=== PATIENT | male | born 1960 | race Caucasian/White ===

== ENCOUNTER → 2017-09-01 | Outpatient (CLI) | payer BC ==
[~2017-09-01] MED LIST: ALLP100T PO; ATEN25TA PO; LORA0.5T PO
--- NOTE | 2017-09-01 10:15 | Diagnostic Imaging Report ---
EXAMINATION: Upper and lower extremity pressure measurements of ankle/brachial index and pulse volume recording at the ankle. INDICATION: Claudication FINDINGS: The ankle/brachial index on the right side is 1.1, (1.1 PT, and 1.1 DP) and on the left is 1.1 (1.1 PT, and 1.1 DP). Pulse volume recording waveforms no significant abnormality. IMPRESSION: Normal ERASTO, bilaterally. Dictated by: Dictated on workstation # [id number]
--- NOTE | 2017-09-01 13:14 | Diagnostic Imaging Report ---
PROCEDURE: US Bilateral lower extremity arterial. TECHNIQUE: Multiple real-time grayscale images are obtained through both lower extremity arterial systems with color Doppler imaging and color Doppler spectral analysis. INDICATION: Peripheral arterial disease. FINDINGS: Grayscale images demonstrate no significant plaque in the femoropopliteal segments. Triphasic waveforms are demonstrated throughout the lower extremities bilaterally. Color-flow demonstrates patency of the lower extremity arteries from common femoral to posterior tibial and dorsalis pedis bilaterally. Normal range of velocities is seen in these vessels with no evidence of a underlying stenosis. IMPRESSION: Unremarkable exam. Dictated by: Dictated on workstation # [id number]
== END ==
LOC: RAD 08:16
PROVIDERS: ATTEND Internal Medicine
DX: I73.9 Peripheral vascular disease, unspecified (principal)
CPT/HCPCS: 93922; 93925

== ENCOUNTER 2019-05-24 16:00 | Inpatient (IN) | payer BC ==
[~2019-05-24] VITALS: Ht 188 cm; Wt 100.0 kg
[~2019-05-24 16:00] MED LIST changes: +PIPERACILLIN/TAZO 4.5 GM/NS 100 ML IV SCH
[2019-05-24] MEDS ORDERED: NS IV 1000 ML 1,000 ML IV SCH (17:43)
[2019-05-24] MEDS ORDERED: diphenhydrAMINE 25 MG TAB (BENADRYL) PO PRN (17:45)
[2019-05-24] MEDS ORDERED: CALCIUM CARBONATE 500 MG (TUMS) TAB.CHEW PO PRN (17:45)
[2019-05-24] MEDS ORDERED: LOPERAMIDE 2 MG (IMODIUM) TABLET PO PRN (17:45)
[2019-05-24] MEDS ORDERED: IBUPROFEN TABLET 200 MG TAB PO PRN (17:45)
[2019-05-24] MEDS ORDERED: LORazepam INJ 2 MG/ML (ATIVAN) VIAL IV PRN (17:45)
[2019-05-24] MEDS ORDERED: D5 1/2 NS 1000 ML IV SOLUTION 1,000 ML IV PRN (17:45)
[2019-05-24] MEDS ORDERED: fentaNYL INJECTION 100 MCG/2 ML AMP IVP PRN (17:45)
[2019-05-24] MEDS ORDERED: DOCUSATE SODIUM 100 MG (COLACE) CAP PO PRN (17:45)
[2019-05-24] MEDS ORDERED: ONDANSETRON 4 MG/2 ML (SDV) Z0FRAN IVP PRN (17:45)
[2019-05-24] MEDS ORDERED: ANTACID SUSP 30 ML UDC (MYLANTA) PO PRN (17:45)
[2019-05-24] MEDS ORDERED: MELATONIN 3 MG TABLET PO PRN (17:45)
[2019-05-24 17:58] VITALS: BP 158/82
--- NOTE | 2019-05-24 17:58 | NUR ---
KENJI CRAIG II admitted to room 432-1, with an admitting diagnosis of RIGHT GREAT TOES ULCER WITH ABSCESS, CELLULITIS, on 05/24/19 from DIRECT ADMIT via AMBULATORY, accompanied by SELF. KENJI CRAIG II introduced to surroundings, call light, bed controls, phone, TV, temperature control, lights, meal times, smoking policy, visitor policy, side rail policy, bathrooms and showers. Patient Rights given to patient in the handbook. KENJI CRAIG II verbalizes understanding that [facility] is not responsible for the loss or damage to any personal effects or valuables that are kept in the patients possession during their hospitalization. The following Patient Care Plans were discussed with the PATIENT: Discharge Planning, CELLULITIS,SUBSTANCE ABUSE: ALCOHOL, and KNOWLEDGE DEFICIT. KENJI CRAIG II verbalizes understanding of Interdisciplinary Patient Education. Patient and/or family were informed about the Rapid Response Team and its purpose.
[2019-05-24 18:34] LABS: BASOPHILS % (AUTO) 1 % (0-10); EOSINOPHILS # (AUTO) 0.3 10^3/uL (0.0-0.3); EOSINOPHILS % (AUTO) 4 % (0-10); HEMATOCRIT 41 % (40-54); HEMOGLOBIN 14.8 G/DL (13.3-17.7); LYMPHOCYTES # (AUTO) 2.2 X 10^3 (1.0-4.0); LYMPHOCYTES % (AUTO) 33 % (12-44); MEAN CORPUSCULAR HEMOGLOBIN 38 PG (25-34); MEAN CORPUSCULAR HGB CONC 36 G/DL (32-36); MEAN CORPUSCULAR VOLUME 108 FL (80-99); MEAN PLATELET VOLUME 9.5 FL (7.4-10.4); MONOCYTES # (AUTO) 0.7 X 10^3 (0.0-1.0); MONOCYTES % (AUTO) 10 % (0-12); NEUTROPHILS # (AUTO) 3.6 X 10^3 (1.8-7.8); NEUTROPHILS % (AUTO) 53 % (42-75); PLATELET COUNT 246 10^3/uL (130-400); RED CELL DISTRIBUTION WIDTH 15.6 % (10.0-14.5); WHITE BLOOD COUNT 6.7 10^3/uL (4.3-11.0)
[2019-05-24] MEDS: ENOXAPARIN 40 MG/0.4 ML (LOVENOX) SYR SC SCH (18:36)
[2019-05-24 18:54] LABS: ERYTHROCYTE SEDIMENTATION RATE 17 MM/HR (0-30)
[2019-05-24 18:56] LABS: ALANINE AMINOTRANSFERASE 27 U/L (0-55); ALBUMIN 3.6 GM/DL (3.2-4.5); ALKALINE PHOSPHATASE 130 U/L (40-136); BILIRUBIN,TOTAL 0.4 MG/DL (0.1-1.0); BUN/CREATININE RATIO 10; CALCIUM 8.6 MG/DL (8.5-10.1); CARBON DIOXIDE 28 MMOL/L (21-32); CHLORIDE 99 MMOL/L (98-107); CREATININE SERUM 0.59 MG/DL (0.60-1.30); GFR ESTIMATED > 60; GLUCOSE 98 MG/DL (70-105); POTASSIUM 2.8 MMOL/L (3.6-5.0); SODIUM 140 MMOL/L (135-145); TOTAL PROTEIN 6.7 GM/DL (6.4-8.2)
[2019-05-24] MEDS ORDERED: VANCOMYCIN INJECTION 2,250 MG in NS IV 500 ML 500 ML IV NR (19:00)
[2019-05-24 19:12] VITALS: BP 158/82
[2019-05-24] MEDS ORDERED: RT-ALBUTEROL SULF 2.5 MG/3 ML PRE-MIX VIAL INH PRN (19:30)
[2019-05-24] MEDS: PIPERACILLIN/TAZOBACTAM (BULK) 4.5 GM in NS (IVPB) 100 ML IV NR (19:45)
[2019-05-24 19:55] VITALS: BP 164/93
--- NOTE | 2019-05-24 20:53 | Progress Note - Hospitalist ---
Progress Note This is a 58-year-old white male clinic patient of mine for the past 10 years who has a past medical history of alcoholism, hypertension, anxiety and smoking with chronic neuropathy who presented to my clinic after he called for an urgent appointment for a gout attack so labs were drawn prior to appointment and when he arrived I evaluated the right great toe showing a significant ulceration with pustular drainage along with cellulitis of his entire foot spreading up his leg. He was found to be in need of IV antibiotics and Dr. Christie was consulted along with Dr. Gutiérrez for wound care and possible toe abscess respectively. He will be placed on empiric antibiotics provided pain control and he will be on alcohol withdrawal protocol. HARDY CAMPBELL DO May 24, 2019 20:52
[2019-05-24] MEDS: SENNA W/DOCUSATE (SENOKOT S) TABLET PO SCH (21:16)
--- NOTE | 2019-05-24 22:31 | Diagnostic Imaging Report ---
INDICATION: Right great toe ulcerations EXAMINATION: Right foot 05/24/19 FINDINGS: Three views of the foot Diffuse chronic findings seen throughout the foot with spurring along the dorsum of the midfoot. There are no acute fractures or dislocations. IMPRESSION: 1. Chronic findings. No acute osseous abnormality. Dictated by: Dictated on workstation # [id number]
--- NOTE | 2019-05-24 22:42 | Wound Care Assessment ---
Wound Care Assessment Date Seen by Provider: May 24, 2019 Time Seen by Provider: 21:45 Chief Complaint Infected R great toe ulcer. HPI The patient is a 58 year old male, with a long-standing history of neuropathy, and a three week history of ulceration of the R great toe. The [place] It evolved into a ulcer and worsened in the last week. He is a current everyday smoker and has a history of alcohol abuse. He has chronic edema of BLE, but it has worsened on the R. He denies diabetes. Past Medical History: Admits Heart Disease (arhythmia. 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 Review of Systems General: No Chills HEENT: No Visual Changes, No Dysphasia Pulmonary: No Dyspnea, No Cough Cardiovascular: Palpitations (Occasional when stressed.); No: Chest Pain Gastrointestinal: No: Nausea, Vomiting, Abdominal Pain Genitourinary: No Hematuria Musculoskeletal: No: leg pain Neurological: No: Weakness, Numbness Other systems Endocrine: denies diabetes. Integumentary: See HPI. Exam Vital Signs Date Time Temp Pulse Resp B/P (MAP) Pulse Ox O2 Delivery O2 Flow Rate FiO2 05/24/19 20:01 80 05/24/19 19:55 98.8 18 164/93 (116) 98 Room Air 05/24/19 19:12 21 Capillary Refill : General Appearance: WD/WN, no apparent distress HEENT: normal ENT inspection Neck: non-tender; No carotid bruit, No thyromegaly Cardiovascular: regular rate, rhythm, no gallop, no murmur Respiratory: lungs clear, no respiratory distress Gastrointestinal: normal bowel sounds, no organomegaly, distended Extremities: normal range of motion (at ankles), pedal edema (Extending up calf, worse on the R.), other (R great toe ulcer -- 2.8 x 5.3 x 0.2 cm, base 100% slough, full thickness, marked swelling and erythema.) Neurologic/Psychiatric: alert, normal mood/affect, oriented x 3 Skin: other (Hemosiderin staining and spider veins present in a gaiter distribution.) Results Laboratory Tests 05/24/19 18:25: White Blood Count 6.7, Red Blood Count 3.85L, Hemoglobin 14.8, Hematocrit 41, Mean Corpuscular Volume 108H, Mean Corpuscular Hemoglobin 38H, Mean Corpuscular Hemoglobin Concent 36, Red Cell Distribution Width 15.6H, Platelet Count 246, Mean Platelet Volume 9.5, Neutrophils (%) (Auto) 53, Lymphocytes (%) (Auto) 33, Monocytes (%) (Auto) 10, Eosinophils (%) (Auto) 4, Basophils (%) (Auto) 1, Neutrophils # (Auto) 3.6, Lymphocytes # (Auto) 2.2, Monocytes # (Auto) 0.7, Eosinophils # (Auto) 0.3, Basophils # (Auto) 0.0, Erythrocyte Sedimentation Rate 17, Sodium Level 140, Potassium Level 2.8L, Chloride Level 99, Carbon Dioxide Level 28, Anion Gap 13, Blood Urea Nitrogen 6L, Creatinine 0.59L, Estimat Glomerular Filtration Rate > 60, BUN/Creatinine Ratio 10, Glucose Level 98, Lactic Acid Level 2.95*H, Calcium Level 8.6, Corrected Calcium 8.9, Total Bilirubin 0.4, Aspartate Amino Transf (AST/SGOT) 46H, Alanine Aminotransferase (ALT/SGPT) 27, Alkaline Phosphatase 130, C-Reactive Protein High Sensitivity 3.34H, Total Protein 6.7, Albumin 3.6, Serum Alcohol 28H 05/24/19 20:43: Lactic Acid Level 2.00 Assessment/Plan/Dx 1. R great toe ulcer, full thickness. 2. Peripheral neuropathy, dense. 3. Tobacco abuse and dependency. 4. R/O atherosclerotic arterial occlusive disease. 5. History of alcohol abuse. Plan: Segmental arterial testing, Dakin's dressings, elevation for edema. PARVEEN GOEL MD May 24, 2019 22:42
[2019-05-24 23:38] VITALS: BP 151/80
[2019-05-24 23:40] VITALS: BP 151/80
[2019-05-25] MEDS: 1/2 NS IV SOLUTION 1,000 ML IV PRN (00:28)
[2019-05-25] MEDS: NS IV 1000 ML 1,000 ML IV SCH ×2 (00:30→09:48)
[2019-05-25] MEDS: PIPERACILLIN/TAZO 4.5 GM/NS 100 ML IV SCH ×6 (02:13→17:21)
[2019-05-25] MEDS: PIPERACILLIN/TAZOBACTAM (BULK) 4.5 GM in NS (IVPB) 100 ML IV NR (02:13)
[2019-05-25 04:00] VITALS: BP 158/86
[2019-05-25] MEDS: LORazepam 1 MG (ATIVAN) TAB PO PRN ×2 (05:22→14:47)
[2019-05-25 06:09] LABS: BASOPHILS % (AUTO) 1 % (0-10); EOSINOPHILS # (AUTO) 0.2 10^3/uL (0.0-0.3); EOSINOPHILS % (AUTO) 3 % (0-10); HEMATOCRIT 38 % (40-54); HEMOGLOBIN 13.8 G/DL (13.3-17.7); LYMPHOCYTES # (AUTO) 1.4 X 10^3 (1.0-4.0); LYMPHOCYTES % (AUTO) 24 % (12-44); MEAN CORPUSCULAR HEMOGLOBIN 39 PG (25-34); MEAN CORPUSCULAR HGB CONC 37 G/DL (32-36); MEAN CORPUSCULAR VOLUME 107 FL (80-99); MEAN PLATELET VOLUME 9.2 FL (7.4-10.4); MONOCYTES # (AUTO) 0.6 X 10^3 (0.0-1.0); MONOCYTES % (AUTO) 10 % (0-12); NEUTROPHILS # (AUTO) 3.7 X 10^3 (1.8-7.8); NEUTROPHILS % (AUTO) 63 % (42-75); PLATELET COUNT 209 10^3/uL (130-400); RED CELL DISTRIBUTION WIDTH 15.7 % (10.0-14.5)
[2019-05-25 06:39] LABS: ALANINE AMINOTRANSFERASE 22 U/L (0-55); ALBUMIN 3.1 GM/DL (3.2-4.5); ALKALINE PHOSPHATASE 116 U/L (40-136); BILIRUBIN,TOTAL 0.7 MG/DL (0.1-1.0); BUN/CREATININE RATIO 10; CARBON DIOXIDE 26 MMOL/L (21-32); CHLORIDE 104 MMOL/L (98-107); CREATININE SERUM 0.61 MG/DL (0.60-1.30); GFR ESTIMATED > 60; GLUCOSE 103 MG/DL (70-105); POTASSIUM 2.7 MMOL/L (3.6-5.0); SODIUM 142 MMOL/L (135-145); TOTAL PROTEIN 5.9 GM/DL (6.4-8.2)
[2019-05-25] MEDS: VANCOMYCIN 1,750 MG/NS 500 ML IVPB IV SCH ×4 (06:47→18:44)
[2019-05-25 08:00] VITALS: BP 166/87
[2019-05-25] MEDS ORDERED: POTA10TA10 PO (08:13)
[2019-05-25] MEDS ORDERED: LORA0.5T PO ×2 (08:13→08:44)
[2019-05-25] MEDS ORDERED: ATEN25TA PO (08:13)
[2019-05-25] MEDS ORDERED: ALLO100T PO (08:13)
[2019-05-25] MEDS ORDERED: HYDR-3812 PO (08:44)
--- NOTE | 2019-05-25 08:44 | NUR ---
SPOKE WITH THE PATIENT ABOUT HIS MEDICATIONS. WE WENT OVER THE EXT MED HX AND HE VERIFIED HOW HE TAKES THEM. HIS ALLOPURINOL WAS FILLED 100MG BID #60 05-20-19 - HE STATES HE ONLY TAKES 1 DAILY IN AM HIS LORAZEPAM IS FILLED BID, HE STATES HE NORMALLY ONLY TAKES ONE IN THE MORNING, OCCASIONALLY IF NEEDED HE TAKES THE SECOND DOSE LATER IN THE DAY. HE ALSO STATES HE HAS HYDROCODONE ON HAND. HE DOES NOT TAKE IT OFTEN BUT HAS BEEN TAKING IT MORE RECENTLY. ACCORDING TO [facility] HE FILLED 5-325MG #60 FOR A 20 DAY SUPPLY 04-20-18. HE STATES HE DOES NOT TAKE IT MORE THAN TWICE DAILY ON BAD PAIN DAYS.
[2019-05-25] MEDS: DAKIN'S 1/4 STRENGTH (0.125%) 473 ML BTL TOP SCH ×2 (09:48→21:52)
[2019-05-25] MEDS: SENNA W/DOCUSATE (SENOKOT S) TABLET PO SCH ×2 (09:48→21:51)
--- NOTE | 2019-05-25 10:58 | History & Physical-Hospitalist ---
History of Present Illness HPI/Chief Complaint CC: Right great toe ulcer with abscess and cellulitis HPI: This is a 58-year-old white male clinic patient of mine for the past 10 years who has a past medical history of alcoholism, hypertension, anxiety and smoking with chronic neuropathy who presented to my clinic after he called for an urgent appointment for a gout attack so labs were drawn prior to appointment and when he arrived I evaluated the right great toe showing a significant ulceration with pustular drainage along with cellulitis of his entire foot sp reading up his leg. He was found to be in need of IV antibiotics and Dr. Christie was consulted along with Dr. Gutiérrez for wound care and possible toe abscess respectively. He will be placed on empiric antibiotics provided pain control and he will be on alcohol withdrawal protocol. Patient is currently doing much better did have some anxiety early this morning and wanted a cigarette and I did offer nicotine patch but he declined. Overall his right foot and toe is much improved and arterial ultrasound is pending at time of dictation and understands the diagnosis sepsis and the need to continue on IV antibiotics with close monitoring. Source: patient Exam Limitations: no limitations Date Seen 05/25/19 Time Seen by a Provider: 10:00 Attending Physician Romana Martínez DO PCP Romana Martínez DO Referring Physician Date of Admission May 24, 2019 at 16:00 Home Medications & Allergies Home Medications Reviewed patient Home Medication Reconciliation performed by pharmacy medication reconciliations dental laboratory technician apprentice and/or nursing. Patients Allergies have been reviewed. Allergies Allergies Coded Allergies No Known Drug Allergies (Unverified05/24/19) Past Owqyzww-Jgfofd-Tejban Hx Past Med/Social Hx: Reviewed Nursing Past Med/Soc Hx, Reviewed and Corrections made Patient Social History Marrital Status: Employed/Student: employed Alcohol Use: Regular Use Number of Drinks Today: 1 Alcohol Beverage of Choice: Rum Recreational Drug Use: No Smoking Status: Current Everyday Smoker Physical Abuse Screen: No Sexual Abuse: No Recent Foreign Travel: No Contact w/other who traveled: No Recent Hopitalizations: No Recent Infectious Disease Expo: No Seasonal Allergies Seasonal Allergies: Yes Past Medical History Cardiac: Hypertension Neurological: Neuropathy Sexually Transmitted Disease: No HIV/AIDS: No Gastrointestinal: Chronic Diarrhea, Irritable Bowel Musculoskeletal: Gout Hearing Impairment: Hard of Hearing Psychosocial: Anxiety, Depression Family History FH: neuropathy 19 MOTHER Mitral valve prolapse 19 MOTHER Review of Systems Constitutional: see HPI, dizziness, fever, malaise, weakness EENTM: no symptoms reported Respiratory: no symptoms reported Cardiovascular: no symptoms reported Gastrointestinal: no symptoms reported Genitourinary: no symptoms reported Musculoskeletal: joint pain Skin: no symptoms reported Psychiatric/Neurological: Anxiety, Depressed All Other Systems Reviewed Negative Unless Noted: Yes Physical Exam Physical Exam Vital Signs Vital Signs - First Documented 05/24/19 19:12 FiO2 21 Capillary Refill : Height, Weight, BMI Height: 6'2.00" Weight: 219lbs. 0.0oz. 99.940156ay; 28.1 BMI Method:Stated General Appearance: No Apparent Distress, WD/WN, Chronically ill Eyes: Right Eye Normal Inspection, Right Eye PERRL HEENT: PERRL/EOMI, Normal ENT Inspection, Pharynx Normal, Moist Mucous Membr anes Neck: Full Range of Motion, Normal Inspection, Non Tender Respiratory: Chest Non Tender, Lungs Clear, Normal Breath Sounds, No Accessory Muscle Use, No Respiratory Distress Cardiovascular: Regular Rate, Rhythm, No Edema, No Gallop, No JVD, No Murmur, Normal Peripheral Pulses Gastrointestinal: Normal Bowel Sounds, No Organomegaly, No Pulsatile Mass, Non Tender, Soft Back: Normal Inspection, No CVA Tenderness, No Vertebral Tenderness Extremity: Normal Capillary Refill, Normal Inspection, Normal Range of Motion, Non Tender, No Calf Tenderness, No Pedal Edema Neurologic/Psychiatric: Alert, Oriented x3, No Motor/Sensory Deficits, Normal M ood/Affect Skin: Normal Color, Warm/Dry, Other (right foot and toe with ulceration and cellulitis and drainage from toe) Lymphatic: No Adenopathy Results Results/Procedures Labs Laboratory Tests 05/24/19 18:25 05/25/19 06:05 Patient resulted labs reviewed. Assessment/Plan Admission Diagnosis Assessment: Sepsis Right great toe ulceration with abscess and severe cellulitis rising up into the leg Severe neuropathy Alcoholism Smoker with small vessel disease Hypertension Anxiety Plan: Hep-locked IV fluids since sepsis is now cleared Empiric antibiotics Appreciate Dr. Christie and Dr. Gutiérrez Arterial ultrasound Check x-ray Admission Status: Inpatient Order (span 2 midnights) Reason for Inpatient Admission: Severe cellulitis and abscess formation. Are at least 4 days of inpatient treatment Diagnosis/Problems Diagnosis/Problems (1) Sepsis Status: Acute Qualifiers: Sepsis type: sepsis due to unspecified organism Qualified Codes: A41.9 - Sepsis, unspecified organism (2) Cellulitis of right lower leg Status: Acute (3) Abscess of toe, right Status: Acute (4) Hypertension Status: Chronic Qualifiers: Hypertension type: essential hypertension Qualified Codes: I10 - Essential (primary) hypertension (5) Anxiety Status: Chronic (6) Alcoholism Status: Chronic (7) Smoker Status: Chronic (8) Neuropathy Status: Chronic (9) Ulcer of great toe Status: Acute Qualifiers: Laterality: right Non-pressure ulcer stage: with fat layer exposed Quali fied Codes: L97.512 - Non-pressure chronic ulcer of other part of right foot with fat layer exposed Clinical Quality Measures DVT/VTE Risk/Contraindication: Risk Factor Score Per Nursin RFS Level Per Nursing on Admit: 2=Moderate Contraindications-Mechi: Other *list below* Other: cellulitis ROMANA MARTÍNEZ DO May 25, 2019 10:58
--- NOTE | 2019-05-25 11:17 | Diagnostic Imaging Report ---
INDICATION: Right toe ulcer. TECHNIQUE: Grayscale, color-flow and Duplex Doppler evaluation of the right lower extremity arterial system was performed. FINDINGS: There is atherosclerotic plaque throughout the right lower extremity arterial system. Predominantly monophasic waveforms are seen throughout. There is some velocity elevation of the right common femoral artery reaching 249 cm/s. No definite occlusion is seen. There is flow identified at the ankle via the dorsalis pedis and posterior tibial artery. IMPRESSION: Monophasic flow throughout the right lower extremity arterial system. This can be seen with a more proximal lesion. No high-grade stenosis or occlusion is detected. Dictated by: Dictated on workstation # [id number]
[2019-05-25 12:00] VITALS: BP 178/102
--- NOTE | 2019-05-25 13:24 | NUR ---
BP of 187/[address] Martínez, awaiting new orders at this time.
--- OUTSIDE RECORDS SUMMARY | 2019-05-25 13:24 | XMS REPORT | Clinical Summary ---
Author Author [facility] Address Unknown Phone Allergies, Adverse Reactions, Alerts Allergy Name Reaction Description Start Date Severity Status Provider No Known Allergies Kathy Luna Conditions or Problems Problem Name Problem Code Onset Date Status Entry Date Provider Comment Standard Description Annotate POLYARTHRALGIA 719.49 Active Romana Martínez Pain in joint involving multiple sites GOUT 274.9 Active Romana Martínez Gout, unspecified PALPITATIONS, OCCASIONAL 785.1 Active Romana Martínez Palpitations ANXIETY 300.00 Active Romana Martínez Anxiety state, unspecified DIARRHEA, RECURRENT 787.91 Resolved Romana Martínez Diarrhea HYPERHIDROSIS 780.8 Resolved Romana Martínez Generalized hyperhidrosis BURSITIS 727.3 Resolved Romana Martínez Other bursitis disorders KNEE PAIN 719.46 Resolved Romana Martínez Pain in joint involving lower leg HYPERTRIGLYCERIDEMIA 272.1 Active Romana Martínez Pure hyperglyceridemia SCIATICA/HERNIATED DISC 722.10 Active Romana Martínez Displacement of lumbar intervertebral disc without myelopathy ANEMIA, MACROCYTIC, CHRONIC 281.9 Resolved Romana Martínez Unspecified deficiency anemia ALCOHOL ABUSE 305.00 Active Romana Martínez Alcohol abuse, unspecified drinking behavior SMOKER 305.1 Active Romana Martínez Tobacco use disorder HEALTH SCREENING V70.0 Resolved Romana Martínez Routine general medical examination at a health care facility ACNE ROSACEA 695.3 Resolved Romana Martínez Rosacea HEALTH SCREENING V70.0 Inactive Romana Martínez Routine general medical examination at a health care facility HYPOKALEMIA 276.8 Active Romana Martínez Hypopotassemia LIVER FUNCTION TESTS, ABNORMAL 794.8 Active Romana Martínez Nonspecific abnormal results of function study of liver OTITIS MEDIA 382.9 Active Romana Martínez Unspecified otitis media LOSS, 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 Romana Martínez Mixed conductive and sensorineural hearing loss COUGH 786.2 Active Romana Martínez Cough Medication List Medication Instructions Start Date Stop Date Generic Name NDC Status Provider Patient Instruction K-TAB 20 MEQ CR-TABS 1 PO daily POTASSIUM CHLORIDE 95716514208 Active Romana Martínez HYDROCODONE-ACETAMINOPHEN 7.5-325 MG TABS 1 tab po q 4-6 hrs prn HYDROCODONE-ACETAMINOPHEN 74857828360 Active Romana Martínez TEMAZEPAM 15 MG CAPS 1 PO BID prn TEMAZEPAM 20824702250 No Longer Active Romana Martínez VENLAFAXINE HCL 75 MG TABS 1 PO BID VENLAFAXINE HCL 78548995185 No Longer Active Romana Martínez HYDROCODONE-ACETAMINOPHEN 7.5-325 MG TABS 1 PO Q4-6 hrs prn pain HYDROCODONE-ACETAMINOPHEN 61533017648 No Longer Active Romana Martínez METROGEL 1 % GEL Apply to affected areas on face daily as directed METRONIDAZOLE 14224022598 No Longer Active Romana Martínez SOMA 350 MG TAB 1 PO QHS prn CARISOPRODOL 44069710904 No Longer Active Romana Martínez DOXYCYCLINE HYCLATE 100 MG CAP 1 po BID DOXYCYCLINE HYCLATE 10377816485 No Longer Active Romana Martínez SOMA 350 MG TAB 1 PO TID prn pain CARISOPRODOL 95296581582 No Longer Active Romana Martínez ALLOPURINOL 100 MG TABS 1 PO BID ALLOPURINOL 32840714352 Active Romana Martínez COLCHICINE 0.6 MG TAB 1 PO every 2 hours as needed for Gout attack. Maximum 10 tablets per day. COLCHICINE 03596216060 No Longer Active Romana Martínez ULORIC 40 MG TABS 1 PO daily FEBUXOSTAT 47552460487 No Longer Active Romana Martínez MULTIVITAMINS TABS 1 PO daily MULTIPLE VITAMIN 16555636038 Active Romana Martínez LORAZEPAM 0.5 MG TABS 1 PO BID LORAZEPAM 47644125255 Active Rowan Chapa ALLOPURINOL 100 MG TABS 1 PO BID ALLOPURINOL 95335606059 No Longer Active Rowan Chapa ATENOLOL 25 MG TABS 1 PO daily ATENOLOL 87085878648 Active Romana Martínez Vital Signs Date Name Value Unit Range Description blood pressure, diastolic - 8462-4 70 mm[Hg] BP samuel blood pressure, systolic - 8480-6 140 mm[Hg] BP sys pulse rate E&M - 8867-4 60 /min Heart rate respiratory rate E&M - 9279-1 14 /min Resp rate temperature E&M 97.8 [degF] Body temperature weight E&M - 3141-9 190 [lb_av] Weight Measured blood pressure, diastolic - 8462-4 75 mm[Hg] BP samuel blood pressure, systolic - 8480-6 140 mm[Hg] BP sys pulse rate E&M - 8867-4 90 /min Heart rate respiratory rate E&M - 9279-1 14 /min Resp rate temperature E&M 97.2 [degF] Body temperature weight E&M - 3141-9 205 [lb_av] Weight Measured blood pressure, diastolic - 8462-4 80 mm[Hg] BP samuel blood pressure, systolic - 8480-6 134 mm[Hg] BP sys height E&M - 8302-2 74 [in_us] Bdy height pulse rate E&M - 8867-4 80 /min Heart rate respiratory rate E&M - 9279-1 14 /min Resp rate weight E&M - 3141-9 191 [lb_av] Weight Measured Diagnostic Results Date Name Value Unit Range Description Clinical Lists Update: CBC,CMP,FLP - Chemistry albumin, serum 4.3 g/dL potassium, serum 2.9 mmol/L alkaline phosphatase, serum 129 U/L glucose, plasma fasting 102 mg/dL urea nitrogen, blood 8 mg/dL cholesterol/HDL ratio, serum, percent 2.5 calcium, serum 8.7 mg/dL anion gap, serum 11 chloride, serum 100 mmol/L sodium, serum 140 mmol/L cholesterol, serum 130 mg/dL triglyceride, serum, fasting 226 mg/dL carbon dioxide, venous blood 32.0 mmol/L bilirubin, serum, total 1.2 mg/dL creatinine, serum 0.5 mg/dL alanine aminotransferase (SGPT), serum 32 U/L HDL cholesterol, serum 51.0 mg/dL aspartate aminotransferase (SGOT), serum 48 U/L LDL cholesterol, serum 34 mg/dL protein, total, serum 6.9 g/dL Estimated Glomerular Filtration Rate (calc) 177 mL/min/1.73m2 Clinical Lists Update: CBC,CMP,FLP - Hematology hemoglobin, blood 16.4 g/dL hematocrit, blood 49 % platelet count 181 10*3/mm3 erythrocyte (RBC) count 4.39 10*6/mm3 leukocyte count, blood 10.2 10*3/mm3 mean corpuscular volume, RBC 113 fL red blood cell distribution width 14.9 % Clinical Lists Update: CMP,FLP,TSH - Chemistry alanine aminotransferase (SGPT), serum 40 U/L potassium, serum 2.9 mmol/L bilirubin, serum, total 0.7 mg/dL cholesterol, serum 156 mg/dL triglyceride, serum, fasting 239 mg/dL chloride, serum 98 mmol/L sodium, serum 137 mmol/L calcium, serum 9.0 mg/dL anion gap, serum 13 urea nitrogen, blood 13 mg/dL cholesterol/HDL ratio, serum, percent 3.5 alkaline phosphatase, serum 113 U/L glucose, plasma fasting 99 mg/dL albumin, serum 4.2 g/dL Estimated Glomerular Filtration Rate (calc) 170 mL/min/1.73m2 creatinine, serum 0.5 mg/dL aspartate aminotransferase (SGOT), serum 64 U/L HDL cholesterol, serum 45.0 mg/dL thyroid stimulating hormone, serum 1.72 u[iU]/mL protein, total, serum 7.0 g/dL LDL cholesterol, serum 63 mg/dL carbon dioxide, venous blood 29.0 mmol/L Encounters Code Encounter Date Provider Facility CPT-83848 Ofc Vst, Est Level IV 20:22:56 MILLING MACHINE OPERATOR Romana Quiana Mauricio Martínez, DO, FACP CPT-59327 Ofc Vst, Est Level IV 19:32:49 MILLING MACHINE OPERATOR Rmoana Quianaromán Martí[facility] CPT-37195 Ofc Vst, Est Level IV 18:44:46 CDT Romana Quiana Mauricio Martínez, DO, FACP CPT-33868 Ofc Vst, Est Level III 15:59:28 CDT Romanabethel Martínez DO, FACP CPT-13462 Ofc Vst, Est Level III 17:18:17 CDT Romanabethel Martínez DO, FACP CPT-73501 Ofc Vst, Est Level IV 16:44:08 CDT Romanabethel Martínez, DO, FACP CPT-87876 Ofc Vst, Est Level III 14:53:29 CDT Romanabethel Martínez [facility] CPT-03690 Ofc Vst, Est Level IV 11:21:31 MILLING MACHINE OPERATOR Romana Martínez, DO, FACP CPT-10415 Ofc Vst, Est Level IV 11:23:00 CDT Romanabethel Martínez, DO, FACP CPT-12922 Ofc Vst, Est Level IV 16:02:44 CDT Romanabethel Martínez [facility] CPT-18899 Ofc Vst, Est Level IV 16:15:02 CDT Romanabethel Martínez, DO, FACP CPT-46456 Ofc Vst, Est Level IV 10:20:04 CDT Romanabethel Martínez, DO, FACP CPT-83953 Ofc Vst, Est Level IV 16:24:53 [facility] Ofc Vst, New Level IV 16:07:20 CDT [facility] Procedures Code Procedure Name Date Entry Date Standard Description CPT-62254 Preventive, Est, (40-64) 13:45:44 MILLING MACHINE OPERATOR CPT-28871 Preventive, Est, (40-64) 13:14:51 MILLING MACHINE OPERATOR
--- OUTSIDE RECORDS SUMMARY | 2019-05-25 13:24 | XMS REPORT | Clinical Summary ---
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 Romana Martínez Impotence of organic origin Medication List Medication Instructions Start Date Stop Date Generic Name NDC Status Provider Patient Instruction VIAGRA 50 MG TABS 1 PO as directed SILDENAFIL CITRATE 64399162360 Active Romana Martínez K-TAB 20 MEQ CR-TABS 1 PO daily POTASSIUM CHLORIDE 27933583287 Active Romana Martínez HYDROCODONE-ACETAMINOPHEN 7.5-325 MG TABS 1 tab po q 4-6 hrs prn HYDROCODONE-ACETAMINOPHEN 58373267911 Active Romana Martínez TEMAZEPAM 15 MG CAPS 1 PO BID prn TEMAZEPAM 83034146416 No Longer Active Romana Martínez VENLAFAXINE HCL 75 MG TABS 1 PO BID VENLAFAXINE HCL 22995072447 No Longer Active Romana Martínez HYDROCODONE-ACETAMINOPHEN 7.5-325 MG TABS 1 PO Q4-6 hrs prn pain HYDROCODONE-ACETAMINOPHEN 29947546204 No Longer Active Romanabethel Martínez METROGEL 1 % GEL Apply to affected areas on face daily as directed METRONIDAZOLE 51867749223 No Longer Active Romanabethel Martínez SOMA 350 MG TAB 1 PO QHS prn CARISOPRODOL 66485332802 No Longer Active Romana Martínez DOXYCYCLINE HYCLATE 100 MG CAP 1 po BID DOXYCYCLINE HYCLATE 86423930528 No Longer Active Romanabethel Martínez SOMA 350 MG TAB 1 PO TID prn pain CARISOPRODOL 51494080148 No Longer Active Romana Martínez ALLOPURINOL 100 MG TABS 1 PO BID ALLOPURINOL 49744451438 Active Romana Martínez COLCHICINE 0.6 MG TAB 1 PO every 2 hours as needed for Gout attack. Maximum 10 tablets per day. COLCHICINE 79845982645 No Longer Active Romana Martínez ULORIC 40 MG TABS 1 PO daily FEBUXOSTAT 28619791989 No Longer Active Romana Martínez MULTIVITAMINS TABS 1 PO daily MULTIPLE VITAMIN 72995319134 Active Romana Martínez LORAZEPAM 0.5 MG TABS 1 PO BID LORAZEPAM 97966476711 Active Rowan Chapa ALLOPURINOL 100 MG TABS 1 PO BID ALLOPURINOL 47711491472 No Longer Active Rowan Chapa ATENOLOL 25 MG TABS 1 PO daily ATENOLOL 20524924804 Active Romana Martínez Vital Signs Date Name Value Unit Range Description blood pressure, diastolic - 8462-4 70 mm[Hg] BP samuel blood pressure, systolic - 8480-6 130 mm[Hg] BP sys pulse rate E&M - 8867-4 78 /min Heart rate respiratory rate E&M - 9279-1 14 /min Resp rate weight E&M - 3141-9 198 [lb_av] Weight Measured blood pressure, diastolic - 8462-4 70 mm[Hg] [...] Description Clinical Lists Update: CBC,CMP,FLP - Chemistry Estimated Glomerular Filtration Rate (calc) 177 mL/min/1.73m2 albumin, serum 4.3 g/dL cholesterol/HDL ratio, serum, percent 2.5 anion gap, serum 11 sodium, serum 140 mmol/L triglyceride, serum, fasting 226 mg/dL bilirubin, serum, total 1.2 mg/dL alanine aminotransferase (SGPT), serum 32 U/L aspartate aminotransferase (SGOT), serum 48 U/L protein, total, serum 6.9 g/dL potassium, serum 2.9 mmol/L LDL cholesterol, serum 34 mg/dL HDL cholesterol, serum 51.0 mg/dL creatinine, serum 0.5 mg/dL carbon dioxide, venous blood 32.0 mmol/L cholesterol, serum 130 mg/dL chloride, serum 100 mmol/L calcium, serum 8.7 mg/dL urea nitrogen, blood 8 mg/dL alkaline phosphatase, serum 129 U/L glucose, plasma fasting 102 mg/dL Clinical Lists Update: CBC,CMP,FLP - Hematology red blood cell distribution width 14.9 % mean corpuscular volume, RBC 113 fL leukocyte count, blood 10.2 10*3/mm3 erythrocyte (RBC) count 4.39 10*6/mm3 platelet count 181 10*3/mm3 hemoglobin, blood 16.4 g/dL hematocrit, blood 49 % Clinical Lists Update: CMP,Chol,Trig - Chemistry anion gap, serum 10 sodium, serum 137 mmol/L Estimated Glomerular Filtration Rate (calc) 177 mL/min/1.73m2 albumin, serum 4.4 g/dL alkaline phosphatase, serum 130 U/L urea nitrogen, blood 8 mg/dL calcium, serum 9.3 mg/dL chloride, serum 99 mmol/L cholesterol, serum 158 mg/dL carbon dioxide, venous blood 31.0 mmol/L creatinine, serum 0.5 mg/dL potassium, serum 3.4 mmol/L protein, total, serum 7.0 g/dL aspartate aminotransferase (SGOT), serum 91 U/L alanine aminotransferase (SGPT), serum 53 U/L bilirubin, serum, total 1.0 mg/dL triglyceride, serum, fasting 305 mg/dL glucose, plasma fasting 97 mg/dL Clinical Lists Update: CMP,FLP,TSH - Chemistry calcium, serum 9.0 mg/dL urea nitrogen, blood 13 mg/dL alkaline phosphatase, serum 113 U/L chloride, serum 98 mmol/L cholesterol, serum 156 mg/dL carbon dioxide, venous blood 29.0 mmol/L creatinine, serum 0.5 mg/dL HDL cholesterol, serum 45.0 mg/dL thyroid stimulating hormone, serum 1.72 u[iU]/mL LDL cholesterol, serum 63 mg/dL potassium, serum 2.9 mmol/L protein, total, serum 7.0 g/dL aspartate aminotransferase (SGOT), serum 64 U/L alanine aminotransferase (SGPT), serum 40 U/L bilirubin, serum, total 0.7 mg/dL triglyceride, serum, fasting 239 mg/dL sodium, serum 137 mmol/L anion gap, serum 13 cholesterol/HDL ratio, serum, percent 3.5 albumin, serum 4.2 g/dL Estimated Glomerular Filtration Rate (calc) 170 mL/min/1.73m2 glucose, plasma fasting 99 mg/dL Encounters Code Encounter Date Provider Facility CPT-81231 Ofc Vst, Est Level IV 20:22:56 AUTOMOTIVE PAINT TECHNICIAN Romanabethel Mesa Mauricio, DO, FACP CPT-33302 Ofc Vst, Est Level IV 19:32:49 AUTOMOTIVE PAINT TECHNICIAN Romana Martínez [facility] CPT-17361 Ofc Vst, Est Level IV 18:44:46 CDT Romana Quiana Mesa Mauricio, DO, FACP CPT-01689 Ofc Vst, Est Level III 15:59:28 CDT Romana Quiana Mesa Mauricio, DO, FACP CPT-26608 Ofc Vst, Est Level III 17:18:17 CDT Romana Quiana Mesa Mauricio, DO, FACP CPT-48619 Ofc Vst, Est Level IV 16:44:08 CDT Romana Quiana Mesa Mauricio, DO, FACP CPT-20596 Ofc Vst, Est Level III 14:53:29 CDT Romanabethel Martínez [facility] CPT-84810 Ofc Vst, Est Level IV 11:21:31 AUTOMOTIVE PAINT TECHNICIAN Romana Mesa Mauricio, DO, FACP CPT-41389 Ofc Vst, Est Level IV 11:23:00 CDT Romanabethel Mesa Mauricio, DO, FACP CPT-80464 Ofc Vst, Est Level IV 16:02:44 CDT Romanabethel Martínez [facility] CPT-67616 Ofc Vst, Est Level IV 16:15:02 CDT Romanabethel Mesa Mauricio, DO, FACP CPT-91205 Ofc Vst, Est Level IV 10:20:04 CDT Romanabethel Mesa Mauricio, DO, FACP CPT-83634 Ofc Vst, Est Level IV 16:24:53 CDT Romanabethel Martínez [facility] CPT-71847 Ofc Vst, New Level IV 16:07:20 CDT Romana [facility] Procedures Code Procedure Name Date Entry Date Standard Description CPT-33043 Preventive, Est, (40-64) 17:11:22 CDT CPT-81513 Preventive, Est, (40-64) 13:45:44 AUTOMOTIVE PAINT TECHNICIAN CPT-94995 Preventive, Est, (40-64) 13:14:51 AUTOMOTIVE PAINT TECHNICIAN
--- OUTSIDE RECORDS SUMMARY | 2019-05-25 13:24 | XMS REPORT | Clinical Summary ---
Author Author UserRADHA [facility] Address Unknown Phone Allergies, Adverse Reactions, [...] TABS 1 PO as directed SILDENAFIL CITRATE 06378165504 Active Romana Martínez K-TAB 20 MEQ CR-TABS 1 PO daily POTASSIUM CHLORIDE 76310072051 Active Romana Martínez HYDROCODONE-ACETAMINOPHEN 7.5-325 MG TABS 1 tab po q 4-6 hrs prn HYDROCODONE-ACETAMINOPHEN 87918167685 Active Romana Martínez TEMAZEPAM 15 MG CAPS 1 PO BID prn TEMAZEPAM 14118239013 No Longer Active Romana Martínez VENLAFAXINE HCL 75 MG TABS 1 PO BID VENLAFAXINE HCL 67551079293 No Longer Active Romana Martínez HYDROCODONE-ACETAMINOPHEN 7.5-325 MG TABS 1 PO Q4-6 hrs prn pain HYDROCODONE-ACETAMINOPHEN 11148958908 No Longer Active Romanabethel Martínez METROGEL 1 % GEL Apply to affected areas on face daily as directed METRONIDAZOLE 13273677990 No Longer Active Romanabethel Martínez SOMA 350 MG TAB 1 PO QHS prn CARISOPRODOL 80328568615 No Longer Active Romana Martínez DOXYCYCLINE HYCLATE 100 MG CAP 1 po BID DOXYCYCLINE HYCLATE 31670554786 No Longer Active Romanabethel Martínez SOMA 350 MG TAB 1 PO TID prn pain CARISOPRODOL 67041859994 No Longer Active Romana Martínez ALLOPURINOL 100 MG TABS 1 PO BID ALLOPURINOL 09044904361 Active oRmana Martínez COLCHICINE 0.6 MG TAB 1 PO every 2 hours as needed for Gout attack. Maximum 10 tablets per day. COLCHICINE 83223565456 No Longer Active Romana Martínez ULORIC 40 MG TABS 1 PO daily FEBUXOSTAT 07898380315 No Longer Active Roamna Martínez MULTIVITAMINS TABS 1 PO daily MULTIPLE VITAMIN 49321208631 Active Romana Martínez LORAZEPAM 0.5 MG TABS 1 PO BID LORAZEPAM 98227921453 Active Rowan Chapa ALLOPURINOL 100 MG TABS 1 PO BID ALLOPURINOL 47104572858 No Longer Active Rowan Chapa ATENOLOL 25 MG TABS 1 PO daily ATENOLOL 95948020417 Active Romana Martínez Vital Signs Date Name [...] mg/dL Encounters Code Encounter Date Provider Facility CPT-47184 Ofc Vst, Est Level IV 20:22:56 POWDER EXPERT Romanabethel Mesa Mauricio, DO, FACP CPT-21097 Ofc Vst, Est Level IV 19:32:49 POWDER EXPERT Romana Martínez [facility] CPT-48393 Ofc Vst, Est Level IV 18:44:46 CDT Romana Quiana Mesa Mauricio, DO, FACP CPT-92790 Ofc Vst, Est Level III 15:59:28 CDT Romana Quiana Mesa Mauricio, DO, FACP CPT-10845 Ofc Vst, Est Level III 17:18:17 CDT Romana Quiana Mesa Mauricio, DO, FACP CPT-36885 Ofc Vst, Est Level IV 16:44:08 CDT Romana Quiana Mesa Mauricio, DO, FACP CPT-55445 Ofc Vst, Est Level III 14:53:29 CDT Romanabethel Martínez [facility] CPT-57128 Ofc Vst, Est Level IV 11:21:31 POWDER EXPERT Romana Mesa Mauricio, DO, FACP CPT-07243 Ofc Vst, Est Level IV 11:23:00 CDT Romanabethel Mesa Mauricio, DO, FACP CPT-03877 Ofc Vst, Est Level IV 16:02:44 CDT Romanabethel Martínez [facility] CPT-06123 Ofc Vst, Est Level IV 16:15:02 CDT Romanabethel Mesa Mauricio, DO, FACP CPT-95303 Ofc Vst, Est Level IV 10:20:04 CDT Romanabethel eMsa Mauricio, DO, FACP CPT-55530 Ofc Vst, Est Level IV 16:24:53 CDT Romanabethel Martínez [facility] CPT-51338 Ofc Vst, New Level IV 16:07:20 CDT Rom[facility] Procedures Code Procedure Name Date Entry Date Standard Description CPT-34617 Preventive, Est, (40-64) 17:11:22 CDT CPT-51315 Preventive, Est, (40-64) 13:45:44 POWDER EXPERT CPT-29614 Preventive, Est, (40-64) 13:14:51 POWDER EXPERT
--- OUTSIDE RECORDS SUMMARY | 2019-05-25 13:25 | XMS REPORT | Clinical Summary ---
Author Author UserRADHA [place] [facility] Address Unknown Phone Allergies, Adverse Reactions, [...] MEQ CR-TABS 1 PO daily POTASSIUM CHLORIDE 00036907941 Active Romana Martínez HYDROCODONE-ACETAMINOPHEN 7.5-325 MG TABS 1 tab po q 4-6 hrs prn HYDROCODONE-ACETAMINOPHEN 16817084681 Active Romana Martínez TEMAZEPAM 15 MG CAPS 1 PO BID prn TEMAZEPAM 82906524602 No Longer Active Romana Martínez VENLAFAXINE HCL 75 MG TABS 1 PO BID VENLAFAXINE HCL 20472444901 No Longer Active Romana Martínez HYDROCODONE-ACETAMINOPHEN 7.5-325 MG TABS 1 PO Q4-6 hrs prn pain HYDROCODONE-ACETAMINOPHEN 95450892640 No Longer Active Romana Martínez METROGEL 1 % GEL Apply to affected areas on face daily as directed METRONIDAZOLE 36062189664 No Longer Active Romana Martínez SOMA 350 MG TAB 1 PO QHS prn CARISOPRODOL 87320030925 No Longer Active Romana Martínez DOXYCYCLINE HYCLATE 100 MG CAP 1 po BID DOXYCYCLINE HYCLATE 30756614176 No Longer Active Romana Martínez SOMA 350 MG TAB 1 PO TID prn pain CARISOPRODOL 99341948110 No Longer Active Romana Martínez ALLOPURINOL 100 MG TABS 1 PO BID ALLOPURINOL 24998017410 Active Romana Martínez COLCHICINE 0.6 MG TAB 1 PO every 2 hours as needed for Gout attack. Maximum 10 tablets per day. COLCHICINE 34233043811 No Longer Active Romana Martínez ULORIC 40 MG TABS 1 PO daily FEBUXOSTAT 79917848828 No Longer Active Romana Martínez MULTIVITAMINS TABS 1 PO daily MULTIPLE VITAMIN 12291566007 Active Romana Martínez LORAZEPAM 0.5 MG TABS 1 PO BID LORAZEPAM 66765388644 Active Rowan Chapa ALLOPURINOL 100 MG TABS 1 PO BID ALLOPURINOL 96665812843 No Longer Active Rowan Chapa ATENOLOL 25 MG TABS 1 PO daily ATENOLOL 10538121304 Active Romana Martínez Vital Signs Date Name [...] mg/dL Encounters Code Encounter Date Provider Facility CPT-51552 Ofc Vst, Est Level IV 20:22:56 TRAVEL REGISTERED NURSE NICU Romana Martínez DO, FACP CPT-87117 Ofc Vst, Est Level IV 19:32:49 TRAVEL REGISTERED NURSE NICU Romana Martínez [facility] CPT-60376 Ofc Vst, Est Level IV 18:44:46 CDT Romana Martínez DO, FACP CPT-17580 Ofc Vst, Est Level III 15:59:28 CDT Romana Martínez DO, FACP CPT-64046 Ofc Vst, Est Level III 17:18:17 CDT Romana Martínez DO, FACP CPT-88711 Ofc Vst, Est Level IV 16:44:08 CDT Romanabethel Mesa Mauricio, DO, FACP CPT-90780 Ofc Vst, Est Level III 14:53:29 CDT Romana Quiana Martínez [facility] CPT-02484 Ofc Vst, Est Level IV 11:21:31 TRAVEL REGISTERED NURSE NICU Romanabethel Mesa Mauricio, DO, FACP CPT-58666 Ofc Vst, Est Level IV 11:23:00 CDT Romanabethel Mesa Mauricio, DO, FACP CPT-97545 Ofc Vst, Est Level IV 16:02:44 CDT [facility] Quiana Martínez [place] CPT-87634 Ofc Vst, Est Level IV 16:15:02 CDT Romanabethel Mesa Mauricio, DO, FACP CPT-09764 Ofc Vst, Est Level IV 10:20:04 CDT Romana Quiana Mesa Mauricio, DO, FACP CPT-70772 Ofc Vst, Est Level IV 16:24:53 CDT [facility] Quiana Martínez [facility] CPT-80410 Ofc Vst, New Level IV 16:07:20 CDT [facility] Quiana Martínez [place] Procedures Code Procedure Name Date Entry Date Standard Description CPT-06863 Preventive, Est, (40-64) 13:45:44 TRAVEL REGISTERED NURSE NICU CPT-32700 Preventive, Est, (40-64) 13:14:51 TRAVEL REGISTERED NURSE NICU
--- OUTSIDE RECORDS SUMMARY | 2019-05-25 13:25 | XMS REPORT | Clinical Summary ---
Author Author UserRADHA [place] [facility] Address Unknown Phone Allergies, Adverse Reactions, [...] MEQ CR-TABS 1 PO daily POTASSIUM CHLORIDE 80388515128 Active Romana Martínez HYDROCODONE-ACETAMINOPHEN 7.5-325 MG TABS 1 tab po q 4-6 hrs prn HYDROCODONE-ACETAMINOPHEN 02402810955 Active Romana Martínez TEMAZEPAM 15 MG CAPS 1 PO BID prn TEMAZEPAM 04099388919 No Longer Active Romana Martínez VENLAFAXINE HCL 75 MG TABS 1 PO BID VENLAFAXINE HCL 53921057469 No Longer Active Romana Martínez HYDROCODONE-ACETAMINOPHEN 7.5-325 MG TABS 1 PO Q4-6 hrs prn pain HYDROCODONE-ACETAMINOPHEN 99958713515 No Longer Active Romana Martínez METROGEL 1 % GEL Apply to affected areas on face daily as directed METRONIDAZOLE 21856148712 No Longer Active Romana Martínez SOMA 350 MG TAB 1 PO QHS prn CARISOPRODOL 09927146805 No Longer Active Romana Martínez DOXYCYCLINE HYCLATE 100 MG CAP 1 po BID DOXYCYCLINE HYCLATE 99513712906 No Longer Active Romana Martínez SOMA 350 MG TAB 1 PO TID prn pain CARISOPRODOL 04037751925 No Longer Active Romana Martínez ALLOPURINOL 100 MG TABS 1 PO BID ALLOPURINOL 56287772756 Active Romana Martínez COLCHICINE 0.6 MG TAB 1 PO every 2 hours as needed for Gout attack. Maximum 10 tablets per day. COLCHICINE 11124939536 No Longer Active Romana Martínez ULORIC 40 MG TABS 1 PO daily FEBUXOSTAT 14905533881 No Longer Active Romana Martínez MULTIVITAMINS TABS 1 PO daily MULTIPLE VITAMIN 47449330872 Active Romana Martínez LORAZEPAM 0.5 MG TABS 1 PO BID LORAZEPAM 36738651119 Active Rowan Chapa ALLOPURINOL 100 MG TABS 1 PO BID ALLOPURINOL 25007143907 No Longer Active Rowan Chapa ATENOLOL 25 MG TABS 1 PO daily ATENOLOL 67339010095 Active Romana Martínez Vital Signs Date Name [...] mmol/L Encounters Code Encounter Date Provider Facility CPT-63257 Ofc Vst, Est Level IV 20:22:56 SENIOR SOFTWARE TEST ENGINEER Romana Quiana Mauricio Martínez, DO, FACP CPT-49325 Ofc Vst, Est Level IV 19:32:49 SENIOR SOFTWARE TEST ENGINEER Romana Quianaromán Martínez [facility] CPT-18567 Ofc Vst, Est Level IV 18:44:46 CDT Romana Quiana Mauricio Martínez, DO, FACP CPT-62273 Ofc Vst, Est Level III 15:59:28 CDT Romanabethel Martínez DO, FACP CPT-96498 Ofc Vst, Est Level III 17:18:17 CDT Romanabethel Martínez DO, FACP CPT-84094 Ofc Vst, Est Level IV 16:44:08 CDT Romanabethel Martínez, DO, FACP CPT-47889 Ofc Vst, Est Level III 14:53:29 CDT Romanabethel Martínez [facility] CPT-90746 Ofc Vst, Est Level IV 11:21:31 SENIOR SOFTWARE TEST ENGINEER Romana Martínez, DO, FACP CPT-05499 Ofc Vst, Est Level IV 11:23:00 CDT Romanabethel Martínez, DO, FACP CPT-99644 Ofc Vst, Est Level IV 16:02:44 CDT Romanabethel Martínez [facility] CPT-28134 Ofc Vst, Est Level IV 16:15:02 CDT Romanabethel Martínez, DO, FACP CPT-84280 Ofc Vst, Est Level IV 10:20:04 CDT Romanabethel Martínez, DO, FACP CPT-20768 Ofc Vst, Est Level IV 16:24:53 [facility] C[facility]-91503 Ofc Vst, New Level IV 16:07:20 CDT [facility] Procedures Code Procedure Name Date Entry Date Standard Description CPT-23558 Preventive, Est, (40-64) 13:45:44 SENIOR SOFTWARE TEST ENGINEER CPT-86124 Preventive, Est, (40-64) 13:14:51 SENIOR SOFTWARE TEST ENGINEER
--- OUTSIDE RECORDS SUMMARY | 2019-05-25 13:25 | XMS REPORT | Clinical Summary ---
Author Author UserRADHA [place] [facility] Address Unknown Phone Allergies, Adverse Reactions, [...] MEQ CR-TABS 1 PO daily POTASSIUM CHLORIDE 61614835520 Active Romana Martínez HYDROCODONE-ACETAMINOPHEN 7.5-325 MG TABS 1 tab po q 4-6 hrs prn HYDROCODONE-ACETAMINOPHEN 74993540878 Active Romana Martínez TEMAZEPAM 15 MG CAPS 1 PO BID prn TEMAZEPAM 09017837793 No Longer Active Romana Martínez VENLAFAXINE HCL 75 MG TABS 1 PO BID VENLAFAXINE HCL 49118728382 No Longer Active Romana Martínez HYDROCODONE-ACETAMINOPHEN 7.5-325 MG TABS 1 PO Q4-6 hrs prn pain HYDROCODONE-ACETAMINOPHEN 22670438326 No Longer Active Romana Martínez METROGEL 1 % GEL Apply to affected areas on face daily as directed METRONIDAZOLE 93880502567 No Longer Active Romana Martínez SOMA 350 MG TAB 1 PO QHS prn CARISOPRODOL 80337657397 No Longer Active Romana Martínez DOXYCYCLINE HYCLATE 100 MG CAP 1 po BID DOXYCYCLINE HYCLATE 16421399232 No Longer Active Romana Martínez SOMA 350 MG TAB 1 PO TID prn pain CARISOPRODOL 85850967676 No Longer Active Romana Martínez ALLOPURINOL 100 MG TABS 1 PO BID ALLOPURINOL 57623107716 Active Romana Martínez COLCHICINE 0.6 MG TAB 1 PO every 2 hours as needed for Gout attack. Maximum 10 tablets per day. COLCHICINE 21215148570 No Longer Active Romana Martínez ULORIC 40 MG TABS 1 PO daily FEBUXOSTAT 83901367906 No Longer Active Romana Martínez MULTIVITAMINS TABS 1 PO daily MULTIPLE VITAMIN 00035130877 Active Romana Martínez LORAZEPAM 0.5 MG TABS 1 PO BID LORAZEPAM 69841134942 Active Rowan Chapa ALLOPURINOL 100 MG TABS 1 PO BID ALLOPURINOL 23805077927 No Longer Active Rowan Chapa ATENOLOL 25 MG TABS 1 PO daily ATENOLOL 82904288841 Active Romana Martínez Vital Signs Date Name [...] mmol/L Encounters Code Encounter Date Provider Facility CPT-60861 Ofc Vst, Est Level IV 20:22:56 PATIENT ACCOUNTS MANAGER Romana Quiana Mauricio Martínez, DO, FACP CPT-78767 Ofc Vst, Est Level IV 19:32:49 PATIENT ACCOUNTS MANAGER Romana Quianaromán Martínez [facility] CPT-92325 Ofc Vst, Est Level IV 18:44:46 CDT Romana Quiana Mauricio Martínez, DO, FACP CPT-89141 Ofc Vst, Est Level III 15:59:28 CDT Romanabethel Martínez DO, FACP CPT-24749 Ofc Vst, Est Level III 17:18:17 CDT Romanabethel Martínez DO, FACP CPT-20889 Ofc Vst, Est Level IV 16:44:08 CDT Romanabethel Martínez, DO, FACP CPT-31381 Ofc Vst, Est Level III 14:53:29 CDT Romanabethel Martínez [facility] CPT-61223 Ofc Vst, Est Level IV 11:21:31 PATIENT ACCOUNTS MANAGER Romana Martínez, DO, FACP CPT-72254 Ofc Vst, Est Level IV 11:23:00 CDT Romanabethel Martínez, DO, FACP CPT-90680 Ofc Vst, Est Level IV 16:02:44 CDT Romanabethel Martínez [facility] CPT-93842 Ofc Vst, Est Level IV 16:15:02 CDT Romanabethel Martínez, DO, FACP CPT-52294 Ofc Vst, Est Level IV 10:20:04 CDT Romanabethel Martínez, DO, FACP CPT-18175 Ofc Vst, Est Level IV 16:24:53 CDT [facility] CPT-39093 Ofc Vst, New Level IV 16:07:20 CDT [facility] Procedures Code Procedure Name Date Entry Date Standard Description CPT-74143 Preventive, Est, (40-64) 13:45:44 PATIENT ACCOUNTS MANAGER CPT-32006 Preventive, Est, (40-64) 13:14:51 PATIENT ACCOUNTS MANAGER
--- OUTSIDE RECORDS SUMMARY | 2019-05-25 13:26 | XMS REPORT | Clinical Summary ---
Author Author UserRADHA [facility] Address Unknown Phone Allergies, Adverse Reactions, [...] MEQ CR-TABS 1 PO daily POTASSIUM CHLORIDE 52182195285 Active Romana Martínez HYDROCODONE-ACETAMINOPHEN 7.5-325 MG TABS 1 tab po q 4-6 hrs prn HYDROCODONE-ACETAMINOPHEN 92372387707 Active Romana Martínez TEMAZEPAM 15 MG CAPS 1 PO BID prn TEMAZEPAM 62040710826 No Longer Active Romana Martínez VENLAFAXINE HCL 75 MG TABS 1 PO BID VENLAFAXINE HCL 86178723189 No Longer Active Romana Martínez HYDROCODONE-ACETAMINOPHEN 7.5-325 MG TABS 1 PO Q4-6 hrs prn pain HYDROCODONE-ACETAMINOPHEN 66228582289 No Longer Active Romana Martínez METROGEL 1 % GEL Apply to affected areas on face daily as directed METRONIDAZOLE 00175197378 No Longer Active Romana Martínez SOMA 350 MG TAB 1 PO QHS prn CARISOPRODOL 04058651589 No Longer Active Romana Martínez DOXYCYCLINE HYCLATE 100 MG CAP 1 po BID DOXYCYCLINE HYCLATE 76724330093 No Longer Active Romana Martínez SOMA 350 MG TAB 1 PO TID prn pain CARISOPRODOL 98977851753 No Longer Active Romana Martínez ALLOPURINOL 100 MG TABS 1 PO BID ALLOPURINOL 38151901439 Active Romana Martínez COLCHICINE 0.6 MG TAB 1 PO every 2 hours as needed for Gout attack. Maximum 10 tablets per day. COLCHICINE 25579548739 No Longer Active Romana Martínez ULORIC 40 MG TABS 1 PO daily FEBUXOSTAT 77309828471 No Longer Active Romana Martínez MULTIVITAMINS TABS 1 PO daily MULTIPLE VITAMIN 31934613526 Active Romana Martínez LORAZEPAM 0.5 MG TABS 1 PO BID LORAZEPAM 53136971927 Active Rowan Chapa ALLOPURINOL 100 MG TABS 1 PO BID ALLOPURINOL 05974632368 No Longer Active Rowan Chapa ATENOLOL 25 MG TABS 1 PO daily ATENOLOL 78554400711 Active Romana Martínez Vital Signs Date Name [...] mmol/L Encounters Code Encounter Date Provider Facility CPT-66983 Ofc Vst, Est Level IV 20:22:56 AQUACULTURE WORKER Romana Quiana Mauricio Martínez, DO, FACP CPT-41301 Ofc Vst, Est Level IV 19:32:49 AQUACULTURE WORKER Romana Quianaromán Martí[facility] CPT-32408 Ofc Vst, Est Level IV 18:44:46 CDT Romana Quiana Mauricio Martínez, DO, FACP CPT-86388 Ofc Vst, Est Level III 15:59:28 CDT Romanabethel Martínez DO, FACP CPT-45430 Ofc Vst, Est Level III 17:18:17 CDT Romanabethel Martínez DO, FACP CPT-12393 Ofc Vst, Est Level IV 16:44:08 CDT Romanabethel Martínez, DO, FACP CPT-84022 Ofc Vst, Est Level III 14:53:29 CDT Romanabethel Martínez [facility] CPT-93155 Ofc Vst, Est Level IV 11:21:31 AQUACULTURE WORKER Romana Martínez, DO, FACP CPT-33387 Ofc Vst, Est Level IV 11:23:00 CDT Romanabethel Martínez, DO, FACP CPT-62402 Ofc Vst, Est Level IV 16:02:44 CDT Romanabethel Martínez [facility] CPT-57863 Ofc Vst, Est Level IV 16:15:02 CDT Romanabethel Martínez, DO, FACP CPT-15948 Ofc Vst, Est Level IV 10:20:04 CDT Romanabethel Martínez, DO, FACP CPT-82095 Ofc Vst, Est Level IV 16:24:53 CDT [facility] CPT-19327 Ofc Vst, New Level IV 16:07:20 CDT [facility] Procedures Code Procedure Name Date Entry Date Standard Description CPT-58208 Preventive, Est, (40-64) 13:45:44 [employer] WORK[employer] CPT-28465 Preventive, Est, (40-64) 13:14:51 AQUACULTURE WORKER
--- OUTSIDE RECORDS SUMMARY | 2019-05-25 13:26 | XMS REPORT | Clinical Summary ---
Author Author [facility]RAD[facility] [place] [facility] Address Unknown Phone Allergies, Adverse Reactions, [...] MEQ CR-TABS 1 PO daily POTASSIUM CHLORIDE 11080720175 Active Romana Martínez HYDROCODONE-ACETAMINOPHEN 7.5-325 MG TABS 1 tab po q 4-6 hrs prn HYDROCODONE-ACETAMINOPHEN 82015482076 Active Romana Martínez TEMAZEPAM 15 MG CAPS 1 PO BID prn TEMAZEPAM [id number] No Longer Active Romana Martínez VENLAFAXINE HCL 75 MG TABS 1 PO BID VENLAFAXINE HCL [id number] No Longer Active Romana Martínez HYDROCODONE-ACETAMINOPHEN 7.5-325 MG TABS 1 PO Q4-6 hrs prn pain HYDROCODONE-ACETAMINOPHEN 23325197921 No Longer Active Romana Martínez METROGEL 1 % GEL Apply to affected areas on face daily as directed METRONIDAZOLE [id number] No Longer Active Romana Martínez SOMA 350 MG TAB 1 PO QHS prn CARISOPRODOL 88215979042 No Longer Active Romana Martínez DOXYCYCLINE HYCLATE 100 MG CAP 1 po BID DOXYCYCLINE HYCLATE 71458850946 No Longer Active Romana Martínez SOMA 350 MG TAB 1 PO TID prn pain CARISOPRODOL 37777410591 No Longer Active Romana Martínez ALLOPURINOL 100 MG TABS 1 PO BID ALLOPURINOL 39690606619 Active Romana Martínez COLCHICINE 0.6 MG TAB 1 PO every 2 hours as needed for Gout attack. Maximum 10 tablets per day. COLCHICINE 53376614645 No Longer Active Romana Martínez ULORIC 40 MG TABS 1 PO daily FEBUXOSTAT 27610104771 No Longer Active Romana Martíenz MULTIVITAMINS TABS 1 PO daily MULTIPLE VITAMIN 39759612938 Active Romana Martínez LORAZEPAM 0.5 MG TABS 1 PO BID LORAZEPAM 80698222552 Active Rowan Chapa ALLOPURINOL 100 MG TABS 1 PO BID ALLOPURINOL [id number] No Longer Active Rowan Chapa ATENOLOL 25 MG TABS 1 PO daily ATENOLOL 93915717659 Active Romana Martínez Vital Signs Date Name [...] mmol/L Encounters Code Encounter Date Provider Facility CPT-58795 Ofc Vst, Est Level IV 20:22:56 [facility] Romana Quiana Mauricio Martínez, DO, FACP CPT-89166 Ofc Vst, Est Level IV 19:32:49 [facility] Romana Quianaromán Mart[facility] CPT-46313 Ofc Vst, Est Level IV 18:44:46 CDT Romana Quiana Mauricio Martínez, DO, FACP CPT-41895 Ofc Vst, Est Level III 15:59:28 CDT Romanabethel Martínez DO, FACP CPT-26523 Ofc Vst, Est Level III 17:18:17 CDT Romanabethel Martínez DO, FACP CPT-10231 Ofc Vst, Est Level IV 16:44:08 CDT Romanabethel Martínez, DO, FACP CPT-43074 Ofc Vst, Est Level III 14:53:29 CDT Romanabethel Martínez [facility] CPT-39068 Ofc Vst, Est Level IV 11:21:31 [facility] [employer] Romana Martínez, DO, FACP CPT-62616 Ofc Vst, Est Level IV 11:23:00 CDT Romanabethel Martínez, DO, FACP CPT-36775 Ofc Vst, Est Level IV 16:02:44 CDT Romanabethel Martínez [facility] CPT-16764 Ofc Vst, Est Level IV 16:15:02 CDT Romanabethel Martínez, DO, FACP CPT-20944 Ofc Vst, Est Level IV 10:20:04 CDT Romanabethel Martínez, DO, FACP CPT-92086 Ofc Vst, Est Level IV 16:24:53 CDT [facility] Ofc Vst, New Level IV 16:07:20 CDT [facility] Procedures Code Procedure Name Date Entry Date Standard Description CPT-36437 Preventive, Est, (40-64) 13:45:44 [facility] CPT-86481 Preventive, Est, (40-64) 13:14:51 [employer]
[2019-05-25] MEDS ORDERED: amLODIPine 5 MG (NORVASC) TAB PO ONE (13:30)
[2019-05-25 16:50] VITALS: BP 198/96
[2019-05-25] MEDS: cloNIDine 0.1 MG (CATAPRES) TAB PO PRN (17:01)
[2019-05-25] MEDS: ENOXAPARIN 40 MG/0.4 ML (LOVENOX) SYR SC SCH (17:49)
--- NOTE | 2019-05-25 17:54 | Consultation - Surgery ---
History of Present Illness History of Present Illness Patient Consulted On(ray/time) 05/25/19 17:49 Time Seen by Provider: 16:58 History of Present Illness Surgery asked to consult regarding right toe, foot and ankle cellulitis. HPI per IM: This is a 58-year-old white male clinic patient of mine for the past 10 years who has a past medical history of alcoholism, hypertension, anxiety and smoking with chronic neuropathy who presented to my clinic after he called for an urgent appointment for a gout attack so labs were drawn prior to appointment and when he arrived I evaluated the right great toe showing a significant ulceration with pustular drainage along with cellulitis of his entire foot spreading up his leg. He was found to be in need of IV antibiotics and Dr. Christie was consulted along with Dr. Gutiérrez for wound care and possible toe abscess respectively. He will be placed on empiric antibiotics provided pain control and he will be on alcohol withdrawal protocol. Patient is currently doing much better did have some anxiety early this morning and wanted a cigarette and I did offer nicotine patch but he declined. Overall his right foot and toe is much improved and arterial ultrasound is pending at time of dictation and understands the diagnosis sepsis and the need to continue on IV antibiotics with close monitoring. When I spoke to pt this evening he states he thinks this all started "when I cut my toe". He states he has neuropathy (denies DM) and didn't even know he had hurt his toe. He states the pain has gotten worse over the past couple of days and the swelling and redness are not any better. He denies having something like this before. Rating the pain as minimal because he doesn't feel much in his feet. Allergies and Home Medications Allergies Coded Allergies: No Known Drug Allergies (Unverified , 05/24/19) Home Medications Allopurinol 100 Mg Tablet, 100 MG PO DAILY, (Reported) Atenolol 25 Mg Tablet, 25 MG PO DAILY, (Reported) Hydrocodone/Acetaminophen 1 Each Tablet, 1 TAB PO BID PRN for PAIN-MODERATE, (Reported) Lorazepam 0.5 Mg Tablet, 0.5 MG PO DAILY, (Reported) Lorazepam 0.5 Mg Tablet, 0.5 MG PO HS PRN for ANXIETY, (Reported) Potassium Chloride 10 Meq Tablet.er, 10 MEQ PO DAILY, (Reported) Patient Home Medication List Home Medication List Reviewed: Yes Past Spcxsvo-Pyvazl-Acphwo Hx Patient Social History Alcohol Use: Regular Use Number of Drinks Today: 1 Recreational Drug Use: No Smoking Status: Current Everyday Smoker Recent Foreign Travel: No Contact w/Someone Who Travel: No Recent Infectious Disease Expo: No Recent Hopitalizations: No Physical Abuse Screen: No Sexual Abuse: No Seasonal Allergies Seasonal Allergies: Yes Surgeries History of Surgeries: Yes (20 YEARS AGO TUMOR REMOVED ( NON CANCER ) ON BLADDER) Respiratory History of Respiratory Disorde: No Cardiovascular History of Cardiac Disorders: Yes (MITRAL VALVE PROLAPSE) Cardiac Disorders: Hypertension Neurological History of Neurological Disord: Yes Neurological Disorders: Neuropathy Reproductive System Sexually Transmitted Disease: No HIV/AIDS: No Genitourinary History of Genitourinary Disor: No Gastrointestinal History of Gastrointestinal Di: Yes (IBS) Gastrointestinal Disorders: Chronic Diarrhea, Irritable Bowel Musculoskeletal History of Musculoskeletal Dis: Yes Musculoskeletal Disorders: Gout Endocrine History of Endocrine Disorders: No HEENT History of HEENT Disorders: Yes Hearing Impairment: Hard of Hearing Cancer History of Cancer: No Psychosocial History of Psychiatric Problem: Yes Behavioral Health Disorders: Anxiety, Depression Integumentary History of Skin or Integumenta: Yes (CUT RIGHT GREAT TOE) Family Medical History Significant Family History: 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/Hx (Mother has Atrial fibrillation) Family Medial History: FH: neuropathy 19 MOTHER Mitral valve prolapse 19 MOTHER Review of Systems-General Constitutional: chills, diaphoresis, malaise EENTM: No blurred vision, No double vision, No mouth pain, No mouth swelling, No epistaxis Respiratory: No cough, No dyspnea on exertion Cardiovascular: No chest pain, No edema, No palpitations Gastrointestinal: No abdominal pain, No melena, No nausea, No vomiting Genitourinary: No dysuria, No frequency, No hematuria Musculoskeletal: gout, joint pain, joint swelling, muscle stiffness Skin: change in color; No change in hair/nails, No hx of skin cancer Psychiatric/Neurological: Anxiety, Depressed; Denies Seizure, Denies Tremors Other pt denies any hx of abnormal bleeding or bruising Physical Exam-General Problems Physical Exam Vital Signs Vital Signs - First Documented 05/24/19 19:12 FiO2 21 Capillary Refill : General Appearance: WD/WN, mild distress Eyes: Bilateral Eye PERRL, Bilateral Eye EOMI HEENT: pharynx normal; No scleral icterus (R), No scleral icterus (L) Neck: non-tender, full range of motion Respiratory: chest non-tender, lungs clear, normal breath sounds, no respiratory distress, no accessory muscle use Cardiovascular: regular rate, rhythm, no murmur Gastrointestinal: normal bowel sounds, non tender, soft, no organomegaly, no pulsatile mass Back: no CVA tenderness, no vertebral tenderness Extremities: no calf tenderness, swelling (bilaterally), other (right lower extremity has erythema from knee down, very warm, with edema and tenderness. Right toe has skin, area of brownish tissue (probably necrotic)) Skin: normal color, warm/dry Lymphatic: no adenopathy (neck, axilla and groin) Data Review Labs Laboratory Tests 05/24/19 18:25: White Blood Count 6.7, Red Blood Count 3.85L, Hemoglobin 14.8, Hematocrit 41, Mean Corpuscular Volume 108H, Mean Corpuscular Hemoglobin 38H, Mean Corpuscular Hemoglobin Concent 36, Red Cell Distribution Width 15.6H, Platelet Count 246, Mean Platelet Volume 9.5, Neutrophils (%) (Auto) 53, Lymphocytes (%) (Auto) 33, Monocytes (%) (Auto) 10, Eosinophils (%) (Auto) 4, Basophils (%) (Auto) 1, Neutrophils # (Auto) 3.6, Lymphocytes # (Auto) 2.2, Monocytes # (Auto) 0.7, Eosinophils # (Auto) 0.3, Basophils # (Auto) 0.0, Erythrocyte Sedimentation Rate 17, Sodium Level 140, Potassium Level 2.8L, Chloride Level 99, Carbon Dioxide Level 28, Anion Gap 13, Blood Urea Nitrogen 6L, Creatinine 0.59L, Estimat Glomerular Filtration Rate > 60, BUN/Creatinine Ratio 10, Glucose Level 98, Lactic Acid Level 2.95*H, Calcium Level 8.6, Corrected Calcium 8.9, Total Bilirubin 0.4, Aspartate Amino Transf (AST/SGOT) 46H, Alanine Aminotransferase (ALT/SGPT) 27, Alkaline Phosphatase 130, C-Reactive Protein High Sensitivity 3.34H, Total Protein 6.7, Albumin 3.6, Serum Alcohol 28H 05/24/19 20:43: Lactic Acid Level 2.00 05/25/19 06:05: White Blood Count 6.0, Red Blood Count 3.52L, Hemoglobin 13.8, Hematocrit 38L, Mean Corpuscular Volume 107H, Mean Corpuscular Hemoglobin 39H, Mean Corpuscular Hemoglobin Concent 37H, Red Cell Distribution Width 15.7H, Platelet Count 209, Mean Platelet Volume 9.2, Neutrophils (%) (Auto) 63, Lymphocytes (%) (Auto) 24, Monocytes (%) (Auto) 10, Eosinophils (%) (Auto) 3, Basophils (%) (Auto) 1, Neutrophils # (Auto) 3.7, Lymphocytes # (Auto) 1.4, Monocytes # (Auto) 0.6, Eosinophils # (Auto) 0.2, Basophils # (Auto) 0.0, Sodium Level 142, Potassium Level 2.7L, Chloride Level 104, Carbon Dioxide Level 26, Anion Gap 12, Blood Urea Nitrogen 6L, Creatinine 0.61, Estimat Glomerular Filtration Rate > 60, BUN/Creatinine Ratio 10, Glucose Level 103, Calcium Level 8.0L, Corrected Calcium 8.7, Total Bilirubin 0.7, Aspartate Amino Transf (AST/SGOT) 34, Alanine Aminotransferase (ALT/SGPT) 22, Alkaline Phosphatase 116, Total Protein 5.9L, Albumin 3.1L Assessment/Plan Assessment/Plan Assessment/Plan Right 1st Toe necrotic Tissue Cellulitis right foot and lower leg Neuropathy Plan is to do Dakins solutions on his toe, elevate the leg and get IV ABX started. US showed monophasic flow for entire lower leg; he may benefit from an Interventional Cardiology consult regarding stenting, can be done as an outpt. No osteomyelitis seen on X-ray although MRI is best test for this. Will monitor leg and hold-off on surgical debridement for now. If pt needs amputation the toe will delineate and make it easier to decide how to proceed at that time. This will take a little while to occur. Clinical Quality Measures DVT/VTE Risk/Contraindication: Risk Factor Score Per Nursin RFS Level Per Nursing on Admit: 2=Moderate Contraindications-Mechi: Other *list below* Other: cellulitis RAVINDER GUTIÉRREZ DO May 25, 2019 17:54
[2019-05-25] MEDS ORDERED: TROUGH ORDER-PHARMACY XX NR (18:00)
[2019-05-25 18:31] LABS: BILIRUBIN,URINE NEGATIVE (NEGATIVE); CLARITY,URINE CLEAR; COLOR,URINE AMBER; GLUCOSE, URINE (UA) NEGATIVE (NEGATIVE); KETONES,URINE NEGATIVE (NEGATIVE); LEUKOCYTE ESTERASE ,URINE NEGATIVE (NEGATIVE); NITRITE,URINE NEGATIVE (NEGATIVE); PH,URINE 5 (5-9); PROTEIN,URINE 1+ (NEGATIVE); UROBILINOGEN,URINE NORMAL (NORMAL)
[2019-05-25 18:39] LABS: BACTERIA,URINE NEGATIVE /HPF; SQUAMOUS EPITHELIAL CELL,UR 0-2 /HPF
--- NOTE | 2019-05-25 19:36 | Wound Care Assessment ---
Wound Care Assessment Date Seen by Provider: May 25, 2019 Time Seen by Provider: 17:00 Chief Complaint Infected R great toe ulcer. HPI The patient is a 58 year old male, with a long-standing history of neuropathy, and a three week history of ulceration of the R great toe. [place] It evolved into a ulcer and worsened in the last week. He is a current everyday smoker and has a history of alcohol abuse. He has chronic edema of BLE, but it has worsened on the R. He denies diabetes. 05/25/19 Interval Note: Seen at bedside. Less pain. Wound is clean by nursing report. Less erythema noted. Continue same dressings. Past Medical History: Admits Heart Disease (arhythmia. Personal hx of neuropathy.) Smoking Status: Current Everyday Smoker Recreational Drug Use: No Alcohol Use: Regular Use Other Social Hx No interval change in PFSH. Review of Systems General: No Chills Pulmonary: No Dyspnea Cardiovascular: No: Chest Pain Exam Vital Signs Date Time Temp Pulse Resp B/P (MAP) Pulse Ox O2 Delivery O2 Flow Rate FiO2 05/25/19 16:50 98.6 88 18 198/96 (130) 95 Room Air 05/24/19 19:12 21 Capillary Refill : General Appearance: No no apparent distress HEENT: No normal ENT inspection Cardiovascular: regular rate, rhythm Respiratory: lungs clear Gastrointestinal: non tender Extremities: other (Dressing intact. Wound reported clean.) Results Laboratory Tests 05/24/19 20:20: Urine Color AMBERH, Urine Clarity CLEAR, Urine pH 5, Urine Specific [place] 1.025H, Urine Protein 1+H, Urine Glucose (UA) NEGATIVE, Urine Ketones NEGATIVE, Urine Nitrite NEGATIVE, Urine Bilirubin NEGATIVE, Urine Urobilinogen NORMAL, Urine Leukocyte Esterase NEGATIVE, Urine RBC (Auto) NEGATIVE, Urine RBC NONE, Urine WBC NONE, Urine Squamous Epithelial Cells 0-2, Urine Crystals NONE, Urine Bacteria NEGATIVE, Urine Casts PRESENT, Urine Hyaline Casts 2-5H, Urine Mucus MODERATEH, Urine Culture Indicated NO 05/24/19 20:43: Lactic Acid Level 2.00 05/25/19 06:05: White Blood Count 6.0, Red Blood Count 3.52L, Hemoglobin 13.8, Hematocrit 38L, Mean Corpuscular Volume 107H, Mean Corpuscular Hemoglobin 39H, Mean Corpuscular Hemoglobin Concent 37H, Red Cell Distribution Width 15.7H, Platelet Count 209, Mean Platelet Volume 9.2, Neutrophils (%) (Auto) 63, Lymphocytes (%) (Auto) 24, Monocytes (%) (Auto) 10, Eosinophils (%) (Auto) 3, Basophils (%) (Auto) 1, Neutrophils # (Auto) 3.7, Lymphocytes # (Auto) 1.4, Monocytes # (Auto) 0.6, Eosinophils # (Auto) 0.2, Basophils # (Auto) 0.0, Sodium Level 142, Potassium Level 2.7L, Chloride Level 104, Carbon Dioxide Level 26, Anion Gap 12, Blood Urea Nitrogen 6L, Creatinine 0.61, Estimat Glomerular Filtration Rate > 60, BUN/Creatinine Ratio 10, Glucose Level 103, Calcium Level 8.0L, Corrected Calcium 8.7, Total Bilirubin 0.7, Aspartate Amino Transf (AST/SGOT) 34, Alanine Aminotransferase (ALT/SGPT) 22, Alkaline Phosphatase 116, Total Protein 5.9L, Albumin 3.1L 05/25/19 18:17: Vancomycin Level Trough 15.4 Microbiology 05/24/19 Blood Culture - Preliminary, Resulted No growth Microbiology 05/24/19 Blood Culture - Preliminary, Resulted No growth 05/24/19 Blood Culture - Preliminary, Resulted No growth Assessment/Plan/Dx 1. R great toe ulcer, full thickness. 2. Peripheral neuropathy, dense. 3. Tobacco abuse and dependency. 4. R/O atherosclerotic arterial occlusive disease. 5. History of alcohol abuse. Plan: Segmental arterial testing pending. PARVEEN GOEL MD May 25, 2019 19:36
[2019-05-25 20:55] VITALS: BP 152/81
[2019-05-26 00:11] VITALS: BP 171/108
[2019-05-26] MEDS: cloNIDine 0.1 MG (CATAPRES) TAB PO PRN ×2 (00:19→20:21)
[2019-05-26] MEDS: PIPERACILLIN/TAZO 4.5 GM/NS 100 ML IV SCH ×6 (00:19→16:54)
[2019-05-26 04:32] VITALS: BP 159/87
[2019-05-26] MEDS: VANCOMYCIN 1,750 MG/NS 500 ML IVPB IV SCH ×4 (06:26→19:57)
[2019-05-26] MEDS: amLODIPine 5 MG (NORVASC) TAB PO SCH (07:57)
[2019-05-26 08:00] VITALS: BP 179/85
[2019-05-26] MEDS: SENNA W/DOCUSATE (SENOKOT S) TABLET PO SCH ×2 (08:01→19:58)
[2019-05-26] MEDS: DAKIN'S 1/4 STRENGTH (0.125%) 473 ML BTL TOP SCH ×2 (08:19→23:28)
[2019-05-26] MEDS: LORazepam 1 MG (ATIVAN) TAB PO PRN ×2 (10:41→14:13)
[2019-05-26] MEDS ORDERED: MAGNESIUM 1 GM/100 ML IVPB 100 ML IV ONE (11:00)
[2019-05-26] MEDS: 1/2 NS IV SOLUTION 1,000 ML IV PRN (11:40)
[2019-05-26] MEDS: POTASSIUM CL 10MEQ/50ML IVPB 50 ML IV SCH ×4 (11:48→15:33)
[2019-05-26] MEDS: KCL 10 MEQ TAB (MICRO K) PO SCH ×2 (11:49→16:53)
--- NOTE | 2019-05-26 11:53 | Progress Note - Surgery ---
Subjective Time Seen by a Provider: 09:59 Subjective/Events-last exam Pt seen and examined, still has some pain in foot and lower leg. Does not think it is worse. Review of Systems General: No Chills, No Night Sweats Pulmonary: No Dyspnea, No Cough Cardiovascular: No: Chest Pain, Palpitations Gastrointestinal: No: Nausea, Vomiting, Abdominal Pain Focused Exam Lactate Level 05/24/19 18:25: Lactic Acid Level 2.95*H 05/24/19 20:43: Lactic Acid Level 2.00 Objective Exam Vital Signs Date Time Temp Pulse Resp B/P (MAP) Pulse Ox O2 Delivery O2 Flow Rate FiO2 05/26/19 09:00 Room Air 05/26/19 08:49 Room Air 05/26/19 08:00 99.0 87 18 179/85 (116) 93 Room Air 05/26/19 07:00 79 05/26/19 04:32 98.4 87 20 159/87 (111) 95 Room Air 05/26/19 01:00 82 05/26/19 00:11 98.6 88 20 171/108 (129) 93 Room Air 05/25/19 20:55 98.6 101 18 152/81 (104) 93 Room Air 05/25/19 20:27 Room Air 05/25/19 20:00 Room Air 05/25/19 19:00 95 05/25/19 16:50 98.6 88 18 198/96 (130) 95 Room Air 05/25/19 13:00 91 05/25/19 12:00 98.2 86 20 178/102 (127) 94 Room Air I & O 05/26/19 07:00 Intake Total 2970 ml Output Total 2100 ml Balance 870 ml Capillary Refill : General Appearance: No Apparent Distress, WD/WN HEENT: PERRL/EOMI, Moist Mucous Membranes Neck: Full Range of Motion, Normal Inspection, Non Tender Respiratory: Chest Non Tender, Lungs Clear, Normal Breath Sounds, No Accessory Muscle Use, No Respiratory Distress Cardiovascular: Regular Rate, Rhythm, No Edema, No Gallop, No JVD, No Murmur, Normal Peripheral Pulses Gastrointestinal: normal bowel sounds, non tender, soft, no organomegaly, no pulsatile mass Extremity: Pedal Edema (bilaterally +2), Other (erythema in right leg has shrunk to only just above ankle, but it is a darker color. 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 Skin: Other (right foot and toe with ulceration and cellulitis and drainage from toe) Results Lab Laboratory Tests 05/25/19 18:17: Vancomycin Level Trough 15.4 Microbiology 05/24/19 Blood Culture - Preliminary, Resulted No growth Assessment/Plan Assessment/Plan Assessment/Plan Right 1st Toe necrotic Tissue Cellulitis right foot and lower leg Neuropathy Continue local wound care with Dakins solutions on his toe, elevate the leg and continue IV ABX started. US showed monophasic flow for entire lower leg; he may benefit from an Interventional Cardiology consult regarding stenting, can be done as an outpt. No osteomyelitis seen on X-ray although MRI is best test for this. Will monitor leg and hold-off on surgical debridement for now. If pt needs amputation the toe will delineate and make it easier to decide how to proceed at that time. This will take a little while to occur. Clinical Quality Measures DVT/VTE Risk/Contraindication: Risk Factor Score Per Nursin RFS Level Per Nursing on Admit: 2=Moderate Contraindications-Mechi: Other *list below* Other: cellulitis RAVINDER GONZALEZ DO May 26, 2019 11:53
[2019-05-26 12:00] VITALS: BP 172/89
--- NOTE | 2019-05-26 12:39 | Progress Note - Hospitalist ---
Subjective HPI/CC On Admission Date Seen by Provider: May 26, 2019 Time Seen by Provider: 11:30 CC: Right great toe ulcer with abscess and cellulitis HPI: This is a 58-year-old white male clinic patient of mine for the past 10 years who has a past medical history of alcoholism, hypertension, anxiety and smoking with chronic neuropathy who presented to my clinic after he called for an urgent appointment for a gout attack so labs were drawn prior to appointment and when he arrived I evaluated the right great toe showing a significant ulceration with pustular drainage along with cellulitis of his entire foot spreading up his leg. He was found to be in need of IV antibiotics and Dr. Christie was consulted along with Dr. Gutiérrez for wound care and possible toe abscess respectively. He will be placed on empiric antibiotics provided pain control and he will be on alcohol withdrawal protocol. Patient is currently doing much better did have some anxiety early this morning and wanted a cigarette and I did offer nicotine patch but he declined. Overall his right foot and toe is much improved and arterial ultrasound is pending at time of dictation and understands the diagnosis sepsis and the need to continue on IV antibiotics with close monitoring. Subjective/Events-last exam Blood pressure has been a problem connected to alcohol withdrawal and nicotine withdrawal Much improved overall Ativan helps the withdrawal symptoms Hep-locked IV fluid yesterday Maintained on broad-spectrum antibiotics Appreciate Dr. Gutiérrez PVD will be assessed by cardiology Review of Systems General: Fatigue Musculoskeletal: foot pain Focused Exam Lactate Level 05/24/19 18:25: Lactic Acid Level 2.95*H 05/24/19 20:43: Lactic Acid Level 2.00 Objective Exam Vital Signs Vital Signs Date Time Temp Pulse Resp B/P (MAP) Pulse Ox O2 Delivery O2 Flow Rate FiO2 05/26/19 13:00 86 05/26/19 12:00 98.8 18 172/89 (116) 92 Room Air 05/24/19 19:12 21 Capillary Refill : General Appearance: No Apparent Distress, WD/WN, Chronically ill HEENT: PERRL/EOMI, TMs Normal, Moist Mucous Membranes Neck: Full Range of Motion, Normal Inspection, Non Tender Respiratory: Chest Non Tender, Lungs Clear, Normal Breath Sounds, No Accessory Muscle Use, No Respiratory Distress Cardiovascular: Regular Rate, Rhythm, No Edema, No Gallop, No JVD, No Murmur, Normal Peripheral Pulses Gastrointestinal: Normal Bowel Sounds, No Organomegaly, No Pulsatile Mass, Non Tender, Soft Back: Normal Inspection, No CVA Tenderness, No Vertebral Tenderness Extremity: Pedal Edema (bilaterally +2), Other (erythema in right leg has shrunk to only just above ankle, but it is a darker color. 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, No Motor/Sensory Deficits, Normal Mood/Affect, stone repairer II-XII Norm as Tested Skin: Other (right foot and toe with ulceration and cellulitis and drainage from toe) Results/Procedures Lab Patient resulted labs reviewed. Assessment/Plan Assessment and Plan Assess & Plan/Chief Complaint Assessment: Sepsis Right great toe ulceration with abscess and severe cellulitis rising up into the leg Severe neuropathy Alcoholism with withdrawal Smoker with small vessel disease Hypertension OOC due to withdrawal Anxiety Plan: Hep-locked IV fluids since sepsis is now cleared Empiric antibiotics Appreciate Dr. Christie and Dr. Gutiérrez Arterial ultrasound Dr Hansen consult for PVD Diagnosis/Problems Diagnosis/Problems (1) Sepsis Status: Acute Qualifiers: Sepsis type: sepsis due to unspecified organism Qualified Codes: A41.9 - Sepsis, unspecified organism (2) Cellulitis of right lower leg Status: Acute (3) Abscess of toe, right Status: Acute (4) Hypertension Status: Chronic Qualifiers: Hypertension type: essential hypertension Qualified Codes: I10 - Essential (primary) hypertension (5) Anxiety Status: Chronic (6) Alcoholism Status: Chronic (7) Smoker Status: Chronic (8) Neuropathy Status: Chronic (9) Ulcer of great toe Status: Acute Qualifiers: Laterality: right Non-pressure ulcer stage: with fat layer exposed Qualified Codes: L97.512 - Non-pressure chronic ulcer of other part of right foot with fat layer exposed Clinical Quality Measures DVT/VTE Risk/Contraindication: Risk Factor Score Per Nursin RFS Level Per Nursing on Admit: 2=Moderate Contraindications-Mechi: Other *list below* Other: cellulitis HARDY CAMPBELL DO May 26, 2019 12:39
--- NOTE | 2019-05-26 14:32 | Consultation-Cardiology ---
HPI-Cardiology Cardiology Consultation: Date of Consultation 05/26/19 Date of Admission Attending Physician Romana Martínez DO Admitting Physician Romana Martínez DO Consulting Physician Isamar HANSEN MD HPI: Time Seen by a Provider: 12:00 Chief Complaint: Nonhealing ulcer on right toe This is a 58-year-old gentleman who is a patient of Dr. Martínez. He has history of alcoholism, hypertension and active smoking. He denies having diabetes. He has right great toe with ulceration and cellulitis. Patient was admitted for IV antibiotics and consultation from Dr. Christie and Dr. Gutiérrez for wound care. Right lower extremity arterial ultrasound showed monophasic flow which very likely suggest inflow stenosis. Review of Systems-Cardiology Review of Systems Constitutional: As described under HPI; No As described under HPI, No no symptoms reported, No chills, No fever, No lightheadedness Eyes: No As described under HPI, No no symptoms reported, No blindness, No blurred vision, No contact lenses, No drainage, No decreased acuity, No foreign body sensation, No pain, No vision change Ears/Nose/Throat: No As described under HPI, No no symptoms reported, No chronic hearing loss, No ear discharge, No ear pain, No nasal drainage, No ulcerations Respiratory: No no symptoms reported; As described under HPI; No As described under HPI, No cough, No orthopnea, No shortness of breath, No SOB with excertion Cardiovascular: No no symptoms reported; As described under HPI; No As descri bed under HPI, No chest pain, No edema, No irregular heart rate, No lightheadedness, No palpitations Gastrointestinal: No no symptoms reported, No As described under HPI, No abdomen distended, No abdominal pain, No blood streaked bowels, No constipation, No diarrhea, No nausea, No vomiting, No stool coloration changes Genitourinary: No As described under HPI, No burning, No dysuria, No discharge, No frequency, No flank pain, No hematuria, No urgency Skin: No rash, No skin related problems; ulcerations Psychiatric/Neurological: No anxiety, No depression, No seizure, No focal weakness, No syncope Hematologic: No bleeding abnormalities All Other Systems Reviewed Negative Unless Noted: Yes [id number] Hx Patient Social History Marrital Status: Employed/Student: employed Alcohol Use: Regular Use Recreational Drug Use: No Smoking Status: Current Everyday Smoker Recent Foreign Travel: No Recent Infectious Disease Expo: No Hospitalization with Isolation: Denies Physical Abuse Screen: No Sexual Abuse: No Past Medical History PMH As described under Assessment. Family Medical History Family History: FH: neuropathy 19 MOTHER Mitral valve prolapse 19 MOTHER Allergies and Home Medications Allergies Coded Allergies: No Known Drug Allergies (Unverified , 05/24/19) Home Medications Allopurinol 100 Mg Tablet, 100 MG PO DAILY, (Reported) Atenolol 25 Mg Tablet, 25 MG PO DAILY, (Reported) Hydrocodone/Acetaminophen 1 Each Tablet, 1 TAB PO BID PRN for PAIN-MODERATE, (Reported) Lorazepam 0.5 Mg Tablet, 0.5 MG PO DAILY, (Reported) Lorazepam 0.5 Mg Tablet, 0.5 MG PO HS PRN for ANXIETY, (Reported) Potassium Chloride 10 Meq Tablet.er, 10 MEQ PO DAILY, (Reported) Patient Home Medication List Home Medication List Reviewed: Yes Physical Exam-Cardiology Physical Exam Vital Signs/I&O 05/27/19 05/27/19 05/27/19 05/27/19 00:49 01:00 01:03 04:00 Temp 99.2 99.2 98.9 Pulse 95 92 95 86 Resp 20 20 20 B/P (MAP) 174/96 (122) 174/96 (122) 170/93 (118) Pulse Ox 91 91 92 O2 Delivery Room Air Room Air Room Air 05/27/19 05/27/19 05/27/19 05/27/19 07:00 08:00 08:06 08:06 Temp 98.4 Pulse 83 88 85 Resp 18 B/P (MAP) 195/102 (133) Pulse Ox 95 92 92 O2 Delivery Room Air Room Air FiO2 21 05/27/19 09:00 O2 Delivery Room Air 05/27/19 00:00 Intake Total 2164 ml Output Total 1225 ml Balance 939 ml Capillary Refill : Constitutional: appears stated age, AAO x 3; No apparent distress; well- developed, well-nourished HEENT: PERRL; No normal ENT inspection, No TMs normal, No pharynx normal, No scleral icterus (R), No scleral icterus (L), No pale conjunctivae (R), No pale conjunctivae (L), No photophobia, No TM abnormal (R), No TM abnormal (L), No pharyngeal erythema, No tonsillar exudate, No other, No discharge, No EOMI; hearing is well preserved; No hard of hearing; oral hygience is good; No ulceration, No xanthelasmas are seen Neck: No non-tender, No full range of motion, No supple, No normal inspection, No carotid bruit, No limited range of motion, No lymphadenopathy (R), No lymphadenopathy (L), No tender lateral, No tender midline, No thyromegaly, No other; carotid pulses are 2 + bilaterally; No with good upstrokes Respiratory: No accessory muscle use, No respiratory distress, No chest tender, No chest expansion is symmetric; chest is bilaterally symmetric; No lungs clear to percussion; lungs clear to auscultation; No crackles, No rhonchi, No rales, No stridor, No wheezing, No pleural rub, No other Cardiovascular: regular rate-rhythm; No irregularly irregular, No extra beats, No parasternal heave is noted, No JVD, No edema, No bradycardia, No tachycardia, No point of maximal impulse, No cardiac thrills are palpable; S1 and S2; No gallop/S3, No gallop/S4, No diastolic murmur, No systolic murmur, No friction rub, No click, No other Gastrointestinal: No tender, No soft, No round, No distended, No pulsatile mass, No organomegaly, No guarding, No rebound, No tenderness, No hernia, No mass, No audible bowel sounds, No abnormal bowel sounds, No abdominal bruits, No spleenomegaly, No other Rectal: deferred Extremities: No normal range of motion, No non-tender, No normal inspection, No pedal edema, No calf tenderness, No normal capillary refill, No pelvis stable, No calf tenderness, No inflammation, No pedal edema, No slow capillary refill, No swelling, No other, No abrasion, No clubbing, No cyanosis, No ecchymosis, No laceration, No no lower extremity edema bilateral, No significant edema, No tenderness; wound (right great toe) Neurologic/Psychiatric: no motor/sensory deficits, alert, normal mood/affect, oriented x 3, power is 5/5 both on sides Skin: No rash, No ulcerations Lymphatic: no adenopathy (neck, axilla and groin) Data Review Labs Laboratory Tests 05/27/19 05:22: White Blood Count 10.7, Red Blood Count 3.50L, Hemoglobin 13.4, Hematocrit 37L, Mean Corpuscular Volume 106H, Mean Corpuscular Hemoglobin 38H, Mean Corpuscular Hemoglobin Concent 36, Red Cell Distribution Width 15.7H, Platelet Count 177, Mean Platelet Volume 9.5, Neutrophils (%) (Auto) 76H, Lymphocytes (%) (Auto) 12, Monocytes (%) (Auto) 9, Eosinophils (%) (Auto) 2, Basophils (%) (Auto) 1, Neutrophils # (Auto) 8.2H, Lymphocytes # (Auto) 1.3, Monocytes # (Auto) 1.0, Eosinophils # (Auto) 0.2, Basophils # (Auto) 0.1, Sodium Level 139, Potassium Level 2.6L, Chloride Level 105, Carbon Dioxide Level 22, Anion Gap 12, Blood Urea Nitrogen 6L, Creatinine 0.92, Estimat Glomerular Filtration Rate > 60, BUN/Creatinine Ratio 7, Glucose Level 106H, Calcium Level 7.8L, Corrected Calcium 8.5, Total Bilirubin 1.3H, Aspartate Amino Transf (AST/SGOT) 27, Alanine Aminotransferase (ALT/SGPT) 17, Alkaline Phosphatase 92, Total Protein 5.9L, Albumin 3.1L Microbiology 05/24/19 Blood Culture - Preliminary, Resulted No growth A/P-Cardiology Assessment/Admission Diagnosis Right great toe cellulitis, abscess, nonhealing ulcer, Likely critical limb ischemia, Hypertension, Active smoking Plan IV fluids, wound care and general surgery following. Critical limb ischemia, with right arterial lower extremity ultrasound demonstrating strong possibility of high-grade stenosis. Will likely require peripheral angiogram with possible intervention. I will discuss with the primary team as well as consultants about the appropriate time for peripheral angiogram. I recommend aspirin and Plavix. High-dose statin therapy. Smoking cessation was strongly recommended. Thank you for your consultation. Please call me if you have any questions. Salvatore Hansen MD, FACP, FACC, FSCAI, FHRS, CCDS Interventional Cardiology Cardiac Electrophysiology Vascular Medicine and Endovascular Interventions Clinical Quality Measures DVT/VTE Risk/Contraindication: Risk Factor Score Per Nursin RFS Level Per Nursing on Admit: 2=Moderate Contraindications-Mechi: Other *list below* Other: cellulitis Isamar HANSEN MD May 26, 2019 14:32
[2019-05-26 16:45] VITALS: BP 165/97
[2019-05-26] MEDS: ACETAMINOPHEN 500 MG TAB (TYLENOL) PO PRN (16:54)
[2019-05-26] MEDS: ENOXAPARIN 40 MG/0.4 ML (LOVENOX) SYR SC SCH (16:55)
[2019-05-26 20:05] VITALS: BP 177/96
[2019-05-26] MEDS: HYDROcodone/APAP 5 MG/325 MG (LORTAB) TAB PO PRN (22:05)
[2019-05-27] VITALS (9 sets, daily range): BP systolic 156–195; BP diastolic 84–102
[2019-05-27] MEDS: PIPERACILLIN/TAZO 4.5 GM/NS 100 ML IV SCH ×6 (00:58→16:40)
[2019-05-27] MEDS: cloNIDine 0.1 MG (CATAPRES) TAB PO PRN ×3 (01:01→16:39)
[2019-05-27] MEDS: LORazepam 1 MG (ATIVAN) TAB PO PRN ×3 (02:27→16:39)
[2019-05-27 05:41] LABS: BASOPHILS # (AUTO) 0.1 10^3/uL (0.0-0.1); BASOPHILS % (AUTO) 1 % (0-10); EOSINOPHILS # (AUTO) 0.2 10^3/uL (0.0-0.3); EOSINOPHILS % (AUTO) 2 % (0-10); HEMATOCRIT 37 % (40-54); HEMOGLOBIN 13.4 G/DL (13.3-17.7); LYMPHOCYTES # (AUTO) 1.3 X 10^3 (1.0-4.0); LYMPHOCYTES % (AUTO) 12 % (12-44); MEAN CORPUSCULAR HEMOGLOBIN 38 PG (25-34); MEAN CORPUSCULAR HGB CONC 36 G/DL (32-36); MEAN CORPUSCULAR VOLUME 106 FL (80-99); MEAN PLATELET VOLUME 9.5 FL (7.4-10.4); MONOCYTES % (AUTO) 9 % (0-12); NEUTROPHILS # (AUTO) 8.2 X 10^3 (1.8-7.8); NEUTROPHILS % (AUTO) 76 % (42-75); PLATELET COUNT 177 10^3/uL (130-400); RED CELL DISTRIBUTION WIDTH 15.7 % (10.0-14.5); WHITE BLOOD COUNT 10.7 10^3/uL (4.3-11.0)
[2019-05-27] MEDS: VANCOMYCIN 1,750 MG/NS 500 ML IVPB IV SCH ×4 (06:06→21:38)
[2019-05-27 06:10] LABS: ALANINE AMINOTRANSFERASE 17 U/L (0-55); ALBUMIN 3.1 GM/DL (3.2-4.5); ALKALINE PHOSPHATASE 92 U/L (40-136); BILIRUBIN,TOTAL 1.3 MG/DL (0.1-1.0); BUN/CREATININE RATIO 7; CALCIUM 7.8 MG/DL (8.5-10.1); CARBON DIOXIDE 22 MMOL/L (21-32); CHLORIDE 105 MMOL/L (98-107); CREATININE SERUM 0.92 MG/DL (0.60-1.30); GFR ESTIMATED > 60; GLUCOSE 106 MG/DL (70-105); POTASSIUM 2.6 MMOL/L (3.6-5.0); SODIUM 139 MMOL/L (135-145); TOTAL PROTEIN 5.9 GM/DL (6.4-8.2)
[2019-05-27] MEDS: KCL 10 MEQ TAB (MICRO K) PO SCH ×3 (06:19→16:39)
[2019-05-27] MEDS: SENNA W/DOCUSATE (SENOKOT S) TABLET PO SCH ×2 (08:14→20:00)
[2019-05-27] MEDS: amLODIPine 5 MG (NORVASC) TAB PO SCH (08:14)
[2019-05-27] MEDS: DAKIN'S 1/4 STRENGTH (0.125%) 473 ML BTL TOP SCH ×2 (08:15→20:00)
[2019-05-27] MEDS ORDERED: ATENOLOL 25 MG (TENORMIN) TAB PO SCH (09:45)
--- NOTE | 2019-05-27 11:22 | Progress Note - Hospitalist ---
Subjective HPI/CC On Admission Date Seen by Provider: May 27, 2019 Time Seen by Provider: 12:00 CC: Right great toe ulcer with abscess and cellulitis HPI: This is a 58-year-old white male clinic patient of mine for the past 10 years who has a past medical history of alcoholism, hypertension, anxiety and smoking with chronic neuropathy who presented to my clinic after he called for an urgent appointment for a gout attack so labs were drawn prior to appointment and when he arrived I evaluated the right great toe showing a significant ulceration with pustular drainage along with cellulitis of his entire foot spreading up his leg. He was found to be in need of IV antibiotics and Dr. Christie was consulted along with Dr. Gutiérrez for wound care and possible toe abscess respectively. He will be placed on empiric antibiotics provided pain control and he will be on alcohol withdrawal protocol. Patient is currently doing much better did have some anxiety early this morning and wanted a cigarette and I did offer nicotine patch but he declined. Overall his right foot and toe is much improved and arterial ultrasound is pending at time of dictation and understands the diagnosis sepsis and the need to continue on IV antibiotics with close monitoring. Subjective/Events-last exam Patient doing much better Brother and at bedside Talked about the alcohol withdrawal and smoking cessation process since he has been in the hospital it would be a great opportunity for him to maintain cessation of both agrees with this plan Hypertension is significant due to alcohol withdrawal Multiple meds given so we will add in hydralazine 25 3 times daily in addition to the Norvasc 5 restarting his home atenolol and doing the clonidine as needed Ativan been given for withdrawal symptoms Appreciate cardiology consultation him he will plan on angiogram tomorrow to evaluate for any stenotic lesion that could improve the toe blood supply in order to prevent an amputation Appreciate Dr. Gutiérrez in evaluated him for possible amputation of the great toe Reviewed meds and labs Severe potassium losing entity will require Aldactone 25 mg daily along with 80 mEq of potassium given IV in addition to 10 mEq p.o. 3 times daily Review of Systems General: Fatigue Neurological: Weakness Focused Exam Lactate Level 05/24/19 18:25: Lactic Acid Level 2.95*H 05/24/19 20:43: Lactic Acid Level 2.00 Objective Exam Vital Signs Vital Signs Date Time Temp Pulse Resp B/P (MAP) Pulse Ox O2 Delivery O2 Flow Rate FiO2 05/27/19 13:00 76 05/27/19 12:00 98.5 18 156/84 (108) 94 Room Air 05/27/19 08:06 21 Capillary Refill : General Appearance: No Apparent Distress, WD/WN, Chronically ill HEENT: PERRL/EOMI, TMs Normal, Moist Mucous Membranes Neck: Full Range of Motion, Normal Inspection, Non Tender Respiratory: Chest Non Tender, Lungs Clear, Normal Breath Sounds, No Accessory Muscle Use, No Respiratory Distress Cardiovascular: Regular Rate, Rhythm, No Edema, No Gallop, No JVD, No Murmur, Normal Peripheral Pulses Gastrointestinal: Normal Bowel Sounds, No Organomegaly, No Pulsatile Mass, Non Tender, Soft Back: Normal Inspection, No CVA Tenderness, No Vertebral Tenderness Extremity: Pedal Edema (bilaterally +2), Other (erythema in right leg has shrunk to only just above ankle, but it is a darker color. 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 Assessment/Plan Assessment and Plan Assess & Plan/Chief Complaint Assessment: Sepsis Right great toe ulceration with abscess and severe cellulitis rising up into the leg Severe neuropathy Alcoholism with withdrawal Smoker with small vessel disease Hypertension OOC due to withdrawal Anxiety PVD? Plan: Hep-locked IV fluids since sepsis is now cleared Empiric antibiotics Appreciate Dr. Christie and Dr. Gutiérrez Arterial ultrasound Dr Hansen consult for PVD and will perform angiogram prior to DC to improve chances of great toe resolution instead of amputation Diagnosis/Problems Diagnosis/Problems (1) Sepsis Status: Acute Qualifiers: Sepsis type: sepsis due to unspecified organism Qualified Codes: A41.9 - Sepsis, unspecified organism (2) Cellulitis of right lower leg Status: Acute (3) Abscess of toe, right Status: Acute (4) Hypertension Status: Chronic Qualifiers: Hypertension type: essential hypertension Qualified Codes: I10 - Essential (primary) hypertension (5) Anxiety Status: Chronic (6) Alcoholism Status: Chronic (7) Smoker Status: Chronic (8) Neuropathy Status: Chronic (9) Ulcer of great toe Status: Acute Qualifiers: Laterality: right Non-pressure ulcer stage: with fat layer exposed Qualified Codes: L97.512 - Non-pressure chronic ulcer of other part of right foot with fat layer exposed Clinical Quality Measures DVT/VTE Risk/Contraindication: Risk Factor Score Per Nursin RFS Level Per Nursing on Admit: 2=Moderate Contraindications-Mechi: Other *list below* Other: cellulitis HARDY CAMPBELL DO May 27, 2019 11:21
[2019-05-27] MEDS ORDERED: SPIRONOLACTONE 25 MG (ALDACTONE) TAB PO NR (11:30)
[2019-05-27] MEDS ORDERED: MAGNESIUM 1 GM/100 ML IVPB 100 ML IV ONE (11:30)
[2019-05-27] MEDS: POTASSIUM CL 10MEQ/50ML IVPB 50 ML IV SCH ×7 (12:12→17:46)
[2019-05-27] MEDS: hydrALAZINE (APRESOLINE) 25 MG TAB PO SCH ×2 (12:18→21:36)
[2019-05-27] MEDS: LOPERAMIDE 2 MG (IMODIUM) TABLET PO PRN ×2 (13:53→21:36)
--- NOTE | 2019-05-27 14:12 | Progress Note - Surgery ---
Subjective Time Seen by a Provider: 12:02 Subjective/Events-last exam Pt seen and examined, spoke with pt and his about future care. They are under the impression that angiogram with possible treatment will be taking place tomorrow. I explained to them that this still does not mean he won't lose his toe. Spent some time talking with them and answering questions. Pt states less pain today. Review of Systems General: No Chills, No Night Sweats Pulmonary: No Dyspnea, No Cough Cardiovascular: No: Chest Pain, Palpitations Gastrointestinal: No: Nausea, Vomiting Focused Exam Lactate Level 05/24/19 18:25: Lactic Acid Level 2.95*H 05/24/19 20:43: Lactic Acid Level 2.00 Objective Exam Vital Signs Date Time Temp Pulse Resp B/P (MAP) Pulse Ox O2 Delivery O2 Flow Rate FiO2 05/27/19 13:00 76 05/27/19 12:00 98.5 74 18 156/84 (108) 94 Room Air 05/27/19 09:00 Room Air 05/27/19 08:06 85 92 21 05/27/19 08:06 92 Room Air 05/27/19 08:00 98.4 88 18 195/102 (133) 95 Room Air 05/27/19 07:00 83 05/27/19 04:00 98.9 86 20 170/93 (118) 92 Room Air 05/27/19 01:03 99.2 95 20 174/96 (122) 91 Room Air 05/27/19 01:00 92 05/27/19 00:49 99.2 95 20 174/96 (122) 91 Room Air 05/26/19 20:05 99.8 97 20 177/96 (123) 93 Room Air 05/26/19 20:00 Room Air 05/26/19 19:06 Room Air 05/26/19 19:00 97 05/26/19 16:45 99.7 95 18 165/97 (119) 91 Room Air I & O 05/27/19 07:00 Intake Total 3164 ml Output Total 1595 ml Balance 1569 ml Capillary Refill : General Appearance: No Apparent Distress, WD/WN HEENT: PERRL/EOMI, Moist Mucous Membranes Neck: Normal Inspection Respiratory: Chest Non Tender, Lungs Clear, Normal Breath Sounds, No Accessory Muscle Use, No Respiratory Distress Cardiovascular: Regular Rate, Rhythm, No Murmur Gastrointestinal: normal bowel sounds, non tender, soft, no organomegaly, no pulsatile mass Extremity: Pedal Edema (bilaterally +1, better than yesterday), Other (It appears that all erythema in right leg has gone away and the darker color seen yesterday has also resolved. 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 Skin: Other (right foot and toe with ulceration and cellulitis and drainage from toe) Results Lab Laboratory Tests 05/27/19 05:22: White Blood Count 10.7, Red Blood Count 3.50L, Hemoglobin 13.4, Hematocrit 37L, Mean Corpuscular Volume 106H, Mean Corpuscular Hemoglobin 38H, Mean Corpuscular Hemoglobin Concent 36, Red Cell Distribution Width 15.7H, Platelet Count 177, Mean Platelet Volume 9.5, Neutrophils (%) (Auto) 76H, Lymphocytes (%) (Auto) 12, Monocytes (%) (Auto) 9, Eosinophils (%) (Auto) 2, Basophils (%) (Auto) 1, Neutrophils # (Auto) 8.2H, Lymphocytes # (Auto) 1.3, Monocytes # (Auto) 1.0, Eosinophils # (Auto) 0.2, Basophils # (Auto) 0.1, Sodium Level 139, Potassium Level 2.6L, Chloride Level 105, Carbon Dioxide Level 22, Anion Gap 12, Blood Urea Nitrogen 6L, Creatinine 0.92, Estimat Glomerular Filtration Rate > 60, BUN/Creatinine Ratio 7, Glucose Level 106H, Calcium Level 7.8L, Corrected Calcium 8.5, Magnesium Level 1.3L, Total Bilirubin 1.3H, Aspartate Amino Transf (AST/SGOT) 27, Alanine Aminotransferase (ALT/SGPT) 17, Alkaline Phosphatase 92, Total Protein 5.9L, Albumin 3.1L Microbiology 05/24/19 Blood Culture - Preliminary, Resulted No growth Assessment/Plan Assessment/Plan Assessment/Plan Right 1st Toe necrotic Tissue Cellulitis right foot and lower leg - improved Neuropathy Continue local wound care with Dakins solutions on his toe, elevate the leg and continue IV ABX started; could probably switch to oral ABX tomorrow. Pt may be getting Interventional Cardiology angiogram and stenting tomorrow. No osteomyelitis seen on X-ray although MRI is best test for this. Will continue to hold-off on surgical debridement. Toe may get better with arterial inflow treatment; could get worse, will monitor and follow along. Clinical Quality Measures DVT/VTE Risk/Contraindication: Risk Factor Score Per Nursin RFS Level Per Nursing on Admit: 2=Moderate Contraindications-Mechi: Other *list below* Other: cellulitis RAVINDER GONZALEZ DO May 27, 2019 14:12
[2019-05-27] MEDS: LACTOBACILLUS ACIDOPHILUS (PROBIOTIC) CAPSULE PO SCH ×2 (16:39→21:35)
[2019-05-27] MEDS: ENOXAPARIN 40 MG/0.4 ML (LOVENOX) SYR SC SCH (16:46)
--- NOTE | 2019-05-27 18:01 | Cardiology Progress Note ---
Cardiology SOAP Progress Note Subjective: No dyspnea or chest pain. Objective: I&O/Vital Signs 05/27/19 05/27/19 05/27/19 05/27/19 07:00 08:00 08:06 08:06 Temp 98.4 Pulse 83 88 85 Resp 18 B/P (MAP) 195/102 (133) Pulse Ox 95 92 92 O2 Delivery Room Air Room Air FiO2 21 05/27/19 05/27/19 05/27/19 05/27/19 09:00 12:00 13:00 16:12 Temp 98.5 99.0 Pulse 74 76 83 Resp 18 18 B/P (MAP) 156/84 (108) 180/99 (126) Pulse Ox 94 92 O2 Delivery Room Air Room Air Room Air 05/27/19 00:00 Intake Total 2164 ml Output Total 1225 ml Balance 939 ml Weight (Pounds): 219 Weight (Ounces): 0.0 Weight (Calculated Kilograms): [id number] Constitutional: appears stated age, AAO x 3; No apparent distress; well- developed, well-nourished Respiratory: No accessory muscle use, No respiratory distress, No chest tender, No chest expansion is symmetric; chest is bilaterally symmetric; No lungs clear to percussion; lungs clear to auscultation; No crackles, No rhonchi, No rales, No stridor, No wheezing, No pleural rub, No other Cardiovascular: regular rate-rhythm; No irregularly irregular, No extra beats, No parasternal heave is noted, No JVD, No edema, No bradycardia, No tachycardia, No point of maximal impulse, No cardiac thrills are palpable; S1 and S2; No gallop/S3, No gallop/S4, No diastolic murmur, No systolic murmur, No friction rub, No click, No other Gastrointestional: No tender, No soft, No round, No distended, No pulsatile mass, No organomegaly, No guarding, No rebound, No tenderness, No hernia, No mass, No audible bowel sounds, No abnormal bowel sounds, No abdominal bruits, No spleenomegaly, No other Extremities: No normal range of motion, No non-tender, No normal inspection, No pedal edema, No calf tenderness, No normal capillary refill, No pelvis stable, No calf tenderness, No inflammation, No pedal edema, No slow capillary refill, No swelling, No other, No abrasion, No clubbing, No cyanosis, No ecchymosis, No laceration, No no lower extremity edema bilateral, No significant edema, No tenderness; wound (right great toe) Neurologic/Psychiatric: no motor/sensory deficits, alert, normal mood/affect, oriented x 3, power is 5/5 both on sides Skin: No rash, No ulcerations Results/Procedures: Labs Laboratory Tests 05/27/19 05:22: White Blood Count 10.7, Red Blood Count 3.50L, Hemoglobin 13.4, Hematocrit 37L, Mean Corpuscular Volume 106H, Mean Corpuscular Hemoglobin 38H, Mean Corpuscular Hemoglobin Concent 36, Red Cell Distribution Width 15.7H, Platelet Count 177, Mean Platelet Volume 9.5, Neutrophils (%) (Auto) 76H, Lymphocytes (%) (Auto) 12, Monocytes (%) (Auto) 9, Eosinophils (%) (Auto) 2, Basophils (%) (Auto) 1, Neutrophils # (Auto) 8.2H, Lymphocytes # (Auto) 1.3, Monocytes # (Auto) 1.0, Eosinophils # (Auto) 0.2, Basophils # (Auto) 0.1, Sodium Level 139, Potassium Level 2.6L, Chloride Level 105, Carbon Dioxide Level 22, Anion Gap 12, Blood Urea Nitrogen 6L, Creatinine 0.92, Estimat Glomerular Filtration Rate > 60, BUN/Creatinine Ratio 7, Glucose Level 106H, Calcium Level 7.8L, Corrected Calcium 8.5, Magnesium Level 1.3L, Total Bilirubin 1.3H, Aspartate Amino Transf (AST/SGOT) 27, Alanine Aminotransferase (ALT/SGPT) 17, Alkaline Phosphatase 92, Total Protein 5.9L, Albumin 3.1L Microbiology 05/24/19 Blood Culture - Preliminary, Resulted No growth A/P: Assessment/Dx: Right great toe cellulitis, abscess, nonhealing ulcer, Likely critical limb ischemia, Hypertension, Active smoking Plan: IV fluids, wound care and general surgery following. Critical limb ischemia, with right arterial lower extremity ultrasound demonstrating strong possibility of high-grade stenosis. Will likely require peripheral angiogram with possible intervention. I will discuss with the primary team as well as consultants about the appropriate time for peripheral angiogram. I recommend aspirin and Plavix. High-dose statin therapy. Smoking cessation was strongly recommended. Thank you for your consultation. Please call me if you have any questions. Salvatore Hansen MD, FACP, FACC, FSCAI, FHRS, CCDS Interventional Cardiology Cardiac Electrophysiology Vascular Medicine and Endovascular Interventions Focused Exam Lactate Level 05/24/19 18:25: Lactic Acid Level 2.95*H 05/24/19 20:43: Lactic Acid Level 2.00 Isamar HANSEN MD May 27, 2019 18:01
[2019-05-27] MEDS ORDERED: FUROSEMIDE 40 MG/4 ML INJ (LASIX) ONE (18:29)
[2019-05-27] MEDS ORDERED: FUROSEMIDE 40 MG/4 ML INJ (LASIX) IVP ONE (18:30)
[2019-05-27] MEDS ORDERED: amLODIPine 5 MG (NORVASC) TAB PO ONE (18:30)
[2019-05-27] MEDS: ATENOLOL 25 MG (TENORMIN) TAB PO SCH (21:36)
[2019-05-27] MEDS: LORazepam INJ 2 MG/ML (ATIVAN) VIAL IM/IV PRN (21:39)
[2019-05-28] VITALS (13 sets, daily range): BP systolic 108–151; BP diastolic 63–86
[2019-05-28] MEDS: PIPERACILLIN/TAZO 4.5 GM/NS 100 ML IV SCH ×6 (01:00→17:56)
[2019-05-28 05:49] LABS: BASOPHILS % (AUTO) 0 % (0-10); EOSINOPHILS # (AUTO) 0.2 10^3/uL (0.0-0.3); EOSINOPHILS % (AUTO) 2 % (0-10); HEMATOCRIT 37 % (40-54); HEMOGLOBIN 12.9 G/DL (13.3-17.7); LYMPHOCYTES # (AUTO) 1.2 X 10^3 (1.0-4.0); LYMPHOCYTES % (AUTO) 11 % (12-44); MEAN CORPUSCULAR HEMOGLOBIN 38 PG (25-34); MEAN CORPUSCULAR HGB CONC 35 G/DL (32-36); MEAN CORPUSCULAR VOLUME 109 FL (80-99); MEAN PLATELET VOLUME 9.5 FL (7.4-10.4); MONOCYTES # (AUTO) 1.2 X 10^3 (0.0-1.0); MONOCYTES % (AUTO) 11 % (0-12); NEUTROPHILS % (AUTO) 76 % (42-75); PLATELET COUNT 161 10^3/uL (130-400); RED CELL DISTRIBUTION WIDTH 15.5 % (10.0-14.5); WHITE BLOOD COUNT 10.6 10^3/uL (4.3-11.0)
[2019-05-28] MEDS: KCL 10 MEQ TAB (MICRO K) PO SCH ×4 (05:51→17:56)
[2019-05-28] MEDS: LACTOBACILLUS ACIDOPHILUS (PROBIOTIC) CAPSULE PO SCH ×4 (05:51→20:16)
[2019-05-28] MEDS: VANCOMYCIN 1,750 MG/NS 500 ML IVPB IV SCH ×4 (05:53→18:41)
[2019-05-28 06:24] LABS: ALANINE AMINOTRANSFERASE 14 U/L (0-55); ALBUMIN 2.9 GM/DL (3.2-4.5); ALKALINE PHOSPHATASE 85 U/L (40-136); BILIRUBIN,TOTAL 1.6 MG/DL (0.1-1.0); BUN/CREATININE RATIO 7; CALCIUM 8.1 MG/DL (8.5-10.1); CARBON DIOXIDE 21 MMOL/L (21-32); CHLORIDE 106 MMOL/L (98-107); CREATININE SERUM 1.22 MG/DL (0.60-1.30); GFR ESTIMATED > 60; GLUCOSE 100 MG/DL (70-105); MAGNESIUM 1.3 MG/DL (1.8-2.4); POTASSIUM 2.7 MMOL/L (3.6-5.0); SODIUM 140 MMOL/L (135-145); TOTAL PROTEIN 5.7 GM/DL (6.4-8.2)
[2019-05-28] MEDS: SPIRONOLACTONE 25 MG (ALDACTONE) TAB PO SCH (08:14)
[2019-05-28] MEDS: hydrALAZINE (APRESOLINE) 25 MG TAB PO SCH ×3 (08:14→20:16)
[2019-05-28] MEDS: ATENOLOL 25 MG (TENORMIN) TAB PO SCH ×2 (08:14→20:16)
[2019-05-28] MEDS: SENNA W/DOCUSATE (SENOKOT S) TABLET PO SCH ×2 (08:14→23:10)
[2019-05-28] MEDS: amLODIPine 5 MG (NORVASC) TAB PO SCH (08:14)
[2019-05-28] MEDS: LORazepam 1 MG (ATIVAN) TAB PO PRN ×2 (08:15→23:22)
[2019-05-28] MEDS: DAKIN'S 1/4 STRENGTH (0.125%) 473 ML BTL TOP SCH ×2 (08:22→23:10)
[2019-05-28] MEDS ORDERED: CLOPIDOGREL 75 MG (PLAVIX) TABLET PO NR (09:45)
[2019-05-28] MEDS ORDERED: ASPIRIN E.C. 81 MG (ECOTRIN) TAB PO NR (09:45)
[2019-05-28] MEDS: MAGNESIUM 1 GM/100 ML IVPB 100 ML IV SCH ×2 (10:02→10:03)
[2019-05-28] MEDS: POTASSIUM CL 10MEQ/50ML IVPB 50 ML IV SCH ×3 (10:02→10:04)
--- NOTE | 2019-05-28 10:19 | Progress Note ---
Subjective Date Seen by a Provider: May 28, 2019 Time Seen by a Provider: 09:45 Subjective/Events-last exam Right leg is much improved. It appears that his alcohol withdrawal has resolved since his BP is 129/76. Multiple meds were given for the severely high BP related to the smoking and alcohol cessation. Awaiting angiogram plan from Dr. Hansen. Trying to salvage the great toe to prevent an amputation. Smoking cessation and alcohol consumption cessation was counseled in depth, I told him he was at a crossroads and those two vices were affecting his health in a major way. Pt is aware of all of this and agrees with the plan. Will continue treatment plan. Will initiate ambulation in the halls today and hopefully obtain angiogram by Dr. Hansen in order to open up any stenotic vessels in order to salvage the great toe. Review of Systems General: Fatigue Musculoskeletal: leg pain, foot pain Objective Exam Last Set of Vital Signs Vital Signs Date Time Temp Pulse Resp B/P (MAP) Pulse Ox O2 Delivery O2 Flow Rate FiO2 05/28/19 08:00 91 Room Air 05/28/19 08:00 99.7 75 20 125/77 (93) 05/27/19 08:06 21 Capillary Refill : I&O Intake and Output 05/28/19 00:00 Intake Total 3307.5 ml Output Total 2770 ml Balance 537.5 ml Intake Oral 2450 ml IV Total 857.5 ml Output Urine Total 2770 ml # Voids 4 # Bowel Movements 12 General: Alert, Oriented X3, Cooperative, No Acute Distress HEENT: Atraumatic, PERRLA Lungs: Clear to Auscultation, Normal Air Movement Heart: Regular Rate, Normal S1, Normal S2, No Murmurs Neuro: Normal Gait, Normal Speech, Strength at 5/5 X4 Ext, Normal Tone Psych/Mental Status: Mental Status NL, Mood NL Results Lab Laboratory Tests 05/28/19 05:40: White Blood Count 10.6, Red Blood Count 3.41L, Hemoglobin 12.9L, Hematocrit 37L, Mean Corpuscular Volume 109H, Mean Corpuscular Hemoglobin 38H, Mean Corpuscular Hemoglobin Concent 35, Red Cell Distribution Width 15.5H, Platelet Count 161, Mean Platelet Volume 9.5, Neutrophils (%) (Auto) 76H, Lymphocytes (%) (Auto) 11L , Monocytes (%) (Auto) 11, Eosinophils (%) (Auto) 2, Basophils (%) (Auto) 0, Neutrophils # (Auto) 8.0H, Lymphocytes # (Auto) 1.2, Monocytes # (Auto) 1.2H, Eosinophils # (Auto) 0.2, Basophils # (Auto) 0.0, Sodium Level 140, Potassium Level 2.7L, Chloride Level 106, Carbon Dioxide Level 21, Anion Gap 13, Blood Urea Nitrogen 8, Creatinine 1.22, Estimat Glomerular Filtration Rate > 60, BU N/Creatinine Ratio 7, Glucose Level 100, Calcium Level 8.1L, Corrected Calcium 9.0, Magnesium Level 1.3L, Total Bilirubin 1.6H, Aspartate Amino Transf (AST/SGOT) 26, Alanine Aminotransferase (ALT/SGPT) 14, Alkaline Phosphatase 85, Total Protein 5.7L, Albumin 2.9L Microbiology 05/24/19 Blood Culture - Preliminary, Resulted No growth Assessment/Plan Assessment/Plan Assess & Plan/Chief Complaint Assessment: Sepsis Right great toe ulceration with abscess and severe cellulitis rising up into the leg Severe neuropathy Alcoholism with withdrawal Smoker with small vessel disease Hypertension OOC due to withdrawal Anxiety PVD? Plan: Hep-locked IV fluids since sepsis is now cleared Empiric antibiotics Appreciate Dr. Christie and Dr. Gutiérrez Arterial ultrasound Dr Hansen consult for PVD and will perform angiogram prior to DC to improve chances of great toe resolution instead of amputation Diagnosis/Problems Diagnosis/Problems (1) Sepsis Status: Acute Qualifiers: Qualified Codes: A41.9 - Sepsis, unspecified organism (2) Cellulitis of right lower leg Status: Acute (3) Abscess of toe, right Status: Acute (4) Hypertension Status: Chronic Qualifiers: Qualified Codes: I10 - Essential (primary) hypertension (5) Anxiety Status: Chronic (6) Alcoholism Status: Chronic (7) Smoker Status: Chronic (8) Neuropathy Status: Chronic (9) Ulcer of great toe Status: Acute Qualifiers: Qualified Codes: L97.512 - Non-pressure chronic ulcer of other part of right foot with fat layer exposed Clinical Quality Measures DVT/VTE Risk/Contraindication: Risk Factor Score Per Nursin RFS Level Per Nursing on Admit: 2=Moderate Contraindications-Mechi: Other *list below* Other: cellulitis HARDY CAMPBELL DO May 28, 2019 10:19
--- NOTE | 2019-05-28 10:34 | NUR ---
PRIOR TO A.M. MEDICATIONS PULSE WAS 75 BPM AND B/P WAS 125/77.
--- NOTE | 2019-05-28 12:13 | NUR ---
prior to noon medications pulse was 78 bpm and b/p was 119/70.
--- NOTE | 2019-05-28 12:54 | Cardiology Progress Note ---
Cardiology SOAP Progress Note Subjective: No complaints. Objective: I&O/Vital Signs 05/28/19 05/28/19 05/28/19 05/28/19 01:00 04:00 07:00 08:00 Temp 99.2 99.7 Pulse 81 83 73 75 Resp 20 20 B/P (MAP) 110/63 (79) 125/77 (93) Pulse Ox 91 95 O2 Delivery Room Air Room Air 05/28/19 08:00 Pulse Ox 91 O2 Delivery Room Air 05/28/19 00:00 Intake Total 1790 ml Output Total 2400 ml Balance -610 ml Weight (Pounds): 219 Weight (Ounces): 0.0 Weight (Calculated Kilograms): 99.356604 Constitutional: appears stated age, AAO x 3; No apparent distress; well-develop ed, well-nourished Respiratory: No accessory muscle use, No respiratory distress, No chest tender, No chest expansion is symmetric; chest is bilaterally symmetric; No lungs clear to percussion; lungs clear to auscultation; No crackles, No rhonchi, No rales, No stridor, No wheezing, No pleural rub, No other Cardiovascular: regular rate-rhythm; No irregularly irregular, No extra beats, No parasternal heave is noted, No JVD, No edema, No bradycardia, No tachycardia, No point of maximal impulse, No cardiac thrills are palpable; S1 and S2; No gallop/S3, No gallop/S4, No diastolic murmur, No systolic murmur, No friction rub, No click, No other Gastrointestional: No tender, No soft, No round, No distended, No pulsatile mass, No organomegaly, No guarding, No rebound, No tenderness, No hernia, No mass, No audible bowel sounds, No abnormal bowel sounds, No abdominal bruits, No spleenomegaly, No other Extremities: No normal range of motion, No non-tender, No normal inspection, No pedal edema, No calf tenderness, No normal capillary refill, No pelvis stable, N o calf tenderness, No inflammation, No pedal edema, No slow capillary refill, No swelling, No other, No abrasion, No clubbing, No cyanosis, No ecchymosis, No laceration, No no lower extremity edema bilateral, No significant edema, No tenderness; wound (right great toe) Neurologic/Psychiatric: no motor/sensory deficits, alert, normal mood/affect, oriented x 3, power is 5/5 both on sides Skin: No rash, No ulcerations Results/Procedures: Labs Laboratory Tests 05/28/19 05:40: White Blood Count 10.6, Red Blood Count 3.41L, Hemoglobin 12.9L, Hematocrit 37L, Mean Corpuscular Volume 109H, Mean Corpuscular Hemoglobin 38H, Mean Corpuscular Hemoglobin Concent 35, Red Cell Distribution Width 15.5H, Platelet Count 161, Mean Platelet Volume 9.5, Neutrophils (%) (Auto) 76H, Lymphocytes (%) (Auto) 11L , Monocytes (%) (Auto) 11, Eosinophils (%) (Auto) 2, Basophils (%) (Auto) 0, Neutrophils # (Auto) 8.0H, Lymphocytes # (Auto) 1.2, Monocytes # (Auto) 1.2H, Eosinophils # (Auto) 0.2, Basophils # (Auto) 0.0, Sodium Level 140, Potassium Level 2.7L, Chloride Level 106, Carbon Dioxide Level 21, Anion Gap 13, Blood Urea Nitrogen 8, Creatinine 1.22, Estimat Glomerular Filtration Rate > 60, BUN/Creatinine Ratio 7, Glucose Level 100, Calcium Level 8.1L, Corrected Calcium 9.0, Magnesium Level 1.3L, Total Bilirubin 1.6H, Aspartate Amino Transf (AST/SGOT) 26, Alanine Aminotransferase (ALT/SGPT) 14, Alkaline Phosphatase 85, Total Protein 5.7L, Albumin 2.9L Microbiology 05/24/19 Blood Culture - Preliminary, Resulted No growth A/P: Assessment/Dx: Right great toe cellulitis, abscess, nonhealing ulcer, Likely critical limb ischemia, Hypertension, Active smoking Plan: IV fluids, wound care and general surgery following. Critical limb ischemia, with right arterial lower extremity ultrasound demonstrating strong possibility of high-grade stenosis. Peripheral angiography this afternoon. I recommend aspirin and Plavix. High-dose statin therapy. Smoking cessation was strongly recommended. Thank you for your consultation. Please call me if you have any questions. Salvatore Hansen MD, FACP, FACC, FSCAI, FHRS, CCDS Interventional Cardiology Cardiac Electrophysiology Vascular Medicine and Endovascular Interventions Isamar HANSEN MD May 28, 2019 12:54 pm
[2019-05-28] MEDS ORDERED: NS IV 1000 ML 1,000 ML ONE (14:04)
[2019-05-28] MEDS ORDERED: LIDOCAINE 1% INJ 20 ML 20 ML VIAL ONE (14:04)
[2019-05-28] MEDS ORDERED: HEParin (CATH LAB) 2,000 ML IV ONE (14:04)
[2019-05-28] MEDS ORDERED: fentaNYL INJECTION 100 MCG/2 ML AMP ONE (15:29)
[2019-05-28] MEDS ORDERED: MIDAZOLAM 5 MG/5 ML (VERSED) VIAL ONE (15:29)
--- NOTE | 2019-05-28 15:40 | Progress Note - Surgery ---
Subjective Time Seen by a Provider: 15:12 Subjective/Events-last exam Pt seen and examined, he is waiting to go down for his angiogram. He thinks he is doing better, his only complaint is that he finally ate and he ate too much. Review of Systems General: No Chills, No Night Sweats Pulmonary: No Dyspnea, No Cough Cardiovascular: No: Chest Pain, Palpitations Gastrointestinal: No: Nausea, Vomiting, Abdominal Pain Objective Exam Vital Signs Date Time Temp Pulse Resp B/P (MAP) Pulse Ox O2 Delivery O2 Flow Rate FiO2 05/28/19 12:00 99.1 78 20 119/70 (86) 94 Room Air 05/28/19 08:00 91 Room Air 05/28/19 08:00 99.7 75 20 125/77 (93) 95 Room Air 05/28/19 07:00 73 05/28/19 04:00 99.2 83 20 110/63 (79) 91 Room Air 05/28/19 01:00 81 05/28/19 00:00 99.4 84 20 129/74 (92) 94 Room Air 05/27/19 20:30 92 Room Air 05/27/19 20:28 99.2 91 18 172/88 (116) 92 Room Air 05/27/19 19:49 102 05/27/19 18:43 192/90 (124) 05/27/19 16:12 99.0 83 18 180/99 (126) 92 Room Air I & O 05/28/19 07:00 Intake Total 2557.5 ml Output Total 3700 ml Balance -1142.5 ml Capillary Refill : General Appearance: No Apparent Distress, WD/WN HEENT: PERRL/EOMI, Moist Mucous Membranes Respiratory: Chest Non Tender, Lungs Clear, Normal Breath Sounds, No Accessory Muscle Use, No Respiratory Distress Cardiovascular: Regular Rate, Rhythm, No Murmur Gastrointestinal: normal bowel sounds, non tender, soft, no organomegaly, no pulsatile mass Extremity: Pedal Edema (right ankle and foot only +1-2), Other (erythema is gone, 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, Normal Mood/Affect, stunt driver II-XII Norm as Tested Skin: Other (right foot and toe with ulceration and cellulitis and drainage from toe) Results Lab Laboratory Tests 05/28/19 05:40: White Blood Count 10.6, Red Blood Count 3.41L, Hemoglobin 12.9L, Hematocrit 37L, Mean Corpuscular Volume 109H, Mean Corpuscular Hemoglobin 38H, Mean Corpuscular Hemoglobin Concent 35, Red Cell Distribution Width 15.5H, Platelet Count 161, Mean Platelet Volume 9.5, Neutrophils (%) (Auto) 76H, Lymphocytes (%) (Auto) 11L , Monocytes (%) (Auto) 11, Eosinophils (%) (Auto) 2, Basophils (%) (Auto) 0, Neutrophils # (Auto) 8.0H, Lymphocytes # (Auto) 1.2, Monocytes # (Auto) 1.2H, Eosinophils # (Auto) 0.2, Basophils # (Auto) 0.0, Sodium Level 140, Potassium Level 2.7L, Chloride Level 106, Carbon Dioxide Level 21, Anion Gap 13, Blood Urea Nitrogen 8, Creatinine 1.22, Estimat Glomerular Filtration Rate > 60, BUN/Creatinine Ratio 7, Glucose Level 100, Calcium Level 8.1L, Corrected Calcium 9.0, Magnesium Level 1.3L, Total Bilirubin 1.6H, Aspartate Amino Transf (AST/SGOT) 26, Alanine Aminotransferase (ALT/SGPT) 14, Alkaline Phosphatase 85, Total Protein 5.7L, Albumin 2.9L Microbiology 05/24/19 Blood Culture - Preliminary, Resulted No growth Assessment/Plan Assessment/Plan Assessment/Plan Right 1st Toe necrotic Tissue Cellulitis right foot and lower leg - improved Neuropathy Continue local wound care, elevate the leg and continue IV ABX; ??switch to oral ABX. Pt waiting to get Interventional Cardiology angiogram and possible stenting. Will continue to hold-off on surgical debridement. Hopefully toe gets better with arterial inflow treatment; could get worse, will monitor and follow along. Clinical Quality Measures DVT/VTE Risk/Contraindication: Risk Factor Score Per Nursin RFS Level Per Nursing on Admit: 2=Moderate Contraindications-Mechi: Other *list below* Other: cellulitis RAVINDER GONZALEZ DO May 28, 2019 15:40
--- NOTE | 2019-05-28 17:27 | Cardiac Procedure Note-CS/ASA ---
Pre-Procedure Note Pre-Op Procedure Note H&P Reviewed The H&P was reviewed, patient examined and no changes noted. Date H&P Reviewed: May 28, 2019 Time H&P Reviewed: 16:00 Conscious Sedation Pre-Proced Time 16:00 ASA Score 3 For ASA 3 and 4: Consider anesthesia and medical clearance. Also, for patients with a history of failed moderate sedation consider anesthesia. Airway Lungs Heart ASA score ASA 1: a normal healthy patient ASA 2: a patient with a mild systemic disease (mid diabetes, controlled hypertension, obesity ASA 3: a patient with a severe systemic disease that limits activity (angina, COPD, prior Myocardial infarction) ASA 4: a patient with an incapacitating disease that is a constant threat to life (CHF, renal failure) ASA 5: a moribund patient not expected to survive 24 hrs. (ruptured aneurysm) ASA 6: a declared brain- patient whose organs are being harvested. For emergent operations, add the letter E after the classification Mallampati Classification Grade 1 Sedation Plan Analgesia, Amnesia, Plan communicated to team members, Discussed options with patient/fam, Discussed risks with patient/fam The patient is an appropriate candidate to undergo the planned procedure, sedation, and anesthesia. The patient immediately re-assessed prior to indication. Isamar MARTINEZ MD May 28, 2019 5:27 pm
--- NOTE | 2019-05-28 17:32 | Coronary Angiography Report ---
Peripheral Angiography DATE OF SERVICE: 05/28/19 PRIMARY PHYSICIAN: Romana Martínez DO OTHER CONSULTANTS: Dr Gutiérrez, Dr Christie PERFORMING INTERVENTIONALIST: Dr. Salvatore Hansen INDICATION: Nonhealing ulcer on the right great toe. PREOPERATIVE INDICATION: Nonhealing ulcer on the right great toe. POSTOPERATIVE DIAGNOSIS: No significant PAD. HISTORY: This is a 58-year-old gentleman who has history of active smoking. He presents with nonhealing ulcer on the right great toe. Ultrasound examination showed monophasic flow however no focal stenosis was identified. Peripheral angiography was recommended to evaluate for vascular stenosis. PROCEDURE PERFORMED: 1. Abdominal aortogram with bilateral nonselective renal angiogram. 2. Bilateral lower extremity runoff. SPECIMENS: None. ANESTHESIA: Conscious sedation. BLOOD LOSS: 20 mL. COMPLICATIONS: None. CONTRAST USED: 82 ml. FLUOROSCOPY DOSE: 301 Mgy. FLUOROSCOPY TIME: 1.3 minutes. ANTICOAGULATION: none. DESCRIPTION OF PROCEDURE: The patient was brought to the electroplating laborer after informed consent was taken. All the risks and complications were explained in detail. The patient was draped and prepped in the usual sterile fashion. Access was gained in the left femoral artery with a 5 Welsh sheath. We advanced a pigtail catheter on top of a 0.035 wire. The pigtail catheter was placed just above the level of the origin of the renal arteries. Abdominal aortogram with nonselective bilateral renal angiogram was done. The catheter was then pulled back just above the bifurcation into the iliac arteries. A lower extremity runoff was performed. FINDINGS: Patent abdominal aorta as well as bilateral renal arteries. Patent bilateral iliac arteries, femoral arteries, popliteal arteries, and three-vessel runoff bilaterally below the knee with no significant disease. CONCLUSION: No significant PAD is observed. Nonvascular ulcers. Will discuss with the primary team and consultants. Salvatore Hansen MD, FACP, FACC, [facility] Vascular Medicine and Endovascular Interventions Isamar HANSEN MD May 28, 2019 5:32 pm
[2019-05-28] MEDS ORDERED: PATIENT MAY USE OWN MEDS, ALL PO SCH (17:45)
[2019-05-28] MEDS: NS IV 1000 ML 1,000 ML IV SCH (18:00)
[2019-05-28] MEDS ORDERED: TROUGH ORDER-PHARMACY XX NR (18:00)
--- NOTE | 2019-05-28 18:41 | NUR ---
PATIENT VANCOMYCIN HELD FOR CRITICAL LAB LEVEL OF 41.2.
--- NOTE | 2019-05-28 19:06 | NUR ---
TROUGH ON 05/28 @ 18:00 = 41.2 CALLED AND SPOKE TO RN HOLD ALL DOSES UNTIL PHARMACY RE-EVALUATES. TROUGH ORDERED FOR 05/29/19 @ 18:00.
[2019-05-28] MEDS: HYDROcodone/APAP 5 MG/325 MG (LORTAB) TAB PO PRN (20:16)
[2019-05-29 00:46] VITALS: BP 108/68
[2019-05-29] MEDS: PIPERACILLIN/TAZO 4.5 GM/NS 100 ML IV SCH ×6 (01:28→16:39)
[2019-05-29 04:00] VITALS: BP 126/72
[2019-05-29] MEDS: NS IV 1000 ML 1,000 ML IV SCH ×2 (04:56→13:17)
[2019-05-29 06:06] LABS: BASOPHILS # (AUTO) 0.1 10^3/uL (0.0-0.1); BASOPHILS % (AUTO) 1 % (0-10); EOSINOPHILS # (AUTO) 0.3 10^3/uL (0.0-0.3); EOSINOPHILS % (AUTO) 3 % (0-10); HEMATOCRIT 36 % (40-54); HEMOGLOBIN 12.3 G/DL (13.3-17.7); LYMPHOCYTES # (AUTO) 0.9 X 10^3 (1.0-4.0); LYMPHOCYTES % (AUTO) 8 % (12-44); MEAN CORPUSCULAR HEMOGLOBIN 38 PG (25-34); MEAN CORPUSCULAR HGB CONC 34 G/DL (32-36); MEAN CORPUSCULAR VOLUME 110 FL (80-99); MEAN PLATELET VOLUME 10.1 FL (7.4-10.4); MONOCYTES # (AUTO) 1.2 X 10^3 (0.0-1.0); MONOCYTES % (AUTO) 11 % (0-12); NEUTROPHILS # (AUTO) 8.4 X 10^3 (1.8-7.8); NEUTROPHILS % (AUTO) 78 % (42-75); PLATELET COUNT 156 10^3/uL (130-400); RED CELL DISTRIBUTION WIDTH 15.7 % (10.0-14.5); WHITE BLOOD COUNT 10.8 10^3/uL (4.3-11.0)
[2019-05-29 06:30] LABS: ALBUMIN 2.8 GM/DL (3.2-4.5); BILIRUBIN,TOTAL 0.8 MG/DL (0.1-1.0); CREATININE SERUM 2.33 MG/DL (0.60-1.30); MAGNESIUM 2.1 MG/DL (1.8-2.4); TOTAL PROTEIN 5.6 GM/DL (6.4-8.2)
[2019-05-29] MEDS: LACTOBACILLUS ACIDOPHILUS (PROBIOTIC) CAPSULE PO SCH ×4 (06:32→20:46)
[2019-05-29] MEDS: KCL 10 MEQ TAB (MICRO K) PO SCH ×3 (06:33→16:39)
[2019-05-29] MEDS: HYDROcodone/APAP 5 MG/325 MG (LORTAB) TAB PO PRN (06:33)
[2019-05-29 08:00] VITALS: BP 119/72
[2019-05-29] MEDS ORDERED: NS IV 1000 ML 1,000 ML IV SCH (08:30)
[2019-05-29] MEDS: ATENOLOL 25 MG (TENORMIN) TAB PO SCH ×2 (09:25→20:45)
[2019-05-29] MEDS: ASPIRIN E.C. 81 MG (ECOTRIN) TAB PO SCH (09:25)
[2019-05-29] MEDS: amLODIPine 5 MG (NORVASC) TAB PO SCH (09:25)
[2019-05-29] MEDS: CLOPIDOGREL 75 MG (PLAVIX) TABLET PO SCH (09:25)
[2019-05-29] MEDS: hydrALAZINE (APRESOLINE) 25 MG TAB PO SCH ×3 (09:25→20:45)
[2019-05-29] MEDS: SPIRONOLACTONE 25 MG (ALDACTONE) TAB PO SCH (09:27)
[2019-05-29] MEDS: DAKIN'S 1/4 STRENGTH (0.125%) 473 ML BTL TOP SCH ×2 (09:27→20:48)
[2019-05-29] MEDS: SENNA W/DOCUSATE (SENOKOT S) TABLET PO SCH ×2 (09:27→20:46)
--- NOTE | 2019-05-29 09:28 | Progress Note ---
Subjective Date Seen by a Provider: May 29, 2019 Time Seen by a Provider: 09:30 Subjective/Events-last exam Was planning on discharging today but creatinine went up to 2.3 after the a ngiogram contrast dye Maintained on IV fluids after cardiac caths so that will help flush Maintained on broad-spectrum antibiotics but will be DC Vancomycin since the trough is so high at 41 due to elevated creatinine Updated pt on the normal angiogram results and I did confer with Dr. 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 No longer has any pain Right foot looks very good Will plan on DC tomorrow with close follow up with Augmentin at DC Review of Systems General: Fatigue Objective Exam Last Set of Vital Signs Vital Signs Date Time Temp Pulse Resp B/P (MAP) Pulse Ox O2 Delivery O2 Flow Rate FiO2 05/29/19 08:00 99.3 80 18 119/72 (88) 93 Room Air 05/27/19 08:06 21 Capillary Refill : Less Than 3 Seconds I&O Intake and Output 05/29/19 00:00 Intake Total 2597.5 ml Output Total 2675 ml Balance -77.5 ml Intake Oral 1510 ml IV Total 1087.5 ml Output Urine Total 2675 ml # Bowel Movements 1 General: Alert, Oriented X3, Cooperative, No Acute Distress HEENT: Atraumatic, PERRLA Lungs: Clear to Auscultation, Normal Air Movement Heart: Regular Rate, Normal S1, Normal S2, No Murmurs Neuro: Normal Gait, Normal Speech, Strength at 5/5 X4 Ext, Normal Tone Psych/Mental Status: Mental Status NL, Mood NL Results Lab Laboratory Tests 05/28/19 18:10: Vancomycin Level Trough 41.2*H 05/29/19 05:47: White Blood Count 10.8, Red Blood Count 3.26L, Hemoglobin 12.3L, Hematocrit 36L, Mean Corpuscular Volume 110H, Mean Corpuscular Hemoglobin 38H, Mean Corpuscular Hemoglobin Concent 34, Red Cell Distribution Width 15.7H, Platelet Count 156, Mean Platelet Volume 10.1, Neutrophils (%) (Auto) 78H, Lymphocytes (%) (Auto) 8L , Monocytes (%) (Auto) 11, Eosinophils (%) (Auto) 3, Basophils (%) (Auto) 1, Neutrophils # (Auto) 8.4H, Lymphocytes # (Auto) 0.9L, Monocytes # (Auto) 1.2H, Eosinophils # (Auto) 0.3, Basophils # (Auto) 0.1, Sodium Level 137, Potassium Level 3.0L, Chloride Level 108H, Carbon Dioxide Level 18L, Anion Gap 11, Blood Urea Nitrogen 13, Creatinine 2.33H, Estimat Glomerular Filtration Rate 29, BUN/Creatinine Ratio 6, Glucose Level 113H, Calcium Level 8.0L, Corrected Calcium 9.0, Magnesium Level 2.1, Total Bilirubin 0.8, Aspartate Amino Transf (AST/SGOT) 29, Alanine Aminotransferase (ALT/SGPT) 15, Alkaline Phosphatase 78, Total Protein 5.6L, Albumin 2.8L Microbiology 05/24/19 Blood Culture - Preliminary, Resulted No growth Assessment/Plan Assessment/Plan Assess & Plan/Chief Complaint Assessment: Sepsis Right great toe ulceration with abscess and severe cellulitis rising up into the leg Severe neuropathy Alcoholism with withdrawal Smoker with small vessel disease Hypertension OOC due to withdrawal now resolved Anxiety PVD ruled out with normal angiogram POD # [address] Hansen ARF Plan: Hep-locked IV fluids since sepsis is now cleared Empiric antibiotics Appreciate Dr. Christie and Dr. Gutiérrez Arterial ultrasound reviewed Dr Hansen consult for PVD and cath was appreciated IVF Diagnosis/Problems Diagnosis/Problems (1) Sepsis Status: Resolved Qualifiers: Qualified Codes: A41.9 - Sepsis, unspecified organism Resolution Date/Time: 05/29/19 @ 19:19 (2) Cellulitis of right lower leg Status: Acute (3) Abscess of toe, right Status: Acute (4) Hypertension Status: Chronic Qualifiers: Qualified Codes: I10 - Essential (primary) hypertension (5) Anxiety Status: Chronic (6) Alcoholism Status: Chronic (7) Smoker Status: Chronic (8) Neuropathy Status: Chronic (9) Ulcer of great toe Status: Acute Qualifiers: Qualified Codes: L97.512 - Non-pressure chronic ulcer of other part of right foot with fat layer exposed (10) Acute renal insufficiency Status: Acute (11) Alcohol withdrawal Status: Acute Clinical Quality Measures DVT/VTE Risk/Contraindication: Risk Factor Score Per Nursin RFS Level Per Nursing on Admit: 2=Moderate Contraindications-Mechi: Other *list below* Other: cellulitis HARDY CAMPBELL DO May 29, 2019 09:28
--- NOTE | 2019-05-29 09:53 | Wound Care Assessment ---
Wound Care Assessment Date Seen by Provider: May 29, 2019 Time Seen by Provider: 09:30 Chief Complaint Infected R great toe ulcer. HPI The patient is a 58 year old male, with a long-standing history of neuropathy, and a three week history of ulceration of the R great toe. [place] It evolved into a ulcer and worsened in the last week. He is a current everyday smoker and has a history of alcohol abuse. He has chronic edema of BLE, but it has worsened on the R. He denies diabetes. 05/25/19 Interval Note: Seen at bedside. Less pain. Wound is clean by nursing report. Less erythema noted. Continue same dressings. 05/29/19 Interval note: No pain in foot. Had angio with no correctable occlusive disease. To be discharged tomorrow on Augmentin. The wound is overhead cleaner, with no residual deep slough. Will follow-up in [facility]ound [facility]. Past Medical History: Admits Heart Disease (arhythmia. Personal hx of neuropathy.) Smoking Status: Current Everyday Smoker Recreational Drug Use: No Alcohol Use: Regular Use Other Social Hx No interval change in PFSH. Review of Systems General: No Chills Pulmonary: Dyspnea (Mild) Cardiovascular: No: Chest Pain Gastrointestinal: No: Abdominal Pain Exam Vital Signs Date Time Temp Pulse Resp B/P (MAP) Pulse Ox O2 Delivery O2 Flow Rate FiO2 05/29/19 08:00 99.3 80 18 119/72 (88) 93 Room Air 05/27/19 08:06 21 Capillary Refill : Less Than 3 Seconds General Appearance: no apparent distress HEENT: normal ENT inspection Cardiovascular: regular rate, rhythm Respiratory: lungs clear Gastrointestinal: non tender Skin: other (R great toe ulcer -- 1.9 x 3.1 x 0.2 cm, base 100% exudate, less erythema.) Results Laboratory Tests 05/28/19 18:10: Vancomycin Level Trough 41.2*H 05/29/19 05:47: White Blood Count 10.8, Red Blood Count 3.26L, Hemoglobin 12.3L, Hematocrit 36L, Mean Corpuscular Volume 110H, Mean Corpuscular Hemoglobin 38H, Mean Corpuscular Hemoglobin Concent 34, Red Cell Distribution Width 15.7H, Platelet Count 156, Mean Platelet Volume 10.1, Neutrophils (%) (Auto) 78H, Lymphocytes (%) (Auto) 8L , Monocytes (%) (Auto) 11, Eosinophils (%) (Auto) 3, Basophils (%) (Auto) 1, Neutrophils # (Auto) 8.4H, Lymphocytes # (Auto) 0.9L, Monocytes # (Auto) 1.2H, Eosinophils # (Auto) 0.3, Basophils # (Auto) 0.1, Sodium Level 137, Potassium Level 3.0L, Chloride Level 108H, Carbon Dioxide Level 18L, Anion Gap 11, Blood Urea Nitrogen 13, Creatinine 2.33H, Estimat Glomerular Filtration Rate 29, BUN/Creatinine Ratio 6, Glucose Level 113H, Calcium Level 8.0L, Corrected Ryan cium 9.0, Magnesium Level 2.1, Total Bilirubin 0.8, Aspartate Amino Transf (AST/SGOT) 29, Alanine Aminotransferase (ALT/SGPT) 15, Alkaline Phosphatase 78, Total Protein 5.6L, Albumin 2.8L Microbiology 05/24/19 Blood Culture - Preliminary, Resulted No growth Assessment/Plan/Dx 1. R great toe ulcer, full thickness. 2. Peripheral neuropathy, dense. 3. Tobacco abuse and dependency. 4. R/O atherosclerotic arterial occlusive disease. 5. History of alcohol abuse. Plan: Continue Dakin's dressings. Will follow-up in Wound Clinic. PARVEEN GOEL MD May 29, 2019 09:53
[2019-05-29] MEDS ORDERED: RT-ALBUTEROL/IPRATROPIUM 3 ML (DUONEB) VIAL INH SCH ×2 (13:00→14:00)
--- NOTE | 2019-05-29 13:16 | Cardiology Progress Note ---
Cardiology SOAP Progress Note Subjective: Patient is complaining of shortness of breath. Objective: I&O/Vital Signs 05/29/19 05/29/19 05/29/19 05/29/19 02:52 04:00 07:00 08:00 Temp 100.5 99.3 Pulse 69 78 80 Resp 18 18 B/P (MAP) 126/72 (90) 119/72 (88) Pulse Ox 92 93 O2 Delivery Room Air Room Air Room Air 05/29/19 05/29/19 08:00 09:41 Pulse Ox 92 O2 Delivery Room Air Room Air 05/29/19 00:00 Intake Total 1260 ml Output Total 1375 ml Balance -115 ml Weight (Pounds): 219 Weight (Ounces): 0.0 Weight (Calculated Kilograms): 99.216003 Constitutional: appears stated age, AAO x 3; No apparent distress; well- developed, well-nourished Respiratory: No accessory muscle use, No respiratory distress, No chest tender, No chest expansion is symmetric; chest is bilaterally symmetric; No lungs clear to percussion; lungs clear to auscultation; No crackles, No rhonchi, No rales, No stridor, No wheezing, No pleural rub, No other Cardiovascular: regular rate-rhythm; No irregularly irregular, No extra beats, No parasternal heave is noted, No JVD, No edema, No bradycardia, No tachycardia, No point of maximal impulse, No cardiac thrills are palpable; S1 and S2; No gallop/S3, No gallop/S4, No diastolic murmur, No systolic murmur, No friction rub, No click, No other Gastrointestional: No tender, No soft, No round, No distended, No pulsatile mass, No organomegaly, No guarding, No rebound, No tenderness, No hernia, No mass, No audible bowel sounds, No abnormal bowel sounds, No abdominal bruits, No spleenomegaly, No other Extremities: No normal range of motion, No non-tender, No normal inspection, No pedal edema, No calf tenderness, No normal capillary refill, No pelvis stable, No calf tenderness, No inflammation, No pedal edema, No slow capillary refill, No swelling, No other, No abrasion, No clubbing, No cyanosis, No ecchymosis, No laceration, No no lower extremity edema bilateral, No significant edema, No tenderness; wound (right great toe) Neurologic/Psychiatric: no motor/sensory deficits, alert, normal mood/affect, oriented x 3, power is 5/5 both on sides Skin: No rash, No ulcerations Results/Procedures: Labs Laboratory Tests 05/28/19 18:10: Vancomycin Level Trough 41.2*H 05/29/19 05:47: White Blood Count 10.8, Red Blood Count 3.26L, Hemoglobin 12.3L, Hematocrit 36L, Mean Corpuscular Volume 110H, Mean Corpuscular Hemoglobin 38H, Mean Corpuscular Hemoglobin Concent 34, Red Cell Distribution Width 15.7H, Platelet Count 156, Mean Platelet Volume 10.1, Neutrophils (%) (Auto) 78H, Lymphocytes (%) (Auto) 8L , Monocytes (%) (Auto) 11, Eosinophils (%) (Auto) 3, Basophils (%) (Auto) 1, Neutrophils # (Auto) 8.4H, Lymphocytes # (Auto) 0.9L, Monocytes # (Auto) 1.2H, Eosinophils # (Auto) 0.3, Basophils # (Auto) 0.1, Sodium Level 137, Potassium Level 3.0L, Chloride Level 108H, Carbon Dioxide Level 18L, Anion Gap 11, Blood Urea Nitrogen 13, Creatinine 2.33H, Estimat Glomerular Filtration Rate 29, BUN/Creatinine Ratio 6, Glucose Level 113H, Calcium Level 8.0L, Corrected Calcium 9.0, Magnesium Level 2.1, Total Bilirubin 0.8, Aspartate Amino Transf (AST/SGOT) 29, Alanine Aminotransferase (ALT/SGPT) 15, Alkaline Phosphatase 78, Total Protein 5.6L, Albumin 2.8L Microbiology 05/24/19 Blood Culture - Preliminary, Resulted No growth A/P: Assessment/Dx: Right great toe cellulitis, abscess, nonhealing ulcer, No PAD on peripheral angiogram done 05/28/2019, Hypertension, Active smoking, Shortness of breath. Plan: IV fluids, wound care and general surgery following. No PAD on peripheral angiogram done on 05/28/2019. Patient is complaining of shortness of breath. On examination there is no wheezing or any indication of florid congestive heart failure. I will recommend an echocardiogram. Smoking cessation was strongly recommended. Thank you for your consultation. Please call me if you have any questions. Salvatore Hansen MD, FACP, FACC, FSCAI, FHRS, CCDS Interventional Cardiology Cardiac Electrophysiology Vascular Medicine and Endovascular Interventions Isamar HANSEN MD May 29, 2019 13:16
[2019-05-29] MEDS: RT-ALBUTEROL SULF 2.5 MG/3 ML PRE-MIX VIAL INH SCH ×2 (15:29→21:03)
[2019-05-29 16:00] VITALS: BP 127/74
--- NOTE | 2019-05-29 17:02 | Progress Note - Surgery ---
Subjective Time Seen by a Provider: 16:22 Subjective/Events-last exam Pt seen and examined. He was complaining of some trouble breathing, but the medicine they gave him made him jittery. He is also a little depressed because he thought he was leaving today. He continues to have BM's and is tolerating diet. Review of Systems General: No Chills, No Night Sweats; Fatigue Pulmonary: Dyspnea Cardiovascular: No: Chest Pain, Palpitations Gastrointestinal: No: Nausea, Vomiting Objective Exam Vital Signs Date Time Temp Pulse Resp B/P (MAP) Pulse Ox O2 Delivery O2 Flow Rate FiO2 05/29/19 16:00 98.0 88 18 127/74 (91) 94 Room Air 05/29/19 15:29 93 Room Air 05/29/19 09:41 92 Room Air 05/29/19 08:00 Room Air 05/29/19 08:00 99.3 80 18 119/72 (88) 93 Room Air 05/29/19 07:00 78 05/29/19 04:00 100.5 69 18 126/72 (90) 92 Room Air 05/29/19 02:52 Room Air 05/29/19 01:00 80 05/29/19 00:46 98.9 79 18 108/68 (81) 95 Room Air 05/28/19 22:30 99.5 82 20 108/70 (83) 94 Room Air 05/28/19 21:30 90 20 112/73 (86) 93 Room Air 05/28/19 20:30 99.4 92 20 128/80 (96) 95 Room Air 05/28/19 20:00 93 Room Air 05/28/19 19:30 84 20 129/77 (94) 92 Room Air 05/28/19 19:00 84 20 148/82 (104) 93 Room Air 05/28/19 18:30 96 20 144/79 (100) 93 Room Air 05/28/19 18:19 85 05/28/19 18:15 85 20 151/82 (105) 93 Room Air 05/28/19 18:00 86 20 137/86 (103) 94 Room Air 05/28/19 17:45 99.7 92 20 144/82 (102) 95 Room Air I & O 05/29/19 06:59 Intake Total 2647.5 ml Output Total 1375 ml Balance 1272.5 ml Capillary Refill : Less Than 3 Seconds General Appearance: No Apparent Distress, WD/WN HEENT: PERRL/EOMI, Moist Mucous Membranes Respiratory: Chest Non Tender, Lungs Clear, Normal Breath Sounds, No Accessory Muscle Use, No Respiratory Distress Cardiovascular: Regular Rate, Rhythm, No Murmur Gastrointestinal: non tender, soft, other (obese) Extremity: Pedal Edema (right ankle and foot only +1-2), Other (toe looks better, when he hangs his feet down they turn purple) Neurologic/Psychiatric: Alert, Oriented x3, 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 Norm as Tested, Depressed Affect Skin: Other (right foot and toe with ulceration and cellulitis and drainage from toe) Results Lab Laboratory Tests 05/28/19 18:10: Vancomycin Level Trough 41.2*H 05/29/19 05:47: White Blood Count 10.8, Red Blood Count 3.26L, Hemoglobin 12.3L, Hematocrit 36L, Mean Corpuscular Volume 110H, Mean Corpuscular Hemoglobin 38H, Mean Corpuscular Hemoglobin Concent 34, Red Cell Distribution Width 15.7H, Platelet Count 156, Mean Platelet Volume 10.1, Neutrophils (%) (Auto) 78H, Lymphocytes (%) (Auto) 8L , Monocytes (%) (Auto) 11, Eosinophils (%) (Auto) 3, Basophils (%) (Auto) 1, Neutrophils # (Auto) 8.4H, Lymphocytes # (Auto) 0.9L, Monocytes # (Auto) 1.2H, Eosinophils # (Auto) 0.3, Basophils # (Auto) 0.1, Sodium Level 137, Potassium L evel 3.0L, Chloride Level 108H, Carbon Dioxide Level 18L, Anion Gap 11, Blood Urea Nitrogen 13, Creatinine 2.33H, Estimat Glomerular Filtration Rate 29, BUN/Creatinine Ratio 6, Glucose Level 113H, Calcium Level 8.0L, Corrected Calcium 9.0, Magnesium Level 2.1, Total Bilirubin 0.8, Aspartate Amino Transf (AST/SGOT) 29, Alanine Aminotransferase (ALT/SGPT) 15, Alkaline Phosphatase 78, Total Protein 5.6L, Albumin 2.8L Microbiology 05/24/19 Blood Culture - Preliminary, Resulted No growth Assessment/Plan Assessment/Plan Assessment/Plan Right great toe ulceration -improving Acute renal failure Severe neuropathy Alcoholism with withdrawal Smoker with small vessel disease Hypertension OOC due to withdrawal Anxiety PVD? Increase IV fluids to help with creatnine, probably secondary to contrast from angiogram yesterday. Will cotinue antibiotics. Change his breathing treatments to Xopenex. Maybe his problem is venous, since angiogram showed no arterial problem. Continue local wound care. Clinical Quality Measures DVT/VTE Risk/Contraindication: Risk Factor Score Per Nursin RFS Level Per Nursing on Admit: 2=Moderate Contraindications-Mechi: Other *list below* Other: cellulitis RAVINDER GONZALEZ DO May 29, 2019 17:02
[2019-05-29] MEDS: ENOXAPARIN 40 MG/0.4 ML (LOVENOX) SYR SC SCH (17:49)
[2019-05-29] MEDS ORDERED: TROUGH ORDER-PHARMACY XX NR (18:00)
[2019-05-29] MEDS: LORazepam 1 MG (ATIVAN) TAB PO PRN (20:45)
[2019-05-30 00:01] VITALS: BP 170/94
[2019-05-30] MEDS: NS IV 1000 ML 1,000 ML IV SCH (00:12)
[2019-05-30] MEDS: PIPERACILLIN/TAZO 4.5 GM/NS 100 ML IV SCH ×2 (00:12)
[2019-05-30 01:17] VITALS: BP 143/76
[2019-05-30] MEDS: LORazepam INJ 2 MG/ML (ATIVAN) VIAL IM/IV PRN (01:31)
--- NOTE | 2019-05-30 01:36 | NUR ---
pt c/o shortness of air.. states this has been going on for the last 24 hours.. lungs cta throughout pox 89 on room air. 02 2l nc applied after iv rosa maria is complete iv will be sl. rt notified
[2019-05-30] MEDS: LACTOBACILLUS ACIDOPHILUS (PROBIOTIC) CAPSULE PO SCH ×4 (05:55→20:40)
[2019-05-30] MEDS: KCL 10 MEQ TAB (MICRO K) PO SCH ×3 (05:55→17:28)
[2019-05-30 06:15] LABS: BASOPHILS # (AUTO) 0.1 10^3/uL (0.0-0.1); BASOPHILS % (AUTO) 1 % (0-10); EOSINOPHILS # (AUTO) 0.2 10^3/uL (0.0-0.3); EOSINOPHILS % (AUTO) 1 % (0-10); HEMATOCRIT 35 % (40-54); HEMOGLOBIN 12.2 G/DL (13.3-17.7); LYMPHOCYTES # (AUTO) 0.9 X 10^3 (1.0-4.0); LYMPHOCYTES % (AUTO) 7 % (12-44); MEAN CORPUSCULAR HEMOGLOBIN 38 PG (25-34); MEAN CORPUSCULAR HGB CONC 35 G/DL (32-36); MEAN CORPUSCULAR VOLUME 110 FL (80-99); MEAN PLATELET VOLUME 9.7 FL (7.4-10.4); MONOCYTES % (AUTO) 9 % (0-12); NEUTROPHILS # (AUTO) 9.7 X 10^3 (1.8-7.8); NEUTROPHILS % (AUTO) 82 % (42-75); PLATELET COUNT 206 10^3/uL (130-400); RED CELL DISTRIBUTION WIDTH 15.5 % (10.0-14.5); WHITE BLOOD COUNT 11.8 10^3/uL (4.3-11.0)
--- NOTE | 2019-05-30 06:15 | NUR ---
pt cont on 2l per nc pox increased to 93. does cont to have some shortness of air . dr wiley notified fluids were dcd earlier this shift.. will also obtain a chest xray bnp and abg's this am.. pt informed ..
[2019-05-30] MEDS: RT-ALBUTEROL SULF 2.5 MG/3 ML PRE-MIX VIAL INH SCH ×4 (06:30→22:10)
[2019-05-30 06:34] LABS: ABG BASE EXCESS -6.3 MMOL/L (-2.5-2.5); ABG OXYGEN SATURATION 92 % (94-100); ABG PCO2 29 MMHG (35-45); ABG PO2 62 MMHG (79-93); ABG TCO2 18.3 MMOL/L (21.0-31.0); ALLENS TEST POSITIVE; INSPIRED O2 2; PATIENT TEMP 99.4; VENTILATOR NO
--- NOTE | 2019-05-30 06:36 | NUR ---
ABG WAS DONE AT 0627 THIS AM; RT WENT AHEAD AND GAVE PATIENT AN SVN BT AND HAD TO INCREASE O2 FROM 2 L O2 SAT 88% TO 3 L
[2019-05-30 06:37] LABS: CALCIUM 8.5 MG/DL (8.5-10.1); CREATININE SERUM 2.81 MG/DL (0.60-1.30); POTASSIUM 3.3 MMOL/L (3.6-5.0); TOTAL PROTEIN 6.1 GM/DL (6.4-8.2)
[2019-05-30 06:44] LABS: BAND NEUTROPHILS 8 %; LYMPHOCYTES % (MANUAL) 7 %; NEUTROPHILS % (MANUAL) 85 %
--- NOTE | 2019-05-30 07:42 | Pulmonary Consultation ---
History of Present Illness History of Present Illness Date of Consultation 05/30/19 07:36 Time Seen by Provider: 07:36 Date of Admission History of Present Illness 58yo with hx of Gout, alcoholism, HTN, anxiety, and tobacco use was directly admitted on 05/[address] Martínez's office secondary to right great toe cellulitis ulceration and drainage. Pt was admitted and placed on IV abx. I am being consulted today secondary to worsening SOB and hypoxia. PT was found to have Sp02 of 88% on 2liters of oxygen via NC. Allergies and Home Medications Allergies Coded Allergies: No Known Drug Allergies (Unverified , 05/24/19) Home Medications Allopurinol 100 Mg Tablet, 100 MG PO DAILY, (Reported) Atenolol 25 Mg Tablet, 25 MG PO DAILY, (Reported) Hydrocodone/Acetaminophen 1 Each Tablet, 1 TAB PO BID PRN for PAIN-MODERATE, ( Reported) Lorazepam 0.5 Mg Tablet, 0.5 MG PO DAILY, (Reported) Lorazepam 0.5 Mg Tablet, 0.5 MG PO HS PRN for ANXIETY, (Reported) Potassium Chloride 10 Meq Tablet.er, 10 MEQ PO DAILY, (Reported) Past Szdnihj-Yolumw-Gpzwyb Hx Past Med/Social Hx: Reviewed Nursing Past Med/Soc Hx, Reviewed and Corrections made Patient Social History Alcohol Use: Regular Use Number of Drinks Today: 1 Alcohol Beverage of Choice: Rum Recreational Drug Use: No Smoking Status: Current Everyday Smoker Recent Foreign Travel: No Contact w/Someone Who Travel: No Recent Infectious Disease Expo: No Recent Hopitalizations: No Seasonal Allergies Seasonal Allergies: Yes Past Medical History Surgeries: Yes (20 YEARS AGO TUMOR REMOVED ( NON CANCER ) ON BLADDER) Respiratory: No Cardiac: Yes (MITRAL VALVE PROLAPSE) Hypertension Neurological: Yes Neuropathy Sexually Transmitted Disease: No HIV/AIDS: No Genitourinary: No Gastrointestinal: Yes (IBS) Chronic Diarrhea, Irritable Bowel Musculoskeletal: Yes Gout Endocrine: No HEENT: Yes Hearing Impairment: Hard of Hearing Cancer: No Psychosocial: Yes Anxiety, Depression Integumentary: Yes (CUT RIGHT GREAT TOE) Family Medical History FH: neuropathy 19 MOTHER Mitral valve prolapse 19 MOTHER 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/Hx (Mother has Atrial fibrillation) Review of Systems Time Seen by Provider: 11:37 Constitutional: Fever, Chills, Sweats, Weakness, Malaise Eyes: No: Pain, Vision change, Conjunctivae inflammation, Eyelid inflammation, Other, Redness ENT: Nose congestion; No: Ear pain, Ear discharge, Nose pain, Nose discharge, Mouth pain, Mouth swelling, Throat pain, Throat swelling, Other Respiratory: Cough, Dry, Shortness of breath, SOB with excertion Cardiovascular: No: Chest Pain, Palpitations, Orthopnea Sepsis Event Evaluation Height, Weight, BMI Height: 6'2.00" Weight: 219lbs. 0.0oz. 99.227393uy; 28.1 BMI Method:Stated Exam Exam Vital Signs Date Time Temp Pulse Resp B/P (MAP) Pulse Ox O2 Delivery O2 Flow Rate FiO2 05/30/19 06:31 88 Nasal Cannula 2.00 05/30/19 01:17 100.0 90 24 143/76 (98) 89 Room Air 05/30/19 00:01 98.9 87 22 170/94 (119) 91 Room Air 05/29/19 21:03 94 Room Air 05/29/19 20:00 94 Room Air 05/29/19 16:00 98.0 88 18 127/74 (91) 94 Room Air 05/29/19 15:29 93 Room Air 05/29/19 09:41 92 Room Air 05/29/19 08:00 Room Air 05/29/19 08:00 99.3 80 18 119/72 (88) 93 Room Air I & O 05/30/19 07:00 Intake Total 1770 ml Output Total 1650 ml Balance 120 ml Height & Weight Height: 6'2.00" Weight: 219lbs. 0.0oz. 99.490560az; 28.1 BMI Method:Stated General Appearance: WD/WN, Anxious, Chronically ill, Mild Distress HEENT: PERRL/EOMI, Moist Mucous Membranes Respiratory: Chest Non Tender, No Accessory Muscle Use, No Respiratory Distress, Crackles, Decreased Breath Sounds Cardiovascular: Regular Rate, Rhythm, No Murmur Capillary Refill: Less Than 3 Seconds Gastrointestinal: non tender, soft, other (obese) Extremity: Pedal Edema (right ankle and foot only +1-2) Neurologic/Psychiatric: Alert, Oriented x3, change room attendant II-XII Norm as Tested, Depressed Affect Skin: Normal Color, Warm/Dry, Other (right foot and toe with ulceration and rekha lulitis and drainage from toe) Lymphatic: No Adenopathy Results Lab Laboratory Tests 05/29/19 05:47 05/30/19 06:07 Assessment/Plan Assessment/Plan Sepsis secondary to cellulitis of Right lower leg -Worsening leukocytosis and hypoxia -start Merrem -S/p Zosyn and Vanco -Recheck leal cultures and MRSA nasal swab -Check Lactic acid Hypoxia r/o PNA -Check CT chest without contrast -Echo pending Abscess of right toe -surgery is following -Wound care following worsening Renal insufficiency with metabolic acidosis -D/C NSAIDS and Spironolactone -change IVF to LR at 100cc/hr Hypokalemia -replace Hx of alcohol use and anxiety Neuropathy Tobacco use -Education CYNTHIA BUENROSTRO DO May 30, 2019 07:42
[2019-05-30 08:00] VITALS: BP 123/71
[2019-05-30] MEDS ORDERED: MEROPENEM 1,000 MG in WATER (STERILE) FOR INJECTION 20 ML IV SCH (08:00)
[2019-05-30] MEDS: MEROPENEM 500 MG/SWFI 10 ML IV PUSH IV SCH ×4 (08:13→17:27)
[2019-05-30] MEDS: POTASSIUM CL 10MEQ/50ML IVPB 50 ML IV SCH ×4 (08:13→12:36)
[2019-05-30 08:14] LABS: MAGNESIUM 1.8 MG/DL (1.8-2.4); PHOSPHORUS 4.6 MG/DL (2.3-4.7)
--- NOTE | 2019-05-30 08:55 | Diagnostic Imaging Report ---
INDICATION: New onset shortness of air. TECHNIQUE: Two view chest 7:05 AM CORRELATION STUDY: None FINDINGS: There is extensive multifocal 5 lobe pulmonary opacities present. Most pronounced along the right lung base. Heart size largely obscured but does appear to be enlarged. Vascular also obscured but also appears increased. Small left pleural effusion. No appreciable pneumothorax. IMPRESSION: 1. Extensive 5 lobe opacities may reflect extensive pneumonia or pronounced pulmonary edema. Followup imaging recommended. Dictated by: Dictated on workstation # [id number]
[2019-05-30] MEDS: SENNA W/DOCUSATE (SENOKOT S) TABLET PO SCH ×2 (09:07→21:00)
[2019-05-30] MEDS: ATENOLOL 25 MG (TENORMIN) TAB PO SCH ×2 (09:07→20:40)
[2019-05-30] MEDS: ASPIRIN E.C. 81 MG (ECOTRIN) TAB PO SCH (09:07)
[2019-05-30] MEDS: amLODIPine 5 MG (NORVASC) TAB PO SCH (09:07)
[2019-05-30] MEDS: CLOPIDOGREL 75 MG (PLAVIX) TABLET PO SCH (09:07)
[2019-05-30] MEDS: DAKIN'S 1/4 STRENGTH (0.125%) 473 ML BTL TOP SCH ×2 (09:07→22:02)
[2019-05-30] MEDS: hydrALAZINE (APRESOLINE) 25 MG TAB PO SCH ×3 (09:07→20:40)
[2019-05-30 09:25] LABS: BILIRUBIN,URINE NEGATIVE (NEGATIVE); CLARITY,URINE CLEAR; COLOR,URINE YELLOW; GLUCOSE, URINE (UA) NEGATIVE (NEGATIVE); KETONES,URINE NEGATIVE (NEGATIVE); LEUKOCYTE ESTERASE ,URINE NEGATIVE (NEGATIVE); NITRITE,URINE NEGATIVE (NEGATIVE); PH,URINE 5 (5-9); PROTEIN,URINE 2+ (NEGATIVE); UROBILINOGEN,URINE NORMAL (NORMAL)
--- NOTE | 2019-05-30 09:30 | Progress Note - Hospitalist ---
Subjective HPI/CC On Admission Date Seen by Provider: May 30, 2019 Time Seen by Provider: 09:30 CC: Right great toe ulcer with abscess and cellulitis HPI: This is a 58-year-old white male clinic patient of mine for the past 10 years who has a past medical history of alcoholism, hypertension, anxiety and smoking with chronic neuropathy who presented to my clinic after he called for an urgent appointment for a gout attack so labs were drawn prior to appointment and when he arrived I evaluated the right great toe showing a significant ulceration with pustular drainage along with cellulitis of his entire foot spreading up his leg. He was found to be in need of IV antibiotics and Dr. Crhistie was consulted along with Dr. Gutiérrez for wound care and possible toe abscess respectively. He will be placed on empiric antibiotics provided pain control and he will be on alcohol withdrawal protocol. Patient is currently doing much better did have some anxiety early this morning and wanted a cigarette and I did offer nicotine patch but he declined. Overall his right foot and toe is much improved and arterial ultrasound is pending at time of dictation and understands the diagnosis sepsis and the need to continue on IV antibiotics with close monitoring. Subjective/Events-last exam Pt had a complicated night because of his SOB. Dr. Aleman was consulted after ABG showed hypoxia Metabolic acidosis constant with pneumonia had five lobar infiltrates on chest x-ray so Meropenem was started and discontinued on the Zosyn Pulmonary edema consistent with the elevated BNP and Dr. Hansen will monitor closely Creatinine risen to 2.8 so will monitor that closely Fever of 100 CT confirms consistent with infectious etiology Pt was maintained on Lovenox for DVT prophylaxis during the entire hospital course since admission Very complicated mother is at the bedside, and she asked if I was aware of the alcohol problem and since I have take care of him for 12 years in the clinic every single office visits I have asked him to quit drinking alcohol and cease smoking and he even agreed with my statement Very complex issues, will monitor closely for any clinical decompensation Review of Systems General: Fatigue Pulmonary: Dyspnea Focused Exam Lactate Level 05/30/19 08:02: Lactic Acid Level 0.83 Lactic Acid Level Objective Exam Vital Signs Vital Signs Date Time Temp Pulse Resp B/P (MAP) Pulse Ox O2 Delivery O2 Flow Rate FiO2 05/30/19 19:00 105 05/30/19 18:37 94 Nasal Cannula 3.00 05/30/19 16:05 98.9 20 133/78 (96) 05/27/19 08:06 21 Capillary Refill : Less Than 3 SecondsLess Than 3 Seconds General Appearance: No Apparent Distress, WD/WN, Chronically ill HEENT: PERRL/EOMI, Moist Mucous Membranes Respiratory: Chest Non Tender, Lungs Clear, No Accessory Muscle Use, No Respiratory Distress, Decreased Breath Sounds Cardiovascular: Regular Rate, Rhythm, No Edema, No Gallop, No JVD, No Murmur Gastrointestinal: Normal Bowel Sounds, No Organomegaly, No Pulsatile Mass, Non Tender, Soft Back: Normal Inspection, No CVA Tenderness, No Vertebral Tenderness Extremity: Pedal Edema (right ankle and foot only +1-2), Other (toe looks better, when he hangs his feet down they turn purple) Neurologic/Psychiatric: Alert, Oriented x3, 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 Assessment/Plan Assessment and Plan Assess & Plan/Chief Complaint Assessment: Bilateral infiltrates multi-lobar placed on O2 and Meropenem and DC Zosyn Hypoxia ARF Volume overload acute s/p Sepsis Right great toe ulceration with abscess and severe cellulitis rising up into the leg now resolving Severe neuropathy Alcoholism with withdrawal now resolved Smoker with small vessel disease cessation currently Hypertension OOC due to withdrawal now resolved Anxiety PVD ruled out with normal angiogram Plan: Hep-locked IV fluids since sepsis is now cleared Empiric antibiotic of Meropenem for pneumonia multi-lobar Appreciate Dr. Christie and Dr. Gutiérrez and Dr Hansen and Dr Aleman Arterial ultrasound reviewed Very complex case and may ultimately require ICU transfer if hypoxia worsens Diagnosis/Problems Diagnosis/Problems (1) Multifocal pneumonia Status: Acute (2) Sepsis Status: Resolved Qualifiers: Sepsis type: sepsis due to unspecified organism Qualified Codes: A41.9 - Sepsis, unspecified organism Resolution Date/Time: 05/29/19 @ 19:19 (3) Cellulitis of right lower leg Status: Acute (4) Abscess of toe, right Status: Acute (5) Hypertension Status: Chronic Qualifiers: Hypertension type: essential hypertension Qualified Codes: I10 - Essential (primary) hypertension (6) Anxiety Status: Chronic (7) Alcoholism Status: Chronic (8) Smoker Status: Chronic (9) Neuropathy Status: Chronic (10) Ulcer of great toe Status: Acute Qualifiers: Laterality: right Non-pressure ulcer stage: with fat layer exposed Qualified Codes: L97.512 - Non-pressure chronic ulcer of other part of right foot with fat layer exposed (11) Acute renal insufficiency Status: Acute (12) Alcohol withdrawal Status: Resolved Resolution Date/Time: 05/30/19 @ 20:57 (13) Volume overload Status: Acute Qualifiers: Hypervolemia type: unspecified Qualified Codes: E87.70 - Fluid overload, unspecified (14) Elevated brain natriuretic peptide (BNP) level Status: Acute (15) Renal failure Status: Acute Qualifiers: Renal failure chronicity: acute Acute renal failure type: unspecified Qualified Codes: N17.9 - Acute kidney failure, unspecified Clinical Quality Measures DVT/VTE Risk/Contraindication: Risk Factor Score Per Nursin RFS Level Per Nursing on Admit: 2=Moderate Contraindications-Mechi: Other *list below* Other: cellulitis HARDY CAMPBELL DO May 30, 2019 09:30
[2019-05-30 09:34] LABS: BACTERIA,URINE TRACE /HPF; SQUAMOUS EPITHELIAL CELL,UR RARE /HPF; WBC,URINE RARE /HPF
[2019-05-30] MEDS ORDERED: SODIUM BICARB 8.4% 50 MEQ/50 ML VIAL IV NR (09:45)
--- NOTE | 2019-05-30 10:26 | Diagnostic Imaging Report ---
PROCEDURE: CT chest without contrast. TECHNIQUE: Multiple contiguous axial images were obtained through the chest without the use of intravenous contrast. Auto Exposure Controls were utilized during the CT exam to meet ALARA standards for radiation dose reduction. INDICATION: Abnormal chest x-ray. COMPARISONS: Radiograph dated 05/30/2019. FINDINGS: There are fairly extensive, right greater than left interstitial airspace groundglass opacities in keeping with infection. There are small bilateral, right greater than left pleural effusions. No pneumothorax. Heart size is normal. No pericardial effusion. Aorta is normal in caliber. No axillary, supraclavicular lymphadenopathy. There are multiple enlarged mediastinal lymph nodes measuring up to 2.0 cm. Limited views of the upper abdomen are normal. There are no suspicious osseous lesions. IMPRESSION: 1. Extensive bilateral groundglass and interstitial opacities in keeping with an infection. No mass is seen. 2. Small bilateral pleural effusions. Dictated by: Dictated on workstation # [id number]
[2019-05-30] MEDS: LACTATED RINGERS 1,000 ML IV SCH ×2 (12:36→22:02)
[2019-05-30] MEDS ORDERED: RT-ALBUTEROL SULF 2.5 MG/3 ML PRE-MIX VIAL INH PRN (14:00)
--- NOTE | 2019-05-30 14:08 | Cardiology Progress Note ---
Cardiology SOAP Progress Note Subjective: Complaining of shortness of breath. Objective: I&O/Vital Signs 05/30/19 05/30/19 05/30/19 05/30/19 06:31 08:00 08:00 13:00 Temp 99.0 Pulse 86 87 Resp 22 B/P (MAP) 123/71 (88) Pulse Ox 88 95 O2 Delivery Nasal Cannula Room Air Room Air O2 Flow Rate 2.00 05/30/19 00:00 Intake Total 1250 ml Output Total 900 ml Balance 350 ml Weight (Pounds): 219 Weight (Ounces): 0.0 Weight (Calculated Kilograms): 99.258001 Constitutional: appears stated age, AAO x 3; No apparent distress; well- developed, well-nourished Respiratory: No accessory muscle use, No respiratory distress, No chest tender, No chest expansion is symmetric; chest is bilaterally symmetric; No lungs clear to percussion; lungs clear to auscultation; No crackles, No rhonchi, No rales, No stridor, No wheezing, No pleural rub, No other Cardiovascular: regular rate-rhythm; No irregularly irregular, No extra beats, No parasternal heave is noted, No JVD, No edema, No bradycardia, No tachycardia, No point of maximal impulse, No cardiac thrills are palpable; S1 and S2; No gallop/S3, No gallop/S4, No diastolic murmur, No systolic murmur, No friction rub, No click, No other Gastrointestional: No tender, No soft, No round, No distended, No pulsatile mass, No organomegaly, No guarding, No rebound, No tenderness, No hernia, No mass, No audible bowel sounds, No abnormal bowel sounds, No abdominal bruits, No spleenomegaly, No other Extremities: No normal range of motion, No non-tender, No normal inspection, No pedal edema, No calf tenderness, No normal capillary refill, No pelvis stable, No calf tenderness, No inflammation, No pedal edema, No slow capillary refill, No swelling, No other, No abrasion, No clubbing, No cyanosis, No ecchymosis, No laceration, No no lower extremity edema bilateral, No significant edema, No tenderness; wound (right great toe) Neurologic/Psychiatric: no motor/sensory deficits, alert, normal mood/affect, oriented x 3, power is 5/5 both on sides Skin: No rash, No ulcerations Results/Procedures: Labs Laboratory Tests 05/30/19 06:01: Phosphorus Level 4.6, Magnesium Level 1.8 05/30/19 06:07: White Blood Count 11.8H, Red Blood Count 3.21L, Hemoglobin 12.2L, Hematocrit 35L , Mean Corpuscular Volume 110H, Mean Corpuscular Hemoglobin 38H, Mean Corpuscular Hemoglobin Concent 35, Red Cell Distribution Width 15.5H, Platelet Count 206, Mean Platelet Volume 9.7, Neutrophils (%) (Auto) 82H, Lymphocytes (%) (Auto) 7L, Monocytes (%) (Auto) 9, Eosinophils (%) (Auto) 1, Basophils (%) (Auto) 1, Neutrophils # (Auto) 9.7H, Lymphocytes # (Auto) 0.9L, Monocytes # (Auto) 1.0, Eosinophils # (Auto) 0.2, Basophils # (Auto) 0.1, Neutrophils % (Manual) 85, Lymphocytes % (Manual) 7, Band Neutrophils 8, Macrocytosis MODERATE, Sodium Level 139, Potassium Level 3.3L, Chloride Level 110H, Carbon Dioxide Level 16L, Anion Gap 13, Blood Urea Nitrogen 17, Creatinine 2.81#H, Estimat Glomerular Filtration Rate 23, BUN/Creatinine Ratio 6, Glucose Level 108H, Calcium Level 8.5, Corrected Calcium 9.3, Total Bilirubin 1.0, Aspartate Amino Transf (AST/SGOT) 31, Alanine Aminotransferase (ALT/SGPT) 16, Alkaline Phosphatase 80, B-Type Natriuretic Peptide 1028.0H, Total Protein 6.1L, Albumin 3.0L 05/30/19 06:27: Blood Gas Puncture Site RIGHT RADIAL, Blood Gas Patient Temperature 99.4, Arterial Blood pH 7.40, Arterial Blood Partial Pressure CO2 29L, Arterial Blood Partial Pressure O2 62L, Arterial Blood HCO3 18L, Arterial Blood Total CO2 18.3L , Arterial Blood Oxygen Saturation 92L, Arterial Blood Base Excess -6.3L, [place] Test POSITIVE, Blood Gas Ventilator Setting NO, Blood Gas Inspired Oxygen 2 05/30/19 08:02: Lactic Acid Level 0.83 05/30/19 09:15: Urine Color YELLOW, Urine Clarity CLEAR, Urine pH 5, Urine Specific [place] 1.010L, Urine Protein 2+H, Urine Glucose (UA) NEGATIVE, Urine Ketones NEGATIVE, Urine Nitrite NEGATIVE, Urine Bilirubin NEGATIVE, Urine Urobilinogen NORMAL, Urine Leukocyte Esterase NEGATIVE, Urine RBC (Auto) 2+H, Urine RBC 10-25H, Urine WBC RARE, Urine Squamous Epithelial Cells RARE, Urine Crystals NONE, Urine Bacteria TRACE, Urine Casts NONE, Urine Mucus NEGATIVE, Urine Culture Indicated NO Microbiology 05/24/19 Blood Culture - Final, Complete No growth A/P: Assessment/Dx: Right great toe cellulitis, abscess, nonhealing ulcer, No PAD on peripheral angiogram done 05/28/2019, Hypertension, Active smoking, Shortness of breath. Plan: IV fluids, wound care and general surgery following. No PAD on peripheral angiogram done on 05/28/2019. Patient is complaining of shortness of breath. On examination there is no wheezing or any indication of florid congestive heart failure. I will recommend an echocardiogram done 05/29/2019 which was normal LV function with mild to moderate diastolic dysfunction. PA pressure 59 mmHg. No significant valvular heart disease. I have discussed with Dr. Aleman. He believes that the patient is developing pneumonia with fever and leukocytosis. And therefore requires IV fluids. We will hold off on any diuretics. Although the patient's BNP is 1000, we will still give him IV fluids due to sepsis/pneumonia. BNP could be falsely elevated due to acute kidney injury, COPD and pneumonia. We will watch him closely. He may require transfer to the ICU and may require a central line for CVP measurement. COPD, due to active smoking. Acute kidney injury, likely due to dehydration, sepsis, contrast injury. IV fluids. Smoking cessation was strongly recommended. Thank you for your consultation. Please call me if you have any questions. Salvatore Hansen MD, FACP, FACC, FSCAI, FHRS, CCDS Interventional Cardiology Cardiac Electrophysiology Vascular Medicine and Endovascular Interventions Focused Exam Lactate Level 05/30/19 08:02: Lactic Acid Level 0.83 Isamar HANSEN MD May 30, 2019 14:08
[2019-05-30 16:05] VITALS: BP 133/78
[2019-05-30] MEDS: ENOXAPARIN 40 MG/0.4 ML (LOVENOX) SYR SC SCH (17:27)
[2019-05-30 19:55] VITALS: BP 147/80
[2019-05-31] VITALS: BP 133/78
[2019-05-31] MEDS: RT-ALBUTEROL SULF 2.5 MG/3 ML PRE-MIX VIAL INH SCH ×2 (02:24→06:11)
[2019-05-31 04:00] VITALS: BP 148/84
[2019-05-31] MEDS: LORazepam INJ 2 MG/ML (ATIVAN) VIAL IM/IV PRN (04:15)
[2019-05-31] MEDS: LACTOBACILLUS ACIDOPHILUS (PROBIOTIC) CAPSULE PO SCH ×4 (05:57→22:02)
[2019-05-31] MEDS: KCL 10 MEQ TAB (MICRO K) PO SCH ×3 (05:57→17:01)
[2019-05-31 06:32] LABS: BASOPHILS # (AUTO) 0.1 10^3/uL (0.0-0.1); BASOPHILS % (AUTO) 1 % (0-10); EOSINOPHILS # (AUTO) 0.4 10^3/uL (0.0-0.3); EOSINOPHILS % (AUTO) 4 % (0-10); HEMATOCRIT 35 % (40-54); HEMOGLOBIN 11.8 G/DL (13.3-17.7); LYMPHOCYTES # (AUTO) 1.2 X 10^3 (1.0-4.0); LYMPHOCYTES % (AUTO) 11 % (12-44); MEAN CORPUSCULAR HEMOGLOBIN 37 PG (25-34); MEAN CORPUSCULAR HGB CONC 33 G/DL (32-36); MEAN CORPUSCULAR VOLUME 111 FL (80-99); MEAN PLATELET VOLUME 10.4 FL (7.4-10.4); MONOCYTES # (AUTO) 1.3 X 10^3 (0.0-1.0); MONOCYTES % (AUTO) 11 % (0-12); NEUTROPHILS # (AUTO) 8.5 X 10^3 (1.8-7.8); NEUTROPHILS % (AUTO) 74 % (42-75); PLATELET COUNT 267 10^3/uL (130-400); RED CELL DISTRIBUTION WIDTH 15.9 % (10.0-14.5); WHITE BLOOD COUNT 11.5 10^3/uL (4.3-11.0)
--- NOTE | 2019-05-31 06:32 | NUR ---
pt currently on 4l per nc increased from 3l via rt after treatment. is encouarged pt has rested off and on tonight and states he has had a better night, ativan po and iv have been given per pt request for anxiety
--- NOTE | 2019-05-31 06:33 | NUR ---
CONTACTED DR BUENROSTRO AFTER PATIENT WAS GIVEN AN ALBUTEROL SVN BREATHING TX ABOUT ADDING EITHER EZPAP OR AEROBIKA; DR BUENROSTRO SAID TO START EZPAP Q4H WITH DUONEB INSTEAD OF ALBUTEROL. THIS RT WILL PUT THE ORDER IN FOR EZPAP AND TO SWITCH THE MED. PATIENT KEEPS DESATTING TO 89% SO RT INCREASED O2 FROM 3 L TO 4 L NC
[2019-05-31 07:02] LABS: BILIRUBIN,TOTAL 0.6 MG/DL (0.1-1.0); CALCIUM 8.6 MG/DL (8.5-10.1); CREATININE SERUM 2.75 MG/DL (0.60-1.30); POTASSIUM 3.3 MMOL/L (3.6-5.0); TOTAL PROTEIN 6.3 GM/DL (6.4-8.2)
[2019-05-31 08:00] VITALS: BP 157/90
[2019-05-31] MEDS ORDERED: RT-ALBUTEROL/IPRATROPIUM 3 ML (DUONEB) VIAL INH PRN (08:00)
[2019-05-31] MEDS: LACTATED RINGERS 1,000 ML IV SCH (09:24)
[2019-05-31] MEDS: SENNA W/DOCUSATE (SENOKOT S) TABLET PO SCH ×2 (09:32→22:04)
[2019-05-31] MEDS: ASPIRIN E.C. 81 MG (ECOTRIN) TAB PO SCH (09:33)
[2019-05-31] MEDS: amLODIPine 5 MG (NORVASC) TAB PO SCH (09:33)
[2019-05-31] MEDS: CLOPIDOGREL 75 MG (PLAVIX) TABLET PO SCH (09:34)
[2019-05-31] MEDS: hydrALAZINE (APRESOLINE) 25 MG TAB PO SCH ×3 (09:34→22:02)
[2019-05-31] MEDS: ATENOLOL 25 MG (TENORMIN) TAB PO SCH ×2 (09:35→22:02)
[2019-05-31] MEDS: MEROPENEM 500 MG/SWFI 10 ML IV PUSH IV SCH ×6 (09:37→16:05)
[2019-05-31] MEDS: DAKIN'S 1/4 STRENGTH (0.125%) 473 ML BTL TOP SCH ×2 (09:40→22:02)
--- NOTE | 2019-05-31 09:43 | Pulmonary Progress Note ---
Subjective Time Seen by a Provider: 11:07 Subjective/Events-last exam PT sitting up in chair talking with family. He complains of worsening SOB. Sepsis Event Evaluation Height, Weight, BMI Height: 6'2.00" Weight: 219lbs. 0.0oz. 99.638954sj; 28.1 BMI Method:Stated Focused Exam Lactate Level 05/30/19 08:02: Lactic Acid Level 0.83 Exam Exam Vital Signs Date Time Temp Pulse Resp B/P (MAP) Pulse Ox O2 Delivery O2 Flow Rate FiO2 05/31/19 08:00 97.4 86 24 157/90 (112) 92 Nasal Cannula 3.00 05/31/19 07:00 84 05/31/19 06:12 91 Nasal Cannula 3.00 05/31/19 04:00 99.6 88 18 148/84 (105) 92 Nasal Cannula 3.00 05/31/19 02:24 92 Nasal Cannula 3.00 05/31/19 01:00 86 05/31/19 00:00 100.7 89 18 133/78 (96) 94 Nasal Cannula 3.00 05/30/19 22:10 90 Nasal Cannula 3.00 05/30/19 20:00 Nasal Cannula 3.00 05/30/19 19:55 98.8 89 20 147/80 (102) 97 Nasal Cannula 3.00 05/30/19 19:00 105 05/30/19 18:37 94 Nasal Cannula 3.00 05/30/19 16:05 98.9 91 20 133/78 (96) 97 Nasal Cannula 3.00 05/30/19 15:06 91 Nasal Cannula 3.00 05/30/19 13:00 87 I & O 05/31/19 07:00 Intake Total 2500 ml Output Total 2450 ml Balance 50 ml Height & Weight Height: 6'2.00" Weight: 219lbs. 0.0oz. 99.422189gf; 28.1 BMI Method:Stated General Appearance: WD/WN, Anxious, Chronically ill, Mild Distress HEENT: PERRL/EOMI, Moist Mucous Membranes Respiratory: Chest Non Tender, Lungs Clear, Accessory Muscle Use, Crackles, Decreased Breath Sounds Cardiovascular: Regular Rate, Rhythm, No Edema, No Gallop, No JVD, No Murmur Capillary Refill: Less Than 3 Seconds Gastrointestinal: non tender, soft, other (obese) Extremity: Pedal Edema (right ankle and foot only +1-2), Other (toe looks better, when he hangs his feet down they turn purple) Neurologic/Psychiatric: Alert, Oriented x3, fashion director II-XII Norm as Tested, Depressed Affect Skin: Other (right foot and toe with ulceration and cellulitis and drainage from toe) Lymphatic: No Adenopathy Results Lab Laboratory Tests 05/30/19 06:07 05/31/19 05:00 05/31/19 06:00 Assessment/Plan Assessment/Plan Sepsis secondary to cellulitis of Right lower leg -Continue Merrem -S/p Zosyn and Vanco -Repeat leal cultures and MRSA nasal swab - pending -Recheck Lactic acid Hypoxia r/o PNA -Check CT chest without contrast -Echo pending Metabolic acidosis -repeat LA -Give 2 amps of bicarb then start bicarb gtt Abscess of right toe -surgery is following -Wound care following worsening Renal insufficiency with metabolic acidosis -D/C NSAIDS and Spironolactone -change IVF to LR at 100cc/hr Hypokalemia -replace Hx of alcohol use and anxiety Neuropathy Tobacco use -Education CYNTHIA BUENROSTRO DO May 31, 2019 09:43
[2019-05-31] MEDS: RT-ALBUTEROL/IPRATROPIUM 3 ML (DUONEB) VIAL INH SCH ×4 (09:47→22:51)
[2019-05-31] MEDS: LORazepam 1 MG (ATIVAN) TAB PO PRN ×2 (09:47→18:13)
--- NOTE | 2019-05-31 10:03 | Progress Note - Hospitalist ---
Subjective HPI/CC On Admission Date Seen by Provider: May 31, 2019 Time Seen by Provider: 10:00 CC: Right great toe ulcer with abscess and cellulitis HPI: This is a 58-year-old white male clinic patient of mine for the past 10 years who has a past medical history of alcoholism, hypertension, anxiety and smoking with chronic neuropathy who presented to my clinic after he called for an urgent appointment for a gout attack so labs were drawn prior to appointment and when he arrived I evaluated the right great toe showing a significant ulceration with pustular drainage along with cellulitis of his entire foot spreading up his leg. He was found to be in need of IV antibiotics and Dr. Christie was consulted along with Dr. Gutiérrez for wound care and possible toe abscess respectively. He will be placed on empiric antibiotics provided pain control and he will be on alcohol withdrawal protocol. Patient is currently doing much better did have some anxiety early this morning and wanted a cigarette and I did offer nicotine patch but he declined. Overall his right foot and toe is much improved and arterial ultrasound is pending at time of dictation and understands the diagnosis sepsis and the need to continue on IV antibiotics with close monitoring. Subjective/Events-last exam Multiple issues persist. Nighttime dyspnea is continuing to be an issue. Lactic acid will be re-checked. Has conversational tachypnea. Did speak with Dr. Aleman. Every time I go in the room is dark and he is in bed. I instructed him to get in a chair, his family helped him do that and will monitor Pt closely for any need to go up to the ICU. I did turn his lights on to improve morale and appearance of improvement. Creatinine down to 2.7. Good urinary output. Dr. Aleman will check lactic acid. Reviewed echocardiogram showing no cardiomyopathy. Overall this is a result of many years of smoking and drinking excessive alcohol due to alcoholism and tried to reassure the Pt and family but will try to keep the Pt on the fourth floor because if he is in the ICU he will be back in bed and have some difficulty with further deconditioning. Review of Systems General: Fatigue Pulmonary: Dyspnea Focused Exam Lactate Level 05/30/19 08:02: Lactic Acid Level 0.83 05/31/19 12:01: Lactic Acid Level 0.76 Objective Exam Vital Signs Vital Signs Date Time Temp Pulse Resp B/P (MAP) Pulse Ox O2 Delivery O2 Flow Rate FiO2 05/31/19 20:55 97.6 86 22 122/73 (89) 93 Nasal Cannula 3.50 05/27/19 08:06 21 Capillary Refill : Less Than 3 SecondsLess Than 3 Seconds General Appearance: WD/WN, Anxious, Chronically ill, Mild Distress, Other (debilitated) HEENT: PERRL/EOMI, Moist Mucous Membranes Respiratory: Chest Non Tender, Lungs Clear, No Accessory Muscle Use, No Respiratory Distress, Decreased Breath Sounds Cardiovascular: Regular Rate, Rhythm, No Edema, No Gallop, No JVD, No Murmur Gastrointestinal: Normal Bowel Sounds, No Organomegaly, No Pulsatile Mass, Non Tender, Soft Back: Normal Inspection, No CVA Tenderness, No Vertebral Tenderness Extremity: Pedal Edema (right ankle and foot only +1-2), Other (toe looks better, when he hangs his feet down they turn purple) Neurologic/Psychiatric: Alert, Oriented x3, interactive designer II-XII Norm as Tested, Depressed Affect Skin: Other (right foot and toe with ulceration and cellulitis and drainage from toe) Lymphatic: No Adenopathy Results/Procedures Lab Laboratory Tests 05/31/19 05:00 05/31/19 06:00 Patient resulted labs reviewed. Assessment/Plan Assessment and Plan Assess & Plan/Chief Complaint Assessment: Bilateral infiltrates multi-lobar placed on O2 and Meropenem and DC Zosyn Hypoxia ARF Volume overload acute s/p Sepsis Right great toe ulceration with abscess and severe cellulitis rising up into the leg now resolving Severe neuropathy Alcoholism with withdrawal now resolved Smoker with small vessel disease cessation currently Hypertension OOC due to withdrawal now resolved Anxiety PVD ruled out with normal angiogram Plan: Hep-locked IV fluids since sepsis is now cleared Empiric antibiotic of Meropenem for pneumonia multi-lobar Appreciate Dr. Christie and Dr. Gutiérrez and Dr Hansen and Dr Aleman Arterial ultrasound reviewed Very complex case and may ultimately require ICU transfer if hypoxia worsens Diagnosis/Problems Diagnosis/Problems (1) Multifocal pneumonia Status: Acute (2) Sepsis Status: Resolved Qualifiers: Sepsis type: sepsis due to unspecified organism Qualified Codes: A41.9 - Sepsis, unspecified organism Resolution Date/Time: 05/29/19 @ 19:19 (3) Cellulitis of right lower leg Status: Acute (4) Abscess of toe, right Status: Acute (5) Hypertension Status: Chronic Qualifiers: Hypertension type: essential hypertension Qualified Codes: I10 - Essential (primary) hypertension (6) Anxiety Status: Chronic (7) Alcoholism Status: Chronic (8) Smoker Status: Chronic (9) Neuropathy Status: Chronic (10) Ulcer of great toe Status: Acute Qualifiers: Laterality: right Non-pressure ulcer stage: with fat layer exposed Qualified Codes: L97.512 - Non-pressure chronic ulcer of other part of right foot with fat layer exposed (11) Acute renal insufficiency Status: Acute (12) Alcohol withdrawal Status: Resolved Resolution Date/Time: 05/30/19 @ 20:57 (13) Volume overload Status: Acute Qualifiers: Hypervolemia type: unspecified Qualified Codes: E87.70 - Fluid overload, unspecified (14) Elevated brain natriuretic peptide (BNP) level Status: Acute (15) Renal failure Status: Acute Qualifiers: Renal failure chronicity: acute Acute renal failure type: unspecified Qualified Codes: N17.9 - Acute kidney failure, unspecified Clinical Quality Measures DVT/VTE Risk/Contraindication: Risk Factor Score Per Nursin RFS Level Per Nursing on Admit: 2=Moderate Contraindications-Mechi: Other *list below* Other: cellulitis HARDY CAMPBELL DO May 31, 2019 10:03
[2019-05-31 10:20] LABS: MAGNESIUM 1.6 MG/DL (1.8-2.4)
--- NOTE | 2019-05-31 10:35 | Diagnostic Imaging Report ---
INDICATION: Pneumonia. Comparison made with prior examination 05/30/2019. FINDINGS: Heart size is normal. There is persistent bilateral airspace disease. There are bilateral pleural effusions. There is no pneumothorax. Mediastinum is unremarkable. IMPRESSION: Persistent bilateral airspace disease with bilateral pleural effusions likely reflecting pneumonia although some degree of underlying congestive failure certainly cannot be excluded. Recommend clinical correlation. Dictated by: Dictated on workstation # [id number]
[2019-05-31] MEDS ORDERED: SODIUM BICARB 8.4% 50 MEQ/50 ML VIAL IV NR (11:15)
[2019-05-31] MEDS ORDERED: MAGNESIUM 1 GM/100 ML IVPB 100 ML IV SCH (11:15)
[2019-05-31] MEDS: POTASSIUM CL 10MEQ/50ML IVPB 50 ML IV SCH ×6 (11:35→17:05)
[2019-05-31] MEDS: SODIUM BICARBONATE 8.4% VIAL 100 MEQ in 1/2 NS IV SOLUTION 1,000 ML IV SCH ×2 (11:41→22:40)
[2019-05-31 12:00] VITALS: BP 187/69
[2019-05-31] MEDS: MAGNESIUM 1 GM/100 ML IVPB 100 ML IV SCH ×2 (16:07→17:07)
--- NOTE | 2019-05-31 16:33 | Cardiology Progress Note ---
Cardiology SOAP Progress Note Subjective: complained of shortness of breath overnight. Objective: I&O/Vital Signs 05/31/19 05/31/19 05/31/19 05/31/19 06:12 07:00 08:00 08:00 Temp 97.4 Pulse 84 86 Resp 24 B/P (MAP) 157/90 (112) Pulse Ox 91 92 O2 Delivery Nasal Cannula Nasal Cannula Nasal Cannula O2 Flow Rate 3.00 3.00 3.00 05/31/19 05/31/19 05/31/19 05/31/19 09:47 12:00 13:00 15:02 Temp 97.8 Pulse 78 79 Resp 20 B/P (MAP) 187/69 (108) Pulse Ox 92 95 92 O2 Delivery Nasal Cannula Nasal Cannula Nasal Cannula O2 Flow Rate 4.00 3.00 4.00 05/31/19 00:00 Intake Total 1500 ml Output Total 900 ml Balance 600 ml Weight (Pounds): 219 Weight (Ounces): 0.0 Weight (Calculated Kilograms): 99.910527 Constitutional: appears stated age, AAO x 3; No apparent distress; well- developed, well-nourished Respiratory: No accessory muscle use, No respiratory distress, No chest tender, No chest expansion is symmetric; chest is bilaterally symmetric; No lungs clear to percussion; lungs clear to auscultation; No crackles, No rhonchi, No rales, No stridor, No wheezing, No pleural rub, No other Cardiovascular: regular rate-rhythm; No irregularly irregular, No extra beats, No parasternal heave is noted, No JVD, No edema, No bradycardia, No tachycardia, No point of maximal impulse, No cardiac thrills are palpable; S1 and S2; No gallop/S3, No gallop/S4, No diastolic murmur, No systolic murmur, No friction rub, No click, No other Gastrointestional: No tender, No soft, No round, No distended, No pulsatile mass, No organomegaly, No guarding, No rebound, No tenderness, No hernia, No mass, No audible bowel sounds, No abnormal bowel sounds, No abdominal bruits, No spleenomegaly, No other Extremities: No normal range of motion, No non-tender, No normal inspection, No pedal edema, No calf tenderness, No normal capillary refill, No pelvis stable, No calf tenderness, No inflammation, No pedal edema, No slow capillary refill, No swelling, No other, No abrasion, No clubbing, No cyanosis, No ecchymosis, No laceration, No no lower extremity edema bilateral, No significant edema, No tenderness; wound (right great toe) Neurologic/Psychiatric: no motor/sensory deficits, alert, normal mood/affect, oriented x 3, power is 5/5 both on sides Skin: No rash, No ulcerations Results/Procedures: Labs Laboratory Tests 05/31/19 05:00: White Blood Count 11.5H, Red Blood Count 3.17L, Hemoglobin 11.8L, Hematocrit 35L , Mean Corpuscular Volume 111H, Mean Corpuscular Hemoglobin 37H, Mean Corpuscular Hemoglobin Concent 33, Red Cell Distribution Width 15.9H, Platelet Count 267, Mean Platelet Volume 10.4, Neutrophils (%) (Auto) 74, Lymphocytes (%) (Auto) 11L, Monocytes (%) (Auto) 11, Eosinophils (%) (Auto) 4, Basophils (%) (Auto) 1, Neutrophils # (Auto) 8.5H, Lymphocytes # (Auto) 1.2, Monocytes # (Auto) 1.3H, Eosinophils # (Auto) 0.4H, Basophils # (Auto) 0.1 05/31/19 06:00: Sodium Level 140, Potassium Level 3.3L, Chloride Level 110H, Carbon Dioxide Level 16L, Anion Gap 14, Blood Urea Nitrogen 20H, Creatinine 2.75H, Estimat Glomerular Filtration Rate 24, BUN/Creatinine Ratio 7, Glucose Level 107H, Calci um Level 8.6, Corrected Calcium 9.4, Phosphorus Level 4.0, Magnesium Level 1.6L, Total Bilirubin 0.6, Aspartate Amino Transf (AST/SGOT) 31, Alanine Aminotransferase (ALT/SGPT) 20, Alkaline Phosphatase 86, Total Protein 6.3L, Albumin 3.0L 05/31/19 12:01: Lactic Acid Level 0.76 Microbiology 05/30/19 Blood Culture - Preliminary, Resulted No growth A/P: Assessment/Dx: Right great toe cellulitis, abscess, nonhealing ulcer, No PAD on peripheral angiogram done 05/28/2019, Hypertension, Active smoking, Shortness of breath. Plan: IV fluids, wound care and general surgery following. No PAD on peripheral angiogram done on 05/28/2019. Patient is complaining of shortness of breath. On examination there is no wheezing or any indication of florid congestive heart failure. I will recommend an echocardiogram done 05/29/2019 which was normal LV function with mild to moderate diastolic dysfunction. PA pressure 59 mmHg. No significant valvular heart disease. I have discussed with Dr. Aleman. He believes that the patient is developing pneumonia with fever and leukocytosis. And therefore requires IV fluids. We will hold off on any diuretics. Although the patient's BNP is 1000, we will still give him IV fluids due to sepsis/pneumonia. BNP could be falsely elevated due to acute kidney injury, COPD and pneumonia. We will watch him closely. He may require transfer to the ICU and may require a central line for CVP measurement. COPD, due to active smoking. Acute kidney injury, likely due to dehydration, sepsis, contrast injury. IV fluids. Smoking cessation was strongly recommended. Thank you for your consultation. Please call me if you have any questions. Salvatore Hansen MD, FACP, FACC, FSCAI, FHRS, CCDS Interventional Cardiology Cardiac Electrophysiology Vascular Medicine and Endovascular Interventions Focused Exam Lactate Level 05/30/19 08:02: Lactic Acid Level 0.83 05/31/19 12:01: Lactic Acid Level 0.76 Isamar HANSEN MD May 31, 2019 16:33
[2019-05-31 16:35] VITALS: BP 128/64
[2019-05-31] MEDS: ENOXAPARIN 40 MG/0.4 ML (LOVENOX) SYR SC SCH (18:13)
[2019-05-31 20:55] VITALS: BP 122/73
[2019-06-01] VITALS: BP 149/82
[2019-06-01] MEDS: LORazepam 1 MG (ATIVAN) TAB PO PRN (00:54)
[2019-06-01] MEDS: MEROPENEM 500 MG/SWFI 10 ML IV PUSH IV SCH ×6 (00:54→16:23)
[2019-06-01] MEDS: RT-ALBUTEROL/IPRATROPIUM 3 ML (DUONEB) VIAL INH SCH ×6 (03:05→20:32)
[2019-06-01 04:00] VITALS: BP 157/82
[2019-06-01] MEDS: KCL 10 MEQ TAB (MICRO K) PO SCH ×3 (05:45→19:07)
[2019-06-01] MEDS: LACTOBACILLUS ACIDOPHILUS (PROBIOTIC) CAPSULE PO SCH ×4 (05:45→21:21)
[2019-06-01 06:29] LABS: BASOPHILS # (AUTO) 0.1 10^3/uL (0.0-0.1); BASOPHILS % (AUTO) 1 % (0-10); EOSINOPHILS # (AUTO) 0.5 10^3/uL (0.0-0.3); EOSINOPHILS % (AUTO) 5 % (0-10); HEMATOCRIT 35 % (40-54); HEMOGLOBIN 12.1 G/DL (13.3-17.7); LYMPHOCYTES # (AUTO) 1.2 X 10^3 (1.0-4.0); LYMPHOCYTES % (AUTO) 11 % (12-44); MEAN CORPUSCULAR HEMOGLOBIN 38 PG (25-34); MEAN CORPUSCULAR HGB CONC 34 G/DL (32-36); MEAN CORPUSCULAR VOLUME 110 FL (80-99); MEAN PLATELET VOLUME 10.1 FL (7.4-10.4); MONOCYTES # (AUTO) 1.1 X 10^3 (0.0-1.0); MONOCYTES % (AUTO) 10 % (0-12); NEUTROPHILS # (AUTO) 7.8 X 10^3 (1.8-7.8); NEUTROPHILS % (AUTO) 74 % (42-75); PLATELET COUNT 297 10^3/uL (130-400); RED CELL DISTRIBUTION WIDTH 15.9 % (10.0-14.5); WHITE BLOOD COUNT 10.6 10^3/uL (4.3-11.0)
[2019-06-01 06:47] LABS: CALCIUM 8.9 MG/DL (8.5-10.1); CREATININE SERUM 2.31 MG/DL (0.60-1.30); PHOSPHORUS 3.3 MG/DL (2.3-4.7); POTASSIUM 3.9 MMOL/L (3.6-5.0)
[2019-06-01 07:29] LABS: ABG BASE EXCESS -1.8 MMOL/L (-2.5-2.5); ABG OXYGEN SATURATION 93 % (94-100); ABG PCO2 33 MMHG (35-45); ABG PH 7.43 (7.37-7.43); ABG PO2 60 MMHG (79-93); ABG TCO2 22.9 MMOL/L (21.0-31.0)
[2019-06-01 07:30] LABS: ALLENS TEST YES-POS; INSPIRED O2 4 L; PATIENT TEMP 98.2; VENTILATOR NO
[2019-06-01 08:00] VITALS: BP 135/80
[2019-06-01] MEDS: SODIUM BICARBONATE 8.4% VIAL 100 MEQ in 1/2 NS IV SOLUTION 1,000 ML IV SCH ×2 (09:49→21:17)
[2019-06-01] MEDS: ASPIRIN E.C. 81 MG (ECOTRIN) TAB PO SCH (09:50)
[2019-06-01] MEDS: amLODIPine 5 MG (NORVASC) TAB PO SCH (09:50)
[2019-06-01] MEDS: ATENOLOL 25 MG (TENORMIN) TAB PO SCH ×2 (09:50→21:20)
[2019-06-01] MEDS: SENNA W/DOCUSATE (SENOKOT S) TABLET PO SCH ×2 (09:50→21:21)
[2019-06-01] MEDS: DAKIN'S 1/4 STRENGTH (0.125%) 473 ML BTL TOP SCH ×2 (09:50→17:00)
[2019-06-01] MEDS: CLOPIDOGREL 75 MG (PLAVIX) TABLET PO SCH (09:50)
[2019-06-01] MEDS: hydrALAZINE (APRESOLINE) 25 MG TAB PO SCH ×3 (09:50→21:21)
--- NOTE | 2019-06-01 10:22 | Pulmonary Progress Note ---
Subjective Time Seen by a Provider: 10:20 Subjective/Events-last exam Pt feels better today. Sepsis Event Evaluation Height, Weight, BMI Height: 6'2.00" Weight: 220lbs. 4.0oz. 99.409053fu; 28.1 BMI Method:Stated Focused Exam Lactate Level 05/30/19 08:02: Lactic Acid Level 0.83 05/31/19 12:01: Lactic Acid Level 0.76 Exam Exam Vital Signs Date Time Temp Pulse Resp B/P (MAP) Pulse Ox O2 Delivery O2 Flow Rate FiO2 06/01/19 08:00 97.3 88 22 135/80 (98) 93 Nasal Cannula 3.50 06/01/19 07:27 92 Nasal Cannula 4.00 06/01/19 07:00 87 06/01/19 04:00 98.2 81 22 157/82 (107) 93 Nasal Cannula 3.50 06/01/19 03:04 90 Nasal Cannula 4.00 06/01/19 01:00 81 06/01/19 00:00 97.3 81 22 149/82 (104) 94 Nasal Cannula 3.50 05/31/19 22:48 95 Nasal Cannula 4.00 05/31/19 20:55 97.6 86 22 122/73 (89) 93 Nasal Cannula 3.50 05/31/19 20:00 Nasal Cannula 4.00 05/31/19 19:52 93 Nasal Cannula 4.00 05/31/19 19:03 84 05/31/19 16:35 96.8 84 20 128/64 (85) 94 Nasal Cannula 4.00 05/31/19 15:02 92 Nasal Cannula 4.00 05/31/19 13:00 79 05/31/19 12:00 97.8 78 20 187/69 (108) 95 Nasal Cannula 3.00 I & O 06/01/19 07:00 Intake Total 3295 ml Output Total 925 ml Balance 2370 ml Height & Weight Height: 6'2.00" Weight: 220lbs. 4.0oz. 99.190896bp; 28.1 BMI Method:Stated General Appearance: Anxious, Chronically ill, Mild Distress HEENT: PERRL/EOMI, Normal ENT Inspection, Pharynx Normal Neck: Non Tender, Supple Respiratory: Chest Non Tender, No Accessory Muscle Use, No Respiratory Distress Cardiovascular: Regular Rate, Rhythm, No Edema Capillary Refill: Less Than 3 Seconds Gastrointestinal: normal bowel sounds, non tender, soft Extremity: Normal Capillary Refill, No Pedal Edema Neurologic/Psychiatric: Alert, Oriented x3 Skin: Normal Color, Warm/Dry Lymphatic: No Adenopathy Results Lab Laboratory Tests 05/31/19 05:00 05/31/19 06:00 06/01/19 06:10 Assessment/Plan Assessment/Plan Sepsis secondary to cellulitis of Right lower leg - Merrem -S/p Zosyn and Vanco -Repeat leal cultures and MRSA nasal swab - pending Hypoxia r/o PNA -PT feels better currently Metabolic acidosis -repeat LA -Continue bicarb gtt Abscess of right toe -surgery is following -Wound care following worsening Renal insufficiency with metabolic acidosis -D/C NSAIDS and Spironolactone -change IVF to LR at 100cc/hr Hypokalemia -replace Hx of alcohol use and anxiety Neuropathy Tobacco use -Education CYNTHIA BUENROSTRO DO Jun 01, 2019 10:22
--- NOTE | 2019-06-01 10:30 | Progress Note - Hospitalist ---
Subjective HPI/CC On Admission Date Seen by Provider: Jun 01, 2019 Time Seen by Provider: 10:30 CC: Right great toe ulcer with abscess and cellulitis HPI: This is a 58-year-old white male clinic patient of mine for the past 10 years who has a past medical history of alcoholism, hypertension, anxiety and smoking with chronic neuropathy who presented to my clinic after he called for an urgent appointment for a gout attack so labs were drawn prior to appointment and when he arrived I evaluated the right great toe showing a significant ulceration with pustular drainage along with cellulitis of his entire foot spreading up his leg. He was found to be in need of IV antibiotics and Dr. Christie was consulted along with Dr. Gutiérrez for wound care and possible toe abscess respectively. He will be placed on empiric antibiotics provided pain control and he will be on alcohol withdrawal protocol. Patient is currently doing much better did have some anxiety early this morning and wanted a cigarette and I did offer nicotine patch but he declined. Overall his right foot and toe is much improved and arterial ultrasound is pending at time of dictation and understands the diagnosis sepsis and the need to continue on IV antibiotics with close monitoring. Subjective/Events-last exam Patient appears to be improving Encouraged him to get in a hot shower today Will initiate PT/OT orders Maybe an inpatient rehabilitation candidate ultimately when he stabilizes Creatinine improved to 2.3 good trend Has some tachypnea during conversation but much better today Devoted family always at the bedside Had some shortness of breath at 2 o'clock yesterday morning again Checked meds and labs Ate breakfast the first time today Bowels are moving Denies any other pain Review of Systems General: Fatigue Pulmonary: Dyspnea Focused Exam Lactate Level 05/30/19 08:02: Lactic Acid Level 0.83 05/31/19 12:01: Lactic Acid Level 0.76 Objective Exam Vital Signs Vital Signs Date Time Temp Pulse Resp B/P (MAP) Pulse Ox O2 Delivery O2 Flow Rate FiO2 06/01/19 11:30 92 Nasal Cannula 3.00 06/01/19 08:00 97.3 88 22 135/80 (98) 05/27/19 08:06 21 Capillary Refill : Less Than 3 SecondsLess Than 3 Seconds General Appearance: No Apparent Distress, WD/WN, Anxious, Chronically ill HEENT: PERRL/EOMI, Normal ENT Inspection, Pharynx Normal Neck: Non Tender, Supple Respiratory: Chest Non Tender, Lungs Clear, No Accessory Muscle Use, No Respiratory Distress Cardiovascular: Regular Rate, Rhythm, No Edema Gastrointestinal: Normal Bowel Sounds, No Organomegaly, No Pulsatile Mass, Non Tender, Soft Back: Normal Inspection, No CVA Tenderness, No Vertebral Tenderness Extremity: Normal Capillary Refill, No Pedal Edema Neurologic/Psychiatric: Alert, Oriented x3 Skin: Normal Color, Warm/Dry Lymphatic: No Adenopathy Results/Procedures Lab Laboratory Tests 06/01/19 06:10 Patient resulted labs reviewed. Assessment/Plan Assessment and Plan Assess & Plan/Chief Complaint Assessment: Bilateral infiltrates multi-lobar placed on O2 and Meropenem and DC Zosyn Hypoxia ARF Volume overload acute s/p Sepsis Right great toe ulceration with abscess and severe cellulitis rising up into the leg now resolving Severe neuropathy Alcoholism with withdrawal now resolved Smoker with small vessel disease cessation currently Hypertension OOC due to withdrawal now resolved Anxiety PVD ruled out with normal angiogram Plan: IV fluids for kidney function Empiric antibiotic of Meropenem for pneumonia multi-lobar Appreciate Dr. Christie and Dr. Gutiérrez and Dr Hansen and Dr Aleman Very complex case and may ultimately require ICU transfer if hypoxia worsens Diagnosis/Problems Diagnosis/Problems (1) Multifocal pneumonia Status: Acute (2) Sepsis Status: Resolved Qualifiers: Sepsis type: sepsis due to unspecified organism Qualified Codes: A41.9 - Sepsis, unspecified organism Resolution Date/Time: 05/29/19 @ 19:19 (3) Cellulitis of right lower leg Status: Acute (4) Abscess of toe, right Status: Acute (5) Hypertension Status: Chronic Qualifiers: Hypertension type: essential hypertension Qualified Codes: I10 - Essential (primary) hypertension (6) Anxiety Status: Chronic (7) Alcoholism Status: Chronic (8) Smoker Status: Chronic (9) Neuropathy Status: Chronic (10) Ulcer of great toe Status: Acute Qualifiers: Laterality: right Non-pressure ulcer stage: with fat layer exposed Qualified Codes: L97.512 - Non-pressure chronic ulcer of other part of right foot with fat layer exposed (11) Acute renal insufficiency Status: Acute (12) Alcohol withdrawal Status: Resolved Resolution Date/Time: 05/30/19 @ 20:57 (13) Volume overload Status: Acute Qualifiers: Hypervolemia type: unspecified Qualified Codes: E87.70 - Fluid overload, unspecified (14) Elevated brain natriuretic peptide (BNP) level Status: Acute (15) Renal failure Status: Acute Qualifiers: Renal failure chronicity: acute Acute renal failure type: unspecified Qualified Codes: N17.9 - Acute kidney failure, unspecified Clinical Quality Measures DVT/VTE Risk/Contraindication: Risk Factor Score Per Nursin RFS Level Per Nursing on Admit: 2=Moderate Contraindications-Mechi: Other *list below* Other: cellulitis HARDY CAMPBELL DO Jun 01, 2019 10:30
[2019-06-01 12:00] VITALS: BP 133/78
--- NOTE | 2019-06-01 13:40 | Diagnostic Imaging Report ---
INDICATION: Pneumonia. PA and lateral chest obtained at 10:13 a.m. and compared to yesterday. Heart is borderline in size. There is central vascular congestion with no significant change in extensive bilateral infiltrates compared to the prior study. There is no pneumothorax. There are small bilateral pleural effusions which are similar to the prior study. IMPRESSION: No change in diffuse bilateral infiltrates and central vascular congestion with small bilateral pleural effusions. Dictated by: Dictated on workstation # [id number]
--- NOTE | 2019-06-01 13:54 | NUR ---
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 He shared his personal reminders of taking each day at a time, and states that if he gets through this hospitalization with his toe intact, he will quite smoking. He said that over the years drinking alcohol caused problems to his health of which he was unaware. He said he does not feel ready to stop drinking, but also sees the connection with his health and will continue to think on this. Pt states that drinking and smoking have been stress relievers for him for many years, but he did not think these impacted his functioning. The pt shared that his father was a Marine and later wanted to become a Dev Ops Engineer. The pt did not recall why his father did not become a sweeper driver, but heard the story about how his mother converted to Catholicism so they could wed. The pt said he did not attend moravian or have much protestant influence growing up. He shared uncertainty of divine existence, and a described personal values of integrity, justice and basic human kindness. His mother has been visiting routinely, which is a comfort. He described not having an experience like this in the hospital before, and appreciated our visit. Pt invited return visit.
--- NOTE | 2019-06-01 15:31 | Physical Therapy Evaluation ---
PT Evaluation-General Medical Diagnosis Admission Date May 24, 2019 at 16:00 Medical Diagnosis: pneumonia Onset Date: May 24, 2019 Therapy Diagnosis Therapy Diagnosis: impaired mobility, strength, endurance Height/Weight Height (Feet): 6 Height (Inches): 2.00 Weight (Pounds): 220 Weight (Ounces): 4.0 Precautions Precautions/Isolations: Standard Precautions Weight Bear Status Right Lower Extremity: Right Full Weight Bearing Left Lower Extremity: Left Full Weight Bearing Referral Physician: Romana Martínez DO Reason for Referral: Evaluation/Treatment Medical History Additional Medical History Past Medical History Cardiac: Hypertension Neurological: Neuropathy Sexually Transmitted Disease: No HIV/AIDS: No Gastrointestinal: Chronic Diarrhea, Irritable Bowel Musculoskeletal: Gout Hearing Impairment: Hard of Hearing Psychosocial: Anxiety, Depression Reviewed History: Yes Social History Home: Single Level Current Living Status: Spouse Entry Into Home: Stairs Without Railing PT Steps Into Home: 3 Prior/Core FIM Prior Level of Function Therapy Code Descriptions/Definitions Functional [place] Measure: 0=Not Assessed/NA 4=Minimal Assistance 1=Total Assistance 5=Supervision or Setup 2=Maximal Assistance 6=Modified [place] 3=Moderate Assistance 7=Complete [place] Therapy Quality Codes: 6 Independent with activity with or without an assistive device 5 Patient requires set up or clean up by helper. Patient completes activity by themselves 4 Supervision or touching assist (CGA). [place] provide cues , steadying assist 3 The helper provides less than half the effort to complete the activity 2 The helper provides more than half the effort to complete the activity 1 Dependent. The helper does all the effort to complete an activity 7 Patient refused to complete or attempt activity 9 The patient did not perform the activity before the current illness or injury 88 Not attempted due to Medical conditions or safety concerns Functional Abilities and Goals: Independent: Patient completed the activities by him/herself, with or without an assistive device, with no assistance from a helper. Needed Some Help: Patient needed partial assistance from another person to complete activities. Dependent: A helper completed the activities for the patient. Unknown: Not Applicable: Bed Mobility: 7 Transfers (B,C,W/C) (FIM): 7 Gait: 7 Stairs: 7 Indoor Mobility (Ambulation): Independent Stairs: Independent PT Evaluation-Current Subjective Patient in recliner pre tx, agrees to PT, has no complaints of pain at rest. Pt/Family Goals to be independent at home Objective Patient Orientation: Person, Place, Situation Attachments: Oxygen, IV ROM/Strength ROM Lower Extremities WNL Strength Lower Extremities RLE (hip flexion 3/5, knee flexion 4/5, knee extension 4+/5, dorsiflexion 5/5), LLE (hip flexion 3/5, knee flexion 4/5, knee extension 4+/5, dorsiflexion 5/5) Sensory Vision: Wears Glasses Hearing: Functional Sensation Right Lower Extremit: Impaired Sensation Left Lower Extremity: Impaired Sensation Lower Extremities numbness in feet Transfers Therapy Code Descriptions/Definitions Functional [place] Measure: 0=Not Assessed/NA 4=Minimal Assistance 1=Total Assistance 5=Supervision or Setup 2=Maximal Assistance 6=Modified [place] 3=Moderate Assistance 7=Complete [place] Transfers (B, C, W/C) (FIM): 5 Sit to/from Stand: 5 Gait Mode of Locomotion: Walk Anticipated Mode of Locomotion: Walk Gait (FIM): 4 Distance: 250' Gait Level of Assist: 4 Gait Persons Needed: 1 Gait Assistive Device: None Comments/Gait Description Patient ambulated 250' with CGA and he pushed the IV pole. Slow ambulation, some unsteadiness but no LOB, SOB with ambulation, cues for purse lip breathing. Balance Sitting Static: Normal Sitting Dynamic: Normal Standing Static: Good Standing Dynamic: Fair Assessment/Needs Patient has impaired mobility, strength, endurance. He gets SOB with activity. Patient in recliner post tx with nurse call, phone, tray, all needs met. Rehab Potential: Fair PT Short Term Goals Short Term Goals Time Frame: Jun 08, 2019 Transfers (B,C,W/C) (FIM): 6 Gait (FIM): 5 Gait Distance Comment: 300' Gait Level of Assist: 5 Gait Assistive Device: None PT Plan Problem List Problem List: Activity Tolerance, Functional Strength, Safety, Balance, Gait, Transfer Treatment/Plan Treatment Plan: Continue Plan of Care Treatment Plan: Bed Mobility, Education, Functional Activity Francesca, Functional Strength, Gait, Safety, Therapeutic Exercise, Transfers Treatment Duration: Jun 08, 2019 Frequency: 6 times per week Estimated Hrs Per Day: .25 hour per day Patient and/or Family Agrees t: Yes Safety Risks/Education Patient Education: Gait Training, Transfer Techniques, Correct Positioning, Safety Issues Teaching Recipient: Patient Teaching Methods: Demonstration, Discussion Response to Teaching: Reinforcement Needed Discharge Recommendations Plan Patient will perform bed mobility and transfer training, balance and endurance training, functional strengthening, stair training, gait training, and education, to improve functional mobility and independence at home. Therapy D/C Recommendations: Home w/ Family Support Time/GCodes Time In: 1505 Time Out: 1520 Total Billed Treatment Time: 15 Total Billed Treatment 1 visit CHLOE Mercado' KRISTINE HAWK PT Jun 01, 2019 15:31
--- NOTE | 2019-06-01 16:28 | Occupational Therapy Eval ---
OT Evaluation-General/PLF Medical Diagnosis Admission Date May 24, 2019 at 16:00 Medical Diagnosis: pneumonia Onset Date: May 24, 2019 Therapy Diagnosis Therapy Diagnosis: decreased self care skills Height/Weight Height (Feet): 6 Height (Inches): 2.00 Weight (Pounds): 220 Weight (Ounces): 4.0 Precautions Precautions/Isolations: Seizure Safety Interventions: None Referral Physician: Romana Martínez DO Medical History Pertinent Medical History: Alcoholism, HTN, Neuropathy Additional Medical History irritable bowel, gout, anxiety, depression Current History Pt admitted with right great toe ulceration Reviewed History: Yes Social History Home: Single Level Current Living Status: Spouse Entry Into Home: Stairs Without Railing Steps Into Home: 3 ADL-Prior Level of Function Therapy Code Descriptions/Definitions Functional [place] Measure: 0=Not Assessed/NA 4=Minimal Assistance 1=Total Assistance 5=Supervision or Setup 2=Maximal Assistance 6=Modified [place] 3=Moderate Assistance 7=Complete [place] Therapy Quality Codes: 6 Independent with activity with or without an assistive device 5 Patient requires set up or clean up by helper. Patient completes activity by themselves 4 Supervision or touching assist (CGA). [place] provide cues , steadying assist 3 The helper provides less than half the effort to complete the activity 2 The helper provides more than half the effort to complete the activity 1 Dependent. The helper does all the effort to complete an activity 7 Patient refused to complete or attempt activity 9 The patient did not perform the activity before the current illness or injury 88 Not attempted due to Medical conditions or safety concerns Functional Abilities and Goals: Independent: Patient completed the activities by him/herself, with or without an assistive device, with no assistance from a helper. Needed Some Help: Patient needed partial assistance from another person to complete activities. Dependent: A helper completed the activities for the patient. Unknown: Not Applicable: ADL PLOF Comments Pt reports being independent with self care and mobility prior to admission. 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 Mental Status/Objective Patient Orientation: Person, Place Attachments: IV, Oxygen Current Upper Extremity ROM Grossly WFL Upper Extremity Coordination Intact Upper Extremity Sensation Intact per pt report ADL-Treatment ADL-Current Pt sit to stand with supervision. Gait to restroom without AD, no LOB noted. Transfer to walk in shower with SBA. Pt doffed underwear and socks without assist. Pt completed seated bathing using hand held shower. Pt able to wash/dry all areas with increased time. Pt is short of breath with activity and requires rest breaks. Don hospital gown with assist secondary to IV. Pt able to thread left LE into underwear, but requires min assist with right. Stood with supervision for pant hike. Pt combed hair without assist. Transfer to chair with SBA. Pt sitting in chair with needs met after session. Therapy Code Descriptions/Definitions Functional [place] Measure: 0=Not Assessed/NA 4=Minimal Assistance 1=Total Assistance 5=Supervision or Setup 2=Maximal Assistance 6=Modified [place] 3=Moderate Assistance 7=Complete [place] Therapy Quality Codes: 6 Independent with activity with or without an assistive device 5 Patient requires set up or clean up by helper. Patient completes activity by themselves 4 Supervision or touching assist (CGA). [place] provide cues , steadying assist 3 The helper provides less than half the effort to complete the activity 2 The helper provides more than half the effort to complete the activity 1 Dependent. The helper does all the effort to complete an activity 7 Patient refused to complete or attempt activity 9 The patient did not perform the activity before the current illness or injury 88 Not attempted due to Medical conditions or safety concerns Grooming (FIM): 6 Bathing (FIM): 5 Lower Body Dressing (FIM): 4 Shower Transfer (FIM): 5 OT Short Term Goals Short Term Goals Transfers (B,C,W/C) (FIM): 6 1=Demonstrate adherence to instructed precautions during ADL tasks. 2=Patient will verbalize/demonstrate understanding of assistive devices/modifications for ADL. 3=Patient will improve strength/tolerance for activity to enable patient to perform ADL's. OT Reservoir Engineer Goals Nursing Home Goals Time Frame: Jun 09, 2019 Bathing(FIM): 6 Upper Body Dressing(FIM): 6 Lower Body Dressing(FIM): 6 Toileting(FIM): 6 Toilet/Commode Transfer(FIM): 6 Additional Goals: 1-Demonstrate ADL Tasks, 2-Verbalize Understanding, 3- ImproveStrength/Francesca 1=Demonstrate adherence to instructed precautions during ADL tasks. 2=Patient will verbalize/demonstrate understanding of assistive devices/modifications for ADL. 3=Patient will improve strength/tolerance for activity to enable patient to perform ADL's. OT Education/Plan Problem List/Assessment Assessment: Decreased Activ Tolerance, Decreased UE Strength, Dependent Transfers, Impaired Self-Care Skills Pt demonstrates decreased activity tolerance, mobility, and ADL functioning. Pt to benefit from skilled OT intervention for ADL training, transfers, strengthening, and home safety education to increase level of independence and allow safe discharge. Discharge Recommendations Plan/Recommendations: Continue POC Treatment Plan/Plan of Care Treatment,Training & Education: Yes Patient would benefit from OT for education, treatment and training to promote independence in ADL's, mobility, safety and/or upper extremity function for ADL's. Plan of Care: ADL Retraining, Functional Mobility, UE Funct Exercise/Act Treatment Duration: Jun 09, 2019 Frequency: 5 times per week Estimated Hrs Per Day: .25 hour per day Rehab Potential: Fair Time/GCodes Start Time: 15:20 Stop Time: 16:10 Total Time Billed (hr/min): 50 Billed Treatment Time 1 visit, EVM(15minutes), ADLx2(35minutes) TONG DC OT Jun 01, 2019 16:27
[2019-06-01 16:50] VITALS: BP 140/69
[2019-06-01] MEDS: ENOXAPARIN 40 MG/0.4 ML (LOVENOX) SYR SC SCH (19:07)
--- NOTE | 2019-06-01 19:49 | Cardiology Progress Note ---
Cardiology SOAP Progress Note Subjective: Still short of breath. Objective: I&O/Vital Signs 06/01/19 06/01/19 06/01/19 06/01/19 08:00 08:00 11:30 12:00 Temp 97.3 97.9 Pulse 88 82 Resp 22 22 B/P (MAP) 135/80 (98) 133/78 (96) Pulse Ox 93 92 92 O2 Delivery Nasal Cannula Nasal Cannula Nasal Cannula Nasal Cannula O2 Flow Rate 3.00 3.50 3.00 3.50 06/01/19 06/01/19 06/01/19 13:00 14:20 16:50 Temp 97.4 Pulse 84 83 Resp 20 B/P (MAP) 140/69 (92) Pulse Ox 92 91 O2 Delivery Nasal Cannula Nasal Cannula O2 Flow Rate 2.00 2.00 06/01/19 00:00 Intake Total 2325 ml Output Total 525 ml Balance 1800 ml Weight (Pounds): 220 Weight (Ounces): 4.0 Weight (Calculated Kilograms): [id number] Constitutional: appears stated age, AAO x 3; No apparent distress; well- developed, well-nourished Respiratory: No accessory muscle use, No respiratory distress, No chest tender, No chest expansion is symmetric; chest is bilaterally symmetric; No lungs clear to percussion, No crackles, No rhonchi, No rales, No stridor; wheezing; No pleural rub, No other Cardiovascular: regular rate-rhythm; No irregularly irregular, No extra beats, No parasternal heave is noted, No JVD, No edema, No bradycardia, No tachycardia, No point of maximal impulse, No cardiac thrills are palpable; S1 and S2; No gallop/S3, No gallop/S4, No diastolic murmur, No systolic murmur, No friction rub, No click, No other Gastrointestional: No tender, No soft, No round, No distended, No pulsatile mass, No organomegaly, No guarding, No rebound, No tenderness, No hernia, No mass, No audible bowel sounds, No abnormal bowel sounds, No abdominal bruits, No spleenomegaly, No other Extremities: No normal range of motion, No non-tender, No normal inspection, No pedal edema, No calf tenderness, No normal capillary refill, No pelvis stable, No calf tenderness, No inflammation, No pedal edema, No slow capillary refill, No swelling, No other, No abrasion, No clubbing, No cyanosis, No ecchymosis, No laceration, No no lower extremity edema bilateral, No significant edema, No tenderness; wound (right great toe) Neurologic/Psychiatric: no motor/sensory deficits, alert, normal mood/affect, oriented x 3, power is 5/5 both on sides Skin: No rash, No ulcerations Results/Procedures: Labs Laboratory Tests 06/01/19 06:10: White Blood Count 10.6, Red Blood Count 3.20L, Hemoglobin 12.1L, Hematocrit 35L, Mean Corpuscular Volume 110H, Mean Corpuscular Hemoglobin 38H, Mean Corpuscular Hemoglobin Concent 34, Red Cell Distribution Width 15.9H, Platelet Count 297, Mean Platelet Volume 10.1, Neutrophils (%) (Auto) 74, Lymphocytes (%) (Auto) 11L , Monocytes (%) (Auto) 10, Eosinophils (%) (Auto) 5, Basophils (%) (Auto) 1, Neutrophils # (Auto) 7.8, Lymphocytes # (Auto) 1.2, Monocytes # (Auto) 1.1H, Eosinophils # (Auto) 0.5H, Basophils # (Auto) 0.1, Sodium Level 141, Potassium Level 3.9, Chloride Level 109H, Carbon Dioxide Level 17L, Anion Gap 15H, Blood Urea Nitrogen 21H, Creatinine 2.31H, Estimat Glomerular Filtration Rate 29, BUN/Creatinine Ratio 9, Glucose Level 107H, Calcium Level 8.9, Phosphorus Level 3.3, Magnesium Level 2.0 06/01/19 07:23: Blood Gas Puncture Site LT RAD, Blood Gas Patient Temperature 98.2, Arterial Blood pH 7.43, Arterial Blood Partial Pressure CO2 33L, Arterial Blood Partial Pressure O2 60L, Arterial Blood HCO3 22L, Arterial Blood Total CO2 22.9, Arterial Blood Oxygen Saturation 93L, Arterial Blood Base Excess -1.8, [place] Test YES-POS, Blood Gas Ventilator Setting NO, Blood Gas Inspired Oxygen 4 L Microbiology 05/30/19 Blood Culture - Preliminary, Resulted No growth A/P: Assessment/Dx: Right great toe cellulitis, abscess, nonhealing ulcer, No PAD on peripheral angiogram done 05/28/2019, Hypertension, Active smoking, Shortness of breath. Plan: IV fluids, wound care and general surgery following. No PAD on peripheral angiogram done on 05/28/2019. Patient is complaining of shortness of breath. On examination there is no wheezing or any indication of florid congestive heart failure. I will recommend an echocardiogram done 05/29/2019 which was normal LV function with mild to moderate diastolic dysfunction. PA pressure 59 mmHg. No significant valvular heart disease. I have discussed with Dr. Aleman. He believes that the patient is developing pneumonia with fever and leukocytosis. And therefore requires IV fluids. We will hold off on any diuretics. Although the patient's BNP is 1000, we will still give him IV fluids due to sepsis/pneumonia. BNP could be falsely elevated due to acute kidney injury, COPD and pneumonia. We will watch him closely. He may require transfer to the ICU and may require a central line for CVP measurement. COPD, due to active smoking. Acute kidney injury, likely due to dehydration, sepsis, contrast injury. IV fluids. Smoking cessation was strongly recommended. Thank you for your consultation. Please call me if you have any questions. Salvatore Hansen MD, FACP, FACC, FSCAI, FHRS, CCDS Interventional Cardiology Cardiac Electrophysiology Vascular Medicine and Endovascular Interventions Focused Exam Lactate Level 05/30/19 08:02: Lactic Acid Level 0.83 05/31/19 12:01: Lactic Acid Level 0.76 Isamar HANSEN MD Jun 01, 2019 19:49
[2019-06-01 20:50] VITALS: BP 141/71
[2019-06-02] VITALS: BP 149/80
[2019-06-02] MEDS: MEROPENEM 500 MG/SWFI 10 ML IV PUSH IV SCH ×8 (00:04→23:34)
[2019-06-02] MEDS: LORazepam 1 MG (ATIVAN) TAB PO PRN ×4 (00:07→23:33)
[2019-06-02] MEDS: RT-ALBUTEROL/IPRATROPIUM 3 ML (DUONEB) VIAL INH SCH ×5 (03:12→19:05)
--- NOTE | 2019-06-02 03:32 | NUR ---
Anju,RT notified Dr. Foster of need for Vapo Therm to aid in pt's work of breathing. New order rec to place patient on Vapo Therm.
[2019-06-02 04:00] VITALS: BP 155/76
[2019-06-02 05:06] LABS: BASOPHILS # (AUTO) 0.1 10^3/uL (0.0-0.1); BASOPHILS % (AUTO) 1 % (0-10); EOSINOPHILS # (AUTO) 0.5 10^3/uL (0.0-0.3); EOSINOPHILS % (AUTO) 5 % (0-10); HEMATOCRIT 36 % (40-54); LYMPHOCYTES # (AUTO) 1.3 X 10^3 (1.0-4.0); LYMPHOCYTES % (AUTO) 14 % (12-44); MEAN CORPUSCULAR HEMOGLOBIN 37 PG (25-34); MEAN CORPUSCULAR HGB CONC 33 G/DL (32-36); MEAN CORPUSCULAR VOLUME 113 FL (80-99); MEAN PLATELET VOLUME 9.8 FL (7.4-10.4); MONOCYTES # (AUTO) 1.2 X 10^3 (0.0-1.0); MONOCYTES % (AUTO) 13 % (0-12); NEUTROPHILS # (AUTO) 6.2 X 10^3 (1.8-7.8); NEUTROPHILS % (AUTO) 67 % (42-75); PLATELET COUNT 308 10^3/uL (130-400); RED CELL DISTRIBUTION WIDTH 15.9 % (10.0-14.5); WHITE BLOOD COUNT 9.2 10^3/uL (4.3-11.0)
[2019-06-02 05:21] LABS: CALCIUM 8.5 MG/DL (8.5-10.1); CREATININE SERUM 2.29 MG/DL (0.60-1.30); MAGNESIUM 1.6 MG/DL (1.8-2.4); PHOSPHORUS 3.1 MG/DL (2.3-4.7); POTASSIUM 3.7 MMOL/L (3.6-5.0)
[2019-06-02] MEDS: KCL 10 MEQ TAB (MICRO K) PO SCH ×3 (06:19→17:10)
[2019-06-02] MEDS: LACTOBACILLUS ACIDOPHILUS (PROBIOTIC) CAPSULE PO SCH ×4 (07:15→20:57)
--- NOTE | 2019-06-02 07:26 | Pulmonary Progress Note ---
Subjective Time Seen by a Provider: 07:25 Subjective/Events-last exam PT went to bathroom without oxygen and is now in acute respiratory distress. PT placed back on Vapotherm. Sepsis Event Evaluation Height, Weight, BMI Height: 6'2.00" Weight: 220lbs. 4.0oz. 99.771742ji; 28.1 BMI Method:Stated Focused Exam Lactate Level 05/30/19 08:02: Lactic Acid Level 0.83 05/31/19 12:01: Lactic Acid Level 0.76 Exam Exam Vital Signs Date Time Temp Pulse Resp B/P (MAP) Pulse Ox O2 Delivery O2 Flow Rate FiO2 06/02/19 07:00 81 06/02/19 04:00 98.2 83 14 155/76 (102) 95 Nasal Cannula 3.00 06/02/19 03:46 93 Vapotherm 20.00 55 06/02/19 03:13 84 Nasal Cannula 3.00 06/02/19 01:00 84 06/02/19 00:00 98.6 84 24 149/80 (103) 91 Nasal Cannula 3.00 06/01/19 20:55 Nasal Cannula 3.00 06/01/19 20:50 98.1 89 20 141/71 (94) 91 Nasal Cannula 3.00 06/01/19 20:33 88 Nasal Cannula 2.00 06/01/19 19:03 83 06/01/19 16:50 97.4 83 20 140/69 (92) 91 Nasal Cannula 2.00 06/01/19 14:20 92 Nasal Cannula 2.00 06/01/19 13:00 84 06/01/19 12:00 97.9 82 22 133/78 (96) 92 Nasal Cannula 3.50 06/01/19 11:30 92 Nasal Cannula 3.00 06/01/19 08:00 97.3 88 22 135/80 (98) 93 Nasal Cannula 3.50 06/01/19 08:00 Nasal Cannula 3.00 06/01/19 07:27 92 Nasal Cannula 4.00 I & O 06/02/19 07:00 Intake Total 3130 ml Output Total 1125 ml Balance 2005 ml Height & Weight Height: 6'2.00" Weight: 220lbs. 4.0oz. 99.325950dt; 28.1 BMI Method:Stated General Appearance: Anxious, Chronically ill, Moderate Distress HEENT: PERRL/EOMI, Pharynx Normal Neck: Full Range of Motion, Non Tender, Supple Respiratory: Chest Non Tender, Accessory Muscle Use, Crackles, Decreased Breath Sounds, Respiratory Distress Cardiovascular: Tachycardia Capillary Refill: Less Than 3 Seconds Gastrointestinal: normal bowel sounds, non tender, soft Extremity: Normal Capillary Refill, Non Tender, Pedal Edema Neurologic/Psychiatric: Alert, Oriented x3 Skin: Normal Color, Warm/Dry Lymphatic: No Adenopathy Results Lab Laboratory Tests 06/01/19 06:10 06/02/19 04:53 Assessment/Plan Assessment/Plan Sepsis secondary to cellulitis of Right lower leg - Merrem -Repeat leal cultures and MRSA nasal swab - pending Hypoxia r/o PNA -acute respiratory distress this AM -Continue Vapotherm -Give solumedrol 125 x 1 then 40 q 6 -SVNS -Lasix x 1 Metabolic acidosis -repeat LA -Continue bicarb gtt Abscess of right toe -surgery is following -Wound care following worsening Renal insufficiency with metabolic acidosis -D/C NSAIDS and Spironolactone Hypokalemia -replace Hx of alcohol use and anxiety Neuropathy Tobacco use -Education CYNTHIA BUENROSTRO DO Jun 02, 2019 07:26
--- NOTE | 2019-06-02 07:30 | NUR ---
verbal orders rec from Dr. Aleman to give 40 mg IV Lasix x 1 dose, Solu-medrol iv 125 mg x 1, then 40mg q 6, place catheter per patient request, up to bedside commode, must wear oxygen at all times. Also, contact Dr. Aleman for ICU transfer if pt condition declines. Report given to Vijay Zarate RN.
[2019-06-02] MEDS ORDERED: FUROSEMIDE 40 MG/4 ML INJ (LASIX) IVP ONE (07:45)
[2019-06-02] MEDS ORDERED: methylPREDNISolone 125 MG (Solu-MEDROL) VIAL IVP ONE (07:45)
[2019-06-02] MEDS: SODIUM BICARBONATE 8.4% VIAL 100 MEQ in 1/2 NS IV SOLUTION 1,000 ML IV SCH ×2 (07:51→18:06)
[2019-06-02 08:00] VITALS: BP 139/76
[2019-06-02] MEDS: POTASSIUM CL 10MEQ/50ML IVPB 50 ML IV SCH ×3 (08:07→11:52)
[2019-06-02] MEDS: hydrALAZINE (APRESOLINE) 25 MG TAB PO SCH ×3 (08:07→20:57)
[2019-06-02] MEDS: amLODIPine 5 MG (NORVASC) TAB PO SCH (08:07)
[2019-06-02] MEDS: DAKIN'S 1/4 STRENGTH (0.125%) 473 ML BTL TOP SCH ×2 (08:07→20:57)
[2019-06-02] MEDS: CLOPIDOGREL 75 MG (PLAVIX) TABLET PO SCH (08:07)
[2019-06-02] MEDS: ASPIRIN E.C. 81 MG (ECOTRIN) TAB PO SCH (08:07)
[2019-06-02] MEDS: SENNA W/DOCUSATE (SENOKOT S) TABLET PO SCH ×2 (08:07→21:06)
[2019-06-02] MEDS: ATENOLOL 25 MG (TENORMIN) TAB PO SCH ×2 (08:07→20:57)
[2019-06-02] MEDS: MAGNESIUM 1 GM/100 ML IVPB 100 ML IV SCH ×2 (08:08→11:53)
--- NOTE | 2019-06-02 11:49 | Progress Note - Hospitalist ---
Subjective HPI/CC On Admission Date Seen by Provider: Jun 02, 2019 Time Seen by Provider: 11:00 CC: Right great toe ulcer with abscess and cellulitis HPI: This is a 58-year-old white male clinic patient of mine for the past 10 years who has a past medical history of alcoholism, hypertension, anxiety and smoking with chronic neuropathy who presented to my clinic after he called for an urgent appointment for a gout attack so labs were drawn prior to appointment and when he arrived I evaluated the right great toe showing a significant ulceration with pustular drainage along with cellulitis of his entire foot spreading up his leg. He was found to be in need of IV antibiotics and Dr. Christie was consulted along with Dr. Gutiérrez for wound care and possible toe abscess respectively. He will be placed on empiric antibiotics provided pain control and he will be on alcohol withdrawal protocol. Patient is currently doing much better did have some anxiety early this morning and wanted a cigarette and I did offer nicotine patch but he declined. Overall his right foot and toe is much improved and arterial ultrasound is pending at time of dictation and understands the diagnosis sepsis and the need to continue on IV antibiotics with close monitoring. Subjective/Events-last exam Patient has required Vapotherm after he got up and went to the bathroom without oxygen and completely decompensated respiratory status hernadez Mother at the bedside has once again reported this this is all from his alcoholism and smoking Patient has never had any COPD issues but it appears now with a multilobar pneumonia and respiratory distress it is all accumulated to this one episode Patient was feeling much better yesterday evening then he decompensated and having difficulties. Nurses supplementing his magnesium he was given IV Solu-Medrol along with nebulizer treatments and Vapotherm and if anything worsens he will be transferred up to the ICU. Creatinine is 2.29 Bicarbonate drip is maintained Mesa catheter was placed Very complex issue Review of Systems General: Fatigue Pulmonary: Dyspnea Focused Exam Lactate Level 05/31/19 12:01: Lactic Acid Level 0.76 Objective Exam Vital Signs Vital Signs Date Time Temp Pulse Resp B/P (MAP) Pulse Ox O2 Delivery O2 Flow Rate FiO2 06/02/19 12:40 82 06/02/19 12:00 97.6 20 161/84 (109) 92 Nasal Cannula 3.50 06/02/19 10:34 55 Capillary Refill : Less Than 3 SecondsLess Than 3 Seconds General Appearance: Anxious, Chronically ill, Mild Distress HEENT: PERRL/EOMI, Pharynx Normal Neck: Full Range of Motion, Non Tender, Supple Respiratory: Chest Non Tender, Accessory Muscle Use, Crackles, Decreased Breath Sounds, Respiratory Distress Cardiovascular: Tachycardia Gastrointestinal: Normal Bowel Sounds, No Organomegaly, No Pulsatile Mass, Non Tender, Soft Back: Normal Inspection, No CVA Tenderness, No Vertebral Tenderness Extremity: Normal Capillary Refill, Non Tender, Pedal Edema Neurologic/Psychiatric: Alert, Oriented x3 Skin: Normal Color, Warm/Dry Lymphatic: No Adenopathy Results/Procedures Lab Laboratory Tests 06/02/19 04:53 Patient resulted labs reviewed. Assessment/Plan Assessment and Plan Assess & Plan/Chief Complaint Assessment: Acute respiratory insufficiency requiring Vapotherm and IV steroids Acute exacerbation of COPD Bilateral infiltrates multi-lobar placed on O2 and Meropenem and DC Zosyn Hypoxia ARF Volume overload acute s/p Sepsis Right great toe ulceration with abscess and severe cellulitis rising up into the leg now resolving Severe neuropathy Alcoholism with withdrawal now resolved Smoker with small vessel disease cessation currently Hypertension OOC due to withdrawal now resolved Anxiety PVD ruled out with normal angiogram Plan: IV fluids for kidney function with bicarbonate drip Empiric antibiotic of Meropenem for pneumonia multi-lobar Appreciate Dr. Christie and Dr. Gutiérrez and Dr Hansen and Dr Aleman Very complex case and may ultimately require ICU transfer if hypoxia worsens IV steroids If anything worsens he will be transferred to ICU for BiPAP and ventilation Diagnosis/Problems Diagnosis/Problems (1) Multifocal pneumonia Status: Acute (2) Sepsis Status: Resolved Qualifiers: Sepsis type: sepsis due to unspecified organism Qualified Codes: A41.9 - Sepsis, unspecified organism Resolution Date/Time: 05/29/19 @ 19:19 (3) Cellulitis of right lower leg Status: Acute (4) Abscess of toe, right Status: Acute (5) Hypertension Status: Chronic Qualifiers: Hypertension type: essential hypertension Qualified Codes: I10 - Essential (primary) hypertension (6) Anxiety Status: Chronic (7) Alcoholism Status: Chronic (8) Smoker Status: Chronic (9) Neuropathy Status: Chronic (10) Ulcer of great toe Status: Acute Qualifiers: Laterality: right Non-pressure ulcer stage: with fat layer exposed Qualified Codes: L97.512 - Non-pressure chronic ulcer of other part of right foot with fat layer exposed (11) Acute renal insufficiency Status: Acute (12) Alcohol withdrawal Status: Resolved Resolution Date/Time: 05/30/19 @ 20:57 (13) Volume overload Status: Acute Qualifiers: Hypervolemia type: unspecified Qualified Codes: E87.70 - Fluid overload, unspecified (14) Elevated brain natriuretic peptide (BNP) level Status: Acute (15) Renal failure Status: Acute Qualifiers: Renal failure chronicity: acute Acute renal failure type: unspecified Qualified Codes: N17.9 - Acute kidney failure, unspecified Clinical Quality Measures DVT/VTE Risk/Contraindication: Risk Factor Score Per Nursin RFS Level Per Nursing on Admit: 2=Moderate Contraindications-Mechi: Other *list below* Other: cellulitis HARDY CAMPBELL DO Jun 02, 2019 11:49
[2019-06-02] MEDS: methylPREDNISolone 40 MG/ML (Solu-MEDROL) VIAL IV SCH ×3 (11:57→23:34)
[2019-06-02 12:00] VITALS: BP 161/84
--- NOTE | 2019-06-02 13:35 | Physical Therapy Daily Note ---
PT Daily Note-Current Subjective Pt is agreeable to treatment. Limited mobility due to high volume oxygen unit. Mental Status Patient Orientation: Person, Place, Time, Situation Attachments: Oxygen, Mesa Catheter, IV Transfers Therapy Code Descriptions/Definitions Functional [place] Measure: 0=Not Assessed/NA 4=Minimal Assistance 1=Total Assistance 5=Supervision or Setup 2=Maximal Assistance 6=Modified [place] 3=Moderate Assistance 7=Complete [place] Therapy Quality Codes: 6 Independent with activity with or without an assistive device 5 Patient requires set up or clean up by helper. Patient completes activity by themselves 4 Supervision or touching assist (CGA). [place] provide cues , steadying assist 3 The helper provides less than half the effort to complete the activity 2 The helper provides more than half the effort to complete the activity 1 Dependent. The helper does all the effort to complete an activity 7 Patient refused to complete or attempt activity 9 The patient did not perform the activity before the current illness or injury 88 Not attempted due to Medical conditions or safety concerns Transfers (B, C, W/C) (FIM): 4 Sit to/from Stand: 4 Weight Bearing Right Lower Extremity: Right Full Weight Bearing Left Lower Extremity: Left Full Weight Bearing Exercises Standin way Ex=Flex, Abd, Ext, Marching Standing Reps: 15 Treatments Standing for 15min with limited range to ambulate due to high volume oxygen unit. Assessment Current Status: Fair Progress Good stability and decent activity tolerance. PT Short Term Goals Short Term Goals Time Frame: Jun 08, 2019 Transfers (B,C,W/C) (FIM): 6 Gait (FIM): 5 Gait Distance Comment: 300' Gait Level of Assist: 5 Gait Assistive Device: None PT Plan Treatment/Plan Treatment Plan: Continue Plan of Care Treatment Plan: Bed Mobility, Education, Functional Activity Francesca, Functional Strength, Gait, Safety, Therapeutic Exercise, Transfers Treatment Duration: Jun 08, 2019 Frequency: 6 times per week Estimated Hrs Per Day: .25 hour per day Patient and/or Family Agrees t: Yes Time/GCodes Time In: 1207 Time Out: 1222 Total Billed Treatment Time: 15 Total Billed Treatment 1, fa 15 JULIO HERNANDEZ PT Jun 02, 2019 13:35
--- NOTE | 2019-06-02 13:45 | Cardiology Progress Note ---
Cardiology SOAP Progress Note Subjective: Still short of breath. Objective: I&O/Vital Signs 06/02/19 06/02/19 06/02/19 06/02/19 03:13 03:46 04:00 07:00 Temp 98.2 Pulse 83 81 Resp 14 B/P (MAP) 155/76 (102) Pulse Ox 84 93 95 O2 Delivery Nasal Cannula Vapotherm Nasal Cannula O2 Flow Rate 3.00 20.00 3.00 FiO2 55 06/02/19 06/02/19 06/02/19 06/02/19 07:59 08:00 08:00 10:34 Temp 97.8 Pulse 80 Resp 18 B/P (MAP) 139/76 (97) Pulse Ox 93 95 94 O2 Delivery Vapotherm Nasal Cannula Vapotherm Vapotherm O2 Flow Rate 20.00 3.50 21.00 20.00 FiO2 55 55 55 06/02/19 06/02/19 12:00 12:40 Temp 97.6 Pulse 84 82 Resp 20 B/P (MAP) 161/84 (109) Pulse Ox 92 O2 Delivery Nasal Cannula O2 Flow Rate 3.50 06/02/19 00:00 Intake Total 2110 ml Output Total 1125 ml Balance 985 ml Weight (Pounds): 220 Weight (Ounces): 4.0 Weight (Calculated Kilograms): 99.153730 Constitutional: appears stated age, AAO x 3; No apparent distress; well- developed, well-nourished Respiratory: No accessory muscle use, No respiratory distress, No chest tender, No chest expansion is symmetric; chest is bilaterally symmetric; No lungs clear to percussion, No crackles, No rhonchi, No rales, No stridor; wheezing; No pleural rub, No other Cardiovascular: regular rate-rhythm; No irregularly irregular, No extra beats, No parasternal heave is noted, No JVD, No edema, No bradycardia, No tachycardia, No point of maximal impulse, No cardiac thrills are palpable; S1 and S2; No gallop/S3, No gallop/S4, No diastolic murmur, No systolic murmur, No friction rub, No click, No other Gastrointestional: No tender, No soft, No round, No distended, No pulsatile mass, No organomegaly, No guarding, No rebound, No tenderness, No hernia, No mass, No audible bowel sounds, No abnormal bowel sounds, No abdominal bruits, No spleenomegaly, No other Extremities: No normal range of motion, No non-tender, No normal inspection, No pedal edema, No calf tenderness, No normal capillary refill, No pelvis stable, No calf tenderness, No inflammation, No pedal edema, No slow capillary refill, No swelling, No other, No abrasion, No clubbing, No cyanosis, No ecchymosis, No laceration, No no lower extremity edema bilateral, No significant edema, No ten derness; wound (right great toe) Neurologic/Psychiatric: no motor/sensory deficits, alert, normal mood/affect, oriented x 3, power is 5/5 both on sides Skin: No rash, No ulcerations Results/Procedures: Labs Laboratory Tests 06/02/19 04:53: White Blood Count 9.2, Red Blood Count 3.22L, Hemoglobin 12.0L, Hematocrit 36L, Mean Corpuscular Volume 113H, Mean Corpuscular Hemoglobin 37H, Mean Corpuscular Hemoglobin Concent 33, Red Cell Distribution Width 15.9H, Platelet Count 308, Mean Platelet Volume 9.8, Neutrophils (%) (Auto) 67, Lymphocytes (%) (Auto) 14, Monocytes (%) (Auto) 13H, Eosinophils (%) (Auto) 5, Basophils (%) (Auto) 1, Neutrophils # (Auto) 6.2, Lymphocytes # (Auto) 1.3, Monocytes # (Auto) 1.2H, Eosinophils # (Auto) 0.5H, Basophils # (Auto) 0.1, Sodium Level 140, Potassium Level 3.7, Chloride Level 108H, Carbon Dioxide Level 19L, Anion Gap 13, Blood Urea Nitrogen 21H, Creatinine 2.29H, Estimat Glomerular Filtration Rate 30, BUN/Creatinine Ratio 9, Glucose Level 118H, Calcium Level 8.5, Phosphorus Level 3.1, Magnesium Level 1.6L Microbiology 05/30/19 Blood Culture - Preliminary, Resulted No growth A/P: Assessment/Dx: Right great toe cellulitis, abscess, nonhealing ulcer, No PAD on peripheral angiogram done 05/28/2019, Hypertension, Active smoking, Shortness of breath. Plan: IV fluids, wound care and general surgery following. No PAD on peripheral angiogram done on 05/28/2019. Patient is complaining of shortness of breath. Wheezing. I will recommend an echocardiogram done 05/29/2019 which was normal LV function with mild to moderate diastolic dysfunction. PA pressure 59 mmHg. No significant valvular heart disease. On Vapotherm. COPD, due to active smoking. Acute kidney injury, likely due to dehydration, sepsis, contrast injury. IV fluids. Improved with IV fluids. Smoking cessation was strongly recommended. Thank you for your consultation. Please call me if you have any questions. Salvatore Hansen MD, FACP, FACC, FSCAI, FHRS, CCDS Interventional Cardiology Cardiac Electrophysiology Vascular Medicine and Endovascular Interventions Focused Exam Lactate Level 05/31/19 12:01: Lactic Acid Level 0.76 Isamar HANSEN MD Jun 02, 2019 1:45 pm
[2019-06-02 16:12] VITALS: BP 118/74
[2019-06-02] MEDS: ENOXAPARIN 40 MG/0.4 ML (LOVENOX) SYR SC SCH (17:10)
--- NOTE | 2019-06-02 18:22 | NUR ---
THIS RN NOTIFIED DR BUENROSTRO OF PTS CONDITION THROUGHOUT DAY. NO NEW ORDERS AT THIS TIME.
[2019-06-02 19:18] VITALS: BP 127/73
[2019-06-03 00:30] VITALS: BP 140/83
[2019-06-03] MEDS: RT-ALBUTEROL/IPRATROPIUM 3 ML (DUONEB) VIAL INH SCH ×7 (00:51→23:16)
[2019-06-03] MEDS: SODIUM BICARBONATE 8.4% VIAL 100 MEQ in 1/2 NS IV SOLUTION 1,000 ML IV SCH (04:18)
[2019-06-03 04:40] VITALS: BP 117/70
[2019-06-03] MEDS: LORazepam 1 MG (ATIVAN) TAB PO PRN ×2 (05:01→22:33)
[2019-06-03 05:29] LABS: BASOPHILS % (AUTO) 0 % (0-10); EOSINOPHILS % (AUTO) 0 % (0-10); HEMATOCRIT 35 % (40-54); HEMOGLOBIN 11.4 G/DL (13.3-17.7); LYMPHOCYTES # (AUTO) 0.9 X 10^3 (1.0-4.0); LYMPHOCYTES % (AUTO) 6 % (12-44); MEAN CORPUSCULAR HEMOGLOBIN 37 PG (25-34); MEAN CORPUSCULAR HGB CONC 33 G/DL (32-36); MEAN CORPUSCULAR VOLUME 112 FL (80-99); MEAN PLATELET VOLUME 10.2 FL (7.4-10.4); MONOCYTES # (AUTO) 0.8 X 10^3 (0.0-1.0); MONOCYTES % (AUTO) 5 % (0-12); NEUTROPHILS # (AUTO) 12.9 X 10^3 (1.8-7.8); NEUTROPHILS % (AUTO) 88 % (42-75); PLATELET COUNT 362 10^3/uL (130-400); RED CELL DISTRIBUTION WIDTH 15.8 % (10.0-14.5); WHITE BLOOD COUNT 14.6 10^3/uL (4.3-11.0)
[2019-06-03 05:50] LABS: CREATININE SERUM 2.22 MG/DL (0.60-1.30); MAGNESIUM 2.1 MG/DL (1.8-2.4); POTASSIUM 4.6 MMOL/L (3.6-5.0)
[2019-06-03] MEDS: methylPREDNISolone 40 MG/ML (Solu-MEDROL) VIAL IV SCH ×3 (06:10→17:02)
[2019-06-03] MEDS: KCL 10 MEQ TAB (MICRO K) PO SCH ×3 (06:10→17:05)
[2019-06-03] MEDS: LACTOBACILLUS ACIDOPHILUS (PROBIOTIC) CAPSULE PO SCH ×4 (06:10→22:02)
[2019-06-03 08:00] VITALS: BP 144/85
[2019-06-03] MEDS ORDERED: FUROSEMIDE 40 MG/4 ML INJ (LASIX) IVP ONE (09:00)
[2019-06-03] MEDS: ACETAMINOPHEN 500 MG TAB (TYLENOL) PO PRN (09:21)
[2019-06-03] MEDS: CLOPIDOGREL 75 MG (PLAVIX) TABLET PO SCH (09:21)
[2019-06-03] MEDS: MEROPENEM 500 MG/SWFI 10 ML IV PUSH IV SCH ×4 (09:21→17:03)
[2019-06-03] MEDS: SENNA W/DOCUSATE (SENOKOT S) TABLET PO SCH ×2 (09:22→21:10)
[2019-06-03] MEDS: ATENOLOL 25 MG (TENORMIN) TAB PO SCH ×2 (09:22→22:02)
[2019-06-03] MEDS: hydrALAZINE (APRESOLINE) 25 MG TAB PO SCH ×3 (09:22→22:02)
[2019-06-03] MEDS: amLODIPine 5 MG (NORVASC) TAB PO SCH (09:23)
[2019-06-03] MEDS: ASPIRIN E.C. 81 MG (ECOTRIN) TAB PO SCH (09:23)
--- NOTE | 2019-06-03 09:27 | Pulmonary Progress Note ---
Subjective Time Seen by a Provider: 09:26 Subjective/Events-last exam PT still requiring vapotherm Sepsis Event Evaluation Height, Weight, BMI Height: 6'2.00" Weight: 219lbs. 5.0oz. 99.135466ji; 28.1 BMI Method:Stated Focused Exam Lactate Level 05/31/19 12:01: Lactic Acid Level 0.76 Exam Exam Vital Signs Date Time Temp Pulse Resp B/P (MAP) Pulse Ox O2 Delivery O2 Flow Rate FiO2 06/03/19 07:15 93 Vapotherm 35.00 75 06/03/19 07:00 84 06/03/19 04:40 98.3 90 22 117/70 (86) 94 Vapotherm 75.00 35.00 06/03/19 02:00 93 35.00 75 06/03/19 01:20 92 Vapotherm 25.00 65 06/03/19 01:00 81 06/03/19 00:30 98.5 81 20 140/83 (102) 89 Vapotherm 55.00 20.00 06/02/19 20:57 Vapotherm 21.00 55 06/02/19 19:18 98.6 82 22 127/73 (91) 93 Vapotherm 55.00 20.00 06/02/19 19:05 92 Vapotherm 20.00 55 06/02/19 19:00 84 06/02/19 16:12 97.6 84 18 118/74 (89) 93 Vapotherm 55.00 20.00 06/02/19 15:17 90 Vapotherm 20.00 55 06/02/19 12:40 82 06/02/19 12:00 97.6 84 20 161/84 (109) 92 Nasal Cannula 3.50 06/02/19 10:34 94 Vapotherm 20.00 55 I & O 06/03/19 07:00 Intake Total 5100 ml Output Total 2425 ml Balance 2675 ml Height & Weight Height: 6'2.00" Weight: 219lbs. 5.0oz. 99.062117cs; 28.1 BMI Method:Stated General Appearance: Anxious, Mild Distress HEENT: PERRL/EOMI, TMs Normal Neck: Full Range of Motion, Supple Respiratory: Chest Non Tender, Crackles, Decreased Breath Sounds Cardiovascular: Regular Rate, Rhythm Capillary Refill: Less Than 3 Seconds Gastrointestinal: normal bowel sounds, soft Extremity: Normal Capillary Refill, Pedal Edema Neurologic/Psychiatric: Alert, Oriented x3 Skin: Normal Color, Warm/Dry Lymphatic: No Adenopathy Results Lab Laboratory Tests 06/02/19 04:53 06/03/19 05:15 Assessment/Plan Assessment/Plan Sepsis secondary to cellulitis of Right lower leg - Merrem -Repeat leal cultures and MRSA nasal swab - pending Hypoxia r/o PNA -Continue Vapotherm -solumedrol 40 q 6 -SVNS -Lasix x 1 Metabolic acidosis - resolved -D/C bicarb gtt Abscess of right toe -surgery is following -Wound care following worsening Renal insufficiency with metabolic acidosis -D/C NSAIDS and Spironolactone Hx of alcohol use and anxiety Neuropathy Tobacco use -Education CYNTHIA BUENROSTRO DO Jun 03, 2019 09:27
--- NOTE | 2019-06-03 09:28 | Diagnostic Imaging Report ---
EXAM: CHEST 1 VIEW, AP/PA ONLY INDICATION: Shortness of breath. COMPARISON: Chest radiographs 06/01/2019. FINDINGS: Cardiomegaly. There are increasing interstitial opacities throughout both lungs. Also increasing consolidation in the right lung base. Increasing bilateral pleural effusions. No acute osseous findings. IMPRESSION: Interval progression of cardiomegaly, diffuse interstitial opacities, consolidation in the right lung base and bilateral pleural effusions. Findings are concerning a progressive infectious process and/or pulmonary edema. Dictated by: Dictated on workstation # [id number]
--- NOTE | 2019-06-03 09:30 | NUR ---
DR. BUENROSTRO HERE. ORDERS REC'D. LASIX 40 IV X1, NA BICARB DC'D, TYLENOL 500MG PO FOR HEADACHE, CXR DONE AT BEDSIDE.
--- NOTE | 2019-06-03 11:29 | Progress Note - Hospitalist ---
Subjective HPI/CC On Admission Date Seen by Provider: Jun 03, 2019 Time Seen by Provider: 11:00 CC: Right great toe ulcer with abscess and cellulitis HPI: This is a 58-year-old white male clinic patient of mine for the past 10 years who has a past medical history of alcoholism, hypertension, anxiety and smoking with chronic neuropathy who presented to my clinic after he called for an urgent appointment for a gout attack so labs were drawn prior to appointment and when he arrived I evaluated the right great toe showing a significant ulceration with pustular drainage along with cellulitis of his entire foot spreading up his leg. He was found to be in need of IV antibiotics and Dr. Christie was consulted along with Dr. Gutiérrez for wound care and possible toe abscess respectively. He will be placed on empiric antibiotics provided pain control and he will be on alcohol withdrawal protocol. Patient is currently doing much better did have some anxiety early this morning and wanted a cigarette and I did offer nicotine patch but he declined. Overall his right foot and toe is much improved and arterial ultrasound is pending at time of dictation and understands the diagnosis sepsis and the need to continue on IV antibiotics with close monitoring. Subjective/Events-last exam Patient actually appears improved Vapotherm will be weaned down to hi-margo O2 BNC Family at bedside BM+ Eating better Checked meds and labs and CXR Conferred with Quincy Hansen and Love in-depth Very extensive case DC IVF and give Lasix per Dr Aleman Creatinine is improved Review of Systems General: Fatigue Pulmonary: Dyspnea Focused Exam Lactate Level Objective Exam Vital Signs Vital Signs Date Time Temp Pulse Resp B/P (MAP) Pulse Ox O2 Delivery O2 Flow Rate FiO2 06/03/19 12:36 81 06/03/19 11:04 96 Vapotherm 35.00 75 06/03/19 08:00 97.8 24 144/85 (104) Capillary Refill : Less Than 3 SecondsLess Than 3 Seconds General Appearance: No Apparent Distress, WD/WN, Anxious, Chronically ill HEENT: PERRL/EOMI, TMs Normal Neck: Full Range of Motion, Supple Respiratory: Chest Non Tender, Decreased Breath Sounds Cardiovascular: Regular Rate, Rhythm Gastrointestinal: Normal Bowel Sounds, No Organomegaly, No Pulsatile Mass, Non Tender, Soft Back: Normal Inspection, No CVA Tenderness, No Vertebral Tenderness Extremity: Normal Capillary Refill, Pedal Edema Neurologic/Psychiatric: Alert, Oriented x3 Skin: Normal Color, Warm/Dry Lymphatic: No Adenopathy Results/Procedures Lab Laboratory Tests 06/03/19 05:15 Patient resulted labs reviewed. Assessment/Plan Assessment and Plan Assess & Plan/Chief Complaint Assessment: Acute respiratory insufficiency requiring Vapotherm and IV steroids Acute exacerbation of COPD Bilateral infiltrates multi-lobar placed on O2 and Meropenem and DC Zosyn Hypoxia ARF Volume overload acute s/p Sepsis Right great toe ulceration with abscess and severe cellulitis rising up into the leg now resolving Severe neuropathy Alcoholism with withdrawal now resolved Smoker with small vessel disease cessation currently Hypertension OOC due to withdrawal now resolved Anxiety PVD ruled out with normal angiogram Metabolic acidosis s/p bicarb drip now DC today Plan: IV Lasix Empiric antibiotic of Meropenem for pneumonia multi-lobar Appreciate Dr. Christie and Dr. Gutiérrez and Dr Hansen and Dr Aleman Very complex case and may ultimately require ICU transfer if hypoxia worsens IV steroids If anything worsens he will be transferred to ICU for BiPAP and ventilation but appears less likely Diagnosis/Problems Diagnosis/Problems (1) Multifocal pneumonia Status: Acute (2) Sepsis Status: Resolved Qualifiers: Sepsis type: sepsis due to unspecified organism Qualified Codes: A41.9 - Sepsis, unspecified organism Resolution Date/Time: 05/29/19 @ 19:19 (3) Cellulitis of right lower leg Status: Acute (4) Abscess of toe, right Status: Acute (5) Hypertension Status: Chronic Qualifiers: Hypertension type: essential hypertension Qualified Codes: I10 - Essential (primary) hypertension (6) Anxiety Status: Chronic (7) Alcoholism Status: Chronic (8) Smoker Status: Chronic (9) Neuropathy Status: Chronic (10) Ulcer of great toe Status: Acute Qualifiers: Laterality: right Non-pressure ulcer stage: with fat layer exposed Qualified Codes: L97.512 - Non-pressure chronic ulcer of other part of right foot with fat layer exposed (11) Acute renal insufficiency Status: Acute (12) Alcohol withdrawal Status: Resolved Resolution Date/Time: 05/30/19 @ 20:57 (13) Volume overload Status: Acute Qualifiers: Hypervolemia type: unspecified Qualified Codes: E87.70 - Fluid overload, unspecified (14) Elevated brain natriuretic peptide (BNP) level Status: Acute (15) Renal failure Status: Acute Qualifiers: Renal failure chronicity: acute Acute renal failure type: unspecified Qualified Codes: N17.9 - Acute kidney failure, unspecified Clinical Quality Measures DVT/VTE Risk/Contraindication: Risk Factor Score Per Nursin RFS Level Per Nursing on Admit: 2=Moderate Contraindications-Mechi: Other *list below* Other: cellulitis HARDY CAMPBELL DO Jun 03, 2019 11:29
[2019-06-03 12:00] VITALS: BP 131/72
--- NOTE | 2019-06-03 12:07 | Cardiology Progress Note ---
Cardiology SOAP Progress Note Subjective: Short of breath Objective: I&O/Vital Signs 06/03/19 06/03/19 06/03/19 06/03/19 00:30 01:00 01:20 02:00 Temp 98.5 Pulse 81 81 Resp 20 B/P (MAP) 140/83 (102) Pulse Ox 89 92 93 O2 Delivery Vapotherm Vapotherm O2 Flow Rate 55.00 25.00 35.00 20.00 FiO2 65 75 06/03/19 06/03/19 06/03/19 06/03/19 04:40 07:00 07:15 08:00 Temp 98.3 97.8 Pulse 90 84 87 Resp 22 24 B/P (MAP) 117/70 (86) 144/85 (104) Pulse Ox 94 93 94 O2 Delivery Vapotherm Vapotherm Vapotherm O2 Flow Rate 75.00 35.00 75.00 35.00 35.00 FiO2 75 06/03/19 06/03/19 08:00 11:04 Pulse Ox 96 O2 Delivery Vapotherm Vapotherm O2 Flow Rate 35.00 35.00 FiO2 75 75 06/02/19 23:59 Intake Total 2460 ml Output Total 1950 ml Balance 510 ml Weight (Pounds): 219 Weight (Ounces): 5.0 Weight (Calculated Kilograms): 99.289250 Constitutional: appears stated age, AAO x 3; No apparent distress; well- developed, well-nourished Respiratory: accessory muscle use, respiratory distress; No chest tender, No chest expansion is symmetric; chest is bilaterally symmetric; No lungs clear to percussion, No crackles, No rhonchi, No rales, No stridor; wheezing; No pleural rub, No other Cardiovascular: regular rate-rhythm; No irregularly irregular, No extra beats, No parasternal heave is noted, No JVD, No edema, No bradycardia, No tachycardia, No point of maximal impulse, No cardiac thrills are palpable; S1 and S2; No gallop/S3, No gallop/S4, No diastolic murmur, No systolic murmur, No friction rub, No click, No other Gastrointestional: No tender, No soft, No round, No distended, No pulsatile mass, No organomegaly, No guarding, No rebound, No tenderness, No hernia, No mass, No audible bowel sounds, No abnormal bowel sounds, No abdominal bruits, No spleenomegaly, No other Extremities: No normal range of motion, No non-tender, No normal inspection, No pedal edema, No calf tenderness, No normal capillary refill, No pelvis stable, No calf tenderness, No inflammation, No pedal edema, No slow capillary refill, No swelling, No other, No abrasion, No clubbing, No cyanosis, No ecchymosis, No laceration, No no lower extremity edema bilateral, No significant edema, No tenderness; wound (right great toe) Neurologic/Psychiatric: no motor/sensory deficits, alert, normal mood/affect, oriented x 3, power is 5/5 both on sides Skin: No rash, No ulcerations Results/Procedures: Labs Laboratory Tests 06/03/19 05:15: White Blood Count 14.6H, Red Blood Count 3.12L, Hemoglobin 11.4L, Hematocrit 35L , Mean Corpuscular Volume 112H, Mean Corpuscular Hemoglobin 37H, Mean Corpuscular Hemoglobin Concent 33, Red Cell Distribution Width 15.8H, Platelet Count 362, Mean Platelet Volume 10.2, Neutrophils (%) (Auto) 88H, Lymphocytes (%) (Auto) 6L, Monocytes (%) (Auto) 5, Eosinophils (%) (Auto) 0, Basophils (%) (Auto) 0, Neutrophils # (Auto) 12.9H, Lymphocytes # (Auto) 0.9L, Monocytes # (Auto) 0.8, Eosinophils # (Auto) 0.0, Basophils # (Auto) 0.0, Sodium Level 141, Potassium Level 4.6, Chloride Level 105, Carbon Dioxide Level 22, Anion Gap 14, Blood Urea Nitrogen 29H, Creatinine 2.22H, Estimat Glomerular Filtration Rate 31, BUN/Creatinine Ratio 13, Glucose Level 154H, Calcium Level 9.0, Magnesium Level 2.1 06/03/19 09:41: Phosphorus Level 4.3 Microbiology 05/30/19 Blood Culture - Preliminary, Resulted No growth A/P: Assessment/Dx: Right great toe cellulitis, abscess, nonhealing ulcer, No PAD on peripheral angiogram done 05/28/2019, Hypertension, Active smoking, Shortness of breath. Plan: IV fluids, wound care and general surgery following. No PAD on peripheral angiogram done on 05/28/2019. Patient is complaining of shortness of breath. Wheezing. I will recommend an echocardiogram done 05/29/2019 which was normal LV function with mild to moderate diastolic dysfunction. PA pressure 59 mmHg. No significant valvular heart disease. On Vapotherm. defer to Dr Aleman. COPD, due to active smoking. Acute kidney injury, likely due to dehydration, sepsis, contrast injury. IV fluids. Improved with IV fluids. Smoking cessation was strongly recommended. Thank you for your consultation. Please call me if you have any questions. Salvatore Hansen MD, FACP, FACC, FSCAI, FHRS, CCDS Interventional Cardiology Cardiac Electrophysiology Vascular Medicine and Endovascular Interventions Isamar HANSEN MD Jun 03, 2019 12:07 pm
[2019-06-03] MEDS: DAKIN'S 1/4 STRENGTH (0.125%) 473 ML BTL TOP SCH ×2 (13:30→22:03)
--- NOTE | 2019-06-03 15:00 | NUR ---
RT HERE AND CHANGED TO 15L HI ANTHONY NC.
[2019-06-03 16:05] VITALS: BP 130/78
[2019-06-03] MEDS: ENOXAPARIN 40 MG/0.4 ML (LOVENOX) SYR SC SCH (17:05)
[2019-06-03 19:55] VITALS: BP 109/58
[2019-06-04] MEDS: MEROPENEM 500 MG/SWFI 10 ML IV PUSH IV SCH ×6 (00:35→17:02)
[2019-06-04] MEDS: methylPREDNISolone 40 MG/ML (Solu-MEDROL) VIAL IV SCH ×4 (00:35→17:20)
[2019-06-04 00:45] VITALS: BP 132/74
[2019-06-04] MEDS: RT-ALBUTEROL/IPRATROPIUM 3 ML (DUONEB) VIAL INH SCH ×4 (02:26→14:53)
[2019-06-04 04:00] VITALS: BP 117/61
[2019-06-04] MEDS: LORazepam 1 MG (ATIVAN) TAB PO PRN (05:08)
[2019-06-04 05:31] LABS: BASOPHILS % (AUTO) 0 % (0-10); EOSINOPHILS % (AUTO) 0 % (0-10); HEMATOCRIT 33 % (40-54); LYMPHOCYTES # (AUTO) 1.1 X 10^3 (1.0-4.0); LYMPHOCYTES % (AUTO) 7 % (12-44); MEAN CORPUSCULAR HEMOGLOBIN 37 PG (25-34); MEAN CORPUSCULAR HGB CONC 33 G/DL (32-36); MEAN CORPUSCULAR VOLUME 113 FL (80-99); MEAN PLATELET VOLUME 10.3 FL (7.4-10.4); MONOCYTES # (AUTO) 0.9 X 10^3 (0.0-1.0); MONOCYTES % (AUTO) 6 % (0-12); NEUTROPHILS # (AUTO) 13.5 X 10^3 (1.8-7.8); NEUTROPHILS % (AUTO) 87 % (42-75); PLATELET COUNT 354 10^3/uL (130-400); WHITE BLOOD COUNT 15.5 10^3/uL (4.3-11.0)
[2019-06-04 05:53] LABS: CALCIUM 9.1 MG/DL (8.5-10.1); CREATININE SERUM 2.33 MG/DL (0.60-1.30); MAGNESIUM 2.1 MG/DL (1.8-2.4); POTASSIUM 4.8 MMOL/L (3.6-5.0)
[2019-06-04] MEDS: LACTOBACILLUS ACIDOPHILUS (PROBIOTIC) CAPSULE PO SCH ×4 (06:07→21:22)
[2019-06-04] MEDS: KCL 10 MEQ TAB (MICRO K) PO SCH ×3 (06:08→17:18)
[2019-06-04 08:00] VITALS: BP 125/72
[2019-06-04] MEDS: hydrALAZINE (APRESOLINE) 25 MG TAB PO SCH ×3 (08:00→21:22)
[2019-06-04] MEDS: CLOPIDOGREL 75 MG (PLAVIX) TABLET PO SCH (08:00)
[2019-06-04] MEDS: amLODIPine 5 MG (NORVASC) TAB PO SCH (08:00)
[2019-06-04] MEDS: ASPIRIN E.C. 81 MG (ECOTRIN) TAB PO SCH (08:00)
[2019-06-04] MEDS: SENNA W/DOCUSATE (SENOKOT S) TABLET PO SCH ×2 (08:00→21:18)
[2019-06-04] MEDS: ATENOLOL 25 MG (TENORMIN) TAB PO SCH ×2 (08:00→21:22)
[2019-06-04] MEDS: DAKIN'S 1/4 STRENGTH (0.125%) 473 ML BTL TOP SCH ×2 (08:01→21:25)
--- NOTE | 2019-06-04 10:20 | Physical Therapy Daily Note ---
PT Daily Note-Current Subjective Patient reports frustration with requiring vapotherm for O2. He reports before on vapotherm, he was ambulating independently in hallway with O2 pulling his own tank. Mental Status Patient Orientation: Normal For Age Attachments: Oxygen (vapotherm ) Transfers Therapy Code Descriptions/Definitions Functional [place] Measure: 0=Not Assessed/NA 4=Minimal Assistance 1=Total Assistance 5=Supervision or Setup 2=Maximal Assistance 6=Modified [place] 3=Moderate Assistance 7=Complete [place] Therapy Quality Codes: 6 Independent with activity with or without an assistive device 5 Patient requires set up or clean up by helper. Patient completes activity by themselves 4 Supervision or touching assist (CGA). [place] provide cues , steadying assist 3 The helper provides less than half the effort to complete the activity 2 The helper provides more than half the effort to complete the activity 1 Dependent. The helper does all the effort to complete an activity 7 Patient refused to complete or attempt activity 9 The patient did not perform the activity before the current illness or injury 88 Not attempted due to Medical conditions or safety concerns Transfers (B, C, W/C) (FIM): 7 Scootin Supine to/from Sit: 7 Sit to/from Stand: 7 Bed to/from Chair: 7 Weight Bearing Right Lower Extremity: Right Full Weight Bearing Left Lower Extremity: Left Full Weight Bearing Gait Training Gait (FIM): 1 Distance (FIM): 1=up to 49 ft Distance: 10' Gait Level of Assist: 7 Gait Assistive Device: None functional. Assessment Patient is independent with all gross motor skills and was up independently prior to vapotherm use. PT to see patient x 1 more session due to patient's compliance with ambulating PRN in hallway on NC O2. Patient is up independently in room currently with vapotherm restriction. PT Short Term Goals Short Term Goals Time Frame: Jun 08, 2019 Transfers (B,C,W/C) (FIM): 6 Gait (FIM): 5 Gait Distance Comment: 300' Gait Level of Assist: 5 Gait Assistive Device: None PT Plan Treatment/Plan Treatment Plan: Continue Plan of Care Treatment Plan: Bed Mobility, Education, Functional Activity Francesca, Functional Strength, Gait, Safety, Therapeutic Exercise, Transfers Treatment Duration: Jun 08, 2019 Frequency: 6 times per week Estimated Hrs Per Day: .25 hour per day Patient and/or Family Agrees t: Yes Time/GCodes Time In: 900 Time Out: 911 Total Billed Treatment Time: 11 Total Billed Treatment 1 visit FA 11 min JENNA OWUSU PT Jun 04, 2019 10:19
--- NOTE | 2019-06-04 10:36 | Progress Note - Hospitalist ---
Subjective HPI/CC On Admission Date Seen by Provider: Jun 04, 2019 Time Seen by Provider: 09:45 CC: Right great toe ulcer with abscess and cellulitis HPI: This is a 58-year-old white male clinic patient of mine for the past 10 years who has a past medical history of alcoholism, hypertension, anxiety and smoking with chronic neuropathy who presented to my clinic after he called for an urgent appointment for a gout attack so labs were drawn prior to appointment and when he arrived I evaluated the right great toe showing a significant ulceration with pustular drainage along with cellulitis of his entire foot spreading up his leg. He was found to be in need of IV antibiotics and Dr. Christie was consulted along with Dr. Gutiérrez for wound care and possible toe abscess respectively. He will be placed on empiric antibiotics provided pain control and he will be on alcohol withdrawal protocol. Patient is currently doing much better did have some anxiety early this morning and wanted a cigarette and I did offer nicotine patch but he declined. Overall his right foot and toe is much improved and arterial ultrasound is pending at time of dictation and understands the diagnosis sepsis and the need to continue on IV antibiotics with close monitoring. Subjective/Events-last exam Pt has had continued hospital course Required Vapotherm again but did tolerate BiPAP very well yesterday last night very well Dark stools will be checked for hemacult Overall feels much better and I did inquire with inpatient rehab to see if we could continue his recovery there Family at the bedside Checked meds and labs Creatinine at 2.3 [place]a catheter maintained Review of Systems General: Fatigue Pulmonary: Dyspnea Objective Exam Vital Signs Vital Signs Date Time Temp Pulse Resp B/P (MAP) Pulse Ox O2 Delivery O2 Flow Rate FiO2 06/04/19 19:33 96.2 73 22 164/94 (117) 93 Vapotherm 60.00 20.00 06/04/19 14:53 70 Capillary Refill : Less Than 3 SecondsLess Than 3 Seconds General Appearance: No Apparent Distress, WD/WN, Anxious, Chronically ill HEENT: PERRL/EOMI, TMs Normal Neck: Full Range of Motion, Supple Respiratory: Chest Non Tender, Lungs Clear, Normal Breath Sounds, Accessory Muscle Use (when talking) Cardiovascular: Regular Rate, Rhythm Gastrointestinal: Normal Bowel Sounds, No Organomegaly, No Pulsatile Mass, Non Tender, Soft Back: Normal Inspection, No CVA Tenderness, No Vertebral Tenderness Extremity: Normal Capillary Refill, Pedal Edema Neurologic/Psychiatric: Alert, Oriented x3 Skin: Normal Color, Warm/Dry Lymphatic: No Adenopathy Results/Procedures Lab Laboratory Tests 06/04/19 04:45 06/04/19 05:10 Patient resulted labs reviewed. Assessment/Plan Assessment and Plan Assess & Plan/Chief Complaint Assessment: Acute respiratory insufficiency requiring Vapotherm and IV steroids and biPAP but improved today 06/04/19 Acute exacerbation of COPD Bilateral infiltrates multi-lobar placed on O2 and Meropenem and DC Zosyn Hypoxia ARF Volume overload acute s/p Sepsis Right great toe ulceration with abscess and severe cellulitis rising up into the leg now resolving Severe neuropathy Alcoholism with withdrawal now resolved Smoker with small vessel disease cessation currently Hypertension OOC due to withdrawal now resolved Anxiety PVD ruled out with normal angiogram Metabolic acidosis s/p bicarb drip now DC yesterday Plan: IV Lasix per Dr Aleman Empiric antibiotic of Meropenem for pneumonia multi-lobar Appreciate Dr. Christie and Dr. Gutiérrez and Dr Hansen and Dr Aleman Very complex case and may ultimately require ICU transfer if hypoxia worsens IV steroids If anything worsens he will be transferred to ICU for BiPAP and ventilation but appears less likely IRF? Diagnosis/Problems Diagnosis/Problems (1) Multifocal pneumonia Status: Acute (2) Sepsis Status: Resolved Qualifiers: Sepsis type: sepsis due to unspecified organism Qualified Codes: A41.9 - Sepsis, unspecified organism Resolution Date/Time: 05/29/19 @ 19:19 (3) Cellulitis of right lower leg Status: Acute (4) Abscess of toe, right Status: Acute (5) Hypertension Status: Chronic Qualifiers: Hypertension type: essential hypertension Qualified Codes: I10 - Essential (primary) hypertension (6) Anxiety Status: Chronic (7) Alcoholism Status: Chronic (8) Smoker Status: Chronic (9) Neuropathy Status: Chronic (10) Ulcer of great toe Status: Acute Qualifiers: Laterality: right Non-pressure ulcer stage: with fat layer exposed Qualified Codes: L97.512 - Non-pressure chronic ulcer of other part of right foot with fat layer exposed (11) Acute renal insufficiency Status: Acute (12) Alcohol withdrawal Status: Resolved Resolution Date/Time: 05/30/19 @ 20:57 (13) Volume overload Status: Acute Qualifiers: Hypervolemia type: unspecified Qualified Codes: E87.70 - Fluid overload, unspecified (14) Elevated brain natriuretic peptide (BNP) level Status: Acute (15) Renal failure Status: Acute Qualifiers: Renal failure chronicity: acute Acute renal failure type: unspecified Qualified Codes: N17.9 - Acute kidney failure, unspecified Clinical Quality Measures DVT/VTE Risk/Contraindication: Risk Factor Score Per Nursin RFS Level Per Nursing on Admit: 2=Moderate Contraindications-Mechi: Other *list below* Other: cellulitis HARDY CAMPBELL DO Jun 04, 2019 10:36
--- NOTE | 2019-06-04 10:58 | Diagnostic Imaging Report ---
INDICATION: Shortness of breath. Time of exam 10:21 a.m. COMPARISON: Correlation is made with prior study one day earlier. FINDINGS: Bilateral pulmonary infiltrates show partial clearing when compared with yesterday. There is continued areas of parenchymal consolidation in both lung bases. Small effusion on the left is seen which appears improved as well. There is no pneumothorax. IMPRESSION: Overall partial clearing of pulmonary infiltrates and effusions when compared with examination one day earlier. Dictated by: Dictated on workstation # [id number]
--- NOTE | 2019-06-04 11:38 | Occupational Ther Daily Note ---
OT Current Status-Daily Note Subjective Pt alert, lying in bed. Pt agrees to therapy. Pt on Vapotherm, limited distance pt can ambulate in room. Mental Status/Objective Patient Orientation: Person, Place, Time, Situation Therapy Code Descriptions/Definitions Functional [place] Measure: 0=Not Assessed/NA 4=Minimal Assistance 1=Total Assistance 5=Supervision or Setup 2=Maximal Assistance 6=Modified [place] 3=Moderate Assistance 7=Complete [place] Attachments: [place] Catheter, Oxygen (vapotherm), Telemetry ADL-Treatment Pt ambulated to bathroom, independently. Sitting at sink, to conserve energy, pt completes grooming (mod I). Pt takes increased time to complete tasks due to decreased activity tolerance. Call light was given to pt to alert nrsg when finished with grooming. Reported to nrsg that pt was in bathroom with Vapotherm on finishing grooming. Nrsg was going into room to give meds. After therapy, pt sitting at sink with call light and Vapotherm on. Family present in room. all needs met in room. Grooming (FIM): 6 OT Short Term Goals Short Term Goals Transfers (B,C,W/C) (FIM): 6 1=Demonstrate adherence to instructed precautions during ADL tasks. 2=Patient will verbalize/demonstrate understanding of assistive devices/modifications for ADL. 3=Patient will improve strength/tolerance for activity to enable patient to perform ADL's. OT Log [place]er Goals [facility] Goals Time Frame: Jun 09, 2019 Bathing(FIM): 6 Upper Body Dressing(FIM): 6 Lower Body Dressing(FIM): 6 Toileting(FIM): 6 Toilet/Commode Transfer(FIM): 6 Additional Goals: 1-Demonstrate ADL Tasks, 2-Verbalize Understanding, 3- ImproveStrength/Francesca 1=Demonstrate adherence to instructed precautions during ADL tasks. 2=Patient will verbalize/demonstrate understanding of assistive devices/modifications for ADL. 3=Patient will improve strength/tolerance for activity to enable patient to perform ADL's. OT Education/Plan Problem List/Assessment Assessment: Decreased Activ Tolerance Pt demonstrates decreased activity tolerance, mobility, and ADL functioning. Pt to benefit from skilled OT intervention for ADL training, transfers, strengthening, and home safety education to increase level of independence and allow safe discharge. Discharge Recommendations Plan/Recommendations: Continue POC Treatment Plan/Plan of Care Patient would benefit from OT for education, treatment and training to promote independence in ADL's, mobility, safety and/or upper extremity function for ADL's. Plan of Care: ADL Retraining, Functional Mobility, UE Funct Exercise/Act Treatment Duration: Jun 09, 2019 Frequency: 5 times per week Estimated Hrs Per Day: .25 hour per day Rehab Potential: Fair Time/GCodes Start Time: 11:32 Stop Time: 12:00 Total Time Billed (hr/min): 28 Billed Treatment Time 1 visit-ADL 2 (28 min) SUNIL DAMON Jun 04, 2019 11:38
[2019-06-04 12:00] VITALS: BP 129/69
[2019-06-04 16:12] VITALS: BP 147/76
[2019-06-04] MEDS: ENOXAPARIN 40 MG/0.4 ML (LOVENOX) SYR SC SCH (17:21)
[2019-06-04 19:33] VITALS: BP 164/94
--- NOTE | 2019-06-04 21:23 | Cardiology Progress Note ---
Cardiology SOAP Progress Note Subjective: Still requiring high flow oxygen. Objective: I&O/Vital Signs 06/04/19 06/04/19 06/04/19 06/04/19 11:40 12:00 13:00 14:53 Temp 99.3 Pulse 75 77 Resp 20 B/P (MAP) 129/69 (89) Pulse Ox 91 93 93 O2 Delivery Vapotherm High Flow N/C Vapotherm O2 Flow Rate 20.00 15.00 20.00 FiO2 70 70 06/04/19 06/04/19 06/04/19 16:12 19:00 19:33 Temp 97.4 96.2 Pulse 73 72 73 Resp 22 22 B/P (MAP) 147/76 (99) 164/94 (117) Pulse Ox 93 93 O2 Delivery Vapotherm Vapotherm O2 Flow Rate 60.00 60.00 20.00 20.00 06/04/19 00:00 Intake Total 1060 ml Output Total 1650 ml Balance -590 ml Weight (Pounds): 23 Weight (Ounces): 8.2 Weight (Calculated Kilograms): 10.226019 Constitutional: appears stated age, AAO x 3; No apparent distress; well- developed, well-nourished Respiratory: accessory muscle use, respiratory distress; No chest tender, No chest expansion is symmetric; chest is bilaterally symmetric; No lungs clear to percussion, No crackles, No rhonchi, No rales, No stridor; wheezing; No pleural rub, No other Cardiovascular: regular rate-rhythm; No irregularly irregular, No extra beats, No parasternal heave is noted, No JVD, No edema, No bradycardia, No tachycardia, No point of maximal impulse, No cardiac thrills are palpable; S1 and S2; No gallop/S3, No gallop/S4, No diastolic murmur, No systolic murmur, No friction rub, No click, No other Gastrointestional: No tender, No soft, No round, No distended, No pulsatile mass, No organomegaly, No guarding, No rebound, No tenderness, No hernia, No mass, No audible bowel sounds, No abnormal bowel sounds, No abdominal bruits, No spleenomegaly, No other Extremities: No normal range of motion, No non-tender, No normal inspection, No pedal edema, No calf tenderness, No normal capillary refill, No pelvis stable, No calf tenderness, No inflammation, No pedal edema, No slow capillary refill, No swelling, No other, No abrasion, No clubbing, No cyanosis, No ecchymosis, No laceration, No no lower extremity edema bilateral, No significant edema, No tenderness; wound (right great toe) Neurologic/Psychiatric: no motor/sensory deficits, alert, normal mood/affect, oriented x 3, power is 5/5 both on sides Skin: No rash, No ulcerations Results/Procedures: Labs Laboratory Tests 06/04/19 04:45: Sodium Level 140, Potassium Level 4.8, Chloride Level 105, Carbon Dioxide Level 22, Anion Gap 13, Blood Urea Nitrogen 40H, Creatinine 2.33H, Estimat Glomerular Filtration Rate 29, BUN/Creatinine Ratio 17, Glucose Level 135H, Calcium Level 9.1, Magnesium Level 2.1 06/04/19 05:10: White Blood Count 15.5H, Red Blood Count 2.95L, Hemoglobin 11.0L, Hematocrit 33L , Mean Corpuscular Volume 113H, Mean Corpuscular Hemoglobin 37H, Mean Corpuscular Hemoglobin Concent 33, Red Cell Distribution Width 16.0H, Platelet Count 354, Mean Platelet Volume 10.3, Neutrophils (%) (Auto) 87H, Lymphocytes (%) (Auto) 7L, Monocytes (%) (Auto) 6, Eosinophils (%) (Auto) 0, Basophils (%) (Auto) 0, Neutrophils # (Auto) 13.5H, Lymphocytes # (Auto) 1.1, Monocytes # (Auto) 0.9, Eosinophils # (Auto) 0.0, Basophils # (Auto) 0.0 06/04/19 09:55: Phosphorus Level 4.6 06/04/19 10:00: Stool Occult Blood Immunoassay NEGATIVE Microbiology 05/30/19 Blood Culture - Preliminary, Resulted No growth A/P: Assessment/Dx: Right great toe cellulitis, abscess, nonhealing ulcer, No PAD on peripheral angiogram done 05/28/2019, Hypertension, Active smoking, Shortness of breath. Plan: IV fluids, wound care and general surgery following. No PAD on peripheral angiogram done on 05/28/2019. shortness of breath. Wheezing. echocardiogram done 05/29/2019 which was normal LV function with mild to moderate diastolic dysfunction. PA pressure 59 mmHg. No significant valvular heart disease. On Vapotherm. defer to Dr Aleman. COPD, due to active smoking. Acute kidney injury, likely due to dehydration, sepsis, contrast injury. IV fluids. Improved with IV fluids. back to baseline creatinine. Smoking cessation was strongly recommended. Thank you for your consultation. Please call me if you have any questions. Salvatore Hansen MD, FACP, FACC, FSCAI, FHRS, CCDS Interventional Cardiology Cardiac Electrophysiology Vascular Medicine and Endovascular Interventions Isamar HANSEN MD Jun 04, 2019 21:23
[2019-06-05] VITALS: BP 159/83
[2019-06-05] MEDS: MEROPENEM 500 MG/SWFI 10 ML IV PUSH IV SCH ×8 (00:04→23:29)
[2019-06-05] MEDS: methylPREDNISolone 40 MG/ML (Solu-MEDROL) VIAL IV SCH ×5 (00:04→23:29)
[2019-06-05] MEDS: RT-ALBUTEROL/IPRATROPIUM 3 ML (DUONEB) VIAL INH SCH ×7 (01:03→22:52)
[2019-06-05 04:09] VITALS: BP 152/86
[2019-06-05] MEDS: LACTOBACILLUS ACIDOPHILUS (PROBIOTIC) CAPSULE PO SCH ×4 (06:14→20:11)
[2019-06-05] MEDS: KCL 10 MEQ TAB (MICRO K) PO SCH ×2 (06:14→11:40)
[2019-06-05 06:18] LABS: BASOPHILS % (AUTO) 0 % (0-10); EOSINOPHILS % (AUTO) 0 % (0-10); HEMATOCRIT 34 % (40-54); HEMOGLOBIN 11.3 G/DL (13.3-17.7); LYMPHOCYTES # (AUTO) 1.1 X 10^3 (1.0-4.0); LYMPHOCYTES % (AUTO) 7 % (12-44); MEAN CORPUSCULAR HEMOGLOBIN 37 PG (25-34); MEAN CORPUSCULAR HGB CONC 33 G/DL (32-36); MEAN CORPUSCULAR VOLUME 113 FL (80-99); MEAN PLATELET VOLUME 10.3 FL (7.4-10.4); MONOCYTES # (AUTO) 0.9 X 10^3 (0.0-1.0); MONOCYTES % (AUTO) 6 % (0-12); NEUTROPHILS # (AUTO) 12.6 X 10^3 (1.8-7.8); NEUTROPHILS % (AUTO) 86 % (42-75); PLATELET COUNT 380 10^3/uL (130-400); RED CELL DISTRIBUTION WIDTH 16.3 % (10.0-14.5); WHITE BLOOD COUNT 14.6 10^3/uL (4.3-11.0)
[2019-06-05 06:39] LABS: CREATININE SERUM 2.15 MG/DL (0.60-1.30); PHOSPHORUS 5.1 MG/DL (2.3-4.7); POTASSIUM 5.5 MMOL/L (3.6-5.0)
[2019-06-05] MEDS: DAKIN'S 1/4 STRENGTH (0.125%) 473 ML BTL TOP SCH ×2 (07:54→21:00)
[2019-06-05] MEDS: ASPIRIN E.C. 81 MG (ECOTRIN) TAB PO SCH (07:55)
[2019-06-05] MEDS: hydrALAZINE (APRESOLINE) 25 MG TAB PO SCH ×3 (07:55→20:11)
[2019-06-05] MEDS: amLODIPine 5 MG (NORVASC) TAB PO SCH (07:55)
[2019-06-05] MEDS: ATENOLOL 25 MG (TENORMIN) TAB PO SCH ×2 (07:55→20:12)
[2019-06-05] MEDS: CLOPIDOGREL 75 MG (PLAVIX) TABLET PO SCH (07:55)
[2019-06-05] MEDS: SENNA W/DOCUSATE (SENOKOT S) TABLET PO SCH ×2 (07:55→20:15)
[2019-06-05 08:00] VITALS: BP 161/92
--- NOTE | 2019-06-05 09:50 | Progress Note - Hospitalist ---
Subjective HPI/CC On Admission Date Seen by Provider: Jun 05, 2019 Time Seen by Provider: 09:30 CC: Right great toe ulcer with abscess and cellulitis HPI: This is a 58-year-old white male clinic patient of mine for the past 10 years who has a past medical history of alcoholism, hypertension, anxiety and smoking with chronic neuropathy who presented to my clinic after he called for an urgent appointment for a gout attack so labs were drawn prior to appointment and when he arrived I evaluated the right great toe showing a significant ulceration with pustular drainage along with cellulitis of his entire foot spreading up his leg. He was found to be in need of IV antibiotics and Dr. Christie was consulted along with Dr. Gutiérrez for wound care and possible toe abscess respectively. He will be placed on empiric antibiotics provided pain control and he will be on alcohol withdrawal protocol. Patient is currently doing much better did have some anxiety early this morning and wanted a cigarette and I did offer nicotine patch but he declined. Overall his right foot and toe is much improved and arterial ultrasound is pending at time of dictation and understands the diagnosis sepsis and the need to continue on IV antibiotics with close monitoring. Subjective/Events-last exam Creatinine 2.1 much improved BiPAP and transitioning to Vapotherm He wants to take a shower but the nurse and RT called me with concerns about him since he de-sats so quickly it wouldn't be a good idea so we will proved a good sudsy bed bath Inpatient rehab will be an option Ate some pizza last night Bowels are moving Overall much improved but slow recovery Review of Systems Pulmonary: Dyspnea Objective Exam Vital Signs Vital Signs Date Time Temp Pulse Resp B/P (MAP) Pulse Ox O2 Delivery O2 Flow Rate FiO2 06/05/19 18:41 93 Vapotherm 15.00 60 06/05/19 15:35 97.9 74 22 133/77 (95) Capillary Refill : Less Than 3 SecondsLess Than 3 Seconds General Appearance: No Apparent Distress, WD/WN, Anxious, Chronically ill HEENT: PERRL/EOMI, TMs Normal Neck: Full Range of Motion, Supple Respiratory: Chest Non Tender, Lungs Clear, Normal Breath Sounds, Accessory Muscle Use (when talking) Cardiovascular: Regular Rate, Rhythm Gastrointestinal: Normal Bowel Sounds, No Organomegaly, No Pulsatile Mass, Non Tender, Soft Back: Normal Inspection, No CVA Tenderness, No Vertebral Tenderness Extremity: Normal Capillary Refill, Pedal Edema Neurologic/Psychiatric: Alert, Oriented x3 Skin: Normal Color, Warm/Dry Lymphatic: No Adenopathy Results/Procedures Lab Laboratory Tests 06/05/19 06:10 06/05/19 15:24 Patient resulted labs reviewed. Assessment/Plan Assessment and Plan Assess & Plan/Chief Complaint Assessment: Acute respiratory insufficiency requiring Vapotherm and IV steroids and biPAP but improved today 06/04/19 Acute exacerbation of COPD Bilateral infiltrates multi-lobar placed on O2 and Meropenem and DC Zosyn Hypoxia ARF Volume overload acute s/p Sepsis Right great toe ulceration with abscess and severe cellulitis rising up into the leg now resolving Severe neuropathy Alcoholism with withdrawal now resolved Smoker with small vessel disease cessation currently Hypertension OOC due to withdrawal now resolved Anxiety PVD ruled out with normal angiogram Metabolic acidosis s/p bicarb drip now DC yesterday Plan: IV Lasix per Dr Aleman Empiric antibiotic of Meropenem for pneumonia multi-lobar Appreciate Dr. Christie and Dr. Gutiérrez and Dr Hansen and Dr Aleman Very complex case and may ultimately require ICU transfer if hypoxia worsens IV steroids If anything worsens he will be transferred to ICU for BiPAP and ventilation but appears less likely IRF? Diagnosis/Problems Diagnosis/Problems (1) Multifocal pneumonia Status: Acute (2) Sepsis Status: Resolved Qualifiers: Sepsis type: sepsis due to unspecified organism Qualified Codes: A41.9 - Sepsis, unspecified organism Resolution Date/Time: 05/29/19 @ 19:19 (3) Cellulitis of right lower leg Status: Acute (4) Abscess of toe, right Status: Acute (5) Hypertension Status: Chronic Qualifiers: Hypertension type: essential hypertension Qualified Codes: I10 - Essential (primary) hypertension (6) Anxiety Status: Chronic (7) Alcoholism Status: Chronic (8) Smoker Status: Chronic (9) Neuropathy Status: Chronic (10) Ulcer of great toe Status: Acute Qualifiers: Laterality: right Non-pressure ulcer stage: with fat layer exposed Qualified Codes: L97.512 - Non-pressure chronic ulcer of other part of right foot with fat layer exposed (11) Acute renal insufficiency Status: Acute (12) Alcohol withdrawal Status: Resolved Resolution Date/Time: 05/30/19 @ 20:57 (13) Volume overload Status: Acute Qualifiers: Hypervolemia type: unspecified Qualified Codes: E87.70 - Fluid overload, unspecified (14) Elevated brain natriuretic peptide (BNP) level Status: Acute (15) Renal failure Status: Acute Qualifiers: Renal failure chronicity: acute Acute renal failure type: unspecified Qualified Codes: N17.9 - Acute kidney failure, unspecified Clinical Quality Measures DVT/VTE Risk/Contraindication: Risk Factor Score Per Nursin RFS Level Per Nursing on Admit: 2=Moderate Contraindications-Mechi: Other *list below* Other: cellulitis HARDY CAMPBELL DO Jun 05, 2019 09:50
[2019-06-05] MEDS: LORazepam 1 MG (ATIVAN) TAB PO PRN ×2 (10:55→23:09)
--- NOTE | 2019-06-05 11:23 | Physical Therapy Daily Note ---
PT Daily Note-Current Subjective Patient voices frustration with fluid build up in his body. Agrees to PT. Pain Numeric Pain Scale: 0-No Pain Location: No Pain Reported Mental Status Patient Orientation: Normal For Age Attachments: Oxygen (vapotherm), Mesa Catheter Transfers Therapy Code Descriptions/Definitions Functional [place] Measure: 0=Not Assessed/NA 4=Minimal Assistance 1=Total Assistance 5=Supervision or Setup 2=Maximal Assistance 6=Modified [place] 3=Moderate Assistance 7=Complete [place] Therapy Quality Codes: 6 Independent with activity with or without an assistive device 5 Patient requires set up or clean up by helper. Patient completes activity by themselves 4 Supervision or touching assist (CGA). [place] provide cues , steadying assist 3 The helper provides less than half the effort to complete the activity 2 The helper provides more than half the effort to complete the activity 1 Dependent. The helper does all the effort to complete an activity 7 Patient refused to complete or attempt activity 9 The patient did not perform the activity before the current illness or injury 88 Not attempted due to Medical conditions or safety concerns Transfers (B, C, W/C) (FIM): 7 Scootin Sit to/from Stand: 7 Weight Bearing Right Lower Extremity: Right Full Weight Bearing Left Lower Extremity: Left Full Weight Bearing Exercises Seated Therapy Exercises: Ankle pumps, Long arc quads Seated Reps: 15 (2 sets) Standing: Marching Standing Reps: 25 (3 sets) Assessment Patient does have SOA with minimal activity, however, is independent with all gross motor skills. PT to consult with physician on POC. PT Short Term Goals Short Term Goals Time Frame: Jun 08, 2019 Transfers (B,C,W/C) (FIM): 6 Gait (FIM): 5 Gait Distance Comment: 300' Gait Level of Assist: 5 Gait Assistive Device: None PT Plan Treatment/Plan Treatment Plan: Continue Plan of Care Treatment Plan: Bed Mobility, Education, Functional Activity Francesca, Functional Strength, Gait, Safety, Therapeutic Exercise, Transfers Treatment Duration: Jun 08, 2019 Frequency: 6 times per week Estimated Hrs Per Day: .25 hour per day Patient and/or Family Agrees t: Yes Time/GCodes Time In: 1033 Time Out: 1047 Total Billed Treatment Time: 14 Total Billed Treatment 1 visit EX 14 min JENNA OWUSU PT Jun 05, 2019 11:23
--- NOTE | 2019-06-05 11:45 | Occupational Ther Daily Note ---
OT Current Status-Daily Note Subjective Pt alert, sitting EOB. Nrsg assisting pt with bath. Pt agrees to therapy. No c/o pain at this time. Mental Status/Objective Patient Orientation: Person, Place, Time, Situation Therapy Code Descriptions/Definitions Functional [place] Measure: 0=Not Assessed/NA 4=Minimal Assistance 1=Total Assistance 5=Supervision or Setup 2=Maximal Assistance 6=Modified [place] 3=Moderate Assistance 7=Complete [place] Attachments: Mesa Catheter, IV, Oxygen (Vaper) ADL-Treatment Nrsg assisted with bath and set up. Pt able to complete upper body bathing and dressing, assist only due to IV and O2 tubes. Pt able to bathe veronica area and buttocks in standing by self. Pt able to reach to ankles then assist needed. Pt able to don/doff pants by self. Pt able to don/doff R sock, assist with L sock. Pt then ambulated by self to bed and completed own bed mobility. Call light/phone in reach. All needs met in room. Bathing (FIM): 4 Bathing Location: L Arm, R Arm, L Upper Leg, R Upper Leg, Chest, Abdomen, Buttocks, Perineal Area Upper Body (FIM): 3 Lower Body Dressing (FIM): 3 OT Short Term Goals Short Term Goals Transfers (B,C,W/C) (FIM): 6 1=Demonstrate adherence to instructed precautions during ADL tasks. 2=Patient will verbalize/demonstrate understanding of assistive devices/modifica tions for ADL. 3=Patient will improve strength/tolerance for activity to enable patient to perform ADL's. OT [employer] Consultant Goals Halfway Goals Time Frame: Jun 09, 2019 Bathing(FIM): 6 Upper Body Dressing(FIM): 6 Lower Body Dressing(FIM): 6 Toileting(FIM): 6 Toilet/Commode Transfer(FIM): 6 Additional Goals: 1-Demonstrate ADL Tasks, 2-Verbalize Understanding, 3- ImproveStrength/Francesca 1=Demonstrate adherence to instructed precautions during ADL tasks. 2=Patient will verbalize/demonstrate understanding of assistive devices/modifications for ADL. 3=Patient will improve strength/tolerance for activity to enable patient to perform ADL's. OT Education/Plan Problem List/Assessment Assessment: Decreased Activ Tolerance Pt demonstrates decreased activity tolerance, mobility, and ADL functioning. Pt to benefit from skilled OT intervention for ADL training, transfers, strengthening, and home safety education to increase level of independence and allow safe discharge. Discharge Recommendations Plan/Recommendations: Continue POC Treatment Plan/Plan of Care Patient would benefit from OT for education, treatment and training to promote independence in ADL's, mobility, safety and/or upper extremity function for ADL's. Plan of Care: ADL Retraining, Functional Mobility, UE Funct Exercise/Act Treatment Duration: Jun 09, 2019 Frequency: 5 times per week Estimated Hrs Per Day: .25 hour per day Rehab Potential: Fair Time/GCodes Start Time: 11:18 Stop Time: 11:42 Total Time Billed (hr/min): 24 Billed Treatment Time 1 visit-ADL 2 (24 min) SUNIL DAMON Jun 05, 2019 11:45
[2019-06-05 12:00] VITALS: BP 154/90
--- NOTE | 2019-06-05 14:55 | Pulmonary Progress Note ---
Subjective Date Seen by a Provider: Jun 04, 2019 (Late note) Time Seen by a Provider: 14:54 Subjective/Events-last exam PT feels improved. Sepsis Event Evaluation Height, Weight, BMI Height: 6'2.00" Weight: 243lbs. 7.0oz. 110.334919lj; 28.1 BMI Method:Stated Exam Exam Vital Signs Date Time Temp Pulse Resp B/P (MAP) Pulse Ox O2 Delivery O2 Flow Rate FiO2 06/05/19 14:35 87 Vapotherm 10.00 60 06/05/19 13:02 71 06/05/19 12:00 98.0 75 22 154/90 (111) 92 Vapotherm 60.00 10.00 06/05/19 10:13 95 Vapotherm 20.00 60 06/05/19 08:00 Vapotherm 20.00 60 06/05/19 08:00 161/92 (115) Vapotherm 60.00 20.00 06/05/19 07:00 71 06/05/19 06:49 92 Vapotherm 20.00 60 06/05/19 04:09 98.3 72 20 152/86 (108) 94 NIV Bilevel 06/05/19 02:24 73 24 93 50.00 06/05/19 01:00 73 06/05/19 00:00 97.5 70 18 159/83 (108) 97 NIV Bilevel 06/04/19 23:58 71 17 91 50.00 06/04/19 20:00 Vapotherm 06/04/19 19:33 96.2 73 22 164/94 (117) 93 Vapotherm 60.00 20.00 06/04/19 19:00 72 06/04/19 16:12 97.4 73 22 147/76 (99) 93 Vapotherm 60.00 20.00 I & O 06/05/19 07:00 Intake Total 2350 ml Output Total 1800 ml Balance 550 ml Height & Weight Height: 6'2.00" Weight: 243lbs. 7.0oz. 110.828624ab; 28.1 BMI Method:Stated General Appearance: No Apparent Distress, WD/WN HEENT: PERRL/EOMI, Pharynx Normal Neck: Full Range of Motion, Non Tender, Supple Respiratory: Chest Non Tender, No Accessory Muscle Use, No Respiratory Distress, Crackles, Decreased Breath Sounds Cardiovascular: Regular Rate, Rhythm, No Murmur Capillary Refill: Less Than 3 Seconds Gastrointestinal: normal bowel sounds, non tender, soft Extremity: Normal Capillary Refill, Normal Inspection, No Pedal Edema Neurologic/Psychiatric: Alert, Oriented x3 Skin: Normal Color, Warm/Dry Results Lab Laboratory Tests 06/04/19 04:45 06/04/19 05:10 06/05/19 06:10 Assessment/Plan Assessment/Plan Sepsis secondary to cellulitis of Right lower leg - Merrem -Repeat leal cultures and MRSA nasal swab - pending Hypoxia r/o PNA -Continue Vapotherm -solumedrol 40 q 6 -SVNS Metabolic acidosis - resolved -D/C bicarb gtt Abscess of right toe -surgery is following -Wound care following worsening Renal insufficiency with metabolic acidosis -D/C NSAIDS and Spironolactone Hx of alcohol use and anxiety Neuropathy Tobacco use -Education CYNTHIA BUENROSTRO DO Jun 05, 2019 14:55
--- NOTE | 2019-06-05 14:56 | Pulmonary Progress Note ---
Sepsis Event Evaluation Height, Weight, BMI Height: 6'2.00" Weight: 243lbs. 7.0oz. 110.507449co; 28.1 BMI Method:Stated Exam Exam Vital Signs Date Time Temp Pulse Resp B/P (MAP) Pulse Ox O2 Delivery O2 Flow Rate FiO2 06/05/19 14:35 87 Vapotherm 10.00 60 06/05/19 13:02 71 06/05/19 12:00 98.0 75 22 154/90 (111) 92 Vapotherm 60.00 10.00 06/05/19 10:13 95 Vapotherm 20.00 60 06/05/19 08:00 Vapotherm 20.00 60 06/05/19 08:00 161/92 (115) Vapotherm 60.00 20.00 06/05/19 07:00 71 06/05/19 06:49 92 Vapotherm 20.00 60 06/05/19 04:09 98.3 72 20 152/86 (108) 94 NIV Bilevel 06/05/19 02:24 73 24 93 50.00 06/05/19 01:00 73 06/05/19 00:00 97.5 70 18 159/83 (108) 97 NIV Bilevel 06/04/19 23:58 71 17 91 50.00 06/04/19 20:00 Vapotherm 06/04/19 19:33 96.2 73 22 164/94 (117) 93 Vapotherm 60.00 20.00 06/04/19 19:00 72 06/04/19 16:12 97.4 73 22 147/76 (99) 93 Vapotherm 60.00 20.00 I & O 06/05/19 07:00 Intake Total 2350 ml Output Total 1800 ml Balance 550 ml Height & Weight Height: 6'2.00" Weight: 243lbs. 7.0oz. 110.641667hv; 28.1 BMI Method:Stated Results Lab Laboratory Tests 06/04/19 04:45 06/04/19 05:10 06/05/19 06:10 Assessment/Plan Assessment/Plan Sepsis secondary to cellulitis of Right lower leg - Merrem -Repeat leal cultures and MRSA nasal swab - pending Hypoxia r/o PNA -Continue Vapotherm -solumedrol 40 q 6 -SVNS Hyperkalemia/hyperphos -D/C KCL -repeat labs -Monitor Metabolic acidosis - resolved Abscess of right toe -surgery is following -Wound care following worsening Renal insufficiency with metabolic acidosis -D/C NSAIDS and Spironolactone Hx of alcohol use and anxiety Neuropathy Tobacco use -Education CYNTHIA BUENROSTRO DO Jun 05, 2019 14:56
[2019-06-05 15:35] VITALS: BP 133/77
[2019-06-05 15:46] LABS: CALCIUM 8.9 MG/DL (8.5-10.1); CREATININE SERUM 2.08 MG/DL (0.60-1.30); PHOSPHORUS 4.2 MG/DL (2.3-4.7); POTASSIUM 5.5 MMOL/L (3.6-5.0)
[2019-06-05] MEDS ORDERED: FUROSEMIDE 40 MG/4 ML INJ (LASIX) IVP NR (16:15)
[2019-06-05] MEDS: ENOXAPARIN 40 MG/0.4 ML (LOVENOX) SYR SC SCH (16:47)
[2019-06-05 20:12] VITALS: BP 117/67
--- NOTE | 2019-06-05 20:39 | Cardiology Progress Note ---
Cardiology SOAP Progress Note Subjective: shortness of breath Objective: I&O/Vital Signs 06/05/19 06/05/19 06/05/19 06/05/19 10:13 12:00 13:02 14:35 Temp 98.0 Pulse 75 71 Resp 22 B/P (MAP) 154/90 (111) Pulse Ox 95 92 87 O2 Delivery Vapotherm Vapotherm Vapotherm O2 Flow Rate 20.00 60.00 10.00 10.00 FiO2 60 60 06/05/19 06/05/19 06/05/19 15:35 18:41 20:12 Temp 97.9 98.0 Pulse 74 82 Resp 22 22 B/P (MAP) 133/77 (95) 117/67 (84) Pulse Ox 92 93 95 O2 Delivery Vapotherm Vapotherm Vapotherm O2 Flow Rate 60.00 15.00 60.00 15.00 15.00 FiO2 60 06/05/19 00:00 Intake Total 1530 ml Output Total 1200 ml Balance 330 ml Weight (Pounds): 243 Weight (Ounces): 7.0 Weight (Calculated Kilograms): 110.739252 Constitutional: appears stated age, AAO x 3; No apparent distress; well-develop ed, well-nourished Respiratory: accessory muscle use, respiratory distress; No chest tender, No chest expansion is symmetric; chest is bilaterally symmetric; No lungs clear to percussion, No crackles, No rhonchi, No rales, No stridor; wheezing; No pleural rub, No other Cardiovascular: regular rate-rhythm; No irregularly irregular, No extra beats, No parasternal heave is noted, No JVD, No edema, No bradycardia, No tachycardia, No point of maximal impulse, No cardiac thrills are palpable; S1 and S2; No gallop/S3, No gallop/S4, No diastolic murmur, No systolic murmur, No friction rub, No click, No other Gastrointestional: No tender, No soft, No round, No distended, No pulsatile mass, No organomegaly, No guarding, No rebound, No tenderness, No hernia, No mass, No audible bowel sounds, No abnormal bowel sounds, No abdominal bruits, No spleenomegaly, No other Extremities: No normal range of motion, No non-tender, No normal inspection, No pedal edema, No calf tenderness, No normal capillary refill, No pelvis stable, No calf tenderness, No inflammation, No pedal edema, No slow capillary refill, No swelling, No other, No abrasion, No clubbing, No cyanosis, No ecchymosis, No laceration, No no lower extremity edema bilateral, No significant edema, No tenderness; wound (right great toe) Neurologic/Psychiatric: no motor/sensory deficits, alert, normal mood/affect, oriented x 3, power is 5/5 both on sides Skin: No rash, No ulcerations Results/Procedures: Labs Laboratory Tests 06/05/19 06:10: White Blood Count 14.6H, Red Blood Count 3.04L, Hemoglobin 11.3L, Hematocrit 34L , Mean Corpuscular Volume 113H, Mean Corpuscular Hemoglobin 37H, Mean Corpuscular Hemoglobin Concent 33, Red Cell Distribution Width 16.3H, Platelet Count 380, Mean Platelet Volume 10.3, Neutrophils (%) (Auto) 86H, Lymphocytes (%) (Auto) 7L, Monocytes (%) (Auto) 6, Eosinophils (%) (Auto) 0, Basophils (%) (Auto) 0, Neutrophils # (Auto) 12.6H, Lymphocytes # (Auto) 1.1, Monocytes # (Auto) 0.9, Eosinophils # (Auto) 0.0, Basophils # (Auto) 0.0, Sodium Level 139, Potassium Level 5.5H, Chloride Level 106, Carbon Dioxide Level 19L, Anion Gap 14, Blood Urea Nitrogen 50H, Creatinine 2.15H, Estimat Glomerular Filtration Rate 32, BUN/Creatinine Ratio 23, Glucose Level 128H, Calcium Level 9.0, Phosphorus Level 5.1H, Magnesium Level 2.0 06/05/19 15:24: Sodium Level 140, Potassium Level 5.5H, Chloride Level 106, Carbon Dioxide Level 21, Anion Gap 13, Blood Urea Nitrogen 53H, Creatinine 2.08H, Estimat Glomerular Filtration Rate 33, BUN/Creatinine Ratio 25, Glucose Level 150H, Calcium Level 8.9, Phosphorus Level 4.2, Magnesium Level 2.0, B-Type Natriuretic Peptide 1078.9H Microbiology 05/30/19 Blood Culture - Preliminary, Resulted No growth 06/04/19 MRSA Screen - Final, Complete MRSA not isolated A/P: Assessment/Dx: Right great toe cellulitis, abscess, nonhealing ulcer, No PAD on peripheral angiogram done 05/28/2019, Hypertension, Active smoking, Shortness of breath. Plan: IV fluids, wound care and general surgery following. No PAD on peripheral angiogram done on 05/28/2019. shortness of breath. Wheezing. echocardiogram done 05/29/2019 which was normal LV function with mild to moderate diastolic dysfunction. PA pressure 59 mmHg. No significant valvular heart disease. On Vapotherm. defer to Dr Aleman. elevated BNP - lasix 40 will be given today. COPD, due to active smoking. Acute kidney injury, likely due to dehydration, sepsis, contrast injury. IV fluids. Improved with IV fluids. back to baseline creatinine. Smoking cessation was strongly recommended. Thank you for your consultation. Please call me if you have any questions. Salvatore Hansen MD, FACP, FACC, FSCAI, FHRS, CCDS Interventional Cardiology Cardiac Electrophysiology Vascular Medicine and Endovascular Interventions Isamar HANSEN MD Jun 05, 2019 20:39
[2019-06-06 00:04] VITALS: BP 149/91
[2019-06-06] MEDS: RT-ALBUTEROL/IPRATROPIUM 3 ML (DUONEB) VIAL INH SCH ×6 (02:52→20:21)
[2019-06-06 04:00] VITALS: BP 140/78
[2019-06-06 05:21] LABS: BASOPHILS % (AUTO) 0 % (0-10); EOSINOPHILS % (AUTO) 0 % (0-10); HEMATOCRIT 32 % (40-54); HEMOGLOBIN 10.5 G/DL (13.3-17.7); LYMPHOCYTES # (AUTO) 0.9 X 10^3 (1.0-4.0); LYMPHOCYTES % (AUTO) 7 % (12-44); MEAN CORPUSCULAR HEMOGLOBIN 37 PG (25-34); MEAN CORPUSCULAR HGB CONC 33 G/DL (32-36); MEAN CORPUSCULAR VOLUME 112 FL (80-99); MEAN PLATELET VOLUME 10.5 FL (7.4-10.4); MONOCYTES # (AUTO) 0.7 X 10^3 (0.0-1.0); MONOCYTES % (AUTO) 6 % (0-12); NEUTROPHILS # (AUTO) 10.4 X 10^3 (1.8-7.8); NEUTROPHILS % (AUTO) 87 % (42-75); PLATELET COUNT 309 10^3/uL (130-400); RED CELL DISTRIBUTION WIDTH 15.8 % (10.0-14.5)
[2019-06-06] MEDS: methylPREDNISolone 40 MG/ML (Solu-MEDROL) VIAL IV SCH ×4 (05:36→23:36)
[2019-06-06] MEDS: LACTOBACILLUS ACIDOPHILUS (PROBIOTIC) CAPSULE PO SCH ×4 (05:37→21:23)
[2019-06-06 05:45] LABS: ALBUMIN 3.1 GM/DL (3.2-4.5); BILIRUBIN,TOTAL 0.3 MG/DL (0.1-1.0); CALCIUM 8.7 MG/DL (8.5-10.1); CREATININE SERUM 2.04 MG/DL (0.60-1.30); MAGNESIUM 1.9 MG/DL (1.8-2.4); PHOSPHORUS 5.1 MG/DL (2.3-4.7); POTASSIUM 5.4 MMOL/L (3.6-5.0); TOTAL PROTEIN 5.9 GM/DL (6.4-8.2)
[2019-06-06 05:53] LABS: LYMPHOCYTES % (MANUAL) 11 %; MONOCYTES % (MANUAL) 3 %; NEUTROPHILS % (MANUAL) 86 %
[2019-06-06 08:00] VITALS: BP 143/91
[2019-06-06] MEDS: ATENOLOL 25 MG (TENORMIN) TAB PO SCH ×2 (10:24→21:23)
[2019-06-06] MEDS: amLODIPine 5 MG (NORVASC) TAB PO SCH (10:24)
[2019-06-06] MEDS: ASPIRIN E.C. 81 MG (ECOTRIN) TAB PO SCH (10:24)
[2019-06-06] MEDS: DAKIN'S 1/4 STRENGTH (0.125%) 473 ML BTL TOP SCH ×2 (10:24→21:24)
[2019-06-06] MEDS: hydrALAZINE (APRESOLINE) 25 MG TAB PO SCH ×3 (10:24→21:23)
[2019-06-06] MEDS: CLOPIDOGREL 75 MG (PLAVIX) TABLET PO SCH (10:25)
[2019-06-06] MEDS: SENNA W/DOCUSATE (SENOKOT S) TABLET PO SCH ×2 (10:25→22:18)
--- NOTE | 2019-06-06 10:31 | Progress Note - Hospitalist ---
Subjective HPI/CC On Admission Date Seen by Provider: Jun 06, 2019 Time Seen by Provider: 10:00 CC: Right great toe ulcer with abscess and cellulitis HPI: This is a 58-year-old white male clinic patient of mine for the past 10 years who has a past medical history of alcoholism, hypertension, anxiety and smoking with chronic neuropathy who presented to my clinic after he called for an urgent appointment for a gout attack so labs were drawn prior to appointment and when he arrived I evaluated the right great toe showing a significant ulceration with pustular drainage along with cellulitis of his entire foot spreading up his leg. He was found to be in need of IV antibiotics and Dr. Christie was consulted along with Dr. Gutiérrez for wound care and possible toe abscess respectively. He will be placed on empiric antibiotics provided pain control and he will be on alcohol withdrawal protocol. Patient is currently doing much better did have some anxiety early this morning and wanted a cigarette and I did offer nicotine patch but he declined. Overall his right foot and toe is much improved and arterial ultrasound is pending at time of dictation and understands the diagnosis sepsis and the need to continue on IV antibiotics with close monitoring. Subjective/Events-last exam Pt doing much better Creatinine remains at 2.04 Out of bed but does desats at times Overall ready to get his day started Inpatient rehab still awaiting him to stabilize off BiPAP and vapotherm in order to continue his recovery Complex case that started out with right great toe ulcer with cellulitis and abscess formation that turned into multilobar pneumonia with volume overload sepsis and significant decompensation of lung status requiring cardiology and pulmonology management with Lasix, IV steroids, Nebulizer treatments, vapotherm, and BiPAP Review of Systems General: Fatigue Pulmonary: Dyspnea Objective Exam Vital Signs Vital Signs Date Time Temp Pulse Resp B/P (MAP) Pulse Ox O2 Delivery O2 Flow Rate FiO2 06/06/19 20:21 96 Vapotherm 15.00 50 06/06/19 19:48 97.5 72 20 134/67 (89) Capillary Refill : Less Than 3 SecondsLess Than 3 Seconds General Appearance: No Apparent Distress, WD/WN, Anxious, Chronically ill HEENT: PERRL/EOMI, TMs Normal Neck: Full Range of Motion, Supple Respiratory: Chest Non Tender, Lungs Clear, Normal Breath Sounds, Accessory Muscle Use (when talking) Cardiovascular: Regular Rate, Rhythm Gastrointestinal: Normal Bowel Sounds, No Organomegaly, No Pulsatile Mass, Non Tender, Soft Back: Normal Inspection, No CVA Tenderness, No Vertebral Tenderness Extremity: Normal Capillary Refill, Pedal Edema Neurologic/Psychiatric: Alert, Oriented x3 Skin: Normal Color, Warm/Dry Lymphatic: No Adenopathy Results/Procedures Lab Laboratory Tests 06/06/19 04:55 Patient resulted labs reviewed. Assessment/Plan Assessment and Plan Assess & Plan/Chief Complaint Assessment: Acute respiratory insufficiency requiring Vapotherm and IV steroids and biPAP but improved today 06/04/19 Acute exacerbation of COPD Bilateral infiltrates multi-lobar placed on O2 and Meropenem and DC Zosyn Hypoxia ARF Volume overload acute s/p Sepsis Right great toe ulceration with abscess and severe cellulitis rising up into the leg now resolving Severe neuropathy Alcoholism with withdrawal now resolved Smoker with small vessel disease cessation currently Hypertension OOC due to withdrawal now resolved Anxiety PVD ruled out with normal angiogram Metabolic acidosis s/p bicarb drip now DC yesterday Plan: IV Lasix per Dr Aleman Empiric antibiotic of Meropenem for pneumonia multi-lobar Appreciate Dr. Christie and Dr. Gutiérrez and Dr Hansen and Dr Aleman Very complex case and may ultimately require ICU transfer if hypoxia worsens IV steroids If anything worsens he will be transferred to ICU for BiPAP and ventilation but appears less likely IRF? Diagnosis/Problems Diagnosis/Problems (1) Multifocal pneumonia Status: Acute (2) Sepsis Status: Resolved Qualifiers: Sepsis type: sepsis due to unspecified organism Qualified Codes: A41.9 - Sepsis, unspecified organism Resolution Date/Time: 05/29/19 @ 19:19 (3) Cellulitis of right lower leg Status: Acute (4) Abscess of toe, right Status: Acute (5) Hypertension Status: Chronic Qualifiers: Hypertension type: essential hypertension Qualified Codes: I10 - Essential (primary) hypertension (6) Anxiety Status: Chronic (7) Alcoholism Status: Chronic (8) Smoker Status: Chronic (9) Neuropathy Status: Chronic (10) Ulcer of great toe Status: Acute Qualifiers: Laterality: right Non-pressure ulcer stage: with fat layer exposed Qualified Codes: L97.512 - Non-pressure chronic ulcer of other part of right foot with fat layer exposed (11) Acute renal insufficiency Status: Acute (12) Alcohol withdrawal Status: Resolved Resolution Date/Time: 05/30/19 @ 20:57 (13) Volume overload Status: Acute Qualifiers: Hypervolemia type: unspecified Qualified Codes: E87.70 - Fluid overload, unspecified (14) Elevated brain natriuretic peptide (BNP) level Status: Acute (15) Renal failure Status: Acute Qualifiers: Renal failure chronicity: acute Acute renal failure type: unspecified Qualified Codes: N17.9 - Acute kidney failure, unspecified Clinical Quality Measures DVT/VTE Risk/Contraindication: Risk Factor Score Per Nursin RFS Level Per Nursing on Admit: 2=Moderate Contraindications-Mechi: Other *list below* Other: cellulitis HARDY CAMPBELL DO Jun 06, 2019 10:30
--- NOTE | 2019-06-06 11:16 | Physical Therapy Daily Note ---
PT Daily Note-Current Subjective Pt. in bed upon arrival. States he is so frustrated by being on vapo therm, stating it is so much moisture in his nose to deal with Mental Status Patient Orientation: Normal For Age Attachments: Oxygen (vapotherm), [place] Catheter Transfers Therapy Code Descriptions/Definitions Functional [place] Measure: 0=Not Assessed/NA 4=Minimal Assistance 1=Total Assistance 5=Supervision or Setup 2=Maximal Assistance 6=Modified [place] 3=Moderate Assistance 7=Complete [place] Therapy Quality Codes: 6 Independent with activity with or without an assistive device 5 Patient requires set up or clean up by helper. Patient completes activity by themselves 4 Supervision or touching assist (CGA). [place] provide cues , steadying assist 3 The helper provides less than half the effort to complete the activity 2 The helper provides more than half the effort to complete the activity 1 Dependent. The helper does all the effort to complete an activity 7 Patient refused to complete or attempt activity 9 The patient did not perform the activity before the current illness or injury 88 Not attempted due to Medical conditions or safety concerns all bed mob and TRFs mod I Weight Bearing Right Lower Extremity: Right Full Weight Bearing Left Lower Extremity: Left Full Weight Bearing Gait Training Gait Assistive Device: None 5-6 f t x 3 no AD, no LOB however pt. has SOB and rests Exercises Seated Therapy Exercises: Ankle pumps, Sit to stand, Long arc quads, Hip flexion, Hip abd/add Seated Reps: 15 Assessment Current Status: Good Progress functional strength appears good, SOB limits activity level tolerance PT Short Term Goals Short Term Goals Time Frame: Jun 08, 2019 Transfers (B,C,W/C) (FIM): 6 Gait (FIM): 5 Gait Distance Comment: 300' Gait Level of Assist: 5 Gait Assistive Device: None PT Plan Treatment/Plan Treatment Plan: Continue Plan of Care Treatment Plan: Bed Mobility, Education, Functional Activity Francesca, Functional Strength, Gait, Safety, Therapeutic Exercise, Transfers Treatment Duration: Jun 08, 2019 Frequency: 6 times per week Estimated Hrs Per Day: .25 hour per day Patient and/or Family Agrees t: Yes Safety Risks/Education Patient Education: Gait Training, Transfer Techniques, Correct Positioning, Disease Process, Safety Issues Teaching Recipient: Patient Teaching Methods: Demonstration, Discussion Response to Teaching: Verbalize Understanding, Return Demonstration, Reinforcement Needed Time/GCodes Time In: 1100 Time Out: 1120 Total Billed Treatment Time: 20 Total Billed Treatment 1,FA20m G Codes Necessary: KYMBERLY Valentino PULMONARY DISEASE SPECIALIST Jun 06, 2019 11:16
[2019-06-06 12:00] VITALS: BP 131/75
--- NOTE | 2019-06-06 14:01 | Occupational Ther Daily Note ---
OT Current Status-Daily Note Subjective Pt alert, sitting EOB. Pt agrees to therapy. No c/o pain. States that he is ready to get rid of the Vapotherm. Mental Status/Objective Therapy Code Descriptions/Definitions Functional [place] Measure: 0=Not Assessed/NA 4=Minimal Assistance 1=Total Assistance 5=Supervision or Setup 2=Maximal Assistance 6=Modified [place] 3=Moderate Assistance 7=Complete [place] Other Treatment Pt educated on and given medium resistance theraband for UE exercises to complete in room. Skilled instruction for correct technique and exercises were required for efficient use of theraband. Pt able to complete 3 exercises, 1 set 10 reps. Pt tolerated though stated that he didn't realize how hard using the t heraband would be. After therapy, pt sitting EOB call light/phone in reach. Family present in room. All needs met in room. OT Short Term Goals Short Term Goals Transfers (B,C,W/C) (FIM): 6 1=Demonstrate adherence to instructed precautions during ADL tasks. 2=Patient will verbalize/demonstrate understanding of assistive devices/modifi cations for ADL. 3=Patient will improve strength/tolerance for activity to enable patient to perform ADL's. OT Fdc Goals Fdc Goals Time Frame: Jun 09, 2019 Bathing(FIM): 6 Upper Body Dressing(FIM): 6 Lower Body Dressing(FIM): 6 Toileting(FIM): 6 Toilet/Commode Transfer(FIM): 6 Additional Goals: 1-Demonstrate ADL Tasks, 2-Verbalize Understanding, 3- ImproveStrength/Francesca 1=Demonstrate adherence to instructed precautions during ADL tasks. 2=Patient will verbalize/demonstrate understanding of assistive devices/modifications for ADL. 3=Patient will improve strength/tolerance for activity to enable patient to perform ADL's. OT Education/Plan Problem List/Assessment Assessment: Decreased Activ Tolerance, Decreased UE Strength Pt demonstrates decreased activity tolerance, mobility, and ADL functioning. Pt to benefit from skilled OT intervention for ADL training, transfers, strengthening, and home safety education to increase level of independence and allow safe discharge. Discharge Recommendations Plan/Recommendations: Continue POC Treatment Plan/Plan of Care Patient would benefit from OT for education, treatment and training to promote independence in ADL's, mobility, safety and/or upper extremity function for ADL's. Plan of Care: ADL Retraining, Functional Mobility, UE Funct Exercise/Act Treatment Duration: Jun 09, 2019 Frequency: 5 times per week Estimated Hrs Per Day: .25 hour per day Rehab Potential: Fair Time/GCodes Start Time: 13:30 Stop Time: 13:42 Total Time Billed (hr/min): 12 Billed Treatment Time 1 visit-EX 1 (12 min) SUNIL DAMON Jun 06, 2019 14:01
[2019-06-06] MEDS ORDERED: SODIUM BICARB 8.4% 50 MEQ/50 ML VIAL IV NR (14:30)
[2019-06-06] MEDS ORDERED: FUROSEMIDE 40 MG/4 ML INJ (LASIX) IVP NR (14:30)
--- NOTE | 2019-06-06 14:30 | Pulmonary Progress Note ---
Sepsis Event Evaluation Height, Weight, BMI Height: 6'2.00" Weight: 230lbs. 7.0oz. 104.752060fj; 28.1 BMI Method:Stated Exam Exam Vital Signs Date Time Temp Pulse Resp B/P (MAP) Pulse Ox O2 Delivery O2 Flow Rate FiO2 06/06/19 12:37 77 06/06/19 10:35 91 Vapotherm 15.00 60 06/06/19 08:00 Vapotherm 15.00 60 06/06/19 08:00 97.8 70 22 143/91 (108) 93 NIV Bilevel 50.00 50.00 06/06/19 07:19 66 15 94 50.00 06/06/19 07:00 65 06/06/19 04:00 98.2 74 20 140/78 (98) 99 NIV Bilevel 50.00 50.00 06/06/19 02:52 71 15 97 50.00 06/06/19 01:00 63 06/06/19 00:04 97.6 69 18 149/91 (110) 98 NIV Bilevel 06/05/19 22:52 79 26 97 50.00 06/05/19 20:12 98.0 82 22 117/67 (84) 95 Vapotherm 60.00 15.00 06/05/19 20:00 Vapotherm 15.00 60 06/05/19 19:00 76 06/05/19 18:41 93 Vapotherm 15.00 60 06/05/19 15:35 97.9 74 22 133/77 (95) 92 Vapotherm 60.00 15.00 06/05/19 14:35 87 Vapotherm 10.00 60 I & O 06/06/19 07:00 Intake Total 1140 ml Output Total 2775 ml Balance -1635 ml Height & Weight Height: 6'2.00" Weight: 230lbs. 7.0oz. 104.294117px; 28.1 BMI Method:Stated Results Lab Laboratory Tests 06/05/19 06:10 06/05/19 15:24 06/06/19 04:55 Assessment/Plan Assessment/Plan Sepsis secondary to cellulitis of Right lower leg - Merrem -Repeat leal cultures and MRSA nasal swab - pending Hypoxia r/o PNA -currently on BiPAP - switch back to reg NC -solumedrol 40 q 6 -SVNS Hyperkalemia/hyperphos -D/C KCL -repeat labs -repeat Lasix and bicarb -Monitor Metabolic acidosis - resolved Abscess of right toe -surgery is following -Wound care following worsening Renal insufficiency with metabolic acidosis -D/C NSAIDS and Spironolactone Hx of alcohol use and anxiety Neuropathy Tobacco use -Education CYNTHIA BUENROSTRO DO Jun 06, 2019 14:30
[2019-06-06 16:16] VITALS: BP 126/58
[2019-06-06] MEDS: ENOXAPARIN 40 MG/0.4 ML (LOVENOX) SYR SC SCH (17:26)
[2019-06-06 19:48] VITALS: BP 134/67
[2019-06-06] MEDS: LORazepam 1 MG (ATIVAN) TAB PO PRN (23:36)
--- NOTE | 2019-06-06 23:42 | Cardiology Progress Note ---
Cardiology SOAP Progress Note Subjective: Still short of breath however better than yesterday. Objective: I&O/Vital Signs 06/06/19 06/06/19 06/06/19 06/06/19 12:00 12:37 15:59 16:16 Temp 97.8 97.6 Pulse 78 77 78 Resp 22 22 B/P (MAP) 131/75 (93) 126/58 (80) Pulse Ox 92 94 95 O2 Delivery Vapotherm Vapotherm Vapotherm O2 Flow Rate 60.00 15.00 60.00 15.00 15.00 FiO2 60 06/06/19 06/06/19 06/06/19 19:00 19:48 20:21 Temp 97.5 Pulse 78 72 Resp 20 B/P (MAP) 134/67 (89) Pulse Ox 93 96 O2 Delivery Vapotherm Vapotherm O2 Flow Rate 50.00 15.00 15.00 FiO2 50 06/06/19 00:00 Intake Total 740 ml Output Total 2025 ml Balance -1285 ml Weight (Pounds): 230 Weight (Ounces): 7.0 Weight (Calculated Kilograms): 104.728693 Constitutional: appears stated age, AAO x 3; No apparent distress; well- developed, well-nourished Respiratory: accessory muscle use, respiratory distress; No chest tender, No chest expansion is symmetric; chest is bilaterally symmetric; No lungs clear to percussion, No crackles, No rhonchi, No rales, No stridor; wheezing; No pleural rub, No other Cardiovascular: regular rate-rhythm; No irregularly irregular, No extra beats, No parasternal heave is noted, No JVD, No edema, No bradycardia, No tachycardia, No point of maximal impulse, No cardiac thrills are palpable; S1 and S2; No gallop/S3, No gallop/S4, No diastolic murmur, No systolic murmur, No friction rub, No click, No other Gastrointestional: No tender, No soft, No round, No distended, No pulsatile m ass, No organomegaly, No guarding, No rebound, No tenderness, No hernia, No mass, No audible bowel sounds, No abnormal bowel sounds, No abdominal bruits, No spleenomegaly, No other Extremities: No normal range of motion, No non-tender, No normal inspection, No pedal edema, No calf tenderness, No normal capillary refill, No pelvis stable, No calf tenderness, No inflammation, No pedal edema, No slow capillary refill, No swelling, No other, No abrasion, No clubbing, No cyanosis, No ecchymosis, No laceration, No no lower extremity edema bilateral, No significant edema, No tenderness; wound (right great toe) Neurologic/Psychiatric: no motor/sensory deficits, alert, normal mood/affect, oriented x 3, power is 5/5 both on sides Skin: No rash, No ulcerations Results/Procedures: Labs Laboratory Tests 06/06/19 04:55: White Blood Count 12.0H, Red Blood Count 2.86L, Hemoglobin 10.5L, Hematocrit 32L , Mean Corpuscular Volume 112H, Mean Corpuscular Hemoglobin 37H, Mean Corpuscular Hemoglobin Concent 33, Red Cell Distribution Width 15.8H, Platelet Count 309, Mean Platelet Volume 10.5H, Neutrophils (%) (Auto) 87H, Lymphocytes (%) (Auto) 7L, Monocytes (%) (Auto) 6, Eosinophils (%) (Auto) 0, Basophils (%) (Auto) 0, Neutrophils # (Auto) 10.4H, Lymphocytes # (Auto) 0.9L, Monocytes # (Auto) 0.7, Eosinophils # (Auto) 0.0, Basophils # (Auto) 0.0, Neutrophils % (Manual) 86, Lymphocytes % (Manual) 11, Monocytes % (Manual) 3, Macrocytosis MODERATE, Sodium Level 141, Potassium Level 5.4H, Chloride Level 108H, Carbon Dioxide Level 21, Anion Gap 12, Blood Urea Nitrogen 59H, Creatinine 2.04H, Estimat Glomerular Filtration Rate 34, BUN/Creatinine Ratio 29, Glucose Level 132H, Calcium Level 8.7, Corrected Calcium 9.4, Phosphorus Level 5.1H, Magnesium Level 1.9, Total Bilirubin 0.3, Aspartate Amino Transf (AST/SGOT) 53H, Alanine A minotransferase (ALT/SGPT) 44, Alkaline Phosphatase 71, Total Protein 5.9L, Albumin 3.1L Microbiology 05/30/19 Blood Culture - Final, Complete No growth 06/04/19 MRSA Screen - Final, Complete MRSA not isolated A/P: Assessment/Dx: Right great toe cellulitis, abscess, nonhealing ulcer, No PAD on peripheral angiogram done 05/28/2019, Hypertension, Active smoking, Shortness of breath. Plan: IV fluids, wound care and general surgery following. No PAD on peripheral angiogram done on 05/28/2019. shortness of breath. Wheezing. echocardiogram done 05/29/2019 which was normal LV function with mild to moderate diastolic dysfunction. PA pressure 59 mmHg. No significant valvular heart disease. On Vapotherm. defer to Dr Aleman. elevated BNP - lasix 40 will be given yesterday. COPD, due to active smoking. Acute kidney injury, likely due to dehydration, sepsis, contrast injury. IV fluids. Improved with IV fluids. back to baseline creatinine. Smoking cessation was strongly recommended. Thank you for your consultation. Please call me if you have any questions. Salvatore Hansen MD, FACP, FACC, FSCAI, FHRS, CCDS Interventional Cardiology Cardiac Electrophysiology Vascular Medicine and Endovascular Interventions Isamar HANSEN MD Jun 06, 2019 23:41
[2019-06-07] VITALS: BP 139/77
[2019-06-07] MEDS: RT-ALBUTEROL/IPRATROPIUM 3 ML (DUONEB) VIAL INH SCH ×6 (02:03→23:00)
[2019-06-07 04:00] VITALS: BP 143/86
[2019-06-07] MEDS: LACTOBACILLUS ACIDOPHILUS (PROBIOTIC) CAPSULE PO SCH ×4 (06:02→21:15)
[2019-06-07] MEDS: methylPREDNISolone 40 MG/ML (Solu-MEDROL) VIAL IV SCH ×2 (06:02→18:25)
[2019-06-07 06:06] LABS: BASOPHILS % (AUTO) 0 % (0-10); EOSINOPHILS % (AUTO) 0 % (0-10); HEMATOCRIT 33 % (40-54); HEMOGLOBIN 10.9 G/DL (13.3-17.7); LYMPHOCYTES # (AUTO) 0.9 X 10^3 (1.0-4.0); LYMPHOCYTES % (AUTO) 6 % (12-44); MEAN CORPUSCULAR HEMOGLOBIN 36 PG (25-34); MEAN CORPUSCULAR HGB CONC 33 G/DL (32-36); MEAN CORPUSCULAR VOLUME 110 FL (80-99); MEAN PLATELET VOLUME 10.2 FL (7.4-10.4); MONOCYTES % (AUTO) 6 % (0-12); NEUTROPHILS # (AUTO) 13.4 X 10^3 (1.8-7.8); NEUTROPHILS % (AUTO) 88 % (42-75); PLATELET COUNT 329 10^3/uL (130-400); RED CELL DISTRIBUTION WIDTH 15.8 % (10.0-14.5); WHITE BLOOD COUNT 15.3 10^3/uL (4.3-11.0)
[2019-06-07 06:42] LABS: CALCIUM 8.8 MG/DL (8.5-10.1); CREATININE SERUM 1.9 MG/DL (0.60-1.30); MAGNESIUM 1.7 MG/DL (1.8-2.4); PHOSPHORUS 5.1 MG/DL (2.3-4.7); POTASSIUM 5.1 MMOL/L (3.6-5.0)
--- NOTE | 2019-06-07 07:00 | Diagnostic Imaging Report ---
INDICATION: Dyspnea. Semi-upright portable AP view of the chest is obtained with comparison made study of 06/04/2019 FINDINGS: There is mild cardiomegaly with continued pulmonary venous congestion and bilateral airspace disease. There does appear to be consolidation in right perihilar region with associated mild bilateral pleural effusions. IMPRESSION: Bilateral edema and/or pneumonitis with consolidation in the right perihilar region. Findings have not significantly changed. Dictated by: Dictated on workstation # [id number]
[2019-06-07 08:00] VITALS: BP 132/70
[2019-06-07] MEDS: MAGNESIUM 1 GM/100 ML IVPB 100 ML IV SCH ×3 (09:22→11:50)
[2019-06-07] MEDS: hydrALAZINE (APRESOLINE) 25 MG TAB PO SCH ×3 (09:23→21:15)
[2019-06-07] MEDS: CLOPIDOGREL 75 MG (PLAVIX) TABLET PO SCH (09:23)
[2019-06-07] MEDS: FUROSEMIDE 40 MG/4 ML INJ (LASIX) IVP SCH (09:23)
[2019-06-07] MEDS: amLODIPine 5 MG (NORVASC) TAB PO SCH (09:23)
[2019-06-07] MEDS: ASPIRIN E.C. 81 MG (ECOTRIN) TAB PO SCH (09:23)
[2019-06-07] MEDS: SENNA W/DOCUSATE (SENOKOT S) TABLET PO SCH ×2 (09:24→21:15)
[2019-06-07] MEDS: DAKIN'S 1/4 STRENGTH (0.125%) 473 ML BTL TOP SCH ×2 (09:24→21:16)
[2019-06-07] MEDS: ATENOLOL 25 MG (TENORMIN) TAB PO SCH ×2 (09:26→21:15)
--- NOTE | 2019-06-07 10:18 | Progress Note - Hospitalist ---
Subjective HPI/CC On Admission Date Seen by Provider: Jun 07, 2019 Time Seen by Provider: 10:00 CC: Right great toe ulcer with abscess and cellulitis HPI: This is a 58-year-old white male clinic patient of mine for the past 10 years who has a past medical history of alcoholism, hypertension, anxiety and smoking with chronic neuropathy who presented to my clinic after he called for an urgent appointment for a gout attack so labs were drawn prior to appointment and when he arrived I evaluated the right great toe showing a significant ulceration with pustular drainage along with cellulitis of his entire foot spreading up his leg. He was found to be in need of IV antibiotics and Dr. Christie was consulted along with Dr. Gutiérrez for wound care and possible toe abscess respectively. He will be placed on empiric antibiotics provided pain control and he will be on alcohol withdrawal protocol. Patient is currently doing much better did have some anxiety early this morning and wanted a cigarette and I did offer nicotine patch but he declined. Overall his right foot and toe is much improved and arterial ultrasound is pending at time of dictation and understands the diagnosis sepsis and the need to continue on IV antibiotics with close monitoring. Subjective/Events-last exam Regular diet will be changed from carb restricted Creatinine 1.9 Magnesium of 3 g will be given today IV Lasix's will be maintained Vapotherm weaning now Still on Vapotherm so still cant ambulate Bowels are moving Denies any pain This is a two week juana of admission status Pt overall has done very well but very slow recovery Elim? Review of Systems General: Fatigue Pulmonary: Dyspnea Objective Exam Vital Signs Vital Signs Date Time Temp Pulse Resp B/P (MAP) Pulse Ox O2 Delivery O2 Flow Rate FiO2 06/07/19 20:00 97.8 68 18 104/66 (79) 95 Vapotherm 40.00 10.00 06/07/19 18:43 40 Capillary Refill : Less Than 3 SecondsLess Than 3 Seconds General Appearance: No Apparent Distress, WD/WN, Anxious, Chronically ill HEENT: PERRL/EOMI, TMs Normal Neck: Full Range of Motion, Supple Respiratory: Chest Non Tender, Lungs Clear, Normal Breath Sounds, Accessory Muscle Use (when talking) Cardiovascular: Regular Rate, Rhythm Gastrointestinal: Normal Bowel Sounds, No Organomegaly, No Pulsatile Mass, Non Tender, Soft Back: Normal Inspection, No CVA Tenderness, No Vertebral Tenderness Extremity: Normal Capillary Refill, Pedal Edema Neurologic/Psychiatric: Alert, Oriented x3 Skin: Normal Color, Warm/Dry Lymphatic: No Adenopathy Results/Procedures Lab Laboratory Tests 06/07/19 05:59 Patient resulted labs reviewed. Assessment/Plan Assessment and Plan Assess & Plan/Chief Complaint Assessment: Acute respiratory insufficiency requiring Vapotherm and IV steroids and biPAP but improving but may need LTAC Acute exacerbation of COPD Bilateral infiltrates multi-lobar placed on O2 and Meropenem and DC Zosyn Hypoxia ARF Volume overload acute s/p Sepsis Right great toe ulceration with abscess and severe cellulitis rising up into the leg now resolving Severe neuropathy Alcoholism with withdrawal now resolved Smoker with small vessel disease cessation currently Hypertension OOC due to withdrawal now resolved Anxiety PVD ruled out with normal angiogram Metabolic acidosis s/p bicarb drip now DC yesterday Plan: IV Lasix per Dr Aleman Empiric antibiotic of Meropenem for pneumonia multi-lobar Appreciate Dr. Christie and Dr. Gutiérrez and Dr Hansen and Dr Aleman Very complex case and may ultimately require ICU transfer if hypoxia worsens IV steroids If anything worsens he will be transferred to ICU for BiPAP and ventilation but appears less likely IRF? Elim? Diagnosis/Problems Diagnosis/Problems (1) Multifocal pneumonia Status: Acute (2) Sepsis Status: Resolved Qualifiers: Sepsis type: sepsis due to unspecified organism Qualified Codes: A41.9 - Sepsis, unspecified organism Resolution Date/Time: 05/29/19 @ 19:19 (3) Cellulitis of right lower leg Status: Acute (4) Abscess of toe, right Status: Acute (5) Hypertension Status: Chronic Qualifiers: Hypertension type: essential hypertension Qualified Codes: I10 - Essential (primary) hypertension (6) Anxiety Status: Chronic (7) Alcoholism Status: Chronic (8) Smoker Status: Chronic (9) Neuropathy Status: Chronic (10) Ulcer of great toe Status: Acute Qualifiers: Laterality: right Non-pressure ulcer stage: with fat layer exposed Qualified Codes: L97.512 - Non-pressure chronic ulcer of other part of right foot with fat layer exposed (11) Acute renal insufficiency Status: Acute (12) Alcohol withdrawal Status: Resolved Resolution Date/Time: 05/30/19 @ 20:57 (13) Volume overload Status: Acute Qualifiers: Hypervolemia type: unspecified Qualified Codes: E87.70 - Fluid overload, unspecified (14) Elevated brain natriuretic peptide (BNP) level Status: Acute (15) Renal failure Status: Acute Qualifiers: Renal failure chronicity: acute Acute renal failure type: unspecified Qualified Codes: N17.9 - Acute kidney failure, unspecified Clinical Quality Measures DVT/VTE Risk/Contraindication: Risk Factor Score Per Nursin RFS Level Per Nursing on Admit: 2=Moderate Contraindications-Mechi: Other *list below* Other: cellulitis HARDY CAMPBELL DO Jun 07, 2019 10:17
--- NOTE | 2019-06-07 11:07 | Physical Therapy Daily Note ---
PT Daily Note-Current Subjective Patient agrees to PT. Mental Status Patient Orientation: Normal For Age Attachments: Oxygen (vapotherm ), Mesa Catheter, IV Transfers Therapy Code Descriptions/Definitions Functional [place] Measure: 0=Not Assessed/NA 4=Minimal Assistance 1=Total Assistance 5=Supervision or Setup 2=Maximal Assistance 6=Modified [place] 3=Moderate Assistance 7=Complete [place] Therapy Quality Codes: 6 Independent with activity with or without an assistive device 5 Patient requires set up or clean up by helper. Patient completes activity by themselves 4 Supervision or touching assist (CGA). [place] provide cues , steadying assist 3 The helper provides less than half the effort to complete the activity 2 The helper provides more than half the effort to complete the activity 1 Dependent. The helper does all the effort to complete an activity 7 Patient refused to complete or attempt activity 9 The patient did not perform the activity before the current illness or injury 88 Not attempted due to Medical conditions or safety concerns Transfers (B, C, W/C) (FIM): 7 Scootin Sit to/from Stand: 7 Weight Bearing Right Lower Extremity: Right Full Weight Bearing Left Lower Extremity: Left Full Weight Bearing Exercises Seated Therapy Exercises: Ankle pumps, Long arc quads, Hip flexion Seated Reps: 50 Standing: Marching Standing Reps: 100 (2 sets) Assessment Patient SAO2 >90% during activity. Patient is limited with activity due to attachment of vapotherm. Patient voices frustration with attachments and inability to ambulate in hallway independently. PT consulted with physician on POC. PT Short Term Goals Short Term Goals Time Frame: Jun 08, 2019 Transfers (B,C,W/C) (FIM): 6 Gait (FIM): 5 Gait Distance Comment: 300' Gait Level of Assist: 5 Gait Assistive Device: None PT Plan Treatment/Plan Treatment Plan: Continue Plan of Care Treatment Plan: Bed Mobility, Education, Functional Activity Francesca, Functional Strength, Gait, Safety, Therapeutic Exercise, Transfers Treatment Duration: Jun 08, 2019 Frequency: 6 times per week Estimated Hrs Per Day: .25 hour per day Patient and/or Family Agrees t: Yes Time/GCodes Time In: 1001 Time Out: 1012 Total Billed Treatment Time: 11 Total Billed Treatment 1 visit EX 11 min JENNA OWUSU PT Jun 07, 2019 11:07
[2019-06-07 12:00] VITALS: BP 130/68
--- NOTE | 2019-06-07 12:09 | Pulmonary Progress Note ---
Subjective Time Seen by a Provider: 11:04 Subjective/Events-last exam Pt feels better. No complications noted. Sepsis Event Evaluation Height, Weight, BMI Height: 6'2.00" Weight: 231lbs. 2.0oz. 104.854162fb; 28.1 BMI Method:Stated Exam Exam Vital Signs Date Time Temp Pulse Resp B/P (MAP) Pulse Ox O2 Delivery O2 Flow Rate FiO2 06/07/19 10:38 Vapotherm 12.00 40 06/07/19 08:00 97.5 69 20 132/70 (90) 91 Vapotherm 50.00 15.00 06/07/19 08:00 Vapotherm 12.00 40 06/07/19 07:05 92 Vapotherm 12.00 40 06/07/19 07:00 59 06/07/19 04:00 97.9 66 21 143/86 (105) 96 NIV Bilevel 06/07/19 02:03 70 20 95 50.00 06/07/19 01:00 66 06/07/19 00:00 97.4 70 22 139/77 (97) 98 NIV Bilevel 50.00 15.00 06/06/19 23:30 70 20 95 50.00 06/06/19 20:21 96 Vapotherm 15.00 50 06/06/19 20:00 Vapotherm 15.00 50 06/06/19 19:48 97.5 72 20 134/67 (89) 93 Vapotherm 50.00 15.00 06/06/19 19:00 78 06/06/19 16:16 97.6 78 22 126/58 (80) 95 Vapotherm 60.00 15.00 06/06/19 15:59 94 Vapotherm 15.00 60 06/06/19 12:37 77 06/06/19 12:00 97.8 78 22 131/75 (93) 92 Vapotherm 60.00 15.00 I & O 06/07/19 07:00 Intake Total 2120 ml Output Total 2775 ml Balance -655 ml Height & Weight Height: 6'2.00" Weight: 231lbs. 2.0oz. 104.356850fg; 28.1 BMI Method:Stated Results Lab Laboratory Tests 06/05/19 15:24 06/06/19 04:55 06/07/19 05:59 Assessment/Plan Assessment/Plan Sepsis secondary to cellulitis of Right lower leg - Merrem -Repeat leal cultures and MRSA nasal swab - pending Hypoxia r/o PNA -currently on BiPAP - switch back to reg NC -solumedrol 40 q 6 -SVNS Hyperkalemia/hyperphos -D/C KCL -repeat labs -repeat Lasix and bicarb -Monitor Metabolic acidosis - resolved Abscess of right toe -surgery is following -Wound care following worsening Renal insufficiency with metabolic acidosis -D/C NSAIDS and Spironolactone Hx of alcohol use and anxiety Neuropathy Tobacco use -Education CYNTHIA BUENROSTRO DO Jun 07, 2019 12:09
--- NOTE | 2019-06-07 12:58 | NUR ---
Initial visit: The shared his the increasing difficulty with being patient for discharge as his health improves. Offered active listening and encouraged positive coping by focusing on the goal and end result. Pt states he mina by remembering he will not always be where he is now.
--- NOTE | 2019-06-07 14:18 | Occ Therapy Progress Note ---
Therapy Progress Note Pt upset that he is not off of Vapotherm yet. Pt stated that he just wants to shower himself. JOHNSTON explained that pt desaturates easily and that the vapotherm will not reach to shower, but if pt was willing he could take a sponge bath. Pt stated if he could not shampoo himself he does not want to do anything else. Pt was pleasant during this conversation though he was adamant about not doing anything else. Pt stated that he ambulated as far as he could and co mpleted theraband exercises earlier during the day. 1 visit-refusal SUNIL DAMON Jun 07, 2019 14:18
--- NOTE | 2019-06-07 14:26 | NUR ---
REPORT GIVEN TO MIKE UMAÑA TO ASSUME NURSING CARE
--- NOTE | 2019-06-07 14:34 | Cardiology Progress Note ---
Cardiology SOAP Progress Note Subjective: Improving shortness of breath. Objective: I&O/Vital Signs 06/07/19 06/07/19 06/07/19 06/07/19 04:00 07:00 07:05 08:00 Temp 97.9 Pulse 66 59 Resp 21 B/P (MAP) 143/86 (105) Pulse Ox 96 92 O2 Delivery NIV Bilevel Vapotherm Vapotherm O2 Flow Rate 12.00 12.00 FiO2 40 40 06/07/19 06/07/19 06/07/19 06/07/19 08:00 10:38 12:00 12:34 Temp 97.5 98.0 Pulse 69 70 64 Resp 20 20 B/P (MAP) 132/70 (90) 130/68 (88) Pulse Ox 91 92 O2 Delivery Vapotherm Vapotherm Vapotherm O2 Flow Rate 50.00 12.00 50.00 15.00 15.00 FiO2 40 06/06/19 23:59 Intake Total 1720 ml Output Total 2100 ml Balance -380 ml Weight (Pounds): 231 Weight (Ounces): 2.0 Weight (Calculated Kilograms): 104.887141 Constitutional: appears stated age, AAO x 3; No apparent distress; well-develop ed, well-nourished Respiratory: accessory muscle use, respiratory distress; No chest tender, No chest expansion is symmetric; chest is bilaterally symmetric; No lungs clear to percussion, No crackles, No rhonchi, No rales, No stridor; wheezing; No pleural rub, No other Cardiovascular: regular rate-rhythm; No irregularly irregular, No extra beats, No parasternal heave is noted, No JVD, No edema, No bradycardia, No tachycardia, No point of maximal impulse, No cardiac thrills are palpable; S1 and S2; No gallop/S3, No gallop/S4, No diastolic murmur, No systolic murmur, No friction rub, No click, No other Gastrointestional: No tender, No soft, No round, No distended, No pulsatile mass, No organomegaly, No guarding, No rebound, No tenderness, No hernia, No mass, No audible bowel sounds, No abnormal bowel sounds, No abdominal bruits, No spleenomegaly, No other Extremities: No normal range of motion, No non-tender, No normal inspection, No pedal edema, No calf tenderness, No normal capillary refill, No pelvis stable, No calf tenderness, No inflammation, No pedal edema, No slow capillary refill, No swelling, No other, No abrasion, No clubbing, No cyanosis, No ecchymosis, No laceration, No no lower extremity edema bilateral, No significant edema, No tenderness; wound (right great toe) Neurologic/Psychiatric: no motor/sensory deficits, alert, normal mood/affect, oriented x 3, power is 5/5 both on sides Skin: No rash, No ulcerations Results/Procedures: Labs Laboratory Tests 06/07/19 05:59: White Blood Count 15.3H, Red Blood Count 3.00L, Hemoglobin 10.9L, Hematocrit 33L , Mean Corpuscular Volume 110H, Mean Corpuscular Hemoglobin 36H, Mean Corpuscular Hemoglobin Concent 33, Red Cell Distribution Width 15.8H, Platelet Count 329, Mean Platelet Volume 10.2, Neutrophils (%) (Auto) 88H, Lymphocytes (%) (Auto) 6L, Monocytes (%) (Auto) 6, Eosinophils (%) (Auto) 0, Basophils (%) (Auto) 0, Neutrophils # (Auto) 13.4H, Lymphocytes # (Auto) 0.9L, Monocytes # (Auto) 1.0, Eosinophils # (Auto) 0.0, Basophils # (Auto) 0.0, Sodium Level 139, Potassium Level 5.1H, Chloride Level 105, Carbon Dioxide Level 21, Anion Gap 13, Blood Urea Nitrogen 61H, Creatinine 1.90H, Estimat Glomerular Filtration Rate 37, BUN/Creatinine Ratio 32, Glucose Level 129H, Calcium Level 8.8, Phosphorus Level 5.1H, Magnesium Level 1.7L Microbiology 05/30/19 Blood Culture - Final, Complete No growth 06/04/19 MRSA Screen - Final, Complete MRSA not isolated A/P: Assessment/Dx: Right great toe cellulitis, abscess, nonhealing ulcer, No PAD on peripheral angiogram done 05/28/2019, Hypertension, Active smoking, Shortness of breath, acute respiratory failure, Acute diastolic heart failure Plan: IV fluids, wound care and general surgery following. No PAD on peripheral angiogram done on 05/28/2019. shortness of breath. Multifactorial, COPD, pneumonia, acute diastolic heart failure. Wheezing. echocardiogram done 05/29/2019 which was normal LV function with mild to moderate diastolic dysfunction. PA pressure 59 mmHg. No significant valvular heart disease. On Vapotherm. defer to Dr Aleman. elevated BNP - lasix 40 will be given yesterday. Acute diastolic heart failure, elevated BNP, improved with Lasix. COPD, due to active smoking. Acute kidney injury, likely due to dehydration, sepsis, contrast injury. IV fluids. Improved with IV fluids. back to baseline creatinine. Smoking cessation was strongly recommended. Thank you for your consultation. Please call me if you have any questions. Salvatore Hansen MD, FACP, FACC, FSCAI, FHRS, CCDS Interventional Cardiology Cardiac Electrophysiology Vascular Medicine and Endovascular Interventions Isamar HANSEN MD Jun 07, 2019 2:34 pm
--- NOTE | 2019-06-07 15:30 | NUR ---
CM DISCHARGE PLANNING: Visited with Mr. Vu about continued care plans et multiple potential discharge plans. Upon entry into room he was sitting at bedside with vapotherm in place working with a respiratory therapist on incentive spirometry. She reports et patient agreed that he is working hard to wean off of vapotherm. Chava reported that Dr. Aleman thinks that he can change to a high flow nasal canula beginning tomorrow et look towards potentially admitting to IRF. He is currently on 10L at 40% on vapotherm. F/U with Dr. Aleman et he reports that he will be changing Chava off of vapotherm tomorrow 06/08 if he continues on his current course. Talked with Chava about LTAC et what that is et also IRF et what that is. He is agreeable to whatever the physicians think would be the best care plan for him. 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 He is a very agreeable person et voices that he is willing to work hard to get back to as close to normal as he can.
[2019-06-07 16:00] VITALS: BP 110/64
[2019-06-07] MEDS: ENOXAPARIN 40 MG/0.4 ML (LOVENOX) SYR SC SCH (18:26)
[2019-06-07 20:00] VITALS: BP 104/66
[2019-06-07] MEDS: LORazepam 1 MG (ATIVAN) TAB PO PRN (23:02)
[2019-06-08] VITALS (7 sets, daily range): BP systolic 104–135; BP diastolic 60–77
[2019-06-08] MEDS: RT-ALBUTEROL/IPRATROPIUM 3 ML (DUONEB) VIAL INH SCH ×6 (02:00→22:27)
[2019-06-08 05:29] LABS: BASOPHILS % (AUTO) 0 % (0-10); EOSINOPHILS % (AUTO) 0 % (0-10); HEMATOCRIT 31 % (40-54); HEMOGLOBIN 10.4 G/DL (13.3-17.7); LYMPHOCYTES # (AUTO) 1.1 X 10^3 (1.0-4.0); LYMPHOCYTES % (AUTO) 8 % (12-44); MEAN CORPUSCULAR HEMOGLOBIN 36 PG (25-34); MEAN CORPUSCULAR HGB CONC 33 G/DL (32-36); MEAN CORPUSCULAR VOLUME 109 FL (80-99); MEAN PLATELET VOLUME 10.5 FL (7.4-10.4); MONOCYTES # (AUTO) 1.2 X 10^3 (0.0-1.0); MONOCYTES % (AUTO) 8 % (0-12); NEUTROPHILS # (AUTO) 12.1 X 10^3 (1.8-7.8); NEUTROPHILS % (AUTO) 84 % (42-75); PLATELET COUNT 311 10^3/uL (130-400); RED CELL DISTRIBUTION WIDTH 15.7 % (10.0-14.5); WHITE BLOOD COUNT 14.5 10^3/uL (4.3-11.0)
[2019-06-08 05:53] LABS: CALCIUM 8.5 MG/DL (8.5-10.1); CREATININE SERUM 1.79 MG/DL (0.60-1.30); MAGNESIUM 2.2 MG/DL (1.8-2.4); POTASSIUM 5.1 MMOL/L (3.6-5.0)
[2019-06-08] MEDS: methylPREDNISolone 40 MG/ML (Solu-MEDROL) VIAL IV SCH (06:27)
[2019-06-08] MEDS: LACTOBACILLUS ACIDOPHILUS (PROBIOTIC) CAPSULE PO SCH ×4 (06:30→20:34)
[2019-06-08] MEDS: CLOPIDOGREL 75 MG (PLAVIX) TABLET PO SCH (09:09)
[2019-06-08] MEDS: FUROSEMIDE 40 MG/4 ML INJ (LASIX) IVP SCH (09:09)
[2019-06-08] MEDS: hydrALAZINE (APRESOLINE) 25 MG TAB PO SCH ×3 (09:09→20:34)
[2019-06-08] MEDS: ATENOLOL 25 MG (TENORMIN) TAB PO SCH ×2 (09:10→20:34)
[2019-06-08] MEDS: ASPIRIN E.C. 81 MG (ECOTRIN) TAB PO SCH (09:10)
[2019-06-08] MEDS: SENNA W/DOCUSATE (SENOKOT S) TABLET PO SCH ×2 (09:10→20:34)
[2019-06-08] MEDS: DAKIN'S 1/4 STRENGTH (0.125%) 473 ML BTL TOP SCH ×2 (09:10→20:34)
[2019-06-08] MEDS: amLODIPine 5 MG (NORVASC) TAB PO SCH (09:10)
--- NOTE | 2019-06-08 09:54 | Physical Therapy Daily Note ---
PT Daily Note-Current Subjective Patient agrees to PT. Patient continues to voice frustration with vapotherm. Pain Numeric Pain Scale: 0-No Pain Location: No Pain Reported Mental Status Patient Orientation: Normal For Age Attachments: Oxygen (vapotherm 10/40), Mesa Catheter Transfers Therapy Code Descriptions/Definitions Functional [place] Measure: 0=Not Assessed/NA 4=Minimal Assistance 1=Total Assistance 5=Supervision or Setup 2=Maximal Assistance 6=Modified [place] 3=Moderate Assistance 7=Complete [place] Therapy Quality Codes: 6 Independent with activity with or without an assistive device 5 Patient requires set up or clean up by helper. Patient completes activity by themselves 4 Supervision or touching assist (CGA). [place] provide cues , steadying assist 3 The helper provides less than half the effort to complete the activity 2 The helper provides more than half the effort to complete the activity 1 Dependent. The helper does all the effort to complete an activity 7 Patient refused to complete or attempt activity 9 The patient did not perform the activity before the current illness or injury 88 Not attempted due to Medical conditions or safety concerns Transfers (B, C, W/C) (FIM): 7 Scootin Rollin Supine to/from Sit: 7 Sit to/from Stand: 7 Weight Bearing Right Lower Extremity: Right Full Weight Bearing Left Lower Extremity: Left Full Weight Bearing Exercises Seated Therapy Exercises: Ankle pumps, Long arc quads, Hip flexion Seated Reps: 50 Standing: Marching (100 reps x 2), Mini squats (50 reps) Assessment Patient SAO2 maintained 91% on vapotherm 10/40. Notified. PT to continue with POC. PT Short Term Goals Short Term Goals Time Frame: Jun 08, 2019 Transfers (B,C,W/C) (FIM): 6 Gait (FIM): 5 Gait Distance Comment: 300' Gait Level of Assist: 5 Gait Assistive Device: None PT Plan Treatment/Plan Treatment Plan: Continue Plan of Care Treatment Plan: Bed Mobility, Education, Functional Activity Francesca, Functional Strength, Gait, Safety, Therapeutic Exercise, Transfers Treatment Duration: Jun 15, 2019 Frequency: 6 times per week Estimated Hrs Per Day: .25 hour per day Patient and/or Family Agrees t: Yes Time/GCodes Time In: 910 Time Out: 935 Total Billed Treatment Time: 25 Total Billed Treatment 1 visit EX x 2 25 min JENNA OWUSU PT Jun 08, 2019 09:54
--- NOTE | 2019-06-08 11:03 | Progress Note - Hospitalist ---
Subjective HPI/CC On Admission Date Seen by Provider: Jun 08, 2019 Time Seen by Provider: 10:30 CC: Right great toe ulcer with abscess and cellulitis HPI: This is a 58-year-old white male clinic patient of mine for the past 10 years who has a past medical history of alcoholism, hypertension, anxiety and smoking with chronic neuropathy who presented to my clinic after he called for an urgent appointment for a gout attack so labs were drawn prior to appointment and when he arrived I evaluated the right great toe showing a significant ulceration with pustular drainage along with cellulitis of his entire foot spreading up his leg. He was found to be in need of IV antibiotics and Dr. Christie was consulted along with Dr. Gutiérrez for wound care and possible toe abscess respectively. He will be placed on empiric antibiotics provided pain control and he will be on alcohol withdrawal protocol. Patient is currently doing much better did have some anxiety early this morning and wanted a cigarette and I did offer nicotine patch but he declined. Overall his right foot and toe is much improved and arterial ultrasound is pending at time of dictation and understands the diagnosis sepsis and the need to continue on IV antibiotics with close monitoring. Subjective/Events-last exam Patient doing much better Physical therapy will help him take a shower today Wean off Vapotherm Dr. Aleman thinks things are improved Creatinine is 1.7 very encouraging Walking much better Check meds and labs Bowels are moving Review of Systems General: Fatigue Pulmonary: Dyspnea Objective Exam Vital Signs Vital Signs Date Time Temp Pulse Resp B/P (MAP) Pulse Ox O2 Delivery O2 Flow Rate FiO2 06/08/19 16:00 97.2 74 18 104/61 (75) 98 High Flow N/C 6.00 06/08/19 08:00 40 Capillary Refill : Less Than 3 SecondsLess Than 3 Seconds General Appearance: No Apparent Distress, WD/WN, Anxious, Chronically ill HEENT: PERRL/EOMI, TMs Normal Neck: Full Range of Motion, Supple Respiratory: Chest Non Tender, Lungs Clear, Normal Breath Sounds, Accessory Muscle Use (when talking) Cardiovascular: Regular Rate, Rhythm Gastrointestinal: Normal Bowel Sounds, No Organomegaly, No Pulsatile Mass, Non Tender, Soft Back: Normal Inspection, No CVA Tenderness, No Vertebral Tenderness Extremity: Normal Capillary Refill, Pedal Edema Neurologic/Psychiatric: Alert, Oriented x3 Skin: Normal Color, Warm/Dry Lymphatic: No Adenopathy Results/Procedures Lab Laboratory Tests 06/08/19 05:11 Patient resulted labs reviewed. Assessment/Plan Assessment and Plan Assess & Plan/Chief Complaint Assessment: Acute respiratory insufficiency requiring Vapotherm and IV steroids and biPAP but improving but may need LTAC Acute exacerbation of COPD Bilateral infiltrates multi-lobar placed on O2 and Meropenem and DC Zosyn Hypoxia ARF Volume overload acute s/p Sepsis Right great toe ulceration with abscess and severe cellulitis rising up into the leg now resolving Severe neuropathy Alcoholism with withdrawal now resolved Smoker with small vessel disease cessation currently Hypertension OOC due to withdrawal now resolved Anxiety PVD ruled out with normal angiogram Metabolic acidosis s/p bicarb drip now DC yesterday Plan: IV Lasix per Dr Aleman Empiric antibiotic of Meropenem for pneumonia multi-lobar Appreciate Dr. Christie and Dr. Gutiérrez and Dr Hansen and Dr Aleman Very complex case and may ultimately require ICU transfer if hypoxia worsens IV steroids If anything worsens he will be transferred to ICU for BiPAP and ventilation but appears less likely IRF? Brea? Diagnosis/Problems Diagnosis/Problems (1) Multifocal pneumonia Status: Acute (2) Sepsis Status: Resolved Qualifiers: Sepsis type: sepsis due to unspecified organism Qualified Codes: A41.9 - Sepsis, unspecified organism Resolution Date/Time: 05/29/19 @ 19:19 (3) Cellulitis of right lower leg Status: Acute (4) Abscess of toe, right Status: Acute (5) Hypertension Status: Chronic Qualifiers: Hypertension type: essential hypertension Qualified Codes: I10 - Essential (primary) hypertension (6) Anxiety Status: Chronic (7) Alcoholism Status: Chronic (8) Smoker Status: Chronic (9) Neuropathy Status: Chronic (10) Ulcer of great toe Status: Acute Qualifiers: Laterality: right Non-pressure ulcer stage: with fat layer exposed Qualified Codes: L97.512 - Non-pressure chronic ulcer of other part of right foot with fat layer exposed (11) Acute renal insufficiency Status: Acute (12) Alcohol withdrawal Status: Resolved Resolution Date/Time: 05/30/19 @ 20:57 (13) Volume overload Status: Acute Qualifiers: Hypervolemia type: unspecified Qualified Codes: E87.70 - Fluid overload, unspecified (14) Elevated brain natriuretic peptide (BNP) level Status: Acute (15) Renal failure Status: Acute Qualifiers: Renal failure chronicity: acute Acute renal failure type: unspecified Qualified Codes: N17.9 - Acute kidney failure, unspecified Clinical Quality Measures DVT/VTE Risk/Contraindication: Risk Factor Score Per Nursin RFS Level Per Nursing on Admit: 2=Moderate Contraindications-Mechi: Other *list below* Other: cellulitis HARDY CAMPBELL DO Jun 08, 2019 11:03
--- NOTE | 2019-06-08 11:10 | Pulmonary Progress Note ---
Subjective Time Seen by a Provider: 08:53 Subjective/Events-last exam pt is feeling better. Sepsis Event Evaluation Height, Weight, BMI Height: 6'2.00" Weight: 231lbs. 8.0oz. 105.400921ih; 28.1 BMI Method:Stated Exam Exam Vital Signs Date Time Temp Pulse Resp B/P (MAP) Pulse Ox O2 Delivery O2 Flow Rate FiO2 06/08/19 08:00 97.3 62 20 129/71 (90) 100 Vapotherm 40.00 10.00 06/08/19 07:46 65 14 97 50.00 06/08/19 07:00 58 06/08/19 04:00 97.9 74 21 126/73 (90) 98 Vapotherm 40.00 10.00 06/08/19 02:00 68 13 94 50.00 06/08/19 01:00 60 06/08/19 00:49 97.4 65 20 127/77 (94) 98 Vapotherm 40.00 10.00 06/07/19 23:00 67 28 92 50.00 06/07/19 20:30 94 Vapotherm 40.00 06/07/19 20:00 97.8 68 18 104/66 (79) 95 Vapotherm 40.00 10.00 06/07/19 19:00 73 06/07/19 18:43 93 Vapotherm 10.00 40 06/07/19 16:00 97.4 71 18 110/64 (79) 95 Vapotherm 50.00 15.00 06/07/19 14:41 Vapotherm 10.00 40 06/07/19 12:34 64 06/07/19 12:00 98.0 70 20 130/68 (88) 92 Vapotherm 50.00 15.00 I & O 06/08/19 07:00 Intake Total 2640 ml Output Total 1775 ml Balance 865 ml Height & Weight Height: 6'2.00" Weight: 231lbs. 8.0oz. 105.325948xv; 28.1 BMI Method:Stated General Appearance: No Apparent Distress, WD/WN HEENT: PERRL/EOMI, Normal ENT Inspection, Pharynx Normal Neck: Full Range of Motion, Non Tender, Supple Respiratory: Chest Non Tender, Lungs Clear, No Accessory Muscle Use, No Respiratory Distress, Decreased Breath Sounds Cardiovascular: Regular Rate, Rhythm, No Edema Capillary Refill: Less Than 3 Seconds Gastrointestinal: normal bowel sounds, non tender, soft Extremity: Normal Capillary Refill, No Pedal Edema Neurologic/Psychiatric: Alert, Oriented x3 Skin: Normal Color, Warm/Dry Results Lab Laboratory Tests 06/07/19 05:59 06/08/19 05:11 Assessment/Plan Assessment/Plan Sepsis secondary to cellulitis of Right lower leg -Repeat leal cultures and MRSA nasal swab - pending Hypoxia r/o PNA -titrate oxygen - switch to regular NC -solumedrol-- D/C -SVNS Hyperkalemia/hyperphos -Lasix -Monitor Metabolic acidosis - resolved Abscess of right toe -surgery is following -Wound care following Renal insufficiency --improving Hx of alcohol use and anxiety Neuropathy Tobacco use -Education CYNTHIA BUENROSTRO DO Jun 08, 2019 11:10
--- NOTE | 2019-06-08 12:23 | Diagnostic Imaging Report ---
Indication: Pulmonary edema. Time of exam: 11:40 AM Correlation is made with prior chest from one day earlier. Heart remains enlarged. Congestive changes have improved since yesterday. There is some residual atelectasis in the lung bases. There are small effusions. There is no pneumothorax. Impression: Overall improved congestive changes when compared with examination one day earlier. Dictated by: Dictated on workstation # [id number]
--- NOTE | 2019-06-08 14:22 | Occupational Ther Daily Note ---
OT Current Status-Daily Note Subjective pt sitting EOB upon OT arrival. pt agreed to OT TX session with focus on education for energy conservation techniques. pt reports no pain. Mental Status/Objective Patient Orientation: Person, Place, Time, Situation, Normal For Age Therapy Code Descriptions/Definitions Functional [place] Measure: 0=Not Assessed/NA 4=Minimal Assistance 1=Total Assistance 5=Supervision or Setup 2=Maximal Assistance 6=Modified [place] 3=Moderate Assistance 7=Complete [place] Attachments: Mesa Catheter, Oxygen ADL-Treatment pt completed all ADL/ functional transfers prior to OT arrival INDEPENDENTLY. Grooming (FIM): 7 Lower Body Dressing (FIM): 7 Toileting (FIM): 7 Transfers (B, C, W/C) (FIM): 6 (SAFETY CONCERNS SECONDARY TO SOB ) pt stated prior to OT arrival he took full shower mostly standing and seated intermitted for approx 25 minutes enjoying the shower. pt stated he has no concerns while showering. post shower pt stated he completed all dressing even threading cath bag through pants leg. (caul fat puller shirt, underpants, pants, danyel socks. ) pt stated he was SOB but O2 sat remained above 90% accord. to pt. NSG aide confirmed pt completed all ADL/ functional tasks indep;ly in room. Other Treatment pt education on energy conservation techniques and 4Ps of energy conservation within ADLs. pt verbalized understanding by relating way to incorporate techniques into everyday living. O2 sat monitor during tasks and remained above 98%. pt perform bed mobility independently. pt laying in be post OT session, call light within reach, all needs met. Education OT Patient Education: Energy conservation Teaching Recipient: Patient Teaching Methods: Demonstration, Discussion Response to Teaching: Verbalize Understanding, Return Demonstration OT Short Term Goals Short Term Goals Transfers (B,C,W/C) (FIM): 6 1=Demonstrate adherence to instructed precautions during ADL tasks. 2=Patient will verbalize/demonstrate understanding of assistive devices/modifications for ADL. 3=Patient will improve strength/tolerance for activity to enable patient to perform ADL's. OT Audit Clerk Goals Audit Clerk Goals Time Frame: Jun 09, 2019 Bathing(FIM): 6 Upper Body Dressing(FIM): 6 Lower Body Dressing(FIM): 6 Toileting(FIM): 6 Toilet/Commode Transfer(FIM): 6 Additional Goals: 1-Demonstrate ADL Tasks, 2-Verbalize Understanding, 3- ImproveStrength/Francesca 1=Demonstrate adherence to instructed precautions during ADL tasks. 2=Patient will verbalize/demonstrate understanding of assistive devices/modifications for ADL. 3=Patient will improve strength/tolerance for activity to enable patient to perform ADL's. OT Education/Plan Problem List/Assessment Assessment: Decreased Activ Tolerance Pt demonstrates decreased activity tolerance, mobility, and ADL functioning. Pt to benefit from skilled OT intervention for ADL training, transfers, strengthening, and home safety education to increase level of independence and allow safe discharge. Discharge Recommendations Plan/Recommendations: Continue POC Treatment Plan/Plan of Care Treatment,Training & Education: Yes Patient would benefit from OT for education, treatment and training to promote independence in ADL's, mobility, safety and/or upper extremity function for ADL's. Plan of Care: ADL Retraining, Functional Mobility, Group Exercise/Act as Ind, U E Funct Exercise/Act Treatment Duration: Jun 09, 2019 Frequency: 5 times per week Estimated Hrs Per Day: .25 hour per day Agreement: Yes Rehab Potential: Fair Time/GCodes Start Time: 13:45 Stop Time: 14:10 Billed Treatment Time FA 15 MINUTES, 1 UNIT ADL 10 MINUTES, 1 UNIT SARAH GARDNER OT Jun 08, 2019 14:22
--- NOTE | 2019-06-08 14:34 | Occ Therapy Progress Note ---
Therapy Progress Note Pt declined therapy at this time stating that he is waiting on RT to take him off Vapotherm so he can have a shower. Will check on pt later today. 1 visit- REF [id number] SUNIL DAMON Jun 08, 2019 14:34
[2019-06-08] MEDS: ENOXAPARIN 40 MG/0.4 ML (LOVENOX) SYR SC SCH (17:22)
--- NOTE | 2019-06-08 18:27 | Cardiology Progress Note ---
Cardiology SOAP Progress Note Subjective: Improved shortness of breath. Objective: I&O/Vital Signs 06/08/19 06/08/19 06/08/19 06/08/19 07:00 07:46 08:00 08:00 Temp 97.3 Pulse 58 65 62 Resp 14 20 B/P (MAP) 129/71 (90) Pulse Ox 97 100 O2 Delivery Vapotherm Vapotherm O2 Flow Rate 50.00 40.00 10.00 10.00 FiO2 40 06/08/19 06/08/19 06/08/19 06/08/19 11:59 12:00 13:00 15:50 Temp 97.4 Pulse 65 70 Resp 22 B/P (MAP) 121/60 (80) Pulse Ox 96 96 99 O2 Delivery Nasal Cannula Nasal Cannula Nasal Cannula O2 Flow Rate 6.00 6.00 6.00 06/08/19 16:00 Temp 97.2 Pulse 74 Resp 18 B/P (MAP) 104/61 (75) Pulse Ox 98 O2 Delivery High Flow N/C O2 Flow Rate 6.00 06/08/19 00:00 Intake Total 2140 ml Output Total 775 ml Balance 1365 ml Weight (Pounds): 231 Weight (Ounces): 8.0 Weight (Calculated Kilograms): 105.497726 Constitutional: appears stated age, AAO x 3; No apparent distress; well- developed, well-nourished Respiratory: accessory muscle use, respiratory distress; No chest tender, No c hest expansion is symmetric; chest is bilaterally symmetric; No lungs clear to percussion, No crackles, No rhonchi, No rales, No stridor; wheezing; No pleural rub, No other Cardiovascular: regular rate-rhythm; No irregularly irregular, No extra beats, No parasternal heave is noted, No JVD, No edema, No bradycardia, No tachycardia, No point of maximal impulse, No cardiac thrills are palpable; S1 and S2; No gallop/S3, No gallop/S4, No diastolic murmur, No systolic murmur, No friction rub, No click, No other Gastrointestional: No tender, No soft, No round, No distended, No pulsatile mass, No organomegaly, No guarding, No rebound, No tenderness, No hernia, No mass, No audible bowel sounds, No abnormal bowel sounds, No abdominal bruits, No spleenomegaly, No other Extremities: No normal range of motion, No non-tender, No normal inspection, No pedal edema, No calf tenderness, No normal capillary refill, No pelvis stable, No calf tenderness, No inflammation, No pedal edema, No slow capillary refill, No swelling, No other, No abrasion, No clubbing, No cyanosis, No ecchymosis, No laceration, No no lower extremity edema bilateral, No significant edema, No tenderness; wound (right great toe) Neurologic/Psychiatric: no motor/sensory deficits, alert, normal mood/affect, oriented x 3, power is 5/5 both on sides Skin: No rash, No ulcerations Results/Procedures: Labs Laboratory Tests 06/08/19 05:11: White Blood Count 14.5H, Red Blood Count 2.87L, Hemoglobin 10.4L, Hematocrit 31L , Mean Corpuscular Volume 109H, Mean Corpuscular Hemoglobin 36H, Mean Corpuscular Hemoglobin Concent 33, Red Cell Distribution Width 15.7H, Platelet Count 311, Mean Platelet Volume 10.5H, Neutrophils (%) (Auto) 84H, Lymphocytes (%) (Auto) 8L, Monocytes (%) (Auto) 8, Eosinophils (%) (Auto) 0, Basophils (%) (Auto) 0, Neutrophils # (Auto) 12.1H, Lymphocytes # (Auto) 1.1, Monocytes # (Auto) 1.2H, Eosinophils # (Auto) 0.0, Basophils # (Auto) 0.0, Sodium Level 137, Potassium Level 5.1H, Chloride Level 104, Carbon Dioxide Level 23, Anion Gap 10, Blood Urea Nitrogen 63H, Creatinine 1.79H, Estimat Glomerular Filtration Rate 39, BUN/Creatinine Ratio 35, Glucose Level 121H, Calcium Level 8.5, Phosphorus Level 5.0H, Magnesium Level 2.2 Microbiology 05/30/19 Blood Culture - Final, Complete No growth 06/04/19 MRSA Screen - Final, Complete MRSA not isolated A/P: Assessment/Dx: Right great toe cellulitis, abscess, nonhealing ulcer, No PAD on peripheral angiogram done 05/28/2019, Hypertension, Active smoking, Shortness of breath, acute respiratory failure, Acute diastolic heart failure Plan: IV fluids, wound care and general surgery following. No PAD on peripheral angiogram done on 05/28/2019. shortness of breath. Multifactorial, COPD, pneumonia, acute diastolic heart failure. Wheezing. echocardiogram done 05/29/2019 which was normal LV function with mild to moderate diastolic dysfunction. PA pressure 59 mmHg. No significant valvular heart disease. On Vapotherm. defer to Dr Aleman. elevated BNP - lasix helping. Acute diastolic heart failure, elevated BNP, improved with Lasix. COPD, due to active smoking. Acute kidney injury, likely due to dehydration, sepsis, contrast injury. IV fluids. Improved with IV fluids. back to baseline creatinine. Smoking cessation was strongly recommended. Thank you for your consultation. Please call me if you have any questions. Salvatore Hansen MD, FACP, FACC, FSCAI, FHRS, CCDS Interventional Cardiology Cardiac Electrophysiology Vascular Medicine and Endovascular Interventions Isamar HANSEN MD Jun 08, 2019 18:27
[2019-06-08] MEDS: LORazepam 1 MG (ATIVAN) TAB PO PRN (21:26)
[2019-06-09] MEDS: RT-ALBUTEROL/IPRATROPIUM 3 ML (DUONEB) VIAL INH SCH ×6 (02:45→23:04)
[2019-06-09 04:20] VITALS: BP 126/75
[2019-06-09 05:56] LABS: BASOPHILS % (AUTO) 0 % (0-10); EOSINOPHILS # (AUTO) 0.2 10^3/uL (0.0-0.3); EOSINOPHILS % (AUTO) 2 % (0-10); HEMATOCRIT 34 % (40-54); HEMOGLOBIN 11.4 G/DL (13.3-17.7); LYMPHOCYTES # (AUTO) 2.3 X 10^3 (1.0-4.0); LYMPHOCYTES % (AUTO) 17 % (12-44); MEAN CORPUSCULAR HEMOGLOBIN 37 PG (25-34); MEAN CORPUSCULAR HGB CONC 34 G/DL (32-36); MEAN CORPUSCULAR VOLUME 109 FL (80-99); MEAN PLATELET VOLUME 10.7 FL (7.4-10.4); MONOCYTES # (AUTO) 1.7 X 10^3 (0.0-1.0); MONOCYTES % (AUTO) 13 % (0-12); NEUTROPHILS # (AUTO) 9.1 X 10^3 (1.8-7.8); NEUTROPHILS % (AUTO) 68 % (42-75); PLATELET COUNT 228 10^3/uL (130-400); RED CELL DISTRIBUTION WIDTH 16.1 % (10.0-14.5); WHITE BLOOD COUNT 13.3 10^3/uL (4.3-11.0)
[2019-06-09] MEDS ORDERED: methylPREDNISolone 40 MG/ML (Solu-MEDROL) VIAL IV SCH (06:00)
[2019-06-09] MEDS: LACTOBACILLUS ACIDOPHILUS (PROBIOTIC) CAPSULE PO SCH ×4 (06:05→20:37)
[2019-06-09 06:21] LABS: CALCIUM 8.7 MG/DL (8.5-10.1); CREATININE SERUM 1.73 MG/DL (0.60-1.30); MAGNESIUM 2.4 MG/DL (1.8-2.4); PHOSPHORUS 4.4 MG/DL (2.3-4.7); POTASSIUM 4.5 MMOL/L (3.6-5.0)
--- NOTE | 2019-06-09 07:33 | NUR ---
When RT entered the patients room he was in the bathroom shaving and did not have his O2 on; RT checked his O2 sat and he was at 84%; patient placed O2 back on and his sat came right up to the 90's.
[2019-06-09 08:08] VITALS: BP 113/66
--- NOTE | 2019-06-09 08:40 | Physical Therapy Daily Note ---
PT Daily Note-Current Subjective States that he is doing so much better. States that he needs to get back to work. Pain Numeric Pain Scale: 0-No Pain Transfers Therapy Code Descriptions/Definitions Functional [place] Measure: 0=Not Assessed/NA 4=Minimal Assistance 1=Total Assistance 5=Supervision or Setup 2=Maximal Assistance 6=Modified [place] 3=Moderate Assistance 7=Complete [place] Therapy Quality Codes: 6 Independent with activity with or without an assistive device 5 Patient requires set up or clean up by helper. Patient completes activity by themselves 4 Supervision or touching assist (CGA). [place] provide cues , steadying assist 3 The helper provides less than half the effort to complete the activity 2 The helper provides more than half the effort to complete the activity 1 Dependent. The helper does all the effort to complete an activity 7 Patient refused to complete or attempt activity 9 The patient did not perform the activity before the current illness or injury 88 Not attempted due to Medical conditions or safety concerns Transfers (B, C, W/C) (FIM): 7 Weight Bearing Right Lower Extremity: Right Full Weight Bearing Left Lower Extremity: Left Full Weight Bearing Gait Training Gait (FIM): 5 Distance (FIM): 3=150 ft Distance: 500' Gait Level of Assist: 5 Gait Persons Needed: 1 Gait Assistive Device: None Assessment Current Status: Excellent Progress Patient maintained good SPO2 with 3L O2. PT Short Term Goals Short Term Goals Time Frame: Jun 08, 2019 Transfers (B,C,W/C) (FIM): 6 Gait (FIM): 5 Gait Distance Comment: 300' Gait Level of Assist: 5 Gait Assistive Device: None PT Plan Treatment/Plan Treatment Plan: Continue Plan of Care Treatment Plan: Bed Mobility, Education, Functional Activity Francesca, Functional Strength, Gait, Safety, Therapeutic Exercise, Transfers Treatment Duration: Jun 15, 2019 Frequency: 6 times per week Estimated Hrs Per Day: .25 hour per day Patient and/or Family Agrees t: Yes Discharge Recommendations Therapy D/C Recommendations: Occupational Therapy Home Care (20) Time/GCodes Time In: 08 Time Out: 08 Total Billed Treatment Time: 20 Total Billed Treatment 1, GT x 20' JULIO EWING PT Jun 09, 2019 08:40
[2019-06-09] MEDS: FUROSEMIDE 40 MG/4 ML INJ (LASIX) IVP SCH (08:41)
[2019-06-09] MEDS: DAKIN'S 1/4 STRENGTH (0.125%) 473 ML BTL TOP SCH ×2 (08:41→20:38)
[2019-06-09] MEDS: CLOPIDOGREL 75 MG (PLAVIX) TABLET PO SCH (08:41)
[2019-06-09] MEDS: amLODIPine 5 MG (NORVASC) TAB PO SCH (08:41)
[2019-06-09] MEDS: ASPIRIN E.C. 81 MG (ECOTRIN) TAB PO SCH (08:41)
[2019-06-09] MEDS: ATENOLOL 25 MG (TENORMIN) TAB PO SCH ×2 (08:41→20:37)
[2019-06-09] MEDS: hydrALAZINE (APRESOLINE) 25 MG TAB PO SCH ×3 (08:41→20:37)
[2019-06-09] MEDS: SENNA W/DOCUSATE (SENOKOT S) TABLET PO SCH ×2 (08:42→20:37)
--- NOTE | 2019-06-09 08:52 | Pulmonary Progress Note ---
Subjective Time Seen by a Provider: 08:54 Subjective/Events-last exam No complications noted. Pt feels improved. Sepsis Event Evaluation Height, Weight, BMI Height: 6'2.00" Weight: 227lbs. 4.8oz. 103.065780zu; 28.1 BMI Method:Stated Exam Exam Vital Signs Date Time Temp Pulse Resp B/P (MAP) Pulse Ox O2 Delivery O2 Flow Rate FiO2 06/09/19 08:08 97.8 64 18 113/66 (82) 93 High Flow N/C 06/09/19 07:21 93 Nasal Cannula 3.00 06/09/19 04:20 97.3 65 21 126/75 (92) 98 NIV Bilevel 50.00 06/09/19 02:49 67 14 96 50.00 06/09/19 01:00 58 06/08/19 23:53 97.4 66 14 135/76 (95) 98 NIV Bilevel 50.00 06/08/19 22:29 64 18 99 50.00 06/08/19 19:53 97.8 65 18 124/69 (87) 96 High Flow N/C 3.00 06/08/19 19:50 High Flow N/C 3.00 06/08/19 19:00 70 06/08/19 16:00 97.2 74 18 104/61 (75) 98 High Flow N/C 6.00 06/08/19 15:50 99 Nasal Cannula 6.00 06/08/19 13:00 70 06/08/19 12:00 97.4 65 22 121/60 (80) 96 Nasal Cannula 6.00 06/08/19 11:59 96 Nasal Cannula 6.00 I & O 06/09/19 07:00 Intake Total 1570 ml Output Total 3525 ml Balance -1955 ml Height & Weight Height: 6'2.00" Weight: 227lbs. 4.8oz. 103.521473ch; 28.1 BMI Method:Stated General Appearance: No Apparent Distress, WD/WN, Anxious, Chronically ill HEENT: PERRL/EOMI, Normal ENT Inspection, Pharynx Normal Neck: Full Range of Motion, Non Tender, Supple Respiratory: Chest Non Tender, No Accessory Muscle Use, No Respiratory Distress, Crackles, Decreased Breath Sounds Cardiovascular: Regular Rate, Rhythm Capillary Refill: Less Than 3 Seconds Gastrointestinal: normal bowel sounds, non tender, soft, no organomegaly, no pulsatile mass Extremity: Normal Capillary Refill, Non Tender, No Calf Tenderness Neurologic/Psychiatric: Alert, Oriented x3 Skin: Normal Color, Warm/Dry Lymphatic: No Adenopathy Results Lab Laboratory Tests 06/08/19 05:11 06/09/19 05:32 Assessment/Plan Assessment/Plan Sepsis secondary to cellulitis of Right lower leg -Repeat leal cultures and MRSA nasal swab - pending Hypoxia r/o PNA -titrate oxygen - switch to regular NC -solumedrol-- D/C -SVNS Hyperkalemia/hyperphos -Lasix -Monitor Metabolic acidosis - resolved Abscess of right toe -surgery is following -Wound care following Renal insufficiency --improving Hx of alcohol use and anxiety Neuropathy Tobacco use -Education CYNTHIA BUENROSTRO DO Jun 09, 2019 08:52
--- NOTE | 2019-06-09 11:27 | NUR ---
Patient was sitting on the side of the bed; patient was on 3 L NC and satting 96% so RT decreased O2 to 1 L NC; will continue to monitor patient
--- NOTE | 2019-06-09 15:30 | NUR ---
patient was on 1 L satting 89% so RT increased O2 to 2 L NC
[2019-06-09 16:58] VITALS: BP 133/78
--- NOTE | 2019-06-09 17:29 | Progress Note - Hospitalist ---
Progress Note Progress Notes/Assess & Plan Date Seen 06/09/19 Time Seen by Provider: 17:25 Assessment & Plan The patient is a 58-year-old white male who has now been in the hospital 16 days. The trigger was a family CAN[place] trip which resulted in a injury to his right great toe. He has had a peripheral neuropathy for a number of years. He attempted to deal with this at home with dressings and Neosporin ointment. It ultimately developed an apparent blood blister which ruptured and then the toe began to get swollen and red. He saw Dr. Martínez at the office and was immediately hospitalized. During this period of time he then developed a pulmonary process bilaterally which caused him to require ICU admission. The lung issue has been slow to resolve but is finally allowing him to manage on nasal cannula oxygen and not any form of pressure support. Physical exam: The patient is able to speak in full sentences. Lungs are clear to auscultation breath sounds are distant. CV is regular. Abdomen is slightly obese. Extremities show the right foot to be in fresh dressings. Impression: Bilateral peripheral neuropathy. 2.cellulitis/abscess right great toe. 3.bilateral pneumonia. Plan: Continue present treatment plan TRACY MAGANA MD Jun 09, 2019 17:29
[2019-06-09] MEDS: ENOXAPARIN 40 MG/0.4 ML (LOVENOX) SYR SC SCH (18:00)
[2019-06-09 20:25] VITALS: BP 104/57
[2019-06-09] MEDS: LORazepam 1 MG (ATIVAN) TAB PO PRN (22:57)
[2019-06-10 00:15] VITALS: BP 109/66
[2019-06-10] MEDS: RT-ALBUTEROL/IPRATROPIUM 3 ML (DUONEB) VIAL INH SCH ×7 (02:47→22:44)
[2019-06-10 04:47] VITALS: BP 126/66
[2019-06-10] MEDS: LACTOBACILLUS ACIDOPHILUS (PROBIOTIC) CAPSULE PO SCH ×4 (06:07→22:12)
[2019-06-10 06:20] LABS: BASOPHILS % (AUTO) 0 % (0-10); EOSINOPHILS # (AUTO) 0.4 10^3/uL (0.0-0.3); EOSINOPHILS % (AUTO) 4 % (0-10); HEMATOCRIT 31 % (40-54); HEMOGLOBIN 10.3 G/DL (13.3-17.7); LYMPHOCYTES # (AUTO) 1.9 X 10^3 (1.0-4.0); LYMPHOCYTES % (AUTO) 20 % (12-44); MEAN CORPUSCULAR HEMOGLOBIN 37 PG (25-34); MEAN CORPUSCULAR HGB CONC 34 G/DL (32-36); MEAN CORPUSCULAR VOLUME 109 FL (80-99); MEAN PLATELET VOLUME 10.7 FL (7.4-10.4); MONOCYTES % (AUTO) 11 % (0-12); NEUTROPHILS # (AUTO) 6.1 X 10^3 (1.8-7.8); NEUTROPHILS % (AUTO) 65 % (42-75); PLATELET COUNT 287 10^3/uL (130-400); RED CELL DISTRIBUTION WIDTH 15.7 % (10.0-14.5); WHITE BLOOD COUNT 9.3 10^3/uL (4.3-11.0)
[2019-06-10 06:46] LABS: CALCIUM 8.7 MG/DL (8.5-10.1); CREATININE SERUM 1.78 MG/DL (0.60-1.30); MAGNESIUM 1.6 MG/DL (1.8-2.4); POTASSIUM 4.2 MMOL/L (3.6-5.0)
--- NOTE | 2019-06-10 07:30 | Pulmonary Progress Note ---
Subjective Time Seen by a Provider: 07:56 Subjective/Events-last exam Pt feels improved and wants tariq out Sepsis Event Evaluation Height, Weight, BMI Height: 6'2.00" Weight: 223lbs. 0.8oz. 101.393802yg; 28.1 BMI Method:Stated Exam Exam Vital Signs Date Time Temp Pulse Resp B/P (MAP) Pulse Ox O2 Delivery O2 Flow Rate FiO2 06/10/19 04:47 98.1 71 19 126/66 (86) 96 NIV Bilevel 35.00 06/10/19 02:48 72 13 93 35.00 06/10/19 01:00 65 06/10/19 00:15 97.6 69 16 109/66 (80) 98 NIV Bilevel 35.00 06/09/19 23:09 60 13 99 50.00 06/09/19 20:30 99 High Flow N/C 2.00 06/09/19 20:25 97.4 79 16 104/57 (73) 96 High Flow N/C 2.00 06/09/19 19:09 95 Nasal Cannula 2.00 06/09/19 19:00 76 06/09/19 16:58 97.3 68 16 133/78 (96) 97 High Flow N/C 2.00 06/09/19 15:28 89 Nasal Cannula 1.00 06/09/19 13:00 69 06/09/19 11:48 97.9 70 18 96 Nasal Cannula 3.00 06/09/19 11:22 96 Nasal Cannula 3.00 06/09/19 08:08 97.8 64 18 113/66 (82) 93 High Flow N/C 06/09/19 08:00 High Flow N/C 3.00 I & O 06/10/19 07:00 Intake Total 1830 ml Output Total 4300 ml Balance -2470 ml Height & Weight Height: 6'2.00" Weight: 223lbs. 0.8oz. 101.161921pb; 28.1 BMI Method:Stated General Appearance: No Apparent Distress, WD/WN HEENT: PERRL/EOMI, Normal ENT Inspection, Pharynx Normal Neck: Full Range of Motion, Non Tender, Supple Respiratory: Chest Non Tender, No Accessory Muscle Use, No Respiratory Distress, Decreased Breath Sounds Cardiovascular: Regular Rate, Rhythm, No JVD, No Murmur Capillary Refill: Less Than 3 Seconds Gastrointestinal: normal bowel sounds, non tender, soft Extremity: Normal Capillary Refill Neurologic/Psychiatric: Alert, Oriented x3 Skin: Normal Color, Warm/Dry Lymphatic: No Adenopathy Results Lab Laboratory Tests 06/09/19 05:32 06/10/19 06:05 Assessment/Plan Assessment/Plan Sepsis secondary to cellulitis of Right lower leg -Repeat leal cultures and MRSA nasal swab - pending Hypoxia with PNA - improving - regular NC -SVNS -Lasix -- D/C and D/C tariq Metabolic acidosis - resolved Abscess of right toe -surgery is following -Wound care following Renal insufficiency --improving Hx of alcohol use and anxiety Neuropathy Tobacco use -Education CYNTHIA BUENROSTRO DO Jun 10, 2019 07:30
[2019-06-10 08:00] VITALS: BP 121/65
[2019-06-10] MEDS: MAGNESIUM 1 GM/100 ML IVPB 100 ML IV SCH ×2 (08:50→08:51)
[2019-06-10] MEDS: amLODIPine 5 MG (NORVASC) TAB PO SCH (08:51)
[2019-06-10] MEDS: hydrALAZINE (APRESOLINE) 25 MG TAB PO SCH ×3 (08:51→22:12)
[2019-06-10] MEDS: CLOPIDOGREL 75 MG (PLAVIX) TABLET PO SCH (08:51)
[2019-06-10] MEDS: ATENOLOL 25 MG (TENORMIN) TAB PO SCH ×2 (08:51→22:12)
[2019-06-10] MEDS: ASPIRIN E.C. 81 MG (ECOTRIN) TAB PO SCH (08:52)
[2019-06-10] MEDS: SENNA W/DOCUSATE (SENOKOT S) TABLET PO SCH ×2 (08:59→21:00)
[2019-06-10] MEDS: DAKIN'S 1/4 STRENGTH (0.125%) 473 ML BTL TOP SCH ×2 (08:59→21:00)
--- NOTE | 2019-06-10 10:14 | Cardiology Progress Note ---
Subjective Date Seen by Provider: Jun 10, 2019 Time Seen by Provider: 10:10 Subjective/Events-last exam Patient is in bed, feeling better, no new complaint, no chest pain or shortness of breath Review of Systems General: No Chills, No Night Sweats, No Fatigue, No Malaise, No Appetite, No Ot her HEENT: No Head Aches, No Visual Changes, No Eye Pain, No Ear Pain, No Dysp hasia, No Sinus Congestion, No Post Nasal Drip, No Sore Throat, No Other Pulmonary: No Dyspnea, No Cough, No Pleuritic Chest Pain, No Other Cardiovascular: No: Chest Pain, Palpitations, Orthopnea, Paroxysmal Noc. Dyspnea, Edema, Lt Headedness, Other Objective-Cardiology Exam Last Set of Vital Signs Vital Signs 06/08/19 06/10/19 08:00 08:00 Temp 97.3 Pulse 76 Resp 18 B/P (MAP) 121/65 (83) Pulse Ox 95 O2 Delivery High Flow N/C O2 Flow Rate 2.00 FiO2 40 Capillary Refill : Less Than 3 SecondsLess Than 3 Seconds I&O Intake and Output 06/10/19 00:00 Intake Total 1430 ml Output Total 4250 ml Balance -2820 ml Intake Oral 1430 ml Output Urine Total 4250 ml # Bowel Movements 1 General: Alert, Oriented X3, Cooperative, No Acute Distress HEENT: Atraumatic, PERRLA Neck: Supple Lungs: Clear to Auscultation, Normal Air Movement Heart: Regular Rate, Normal S1, Normal S2, No Murmurs Abdomen: Normal Bowel Sounds Extremities: No Clubbing Skin: Other (Ulcer on right toe) Neuro: Normal Speech, Normal Tone Psych/Mental Status: Mental Status NL, Mood NL Results Lab Laboratory Tests 06/10/19 06:05 A/P-Cardiology Admission Diagnosis Cellulitis Shortness of breath Hypertension Acute renal insufficiency Assessment/Plan Right great toe cellulitis with abscess, nonhealing ulcer, status post debridement, no significant peripheral arterial disease per angiogram on May 28, [address] Hansen. Continue to monitor Hypertension, controlled, monitor blood pressure Shortness of breath, multifactorial, reporting improvement, currently not actively dyspneic. Acute renal insufficiency, probably secondary to aggressive diuresis. [place] was discontinued today, stop Lasix and monitor History of acute diastolic heart failure, compensated at this time. Tobaccoism, educated on smoking cessation Clinical Quality Measures DVT/VTE Risk/Contraindication: Risk Factor Score Per Nursin RFS Level Per Nursing on Admit: 2=Moderate Contraindications-[place]: Other *list below* Other: cellulitis ALEXIA FAIRCHILD MD Jun 10, 2019 10:14
--- NOTE | 2019-06-10 16:21 | Progress Note - Hospitalist ---
Progress Note Progress Notes/Assess & Plan Date Seen 06/10/19 Time Seen by Provider: 16:19 Assessment & Plan The patient reports he continues to feel better and have a bit more energy. He has been walking in the halls. He is hoping that he will be able to return home soon. 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 Physical exam: He is alert oriented. Lungs are clear to auscultation. CV is regular without murmur. Vital signs are stable. Impression: Peripheral neuropathy. 2.cellulitis great toe. 3.secondary pneumonia with respiratory insufficiency. TRACY MAGANA MD Jun 10, 2019 16:21
[2019-06-10 16:26] VITALS: BP 123/72
[2019-06-10] MEDS: ENOXAPARIN 40 MG/0.4 ML (LOVENOX) SYR SC SCH (17:05)
[2019-06-10] MEDS: LORazepam 1 MG (ATIVAN) TAB PO PRN (22:17)
[2019-06-11 00:22] VITALS: BP 122/73
[2019-06-11] MEDS: RT-ALBUTEROL/IPRATROPIUM 3 ML (DUONEB) VIAL INH SCH ×3 (02:36→06:42)
[2019-06-11 06:16] LABS: BASOPHILS % (AUTO) 0 % (0-10); EOSINOPHILS # (AUTO) 0.5 10^3/uL (0.0-0.3); EOSINOPHILS % (AUTO) 5 % (0-10); HEMATOCRIT 33 % (40-54); HEMOGLOBIN 10.7 G/DL (13.3-17.7); LYMPHOCYTES # (AUTO) 1.7 X 10^3 (1.0-4.0); LYMPHOCYTES % (AUTO) 16 % (12-44); MEAN CORPUSCULAR HEMOGLOBIN 36 PG (25-34); MEAN CORPUSCULAR HGB CONC 32 G/DL (32-36); MEAN CORPUSCULAR VOLUME 110 FL (80-99); MEAN PLATELET VOLUME 10.5 FL (7.4-10.4); MONOCYTES # (AUTO) 1.1 X 10^3 (0.0-1.0); MONOCYTES % (AUTO) 11 % (0-12); NEUTROPHILS % (AUTO) 68 % (42-75); PLATELET COUNT 325 10^3/uL (130-400); RED CELL DISTRIBUTION WIDTH 16.4 % (10.0-14.5); WHITE BLOOD COUNT 10.4 10^3/uL (4.3-11.0)
[2019-06-11] MEDS: LACTOBACILLUS ACIDOPHILUS (PROBIOTIC) CAPSULE PO SCH ×2 (06:22→11:12)
[2019-06-11 06:38] LABS: CALCIUM 9.3 MG/DL (8.5-10.1); CREATININE SERUM 2.03 MG/DL (0.60-1.30); MAGNESIUM 1.9 MG/DL (1.8-2.4); POTASSIUM 4.2 MMOL/L (3.6-5.0)
[2019-06-11 08:00] VITALS: BP 116/68
[2019-06-11] MEDS: CLOPIDOGREL 75 MG (PLAVIX) TABLET PO SCH (09:09)
[2019-06-11] MEDS: DAKIN'S 1/4 STRENGTH (0.125%) 473 ML BTL TOP SCH (09:09)
[2019-06-11] MEDS: ATENOLOL 25 MG (TENORMIN) TAB PO SCH (09:09)
[2019-06-11] MEDS: amLODIPine 5 MG (NORVASC) TAB PO SCH (09:09)
[2019-06-11] MEDS: hydrALAZINE (APRESOLINE) 25 MG TAB PO SCH ×2 (09:09→13:04)
[2019-06-11] MEDS: ASPIRIN E.C. 81 MG (ECOTRIN) TAB PO SCH (09:10)
[2019-06-11] MEDS: SENNA W/DOCUSATE (SENOKOT S) TABLET PO SCH (09:10)
--- NOTE | 2019-06-11 10:20 | Pulmonary Progress Note ---
Subjective Time Seen by a Provider: 06:00 Subjective/Events-last exam PT is feeling better. He is now on RA oxygen. Sepsis Event Evaluation Height, Weight, BMI Height: 6'2.00" Weight: 220lbs. 8.8oz. 100.535597cb; 28.1 BMI Method:Stated Exam Exam Vital Signs Date Time Temp Pulse Resp B/P (MAP) Pulse Ox O2 Delivery O2 Flow Rate FiO2 06/11/19 08:00 Room Air 2.00 06/11/19 08:00 98.9 80 18 116/68 (84) 93 High Flow N/C 2.00 06/11/19 06:42 92 Room Air 06/11/19 02:29 72 14 93 21.00 06/11/19 00:22 97.6 80 19 122/73 (89) 95 NIV Bilevel 21.00 06/11/19 00:11 78 20 98 21.00 06/10/19 22:44 95 Room Air 06/10/19 20:00 94 Room Air 2.00 06/10/19 19:33 94 Room Air 06/10/19 16:26 98.6 72 19 123/72 (89) 97 Room Air 06/10/19 15:12 95 Room Air 06/10/19 11:11 97 Nasal Cannula 2.00 I & O 06/11/19 07:00 Intake Total 2840 ml Output Total 1750 ml Balance 1090 ml Height & Weight Height: 6'2.00" Weight: 220lbs. 8.8oz. 100.033390bs; 28.1 BMI Method:Stated General Appearance: No Apparent Distress, WD/WN HEENT: PERRL/EOMI, Normal ENT Inspection, Pharynx Normal Neck: Full Range of Motion, Non Tender, Supple Respiratory: No Accessory Muscle Use, No Respiratory Distress, Crackles, Decreased Breath Sounds Cardiovascular: Regular Rate, Rhythm, No Edema Capillary Refill: Less Than 3 Seconds Gastrointestinal: normal bowel sounds, non tender, soft Extremity: Normal Capillary Refill, No Pedal Edema Neurologic/Psychiatric: Alert, Oriented x3 Skin: Normal Color, Warm/Dry Lymphatic: No Adenopathy Results Lab Laboratory Tests 06/10/19 06:05 06/11/19 06:00 Assessment/Plan Assessment/Plan Sepsis secondary to cellulitis of Right lower leg -Repeat leal cultures and MRSA nasal swab - pending Hypoxia with PNA - improving - regular NC -SVNS -Lasix -- D/C Metabolic acidosis - resolved Abscess of right toe -surgery is following -Wound care following Renal insufficiency --improving Hx of alcohol use and anxiety Neuropathy Tobacco use -Education CYNTHIA BUENROSTRO DO Jun 11, 2019 10:20
--- NOTE | 2019-06-11 10:52 | Physical Therapy Progress Note ---
Therapy Progress Note Patient is up independently in hallway without O2 with SAO2 >90% RA. Patient declined continued PT due to he is currently at OF with all gross motor skills. JENNA OWUSU PT Jun 11, 2019 10:52
--- NOTE | 2019-06-11 11:02 | NUR ---
HOME O2 QUALIFICATION DOCUMENTATION.
[2019-06-11] MEDS ORDERED: IPRA3AMP31 INH (11:12)
[2019-06-11] MEDS ORDERED: CLOP75TA28 PO (11:12)
[2019-06-11] MEDS ORDERED: AMLO5TAB9 PO (11:12)
[2019-06-11] MEDS ORDERED: ATEN25TA PO (11:12)
[2019-06-11] MEDS ORDERED: ASPI-983 PO (11:12)
[2019-06-11] MEDS ORDERED: HYDR-3923 PO (11:12)
--- NOTE | 2019-06-11 11:17 | Discharge Summary ---
Diagnosis/Chief Complaint Date of Admission May 24, 2019 at 16:00 Date of Discharge Discharge Date: Jun 11, 2019 Discharge Diagnosis Assessment: Acute respiratory insufficiency requiring Vapotherm and IV steroids and biPAP but improving but may need LTAC Acute exacerbation of COPD Bilateral infiltrates multi-lobar placed on O2 and Meropenem and DC Zosyn Hypoxia ARF Volume overload acute s/p Sepsis Right great toe ulceration with abscess and severe cellulitis rising up into the leg now resolving Severe neuropathy Alcoholism with withdrawal now resolved Smoker with small vessel disease cessation currently Hypertension OOC due to withdrawal now resolved Anxiety PVD ruled out with normal angiogram Metabolic acidosis s/p bicarb drip now DC Plan: IV Lasix per Dr Aleman Empiric antibiotic of Meropenem for pneumonia multi-lobar Appreciate Dr. Christie and Dr. Gutiérrez and Dr Hansen and Dr Aleman Very complex case and may ultimately require ICU transfer if hypoxia worsens IV steroids If anything worsens he will be transferred to ICU for BiPAP and ventilation but appears less likely IRF? [place]? Discharge Summary Discharge Physical Examination Allergies: Coded Allergies: No Known Drug Allergies (Unverified , 05/24/19) Vitals & I&Os Vital Signs Date Time Temp Pulse Resp B/P (MAP) Pulse Ox O2 Delivery O2 Flow Rate FiO2 06/11/19 13:25 06/11/19 11:00 92 Room Air 06/11/19 08:00 2.00 06/11/19 08:00 98.9 80 18 06/08/19 08:00 40 General Appearance: Alert, Oriented X3, Cooperative HEENT: Atraumatic, PERRLA Respiratory: Clear to Auscultation, Normal Air Movement Cardiovascular: Regular Rate, Normal S1, Normal S2 Neuro: Normal Gait, Normal Speech, Strength at 5/5 X4 Ext Psych/Mental Status: Mental Status NL, Mood NL Hospital Course Was the Problem List Reviewed?: Yes Hospital course: Patient had a very complex and lengthy hospital course after he was admitted for right great toe abscess and cellulitis requiring empiric antibiotics and general surgery along with wound care along with vascular evaluation consultations. He underwent florid detox withdrawal from heavy alcohol use for many years in addition to smoking cessation withdrawal requiring multiple meds to manage and stabilize. He underwent vascular study of arterial ultrasound revealing abnormality so he underwent angiogram revealing no evidence of any significant stenosis. The right great toe improved but he began having shortness of breath and respiratory insufficiency requiring pulmonary consultation and chest x-ray CT scan reveals multilobar pneumonia requiring meropenem and noted to have elevated creatinine with acute renal failure nonoliguric type requiring aggressive IV fluid resuscitation and bicarb drip for metabolic acidosis. Patient underwent diuresis but required BiPAP and Vapotherm for many days finally weaning off and improving dramatically and meeting criteria for discharge. He was placed on multiple blood pressure medications to the entire hospital course and all discharge meds were reviewed and patient was discharged in improved condition after 18 days of hospital stay. Labs (last 24 hrs) Laboratory Tests 05/24/19 18:25: White Blood Count 6.7, Red Blood Count 3.85L, Hemoglobin 14.8, Hematocrit 41, Mean Corpuscular Volume 108H, Mean Corpuscular Hemoglobin 38H, Mean Corpuscular Hemoglobin Concent 36, Red Cell Distribution Width 15.6H, Platelet Count 246, Mean Platelet Volume 9.5, Neutrophils (%) (Auto) 53, Lymphocytes (%) (Auto) 33, Monocytes (%) (Auto) 10, Eosinophils (%) (Auto) 4, Basophils (%) (Auto) 1, Neutrophils # (Auto) 3.6, Lymphocytes # (Auto) 2.2, Monocytes # (Auto) 0.7, Eosinophils # (Auto) 0.3, Basophils # (Auto) 0.0, Erythrocyte Sedimentation Rate 17, Sodium Level 140, Potassium Level 2.8L, Chloride Level 99, Carbon Dioxide Level 28, Anion Gap 13, Blood Urea Nitrogen 6L, Creatinine 0.59L, Estimat Glomerular Filtration Rate > 60, BUN/Creatinine Ratio 10, Glucose Level 98, Lactic Acid Level 2.95*H, Calcium Level 8.6, Corrected Calcium 8.9, Total Bilirubin 0.4, Aspartate Amino Transf (AST/SGOT) 46H, Alanine Aminotransferase (ALT/SGPT) 27, Alkaline Phosphatase 130, C-Reactive Protein High Sensitivity 3.34H, Total Protein 6.7, Albumin 3.6, Serum Alcohol 28H 05/24/19 20:20: Urine Color AMBERH, Urine Clarity CLEAR, Urine pH 5, Urine Specific [place] 1.025H, Urine Protein 1+H, Urine Glucose (UA) NEGATIVE, Urine Ketones NEGATIVE, Urine Nitrite NEGATIVE, Urine Bilirubin NEGATIVE, Urine Urobilinogen NORMAL, Urine Leukocyte Esterase NEGATIVE, Urine RBC (Auto) NEGATIVE, Urine RBC NONE, Urine WBC NONE, Urine Squamous Epithelial Cells 0-2, Urine Crystals NONE, Urine Bacteria NEGATIVE, Urine Casts PRESENT, Urine Hyaline Casts 2-5H, Urine Mucus MODERATEH, Urine Culture Indicated NO 05/24/19 20:43: Lactic Acid Level 2.00 05/25/19 06:05: White Blood Count 6.0, Red Blood Count 3.52L, Hemoglobin 13.8, Hematocrit 38L, Mean Corpuscular Volume 107H, Mean Corpuscular Hemoglobin 39H, Mean Corpuscular Hemoglobin Concent 37H, Red Cell Distribution Width 15.7H, Platelet Count 209, Mean Platelet Volume 9.2, Neutrophils (%) (Auto) 63, Lymphocytes (%) (Auto) 24, Monocytes (%) (Auto) 10, Eosinophils (%) (Auto) 3, Basophils (%) (Auto) 1, Neutrophils # (Auto) 3.7, Lymphocytes # (Auto) 1.4, Monocytes # (Auto) 0.6, Eosinophils # (Auto) 0.2, Basophils # (Auto) 0.0, Sodium Level 142, Potassium Level 2.7L, Chloride Level 104, Carbon Dioxide Level 26, Anion Gap 12, Blood Urea Nitrogen 6L, Creatinine 0.61, Estimat Glomerular Filtration Rate > 60, BUN/Creatinine Ratio 10, Glucose Level 103, Calcium Level 8.0L, Corrected Calcium 8.7, Total Bilirubin 0.7, Aspartate Amino Transf (AST/SGOT) 34, Alanine Aminotransferase (ALT/SGPT) 22, Alkaline Phosphatase 116, Total Protein 5.9L, Albumin 3.1L 05/25/19 18:17: Vancomycin Level Trough 15.4 05/27/19 05:22: White Blood Count 10.7, Red Blood Count 3.50L, Hemoglobin 13.4, Hematocrit 37L, Mean Corpuscular Volume 106H, Mean Corpuscular Hemoglobin 38H, Mean Corpuscular Hemoglobin Concent 36, Red Cell Distribution Width 15.7H, Platelet Count 177, Mean Platelet Volume 9.5, Neutrophils (%) (Auto) 76H, Lymphocytes (%) (Auto) 12, Monocytes (%) (Auto) 9, Eosinophils (%) (Auto) 2, Basophils (%) (Auto) 1, Neutrophils # (Auto) 8.2H, Lymphocytes # (Auto) 1.3, Monocytes # (Auto) 1.0, Eosinophils # (Auto) 0.2, Basophils # (Auto) 0.1, Sodium Level 139, Potassium Level 2.6L, Chloride Level 105, Carbon Dioxide Level 22, Anion Gap 12, Blood Urea Nitrogen 6L, Creatinine 0.92, Estimat Glomerular Filtration Rate > 60, BUN/Creatinine Ratio 7, Glucose Level 106H, Calcium Level 7.8L, Corrected Calcium 8.5, Magnesium Level 1.3L, Total Bilirubin 1.3H, Aspartate Amino Transf (AST/SGOT) 27, Alanine Aminotransferase (ALT/SGPT) 17, Alkaline Phosphatase 92, Total Protein 5.9L, Albumin 3.1L 05/28/19 05:40: White Blood Count 10.6, Red Blood Count 3.41L, Hemoglobin 12.9L, Hematocrit 37L, Mean Corpuscular Volume 109H, Mean Corpuscular Hemoglobin 38H, Mean Corpuscular Hemoglobin Concent 35, Red Cell Distribution Width 15.5H, Platelet Count 161, Mean Platelet Volume 9.5, Neutrophils (%) (Auto) 76H, Lymphocytes (%) (Auto) 11L , Monocytes (%) (Auto) 11, Eosinophils (%) (Auto) 2, Basophils (%) (Auto) 0, Neutrophils # (Auto) 8.0H, Lymphocytes # (Auto) 1.2, Monocytes # (Auto) 1.2H, Eosinophils # (Auto) 0.2, Basophils # (Auto) 0.0, Sodium Level 140, Potassium Level 2.7L, Chloride Level 106, Carbon Dioxide Level 21, Anion Gap 13, Blood Urea Nitrogen 8, Creatinine 1.22, Estimat Glomerular Filtration Rate > 60, BUN/Creatinine Ratio 7, Glucose Level 100, Calcium Level 8.1L, Corrected Calcium 9.0, Magnesium Level 1.3L, Total Bilirubin 1.6H, Aspartate Amino Transf (AST/SGOT) 26, Alanine Aminotransferase (ALT/SGPT) 14, Alkaline Phosphatase 85, Total Protein 5.7L, Albumin 2.9L 05/28/19 18:10: Vancomycin Level Trough 41.2*H 05/29/19 05:47: White Blood Count 10.8, Red Blood Count 3.26L, Hemoglobin 12.3L, Hematocrit 36L, Mean Corpuscular Volume 110H, Mean Corpuscular Hemoglobin 38H, Mean Corpuscular Hemoglobin Concent 34, Red Cell Distribution Width 15.7H, Platelet Count 156, Mean Platelet Volume 10.1, Neutrophils (%) (Auto) 78H, Lymphocytes (%) (Auto) 8L , Monocytes (%) (Auto) 11, Eosinophils (%) (Auto) 3, Basophils (%) (Auto) 1, Neutrophils # (Auto) 8.4H, Lymphocytes # (Auto) 0.9L, Monocytes # (Auto) 1.2H, Eosinophils # (Auto) 0.3, Basophils # (Auto) 0.1, Sodium Level 137, Potassium Level 3.0L, Chloride Level 108H, Carbon Dioxide Level 18L, Anion Gap 11, Blood Urea Nitrogen 13, Creatinine 2.33H, Estimat Glomerular Filtration Rate 29, BUN/Creatinine Ratio 6, Glucose Level 113H, Calcium Level 8.0L, Corrected Calcium 9.0, Magnesium Level 2.1, Total Bilirubin 0.8, Aspartate Amino Transf (AST/SGOT) 29, Alanine Aminotransferase (ALT/SGPT) 15, Alkaline Phosphatase 78, Total Protein 5.6L, Albumin 2.8L 05/30/19 06:01: Magnesium Level 1.8, Phosphorus Level 4.6 05/30/19 06:07: White Blood Count 11.8H, Red Blood Count 3.21L, Hemoglobin 12.2L, Hematocrit 35L , Mean Corpuscular Volume 110H, Mean Corpuscular Hemoglobin 38H, Mean Corpuscular Hemoglobin Concent 35, Red Cell Distribution Width 15.5H, Platelet Count 206, Mean Platelet Volume 9.7, Neutrophils (%) (Auto) 82H, Lymphocytes (%) (Auto) 7L, Monocytes (%) (Auto) 9, Eosinophils (%) (Auto) 1, Basophils (%) (Auto) 1, Neutrophils # (Auto) 9.7H, Lymphocytes # (Auto) 0.9L, Monocytes # (Auto) 1.0, Eosinophils # (Auto) 0.2, Basophils # (Auto) 0.1, Sodium Level 139, Potassium Level 3.3L, Chloride Level 110H, Carbon Dioxide Level 16L, Anion Gap 13, Blood Urea Nitrogen 17, Creatinine 2.81#H, Estimat Glomerular Filtration Rate 23, BUN/Creatinine Ratio 6, Glucose Level 108H, Calcium Level 8.5, Corrected Calcium 9.3, Total Bilirubin 1.0, Aspartate Amino Transf (AST/SGOT) 31, Alanine Aminotransferase (ALT/SGPT) 16, Alkaline Phosphatase 80, Total Protein 6.1L, Albumin 3.0L, Neutrophils % (Manual) 85, Lymphocytes % (Manual) 7, Band Neutrophils 8, Macrocytosis MODERATE, B-Type Natriuretic Peptide 1028.0H 05/30/19 06:27: Blood Gas Puncture Site RIGHT RADIAL, Blood Gas Patient Temperature 99.4, Arterial Blood pH 7.40, Arterial Blood Partial Pressure CO2 29L, Arterial Blood Partial Pressure O2 62L, Arterial Blood HCO3 18L, Arterial Blood Total CO2 18.3L , Arterial Blood Oxygen Saturation 92L, Arterial Blood Base Excess -6.3L, [place] Test POSITIVE, Blood Gas Ventilator Setting NO, Blood Gas Inspired Oxygen 2 05/30/19 08:02: Lactic Acid Level 0.83 05/30/19 09:15: Urine Color YELLOW, Urine Clarity CLEAR, Urine pH 5, Urine Specific [place] 1.010L, Urine Protein 2+H, Urine Glucose (UA) NEGATIVE, Urine Ketones NEGATIVE, Urine Nitrite NEGATIVE, Urine Bilirubin NEGATIVE, Urine Urobilinogen NORMAL, Urine Leukocyte Esterase NEGATIVE, Urine RBC (Auto) 2+H, Urine RBC 10-25H, Urine WBC RARE, Urine Squamous Epithelial Cells RARE, Urine Crystals NONE, Urine Bacteria TRACE, Urine Casts NONE, Urine Mucus NEGATIVE, Urine Culture Indicated NO 05/31/19 05:00: White Blood Count 11.5H, Red Blood Count 3.17L, Hemoglobin 11.8L, Hematocrit 35L , Mean Corpuscular Volume 111H, Mean Corpuscular Hemoglobin 37H, Mean Corpuscular Hemoglobin Concent 33, Red Cell Distribution Width 15.9H, Platelet Count 267, Mean Platelet Volume 10.4, Neutrophils (%) (Auto) 74, Lymphocytes (%) (Auto) 11L, Monocytes (%) (Auto) 11, Eosinophils (%) (Auto) 4, Basophils (%) (Auto) 1, Neutrophils # (Auto) 8.5H, Lymphocytes # (Auto) 1.2, Monocytes # (Auto) 1.3H, Eosinophils # (Auto) 0.4H, Basophils # (Auto) 0.1 05/31/19 06:00: Sodium Level 140, Potassium Level 3.3L, Chloride Level 110H, Carbon Dioxide Level 16L, Anion Gap 14, Blood Urea Nitrogen 20H, Creatinine 2.75H, Estimat Glomerular Filtration Rate 24, BUN/Creatinine Ratio 7, Glucose Level 107H, Calcium Level 8.6, Corrected Calcium 9.4, Phosphorus Level 4.0, Magnesium Level 1.6L, Total Bilirubin 0.6, Aspartate Amino Transf (AST/SGOT) 31, Alanine Aminotransferase (ALT/SGPT) 20, Alkaline Phosphatase 86, Total Protein 6.3L, Albumin 3.0L 05/31/19 12:01: Lactic Acid Level 0.76 06/01/19 06:10: White Blood Count 10.6, Red Blood Count 3.20L, Hemoglobin 12.1L, Hematocrit 35L, Mean Corpuscular Volume 110H, Mean Corpuscular Hemoglobin 38H, Mean Corpuscular Hemoglobin Concent 34, Red Cell Distribution Width 15.9H, Platelet Count 297, Mean Platelet Volume 10.1, Neutrophils (%) (Auto) 74, Lymphocytes (%) (Auto) 11L , Monocytes (%) (Auto) 10, Eosinophils (%) (Auto) 5, Basophils (%) (Auto) 1, Neutrophils # (Auto) 7.8, Lymphocytes # (Auto) 1.2, Monocytes # (Auto) 1.1H, Eosinophils # (Auto) 0.5H, Basophils # (Auto) 0.1, Sodium Level 141, Potassium Level 3.9, Chloride Level 109H, Carbon Dioxide Level 17L, Anion Gap 15H, Blood Urea Nitrogen 21H, Creatinine 2.31H, Estimat Glomerular Filtration Rate 29, BUN/Creatinine Ratio 9, Glucose Level 107H, Calcium Level 8.9, Phosphorus Level 3.3, Magnesium Level 2.0 06/01/19 07:23: Blood Gas Puncture Site LT RAD, Blood Gas Patient Temperature 98.2, Arterial Blood pH 7.43, Arterial Blood Partial Pressure CO2 33L, Arterial Blood Partial Pressure O2 60L, Arterial Blood HCO3 22L, Arterial Blood Total CO2 22.9, Arterial Blood Oxygen Saturation 93L, Arterial Blood Base Excess -1.8, [place] Test YES-POS, Blood Gas Ventilator Setting NO, Blood Gas Inspired Oxygen 4 L 06/02/19 04:53: White Blood Count 9.2, Red Blood Count 3.22L, Hemoglobin 12.0L, Hematocrit 36L, Mean Corpuscular Volume 113H, Mean Corpuscular Hemoglobin 37H, Mean Corpuscular Hemoglobin Concent 33, Red Cell Distribution Width 15.9H, Platelet Count 308, Mean Platelet Volume 9.8, Neutrophils (%) (Auto) 67, Lymphocytes (%) (Auto) 14, Monocytes (%) (Auto) 13H, Eosinophils (%) (Auto) 5, Basophils (%) (Auto) 1, Neutrophils # (Auto) 6.2, Lymphocytes # (Auto) 1.3, Monocytes # (Auto) 1.2H, Eosinophils # (Auto) 0.5H, Basophils # (Auto) 0.1, Sodium Level 140, Potassium Level 3.7, Chloride Level 108H, Carbon Dioxide Level 19L, Anion Gap 13, Blood Urea Nitrogen 21H, Creatinine 2.29H, Estimat Glomerular Filtration Rate 30, BUN/Creatinine Ratio 9, Glucose Level 118H, Calcium Level 8.5, Phosphorus Level 3.1, Magnesium Level 1.6L 06/03/19 05:15: White Blood Count 14.6H, Red Blood Count 3.12L, Hemoglobin 11.4L, Hematocrit 35L , Mean Corpuscular Volume 112H, Mean Corpuscular Hemoglobin 37H, Mean C orpuscular Hemoglobin Concent 33, Red Cell Distribution Width 15.8H, Platelet Count 362, Mean Platelet Volume 10.2, Neutrophils (%) (Auto) 88H, Lymphocytes (%) (Auto) 6L, Monocytes (%) (Auto) 5, Eosinophils (%) (Auto) 0, Basophils (%) (Auto) 0, Neutrophils # (Auto) 12.9H, Lymphocytes # (Auto) 0.9L, Monocytes # (Auto) 0.8, Eosinophils # (Auto) 0.0, Basophils # (Auto) 0.0, Sodium Level 141, Potassium Level 4.6, Chloride Level 105, Carbon Dioxide Level 22, Anion Gap 14, Blood Urea Nitrogen 29H, Creatinine 2.22H, Estimat Glomerular Filtration Rate 31, BUN/Creatinine Ratio 13, Glucose Level 154H, Calcium Level 9.0, Magnesium Level 2.1 06/03/19 09:41: Phosphorus Level 4.3 06/04/19 04:45: Sodium Level 140, Potassium Level 4.8, Chloride Level 105, Carbon Dioxide Level 22, Anion Gap 13, Blood Urea Nitrogen 40H, Creatinine 2.33H, Estimat Glomerular Filtration Rate 29, BUN/Creatinine Ratio 17, Glucose Level 135H, Calcium Level 9.1, Magnesium Level 2.1 06/04/19 05:10: White Blood Count 15.5H, Red Blood Count 2.95L, Hemoglobin 11.0L, Hematocrit 33L , Mean Corpuscular Volume 113H, Mean Corpuscular Hemoglobin 37H, Mean Corpuscular Hemoglobin Concent 33, Red Cell Distribution Width 16.0H, Platelet Count 354, Mean Platelet Volume 10.3, Neutrophils (%) (Auto) 87H, Lymphocytes (%) (Auto) 7L, Monocytes (%) (Auto) 6, Eosinophils (%) (Auto) 0, Basophils (%) (Auto) 0, Neutrophils # (Auto) 13.5H, Lymphocytes # (Auto) 1.1, Monocytes # (Auto) 0.9, Eosinophils # (Auto) 0.0, Basophils # (Auto) 0.0 06/04/19 09:55: Phosphorus Level 4.6 06/04/19 10:00: Stool Occult Blood Immunoassay NEGATIVE 06/05/19 06:10: Phosphorus Level 5.1H, White Blood Count 14.6H, Red Blood Count 3.04L, Hemoglobin 11.3L, Hematocrit 34L, Mean Corpuscular Volume 113H, Mean Corpuscular Hemoglobin 37H, Mean Corpuscular Hemoglobin Concent 33, Red Cell Distribution Width 16.3H, Platelet Count 380, Mean Platelet Volume 10.3, Neutrophils (%) (Auto) 86H, Lymphocytes (%) (Auto) 7L, Monocytes (%) (Auto) 6, Eosinophils (%) (Auto) 0, Basophils (%) (Auto) 0, Neutrophils # (Auto) 12.6H, Lymphocytes # (Auto) 1.1, Monocytes # (Auto) 0.9, Eosinophils # (Auto) 0.0, Basophils # (Auto) 0.0, Sodium Level 139, Potassium Level 5.5H, Chloride Level 106, Carbon Dioxide Level 19L, Anion Gap 14, Blood Urea Nitrogen 50H, Creatinine 2.15H, Estimat Glomerular Filtration Rate 32, BUN/Creatinine Ratio 23, Glucose Level 128H, Calcium Level 9.0, Magnesium Level 2.0 06/05/19 15:24: Phosphorus Level 4.2, Sodium Level 140, Potassium Level 5.5H, Chloride Level 106, Carbon Dioxide Level 21, Anion Gap 13, Blood Urea Nitrogen 53H, Creatinine 2.08H, Estimat Glomerular Filtration Rate 33, BUN/Creatinine Ratio 25, Glucose Level 150H, Calcium Level 8.9, Magnesium Level 2.0, B-Type Natriuretic Peptide 1078.9H 06/06/19 04:55: White Blood Count 12.0H, Red Blood Count 2.86L, Hemoglobin 10.5L, Hematocrit 32L , Mean Corpuscular Volume 112H, Mean Corpuscular Hemoglobin 37H, Mean Corpuscular Hemoglobin Concent 33, Red Cell Distribution Width 15.8H, Platelet Count 309, Mean Platelet Volume 10.5H, Neutrophils (%) (Auto) 87H, Lymphocytes (%) (Auto) 7L, Monocytes (%) (Auto) 6, Eosinophils (%) (Auto) 0, Basophils (%) (Auto) 0, Neutrophils # (Auto) 10.4H, Lymphocytes # (Auto) 0.9L, Monocytes # (Auto) 0.7, Eosinophils # (Auto) 0.0, Basophils # (Auto) 0.0, Neutrophils % (Manual) 86, Lymphocytes % (Manual) 11, Monocytes % (Manual) 3, Macrocytosis MODERATE, Sodium Level 141, Potassium Level 5.4H, Chloride Level 108H, Carbon Dioxide Level 21, Anion Gap 12, Blood Urea Nitrogen 59H, Creatinine 2.04H, Estimat Glomerular Filtration Rate 34, BUN/Creatinine Ratio 29, Glucose Level 132H, Calcium Level 8.7, Corrected Calcium 9.4, Phosphorus Level 5.1H, Magnesium Level 1.9, Total Bilirubin 0.3, Aspartate Amino Transf (AST/SGOT) 53H, Alanine Aminotransferase (ALT/SGPT) 44, Alkaline Phosphatase 71, Total Protein 5.9L, Albumin 3.1L 06/07/19 05:59: White Blood Count 15.3H, Red Blood Count 3.00L, Hemoglobin 10.9L, Hematocrit 33L , Mean Corpuscular Volume 110H, Mean Corpuscular Hemoglobin 36H, Mean Corpuscular Hemoglobin Concent 33, Red Cell Distribution Width 15.8H, Platelet Count 329, Mean Platelet Volume 10.2, Neutrophils (%) (Auto) 88H, Lymphocytes (%) (Auto) 6L, Monocytes (%) (Auto) 6, Eosinophils (%) (Auto) 0, Basophils (%) (Auto) 0, Neutrophils # (Auto) 13.4H, Lymphocytes # (Auto) 0.9L, Monocytes # (Auto) 1.0, Eosinophils # (Auto) 0.0, Basophils # (Auto) 0.0, Sodium Level 139, Potassium Level 5.1H, Chloride Level 105, Carbon Dioxide Level 21, Anion Gap 13, Blood Urea Nitrogen 61H, Creatinine 1.90H, Estimat Glomerular Filtration Rate 37, BUN/Creatinine Ratio 32, Glucose Level 129H, Calcium Level 8.8, Phosphorus Level 5.1H, Magnesium Level 1.7L 06/08/19 05:11: White Blood Count 14.5H, Red Blood Count 2.87L, Hemoglobin 10.4L, Hematocrit 31L , Mean Corpuscular Volume 109H, Mean Corpuscular Hemoglobin 36H, Mean Corpuscular Hemoglobin Concent 33, Red Cell Distribution Width 15.7H, Platelet Count 311, Mean Platelet Volume 10.5H, Neutrophils (%) (Auto) 84H, Lymphocytes (%) (Auto) 8L, Monocytes (%) (Auto) 8, Eosinophils (%) (Auto) 0, Basophils (%) (Auto) 0, Neutrophils # (Auto) 12.1H, Lymphocytes # (Auto) 1.1, Monocytes # (Auto) 1.2H, Eosinophils # (Auto) 0.0, Basophils # (Auto) 0.0, Sodium Level 137, Potassium Level 5.1H, Chloride Level 104, Carbon Dioxide Level 23, Anion Gap 10, Blood Urea Nitrogen 63H, Creatinine 1.79H, Estimat Glomerular Filtration Rate 39, BUN/Creatinine Ratio 35, Glucose Level 121H, Calcium Level 8.5, Phosphorus Level 5.0H, Magnesium Level 2.2 06/09/19 05:32: White Blood Count 13.3H, Red Blood Count 3.12L, Hemoglobin 11.4L, Hematocrit 34L , Mean Corpuscular Volume 109H, Mean Corpuscular Hemoglobin 37H, Mean Corpuscular Hemoglobin Concent 34, Red Cell Distribution Width 16.1H, Platelet Count 228, Mean Platelet Volume 10.7H, Neutrophils (%) (Auto) 68, Lymphocytes (%) (Auto) 17, Monocytes (%) (Auto) 13H, Eosinophils (%) (Auto) 2, Basophils (%) (Auto) 0, Neutrophils # (Auto) 9.1H, Lymphocytes # (Auto) 2.3, Monocytes # (Auto) 1.7H, Eosinophils # (Auto) 0.2, Basophils # (Auto) 0.0, Sodium Level 139, Potassium Level 4.5, Chloride Level 105, Carbon Dioxide Level 20L, Anion Gap 14, Blood Urea Nitrogen 60H, Creatinine 1.73H, Estimat Glomerular Filtration Rate 41, BUN/Creatinine Ratio 35, Glucose Level 86, Calcium Level 8.7, Phosphorus Level 4.4, Magnesium Level 2.4 06/10/19 06:05: White Blood Count 9.3, Red Blood Count 2.80L, Hemoglobin 10.3L, Hematocrit 31L, Mean Corpuscular Volume 109H, Mean Corpuscular Hemoglobin 37H, Mean Corpuscular Hemoglobin Concent 34, Red Cell Distribution Width 15.7H, Platelet Count 287, Mean Platelet Volume 10.7H, Neutrophils (%) (Auto) 65, Lymphocytes (%) (Auto) 20, Monocytes (%) (Auto) 11, Eosinophils (%) (Auto) 4, Basophils (%) (Auto) 0, Neutrophils # (Auto) 6.1, Lymphocytes # (Auto) 1.9, Monocytes # (Auto) 1.0, Eosinophils # (Auto) 0.4H, Basophils # (Auto) 0.0, Sodium Level 143, Potassium Level 4.2, Chloride Level 108H, Carbon Dioxide Level 23, Anion Gap 12, Blood Urea Nitrogen 48H, Creatinine 1.78H, Estimat Glomerular Filtration Rate 40, BUN/Creatinine Ratio 27, Glucose Level 94, Calcium Level 8.7, Phosphorus Level 4.3, Magnesium Level 1.6L 06/11/19 06:00: White Blood Count 10.4, Red Blood Count 2.99L, Hemoglobin 10.7L, Hematocrit 33L, Mean Corpuscular Volume 110H, Mean Corpuscular Hemoglobin 36H, Mean Corpuscular Hemoglobin Concent 32, Red Cell Distribution Width 16.4H, Platelet Count 325, Mean Platelet Volume 10.5H, Neutrophils (%) (Auto) 68, Lymphocytes (%) (Auto) 16, Monocytes (%) (Auto) 11, Eosinophils (%) (Auto) 5, Basophils (%) (Auto) 0, Neutrophils # (Auto) 7.0, Lymphocytes # (Auto) 1.7, Monocytes # (Auto) 1.1H, Eosinophils # (Auto) 0.5H, Basophils # (Auto) 0.0, Sodium Level 142, Potassium Level 4.2, Chloride Level 106, Carbon Dioxide Level 23, Anion Gap 13, Blood Urea Nitrogen 43H, Creatinine 2.03H, Estimat Glomerular Filtration Rate 34, BUN/Creatinine Ratio 21, Glucose Level 108H, Calcium Level 9.3, Phosphorus Level 4.0, Magnesium Level 1.9 Microbiology 05/30/19 Blood Culture - Final, Complete No growth 06/04/19 MRSA Screen - Final, Complete MRSA not isolated Pending Labs Microbiology Date/Time Source Procedure Growth Status 05/30/19 08:13 Peripheral Rt Hand Blood Culture - Final No growth Complete 05/30/19 08:07 Peripheral Lt Hand Blood Culture - Final No growth Complete 05/30/19 08:02 Peripheral Lt Ac Blood Culture - Final No growth Complete 05/24/19 18:25 Peripheral Lt Ac Blood Culture - Final No growth Complete 05/24/19 18:18 Peripheral Rt Forearm Blood Culture - Final No growth Complete 06/04/19 08:40 Nasal MRSA Screen - Final MRSA not isolated Complete Laboratory Tests 05/24/19 18:25: White Blood Count 6.7, Red Blood Count 3.85, Hemoglobin 14.8, Hematocrit 41, Mean Corpuscular Volume 108, Mean Corpuscular Hemoglobin 38, Mean Corpuscular Hemoglobin Concent 36, Red Cell Distribution Width 15.6, Platelet Count 246, Mean Platelet Volume 9.5, Neutrophils (%) (Auto) 53, Lymphocytes (%) (Auto) 33, Monocytes (%) (Auto) 10, Eosinophils (%) (Auto) 4, Basophils (%) (Auto) 1, Neutrophils # (Auto) 3.6, Lymphocytes # (Auto) 2.2, Monocytes # (Auto) 0.7, Eosinophils # (Auto) 0.3, Basophils # (Auto) 0.0, Erythrocyte Sedimentation Rate 17, Sodium Level 140, Potassium Level 2.8, Chloride Level 99, Carbon Dioxide Level 28, Anion Gap 13, Blood Urea Nitrogen 6, Creatinine 0.59, Estimat Glomerular Filtration Rate > 60, BUN/Creatinine Ratio 10, Glucose Level 98, Lactic Acid Level 2.95, Calcium Level 8.6, Corrected Calcium 8.9, Total Bilirubin 0.4, Aspartate Amino Transf (AST/SGOT) 46, Alanine Aminotransferase (ALT/SGPT) 27, Alkaline Phosphatase 130, C-Reactive Protein High Sensitivity 3.34, Total Protein 6.7, Albumin 3.6, Serum Alcohol 28 05/24/19 20:20: Urine Color GARRETT, Urine Clarity CLEAR, Urine pH 5, Urine Specific [place] 1.025, Urine Protein 1+, Urine Glucose (UA) NEGATIVE, Urine Ketones NEGATIVE, Urine Nitrite NEGATIVE, Urine Bilirubin NEGATIVE, Urine Urobilinogen NORMAL, Urine Leukocyte Esterase NEGATIVE, Urine RBC (Auto) NEGATIVE, Urine RBC NONE, Urine WBC NONE, Urine Squamous Epithelial Cells 0-2, Urine Crystals NONE, Urine Bacteria NEGATIVE, Urine Casts PRESENT, Urine Hyaline Casts 2-5, Urine Mucus MODERATE, Urine Culture Indicated NO 05/24/19 20:43: Lactic Acid Level 2.00 05/25/19 06:05: White Blood Count 6.0, Red Blood Count 3.52, Hemoglobin 13.8, Hematocrit 38, Mean Corpuscular Volume 107, Mean Corpuscular Hemoglobin 39, Mean Corpuscular Hemoglobin Concent 37, Red Cell Distribution Width 15.7, Platelet Count 209, Mean Platelet Volume 9.2, Neutrophils (%) (Auto) 63, Lymphocytes (%) (Auto) 24, Monocytes (%) (Auto) 10, Eosinophils (%) (Auto) 3, Basophils (%) (Auto) 1, Neutrophils # (Auto) 3.7, Lymphocytes # (Auto) 1.4, Monocytes # (Auto) 0.6, Eosinophils # (Auto) 0.2, Basophils # (Auto) 0.0, Sodium Level 142, Potassium Level 2.7, Chloride Level 104, Carbon Dioxide Level 26, Anion Gap 12, Blood Urea Nitrogen 6, Creatinine 0.61, Estimat Glomerular Filtration Rate > 60, BUN/Creatinine Ratio 10, Glucose Level 103, Calcium Level 8.0, Corrected Calcium 8.7, Total Bilirubin 0.7, Aspartate Amino Transf (AST/SGOT) 34, Alanine Aminotransferase (ALT/SGPT) 22, Alkaline Phosphatase 116, Total Protein 5.9, Albumin 3.1 05/25/19 18:17: Vancomycin Level Trough 15.4 05/27/19 05:22: White Blood Count 10.7, Red Blood Count 3.50, Hemoglobin 13.4, Hematocrit 37, Mean Corpuscular Volume 106, Mean Corpuscular Hemoglobin 38, Mean Corpuscular Hemoglobin Concent 36, Red Cell Distribution Width 15.7, Platelet Count 177, Mean Platelet Volume 9.5, Neutrophils (%) (Auto) 76, Lymphocytes (%) (Auto) 12, Monocytes (%) (Auto) 9, Eosinophils (%) (Auto) 2, Basophils (%) (Auto) 1, Neutrophils # (Auto) 8.2, Lymphocytes # (Auto) 1.3, Monocytes # (Auto) 1.0, Eosinophils # (Auto) 0.2, Basophils # (Auto) 0.1, Sodium Level 139, Potassium Level 2.6, Chloride Level 105, Carbon Dioxide Level 22, Anion Gap 12, Blood Urea Nitrogen 6, Creatinine 0.92, Estimat Glomerular Filtration Rate > 60, BUN/Creat inine Ratio 7, Glucose Level 106, Calcium Level 7.8, Corrected Calcium 8.5, Magnesium Level 1.3, Total Bilirubin 1.3, Aspartate Amino Transf (AST/SGOT) 27, Alanine Aminotransferase (ALT/SGPT) 17, Alkaline Phosphatase 92, Total Protein 5.9, Albumin 3.1 05/28/19 05:40: White Blood Count 10.6, Red Blood Count 3.41, Hemoglobin 12.9, Hematocrit 37, Mean Corpuscular Volume 109, Mean Corpuscular Hemoglobin 38, Mean Corpuscular Hemoglobin Concent 35, Red Cell Distribution Width 15.5, Platelet Count 161, Mean Platelet Volume 9.5, Neutrophils (%) (Auto) 76, Lymphocytes (%) (Auto) 11, Monocytes (%) (Auto) 11, Eosinophils (%) (Auto) 2, Basophils (%) (Auto) 0, Neutrophils # (Auto) 8.0, Lymphocytes # (Auto) 1.2, Monocytes # (Auto) 1.2, Eosinophils # (Auto) 0.2, Basophils # (Auto) 0.0, Sodium Level 140, Potassium Level 2.7, Chloride Level 106, Carbon Dioxide Level 21, Anion Gap 13, Blood Urea Nitrogen 8, Creatinine 1.22, Estimat Glomerular Filtration Rate > 60, BUN/Creatinine Ratio 7, Glucose Level 100, Calcium Level 8.1, Corrected Calcium 9.0, Magnesium Level 1.3, Total Bilirubin 1.6, Aspartate Amino Transf (AST/SGOT) 26, Alanine Aminotransferase (ALT/SGPT) 14, Alkaline Phosphatase 85, Total Protein 5.7, Albumin 2.9 05/28/19 18:10: Vancomycin Level Trough 41.2 05/29/19 05:47: White Blood Count 10.8, Red Blood Count 3.26, Hemoglobin 12.3, Hematocrit 36, Mean Corpuscular Volume 110, Mean Corpuscular Hemoglobin 38, Mean Corpuscular Hemoglobin Concent 34, Red Cell Distribution Width 15.7, Platelet Count 156, Mean Platelet Volume 10.1, Neutrophils (%) (Auto) 78, Lymphocytes (%) (Auto) 8, Monocytes (%) (Auto) 11, Eosinophils (%) (Auto) 3, Basophils (%) (Auto) 1, Neutrophils # (Auto) 8.4, Lymphocytes # (Auto) 0.9, Monocytes # (Auto) 1.2, Eosinophils # (Auto) 0.3, Basophils # (Auto) 0.1, Sodium Level 137, Potassium Level 3.0, Chloride Level 108, Carbon Dioxide Level 18, Anion Gap 11, Blood Urea Nitrogen 13, Creatinine 2.33, Estimat Glomerular Filtration Rate 29, BUN/Creatin ine Ratio 6, Glucose Level 113, Calcium Level 8.0, Corrected Calcium 9.0, Magnesium Level 2.1, Total Bilirubin 0.8, Aspartate Amino Transf (AST/SGOT) 29, Alanine Aminotransferase (ALT/SGPT) 15, Alkaline Phosphatase 78, Total Protein 5.6, Albumin 2.8 05/30/19 06:01: Magnesium Level 1.8, Phosphorus Level 4.6 05/30/19 06:07: White Blood Count 11.8, Red Blood Count 3.21, Hemoglobin 12.2, Hematocrit 35, Mean Corpuscular Volume 110, Mean Corpuscular Hemoglobin 38, Mean Corpuscular Hemoglobin Concent 35, Red Cell Distribution Width 15.5, Platelet Count 206, Mean Platelet Volume 9.7, Neutrophils (%) (Auto) 82, Lymphocytes (%) (Auto) 7, Monocytes (%) (Auto) 9, Eosinophils (%) (Auto) 1, Basophils (%) (Auto) 1, Neutrophils # (Auto) 9.7, Lymphocytes # (Auto) 0.9, Monocytes # (Auto) 1.0, Eosinophils # (Auto) 0.2, Basophils # (Auto) 0.1, Sodium Level 139, Potassium Level 3.3, Chloride Level 110, Carbon Dioxide Level 16, Anion Gap 13, Blood Urea Nitrogen 17, Creatinine 2.81, Estimat Glomerular Filtration Rate 23, BUN/Creatinine Ratio 6, Glucose Level 108, Calcium Level 8.5, Corrected Calcium 9.3, Total Bilirubin 1.0, Aspartate Amino Transf (AST/SGOT) 31, Alanine Aminotransferase (ALT/SGPT) 16, Alkaline Phosphatase 80, Total Protein 6.1, Albumin 3.0, Neutrophils % (Manual) 85, Lymphocytes % (Manual) 7, Band Neutrophils 8, Macrocytosis MODERATE, B-Type Natriuretic Peptide 1028.0 05/30/19 06:27: Blood Gas Puncture Site RIGHT RADIAL, Blood Gas Patient Temperature 99.4, Arterial Blood pH 7.40, Arterial Blood Partial Pressure CO2 29, Arterial Blood Partial Pressure O2 62, Arterial Blood HCO3 18, Arterial Blood Total CO2 18.3, Arterial Blood Oxygen Saturation 92, Arterial Blood Base Excess -6.3, [place] Test POSITIVE, Blood Gas Ventilator Setting NO, Blood Gas Inspired Oxygen 2 05/30/19 08:02: Lactic Acid Level 0.83 05/30/19 09:15: Urine Color YELLOW, Urine Clarity CLEAR, Urine pH 5, Urine Specific [place] 1.010, Urine Protein 2+, Urine Glucose (UA) NEGATIVE, Urine Ketones NEGATIVE, Urine Nitrite NEGATIVE, Urine Bilirubin NEGATIVE, Urine Urobilinogen NORMAL, U rine Leukocyte Esterase NEGATIVE, Urine RBC (Auto) 2+, Urine RBC 10-25, Urine WBC RARE, Urine Squamous Epithelial Cells RARE, Urine Crystals NONE, Urine Bacteria TRACE, Urine Casts NONE, Urine Mucus NEGATIVE, Urine Culture Indicated NO 05/31/19 05:00: White Blood Count 11.5, Red Blood Count 3.17, Hemoglobin 11.8, Hematocrit 35, Mean Corpuscular Volume 111, Mean Corpuscular Hemoglobin 37, Mean Corpuscular Hemoglobin Concent 33, Red Cell Distribution Width 15.9, Platelet Count 267, Mean Platelet Volume 10.4, Neutrophils (%) (Auto) 74, Lymphocytes (%) (Auto) 11, Monocytes (%) (Auto) 11, Eosinophils (%) (Auto) 4, Basophils (%) (Auto) 1, Neutrophils # (Auto) 8.5, Lymphocytes # (Auto) 1.2, Monocytes # (Auto) 1.3, Eosinophils # (Auto) 0.4, Basophils # (Auto) 0.1 05/31/19 06:00: Sodium Level 140, Potassium Level 3.3, Chloride Level 110, Carbon Dioxide Level 16, Anion Gap 14, Blood Urea Nitrogen 20, Creatinine 2.75, Estimat Glomerular Filtration Rate 24, BUN/Creatinine Ratio 7, Glucose Level 107, Calcium Level 8.6, Corrected Calcium 9.4, Phosphorus Level 4.0, Magnesium Level 1.6, Total Bilirubin 0.6, Aspartate Amino Transf (AST/SGOT) 31, Alanine Aminotransferase (ALT/SGPT) 20, Alkaline Phosphatase 86, Total Protein 6.3, Albumin 3.0 05/31/19 12:01: Lactic Acid Level 0.76 06/01/19 06:10: White Blood Count 10.6, Red Blood Count 3.20, Hemoglobin 12.1, Hematocrit 35, Mean Corpuscular Volume 110, Mean Corpuscular Hemoglobin 38, Mean Corpuscular Hemoglobin Concent 34, Red Cell Distribution Width 15.9, Platelet Count 297, Mean Platelet Volume 10.1, Neutrophils (%) (Auto) 74, Lymphocytes (%) (Auto) 11, Monocytes (%) (Auto) 10, Eosinophils (%) (Auto) 5, Basophils (%) (Auto) 1, Neutrophils # (Auto) 7.8, Lymphocytes # (Auto) 1.2, Monocytes # (Auto) 1.1, Eosinophils # (Auto) 0.5, Basophils # (Auto) 0.1, Sodium Level 141, Potassium Level 3.9, Chloride Level 109, Carbon Dioxide Level 17, Anion Gap 15, Blood Urea Nitrogen 21, Creatinine 2.31, Estimat Glomerular Filtration Rate 29, BUN/Creatinine Ratio 9, Glucose Level 107, Calcium Level 8.9, Phosphorus Level 3.3, Magnesium Level 2.0 06/01/19 07:23: Blood Gas Puncture Site LT RAD, Blood Gas Patient Temperature 98.2, Arterial Blood pH 7.43, Arterial Blood Partial Pressure CO2 33, Arterial Blood Partial Pressure O2 60, Arterial Blood HCO3 22, Arterial Blood Total CO2 22.9, Arterial Blood Oxygen Saturation 93, Arterial Blood Base Excess -1.8, [place] Test YES-POS, Blood Gas Ventilator Setting NO, Blood Gas Inspired Oxygen 4 L 06/02/19 04:53: White Blood Count 9.2, Red Blood Count 3.22, Hemoglobin 12.0, Hematocrit 36, Mean Corpuscular Volume 113, Mean Corpuscular Hemoglobin 37, Mean Corpuscular Hemoglobin Concent 33, Red Cell Distribution Width 15.9, Platelet Count 308, Mean Platelet Volume 9.8, Neutrophils (%) (Auto) 67, Lymphocytes (%) (Auto) 14, Monocytes (%) (Auto) 13, Eosinophils (%) (Auto) 5, Basophils (%) (Auto) 1, Neutrophils # (Auto) 6.2, Lymphocytes # (Auto) 1.3, Monocytes # (Auto) 1.2, Eosinophils # (Auto) 0.5, Basophils # (Auto) 0.1, Sodium Level 140, Potassium Level 3.7, Chloride Level 108, Carbon Dioxide Level 19, Anion Gap 13, Blood Urea Nitrogen 21, Creatinine 2.29, Estimat Glomerular Filtration Rate 30, BUN/Cr eatinine Ratio 9, Glucose Level 118, Calcium Level 8.5, Phosphorus Level 3.1, Magnesium Level 1.6 06/03/19 05:15: White Blood Count 14.6, Red Blood Count 3.12, Hemoglobin 11.4, Hematocrit 35, Mean Corpuscular Volume 112, Mean Corpuscular Hemoglobin 37, Mean Corpuscular Hemoglobin Concent 33, Red Cell Distribution Width 15.8, Platelet Count 362, Mean Platelet Volume 10.2, Neutrophils (%) (Auto) 88, Lymphocytes (%) (Auto) 6, Monocytes (%) (Auto) 5, Eosinophils (%) (Auto) 0, Basophils (%) (Auto) 0, Neutrophils # (Auto) 12.9, Lymphocytes # (Auto) 0.9, Monocytes # (Auto) 0.8, Eosinophils # (Auto) 0.0, Basophils # (Auto) 0.0, Sodium Level 141, Potassium Level 4.6, Chloride Level 105, Carbon Dioxide Level 22, Anion Gap 14, Blood Urea Nitrogen 29, Creatinine 2.22, Estimat Glomerular Filtration Rate 31, BUN/Creatinine Ratio 13, Glucose Level 154, Calcium Level 9.0, Magnesium Level 2.1 06/03/19 09:41: Phosphorus Level 4.3 06/04/19 04:45: Sodium Level 140, Potassium Level 4.8, Chloride Level 105, Carbon Dioxide Level 22, Anion Gap 13, Blood Urea Nitrogen 40, Creatinine 2.33, Estimat Glomerular Filtration Rate 29, BUN/Creatinine Ratio 17, Glucose Level 135, Calcium Level 9.1, Magnesium Level 2.1 06/04/19 05:10: White Blood Count 15.5, Red Blood Count 2.95, Hemoglobin 11.0, Hematocrit 33, Mean Corpuscular Volume 113, Mean Corpuscular Hemoglobin 37, Mean Corpuscular Hemoglobin Concent 33, Red Cell Distribution Width 16.0, Platelet Count 354, M davi Platelet Volume 10.3, Neutrophils (%) (Auto) 87, Lymphocytes (%) (Auto) 7, Monocytes (%) (Auto) 6, Eosinophils (%) (Auto) 0, Basophils (%) (Auto) 0, Neutrophils # (Auto) 13.5, Lymphocytes # (Auto) 1.1, Monocytes # (Auto) 0.9, Eosinophils # (Auto) 0.0, Basophils # (Auto) 0.0 06/04/19 09:55: Phosphorus Level 4.6 06/04/19 10:00: Stool Occult Blood Immunoassay NEGATIVE 06/05/19 06:10: Phosphorus Level 5.1, White Blood Count 14.6, Red Blood Count 3.04, Hemoglobin 11.3, Hematocrit 34, Mean Corpuscular Volume 113, Mean Corpuscular Hemoglobin 37, Mean Corpuscular Hemoglobin Concent 33, Red Cell Distribution Width 16.3, Platelet Count 380, Mean Platelet Volume 10.3, Neutrophils (%) (Auto) 86, Lymphocytes (%) (Auto) 7, Monocytes (%) (Auto) 6, Eosinophils (%) (Auto) 0, Basophils (%) (Auto) 0, Neutrophils # (Auto) 12.6, Lymphocytes # (Auto) 1.1, Monocytes # (Auto) 0.9, Eosinophils # (Auto) 0.0, Basophils # (Auto) 0.0, Sodium Level 139, Potassium Level 5.5, Chloride Level 106, Carbon Dioxide Level 19, Anion Gap 14, Blood Urea Nitrogen 50, Creatinine 2.15, Estimat Glomerular Filtration Rate 32, BUN/Creatinine Ratio 23, Glucose Level 128, Calcium Level 9.0, Magnesium Level 2.0 06/05/19 15:24: Phosphorus Level 4.2, Sodium Level 140, Potassium Level 5.5, Chloride Level 106, Carbon Dioxide Level 21, Anion Gap 13, Blood Urea Nitrogen 53, Creatinine 2.08, Estimat Glomerular Filtration Rate 33, BUN/Creatinine Ratio 25, Glucose Level 150, Calcium Level 8.9, Magnesium Level 2.0, B-Type Natriuretic Peptide 1078.9 06/06/19 04:55: White Blood Count 12.0, Red Blood Count 2.86, Hemoglobin 10.5, Hematocrit 32, Mean Corpuscular Volume 112, Mean Corpuscular Hemoglobin 37, Mean Corpuscular Hemoglobin Concent 33, Red Cell Distribution Width 15.8, Platelet Count 309, Mean Platelet Volume 10.5, Neutrophils (%) (Auto) 87, Lymphocytes (%) (Auto) 7, Monocytes (%) (Auto) 6, Eosinophils (%) (Auto) 0, Basophils (%) (Auto) 0, Neutrophils # (Auto) 10.4, Lymphocytes # (Auto) 0.9, Monocytes # (Auto) 0.7, Eosinophils # (Auto) 0.0, Basophils # (Auto) 0.0, Neutrophils % (Manual) 86, Lymphocytes % (Manual) 11, Monocytes % (Manual) 3, Macrocytosis MODERATE, Sodium Level 141, Potassium Level 5.4, Chloride Level 108, Carbon Dioxide Level 21, Anion Gap 12, Blood Urea Nitrogen 59, Creatinine 2.04, Estimat Glomerular Filtration Rate 34, BUN/Creatinine Ratio 29, Glucose Level 132, Calcium Level 8.7, Corrected Calcium 9.4, Phosphorus Level 5.1, Magnesium Level 1.9, Total Bilirubin 0.3, Aspartate Amino Transf (AST/SGOT) 53, Alanine Aminotransferase (ALT/SGPT) 44, Alkaline Phosphatase 71, Total Protein 5.9, Albumin 3.1 06/07/19 05:59: White Blood Count 15.3, Red Blood Count 3.00, Hemoglobin 10.9, Hematocrit 33, Mean Corpuscular Volume 110, Mean Corpuscular Hemoglobin 36, Mean Corpuscular Hemoglobin Concent 33, Red Cell Distribution Width 15.8, Platelet Count 329, Mean Platelet Volume 10.2, Neutrophils (%) (Auto) 88, Lymphocytes (%) (Auto) 6, Monocytes (%) (Auto) 6, Eosinophils (%) (Auto) 0, Basophils (%) (Auto) 0, Neutrophils # (Auto) 13.4, Lymphocytes # (Auto) 0.9, Monocytes # (Auto) 1.0, Eosinophils # (Auto) 0.0, Basophils # (Auto) 0.0, Sodium Level 139, Potassium Level 5.1, Chloride Level 105, Carbon Dioxide Level 21, Anion Gap 13, Blood Urea Nitrogen 61, Creatinine 1.90, Estimat Glomerular Filtration Rate 37, BUN/Creatinine Ratio 32, Glucose Level 129, Calcium Level 8.8, Phosphorus Level 5.1, Magnesium Level 1.7 06/08/19 05:11: White Blood Count 14.5, Red Blood Count 2.87, Hemoglobin 10.4, Hematocrit 31, Mean Corpuscular Volume 109, Mean Corpuscular Hemoglobin 36, Mean Corpuscular Hemoglobin Concent 33, Red Cell Distribution Width 15.7, Platelet Count 311, Mean Platelet Volume 10.5, Neutrophils (%) (Auto) 84, Lymphocytes (%) (Auto) 8, Monocytes (%) (Auto) 8, Eosinophils (%) (Auto) 0, Basophils (%) (Auto) 0, Neutrophils # (Auto) 12.1, Lymphocytes # (Auto) 1.1, Monocytes # (Auto) 1.2, Eosinophils # (Auto) 0.0, Basophils # (Auto) 0.0, Sodium Level 137, Potassium Level 5.1, Chloride Level 104, Carbon Dioxide Level 23, Anion Gap 10, Blood Urea Nitrogen 63, Creatinine 1.79, Estimat Glomerular Filtration Rate 39, BUN/Creatinine Ratio 35, Glucose Level 121, Calcium Level 8.5, Phosphorus Level 5.0, Magnesium Level 2.2 06/09/19 05:32: White Blood Count 13.3, Red Blood Count 3.12, Hemoglobin 11.4, Hematocrit 34, Mean Corpuscular Volume 109, Mean Corpuscular Hemoglobin 37, Mean Corpuscular Hemoglobin Concent 34, Red Cell Distribution Width 16.1, Platelet Count 228, Mean Platelet Volume 10.7, Neutrophils (%) (Auto) 68, Lymphocytes (%) (Auto) 17, Monocytes (%) (Auto) 13, Eosinophils (%) (Auto) 2, Basophils (%) (Auto) 0, Neutrophils # (Auto) 9.1, Lymphocytes # (Auto) 2.3, Monocytes # (Auto) 1.7, Eosinophils # (Auto) 0.2, Basophils # (Auto) 0.0, Sodium Level 139, Potassium Level 4.5, Chloride Level 105, Carbon Dioxide Level 20, Anion Gap 14, Blood Urea Nitrogen 60, Creatinine 1.73, Estimat Glomerular Filtration Rate 41, BUN/Creati nine Ratio 35, Glucose Level 86, Calcium Level 8.7, Phosphorus Level 4.4, Magnesium Level 2.4 06/10/19 06:05: White Blood Count 9.3, Red Blood Count 2.80, Hemoglobin 10.3, Hematocrit 31, Mean Corpuscular Volume 109, Mean Corpuscular Hemoglobin 37, Mean Corpuscular Hemoglobin Concent 34, Red Cell Distribution Width 15.7, Platelet Count 287, Mean Platelet Volume 10.7, Neutrophils (%) (Auto) 65, Lymphocytes (%) (Auto) 20, Monocytes (%) (Auto) 11, Eosinophils (%) (Auto) 4, Basophils (%) (Auto) 0, Neutrophils # (Auto) 6.1, Lymphocytes # (Auto) 1.9, Monocytes # (Auto) 1.0, Eosinophils # (Auto) 0.4, Basophils # (Auto) 0.0, Sodium Level 143, Potassium Level 4.2, Chloride Level 108, Carbon Dioxide Level 23, Anion Gap 12, Blood Urea Nitrogen 48, Creatinine 1.78, Estimat Glomerular Filtration Rate 40, BUN/Creatinine Ratio 27, Glucose Level 94, Calcium Level 8.7, Phosphorus Level 4.3, Magnesium Level 1.6 06/11/19 06:00: White Blood Count 10.4, Red Blood Count 2.99, Hemoglobin 10.7, Hematocrit 33, Mean Corpuscular Volume 110, Mean Corpuscular Hemoglobin 36, Mean Corpuscular Hemoglobin Concent 32, Red Cell Distribution Width 16.4, Platelet Count 325, Mean Platelet Volume 10.5, Neutrophils (%) (Auto) 68, Lymphocytes (%) (Auto) 16, Monocytes (%) (Auto) 11, Eosinophils (%) (Auto) 5, Basophils (%) (Auto) 0, Neutrophils # (Auto) 7.0, Lymphocytes # (Auto) 1.7, Monocytes # (Auto) 1.1, Eosinophils # (Auto) 0.5, Basophils # (Auto) 0.0, Sodium Level 142, Potassium Level 4.2, Chloride Level 106, Carbon Dioxide Level 23, Anion Gap 13, Blood Urea Nitrogen 43, Creatinine 2.03, Estimat Glomerular Filtration Rate 34, BUN/Creat inine Ratio 21, Glucose Level 108, Calcium Level 9.3, Phosphorus Level 4.0, Magnesium Level 1.9 Discharge Home Medications: Active Scripts Active Aspirin EC (Aspirin) 81 Mg Tablet.dr 81 Mg PO DAILY Amlodipine Besylate 5 Mg Tablet 5 Mg PO DAILY Atenolol 25 Mg Tablet 25 Mg PO BID Hydralazine HCl 25 Mg Tablet 25 Mg PO TID Clopidogrel (Clopidogrel Bisulfate) 75 Mg Tablet 75 Mg PO DAILY Iprat-Albut 0.5-3(2.5) mg/3 ml (Ipratropium/Albuterol Sulfate) 3 Ml Ampul.neb 3 Ml INH [id number] Reported Hydrocodone-Acetamin 5-325 mg (Hydrocodone/Acetaminophen) 1 Each Tablet 1 Tab PO BID PRN Lorazepam 0.5 Mg Tablet 0.5 Mg PO HS PRN Potassium Chloride 10 Meq Tablet.er 10 Meq PO DAILY Lorazepam 0.5 Mg Tablet 0.5 Mg PO DAILY Instructions to patient/family Please see electronic discharge instructions given to patient. Diagnosis/Problems Diagnosis/Problems (1) Multifocal pneumonia Status: Acute (2) Sepsis Status: Resolved Qualifiers: Qualified Codes: A41.9 - Sepsis, unspecified organism Resolution Date/Time: 05/29/19 @ 19:19 (3) Cellulitis of right lower leg Status: Acute (4) Abscess of toe, right Status: Acute (5) Hypertension Status: Chronic Qualifiers: Qualified Codes: I10 - Essential (primary) hypertension (6) Anxiety Status: Chronic (7) Alcoholism Status: Chronic (8) Smoker Status: Chronic (9) Neuropathy Status: Chronic (10) Ulcer of great toe Status: Acute Qualifiers: Qualified Codes: L97.512 - Non-pressure chronic ulcer of other part of right foot with fat layer exposed (11) Acute renal insufficiency Status: Acute (12) Alcohol withdrawal Status: Resolved Resolution Date/Time: 05/30/19 @ 20:57 (13) Volume overload Status: Acute Qualifiers: Qualified Codes: E87.70 - Fluid overload, unspecified (14) Elevated brain natriuretic peptide (BNP) level Status: Acute (15) Renal failure Status: Acute Qualifiers: Qualified Codes: N17.9 - Acute kidney failure, unspecified Clinical Quality Measures DVT/VTE Risk/Contraindication: Risk Factor Score Per Nursin RFS Level Per Nursing on Admit: 2=Moderate Contraindications-Mechi: Other *list below* Other: cellulitis HARDY CAMPBELL DO Jun 11, 2019 11:17
--- NOTE | 2019-06-11 12:50 | Wound Care Assessment ---
Wound Care Assessment Date Seen by Provider: Jun 11, 2019 Time Seen by Provider: 12:05 Chief Complaint R great toe ulcer. HPI The patient is a 58 year old male, with a long-standing history of neuropathy, and a three week history of ulceration of the R great toe. [place] evolved into a ulcer and worsened in the last week. He is a current everyday smoker and has a history of alcohol abuse. He has chronic edema of BLE, but it has worsened on the R. He denies diabetes. 05/25/19 Interval Note: Seen at bedside. Less pain. Wound is clean by nursing report. Less erythema noted. Continue same dressings. 05/29/19 Interval note: No pain in foot. Had angio with no correctable occlusive disease. To be discharged tomorrow on Augmentin. The wound is parts cleaner, with no residual deep slough. [facility]up in [facility]. 06/11/19 Interval Note: Wound is clean. He is going home. It is a little wet. Will change to silver alginate dressings daily. Follow-up in [facility]. Past Medical History: Admits Heart Disease (arhythmia. Personal hx of neuropathy.) Smoking Status: Current Everyday Smoker Recreational Drug Use: No Alcohol Use: Regular Use Review of Systems General: No Chills Pulmonary: No Dyspnea Cardiovascular: No: Chest Pain Exam Vital Signs Date Time Temp Pulse Resp B/P (MAP) Pulse Ox O2 Delivery O2 Flow Rate FiO2 06/11/19 11:00 92 Room Air 06/11/19 08:00 2.00 06/11/19 08:00 98.9 80 18 116/68 (84) 06/08/19 08:00 40 Capillary Refill : Less Than 3 SecondsLess Than 3 Seconds General Appearance: no apparent distress HEENT: normal ENT inspection Respiratory: no respiratory distress Extremities: other (R great toe ulcer -- 2.1 x 3.8 x 0.3 cm, base 50%slough, 50% granulation. Mod. s.s. drainage.) Results Laboratory Tests 06/11/19 06:00: White Blood Count 10.4, Red Blood Count 2.99L, Hemoglobin 10.7L, Hematocrit 33L, Mean Corpuscular Volume 110H, Mean Corpuscular Hemoglobin 36H, Mean Corpuscular Hemoglobin Concent 32, Red Cell Distribution Width 16.4H, Platelet Count 325, Mean Platelet Volume 10.5H, Neutrophils (%) (Auto) 68, Lymphocytes (%) (Auto) 16, Monocytes (%) (Auto) 11, Eosinophils (%) (Auto) 5, Basophils (%) (Auto) 0, Neutrophils # (Auto) 7.0, Lymphocytes # (Auto) 1.7, Monocytes # (Auto) 1.1H, Eosinophils # (Auto) 0.5H, Basophils # (Auto) 0.0, Sodium Level 142, Potassium Level 4.2, Chloride Level 106, Carbon Dioxide Level 23, Anion Gap 13, Blood Urea Nitrogen 43H, Creatinine 2.03H, Estimat Glomerular Filtration Rate 34, BUN/Creatinine Ratio 21, Glucose Level 108H, Calcium Level 9.3, Phosphorus Level 4.0, Magnesium Level 1.9 Microbiology 05/30/19 Blood Culture - Final, Complete No growth 06/04/19 MRSA Screen - Final, Complete MRSA not isolated Assessment/Plan/Dx 1. R great toe ulcer, full thickness. 2. Peripheral neuropathy, dense. 3. Tobacco abuse and dependency. Plan: Change to silver alginate dressings. Will follow-up in [facility]. PARVEEN GOEL MD Jun 11, 2019 12:50
--- NOTE | 2019-06-11 21:46 | Cardiology Progress Note ---
Cardiology SOAP Progress Note Subjective: Significant improvement in shortness of breath. Objective: I&O/Vital Signs 06/11/19 06/11/19 11:00 13:25 B/P (MAP) Pulse Ox 92 O2 Delivery Room Air 06/11/19 00:00 Intake Total 1840 ml Output Total 1750 ml Balance 90 ml Weight (Pounds): 220 Weight (Ounces): 8.8 Weight (Calculated Kilograms): 100.950875 Constitutional: appears stated age, AAO x 3; No apparent distress; well- developed, well-nourished Respiratory: accessory muscle use, respiratory distress; No chest tender, No chest expansion is symmetric; chest is bilaterally symmetric; No lungs clear to percussion, No crackles, No rhonchi, No rales, No stridor; wheezing; No pleural rub, No other Cardiovascular: regular rate-rhythm; No irregularly irregular, No extra beats, No parasternal heave is noted, No JVD, No edema, No bradycardia, No tachycardia, No point of maximal impulse, No cardiac thrills are palpable; S1 and S2; No gallop/S3, No gallop/S4, No diastolic murmur, No systolic murmur, No friction rub, No click, No other Gastrointestional: No tender, No soft, No round, No distended, No pulsatile mass, No organomegaly, No guarding, No rebound, No tenderness, No hernia, No mass, No audible bowel sounds, No abnormal bowel sounds, No abdominal bruits, No spleenomegaly, No other Extremities: No normal range of motion, No non-tender, No normal inspection, No pedal edema, No calf tenderness, No normal capillary refill, No pelvis stable, No calf tenderness, No inflammation, No pedal edema, No slow capillary refill, No swelling, No other, No abrasion, No clubbing, No cyanosis, No ecchymosis, No laceration, No no lower extremity edema bilateral, No significant edema, No tenderness; wound (right great toe) Neurologic/Psychiatric: no motor/sensory deficits, alert, normal mood/affect, oriented x 3, power is 5/5 both on sides Skin: No rash, No ulcerations Results/Procedures: Labs Laboratory Tests 06/11/19 06:00: White Blood Count 10.4, Red Blood Count 2.99L, Hemoglobin 10.7L, Hematocrit 33L, Mean Corpuscular Volume 110H, Mean Corpuscular Hemoglobin 36H, Mean Corpuscular Hemoglobin Concent 32, Red Cell Distribution Width 16.4H, Platelet Count 325, Mean Platelet Volume 10.5H, Neutrophils (%) (Auto) 68, Lymphocytes (%) (Auto) 16, Monocytes (%) (Auto) 11, Eosinophils (%) (Auto) 5, Basophils (%) (Auto) 0, Neutrophils # (Auto) 7.0, Lymphocytes # (Auto) 1.7, Monocytes # (Auto) 1.1H, Eosinophils # (Auto) 0.5H, Basophils # (Auto) 0.0, Sodium Level 142, Potassium Level 4.2, Chloride Level 106, Carbon Dioxide Level 23, Anion Gap 13, Blood Urea Nitrogen 43H, Creatinine 2.03H, Estimat Glomerular Filtration Rate 34, BUN/Creatinine Ratio 21, Glucose Level 108H, Calcium Level 9.3, Phosphorus Level 4.0, Magnesium Level 1.9 Microbiology 05/30/19 Blood Culture - Final, Complete No growth 06/04/19 MRSA Screen - Final, Complete MRSA not isolated A/P: Assessment/Dx: Right great toe cellulitis, abscess, nonhealing ulcer, No PAD on peripheral angiogram done 05/28/2019, Hypertension, Active smoking, Shortness of breath, acute respiratory failure, resolved chronic diastolic heart failure Plan: IV fluids, wound care and general surgery following. No PAD on peripheral angiogram done on 05/28/2019. shortness of breath. Multifactorial, COPD, pneumonia, acute diastolic heart failure. significant improvement. echocardiogram done 05/29/2019 which was normal LV function with mild to moderate diastolic dysfunction. PA pressure 59 mmHg. No significant valvular heart disease. Acute diastolic heart failure, elevated BNP, improved with Lasix. COPD, due to active smoking. Acute kidney injury, likely due to dehydration, sepsis, contrast injury. IV fluids. Improved with IV fluids. back to baseline creatinine. Smoking cessation was strongly recommended. Thank you for your consultation. Please call me if you have any questions. Salvatore Hansen MD, FACP, FACC, FSCAI, FHRS, CCDS Interventional Cardiology Cardiac Electrophysiology Vascular Medicine and Endovascular Interventions Isamar HANSEN MD Jun 11, 2019 21:46
== END 2019-06-11 13:25 | disposition home or self-care (01) | DRG 871 ==
LOC: 4TH 16:00
PROVIDERS: ADMIT Internal Medicine; ATTEND Internal Medicine
PROC: B41D1ZZ Fluoroscopy of Aorta and Bilateral Lower Extremity Arteries using Low Osmolar Contrast (ICD-10-PCS; principal; 2019-05-28)
PROC: B4181ZZ Fluoroscopy of Bilateral Renal Arteries using Low Osmolar Contrast (ICD-10-PCS; 2019-05-28)
DX: A41.9 Sepsis, unspecified organism (principal); L03.031 Cellulitis of right toe; L03.115 Cellulitis of right lower limb; L97.512 Non-pressure chronic ulcer of other part of right foot with fat layer exposed; J18.1 Lobar pneumonia, unspecified organism; N17.9 Acute kidney failure, unspecified; I11.0 Hypertensive heart disease with heart failure; I50.31 Acute diastolic (congestive) heart failure; F10.239 Alcohol dependence with withdrawal, unspecified; F41.9 Anxiety disorder, unspecified; E87.2 Acidosis; J44.0 Chronic obstructive pulmonary disease with (acute) lower respiratory infection; J44.1 Chronic obstructive pulmonary disease with (acute) exacerbation; F17.210 Nicotine dependence, cigarettes, uncomplicated; G62.9 Polyneuropathy, unspecified; F32.9 Major depressive disorder, single episode, unspecified; I34.1 Nonrheumatic mitral (valve) prolapse; K58.0 Irritable bowel syndrome with diarrhea; E87.6 Hypokalemia; E87.70 Fluid overload, unspecified; R06.89 Other abnormalities of breathing; M10.9 Gout, unspecified; E83.39 Other disorders of phosphorus metabolism; E87.5 Hyperkalemia; E86.0 Dehydration
CPT/HCPCS: 36415; 36600; 71045; 71046; 71250; 73630; 75625; 75716; 80048; 80053; 80202; 80320; 81000; 82274; 82805; 83605; 83735; 83880; 84100; 85007; 85025; 85027; 85652; 86141; 87040; 87081; 93005; 93306; 93926; 94640; 94660; 94664; 94760; 94761

== ENCOUNTER → 2019-06-18 | Outpatient (CLI) | payer BC ==
[~2019-06-18] MED LIST changes: +ALLO100T PO; +AMLO5TAB9 PO; +ASPI-983 PO; +CLOP75TA28 PO; +HYDR-3812 PO; +HYDR-3923 PO; +IPRA3AMP31 INH; -PIPERACILLIN/TAZO 4.5 GM/NS 100 ML IV SCH; +POTA10TA10 PO
== END ==
LOC: WOUNDCARE 12:37
PROVIDERS: ATTEND Surgery
DX: L97.522 Non-pressure chronic ulcer of other part of left foot with fat layer exposed (principal); I96 Gangrene, not elsewhere classified; G60.8 Other hereditary and idiopathic neuropathies
CPT/HCPCS: 11042

== ENCOUNTER → 2019-06-25 | Outpatient (CLI) | payer BC | LOC: WOUNDCARE 13:22 | PROVIDERS: ATTEND Surgery | DX: L97.522 Non-pressure chronic ulcer of other part of left foot with fat layer exposed (principal); I96 Gangrene, not elsewhere classified; G60.8 Other hereditary and idiopathic neuropathies | CPT/HCPCS: 11042 ==

== ENCOUNTER → 2019-07-02 | Outpatient (CLI) | payer BC | LOC: WOUNDCARE 12:38 | PROVIDERS: ATTEND Surgery | DX: L97.512 Non-pressure chronic ulcer of other part of right foot with fat layer exposed (principal); G60.8 Other hereditary and idiopathic neuropathies; I96 Gangrene, not elsewhere classified | CPT/HCPCS: 11042 ==

== ENCOUNTER → 2019-07-16 | Outpatient (CLI) | payer BC | LOC: WOUNDCARE 12:41 | PROVIDERS: ATTEND Surgery | DX: L97.512 Non-pressure chronic ulcer of other part of right foot with fat layer exposed (principal); G60.8 Other hereditary and idiopathic neuropathies; I96 Gangrene, not elsewhere classified | CPT/HCPCS: 11042 ==

== ENCOUNTER → 2019-07-23 | Outpatient (CLI) | payer BC | LOC: WOUNDCARE 12:46 | PROVIDERS: ATTEND Surgery | DX: L97.512 Non-pressure chronic ulcer of other part of right foot with fat layer exposed (principal); G60.8 Other hereditary and idiopathic neuropathies; I96 Gangrene, not elsewhere classified | CPT/HCPCS: 11042; 87070; 87077; 87205 ==

== ENCOUNTER → 2019-07-23 | Outpatient (CLI) | payer BC ==
[2019-07-23 13:58] LABS: BUN/CREATININE RATIO 12; CALCIUM 9.4 MG/DL (8.5-10.1); CARBON DIOXIDE 23 MMOL/L (21-32); CHLORIDE 108 MMOL/L (98-107); GFR ESTIMATED > 60; GLUCOSE 88 MG/DL (70-105); POTASSIUM 3.9 MMOL/L (3.6-5.0); SODIUM 140 MMOL/L (135-145)
== END ==
LOC: LAB 13:31
PROVIDERS: ATTEND Surgery
DX: L97.512 Non-pressure chronic ulcer of other part of right foot with fat layer exposed (principal); G60.8 Other hereditary and idiopathic neuropathies
CPT/HCPCS: 36415; 80048

== ENCOUNTER → 2019-07-30 | Outpatient (CLI) | payer BC | LOC: LAB 13:49 | PROVIDERS: ATTEND Surgery | DX: L97.512 Non-pressure chronic ulcer of other part of right foot with fat layer exposed (principal) ==

== ENCOUNTER → 2019-07-30 | Outpatient (CLI) | payer BC | LOC: WOUNDCARE 12:46 | PROVIDERS: ATTEND Surgery | DX: L97.512 Non-pressure chronic ulcer of other part of right foot with fat layer exposed (principal); G60.8 Other hereditary and idiopathic neuropathies; I70.235 Atherosclerosis of native arteries of right leg with ulceration of other part of foot; I96 Gangrene, not elsewhere classified | CPT/HCPCS: 11042 ==

== ENCOUNTER → 2019-08-06 | Outpatient (CLI) | payer BC | LOC: WOUNDCARE 12:29 | PROVIDERS: ATTEND Surgery | DX: L97.512 Non-pressure chronic ulcer of other part of right foot with fat layer exposed (principal); G60.8 Other hereditary and idiopathic neuropathies; I70.235 Atherosclerosis of native arteries of right leg with ulceration of other part of foot; I96 Gangrene, not elsewhere classified | CPT/HCPCS: 11042 ==

== ENCOUNTER → 2019-08-13 | Outpatient (CLI) | payer BC | LOC: WOUNDCARE 12:56 | PROVIDERS: ATTEND Surgery | DX: I70.261 Atherosclerosis of native arteries of extremities with gangrene, right leg (principal); L97.512 Non-pressure chronic ulcer of other part of right foot with fat layer exposed; G60.9 Hereditary and idiopathic neuropathy, unspecified | CPT/HCPCS: 11042 ==

== ENCOUNTER → 2019-08-20 | Outpatient (CLI) | payer BC | LOC: WOUNDCARE 12:36 | PROVIDERS: ATTEND Surgery | DX: I70.261 Atherosclerosis of native arteries of extremities with gangrene, right leg (principal); L97.512 Non-pressure chronic ulcer of other part of right foot with fat layer exposed; G60.8 Other hereditary and idiopathic neuropathies | CPT/HCPCS: 11042 ==

== ENCOUNTER → 2019-08-27 | Outpatient (CLI) | payer BC | LOC: WOUNDCARE 12:53 | PROVIDERS: ATTEND Surgery | DX: L97.512 Non-pressure chronic ulcer of other part of right foot with fat layer exposed (principal); G60.8 Other hereditary and idiopathic neuropathies; I70.235 Atherosclerosis of native arteries of right leg with ulceration of other part of foot; I96 Gangrene, not elsewhere classified | CPT/HCPCS: 11042 ==

== ENCOUNTER → 2019-09-03 | Outpatient (CLI) | payer BC | LOC: WOUNDCARE 12:45 | PROVIDERS: ATTEND Surgery | DX: I70.261 Atherosclerosis of native arteries of extremities with gangrene, right leg (principal); L97.512 Non-pressure chronic ulcer of other part of right foot with fat layer exposed; T65.222A Toxic effect of tobacco cigarettes, intentional self-harm, initial encounter; G60.8 Other hereditary and idiopathic neuropathies | CPT/HCPCS: 11042 ==

== ENCOUNTER → 2019-09-10 | Outpatient (CLI) | payer BC | LOC: WOUNDCARE 12:41 | PROVIDERS: ATTEND Surgery | DX: L97.522 Non-pressure chronic ulcer of other part of left foot with fat layer exposed (principal); G60.8 Other hereditary and idiopathic neuropathies; I70.235 Atherosclerosis of native arteries of right leg with ulceration of other part of foot; T65.222A Toxic effect of tobacco cigarettes, intentional self-harm, initial encounter; I96 Gangrene, not elsewhere classified; F17.218 Nicotine dependence, cigarettes, with other nicotine-induced disorders | CPT/HCPCS: 11042 ==

== ENCOUNTER → 2019-09-17 | Outpatient (CLI) | payer BC | LOC: WOUNDCARE 12:39 | PROVIDERS: ATTEND Surgery | DX: I70.261 Atherosclerosis of native arteries of extremities with gangrene, right leg (principal); L97.512 Non-pressure chronic ulcer of other part of right foot with fat layer exposed; T65.222A Toxic effect of tobacco cigarettes, intentional self-harm, initial encounter; G60.8 Other hereditary and idiopathic neuropathies; F17.218 Nicotine dependence, cigarettes, with other nicotine-induced disorders | CPT/HCPCS: 11042 ==

== ENCOUNTER → 2019-09-24 | Outpatient (CLI) | payer BC | LOC: WOUNDCARE 12:40 | PROVIDERS: ATTEND Surgery | DX: L97.512 Non-pressure chronic ulcer of other part of right foot with fat layer exposed (principal); G60.8 Other hereditary and idiopathic neuropathies; I70.235 Atherosclerosis of native arteries of right leg with ulceration of other part of foot; T65.222A Toxic effect of tobacco cigarettes, intentional self-harm, initial encounter; F17.218 Nicotine dependence, cigarettes, with other nicotine-induced disorders; I96 Gangrene, not elsewhere classified | CPT/HCPCS: 11042 ==

== ENCOUNTER → 2019-10-01 | Outpatient (CLI) | payer BC | LOC: WOUNDCARE 12:37 | PROVIDERS: ATTEND Surgery | DX: L97.512 Non-pressure chronic ulcer of other part of right foot with fat layer exposed (principal); G60.8 Other hereditary and idiopathic neuropathies; I70.235 Atherosclerosis of native arteries of right leg with ulceration of other part of foot; T65.222A Toxic effect of tobacco cigarettes, intentional self-harm, initial encounter; F17.210 Nicotine dependence, cigarettes, uncomplicated | CPT/HCPCS: 11042 ==

== ENCOUNTER → 2019-10-08 | Outpatient (CLI) | payer BC | LOC: WOUNDCARE 12:50 | PROVIDERS: ATTEND Surgery | DX: I70.261 Atherosclerosis of native arteries of extremities with gangrene, right leg (principal); L97.512 Non-pressure chronic ulcer of other part of right foot with fat layer exposed; T65.222A Toxic effect of tobacco cigarettes, intentional self-harm, initial encounter; G60.8 Other hereditary and idiopathic neuropathies; F17.218 Nicotine dependence, cigarettes, with other nicotine-induced disorders | CPT/HCPCS: 11042; 87070; 87077; 87186; 87205 ==

== ENCOUNTER → 2019-10-15 | Outpatient (CLI) | payer BC | LOC: WOUNDCARE 12:57 | PROVIDERS: ATTEND Surgery | DX: L97.512 Non-pressure chronic ulcer of other part of right foot with fat layer exposed (principal); G60.8 Other hereditary and idiopathic neuropathies; I70.235 Atherosclerosis of native arteries of right leg with ulceration of other part of foot; I96 Gangrene, not elsewhere classified; T65.222A Toxic effect of tobacco cigarettes, intentional self-harm, initial encounter; F17.218 Nicotine dependence, cigarettes, with other nicotine-induced disorders | CPT/HCPCS: 11042 ==

== ENCOUNTER → 2019-10-22 | Outpatient (CLI) | payer BC | LOC: WOUNDCARE 12:49 | PROVIDERS: ATTEND Surgery | DX: L97.512 Non-pressure chronic ulcer of other part of right foot with fat layer exposed (principal); I70.235 Atherosclerosis of native arteries of right leg with ulceration of other part of foot; G60.8 Other hereditary and idiopathic neuropathies; T65.222A Toxic effect of tobacco cigarettes, intentional self-harm, initial encounter; F17.218 Nicotine dependence, cigarettes, with other nicotine-induced disorders | CPT/HCPCS: 99212 ==

== ENCOUNTER → 2020-08-19 | Outpatient (CLI) | payer BC ==
[~2020-08-19] MED LIST changes: +ACHD5005 PO; +ASPI-1238 PO; -ASPI-983 PO; -HYDR-3812 PO
[2020-08-19 12:11] LABS: BASOPHILS # (AUTO) 0.1 10^3/uL (0.0-0.1); BASOPHILS % (AUTO) 1 % (0-10); EOSINOPHILS # (AUTO) 0.3 10^3/uL (0.0-0.3); EOSINOPHILS % (AUTO) 3 % (0-10); HEMATOCRIT 50 % (40-54); HEMOGLOBIN 17.4 g/dL (13.3-17.7); LYMPHOCYTES # (AUTO) 2.1 10^3/uL (1.0-4.0); LYMPHOCYTES % (AUTO) 21 % (12-44); MEAN CORPUSCULAR HEMOGLOBIN 39 pg (25-34); MEAN CORPUSCULAR HGB CONC 35 g/dL (32-36); MEAN CORPUSCULAR VOLUME 112 fL (80-99); MEAN PLATELET VOLUME 9.9 fL (9.0-12.2); MONOCYTES # (AUTO) 0.8 10^3/uL (0.0-1.0); MONOCYTES % (AUTO) 8 % (0-12); NEUTROPHILS # (AUTO) 6.6 10^3/uL (1.8-7.8); NEUTROPHILS % (AUTO) 67 % (42-75); PLATELET COUNT 196 10^3/uL (130-400); WHITE BLOOD COUNT 9.8 10^3/uL (4.3-11.0)
[2020-08-19 12:21] LABS: ALBUMIN 4.1 GM/DL (3.2-4.5); CHLORIDE 106 MMOL/L (98-107); POTASSIUM 3.8 MMOL/L (3.6-5.0); SODIUM 140 MMOL/L (135-145)
[2020-08-19 12:23] LABS: GLUCOSE 94 MG/DL (70-105)
[2020-08-19 12:24] LABS: TOTAL PROTEIN 7.1 GM/DL (6.4-8.2)
[2020-08-19 12:25] LABS: BILIRUBIN,TOTAL 1.5 MG/DL (0.1-1.0); CARBON DIOXIDE 26 MMOL/L (21-32)
[2020-08-19 12:27] LABS: ALKALINE PHOSPHATASE 142 U/L (40-136); GFR ESTIMATED > 60
[2020-08-19 12:28] LABS: BUN/CREATININE RATIO 14
[2020-08-19 12:30] LABS: ALANINE AMINOTRANSFERASE 30 U/L (0-55)
--- NOTE | 2020-08-19 13:15 | Diagnostic Imaging Report ---
INDICATION: Chronic ulcer. COMPARISON: 05/24/2019 TECHNIQUE: Three radiographs of the right foot dated 08/19/2020. FINDINGS: No acute fracture or dislocation. No destructive osseous process. Moderate scattered degenerative changes, including prominent osteophyte formation involving the talonavicular joint. Moderate degenerative changes also noted throughout the toes. The Lisfranc joint is well aligned. No osseous destruction. No suspicious radiopaque foreign body. Tiny calcaneal enthesophytes. IMPRESSION: No acute osseous abnormality with moderate scattered degenerative changes. If there remains concern for underlying osteomyelitis, then follow-up radiographs in 10-14 days would be recommended. Dictated by: Dictated on workstation # [id number]
== END ==
LOC: RAD 11:39
PROVIDERS: ATTEND Surgery
DX: M19.071 Primary osteoarthritis, right ankle and foot (principal); L97.519 Non-pressure chronic ulcer of other part of right foot with unspecified severity
CPT/HCPCS: 36415; 73630; 80053; 85025

== ENCOUNTER → 2020-08-19 | Outpatient (CLI) | payer BC | LOC: WOUNDCARE 10:00 | PROVIDERS: ATTEND Surgery | DX: L97.512 Non-pressure chronic ulcer of other part of right foot with fat layer exposed (principal); G60.8 Other hereditary and idiopathic neuropathies; B35.3 Tinea pedis | CPT/HCPCS: 11042; A6196; G0463 ==

== ENCOUNTER → 2020-08-26 | Outpatient (CLI) | payer BC | LOC: WOUNDCARE 08:17 | PROVIDERS: ATTEND Surgery | DX: G60.8 Other hereditary and idiopathic neuropathies (principal); L97.512 Non-pressure chronic ulcer of other part of right foot with fat layer exposed; B35.3 Tinea pedis | CPT/HCPCS: 11042; G0463 ==

== ENCOUNTER → 2020-09-02 | Outpatient (CLI) | payer BC ==
[~2020-09-02] MED LIST changes: +AMLO-250 PO; -AMLO5TAB9 PO
== END ==
LOC: WOUNDCARE 08:20
PROVIDERS: ATTEND Surgery
DX: G60.8 Other hereditary and idiopathic neuropathies (principal); L97.512 Non-pressure chronic ulcer of other part of right foot with fat layer exposed; I96 Gangrene, not elsewhere classified; B35.3 Tinea pedis
CPT/HCPCS: 11042; G0463

== ENCOUNTER 2020-09-09 11:15 | Inpatient (IN) | payer BC ==
[~2020-09-09] VITALS: Ht 187 cm; Wt 100.0 kg
[~2020-09-09 11:15] MED LIST changes: -ATOR80TA76 PO; -LORA-404 PO; -NAPH15DR6 OU; -POTA10TA PO
--- NOTE | 2020-09-09 11:15 | NUR ---
This RN to CT with patient
--- NOTE | 2020-09-09 11:20 | NUR ---
Full [facility] unable to be performed due to immediate CT scan but L sided facial droop noted weakness noted to L arm and leg upon arrival. Patient unable to move L arm.
[2020-09-09] MEDS ORDERED: NS IV 1000 ML 1,000 ML IV SCH (11:25)
--- NOTE | 2020-09-09 11:30 | Diagnostic Imaging Report ---
EXAMINATION: CT head without contrast. TECHNIQUE: Multiple contiguous axial images were obtained through the brain without the use of intravenous contrast. All CT scans use one or more of the following dose optimizing techniques: automated exposure control, MA and/or KvP adjustment based on a patient size and exam type, or iterative reconstruction. HISTORY: Facial droop, slurred speech, and left arm weakness. COMPARISON: None available. FINDINGS: The ventricles and sulci are normal. No abnormal attenuation of brain parenchyma is present. No acute intracranial hemorrhage or abnormal extra-axial fluid collections are present. No hyperdense vessel. The calvarium is intact. The mastoid air cells are clear. Right maxillary sinus polyp versus mucus retention cyst. The orbits are normal. IMPRESSION: 1. No acute intracranial abnormality. Dictated by: Dictated on workstation # [id number]
--- NOTE | 2020-09-09 11:46 | NUR ---
Back to ED at this time with patient. Patient having improving symptoms, able to move both L arm and leg and facial droop improving. Dr. Curry notified of change in patient condition.
--- NOTE | 2020-09-09 11:50 | Diagnostic Imaging Report ---
Indication: Stroke. Findings: The lungs are clear. There is no effusion, pneumothorax or acute failure pattern. Impression: No acute-appearing abnormality. Dictated by: Dictated on workstation # [id number]
--- NOTE | 2020-09-09 11:56 | Diagnostic Imaging Report ---
INDICATION: Left face and arm weakness. Slurred speech. COMPARISON: CTA head and neck performed concurrently. TECHNIQUE: Postcontrast perfusion imaging of the brain was performed. Perfusion maps were created. FINDINGS: The bolus appears adequate for the examination. The relative cerebral blood volume, blood flow, mean transit time, and time to maximal perfusion are normal. There are no perfusion defects. IMPRESSION: No perfusion abnormality to indicate core infarct or penumbra. Dictated by: Dictated on workstation # [id number]
[2020-09-09 11:57] LABS: BASOPHILS # (AUTO) 0.1 10^3/uL (0.0-0.1); BASOPHILS % (AUTO) 1 % (0-10); EOSINOPHILS # (AUTO) 0.1 10^3/uL (0.0-0.3); EOSINOPHILS % (AUTO) 2 % (0-10); HEMATOCRIT 48 % (40-54); HEMOGLOBIN 16.7 g/dL (13.3-17.7); LYMPHOCYTES # (AUTO) 1.3 10^3/uL (1.0-4.0); LYMPHOCYTES % (AUTO) 19 % (12-44); MEAN CORPUSCULAR HEMOGLOBIN 40 pg (25-34); MEAN CORPUSCULAR HGB CONC 35 g/dL (32-36); MEAN CORPUSCULAR VOLUME 113 fL (80-99); MONOCYTES # (AUTO) 0.5 10^3/uL (0.0-1.0); MONOCYTES % (AUTO) 8 % (0-12); NEUTROPHILS # (AUTO) 4.9 10^3/uL (1.8-7.8); NEUTROPHILS % (AUTO) 71 % (42-75); PLATELET COUNT 170 10^3/uL (130-400); WHITE BLOOD COUNT 6.9 10^3/uL (4.3-11.0)
--- NOTE | 2020-09-09 12:02 | Diagnostic Imaging Report ---
PROCEDURE: CT angiography of the head and CT angiography of the neck with and without contrast. TECHNIQUE: Contiguous noncontrast images were obtained from the skull base through the vertex. After intravenous contrast administration, helical CT angiography of the neck was performed. Source data was reformatted into 3D MIP projections. Delayed post contrast acquisition was also obtained. Auto Exposure Controls were utilized during the CT exam to meet ALARA standards for radiation dose reduction. INDICATION: Left facial droop and slurred speech. COMPARISON: CT head of earlier same day FINDINGS: CTA NECK: Aorta: Aortic arch is normal, with standard three vessel branching pattern. Anterior Circulation: The origin of the bilateral common carotid arteries are patent. No stenosis of the common carotid arteries in the neck. No significant stenosis of the internal carotid arteries per NASCET criteria. The cervical segments of the bilateral ICAs are patent. The proximal external carotid arteries are patent and without significant stenosis. Posterior Circulation: Origins of the bilateral vertebral arteries are normal. Vertebral arteries are co-dominant. The proximal extraousseous, intrasosseous, and distal extraosseous segments of the vertebral arteries are patent without dissection or stenosis. Non-vascular: No cervical lymphadenopathy. The airway is patent. No evidence of mucosal-based mass lesion in the pharynx. Thyroid is normal. Salivary glands are normal. No concerning lesion in the cervical spine. CTA HEAD: Anterior Circulation: The distal internal carotid arteries are patent. The bilateral M1 and M2 segments of the middle cerebral arteries are patent and without stenosis. The bilateral M3 divisions are grossly symmetric. The anterior cerebral arteries are patent and without stenosis. Anterior communicating artery is patent. No saccular aneurysm in the anterior circulation. Posterior Circulation: The bilateral intracranial segments of the vertebral arteries are patent. The basilar artery is patent and without stenosis. The posterior cerebral arteries are patent and there is a origin of the left. Bilateral posterior communicating arteries are patent and without aneurysm. No saccular aneurysm in the posterior circulation. Post Contrast Head: No pathologic enhancement on delayed post-contrast enhancement. IMPRESSION: 1. No intra-cranial large vessel occlusion or aneurysm. 2. No arterial occlusion or stenosis in the major neck arteries. Dictated by: Dictated on workstation # [id number]
[2020-09-09 12:08] LABS: ALBUMIN 3.6 GM/DL (3.2-4.5); CHLORIDE 105 MMOL/L (98-107); POTASSIUM 3.6 MMOL/L (3.6-5.0); SODIUM 136 MMOL/L (135-145)
[2020-09-09 12:09] LABS: CALCIUM 8.2 MG/DL (8.5-10.1)
[2020-09-09 12:10] LABS: GLUCOSE 120 MG/DL (70-105)
[2020-09-09 12:11] LABS: TOTAL PROTEIN 6.1 GM/DL (6.4-8.2)
[2020-09-09 12:12] LABS: BILIRUBIN,TOTAL 1.2 MG/DL (0.1-1.0); CARBON DIOXIDE 23 MMOL/L (21-32); FIBRIN DEGRADATION PRODUCTS 0.31 UG/ML (0.00-0.49); PROTHROMBIN TIME PATIENT 13.8 SEC (12.2-14.7)
[2020-09-09 12:14] LABS: ALKALINE PHOSPHATASE 127 U/L (40-136); CREATININE SERUM 0.79 MG/DL (0.60-1.30); GFR ESTIMATED > 60
[2020-09-09 12:15] LABS: BUN/CREATININE RATIO 18
[2020-09-09 12:17] LABS: ALANINE AMINOTRANSFERASE 24 U/L (0-55)
[2020-09-09 12:35] LABS: BILIRUBIN,URINE NEGATIVE (NEGATIVE); CLARITY,URINE CLEAR; COLOR,URINE YELLOW; GLUCOSE, URINE (UA) NEGATIVE (NEGATIVE); KETONES,URINE NEGATIVE (NEGATIVE); LEUKOCYTE ESTERASE ,URINE NEGATIVE (NEGATIVE); NITRITE,URINE NEGATIVE (NEGATIVE); PH,URINE 5.5 (5-9); PROTEIN,URINE NEGATIVE (NEGATIVE)
[2020-09-09 12:47] LABS: BACTERIA,URINE NEGATIVE /HPF; RBC,URINE 0-2 /HPF; SQUAMOUS EPITHELIAL CELL,UR 0-2 /HPF
[2020-09-09] MEDS ORDERED: ASPIRIN 325 MG (5 GR) TABLET PO ONE (13:15)
--- NOTE | 2020-09-09 13:35 | NUR ---
Patient to MRI at this time, MRI to transfer patient to room 507 once exam complete
--- NOTE | 2020-09-09 13:41 | NUR ---
Pt brought back to ED room, patient having previous symptoms of L sided facial droop, L arm flaccidity, and L leg weakness. Dr Hernandez aware and assessing patient.
--- NOTE | 2020-09-09 13:56 | ED Neurological Problem ---
General Chief Complaint: Neuro-Stroke Like Symptoms Stated Complaint: TIA Nursing Triage Note: Pt to ED via [facility] from home. Patient was seen in wound care at this facility earlier today aroun 0815. Patient reports upon leaving appointment his L foot felt "like it was in cement" and foot was difficult to move. Patient began having difficulty moving L arm. EMS reported L side facial droop and slurred speech en route to ED. Stroke team activated prior to arrival. Nursing Sepsis Screen: No Definite Risk Source: patient, EMS Exam Limitations: no limitations History of Present Illness Date Seen by Provider: Sep 09, 2020 Time Seen by Provider: 11:16 Initial Comments This 59-year-old gentleman presents to the emergency room this 59-year-old gentleman presents to the emergency room with onset of left-sided weakness and numbness starting around 08:15 this morning when he went to his wound care appointment. He returned home and his symptoms progressed until he became completely flaccid on the left side, had facial droop, and developed slurred speech. EMS was activated. Fingerstick blood sugar was 128. Patient has alcohol dependence but does not appear intoxicated. He typically drinks up to 1 pint of rum per day. Allergies and Home Medications Allergies Coded Allergies: No Known Drug Allergies (Unverified , 05/24/19) Home Medications Amlodipine Besylate 5 Mg Tablet, 5 MG PO DAILY, (Reported) Aspirin 81 Mg Tablet.dr, 81 MG PO DAILY, (Reported) Atenolol 25 Mg Tablet, 25 MG PO DAILY, (Reported) Atorvastatin Calcium 80 Mg Tablet, 80 MG PO DAILY Prescribed by: MARY ALICE ISIDRO on 09/11/20 0829 Lorazepam 0.5 Mg Tablet, 0.5 MG PO BID PRN for ANXIETY, (Reported) Naphazoline HCl/Pheniramine 15 Ml Drops, 2 DROPS OU QID PRN for EYE REDNESS, (Reported) Potassium Chloride 10 Meq Tablet.er, 10 MEQ PO DAILY, (Reported) Patient Home Medication List Home Medication List Reviewed: Yes Review of Systems Review of Systems Constitutional: no symptoms reported Eyes: No Symptoms Reported Ears, Nose, Mouth, Throat: no symptoms reported Respiratory: no symptoms reported Cardiovascular: no symptoms reported Gastrointestinal: no symptoms reported Genitourinary: no symptoms reported Musculoskeletal: no symptoms reported Skin: no symptoms reported Psychiatric/Neurological: See HPI Endocrine: No Symptoms Reported Hematologic/Lymphatic: No Symptoms Reported Past Jtdkccq-Ezcgyn-Vuolet Hx Past Med/Social Hx: Reviewed Nursing Past Med/Soc Hx Patient Social History Alcohol Use: Regular Use Alcohol Beverage of Choice: Rum Recreational Drug Use: No Smoking Status: Current Everyday Smoker Type Used: Cigarettes Recent Foreign Travel: No Contact w/Someone Who Travel: No Recent Infectious Disease Expo: No Recent Hopitalizations: No Seasonal Allergies Seasonal Allergies: Yes Past Medical History Surgeries: Yes (20 YEARS AGO TUMOR REMOVED ( NON CANCER ) ON BLADDER) Respiratory: No Cardiac: Yes (MITRAL VALVE PROLAPSE) Hypertension Neurological: Yes Neuropathy Sexually Transmitted Disease: No HIV/AIDS: No Genitourinary: No Gastrointestinal: Yes (IBS) Chronic Diarrhea, Irritable Bowel Musculoskeletal: Yes Gout Endocrine: No HEENT: Yes Hearing Impairment: Hard of Hearing Cancer: No Psychosocial: Yes (Alcohol dependence) Anxiety, Depression Integumentary: Yes (currently being treated by wound care for abcess on R foot) Family Medical History FH: neuropathy 19 MOTHER Mitral valve prolapse 19 MOTHER 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/Hx Physical Exam Vital Signs Vital Signs - First Documented 09/09/20 11:15 Temp 36.4 Pulse 74 Resp 20 B/P (MAP) 130/68 (88) Pulse Ox 98 O2 Delivery Room Air Capillary Refill : Less Than 3 Seconds Height, Weight, BMI Height: 6'2.00" Weight: 220lbs. 8.8oz. 100.057058du; 28.00 BMI Method:Stated General Appearance: WD/WN, no apparent distress HEENT: PERRL/EOMI, normal ENT inspection, pharynx normal Neck: normal inspection Respiratory: lungs clear, normal breath sounds, no respiratory distress, no accessory muscle use Cardiovascular: regular rate, rhythm, no edema, no murmur Gastrointestinal: normal bowel sounds, non tender, soft Extremities: normal inspection, no pedal edema Neurologic/Psychiatric: alert, normal mood/affect, abnormal travel rn or II-XII (Mild slurring of speech), facial droop, motor weakness (Nearly flaccid left arm and leg) Crainal Nerves: PERRL, abnormal speech, facial droop Stroke Onset of Symptoms Date of Onset of Symptoms: Sep 09, 2020 NIH Stroke Scale Assessment Level of Consciousness: 0=Alert (0), Level of Consciousness-Questions: 0=Answers both month/age (0), LOC Commands: 0=Performs both tasks (0), Visual Garcia: 0=No visual loss (0), Facial Movement (Facial Paresis): 1=Minor paralysis (1), Motor Function-Arms Right: 0=No drift (0), Motor Function-Arms Left: 0=No drift (0), Motor Function-Legs Right: 0=No drift (0), Motor Function-Legs Left: 0=No drift (0), Limb Ataxia: 0=Absent (0), Sensory: 0=Normal:no loss (0), Best Language: 0=No aphasia (0), Dysarthria: 0=Normal (0), Extinction & Inattention: 0=No abnormality (0), Total: Stroke Thrombolytic Exclusion Age 18 or Over: Yes Intracranial Neoplasm/Aneurysm: No Recent CPR: No Diabetic Hemorrhagic Retinopat: No Recent Obstetric Delivery: No Significant Hepatic Dysfunctio: No Improving Symptoms: Yes Progress/Results/Core Measures Results/Orders Lab Results Laboratory Tests Test 09/09/20 11:50 09/09/20 12:10 Range/Units White Blood Count 6.9 4.3-11.0 10^3/uL Red Blood Count 4.20 L 4.30-5.52 10^6/uL Hemoglobin 16.7 13.3-17.7 g/dL Hematocrit 48 40-54 % Mean Corpuscular Volume 113 H 80-99 fL Mean Corpuscular Hemoglobin 40 H 25-34 pg Mean Corpuscular Hemoglobin Concent 35 32-36 g/dL Red Cell Distribution Width 14.2 10.0-14.5 % Platelet Count 170 130-400 10^3/uL Mean Platelet Volume 10.0 9.0-12.2 fL Immature Granulocyte % (Auto) 0 % Neutrophils (%) (Auto) 71 42-75 % Lymphocytes (%) (Auto) 19 12-44 % Monocytes (%) (Auto) 8 0-12 % Eosinophils (%) (Auto) 2 0-10 % Basophils (%) (Auto) 1 0-10 % Neutrophils # (Auto) 4.9 1.8-7.8 10^3/uL Lymphocytes # (Auto) 1.3 1.0-4.0 10^3/uL Monocytes # (Auto) 0.5 0.0-1.0 10^3/uL Eosinophils # (Auto) 0.1 0.0-0.3 10^3/uL Basophils # (Auto) 0.1 0.0-0.1 10^3/uL Immature Granulocyte # (Auto) 0.0 0.0-0.1 10^3/uL Prothrombin Time 13.8 12.2-14.7 SEC INR Comment 1.0 0.8-1.4 Activated Partial Thromboplast Time 34 24-35 SEC D-Dimer 0.31 0.00-0.49 UG/ML Sodium Level 136 135-145 MMOL/L Potassium Level 3.6 3.6-5.0 MMOL/L Chloride Level 105 98-107 MMOL/L Carbon Dioxide Level 23 21-32 MMOL/L Anion Gap 8 5-14 MMOL/L Blood Urea Nitrogen 14 7-18 MG/DL Creatinine 0.79 0.60-1.30 MG/DL Estimat Glomerular Filtration Rate > 60 BUN/Creatinine Ratio 18 Glucose Level 120 H 70-105 MG/DL Calcium Level 8.2 L 8.5-10.1 MG/DL Corrected Calcium 8.5 8.5-10.1 MG/DL Total Bilirubin 1.2 H 0.1-1.0 MG/DL Aspartate Amino Transf (AST/SGOT) 28 5-34 U/L Alanine Aminotransferase (ALT/SGPT) 24 0-55 U/L Alkaline Phosphatase 127 40-136 U/L Troponin I < 0.028 <0.028 NG/ML Total Protein 6.1 L 6.4-8.2 GM/DL Albumin 3.6 3.2-4.5 GM/DL Triglycerides Level 109 <150 MG/DL Cholesterol Level 129 < 200 MG/DL LDL Cholesterol Direct 80 1-129 MG/DL VLDL Cholesterol 22 5-40 MG/DL HDL Cholesterol 43 40-60 MG/DL Serum Alcohol < 10 <10 MG/DL Urine Color YELLOW Urine Clarity CLEAR Urine pH 5.5 5-9 Urine Specific [place] <=1.005 1.016-1.022 Urine Protein NEGATIVE NEGATIVE Urine Glucose (UA) NEGATIVE NEGATIVE Urine Ketones NEGATIVE NEGATIVE Urine Nitrite NEGATIVE NEGATIVE Urine Bilirubin NEGATIVE NEGATIVE Urine Urobilinogen 0.2 < = 1.0 MG/DL Urine Leukocyte Esterase NEGATIVE NEGATIVE Urine RBC (Auto) TRACE-I NEGATIVE Urine RBC 0-2 /HPF Urine WBC NONE /HPF Urine Squamous Epithelial Cells 0-2 /HPF Urine Crystals NONE /LPF Urine Bacteria NEGATIVE /HPF Urine Casts NONE /LPF Urine Mucus SMALL H /LPF Urine Culture Indicated NO My Orders Orders - EVANGELISTA CUADRA MD Ct Head Wo-R/O Stroke (09/09/20 11:17) Ct Angio Head/Neck (09/09/20 11:17) Ct Head Perfusion W/ Contrast (09/09/20 11:17) Cbc With Automated Diff (09/09/20 11:18) Protime With Inr (09/09/20 11:18) Partial Thromboplastin Time (09/09/20 11:18) Comprehensive Metabolic Panel (09/09/20 11:18) Fibrin Degradation Products (09/09/20 11:18) Troponin I (09/09/20 11:18) Ua Culture If Indicated (09/09/20 11:18) Chest 1 View, Ap/Pa Only (09/09/20 11:18) Catheter(Urinary) Insert & Ass 03,15 (09/09/20 11:18) Ekg Tracing (09/09/20 11:18) Nothing By Mouth (09/09/20 Lunch) Accucheck Stat ONCE (09/09/20 11:18) Ed Iv/Invasive Line Start (09/09/20 11:18) Ed Iv/Invasive Line Start (09/09/20 11:18) Vital Signs Stroke Patient Q15M (09/09/20 11:18) O2 (09/09/20 11:18) Intake & Output 06,14,22 (09/09/20 11:18) Monitor-Rhythm Ecg Trace Only (09/09/20 11:18) Dysphagia Screening Tool (09/09/20 11:18) Post Thrombolytic Adminstratio (09/09/20 11:18) Ns Iv 1000 Ml (Sodium Chloride 0.9%) (09/09/20 11:25) Alcohol (09/09/20 12:56) Aspirin Tablet (Aspirin Tablet) (09/09/20 13:15) Vital Signs/I&O 09/09/20 11:15 Temp 36.4 Pulse 74 Resp 20 B/P (MAP) 130/68 (88) Pulse Ox 98 O2 Delivery Room Air Blood Pressure Mean: 88 Progress Progress Note #1: Progress Note Stroke activation was paged upon arrival and patient was immediately brought to CT scan. Patient experienced complete resolution of his symptoms with the exception of may be subtle facial droop. Case was discussed with Dr. Rosas, stroke neurologist at [facility] at 12:00. She advised against TPA since there were no disabling deficits with rapid improvement and greater than 3 hours from last known well time. Work-up was unremarkable. Patient is being admitted for observation. Dr. Walker has been consulted and Dr. Campbell agrees with admission. Progress Note #2: Time: 14:16 Progress Note Patient had resolution of symptoms. His NIH stroke score was 1 because of mild facial droop which he actually believes is his chronic crooked smile. This was considered to be his baseline state. He was able to get up and walk without any difficulty. Patient was going to MRI prior to admission and suddenly developed a flaccid left arm and weak left leg with facial droop as well before getting on the MRI table. New last known well time was then 13:30. Dr. De Paz, stroke neurologist, at [facility] was then consulted. Because there appeared to be complete resolution of symptoms between episodes, TPA could be reconsidered. Dr. De Paz postulated this could be a pontine or brain stem stroke as these sometimes was and wane as they evolve over a longer period of time. No large vessel occlusions were noted on imaging to warrant transfer. Risks and benefits were discussed with the patient. Risks include up to a 6% risk of life-threatening hemorrhage under normal circumstances which may be slightly increased due to his particular circumstances and alcohol dependence. Benefits included possible improvement or resolution of his neurologic deficits. Due to the completely flaccid left arm and significantly weakened left leg, patient elects to accept the risk and received TPA. tPA is now infusing. Admission orders were rewritt en to include admission to the ICU with post stroke and post TPA orders. Dr. Pickett and Dr. Walker were updated. Initial ECG Impression Date: Sep 09, 2020 Initial ECG Impression Time: 12:16 Initial ECG Rate: 72 Initial ECG Rhythm: Normal Sinus Initial ECG Intervals: Normal Initial ECG Impression: Normal Comment Normal sinus rhythm with not ST elevation or depression. RBBB. No axis deviation. Diagnostic Imaging Diagonstic Imaging: CT Plain Films/CT/US/NM/MRI: head Comments CT head viewed by me and report reviewed. See report below: NAME: KENJI CRAIG Mike [facility] REC#: [id number] PT STATUS: REG ER : 1960 PHYSICIAN: EVANGELISTA CUADRA MD ADMIT DATE: 09/09/20/ER Signed Date of Exam:09/09/20 CT HEAD WO-R/O STROKE EXAMINATION: CT head without contrast. TECHNIQUE: Multiple contiguous axial images were obtained through the brain without the use of intravenous contrast. All CT scans use one or more of the following dose optimizing techniques: automated exposure control, MA and/or KvP adjustment based on a patient size and exam type, or iterative reconstruction. HISTORY: Facial droop, slurred speech, and left arm weakness. COMPARISON: None available. FINDINGS: The ventricles and sulci are normal. No abnormal attenuation of brain parenchyma is present. No acute intracranial hemorrhage or abnormal extra-axial fluid collections are present. No hyperdense vessel. The calvarium is intact. The mastoid air cells are clear. Right maxillary sinus polyp versus mucus retention cyst. The orbits are normal. IMPRESSION: 1. No acute intracranial abnormality. Dictated by: Dictated on workstation # [id number] Dict: 09/09/20 1126 Trans: 09/09/20 1138 [facility] [id number] Interpreted by: KENJI QUINTERO DO Electronically signed by: KENJI QUINTERO DO 09/09/20 1138 Diagonstic Imaging: CT (Angiogram head and neck with perfusion scan) Plain Films/CT/US/NM/MRI: other Comments NAME: SHAYDONNAKENJI Mckeon [facility] REC#: [id number] PT STATUS: REG ER : 1960 PHYSICIAN: EVANGELISTA CUADRA MD ADMIT DATE: 09/09/20/ER Signed Date of Exam:09/09/20 CT ANGIO HEAD/NECK PROCEDURE: CT angiography of the head and CT angiography of the neck with and without contrast. TECHNIQUE: Contiguous noncontrast images were obtained from the skull base through the vertex. After intravenous contrast administration, helical CT angiography of the neck was performed. Source data was reformatted into 3D MIP projections. Delayed post contrast acquisition was also obtained. Auto Exposure Controls were utilized during the CT exam to meet ALARA standards for radiation dose reduction. INDICATION: Left facial droop and slurred speech. COMPARISON: CT head of earlier same day FINDINGS: CTA NECK: Aorta: Aortic arch is normal, with standard three vessel branching pattern. Anterior Circulation: The origin of the bilateral common carotid arteries are patent. No stenosis of the common carotid arteries in the neck. No significant stenosis of the internal carotid arteries per NASCET criteria. The cervical segments of the bilateral ICAs are patent. The proximal external carotid arteries are patent and without significant stenosis. Posterior Circulation: Origins of the bilateral vertebral arteries are normal. Vertebral arteries are co-dominant. The proximal extraousseous, intrasosseous, and distal extraosseous segments of the vertebral arteries are patent without dissection or stenosis. Non-vascular: No cervical lymphadenopathy. The airway is patent. No evidence of mucosal-based mass lesion in the pharynx. Thyroid is normal. Salivary glands are normal. No concerning lesion in the cervical spine. CTA HEAD: Anterior Circulation: The distal internal carotid arteries are patent. The bilateral M1 and M2 segments of the middle cerebral arteries are patent and without stenosis. The bilateral M3 divisions are grossly symmetric. The anterior cerebral arteries are patent and without stenosis. Anterior communicating artery is patent. No saccular aneurysm in the anterior circulation. Posterior Circulation: The bilateral intracranial segments of the vertebral arteries are patent. The basilar artery is patent and without stenosis. The posterior cerebral arteries are patent and there is a origin of the left. Bilateral posterior communicating arteries are patent and without aneurysm. No saccular aneurysm in the posterior circulation. Post Contrast Head: No pathologic enhancement on delayed post-contrast enhancement. IMPRESSION: 1. No intra-cranial large vessel occlusion or aneurysm. 2. No arterial occlusion or stenosis in the major neck arteries. Dictated by: Dictated on workstation # [id number] Dict: 09/09/20 1154 Trans: 09/09/20 1201 [facility] [id number] Interpreted by: JULITA FUCHS MD Electronically signed by: JULITA FUCHS MD 09/09/20 1201 NAME: KENJI CRAIG II MED REC#: [id number] PT STATUS: REG ER : 1960 PHYSICIAN: EVANGELISTA CUADRA MD ADMIT DATE: 09/09/20/ER Signed Date of Exam:09/09/20 CT HEAD PERFUSION W/ CONTRAST INDICATION: Left face and arm weakness. Slurred speech. COMPARISON: CTA head and neck performed concurrently. TECHNIQUE: Postcontrast perfusion imaging of the brain was performed. Perfusion maps were created. FINDINGS: The bolus appears adequate for the examination. The relative cerebral blood volume, blood flow, mean transit time, and time to maximal perfusion are normal. There are no perfusion defects. IMPRESSION: No perfusion abnormality to indicate core infarct or penumbra. Dictated by: Dictated on workstation # [id number] Dict: 09/09/20 1149 Trans: 09/09/20 1258 [id number] [id number] Interpreted by: JULITA FUCHS MD Electronically signed by: JULITA FUCHS MD 09/09/20 1258 Diagonstic Imaging: Xray Plain Films/CT/US/NM/MRI: chest Comments NAME: KENJI CRAIG [facility] REC#: [id number] PT STATUS: REG ER : 1960 PHYSICIAN: EVANGELISTA CUADRA MD ADMIT DATE: 09/09/20/ER Signed Date of Exam:09/09/20 CHEST 1 VIEW, AP/PA ONLY Indication: Stroke. Findings: The lungs are clear. There is no effusion, pneumothorax or acute failure pattern. Impression: No acute-appearing abnormality. Dictated by: Dictated on workstation # [id number] Dict: 09/09/20 1147 Trans: 09/09/20 1150 [id number] [id number] Interpreted by: AGUSTIN TRIVEDI Electronically signed by: AGUSTIN TRIVEDI 09/09/20 1150 Reviewed: Reviewed by Me Departure Communication (Admissions) Time/Spoke to Admitting Phy: 12:50 Dr. Campbell Time/Spoke to Consulting Phy: 01:00 Dr. Walker Impression Primary Impression: Acute CVA (cerebrovascular accident) Additional Impressions: Left-sided weakness Alcohol dependence Qualified Codes: F10.29 - Alcohol dependence with unspecified alcohol- induced disorder Disposition: 09 ADMITTED INPATIENT Condition: Improved Admissions Decision to Admit Reason: Admit from ER (General) Decision to Admit/Date: Sep 09, 2020 Time/Decision to Admit Time: 11:17 Departure-Patient Inst. Referrals: HARDY CAMPBELL DO (PCP/Family) Primary Care Physician Scripts Atorvastatin Calcium (Atorvastatin Calcium) 80 Mg Tablet 80 MG PO DAILY for 30 Days, #30 TAB Prov: HARDY CAMPBELL DO 09/11/20 EVANGELISTA CUADRA MD Sep 09, 2020 13:56
[2020-09-09] MEDS ORDERED: ALTEPLASE 100 MG/VIAL (ACTIVASE) IV ONE (14:00)
--- NOTE | 2020-09-09 14:21 | NUR ---
Patient's , Steffany cell # [phone]
[2020-09-09 14:45] VITALS: BP 127/70
[2020-09-09] MEDS ORDERED: 1/2 NS IV SOLUTION 1,000 ML IV PRN (15:11)
[2020-09-09] MEDS ORDERED: LORazepam INJ 2 MG/ML (ATIVAN) VIAL IM/IV PRN (15:15)
[2020-09-09] MEDS ORDERED: LORazepam INJ 2 MG/ML (ATIVAN) VIAL IV PRN (15:15)
[2020-09-09] MEDS ORDERED: CATHETER FLUSH 10 ML SYR IV PRN (15:15)
[2020-09-09] MEDS ORDERED: ONDANSETRON 4 MG (ZOFRAN) ORAL DISSOLVE TAB SL PRN (15:15)
[2020-09-09] MEDS ORDERED: D5 1/2 NS 1000 ML IV SOLUTION 1,000 ML IV PRN (15:15)
[2020-09-09] MEDS ORDERED: LORazepam 1 MG (ATIVAN) TAB PO PRN (15:15)
[2020-09-09] MEDS ORDERED: ASPI-1238 PO (15:26)
[2020-09-09] MEDS ORDERED: POTA10TA PO (15:26)
[2020-09-09] MEDS ORDERED: AMLO-250 PO (15:26)
[2020-09-09] MEDS ORDERED: NAPH15DR6 OU (15:26)
[2020-09-09] MEDS ORDERED: ATEN25TA PO (15:26)
[2020-09-09] MEDS ORDERED: LORA-404 PO (15:26)
--- NOTE | 2020-09-09 15:26 | NUR ---
SPOKE WITH PT (HE HAD HIS HOME MED BOTTLES IN HIS ROOM) AND WENT THRU THE EXT MED HISTORY TO COMPLETE THE MED REC ATENOLOL 25MG- DIRECTIONS SHOW 1 TAB BID HOWEVER PT SAYS HE TAKES 1 TAB DAILY OTC MEDS: OPCON-A EYE DROPS
--- NOTE | 2020-09-09 16:28 | NUR ---
DR FAIRCHILD IN ROOM TO SEE PT, NOTIFIED OF PT C/O WORSENING LEFT SIDE WEAKNESS AND NIH STROKE SCALE OF 10.
--- NOTE | 2020-09-09 16:30 | NUR ---
DR CAMPBELL ALSO NOTIFIED OF PT WORSENING NIH SCALE AND SYMPTOMS.
--- NOTE | 2020-09-09 16:51 | Consultation-Cardiology ---
HPI-Cardiology Cardiology Consultation Date of Consultation 09/09/20 Date of Admission Time Seen by Provider: 16:46 Indication: acute CVA HPI 59 years old gentleman with history of hypertension, hyperlipidemia, tobaccoism and alcoholism. Patient was in his usual state of health until this morning when he started having weakness in his left side. Came into the emergency room by then he was feeling somewhat better then his symptoms evolved and became significantly worse she is totally flaccid on the left side with facial droop. I visited with Dr. Martínez and Dr. Curry, that reported that the stroke team from was activated and patient received TPA. At this time we will continue monitoring. Denied any previous cardiac history. Home Medications & Allergies Allergies: Coded Allergies: No Known Drug Allergies (Unverified , 05/24/19) Home Medication List Reviewed: Yes [id number] Hx Patient Social History Alcohol Use: Regular Use Recreational Drug Use: No Smoking Status: Current Everyday Smoker Type Used: Cigarettes Recent Foreign Travel: No Recent Infectious Disease Expo: No Recent Hopitalizations: No Past Medical History Discussed below Family Medical History Significant Family History: 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/Hx Family History: FH: neuropathy 19 MOTHER Mitral valve prolapse 19 MOTHER Review of Systems-General Review of Systems Constitutional: no symptoms reported, see HPI, malaise, weakness EENTM: see HPI, no symptoms reported Respiratory: see HPI; No cough, No dyspnea on exertion, No hemoptysis, No orthopnea, No phlegm, No short of breath, No stridor, No wheezing, No other Cardiovascular: see HPI; No chest pain, No edema, No Hx of Intervention, No palpitations, No syncope, No vascular heart diseas, No other Gastrointestinal: no symptoms reported, see HPI Genitourinary: no symptoms reported, see HPI Musculoskeletal: see HPI, muscle weakness Skin: no symptoms reported, see HPI Psychiatric/Neurological: See HPI, Weakness (left-sided weakness and facial droop) Reviewed Test Results Reviewed Test Results Lab Laboratory Tests Test 09/09/20 11:50 09/09/20 12:10 Range/Units White Blood Count 6.9 4.3-11.0 10^3/uL Red Blood Count 4.20 L 4.30-5.52 10^6/uL Hemoglobin 16.7 13.3-17.7 g/dL Hematocrit 48 40-54 % Mean Corpuscular Volume 113 H 80-99 fL Mean Corpuscular Hemoglobin 40 H 25-34 pg Mean Corpuscular Hemoglobin Concent 35 32-36 g/dL Red Cell Distribution Width 14.2 10.0-14.5 % Platelet Count 170 130-400 10^3/uL Mean Platelet Volume 10.0 9.0-12.2 fL Immature Granulocyte % (Auto) 0 % Neutrophils (%) (Auto) 71 42-75 % Lymphocytes (%) (Auto) 19 12-44 % Monocytes (%) (Auto) 8 0-12 % Eosinophils (%) (Auto) 2 0-10 % Basophils (%) (Auto) 1 0-10 % Neutrophils # (Auto) 4.9 1.8-7.8 10^3/uL Lymphocytes # (Auto) 1.3 1.0-4.0 10^3/uL Monocytes # (Auto) 0.5 0.0-1.0 10^3/uL Eosinophils # (Auto) 0.1 0.0-0.3 10^3/uL Basophils # (Auto) 0.1 0.0-0.1 10^3/uL Immature Granulocyte # (Auto) 0.0 0.0-0.1 10^3/uL Prothrombin Time 13.8 12.2-14.7 SEC INR Comment 1.0 0.8-1.4 Activated Partial Thromboplast Time 34 24-35 SEC D-Dimer 0.31 0.00-0.49 UG/ML Sodium Level 136 135-145 MMOL/L Potassium Level 3.6 3.6-5.0 MMOL/L Chloride Level 105 98-107 MMOL/L Carbon Dioxide Level 23 21-32 MMOL/L Anion Gap 8 5-14 MMOL/L Blood Urea Nitrogen 14 7-18 MG/DL Creatinine 0.79 0.60-1.30 MG/DL Estimat Glomerular Filtration Rate > 60 BUN/Creatinine Ratio 18 Glucose Level 120 H 70-105 MG/DL Calcium Level 8.2 L 8.5-10.1 MG/DL Corrected Calcium 8.5 8.5-10.1 MG/DL Total Bilirubin 1.2 H 0.1-1.0 MG/DL Aspartate Amino Transf (AST/SGOT) 28 5-34 U/L Alanine Aminotransferase (ALT/SGPT) 24 0-55 U/L Alkaline Phosphatase 127 40-136 U/L Troponin I < 0.028 <0.028 NG/ML Total Protein 6.1 L 6.4-8.2 GM/DL Albumin 3.6 3.2-4.5 GM/DL Serum Alcohol < 10 <10 MG/DL Urine Color YELLOW Urine Clarity CLEAR Urine pH 5.5 5-9 Urine Specific [place] <=1.005 1.016-1.022 Urine Protein NEGATIVE NEGATIVE Urine Glucose (UA) NEGATIVE NEGATIVE Urine Ketones NEGATIVE NEGATIVE Urine Nitrite NEGATIVE NEGATIVE Urine Bilirubin NEGATIVE NEGATIVE Urine Urobilinogen 0.2 < = 1.0 MG/DL Urine Leukocyte Esterase NEGATIVE NEGATIVE Urine RBC (Auto) TRACE-I NEGATIVE Urine RBC 0-2 /HPF Urine WBC NONE /HPF Urine Squamous Epithelial Cells 0-2 /HPF Urine Crystals NONE /LPF Urine Bacteria NEGATIVE /HPF Urine Casts NONE /LPF Urine Mucus SMALL H /LPF Urine Culture Indicated NO Physical Exam Physical Exam Vital Signs Vital Signs - First Documented 09/09/20 11:15 Temp 36.4 Pulse 74 Resp 20 B/P (MAP) 130/68 (88) Pulse Ox 98 O2 Delivery Room Air Capillary Refill : Less Than 3 Seconds Height, Weight, BMI Height: 6'2.00" Weight: 220lbs. 8.8oz. 100.898292pr; 28.00 BMI Method:Stated General Appearance: No Apparent Distress, WD/WN Eyes: Bilateral Eye Normal Inspection, Bilateral Eye PERRL, Bilateral Eye EOMI HEENT: PERRL/EOMI, TMs Normal, Normal ENT Inspection, Pharynx Normal, Moist Mucous Membranes Neck: Full Range of Motion, Normal Inspection, Non Tender, Supple, Carotid Bruit Respiratory: Chest Non Tender, Normal Breath Sounds, No Accessory Muscle Use, No Respiratory Distress Cardiovascular: Regular Rate, Rhythm, No Edema, No Gallop, No JVD, No Murmur, Normal Peripheral Pulses Gastrointestinal: Normal Bowel Sounds, No Organomegaly, No Pulsatile Mass, Non Tender, Soft Back: Normal Inspection, No CVA Tenderness, No Vertebral Tenderness Extremity: Normal Capillary Refill, Normal Inspection, Normal Range of Motion, Non Tender, No Calf Tenderness, No Pedal Edema Neurologic/Psychiatric: Alert, Oriented x3, Other (left side weakness and facial droop) Skin: Normal Color, Warm/Dry Lymphatic: No Adenopathy A/P-Cardiology Admission Diagnosis Acute CVA Hypertension Hyperlipidemia Tobaccoism Assessment/Plan Acute CVA, stroke in evolution, patient received TPA, managed by Dr. Martínez. Still having left hemiparesis Hypertension, restart home medication monitor blood pressure Hyperlipidemia, patient will be starting on statin. Tobaccoism, educated on smoking cessation Alcoholism. Clinical Quality Measures DVT/VTE Risk/Contraindication: Risk Factor Score Per Nursin RFS Level Per Nursing on Admit: 2=Moderate Stroke: Date of last known well: Sep 09, 2020 ALEXIA FAIRCHILD MD Sep 09, 2020 16:51
[2020-09-09] MEDS: LACTATED RINGERS 1,000 ML IV SCH ×2 (17:19→21:54)
[2020-09-09] MEDS: DOCUSATE SODIUM 10 MG/ML 10 ML UDC (COLACE) NG SCH (19:54)
[2020-09-09] MEDS: MAGNESIUM OXIDE (MAG-OX)400 MG TAB PO SCH (19:55)
[2020-09-09] MEDS: DOCUSATE SODIUM 100 MG (COLACE) CAP PO SCH (19:55)
--- NOTE | 2020-09-09 20:17 | History & Physical-Hospitalist ---
History of Present Illness HPI/Chief Complaint CC: TIA HPI:This is a 59yoWM clinic pt of mine for 13 years who has a PMH of severe alcoholism and smoking who presents to the ER with complaints of left sided weakness that was profound but resolved by the time he arrived to the ER. Smoking cessation has been counseled over and over along with alcohol cessation after a critical illness nearly two years ago that he had acute renal failure and severe COPD exacerbation. Overall he remains complicated and non compliant with medication. At this current time we will consult cardiology and monitor closely. 1445: After I saw the patient in ER 8 he suffered another left sided flaccidity episode prompting discussion with [facility] at who recommended tPa for the stuttering CVA so he was agreeable for that plan and was given tPa without complication. Dr Walker evaluated the patient to have decreased LOC but no procedure or medication can be given to modify his course at this time confirmed by [facility]. Will monitor only in the ICU and provide supportive care. Source: patient, RN/MD Exam Limitations: no limitations Date Seen 09/09/20 Time Seen by a Provider: 13:10 Attending Physician Romana Martínez DO PCP Romana Martínez DO Referring Physician Date of Admission Sep 09, 2020 at 13:01 Home Medications & Allergies Home Medications Reviewed patient Home Medication Reconciliation performed by pharmacy medication reconciliations entry level lab technician and/or nursing. Patients Allergies have been reviewed. Allergies Allergies Coded Allergies No Known Drug Allergies (Unverified05/24/19) Past Xmocsyt-Wbtdiw-Nrjzgl Hx Past Med/Social Hx: Reviewed Nursing Past Med/Soc Hx, Reviewed and Corrections made Patient Social History Marrital Status: Employed/Student: employed Alcohol Use: Regular Use Alcohol Beverage of Choice: Rum Recreational Drug Use: No Smoking Status: Current Everyday Smoker Type Used: Cigarettes Recent Foreign Travel: No Contact w/other who traveled: No Recent Hopitalizations: No Recent Infectious Disease Expo: No Seasonal Allergies Seasonal Allergies: Yes Past Medical History Respiratory: COPD, Emphysema, Pneumonia Cardiac: Hypertension Neurological: Neuropathy Sexually Transmitted Disease: No HIV/AIDS: No Genitourinary: Renal Failure Gastrointestinal: Chronic Diarrhea, Irritable Bowel Musculoskeletal: Gout Hearing Impairment: Hard of Hearing Psychosocial: Anxiety, Depression Family History FH: neuropathy 19 MOTHER Mitral valve prolapse 19 MOTHER 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/Hx Review of Systems Constitutional: see HPI, weakness EENTM: other (slurred speech) Respiratory: no symptoms reported Cardiovascular: no symptoms reported Gastrointestinal: no symptoms reported Genitourinary: no symptoms reported Musculoskeletal: no symptoms reported Skin: no symptoms reported Psychiatric/Neurological: Anxiety, Depressed, Weakness (left sided) Physical Exam Physical Exam Vital Signs Vital Signs - First Documented 09/09/20 11:15 Temp 36.4 Pulse 74 Resp 20 B/P (MAP) 130/68 (88) Pulse Ox 98 O2 Delivery Room Air Capillary Refill : Less Than 3 Seconds Height, Weight, BMI Height: 6'2.00" Weight: 220lbs. 8.8oz. 100.855386bl; 28.00 BMI Method:Stated General Appearance: No Apparent Distress, Chronically ill Eyes: Right Eye Normal Inspection, Right Eye PERRL HEENT: PERRL/EOMI, Normal ENT Inspection, Pharynx Normal, Moist Mucous Membranes Neck: Full Range of Motion, Normal Inspection, Non Tender Respiratory: Chest Non Tender, Lungs Clear, Normal Breath Sounds, No Accessory Muscle Use, No Respiratory Distress Cardiovascular: Regular Rate, Rhythm, No Edema, No Gallop, No JVD, No Murmur, Normal Peripheral Pulses Gastrointestinal: Normal Bowel Sounds, No Organomegaly, No Pulsatile Mass, Non Tender, Soft Back: Normal Inspection, No CVA Tenderness, No Vertebral Tenderness Extremity: Normal Capillary Refill, Normal Inspection, Normal Range of Motion, Non Tender, No Calf Tenderness, No Pedal Edema Neurologic/Psychiatric: Alert, Oriented x3, No Motor/Sensory Deficits, Normal Mood/Affect, Other (no weakness on left when I assessed him but after I left he had flaccidity left side) Skin: Normal Color, Warm/Dry Lymphatic: No Adenopathy Results Results/Procedures Labs Laboratory Tests 09/09/20 11:50 Patient resulted labs reviewed. 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 (2) Acute CVA (cerebrovascular accident) Status: Acute (3) Left-sided weakness Status: Acute (4) Alcohol dependence Status: Acute Qualifiers: Substance use status: unspecified alcohol-induced disorder Qualified Codes: F10.29 - Alcohol dependence with unspecified alcohol-induced disorder (5) COPD (chronic obstructive pulmonary disease) (6) Ulcer of great toe Status: Acute (7) Neuropathy Status: Chronic (8) Hypertension Status: Chronic (9) Anxiety Status: Chronic (10) Smoker Status: Chronic Clinical Quality Measures DVT/VTE Risk/Contraindication: Risk Factor Score Per Nursin RFS Level Per Nursing on Admit: 2=Moderate Stroke: Date of last known well: Sep 09, 2020 ROMANA MARTÍNEZ DO Sep 09, 2020 20:17
[2020-09-09] MEDS ORDERED: LORazepam 0.5 MG (ATIVAN) TABLET PO PRN (21:15)
[2020-09-09] MEDS: ONDANSETRON 4 MG/2 ML (SDV) Z0FRAN IV PRN (21:53)
--- NOTE | 2020-09-10 02:18 | Pulmonary Consultation ---
[employer] STUDENT 09/10/20 0218: History of Present Illness History of Present Illness Date Seen by Provider: Sep 10, 2020 Date of Admission Reason for Visit: acute CVA History of Present Illness CC: L sided Weakness HPI: 59 y/o male with hx of COPD, renal failure and regular EtOH use presented to the ER yesterday for L sided weakness onset 0815 that morning. Patient states he was on the way to his wound care and noticed L foot and L arm weakness. After the appointment he went home and went completely flaccid on his L side with facial droop and slurred speech. EMS was called and patient was brought to the ED. Shortly after arrival, patient's symptoms resolved but while on the way to the MRI, he had a second episode of L sided weakness. Dr. De Paz from [facility] was consulted and stated that since his symptoms were completely resolved between the episodes, patient was eligible for tPA which was initiated, noting he believes this might be a pontine/brainstem stroke as they characteristically have symptoms that wax and wane. No larger vessel occlusions noted on CT (CT head with and w/o contrast, CT-A and cxr all negative) to warrant transfer. Patient is now admitted to ICU for observation by Dr. Martínez who will manage supportive care. Dr. Walker consulted, no interventions recommended at this time. Patient currently denies any pain or other complaints save for his total L sided weakness. Allergies and Home Medications Allergies Coded Allergies: No Known Drug Allergies (Unverified , 05/24/19) Home Medications Amlodipine Besylate 5 Mg Tablet, 5 MG PO DAILY, (Reported) Aspirin 81 Mg Tablet.dr, 81 MG PO DAILY, (Reported) Atenolol 25 Mg Tablet, 25 MG PO DAILY, (Reported) Lorazepam 0.5 Mg Tablet, 0.5 MG PO BID PRN for ANXIETY, (Reported) Naphazoline HCl/Pheniramine 15 Ml Drops, 2 DROPS OU QID PRN for EYE REDNESS, (Reported) Potassium Chloride 10 Meq Tablet.er, 10 MEQ PO DAILY, (Reported) Past Qyrwirb-Leeeer-Odgmbx Hx Past Med/Social Hx: Reviewed Nursing Past Med/Soc Hx, Reviewed and Corrections made Patient Social History Alcohol Use: Regular Use Alcohol Beverage of Choice: Rum Recreational Drug Use: No Smoking Status: Current Everyday Smoker Type Used: Cigarettes Recent Foreign Travel: No Contact w/Someone Who Travel: No Recent Infectious Disease Expo: No Recent Hopitalizations: No Seasonal Allergies Seasonal Allergies: Yes Past Medical History Surgeries: Yes (20 YEARS AGO TUMOR REMOVED ( NON CANCER ) ON BLADDER) Respiratory: No Cardiac: Yes (MITRAL VALVE PROLAPSE) Hypertension Neurological: Yes Neuropathy Sexually Transmitted Disease: No HIV/AIDS: No Genitourinary: No Renal Failure Gastrointestinal: Yes (IBS) Chronic Diarrhea, Irritable Bowel Musculoskeletal: Yes Gout Endocrine: No HEENT: Yes Hearing Impairment: Hard of Hearing Cancer: No Psychosocial: Yes (Alcohol dependence) Anxiety, Depression Integumentary: Yes (currently being treated by wound care for abcess on R foot) Family Medical History FH: neuropathy 19 MOTHER Mitral valve prolapse 19 MOTHER 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/Hx Review of Systems Constitutional: No: Fever, Chills Eyes: No: Pain, Redness ENT: No: Throat pain, Throat swelling Respiratory: Cough (chronic); No: SOB with excertion Cardiovascular: No: Chest Pain, Edema Gastrointestinal: Diarrhea (chronic); No: Abdominal Pain Genitourinary: No Dysuria, No Incontinence, No Retention Musculoskeletal: No: neck pain, shoulder pain, arm pain, back pain, hand pain, leg pain, foot pain Skin: No: Rash, Jaundice Neurological: Weakness; No: Numbness Sepsis Event Evaluation Height, Weight, BMI Height: 6'2.00" Weight: 220lbs. 8.8oz. 100.925174za; 28.00 BMI Method:Stated Exam Exam Vital Signs Date Time Temp Pulse Resp B/P (MAP) Pulse Ox O2 Delivery O2 Flow Rate FiO2 09/09/20 23:46 36.9 09/09/20 23:45 96 Room Air 09/09/20 23:00 85 13 155/91 93 Room Air 09/09/20 22:00 74 11 143/84 93 Room Air 09/09/20 21:00 84 21 132/86 97 Room Air 09/09/20 20:00 80 15 157/85 95 Room Air 09/09/20 20:00 96 Room Air 09/09/20 19:32 36.5 09/09/20 19:18 98 Room Air 09/09/20 19:00 72 13 148/85 95 Room Air 09/09/20 19:00 64 09/09/20 18:00 77 17 150/107 94 Room Air 09/09/20 17:00 82 19 175/91 95 Room Air 09/09/20 16:15 73 14 148/88 95 Room Air 09/09/20 16:00 36.4 09/09/20 16:00 Room Air 09/09/20 15:12 72 09/09/20 15:00 Room Air 09/09/20 14:45 36.4 70 20 127/70 (88) 98 Room Air 09/09/20 11:15 36.4 74 20 130/68 (88) 98 Room Air I & O 09/10/20 07:00 Intake Total 1000 ml Output Total 470 ml Balance 530 ml Height & Weight Height: 6'2.00" Weight: 220lbs. 8.8oz. 100.635864fb; 28.00 BMI Method:Stated General Appearance: No Apparent Distress, Chronically ill HEENT: PERRL/EOMI, Normal ENT Inspection, Pharynx Normal, Moist Mucous M embranes; No Scleral Icterus (L), No Scleral Icterus (R) Neck: Full Range of Motion, Normal Inspection, Non Tender; No Carotid Bruit Respiratory: Chest Non Tender, Lungs Clear, Normal Breath Sounds, No Accessory Muscle Use, No Respiratory Distress Cardiovascular: Regular Rate, Rhythm, No Edema, No Murmur, Normal Peripheral Pulses Capillary Refill: Less Than 3 Seconds Gastrointestinal: non tender, soft, no organomegaly, no pulsatile mass Extremity: Normal Capillary Refill, Normal Inspection; No Normal Range of Motion; Non Tender, No Calf Tenderness, No Pedal Edema Neurologic/Psychiatric: Alert, Oriented x3, Normal Mood/Affect, 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 Martínez -admit to ICU for observation and supportive care Hypertension -maintain home medication and monitor Hyperlipidemia -Per cardiology, patient will be starting on statin. Chronic smoker Alcoholism. COPD neuropathy R great toe ulcer anxiety CYNTHIA BUENROSTRO DO 09/10/20 0329: History of Present Illness History of Present Illness Time Seen by Provider: 03:24 Allergies and Home Medications Allergies Coded Allergies: No Known Drug Allergies (Unverified , 05/24/19) Home Medications Amlodipine Besylate 5 Mg Tablet, 5 MG PO DAILY, (Reported) Aspirin 81 Mg Tablet.dr, 81 MG PO DAILY, (Reported) Atenolol 25 Mg Tablet, 25 MG PO DAILY, (Reported) Lorazepam 0.5 Mg Tablet, 0.5 MG PO BID PRN for ANXIETY, (Reported) Naphazoline HCl/Pheniramine 15 Ml Drops, 2 DROPS OU QID PRN for EYE REDNESS, (Reported) Potassium Chloride 10 Meq Tablet.er, 10 MEQ PO DAILY, (Reported) Past Nldhpmu-Ywvlld-Crynod Hx Family Medical History FH: neuropathy 19 MOTHER Mitral valve prolapse 19 MOTHER Review of Systems Time Seen by Provider: 03:24 Assessment/Plan Assessment/Plan Acute CVA w/ L sided weakness -TPA administered -managed by Dr. Martínez -admit to ICU for observation and supportive care -[facility] around - -Repeat CT head today pending -swallow study pending -NPO until after swallow study Nausea -No abdominal pain Hypertension -maintain home medication and monitor Hyperlipidemia -Per cardiology, patient will be starting on statin. Chronic smoker Alcoholism. COPD neuropathy R great toe ulcer anxiety [employer] STUDENT Sep 10, 2020 02:18 CYNTHIA BUENROTSRO DO Sep 10, 2020 03:29
[2020-09-10] MEDS: LACTATED RINGERS 1,000 ML IV SCH ×2 (04:07→15:52)
[2020-09-10] MEDS: MULTIVIT W/MINERALS TAB (THERAGRAN M) PO SCH (06:20)
[2020-09-10] MEDS: THIAMINE 100 MG (VITAMIN B-1) TAB PO SCH (06:20)
[2020-09-10 06:29] LABS: TRIGLYCERIDES 109 MG/DL (<150); VLDL CHOLESTEROL 22 MG/DL (5-40)
[2020-09-10 06:34] LABS: CHOLESTEROL 129 MG/DL (< 200); HDL CHOLESTEROL 43 MG/DL (40-60)
[2020-09-10] MEDS: DOCUSATE SODIUM 10 MG/ML 10 ML UDC (COLACE) NG SCH ×2 (08:17→19:41)
[2020-09-10] MEDS: DOCUSATE SODIUM 100 MG (COLACE) CAP PO SCH ×2 (08:17→19:40)
[2020-09-10] MEDS ORDERED: LOPERAMIDE 2 MG (IMODIUM) TABLET PO PRN (08:45)
--- NOTE | 2020-09-10 08:50 | Diagnostic Imaging Report ---
EXAMINATION: Chest radiograph, portable AP view. DATE: 09/10/2020 2:53 AM hours. INDICATION: 59-year-old male, dyspnea. COMPARISON: September 09, 2020. FINDINGS: Heart size and mediastinal contours are unchanged. There is no identified pneumothorax. There is no large pleural effusion. There is no identified focal airspace consolidation. IMPRESSION: No identified acute cardiopulmonary abnormality. Dictated by: Dictated on workstation # [id number]
--- NOTE | 2020-09-10 09:51 | Physical Therapy Evaluation ---
PT Evaluation-General Medical Diagnosis Admission Date Sep 09, 2020 at 13:01 Medical Diagnosis: CVA Onset Date: Sep 09, 2020 Therapy Diagnosis Therapy Diagnosis: Impaired strength and ROM Height/Weight Height (Feet): 6 Height (Inches): 2.00 Weight (Pounds): 220 Weight (Ounces): 8.8 Precautions Precautions/Isolations: Fall Prevention, Standard Precautions Referral Physician: Mauricio Reason for Referral: Evaluation/Treatment Medical History Pertinent Medical History: Alcoholism, HTN, Neuropathy Additional Medical History Past Medical History Respiratory: COPD, Emphysema, Pneumonia Cardiac: Hypertension Neurological: Neuropathy Sexually Transmitted Disease: No HIV/AIDS: No Genitourinary: Renal Failure Gastrointestinal: Chronic Diarrhea, Irritable Bowel Musculoskeletal: Gout Hearing Impairment: Hard of Hearing Psychosocial: Anxiety, Depression Reviewed History: Yes Social History Home: Single Level Current Living Status: Spouse Entry Into Home: Stairs With Railing PT Steps Into Home: 2 Prior Prior Level of Function SCALE: Activities may be completed with or without assistive devices. 8-Hrkxwhbopp-iqaptdg completes the activity by him/herself with no assistance from a helper. 5-Set-up or Clean-up Assistance-helper sets up or cleans up; patient completes activity. [place] assists only prior to or following the activity. 4-Supervision or Touching Assistance-helper provides verbal cues and/or touching/steadying and/or contact guard assistance as patient completes activity. Assistance may be provided throughout the activity or intermittently. 3-Partial/Moderate Assistance-helper does LESS THAN HALF the effort. [place] lifts, holds or supports trunk or limbs, but provides less than half the effort. 2-Substantial/Maximal Assistance-helper does MORE THAN HALF the effort. [place] lifts or holds trunk or limbs and provides more than half the effort. 4-Acnwvtddt-acfety does ALL the effort. Patient does none of the effort to complete the activity. Or, the assistance of 2 or more helpers is required for the patient to complete the activity. If activity was not attempted, code reason: 7-Patient Refused. 9-Not Applicable-not attempted and the patient did not perform the activity before the current illness, exacerbation or injury. 10-Not Attempted due to Environmental Limitations-(lack of equipment, weather restraints, etc.). 88-Not Attempted due to Medical Conditions or Safety Concerns. Bed Mobility: 6 Transfers (B,C,W/C): 6 Gait: 6 Stairs: 6 Wheelchair Mobility: 9 Indoor Mobility (Ambulation): Independent Stairs: Independent Prior Devices Use: None PT Evaluation-Current Subjective Pt presents supine in bed. Pt agrees to PT. Pt reports no pain. Pt/Family Goals Return home Objective Patient Orientation: Person, Place, Eyes Open, Situation Attachments: [place] Catheter ROM/Strength Strength Lower Extremities R hip flex: 4+/5 L hip flex: <3/5 R knee ext: 5/5 L knee ext: 3/5 R knee flex: 4+/5 L knee flex: 3/5 Sensory Vision: Functional (proper tracking and peripheal vision) Hearing: Functional Sensation Right Lower Extremit: Impaired Sensation Left Lower Extremity: Impaired Sensation Lower Extremities RLE light touch sensation intact L2-L4; impaired at L5; intact at S1 and S2 LLE light touch sensation intact L2; impaired L3-S1; intact at S2 Transfers Lying to Sitting/Side of Bed(Q: 3 Sit to Stand (QC): 3 Chair/Yvq-ul-Jetgs Xfer(QC): 3 Pt required mod assist to sit upright in bed; pt is able to complete sit to stand and bed to chair transfer with min assist and therapist heavily guarding left side. Gait Does the Patient Walk?: No and Walking Goal IS indicated Balance Sitting Static: Good Standing Dynamic: Poor Assessment/Needs Pt is able to maintain static sitting balance after assistance to get torso upright. Pt completes stand-pivot transfer to recliner with min assistance, but with all weight on RLE and tactile/verbal cues to guide movement. Pt is weak and unstable with LLE. Pt is left in recliner with access to call button, all needs have been met, and med student is present in room. Patient instructed to call nurse if he needs to get up for any reason. Rehab Potential: Fair PT Varitype Operator Goals Custodial Goals PT Varitype Operator Goals Time Frame: Sep 17, 2020 Roll Left & Right (QC): 6 Sit to Lying (QC): 4 Lying-Sitting on Side/Bed(QC): 4 Sit to Stand (QC): 4 Walk 10 feet (QC): 3 PT Plan Problem List Problem List: Activity Tolerance, Functional Strength, Safety, Balance, Gait, Transfer, Bed Mobility, ROM Treatment/Plan Treatment Plan: Continue Plan of Care Treatment Plan: Bed Mobility, Education, Functional Activity Francesca, Functional Strength, Gait, Safety, Therapeutic Exercise, Transfers Treatment Duration: Sep 17, 2020 Frequency: 6 times per week Estimated Hrs Per Day: .25 hour per day Patient and/or Family Agrees t: Yes Safety Risks/Education Patient Education: Transfer Techniques, Correct Positioning, Safety Issues Teaching Recipient: Patient Teaching Methods: Demonstration, Discussion Response to Teaching: Reinforcement Needed Discharge Recommendations Plan Pt will work on bed mobility, transfers, gait training and balance training as well as therapeutic exercises to improve strength and ROM. Therapy Discharge Recommendati: Post Acute PT Time/GCodes Time In: 0833 Time Out: 0847 Total Billed Treatment Time: 14 Total Billed Treatment 1 visit EVM KRISTINE CAMARA PT Sep 10, 2020 09:51
[2020-09-10] MEDS: amLODIPine 5 MG (NORVASC) TAB PO SCH (10:11)
[2020-09-10] MEDS: ATENOLOL 25 MG (TENORMIN) TAB PO SCH (10:12)
[2020-09-10] MEDS: MAGNESIUM OXIDE (MAG-OX)400 MG TAB PO SCH ×2 (10:15→20:07)
[2020-09-10] MEDS: KCL 10 MEQ TAB (MICRO K) PO SCH (10:16)
[2020-09-10] MEDS: FOLIC ACID 1 MG TAB PO SCH (10:17)
--- NOTE | 2020-09-10 11:14 | Speech Therapy Progress Note ---
Therapy Progress Note ST attempted to complete BDE per physician order, patient was feeling nauseated and was unable to complete. ST to follow up this afternoon. YUVAL BROOKS Sep 10, 2020 11:14
--- NOTE | 2020-09-10 11:14 | NUR ---
IRF Evaluation Determination: Accepted Chart review complete and findings discussed with Dr. Martínez - patient accepted. Patient's primary insurance provider is [facility]; therefore, prior authorization will need to be obtained. Will continue to follow. Thank you for this referral. Addendum: 09/10/20 at 1339 by FEBRUARY R ARMANI SS Received insurance approval for patient to admit to the [facility], tomorrow, 09/11/20. Dr. Martínez notified.
--- NOTE | 2020-09-10 11:25 | ST Cognitive Linguistic Eval ---
Speech Evaluation-General Medical Diagnosis CVA Onset Date: Sep 09, 2020 Therapy Diagnosis Therapy Diagnosis: Dysarthria, aphasia Referral Referring Physician: Dr. Martínez Medical History Pertinent Medical History: Alcoholism, HTN, Neuropathy Reviewed History: Yes Social History Current Living Status: Spouse Speech PLF-Current Status Prior Level of Function Patient lives at home with his . He was able to be independent for much of his daily needs. Subjective Patient was pleasant and cooperative with the assessment. Language Eval: Auditory Comprehends Simple Yes/No Ques: Functional Indent/Objects Multiple Garcia: Functional Ident/Pics in Multiple Garcia: Functional Follows 1-Step Commands: Functional Follows Complex Directions: Mild Follows General Conversations: Functional Language Eval: Verbal Language Completes Spontaneous Greeting: Functional Produces Auto, Serial Info: Functional Word Finding: Mild Requests Basic Needs: Functional States Basic Personal Info: Functional Expresses Complex Ideas: Mild Objective Cognitive Domain Attention: WNL Memory: WNL Executive Functions: Mild Composite Severity Rating: Mild Objective Formal/Standardized Tests Sub tests of the WAB, informal Speech tasks Results Patient exhibits significant droop on the left side of the face, mild cognitive deficits, WNF for memory and following simple directions Oral Motor/Speech Production Slight decrease in intelligibility due to facial droop Impression Patient is a 59 y/o male who was admitted to the ICU s/p CVA. ST completed bedside aphasia assessment utilizing informal Speech tasks and sub tests of the WAB. The patient's memory is intact for these events. He has mild cognitive deficits related to following directions. He exhibits new onset of facial droop, however speech intelligibility is at 90% with minimal slurring. Patient will receive skilled ST to focus on returning to baseline for speech and cognition. Speech Short Term Goals Short Term Goals Short Term Goals 1) Patient will complete 10 sets of OME with 90% or greater with minimal cues. 2) Patient will complete language activities as directed with 90% or greater with minimal cues. Speech Jail Goals Jail Goals Patient will be able to effectively communicate his wants/needs. Speech-Plan Patient/Family Goals Patient/Family Goals: Patient plans to return home upon discharge from the hospital. Treatment Plan Speech Therapy Treatment Plan: Continue Plan of Care Treatment Duration: Sep 16, 2020 Frequency: 3 times per week Estimated Hrs Per Day: .25 hour per day Rehab Potential: Fair Barriers to Learning: Patient's new onset CVA Pt/Family Agrees to Plan: Yes Safety Risks/Education Teaching Recipient: Patient Teaching Methods: Demonstration, Discussion Response to Teaching: Verbalize Understanding, Return Demonstration Education Topics Provided: Safety within his room, OME's Time Speech Therapy Time In: 08:10 Speech Therapy Time Out: 08:30 Total Billed Time: 20 Billed Treatment Time 1, ANIA CAZARES BETHAN[place] ST Sep 10, 2020 11:24
--- NOTE | 2020-09-10 11:50 | Diagnostic Imaging Report ---
PROCEDURE: CT head without contrast. TECHNIQUE: Multiple contiguous axial images were obtained through the brain without the use of intravenous contrast. Auto Exposure Controls were utilized during the CT exam to meet ALARA standards for radiation dose reduction. INDICATION: Stroke. Correlation is made with prior head CT from one day earlier. Subtle area of low density has developed adjacent to the right lateral ventricle in the region of the gupta radiata extending to the region of the posterior limb of internal capsule. This is likely a subacute infarct. There is no midline shift. No acute intra-axial or extra-axial hemorrhage is detected. Cisterns are patent. Visualized paranasal sinuses are clear. IMPRESSION: Subacute ischemia developing on the right in the region of the gupta radiata as well as posterior limb of the internal capsule. No acute intracranial hemorrhage is detected. Dictated by: Dictated on workstation # [id number]
--- NOTE | 2020-09-10 11:58 | Progress Note - Hospitalist ---
ANAHY FISHER MED STUDENT 09/10/20 1158: Subjective HPI/CC On Admission Date Seen by Provider: Sep 10, 2020 Time Seen by Provider: 08:45 CC: TIA HPI:This is a 59yoWM clinic pt of mine for 13 years who has a PMH of severe alcoholism and smoking who presents to the ER with complaints of left sided weakness that was profound but resolved by the time he arrived to the ER. Smoking cessation has been counseled over and over along with alcohol cessation after a critical illness nearly two years ago that he had acute renal failure and severe COPD exacerbation. Overall he remains complicated and non compliant with medication. At this current time we will consult cardiology and monitor closely. 1445: After I saw the patient in ER 8 he suffered another left sided flaccidity episode prompting discussion with [facility] at who recommended tPa for the stuttering CVA so he was agreeable for that plan and was given tPa without complication. Dr Walker evaluated the patient to have decreased LOC but no proc edure or medication can be given to modify his course at this time confirmed by [facility]. Will monitor only in the ICU and provide supportive care. Subjective/Events-last exam Patient was awake and alert this AM. He is able to move his left toes and somewhat his left foot. Strength is still diminished in left foot compared to right. Left facial droop is still present and is impacting speech, though he does not have difficulty with word finding. Sensation is intact in left upper and lower extremities. Swallow study is pending. Brain MRI has been obtained but not yet resulted. Does not complain about anything else today. Objective Exam Vital Signs Vital Signs Date Time Temp Pulse Resp B/P (MAP) Pulse Ox O2 Delivery O2 Flow Rate FiO2 09/10/20 10:00 83 13 149/88 Room Air 09/10/20 09:00 92 09/10/20 04:02 36.6 Capillary Refill : Less Than 3 Seconds General Appearance: No Apparent Distress Neck: Normal Inspection, Non Tender, Supple Respiratory: Chest Non Tender, Lungs Clear, Normal Breath Sounds, No Accessory Muscle Use, No Respiratory Distress Cardiovascular: Regular Rate, Rhythm, No Edema, No Gallop, No JVD, No Murmur, Normal Peripheral Pulses Gastrointestinal: Non Tender, Soft Extremity: Normal Capillary Refill, Normal Inspection, Non Tender Neurologic/Psychiatric: Alert, Normal Mood/Affect, Abnormal Gait, Facial Droop (left), Motor Weakness (Left upper and lower extremities) Skin: Normal Color, Warm/Dry Results/Procedures Lab Laboratory Tests 09/09/20 11:50 Patient resulted labs reviewed. Imaging: Reviewed Imaging Films, Reviewed Imaging Report Diagnosis/Problems Diagnosis/Problems (1) Acute CVA (cerebrovascular accident) Status: Acute Assessment & Plan: - IRF for continued recovery - PT, ST, OT - Monitor labs after 24 hr period post tPA has ended - Review Brain MRI and swallow study once resulted (2) Left-sided weakness Status: Acute Assessment & Plan: - Discuss IRF for continued recovery - PT, OT, ST (3) Alcoholism Status: Chronic Assessment & Plan: - Monitor for withdrawal symptoms - Thiamine supplementation (4) Smoker Status: Chronic Assessment & Plan: Discuss smoking cessation Clinical Quality Measures DVT/VTE Risk/Contraindication: Risk Factor Score Per Nursin RFS Level Per Nursing on Admit: 2=Moderate Stroke: Date of last known well: Sep 09, 2020 ROMANA CAMPBELL DO 09/11/20 0546: Subjective Subjective/Events-last exam Pt remains mostly flaccid on the left side Will admit to rehab tomorrow MRI confirms acute stroke Moves his left toes a bit Sensation is intact Has a bit of a headache Severe alcoholism and smoking placed him at risk for this whole entire situation Review of Systems Neurological: Weakness, Incoordination Objective Exam General Appearance: No Apparent Distress, WD/WN, Chronically ill Respiratory: Lungs Clear Cardiovascular: Regular Rate, Rhythm Neurologic/Psychiatric: Abnormal Gait, Facial Droop (left), Motor Weakness (Left upper and lower extremities) Assessment/Plan Assessment and Plan Assess & Plan/Chief Complaint Assessment: CVA s/p tPa in ER with left sided flaccidity COPD Smoker ETOHism Neuropathy Right foot wound HTN Anxiety Hypokalemia Plan: ICU admit s/p tPa Home meds 09/10/20: IRF tomorrow Supervisory-Addendum Brief Verification & Attestation Participated in pt care: history, MDM, physical Personally performed: exam, history, MDM, supervision of care Care discussed with: Medical Student Procedures: n/a Results interpretation: Verified all documentation Verification and Attestation of Medical Student E/M Service A medical student performed and documented this service in my presence. I reviewed and verified all information documented by the medical student and made modifications to such information, when appropriate. I personally performed the physical exam and medical decision making. Romana Campbell, Sep 11, 2020,05:46 ANAHY FISHER MED STUDENT Sep 10, 2020 11:58 ROMANA CAMPBELL DO Sep 11, 2020 05:46
--- NOTE | 2020-09-10 12:05 | Diagnostic Imaging Report ---
PROCEDURE: MR imaging of the brain without contrast. TECHNIQUE: Multiplanar, multisequence MR imaging of the brain was performed without contrast. INDICATION: Left-sided weakness and facial drooping. Patient status post TPA. Correlation is made with prior head CT from one day earlier. FINDINGS: Diffusion weighted images demonstrate diffusion restriction in the right gupta radiata extending inferiorly into the posterior limb of the right internal capsule. This is consistent with an acute infarct. The normal expected flow-voids within the carotid siphons are seen. No acute intracranial hemorrhage is seen. Corpus callosum is unremarkable. The sella and parasellar structures are unremarkable. IMPRESSION: Acute nonhemorrhagic infarct right gupta radiata extending into the posterior limb of the right internal capsule. No acute intracranial hemorrhage is detected. Results were called to Dr. Romana Martínez prior to this dictation. Dictated by: Dictated on workstation # [id number]
--- NOTE | 2020-09-10 14:15 | Occupational Therapy Eval ---
OT Evaluation-General/PLF Medical Diagnosis Admission Date Sep 09, 2020 at 13:01 Medical Diagnosis: CVA Onset Date: Sep 09, 2020 Therapy Diagnosis Therapy Diagnosis: decreased ADL status, decreased functional use LUE Height/Weight Height (Feet): 6 Height (Inches): 2.00 Weight (Pounds): 220 Weight (Ounces): 8.8 Precautions Precautions/Isolations: Fall Prevention, Standard Precautions Referral Physician: Mauricio Referral Reason: Evaluation/Treatment Medical History Pertinent Medical History: Alcoholism, HTN, Neuropathy Additional Medical History severe alcoholism/smoking, COPD, emphysema, pneumonia, HTN, neuropathy, renal failure, irritable bowel, gout Current History Pt to ED with c/o L side weakness which was resolved by the time pt arrived at ED. Later pt suffered another L side flaccidity, tPa given. Reviewed History: Yes Social History Home: Single Level Current Living Status: Spouse Entry Into Home: Stairs With Railing Steps Into Home: 2 ADL-Prior Level of Function SCALE: Activities may be completed with or without assistive devices. 4-Klqbucqbzj-etkkrgo completes the activity by him/herself with no assistance from a helper. 5-Set-up or Clean-up Assistance-helper sets up or cleans up; patient completes activity. [place] assists only prior to or following the activity. 4-Supervision or Touching Assistance-helper provides verbal cues and/or touching /steadying and/or contact guard assistance as patient completes activity. Assistance may be provided throughout the activity or intermittently. 3-Partial/Moderate Assistance-helper does LESS THAN HALF the effort. [place] lifts, holds or supports trunk or limbs, but provides less than half the effort. 2-Substantial/Maximal Assistance-helper does MORE THAN HALF the effort. [place] lifts or holds trunk or limbs and provides more than half the effort. 6-Zzjhodasg-arlrtq does ALL the effort. Patient does none of the effort to complete the activity. Or, the assistance of 2 or more helpers is required for the patient to complete the activity. If activity was not attempted, code reason: 7-Patient Refused. 9-Not Applicable-not attempted and the patient did not perform the activity before the current illness, exacerbation or injury. 10-Not Attempted due to Environmental Limitations-(lack of equipment, weather restraints, etc.). 88-Not Attempted due to Medical Conditions or Safety Concerns. ADL PLOF Comments Pt indicates independent with all ADLS and functional mobility at PLOF, no AD/AE Self Care: Independent Functional Cognition: Independent DME/Equipment: Tub/Shower OT Current Status Subjective Pt laying in bed, agreeable to OT evaluation and tx. Current Glasses/Contacts: Yes Hearing Aids: No Dentures/Partials: No Hand Dominance: Right Upper Extremity ROM WFL RUE LUE no active movement, full PROM all joints Upper Extremity Coordination decreased LUE, WFL RUE Upper Extremity Sensation Intact sensation BUEs. Other Treatments Pt laying in bed. OT educated pt on purpose and benefits of OT, he verbalized understanding. Pt then provided information about PLOF and home set up, and participated in UE screen. Pt indicates he has been having difficulty sleeping, OT assisted pt with modifying his environment to facilitate getting some sleep, including closing the blinds. Pt indicates being comfortable. OT educated pt on OT POC while he is in the hospital, he verbalized agreement. Post OT tx, pt laying in bed, call light in reach and all needs met. 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 2=Patient will verbalize/demonstrate understanding of assistive devices/modifications for ADL. 3=Patient will improve strength/tolerance for activity to enable patient to perform ADL's. OT Education/Plan Problem List/Assessment Assessment: Decreased Activ Tolerance, Decreased UE Strength, Impaired Bed Mobility, Impaired Funct Balance, Impaired I ADL's, Impaired Self-Care Skills, Restricted Funct UE ROM Discharge Recommendations Plan/Recommendations: Continue POC Therapy Discharge Recommendati: Post Acute OT Treatment Plan/Plan of Care Patient would benefit from OT for education, treatment and training to promote independence in ADL's, mobility, safety and/or upper extremity function for ADL's. Plan of Care: ADL Retraining, Functional Mobility, UE Funct Exercise/Act Treatment Duration: Sep 19, 2020 Frequency: 5 times per week Estimated Hrs Per Day: .25 hour per day Rehab Potential: Fair Time/GCodes Start Time: 13:22 Stop Time: 13:32 Total Time Billed (hr/min): 10 Billed Treatment Time 1, WILFREDO ROCA OT Sep 10, 2020 14:15
--- NOTE | 2020-09-10 14:31 | ST Dysphagia Evaluation ---
Speech Evaluation-General Medical Diagnosis CVA Onset Date: Sep 09, 2020 Therapy Diagnosis Therapy Diagnosis: Oropharyngeal Dysphagia Precautions Precautions: Aspiration Referral Referring Physician: Dr. Martínez Medical History Pertinent Medical History: Alcoholism, HTN, Neuropathy Reviewed History: Yes Social History Current Living Status: Spouse Speech PLF/Current-Dysphagia Prior Level of Function Patient lives at home with his where he reports he eats anything he wants. Subjective Patient was pleasant and cooperative with the Bedside Dysphagia Evaluation. Cognitive Status Patient Orientation: Person, Place, Situation Oral Motor Skills Dentition: Natural Ability to Follow Directions: Good Patient was NPO pending BDE. Oral Expression Ability: Mild Impairment Due to left side facial droop. Voice Voice Phonatory-Based Quality: Normal Voice Pitch: Normal Voice Loudness: Normal Face Facial Symmetry: Asymmetrical Oral-Facial Assessment Lingual Protrusion: Abnormal Due to left side weakness Lingual ROM: Abnormal Due to left side weakness Lingual Strength: Abnormal Due to left side weakness Pharynx Velopharyngeal Move.: Weak on Left Volitional Dry Swallow: Yes Voluntary Cough: Yes Can Clear Throat Volitionally: Yes Productive Cough: Yes Dysphagia Evaluation Consistencies Presented: Regular, Thin Liquid, Mechanical Soft, Pureed Oral phase is within normal function for all consistencies presented. Pharyngeal phase is within normal function for all consistencies presented with the exception of regular. Funct. Velo/Pharyngeal Symptom: Cough After Swallow With regular texture Dietary Recommendations: Mechanical Soft Liquid Recommendations: Thin Swallowing Precautions: Alternate Liquids/Solids, Double Swallow, Decreased Bolus 1/2 Tsp, Liquids from Straw, Liquids from Spoon, Small Bites and Sips, Sitting Upright 90 Degrees, Sitting 90 Degrees 30 Post Intake, Left Tongue Sweep Dysphagia Evaluation Summary Patient is a pleasant 59 y/o male who was admitted to the ICU s/p CVA. Patient was referred for a BDE by Dr. Martínez to determine least restrictive diet level. The patient was presented thin liquids at 1/2 tsp x2 and small sips via straw x3 without difficulty. The patient was also given 1/2 tsp of puree and mechanical soft without difficulty. Patient was able to clear these consistencies. Patient was given a small piece of cracker which he swallowed piecemeal with mild oral residue noted. Patient also coughed and cleared with the swallow of the cracker. At this time the patient is recommended for a Dysphagia II diet level with thin liquids. This information was provided to his nurse as well as written on the white board in his room. Barriers to Learning Patient's new onset CVA. Speech Short Term Goals Short Term Goals Short Term Goals 1) Patient will complete 10 sets of OME with 90% or greater with minimal cues. 2) Patient will complete language activities as directed with 90% or greater with minimal cues. 3) Patient will tolerate least restrictive diet level without s/s of aspiration at 90% or greater. 4) Patient will utilize compensatory strategies as trained for safe oral intake at 90% with minimal cues. Speech [employer] Goals [employer] Goals Patient will be able to effectively communicate his wants/needs. Patient will maintain adequate nutrition via safe effective swallow function. Speech-Plan Patient/Family Goals Patient/Family Goals: The patient plans on returning to his home where he lives with his . Treatment Plan Speech Therapy Treatment Plan: Continue Plan of Care Treatment Duration: Sep 16, 2020 Frequency: 3 times per week Estimated Hrs Per Day: .25 hour per day Rehab Potential: Fair Barriers to Learning: Patient's new onset CVA. Pt/Family Agrees to Plan: Yes Safety Risks/Education Teaching Recipient: Patient Teaching Methods: Demonstration, Discussion Response to Teaching: Verbalize Understanding, Return Demonstration Education Topics Provided: Safety of oral intake, diet level Time Speech Therapy Time In: 14:00 Speech Therapy Time Out: 14:20 Total Billed Time: 20 Billed Treatment Time 1, OPAL ANGLIN [facility] ST Sep 10, 2020 14:31
[2020-09-10] MEDS: ASPIRIN 300 MG (5 GR) SUPPOSITORY PR SCH (15:52)
--- NOTE | 2020-09-10 16:05 | NUR ---
IRF Attempted to meet with patient to discuss details in relation to rehab program; however, patient appeared to be sleeping as his eyes were closed and did not respond to this real estate underwriter.
--- NOTE | 2020-09-10 16:37 | Cardiology Progress Note ---
Cardiology SOAP Progress Note Objective: I&O/Vital Signs 09/10/20 09/10/20 09/10/20 09/10/20 05:00 06:00 06:42 07:00 Pulse 92 82 72 81 Resp 16 11 14 B/P (MAP) 131/75 147/79 148/80 Pulse Ox 96 96 93 O2 Delivery Room Air Room Air Room Air 09/10/20 09/10/20 09/10/20 09/10/20 08:00 08:00 09:00 10:00 Pulse 78 84 83 Resp 11 10 13 B/P (MAP) 125/79 154/89 149/88 Pulse Ox 94 96 92 O2 Delivery Room Air Room Air Room Air Room Air 09/10/20 09/10/20 09/10/20 12:00 12:37 15:50 Temp 37.0 Pulse 57 Pulse Ox 96 O2 Delivery Room Air 09/10/20 00:00 Intake Total 1000 ml Output Total 320 ml Balance 680 ml Weight (Pounds): 220 Weight (Ounces): 8.8 Weight (Calculated Kilograms): [id number] A/P: Thank you for your consultation. Please call me if you have any questions. Salvatore Hansen MD, FACP, FACC, FSCAI, FHRS, CCDS Interventional Cardiology Cardiac Electrophysiology Vascular Medicine and Endovascular Interventions Clinical Quality Measures Stroke: Date of last known well: Sep 09, 2020 Isamar HANSEN MD Sep 10, 2020 16:37
[2020-09-10] MEDS: ASPIRIN E.C. 325 MG (ECOTRIN) TABLET PO SCH (17:10)
[2020-09-10] MEDS: ONDANSETRON 4 MG/2 ML (SDV) Z0FRAN IV PRN (19:52)
[2020-09-11 04:06] LABS: CHLORIDE 108 MMOL/L (98-107); POTASSIUM 3.8 MMOL/L (3.6-5.0); SODIUM 138 MMOL/L (135-145)
[2020-09-11 04:07] LABS: CALCIUM 8.3 MG/DL (8.5-10.1)
[2020-09-11 04:08] LABS: GLUCOSE 92 MG/DL (70-105)
[2020-09-11 04:09] LABS: CARBON DIOXIDE 18 MMOL/L (21-32)
[2020-09-11 04:11] LABS: PHOSPHORUS 2.4 MG/DL (2.3-4.7)
[2020-09-11 04:12] LABS: BUN/CREATININE RATIO 16; CREATININE SERUM 0.64 MG/DL (0.60-1.30); GFR ESTIMATED > 60
[2020-09-11 04:14] LABS: MAGNESIUM 1.7 MG/DL (1.6-2.4)
--- NOTE | 2020-09-11 04:53 | Pulmonary Progress Note ---
Subjective Time Seen by a Provider: 04:51 Subjective/Events-last exam No complications noted. Sepsis Event Evaluation Height, Weight, BMI Height: 6'2.00" Weight: 220lbs. 8.8oz. [id number]; 28.00 BMI Method:Stated Exam Exam Vital Signs Date Time Temp Pulse Resp B/P (MAP) Pulse Ox O2 Delivery O2 Flow Rate FiO2 09/11/20 03:18 96 Room Air 09/11/20 01:00 80 09/11/20 00:00 82 12 134/79 94 Room Air 09/10/20 23:42 36.4 09/10/20 23:41 96 Room Air 09/10/20 23:00 62 12 113/75 99 Room Air 09/10/20 22:00 64 115/60 99 Room Air 09/10/20 21:00 65 7 115/60 92 Room Air 09/10/20 20:23 37.2 09/10/20 20:00 96 Room Air 09/10/20 20:00 79 18 131/91 92 Room Air 09/10/20 19:00 77 12 137/91 94 Room Air 09/10/20 19:00 80 09/10/20 18:00 81 16 157/83 93 Room Air 09/10/20 17:00 76 14 130/85 95 Room Air 09/10/20 16:00 71 12 126/67 95 Room Air 09/10/20 16:00 96 Room Air 09/10/20 15:50 37.0 09/10/20 15:00 70 12 136/80 Room Air 09/10/20 14:00 78 18 142/79 93 Room Air 09/10/20 13:00 67 20 127/79 94 Room Air 09/10/20 12:37 57 09/10/20 12:00 96 Room Air 09/10/20 12:00 139/91 74 Room Air 09/10/20 11:00 80 17 157/87 Room Air 09/10/20 10:00 83 13 149/88 Room Air 09/10/20 09:00 84 10 154/89 92 Room Air 09/10/20 08:00 96 Room Air 09/10/20 08:00 78 11 125/79 94 Room Air 09/10/20 07:00 81 14 148/80 93 Room Air 09/10/20 06:42 72 09/10/20 06:00 82 11 147/79 96 Room Air 09/10/20 05:00 92 16 131/75 96 Room Air I & O 09/11/20 07:00 Intake Total 1000 ml Output Total 845 ml Balance 155 ml Height & Weight Height: 6'2.00" Weight: 220lbs. 8.8oz. 100.901219lv; 28.00 BMI Method:Stated General Appearance: No Apparent Distress HEENT: PERRL/EOMI, Normal ENT Inspection, Pharynx Normal, Moist Mucous Membranes; No Scleral Icterus (L), No Scleral Icterus (R) Neck: Normal Inspection, Non Tender, Supple Respiratory: Chest Non Tender, Lungs Clear, Normal Breath Sounds, No Accessory Muscle Use, No Respiratory Distress Cardiovascular: Regular Rate, Rhythm, No Edema, No Gallop, No JVD, No Murmur, Normal Peripheral Pulses Capillary Refill: Less Than 3 Seconds Gastrointestinal: non tender, soft, no organomegaly, no pulsatile mass Extremity: Normal Capillary Refill, Normal Inspection, Non Tender Neurologic/Psychiatric: Alert, Normal Mood/Affect, Abnormal Gait, Facial Droop (left), Motor Weakness (Left upper and lower extremities) Skin: Normal Color, Warm/Dry Lymphatic: No Adenopathy Results Lab Laboratory Tests 09/09/20 11:50 09/11/20 03:31 Assessment/Plan Assessment/Plan Acute CVA w/ L sided weakness -TPA administered -swallow study-- passed -PT/OT Nausea -No abdominal pain Hypertension -maintain home medication and monitor Hyperlipidemia -Per cardiology, patient will be starting on statin. Chronic smoker Alcoholism. COPD neuropathy R great toe ulcer anxiety Plan is for ARU today CYNTHIA BUENROSTRO DO Sep 11, 2020 04:53
[2020-09-11 05:04] LABS: BASOPHILS % (AUTO) 0 % (0-10); EOSINOPHILS # (AUTO) 0.2 10^3/uL (0.0-0.3); EOSINOPHILS % (AUTO) 2 % (0-10); HEMATOCRIT 46 % (40-54); HEMOGLOBIN 16.4 g/dL (13.3-17.7); LYMPHOCYTES # (AUTO) 1.4 10^3/uL (1.0-4.0); LYMPHOCYTES % (AUTO) 17 % (12-44); MEAN CORPUSCULAR HEMOGLOBIN 40 pg (25-34); MEAN CORPUSCULAR HGB CONC 36 g/dL (32-36); MEAN CORPUSCULAR VOLUME 112 fL (80-99); MEAN PLATELET VOLUME 10.5 fL (9.0-12.2); MONOCYTES # (AUTO) 0.7 10^3/uL (0.0-1.0); MONOCYTES % (AUTO) 8 % (0-12); NEUTROPHILS # (AUTO) 6.1 10^3/uL (1.8-7.8); NEUTROPHILS % (AUTO) 72 % (42-75); PLATELET COUNT 163 10^3/uL (130-400); WHITE BLOOD COUNT 8.5 10^3/uL (4.3-11.0)
--- NOTE | 2020-09-11 05:51 | Discharge Summary ---
Diagnosis/Chief Complaint Date of Admission Sep 09, 2020 at 13:01 Date of Discharge Discharge Date: Sep 11, 2020 Discharge Diagnosis CVA ischemic type s/p tPa Discharge Summary Discharge Physical Examination Allergies: Coded Allergies: No Known Drug Allergies (Unverified , 05/24/19) Vitals & I&Os Vital Signs Date Time Temp Pulse Resp B/P (MAP) Pulse Ox O2 Delivery O2 Flow Rate FiO2 09/11/20 08:34 36.8 09/11/20 08:00 96 Room Air 09/11/20 06:40 73 09/11/20 06:00 10 141/82 General Appearance: Alert, Oriented X3, Cooperative Respiratory: Clear to Auscultation Cardiovascular: Regular Rate Psych/Mental Status: Mental Status NL Hospital Course Was the Problem List Reviewed?: Yes Patient is a 59 y.o. male who presented to the ED on 09/09 for weakness of the left arm and leg and left facial droop. He has a history of severe alcohol and tobacco use. He experienced resolution of symptoms while in the ED. CT of the head was unremarkable initially. His symptoms then returned while in the ED on the way to the MRI. NIH stroke scale of 10 in ED. CVA center was consulted to see if he was a candidate for tPA and tPA was administered on their recommendation. Patient tolerated well and was admitted for further observation. 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 He regained some ability to wiggle his left foot and toes, but has yet to regain movement in the arm or the rest of the leg. Morning of discharge from the floor he was feeling optimistic and ready for therapy. He is motivated to improve in IRF. Caren Blanco, [facility] Labs (last 24 hrs) Laboratory Tests 09/09/20 11:50: White Blood Count 6.9, Red Blood Count 4.20L, Hemoglobin 16.7, Hematocrit 48, Mean Corpuscular Volume 113H, Mean Corpuscular Hemoglobin 40H, Mean Corpuscular Hemoglobin Concent 35, Red Cell Distribution Width 14.2, Platelet Count 170, Mean Platelet Volume 10.0, Immature Granulocyte % (Auto) 0, Neutrophils (%) (Auto) 71, Lymphocytes (%) (Auto) 19, Monocytes (%) (Auto) 8, Eosinophils (%) (Auto) 2, Basophils (%) (Auto) 1, Neutrophils # (Auto) 4.9, Lymphocytes # (Auto) 1.3, Monocytes # (Auto) 0.5, Eosinophils # (Auto) 0.1, Basophils # (Auto) 0.1, Immature Granulocyte # (Auto) 0.0, Prothrombin Time 13.8, INR Comment 1.0, Activated Partial Thromboplast Time 34, D-Dimer 0.31, Sodium Level 136, Potassium Level 3.6, Chloride Level 105, Carbon Dioxide Level 23, Anion Gap 8, Blood Urea Nitrogen 14, Creatinine 0.79, Estimat Glomerular Filtration Rate > 60, BUN/Creatinine Ratio 18, Glucose Level 120H, Calcium Level 8.2L, Corrected Calcium 8.5, Total Bilirubin 1.2H, Aspartate Amino Transf (AST/SGOT) 28, Alanine Aminotransferase (ALT/SGPT) 24, Alkaline Phosphatase 127, Troponin I < 0.028, Total Protein 6.1L, Albumin 3.6, Triglycerides Level 109, Cholesterol Level 129, LDL Cholesterol Direct 80, VLDL Cholesterol 22, HDL Cholesterol 43, Serum Alcohol < 10 09/09/20 12:10: Urine Color YELLOW, Urine Clarity CLEAR, Urine pH 5.5, Urine Specific [place] <=1.005, Urine Protein NEGATIVE, Urine Glucose (UA) NEGATIVE, Urine Ketones NEGATIVE, Urine Nitrite NEGATIVE, Urine Bilirubin NEGATIVE, Urine Urobilinogen 0.2, Urine Leukocyte Esterase NEGATIVE, Urine RBC (Auto) TRACE-I, Urine RBC 0-2, Urine WBC NONE, Urine Squamous Epithelial Cells 0-2, Urine Crystals NONE, Urine Bacteria NEGATIVE, Urine Casts NONE, Urine Mucus SMALLH, Urine Culture Indicated NO 09/11/20 03:31: Sodium Level 138, Potassium Level 3.8, Chloride Level 108H, Carbon Dioxide Level 18L, Anion Gap 12, Blood Urea Nitrogen 10, Creatinine 0.64, Estimat Glomerular Filtration Rate > 60, BUN/Creatinine Ratio 16, Glucose Level 92, Calcium Level 8.3L, Phosphorus Level 2.4, Magnesium Level 1.7 09/11/20 04:41: White Blood Count 8.5, Red Blood Count 4.11L, Hemoglobin 16.4, Hematocrit 46, Mean Corpuscular Volume 112H, Mean Corpuscular Hemoglobin 40H, Mean Corpuscular Hemoglobin Concent 36, Red Cell Distribution Width 13.9, Platelet Count 163, Mean Platelet Volume 10.5, Immature Granulocyte % (Auto) 0, Neutrophils (%) (Auto) 72, Lymphocytes (%) (Auto) 17, Monocytes (%) (Auto) 8, Eosinophils (%) (Auto) 2, Basophils (%) (Auto) 0, Neutrophils # (Auto) 6.1, Lymphocytes # (Auto) 1.4, Monocytes # (Auto) 0.7, Eosinophils # (Auto) 0.2, Basophils # (Auto) 0.0, Immature Granulocyte # (Auto) 0.0 Pending Labs Laboratory Tests 09/09/20 11:50: White Blood Count 6.9, Red Blood Count 4.20, Hemoglobin 16.7, Hematocrit 48, Mean Corpuscular Volume 113, Mean Corpuscular Hemoglobin 40, Mean Corpuscular Hemoglobin Concent 35, Red Cell Distribution Width 14.2, Platelet Count 170, Mean Platelet Volume 10.0, Immature Granulocyte % (Auto) 0, Neutrophils (%) (Auto) 71, Lymphocytes (%) (Auto) 19, Monocytes (%) (Auto) 8, Eosinophils (%) (Auto) 2, Basophils (%) (Auto) 1, Neutrophils # (Auto) 4.9, Lymphocytes # (Auto) 1.3, Monocytes # (Auto) 0.5, Eosinophils # (Auto) 0.1, Basophils # (Auto) 0.1, Immature Granulocyte # (Auto) 0.0, Prothrombin Time 13.8, INR Comment 1.0, Activated Partial Thromboplast Time 34, D-Dimer 0.31, Sodium Level 136, Potassium Level 3.6, Chloride Level 105, Carbon Dioxide Level 23, Anion Gap 8, Blood Urea Nitrogen 14, Creatinine 0.79, Estimat Glomerular Filtration Rate > 60, BUN/Creatinine Ratio 18, Glucose Level 120, Calcium Level 8.2, Corrected Calcium 8.5, Total Bilirubin 1.2, Aspartate Amino Transf (AST/SGOT) 28, Alanine Aminotransferase (ALT/SGPT) 24, Alkaline Phosphatase 127, Troponin I < 0.028, Total Protein 6.1, Albumin 3.6, Triglycerides Level 109, Cholesterol Level 129, LDL Cholesterol Direct 80, VLDL Cholesterol 22, HDL Cholesterol 43, Serum Alcohol < 10 09/09/20 12:10: Urine Color YELLOW, Urine Clarity CLEAR, Urine pH 5.5, Urine Specific [place] <=1.005, Urine Protein NEGATIVE, Urine Glucose (UA) NEGATIVE, Urine Ketones NEGATIVE, Urine Nitrite NEGATIVE, Urine Bilirubin NEGATIVE, Urine Urobilinogen 0.2, Urine Leukocyte Esterase NEGATIVE, Urine RBC (Auto) TRACE-I, Urine RBC 0-2, Urine WBC NONE, Urine Squamous Epithelial Cells 0-2, Urine Crystals NONE, Urine Bacteria NEGATIVE, Urine Casts NONE, Urine Mucus SMALL, Urine Culture Indicated NO 09/11/20 03:31: Sodium Level 138, Potassium Level 3.8, Chloride Level 108, Carbon Dioxide Level 18, Anion Gap 12, Blood Urea Nitrogen 10, Creatinine 0.64, Estimat Glomerular Filtration Rate > 60, BUN/Creatinine Ratio 16, Glucose Level 92, Calcium Level 8.3, Phosphorus Level 2.4, Magnesium Level 1.7 09/11/20 04:41: White Blood Count 8.5, Red Blood Count 4.11, Hemoglobin 16.4, Hematocrit 46, Mean Corpuscular Volume 112, Mean Corpuscular Hemoglobin 40, Mean Corpuscular Hemoglobin Concent 36, Red Cell Distribution Width 13.9, Platelet Count 163, Mean Platelet Volume 10.5, Immature Granulocyte % (Auto) 0, Neutrophils (%) (Auto) 72, Lymphocytes (%) (Auto) 17, Monocytes (%) (Auto) 8, Eosinophils (%) (Auto) 2, Basophils (%) (Auto) 0, Neutrophils # (Auto) 6.1, Lymphocytes # (Auto) 1.4, Monocytes # (Auto) 0.7, Eosinophils # (Auto) 0.2, Basophils # (Auto) 0.0, Immature Granulocyte # (Auto) 0.0 Discharge Home Medications: Active Scripts Active Atorvastatin Calcium 80 Mg Tablet 80 Mg PO DAILY 30 Days Reported Opcon-A Eye Drops (Naphazoline HCl/Pheniramine) 15 Ml Drops 2 Drops OU QID PRN Atenolol 25 Mg Tablet 25 Mg PO DAILY Ativan (Lorazepam) 0.5 Mg Tablet 0.5 Mg PO BID PRN K-Tab ER (Potassium Chloride) 10 Meq Tablet.er 10 Meq PO DAILY Aspirin EC (Aspirin) 81 Mg Tablet.dr 81 Mg PO DAILY Amlodipine Besylate 5 Mg Tablet 5 Mg PO DAILY Instructions to patient/family Please see electronic discharge instructions given to patient. Diagnosis/Problems Diagnosis/Problems (1) tPA adm status 24 hr [employer] (2) Acute CVA (cerebrovascular accident) Status: Acute (3) Left-sided weakness Status: Acute (4) Alcohol dependence Status: Acute Qualifiers: Qualified Codes: F10.29 - Alcohol dependence with unspecified alcohol- induced disorder (5) COPD (chronic obstructive pulmonary disease) (6) Ulcer of great toe Status: Acute (7) Neuropathy Status: Chronic (8) Hypertension Status: Chronic (9) Anxiety Status: Chronic (10) Smoker Status: Chronic Clinical Quality Measures DVT/VTE Risk/Contraindication: Risk Factor Score Per Nursin RFS Level Per Nursing on Admit: 2=Moderate Stroke: Date of last known well: Sep 09, 2020 HARDY CAMPBELL DO Sep 11, 2020 05:51
[2020-09-11] MEDS: THIAMINE 100 MG (VITAMIN B-1) TAB PO SCH (06:26)
[2020-09-11] MEDS: MULTIVIT W/MINERALS TAB (THERAGRAN M) PO SCH (06:26)
--- NOTE | 2020-09-11 07:29 | Diagnostic Imaging Report ---
INDICATION: Dyspnea. Comparison made with prior examination from 09/10/2020 FINDINGS: There is mild venous congestion. There is patchy right basal infiltrate. Mediastinum is unremarkable. There is no pleural effusion or pneumothorax IMPRESSION: Patchy right basal infiltrate and mild central pulmonary venous congestion . Dictated by: Dictated on workstation # [id number]
[2020-09-11] MEDS: DOCUSATE SODIUM 100 MG (COLACE) CAP PO SCH (08:01)
[2020-09-11] MEDS: DOCUSATE SODIUM 10 MG/ML 10 ML UDC (COLACE) NG SCH (08:01)
[2020-09-11] MEDS: ASPIRIN 300 MG (5 GR) SUPPOSITORY PR SCH (08:02)
[2020-09-11] MEDS: KCL 10 MEQ TAB (MICRO K) PO SCH (08:22)
[2020-09-11] MEDS: amLODIPine 5 MG (NORVASC) TAB PO SCH (08:22)
[2020-09-11] MEDS: MAGNESIUM OXIDE (MAG-OX)400 MG TAB PO SCH (08:22)
[2020-09-11] MEDS: ASPIRIN E.C. 325 MG (ECOTRIN) TABLET PO SCH (08:22)
[2020-09-11] MEDS: ATENOLOL 25 MG (TENORMIN) TAB PO SCH (08:22)
[2020-09-11] MEDS: FOLIC ACID 1 MG TAB PO SCH (08:22)
[2020-09-11] MEDS ORDERED: ATOR80TA76 PO (08:29)
--- NOTE | 2020-09-11 18:35 | Cardiology Progress Note ---
Cardiology SOAP Progress Note Objective: I&O/Vital Signs 09/11/20 09/11/20 09/11/20 06:40 08:00 08:34 Temp 36.8 Pulse 73 Pulse Ox 96 O2 Delivery Room Air 09/11/20 00:00 Intake Total 725 ml Output Total 470 ml Balance 255 ml Weight (Pounds): 220 Weight (Ounces): 8.8 Weight (Calculated Kilograms): 100.762462 Results/Procedures: Labs Laboratory Tests 09/11/20 03:31: Sodium Level 138, Potassium Level 3.8, Chloride Level 108H, Carbon Dioxide Level 18L, Anion Gap 12, Blood Urea Nitrogen 10, Creatinine 0.64, Estimat Glomerular Filtration Rate > 60, BUN/Creatinine Ratio 16, Glucose Level 92, Calcium Level 8.3L, Phosphorus Level 2.4, Magnesium Level 1.7 09/11/20 04:41: White Blood Count 8.5, Red Blood Count 4.11L, Hemoglobin 16.4, Hematocrit 46, Mean Corpuscular Volume 112H, Mean Corpuscular Hemoglobin 40H, Mean Corpuscular Hemoglobin Concent 36, Red Cell Distribution Width 13.9, Platelet Count 163, Mean Platelet Volume 10.5, Immature Granulocyte % (Auto) 0, Neutrophils (%) (Auto) 72, Lymphocytes (%) (Auto) 17, Monocytes (%) (Auto) 8, Eosinophils (%) (Auto) 2, Basophils (%) (Auto) 0, Neutrophils # (Auto) 6.1, Lymphocytes # (Auto) 1.4, Monocytes # (Auto) 0.7, Eosinophils # (Auto) 0.2, Basophils # (Auto) 0.0, Immature Granulocyte # (Auto) 0.0 A/P: Thank you for your consultation. Please call me if you have any questions. Salvatore Hansen MD, FACP, FACC, FSCAI, FHRS, CCDS Interventional Cardiology Cardiac Electrophysiology Vascular Medicine and Endovascular Interventions Clinical Quality Measures Stroke: Date of last known well: Sep 09, 2020 Isamar HANSEN MD Sep 11, 2020 18:35
== END 2020-09-11 09:44 | DRG 62 ==
LOC: EDUNIT# 11:15 → ER 11:16 → CSD 13:01 → OBSVTOIN 13:01 → ICU 14:08
PROVIDERS: ADMIT Internal Medicine; ATTEND Internal Medicine
DX: I63.9 Cerebral infarction, unspecified (principal); G81.94 Hemiplegia, unspecified affecting left nondominant side; R29.810 Facial weakness; R47.81 Slurred speech; F10.20 Alcohol dependence, uncomplicated; F17.210 Nicotine dependence, cigarettes, uncomplicated; J43.9 Emphysema, unspecified; I10 Essential (primary) hypertension; J30.2 Other seasonal allergic rhinitis; R29.710 NIHSS score 10; I34.1 Nonrheumatic mitral (valve) prolapse; G62.9 Polyneuropathy, unspecified; E78.5 Hyperlipidemia, unspecified; L97.519 Non-pressure chronic ulcer of other part of right foot with unspecified severity; K58.0 Irritable bowel syndrome with diarrhea; M10.9 Gout, unspecified; H91.90 Unspecified hearing loss, unspecified ear; F41.9 Anxiety disorder, unspecified; F32.9 Major depressive disorder, single episode, unspecified; Z91.14 Patient's other noncompliance with medication regimen
CPT/HCPCS: 0042T; 36415; 70450; 70496; 70498; 70551; 71045; 80048; 80053; 80061; 80320; 81000; 83735; 84100; 84484; 85025; 85379; 85610; 85730; 93005; 93041; 93306; 94664

== ENCOUNTER → 2020-09-09 | Outpatient (CLI) | payer BC ==
[~2020-09-09] MED LIST changes: +ATOR80TA76 PO; +LORA-404 PO; +NAPH15DR6 OU; +POTA10TA PO
== END ==
LOC: WOUNDCARE 08:15
PROVIDERS: ATTEND Surgery
DX: G45.9 Transient cerebral ischemic attack, unspecified (principal); G60.8 Other hereditary and idiopathic neuropathies; L97.512 Non-pressure chronic ulcer of other part of right foot with fat layer exposed; I96 Gangrene, not elsewhere classified
CPT/HCPCS: 99212

== ENCOUNTER 2020-09-11 09:41 | Inpatient (IN) | payer BC ==
[~2020-09-11] VITALS: Ht 187 cm; Wt 94.6 kg
--- NOTE | 2020-09-11 09:25 | NUR ---
Kenji Francisco" Mirella admitted to room 232-1, with an admitting diagnosis of CVA, on 09/11/20 from ICU via wheelchair, accompanied by staff.KENJI CRAIG II introduced to surroundings, call light, bed controls, phone, TV, temperature control, lights, meal times, smoking policy, visitor policy, side rail policy, bathrooms and showers. Patient Rights given to patient in the handbook.KENJI CRAIG II verbalizes understanding that [facility] is not responsible for the loss or damage to any personal effects or valuables that are kept in the patients possession during their hospitalization. The following Patient Care Plans were discussed with the patient: Discharge Planning, Risk for Falls, and CVA. KENJI CRAIG II verbalizes understanding of Interdisciplinary Patient Education. Patient and/or family were informed about the Rapid Response Team and its purpose.
[2020-09-11] MEDS: polyethylene glycoL POWDER 17 GM (MIRALAX) PACK PO SCH ×2 (09:30→19:30)
[~2020-09-11 09:41] MED LIST changes: +ALPRAZolam 0.25 MG (XANAX) TAB PO PRN; +ATOR80TA76 PO; +BISACODYL 10 MG SUPP (DULCOLAX) PR PRN; +DOCUSATE SODIUM 100 MG (COLACE) CAP PO PRN; +DOCUSATE SODIUM 100 MG (COLACE) CAP PO SCH; +FLEET ENEMA ADULT 1 EA BTL PR PRN; +LACTULOSE SYRUP 10GM/15ML (ENULOSE) 30ML UDC PO PRN; +LOPERAMIDE 2 MG (IMODIUM) TABLET PO PRN; +LORA-404 PO; +NAPH15DR6 OU; +ONDANSETRON 4 MG (ZOFRAN) ORAL DISSOLVE TAB PO PRN; +POTA10TA PO; +diphenhydrAMINE 25 MG TAB (BENADRYL) PO PRN; +guaiFENesin/CODEINE (ROBITUSSIN AC) 10ML UDC PO PRN
[2020-09-11 09:58] VITALS: BP 140/73
[2020-09-11] MEDS: SENNA W/DOCUSATE (SENOKOT S) TABLET PO SCH ×2 (10:00→19:30)
[2020-09-11] MEDS ORDERED: LOPERAMIDE 2 MG (IMODIUM) TABLET PO PRN (10:30)
[2020-09-11] MEDS ORDERED: LORazepam 1 MG (ATIVAN) TAB PO PRN (10:30)
[2020-09-11] MEDS ORDERED: LORazepam 0.5 MG (ATIVAN) TABLET PO PRN (10:30)
[2020-09-11] MEDS ORDERED: CATHETER FLUSH 10 ML SYR IV PRN (10:30)
[2020-09-11] MEDS ORDERED: ONDANSETRON 4 MG (ZOFRAN) ORAL DISSOLVE TAB SL PRN (10:30)
[2020-09-11] MEDS ORDERED: LORazepam INJ 2 MG/ML (ATIVAN) VIAL IM/IV PRN (10:30)
[2020-09-11] MEDS ORDERED: ONDANSETRON 4 MG/2 ML (SDV) Z0FRAN IV PRN (10:30)
--- NOTE | 2020-09-11 10:32 | PM&R Post Admission Assessment ---
PM&R Date of Visit: Sep 11, 2020 Time of Visit: 10:00 History of Present Illness CC: Catastrophic CVA with left sided flaccidity HPI: This is a 59yoWM clinic patient of mine for the past 13 years who has a h/o anxiety, HTN and severe alcoholism with continued smoking along with severe neuropathy and foot wounds and COPD with severe illness 2 years ago requiring 3 weeks in hospital on IV abx and Vapotherm who continued to use alcohol and still smoking who presents to the IRF following catastrophic CVA on Tuesday. TIA dx by Dr Christie Tuesday morning after he graduated from wound care with healed right toe ulcer but resolved but again returned when he was at home to the point he could make it to his appt with me scheduled for 120pm and called EMS due to left side weakness and flaccidity. CVA protocol ensued but by the time CT scan was done his NIH score was 1. 30 minutes after I saw him in the ER the flaccidity returned prompting stroke center call and tPa was administered. Left sided weakness has not returned so he comes to rehab for aggressive therapy in order to return home to live with his . 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 No dysphagia and no aspiration risk per ST. No bowel or bladder dysfunction also. ICU Hospital course: Patient is a 59 y.o. male who presented to the ED on 09/09 for weakness of the left arm and leg and left facial droop. He has a history of severe alcohol and tobacco use. He experienced resolution of symptoms while in the ED. CT of the head was unremarkable initially. His symptoms then returned while in the ED on the way to the MRI. NIH stroke scale of 10 in ED. CVA center was consulted to see if he was a candidate for tPA and tPA was administered on their recommendation. Patient tolerated well and was admitted for further observation. 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 He regained some ability to wiggle his left foot and toes, but has yet to regain movement in the arm or the rest of the leg. Morning of discharge from the floor he was feeling optimistic and ready for therapy. He is motivated to improve in IRF. (Caren Blanco, [facility]) Past Lzsuutz-Yuhbgc-Zqsqic Hx Past Med/Social Hx: Reviewed Nursing Past Med/Soc Hx, Reviewed and Corrections made Patient Social History Marrital Status: Employed/Student: employed Alcohol Use: Regular Use Alcohol Beverage of Choice: Rum Smoking Status: Current Everyday Smoker Type Used: Cigarettes Recent Foreign Travel: No Contact w/other who traveled: No Recent Hopitalizations: No Recent Infectious Disease Expo: No Seasonal Allergies Seasonal Allergies: Yes Past Medical History Respiratory: COPD, Emphysema, Pneumonia Cardiac: Hypertension Neurological: Neuropathy, Stroke (09/09/20) Sexually Transmitted Disease: No HIV/AIDS: No Genitourinary: Renal Failure Gastrointestinal: Chronic Diarrhea, Irritable Bowel Musculoskeletal: Gout Hearing Impairment: Hard of Hearing Psychosocial: Anxiety, Depression Family History FH: neuropathy 19 MOTHER Mitral valve prolapse 19 MOTHER 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/Hx 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 PM&R Allergy/Meds/Data Review Allergies Coded Allergies: No Known Drug Allergies (Unverified , 05/24/19) Home Medications Scheduled Amlodipine Besylate (Amlodipine Besylate), 5 MG PO DAILY, (Reported) Aspirin (Aspirin EC), 81 MG PO DAILY, (Reported) Atenolol (Atenolol), 25 MG PO DAILY, (Reported) Atorvastatin Calcium (Atorvastatin Calcium), 80 MG PO DAILY Potassium Chloride (K-Tab ER), 10 MEQ PO DAILY, (Reported) Scheduled PRN Lorazepam (Ativan), 0.5 MG PO BID PRN for ANXIETY, (Reported) Naphazoline HCl/Pheniramine (Opcon-A Eye Drops), 2 DROPS OU QID PRN for EYE REDNESS, (Reported) Discontinued Medications Amlodipine Besylate (Amlodipine Besylate), 5 MG PO DAILY Discontinued Reason: Duplicate Order Aspirin (Aspirin EC), 81 MG PO DAILY Discontinued Reason: Duplicate Order Atenolol (Atenolol), 25 MG PO BID Discontinued Reason: No Longer Taking Clopidogrel Bisulfate (Clopidogrel), 75 MG PO DAILY Discontinued Reason: No Longer Taking Hydralazine HCl (Hydralazine HCl), 25 MG PO TID Discontinued Reason: No Longer Taking Hydrocodone Bit/Acetaminophen (Lortab 5 Mg Tablet), 1 TAB PO BID PRN for PAIN- MODERATE, (Reported) Discontinued Reason: No Longer Taking Ipratropium/Albuterol Sulfate (Iprat-Albut 0.5-3(2.5) mg/3 ml), 3 ML INH RTQ4HR Discontinued Reason: Duplicate Order Lorazepam (Lorazepam), 0.5 MG PO DAILY, (Reported) Discontinued Reason: Duplicate Order Lorazepam (Lorazepam), 0.5 MG PO HS PRN for ANXIETY, (Reported) Discontinued Reason: Duplicate Order Potassium Chloride (Potassium Chloride), 10 MEQ PO DAILY, (Reported) Discontinued Reason: No Longer Taking Current Medications Current Medications Reviewed Review of Systems Constitutional: see HPI, malaise, weakness EENTM: no symptoms reported Respiratory: no symptoms reported Cardiovascular: no symptoms reported Gastrointestinal: no symptoms reported Genitourinary: no symptoms reported Musculoskeletal: no symptoms reported Skin: no symptoms reported Psychiatric/Neurological: Anxiety, Depressed, Paresthesia, Tingling, Weakness All Other Systems Reviewed Negative Unless Noted: Yes Physical Exam Physical Exam Vital Signs Vital Signs - First Documented 09/11/20 09:58 Temp 36.2 Pulse 68 Resp 18 B/P (MAP) 140/73 Pulse Ox 98 O2 Delivery Room Air Capillary Refill : Height, Weight, BMI Height: 6'2.00" Weight: 220lbs. 8.8oz. [id number]; 28.59 BMI Method:Stated General Appearance: No Apparent Distress, WD/WN, Anxious, Chronically ill Eyes: Bilateral Eye Normal Inspection, Bilateral Eye PERRL HEENT: PERRL/EOMI, Normal ENT Inspection, Pharynx Normal Neck: Full Range of Motion, Normal Inspection, Non Tender, Supple, Carotid Bruit Respiratory: Chest Non Tender, Lungs Clear, Normal Breath Sounds, No Accessory Muscle Use, No Respiratory Distress Cardiovascular: Regular Rate, Rhythm, No Edema, No Gallop, No JVD, No Murmur, Normal Peripheral Pulses Gastrointestinal: Normal Bowel Sounds, No Organomegaly, No Pulsatile Mass, Non Tender, Soft Back: Normal Inspection, No CVA Tenderness, No Vertebral Tenderness Extremity: Normal Capillary Refill, Normal Inspection, Normal Range of Motion (except left side weakness), Non Tender, No Calf Tenderness, No Pedal Edema Neurologic/Psychiatric: Alert, Oriented x3, Normal Mood/Affect, metal bumper II-XII Norm as Tested, Abnormal Gait, Depressed Affect, Facial Droop (left), Motor Weakness (left sided flaccidity) Skin: Normal Color, Warm/Dry Lymphatic: No Adenopathy PM&R Medical Assessment & Plan REHAB/MEDICAL ASSESSMENT AND PLAN: REHAB IMPAIRMENT GROUP: CVA ETIOLOGIC DIAGNOSIS: CVA The comorbidities that impact the patients function and/or functional outcome by: alcoholism, smoking, COPD, catastrophic CVA deficits, anxiety, depression REHAB PLAN: The patient is being admitted to our comprehensive inpatient rehabilitation facility and can tolerate the intensity of service consisting of at least: 180 minutes of therapy a day, 5 out of 7 days a week Rehab treatment will consist of: PT OT will focus on regaining function in left side arm and leg and help ambulate and increase stamina The patient/family has a good understanding of our discharge process and will benefit from an interdisciplinary inpatient rehabilitation program. The patient has potential to make improvement and is in need of at least two of the following multidisciplinary therapies including but not limited to physical, occupational, speech, and prosthetics and orthotics. Additionally the patient will need services from respiratory, nutritional services, wound care, psychology, etc. (Customize this to each patient). Given the patients complex condition and risk of further medical complications, rehabilitation services cannot be safely or effectively provided at a lower level of care such as a penitentiary facility. BARRIERS TO DISCHARGE: Catastrophic CVA ESTIMATED LOS: 14 days DISPOSITION: Home RELEVANT CHANGES SINCE PREADMISSION SCREENING: I have compared the patients medical and functional status at the time of the preadmission screening and there are: no changes PROGNOSIS: Good REHABILITATION GOALS: 1. PT OT will focus on regaining function in left side arm and leg and help ambulate and increase stamina All the above goals were reviewed with the patient and he/she is in agreement. By signing this document, I acknowledge that I have personally performed a full physical examination on this patient within 24 hours of admission to this inpatient rehabilitation facility and have determined the patient to be able to tolerate the above course of treatment at an intensive level for a reasonable period of time. I will be completing a detailed individualized Plan of Care for this patient by day #4 of the patients stay based upon the Preadmission Screen, the Post-Admission Evaluation, and the therapy evaluations. 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 ICD Codes: Z92.82 - Status post administration of tPA (rtPA) in a different facility within the last 24 hours prior to admission to current facility (7) Hypertension Status: Chronic ICD Codes: I10 - Essential (primary) hypertension (8) Neuropathy Status: Chronic ICD Codes: G62.9 - Polyneuropathy, unspecified (9) Anxiety Status: Chronic ICD Codes: F41.9 - Anxiety disorder, unspecified (10) COPD (chronic obstructive pulmonary disease) ICD Codes: J44.9 - Chronic obstructive pulmonary disease, unspecified (11) Smoker Status: Chronic ICD Codes: F17.200 - Nicotine dependence, unspecified, uncomplicated Assessment/Plan Assessment and Plan Assess & Plan/Chief Complaint Assessment: Catastrophic CVA with left sided weakness Smoker COPD HTN Gout Neuropathy CRI Alcoholism Depression Anxiety Plan: IRF protocol Pain meds Baclofen Home meds Ativan for etoh withdrawal symptoms HARDY CAMPBELL DO Sep 11, 2020 10:32
--- NOTE | 2020-09-11 10:32 | Occupational Therapy Eval ---
OT Evaluation-General/PLF Medical Diagnosis Admission Date Sep 11, 2020 at 09:41 Medical Diagnosis: CVA Onset Date: Sep 09, 2020 Therapy Diagnosis Therapy Diagnosis: decreased ADL status Height/Weight Height (Feet): 6 Height (Inches): 2.00 Weight (Pounds): 220 Weight (Ounces): 8.8 Precautions Precautions/Isolations: Standard Precautions Referral Physician: Mauricio Referral Reason: Evaluation/Treatment Medical History Pertinent Medical History: Alcoholism, HTN, Neuropathy Additional Medical History severe alcoholism/smoking, COPD, emphysema, pneumonia, HTN, neuropathy, renal failure, irritable bowel, gout Current History Pt to ED with c/o L side weakness which was resolved by the time pt arrived at ED. Later pt suffered another L side flaccidity, tPa given. Reviewed History: Yes Social History Home: Single Level Current Living Status: Spouse Entry Into Home: Stairs Without Railing Steps Into Home: 3 ADL-Prior Level of Function SCALE: Activities may be completed with or without assistive devices. 0-Hhniamyhzl-yfzsbih completes the activity by him/herself with no assistance from a helper. 5-Set-up or Clean-up Assistance-helper sets up or cleans up; patient completes activity. [place] assists only prior to or following the activity. 4-Supervision or Touching Assistance-helper provides verbal cues and/or touching/steadying and/or contact guard assistance as patient completes activity. Assistance may be provided throughout the activity or intermittently. 3-Partial/Moderate Assistance-helper does LESS THAN HALF the effort. [place] lifts, holds or supports trunk or limbs, but provides less than half the effort. 2-Substantial/Maximal Assistance-helper does MORE THAN HALF the effort. [place] lifts or holds trunk or limbs and provides more than half the effort. 4-Tgooasofs-xpvuge does ALL the effort. Patient does none of the effort to complete the activity. Or, the assistance of 2 or more helpers is required for the patient to complete the activity. If activity was not attempted, code reason: 7-Patient Refused. 9-Not Applicable-not attempted and the patient did not perform the activity before the current illness, exacerbation or injury. 10-Not Attempted due to Environmental Limitations-(lack of equipment, weather restraints, etc.). 88-Not Attempted due to Medical Conditions or Safety Concerns. ADL PLOF Comments Pt was independent with ADLs and functional mobility at PLOF, no AD/AE. 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 Pt does not verbalize any pain during tx. Mental Status/Objective Patient Orientation: Person, Place, Time, Situation Attachments: [place] Catheter Current Glasses/Contacts: Yes Hearing Aids: No Dentures/Partials: No Hand Dominance: Right Upper Extremity ROM RUE WFL LUE no active movement, full PROM Upper Extremity Coordination decreased LUE due to decreased movement, WFL RUE Upper Extremity Sensation intact BUE light touch, sharp/dull ADL-Treatment Eating (QC): 5 (set up assistance, pt reports being able to use utensils, bring food to mouth, and eat.) Oral Hygiene (QC): 5 (set up at tray table, pt required assistance opening toothpaste and squeezing, pt then able to brush teeth) Shower/Bathe Self (QC): 1 (Assist x2 required to wash buttocks. Pt able to wash chest/abdomen, periarea, and thighs, required assistance with other parts.) Upper Body Dressing (QC): 3 (Mod A, pt able to thread head and RUE into shirt, required assistance with L and managing down.) Lower Body Dressing (QC): 1 (Pt required assistance threading BLEs into brief, assist x2 in stand to manage brief up) On/Off Footwear (QC): 2 (Max A, pt able to push R sock down off of heel, assist to remove R sock rest of the way. Assist to don R sock, and to doff/don L sock.) Toileting Hygiene (QC): 1 (Based on clinical judgement, pt would require 2 person assistance to manage clothing and perform hygiene.) Other Treatments Pt laying in bed, agreeable to OT evaluation and tx. Pt transferred supine to sit EOB, assist with upper body and LLE. Pt required min A to maintain sitting balance at EOB. Pt transferred from EOB to w/c, SPT max A. OT educated pt on re hab expectations, and benefits/purpose of OT. He verbalized understanding. Pt then transferred from w/c to recliner, SPT with mod A and cues for sequencing of transfer. Pt completed sponge bath at recliner, requiring assistance washing BLE lower legs/feet and BUEs. Pt able to wash thighs, periarea, and chest/abdomen. Pt then donned clothing, requiring 2 person assist with receiving and processing supervisor order to wash buttocks and pull up briefs. Pt used shower cap to wash hair at recliner. Post OT tx, pt seated in recliner, call light in reach and all needs met. Education OT Patient Education: Correct positioning, Energy conservation, Modified ADL techniques, Progress toward Goal/Update tx plan, Purpose of tx/functional activities, Rehab process Teaching Recipient: Patient Teaching Methods: Discussion Response to Teaching: Verbalize Understanding OT Penitentiary Goals Knowledge Analyst Goals Time Frame: Oct 03, 2020 Eating (QC): 6 Oral Hygiene (QC): 6 Toileting Hygiene (QC): 4 Shower/Bathe Self (QC): 4 Upper Body Dressing (QC): 6 Lower Body Dressing (QC): 4 On/Off Footwear (QC): 4 Additional Goals: 1-Demonstrate ADL Tasks, 2-Verbalize Understanding, 3- ImproveStrength/Francesca 1=Demonstrate adherence to instructed precautions during ADL tasks. 2=Patient will verbalize/demonstrate understanding of assistive devices/modifications for ADL. 3=Patient will improve strength/tolerance for activity to enable patient to perform ADL's. OT Education/Plan Problem List/Assessment Assessment: Decreased Activ Tolerance, Decreased UE Strength, Impaired Bed Mobility, Impaired Funct Balance, Impaired I ADL's, Impaired Self-Care Skills, Restricted Funct UE ROM Discharge Recommendations Plan/Recommendations: Continue POC Treatment Plan/Plan of Care Patient would benefit from OT for education, treatment and training to promote independence in ADL's, mobility, safety and/or upper extremity function for ADL' s. Plan of Care: ADL Retraining, Functional Mobility, Group Exercise/Act as Ind, UE Funct Exercise/Act, UE Neuromus Re-Ed/Coord Treatment Duration: Oct 03, 2020 Frequency: At least 5 of 7 days/Wk (IRF) Estimated Hrs Per Day: 1.5 hours per day Agreement: Yes Rehab Potential: Fair Time/GCodes Start Time: 09:25 Stop Time: 10:40 Total Time Billed (hr/min): 75 Billed Treatment Time 1, EVM (10'), ADL 4 (65') WILFREDO CORLEY OT Sep 11, 2020 10:32
--- NOTE | 2020-09-11 12:24 | Physical Therapy Evaluation ---
PT Evaluation-General Medical Diagnosis Admission Date Sep 11, 2020 at 09:41 Medical Diagnosis: CVA Onset Date: Sep 09, 2020 Therapy Diagnosis Therapy Diagnosis: Impaired strength, ROM, and mobility Height/Weight Height (Feet): 6 Height (Inches): 2.00 Weight (Pounds): 220 Weight (Ounces): 8.8 Precautions Precautions/Isolations: Fall Prevention, Standard Precautions Referral Physician: Mauricio Reason for Referral: Evaluation/Treatment Medical History Pertinent Medical History: Alcoholism, HTN, Neuropathy Additional Medical History Past Medical History Respiratory: COPD, Emphysema, Pneumonia Cardiac: Hypertension Neurological: Neuropathy Sexually Transmitted Disease: No HIV/AIDS: No Genitourinary: Renal Failure Gastrointestinal: Chronic Diarrhea, Irritable Bowel Musculoskeletal: Gout Hearing Impairment: Hard of Hearing Psychosocial: Anxiety, Depression Reviewed History: Yes Reviewed History: Yes Social History Home: Single Level Current Living Status: Spouse Entry Into Home: Stairs Without Railing PT Steps Into Home: 3 Prior Prior Level of Function SCALE: Activities may be completed with or without assistive devices. 9-Rrpahtaijb-ezgyvuo completes the activity by him/herself with no assistance from a helper. 5-Set-up or Clean-up Assistance-helper sets up or cleans up; patient completes activity. [place] assists only prior to or following the activity. 4-Supervision or Touching Assistance-helper provides verbal cues and/or touching/steadying and/or contact guard assistance as patient completes activity . Assistance may be provided throughout the activity or intermittently. 3-Partial/Moderate Assistance-helper does LESS THAN HALF the effort. [place] lifts, holds or supports trunk or limbs, but provides less than half the effort. 2-Substantial/Maximal Assistance-helper does MORE THAN HALF the effort. [place] lifts or holds trunk or limbs and provides more than half the effort. 0-Rstaglfgt-cqhwcr does ALL the effort. Patient does none of the effort to complete the activity. Or, the assistance of 2 or more helpers is required for the patient to complete the activity. If activity was not attempted, code reason: 7-Patient Refused. 9-Not Applicable-not attempted and the patient did not perform the activity before the current illness, exacerbation or injury. 10-Not Attempted due to Environmental Limitations-(lack of equipment, weather restraints, etc.). 88-Not Attempted due to Medical Conditions or Safety Concerns. Bed Mobility: 6 Transfers (B,C,W/C): 6 Gait: 6 Stairs: 6 Wheelchair Mobility: 6 Indoor Mobility (Ambulation): Independent Stairs: Independent Prior Devices Use: None PT Evaluation-Current Subjective Pt presents in recliner. Pt agrees to PT. Pt reports no pain. Pt/Family Goals Return home Objective Patient Orientation: Person, Place, Time, Eyes Open, Situation Attachments: [place] Catheter ROM/Strength ROM Lower Extremities WFL Strength Lower Extremities R hip flex: 4+/5 L hip flex: <3/5 R knee ext: 5/5 L knee ext: 3/5 R knee flex: 4+/5 L knee flex: 3/5 Sensory Vision: Functional (proper tracking and peripheal vision) Hand Dominance: Right Sensation Right Lower Extremit: Impaired Sensation Left Lower Extremity: Impaired Sensation Lower Extremities RLE light touch sensation intact L2-L4; impaired at L5; intact at S1 and S2 LLE light touch sensation intact L2; impaired L3-S1; intact at S2 Transfers Roll Left & Right (QC): 10 Sit to Lying (QC): 10 Lying to Sitting/Side of Bed(Q: 10 Sit to Stand (QC): 3 Chair/Ifw-fb-Glbll Xfer(QC): 2 Toilet Transfer (QC): 2 Car Transfer (QC): 2 Patient required mod assist with sit to stand. Pt requires max assist with stand-pivot transfers; pt is able to bear weight and pivot on R foot; pt required extra assistance with car transfer to swing legs into car. Will be able to test bed mobility and supine <-> sit later today. Gait Does the Patient Walk?: No and Walking Goal IS indicated Walk 10 feet (QC): 88 Walk 50 ft with 2 Turns(QC): 88 Walk 150 ft (QC): 88 Walking 10ft/uneven surface-QC: 88 Wheelchair Training Does the Pt Use a Wheelchair?: Yes Distance: 150' Wheel 50 ft with 2 turns (QC): 3 Wheel 150 ft (QC): 3 Type of Wheelchair: Manual Pt able to propel and steer chair with RLE and RUE; pt still requires min assist with chair maneuvering Stairs 1 Step (curb) (QC): 88 4 Steps (QC): 88 12 Steps (QC): 88 Balance Sitting Static: Good Sitting Dynamic: Fair Standing Static: Poor Standing Dynamic: Poor Picking up an Object (QC): 88 Treatment Standing balance 1minx5 Seated ankle pumps and LAQ x10; AROM on R, PROM on L Assessment/Needs Pt struggles with stand-pivot transfers; pt has weightbearing abilities on RLE but is fearful to progress RUE to armrest; when transferring to weak side (L) pt has tight safety sealer on wheelchair with R hand as pivoting away cause wheelchair to lift off floor and lose stability. 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 Rehab Potential: Fair PT Short Term Goals Short Term Goals Time Frame: Sep 18, 2020 Roll Left & Right: 6 Sit to lyin Lying to sitting on side of be: 3 Sit to stand: 3 Chair/qgs-ve-ooyqd transfer: 3 Toilet transfer: 3 Walk 10 feet: 3 Wheel 50ft w/2 turns: 4 Wheel 150 feet: 4 PT Pca Goals Pca Goals PT Pca Goals Time Frame: Oct 02, 2020 Roll Left & Right (QC): 6 Sit to Lying (QC): 6 Lying-Sitting on Side/Bed(QC): 6 Sit to Stand (QC): 4 Chair/Svb-pj-Mzrqy Xfer(QC): 4 Toilet Transfer (QC): 4 Car Transfer (QC): 4 Does the Patient Walk: No and Walking Goal IS indicated Walk 10 feet (QC): 4 Walk 50ft with 2 Turns (QC): 4 Walk 150 ft (QC): 4 Walking 10ft on Uneven Surface: 4 1 Step (curb) (QC): 3 4 Steps (QC): 3 12 Steps (QC): 88 Picking up an Object (QC): 4 Wheel 50 feet with 2 turns (QC: 6 Wheel 150 feet: 6 PT Plan Problem List Problem List: Activity Tolerance, Functional Strength, Safety, Balance, Gait, Transfer, Bed Mobility, ROM Treatment/Plan Treatment Plan: Continue Plan of Care Treatment Plan: Bed Mobility, Education, Functional Activity Francesca, Functional Strength, Group Therapy, Gait, Safety, Therapeutic Exercise, Transfers Treatment Duration: Sep 25, 2020 Frequency: At least 5 of 7 days/Wk (IRF) Estimated Hrs Per Day: 1.5 hours per day Patient and/or Family Agrees t: Yes Safety Risks/Education Patient Education: Transfer Techniques, Correct Positioning, W/C Management, Safety Issues Teaching Recipient: Patient Teaching Methods: Demonstration, Discussion Response to Teaching: Reinforcement Needed Discharge Recommendations Plan Pt will work on bed mobility, transfer training, balance, gait training, and th erapeutic exercise to improve strength and ROM. Time/GCodes Time In: 1100 Time Out: 1200 Total Billed Treatment Time: 60 Total Billed Treatment 1 visit EVM 10' FA 50' KRISTINE HAWK PT Sep 11, 2020 12:24
--- NOTE | 2020-09-11 12:39 | Progress Note ---
ANAHY FISHER MED STUDENT 09/11/20 1239: Progress Note Patient is a 59 y.o. male who presented to the ED on 09/09 for weakness of the left arm and leg and left facial droop. He has a history of severe alcohol and tobacco use. He experienced resolution of symptoms while in the ED. CT of the head was unremarkable initially. His symptoms then returned while in the ED on the way to the MRI. NIH stroke scale of 10 [facility] ED[facility] a [facility] and tPA was administered on their recommendation. Patient tolerated well and was admitted for further observation. 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 He regained some ability to wiggle his left foot and toes, but has yet to regain movement in the arm or the rest of the leg. Morning of discharge from the floor he was feeling optimistic and ready for therapy. He is motivated to improve in IRF. ROMANA CAMPBELL DO 09/11/204: Supervisory-Addendum Brief Verification & Attestation Participated in pt care: history, MDM, physical Personally performed: exam, history, MDM, supervision of care Care discussed with: Medical Student Procedures: n/a Results interpretation: Verified all documentation Verification and Attestation of Medical Student E/M Service A medical student performed and documented this service in my presence. I reviewed and verified all information documented by the medical student and made modifications to such information, when appropriate. I personally performed the physical exam and medical decision making. Romana Campbell, Sep 11, 2020,21:14 ANAHY FISHER MED STUDENT Sep 11, 2020 12:39 ROMANA CAMPBELL DO Sep 11, 2020 21:14
--- NOTE | 2020-09-11 13:47 | NUR ---
"RD ASSESSMENT PMHx: severe ETOHism; COPD; emphysema; pneumonia; HTN; renal failure; chronic diarrhea; gout; PT INTERACTION: Pt was awake and pleasant during nutrition assessment. Pt states current appetite is fine, and has been for some time. Note PO intake 100% x1meal, per chart review. Pt states following a regular diet at home, and has no issues with chewing/swallowing food. Pt states recent issues with nausea, vomiting, and diarrhea. Note last BM was 09/10, and pt currently on bowel regimen of colace BID, senna BID, and miralax BID, per chart review. Pt states no recent wt changes. Note unable to determine recent wt hx, per chart review. ABNORMAL NUTRITION-RELATED LAB VALUES LOW: Ca 8.3; HIGH: Cl 108 Est. kcal needs: 1422-1110 kcal | 20-25 kcal/kg Est. Pro needs: 80-100 g Pro | 0.8 g Pro/kg PES STATEMENT: Inadequate oral intake (NI-2.1) related to loss of appetite, nausea, vomiting, and diarrhea, evidenced by pt interview and chart review. INTERVENTION: Continue with current diet order of Clear Liquid diet. Would recommend diet advancement when medically able and as tolerated. Encouraged pt to eat when able. Will continue to follow and reassess as pt needs, intake, and status change. Anais Larsen, MS RD LD"
--- NOTE | 2020-09-11 13:57 | Physical Therapy Daily Note ---
PT Daily Note-Current Subjective Pt presents sitting in recliner. Pt agrees to PT. Pt reports no pain. Appearance At conclusion of PT treatment patients is supine in bed with access to tray, call button, and all needs have been met. Mental Status Patient Orientation: Person, Place, Time, Eyes Open, Situation Attachments: [place] Catheter Transfers SCALE: Activities may be completed with or without assistive devices. 0-Coybvmmlhl-ytuyapp completes the activity by him/herself with no assistance from a helper. 5-Set-up or Clean-up Assistance-helper sets up or cleans up; patient completes activity. [place] assists only prior to or following the activity. 4-Supervision or Touching Assistance-helper provides verbal cues and/or touching/steadying and/or contact guard assistance as patient completes activity. Assistance may be provided throughout the activity or intermittently. 3-Partial/Moderate Assistance-helper does LESS THAN HALF the effort. [place] lifts, holds or supports trunk or limbs, but provides less than half the effort. 2-Substantial/Maximal Assistance-helper does MORE THAN HALF the effort. [place] lifts or holds trunk or limbs and provides more than half the effort. 9-Brsklsmix-dvvgru does ALL the effort. Patient does none of the effort to complete the activity. Or, the assistance of 2 or more helpers is required for the patient to complete the activity. If activity was not attempted, code reason: 7-Patient Refused. 9-Not Applicable-not attempted and the patient did not perform the activity before the current illness, exacerbation or injury. 10-Not Attempted due to Environmental Limitations-(lack of equipment, weather restraints, etc.). 88-Not Attempted due to Medical Conditions or Safety Concerns. Roll Left & Right (QC): 3 Sit to Lying (QC): 3 Lying to Sitting/Side of Bed(Q: 3 Sit to Stand (QC): 3 Pt required min assist chair to bed transfer. Pt required min assist with lying<->EOB to lift and maneuver LLE. Treatments Bed mobility Assessment Current Status: Good Progress, Fair Progress Patient leans to the left during transfers PT Short Term Goals Short Term Goals Time Frame: Sep 18, 2020 Roll Left & Right: 6 Chair/njw-eb-yrxob transfer: 3 Toilet transfer: 3 Car transfer: 3 Walk 10 feet: 3 Walk 50 feet with two turns: 3 Walk 150 feet: 3 Walking 10ft on uneven surface: 3 Wheel 50ft w/2 turns: 4 Wheel 150 feet: 4 PT Custodial Goals Custodial Goals PT Custodial Goals Time Frame: Sep 25, 2020 Roll Left & Right (QC): 6 Sit to Lying (QC): 6 Lying-Sitting on Side/Bed(QC): 6 Sit to Stand (QC): 4 Chair/Fmi-vv-Tujbz Xfer(QC): 4 Toilet Transfer (QC): 4 Car Transfer (QC): 4 Does the Patient Walk: No and Walking Goal IS indicated Walk 10 feet (QC): 4 Walk 50ft with 2 Turns (QC): 4 Walk 150 ft (QC): 4 Walking 10ft on Uneven Surface: 4 1 Step (curb) (QC): 3 4 Steps (QC): 3 12 Steps (QC): 88 Picking up an Object (QC): 4 Wheel 50 feet with 2 turns (QC: 6 Wheel 150 feet: 6 PT Plan Problem List Problem List: Activity Tolerance, Functional Strength, Safety, Balance, Gait, Transfer, Bed Mobility, ROM Treatment/Plan Treatment Plan: Continue Plan of Care Treatment Plan: Bed Mobility, Education, Functional Activity Francesca, Functional Strength, Group Therapy, Gait, Safety, Therapeutic Exercise, Transfers Treatment Duration: Sep 25, 2020 Frequency: At least 5 of 7 days/Wk (IRF) Estimated Hrs Per Day: 1.5 hours per day Patient and/or Family Agrees t: Yes Safety Risks/Education Patient Education: Transfer Techniques, Correct Positioning, Safety Issues Teaching Recipient: Patient Teaching Methods: Demonstration, Discussion Response to Teaching: Reinforcement Needed Time/GCodes Time In: 1340 Time Out: 1355 Total Billed Treatment Time: 15 Total Billed Treatment 1 visit FA KRISTINE FAY PT Sep 11, 2020 13:57
--- NOTE | 2020-09-11 15:00 | NUR ---
Spoke with Dr. Christie, Wound Care Physician about patient's ulceration of right great toe. Dr. Christie explains that patient had recently been released from wound care. Patient can wear protective walking shoe or regular tennis shoe during therapy, up to discretion of therapy for best balancing. Nursing to monitor toe for any signs of breakdown and inform Dr. Christie of any signs of breakdown.
--- NOTE | 2020-09-11 15:12 | ST Cognitive Linguistic Eval ---
Speech Evaluation-General Medical Diagnosis CVA Onset Date: Sep 09, 2020 Therapy Diagnosis Therapy Diagnosis: Dysarthria, Cognitive-communication Referral Referring Physician: Dr. Martínez Medical History Pertinent Medical History: Alcoholism, HTN, Neuropathy Reviewed History: Yes Social History Current Living Status: Spouse Speech PLF-Current Status Prior Level of Function Patient lives at home with his . 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 Subjective Patent was pleasant and cooperative with the cognitive assessment. Language Eval: Auditory Comprehends Simple Yes/No Ques: Functional Indent/Objects Multiple Garcia: Functional Ident/Pics in Multiple Garcia: Functional Follows 1-Step Commands: Functional Follows Complex Directions: Mild Follows General Conversations: Functional Language Eval: Verbal Language Completes Spontaneous Greeting: Functional Produces Auto, Serial Info: Functional Imitates Simple Words/Phrases: Functional Word Finding: Mild Requests Basic Needs: Functional States Basic Personal Info: Functional Expresses Complex Ideas: Mild Objective Cognitive Domain Attention: WNL Memory: WNL Problem Solving: Mild Executive Functions: Mild Visuospatial Skills: Mild Composite Severity Rating: Mild Objective Formal/Standardized Tests [facility] Mental Status (UMS) Results 25/30, Mild Neurocognitive Disorder range of function. Oral Motor/Speech Production Patient has mild eft side facial drooping, however his speech is 90% intelli gible. Patient is able to communicate effectively. Impression Patient is a pleasant 59 y/o male who was admitted to the ARU s/p CVA. The patient was given the SLUMS with a score of 25/30 which is within the MNCD range of function. The patient also completed informal speech tasks for determining his intelligibility. The patient will receive skilled ST as indicated by the SLUMS score. Speech Patient Assess Expression of Ideas/Wants: Exhibits (3) Understanding Verbal Content: Usually Understands (3) Brief Interview-Mental Status: Yes Repetition of Three Words: Three (3) Temporal Orientation: Year: Correct (3) Temporal Orientation: Month: Accurate within 5 days(2) Temporal Orientation: Day: Correct (1) Recall : Wear to say "Sock": Yes,after cueing (1) Recall : Color: Yes, after cueing (1) Recall : Bed: Yes, no cue required (2) Memory/Recall Ability: Current season, That he or she is in a hsp/hsp unit Speech Short Term Goals Short Term Goals Short Term Goals 1) The patient will complete memory tasks related to her daily needs at 80% or greater with minimal cues. 2) The patient will complete safety awareness tasks related to her daily needs at 80% or greater with minimal cues. 3) The patient will complete problem solving tasks related to her daily needs at 80% or greater with minimal cues. 4) The patient will complete OME for improving speech intelligibility. Speech Half-Way Goals Comedian Goals Patient will improve cognitive and speech abilities in order to effectively meet his daily needs with minimal assist. Speech-Plan Patient/Family Goals Patient/Family Goals: The patient plans on returning to his home where he lives with his upon discharge. Treatment Plan Speech Therapy Treatment Plan: Continue Plan of Care Treatment Duration: Sep 25, 2020 Frequency: 4 times per week (Patient will receive skilled ST 4-5x per week) Estimated Hrs Per Day: .5 hour per day Rehab Potential: Fair Barriers to Learning: Patient's new onset CVA, other health concerns Pt/Family Agrees to Plan: Yes Safety Risks/Education Teaching Recipient: Patient Teaching Methods: Discussion Response to Teaching: Verbalize Understanding Education Topics Provided: Safety within his room and communication of wants/needs Time Speech Therapy Time In: 13:00 Speech Therapy Time Out: 13:30 Total Billed Time: 30 Billed Treatment Time 1, ANIA ZAVALA BETHANIA ST Sep 11, 2020 15:12
[2020-09-11 17:06] VITALS: BP 140/71
[2020-09-11] MEDS: MAGNESIUM OXIDE (MAG-OX)400 MG TAB PO SCH (17:53)
[2020-09-11] MEDS: CALCIUM CARBONATE 500 MG (TUMS) TAB.CHEW PO PRN ×2 (18:03→20:02)
[2020-09-11] MEDS ORDERED: BACLOFEN 10 MG (LIORESAL) TAB PO PRN (18:45)
[2020-09-11] MEDS: LORazepam 0.5 MG (ATIVAN) TABLET PO SCH (20:02)
[2020-09-11] MEDS: DOCUSATE SODIUM 10 MG/ML 10 ML UDC (COLACE) NG SCH (20:07)
[2020-09-11] MEDS ORDERED: DOCUSATE SODIUM 100 MG (COLACE) CAP PO SCH (21:00)
[2020-09-12 05:54] LABS: BASOPHILS % (AUTO) 0 % (0-10); EOSINOPHILS # (AUTO) 0.3 10^3/uL (0.0-0.3); EOSINOPHILS % (AUTO) 3 % (0-10); HEMATOCRIT 46 % (40-54); HEMOGLOBIN 16.2 g/dL (13.3-17.7); LYMPHOCYTES # (AUTO) 1.5 10^3/uL (1.0-4.0); LYMPHOCYTES % (AUTO) 18 % (12-44); MEAN CORPUSCULAR HEMOGLOBIN 39 pg (25-34); MEAN CORPUSCULAR HGB CONC 36 g/dL (32-36); MEAN CORPUSCULAR VOLUME 111 fL (80-99); MEAN PLATELET VOLUME 10.6 fL (9.0-12.2); MONOCYTES # (AUTO) 0.7 10^3/uL (0.0-1.0); MONOCYTES % (AUTO) 9 % (0-12); NEUTROPHILS # (AUTO) 5.7 10^3/uL (1.8-7.8); NEUTROPHILS % (AUTO) 69 % (42-75); PLATELET COUNT 171 10^3/uL (130-400); WHITE BLOOD COUNT 8.3 10^3/uL (4.3-11.0)
[2020-09-12] MEDS: THIAMINE 100 MG (VITAMIN B-1) TAB PO SCH (05:59)
[2020-09-12] MEDS: MULTIVIT W/MINERALS TAB (THERAGRAN M) PO SCH (05:59)
[2020-09-12] MEDS: KCL 10 MEQ TAB (MICRO K) PO SCH (05:59)
[2020-09-12 06:01] VITALS: BP 127/61
[2020-09-12 06:06] LABS: ALBUMIN 3.5 GM/DL (3.2-4.5); CHLORIDE 104 MMOL/L (98-107)
[2020-09-12 06:07] LABS: POTASSIUM 3.1 MMOL/L (3.6-5.0); SODIUM 137 MMOL/L (135-145)
[2020-09-12 06:08] LABS: CALCIUM 8.3 MG/DL (8.5-10.1)
[2020-09-12 06:09] LABS: GLUCOSE 95 MG/DL (70-105)
[2020-09-12 06:10] LABS: CARBON DIOXIDE 22 MMOL/L (21-32)
[2020-09-12 06:11] LABS: BILIRUBIN,TOTAL 1.5 MG/DL (0.1-1.0)
[2020-09-12 06:12] LABS: ALKALINE PHOSPHATASE 113 U/L (40-136)
[2020-09-12 06:13] LABS: CREATININE SERUM 0.61 MG/DL (0.60-1.30); GFR ESTIMATED > 60
[2020-09-12 06:14] LABS: BUN/CREATININE RATIO 16
[2020-09-12 06:15] LABS: ALANINE AMINOTRANSFERASE 22 U/L (0-55)
--- NOTE | 2020-09-12 07:21 | Individualized Plan of Care ---
Individualized Plan of Care Rehab Nursing IPOC Order Admission Date Sep 11, 2020 at 09:41 Current Orders Orders Vital Signs: Per Unit Policy ( 08,16,00 (09/11/20 05:09) Juan Luo ,21 (09/11/20 05:09) Sequential Compression Device Q4H (09/11/20 05:09) Certified Medicine Aide-Inpt Rehab Con (09/11/20 05:09) Rehab Nursing Orders-Ipoc (09/11/20 05:09) Physical Therapy Rehab Orders (09/11/20 05:09) Occupational Therapy Rehab Ord (09/11/20 05:09) Speech Therapy Rehab Orders (09/11/20 05:09) Cbc With Automated Diff (09/12/20 06:00) Comprehensive Metabolic Panel (09/12/20 06:00) General/Regular (09/11/20 Breakfast) Intake & Output 06,14,22 (09/11/20 05:09) Precautions (Aru) (09/11/20 05:09) Rehab-Intensity Of Therapy (09/11/20 05:09) Initiate Admission Nursing Pro .admission (09/11/20 05:09) Acetaminophen Tablet (Tylenol Tablet) (09/11/20 05:15) Alprazolam Tablet (Xanax Tablet) (09/11/20 05:15) Calcium Carbonate Chew Tablet (Antacid C (09/11/20 05:15) Diphenhydramine Tablet (Benadryl Tablet) (09/11/20 05:15) Docusate Sodium Capsule (Colace Capsule) (09/11/20 09:00) Docusate Sodium Capsule (Colace Capsule) (09/11/20 05:15) Bisacodyl Suppository (Dulcolax Supposit (09/11/20 05:15) Lactulose Oral Solution (Enulose Oral So (09/11/20 05:15) Na Phos/Na Biphos Enema (Fleet Enema Akhil (09/11/20 05:15) Guaifenesin/Codeine Syrup (Robitussin Ac (09/11/20 05:15) Loperamide Tablet (Imodium Tablet) (09/11/20 05:15) Melatonin Tablet (Melatonin Tablet) (09/11/20 05:15) Polyethylene Glycol Powder Pkt (Miralax (09/11/20 09:00) Ondansetron Oral Dissolve Tab (Zofran (09/11/20 05:15) Senna S Tablet (Senokot S Tablet) (09/11/20 09:00) Initiate Admission Nursing Pro .admission (09/11/20 05:09) Admission Order(Inpt,Obs,Sdc) (09/11/20 05:09) Admission Arrival Bed Request (09/11/20 09:39) Code/Resuscitation (09/11/20 10:29) Alcohol Tgmdwsrsaz-Dizp-Vp Demetrius Q1H (09/11/20 10:29) Incentive Spirometry (Nursing) Q2H (09/11/20 10:29) Telemetry (09/11/20 10:29) Clear Liquid (09/11/20 Lunch) Aspirin Enteric Coated Tablet (Ecotrin T (09/12/20 09:00) Atenolol Tablet (Tenormin Tablet) (09/12/20 09:00) Lorazepam Tablet (Ativan Tablet) (09/11/20 10:30) Atorvastatin Tablet (Lipitor Tablet) (09/12/20 09:00) Docusate Sodium Oral Solution (Colace Or (09/11/20 21:00) Folic Acid Tablet (Folic Acid Tablet) (09/12/20 09:00) Lorazepam Injection (Ativan Injection) (09/11/20 10:30) Lorazepam Tablet (Ativan Tablet) (09/11/20 10:30) Loperamide Tablet (Imodium Tablet) (09/11/20 10:30) Magnesium Oxide Tablet (Mag Ox Tablet) (09/11/20 18:00) Therapeutic Multivitamin Tab (Vitamins, (09/12/20 07:00) Ondansetron Injection (Zofran Injectio (09/11/20 10:30) Ondansetron Oral Dissolve Tab (Zofran (09/11/20 10:30) Potassium Chloride (Tablet) (Klor Con Ta (09/12/20 07:00) Sodium Chloride Flush (Catheter Flush Sy (09/11/20 10:30) Thiamine Tablet (Vitamin B-1 Tablet) (09/12/20 07:00) Amlodipine Tablet (Norvasc Tablet) (09/12/20 09:00) Incentive Spirometry Initial (09/11/20 10:29) Telemetry Nursing Assessment ( (09/11/20 10:29) Incentive Spirometry (Nursing) Q2H (09/11/20 10:29) Patient Visit (09/11/20 ) Pt Eval Moderate Complexity (09/11/20 ) Functional Activities, Ea 15 (09/11/20 ) Patient Visit (09/11/20 ) Functional Activities, Ea 15 (09/11/20 ) Patient Visit (09/11/20 ) Speech Sound Lang Comp (09/11/20 ) Treat. Speech/Lang/Voice (09/11/20 ) Diet Advance As Tolerated (09/11/20 17:49) Baclofen Tablet (Lioresal Tablet) (09/11/20 18:45) Lorazepam Tablet (Ativan Tablet) (09/11/20 21:00) Patient Visit (09/12/20 ) Treat. Speech/Lang/Voice (09/12/20 ) Dys3 Advanced (09/12/20 Lunch) Patient Visit (09/12/20 ) Gait Training, Ea 15 Min (09/12/20 ) Functional Activities, Ea 15 (09/12/20 ) Exercise Therap, Ea 15 Min (09/12/20 ) Rehab Nursing Orders: Ongoing Assess. of Cognitive Status, Ongoing Assess. of Function Status, Bladder Management, Bladder Scan, Bladder Training, Bowel Management, Bowel Training, Disease Management & Educaiton, DVT Prophylaxis, Fall Prevention, Fluid/Electrolyte/Nutrition Mgmt, Infection Prevention, Medication Management & Education, Management of Risks & Complications, Management of Skin Intergrity, Nutrition Management, Pain Management, Patient/Family Support, Safety Management Intensity of Therapy to be met Patient to be seen: Min.3h per day/5 of 7d PT IPOC Problem List: Activity Tolerance, Functional Strength, Safety, Balance, Gait, Transfer, Bed Mobility, ROM Treatment Plan: Continue Plan of Care Bed Mobility, Education, Functional Activity Francesca, Functional Strength, Group Therapy, Gait, Safety, Therapeutic Exercise, Transfers Treatment Duration: Sep 25, 2020 Frequency: At least 5 of 7 days/Wk (IRF) Estimated Hrs Per Day: 1.5 hours per day OT IPOC Problems: Decreased Activ Tolerance, Decreased UE Strength, Impaired Bed Mobility, Impaired Funct Balance, Impaired I ADL's, Impaired Self-Care Skills, Restricted Funct UE ROM OT Treatment, Training and Edu: Yes Plan of Care: ADL Retraining, Functional Mobility, Group Exercise/Act as Ind, UE Funct Exercise/Act, UE Neuromus Re-Ed/Coord Treatment Duration: Oct 03, 2020 Frequency: At least 5 of 7 days/Wk (IRF) Estimated Hrs Per Day: 1.[address] IPOC Speech Therapy Treatment Plan: Continue Plan of Care Treatment Duration: Sep 25, 2020 Frequency: 4 times per week (Patient will receive skilled ST 4-5x per week) Estimated Hrs Per Day: .5 hour per day Certified Medicine Aide/Case Mgmt Certified Medicine Aide/Case Managemen: Discharge Planning Dietitian/Electrical Project Engineer Dietitian/Electrical Project Engineer to monitor nutritional status and make changes and/or recommendations as needed and work with speech pathology on dietary upgrades as the occur. Physician IPOC Medical Issues being managed closely and that require the 24 hour availability of a physician: Recent catastrophic CVA s/p tPA will be at increased risk for additional deficits along with etoh withdrawal Brief Synthesis of Preadmission Screen, Post-Admission Evaluation, and Therapy Evaluations: Medical Prognosis: Good Anticipated Length of Stay: 7 days HARDY CAMPBELL DO Sep 12, 2020 07:21
--- NOTE | 2020-09-12 07:21 | PM&R Progress Note ---
Subjective HPI/CC On Admission Date Seen by Provider: Sep 12, 2020 Time Seen by Provider: 11:45 Subjective/Events-last exam Crushing his meds with pudding since he did choke on thin liquids Advancing diet as tolerated Bowels moved two days ago Pt appears to be very chronically ill Conferred with RN Reviewed therapy notes Checked meds and labs Review of Systems General: Fatigue, Malaise Neurological: Weakness, Incoordination Objective Exam Vital Signs Vital Signs Date Time Temp Pulse Resp B/P (MAP) Pulse Ox O2 Delivery O2 Flow Rate FiO2 09/13/20 05:15 37.0 73 18 130/64 (86) 91 Room Air Capillary Refill : Less Than 3 Seconds General Appearance: No Apparent Distress, WD/WN, Anxious, Chronically ill HEENT: PERRL/EOMI, Normal ENT Inspection, Pharynx Normal Neck: Full Range of Motion, Normal Inspection, Non Tender, Supple, Carotid Bruit Respiratory: Chest Non Tender, Lungs Clear, Normal Breath Sounds, No Accessory Muscle Use, No Respiratory Distress Cardiovascular: Regular Rate, Rhythm, No Edema, No Gallop, No JVD, No Murmur, Normal Peripheral Pulses Gastrointestinal: Normal Bowel Sounds, No Organomegaly, No Pulsatile Mass, Non Tender, Soft Back: Normal Inspection, No CVA Tenderness, No Vertebral Tenderness Extremity: Normal Capillary Refill, Normal Inspection, Normal Range of Motion (except left side weakness), Non Tender, No Calf Tenderness, No Pedal Edema Neurologic/Psychiatric: Alert, Oriented x3, Normal Mood/Affect, shoe folder II-XII Norm as Tested, Abnormal Gait, Depressed Affect, Facial Droop (left), Motor Weakness (left sided flaccidity) Skin: Normal Color, Warm/Dry Lymphatic: No Adenopathy Results/Procedures Lab Patient resulted labs reviewed. FIM Transfers Therapy Code Descriptions/Definitions Functional [place] Measure: 0=Not Assessed/NA 4=Minimal Assistance 1=Total Assistance 5=Supervision or Setup 2=Maximal Assistance 6=Modified [place] 3=Moderate Assistance 7=Complete IndependenceSCALE: Activities may be completed with or without assistive devices. 1-Oohzmuxseq-crbfpwa completes the activity by him/herself with no assistance from a helper. 5-Set-up or Clean-up Assistance-helper sets up or cleans up; patient completes activity. Randall assists only prior to or following the activity. 4-Supervision or Touching Assistance-helper provides verbal cues and/or touching/steadying and/or contact guard assistance as patient completes activity. Assistance may be provided throughout the activity or intermittently. 3-Partial/Moderate Assistance-helper does LESS THAN HALF the effort. Randall lifts, holds or supports trunk or limbs, but provides less than half the effort. 2-Substantial/Maximal Assistance-helper does MORE THAN HALF the effort. Randall lifts or holds trunk or limbs and provides more than half the effort. 3-Llpcajvgl-rmqfae does ALL the effort. Patient does none of the effort to complete the activity. Or, the assistance of 2 or more helpers is required for the patient to complete the activity. If activity was not attempted, code reason: 7-Patient Refused. 9-Not Applicable-not attempted and the patient did not perform the activity before the current illness, exacerbation or injury. 10-Not Attempted due to Environmental Limitations-(lack of equipment, weather restraints, etc.). 88-Not Attempted due to Medical Conditions or Safety Concerns. Roll Left to Right (QC): 3 Sit to Lying (QC): 10 Sit to Stand (QC): 3 Chair/Pjp-mr-Qobrx Xfer(QC): 2 Car Transfer (QC): 2 Gait Training Does the Patient Walk?: No and Walking Goal IS indicated Walk 10 feet (QC): 88 Walk 50 ft with 2 Turns(QC): 88 Walk 150 ft (QC): 88 Walking 10ft/uneven surface-QC: 88 Wheelchair Training Does the Pt Use a Wheelchair?: Yes Distance: 150' Wheel 50 ft with 2 turns (QC): 3 Wheel 150 ft (QC): 3 Type of Wheelchair: Manual Stair Training 1 Step (curb) (QC): 88 4 Steps (QC): 88 12 Steps (QC): 88 Balance Picking up an Object (QC): 88 ADL-Treatment Eating (QC): 5 (set up assistance, pt reports being able to use utensils, bring food to mouth, and eat.) Oral Hygiene (QC): 5 (set up at tray table, pt required assistance opening toothpaste and squeezing, pt then able to brush teeth) Shower/Bathe Self (QC): 1 (Assist x2 required to wash buttocks. Pt able to wash chest/abdomen, periarea, and thighs, required assistance with other parts.) Upper Body Dressing (QC): 3 (Mod A, pt able to thread head and RUE into shirt, required assistance with L and managing down.) Lower Body Dressing (QC): 1 (Pt required assistance threading BLEs into brief, assist x2 in stand to manage brief up) On/Off Footwear (QC): 2 (Max A, pt able to push R sock down off of heel, assist to remove R sock rest of the way. Assist to don R sock, and to doff/don L sock.) Toileting Hygiene (QC): 1 (Based on clinical judgement, pt would require 2 person assistance to manage clothing and perform hygiene.) Assessment/Plan Assessment and Plan Assess & Plan/Chief Complaint Assessment: Catastrophic CVA with left sided weakness Smoker COPD HTN Gout Neuropathy CRI Alcoholism Depression Anxiety Plan: IRF protocol Pain meds Baclofen Home meds Ativan for etoh withdrawal symptoms 09/12/20: Dysphagia screening Monitor for return of function left weakness (1) Acute CVA (cerebrovascular accident) Status: Acute (2) Left-sided weakness Status: Acute (3) Gout (4) Alcoholism Status: Chronic (5) Ulcer of great toe Status: Acute (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
--- NOTE | 2020-09-12 08:13 | NUR ---
Received dietary consult for MST score. Given information from nutrition assessment on 09/11, pt does not meet criteria for malnutrition per ASPEN guidelines at this time. Will continue to follow and reassess as pt needs, intake, and status change. Anais Larsen, MS RD LD
[2020-09-12 09:01] VITALS: BP 108/70
[2020-09-12] MEDS: MAGNESIUM OXIDE (MAG-OX)400 MG TAB PO SCH ×2 (09:11→18:00)
[2020-09-12] MEDS: FOLIC ACID 1 MG TAB PO SCH (09:11)
[2020-09-12] MEDS: ATENOLOL 25 MG (TENORMIN) TAB PO SCH (09:12)
[2020-09-12] MEDS: amLODIPine 5 MG (NORVASC) TAB PO SCH (09:12)
[2020-09-12] MEDS: ASPIRIN E.C. 325 MG (ECOTRIN) TABLET PO SCH (09:12)
[2020-09-12] MEDS: polyethylene glycoL POWDER 17 GM (MIRALAX) PACK PO SCH ×2 (09:25→20:17)
[2020-09-12] MEDS: SENNA W/DOCUSATE (SENOKOT S) TABLET PO SCH ×2 (09:25→20:17)
[2020-09-12] MEDS: DOCUSATE SODIUM 10 MG/ML 10 ML UDC (COLACE) NG SCH ×2 (09:25→20:17)
--- NOTE | 2020-09-12 11:11 | Physical Therapy Daily Note ---
PT Daily Note-Current Subjective Pt presents sitting recliner. Pt agrees to PT. Pt voices no complaints of pain. Appearance At conclusion of PT treatment pt is assisted into recliner where he remains with access to tray, call button, and all needs have been. Mental Status Patient Orientation: Person, Place, Time, Eyes Open, Situation Attachments: [place] Catheter Transfers SCALE: Activities may be completed with or without assistive devices. 8-Dnihkhlael-fjvzjfa completes the activity by him/herself with no assistance from a helper. 5-Set-up or Clean-up Assistance-helper sets up or cleans up; patient completes activity. [place] assists only prior to or following the activity. 4-Supervision or Touching Assistance-helper provides verbal cues and/or touching/steadying and/or contact guard assistance as patient completes activity. Assistance may be provided throughout the activity or intermittently. 3-Partial/Moderate Assistance-helper does LESS THAN HALF the effort. [place] lifts, holds or supports trunk or limbs, but provides less than half the effort. 2-Substantial/Maximal Assistance-helper does MORE THAN HALF the effort. [place] lifts or holds trunk or limbs and provides more than half the effort. 2-Chiubiwma-lqbzml does ALL the effort. Patient does none of the effort to complete the activity. Or, the assistance of 2 or more helpers is required for the patient to complete the activity. If activity was not attempted, code reason: 7-Patient Refused. 9-Not Applicable-not attempted and the patient did not perform the activity before the current illness, exacerbation or injury. 10-Not Attempted due to Environmental Limitations-(lack of equipment, weather restraints, etc.). 88-Not Attempted due to Medical Conditions or Safety Concerns. Sit to Stand (QC): 2 Chair/Fpv-yh-Ltrxd Xfer(QC): 2 Gait Training Does the Patient Walk?: Yes Distance: 6'x3 Gait Assistive Device: Parallel Bars Patient required max assist to ambulate inside of the parallel bars. Therapist stood at right side and assisted with weightshifting, L knee blocking, and LLE progression; OT controlled LUE; wheelchair was followed behind. Pt struggled with his own RLE progression and would trunk lean forward during this movement. Wheelchair Training Does the Pt Use a Wheelchair?: Yes Wheel 50 ft with 2 turns (QC): 3 Wheel 150 ft (QC): 3 Type of Wheelchair: Manual Pt jerks trunk forward repetitively to gain momentum while using UEs and LEs to propel chair; pt needs assistance with steering as he struggles with tight corners. Exercises Seated Therapy Exercises: Ankle pumps, Long arc quads, Hip flexion Seated Reps: 10 Standing: Weight shifts Standing Reps: 10 Transfer training to R x2 Treatments gait training, transfer training, and LE strengthening Assessment Current Status: Fair Progress Pt practices taking steps forward inside parallel bars; max assist. Pt is improving his transfers; pt learned to off-weight hips with momentum after learning the amount of assistance he was giving with sit-stands. PT Short Term Goals Short Term Goals Time Frame: Sep 18, 2020 Roll Left & Right: 6 Sit to lyin Lying to sitting on side of be: 3 Sit to stand: 3 Chair/egt-pg-qhwba transfer: 3 Toilet transfer: 3 Walk 10 feet: 3 Wheel 50ft w/2 turns: 4 Wheel 150 feet: 4 PT Longterm Goals Feeder Associate Goals PT Feeder Associate Goals Time Frame: Oct 02, 2020 Roll Left & Right (QC): 6 Sit to Lying (QC): 6 Lying-Sitting on Side/Bed(QC): 6 Sit to Stand (QC): 4 Chair/Iko-qs-Vrwex Xfer(QC): 4 Toilet Transfer (QC): 4 Car Transfer (QC): 4 Does the Patient Walk: No and Walking Goal IS indicated Walk 10 feet (QC): 4 Walk 50ft with 2 Turns (QC): 4 Walk 150 ft (QC): 4 Walking 10ft on Uneven Surface: 4 1 Step (curb) (QC): 3 4 Steps (QC): 3 12 Steps (QC): 88 Picking up an Object (QC): 4 Wheel 50 feet with 2 turns (QC: 6 Wheel 150 feet: 6 PT Plan Problem List Problem List: Activity Tolerance, Functional Strength, Safety, Balance, Gait, Transfer, Bed Mobility, ROM Treatment/Plan Treatment Plan: Continue Plan of Care Treatment Plan: Bed Mobility, Education, Functional Activity Francesca, Functional Strength, Group Therapy, Gait, Safety, Therapeutic Exercise, Transfers Treatment Duration: Sep 25, 2020 Frequency: At least 5 of 7 days/Wk (IRF) Estimated Hrs Per Day: 1.5 hours per day Patient and/or Family Agrees t: Yes Safety Risks/Education Patient Education: Gait Training, Transfer Techniques, Correct Positioning, W/C Management, Safety Issues Teaching Recipient: Patient Teaching Methods: Demonstration, Discussion Response to Teaching: Reinforcement Needed Time/GCodes Time In: 1000 Time Out: 1115 Total Billed Treatment Time: 75 Total Billed Treatment 1 visit GT 25' EX 15' FA 35' Co-treated with OT due to patient's limitations in strength, mobility, transfers, and coordination of UEs and LEs. PT focused on transfers, gait, and LEs while OT addressed UEs and ADLs. KRISTINE HAWK PT Sep 12, 2020 11:11
--- NOTE | 2020-09-12 11:23 | Occupational Ther Daily Note ---
OT Current Status-Daily Note Subjective Pt seated in recliner, agreeable to OT Tx. pt does not report any pain. Mental Status/Objective Attachments: Mesa Catheter ADL-Treatment Therapy Code Descriptions/Definitions Functional [place] Measure: 0=Not Assessed/NA 4=Minimal Assistance 1=Total Assistance 5=Supervision or Setup 2=Maximal Assistance 6=Modified [place] 3=Moderate Assistance 7=Complete IndependenceSCALE: Activities may be completed with or without assistive devices. 6-Daglezlrti-fetmeqs completes the activity by him/herself with no assistance from a helper. 5-Set-up or Clean-up Assistance-helper sets up or cleans up; patient completes activity. [place] assists only prior to or following the activity. 4-Supervision or Touching Assistance-helper provides verbal cues and/or touching/steadying and/or contact guard assistance as patient completes activity. Assistance may be provided throughout the activity or intermittently. 3-Partial/Moderate Assistance-helper does LESS THAN HALF the effort. [place] lifts, holds or supports trunk or limbs, but provides less than half the effort. 2-Substantial/Maximal Assistance-helper does MORE THAN HALF the effort. [place] lifts or holds trunk or limbs and provides more than half the effort. 7-Ylvhsrwyl-nuhzou does ALL the effort. Patient does none of the effort to complete the activity. Or, the assistance of 2 or more helpers is required for the patient to complete the activity. If activity was not attempted, code reason: 7-Patient Refused. 9-Not Applicable-not attempted and the patient did not perform the activity before the current illness, exacerbation or injury. 10-Not Attempted due to Environmental Limitations-(lack of equipment, weather restraints, etc.). 88-Not Attempted due to Medical Conditions or Safety Concerns. Oral Hygiene (QC): 5 (set up, pt able to brush teeth after toothpaste placed on toothbrush) Other Treatment OT/PT cotreat due to skill of 2 clinicians required which a veterans rehabilitation counselor could not perform in order to coordinate UE/LEs, and due to pt's limitations in LUE/LLEs. OT focused on ADLs, UE placement, cues for sequencing and safety, and assist with functional transfers/mobility while PT focused on LE placement, gross overall movements, and functional mobility/transfers. Pt completed SPT from recliner to w/c, L leg rest placed on w/c. Pt then self-propelled w/c to therapy gym using RUE/LE, with min A for guiding w/c. Pt stood at parallel bars, completing weight shifts between LUE/LE and RUE/LE. Pt then ambulated in parallel bars x3 trials, w/c follow. OT assisted pt with LUE placement and cues while PT assisted with advancing LLE. Pt took a seated rest break between each trial. Pt then completed x4 w/c pushups in order to increase RUE strength and endurance, as well as increase independence with transfers. Pt reports fatigue after 4 reps. OT/PT then educated pt on performing SPT towards R side, pt transferred from w/c to chair on R side with skilled cues for sequencing of task, then from chair to w/c on pt's R side. Pt self-propelled w/c back to room using RUE/LE and assist with guiding w/c. Pt transferred to recliner, SPT towards R side. OT performed PROM x10 reps each all planes for LUE. No active movement of LUE on this date. Pt brushed his teeth at recliner using RUE. Post OT/PT cotreat, pt seated in recliner, call light in reach and all needs met. Education OT Patient Education: Correct positioning, Energy conservation, Exercise program, Modified ADL techniques, Progress toward Goal/Update tx plan, Purpose of tx/functional activities, Rehab process, Safety issues, Transfer techniques Teaching Recipient: Patient Teaching Methods: Discussion Response to Teaching: Verbalize Understanding OT Production Hand Goals Custodial Goals Time Frame: Oct 03, 2020 Eating (QC): 6 Oral Hygiene (QC): 6 Toileting Hygiene (QC): 4 Shower/Bathe Self (QC): 4 Upper Body Dressing (QC): 6 Lower Body Dressing (QC): 4 On/Off Footwear (QC): 4 Additional Goals: 1-Demonstrate ADL Tasks, 2-Verbalize Understanding, 3-ImproveStrength/Francesca 1=Demonstrate adherence to instructed precautions during ADL tasks. 2=Patient will verbalize/demonstrate understanding of assistive devices/modifications for ADL. 3=Patient will improve strength/tolerance for activity to enable patient to perform ADL's. OT Education/Plan Problem List/Assessment Assessment: Decreased Activ Tolerance, Decreased UE Strength, Impaired Bed Mobility, Impaired Funct Balance, Impaired I ADL's, Impaired Self-Care Skills, Restricted Funct UE ROM Discharge Recommendations Plan/Recommendations: Continue POC Treatment Plan/Plan of Care Patient would benefit from OT for education, treatment and training to promote independence in ADL's, mobility, safety and/or upper extremity function for ADL's. Plan of Care: ADL Retraining, Functional Mobility, Group Exercise/Act as Ind, UE Funct Exercise/Act, UE Neuromus Re-Ed/Coord Treatment Duration: Oct 03, 2020 Frequency: At least 5 of 7 days/Wk (IRF) Estimated Hrs Per Day: 1.5 hours per day Agreement: Yes Rehab Potential: Fair Time/GCodes Start Time: 10:00 Stop Time: 11:15 Total Time Billed (hr/min): 75 Billed Treatment Time OT/PT chelsey x75' 1, FA 5 WILFREDO CORLEY OT Sep 12, 2020 11:23
--- NOTE | 2020-09-12 11:50 | Speech Therapy Daily Note ---
Speech Daily Progress Note Subjective Date Seen by Provider: Sep 12, 2020 Time Seen by Provider: 00:30 Patient was sitting up in his recliner, propped up with pillows. He stated "it is so weird, as though I lost half of me". Objective Patient completed a series of q/a related to his daily needs upon returning home with 95% with minimal cues. Patient completed 10 sets of OME with mildly improved speech production. Assessment Assessment Current Status: Fair Progress Treatment Plan Continue Plan of Care Speech Short Term Goals Short Term Goals Short Term Goals 1) The patient will complete memory tasks related to her daily needs at 80% or greater with minimal cues. 2) The patient will complete safety awareness tasks related to her daily needs at 80% or greater with minimal cues. 3) The patient will complete problem solving tasks related to her daily needs at 80% or greater with minimal cues. 4) The patient will complete OME for improving speech intelligibility. Speech Senior Care Goals Doctor Of Medicine Goals Patient will improve cognitive and speech abilities in order to effectively meet his daily needs with minimal assist. Speech-Plan Patient/Family Goals Patient/Family Goals: Patient plans on returning to his home where he lives with his . Treatment Plan Speech Therapy Treatment Plan: Continue Plan of Care Treatment Duration: Sep 25, 2020 Frequency: 4 times per week (Patient will receive skilled ST 4-5x per week) Estimated Hrs Per Day: .5 hour per day Rehab Potential: Fair Barriers to Learning: Patient's recent CVA, other health issues Pt/Family Agrees to Plan: Yes Safety Risks/Education Teaching Recipient: Patient Teaching Methods: Demonstration, Discussion Response to Teaching: Verbalize Understanding, Return Demonstration Education Topics Provided: Continued safety with oral intake, effectively communicating Time Speech Therapy Time In: 09:30 Speech Therapy Time Out: 10:00 Total Billed Time: 30 Billed Treatment Time 1, YUVAL Flores Sep 12, 2020 11:49
--- NOTE | 2020-09-12 14:00 | NUR ---
Visited with pt about smoking cessation. Enc. given. Offered [facility] classes and Antoine quit infor, Handout on smoking cessation given.
--- NOTE | 2020-09-12 14:36 | NUR ---
CM/SS ADMISSION Patient was admitted to ARU from [facility] 09/11/20 for catastrophic CVA with left sided weakness. Additional comorbidities are, in part, long standing wound care for ulcer of great R toe (just dc'd), gout, neuropathy, HTN, COPD, alcohol dependence, tobaccoism, depression, anxiety. Patient resides at home with his spouse Steffany Burrellzarina and intends to return there when able. 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 His employer is reportedly going to provide some paperwork regarding protection of his job, chart writer spoke with Steffany by phone and offered assistance regarding clinical information if that was needed. PCP: Dr. Romana Martínez DO [place] [facility]: [facility] INSURANCE: [employer] [facility] [facility] DME: Patient was completely independent and has no adaptive devices or equipment at home. FWW and wheelchair are anticipated, therapy team to make recommendations about other DME for patient home performance and safety. Patient describes 4 total steps from garage into house, they do not have a ramp at this time. Both patient and spouse indicate they believe their home would accommodate a wheelchair if it was necessary. BARRIERS TO DISCHARGE PLANNING: Patient has commercial insurance regarding post hospital services and equipment. His is working remotely from home so would be there with him throughout the day. They have no children as far as additional persons in their network, other family/friends could be considered. Patient's overall level of change from past to present functioning will be a high focus area of biopsychosocial support since his overall functional recovery is not yet known. CONTACTS: Steffany Vu, Spouse [address] [place] [address] Reginald Vu, Mother [address] [place] [address] Patient and spouse Steffany both indicated understanding of the purpose and process of the weekly patient care conference and that patient's first review would be Tuesday, September 17, 2020.
[2020-09-12 16:07] VITALS: BP 108/67
[2020-09-12] MEDS: LORazepam 0.5 MG (ATIVAN) TABLET PO SCH (20:42)
[2020-09-13 05:15] VITALS: BP 130/64
--- NOTE | 2020-09-13 06:24 | PM&R Progress Note ---
Subjective HPI/CC On Admission Date Seen by Provider: Sep 13, 2020 Time Seen by Provider: 10:15 Subjective/Events-last exam 09/13/20: Advancing diet Moved left leg a bit today No function in left arm though Shower today and shave Crushing his meds with pudding since he did choke on thin liquids Advancing diet as tolerated Bowels moved two days ago Pt appears to be very chronically ill Conferred with RN Reviewed therapy notes Checked meds and labs Review of Systems General: Fatigue, Malaise Neurological: Weakness, Incoordination Objective Exam Vital Signs Vital Signs Date Time Temp Pulse Resp B/P (MAP) Pulse Ox O2 Delivery O2 Flow Rate FiO2 09/13/20 16:58 36.7 74 18 137/71 (93) 97 Room Air Capillary Refill : Less Than 3 Seconds General Appearance: No Apparent Distress, WD/WN, Anxious, Chronically ill HEENT: PERRL/EOMI, Normal ENT Inspection, Pharynx Normal Neck: Full Range of Motion, Normal Inspection, Non Tender, Supple, Carotid Bruit Respiratory: Chest Non Tender, Lungs Clear, Normal Breath Sounds, No Accessory Muscle Use, No Respiratory Distress Cardiovascular: Regular Rate, Rhythm, No Edema, No Gallop, No JVD, No Murmur, Normal Peripheral Pulses Gastrointestinal: Normal Bowel Sounds, No Organomegaly, No Pulsatile Mass, Non Tender, Soft Back: Normal Inspection, No CVA Tenderness, No Vertebral Tenderness Extremity: Normal Capillary Refill, Normal Inspection, Normal Range of Motion (except left side weakness), Non Tender, No Calf Tenderness, No Pedal Edema Neurologic/Psychiatric: Alert, Oriented x3, Normal Mood/Affect, sales project administrator II-XII Norm as Tested, Abnormal Gait, Depressed Affect, Facial Droop (left), Motor Weakness (left sided flaccidity) Skin: Normal Color, Warm/Dry Lymphatic: No Adenopathy Results/Procedures Lab Patient resulted labs reviewed. FIM Transfers Therapy Code Descriptions/Definitions Functional [place] Measure: 0=Not Assessed/NA 4=Minimal Assistance 1=Total Assistance 5=Supervision or Setup 2=Maximal Assistance 6=Modified [place] 3=Moderate Assistance 7=Complete IndependenceSCALE: Activities may be completed with or without assistive devices. 5-Cilinjfdjy-lxbdedo completes the activity by him/herself with no assistance from a helper. 5-Set-up or Clean-up Assistance-helper sets up or cleans up; patient completes activity. [place] assists only prior to or following the activity. 4-Supervision or Touching Assistance-helper provides verbal cues and/or touching/steadying and/or contact guard assistance as patient completes activity. Assistance may be provided throughout the activity or intermittently. 3-Partial/Moderate Assistance-helper does LESS THAN HALF the effort. [place] lifts, holds or supports trunk or limbs, but provides less than half the effort. 2-Substantial/Maximal Assistance-helper does MORE THAN HALF the effort. [place] lifts or holds trunk or limbs and provides more than half the effort. 7-Khrfmbfan-ktfpgp does ALL the effort. Patient does none of the effort to complete the activity. Or, the assistance of 2 or more helpers is required for the patient to complete the activity. If activity was not attempted, code reason: 7-Patient Refused. 9-Not Applicable-not attempted and the patient did not perform the activity before the current illness, exacerbation or injury. 10-Not Attempted due to Environmental Limitations-(lack of equipment, weather restraints, etc.). 88-Not Attempted due to Medical Conditions or Safety Concerns. Roll Left to Right (QC): 3 Sit to Lying (QC): 10 Sit to Stand (QC): 2 Chair/Qgf-wv-Uyvzl Xfer(QC): 2 Car Transfer (QC): 2 Gait Training Does the Patient Walk?: Yes Distance: 6'x3 Walk 10 feet (QC): 88 Walk 50 ft with 2 Turns(QC): 88 Walk 150 ft (QC): 88 Walking 10ft/uneven surface-QC: 88 Gait Assistive Device: Parallel Bars Wheelchair Training Does the Pt Use a Wheelchair?: Yes Distance: 150' Wheel 50 ft with 2 turns (QC): 3 Wheel 150 ft (QC): 3 Type of Wheelchair: Manual Stair Training 1 Step (curb) (QC): 88 4 Steps (QC): 88 12 Steps (QC): 88 Balance Picking up an Object (QC): 88 ADL-Treatment Eating (QC): 5 (set up assistance, pt reports being able to use utensils, bring food to mouth, and eat.) Oral Hygiene (QC): 5 (set up, pt able to brush teeth after toothpaste placed on toothbrush) Shower/Bathe Self (QC): 1 (Assist x2 required to wash buttocks. Pt able to wash chest/abdomen, periarea, and thighs, required assistance with other parts.) Upper Body Dressing (QC): 3 (Mod A, pt able to thread head and RUE into shirt, required assistance with L and managing down.) Lower Body Dressing (QC): 1 (Pt required assistance threading BLEs into brief, assist x2 in stand to manage brief up) On/Off Footwear (QC): 2 (Max A, pt able to push R sock down off of heel, assist to remove R sock rest of the way. Assist to don R sock, and to doff/don L sock.) Toileting Hygiene (QC): 1 (Based on clinical judgement, pt would require 2 person assistance to manage clothing and perform hygiene.) Assessment/Plan Assessment and Plan Assess & Plan/Chief Complaint Assessment: Catastrophic CVA with left sided weakness Smoker COPD HTN Gout Neuropathy CRI Alcoholism Depression Anxiety Plan: IRF protocol Pain meds Baclofen Home meds Ativan for etoh withdrawal symptoms 09/12/20: Dysphagia screening Monitor for return of function left weakness 09/13/20: Left leg function a bit today Shower today Monitor closely (1) Acute CVA (cerebrovascular accident) Status: Acute (2) Left-sided weakness Status: Acute (3) Gout (4) Alcoholism Status: Chronic (5) Ulcer of great toe Status: Acute (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
[2020-09-13] MEDS: MULTIVIT W/MINERALS TAB (THERAGRAN M) PO SCH (06:36)
[2020-09-13] MEDS: THIAMINE 100 MG (VITAMIN B-1) TAB PO SCH (06:36)
[2020-09-13] MEDS: KCL 10 MEQ TAB (MICRO K) PO SCH (06:36)
[2020-09-13] MEDS: MAGNESIUM OXIDE (MAG-OX)400 MG TAB PO SCH ×2 (09:21→17:56)
[2020-09-13] MEDS: ASPIRIN E.C. 325 MG (ECOTRIN) TABLET PO SCH (09:22)
[2020-09-13] MEDS: ATENOLOL 25 MG (TENORMIN) TAB PO SCH (09:22)
[2020-09-13] MEDS: FOLIC ACID 1 MG TAB PO SCH (09:22)
[2020-09-13] MEDS: amLODIPine 5 MG (NORVASC) TAB PO SCH (09:23)
[2020-09-13] MEDS: SENNA W/DOCUSATE (SENOKOT S) TABLET PO SCH ×2 (09:28→20:31)
[2020-09-13] MEDS: polyethylene glycoL POWDER 17 GM (MIRALAX) PACK PO SCH ×2 (09:28→20:40)
[2020-09-13] MEDS: DOCUSATE SODIUM 10 MG/ML 10 ML UDC (COLACE) NG SCH ×2 (09:28→20:40)
--- NOTE | 2020-09-13 11:30 | Physical Therapy Daily Note ---
PT Daily Note-Current Subjective Pt agreeable and anxious to learn what he can do on his own to improve. Discussed wiggling (L) toes and performing exaggerated facial expressions. Pt denies pain but says his (L) heel is "sore". Pt was educated on floating (L) LE on pillow to relieve heel pressure. Nursing notified. Mental Status Patient Orientation: Person, Place, Situation Transfers SCALE: Activities may be completed with or without assistive devices. 2-Bvdqavxzrd-vxreynd completes the activity by him/herself with no assistance from a helper. 5-Set-up or Clean-up Assistance-helper sets up or cleans up; patient completes activity. [place] assists only prior to or following the activity. 4-Supervision or Touching Assistance-helper provides verbal cues and/or touching/steadying and/or contact guard assistance as patient completes activity. Assistance may be provided throughout the activity or intermittently. 3-Partial/Moderate Assistance-helper does LESS THAN HALF the effort. [place] lifts, holds or supports trunk or limbs, but provides less than half the effort. 2-Substantial/Maximal Assistance-helper does MORE THAN HALF the effort. [place] lifts or holds trunk or limbs and provides more than half the effort. 7-Kkthqlxuk-lhgikm does ALL the effort. Patient does none of the effort to complete the activity. Or, the assistance of 2 or more helpers is required for the patient to complete the activity. If activity was not attempted, code reason: 7-Patient Refused. 9-Not Applicable-not attempted and the patient did not perform the activity before the current illness, exacerbation or injury. 10-Not Attempted due to Environmental Limitations-(lack of equipment, weather restraints, etc.). 88-Not Attempted due to Medical Conditions or Safety Concerns. HOB elevated, pt required min A to EOB. Instructed in hooking (R) foot under (L) to manuever to EOB. Instructed to pay attention and care for (L) UE. Pt followed all instructions perfectly for good and controlled transfer to EOB. Treatments (L) UE PROM all planes. (L) LE PROM for DF/PF progressed to AROM DF/PF with target. Pt positioned for SAQ (L) LE and passive Ext/ eccentric lowering to the bed with muscle tapping of quad x 20reps. Hooklying (L) hip AROM hip ER/IR with target x 10. Bridge with manual weight bearing through (L) foot and ankle for proprioception. Tranfer sit to stand with min-mod A, bed elevated. Pt worked in standing at PW x 15' with one rest break. Standing: Instructed to engage (L)quad and glute 2 x 10 reps. Weight shifting R<-> L 2 x 10 reps with CGA of 2 persons, vc's to maintain knee ext. Pt demonstrated ability to slide to his R by pivoting (R) foot and adducting (L) with support of PW, manual assist to move walker to his R. Transfer back to bed with manual assist (L) LE. Pt resting with (L) UE and (B) LE floating on pillows. Assessment Current Status: Good Progress Pt demonstrated strength 1+/5 DF/PF, 2-/5 (L) quad and glute, 2/5 (L) hip ER/IR, 3/5 (L) adductors. Pt pleased with improved ability transfer and stand. Pt showed good participation and eagerness to improve. Pt was fatigued with treatment. Pt resting with call light and all needs met post therapy. PT Short Term Goals Short Term Goals Time Frame: Sep 18, 2020 Roll Left & Right: 6 Sit to lyin Lying to sitting on side of be: 3 Sit to stand: 3 Chair/xoh-ow-lueyk transfer: 3 Toilet transfer: 3 Walk 10 feet: 3 Wheel 50ft w/2 turns: 4 Wheel 150 feet: 4 PT Binding Bench Worker Goals Binding Bench Worker Goals PT Mcfp Goals Time Frame: Oct 02, 2020 Roll Left & Right (QC): 6 Sit to Lying (QC): 6 Lying-Sitting on Side/Bed(QC): 6 Sit to Stand (QC): 4 Chair/Tun-wx-Ertjo Xfer(QC): 4 Toilet Transfer (QC): 4 Car Transfer (QC): 4 Does the Patient Walk: No and Walking Goal IS indicated Walk 10 feet (QC): 4 Walk 50ft with 2 Turns (QC): 4 Walk 150 ft (QC): 4 Walking 10ft on Uneven Surface: 4 1 Step (curb) (QC): 3 4 Steps (QC): 3 12 Steps (QC): 88 Picking up an Object (QC): 4 Wheel 50 feet with 2 turns (QC: 6 Wheel 150 feet: 6 PT Plan Treatment/Plan Treatment Plan: Continue Plan of Care Treatment Plan: Bed Mobility, Education, Functional Activity Francesca, Functional Strength, Group Therapy, Gait, Safety, Therapeutic Exercise, Transfers Treatment Duration: Sep 25, 2020 Frequency: At least 5 of 7 days/Wk (IRF) Estimated Hrs Per Day: 1.5 hours per day Patient and/or Family Agrees t: Yes Time/GCodes Time In: 925 Time Out: 1020 Total Billed Treatment Time: 55 Total Billed Treatment 1, Ther ex x 30', FA x 25' FABIANA KNIGHT CPTA Sep 13, 2020 11:29
[2020-09-13 16:58] VITALS: BP 137/71
--- NOTE | 2020-09-13 18:00 | NUR ---
[place] removed per physician orders at approximately 1100. Patient then taken to shower room and given shower by FOOD PROCESSING SCIENTIST. Patient tolerated well. Patient able to urinate on his own with no issues. Noted that meatus of penis is red. Discussed with patient many times that nursing staff is here to assist and help patient find alternative ways to complete ADLs. Patient and nurse discussed toileting options. Patient was wet twice and did not let staff know, but did express that he did not want to bother staff. Patient cleaned up, and reminded that staff is here to assist. Patient using Quick Change incontinent wraps. He is able to remove wraps and cleans veronica area on his own and staff applies new wrap. Patient also discussed with this nurse during this shift that he is experiencing some anger, frustration, and grief concerning his stroke. Patient expressed that he noticed that he is easily tearful. Patient reassured and nurse remained at bedside while patient talked.
[2020-09-13] MEDS: LORazepam 0.5 MG (ATIVAN) TABLET PO SCH (20:31)
[2020-09-14] MEDS: MELATONIN 3 MG TABLET PO PRN (01:28)
[2020-09-14 05:06] VITALS: BP 135/76
[2020-09-14] MEDS: THIAMINE 100 MG (VITAMIN B-1) TAB PO SCH (06:22)
[2020-09-14] MEDS: KCL 10 MEQ TAB (MICRO K) PO SCH (06:22)
[2020-09-14] MEDS: MULTIVIT W/MINERALS TAB (THERAGRAN M) PO SCH (06:22)
[2020-09-14] MEDS: DOCUSATE SODIUM 10 MG/ML 10 ML UDC (COLACE) NG SCH ×2 (09:16→20:45)
[2020-09-14] MEDS: polyethylene glycoL POWDER 17 GM (MIRALAX) PACK PO SCH ×2 (09:16→20:45)
[2020-09-14] MEDS: FOLIC ACID 1 MG TAB PO SCH (09:16)
[2020-09-14] MEDS: amLODIPine 5 MG (NORVASC) TAB PO SCH (09:17)
[2020-09-14] MEDS: ATENOLOL 25 MG (TENORMIN) TAB PO SCH (09:17)
[2020-09-14] MEDS: SENNA W/DOCUSATE (SENOKOT S) TABLET PO SCH ×2 (09:17→20:46)
[2020-09-14] MEDS: MAGNESIUM OXIDE (MAG-OX)400 MG TAB PO SCH ×2 (09:17→17:58)
[2020-09-14] MEDS: ASPIRIN E.C. 325 MG (ECOTRIN) TABLET PO SCH (09:17)
[2020-09-14 17:05] VITALS: BP 113/58
--- NOTE | 2020-09-14 17:22 | PM&R Progress Note ---
Subjective HPI/CC On Admission Date Seen by Provider: Sep 14, 2020 Time Seen by Provider: 17:30 Subjective/Events-last exam 09/14/20: Turn Q 2hours Refusing stool softners BM 09/10/20 Colace and Senna taken today 09/13/20: Advancing diet Moved left leg a bit today No function in left arm though Shower today and shave Crushing his meds with pudding since he did choke on thin liquids Advancing diet as tolerated Bowels moved two days ago Pt appears to be very chronically ill Conferred with RN Reviewed therapy notes Checked meds and labs Review of Systems General: Fatigue, Malaise Gastrointestinal: Constipation Neurological: Weakness, Incoordination Objective Exam Vital Signs Vital Signs Date Time Temp Pulse Resp B/P (MAP) Pulse Ox O2 Delivery O2 Flow Rate FiO2 09/15/20 01:00 70 09/14/20 20:46 Room Air 09/14/20 17:05 37.0 18 113/58 (76) 90 Capillary Refill : Less Than 3 Seconds General Appearance: No Apparent Distress, WD/WN, Anxious, Chronically ill HEENT: PERRL/EOMI, Normal ENT Inspection, Pharynx Normal Neck: Full Range of Motion, Normal Inspection, Non Tender, Supple, Carotid Bruit Respiratory: Chest Non Tender, Lungs Clear, Normal Breath Sounds, No Accessory Muscle Use, No Respiratory Distress Cardiovascular: Regular Rate, Rhythm, No Edema, No Gallop, No JVD, No Murmur, Normal Peripheral Pulses Gastrointestinal: Normal Bowel Sounds, No Organomegaly, No Pulsatile Mass, Non Tender, Soft Back: Normal Inspection, No CVA Tenderness, No Vertebral Tenderness Extremity: Normal Capillary Refill, Normal Inspection, Normal Range of Motion (except left side weakness), Non Tender, No Calf Tenderness, No Pedal Edema Neurologic/Psychiatric: Alert, Oriented x3, Normal Mood/Affect, occupational therapist II-XII Norm as Tested, Abnormal Gait, Depressed Affect, Facial Droop (left), Motor Weakness (left sided flaccidity) Skin: Normal Color, Warm/Dry Lymphatic: No Adenopathy Results/Procedures Lab Patient resulted labs reviewed. FIM Transfers Therapy Code Descriptions/Definitions Functional [place] Measure: 0=Not Assessed/NA 4=Minimal Assistance 1=Total Assistance 5=Supervision or Setup 2=Maximal Assistance 6=Modified [place] 3=Moderate Assistance 7=Complete IndependenceSCALE: Activities may be completed with or without assistive devices. 4-Gwynrzirqt-lekphui completes the activity by him/herself with no assistance from a helper. 5-Set-up or Clean-up Assistance-helper sets up or cleans up; patient completes activity. [place] assists only prior to or following the activity. 4-Supervision or Touching Assistance-helper provides verbal cues and/or touching/steadying and/or contact guard assistance as patient completes activity. Assistance may be provided throughout the activity or intermittently. 3-Partial/Moderate Assistance-helper does LESS THAN HALF the effort. [place] lif ts, holds or supports trunk or limbs, but provides less than half the effort. 2-Substantial/Maximal Assistance-helper does MORE THAN HALF the effort. [place] lifts or holds trunk or limbs and provides more than half the effort. 4-Zsbwrtkta-kbhaee does ALL the effort. Patient does none of the effort to complete the activity. Or, the assistance of 2 or more helpers is required for the patient to complete the activity. If activity was not attempted, code reason: 7-Patient Refused. 9-Not Applicable-not attempted and the patient did not perform the activity before the current illness, exacerbation or injury. 10-Not Attempted due to Environmental Limitations-(lack of equipment, weather restraints, etc.). 88-Not Attempted due to Medical Conditions or Safety Concerns. Roll Left to Right (QC): 3 Sit to Lying (QC): 10 Sit to Stand (QC): 2 Chair/Kbb-py-Yzaoh Xfer(QC): 2 Car Transfer (QC): 2 Gait Training Does the Patient Walk?: Yes Distance: 6'x3 Walk 10 feet (QC): 88 Walk 50 ft with 2 Turns(QC): 88 Walk 150 ft (QC): 88 Walking 10ft/uneven surface-QC: 88 Gait Assistive Device: Parallel Bars Wheelchair Training Does the Pt Use a Wheelchair?: Yes Distance: 150' Wheel 50 ft with 2 turns (QC): 3 Wheel 150 ft (QC): 3 Type of Wheelchair: Manual Stair Training 1 Step (curb) (QC): 88 4 Steps (QC): 88 12 Steps (QC): 88 Balance Picking up an Object (QC): 88 ADL-Treatment Eating (QC): 5 (set up assistance, pt reports being able to use utensils, bring food to mouth, and eat.) Oral Hygiene (QC): 5 (set up, pt able to brush teeth after toothpaste placed on toothbrush) Shower/Bathe Self (QC): 1 (Assist x2 required to wash buttocks. Pt able to wash chest/abdomen, periarea, and thighs, required assistance with other parts.) Upper Body Dressing (QC): 3 (Mod A, pt able to thread head and RUE into shirt, required assistance with L and managing down.) Lower Body Dressing (QC): 1 (Pt required assistance threading BLEs into brief, assist x2 in stand to manage brief up) On/Off Footwear (QC): 2 (Max A, pt able to push R sock down off of heel, assist to remove R sock rest of the way. Assist to don R sock, and to doff/don L sock.) Toileting Hygiene (QC): 1 (Based on clinical judgement, pt would require 2 person assistance to manage clothing and perform hygiene.) Assessment/Plan Assessment and Plan Assess & Plan/Chief Complaint Assessment: Catastrophic CVA with left sided weakness Smoker COPD HTN Gout Neuropathy CRI Alcoholism Depression Anxiety Plan: IRF protocol Pain meds Baclofen Home meds Ativan for etoh withdrawal symptoms 09/12/20: Dysphagia screening Monitor for return of function left weakness 09/13/20: Left leg function a bit today Shower today Monitor closely 09/14/20: BM regimen Turn Q 2hours IRF protocol (1) Acute CVA (cerebrovascular accident) Status: Acute (2) Left-sided weakness Status: Acute (3) Gout (4) Alcoholism Status: Chronic (5) Ulcer of great toe Status: Acute (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
--- NOTE | 2020-09-14 19:23 | NUR ---
Bedside report received from SANDEEP UMAÑA, assume care of pt
[2020-09-14] MEDS: LORazepam 0.5 MG (ATIVAN) TABLET PO SCH (20:42)
--- NOTE | 2020-09-14 20:42 | NUR ---
tried to explain pt of need to take laxatives as has not had BM since tue but pt refuses laxatives, states feel I will have one soon & worries about having accident in bed, reassured pt bed not important he is important but still refuses Colace, miralax & Senokot
[2020-09-15 05:29] VITALS: BP 136/64
[2020-09-15 06:06] LABS: BASOPHILS # (AUTO) 0.1 10^3/uL (0.0-0.1); BASOPHILS % (AUTO) 1 % (0-10); EOSINOPHILS # (AUTO) 0.5 10^3/uL (0.0-0.3); EOSINOPHILS % (AUTO) 5 % (0-10); HEMATOCRIT 46 % (40-54); HEMOGLOBIN 15.9 g/dL (13.3-17.7); LYMPHOCYTES # (AUTO) 1.6 10^3/uL (1.0-4.0); LYMPHOCYTES % (AUTO) 18 % (12-44); MEAN CORPUSCULAR HEMOGLOBIN 39 pg (25-34); MEAN CORPUSCULAR HGB CONC 35 g/dL (32-36); MEAN CORPUSCULAR VOLUME 112 fL (80-99); MEAN PLATELET VOLUME 10.5 fL (9.0-12.2); MONOCYTES % (AUTO) 11 % (0-12); NEUTROPHILS # (AUTO) 5.8 10^3/uL (1.8-7.8); NEUTROPHILS % (AUTO) 65 % (42-75); PLATELET COUNT 206 10^3/uL (130-400)
[2020-09-15 06:14] LABS: CHLORIDE 103 MMOL/L (98-107); POTASSIUM 3.6 MMOL/L (3.6-5.0); SODIUM 138 MMOL/L (135-145)
[2020-09-15 06:15] LABS: CALCIUM 8.5 MG/DL (8.5-10.1)
[2020-09-15 06:27] LABS: ALBUMIN 3.6 GM/DL (3.2-4.5)
[2020-09-15 06:29] LABS: GLUCOSE 101 MG/DL (70-105); TOTAL PROTEIN 6.2 GM/DL (6.4-8.2)
[2020-09-15 06:30] LABS: CARBON DIOXIDE 22 MMOL/L (21-32)
[2020-09-15 06:33] LABS: ALKALINE PHOSPHATASE 109 U/L (40-136); CREATININE SERUM 0.75 MG/DL (0.60-1.30); GFR ESTIMATED > 60
[2020-09-15 06:34] LABS: BUN/CREATININE RATIO 20
[2020-09-15 06:36] LABS: ALANINE AMINOTRANSFERASE 35 U/L (0-55)
[2020-09-15] MEDS: MULTIVIT W/MINERALS TAB (THERAGRAN M) PO SCH (06:38)
[2020-09-15] MEDS: THIAMINE 100 MG (VITAMIN B-1) TAB PO SCH (06:38)
[2020-09-15] MEDS: KCL 10 MEQ TAB (MICRO K) PO SCH (06:38)
--- NOTE | 2020-09-15 09:00 | Physical Therapy Daily Note ---
PT Daily Note-Current Subjective Pt presents supine in bed. Pt agrees to Pt. Pt reports no pain. Pt requests attempting a BM before starting therapy. Appearance At conclusion of PT treatment patient is in recliner under supervision of OT to continue their session. Mental Status Patient Orientation: Person, Place, Time, Eyes Open, Situation Transfers SCALE: Activities may be completed with or without assistive devices. 3-Zjqeieresr-maybqti completes the activity by him/herself with no assistance from a helper. 5-Set-up or Clean-up Assistance-helper sets up or cleans up; patient completes activity. [place] assists only prior to or following the activity. 4-Supervision or Touching Assistance-helper provides verbal cues and/or touching/steadying and/or contact guard assistance as patient completes activity. Assistance may be provided throughout the activity or intermittently. 3-Partial/Moderate Assistance-helper does LESS THAN HALF the effort. [place] lifts, holds or supports trunk or limbs, but provides less than half the effort. 2-Substantial/Maximal Assistance-helper does MORE THAN HALF the effort. [place] lifts or holds trunk or limbs and provides more than half the effort. 0-Niqgxjjuq-ymxhcg does ALL the effort. Patient does none of the effort to complete the activity. Or, the assistance of 2 or more helpers is required for the patient to complete the activity. If activity was not attempted, code reason: 7-Patient Refused. 9-Not Applicable-not attempted and the patient did not perform the activity b efore the current illness, exacerbation or injury. 10-Not Attempted due to Environmental Limitations-(lack of equipment, weather restraints, etc.). 88-Not Attempted due to Medical Conditions or Safety Concerns. Lying to Sitting/Side of Bed(Q: 3 Sit to Stand (QC): 3 Chair/Elx-xz-Samnx Xfer(QC): 3 Toilet Transfer (QC): 3 Min assist lying->EOB and sit to stand. Mod Assist chair to chair and toilet transfer. Gait Training Does the Patient Walk?: Yes Distance: 6' Gait Persons Needed: 2 Gait Assistive Device: Walker Platform Patient is able to ambulate approx 4' outside of parallel bars by using platform walker. Pt is able to progress own RLE. Pt then ambulates inside parallel bars (6'x2) and is able to increase rate of gait. Wheelchair Training Does the Pt Use a Wheelchair?: Yes Wheel 50 ft with 2 turns (QC): 4 Wheel 150 ft (QC): 4 Type of Wheelchair: Manual Pt is able to propel self with SBA; pt continues to make jerking momentum movements with trunk. Pt struggles with tight turns. Treatments Gait training Assessment Current Status: Good Progress Pt is improving ability to weightbear with gait; pt does not require consistent R knee blocking. Pt improving transfers chair to chair. Pt was able to complete BM at bedside commode; nurse was notified of this; pt stood with PT while OT completed wiping dependently. PT Short Term Goals Short Term Goals Time Frame: Sep 18, 2020 Roll Left & Right: 6 Sit to lyin Lying to sitting on side of be: 3 Sit to stand: 3 Chair/jaq-rk-uzuin transfer: 3 Toilet transfer: 3 Walk 10 feet: 3 Wheel 50ft w/2 turns: 4 Wheel 150 feet: 4 PT Bulk System Operator Goals Bulk System Operator Goals PT Bulk System Operator Goals Time Frame: Oct 02, 2020 Roll Left & Right (QC): 6 Sit to Lying (QC): 6 Lying-Sitting on Side/Bed(QC): 6 Sit to Stand (QC): 4 Chair/Yga-sg-Qrftg Xfer(QC): 4 Toilet Transfer (QC): 4 Car Transfer (QC): 4 Does the Patient Walk: No and Walking Goal IS indicated Walk 10 feet (QC): 4 Walk 50ft with 2 Turns (QC): 4 Walk 150 ft (QC): 4 Walking 10ft on Uneven Surface: 4 1 Step (curb) (QC): 3 4 Steps (QC): 3 12 Steps (QC): 88 Picking up an Object (QC): 4 Wheel 50 feet with 2 turns (QC: 6 Wheel 150 feet: 6 PT Plan Problem List Problem List: Activity Tolerance, Functional Strength, Safety, Balance, Gait, Transfer, Bed Mobility, ROM Treatment/Plan Treatment Plan: Continue Plan of Care Treatment Plan: Bed Mobility, Education, Functional Activity Francesca, Functional Strength, Group Therapy, Gait, Safety, Therapeutic Exercise, Transfers Treatment Duration: Sep 25, 2020 Frequency: At least 5 of 7 days/Wk (IRF) Estimated Hrs Per Day: 1.5 hours per day Patient and/or Family Agrees t: Yes Safety Risks/Education Patient Education: Gait Training, Transfer Techniques, Correct Positioning, W/C Management, Safety Issues Teaching Recipient: Patient Teaching Methods: Demonstration, Discussion Response to Teaching: Reinforcement Needed Time/GCodes Time In: 0800 Time Out: 09 Total Billed Treatment Time: 60 Total Billed Treatment 1 visit FA 40' GT 20' Co-treated with OT due to patient's limitations in strength, mobility, transfer s, and coordination of UEs and LEs. PT focused on transfers and gait while OT focused on hygiene and UE placement. KRISTINE HAWK PT Sep 15, 2020 09:00
--- NOTE | 2020-09-15 09:00 | PM&R Progress Note ---
Subjective HPI/CC On Admission Date Seen by Provider: Sep 15, 2020 Time Seen by Provider: 09:00 Subjective/Events-last exam 09/15/20: Bowels finally moved today Lifting left leg a bit Tolerating food intake without much dysphasia Psych evaluation will be provided because of anxiety and depression and situational grief reaction due to catastrophic stroke Pt overall is very depressed Labs are okay 09/14/20: Turn Q 2hours Refusing stool softners BM 09/10/20 Colace and Senna taken today 09/13/20: Advancing diet Moved left leg a bit today No function in left arm though Shower today and shave Crushing his meds with pudding since he did choke on thin liquids Advancing diet as tolerated Bowels moved two days ago Pt appears to be very chronically ill Conferred with RN Reviewed therapy notes Checked meds and labs Review of Systems General: Fatigue, Malaise Neurological: Weakness, Numbness, Incoordination Objective Exam Vital Signs Vital Signs Date Time Temp Pulse Resp B/P (MAP) Pulse Ox O2 Delivery O2 Flow Rate FiO2 09/16/20 01:00 72 09/15/20 20:30 95 Room Air 09/15/20 16:18 36.6 16 132/62 (85) Capillary Refill : Less Than 3 Seconds General Appearance: No Apparent Distress, WD/WN, Anxious, Chronically ill HEENT: PERRL/EOMI, Normal ENT Inspection, Pharynx Normal Neck: Full Range of Motion, Normal Inspection, Non Tender, Supple, Carotid Bruit Respiratory: Chest Non Tender, Lungs Clear, Normal Breath Sounds, No Accessory Muscle Use, No Respiratory Distress Cardiovascular: Regular Rate, Rhythm, No Edema, No Gallop, No JVD, No Murmur, Normal Peripheral Pulses Gastrointestinal: Normal Bowel Sounds, No Organomegaly, No Pulsatile Mass, Non Tender, Soft Back: Normal Inspection, No CVA Tenderness, No Vertebral Tenderness Extremity: Normal Capillary Refill, Normal Inspection, Normal Range of Motion (except left side weakness), Non Tender, No Calf Tenderness, No Pedal Edema Neurologic/Psychiatric: Alert, Oriented x3, Normal Mood/Affect, 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 FIM Transfers Therapy Code Descriptions/Definitions Functional [place] Measure: 0=Not Assessed/NA 4=Minimal Assistance 1=Total Assistance 5=Supervision or Setup 2=Maximal Assistance 6=Modified [place] 3=Moderate Assistance 7=Complete IndependenceSCALE: Activities may be completed with or without assistive devices. 3-Bgzzbmtehz-kdfmtdc completes the activity by him/herself with no assistance from a helper. 5-Set-up or Clean-up Assistance-helper sets up or cleans up; patient completes activity. [place] assists only prior to or following the activity. 4-Supervision or Touching Assistance-helper provides verbal cues and/or touching/steadying and/or contact guard assistance as patient completes activity. Assistance may be provided throughout the activity or intermittently. 3-Partial/Moderate Assistance-helper does LESS THAN HALF the effort. [place] lifts, holds or supports trunk or limbs, but provides less than half the effort. 2-Substantial/Maximal Assistance-helper does MORE THAN HALF the effort. [place] lifts or holds trunk or limbs and provides more than half the effort. 0-Rdpbupebl-pnghhs does ALL the effort. Patient does none of the effort to complete the activity. Or, the assistance of 2 or more helpers is required for the patient to complete the activity. If activity was not attempted, code reason: 7-Patient Refused. 9-Not Applicable-not attempted and the patient did not perform the activity before the current illness, exacerbation or injury. 10-Not Attempted due to Environmental Limitations-(lack of equipment, weather restraints, etc.). 88-Not Attempted due to Medical Conditions or Safety Concerns. Roll Left to Right (QC): 3 Sit to Lying (QC): 10 Sit to Stand (QC): 3 Chair/Ebv-ah-Ixphu Xfer(QC): 3 Car Transfer (QC): 2 Gait Training Does the Patient Walk?: Yes Distance: 6' Walk 10 feet (QC): 88 Walk 50 ft with 2 Turns(QC): 88 Walk 150 ft (QC): 88 Walking 10ft/uneven surface-QC: 88 Gait Persons Needed: 2 Gait Assistive Device: Walker Platform Wheelchair Training Does the Pt Use a Wheelchair?: Yes Distance: 150' Wheel 50 ft with 2 turns (QC): 3 Wheel 150 ft (QC): 3 Type of Wheelchair: Manual Stair Training 1 Step (curb) (QC): 88 4 Steps (QC): 88 12 Steps (QC): 88 Balance Picking up an Object (QC): 88 ADL-Treatment Eating (QC): 5 (set up assistance, pt reports being able to use utensils, bring food to mouth, and eat.) Oral Hygiene (QC): 5 (set up, pt able to brush teeth after toothpaste placed on toothbrush) Shower/Bathe Self (QC): 1 (Assist x2 required to wash buttocks. Pt able to wash chest/abdomen, periarea, and thighs, required assistance with other parts.) Upper Body Dressing (QC): 3 (Mod A, pt able to thread head and RUE into shirt, required assistance with L and managing down.) Lower Body Dressing (QC): 1 (Pt required assistance threading BLEs into brief, assist x2 in stand to manage brief up) On/Off Footwear (QC): 2 (Max A, pt able to push R sock down off of heel, assist to remove R sock rest of the way. Assist to don R sock, and to doff/don L sock.) Toileting Hygiene (QC): 1 (Based on clinical judgement, pt would require 2 person assistance to manage clothing and perform hygiene.) Assessment/Plan Assessment and Plan Assess & Plan/Chief Complaint Assessment: Catastrophic CVA with left sided weakness Smoker COPD HTN Gout Neuropathy CRI Alcoholism Depression Anxiety Plan: IRF protocol Pain meds Baclofen Home meds Ativan for etoh withdrawal symptoms 09/12/20: Dysphagia screening Monitor for return of function left weakness 09/13/20: Left leg function a bit today Shower today Monitor closely 09/14/20: BM regimen Turn Q 2hours IRF protocol 09/15/20: Monitor BP Fall risk Monitor dysphagia and aspiration risk (1) Acute CVA (cerebrovascular accident) Status: Acute (2) Left-sided weakness Status: Acute (3) Gout (4) Alcoholism Status: Chronic (5) Ulcer of great toe Status: Acute (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
[2020-09-15] MEDS: ATENOLOL 25 MG (TENORMIN) TAB PO SCH (09:17)
[2020-09-15] MEDS: ASPIRIN E.C. 325 MG (ECOTRIN) TABLET PO SCH (09:17)
[2020-09-15] MEDS: FOLIC ACID 1 MG TAB PO SCH (09:17)
[2020-09-15] MEDS: amLODIPine 5 MG (NORVASC) TAB PO SCH (09:17)
[2020-09-15] MEDS: MAGNESIUM OXIDE (MAG-OX)400 MG TAB PO SCH ×2 (09:18→18:01)
[2020-09-15] MEDS: polyethylene glycoL POWDER 17 GM (MIRALAX) PACK PO SCH ×2 (09:20→21:40)
[2020-09-15] MEDS: DOCUSATE SODIUM 10 MG/ML 10 ML UDC (COLACE) NG SCH ×2 (09:20→21:40)
[2020-09-15] MEDS: SENNA W/DOCUSATE (SENOKOT S) TABLET PO SCH ×2 (09:20→21:40)
--- NOTE | 2020-09-15 09:24 | Occupational Ther Daily Note ---
OT Current Status-Daily Note Subjective Pt laying in bed, agreeable to OT tx. Pt does not verbalize any pain. ADL-Treatment Therapy Code Descriptions/Definitions Functional [place] Measure: 0=Not Assessed/NA 4=Minimal Assistance 1=Total Assistance 5=Supervision or Setup 2=Maximal Assistance 6=Modified [place] 3=Moderate Assistance 7=Complete IndependenceSCALE: Activities may be completed with or without assistive devices. 9-Erkzudpvwu-ltojyqt completes the activity by him/herself with no assistance from a helper. 5-Set-up or Clean-up Assistance-helper sets up or cleans up; patient completes activity. [place] assists only prior to or following the activity. 4-Supervision or Touching Assistance-helper provides verbal cues and/or touching/steadying and/or contact guard assistance as patient completes activity. Assistance may be provided throughout the activity or intermittently. 3-Partial/Moderate Assistance-helper does LESS THAN HALF the effort. [place] lifts, holds or supports trunk or limbs, but provides less than half the effort. 2-Substantial/Maximal Assistance-helper does MORE THAN HALF the effort. [place] lifts or holds trunk or limbs and provides more than half the effort. 3-Nswtrbzmx-uohyof does ALL the effort. Patient does none of the effort to complete the activity. Or, the assistance of 2 or more helpers is required for the patient to complete the activity. If activity was not attempted, code reason: 7-Patient Refused. 9-Not Applicable-not attempted and the patient did not perform the activity before the current illness, exacerbation or injury. 10-Not Attempted due to Environmental Limitations-(lack of equipment, weather restraints, etc.). 88-Not Attempted due to Medical Conditions or Safety Concerns. Shower/Bathe Self (QC): 1 (Pt able to wash LUE, chest, abdomen, periarea, and bilateral thighs. Pt required assistance washing RUE, bilateral lower legs and feet, and assist x2 in stand to wash buttocks. ) Upper Body Dressing (QC): 3 (Mod A. OT educated pt on hemiplegic dressing technique, pt required assist threading LUE and pulling shirt down.) Lower Body Dressing (QC): 1 (Pt required assist threading BLEs into pants/underwear, and assist x2 in stand to manage pants up) On/Off Footwear: 1 (assist to don/doff gripper socks) Toileting Hygiene (QC): 1 (assist x2 for hygiene and clothing management) Toilet Transfer (QC): 3 (Mod A SPT from bed to BS, and Mod A SPT from BSC to w/c.) Other Treatment OT/PT cotreat due to skill of 2 clinicians which a rehabilitation teacher could not perform in order to coordinate UE/LEs, decrease fall risk, focus on increasing safety and independence with functional mobility and transfers. OT focused on ADLs, UE placement, and assist with functional mobility/transfers, while PT focused on LE placement, functional mobility/transfers, OT & PT performed skilled cues for safety. Pt transferred from bed to BS via SPT towards R side. Pt completed toileting, x2 assist for hygiene, then transferred to w/c. Pt taken to therapy gym, in order to increase functional strength/endurance and functional mobility, pt stood at platform walker, ambulating approx 4'. Pt then ambulated inside parallel bars (6'x2). Pt returned to his room, transferring to recliner. PT tx ended, OT continued with tx. Pt completed sponge bath at recliner, then donned clothes. x2 assist required for lower body dressing. Pt required mod A with SPT transfers throughout session. Post OT tx, pt seated in recliner, call light in reach and all needs met. Education OT Patient Education: Correct positioning, Energy conservation, Modified ADL techniques, Progress toward Goal/Update tx plan, Purpose of tx/functional activities, Rehab process Teaching Recipient: Patient Teaching Methods: Discussion Response to Teaching: Verbalize Understanding OT Discharge Specialist Goals Care Home Goals Time Frame: Oct 03, 2020 Eating (QC): 6 Oral Hygiene (QC): 6 Toileting Hygiene (QC): 4 Shower/Bathe Self (QC): 4 Upper Body Dressing (QC): 6 Lower Body Dressing (QC): 4 On/Off Footwear (QC): 4 Additional Goals: 1-Demonstrate ADL Tasks, 2-Verbalize Understanding, 3-Impr oveStrength/Francesca 1=Demonstrate adherence to instructed precautions during ADL tasks. 2=Patient will verbalize/demonstrate understanding of assistive devices/modifications for ADL. 3=Patient will improve strength/tolerance for activity to enable patient to perform ADL's. OT Education/Plan Problem List/Assessment Assessment: Decreased Activ Tolerance, Decreased UE Strength, Impaired Funct Balance, Impaired I ADL's, Impaired Self-Care Skills, Restricted Funct UE ROM Discharge Recommendations Plan/Recommendations: Continue POC Treatment Plan/Plan of Care Patient would benefit from OT for education, treatment and training to promote independence in ADL's, mobility, safety and/or upper extremity function for ADL's. Plan of Care: ADL Retraining, Functional Mobility, Group Exercise/Act as Ind, UE Funct Exercise/Act, UE Neuromus Re-Ed/Coord Treatment Duration: Oct 03, 2020 Frequency: At least 5 of 7 days/Wk (IRF) Estimated Hrs Per Day: 1.5 hours per day Agreement: Yes Rehab Potential: Fair Time/GCodes Start Time: 08:00 Stop Time: 09:15 Total Time Billed (hr/min): 75 Billed Treatment Time 0169-2810 OT/PT cotreat 7021-0239 OT tx 1, ADL 3 (45'), FA 2 (30') WILFREDO CORLEY OT Sep 15, 2020 09:24
--- NOTE | 2020-09-15 11:20 | Progress Note ---
ANAHY FISHER MED STUDENT 09/15/20 1120: Progress Note Patient is a 59 y.o. male who was admitted to IRF on 09/11 from the ICU after CVA event for weakness in left upper and lower LE and facial weakness. He has a history of EtOH and tobacco abuse. He was started on PT, OT and ST for his symptoms. He has noted deficiencies in ambulation, self-care activities and other ADLs. He has noted some fleeting episodes of tingling in the left arm, but has not regained ability to move it as of yet. He has had some fleeting episodes of being able to slightly lift the left leg off of the bed briefly. Facial droop has grossly improved. He states today he feels therapy is helping and is motivated to continue. He has some anxiety and depression about his current situation. Behavioral health will be consulted to further manage this. Tolerating normal diet better today, no nausea or discomfort with swallowing. Goals are to improve self-care activities, ambulation, and ADL performance. ROMANA CAMPBELL DO 09/16/20 0511: Supervisory-Addendum Brief Verification & Attestation Participated in pt care: history, MDM, physical Personally performed: exam, history, MDM, supervision of care Care discussed with: Medical Student Procedures: n/a Results interpretation: Verified all documentation Verification and Attestation of Medical Student E/M Service A medical student performed and documented this service in my presence. I reviewed and verified all information documented by the medical student and made modifications to such information, when appropriate. I personally performed the physical exam and medical decision making. Romana Campbell, Sep 16, 2020,05:10 ANAHY FISHER MED STUDENT Sep 15, 2020 11:20 ROMANA CAMPBELL DO Sep 16, 2020 05:11
--- NOTE | 2020-09-15 11:21 | Speech Therapy Daily Note ---
Speech Daily Progress Note Subjective Date Seen by Provider: Sep 15, 2020 Time Seen by Provider: 00:30 Patient's facial droop has continued to resolve over the weekend. Patient is now eating full regular meals. Objective Patient completed multiple series of dysarthria exercises with 90% precision given 10% visual/verbal cues. Assessment Assessment Current Status: Good Progress Treatment Plan Continue Plan of Care Speech Short Term Goals Short Term Goals Short Term Goals 1) The patient will complete memory tasks related to her daily needs at 80% or greater with minimal cues. 2) The patient will complete safety awareness tasks related to her daily needs at 80% or greater with minimal cues. 3) The patient will complete problem solving tasks related to her daily needs at 80% or greater with minimal cues. 4) The patient will complete OME for improving speech intelligibility. Speech Keno Dealer Goals Keno Dealer Goals Patient will improve cognitive and speech abilities in order to effectively meet his daily needs with minimal assist. Speech-Plan Patient/Family Goals Patient/Family Goals: Patient plans on returning to his home upon discharge. Treatment Plan Speech Therapy Treatment Plan: Continue Plan of Care Treatment Duration: Sep 25, 2020 Frequency: 4 times per week (Patient will receive skilled ST 4-5x per week) Estimated Hrs Per Day: .5 hour per day Rehab Potential: Fair Barriers to Learning: Patient's recent CVA, difficulty with retention of new information Pt/Family Agrees to Plan: Yes Safety Risks/Education Teaching Recipient: Patient Teaching Methods: Demonstration, Discussion Response to Teaching: Verbalize Understanding, Return Demonstration Education Topics Provided: Safety strategies of oral intake, safety within his room Time Speech Therapy Time In: 09:30 Speech Therapy Time Out: 10:00 Total Billed Time: 30 Billed Treatment Time 1ANIA B[facility]ANIA ST Sep 15, 2020 11:21
--- NOTE | 2020-09-15 15:39 | Physical Therapy Daily Note ---
PT Daily Note-Current Subjective Pt presents in recliner. Pt agrees to PT. Pt reports soreness in L buttock. Appearance At conclusion of PT treatment patient is supine in bed with access to tray, call button, and all needs have been met. Mental Status Patient Orientation: Person, Place, Time, Eyes Open, Situation Transfers SCALE: Activities may be completed with or without assistive devices. 7-Pslevjogka-gqomjkd completes the activity by him/herself with no assistance from a helper. 5-Set-up or Clean-up Assistance-helper sets up or cleans up; patient completes activity. [place] assists only prior to or following the activity. 4-Supervision or Touching Assistance-helper provides verbal cues and/or touching/steadying and/or contact guard assistance as patient completes activity. Assistance may be provided throughout the activity or intermittently. 3-Partial/Moderate Assistance-helper does LESS THAN HALF the effort. [place] lifts, holds or supports trunk or limbs, but provides less than half the effort. 2-Substantial/Maximal Assistance-helper does MORE THAN HALF the effort. [place] lifts or holds trunk or limbs and provides more than half the effort. 9-Icyivskto-ztbxud does ALL the effort. Patient does none of the effort to complete the activity. Or, the assistance of 2 or more helpers is required for the patient to complete the activity. If activity was not attempted, code reason: 7-Patient Refused. 9-Not Applicable-not attempted and the patient did not perform the activity before the current illness, exacerbation or injury. 10-Not Attempted due to Environmental Limitations-(lack of equipment, weather restraints, etc.). 88-Not Attempted due to Medical Conditions or Safety Concerns. Sit to Lying (QC): 3 Sit to Stand (QC): 3 Chair/Gmu-oz-Xolke Xfer(QC): 3 Mod assist. Exercises Supine Ex: Heel Slides, Short Arc Quads Supine Reps: 10 Standing: Sit to Stand Standing Reps: 10 Treatments LE strengthening Assessment Current Status: Fair Progress Pt is improving transferring abilities, though still requires mod assist. Pt is improving RLE muscle function; pt is able to complete 10 heel slides and SAQs on R with AAROM. PT Short Term Goals Short Term Goals Time Frame: Sep 18, 2020 Roll Left & Right: 6 Sit to lyin Lying to sitting on side of be: 3 Sit to stand: 3 Chair/lwv-cy-ofngf transfer: 3 Toilet transfer: 3 Walk 10 feet: 3 Wheel 50ft w/2 turns: 4 Wheel 150 feet: 4 PT Half-Way Goals Half-Way Goals PT Protozoology Teacher Goals Time Frame: Oct 02, 2020 Roll Left & Right (QC): 6 Sit to Lying (QC): 6 Lying-Sitting on Side/Bed(QC): 6 Sit to Stand (QC): 4 Chair/Xel-gt-Dsfxs Xfer(QC): 4 Toilet Transfer (QC): 4 Car Transfer (QC): 4 Does the Patient Walk: No and Walking Goal IS indicated Walk 10 feet (QC): 4 Walk 50ft with 2 Turns (QC): 4 Walk 150 ft (QC): 4 Walking 10ft on Uneven Surface: 4 1 Step (curb) (QC): 3 4 Steps (QC): 3 12 Steps (QC): 88 Picking up an Object (QC): 4 Wheel 50 feet with 2 turns (QC: 6 Wheel 150 feet: 6 PT Plan Problem List Problem List: Activity Tolerance, Functional Strength, Safety, Balance, Gait, Transfer, Bed Mobility, ROM Treatment/Plan Treatment Plan: Continue Plan of Care Treatment Plan: Bed Mobility, Education, Functional Activity Francesca, Functional Strength, Group Therapy, Gait, Safety, Therapeutic Exercise, Transfers Treatment Duration: Sep 25, 2020 Frequency: At least 5 of 7 days/Wk (IRF) Estimated Hrs Per Day: 1.5 hours per day Patient and/or Family Agrees t: Yes Safety Risks/Education Patient Education: Transfer Techniques, Correct Positioning, Safety Issues Teaching Recipient: Patient Teaching Methods: Demonstration, Discussion Response to Teaching: Reinforcement Needed Time/GCodes Time In: 1325 Time Out: 1340 Total Billed Treatment Time: 15 Total Billed Treatment 1 visit EX KRISTINE FAY PT Sep 15, 2020 15:39
[2020-09-15 16:18] VITALS: BP 132/62
--- NOTE | 2020-09-15 18:24 | NUR ---
Orders for Behavioral Health consult received. Virtual Appointment set up for Tuesday at 1300 with Nadege Valadez.
[2020-09-15] MEDS: MELATONIN 3 MG TABLET PO PRN (21:38)
[2020-09-15] MEDS: LORazepam 0.5 MG (ATIVAN) TABLET PO SCH (21:40)
--- NOTE | 2020-09-16 06:17 | PM&R Progress Note ---
Subjective HPI/CC On Admission Date Seen by Provider: Sep 16, 2020 Time Seen by Provider: 09:30 Subjective/Events-last exam 09/16/20: Telemetry needs to be maintained until loop recorder is placed Will reach out to Dr. Walker tomorrow Incontinence is an issue so will try to work with him in the urinal positional hernadez to help him In significant denial Behavioral health consult Bowels moved yesterday Catastrophic stroke and his coping mechanism is no longer available with smoking and drinking so that is causing a significant issue 09/15/20: Bowels finally moved today Lifting left leg a bit Tolerating food intake without much dysphasia Psych evaluation will be provided because of anxiety and depression and situational grief reaction due to catastrophic stroke Pt overall is very depressed Labs are okay 09/14/20: Turn Q 2hours Refusing stool softners BM 09/10/20 Colace and Senna taken today 09/13/20: Advancing diet Moved left leg a bit today No function in left arm though Shower today and shave Crushing his meds with pudding since he did choke on thin liquids Advancing diet as tolerated Bowels moved two days ago Pt appears to be very chronically ill Conferred with RN Reviewed therapy notes Checked meds and labs Review of Systems General: Fatigue, Malaise Neurological: Weakness, Incoordination Objective Exam Vital Signs Vital Signs Date Time Temp Pulse Resp B/P (MAP) Pulse Ox O2 Delivery O2 Flow Rate FiO2 09/17/20 01:00 67 09/16/20 20:58 Room Air 09/16/20 16:02 36.2 16 111/58 (75) 97 Capillary Refill : Less Than 3 Seconds General Appearance: No Apparent Distress, WD/WN, Anxious, Chronically ill HEENT: PERRL/EOMI, Normal ENT Inspection, Pharynx Normal Neck: Full Range of Motion, Normal Inspection, Non Tender, Supple, Carotid Bruit Respiratory: Chest Non Tender, Lungs Clear, Normal Breath Sounds, No Accessory Muscle Use, No Respiratory Distress Cardiovascular: Regular Rate, Rhythm, No Edema, No Gallop, No JVD, No Murmur, N ormal Peripheral Pulses Gastrointestinal: Normal Bowel Sounds, No Organomegaly, No Pulsatile Mass, Non Tender, Soft Back: Normal Inspection, No CVA Tenderness, No Vertebral Tenderness Extremity: Normal Capillary Refill, Normal Inspection, Normal Range of Motion (except left side weakness), Non Tender, No Calf Tenderness, No Pedal Edema Neurologic/Psychiatric: Alert, Oriented x3, Normal Mood/Affect, manager purchasing II-XII Norm as Tested, Abnormal Gait, Depressed Affect, Facial Droop (left), Motor Weakness (left sided flaccidity) Skin: Normal Color, Warm/Dry Lymphatic: No Adenopathy Results/Procedures Lab Patient resulted labs reviewed. FIM Transfers Therapy Code Descriptions/Definitions Functional [place] Measure: 0=Not Assessed/NA 4=Minimal Assistance 1=Total Assistance 5=Supervision or Setup 2=Maximal Assistance 6=Modified [place] 3=Moderate Assistance 7=Complete IndependenceSCALE: Activities may be completed with or without assistive devices. 1-Boehnfvnqw-drdgspv completes the activity by him/herself with no assistance from a helper. 5-Set-up or Clean-up Assistance-helper sets up or cleans up; patient completes activity. [place] assists only prior to or following the activity. 4-Supervision or Touching Assistance-helper provides verbal cues and/or touching/steadying and/or contact guard assistance as patient completes activity. Assistance may be provided throughout the activity or intermittently. 3-Partial/Moderate Assistance-helper does LESS THAN HALF the effort. [place] lifts, holds or supports trunk or limbs, but provides less than half the effort. 2-Substantial/Maximal Assistance-helper does MORE THAN HALF the effort. [place] lifts or holds trunk or limbs and provides more than half the effort. 0-Fjjyksjci-fwpufp does ALL the effort. Patient does none of the effort to complete the activity. Or, the assistance of 2 or more helpers is required for the patient to complete the activity. If activity was not attempted, code reason: 7-Patient Refused. 9-Not Applicable-not attempted and the patient did not perform the activity before the current illness, exacerbation or injury. 10-Not Attempted due to Environmental Limitations-(lack of equipment, weather restraints, etc.). 88-Not Attempted due to Medical Conditions or Safety Concerns. Roll Left to Right (QC): 3 Sit to Lying (QC): 3 Sit to Stand (QC): 3 Chair/Pac-qn-Hyezt Xfer(QC): 3 Car Transfer (QC): 2 Gait Training Does the Patient Walk?: Yes Distance: 6' Walk 10 feet (QC): 88 Walk 50 ft with 2 Turns(QC): 88 Walk 150 ft (QC): 88 Walking 10ft/uneven surface-QC: 88 Gait Persons Needed: 2 Gait Assistive Device: Walker Platform Wheelchair Training Does the Pt Use a Wheelchair?: Yes Distance: 150' Wheel 50 ft with 2 turns (QC): 4 Wheel 150 ft (QC): 4 Type of Wheelchair: Manual Stair Training 1 Step (curb) (QC): 88 4 Steps (QC): 88 12 Steps (QC): 88 Balance Picking up an Object (QC): 88 ADL-Treatment Eating (QC): 5 (set up assistance, pt reports being able to use utensils, bring food to mouth, and eat.) Oral Hygiene (QC): 5 (set up, pt able to brush teeth after toothpaste placed on toothbrush) Shower/Bathe Self (QC): 1 (Pt able to wash LUE, chest, abdomen, periarea, and bilateral thighs. Pt required assistance washing RUE, bilateral lower legs and feet, and assist x2 in stand to wash buttocks. ) Upper Body Dressing (QC): 3 (Mod A. OT educated pt on hemiplegic dressing technique, pt required assist threading LUE and pulling shirt down.) Lower Body Dressing (QC): 1 (Pt required assist threading BLEs into pants/unde rwear, and assist x2 in stand to manage pants up) On/Off Footwear (QC): 1 (assist to don/doff gripper socks) Toileting Hygiene (QC): 1 (assist x2 for hygiene and clothing management) Toilet Transfer (QC): 3 (Mod A SPT from bed to BSC, and Mod A SPT from BSC to w/c.) Assessment/Plan Assessment and Plan Assess & Plan/Chief Complaint Assessment: Catastrophic CVA with left sided weakness Smoker COPD HTN Gout Neuropathy CRI Alcoholism Depression Anxiety Plan: IRF protocol Pain meds Baclofen Home meds Ativan for etoh withdrawal symptoms 09/12/20: Dysphagia screening Monitor for return of function left weakness 09/13/20: Left leg function a bit today Shower today Monitor closely 09/14/20: BM regimen Turn Q 2hours IRF protocol 09/15/20: Monitor BP Fall risk Monitor dysphagia and aspiration risk 09/16/20: Nicotine patch Monitor aspiration (1) Acute CVA (cerebrovascular accident) Status: Acute (2) Left-sided weakness Status: Acute (3) Gout (4) Alcoholism Status: Chronic (5) Ulcer of great toe Status: Acute (6) 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
[2020-09-16] MEDS: MULTIVIT W/MINERALS TAB (THERAGRAN M) PO SCH (06:26)
[2020-09-16] MEDS: THIAMINE 100 MG (VITAMIN B-1) TAB PO SCH (06:26)
[2020-09-16] MEDS: KCL 10 MEQ TAB (MICRO K) PO SCH (06:26)
[2020-09-16 06:32] VITALS: BP_SYST 108
--- NOTE | 2020-09-16 08:56 | Physical Therapy Daily Note ---
PT Daily Note-Current Subjective Pt presents sitting upright on EOB. Pt agrees to PT. Pt reports discomfort at left buttock. Appearance At conclusion of PT treatment patient was transferred to recliner where he is left under supervision of OT. Mental Status Patient Orientation: Person, Place, Time, Eyes Open, Situation Transfers SCALE: Activities may be completed with or without assistive devices. 1-Wyvejjbipn-rbdersq completes the activity by him/herself with no assistance from a helper. 5-Set-up or Clean-up Assistance-helper sets up or cleans up; patient completes activity. [place] assists only prior to or following the activity. 4-Supervision or Touching Assistance-helper provides verbal cues and/or touching/steadying and/or contact guard assistance as patient completes activity. Assistance may be provided throughout the activity or intermittently. 3-Partial/Moderate Assistance-helper does LESS THAN HALF the effort. [place] lifts, holds or supports trunk or limbs, but provides less than half the effort. 2-Substantial/Maximal Assistance-helper does MORE THAN HALF the effort. [place] lifts or holds trunk or limbs and provides more than half the effort. 2-Tdwlahdyg-prsecx does ALL the effort. Patient does none of the effort to complete the activity. Or, the assistance of 2 or more helpers is required for the patient to complete the activity. If activity was not attempted, code reason: 7-Patient Refused. 9-Not Applicable-not attempted and the patient did not perform the activity before the current illness, exacerbation or injury. 10-Not Attempted due to Environmental Limitations-(lack of equipment, weather restraints, etc.). 88-Not Attempted due to Medical Conditions or Safety Concerns. Sit to Stand (QC): 3 Chair/Vsa-fr-Ujnwx Xfer(QC): 3 Gait Training Does the Patient Walk?: Yes Distance: 6'x3 Gait Assistive Device: Parallel Bars Pt is walking inside of parallel bars, pt does not need assistance with LLE today for blocking buckling or progression. Exercises Standing balance with UE cone manipulation Standing weightshifts to L side Treatments Standing balance and gait training Assessment Current Status: Good Progress Patient is improving stride length, fluidity, and speed of ambulation in parallel bars. Pt is working to bear weight on LLE and LUE but is still fearful and relies on RUE support. PT Short Term Goals Short Term Goals Time Frame: Sep 18, 2020 Roll Left & Right: 6 Sit to lyin Lying to sitting on side of be: 3 Sit to stand: 3 Chair/dug-wf-vqjxk transfer: 3 Toilet transfer: 3 Walk 10 feet: 3 Wheel 50ft w/2 turns: 4 Wheel 150 feet: 4 PT Prison Goals Hostess Goals PT Hostess Goals Time Frame: Oct 02, 2020 Roll Left & Right (QC): 6 Sit to Lying (QC): 6 Lying-Sitting on Side/Bed(QC): 6 Sit to Stand (QC): 4 Chair/Pds-pz-Rkdhk Xfer(QC): 4 Toilet Transfer (QC): 4 Car Transfer (QC): 4 Does the Patient Walk: No and Walking Goal IS indicated Walk 10 feet (QC): 4 Walk 50ft with 2 Turns (QC): 4 Walk 150 ft (QC): 4 Walking 10ft on Uneven Surface: 4 1 Step (curb) (QC): 3 4 Steps (QC): 3 12 Steps (QC): 88 Picking up an Object (QC): 4 Wheel 50 feet with 2 turns (QC: 6 Wheel 150 feet: 6 PT Plan Problem List Problem List: Activity Tolerance, Functional Strength, Safety, Balance, Gait, Transfer, Bed Mobility, ROM Treatment/Plan Treatment Plan: Continue Plan of Care Treatment Plan: Bed Mobility, Education, Functional Activity Francesca, Functional Strength, Group Therapy, Gait, Safety, Therapeutic Exercise, Transfers Treatment Duration: Sep 25, 2020 Frequency: At least 5 of 7 days/Wk (IRF) Estimated Hrs Per Day: 1.5 hours per day Patient and/or Family Agrees t: Yes Safety Risks/Education Patient Education: Gait Training, Transfer Techniques, Correct Positioning, W/C Management, Safety Issues Teaching Recipient: Patient Teaching Methods: Demonstration, Discussion Response to Teaching: Reinforcement Needed Time/GCodes Time In: 0800 Time Out: 0900 Total Billed Treatment Time: 60 Total Billed Treatment 1 visit NM 20' FA 40' Co-treated with OT due to patients limitation in strength, mobility, and coordination of UEs and LEs. PT worked on gait and balance while OT worked with dressing and UEs. KRISTINE HAWK PT Sep 16, 2020 08:56
[2020-09-16] MEDS: FOLIC ACID 1 MG TAB PO SCH (09:05)
[2020-09-16] MEDS: ASPIRIN E.C. 325 MG (ECOTRIN) TABLET PO SCH (09:05)
[2020-09-16] MEDS: MAGNESIUM OXIDE (MAG-OX)400 MG TAB PO SCH ×2 (09:06→17:57)
[2020-09-16] MEDS: amLODIPine 5 MG (NORVASC) TAB PO SCH (09:06)
[2020-09-16] MEDS: ATENOLOL 25 MG (TENORMIN) TAB PO SCH (09:06)
[2020-09-16] MEDS: DOCUSATE SODIUM 10 MG/ML 10 ML UDC (COLACE) NG SCH ×2 (09:07→20:57)
[2020-09-16] MEDS: polyethylene glycoL POWDER 17 GM (MIRALAX) PACK PO SCH ×2 (09:08→20:57)
[2020-09-16] MEDS: SENNA W/DOCUSATE (SENOKOT S) TABLET PO SCH ×2 (09:08→20:58)
--- NOTE | 2020-09-16 09:37 | Occupational Ther Daily Note ---
OT Current Status-Daily Note Subjective Pt agreeable to OT Tx, does not verbalize any pain. Mental Status/Objective Patient Orientation: Person, Place, Time, Situation ADL-Treatment Therapy Code Descriptions/Definitions Functional [place] Measure: 0=Not Assessed/NA 4=Minimal Assistance 1=Total Assistance 5=Supervision or Setup 2=Maximal Assistance 6=Modified [place] 3=Moderate Assistance 7=Complete IndependenceSCALE: Activities may be completed with or without assistive devices. 9-Cfzdcuarcb-uehfeum completes the activity by him/herself with no assistance from a helper. 5-Set-up or Clean-up Assistance-helper sets up or cleans up; patient completes activity. [place] assists only prior to or following the activity. 4-Supervision or Touching Assistance-helper provides verbal cues and/or touching/steadying and/or contact guard assistance as patient completes activity. Assistance may be provided throughout the activity or intermittently. 3-Partial/Moderate Assistance-helper does LESS THAN HALF the effort. [place] lifts, holds or supports trunk or limbs, but provides less than half the effort. 2-Substantial/Maximal Assistance-helper does MORE THAN HALF the effort. [place] lifts or holds trunk or limbs and provides more than half the effort. 9-Pqibqxlhk-ebvpyi does ALL the effort. Patient does none of the effort to complete the activity. Or, the assistance of 2 or more helpers is required for the patient to complete the activity. If activity was not attempted, code reason: 7-Patient Refused. 9-Not Applicable-not attempted and the patient did not perform the activity b efore the current illness, exacerbation or injury. 10-Not Attempted due to Environmental Limitations-(lack of equipment, weather restraints, etc.). 88-Not Attempted due to Medical Conditions or Safety Concerns. Oral Hygiene (QC): 5 (set up assist, pt able to open toothpaste, put paste onto toothbrush, and brush teeth.) Upper Body Dressing (QC): 3 (Pt able to doff shirt with min cues, mod cues to don shirt. Pt able to place L arm into shirt, pull overhead, and thread L arm, min A pulling shirt down.) Lower Body Dressing (QC): 1 (2 person assistance. Pt required assistance with all parts of donning/doffing pants.) Other Treatment [id number]/PT cotreat due to skill of 2 clinicians required which a cardiac rehabilitation specialist could not perform in order to coordinate UE/LEs, improve dynamic standing balance, and due to pt's limitations in strength, mobility and coordination. OT focused on ADLS, UE placement, cues for sequencing and safety, and functional reaching while PT focused on transfers, ambulation, LE placement, gross overall movements, and dynamic standing balance. Pt seated EOB, lower body dressing completed, then transferred to w/c via SPT. Pt taken to therapy gym. In order to increase dynamic standing balance with functional tasks, pt stood at parallel bars with PT as pt completed reaching activity using RUE with OT. Pt completed reaching for cones in all planes, then took a seated rest break. Pt completed task 2 more times, without a rest between. Pt ambulated in parallel bars, (6'x3), with rest breaks between each set, PT focused on ambulation, as OT focused on LUE placement and cues for UE positioning. Pt stood at parallel bars, completing weightbearing through LUE as OT blocked pt's elbow into extension. Pt taken back to room via w/c, transferring to recliner via SPT. [id number] OT tx: Pt changed shirt, requiring cues for sequencing of task and min A. He then completed oral care with set up at tray table, pt able to complete task using RUE. Pt washed face with set up assistance, then took meds provided by nurse. Pt able to pick pills up from tray table one at a time, and use water jug without straw to take pills. Pt had slight difficulty with large pill, but able to take it on second try. Post OT tx, pt seated in recliner, call light in reach and all needs met. Education OT Patient Education: Correct positioning, Energy conservation, Modified ADL techniques, Progress toward Goal/Update tx plan, Purpose of tx/functional activities, Safety issues Teaching Recipient: Patient Teaching Methods: Discussion Response to Teaching: Verbalize Understanding OT Shelter Goals Shelter Goals Time Frame: Oct 03, 2020 Eating (QC): 6 Oral Hygiene (QC): 6 Toileting Hygiene (QC): 4 Shower/Bathe Self (QC): 4 Upper Body Dressing (QC): 6 Lower Body Dressing (QC): 4 On/Off Footwear (QC): 4 Additional Goals: 1-Demonstrate ADL Tasks, 2-Verbalize Understanding, 3- ImproveStrength/Francesca 1=Demonstrate adherence to instructed precautions during ADL tasks. 2=Patient will verbalize/demonstrate understanding of assistive device s/modifications for ADL. 3=Patient will improve strength/tolerance for activity to enable patient to perform ADL's. OT Education/Plan Problem List/Assessment Assessment: Decreased Activ Tolerance, Decreased UE Strength, Impaired Funct Balance, Impaired I ADL's, Impaired Self-Care Skills, Restricted Funct UE ROM Discharge Recommendations Plan/Recommendations: Continue POC Treatment Plan/Plan of Care Patient would benefit from OT for education, treatment and training to promote independence in ADL's, mobility, safety and/or upper extremity function for ADL's. Plan of Care: ADL Retraining, Functional Mobility, Group Exercise/Act as Ind, UE Funct Exercise/Act, UE Neuromus Re-Ed/Coord Treatment Duration: Oct 03, 2020 Frequency: At least 5 of 7 days/Wk (IRF) Estimated Hrs Per Day: 1.5 hours per day Agreement: Yes Rehab Potential: Fair Time/GCodes Start Time: 08:00 Stop Time: 09:15 Total Time Billed (hr/min): 75 Billed Treatment Time 1, FA 4 (60'), ADL (15') WILFREDO CORLEY OT Sep 16, 2020 09:37
--- NOTE | 2020-09-16 12:14 | Physical Therapy Daily Note ---
PT Daily Note-Current Subjective Pt presents sitting upright in recliner. Pt agrees to PT. Pt reports no pain. Appearance At conclusion of PT treatment patient remains in recliner with access to tray, call button, and all needs have been met. Mental Status Patient Orientation: Person, Place, Time, Eyes Open, Situation Transfers SCALE: Activities may be completed with or without assistive devices. 1-Iyrwoopfqt-ltysgzn completes the activity by him/herself with no assistance from a helper. 5-Set-up or Clean-up Assistance-helper sets up or cleans up; patient completes activity. [place] assists only prior to or following the activity. 4-Supervision or Touching Assistance-helper provides verbal cues and/or touching/steadying and/or contact guard assistance as patient completes activity. Assistance may be provided throughout the activity or intermittently. 3-Partial/Moderate Assistance-helper does LESS THAN HALF the effort. [place] lifts, holds or supports trunk or limbs, but provides less than half the effort. 2-Substantial/Maximal Assistance-helper does MORE THAN HALF the effort. [place] lifts or holds trunk or limbs and provides more than half the effort. 9-Uszzzemcl-qlnggc does ALL the effort. Patient does none of the effort to complete the activity. Or, the assistance of 2 or more helpers is required for the patient to complete the activity. If activity was not attempted, code reason: 7-Patient Refused. 9-Not Applicable-not attempted and the patient did not perform the activity before the current illness, exacerbation or injury. 10-Not Attempted due to Environmental Limitations-(lack of equipment, weather restraints, etc.). 88-Not Attempted due to Medical Conditions or Safety Concerns. Sit to Stand (QC): 3 Exercises Seated Therapy Exercises: Ankle pumps, Long arc quads, Glut set Seated Reps: 15 Standing: Sit to Stand Standing Reps: 10 Treatments LE strengthening Assessment Current Status: Fair Progress Seated exercises were performed bilaterally with AAROM on L side. Pt struggles with sit to stands from the recliner. Pt wants to know what exercises he can do on his own as he is frustrated and eager to improve LLE movement. PT Short Term Goals Short Term Goals Time Frame: Sep 18, 2020 Roll Left & Right: 6 Sit to lyin Lying to sitting on side of be: 3 Sit to stand: 3 Chair/yom-st-grqjx transfer: 3 Toilet transfer: 3 Walk 10 feet: 3 Wheel 50ft w/2 turns: 4 Wheel 150 feet: 4 PT Crusher Assembler Goals Retirement Goals PT Crusher Assembler Goals Time Frame: Oct 02, 2020 Roll Left & Right (QC): 6 Sit to Lying (QC): 6 Lying-Sitting on Side/Bed(QC): 6 Sit to Stand (QC): 4 Chair/Xdp-ux-Ighld Xfer(QC): 4 Toilet Transfer (QC): 4 Car Transfer (QC): 4 Does the Patient Walk: No and Walking Goal IS indicated Walk 10 feet (QC): 4 Walk 50ft with 2 Turns (QC): 4 Walk 150 ft (QC): 4 Walking 10ft on Uneven Surface: 4 1 Step (curb) (QC): 3 4 Steps (QC): 3 12 Steps (QC): 88 Picking up an Object (QC): 4 Wheel 50 feet with 2 turns (QC: 6 Wheel 150 feet: 6 PT Plan Problem List Problem List: Activity Tolerance, Functional Strength, Safety, Balance, Gait, Transfer, Bed Mobility, ROM Treatment/Plan Treatment Plan: Continue Plan of Care Treatment Plan: Bed Mobility, Education, Functional Activity Francesca, Functional Strength, Group Therapy, Gait, Safety, Therapeutic Exercise, Transfers Treatment Duration: Sep 25, 2020 Frequency: At least 5 of 7 days/Wk (IRF) Estimated Hrs Per Day: 1.5 hours per day Patient and/or Family Agrees t: Yes Safety Risks/Education Patient Education: Transfer Techniques, Correct Positioning, Safety Issues Teaching Recipient: Patient Teaching Methods: Demonstration, Discussion Response to Teaching: Reinforcement Needed Time/GCodes Time In: 1115 Time Out: 1130 Total Billed Treatment Time: 15 Total Billed Treatment 1 visit EX KRISTINE FAY PT Sep 16, 2020 12:14
--- NOTE | 2020-09-16 12:15 | Speech Therapy Daily Note ---
Speech Daily Progress Note Subjective Date Seen by Provider: Sep 16, 2020 Time Seen by Provider: 00:30 Patient was resting in his chair playing on his I-Pad when I entered his room. Objective Patient completed a series of speech drills with attention to plosives for buccal strengthening at 85% with minimal cues. Assessment Assessment Current Status: Good Progress Treatment Plan Continue Plan of Care Speech Short Term Goals Short Term Goals Short Term Goals 1) The patient will complete memory tasks related to her daily needs at 80% or greater with minimal cues. 2) The patient will complete safety awareness tasks related to her daily needs at 80% or greater with minimal cues. 3) The patient will complete problem solving tasks related to her daily needs at 80% or greater with minimal cues. 4) The patient will complete OME for improving speech intelligibility. Speech Nursing Home Goals Product Marketing Specialist Goals Patient will improve cognitive and speech abilities in order to effectively meet his daily needs with minimal assist. Speech-Plan Patient/Family Goals Patient/Family Goals: Patient plans on returning to his home where he lives with his . Treatment Plan Speech Therapy Treatment Plan: Continue Plan of Care Treatment Duration: Sep 25, 2020 Frequency: 4 times per week (Patient will receive skilled ST 4-5x per week) Estimated Hrs Per Day: .5 hour per day Rehab Potential: Fair Barriers to Learning: Patient's recent CVA, other medical issues Pt/Family Agrees to Plan: Yes Safety Risks/Education Teaching Recipient: Patient Teaching Methods: Demonstration, Discussion Response to Teaching: Verbalize Understanding, Return Demonstration Education Topics Provided: Continued safety with oral intake, compensatory strategies to utilize for oral clearing Time Speech Therapy Time In: 09:45 Speech Therapy Time Out: 10:15 Total Billed Time: 30 Billed Treatment Time 1AN[address] ST Sep 16, 2020 12:15
[2020-09-16 16:02] VITALS: BP 111/58
--- NOTE | 2020-09-16 16:19 | Cardiology Progress Note ---
Cardiology SOAP Progress Note Subjective: No cardiac complaints. Objective: I&O/Vital Signs 09/16/20 09/16/20 09/16/20 09/16/20 06:32 06:38 09:26 12:34 Temp 36.6 Pulse 68 79 72 Resp 20 B/P (MAP) 108/ Pulse Ox 94 O2 Delivery Room Air Room Air 09/16/20 16:02 Temp 36.2 Pulse 63 Resp 16 B/P (MAP) 111/58 (75) Pulse Ox 97 O2 Delivery Room Air 09/16/20 00:00 Intake Total 1090 ml Balance 1090 ml Weight (Pounds): 220 Weight (Ounces): 8.8 Weight (Calculated Kilograms): 100.883076 Constitutional: AAO x 3 Respiratory: chest is bilaterally symmetric, lungs clear to auscultation Cardiovascular: regular rate-rhythm, S1 and S2 Gastrointestional: soft, audible bowel sounds Extremities: normal range of motion, non-tender, normal inspection, no lower extremity edema bilateral Neurologic/Psychiatric: alert, normal mood/affect, oriented x 3 A/P: Assessment/Dx: Recent stroke, No significant carotid disease, No atrial fibrillation on telemetry, Normal echocardiogram Plan: Cryptogenic stroke. Recommend an event monitor on discharge for 30 days. May require long-term monitoring for atrial fibrillation with an implantable loop recorder. We'll defer to outpatient warehouse checker. Thank you for your consultation. Please call me if you have any questions. Salvatore Hansen MD, FACP, FACC, FSCAI, FHRS, CCDS Interventional Cardiology Cardiac Electrophysiology Vascular Medicine and Endovascular Interventions Isamar HANESN MD Sep 16, 2020 16:19
--- NOTE | 2020-09-16 19:18 | NUR ---
BEDSIDE report received from JOSÉ UMAÑA, assume care of pt
--- NOTE | 2020-09-16 19:28 | NUR ---
pt c/o nicotine cravings, notified, orders received for NICOTINE patch will start tomorrow
[2020-09-16] MEDS: LORazepam 0.5 MG (ATIVAN) TABLET PO SCH (20:52)
[2020-09-16] MEDS: MELATONIN 3 MG TABLET PO PRN (20:52)
--- NOTE | 2020-09-16 20:52 | NUR ---
pt took Colace 100mg but refused Senokot & miralax, up in chair playing on computer
[2020-09-17 05:12] VITALS: BP 103/55
[2020-09-17] MEDS: KCL 10 MEQ TAB (MICRO K) PO SCH (06:45)
[2020-09-17] MEDS: THIAMINE 100 MG (VITAMIN B-1) TAB PO SCH (06:45)
[2020-09-17] MEDS: MULTIVIT W/MINERALS TAB (THERAGRAN M) PO SCH (06:45)
--- NOTE | 2020-09-17 08:00 | NUR ---
IV SITE REDDENED AND EDEMATOUS. IV REMOVED. CONT TO MONITOR.
--- NOTE | 2020-09-17 08:58 | Physical Therapy Daily Note ---
PT Daily Note-Current Subjective Pt. agrees to Rx OT PT. States he can tell he has made progress ."I just dont make good connection with that left side but its getting better" Pain Location: No Pain Reported Mental Status Patient Orientation: Normal For Age Transfers SCALE: Activities may be completed with or without assistive devices. 3-Yoeiijyglp-zyxjvwl completes the activity by him/herself with no assistance from a helper. 5-Set-up or Clean-up Assistance-helper sets up or cleans up; patient completes activity. [place] assists only prior to or following the activity. 4-Supervision or Touching Assistance-helper provides verbal cues and/or touching/steadying and/or contact guard assistance as patient completes activity. Assistance may be provided throughout the activity or intermittently. 3-Partial/Moderate Assistance-helper does LESS THAN HALF the effort. [place] lifts, holds or supports trunk or limbs, but provides less than half the effort. 2-Substantial/Maximal Assistance-helper does MORE THAN HALF the effort. [place] lifts or holds trunk or limbs and provides more than half the effort. 8-Vejmgysfx-xnlkcr does ALL the effort. Patient does none of the effort to complete the activity. Or, the assistance of 2 or more helpers is required for the patient to complete the activity. If activity was not attempted, code reason: 7-Patient Refused. 9-Not Applicable-not attempted and the patient did not perform the activity before the current illness, exacerbation or injury. 10-Not Attempted due to Environmental Limitations-(lack of equipment, weather restraints, etc.). 88-Not Attempted due to Medical Conditions or Safety Concerns. Sit to Stand (QC): 3 Chair/Xiq-jr-Wvebr Xfer(QC): 3 sit to stand and stand to sit multiple trials with much education and demonstration for wt shift forward and good balanced positioning. OT assisting and instructing in use and placement of RUE and had and where to focus visually as PT assists and instructs in wt shift and stability of L knee and feet and steps etc Gait Training side steps left and right for TRFs to from w/c and chair and in ot shower, shows progress Wheelchair Training Does the Pt Use a Wheelchair?: Yes Type of Wheelchair: Manual much difficulty requiring mod to max assist in room to from shower Exercises Seated Therapy Exercises: Ankle pumps, Sit to stand, Long arc quads, Hip flexion, Hip abd/add Seated Reps: 15 DF noted on left with emphasis and education on the importance of this for safe gait and stepping etc Treatments PT OT co Rx for showering, doffing and donning clothing with TRFs and stance being PTs focus and OT on UEs and dressing and showering techniques Assessment Current Status: Good Progress PT Short Term Goals Short Term Goals Time Frame: Sep 18, 2020 Roll Left & Right: 6 Sit to lyin Lying to sitting on side of be: 3 Sit to stand: 3 Chair/hhe-mk-qxqzh transfer: 3 Toilet transfer: 3 Walk 10 feet: 3 Wheel 50ft w/2 turns: 4 Wheel 150 feet: 4 PT Marketing Proposal Specialist Goals Jail Goals PT Jail Goals Time Frame: Oct 02, 2020 Roll Left & Right (QC): 6 Sit to Lying (QC): 6 Lying-Sitting on Side/Bed(QC): 6 Sit to Stand (QC): 4 Chair/Mcv-kl-Yhdmq Xfer(QC): 4 Toilet Transfer (QC): 4 Car Transfer (QC): 4 Does the Patient Walk: No and Walking Goal IS indicated Walk 10 feet (QC): 4 Walk 50ft with 2 Turns (QC): 4 Walk 150 ft (QC): 4 Walking 10ft on Uneven Surface: 4 1 Step (curb) (QC): 3 4 Steps (QC): 3 12 Steps (QC): 88 Picking up an Object (QC): 4 Wheel 50 feet with 2 turns (QC: 6 Wheel 150 feet: 6 PT Plan Treatment/Plan Treatment Plan: Continue Plan of Care Treatment Plan: Bed Mobility, Education, Functional Activity Francesca, Functional Strength, Group Therapy, Gait, Safety, Therapeutic Exercise, Transfers Treatment Duration: Sep 25, 2020 Frequency: At least 5 of 7 days/Wk (IRF) Estimated Hrs Per Day: 1.5 hours per day Patient and/or Family Agrees t: Yes Safety Risks/Education Patient Education: Transfer Techniques, Correct Positioning, W/C Management, Disease Process, Safety Issues Teaching Recipient: Patient Teaching Methods: Demonstration, Discussion Response to Teaching: Verbalize Understanding, Return Demonstration, Reinforcement Needed Time/GCodes Time In: 800 Time Out: 900 Total Billed Treatment Time: 60 Total Billed Treatment 1,EX15m,FA25m PT OT co Rx 60 m KYMBERLY SANCHEZ PRN OCCUPATIONAL THERAPIST Sep 17, 2020 08:58
[2020-09-17] MEDS: MAGNESIUM OXIDE (MAG-OX)400 MG TAB PO SCH ×2 (09:13→17:52)
[2020-09-17] MEDS: FOLIC ACID 1 MG TAB PO SCH (09:13)
[2020-09-17] MEDS: SENNA W/DOCUSATE (SENOKOT S) TABLET PO SCH ×2 (09:13→20:26)
[2020-09-17] MEDS: ASPIRIN E.C. 325 MG (ECOTRIN) TABLET PO SCH (09:13)
[2020-09-17] MEDS: amLODIPine 5 MG (NORVASC) TAB PO SCH (09:13)
[2020-09-17] MEDS: ATENOLOL 25 MG (TENORMIN) TAB PO SCH (09:13)
[2020-09-17] MEDS: polyethylene glycoL POWDER 17 GM (MIRALAX) PACK PO SCH ×2 (09:14→20:26)
[2020-09-17] MEDS: NICOTINE 14 MG (NICODERM) PATCH TD SCH (09:14)
--- NOTE | 2020-09-17 09:15 | Occupational Ther Daily Note ---
OT Current Status-Daily Note Subjective Pt seated up in recliner, agreeable to OT tx. ADL-Treatment Therapy Code Descriptions/Definitions Functional [place] Measure: 0=Not Assessed/NA 4=Minimal Assistance 1=Total Assistance 5=Supervision or Setup 2=Maximal Assistance 6=Modified [place] 3=Moderate Assistance 7=Complete IndependenceSCALE: Activities may be completed with or without assistive devices. 8-Qnaojxmtse-lijuesi completes the activity by him/herself with no assistance from a helper. 5-Set-up or Clean-up Assistance-helper sets up or cleans up; patient completes activity. [place] assists only prior to or following the activity. 4-Supervision or Touching Assistance-helper provides verbal cues and/or touching/steadying and/or contact guard assistance as patient completes activity. Assistance may be provided throughout the activity or intermittently. 3-Partial/Moderate Assistance-helper does LESS THAN HALF the effort. [place] lifts, holds or supports trunk or limbs, but provides less than half the effort. 2-Substantial/Maximal Assistance-helper does MORE THAN HALF the effort. [place] lifts or holds trunk or limbs and provides more than half the effort. 6-Cdjkeqvip-cpfimv does ALL the effort. Patient does none of the effort to complete the activity. Or, the assistance of 2 or more helpers is required for the patient to complete the activity. If activity was not attempted, code reason: 7-Patient Refused. 9-Not Applicable-not attempted and the patient did not perform the activity before the current illness, exacerbation or injury. 10-Not Attempted due to Environmental Limitations-(lack of equipment, weather restraints, etc.). 88-Not Attempted due to Medical Conditions or Safety Concerns. Oral Hygiene (QC): 5 (set up at tray table.) Shower/Bathe Self (QC): 1 (Pt able to wash all parts except R arm pit and buttocks. Pt required assist x2 in stand to wash buttocks.) Upper Body Dressing (QC): 3 (Pt required cues to thread LUE into shirt, pt then able to thread head and RUE. Pt required min A with managing shirt down.) Lower Body Dressing (QC): 1 (pt required assistance threading LLE, pt able to lift RLE and place into pants. Assist x2 in maintenance machine repairer order for OT to manage pants up) On/Off Footwear: 1 (total assist to don/doff gripper socks.) Other Treatment [id number] OT/PT cotreat due to the skill of 2 clinicians required which a rehab aid could not perform due to pt's limitations in strength, functional endurance, and mobility. OT focused on ADLs, UE placement, cues for sequencing and safety, while PT focused on LE placement, gross overall movements, and functional mobility/transfers. Pt transferred from recliner to w/c via SPT, then taken into restroom where he completed SPT to PA. Pt completed showering, requiring assistance washing R arm pit and assist x2 to wash buttocks (1 person to assist with stand and 1 to assist with hygiene). Pt transferred back to w/ via SPT and donned clothes. Pt transferred from w/c to recliner via SPT. [id number] OT tx: Pt combed his hair with set up at recliner. Pt able to brush teeth independently once OT provided pt with supplies on tray table. Pt complete x5 reps shoulder shrugs LUE, pt feels like he has a little more movement in LUE on this date. Post OT tx, pt seated in recliner, call light in reach and all needs met. Education OT Patient Education: Correct positioning, Energy conservation, Modified ADL techniques, Progress toward Goal/Update tx plan, Purpose of tx/functional activities, Rehab process, Safety issues Teaching Recipient: Patient Teaching Methods: Discussion Response to Teaching: Verbalize Understanding OT Damage Prevention Coordinator Goals Damage Prevention Coordinator Goals Time Frame: Oct 03, 2020 Eating (QC): 6 Oral Hygiene (QC): 6 Toileting Hygiene (QC): 4 Shower/Bathe Self (QC): 4 Upper Body Dressing (QC): 6 Lower Body Dressing (QC): 4 On/Off Footwear (QC): 4 Additional Goals: 1-Demonstrate ADL Tasks, 2-Verbalize Understanding, 3- ImproveStrength/Francesca 1=Demonstrate adherence to instructed precautions during ADL tasks. 2=Patient will verbalize/demonstrate understanding of assistive devices/modifications for ADL. 3=Patient will improve strength/tolerance for activity to enable patient to perform ADL's. OT Education/Plan Problem List/Assessment Assessment: Decreased Activ Tolerance, Decreased UE Strength, Impaired Funct Balance, Impaired I ADL's, Impaired Self-Care Skills, Restricted Funct UE ROM Discharge Recommendations Plan/Recommendations: Continue POC Treatment Plan/Plan of Care Patient would benefit from OT for education, treatment and training to promote independence in ADL's, mobility, safety and/or upper extremity function for ADL's. Plan of Care: ADL Retraining, Functional Mobility, Group Exercise/Act as Ind, UE Funct Exercise/Act, UE Neuromus Re-Ed/Coord Treatment Duration: Oct 03, 2020 Frequency: At least 5 of 7 days/Wk (IRF) Estimated Hrs Per Day: 1.5 hours per day Agreement: Yes Rehab Potential: Fair Time/GCodes Start Time: 08:00 Stop Time: 09:15 Total Time Billed (hr/min): 75 Billed Treatment Time [id number] OT/PT cotreat (60'), [id number] OT tx 1, ADL 5 WILFREDO CORLEY OT Sep 17, 2020 09:15
[2020-09-17] MEDS: NICOTINE PATCH REMOVAL TP SCH (09:20)
--- NOTE | 2020-09-17 09:33 | PM&R Progress Note ---
Subjective HPI/CC On Admission Date Seen by Provider: Sep 17, 2020 Time Seen by Provider: 09:30 Subjective/Events-last exam 09/17/20: Bowels moved yesterday Incontinent a bit with bowel and bladder so will try to get on bladder emptying schedule a long with bowel regimen Was able to move and lift up his left arm with a lot of effort but was remarkable Pt improved and much better spirits today 09/16/20: Telemetry needs to be maintained until loop recorder is placed Will reach out to Dr. Walker tomorrow Incontinence is an issue so will try to work with him in the urinal positional hernadez to help him In significant denial Behavioral health consult Bowels moved yesterday Catastrophic stroke and his coping mechanism is no longer available with smoking and drinking so that is causing a significant issue 09/15/20: Bowels finally moved today Lifting left leg a bit Tolerating food intake without much dysphasia Psych evaluation will be provided because of anxiety and depression and situational grief reaction due to catastrophic stroke Pt overall is very depressed Labs are okay 09/14/20: Turn Q 2hours Refusing stool softners BM 09/10/20 Colace and Senna taken today 09/13/20: Advancing diet Moved left leg a bit today No function in left arm though Shower today and shave Crushing his meds with pudding since he did choke on thin liquids Advancing diet as tolerated Bowels moved two days ago Pt appears to be very chronically ill Conferred with RN Reviewed therapy notes Checked meds and labs Review of Systems Neurological: Weakness, Incoordination Objective Exam Vital Signs Vital Signs Date Time Temp Pulse Resp B/P (MAP) Pulse Ox O2 Delivery O2 Flow Rate FiO2 09/18/20 05:05 37.0 83 16 156/69 (98) 96 Room Air Capillary Refill : Less Than 3 Seconds General Appearance: No Apparent Distress, WD/WN, Anxious, Chronically ill HEENT: PERRL/EOMI, Normal ENT Inspection, Pharynx Normal Neck: Full Range of Motion, Normal Inspection, Non Tender, Supple, Carotid Bruit Respiratory: Chest Non Tender, Lungs Clear, Normal Breath Sounds, No Accessory Muscle Use, No Respiratory Distress Cardiovascular: Regular Rate, Rhythm, No Edema, No Gallop, No JVD, No Murmur, Normal Peripheral Pulses Gastrointestinal: Normal Bowel Sounds, No Organomegaly, No Pulsatile Mass, Non Tender, Soft Back: Normal Inspection, No CVA Tenderness, No Vertebral Tenderness Extremity: Normal Capillary Refill, Normal Inspection, Normal Range of Motion (except left side weakness), Non Tender, No Calf Tenderness, No Pedal Edema Neurologic/Psychiatric: Alert, Oriented x3, Normal Mood/Affect, mcat instructor II-XII Norm as Tested, Abnormal Gait, Depressed Affect, Facial Droop (left), Motor Weakness (left sided flaccidity) Skin: Normal Color, Warm/Dry Lymphatic: No Adenopathy Results/Procedures Lab Patient resulted labs reviewed. FIM Transfers Therapy Code Descriptions/Definitions Functional [place] Measure: 0=Not Assessed/NA 4=Minimal Assistance 1=Total Assistance 5=Supervision or Setup 2=Maximal Assistance 6=Modified [place] 3=Moderate Assistance 7=Complete IndependenceSCALE: Activities may be completed with or without assistive devices. 9-Njsqmddddd-wdamryb completes the activity by him/herself with no assistance from a helper. 5-Set-up or Clean-up Assistance-helper sets up or cleans up; patient completes activity. [place] assists only prior to or following the activity. 4-Supervision or Touching Assistance-helper provides verbal cues and/or touching/steadying and/or contact guard assistance as patient completes activity. Assistance may be provided throughout the activity or intermittently. 3-Partial/Moderate Assistance-helper does LESS THAN HALF the effort. [place] lifts, holds or supports trunk or limbs, but provides less than half the effort. 2-Substantial/Maximal Assistance-helper does MORE THAN HALF the effort. [place] lifts or holds trunk or limbs and provides more than half the effort. 6-Hqihhmnxb-lxerhb does ALL the effort. Patient does none of the effort to complete the activity. Or, the assistance of 2 or more helpers is required for the patient to complete the activity. If activity was not attempted, code reason: 7-Patient Refused. 9-Not Applicable-not attempted and the patient did not perform the activity before the current illness, exacerbation or injury. 10-Not Attempted due to Environmental Limitations-(lack of equipment, weather restraints, etc.). 88-Not Attempted due to Medical Conditions or Safety Concerns. Roll Left to Right (QC): 3 Sit to Lying (QC): 3 Sit to Stand (QC): 3 Chair/Eab-yx-Pnvci Xfer(QC): 3 Car Transfer (QC): 2 Gait Training Distance: 6'x3 Walk 10 feet (QC): 88 Walk 50 ft with 2 Turns(QC): 88 Walk 150 ft (QC): 88 Walking 10ft/uneven surface-QC: 88 Gait Persons Needed: 2 Gait Assistive Device: Parallel Bars Wheelchair Training Distance: 150' Wheel 50 ft with 2 turns (QC): 4 Wheel 150 ft (QC): 4 Stair Training 1 Step (curb) (QC): 88 4 Steps (QC): 88 12 Steps (QC): 88 Balance Picking up an Object (QC): 88 ADL-Treatment Eating (QC): 5 (set up assistance, pt reports being able to use utensils, bring food to mouth, and eat.) Oral Hygiene (QC): 5 (set up at tray table.) Shower/Bathe Self (QC): 1 (Pt able to wash all parts except R arm pit and buttocks. Pt required assist x2 in stand to wash buttocks.) Upper Body Dressing (QC): 3 (Pt required cues to thread LUE into shirt, pt then able to thread head and RUE. Pt required min A with managing shirt down.) Lower Body Dressing (QC): 1 (pt required assistance threading LLE, pt able to lift RLE and place into pants. Assist x2 in tug boat captain order for OT to manage pants up) On/Off Footwear (QC): 1 (total assist to don/doff gripper socks.) Toileting Hygiene (QC): 1 (assist x2 for hygiene and clothing management) Toilet Transfer (QC): 3 (Mod A SPT from bed to BSC, and Mod A SPT from BSC to w/c.) Assessment/Plan Assessment and Plan Assess & Plan/Chief Complaint Assessment: Catastrophic CVA with left sided weakness Smoker COPD HTN Gout Neuropathy CRI Alcoholism Depression Anxiety Plan: IRF protocol Pain meds Baclofen Home meds Ativan for etoh withdrawal symptoms 09/12/20: Dysphagia screening Monitor for return of function left weakness 09/13/20: Left leg function a bit today Shower today Monitor closely 09/14/20: BM regimen Turn Q 2hours IRF protocol 09/15/20: Monitor BP Fall risk Monitor dysphagia and aspiration risk 09/16/20: Nicotine patch Monitor aspiration 09/17/20: Left arm improving dramatically No pain reported Improved status (1) Acute CVA (cerebrovascular accident) Status: Acute (2) Left-sided weakness Status: Acute (3) Gout (4) Alcoholism Status: Chronic (5) Ulcer of great toe Status: Acute (6) 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
--- NOTE | 2020-09-17 11:13 | Speech Therapy Daily Note ---
Speech Daily Progress Note Subjective Date Seen by Provider: Sep 17, 2020 Time Seen by Provider: 00:30 Patient was sitting up in his recliner following his other therapy. He states he was able to take a shower today. Objective Patient completed a series of dysarthria exercises at 90% with 10% visual/verbal cues. Assessment Assessment Current Status: Good Progress Treatment Plan Continue Plan of Care Speech Short Term Goals Short Term Goals Short Term Goals 1) The patient will complete memory tasks related to her daily needs at 80% or greater with minimal cues. 2) The patient will complete safety awareness tasks related to her daily needs at 80% or greater with minimal cues. 3) The patient will complete problem solving tasks related to her daily needs at 80% or greater with minimal cues. 4) The patient will complete OME for improving speech intelligibility. Speech Correction Goals Supervisor [employer] Goals Patient will improve cognitive and speech abilities in order to effectively meet his daily needs with minimal assist. Speech-Plan Patient/Family Goals Patient/Family Goals: Patient plans on returning to his home upon discharge. Treatment Plan Speech Therapy Treatment Plan: Continue Plan of Care Treatment Duration: Sep 25, 2020 Frequency: 4 times per week (Patient will receive skilled ST 4-5x per week) Estimated Hrs Per Day: .5 hour per day Rehab Potential: Fair Barriers to Learning: Patient's recent CVA, other medical issues Pt/Family Agrees to Plan: Yes Safety Risks/Education Teaching Recipient: Patient Teaching Methods: Demonstration, Discussion Response to Teaching: Verbalize Understanding, Return Demonstration Education Topics Provided: Continued safety within his room Time Speech Therapy Time In: 10:00 Speech Therapy Time Out: 10:30 Total Billed Time: 30 Billed Treatment Time [address] ST Sep 17, 2020 11:13
--- NOTE | 2020-09-17 11:31 | Cardiology Progress Note ---
Objective-Cardiology Exam Last Set of Vital Signs Vital Signs 09/17/20 09/17/20 09/17/20 05:12 08:00 12:27 Temp 36.2 Pulse 83 Resp 18 B/P (MAP) 103/55 (71) Pulse Ox 97 O2 Delivery Room Air Capillary Refill : Less Than 3 Seconds I&O Intake and Output 09/17/20 00:00 Intake Total 1210 ml Balance 1210 ml Intake Oral 1210 ml # Voids 4 # Urine Diapers 6 # Bowel Movements 1 A/P-Cardiology Admission Diagnosis CVA HTN HLP Tobaccoism Assessment/Plan Cryptogenic CVA, recieved tPA, still having left sided weakness. 2D echo done 09/09/2020 revealed grade 1 diastolic dysfunction, EF 50-55%, PA 40-45%, CTA Head and neck showed no KASANDRA, no arrhythmia noted on telemetry so far. Discussed the management plan with the patient, recommend LINq implantation for further monitoring of his cryptogenic stroke. Hypertension, controlled, continue to monitor Hyperlipidemia, maintained on statin Tobaccoism, educated on smoking cessation ETOH use, discussed limiting alcohol intake Clinical Quality Measures DVT/VTE Risk/Contraindication: Risk Factor Score Per Nursin RFS Level Per Nursing on Admit: 4+=Very High DEBORAH FERRARA Sep 17, 2020 11:31
[2020-09-17] MEDS: DOCUSATE SODIUM 10 MG/ML 10 ML UDC (COLACE) NG SCH ×2 (11:51→20:26)
--- NOTE | 2020-09-17 13:00 | NUR ---
PATIENT [facility] AT THIS TIME.
--- NOTE | 2020-09-17 13:30 | NUR ---
DR CAMPBELL HERE THIS A.M. OK TO STOP CIWA. CIWA CONSISTENTLY 0
--- NOTE | 2020-09-17 14:00 | NUR ---
DR FAIRCHILD AND AMADOR NEWBY HERE TO ASSESS PATIENT. NEW ORDER FOR LOOP RECORDER PLACEMENT. PROPER SHEETS FILLED AND FAXED , COMMUNITY EDUCATION COORDINATOR NOTIFIED.
--- NOTE | 2020-09-17 14:06 | Physical Therapy Daily Note ---
PT Daily Note-Current Subjective Pt. up in recliner just having finished zoom Psych consult. Pt. with urine soaked pants and linens under him .Pt. states he is sorry for this but he cant manage a urinal even if he is in a gown. This AUTOMOTIVE PARTS CLERK and nurse asst explain that he should call no matter what the situation for assistance with urinating, not to sit in urine after an accident. Pain Location: No Pain Reported Appearance sitting up in recliner in urine soaked pants and linen under him Transfers SCALE: Activities may be completed with or without assistive devices. 6-Szljpiowtf-izghehq completes the activity by him/herself with no assistance from a helper. 5-Set-up or Clean-up Assistance-helper sets up or cleans up; patient completes activity. [place] assists only prior to or following the activity. 4-Supervision or Touching Assistance-helper provides verbal cues and/or lino shamar/steadying and/or contact guard assistance as patient completes activity. Assistance may be provided throughout the activity or intermittently. 3-Partial/Moderate Assistance-helper does LESS THAN HALF the effort. [place] lifts, holds or supports trunk or limbs, but provides less than half the effort. 2-Substantial/Maximal Assistance-helper does MORE THAN HALF the effort. [place] lifts or holds trunk or limbs and provides more than half the effort. 2-Nvasjozgx-ylwwjd does ALL the effort. Patient does none of the effort to complete the activity. Or, the assistance of 2 or more helpers is required for the patient to complete the activity. If activity was not attempted, code reason: 7-Patient Refused. 9-Not Applicable-not attempted and the patient did not perform the activity before the current illness, exacerbation or injury. 10-Not Attempted due to Environmental Limitations-(lack of equipment, weather restraints, etc.). 88-Not Attempted due to Medical Conditions or Safety Concerns. sit to stand x 3 for clothing change and TRF recliner to bed all mod assist TRFing to left Exercises Supine Ex: Ankle pumps, Rolling, Heel Slides, Hip abd/add Supine Reps: 15 Treatments standing balance for dressing, pt used cleaning cloth to clean self Assessment Current Status: Good Progress PT Short Term Goals Short Term Goals Time Frame: Sep 18, 2020 Roll Left & Right: 6 Sit to lyin Lying to sitting on side of be: 3 Sit to stand: 3 Chair/cwv-lx-oqjiv transfer: 3 Toilet transfer: 3 Walk 10 feet: 3 Wheel 50ft w/2 turns: 4 Wheel 150 feet: 4 PT Prison Goals Prison Goals PT Deli Manager Goals Time Frame: Oct 02, 2020 Roll Left & Right (QC): 6 Sit to Lying (QC): 6 Lying-Sitting on Side/Bed(QC): 6 Sit to Stand (QC): 4 Chair/Zhp-zl-Mwfsl Xfer(QC): 4 Toilet Transfer (QC): 4 Car Transfer (QC): 4 Does the Patient Walk: No and Walking Goal IS indicated Walk 10 feet (QC): 4 Walk 50ft with 2 Turns (QC): 4 Walk 150 ft (QC): 4 Walking 10ft on Uneven Surface: 4 1 Step (curb) (QC): 3 4 Steps (QC): 3 12 Steps (QC): 88 Picking up an Object (QC): 4 Wheel 50 feet with 2 turns (QC: 6 Wheel 150 feet: 6 PT Plan Treatment/Plan Treatment Plan: Continue Plan of Care Treatment Plan: Bed Mobility, Education, Functional Activity Francesca, Functional Strength, Group Therapy, Gait, Safety, Therapeutic Exercise, Transfers Treatment Duration: Sep 25, 2020 Frequency: At least 5 of 7 days/Wk (IRF) Estimated Hrs Per Day: 1.5 hours per day Patient and/or Family Agrees t: Yes Time/GCodes Time In: 1345 Time Out: 1400 Total Billed Treatment Time: 15 Total Billed Treatment 1,FA15m KYMBERLY SANCHEZ AUTOMOTIVE PARTS CLERK Sep 17, 2020 14:06
[2020-09-17] MEDS ORDERED: LIDOCAINE 1% INJ 20 ML 20 ML VIAL ONE (14:15)
--- NOTE | 2020-09-17 14:41 | NUR ---
DR FAIRCHILD AT BEDSIDE TO DO LOOP RECORDER IMPLANTATION WITH ASSISTANCE OF CAMOUFLAGE ASSEMBLER STAFF. CONSENT IS COMPLETED BY CAMOUFLAGE ASSEMBLER.
--- NOTE | 2020-09-17 14:41 | Cardiology Progress Note ---
Subjective Date Seen by Provider: Sep 17, 2020 Time Seen by Provider: 14:40 Subjective/Events-last exam Patient was seen at bedside sitting comfortably denied any chest pain. Dis cussed the possibility of loop implant Review of Systems General: No Chills, No Night Sweats; Fatigue, Malaise; No Appetite, No Other HEENT: No Head Aches, No Visual Changes, No Eye Pain, No Ear Pain, No Dysphasia, No Sinus Congestion, No Post Nasal Drip, No Sore Throat, No Other Pulmonary: No Dyspnea, No Cough, No Pleuritic Chest Pain, No Other Cardiovascular: No: Chest Pain, Palpitations, Orthopnea, Paroxysmal Noc. Dyspnea, Edema, Lt Headedness, Other Objective-Cardiology Exam Last Set of Vital Signs Vital Signs 09/17/20 09/17/20 09/17/20 05:12 08:00 12:27 Temp 36.2 Pulse 83 Resp 18 B/P (MAP) 103/55 (71) Pulse Ox 97 O2 Delivery Room Air Capillary Refill : Less Than 3 Seconds I&O Intake and Output 09/17/20 00:00 Intake Total 1210 ml Balance 1210 ml Intake Oral 1210 ml # Voids 4 # Urine Diapers 6 # Bowel Movements 1 General: Alert, Oriented X3, Cooperative HEENT: Atraumatic, PERRLA Neck: Supple, No JVD, No Thyromegaly Lungs: Clear to Auscultation, Normal Air Movement Heart: Regular Rate, Normal S1, Normal S2, No Murmurs Abdomen: Normal Bowel Sounds, Soft, No Tenderness, No Hepatosplenomegaly, No Masses Extremities: No Clubbing, No Cyanosis, No Edema, Normal Pulses, No Tenderness/Swelling Skin: No Rashes, No Breakdown, No Significant Lesion Neuro: Normal Speech, Other (still having left-sided weakness) Psych/Mental Status: Mental Status NL, Mood NL A/P-Cardiology Admission Diagnosis CVA HTN HLP Tobaccoism Assessment/Plan Cryptogenic CVA, recieved tPA, still having left sided weakness. 2D echo done 09/09/2020 revealed grade 1 diastolic dysfunction, EF 50-55%, PA 40-45%, CTA Head and neck showed no KASANDRA, no arrhythmia noted on telemetry so far. Discussed the management plan with the patient, planning to proceed with loop monitor to rule out underlying arrhythmia as a source for his stroke Hypertension, controlled, continue to monitor Hyperlipidemia, maintained on statin Tobaccoism, educated on smoking cessation ETOH use, discussed limiting alcohol intake Clinical Quality Measures DVT/VTE Risk/Contraindication: Risk Factor Score Per Nursin RFS Level Per Nursing on Admit: 4+=Very High ALEXIA FAIRCHILD MD Sep 17, 2020 2:41 pm
--- NOTE | 2020-09-17 14:51 | Implantation of Loop Monitor ---
Implant of Loop Monitior IMPLANTATION OF LOOP MONITOR REPORT DATE OF PROCEDURE: 09/17/20 PREOP DIAGNOSIS: Cryptogenic stroke POSTOP DIAGNOSIS: Cryptogenic stroke PROCEDURE DETAILS: The patient is a 59 male with cryptogenic stroke suggestive of embolization. Therefore implantable loop recorder was discussed and agreed with the patient. Informed consent was taken. All risks and complications were discussed at length. The patient was draped and prepped in the usual sterile fashion. Local anesthesia was lidocaine, which was given in the substernal area close to the 4th intercostal space. Loop monitor [employer] with serial number [id number] was implanted according to the protocol. Steri-Strips were placed at the end of the procedure. There were no complications and the patient tolerated the procedure well. ANESTHESIA: Local anesthesia with lidocaine. COMPLICATIONS: None CONTRAST/FLUOROSCOPY: None CONCLUSION: Successful implantation of a loop monitor with no complication FINAL DIAGNOSIS: Cryptogenic stroke Hypertension Hyperlipidemia ALEXIA FAIRCHILD MD Sep 17, 2020 2:51 pm
--- NOTE | 2020-09-17 15:00 | NUR ---
COMPLETED IMPLANT RECORDER. GENERAL HARDWARE SALESPERSON RN INSTRUCTED PATIENT . PATIENT IS TO NOT SHOWER FROM THE FRONT FOR 7 DAYS. NO DIRECT WATER TO DRESSING. THIS RN WILL RELAY TO THERAPY. NO FURTHER PRECAUTIONS OF WEIGHTBEARING. PATIENT TOLERATED PROCEDURE WELL AND DENIES ANY QUESTIONS.
--- NOTE | 2020-09-17 15:58 | NUR ---
CM/SS CONCURRENT DOCUMENTATION Visited with patient, then assisted with virtual behavioral health consult set up with ANTHONY/Nadege Valadez. Patient consistently appreciative of any support and assistance.
[2020-09-17 18:24] VITALS: BP 131/69
--- NOTE | 2020-09-17 18:39 | NUR ---
PATIENT INCONTINENT OF URINE. INCONTINENCE CAUSED BY THE INABILITY TO MANEUVER URINAL. PATIENT TRANSFERRED FROM LYING TO SITTING WITH MAX ASSIST X2 STAFF. SIT TO STAND MAX OF 1. PATIENT PIVOTED TO WC. PATIENT WHEELED SELF TO BR, STAFF X 2 SIT TO STAND AT BAR AND ASSIST PATIENT TO TOILET, REINFORCEMENT OF THERAPY TECHNIQUES. PATIENT HAD A LARGE, SOFT BRWON FORMED BM. STAFF TO PERFORM HYGIENE.
[2020-09-17] MEDS: LORazepam 0.5 MG (ATIVAN) TABLET PO SCH (20:27)
[2020-09-18 05:05] VITALS: BP 156/69
[2020-09-18] MEDS: THIAMINE 100 MG (VITAMIN B-1) TAB PO SCH (06:01)
[2020-09-18] MEDS: MULTIVIT W/MINERALS TAB (THERAGRAN M) PO SCH (06:01)
[2020-09-18] MEDS: KCL 10 MEQ TAB (MICRO K) PO SCH (06:01)
[2020-09-18] MEDS: amLODIPine 5 MG (NORVASC) TAB PO SCH (07:51)
[2020-09-18] MEDS: ATENOLOL 25 MG (TENORMIN) TAB PO SCH (07:51)
[2020-09-18] MEDS: DOCUSATE SODIUM 10 MG/ML 10 ML UDC (COLACE) NG SCH ×2 (07:51→21:07)
[2020-09-18] MEDS: polyethylene glycoL POWDER 17 GM (MIRALAX) PACK PO SCH ×2 (07:51→21:07)
[2020-09-18] MEDS: SENNA W/DOCUSATE (SENOKOT S) TABLET PO SCH ×2 (07:51→21:08)
[2020-09-18] MEDS: FOLIC ACID 1 MG TAB PO SCH (07:51)
[2020-09-18] MEDS: ASPIRIN E.C. 325 MG (ECOTRIN) TABLET PO SCH (07:51)
[2020-09-18] MEDS: NICOTINE 14 MG (NICODERM) PATCH TD SCH (07:52)
[2020-09-18] MEDS: MAGNESIUM OXIDE (MAG-OX)400 MG TAB PO SCH ×2 (07:52→17:11)
[2020-09-18] MEDS: NICOTINE PATCH REMOVAL TP SCH (07:52)
--- NOTE | 2020-09-18 09:56 | Physical Therapy Daily Note ---
PT Daily Note-Current Subjective Pt presents supine in bed. Pt is tired and frustrated with his situation so it takes significant motivation and education for pt to agree to PT. Pt reports no pain. Appearance At conclusion of PT treatment pt is assisted into recliner where he remains under supervision of OT. Mental Status Patient Orientation: Person, Place, Time, Eyes Open, Situation Transfers SCALE: Activities may be completed with or without assistive devices. 2-Meqghclwre-uozmlgp completes the activity by him/herself with no assistance from a helper. 5-Set-up or Clean-up Assistance-helper sets up or cleans up; patient completes activity. [place] assists only prior to or following the activity. 4-Supervision or Touching Assistance-helper provides verbal cues and/or touching/steadying and/or contact guard assistance as patient completes activity. Assistance may be provided throughout the activity or intermittently. 3-Partial/Moderate Assistance-helper does LESS THAN HALF the effort. [place] lifts, holds or supports trunk or limbs, but provides less than half the effort. 2-Substantial/Maximal Assistance-helper does MORE THAN HALF the effort. [place] lifts or holds trunk or limbs and provides more than half the effort. 2-Znmapedwh-dcjuos does ALL the effort. Patient does none of the effort to complete the activity. Or, the assistance of 2 or more helpers is required for the patient to complete the activity. If activity was not attempted, code reason: 7-Patient Refused. 9-Not Applicable-not attempted and the patient did not perform the activity before the current illness, exacerbation or injury. 10-Not Attempted due to Environmental Limitations-(lack of equipment, weather restraints, etc.). 88-Not Attempted due to Medical Conditions or Safety Concerns. Lying to Sitting/Side of Bed(Q: 3 Sit to Stand (QC): 3 Gait Training Does the Patient Walk?: Yes Distance: 6'x3 Gait Assistive Device: Parallel Bars Pt needs assistance with weightshifting but not with R knee support and he can step through with left leg. Wheelchair Training Does the Pt Use a Wheelchair?: Yes Wheel 50 ft with 2 turns (QC): 4 Wheel 150 ft (QC): 4 Type of Wheelchair: Manual 150'x2 Exercises Standing balance with RUE manipulation Treatments Gait training and standing balance Assessment Current Status: Fair Progress Pt is improving his speed and fluidity with gait. Pt is fatigued and struggling with controlled decent from stand to sit. PT Short Term Goals Short Term Goals Time Frame: Sep 18, 2020 Roll Left & Right: 6 Sit to lyin Lying to sitting on side of be: 3 Sit to stand: 3 Chair/rpa-xj-ddoyg transfer: 3 Toilet transfer: 3 Walk 10 feet: 3 Wheel 50ft w/2 turns: 4 Wheel 150 feet: 4 PT Science Tutor Goals Longterm Goals PT Longterm Goals Time Frame: Oct 02, 2020 Roll Left & Right (QC): 6 Sit to Lying (QC): 6 Lying-Sitting on Side/Bed(QC): 6 Sit to Stand (QC): 4 Chair/Pah-dd-Phwrf Xfer(QC): 4 Toilet Transfer (QC): 4 Car Transfer (QC): 4 Does the Patient Walk: No and Walking Goal IS indicated Walk 10 feet (QC): 4 Walk 50ft with 2 Turns (QC): 4 Walk 150 ft (QC): 4 Walking 10ft on Uneven Surface: 4 1 Step (curb) (QC): 3 4 Steps (QC): 3 12 Steps (QC): 88 Picking up an Object (QC): 4 Wheel 50 feet with 2 turns (QC: 6 Wheel 150 feet: 6 PT Plan Problem List Problem List: Activity Tolerance, Functional Strength, Safety, Balance, Gait, Transfer, Bed Mobility, ROM Treatment/Plan Treatment Plan: Continue Plan of Care Treatment Plan: Bed Mobility, Education, Functional Activity Francesca, Functional Strength, Group Therapy, Gait, Safety, Therapeutic Exercise, Transfers Treatment Duration: Sep 25, 2020 Frequency: At least 5 of 7 days/Wk (IRF) Estimated Hrs Per Day: 1.5 hours per day Patient and/or Family Agrees t: Yes Safety Risks/Education Patient Education: Gait Training, Transfer Techniques, Correct Positioning, Safety Issues Teaching Recipient: Patient Teaching Methods: Demonstration, Discussion Response to Teaching: Reinforcement Needed Time/GCodes Time In: 0900 Time Out: 1000 Total Billed Treatment Time: 60 Total Billed Treatment 1 visit NM 20' FA 25' GT 15' KRISTINE HAWK PT Sep 18, 2020 09:56
--- NOTE | 2020-09-18 10:25 | PM&R Progress Note ---
Subjective HPI/CC On Admission Date Seen by Provider: Sep 18, 2020 Time Seen by Provider: 10:30 Subjective/Events-last exam 09/18/20: Improved status Gets frustrated easily Has bad days and good days Loop recorder placed so will DC Tely Incontinence noted 09/17/20: Bowels moved yesterday Incontinent a bit with bowel and bladder so will try to get on bladder emptying schedule a long with bowel regimen Was able to move and lift up his left arm with a lot of effort but was remarkable Pt improved and much better spirits today 09/16/20: Telemetry needs to be maintained until loop recorder is placed Will reach out to Dr. Walker tomorrow Incontinence is an issue so will try to work with him in the urinal positional hernadez to help him In significant denial Behavioral health consult Bowels moved yesterday Catastrophic stroke and his coping mechanism is no longer available with smoking and drinking so that is causing a significant issue 09/15/20: Bowels finally moved today Lifting left leg a bit Tolerating food intake without much dysphasia Psych evaluation will be provided because of anxiety and depression and situational grief reaction due to catastrophic stroke Pt overall is very depressed Labs are okay 09/14/20: Turn Q 2hours Refusing stool softners BM 09/10/20 Colace and Senna taken today 09/13/20: Advancing diet Moved left leg a bit today No function in left arm though Shower today and shave Crushing his meds with pudding since he did choke on thin liquids Advancing diet as tolerated Bowels moved two days ago Pt appears to be very chronically ill Conferred with RN Reviewed therapy notes Checked meds and labs Review of Systems General: Fatigue Genitourinary: Incontinence Neurological: Weakness, Incoordination Objective Exam Vital Signs Vital Signs Date Time Temp Pulse Resp B/P (MAP) Pulse Ox O2 Delivery O2 Flow Rate FiO2 09/18/20 18:50 36.3 72 18 129/69 (89) 96 Room Air Capillary Refill : Less Than 3 Seconds General Appearance: No Apparent Distress, WD/WN, Anxious, Chronically ill HEENT: PERRL/EOMI, Normal ENT Inspection, Pharynx Normal Neck: Full Range of Motion, Normal Inspection, Non Tender, Supple, Carotid Bruit Respiratory: Chest Non Tender, Lungs Clear, Normal Breath Sounds, No Accessory Muscle Use, No Respiratory Distress Cardiovascular: Regular Rate, Rhythm, No Edema, No Gallop, No JVD, No Murmur, Normal Peripheral Pulses Gastrointestinal: Normal Bowel Sounds, No Organomegaly, No Pulsatile Mass, Non Tender, Soft Back: Normal Inspection, No CVA Tenderness, No Vertebral Tenderness Extremity: Normal Capillary Refill, Normal Inspection, Normal Range of Motion (except left side weakness), Non Tender, No Calf Tenderness, No Pedal Edema Neurologic/Psychiatric: Alert, Oriented x3, Normal Mood/Affect, environmental services project manager II-XII Norm as Tested, Abnormal Gait, Depressed Affect, Facial Droop (left), Motor Weakness (left sided flaccidity) Skin: Normal Color, Warm/Dry Lymphatic: No Adenopathy Results/Procedures Lab Patient resulted labs reviewed. FIM Transfers Therapy Code Descriptions/Definitions Functional [place] Measure: 0=Not Assessed/NA 4=Minimal Assistance 1=Total Assistance 5=Supervision or Setup 2=Maximal Assistance 6=Modified [place] 3=Moderate Assistance 7=Complete IndependenceSCALE: Activities may be completed with or without assistive devices. 2-Mdynqruybz-amdlxgx completes the activity by him/herself with no assistance from a helper. 5-Set-up or Clean-up Assistance-helper sets up or cleans up; patient completes activity. [place] assists only prior to or following the activity. 4-Supervision or Touching Assistance-helper provides verbal cues and/or touching/steadying and/or contact guard assistance as patient completes activity. Assistance may be provided throughout the activity or intermittently. 3-Partial/Moderate Assistance-helper does LESS THAN HALF the effort. [place] lifts, holds or supports trunk or limbs, but provides less than half the effort. 2-Substantial/Maximal Assistance-helper does MORE THAN HALF the effort. [place] lifts or holds trunk or limbs and provides more than half the effort. 7-Mhrqwbvqa-itfaxi does ALL the effort. Patient does none of the effort to complete the activity. Or, the assistance of 2 or more helpers is required for the patient to complete the activity. If activity was not attempted, code reason: 7-Patient Refused. 9-Not Applicable-not attempted and the patient did not perform the activity before the current illness, exacerbation or injury. 10-Not Attempted due to Environmental Limitations-(lack of equipment, weather restraints, etc.). 88-Not Attempted due to Medical Conditions or Safety Concerns. Roll Left to Right (QC): 3 Sit to Lying (QC): 3 Sit to Stand (QC): 3 Chair/Dfy-xu-Glcyq Xfer(QC): 3 Car Transfer (QC): 2 Gait Training Does the Patient Walk?: Yes Distance: 6'x3 Walk 10 feet (QC): 88 Walk 50 ft with 2 Turns(QC): 88 Walk 150 ft (QC): 88 Walking 10ft/uneven surface-QC: 88 Gait Persons Needed: 2 Gait Assistive Device: Parallel Bars Wheelchair Training Does the Pt Use a Wheelchair?: Yes Distance: 150' Wheel 50 ft with 2 turns (QC): 4 Wheel 150 ft (QC): 4 Type of Wheelchair: Manual Stair Training 1 Step (curb) (QC): 88 4 Steps (QC): 88 12 Steps (QC): 88 Balance Picking up an Object (QC): 88 ADL-Treatment Eating (QC): 5 (set up assistance, pt reports being able to use utensils, bring food to mouth, and eat.) Oral Hygiene (QC): 5 (set up at tray table.) Shower/Bathe Self (QC): 1 (Pt able to wash all parts except R arm pit and buttocks. Pt required assist x2 in stand to wash buttocks.) Upper Body Dressing (QC): 3 (Pt required cues to thread LUE into shirt, pt then able to thread head and RUE. Pt required min A with managing shirt down.) Lower Body Dressing (QC): 1 (pt required assistance threading LLE, pt able to lift RLE and place into pants. Assist x2 in drafter marine order for OT to manage pants up) On/Off Footwear (QC): 1 (total assist to don/doff gripper socks.) Toileting Hygiene (QC): 1 (assist x2 for hygiene and clothing management) Toilet Transfer (QC): 3 (Mod A SPT from bed to BSC, and Mod A SPT from BSC to w/c.) Assessment/Plan Assessment and Plan Assess & Plan/Chief Complaint Assessment: Catastrophic CVA with left sided weakness Smoker COPD HTN Gout Neuropathy CRI Alcoholism Depression Anxiety Plan: IRF protocol Pain meds Baclofen Home meds Ativan for etoh withdrawal symptoms 09/12/20: Dysphagia screening Monitor for return of function left weakness 09/13/20: Left leg function a bit today Shower today Monitor closely 09/14/20: BM regimen Turn Q 2hours IRF protocol 09/15/20: Monitor BP Fall risk Monitor dysphagia and aspiration risk 09/16/20: Nicotine patch Monitor aspiration 09/17/20: Left arm improving dramatically No pain reported Improved status 09/18/20: Improved status Loop recorder DC Tely (1) Acute CVA (cerebrovascular accident) Status: Acute (2) Left-sided weakness Status: Acute (3) Gout (4) Alcoholism Status: Chronic (5) Ulcer of great toe Status: Acute (6) 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
--- NOTE | 2020-09-18 12:19 | Physical Therapy Daily Note ---
PT Daily Note-Current Subjective Pt presents in recliner. Pt agrees to PT. Pt reports no pain. Appearance At conclusion of PT treatment patient remains in recliner where he has access to tray, call button, and all needs have been met. Mental Status Patient Orientation: Person, Place, Time, Eyes Open, Situation Transfers SCALE: Activities may be completed with or without assistive devices. 8-Qiwrurymsa-lvxuygg completes the activity by him/herself with no assistance from a helper. 5-Set-up or Clean-up Assistance-helper sets up or cleans up; patient completes activity. [place] assists only prior to or following the activity. 4-Supervision or Touching Assistance-helper provides verbal cues and/or touching/steadying and/or contact guard assistance as patient completes activity. Assistance may be provided throughout the activity or intermittently. 3-Partial/Moderate Assistance-helper does LESS THAN HALF the effort. [place] lifts, holds or supports trunk or limbs, but provides less than half the effort. 2-Substantial/Maximal Assistance-helper does MORE THAN HALF the effort. [place] lifts or holds trunk or limbs and provides more than half the effort. 1-Cjvatddwv-huxktr does ALL the effort. Patient does none of the effort to complete the activity. Or, the assistance of 2 or more helpers is required for the patient to complete the activity. If activity was not attempted, code reason: 7-Patient Refused. 9-Not Applicable-not attempted and the patient did not perform the activity before the current illness, exacerbation or injury. 10-Not Attempted due to Environmental Limitations-(lack of equipment, weather restraints, etc.). 88-Not Attempted due to Medical Conditions or Safety Concerns. Exercises Supine Ex: Ankle pumps, Heel Slides Supine Reps: 20 (done with chair reclined) Seated Therapy Exercises: Long arc quads, Hip abd/add Seated Reps: 20 Treatments LE strengthening Assessment Current Status: Good Progress Pt is improving his LE strength; LLE needed AAROM for all exercises except ankle pumps were AROM. PT Short Term Goals Short Term Goals Time Frame: Sep 18, 2020 Roll Left & Right: 6 Sit to lyin Lying to sitting on side of be: 3 Sit to stand: 3 Chair/fgo-qz-oeipr transfer: 3 Toilet transfer: 3 Walk 10 feet: 3 Wheel 50ft w/2 turns: 4 Wheel 150 feet: 4 PT Half-Way Goals Half-Way Goals PT Hand Molder Meat Goals Time Frame: Oct 02, 2020 Roll Left & Right (QC): 6 Sit to Lying (QC): 6 Lying-Sitting on Side/Bed(QC): 6 Sit to Stand (QC): 4 Chair/Rqq-sl-Kepcp Xfer(QC): 4 Toilet Transfer (QC): 4 Car Transfer (QC): 4 Does the Patient Walk: No and Walking Goal IS indicated Walk 10 feet (QC): 4 Walk 50ft with 2 Turns (QC): 4 Walk 150 ft (QC): 4 Walking 10ft on Uneven Surface: 4 1 Step (curb) (QC): 3 4 Steps (QC): 3 12 Steps (QC): 88 Picking up an Object (QC): 4 Wheel 50 feet with 2 turns (QC: 6 Wheel 150 feet: 6 PT Plan Problem List Problem List: Activity Tolerance, Functional Strength, Safety, Balance, Gait, Transfer, Bed Mobility, ROM Treatment/Plan Treatment Plan: Continue Plan of Care Treatment Plan: Bed Mobility, Education, Functional Activity Francesca, Functional Strength, Group Therapy, Gait, Safety, Therapeutic Exercise, Transfers Treatment Duration: Sep 25, 2020 Frequency: At least 5 of 7 days/Wk (IRF) Estimated Hrs Per Day: 1.5 hours per day Patient and/or Family Agrees t: Yes Safety Risks/Education Patient Education: Correct Positioning, Disease Process, Safety Issues Teaching Recipient: Patient Teaching Methods: Demonstration, Discussion Response to Teaching: Reinforcement Needed Time/GCodes Time In: 1140 Time Out: 1155 Total Billed Treatment Time: 15 Total Billed Treatment 1 visit EX KRISTINE FAY PT Sep 18, 2020 12:19
--- NOTE | 2020-09-18 13:08 | Occupational Ther Daily Note ---
OT Current Status-Daily Note Subjective Pt states he does not want to participate in therapy, he just got to sleep at 6:30 this morning, and did not sleep well over night. Pt required max encouragement to participate. ADL-Treatment Therapy Code Descriptions/Definitions Functional [place] Measure: 0=Not Assessed/NA 4=Minimal Assistance 1=Total Assistance 5=Supervision or Setup 2=Maximal Assistance 6=Modified [place] 3=Moderate Assistance 7=Complete IndependenceSCALE: Activities may be completed with or without assistive devices. 2-Pkmdbxmadd-ycumjmx completes the activity by him/herself with no assistance f rom a helper. 5-Set-up or Clean-up Assistance-helper sets up or cleans up; patient completes activity. [place] assists only prior to or following the activity. 4-Supervision or Touching Assistance-helper provides verbal cues and/or touching/steadying and/or contact guard assistance as patient completes activity. Assistance may be provided throughout the activity or intermittently. 3-Partial/Moderate Assistance-helper does LESS THAN HALF the effort. [place] lifts, holds or supports trunk or limbs, but provides less than half the effort. 2-Substantial/Maximal Assistance-helper does MORE THAN HALF the effort. [place] lifts or holds trunk or limbs and provides more than half the effort. 3-Kgomjpvnz-homvvu does ALL the effort. Patient does none of the effort to complete the activity. Or, the assistance of 2 or more helpers is required for the patient to complete the activity. If activity was not attempted, code reason: 7-Patient Refused. 9-Not Applicable-not attempted and the patient did not perform the activity before the current illness, exacerbation or injury. 10-Not Attempted due to Environmental Limitations-(lack of equipment, weather restraints, etc.). 88-Not Attempted due to Medical Conditions or Safety Concerns. Oral Hygiene (QC): 5 Other Treatment OT/PT cotreat due to the skill of 2 clinicians required which a vocational rehabilitation counselor could not perform due to pt's limitations in strength, functional endurance, and mobility. OT focused on UE placement, cues for sequencing and safety, while PT focused on LE placement, gross overall movements, and functional mobility/transfers. Pt declined changing brief, stating his had just been changed. Pt transferred supine to sit EOB, then SPT towards R side into w/c. Pt self-propelled w/c to therapy gym using RUE/LE. In order to increase proprioceptive input into LUE, pt stood at parallel bars and completed weight bearing through RUE, OT blocked at pt's elbow. Pt took a seated rest break, then stood at parallel bars to complete standing balance activity, PT focused on standing balance as pt performed reaching activity using RUE with OT. Pt completed reaching in all planes, between each reach, pt's RUE returned to parallel bar to regain balance. Pt then completed ambulation (6'x3), OT assisting with cues for LEs while OT assisted with LUE placement and cues for RUE. Pt reports fatigue with task. Pt taken back to room, transferred into recliner via SPT towards R side. End of PT tx, OT continued with tx. Pt requests to shave using electric razor, pt able to complete about half of task, but required mod assist for thoroughness. Pt then brushed his teeth at tray table with set up assistance. Post OT tx, pt seated in recliner, call light in reach and all needs met. Education OT Patient Education: Correct positioning, Exercise program, Modified ADL techniques, Progress toward Goal/Update tx plan, Purpose of tx/functional activities, Safety issues, Transfer techniques Teaching Recipient: Patient Teaching Methods: Discussion Response to Teaching: Verbalize Understanding OT Long-Term Goals Sales Representative Advertising Goals Time Frame: Oct 03, 2020 Eating (QC): 6 Oral Hygiene (QC): 6 Toileting Hygiene (QC): 4 Shower/Bathe Self (QC): 4 Upper Body Dressing (QC): 6 Lower Body Dressing (QC): 4 On/Off Footwear (QC): 4 Additional Goals: 1-Demonstrate ADL Tasks, 2-Verbalize Understanding, 3- ImproveStrength/Francesca 1=Demonstrate adherence to instructed precautions during ADL tasks. 2=Patient will verbalize/demonstrate understanding of assistive devices/modifications for ADL. 3=Patient will improve strength/tolerance for activity to enable patient to perform ADL's. OT Education/Plan Problem List/Assessment Assessment: Decreased Activ Tolerance, Decreased UE Strength, Impaired Bed Mobility, Impaired Funct Balance, Impaired I ADL's, Impaired Self-Care Skills, Restricted Funct UE ROM Discharge Recommendations Plan/Recommendations: Continue POC Treatment Plan/Plan of Care Patient would benefit from OT for education, treatment and training to promote independence in ADL's, mobility, safety and/or upper extremity function for ADL's. Plan of Care: ADL Retraining, Functional Mobility, Group Exercise/Act as Ind, UE Funct Exercise/Act, UE Neuromus Re-Ed/Coord Treatment Duration: Oct 03, 2020 Frequency: At least 5 of 7 days/Wk (IRF) Estimated Hrs Per Day: 1.5 hours per day Agreement: Yes Rehab Potential: Fair Time/GCodes Start Time: 09:00 Stop Time: 10:15 Total Time Billed (hr/min): 75 Billed Treatment Time OT/PT cotreat x60' [id number], OT tx x15' [id number] 1, FA 4 (60'), ADL (15') WILFREDO CORLEY OT Sep 18, 2020 13:08
--- NOTE | 2020-09-18 13:16 | Behavioral Health Consult ---
Consult- Consult Date Seen by Provider: Sep 17, 2020 Time Seen by Provider: 13:00 Date: 09-17-20 Referral: Dr. Martínez [facility] [id number] CPT Code: 81070 Psychodiagnostic Examination, 1 unit(s) Start Time: 1:00 pm Stop Time: 1:50 pm Chief Complaint: depression Referral: Chava Vu is a 59-year-old, , male referred by Dr. Martínez for a clinical diagnostic assessment. Information for this evaluation was gathered from self-report and clinical observation. Presenting Problem: Chava reported he was at a follow up appt for his wound doctor and then suddenly could not move part of his body. He was told he had a mini stroke, which was very surprising. He reported he felt alright, went home, did not tell his about the stroke, and then later that night had another one and had to go to the hospital. He reported that was a week ago and he has been in the hospital since then. Chava reported he has no mobility on the left side of his body still and is uncertain if he will have more movement as time goes on. He reported he is going to physical therapy because he knows it will help, but it has been hard. He reported he is unsure when he will be able to go home or what the plan it, but is feeling hopeful. Chava reported his mood has been good up until the past day or two and he stated yesterday was a very hard day. He reported he is in a better mood today than yesterday. He reported yesterday he felt that several things just kept adding up and made him feel more depressed. He reported the nurses would change they put the movable toilet in different places and that was very frustrating, his food was not very good, it was a cloudy day, and he was feeling sorry for himself. He denied any significant problems with depression other than yesterday. He reported he is enjoying things when he is able to do them, denied any problems sleeping, and stated that his job has been going as well as it could. He reported some problems worry about his health, bills, and if he will be able to walk and be more independent. He denied any other worry or feeling that his worry was about anything other than his recent health issues. Observations/Mental Status: Chava arrived on time for the appointment and was alone. Overall appearance was appropriate and indicated adequate self-care. Chava appeared to be a fair historian. Observed gait and gross motor movements indicated no clinically significant difficulties. [place] general approach to the evaluation indicated interest. Orientation was intact for person, place, time, and situation. Chava evidenced fair understanding of the reason for the appointment. [place] in-session behavior was cooperative. The predominant mood was calm with affect appropriate to expressed concerns and presenting problem. Immediate attention and concentration was unremarkable clinically during the interview. Memory functioning appeared to be intact. Level of intellectual functioning compared to same age peers was estimated to be in the average range. Thought processes were found to be generally logical, coherent and goal directed. Thought content appeared normal. Psychomotor functioning was within normal limits. Tone of voice was normal and controlled. Expressive speech was marked by fluent speech and language. Eye contact was fair. Insight was fair. Overall, style of interacting during the appointment was appropriate and motivated. Current/Previous Mental Health Treatment: Past psychiatric history was met with current provider about a year ago to address depression. History of self or other harm was denied. Current destructive behavior patterns: none indicated or reported. Family psychiatric history was reported as father by suicide. 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 Family and Social Histories: Chava reported he and his have been since 2000 and do not have any children. He reported he works with kids and did not want to come home to them and his never wanted children. Summary of Assessment Information/Prognosis: Chava is a 59-year-old male. Following current assessment, presenting problem and symptoms appear consistent with a preliminary diagnosis of F43.22 Adjustment disorder with anxiety. Overall, prognosis is estimated to be good. Diagnostic Impressions: F43.22 Adjustment disorder with anxiety Initial Treatment Plan/Recommendations: The recommendations currently include the following: continue to participate in physical therapy, follow the recommendations of the hospital, monitor his mood and if symptoms worsen contact therapist for a follow up appointment. At this time he did not feel he needed therapy and therapist agreed, providing that if things changed in the upcoming weeks he would contact therapist to begin therapy again. Further disposition will be made at that time. Chava verbalized understanding of these recommendations and an intention to comply with the proposed treatment plan and course of treatment. MINI CHUA [facility] Sep 18, 2020 13:16
--- NOTE | 2020-09-18 13:59 | NUR ---
CM/SS PATIENT CARE CONFERENCE Reviewed Summary with patient, left for his review at his leisure. Signed, charted. Patient was in agreement to team decision to continue stay with next review September 24. Patient freely expresses his frustrations about residual deficits left body. He strongly desires to manage toileting, he has not consistently been able to maneuver using a urinal one handed. He is frustrated by having to wait for staff who he reports has not always been timely, and then having to change his clothing for accidents. 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 Visited with spouse Steffany by phone, answered her questions to her satisfaction. BARRIERS TO DISCHARGE PLANNING: Patient's home has 3 steps at all entries, discussed ramp rental with Steffany. Patient may primarily be wheelchair ambulation at discharge, patient's bathroom doors will reportedly not accommodate the chair width. Patient would need to be able to ambulate a few steps from the door into the bathroom for toileting or an alternative plan would be necessary. Recommend family education/training closer to discharge. Narrow recommendations for assistive devices for home performance and safety.
--- NOTE | 2020-09-18 15:20 | Speech Therapy Daily Note ---
Speech Daily Progress Note Subjective Date Seen by Provider: Sep 18, 2020 Time Seen by Provider: 00:30 Patient states he had a rough night with not sleeping much and nursing not answering call light. He also states he had 5 incidents of incontinence. Objective Patient completed a series of Vital Stim with settings of 4.0 on the left buccal area. Assessment Assessment Current Status: Good Progress Treatment Plan Continue Plan of Care Speech Short Term Goals Short Term Goals Short Term Goals 1) The patient will complete memory tasks related to her daily needs at 80% or greater with minimal cues. 2) The patient will complete safety awareness tasks related to her daily needs at 80% or greater with minimal cues. 3) The patient will complete problem solving tasks related to her daily needs at 80% or greater with minimal cues. 4) The patient will complete OME for improving speech intelligibility. Speech Glass Washer And Carrier Goals Glass Washer And Carrier Goals Patient will improve cognitive and speech abilities in order to effectively meet his daily needs with minimal assist. Speech-Plan Patient/Family Goals Patient/Family Goals: Patient plans on returning to his home where he lives with his . Treatment Plan Speech Therapy Treatment Plan: Continue Plan of Care Treatment Duration: Sep 25, 2020 Frequency: 4 times per week (Patient will receive skilled ST 4-5x per week) Estimated Hrs Per Day: .5 hour per day Rehab Potential: Fair Barriers to Learning: Patient's recent CVA, other medical issues Pt/Family Agrees to Plan: Yes Safety Risks/Education Teaching Recipient: Patient Teaching Methods: Demonstration, Discussion Response to Teaching: Verbalize Understanding, Return Demonstration Education Topics Provided: Continued safety of oral intake, communication Time Speech Therapy Time In: 14:00 Speech Therapy Time Out: 14:30 Total Billed Time: 30 Billed Treatment Time [address] Sep 18, 2020 15:20
--- NOTE | 2020-09-18 16:21 | NUR ---
"RD ASSESSMENT PMHx: severe ETOHism; COPD; emphysema; pneumonia; HTN; renal failure; chronic diarrhea; gout PT INTERACTION: Pt was awake and pleasant during nutrition follow-up. Pt states he has been eating well since last assessment. Note avg PO intake 92% x3d, per chart review. Pt states no issues with nausea, vomiting, constipation, or diarrhea since last assessment. Note last BM was 09/18, and pt currently on bowel regimen of colace BID, senna BID, and miralax BID, per chart review. ABNORMAL NUTRITION-RELATED LAB VALUES LOW: Pro 6.2; HIGH: AST 47 Est. kcal needs: 3678-6692 kcal | 20-25 kcal/kg Est. Pro needs: 80-100 g Pro | 0.8-1.0 g Pro/kg PES STATEMENT: Given current appetite and PO intake, no nutrition diagnosis at this time (NO-1.1). INTERVENTION: Continue with current diet order of Regular diet. Will continue to follow and reassess as pt needs, intake, and status change. Anais Larsen, MS RD LD"
[2020-09-18 18:50] VITALS: BP 129/69
[2020-09-18] MEDS: LORazepam 0.5 MG (ATIVAN) TABLET PO SCH (21:07)
[2020-09-18] MEDS: MIRTAZAPINE 15 MG (REMERON) TAB PO SCH (21:08)
[2020-09-19] MEDS: MULTIVIT W/MINERALS TAB (THERAGRAN M) PO SCH (05:44)
[2020-09-19] MEDS: KCL 10 MEQ TAB (MICRO K) PO SCH (05:44)
[2020-09-19] MEDS: THIAMINE 100 MG (VITAMIN B-1) TAB PO SCH (05:44)
--- NOTE | 2020-09-19 06:12 | PM&R Progress Note ---
Subjective HPI/CC On Admission Date Seen by Provider: Sep 19, 2020 Time Seen by Provider: 06:00 Subjective/Events-last exam 09/19/20: Patient a bit down in spirits today No pain No ETOH withdrawal No falls Incontinence noted 09/18/20: Improved status Gets frustrated easily Has bad days and good days Loop recorder placed so will DC Tely Incontinence noted 09/17/20: Bowels moved yesterday Incontinent a bit with bowel and bladder so will try to get on bladder emptying schedule a long with bowel regimen Was able to move and lift up his left arm with a lot of effort but was remarkable Pt improved and much better spirits today 09/16/20: Telemetry needs to be maintained until loop recorder is placed Will reach out to Dr. Walker tomorrow Incontinence is an issue so will try to work with him in the urinal positional hernadez to help him In significant denial Behavioral health consult Bowels moved yesterday Catastrophic stroke and his coping mechanism is no longer available with smoking and drinking so that is causing a significant issue 09/15/20: Bowels finally moved today Lifting left leg a bit Tolerating food intake without much dysphasia Psych evaluation will be provided because of anxiety and depression and situational grief reaction due to catastrophic stroke Pt overall is very depressed Labs are okay 09/14/20: Turn Q 2hours Refusing stool softners BM 09/10/20 Colace and Senna taken today 09/13/20: Advancing diet Moved left leg a bit today No function in left arm though Shower today and shave Crushing his meds with pudding since he did choke on thin liquids Advancing diet as tolerated Bowels moved two days ago Pt appears to be very chronically ill Conferred with RN Reviewed therapy notes Checked meds and labs Review of Systems Neurological: Weakness, Incoordination, Change in speech, Confusion Objective Exam Vital Signs Vital Signs Date Time Temp Pulse Resp B/P (MAP) Pulse Ox O2 Delivery O2 Flow Rate FiO2 09/20/20 08:46 Room Air 09/20/20 06:00 36.8 68 19 127/63 (84) 95 Capillary Refill : Less Than 3 Seconds General Appearance: No Apparent Distress, WD/WN, Anxious, Chronically ill HEENT: PERRL/EOMI, Normal ENT Inspection, Pharynx Normal Neck: Full Range of Motion, Normal Inspection, Non Tender, Supple, Carotid Bruit Respiratory: Chest Non Tender, Lungs Clear, Normal Breath Sounds, No Accessory Muscle Use, No Respiratory Distress Cardiovascular: Regular Rate, Rhythm, No Edema, No Gallop, No JVD, No Murmur, Normal Peripheral Pulses Gastrointestinal: Normal Bowel Sounds, No Organomegaly, No Pulsatile Mass, Non Tender, Soft Back: Normal Inspection, No CVA Tenderness, No Vertebral Tenderness Extremity: Normal Capillary Refill, Normal Inspection, Normal Range of Motion (except left side weakness), Non Tender, No Calf Tenderness, No Pedal Edema Neurologic/Psychiatric: Alert, Oriented x3, Normal Mood/Affect, fiscal accounting clerk II-XII Norm as Tested, Abnormal Gait, Depressed Affect, Facial Droop (left), Motor Weakness (left sided flaccidity) Skin: Normal Color, Warm/Dry Lymphatic: No Adenopathy Results/Procedures Lab Patient resulted labs reviewed. FIM Transfers Therapy Code Descriptions/Definitions Functional [place] Measure: 0=Not Assessed/NA 4=Minimal Assistance 1=Total Assistance 5=Supervision or Setup 2=Maximal Assistance 6=Modified [place] 3=Moderate Assistance 7=Complete IndependenceSCALE: Activities may be completed with or without assistive devices. 3-Elzjcfhbst-bssrncw completes the activity by him/herself with no assistance from a helper. 5-Set-up or Clean-up Assistance-helper sets up or cleans up; patient completes activity. [place] assists only prior to or following the activity. 4-Supervision or Touching Assistance-helper provides verbal cues and/or touching/steadying and/or contact guard assistance as patient completes activity. Assistance may be provided throughout the activity or intermittently. 3-Partial/Moderate Assistance-helper does LESS THAN HALF the effort. [place] lifts, holds or supports trunk or limbs, but provides less than half the effort. 2-Substantial/Maximal Assistance-helper does MORE THAN HALF the effort. [place] lifts or holds trunk or limbs and provides more than half the effort. 6-Vloaukleu-dptogj does ALL the effort. Patient does none of the effort to complete the activity. Or, the assistance of 2 or more helpers is required for the patient to complete the activity. If activity was not attempted, code reason: 7-Patient Refused. 9-Not Applicable-not attempted and the patient did not perform the activity before the current illness, exacerbation or injury. 10-Not Attempted due to Environmental Limitations-(lack of equipment, weather restraints, etc.). 88-Not Attempted due to Medical Conditions or Safety Concerns. Roll Left to Right (QC): 3 Sit to Lying (QC): 3 Sit to Stand (QC): 3 Chair/Rcy-qx-Uwalk Xfer(QC): 3 Car Transfer (QC): 2 Gait Training Does the Patient Walk?: Yes Distance: 6'x3 Walk 10 feet (QC): 88 Walk 50 ft with 2 Turns(QC): 88 Walk 150 ft (QC): 88 Walking 10ft/uneven surface-QC: 88 Gait Persons Needed: 2 Gait Assistive Device: Parallel Bars Wheelchair Training Does the Pt Use a Wheelchair?: Yes Distance: 150' Wheel 50 ft with 2 turns (QC): 4 Wheel 150 ft (QC): 4 Type of Wheelchair: Manual Stair Training 1 Step (curb) (QC): 88 4 Steps (QC): 88 12 Steps (QC): 88 Balance Picking up an Object (QC): 88 ADL-Treatment Eating (QC): 5 (set up assistance, pt reports being able to use utensils, bring food to mouth, and eat.) Oral Hygiene (QC): 5 Shower/Bathe Self (QC): 1 (Pt able to wash all parts except R arm pit and b uttocks. Pt required assist x2 in stand to wash buttocks.) Upper Body Dressing (QC): 3 (Pt required cues to thread LUE into shirt, pt then able to thread head and RUE. Pt required min A with managing shirt down.) Lower Body Dressing (QC): 1 (pt required assistance threading LLE, pt able to lift RLE and place into pants. Assist x2 in tutoring assistant order for OT to manage pants up) On/Off Footwear (QC): 1 (total assist to don/doff gripper socks.) Toileting Hygiene (QC): 1 (assist x2 for hygiene and clothing management) Toilet Transfer (QC): 3 (Mod A SPT from bed to BSC, and Mod A SPT from BSC to w/c.) Assessment/Plan Assessment and Plan Assess & Plan/Chief Complaint Assessment: Catastrophic CVA with left sided weakness Smoker COPD HTN Gout Neuropathy CRI Alcoholism Depression Anxiety Plan: IRF protocol Pain meds Baclofen Home meds Ativan for etoh withdrawal symptoms 09/12/20: Dysphagia screening Monitor for return of function left weakness 09/13/20: Left leg function a bit today Shower today Monitor closely 09/14/20: BM regimen Turn Q 2hours IRF protocol 09/15/20: Monitor BP Fall risk Monitor dysphagia and aspiration risk 09/16/20: Nicotine patch Monitor aspiration 09/17/20: Left arm improving dramatically No pain reported Improved status 09/18/20: Improved status Loop recorder DC Tely 09/19/20: Monitor closely Loop recorder site is less tender now Fall risk incontinence care (1) Acute CVA (cerebrovascular accident) Status: Acute (2) Left-sided weakness Status: Acute (3) Gout (4) Alcoholism Status: Chronic (5) Ulcer of great toe Status: Acute (6) 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
[2020-09-19 06:31] VITALS: BP 138/67
[2020-09-19] MEDS: FOLIC ACID 1 MG TAB PO SCH (08:49)
[2020-09-19] MEDS: SENNA W/DOCUSATE (SENOKOT S) TABLET PO SCH ×2 (08:49→22:29)
[2020-09-19] MEDS: polyethylene glycoL POWDER 17 GM (MIRALAX) PACK PO SCH ×2 (08:49→22:29)
[2020-09-19] MEDS: MAGNESIUM OXIDE (MAG-OX)400 MG TAB PO SCH ×2 (08:49→18:37)
[2020-09-19] MEDS: amLODIPine 5 MG (NORVASC) TAB PO SCH (08:49)
[2020-09-19] MEDS: ATENOLOL 25 MG (TENORMIN) TAB PO SCH (08:49)
[2020-09-19] MEDS: ASPIRIN E.C. 325 MG (ECOTRIN) TABLET PO SCH (08:49)
[2020-09-19] MEDS: DOCUSATE SODIUM 10 MG/ML 10 ML UDC (COLACE) NG SCH ×2 (08:50→22:30)
[2020-09-19] MEDS: NICOTINE 14 MG (NICODERM) PATCH TD SCH (08:50)
[2020-09-19] MEDS: NICOTINE PATCH REMOVAL TP SCH (08:50)
--- NOTE | 2020-09-19 09:54 | Physical Therapy Daily Note ---
PT Daily Note-Current Subjective Pt presents sitting upright in recliner. Pt agrees to PT. Pt reports no pain. Appearance At conclusion of PT treatment pt returns to recliner where he is left under the supervision of OT. Mental Status Patient Orientation: Person, Place, Time, Eyes Open, Situation Transfers SCALE: Activities may be completed with or without assistive devices. 5-Pimmzfmkgd-jzhkobi completes the activity by him/herself with no assistance from a helper. 5-Set-up or Clean-up Assistance-helper sets up or cleans up; patient completes activity. [place] assists only prior to or following the activity. 4-Supervision or Touching Assistance-helper provides verbal cues and/or touching/steadying and/or contact guard assistance as patient completes activit y. Assistance may be provided throughout the activity or intermittently. 3-Partial/Moderate Assistance-helper does LESS THAN HALF the effort. Amanda lifts, holds or supports trunk or limbs, but provides less than half the effort. 2-Substantial/Maximal Assistance-helper does MORE THAN HALF the effort. Amanda lifts or holds trunk or limbs and provides more than half the effort. 5-Qhwchutab-qtvacr does ALL the effort. Patient does none of the effort to complete the activity. Or, the assistance of 2 or more helpers is required for the patient to complete the activity. If activity was not attempted, code reason: 7-Patient Refused. 9-Not Applicable-not attempted and the patient did not perform the activity before the current illness, exacerbation or injury. 10-Not Attempted due to Environmental Limitations-(lack of equipment, weather restraints, etc.). 88-Not Attempted due to Medical Conditions or Safety Concerns. Sit to Stand (QC): 3 Chair/Gql-wn-Tjdbd Xfer(QC): 3 Min assist sit to stand; mod assist chair to chair transfer Gait Training Does the Patient Walk?: Yes Distance: 6'x3 Gait Assistive Device: Parallel Bars Pt ambulates in tennis shoes. Pt is educated on gait sequence and weightshifting; pt reports understanding make things easier. Wheelchair Training Does the Pt Use a Wheelchair?: Yes Wheel 50 ft with 2 turns (QC): 4 Wheel 150 ft (QC): 4 Type of Wheelchair: Manual Pt is improving WC mobility but continues to struggle with tight corners. Exercises Standing: Weight shifts Standing Reps: 20 Standing balance with RUE high fives Treatments Gait training and Standing balance Assessment Current Status: Fair Progress Pt is improving his weightshifting and therefore gait. Pt bearing increased weight in LLE without need of knee blocking. PT Short Term Goals Short Term Goals Time Frame: Sep 18, 2020 Roll Left & Right: 6 Sit to lyin Lying to sitting on side of be: 3 Sit to stand: 3 Chair/ftz-kh-xwtfg transfer: 3 Toilet transfer: 3 Walk 10 feet: 3 Wheel 50ft w/2 turns: 4 Wheel 150 feet: 4 PT French Lecturer Goals French Lecturer Goals PT French Lecturer Goals Time Frame: Oct 02, 2020 Roll Left & Right (QC): 6 Sit to Lying (QC): 6 Lying-Sitting on Side/Bed(QC): 6 Sit to Stand (QC): 4 Chair/Rog-uo-Lixea Xfer(QC): 4 Toilet Transfer (QC): 4 Car Transfer (QC): 4 Does the Patient Walk: No and Walking Goal IS indicated Walk 10 feet (QC): 4 Walk 50ft with 2 Turns (QC): 4 Walk 150 ft (QC): 4 Walking 10ft on Uneven Surface: 4 1 Step (curb) (QC): 3 4 Steps (QC): 3 12 Steps (QC): 88 Picking up an Object (QC): 4 Wheel 50 feet with 2 turns (QC: 6 Wheel 150 feet: 6 PT Plan Problem List Problem List: Activity Tolerance, Functional Strength, Safety, Balance, Gait, Transfer, Bed Mobility, ROM Treatment/Plan Treatment Plan: Continue Plan of Care Treatment Plan: Bed Mobility, Education, Functional Activity Francesca, Functional Strength, Group Therapy, Gait, Safety, Therapeutic Exercise, Transfers Treatment Duration: Sep 25, 2020 Frequency: At least 5 of 7 days/Wk (IRF) Estimated Hrs Per Day: 1.5 hours per day Patient and/or Family Agrees t: Yes Safety Risks/Education Patient Education: Gait Training, Transfer Techniques, Correct Positioning, W/C Management, Safety Issues Teaching Recipient: Patient Teaching Methods: Demonstration, Discussion Response to Teaching: Reinforcement Needed Time/GCodes Time In: 0900 Time Out: 1000 Total Billed Treatment Time: 60 Total Billed Treatment 1 visit FA 40' NM 20' Co-treated with OT due to patient's limitations in strength, mobility, transfers and coordination of UEs and LEs. PT focused on transfers and standing balance while OT assisted with UE manipulation. KRISTINE HAWK PT Sep 19, 2020 09:54
--- NOTE | 2020-09-19 10:17 | Occupational Ther Daily Note ---
OT Current Status-Daily Note Subjective Pt seated in recliner, agreeable to OT tx. Mental Status/Objective Patient Orientation: Person, Place, Time, Situation ADL-Treatment Therapy Code Descriptions/Definitions Functional [place] Measure: 0=Not Assessed/NA 4=Minimal Assistance 1=Total Assistance 5=Supervision or Setup 2=Maximal Assistance 6=Modified [place] 3=Moderate Assistance 7=Complete IndependenceSCALE: Activities may be completed with or without assistive devices. 1-Eapunwlnfd-ukngsyv completes the activity by him/herself with no assistance from a helper. 5-Set-up or Clean-up Assistance-helper sets up or cleans up; patient completes activity. [place] assists only prior to or following the activity. 4-Supervision or Touching Assistance-helper provides verbal cues and/or touching/steadying and/or contact guard assistance as patient completes activity. Assistance may be provided throughout the activity or intermittently. 3-Partial/Moderate Assistance-helper does LESS THAN HALF the effort. [place] lifts, holds or supports trunk or limbs, but provides less than half the effort. 2-Substantial/Maximal Assistance-helper does MORE THAN HALF the effort. [place] lifts or holds trunk or limbs and provides more than half the effort. 7-Cxmvcekrl-slatyc does ALL the effort. Patient does none of the effort to complete the activity. Or, the assistance of 2 or more helpers is required for the patient to complete the activity. If activity was not attempted, code reason: 7-Patient Refused. 9-Not Applicable-not attempted and the patient did not perform the activity before the current illness, exacerbation or injury. 10-Not Attempted due to Environmental Limitations-(lack of equipment, weather restraints, etc.). 88-Not Attempted due to Medical Conditions or Safety Concerns. Other Treatment OT/PT cotreat due to the skill of 2 clinicians required which a cook chill technician could not perform due to pt's limitations in strength, functional endurance, and mobility. OT focused on UE placement, cues for sequencing and safety, while PT focused on LE placement, gross overall movements, and functional mobility/transfers. Pt transferred supine to sit EOB, then SPT towards R side into w/c. Pt self-propelled w/c to therapy gym using RUE/LE. In order to increase proprioceptive input into LUE, pt stood at parallel bars and completed weight bearing through RUE, OT blocked at pt's elbow. Pt took a seated rest break, then stood at parallel bars to complete standing balance activity, PT focused on standing balance as pt performed reaching activity using RUE with OT. Pt completed reaching in all planes, between each reach, pt's RUE returned to parallel bar to regain balance. Pt then completed ambulation (6'x3), OT assisting with cues for LEs while OT assisted with LUE placement and cues for RUE. Pt taken back to room in w/c, transferred back to recliner. End of cotreat, OT remained in room to continue tx. Pt completed x10 reps bilateral shoulder shrugs with rest breaks as needed. Pt reports frustrations with LUE progress. Pt attempted elbow flex/extension in gravity eliminated plane, no muscle activity palpated. OT performed PROM all planes LUE, x15 reps each. Post OT Tx, pt seated in recliner, call light in reach and all needs met Education OT Patient Education: Correct positioning, Energy conservation, Modified ADL techniques, Progress toward Goal/Update tx plan, Purpose of tx/functional activities, Transfer techniques Teaching Recipient: Patient Teaching Methods: Discussion Response to Teaching: Verbalize Understanding OT Custodial Goals Custodial Goals Time Frame: Oct 03, 2020 Eating (QC): 6 Oral Hygiene (QC): 6 Toileting Hygiene (QC): 4 Shower/Bathe Self (QC): 4 Upper Body Dressing (QC): 6 Lower Body Dressing (QC): 4 On/Off Footwear (QC): 4 Additional Goals: 1-Demonstrate ADL Tasks, 2-Verbalize Understanding, 3- ImproveStrength/Francesca 1=Demonstrate adherence to instructed precautions during ADL tasks. 2=Patient will verbalize/demonstrate understanding of assistive devices/modifications for ADL. 3=Patient will improve strength/tolerance for activity to enable patient to perform ADL's. OT Education/Plan Problem List/Assessment Assessment: Decreased Activ Tolerance, Decreased UE Strength, Impaired Funct Balance, Impaired I ADL's, Impaired Self-Care Skills, Restricted Funct UE ROM Discharge Recommendations Plan/Recommendations: Continue POC Treatment Plan/Plan of Care Patient would benefit from OT for education, treatment and training to promote independence in ADL's, mobility, safety and/or upper extremity function for ADL's. Plan of Care: ADL Retraining, Functional Mobility, Group Exercise/Act as Ind, UE Funct Exercise/Act, UE Neuromus Re-Ed/Coord Treatment Duration: Oct 03, 2020 Frequency: At least 5 of 7 days/Wk (IRF) Estimated Hrs Per Day: 1.5 hours per day Agreement: Yes Rehab Potential: Fair Time/GCodes Start Time: 09:00 Stop Time: 10:15 Total Time Billed (hr/min): 75 Billed Treatment Time [id number] cotreat with PT, [id number] OT tx WILFREDO CORLEY OT Sep 19, 2020 10:17
--- NOTE | 2020-09-19 11:55 | NUR ---
PATIENT TRANSFERRED WITH ASSIST FROM THIS RN TO . PATIENT COMPLETED >50% OF THE EFFORT. CROSSOVER TECHNIQUES FROM THERAPY REINFORCED REGARDING EFFECTED LIMB AND BAR POSITIONING IN BR. STAFF MANEUVERED CLOTHING AND HYGIENE WHILE PATIENT STOOD, GRASPING BAR. PATIENT TRANSFERRED BACK TO , THEN TO CHAIR. PERFORMING >50%OF EFFORT. PATIENT WAS CONTINENT OF BOWEL AND BLADDER IN TOILET. SOFT, SMALL BM. PATIENT REPORTS INCREASED CONTROL OVER BM. WORKING WITH THERAPY AT THE TIME. DENIES NEEDS OR C/O. CONT TO MONITOR. Addendum: 09/19/20 at 1742 by ANAHY ZARCO RN AFFECTED LIMB
--- NOTE | 2020-09-19 12:06 | Occupational Ther Daily Note ---
OT Current Status-Daily Note Subjective Pt seated in recliner, agreeable to OT tx. Mental Status/Objective Patient Orientation: Person, Place, Time, Situation ADL-Treatment Therapy Code Descriptions/Definitions Functional [place] Measure: 0=Not Assessed/NA 4=Minimal Assistance 1=Total Assistance 5=Supervision or Setup 2=Maximal Assistance 6=Modified [place] 3=Moderate Assistance 7=Complete IndependenceSCALE: Activities may be completed with or without assistive devices. 5-Ejptjjbgsm-klxwmxh completes the activity by him/herself with no assistance from a helper. 5-Set-up or Clean-up Assistance-helper sets up or cleans up; patient completes activity. [place] assists only prior to or following the activity. 4-Supervision or Touching Assistance-helper provides verbal cues and/or touching/steadying and/or contact guard assistance as patient completes activity. Assistance may be provided throughout the activity or intermittently. 3-Partial/Moderate Assistance-helper does LESS THAN HALF the effort. [place] lifts, holds or supports trunk or limbs, but provides less than half the effort. 2-Substantial/Maximal Assistance-helper does MORE THAN HALF the effort. [place] lifts or holds trunk or limbs and provides more than half the effort. 0-Gqmzjbiom-jcipkd does ALL the effort. Patient does none of the effort to complete the activity. Or, the assistance of 2 or more helpers is required for the patient to complete the activity. If activity was not attempted, code reason: 7-Patient Refused. 9-Not Applicable-not attempted and the patient did not perform the activity before the current illness, exacerbation or injury. 10-Not Attempted due to Environmental Limitations-(lack of equipment, weather restraints, etc.). 88-Not Attempted due to Medical Conditions or Safety Concerns. On/Off Footwear: 2 (Max A) Other Treatment Pt seated in recliner, OT educated pt on AE for footwear, including sock aide and dressing stick. Pt able to push off shoe after OT unties them, and then able to push off sock, both on R foot only. OT educated pt on using a sock aide to don R sock, assisting pt with donning sock onto aide. OT handed pt sock aide, pt able to get toes into sock aide but had difficulty pulling sock on, OT assisted pt with pulling sock onto R foot, and OT donned R shoe for pt. Pt verbalized understanding about AE, but indicates he doesn't know how they are going to work for him. OT encouraged pt that he will continue to practice techniques with OT in order to find a technique that works for him, he verbalized understanding. Post OT tx, pt seated in recliner, call light in reach and all needs met. Education OT Patient Education: Correct positioning, Modified ADL techniques, Progress toward Goal/Update tx plan, Purpose of tx/functional activities, Use of adapted equipment Teaching Recipient: Patient Teaching Methods: Demonstration, Discussion Response to Teaching: Verbalize Understanding, Reinforcement Needed OT Assisted Goals Assisted Goals Time Frame: Oct 03, 2020 Eating (QC): 6 Oral Hygiene (QC): 6 Toileting Hygiene (QC): 4 Shower/Bathe Self (QC): 4 Upper Body Dressing (QC): 6 Lower Body Dressing (QC): 4 On/Off Footwear (QC): 4 Additional Goals: 1-Demonstrate ADL Tasks, 2-Verbalize Understanding, 3- ImproveStrength/Francesca 1=Demonstrate adherence to instructed precautions during ADL tasks. 2=Patient will verbalize/demonstrate understanding of assistive devices /modifications for ADL. 3=Patient will improve strength/tolerance for activity to enable patient to perform ADL's. OT Education/Plan Problem List/Assessment Assessment: Decreased Activ Tolerance, Decreased UE Strength, Impaired I ADL's, Impaired Self-Care Skills Discharge Recommendations Plan/Recommendations: Continue POC Treatment Plan/Plan of Care Patient would benefit from OT for education, treatment and training to promote independence in ADL's, mobility, safety and/or upper extremity function for ADL's. Plan of Care: ADL Retraining, Functional Mobility, Group Exercise/Act as Ind, UE Funct Exercise/Act, UE Neuromus Re-Ed/Coord Treatment Duration: Oct 03, 2020 Frequency: At least 5 of 7 days/Wk (IRF) Estimated Hrs Per Day: 1.5 hours per day Agreement: Yes Rehab Potential: Fair Time/GCodes Start Time: 11:45 Stop Time: 12:00 Total Time Billed (hr/min): 15 Billed Treatment Time 1, ADL WILFREDO CORLEY OT Sep 19, 2020 12:06
--- NOTE | 2020-09-19 12:27 | Physical Therapy Daily Note ---
PT Daily Note-Current Subjective Pt presents sitting upright in recliner. Pt agrees to PT. Pt reports no pain. Appearance At conclusion of PT treatment pt returns to recliner and has access to [facility], [employer] button, and all needs have been met. Mental Status Patient Orientation: Person, Place, Time, Eyes Open, Situation Transfers SCALE: Activities may be completed with or without assistive devices. 4-Aagsumumnf-cdurqaq completes the activity by him/herself with no assistance from a helper. 5-Set-up or Clean-up Assistance-helper sets up or cleans up; patient completes activity. [place] assists only prior to or following the activity. 4-Supervision or Touching Assistance-helper provides verbal cues and/or touching/steadying and/or contact guard assistance as patient completes activity. Assistance may be provided throughout the activity or intermittently. 3-Partial/Moderate Assistance-helper does LESS THAN HALF the effort. [place] lifts, holds or supports trunk or limbs, but provides less than half the effort. 2-Substantial/Maximal Assistance-helper does MORE THAN HALF the effort. [place] lifts or holds trunk or limbs and provides more than half the effort. 1-Ekixcpddi-jdpjhh does ALL the effort. Patient does none of the effort to complete the activity. Or, the assistance of 2 or more helpers is required for the patient to complete the activity. If activity was not attempted, code reason: 7-Patient Refused. 9-Not Applicable-not attempted and the patient did not perform the activity before the current illness, exacerbation or injury. 10-Not Attempted due to Environmental Limitations-(lack of equipment, weather restraints, etc.). 88-Not Attempted due to Medical Conditions or Safety Concerns. Sit to Stand (QC): 3 Chair/Mkc-is-Twopm Xfer(QC): 3 stand pivot transfer to chair and back x5 Exercises Seated Therapy Exercises: Ankle pumps, Long arc quads, Hip abd/add Seated Reps: 10 Seated ankle pumps and LAQs were AAROM on LLE Treatments transfer training Assessment Current Status: Good Progress Pt is improving his ability to transfer chair to chair; pt understands the mechanics of why it is easier for him to his strong side. PT Short Term Goals Short Term Goals Time Frame: Sep 18, 2020 Roll Left & Right: 6 Sit to lyin Lying to sitting on side of be: 3 Sit to stand: 3 Chair/yoj-pb-bnsda transfer: 3 Toilet transfer: 3 Walk 10 feet: 3 Wheel 50ft w/2 turns: 4 Wheel 150 feet: 4 PT Pepper Picker Goals Pepper Picker Goals PT Jail Goals Time Frame: Oct 02, 2020 Roll Left & Right (QC): 6 Sit to Lying (QC): 6 Lying-Sitting on Side/Bed(QC): 6 Sit to Stand (QC): 4 Chair/Pju-qy-Himcd Xfer(QC): 4 Toilet Transfer (QC): 4 Car Transfer (QC): 4 Does the Patient Walk: No and Walking Goal IS indicated Walk 10 feet (QC): 4 Walk 50ft with 2 Turns (QC): 4 Walk 150 ft (QC): 4 Walking 10ft on Uneven Surface: 4 1 Step (curb) (QC): 3 4 Steps (QC): 3 12 Steps (QC): 88 Picking up an Object (QC): 4 Wheel 50 feet with 2 turns (QC: 6 Wheel 150 feet: 6 PT Plan Problem List Problem List: Activity Tolerance, Functional Strength, Safety, Balance, Gait, Transfer, Bed Mobility, ROM Treatment/Plan Treatment Plan: Continue Plan of Care Treatment Plan: Bed Mobility, Education, Functional Activity Frnacesca, Functional Strength, Group Therapy, Gait, Safety, Therapeutic Exercise, Transfers Treatment Duration: Sep 25, 2020 Frequency: At least 5 of 7 days/Wk (IRF) Estimated Hrs Per Day: 1.5 hours per day Patient and/or Family Agrees t: Yes Safety Risks/Education Patient Education: Transfer Techniques, Correct Positioning, Safety Issues Teaching Recipient: Patient Teaching Methods: Demonstration, Discussion Response to Teaching: Reinforcement Needed Time/GCodes Time In: 1200 Time Out: 1230 Total Billed Treatment 1 visit FA 30' KRISTINE HAWK PT Sep 19, 2020 12:27
--- NOTE | 2020-09-19 14:32 | Cardiology Progress Note ---
Subjective Date Seen by Provider: Sep 19, 2020 Time Seen by Provider: 14:31 Subjective/Events-last exam Patient was seen at bedside, sitting comfortably, no new complaint Review of Systems General: No Chills, No Night Sweats, No Fatigue, No Malaise, No Appetite, No Other HEENT: No Head Aches, No Visual Changes, No Eye Pain, No Ear Pain, No Dysphasia, No Sinus Congestion, No Post Nasal Drip, No Sore Throat, No Other Pulmonary: No Dyspnea, No Cough, No Pleuritic Chest Pain, No Other Cardiovascular: No: Chest Pain, Palpitations, Orthopnea, Paroxysmal Noc. Dyspnea, Edema, Lt Headedness, Other Objective-Cardiology Exam Last Set of Vital Signs Vital Signs 09/19/20 09/19/20 06:31 08:53 Temp 36.9 Pulse 82 Resp 18 B/P (MAP) 138/67 (90) Pulse Ox 98 O2 Delivery Room Air Capillary Refill : Less Than 3 Seconds I&O Intake and Output 09/19/20 00:00 Intake Total 1320 ml Balance 1320 ml Intake Oral 1320 ml # Voids 13 # Urine Diapers 3 # Bowel Movements 2 General: Alert, Oriented X3, Cooperative HEENT: Atraumatic, PERRLA Neck: Supple, No JVD, No Thyromegaly Lungs: Clear to Auscultation, Normal Air Movement Heart: Regular Rate, Normal S1, Normal S2, No Murmurs Abdomen: Normal Bowel Sounds, Soft, No Tenderness, No Hepatosplenomegaly, No Masses Extremities: No Clubbing, No Cyanosis, No Edema, Normal Pulses, No Tenderness/Swelling Skin: No Rashes, No Breakdown, No Significant Lesion Neuro: Normal Speech, Other (still having left-sided weakness) Psych/Mental Status: Mental Status NL, Mood NL A/P-Cardiology Admission Diagnosis CVA HTN HLP Tobaccoism Assessment/Plan Cryptogenic CVA, recieved tPA, still having left sided weakness. 2D echo done 09/09/2020 revealed grade 1 diastolic dysfunction, EF 50-55%, PA 40-45%, CTA Head and neck showed no KASANDRA, status post loop monitor implant, doing well. Continue to monitor Hypertension, controlled, continue to monitor Hyperlipidemia, maintained on statin Tobaccoism, educated on smoking cessation ETOH use, discussed limiting alcohol intake Clinical Quality Measures DVT/VTE Risk/Contraindication: Risk Factor Score Per Nursin RFS Level Per Nursing on Admit: 4+=Very High ALEXIA FAIRCHILD MD Sep 19, 2020 14:32
[2020-09-19 16:30] VITALS: BP 111/73
--- NOTE | 2020-09-19 19:08 | NUR ---
Bedside report received from ANAHY UMAÑA, assume care of pt
[2020-09-19] MEDS: MIRTAZAPINE 15 MG (REMERON) TAB PO SCH (22:27)
[2020-09-19] MEDS: LORazepam 0.5 MG (ATIVAN) TABLET PO SCH (22:27)
--- NOTE | 2020-09-19 22:27 | NUR ---
pt refused Za, davy & Teja, remains up in the chair, is up with with max assist
--- NOTE | 2020-09-19 22:53 | NUR ---
back to bed with 2 people assist
[2020-09-20 06:00] VITALS: BP 127/63
[2020-09-20] MEDS: THIAMINE 100 MG (VITAMIN B-1) TAB PO SCH (06:42)
[2020-09-20] MEDS: MULTIVIT W/MINERALS TAB (THERAGRAN M) PO SCH (06:42)
[2020-09-20] MEDS: KCL 10 MEQ TAB (MICRO K) PO SCH (06:42)
--- NOTE | 2020-09-20 09:25 | Physical Therapy Daily Note ---
PT Daily Note-Current Subjective "Oh I got so worn out yesterday I didnt think I'd have to do anything today." Pt then expresses that he is very frustrated with his lack of consistency of his recovery and his inability to urinate and stay dry as he cannot manage the urinal with one hand. This EMERGENCY CARE TECH explained the course of CVA rehab is slow and ups and downs expected trying to encourage pt Pain Location: No Pain Reported Transfers SCALE: Activities may be completed with or without assistive devices. 9-Ompjplbvqb-juzvzkk completes the activity by him/herself with no assistance from a helper. 5-Set-up or Clean-up Assistance-helper sets up or cleans up; patient completes activity. [place] assists only prior to or following the activity. 4-Supervision or Touching Assistance-helper provides verbal cues and/or touching/steadying and/or contact guard assistance as patient completes activity. Assistance may be provided throughout the activity or intermittently. 3-Partial/Moderate Assistance-helper does LESS THAN HALF the effort. [place] lifts, holds or supports trunk or limbs, but provides less than half the effort. 2-Substantial/Maximal Assistance-helper does MORE THAN HALF the effort. [place] lifts or holds trunk or limbs and provides more than half the effort. 9-Xglkjwlup-kriptr does ALL the effort. Patient does none of the effort to complete the activity. Or, the assistance of 2 or more helpers is required for the patient to complete the activity. If activity was not attempted, code reason: 7-Patient Refused. 9-Not Applicable-not attempted and the patient did not perform the activity before the current illness, exacerbation or injury. 10-Not Attempted due to Environmental Limitations-(lack of equipment, weather restraints, etc.). 88-Not Attempted due to Medical Conditions or Safety Concerns. sit to stands x 6 all mod assist and stability for R knee ext and broader ANILA. Seat of recliner low, and was brought up a few inches with pillow and folded thick blankets, helping with sit to stand to some degree Exercises Seated Therapy Exercises: Ankle pumps, Sit to stand, Long arc quads, Hip flexion, Hip abd/add Seated Reps: 15 Standing: Side steps Standing Reps: 5 Treatments pt. in urine, sit to stand multiple times to clean with w/c in front to hang on to with right hand, mod plus assist each trial, wt shift left to right and left knee ext. Assessment Current Status: Good Progress frustrated today, distracted by this and did not participate as well PT Short Term Goals Short Term Goals Time Frame: Sep 18, 2020 Roll Left & Right: 6 Sit to lyin Lying to sitting on side of be: 3 Sit to stand: 3 Chair/rho-bj-kbqeq transfer: 3 Toilet transfer: 3 Walk 10 feet: 3 Wheel 50ft w/2 turns: 4 Wheel 150 feet: 4 PT Nursing Home Goals Nursing Home Goals PT Nursing Home Goals Time Frame: Oct 02, 2020 Roll Left & Right (QC): 6 Sit to Lying (QC): 6 Lying-Sitting on Side/Bed(QC): 6 Sit to Stand (QC): 4 Chair/Vqd-sd-Nwvbi Xfer(QC): 4 Toilet Transfer (QC): 4 Car Transfer (QC): 4 Does the Patient Walk: No and Walking Goal IS indicated Walk 10 feet (QC): 4 Walk 50ft with 2 Turns (QC): 4 Walk 150 ft (QC): 4 Walking 10ft on Uneven Surface: 4 1 Step (curb) (QC): 3 4 Steps (QC): 3 12 Steps (QC): 88 Picking up an Object (QC): 4 Wheel 50 feet with 2 turns (QC: 6 Wheel 150 feet: 6 PT Plan Treatment/Plan Treatment Plan: Continue Plan of Care Treatment Plan: Bed Mobility, Education, Functional Activity Francesca, Functional Strength, Group Therapy, Gait, Safety, Therapeutic Exercise, Transfers Treatment Duration: Sep 25, 2020 Frequency: At least 5 of 7 days/Wk (IRF) Estimated Hrs Per Day: 1.5 hours per day Patient and/or Family Agrees t: Yes Safety Risks/Education Patient Education: Transfer Techniques, Correct Positioning, Disease Process, Safety Issues Time/GCodes Time In: 825 Time Out: 855 Total Billed Treatment Time: 30 Total Billed Treatment 1,FA15m,EX15m KYMBERLY SANCHEZ EMERGENCY CARE TECH Sep 20, 2020 09:25
[2020-09-20] MEDS: ATENOLOL 25 MG (TENORMIN) TAB PO SCH (09:57)
[2020-09-20] MEDS: NICOTINE PATCH REMOVAL TP SCH (09:57)
[2020-09-20] MEDS: amLODIPine 5 MG (NORVASC) TAB PO SCH (09:57)
[2020-09-20] MEDS: FOLIC ACID 1 MG TAB PO SCH (09:57)
[2020-09-20] MEDS: ASPIRIN E.C. 325 MG (ECOTRIN) TABLET PO SCH (09:57)
[2020-09-20] MEDS: NICOTINE 14 MG (NICODERM) PATCH TD SCH (09:58)
[2020-09-20] MEDS: DOCUSATE SODIUM 10 MG/ML 10 ML UDC (COLACE) NG SCH ×2 (10:03→19:26)
[2020-09-20] MEDS: SENNA W/DOCUSATE (SENOKOT S) TABLET PO SCH ×2 (10:03→19:27)
[2020-09-20] MEDS: polyethylene glycoL POWDER 17 GM (MIRALAX) PACK PO SCH ×2 (10:04→19:26)
[2020-09-20] MEDS: MAGNESIUM OXIDE (MAG-OX)400 MG TAB PO SCH ×2 (10:30→17:18)
--- NOTE | 2020-09-20 16:40 | PM&R Progress Note ---
Subjective HPI/CC On Admission Date Seen by Provider: Sep 20, 2020 Time Seen by Provider: 06:00 Subjective/Events-last exam 09/20/20: Saw patient in midst of bed linen change due to incontinence bladder Working with therapy No pain reported except shoulder 09/19/20: Patient a bit down in spirits today No pain No ETOH withdrawal No falls Incontinence noted 09/18/20: Improved status Gets frustrated easily Has bad days and good days Loop recorder placed so will DC Tely Incontinence noted 09/17/20: Bowels moved yesterday Incontinent a bit with bowel and bladder so will try to get on bladder emptying schedule a long with bowel regimen Was able to move and lift up his left arm with a lot of effort but was remarkable Pt improved and much better spirits today 09/16/20: Telemetry needs to be maintained until loop recorder is placed Will reach out to Dr. Walker tomorrow Incontinence is an issue so will try to work with him in the urinal positional hernadez to help him In significant denial Behavioral health consult Bowels moved yesterday Catastrophic stroke and his coping mechanism is no longer available with smoking and drinking so that is causing a significant issue 09/15/20: Bowels finally moved today Lifting left leg a bit Tolerating food intake without much dysphasia Psych evaluation will be provided because of anxiety and depression and situational grief reaction due to catastrophic stroke Pt overall is very depressed Labs are okay 09/14/20: Turn Q 2hours Refusing stool softners BM 09/10/20 Colace and Senna taken today 09/13/20: Advancing diet Moved left leg a bit today No function in left arm though Shower today and shave Crushing his meds with pudding since he did choke on thin liquids Advancing diet as tolerated Bowels moved two days ago Pt appears to be very chronically ill Conferred with RN Reviewed therapy notes Checked meds and labs Review of Systems General: Fatigue, Malaise Neurological: Weakness, Incoordination Objective Exam Vital Signs Vital Signs Date Time Temp Pulse Resp B/P (MAP) Pulse Ox O2 Delivery O2 Flow Rate FiO2 09/20/20 08:46 Room Air 09/20/20 06:00 36.8 68 19 127/63 (84) 95 Capillary Refill : Less Than 3 Seconds General Appearance: No Apparent Distress, WD/WN, Anxious, Chronically ill HEENT: PERRL/EOMI, Normal ENT Inspection, Pharynx Normal Neck: Full Range of Motion, Normal Inspection, Non Tender, Supple, Carotid Bruit Respiratory: Chest Non Tender, Lungs Clear, Normal Breath Sounds, No Accessory Muscle Use, No Respiratory Distress Cardiovascular: Regular Rate, Rhythm, No Edema, No Gallop, No JVD, No Murmur, Normal Peripheral Pulses Gastrointestinal: Normal Bowel Sounds, No Organomegaly, No Pulsatile Mass, Non Tender, Soft Back: Normal Inspection, No CVA Tenderness, No Vertebral Tenderness Extremity: Normal Capillary Refill, Normal Inspection, Normal Range of Motion (except left side weakness), Non Tender, No Calf Tenderness, No Pedal Edema Neurologic/Psychiatric: Alert, Oriented x3, Normal Mood/Affect, outpatient physical therapist assistant II-XII Norm as Tested, Abnormal Gait, Depressed Affect, Facial Droop (left), Motor Weakness (left sided flaccidity) Skin: Normal Color, Warm/Dry Lymphatic: No Adenopathy Results/Procedures Lab Patient resulted labs reviewed. FIM Transfers Therapy Code Descriptions/Definitions Functional [place] Measure: 0=Not Assessed/NA 4=Minimal Assistance 1=Total Assistance 5=Supervision or Setup 2=Maximal Assistance 6=Modified [place] 3=Moderate Assistance 7=Complete IndependenceSCALE: Activities may be completed with or without assistive devices. 2-Qepkezbwrx-pilmhhl completes the activity by him/herself with no assistance from a helper. 5-Set-up or Clean-up Assistance-helper sets up or cleans up; patient completes activity. [place] assists only prior to or following the activity. 4-Supervision or Touching Assistance-helper provides verbal cues and/or touching/steadying and/or contact guard assistance as patient completes activity. Assistance may be provided throughout the activity or intermittently. 3-Partial/Moderate Assistance-helper does LESS THAN HALF the effort. [place] lifts, holds or supports trunk or limbs, but provides less than half the effort. 2-Substantial/Maximal Assistance-helper does MORE THAN HALF the effort. [place] lifts or holds trunk or limbs and provides more than half the effort. 6-Zzuanxkxi-zrotmq does ALL the effort. Patient does none of the effort to complete the activity. Or, the assistance of 2 or more helpers is required for the patient to complete the activity. If activity was not attempted, code reason: 7-Patient Refused. 9-Not Applicable-not attempted and the patient did not perform the activity before the current illness, exacerbation or injury. 10-Not Attempted due to Environmental Limitations-(lack of equipment, weather restraints, etc.). 88-Not Attempted due to Medical Conditions or Safety Concerns. Roll Left to Right (QC): 3 Sit to Lying (QC): 3 Sit to Stand (QC): 3 Chair/Zuv-xr-Vaghj Xfer(QC): 3 Car Transfer (QC): 2 Gait Training Does the Patient Walk?: Yes Distance: 6'x3 Walk 10 feet (QC): 88 Walk 50 ft with 2 Turns(QC): 88 Walk 150 ft (QC): 88 Walking 10ft/uneven surface-QC: 88 Gait Persons Needed: 2 Gait Assistive Device: Parallel Bars Wheelchair Training Does the Pt Use a Wheelchair?: Yes Distance: 150' Wheel 50 ft with 2 turns (QC): 4 Wheel 150 ft (QC): 4 Type of Wheelchair: Manual Stair Training 1 Step (curb) (QC): 88 4 Steps (QC): 88 12 Steps (QC): 88 Balance Picking up an Object (QC): 88 ADL-Treatment Eating (QC): 5 (set up assistance, pt reports being able to use utensils, bring food to mouth, and eat.) Oral Hygiene (QC): 5 Shower/Bathe Self (QC): 1 (Pt able to wash all parts except R arm pit and buttocks. Pt required assist x2 in stand to wash buttocks.) Upper Body Dressing (QC): 3 (Pt required cues to thread LUE into shirt, pt then able to thread head and RUE. Pt required min A with managing shirt down.) Lower Body Dressing (QC): 1 (pt required assistance threading LLE, pt able to lift RLE and place into pants. Assist x2 in collar padder blindstitch order for OT to manage pants up) On/Off Footwear (QC): 2 (Max A) Toileting Hygiene (QC): 1 (assist x2 for hygiene and clothing management) Toilet Transfer (QC): 3 (Mod A SPT from bed to BSC, and Mod A SPT from BSC to w/c.) Assessment/Plan Assessment and Plan Assess & Plan/Chief Complaint Assessment: Catastrophic CVA with left sided weakness Smoker COPD HTN Gout Neuropathy CRI Alcoholism Depression Anxiety Plan: IRF protocol Pain meds Baclofen Home meds Ativan for etoh withdrawal symptoms 09/12/20: Dysphagia screening Monitor for return of function left weakness 09/13/20: Left leg function a bit today Shower today Monitor closely 09/14/20: BM regimen Turn Q 2hours IRF protocol 09/15/20: Monitor BP Fall risk Monitor dysphagia and aspiration risk 09/16/20: Nicotine patch Monitor aspiration 09/17/20: Left arm improving dramatically No pain reported Improved status 09/18/20: Improved status Loop recorder DC Tely 09/19/20: Monitor closely Loop recorder site is less tender now Fall risk incontinence care 09/20/20: Incontinence care Monitor bowels Therapy to intensify (1) Acute CVA (cerebrovascular accident) Status: Acute (2) Left-sided weakness Status: Acute (3) Gout (4) Alcoholism Status: Chronic (5) Ulcer of great toe Status: Acute (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
[2020-09-20 18:06] VITALS: BP 111/65
[2020-09-20] MEDS: LORazepam 0.5 MG (ATIVAN) TABLET PO SCH (20:45)
[2020-09-20] MEDS: MIRTAZAPINE 15 MG (REMERON) TAB PO SCH (20:45)
[2020-09-21 06:00] VITALS: BP 131/70
[2020-09-21] MEDS: THIAMINE 100 MG (VITAMIN B-1) TAB PO SCH (06:12)
[2020-09-21] MEDS: MULTIVIT W/MINERALS TAB (THERAGRAN M) PO SCH (06:12)
[2020-09-21] MEDS: KCL 10 MEQ TAB (MICRO K) PO SCH (06:12)
--- NOTE | 2020-09-21 06:16 | PM&R Progress Note ---
Subjective HPI/CC On Admission Date Seen by Provider: Sep 21, 2020 Time Seen by Provider: 06:00 Subjective/Events-last exam 09/21/20: Patient improved No pain reported Incontinence will be managed with bladder routine 09/20/20: Saw patient in midst of bed linen change due to incontinence bladder Working with therapy No pain reported except shoulder 09/19/20: Patient a bit down in spirits today No pain No ETOH withdrawal No falls Incontinence noted 09/18/20: Improved status Gets frustrated easily Has bad days and good days Loop recorder placed so will DC Tely Incontinence noted 09/17/20: Bowels moved yesterday Incontinent a bit with bowel and bladder so will try to get on bladder emptying schedule a long with bowel regimen Was able to move and lift up his left arm with a lot of effort but was r emarkable Pt improved and much better spirits today 09/16/20: Telemetry needs to be maintained until loop recorder is placed Will reach out to Dr. Walker tomorrow Incontinence is an issue so will try to work with him in the urinal positional hernadez to help him In significant denial Behavioral health consult Bowels moved yesterday Catastrophic stroke and his coping mechanism is no longer available with smoking and drinking so that is causing a significant issue 09/15/20: Bowels finally moved today Lifting left leg a bit Tolerating food intake without much dysphasia Psych evaluation will be provided because of anxiety and depression and situational grief reaction due to catastrophic stroke Pt overall is very depressed Labs are okay 09/14/20: Turn Q 2hours Refusing stool softners BM 09/10/20 Colace and Senna taken today 09/13/20: Advancing diet Moved left leg a bit today No function in left arm though Shower today and shave Crushing his meds with pudding since he did choke on thin liquids Advancing diet as tolerated Bowels moved two days ago Pt appears to be very chronically ill Conferred with RN Reviewed therapy notes Checked meds and labs Review of Systems General: Fatigue Neurological: Weakness, Incoordination Objective Exam Vital Signs Vital Signs Date Time Temp Pulse Resp B/P (MAP) Pulse Ox O2 Delivery O2 Flow Rate FiO2 09/22/20 05:31 36.8 91 17 127/68 (87) 94 Room Air Capillary Refill : Less Than 3 Seconds General Appearance: No Apparent Distress, WD/WN, Anxious, Chronically ill HEENT: PERRL/EOMI, Normal ENT Inspection, Pharynx Normal Neck: Full Range of Motion, Normal Inspection, Non Tender, Supple, Carotid Bruit Respiratory: Chest Non Tender, Lungs Clear, Normal Breath Sounds, No Accessory Muscle Use, No Respiratory Distress Cardiovascular: Regular Rate, Rhythm, No Edema, No Gallop, No JVD, No Murmur, Normal Peripheral Pulses Gastrointestinal: Normal Bowel Sounds, No Organomegaly, No Pulsatile Mass, Non Tender, Soft Back: Normal Inspection, No CVA Tenderness, No Vertebral Tenderness Extremity: Normal Capillary Refill, Normal Inspection, Normal Range of Motion (except left side weakness), Non Tender, No Calf Tenderness, No Pedal Edema Neurologic/Psychiatric: Alert, Oriented x3, Normal Mood/Affect, infant room teacher II-XII Norm as Tested, Abnormal Gait, Depressed Affect, Facial Droop (left), Motor Weakness (left sided flaccidity) Skin: Normal Color, Warm/Dry Lymphatic: No Adenopathy Results/Procedures Lab Laboratory Tests 09/22/20 04:40 Patient resulted labs reviewed. FIM Transfers Therapy Code Descriptions/Definitions Functional [place] Measure: 0=Not Assessed/NA 4=Minimal Assistance 1=Total Assistance 5=Supervision or Setup 2=Maximal Assistance 6=Modified [place] 3=Moderate Assistance 7=Complete IndependenceSCALE: Activities may be completed with or without assistive devices. 8-Mcqsgtgtzy-jqdebhc completes the activity by him/herself with no assistance from a helper. 5-Set-up or Clean-up Assistance-helper sets up or cleans up; patient completes activity. [place] assists only prior to or following the activity. 4-Supervision or Touching Assistance-helper provides verbal cues and/or touching/steadying and/or contact guard assistance as patient completes activity. Assistance may be provided throughout the activity or intermittently. 3-Partial/Moderate Assistance-helper does LESS THAN HALF the effort. [place] lifts, holds or supports trunk or limbs, but provides less than half the effort. 2-Substantial/Maximal Assistance-helper does MORE THAN HALF the effort. [place] lifts or holds trunk or limbs and provides more than half the effort. 7-Djupxayny-zapirz does ALL the effort. Patient does none of the effort to complete the activity. Or, the assistance of 2 or more helpers is required for the patient to complete the activity. If activity was not attempted, code reason: 7-Patient Refused. 9-Not Applicable-not attempted and the patient did not perform the activity before the current illness, exacerbation or injury. 10-Not Attempted due to Environmental Limitations-(lack of equipment, weather restraints, etc.). 88-Not Attempted due to Medical Conditions or Safety Concerns. Roll Left to Right (QC): 3 Sit to Lying (QC): 3 Sit to Stand (QC): 3 Chair/Mmx-il-Lozzm Xfer(QC): 3 Car Transfer (QC): 2 Gait Training Does the Patient Walk?: Yes Distance: 6'x3 Walk 10 feet (QC): 88 Walk 50 ft with 2 Turns(QC): 88 Walk 150 ft (QC): 88 Walking 10ft/uneven surface-QC: 88 Gait Persons Needed: 2 Gait Assistive Device: Parallel Bars Wheelchair Training Does the Pt Use a Wheelchair?: Yes Distance: 150' Wheel 50 ft with 2 turns (QC): 4 Wheel 150 ft (QC): 4 Type of Wheelchair: Manual Stair Training 1 Step (curb) (QC): 88 4 Steps (QC): 88 12 Steps (QC): 88 Balance Picking up an Object (QC): 88 ADL-Treatment Eating (QC): 5 (set up assistance, pt reports being able to use utensils, bring food to mouth, and eat.) Oral Hygiene (QC): 5 Shower/Bathe Self (QC): 1 (Pt able to wash all parts except R arm pit and buttocks. Pt required assist x2 in stand to wash buttocks.) Upper Body Dressing (QC): 3 (Pt required cues to thread LUE into shirt, pt then able to thread head and RUE. Pt required min A with managing shirt down.) Lower Body Dressing (QC): 1 (pt required assistance threading LLE, pt able to lift RLE and place into pants. Assist x2 in product management internship order for OT to manage pants up) On/Off Footwear (QC): 2 (Max A) Toileting Hygiene (QC): 1 (assist x2 for hygiene and clothing management) Toilet Transfer (QC): 3 (Mod A SPT from bed to BSC, and Mod A SPT from BSC to w/c.) Assessment/Plan Assessment and Plan Assess & Plan/Chief Complaint Assessment: Catastrophic CVA with left sided weakness Smoker COPD HTN Gout Neuropathy CRI Alcoholism Depression Anxiety Plan: IRF protocol Pain meds Baclofen Home meds Ativan for etoh withdrawal symptoms 09/12/20: Dysphagia screening Monitor for return of function left weakness 09/13/20: Left leg function a bit today Shower today Monitor closely 09/14/20: BM regimen Turn Q 2hours IRF protocol 09/15/20: Monitor BP Fall risk Monitor dysphagia and aspiration risk 09/16/20: Nicotine patch Monitor aspiration 09/17/20: Left arm improving dramatically No pain reported Improved status 09/18/20: Improved status Loop recorder DC Tely 09/19/20: Monitor closely Loop recorder site is less tender now Fall risk incontinence care 09/20/20: Incontinence care Monitor bowels Therapy to intensify 09/21/20: Monitor incontinence 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 to decrease fish and game warden burden (1) Acute CVA (cerebrovascular accident) Status: Acute (2) Left-sided weakness Status: Acute (3) Gout (4) Alcoholism Status: Chronic (5) Ulcer of great toe Status: Acute (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
[2020-09-21] MEDS: amLODIPine 5 MG (NORVASC) TAB PO SCH (09:05)
[2020-09-21] MEDS: ATENOLOL 25 MG (TENORMIN) TAB PO SCH (09:05)
[2020-09-21] MEDS: ASPIRIN E.C. 325 MG (ECOTRIN) TABLET PO SCH (09:05)
[2020-09-21] MEDS: FOLIC ACID 1 MG TAB PO SCH (09:05)
[2020-09-21] MEDS: NICOTINE 14 MG (NICODERM) PATCH TD SCH (09:06)
[2020-09-21] MEDS: MAGNESIUM OXIDE (MAG-OX)400 MG TAB PO SCH ×2 (09:06→17:05)
[2020-09-21] MEDS: NICOTINE PATCH REMOVAL TP SCH (09:07)
[2020-09-21] MEDS: SENNA W/DOCUSATE (SENOKOT S) TABLET PO SCH ×2 (09:08→22:18)
[2020-09-21] MEDS: polyethylene glycoL POWDER 17 GM (MIRALAX) PACK PO SCH ×2 (09:08→22:15)
[2020-09-21] MEDS: DOCUSATE SODIUM 10 MG/ML 10 ML UDC (COLACE) NG SCH ×2 (09:08→22:18)
--- NOTE | 2020-09-21 10:40 | Cardiology Progress Note ---
Subjective Date Seen by Provider: Sep 21, 2020 Time Seen by Provider: 10:38 Subjective/Events-last exam Patient is laying down in bed. No new complaint. No chest pain. Review of Systems General: No Chills, No Night Sweats, No Fatigue, No Malaise, No Appetite, No Other HEENT: No Head Aches, No Visual Changes, No Eye Pain, No Ear Pain, No Dysphasia, No Sinus Congestion, No Post Nasal Drip, No Sore Throat, No Other Pulmonary: No Dyspnea, No Cough, No Pleuritic Chest Pain, No Other Cardiovascular: No: Chest Pain, Palpitations, Orthopnea, Paroxysmal Noc. Dyspnea, Edema, Lt Headedness, Other Objective-Cardiology Exam Last Set of Vital Signs Vital Signs 09/21/20 06:00 Temp 36.8 Pulse 73 Resp 16 B/P (MAP) 131/70 (90) Pulse Ox 95 O2 Delivery Room Air Capillary Refill : Less Than 3 Seconds I&O Intake and Output 09/21/20 00:00 Intake Total 1380 ml Output Total 1350 ml Balance 30 ml Intake Oral 1380 ml Output Urine Total 1350 ml # Urine Diapers 2 General: Alert, Oriented X3, Cooperative HEENT: Atraumatic, PERRLA Neck: Supple, No JVD, No Thyromegaly Lungs: Clear to Auscultation, Normal Air Movement Heart: Regular Rate, Normal S1, Normal S2, No Murmurs Abdomen: Normal Bowel Sounds, Soft, No Tenderness, No Hepatosplenomegaly, No Masses Extremities: No Clubbing, No Cyanosis, No Edema, Normal Pulses, No Tenderness/Swelling Skin: No Rashes, No Breakdown, No Significant Lesion Neuro: Normal Speech, Other (still having left-sided weakness) Psych/Mental Status: Mental Status NL, Mood NL A/P-Cardiology Admission Diagnosis CVA HTN HLP Tobaccoism Assessment/Plan Cryptogenic CVA, recieved tPA, still having left sided weakness. 2D echo done 09/09/2020 revealed grade 1 diastolic dysfunction, EF 50-55%, PA 40-45%, CTA Head and neck showed no KASANDRA, status post loop monitor implant, doing well. Continue to monitor Hypertension, controlled, continue to monitor Hyperlipidemia, maintained on statin Tobaccoism, educated on smoking cessation ETOH use, discussed limiting alcohol intake Clinical Quality Measures DVT/VTE Risk/Contraindication: Risk Factor Score Per Nursin RFS Level Per Nursing on Admit: 4+=Very High ALEXIA FAIRCHILD MD Sep 21, 2020 10:40
[2020-09-21 17:18] VITALS: BP 129/66
--- NOTE | 2020-09-21 19:24 | NUR ---
Bedside report received from MUSA UMAÑA, assume care of pt
--- NOTE | 2020-09-21 22:02 | NUR ---
Pt refused miralax, Senokot & Colace, back to bed with max assist of 2 people
[2020-09-21] MEDS: MIRTAZAPINE 15 MG (REMERON) TAB PO SCH (22:10)
[2020-09-21] MEDS: LORazepam 0.5 MG (ATIVAN) TABLET PO SCH (22:10)
[2020-09-22 05:16] LABS: BASOPHILS # (AUTO) 0.1 10^3/uL (0.0-0.1); BASOPHILS % (AUTO) 1 % (0-10); EOSINOPHILS # (AUTO) 0.5 10^3/uL (0.0-0.3); EOSINOPHILS % (AUTO) 5 % (0-10); HEMATOCRIT 47 % (40-54); LYMPHOCYTES # (AUTO) 2.2 10^3/uL (1.0-4.0); LYMPHOCYTES % (AUTO) 21 % (12-44); MEAN CORPUSCULAR HEMOGLOBIN 38 pg (25-34); MEAN CORPUSCULAR HGB CONC 34 g/dL (32-36); MEAN CORPUSCULAR VOLUME 113 fL (80-99); MEAN PLATELET VOLUME 10.6 fL (9.0-12.2); MONOCYTES # (AUTO) 1.1 10^3/uL (0.0-1.0); MONOCYTES % (AUTO) 11 % (0-12); NEUTROPHILS # (AUTO) 6.3 10^3/uL (1.8-7.8); NEUTROPHILS % (AUTO) 62 % (42-75); PLATELET COUNT 292 10^3/uL (130-400); WHITE BLOOD COUNT 10.1 10^3/uL (4.3-11.0)
[2020-09-22 05:31] VITALS: BP 127/68
[2020-09-22 05:31] LABS: ALBUMIN 3.9 GM/DL (3.2-4.5); CHLORIDE 104 MMOL/L (98-107); POTASSIUM 4.5 MMOL/L (3.6-5.0); SODIUM 137 MMOL/L (135-145)
[2020-09-22 05:33] LABS: CALCIUM 9.3 MG/DL (8.5-10.1)
[2020-09-22 05:34] LABS: GLUCOSE 103 MG/DL (70-105)
[2020-09-22 05:35] LABS: CARBON DIOXIDE 20 MMOL/L (21-32)
[2020-09-22 05:36] LABS: BILIRUBIN,TOTAL 0.6 MG/DL (0.1-1.0)
[2020-09-22 05:37] LABS: ALKALINE PHOSPHATASE 128 U/L (40-136); CREATININE SERUM 0.85 MG/DL (0.60-1.30); GFR ESTIMATED > 60
[2020-09-22 05:38] LABS: BUN/CREATININE RATIO 31
[2020-09-22 05:40] LABS: ALANINE AMINOTRANSFERASE 55 U/L (0-55)
[2020-09-22] MEDS: THIAMINE 100 MG (VITAMIN B-1) TAB PO SCH (06:38)
[2020-09-22] MEDS: KCL 10 MEQ TAB (MICRO K) PO SCH (06:38)
[2020-09-22] MEDS: MULTIVIT W/MINERALS TAB (THERAGRAN M) PO SCH (06:38)
--- NOTE | 2020-09-22 08:54 | Cardiology Progress Note ---
Subjective Date Seen by Provider: Sep 22, 2020 Time Seen by Provider: 08:15 Subjective/Events-last exam Patient is sitting up in chair, no new complaints. Denies any chest pain or dyspnea. Review of Systems General: No Chills, No Night Sweats, No Fatigue, No Malaise, No Appetite, No Other HEENT: No Head Aches, No Visual Changes, No Eye Pain, No Ear Pain, No Dysphasi a, No Sinus Congestion, No Post Nasal Drip, No Sore Throat, No Other Pulmonary: No Dyspnea, No Cough, No Pleuritic Chest Pain, No Other Cardiovascular: No: Chest Pain, Palpitations, Orthopnea, Paroxysmal Noc. Dyspnea, Edema, Lt Headedness, Other Objective-Cardiology Exam Last Set of Vital Signs Vital Signs 09/22/20 09/22/20 05:31 09:20 Temp 36.8 Pulse 91 Resp 17 B/P (MAP) 127/68 (87) Pulse Ox 94 O2 Delivery Room Air Capillary Refill : Less Than 3 Seconds I&O Intake and Output 09/22/20 00:00 Intake Total 1650 ml Output Total 1150 ml Balance 500 ml Intake Oral 1650 ml Output Urine Total 1150 ml # Voids 4 # Bowel Movements 1 General: Alert, Oriented X3, Cooperative HEENT: Atraumatic, PERRLA Neck: Supple, No JVD, No Thyromegaly Lungs: Clear to Auscultation, Normal Air Movement Heart: Regular Rate, Normal S1, Normal S2, No Murmurs Abdomen: Normal Bowel Sounds, Soft, No Tenderness, No Hepatosplenomegaly, No Masses Extremities: No Clubbing, No Cyanosis, No Edema, Normal Pulses, No Tenderness/Swelling Skin: No Rashes, No Breakdown, No Significant Lesion Neuro: Normal Speech, Other (still having left-sided weakness) Psych/Mental Status: Mental Status NL, Mood NL Results Lab Laboratory Tests 09/22/20 04:40 A/P-Cardiology Admission Diagnosis CVA HTN HLP Tobaccoism Assessment/Plan Cryptogenic CVA, recieved tPA, still having left sided weakness. 2D echo done 09/09/2020 revealed grade 1 diastolic dysfunction, EF 50-55%, PA 40-45%, CTA Head and neck showed no KASANDRA, status post loop monitor implant, doing well. Continue to monitor Hypertension, controlled, continue to monitor Hyperlipidemia, maintained on statin Tobaccoism, educated on smoking cessation ETOH use, discussed limiting alcohol intake Patient was seen and evaluated with Nina, examination performed, management plan was discussed, agree with the current scribed note, I made few changes to the note using Italic font Patient was seen at bedside, dressing was changed on the loop monitor site Healing well. No new complaint Continue to monitor Clinical Quality Measures DVT/VTE Risk/Contraindication: Risk Factor Score Per Nursin RFS Level Per Nursing on Admit: 4+=Very High NINA FERRARA Sep 22, 2020 08:54 ALEXIA FAIRCHILD MD Sep 22, 2020 11:20
[2020-09-22] MEDS: FOLIC ACID 1 MG TAB PO SCH (09:07)
[2020-09-22] MEDS: ATENOLOL 25 MG (TENORMIN) TAB PO SCH (09:07)
[2020-09-22] MEDS: polyethylene glycoL POWDER 17 GM (MIRALAX) PACK PO SCH ×2 (09:07→21:45)
[2020-09-22] MEDS: amLODIPine 5 MG (NORVASC) TAB PO SCH (09:07)
[2020-09-22] MEDS: ASPIRIN E.C. 325 MG (ECOTRIN) TABLET PO SCH (09:07)
--- NOTE | 2020-09-22 09:07 | PM&R Progress Note ---
Subjective HPI/CC On Admission Date Seen by Provider: Sep 22, 2020 Time Seen by Provider: 09:00 Subjective/Events-last exam 09/22/20: Loop recorder maintained Incontinence continues Bowels are moving well Swallowing pretty well I witnessed him actually walking with one-assist No falls 09/21/20: Patient improved No pain reported Incontinence will be managed with bladder routine 09/20/20: Saw patient in midst of bed linen change due to incontinence bladder Working with therapy No pain reported except shoulder 09/19/20: Patient a bit down in spirits today No pain No ETOH withdrawal No falls Incontinence noted 09/18/20: Improved status Gets frustrated easily Has bad days and good days Loop recorder placed so will DC Tely Incontinence noted 09/17/20: Bowels moved yesterday Incontinent a bit with bowel and bladder so will try to get on bladder emptying schedule a long with bowel regimen Was able to move and lift up his left arm with a lot of effort but was remarkable Pt improved and much better spirits today 09/16/20: Telemetry needs to be maintained until loop recorder is placed Will reach out to Dr. Walker tomorrow Incontinence is an issue so will try to work with him in the urinal positional hernadez to help him In significant denial Behavioral health consult Bowels moved yesterday Catastrophic stroke and his coping mechanism is no longer available with smoking and drinking so that is causing a significant issue 09/15/20: Bowels finally moved today Lifting left leg a bit Tolerating food intake without much dysphasia Psych evaluation will be provided because of anxiety and depression and situational grief reaction due to catastrophic stroke Pt overall is very depressed Labs are okay 09/14/20: Turn Q 2hours Refusing stool softners BM 09/10/20 Colace and Senna taken today 09/13/20: Advancing diet Moved left leg a bit today No function in left arm though Shower today and shave Crushing his meds with pudding since he did choke on thin liquids Advancing diet as tolerated Bowels moved two days ago Pt appears to be very chronically ill Conferred with RN Reviewed therapy notes Checked meds and labs Review of Systems General: Fatigue, Malaise Genitourinary: Incontinence Neurological: Weakness, Incoordination Objective Exam Vital Signs Vital Signs Date Time Temp Pulse Resp B/P (MAP) Pulse Ox O2 Delivery O2 Flow Rate FiO2 09/23/20 05:05 36.6 82 16 132/65 (87) 93 Room Air Capillary Refill : Less Than 3 Seconds General Appearance: No Apparent Distress, WD/WN, Anxious, Chronically ill HEENT: PERRL/EOMI, Normal ENT Inspection, Pharynx Normal Neck: Full Range of Motion, Normal Inspection, Non Tender, Supple, Carotid Bruit Respiratory: Chest Non Tender, Lungs Clear, Normal Breath Sounds, No Accessory Muscle Use, No Respiratory Distress Cardiovascular: Regular Rate, Rhythm, No Edema, No Gallop, No JVD, No Murmur, Normal Peripheral Pulses Gastrointestinal: Normal Bowel Sounds, No Organomegaly, No Pulsatile Mass, Non Tender, Soft Back: Normal Inspection, No CVA Tenderness, No Vertebral Tenderness Extremity: Normal Capillary Refill, Normal Inspection, Normal Range of Motion (except left side weakness), Non Tender, No Calf Tenderness, No Pedal Edema Neurologic/Psychiatric: Alert, Oriented x3, Normal Mood/Affect, voice intercept technician II-XII Norm as Tested, Abnormal Gait, Depressed Affect, Facial Droop (left), Motor Weakness (left sided flaccidity) Skin: Normal Color, Warm/Dry Lymphatic: No Adenopathy Results/Procedures Lab Patient resulted labs reviewed. FIM Transfers Therapy Code Descriptions/Definitions Functional [place] Measure: 0=Not Assessed/NA 4=Minimal Assistance 1=Total Assistance 5=Supervision or Setup 2=Maximal Assistance 6=Modified [place] 3=Moderate Assistance 7=Complete IndependenceSCALE: Activities may be completed with or without assistive devices. 6-Sjfdzufaef-cwrhuwj completes the activity by him/herself with no assistance from a helper. 5-Set-up or Clean-up Assistance-helper sets up or cleans up; patient completes activity. [place] assists only prior to or following the activity. 4-Supervision or Touching Assistance-helper provides verbal cues and/or touching/steadying and/or contact guard assistance as patient completes activity. Assistance may be provided throughout the activity or intermittently. 3-Partial/Moderate Assistance-helper does LESS THAN HALF the effort. [place] lifts, holds or supports trunk or limbs, but provides less than half the effort. 2-Substantial/Maximal Assistance-helper does MORE THAN HALF the effort. [place] lifts or holds trunk or limbs and provides more than half the effort. 3-Seixpgyez-agvdei does ALL the effort. Patient does none of the effort to complete the activity. Or, the assistance of 2 or more helpers is required for the patient to complete the activity. If activity was not attempted, code reason: 7-Patient Refused. 9-Not Applicable-not attempted and the patient did not perform the activity before the current illness, exacerbation or injury. 10-Not Attempted due to Environmental Limitations-(lack of equipment, weather restraints, etc.). 88-Not Attempted due to Medical Conditions or Safety Concerns. Roll Left to Right (QC): 3 Sit to Lying (QC): 3 Sit to Stand (QC): 3 Chair/Pyy-he-Dzoxe Xfer(QC): 3 Car Transfer (QC): 2 Gait Training Does the Patient Walk?: Yes Distance: 6'x3 Walk 10 feet (QC): 88 Walk 50 ft with 2 Turns(QC): 88 Walk 150 ft (QC): 88 Walking 10ft/uneven surface-QC: 88 Gait Persons Needed: 2 Gait Assistive Device: Parallel Bars Wheelchair Training Does the Pt Use a Wheelchair?: Yes Distance: 150' Wheel 50 ft with 2 turns (QC): 4 Wheel 150 ft (QC): 4 Type of Wheelchair: Manual Stair Training 1 Step (curb) (QC): 88 4 Steps (QC): 88 12 Steps (QC): 88 Balance Picking up an Object (QC): 88 ADL-Treatment Eating (QC): 5 (set up assistance, pt reports being able to use utensils, bring food to mouth, and eat.) Oral Hygiene (QC): 5 Shower/Bathe Self (QC): 1 (Pt able to wash all parts except R arm pit and buttocks. Pt required assist x2 in stand to wash buttocks.) Upper Body Dressing (QC): 3 (Pt required cues to thread LUE into shirt, pt then able to thread head and RUE. Pt required min A with managing shirt down.) Lower Body Dressing (QC): 1 (pt required assistance threading LLE, pt able to lift RLE and place into pants. Assist x2 in internal medicine nurse order for OT to manage pants up) On/Off Footwear (QC): 2 (Max A) Toileting Hygiene (QC): 1 (assist x2 for hygiene and clothing management) Toilet Transfer (QC): 3 (Mod A SPT from bed to BSC, and Mod A SPT from BSC to w/c.) Assessment/Plan Assessment and Plan Assess & Plan/Chief Complaint Assessment: Catastrophic CVA with left sided weakness Smoker COPD HTN Gout Neuropathy CRI Alcoholism Depression Anxiety Plan: IRF protocol Pain meds Baclofen Home meds Ativan for etoh withdrawal symptoms 09/12/20: Dysphagia screening Monitor for return of function left weakness 09/13/20: Left leg function a bit today Shower today Monitor closely 09/14/20: BM regimen Turn Q 2hours IRF protocol 09/15/20: Monitor BP Fall risk Monitor dysphagia and aspiration risk 09/16/20: Nicotine patch Monitor aspiration 09/17/20: Left arm improving dramatically No pain reported Improved status 09/18/20: Improved status Loop recorder DC Tely 09/19/20: Monitor closely Loop recorder site is less tender now Fall risk incontinence care 09/20/20: Incontinence care Monitor bowels Therapy to intensify 09/21/20: Monitor incontinence 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 to decrease barrel cutter burden 09/22/20: PT OT ST Incontinence (1) Acute CVA (cerebrovascular accident) Status: Acute (2) Left-sided weakness Status: Acute (3) Gout (4) Alcoholism Status: Chronic (5) Ulcer of great toe Status: Acute (6) tPA 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
[2020-09-22] MEDS: SENNA W/DOCUSATE (SENOKOT S) TABLET PO SCH ×2 (09:08→21:45)
[2020-09-22] MEDS: DOCUSATE SODIUM 10 MG/ML 10 ML UDC (COLACE) NG SCH ×2 (09:08→21:45)
[2020-09-22] MEDS: NICOTINE 14 MG (NICODERM) PATCH TD SCH (09:08)
[2020-09-22] MEDS: MAGNESIUM OXIDE (MAG-OX)400 MG TAB PO SCH ×2 (09:09→17:22)
[2020-09-22] MEDS: NICOTINE PATCH REMOVAL TP SCH (09:09)
--- NOTE | 2020-09-22 09:59 | Physical Therapy Daily Note ---
PT Daily Note-Current Subjective Patient in recliner pre tx, agrees to PT, no complaints of pain, will be co- treating with OT due to poor patient mobility, strength, endurance, left hemiparesis, poor standing balance and dynamic sitting and standing balance, the need to coordinate UE and LE during activity. Appearance Patient in recliner post tx with nurse call, will continue to work with OT. Mental Status Patient Orientation: Normal For Age Transfers SCALE: Activities may be completed with or without assistive devices. 6-Gkxzggzbfk-hjqbosu completes the activity by him/herself with no assistance from a helper. 5-Set-up or Clean-up Assistance-helper sets up or cleans up; patient completes activity. [place] assists only prior to or following the activity. 4-Supervision or Touching Assistance-helper provides verbal cues and/or touching/steadying and/or contact guard assistance as patient completes activity. Assistance may be provided throughout the activity or intermittently. 3-Partial/Moderate Assistance-helper does LESS THAN HALF the effort. [place] lifts, holds or supports trunk or limbs, but provides less than half the effort. 2-Substantial/Maximal Assistance-helper does MORE THAN HALF the effort. [place] lifts or holds trunk or limbs and provides more than half the effort. 9-Pjiyzkatb-eccjck does ALL the effort. Patient does none of the effort to complete the activity. Or, the assistance of 2 or more helpers is required for the patient to complete the activity. If activity was not attempted, code reason: 7-Patient Refused. 9-Not Applicable-not attempted and the patient did not perform the activity before the current illness, exacerbation or injury. 10-Not Attempted due to Environmental Limitations-(lack of equipment, weather restraints, etc.). 88-Not Attempted due to Medical Conditions or Safety Concerns. Sit to Stand (QC): 3 Chair/Udk-qy-Oxtye Xfer(QC): 3 Gait Training Distance: 20'x3 Walk 10 feet (QC): 3 Gait Assistive Device: Walker Steffen WC follow, assist patient with balance, weight shifting, step sequencing. Wheelchair Training Does the Pt Use a Wheelchair?: Yes Wheel 50 ft with 2 turns (QC): 4 Wheel 150 ft (QC): 4 150'x2 Exercises standing balance activity in parallel bars reaching with OT while PT worked on LLE stability Treatments WC mobility, balance training, transfers, ambulation. PT worked on functional mobility, LLE stability and balance, OT worked on UE positioning and safety Assessment Current Status: Fair Progress improving balance PT Short Term Goals Short Term Goals Time Frame: Sep 18, 2020 Roll Left & Right: 6 Sit to lyin Lying to sitting on side of be: 3 Sit to stand: 3 Chair/zdf-vw-yledk transfer: 3 Toilet transfer: 3 Walk 10 feet: 3 Wheel 50ft w/2 turns: 4 Wheel 150 feet: 4 PT Inpatient Auditor Goals Fdc Goals PT Fdc Goals Time Frame: Oct 02, 2020 Roll Left & Right (QC): 6 Sit to Lying (QC): 6 Lying-Sitting on Side/Bed(QC): 6 Sit to Stand (QC): 4 Chair/Zhl-dl-Ihqmv Xfer(QC): 4 Toilet Transfer (QC): 4 Car Transfer (QC): 4 Does the Patient Walk: No and Walking Goal IS indicated Walk 10 feet (QC): 4 Walk 50ft with 2 Turns (QC): 4 Walk 150 ft (QC): 4 Walking 10ft on Uneven Surface: 4 1 Step (curb) (QC): 3 4 Steps (QC): 3 12 Steps (QC): 88 Picking up an Object (QC): 4 Wheel 50 feet with 2 turns (QC: 6 Wheel 150 feet: 6 PT Plan Problem List Problem List: Activity Tolerance, Functional Strength, Safety, Balance, Gait, Transfer, Bed Mobility, ROM Treatment/Plan Treatment Plan: Continue Plan of Care Treatment Plan: Bed Mobility, Education, Functional Activity Francesca, Functional Strength, Group Therapy, Gait, Safety, Therapeutic Exercise, Transfers Treatment Duration: Sep 25, 2020 Frequency: At least 5 of 7 days/Wk (IRF) Estimated Hrs Per Day: 1.5 hours per day Patient and/or Family Agrees t: Yes Safety Risks/Education Patient Education: Gait Training, Transfer Techniques, Correct Positioning, W/C Management, Safety Issues Teaching Recipient: Patient Teaching Methods: Demonstration, Discussion Response to Teaching: Reinforcement Needed Time/GCodes Time In: 0900 Time Out: 1000 Total Billed Treatment Time: 60 Total Billed Treatment 1 visit FA Haily ERICKRISTINE SALAS PT Sep 22, 2020 09:59
--- NOTE | 2020-09-22 11:09 | Occupational Ther Daily Note ---
OT Current Status-Daily Note Subjective Pt seated in recliner, agreeable to therapy. Mental Status/Objective Patient Orientation: Person, Place, Time, Situation ADL-Treatment Therapy Code Descriptions/Definitions Functional [place] Measure: 0=Not Assessed/NA 4=Minimal Assistance 1=Total Assistance 5=Supervision or Setup 2=Maximal Assistance 6=Modified [place] 3=Moderate Assistance 7=Complete IndependenceSCALE: Activities may be completed with or without assistive devices. 8-Gjpggtisfo-qhamkbv completes the activity by him/herself with no assistance from a helper. 5-Set-up or Clean-up Assistance-helper sets up or cleans up; patient completes activity. [place] assists only prior to or following the activity. 4-Supervision or Touching Assistance-helper provides verbal cues and/or touching/steadying and/or contact guard assistance as patient completes activity. Assistance may be provided throughout the activity or intermittently. 3-Partial/Moderate Assistance-helper does LESS THAN HALF the effort. [place] lifts, holds or supports trunk or limbs, but provides less than half the effort. 2-Substantial/Maximal Assistance-helper does MORE THAN HALF the effort. [place] lifts or holds trunk or limbs and provides more than half the effort. 3-Lwkgltxvl-aypgrv does ALL the effort. Patient does none of the effort to complete the activity. Or, the assistance of 2 or more helpers is required for the patient to complete the activity. If activity was not attempted, code reason: 7-Patient Refused. 9-Not Applicable-not attempted and the patient did not perform the activity before the current illness, exacerbation or injury. 10-Not Attempted due to Environmental Limitations-(lack of equipment, weather restraints, etc.). 88-Not Attempted due to Medical Conditions or Safety Concerns. Oral Hygiene (QC): 4 (supervision, pt able to complete task at tray table.) Upper Body Dressing (QC): 3 (Pt doffed cues, Mod A to don. Required max verbal cues for task.) Other Treatment [id number]: OT/PT cotreat due to skill of 2 clinicians required that a rehab services aide could not perform in order to coordinate UE/LEs with activity and due to pt's poor mobility, strength, endurance, L hemiparesis, poor standing balance and dynamic sitting/standing balance. OT focused on UE placement, cues for sequ encing and safety, and assistance with functional mobility and transfers while PT focused on LE placement, gross overall movements, and functional mobility/transfers. Pt transferred from recliner to w/c, self-propelled w/c to therapy gym using RUE/LE. Pt ambulated x1 in parallel bars, with assistance for LUE placement on bar. Pt then educated on sherrie-walker, ambulating length of th erapy gym x3 with w/c follow. Pt completed w/c pushups in order to increase BUE strength/functional endurance, and to increase independence with functional transfers. Pt completed x3 sets of 10, OT assisted with LUE placement and blocking of elbow. Pt stood at parallel bars, completing reaching task using RUE, all planes. Pt able to complete task x2, with rest break between. Pt ret urned to his room, transferring to recliner. [id number] OT tx: Pt changed his shirt, requiring max verbal cues for task and mod A. Pt then brushed his teeth at tray table. Post OT tx, pt seated in recliner, call light in reach and all needs met. Education OT Patient Education: Correct positioning, Modified ADL techniques, Progress toward Goal/Update tx plan, Purpose of tx/functional activities Teaching Recipient: Patient Teaching Methods: Demonstration, Discussion Response to Teaching: Verbalize Understanding, Return Demonstration, Skip nforcement Needed OT Skilled Nursing Goals Academic Affairs Manager Goals Time Frame: Oct 03, 2020 Eating (QC): 6 Oral Hygiene (QC): 6 Toileting Hygiene (QC): 4 Shower/Bathe Self (QC): 4 Upper Body Dressing (QC): 6 Lower Body Dressing (QC): 4 On/Off Footwear (QC): 4 Additional Goals: 1-Demonstrate ADL Tasks, 2-Verbalize Understanding, 3- ImproveStrength/Francesca 1=Demonstrate adherence to instructed precautions during ADL tasks. 2=Patient will verbalize/demonstrate understanding of assistive devices/modifications for ADL. 3=Patient will improve strength/tolerance for activity to enable patient to perform ADL's. OT Education/Plan Problem List/Assessment Assessment: Decreased Activ Tolerance, Decreased UE Strength, Impaired Funct Balance, Impaired I ADL's, Impaired Self-Care Skills, Restricted Funct UE ROM Discharge Recommendations Plan/Recommendations: Continue POC Treatment Plan/Plan of Care Patient would benefit from OT for education, treatment and training to promote independence in ADL's, mobility, safety and/or upper extremity function for ADL's. Plan of Care: ADL Retraining, Functional Mobility, Group Exercise/Act as Ind, UE Funct Exercise/Act, UE Neuromus Re-Ed/Coord Treatment Duration: Oct 03, 2020 Frequency: At least 5 of 7 days/Wk (IRF) Estimated Hrs Per Day: 1.5 hours per day Agreement: Yes Rehab Potential: Fair Time/GCodes Start Time: 09:00 Stop Time: 10:15 Total Time Billed (hr/min): 75 Billed Treatment Time 1, FA 4 (60'), ADL (15') WILFREDO CORLEY OT Sep 22, 2020 11:09
--- NOTE | 2020-09-22 11:46 | Speech Therapy Daily Note ---
Speech Daily Progress Note Subjective Date Seen by Provider: Sep 22, 2020 Time Seen by Provider: 00:30 Patient was sitting up in his recliner when I entered his room. Patient stated he walked well in the parallel bars this am. Objective Patient completed OME with vital stim set on 4.0 for 25 minutes without difficulty. Assessment Assessment Current Status: Good Progress Treatment Plan Continue Plan of Care Speech Short Term Goals Short Term Goals Short Term Goals 1) The patient will complete memory tasks related to her daily needs at 80% or greater with minimal cues. 2) The patient will complete safety awareness tasks related to her daily needs at 80% or greater with minimal cues. 3) The patient will complete problem solving tasks related to her daily needs at 80% or greater with minimal cues. 4) The patient will complete OME for improving speech intelligibility. Speech Case Management Director Goals Detention Goals Patient will improve cognitive and speech abilities in order to effectively meet his daily needs with minimal assist. Speech-Plan Patient/Family Goals Patient/Family Goals: Patient plans on returning to his home where he lives with his . Treatment Plan Speech Therapy Treatment Plan: Continue Plan of Care Treatment Duration: Sep 25, 2020 Frequency: 4 times per week (Patient will receive skilled ST 4-5x per week) Estimated Hrs Per Day: .5 hour per day Rehab Potential: Fair Barriers to Learning: Patient's recent CVA and other medical issues Pt/Family Agrees to Plan: Yes Safety Risks/Education Teaching Recipient: Patient Teaching Methods: Demonstration, Discussion Response to Teaching: Verbalize Understanding, Return Demonstration Education Topics Provided: Continued safety as well as communication of wants/needs Time Speech Therapy Time In: 10:30 Speech Therapy Time Out: 11:00 Total Billed Time: 30 Billed Treatment Time 1ANIA [address] ST Sep 22, 2020 11:46
--- NOTE | 2020-09-22 14:48 | Physical Therapy Daily Note ---
PT Daily Note-Current Subjective Patient in recliner pre tx, agrees to PT, has no complaints of pain. Appearance Patient in recliner post tx with nurse call, phone, tray, all needs met. Mental Status Patient Orientation: Person, Place, Situation Transfers SCALE: Activities may be completed with or without assistive devices. 1-Uxjoqcznub-ajogzbu completes the activity by him/herself with no assistance from a helper. 5-Set-up or Clean-up Assistance-helper sets up or cleans up; patient completes activity. [place] assists only prior to or following the activity. 4-Supervision or Touching Assistance-helper provides verbal cues and/or lino shamar/steadying and/or contact guard assistance as patient completes activity. Assistance may be provided throughout the activity or intermittently. 3-Partial/Moderate Assistance-helper does LESS THAN HALF the effort. [place] lifts, holds or supports trunk or limbs, but provides less than half the effort. 2-Substantial/Maximal Assistance-helper does MORE THAN HALF the effort. [place] lifts or holds trunk or limbs and provides more than half the effort. 7-Kswiyuvfg-dpyyhy does ALL the effort. Patient does none of the effort to complete the activity. Or, the assistance of 2 or more helpers is required for the patient to complete the activity. If activity was not attempted, code reason: 7-Patient Refused. 9-Not Applicable-not attempted and the patient did not perform the activity before the current illness, exacerbation or injury. 10-Not Attempted due to Environmental Limitations-(lack of equipment, weather restraints, etc.). 88-Not Attempted due to Medical Conditions or Safety Concerns. Sit to Stand (QC): 3 Chair/Wwu-zb-Abbcl Xfer(QC): 3 Gait Training Distance: 40'x2 Gait Persons Needed: 1 Gait Assistive Device: Walker Steffen patient needs min assist with balance, weight shifts, he advances his left leg on his own. Treatments ambulation Assessment Current Status: Fair Progress improving ambulation PT Short Term Goals Short Term Goals Time Frame: Sep 18, 2020 Roll Left & Right: 6 Sit to lyin Lying to sitting on side of be: 3 Sit to stand: 3 Chair/ewh-jb-wsnsr transfer: 3 Toilet transfer: 3 Walk 10 feet: 3 Wheel 50ft w/2 turns: 4 Wheel 150 feet: 4 PT Fpc Goals Fpc Goals PT Fpc Goals Time Frame: Oct 02, 2020 Roll Left & Right (QC): 6 Sit to Lying (QC): 6 Lying-Sitting on Side/Bed(QC): 6 Sit to Stand (QC): 4 Chair/Xxc-au-Pmgdt Xfer(QC): 4 Toilet Transfer (QC): 4 Car Transfer (QC): 4 Does the Patient Walk: No and Walking Goal IS indicated Walk 10 feet (QC): 4 Walk 50ft with 2 Turns (QC): 4 Walk 150 ft (QC): 4 Walking 10ft on Uneven Surface: 4 1 Step (curb) (QC): 3 4 Steps (QC): 3 12 Steps (QC): 88 Picking up an Object (QC): 4 Wheel 50 feet with 2 turns (QC: 6 Wheel 150 feet: 6 PT Plan Problem List Problem List: Activity Tolerance, Functional Strength, Safety, Balance, Gait, Transfer, Bed Mobility, ROM Treatment/Plan Treatment Plan: Continue Plan of Care Treatment Plan: Bed Mobility, Education, Functional Activity Francesca, Functional Strength, Group Therapy, Gait, Safety, Therapeutic Exercise, Transfers Treatment Duration: Sep 25, 2020 Frequency: At least 5 of 7 days/Wk (IRF) Estimated Hrs Per Day: 1.5 hours per day Patient and/or Family Agrees t: Yes Safety Risks/Education Patient Education: Gait Training, Transfer Techniques, Correct Positioning, Safety Issues Teaching Recipient: Patient Teaching Methods: Demonstration, Discussion Response to Teaching: Reinforcement Needed Time/GCodes Time In: 1430 Time Out: 1445 Total Billed Treatment Time: 15 Total Billed Treatment 1 visit GT KRISTINE FAY PT Sep 22, 2020 14:48
[2020-09-22 18:00] VITALS: BP 137/76
--- NOTE | 2020-09-22 19:10 | NUR ---
Bedside report received from SANDEEP UMAÑA, assume care of pt
[2020-09-22] MEDS: LORazepam 0.5 MG (ATIVAN) TABLET PO SCH (22:04)
[2020-09-22] MEDS: MIRTAZAPINE 15 MG (REMERON) TAB PO SCH (22:04)
--- NOTE | 2020-09-22 22:04 | NUR ---
pt refused Colace, miralax & Senokot, back to bed with max assist 2 people and gait belt
[2020-09-23 05:05] VITALS: BP 132/65
--- NOTE | 2020-09-23 05:45 | PM&R Progress Note ---
Subjective HPI/CC On Admission Date Seen by Provider: Sep 23, 2020 Time Seen by Provider: 09:00 Subjective/Events-last exam 09/23/20: Pt had a crazy dream last night Remeron may cause that so will monitor that closely and may need to discontinue Bowels moved yesterday Incontinence is being managed by using the urinal 09/22/20: Loop recorder maintained Incontinence continues Bowels are moving well Swallowing pretty well I witnessed him actually walking with one-assist No falls 09/21/20: Patient improved No pain reported Incontinence will be managed with bladder routine 09/20/20: Saw patient in midst of bed linen change due to incontinence bladder Working with therapy No pain reported except shoulder 09/19/20: Patient a bit down in spirits today No pain No ETOH withdrawal No falls Incontinence noted 09/18/20: Improved status Gets frustrated easily Has bad days and good days Loop recorder placed so will DC Tely Incontinence noted 09/17/20: Bowels moved yesterday Incontinent a bit with bowel and bladder so will try to get on bladder emptying schedule a long with bowel regimen Was able to move and lift up his left arm with a lot of effort but was remarkable Pt improved and much better spirits today 09/16/20: Telemetry needs to be maintained until loop recorder is placed Will reach out to Dr. Walker tomorrow Incontinence is an issue so will try to work with him in the urinal positional hernadez to help him In significant denial Behavioral health consult Bowels moved yesterday Catastrophic stroke and his coping mechanism is no longer available with smoking and drinking so that is causing a significant issue 09/15/20: Bowels finally moved today Lifting left leg a bit Tolerating food intake without much dysphasia Psych evaluation will be provided because of anxiety and depression and situational grief reaction due to catastrophic stroke Pt overall is very depressed Labs are okay 09/14/20: Turn Q 2hours Refusing stool softners BM 09/10/20 Colace and Senna taken today 09/13/20: Advancing diet Moved left leg a bit today No function in left arm though Shower today and shave Crushing his meds with pudding since he did choke on thin liquids Advancing diet as tolerated Bowels moved two days ago Pt appears to be very chronically ill Conferred with RN Reviewed therapy notes Checked meds and labs Review of Systems Genitourinary: Incontinence Neurological: Weakness, Incoordination Objective Exam Vital Signs Vital Signs Date Time Temp Pulse Resp B/P (MAP) Pulse Ox O2 Delivery O2 Flow Rate FiO2 09/24/20 05:34 36.8 83 16 107/66 (80) 94 Room Air Capillary Refill : Less Than 3 Seconds General Appearance: No Apparent Distress, WD/WN, Anxious, Chronically ill HEENT: PERRL/EOMI, Normal ENT Inspection, Pharynx Normal Neck: Full Range of Motion, Normal Inspection, Non Tender, Supple, Carotid Bruit Respiratory: Chest Non Tender, Lungs Clear, Normal Breath Sounds, No Accessory Muscle Use, No Respiratory Distress Cardiovascular: Regular Rate, Rhythm, No Edema, No Gallop, No JVD, No Murmur, Normal Peripheral Pulses Gastrointestinal: Normal Bowel Sounds, No Organomegaly, No Pulsatile Mass, Non Tender, Soft Back: Normal Inspection, No CVA Tenderness, No Vertebral Tenderness Extremity: Normal Capillary Refill, Normal Inspection, Normal Range of Motion (except left side weakness), Non Tender, No Calf Tenderness, No Pedal Edema Neurologic/Psychiatric: Alert, Oriented x3, Normal Mood/Affect, drafter castings II-XII Norm as Tested, Abnormal Gait, Depressed Affect, Facial Droop (left), Motor Weakness (left sided flaccidity) Skin: Normal Color, Warm/Dry Lymphatic: No Adenopathy Results/Procedures Lab Patient resulted labs reviewed. FIM Transfers Therapy Code Descriptions/Definitions Functional [place] Measure: 0=Not Assessed/NA 4=Minimal Assistance 1=Total Assistance 5=Supervision or Setup 2=Maximal Assistance 6=Modified [place] 3=Moderate Assistance 7=Complete IndependenceSCALE: Activities may be completed with or without assistive devices. 6-Hbqpdqzaeb-ouruzll completes the activity by him/herself with no assistance from a helper. 5-Set-up or Clean-up Assistance-helper sets up or cleans up; patient completes activity. [place] assists only prior to or following the activity. 4-Supervision or Touching Assistance-helper provides verbal cues and/or touching/steadying and/or contact guard assistance as patient completes activity. Assistance may be provided throughout the activity or intermittently. 3-Partial/Moderate Assistance-helper does LESS THAN HALF the effort. [place] lifts, holds or supports trunk or limbs, but provides less than half the effort. 2-Substantial/Maximal Assistance-helper does MORE THAN HALF the effort. [place] lifts or holds trunk or limbs and provides more than half the effort. 1-Iqrgjcxuy-cauxtn does ALL the effort. Patient does none of the effort to complete the activity. Or, the assistance of 2 or more helpers is required for the patient to complete the activity. If activity was not attempted, code reason: 7-Patient Refused. 9-Not Applicable-not attempted and the patient did not perform the activity before the current illness, exacerbation or injury. 10-Not Attempted due to Environmental Limitations-(lack of equipment, weather restraints, etc.). 88-Not Attempted due to Medical Conditions or Safety Concerns. Roll Left to Right (QC): 3 Sit to Lying (QC): 3 Sit to Stand (QC): 3 Chair/Dit-oz-Kbhzi Xfer(QC): 3 Car Transfer (QC): 2 Gait Training Does the Patient Walk?: Yes Distance: 40'x2 Walk 10 feet (QC): 3 Walk 50 ft with 2 Turns(QC): 88 Walk 150 ft (QC): 88 Walking 10ft/uneven surface-QC: 88 Gait Persons Needed: 1 Gait Assistive Device: Walker Steffen Wheelchair Training Does the Pt Use a Wheelchair?: Yes Distance: 150' Wheel 50 ft with 2 turns (QC): 4 Wheel 150 ft (QC): 4 Type of Wheelchair: Manual Stair Training 1 Step (curb) (QC): 88 4 Steps (QC): 88 12 Steps (QC): 88 Balance Picking up an Object (QC): 88 ADL-Treatment Eating (QC): 5 (set up assistance, pt reports being able to use utensils, bring food to mouth, and eat.) Oral Hygiene (QC): 4 (supervision, pt able to complete task at tray table.) Shower/Bathe Self (QC): 1 (Pt able to wash all parts except R arm pit and buttocks. Pt required assist x2 in stand to wash buttocks.) Upper Body Dressing (QC): 3 (Pt doffed cues, Mod A to don. Required max verbal cues for task.) Lower Body Dressing (QC): 1 (pt required assistance threading LLE, pt able to lift RLE and place into pants. Assist x2 in [place] order for OT to manage pants up) On/Off Footwear (QC): 2 (Max A) Toileting Hygiene (QC): 1 (assist x2 for hygiene and clothing management) Toilet Transfer (QC): 3 (Mod A SPT from bed to BSC, and Mod A SPT from BSC to w/c.) Assessment/Plan Assessment and Plan Assess & Plan/Chief Complaint Assessment: Catastrophic CVA with left sided weakness Smoker COPD HTN Gout Neuropathy CRI Alcoholism Depression Anxiety Plan: IRF protocol Pain meds Baclofen Home meds Ativan for etoh withdrawal symptoms 09/12/20: Dysphagia screening Monitor for return of function left weakness 09/13/20: Left leg function a bit today Shower today Monitor closely 09/14/20: BM regimen Turn Q 2hours IRF protocol 09/15/20: Monitor BP Fall risk Monitor dysphagia and aspiration risk 09/16/20: Nicotine patch Monitor aspiration 09/17/20: Left arm improving dramatically No pain reported Improved status 09/18/20: Improved status Loop recorder DC Tely 09/19/20: Monitor closely Loop recorder site is less tender now Fall risk incontinence care 09/20/20: Incontinence care Monitor bowels Therapy to intensify 09/21/20: Monitor incontinence 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 to decrease auto tune up mechanic burden 09/22/20: PT OT ST Incontinence 09/23/20: Monitor incontinence Monitor dreams may need to DC Remeron (1) Acute CVA (cerebrovascular accident) Status: Acute (2) Left-sided weakness Status: Acute (3) Gout (4) Alcoholism Status: Chronic (5) Ulcer of great toe Status: Acute (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
[2020-09-23] MEDS: THIAMINE 100 MG (VITAMIN B-1) TAB PO SCH (06:46)
[2020-09-23] MEDS: KCL 10 MEQ TAB (MICRO K) PO SCH (06:46)
[2020-09-23] MEDS: MULTIVIT W/MINERALS TAB (THERAGRAN M) PO SCH (06:46)
--- NOTE | 2020-09-23 08:56 | Physical Therapy Daily Note ---
PT Daily Note-Current Subjective Patient in bed pre tx, agrees to PT, no complaints of pain, needs shorts put on, does so with max assist. Appearance Patient in recliner post tx with nurse call, phone, tray, all needs met. Mental Status Patient Orientation: Normal For Age Transfers SCALE: Activities may be completed with or without assistive devices. 9-Qjyqrchxdt-xigywdc completes the activity by him/herself with no assistance from a helper. 5-Set-up or Clean-up Assistance-helper sets up or cleans up; patient completes activity. [place] assists only prior to or following the activity. 4-Supervision or Touching Assistance-helper provides verbal cues and/or touching/steadying and/or contact guard assistance as patient completes activity. Assistance may be provided throughout the activity or intermittently. 3-Partial/Moderate Assistance-helper does LESS THAN HALF the effort. [place] lifts, holds or supports trunk or limbs, but provides less than half the effort. 2-Substantial/Maximal Assistance-helper does MORE THAN HALF the effort. [place] lifts or holds trunk or limbs and provides more than half the effort. 3-Tsrdmqkmq-ybbhbt does ALL the effort. Patient does none of the effort to complete the activity. Or, the assistance of 2 or more helpers is required for the patient to complete the activity. If activity was not attempted, code reason: 7-Patient Refused. 9-Not Applicable-not attempted and the patient did not perform the activity before the current illness, exacerbation or injury. 10-Not Attempted due to Environmental Limitations-(lack of equipment, weather restraints, etc.). 88-Not Attempted due to Medical Conditions or Safety Concerns. Roll Left & Right (QC): 5 Lying to Sitting/Side of Bed(Q: 3 Sit to Stand (QC): 3 Chair/Yhy-og-Dlgzf Xfer(QC): 3 Gait Training Distance: 75'x4 Walk 10 feet (QC): 3 Walk 50 ft with 2 Turns(QC): 3 Gait Persons Needed: 1 Gait Assistive Device: Walker Steffen slow ambulation, needs assist with balance, better step through on each side and better foot clearance on the left side Exercises NuStep Minutes: 15 NuStep Workload: 4 Treatments dressing, bed mobility and transfers, ambulation, functional strengthening Assessment Current Status: Fair Progress improving endurance and ambulation PT Short Term Goals Short Term Goals Time Frame: Sep 18, 2020 Roll Left & Right: 6 Sit to lyin Lying to sitting on side of be: 3 Sit to stand: 3 Chair/xid-dp-dsndv transfer: 3 Toilet transfer: 3 Walk 10 feet: 3 Wheel 50ft w/2 turns: 4 Wheel 150 feet: 4 PT Correction Goals Correction Goals PT Breaker Layer Goals Time Frame: Oct 02, 2020 Roll Left & Right (QC): 6 Sit to Lying (QC): 6 Lying-Sitting on Side/Bed(QC): 6 Sit to Stand (QC): 4 Chair/Zdl-ps-Quryn Xfer(QC): 4 Toilet Transfer (QC): 4 Car Transfer (QC): 4 Does the Patient Walk: No and Walking Goal IS indicated Walk 10 feet (QC): 4 Walk 50ft with 2 Turns (QC): 4 Walk 150 ft (QC): 4 Walking 10ft on Uneven Surface: 4 1 Step (curb) (QC): 3 4 Steps (QC): 3 12 Steps (QC): 88 Picking up an Object (QC): 4 Wheel 50 feet with 2 turns (QC: 6 Wheel 150 feet: 6 PT Plan Problem List Problem List: Activity Tolerance, Functional Strength, Safety, Balance, Gait, Transfer, Bed Mobility, ROM Treatment/Plan Treatment Plan: Continue Plan of Care Treatment Plan: Bed Mobility, Education, Functional Activity Francesca, Functional Strength, Group Therapy, Gait, Safety, Therapeutic Exercise, Transfers Treatment Duration: Sep 25, 2020 Frequency: At least 5 of 7 days/Wk (IRF) Estimated Hrs Per Day: 1.5 hours per day Patient and/or Family Agrees t: Yes Safety Risks/Education Patient Education: Gait Training, Transfer Techniques, Correct Positioning, Safety Issues Teaching Recipient: Patient Teaching Methods: Demonstration, Discussion Response to Teaching: Reinforcement Needed Time/GCodes Time In: 0800 Time Out: 0900 Total Billed Treatment Time: 60 Total Billed Treatment 1 visit EX 15' FA 45' KRISTINE HAWK PT Sep 23, 2020 08:56
[2020-09-23] MEDS: FOLIC ACID 1 MG TAB PO SCH (09:00)
[2020-09-23] MEDS: amLODIPine 5 MG (NORVASC) TAB PO SCH (09:00)
[2020-09-23] MEDS: NICOTINE 14 MG (NICODERM) PATCH TD SCH (09:00)
[2020-09-23] MEDS: ASPIRIN E.C. 325 MG (ECOTRIN) TABLET PO SCH (09:00)
[2020-09-23] MEDS: ATENOLOL 25 MG (TENORMIN) TAB PO SCH (09:00)
[2020-09-23] MEDS: MAGNESIUM OXIDE (MAG-OX)400 MG TAB PO SCH ×2 (09:01→17:32)
[2020-09-23] MEDS: DOCUSATE SODIUM 10 MG/ML 10 ML UDC (COLACE) NG SCH ×2 (09:02→21:18)
[2020-09-23] MEDS: NICOTINE PATCH REMOVAL TP SCH (09:02)
[2020-09-23] MEDS: polyethylene glycoL POWDER 17 GM (MIRALAX) PACK PO SCH ×2 (09:03→21:18)
[2020-09-23] MEDS: SENNA W/DOCUSATE (SENOKOT S) TABLET PO SCH ×2 (09:03→21:18)
--- NOTE | 2020-09-23 10:30 | Occupational Ther Daily Note ---
OT Current Status-Daily Note Subjective Pt seated in recliner, agreeable to OT tx. Pt frustrated with his performance with ADLs throughout session, OT educated pt on how practicing with different techniques can help him become more independent, he verbalized understanding. Mental Status/Objective Patient Orientation: Person, Place, Time, Situation ADL-Treatment Therapy Code Descriptions/Definitions Functional [place] Measure: 0=Not Assessed/NA 4=Minimal Assistance 1=Total Assistance 5=Supervision or Setup 2=Maximal Assistance 6=Modified [place] 3=Moderate Assistance 7=Complete IndependenceSCALE: Activities may be completed with or without assistive devices. 9-Wvuvwsxjro-xcgbojq completes the activity by him/herself with no assistance from a helper. 5-Set-up or Clean-up Assistance-helper sets up or cleans up; patient completes activity. [place] assists only prior to or following the activity. 4-Supervision or Touching Assistance-helper provides verbal cues and/or touching/steadying and/or contact guard assistance as patient completes activity. Assistance may be provided throughout the activity or intermittently. 3-Partial/Moderate Assistance-helper does LESS THAN HALF the effort. [place] li fts, holds or supports trunk or limbs, but provides less than half the effort. 2-Substantial/Maximal Assistance-helper does MORE THAN HALF the effort. [place] lifts or holds trunk or limbs and provides more than half the effort. 9-Qzmjkvlki-huldzo does ALL the effort. Patient does none of the effort to complete the activity. Or, the assistance of 2 or more helpers is required for the patient to complete the activity. If activity was not attempted, code reason: 7-Patient Refused. 9-Not Applicable-not attempted and the patient did not perform the activity before the current illness, exacerbation or injury. 10-Not Attempted due to Environmental Limitations-(lack of equipment, weather restraints, etc.). 88-Not Attempted due to Medical Conditions or Safety Concerns. Shower/Bathe Self (QC): 3 (Min A sponge bath. ) Upper Body Dressing (QC): 3 (Pt required verbal cues to recall hemiplegic dressing techniques, min A to don shirt.) Lower Body Dressing (QC): 2 (Mod A in stand as pt managed pants down, pt able to doff pants from legs using dressing stick, min A. OT threaded pants on LLE, pt then able to use dressing stick to don RLE, assistance with managing pants up in stand.) On/Off Footwear: 2 (Pt required min A doffing socks using dressing stick, pt able to don RLE sock with increased time, assist with LLE sock.) Other Treatment Pt agreeable to sponge bath and dressing. Pt seated in recliner, doffed shirt and completed upper body dressing. OT provided pt with long handled sponge, educating/demonstrating to him on using sponge to wash R upper arm and arm pit. Pt took sponge, and began washing his back and LUE with sponge. OT provided pt with verbal and tactile cues, pt then able to use sponge to wash RUE. Pt donned shirt, requiring cues on how to dress using hemiplegic techniques, poor carryover from previous sessions. Pt stood at [facility], mod A standing balance as pt used RUE to manage pants down. Pt then sat in recliner to complete lower body bathing and dressing. Pt able to use long handled sponge to wash LEs. Pt then donned pants, mod A standing balance at [facility], and assist managing pants up. Pt donned socks, pt able to don RLE sock without AE. Pt educated pt on using sock aide, pt unable to thread sock onto sock aide requiring assistance, pt able to pull sock onto sock aide with some assistance. PT then tried to don onto foot, required assistance lifting LLE, pt pulled on sock aide but still required assistance pulling sock aide up to don LLE sock. Pt reports frustration with footwear, stating "I will just go without socks". OT educated pt on practicing with AE as to increase his independence but pt still discouraged. Pt and OT discuss his progress he has made in therapy, starting with requiring 2 person assistance to don pants, but he is now able to complete it with just 1 person assistance. Post OT tx, pt seated in recliner, call light in reach and all needs met. Education OT Patient Education: Correct positioning, Energy conservation, Modified ADL techniques, Progress toward Goal/Update tx plan, Purpose of tx/functional activities, Transfer techniques, Use of adapted equipment Teaching Recipient: Patient Teaching Methods: Demonstration, Discussion Response to Teaching: Verbalize Understanding, Return Demonstration, Reinforcement Needed OT Prison Goals Prison Goals Time Frame: Oct 03, 2020 Eating (QC): 6 Oral Hygiene (QC): 6 Toileting Hygiene (QC): 4 Shower/Bathe Self (QC): 4 Upper Body Dressing (QC): 6 Lower Body Dressing (QC): 4 On/Off Footwear (QC): 4 Additional Goals: 1-Demonstrate ADL Tasks, 2-Verbalize Understanding, 3- ImproveStrength/Francesca 1=Demonstrate adherence to instructed precautions during ADL tasks. 2=Patient will verbalize/demonstrate understanding of assistive devices/modifications for ADL. 3=Patient will improve strength/tolerance for activity to enable patient to perform ADL's. OT Education/Plan Problem List/Assessment Assessment: Decreased Activ Tolerance, Decreased UE Strength, Impaired Funct Balance, Impaired I ADL's, Impaired Self-Care Skills, Restricted Funct UE ROM Discharge Recommendations Plan/Recommendations: Continue POC Treatment Plan/Plan of Care Patient would benefit from OT for education, treatment and training to promote independence in ADL's, mobility, safety and/or upper extremity function for ADL's. Plan of Care: ADL Retraining, Functional Mobility, Group Exercise/Act as Ind, UE Funct Exercise/Act, UE Neuromus Re-Ed/Coord Treatment Duration: Oct 03, 2020 Frequency: At least 5 of 7 days/Wk (IRF) Estimated Hrs Per Day: 1.5 hours per day Agreement: Yes Rehab Potential: Fair Time/GCodes Start Time: 09:00 Stop Time: 10:15 Total Time Billed (hr/min): 75 Billed Treatment Time 1, ADL 5 WILFREDO CORLEY OT Sep 23, 2020 10:30
--- NOTE | 2020-09-23 11:29 | Speech Therapy Daily Note ---
Speech Daily Progress Note Subjective Date Seen by Provider: Sep 23, 2020 Time Seen by Provider: 00:30 Patient was sitting up in his recliner talking on the phone with his . Objective Patient completed safety awareness questions related to his return home with 85% with minimal cues. Assessment Assessment Current Status: Good Progress Treatment Plan Continue Plan of Care Speech Short Term Goals Short Term Goals Short Term Goals 1) The patient will complete memory tasks related to her daily needs at 80% or greater with minimal cues. 2) The patient will complete safety awareness tasks related to her daily needs at 80% or greater with minimal cues. 3) The patient will complete problem solving tasks related to her daily needs at 80% or greater with minimal cues. 4) The patient will complete OME for improving speech intelligibility. Speech Alf Goals Lpn Goals Patient will improve cognitive and speech abilities in order to effectively meet his daily needs with minimal assist. Speech-Plan Patient/Family Goals Patient/Family Goals: Patient plans on returning to his home where he lives with his upon discharge. Treatment Plan Speech Therapy Treatment Plan: Continue Plan of Care Treatment Duration: Sep 25, 2020 Frequency: 4 times per week (Patient will receive skilled ST 4-5x per week) Estimated Hrs Per Day: .5 hour per day Rehab Potential: Fair Barriers to Learning: Patient's recent CVA Pt/Family Agrees to Plan: Yes Safety Risks/Education Teaching Recipient: Patient Teaching Methods: Demonstration, Discussion Response to Teaching: Verbalize Understanding, Return Demonstration Education Topics Provided: Continued safety within his room Time Speech Therapy Time In: 10:30 Speech Therapy Time Out: 11:00 Total Billed Time: 30 Billed Treatment Time 1[address] Sep 23, 2020 11:29
--- NOTE | 2020-09-23 14:44 | Physical Therapy Daily Note ---
PT Daily Note-Current Subjective Patient in recliner pre tx, agrees to PT, has no complaints of pain. Appearance Patient in recliner post tx with nurse call, phone, tray, all needs met. Mental Status Patient Orientation: Normal For Age Transfers SCALE: Activities may be completed with or without assistive devices. 7-Jzxtzjayyq-alixizl completes the activity by him/herself with no assistance from a helper. 5-Set-up or Clean-up Assistance-helper sets up or cleans up; patient completes activity. [place] assists only prior to or following the activity. 4-Supervision or Touching Assistance-helper provides verbal cues and/or touching/steadying and/or contact guard assistance as patient completes activity. Assistance may be provided throughout the activity or intermittently. 3-Partial/Moderate Assistance-helper does LESS THAN HALF the effort. [place] lifts, holds or supports trunk or limbs, but provides less than half the effort. 2-Substantial/Maximal Assistance-helper does MORE THAN HALF the effort. [place] lifts or holds trunk or limbs and provides more than half the effort. 7-Nngbgrztq-lrducn does ALL the effort. Patient does none of the effort to complete the activity. Or, the assistance of 2 or more helpers is required for the patient to complete the activity. If activity was not attempted, code reason: 7-Patient Refused. 9-Not Applicable-not attempted and the patient did not perform the activity before the current illness, exacerbation or injury. 10-Not Attempted due to Environmental Limitations-(lack of equipment, weather restraints, etc.). 88-Not Attempted due to Medical Conditions or Safety Concerns. Sit to Stand (QC): 4 Chair/Bwo-hg-Zjhkn Xfer(QC): 3 Gait Training Distance: 70'x2 Walk 10 feet (QC): 3 Walk 50 ft with 2 Turns(QC): 3 Gait Assistive Device: Walker Steffen assist with balance, especially when turning to sit between bouts of ambulation Treatments ambulation, transfers Assessment Current Status: Fair Progress improving ambulation PT Short Term Goals Short Term Goals Time Frame: Sep 18, 2020 Roll Left & Right: 6 Sit to lyin Lying to sitting on side of be: 3 Sit to stand: 3 Chair/tyv-vz-skivh transfer: 3 Toilet transfer: 3 Walk 10 feet: 3 Wheel 50ft w/2 turns: 4 Wheel 150 feet: 4 PT Utilization Coordinator Goals Utilization Coordinator Goals PT Assisted Goals Time Frame: Oct 02, 2020 Roll Left & Right (QC): 6 Sit to Lying (QC): 6 Lying-Sitting on Side/Bed(QC): 6 Sit to Stand (QC): 4 Chair/Ujr-ma-Zjcfq Xfer(QC): 4 Toilet Transfer (QC): 4 Car Transfer (QC): 4 Does the Patient Walk: No and Walking Goal IS indicated Walk 10 feet (QC): 4 Walk 50ft with 2 Turns (QC): 4 Walk 150 ft (QC): 4 Walking 10ft on Uneven Surface: 4 1 Step (curb) (QC): 3 4 Steps (QC): 3 12 Steps (QC): 88 Picking up an Object (QC): 4 Wheel 50 feet with 2 turns (QC: 6 Wheel 150 feet: 6 PT Plan Problem List Problem List: Activity Tolerance, Functional Strength, Safety, Balance, Gait, Transfer, Bed Mobility, ROM Treatment/Plan Treatment Plan: Continue Plan of Care Treatment Plan: Bed Mobility, Education, Functional Activity Francesca, Functional Strength, Group Therapy, Gait, Safety, Therapeutic Exercise, Transfers Treatment Duration: Sep 25, 2020 Frequency: At least 5 of 7 days/Wk (IRF) Estimated Hrs Per Day: 1.5 hours per day Patient and/or Family Agrees t: Yes Safety Risks/Education Patient Education: Gait Training, Transfer Techniques, Correct Positioning, Safety Issues Teaching Recipient: Patient Teaching Methods: Demonstration, Discussion Response to Teaching: Reinforcement Needed Time/GCodes Time In: 1430 Time Out: 1445 Total Billed Treatment Time: 15 Total Billed Treatment 1 visit GT Rogelio' KRISTINE HAWK PT Sep 23, 2020 14:44
[2020-09-23 16:18] VITALS: BP 111/66
--- NOTE | 2020-09-23 19:18 | NUR ---
Bedside report received from LASHAUN UMAÑA, assume care of pt
[2020-09-23] MEDS: MIRTAZAPINE 15 MG (REMERON) TAB PO SCH (21:14)
[2020-09-23] MEDS: LORazepam 0.5 MG (ATIVAN) TABLET PO SCH (21:14)
--- NOTE | 2020-09-23 21:14 | NUR ---
pt refused Colace, miralax & Senokot, takes meds well one at a time, reminded to hold chin down when swallowing
[2020-09-24 05:34] VITALS: BP 107/66
[2020-09-24] MEDS: THIAMINE 100 MG (VITAMIN B-1) TAB PO SCH (06:56)
[2020-09-24] MEDS: KCL 10 MEQ TAB (MICRO K) PO SCH (06:56)
[2020-09-24] MEDS: MULTIVIT W/MINERALS TAB (THERAGRAN M) PO SCH (06:56)
[2020-09-24] MEDS: FOLIC ACID 1 MG TAB PO SCH (07:34)
[2020-09-24] MEDS: amLODIPine 5 MG (NORVASC) TAB PO SCH (07:34)
[2020-09-24] MEDS: SENNA W/DOCUSATE (SENOKOT S) TABLET PO SCH ×2 (07:34→21:57)
[2020-09-24] MEDS: ATENOLOL 25 MG (TENORMIN) TAB PO SCH (07:34)
[2020-09-24] MEDS: NICOTINE 14 MG (NICODERM) PATCH TD SCH (07:35)
[2020-09-24] MEDS: ASPIRIN E.C. 325 MG (ECOTRIN) TABLET PO SCH (07:35)
[2020-09-24] MEDS: NICOTINE PATCH REMOVAL TP SCH (07:36)
[2020-09-24] MEDS: MAGNESIUM OXIDE (MAG-OX)400 MG TAB PO SCH ×2 (07:36→18:16)
[2020-09-24] MEDS: polyethylene glycoL POWDER 17 GM (MIRALAX) PACK PO SCH ×2 (07:37→21:57)
[2020-09-24] MEDS: DOCUSATE SODIUM 10 MG/ML 10 ML UDC (COLACE) NG SCH ×2 (07:37→21:57)
--- NOTE | 2020-09-24 08:24 | Occupational Ther Daily Note ---
OT Current Status-Daily Note Subjective Pt laying in bed, agreeable to OT Tx. Pain Numeric Pain Scale: 0-No Pain Mental Status/Objective Patient Orientation: Person, Place, Time, Situation ADL-Treatment Therapy Code Descriptions/Definitions Functional [place] Measure: 0=Not Assessed/NA 4=Minimal Assistance 1=Total Assistance 5=Supervision or Setup 2=Maximal Assistance 6=Modified [place] 3=Moderate Assistance 7=Complete IndependenceSCALE: Activities may be completed with or without assistive devices. 3-Zujphjblbr-aypbmvt completes the activity by him/herself with no assistance from a helper. 5-Set-up or Clean-up Assistance-helper sets up or cleans up; patient completes activity. [place] assists only prior to or following the activity. 4-Supervision or Touching Assistance-helper provides verbal cues and/or touching/steadying and/or contact guard assistance as patient completes activity. Assistance may be provided throughout the activity or intermittently. 3-Partial/Moderate Assistance-helper does LESS THAN HALF the effort. [place] lifts, holds or supports trunk or limbs, but provides less than half the effort. 2-Substantial/Maximal Assistance-helper does MORE THAN HALF the effort. [place] lifts or holds trunk or limbs and provides more than half the effort. 0-Hjdmcuhhg-mjmfty does ALL the effort. Patient does none of the effort to complete the activity. Or, the assistance of 2 or more helpers is required for the patient to complete the activity. If activity was not attempted, code reason: 7-Patient Refused. 9-Not Applicable-not attempted and the patient did not perform the activity before the current illness, exacerbation or injury. 10-Not Attempted due to Environmental Limitations-(lack of equipment, weather restraints, etc.). 88-Not Attempted due to Medical Conditions or Safety Concerns. Oral Hygiene (QC): 5 (set up at tray table.) Upper Body Dressing (QC): 4 (SBA, pt required 1 verbal cue during task.) Lower Body Dressing (QC): 3 (Assist to thread LLE into pants, mod verbal cues, and assistance in stand at sherrie-walker for pant hike.) On/Off Footwear: 1 (total assist to don shoes.) Other Treatment 3712-1230 OT tx: Pt laying in bed, transferred supine to sit EOB with CGA. Pt donned clothes at EOB, with assist in standing at FWW to manage pants up. Pt performed SPT from bed to w/c with mod A. Pt required constant cues during sit to stands in order to push up from surface he is on instead of trying to push up from sherrie-walker. Pt self-propelled w/c around [facility] common area, and into therapy gym. OT tx focus on neuromuscular reeducation of LUE. Pt completed 2x10 reps towel slides in flexion and scaption at table, requiring assistance to bring arm forward, pt then able to pull arm back towards his body. Pt took rest breaks as needed. He then completed 2x10 reps scapular elevation and 2x10 reps scapular retraction. Pt's LUE movements slower with movements, and decreased ROM. [id number] OT/PT cotreat due to skill of 2 clinicians required which a rehab physician could not perform in order to coordinate UE/LEs with task and to focus on increasing dynamic standing balance. OT focused on UE reaching and functional activity while PT focused on dynamic standing balance. OT placed clothespins around bottom of pt's shirt and around his pants. Pt stood at hemiwalker, then used RUE to remove clothes pins. Pt required mod A with standing balance during task. Pt completed task x2. Post OT tx, pt seated in w/c in gym for continued PT Tx. Education OT Patient Education: Correct positioning, Energy conservation, Exercise program, Modified ADL techniques, Progress toward Goal/Update tx plan, Purpose of tx/functional activities Teaching Recipient: Patient Teaching Methods: Discussion Response to Teaching: Verbalize Understanding OT Longterm Goals Longterm Goals Time Frame: Oct 03, 2020 Eating (QC): 6 Oral Hygiene (QC): 6 Toileting Hygiene (QC): 4 Shower/Bathe Self (QC): 4 Upper Body Dressing (QC): 6 Lower Body Dressing (QC): 4 On/Off Footwear (QC): 4 Additional Goals: 1-Demonstrate ADL Tasks, 2-Verbalize Understanding, 3- ImproveStrength/Francesca 1=Demonstrate adherence to instructed precautions during ADL tasks. 2=Patient will verbalize/demonstrate understanding of assistive devices/modifications for ADL. 3=Patient will improve strength/tolerance for activity to enable patient to perform ADL's. OT Education/Plan Problem List/Assessment Assessment: Decreased Activ Tolerance, Decreased UE Strength, Impaired Bed Mobility, Impaired Funct Balance, Impaired I ADL's, Impaired Self-Care Skills, Restricted Funct UE ROM Discharge Recommendations Plan/Recommendations: Continue POC Treatment Plan/Plan of Care Patient would benefit from OT for education, treatment and training to promote independence in ADL's, mobility, safety and/or upper extremity function for ADL's. Plan of Care: ADL Retraining, Functional Mobility, Group Exercise/Act as Ind, UE Funct Exercise/Act, UE Neuromus Re-Ed/Coord Treatment Duration: Oct 03, 2020 Frequency: At least 5 of 7 days/Wk (IRF) Estimated Hrs Per Day: 1.5 hours per day Agreement: Yes Rehab Potential: Fair Time/GCodes Start Time: 08:00 Stop Time: 09:15 Total Time Billed (hr/min): 75 Billed Treatment Time 7679-3329 OT Tx, [id number] OT/PT cotreat 1, ADL 2 (30'), NM 2 (30'), FA (15') WILFREDO CORLEY OT Sep 24, 2020 08:23
--- NOTE | 2020-09-24 10:25 | Physical Therapy Daily Note ---
PT Daily Note-Current Subjective Pt resting in Therapy while working with OT. Pt agrees to short co-treat to work on standing balance with pt. Pain Location: No Pain Reported Mental Status Patient Orientation: Person, Place, Time, Situation Transfers SCALE: Activities may be completed with or without assistive devices. 3-Uwzrnvsuzq-pahwcha completes the activity by him/herself with no assistance from a helper. 5-Set-up or Clean-up Assistance-helper sets up or cleans up; patient completes activity. [place] assists only prior to or following the activity. 4-Supervision or Touching Assistance-helper provides verbal cues and/or touching/steadying and/or contact guard assistance as patient completes activity. Assistance may be provided throughout the activity or intermittently. 3-Partial/Moderate Assistance-helper does LESS THAN HALF the effort. [place] li fts, holds or supports trunk or limbs, but provides less than half the effort. 2-Substantial/Maximal Assistance-helper does MORE THAN HALF the effort. [place] lifts or holds trunk or limbs and provides more than half the effort. 5-Eqofdywzz-exrkvc does ALL the effort. Patient does none of the effort to complete the activity. Or, the assistance of 2 or more helpers is required for the patient to complete the activity. If activity was not attempted, code reason: 7-Patient Refused. 9-Not Applicable-not attempted and the patient did not perform the activity before the current illness, exacerbation or injury. 10-Not Attempted due to Environmental Limitations-(lack of equipment, weather restraints, etc.). 88-Not Attempted due to Medical Conditions or Safety Concerns. Sit to Stand (QC): 4 Weight Bearing Full Weight Bearing Full Weight Bearing Gait Training Does the Patient Walk?: Yes Distance: 20' Walk 10 feet (QC): 3 Gait Persons Needed: 1 Gait Assistive Device: Walker Steffen Pt is encouraged to use WBOS but narrows as pt walks. L knee jonathan at times. Wheelchair Training Does the Pt Use a Wheelchair?: Yes Wheel 50 ft with 2 turns (QC): 5 Wheel 150 ft (QC): 5 Type of Wheelchair: Manual Exercises Seated Therapy Exercises: Ankle pumps, Long arc quads, Hip flexion, Kicking activity Seated Reps: 15 Treatments Practices dynamic standing balance with clothespins to mimic dressing. Uses NuStep for 15m at WL 5 followed by short RB then Seated Ex. Pt asks to amb. using Steffen with WCH following. Pt propels WCH to room and TF to recliner to rest. All needs met, call light in hand. Assessment Current Status: Good Progress Pt is self motivated but fatigued by end of tx. PT Short Term Goals Short Term Goals Time Frame: Sep 18, 2020 Roll Left & Right: 6 Sit to lyin Lying to sitting on side of be: 3 Sit to stand: 3 Chair/tqp-ps-ghozm transfer: 3 Toilet transfer: 3 Walk 10 feet: 3 Wheel 50ft w/2 turns: 4 Wheel 150 feet: 4 PT High School Coach Goals Long-Term Goals PT Long-Term Goals Time Frame: Oct 02, 2020 Roll Left & Right (QC): 6 Sit to Lying (QC): 6 Lying-Sitting on Side/Bed(QC): 6 Sit to Stand (QC): 4 Chair/Czu-tw-Piryv Xfer(QC): 4 Toilet Transfer (QC): 4 Car Transfer (QC): 4 Does the Patient Walk: No and Walking Goal IS indicated Walk 10 feet (QC): 4 Walk 50ft with 2 Turns (QC): 4 Walk 150 ft (QC): 4 Walking 10ft on Uneven Surface: 4 1 Step (curb) (QC): 3 4 Steps (QC): 3 12 Steps (QC): 88 Picking up an Object (QC): 4 Wheel 50 feet with 2 turns (QC: 6 Wheel 150 feet: 6 PT Plan Problem List Problem List: Activity Tolerance, Functional Strength, Balance, Gait Treatment/Plan Treatment Plan: Continue Plan of Care Treatment Plan: Bed Mobility, Education, Functional Activity Francesca, Functional Strength, Group Therapy, Gait, Safety, Therapeutic Exercise, Transfers Treatment Duration: Sep 25, 2020 Frequency: At least 5 of 7 days/Wk (IRF) Estimated Hrs Per Day: 1.5 hours per day Patient and/or Family Agrees t: Yes Safety Risks/Education Patient Education: Gait Training, Transfer Techniques, Correct Positioning, Safety Issues Teaching Recipient: Patient Teaching Methods: Discussion Response to Teaching: Verbalize Understanding Time/GCodes Time In: 900 Time Out: 1015 Total Billed Treatment Time: 75 Total Billed Treatment 1, FA x2 (30m), EX x2 (30m) & GT (15m) ANAHY ENCARNACION CONTRACT ENGINEER Sep 24, 2020 10:25
--- NOTE | 2020-09-24 11:21 | Speech Therapy Daily Note ---
Speech Daily Progress Note Subjective Date Seen by Provider: Sep 24, 2020 Time Seen by Provider: 00:30 Patient was resting in his recliner following his other therapy. Patient states "it just wiped me out today." Objective Patient completed a series of safety awareness tasks related to his daily needs upon his return home at 80% with minimal cuing. Assessment Assessment Current Status: Good Progress Treatment Plan Continue Plan of Care Speech Short Term Goals Short Term Goals Short Term Goals 1) The patient will complete memory tasks related to her daily needs at 80% or g reater with minimal cues. 2) The patient will complete safety awareness tasks related to her daily needs at 80% or greater with minimal cues. 3) The patient will complete problem solving tasks related to her daily needs at 80% or greater with minimal cues. 4) The patient will complete OME for improving speech intelligibility. Speech Broach Operator Goals Shelter Goals Patient will improve cognitive and speech abilities in order to effectively meet his daily needs with minimal assist. Speech-Plan Patient/Family Goals Patient/Family Goals: Patient plans on returning to his home where he lives with his . Treatment Plan Speech Therapy Treatment Plan: Continue Plan of Care Treatment Duration: Sep 25, 2020 Frequency: 4 times per week (Patient will receive skilled ST 4-5x per week) Estimated Hrs Per Day: .5 hour per day Rehab Potential: Fair Barriers to Learning: Recent CVA, decreased retention of new information related to his ADL's and transfers Pt/Family Agrees to Plan: Yes Safety Risks/Education Teaching Recipient: Patient Teaching Methods: Demonstration, Discussion Response to Teaching: Verbalize Understanding, Return Demonstration Education Topics Provided: Continued safety within his room, communication of wants/needs Time Speech Therapy Time In: 10:30 Speech Therapy Time Out: 11:00 Total Billed Time: 30 Billed Treatment Time 1, YUVAL Flores Sep 24, 2020 11:21
--- NOTE | 2020-09-24 11:46 | PM&R Progress Note ---
Subjective HPI/CC On Admission Date Seen by Provider: Sep 24, 2020 Time Seen by Provider: 09:30 Subjective/Events-last exam 09/24/20: Bowels moved yesterday Reports that he just spills his urinal in bed but he is definitely incontinent Voltaren Gel will be given Participating in therapy 09/23/20: Pt had a crazy dream last night Remeron may cause that so will monitor that closely and may need to discontinue Bowels moved yesterday Incontinence is being managed by using the urinal 09/22/20: Loop recorder maintained Incontinence continues Bowels are moving well Swallowing pretty well I witnessed him actually walking with one-assist No falls 09/21/20: Patient improved No pain reported Incontinence will be managed with bladder routine 09/20/20: Saw patient in midst of bed linen change due to incontinence bladder Working with therapy No pain reported except shoulder 09/19/20: Patient a bit down in spirits today No pain No ETOH withdrawal No falls Incontinence noted 09/18/20: Improved status Gets frustrated easily Has bad days and good days Loop recorder placed so will DC Tely Incontinence noted 09/17/20: Bowels moved yesterday Incontinent a bit with bowel and bladder so will try to get on bladder emptying schedule a long with bowel regimen Was able to move and lift up his left arm with a lot of effort but was remarkable Pt improved and much better spirits today 09/16/20: Telemetry needs to be maintained until loop recorder is placed Will reach out to Dr. Walker tomorrow Incontinence is an issue so will try to work with him in the urinal positional hernadez to help him In significant denial Behavioral health consult Bowels moved yesterday Catastrophic stroke and his coping mechanism is no longer available with smoking and drinking so that is causing a significant issue 09/15/20: Bowels finally moved today Lifting left leg a bit Tolerating food intake without much dysphasia Psych evaluation will be provided because of anxiety and depression and situational grief reaction due to catastrophic stroke Pt overall is very depressed Labs are okay 09/14/20: Turn Q 2hours Refusing stool softners BM 09/10/20 Colace and Senna taken today 09/13/20: Advancing diet Moved left leg a bit today No function in left arm though Shower today and shave Crushing his meds with pudding since he did choke on thin liquids Advancing diet as tolerated Bowels moved two days ago Pt appears to be very chronically ill Conferred with RN Reviewed therapy notes Checked meds and labs Review of Systems General: Fatigue Neurological: Weakness, Incoordination Objective Exam Vital Signs Vital Signs Date Time Temp Pulse Resp B/P (MAP) Pulse Ox O2 Delivery O2 Flow Rate FiO2 09/25/20 05:24 36.6 62 18 112/65 (81) 98 Room Air Capillary Refill : Less Than 3 Seconds General Appearance: No Apparent Distress, WD/WN, Anxious, Chronically ill HEENT: PERRL/EOMI, Normal ENT Inspection, Pharynx Normal Neck: Full Range of Motion, Normal Inspection, Non Tender, Supple, Carotid Bruit Respiratory: Chest Non Tender, Lungs Clear, Normal Breath Sounds, No Accessory Muscle Use, No Respiratory Distress Cardiovascular: Regular Rate, Rhythm, No Edema, No Gallop, No JVD, No Murmur, Normal Peripheral Pulses Gastrointestinal: Normal Bowel Sounds, No Organomegaly, No Pulsatile Mass, Non Tender, Soft Back: Normal Inspection, No CVA Tenderness, No Vertebral Tenderness Extremity: Normal Capillary Refill, Normal Inspection, Normal Range of Motion (except left side weakness), Non Tender, No Calf Tenderness, No Pedal Edema Neurologic/Psychiatric: Alert, Oriented x3, Normal Mood/Affect, plaster form maker II-XII Norm as Tested, Abnormal Gait, Depressed Affect, Facial Droop (left), Motor Weakness (left sided flaccidity) Skin: Normal Color, Warm/Dry Lymphatic: No Adenopathy Results/Procedures Lab Patient resulted labs reviewed. FIM Transfers Therapy Code Descriptions/Definitions Functional [place] Measure: 0=Not Assessed/NA 4=Minimal Assistance 1=Total Assistance 5=Supervision or Setup 2=Maximal Assistance 6=Modified [place] 3=Moderate Assistance 7=Complete IndependenceSCALE: Activities may be completed with or without assistive devices. 2-Etvohquyhr-qynkicm completes the activity by him/herself with no assistance from a helper. 5-Set-up or Clean-up Assistance-helper sets up or cleans up; patient completes activity. [place] assists only prior to or following the activity. 4-Supervision or Touching Assistance-helper provides verbal cues and/or touching/steadying and/or contact guard assistance as patient completes activity. Assistance may be provided throughout the activity or intermittently. 3-Partial/Moderate Assistance-helper does LESS THAN HALF the effort. [place] lifts, holds or supports trunk or limbs, but provides less than half the effort. 2-Substantial/Maximal Assistance-helper does MORE THAN HALF the effort. [place] lifts or holds trunk or limbs and provides more than half the effort. 8-Ktaarhret-bgeejn does ALL the effort. Patient does none of the effort to comp lete the activity. Or, the assistance of 2 or more helpers is required for the patient to complete the activity. If activity was not attempted, code reason: 7-Patient Refused. 9-Not Applicable-not attempted and the patient did not perform the activity before the current illness, exacerbation or injury. 10-Not Attempted due to Environmental Limitations-(lack of equipment, weather restraints, etc.). 88-Not Attempted due to Medical Conditions or Safety Concerns. Roll Left to Right (QC): 5 Sit to Lying (QC): 3 Sit to Stand (QC): 4 Chair/Ecp-th-Dxdlq Xfer(QC): 3 Car Transfer (QC): 2 Gait Training Distance: 20' Walk 10 feet (QC): 3 Walk 50 ft with 2 Turns(QC): 3 Walk 150 ft (QC): 88 Walking 10ft/uneven surface-QC: 88 Gait Persons Needed: 1 Gait Assistive Device: Walker Steffen Wheelchair Training Distance: 150' Wheel 50 ft with 2 turns (QC): 5 Wheel 150 ft (QC): 5 Stair Training 1 Step (curb) (QC): 88 4 Steps (QC): 88 12 Steps (QC): 88 Balance Picking up an Object (QC): 88 ADL-Treatment Eating (QC): 5 (set up assistance, pt reports being able to use utensils, bring food to mouth, and eat.) Oral Hygiene (QC): 5 Shower/Bathe Self (QC): 3 (Min A sponge bath. ) Upper Body Dressing (QC): 4 Lower Body Dressing (QC): 3 On/Off Footwear (QC): 1 (total assist to don shoes.) Toileting Hygiene (QC): 1 (assist x2 for hygiene and clothing management) Toilet Transfer (QC): 3 (Mod A SPT from bed to BSC, and Mod A SPT from BSC to w/c.) Assessment/Plan Assessment and Plan Assess & Plan/Chief Complaint Assessment: Catastrophic CVA with left sided weakness Smoker COPD HTN Gout Neuropathy CRI Alcoholism Depression Anxiety Plan: IRF protocol Pain meds Baclofen Home meds Ativan for etoh withdrawal symptoms 09/12/20: Dysphagia screening Monitor for return of function left weakness 09/13/20: Left leg function a bit today Shower today Monitor closely 09/14/20: BM regimen Turn Q 2hours IRF protocol 09/15/20: Monitor BP Fall risk Monitor dysphagia and aspiration risk 09/16/20: Nicotine patch Monitor aspiration 09/17/20: Left arm improving dramatically No pain reported Improved status 09/18/20: Improved status Loop recorder DC Tely 09/19/20: Monitor closely Loop recorder site is less tender now Fall risk incontinence care 09/20/20: Incontinence care Monitor bowels Therapy to intensify 09/21/20: Monitor incontinence 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 to decrease alarm field technician burden 09/22/20: PT OT ST Incontinence 09/23/20: Monitor incontinence Monitor dreams may need to DC Remeron 09/24/20: Monitor incontinence Urinal spilling will need close monitoring (1) Acute CVA (cerebrovascular accident) Status: Acute (2) Left-sided weakness Status: Acute (3) Gout (4) Alcoholism Status: Chronic (5) Ulcer of great toe Status: Acute (6) 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
[2020-09-24 18:00] VITALS: BP 119/64
--- NOTE | 2020-09-24 21:00 | NUR ---
SWALLOWED SMALLER PILLS OKAY. STATES JUST NEEDS BIGGER PILLS CRUSHED.
[2020-09-24] MEDS: LORazepam 0.5 MG (ATIVAN) TABLET PO SCH (21:55)
[2020-09-24] MEDS: MIRTAZAPINE 15 MG (REMERON) TAB PO SCH (21:55)
--- NOTE | 2020-09-24 22:15 | NUR ---
ASSISTED BACK TO BED BY 2 NURSES. LEFT ARM FLACCID. STATES NEVER SLEEPS WELL. HAS BEEN MEDICATED WITH REMERON AND ATIVAN.
[2020-09-25 05:24] VITALS: BP 112/65
--- NOTE | 2020-09-25 06:00 | NUR ---
STATES RIGHT KNEE IS SWOLLEN. HAS HAD A PRIOR INJURY IN KNEE AND FEELS IS OVERUSING IT NOW SINCE UNABLE TO USE LEFT LEG.
[2020-09-25] MEDS: KCL 10 MEQ TAB (MICRO K) PO SCH (06:57)
[2020-09-25] MEDS: MULTIVIT W/MINERALS TAB (THERAGRAN M) PO SCH (06:57)
[2020-09-25] MEDS: THIAMINE 100 MG (VITAMIN B-1) TAB PO SCH (06:57)
--- NOTE | 2020-09-25 09:00 | Physical Therapy Daily Note ---
PT Daily Note-Current Subjective Patient in bed pre tx, agrees to PT, has been having some pain in right knee most likely due to increased use, needs to get dressed and put brief on, which is max assist. Appearance Patient in recliner post tx with nurse call, phone, tray, all needs met. Mental Status Patient Orientation: Person, Place, Situation Transfers SCALE: Activities may be completed with or without assistive devices. 0-Bpiwxvoehd-pqczupx completes the activity by him/herself with no assistance from a helper. 5-Set-up or Clean-up Assistance-helper sets up or cleans up; patient completes activity. [place] assists only prior to or following the activity. 4-Supervision or Touching Assistance-helper provides verbal cues and/or touching/steadying and/or contact guard assistance as patient completes activity. Assistance may be provided throughout the activity or intermittently. 3-Partial/Moderate Assistance-helper does LESS THAN HALF the effort. [place] lifts, holds or supports trunk or limbs, but provides less than half the effort. 2-Substantial/Maximal Assistance-helper does MORE THAN HALF the effort. [place] lifts or holds trunk or limbs and provides more than half the effort. 5-Zhszjqstp-holyvx does ALL the effort. Patient does none of the effort to c omplete the activity. Or, the assistance of 2 or more helpers is required for the patient to complete the activity. If activity was not attempted, code reason: 7-Patient Refused. 9-Not Applicable-not attempted and the patient did not perform the activity before the current illness, exacerbation or injury. 10-Not Attempted due to Environmental Limitations-(lack of equipment, weather restraints, etc.). 88-Not Attempted due to Medical Conditions or Safety Concerns. Roll Left & Right (QC): 3 Lying to Sitting/Side of Bed(Q: 3 Sit to Stand (QC): 3 Chair/Jbp-ia-Dsmrs Xfer(QC): 3 mod assist with sit to stand and transfers this morning, leaning more heavily to the left side. Weight Bearing Full Weight Bearing Full Weight Bearing Gait Training Distance: 75'x2 Walk 10 feet (QC): 3 Walk 50 ft with 2 Turns(QC): 3 Gait Persons Needed: 1 Gait Assistive Device: Walker Steffen mod assist, leans more to the left side, more difficulty advancing his left leg and needs more assist with balance and weight shifting Exercises standing in parallel bars working on balance x3 for about 3 minutes each time NuStep Minutes: 15 NuStep Workload: 4 Treatments dressing, ambulation, bed mobility and transfers, standing, functional strengthening Assessment Current Status: Poor Progress decline in balance PT Short Term Goals Short Term Goals Time Frame: Sep 18, 2020 Roll Left & Right: 6 Sit to lyin Lying to sitting on side of be: 3 Sit to stand: 3 Chair/niv-mw-jamlc transfer: 3 Toilet transfer: 3 Walk 10 feet: 3 Wheel 50ft w/2 turns: 4 Wheel 150 feet: 4 PT Senior Living Goals Senior Living Goals PT Senior Living Goals Time Frame: Oct 02, 2020 Roll Left & Right (QC): 6 Sit to Lying (QC): 6 Lying-Sitting on Side/Bed(QC): 6 Sit to Stand (QC): 4 Chair/Aud-oy-Rryit Xfer(QC): 4 Toilet Transfer (QC): 4 Car Transfer (QC): 4 Does the Patient Walk: No and Walking Goal IS indicated Walk 10 feet (QC): 4 Walk 50ft with 2 Turns (QC): 4 Walk 150 ft (QC): 4 Walking 10ft on Uneven Surface: 4 1 Step (curb) (QC): 3 4 Steps (QC): 3 12 Steps (QC): 88 Picking up an Object (QC): 4 Wheel 50 feet with 2 turns (QC: 6 Wheel 150 feet: 6 PT Plan Problem List Problem List: Activity Tolerance, Functional Strength, Safety, Balance, Gait, Transfer, Bed Mobility, ROM Treatment/Plan Treatment Plan: Continue Plan of Care Treatment Plan: Bed Mobility, Education, Functional Activity Francesca, Functional Strength, Group Therapy, Gait, Safety, Therapeutic Exercise, Transfers Treatment Duration: Sep 25, 2020 Frequency: At least 5 of 7 days/Wk (IRF) Estimated Hrs Per Day: 1.5 hours per day Patient and/or Family Agrees t: Yes Safety Risks/Education Patient Education: Gait Training, Transfer Techniques, Correct Positioning, Safety Issues Teaching Recipient: Patient Teaching Methods: Demonstration, Discussion Response to Teaching: Reinforcement Needed Time/GCodes Time In: 0800 Time Out: 0900 Total Billed Treatment Time: 60 Total Billed Treatment 1 visit GT 15' EX 20' FA 25' KRISTINE HAWK PT Sep 25, 2020 09:00
[2020-09-25] MEDS: amLODIPine 5 MG (NORVASC) TAB PO SCH (09:29)
[2020-09-25] MEDS: SENNA W/DOCUSATE (SENOKOT S) TABLET PO SCH ×2 (09:30→22:23)
[2020-09-25] MEDS: ASPIRIN E.C. 325 MG (ECOTRIN) TABLET PO SCH (09:30)
[2020-09-25] MEDS: ACETAMINOPHEN 500 MG TAB (TYLENOL) PO PRN (09:30)
[2020-09-25] MEDS: NICOTINE PATCH REMOVAL TP SCH (09:30)
[2020-09-25] MEDS: ATENOLOL 25 MG (TENORMIN) TAB PO SCH (09:30)
[2020-09-25] MEDS: FOLIC ACID 1 MG TAB PO SCH (09:30)
[2020-09-25] MEDS: NICOTINE 14 MG (NICODERM) PATCH TD SCH (09:31)
[2020-09-25] MEDS: MAGNESIUM OXIDE (MAG-OX)400 MG TAB PO SCH ×3 (09:31→17:44)
--- NOTE | 2020-09-25 09:31 | NUR ---
UNABLE TO SCAN MAGNESIUM OXIDE TABLET IN EMAR.
[2020-09-25] MEDS: DOCUSATE SODIUM 10 MG/ML 10 ML UDC (COLACE) NG SCH ×2 (09:42→22:24)
[2020-09-25] MEDS: polyethylene glycoL POWDER 17 GM (MIRALAX) PACK PO SCH ×2 (09:42→22:23)
--- NOTE | 2020-09-25 10:18 | Speech Therapy Daily Note ---
Speech Daily Progress Note Subjective Date Seen by Provider: Sep 25, 2020 Time Seen by Provider: 00:30 Patient was sitting in his recliner playing a card game on his tablet when I entered his room. Patient states he had some right leg swelling today which he thinks was caused from pushing so hard in PT yesterday. Objective Patient completed a series of OME for dysarthria at 90% with minimal cues. Assessment Assessment Current Status: Good Progress Treatment Plan Continue Plan of Care Speech Short Term Goals Short Term Goals Short Term Goals 1) The patient will complete memory tasks related to her daily needs at 80% or greater with minimal cues. 2) The patient will complete safety awareness tasks related to her daily needs at 80% or greater with minimal cues. 3) The patient will complete problem solving tasks related to her daily needs at 80% or greater with minimal cues. 4) The patient will complete OME for improving speech intelligibility. Speech Athletics Teacher Goals Residential Goals Patient will improve cognitive and speech abilities in order to effectively meet his daily needs with minimal assist. Speech-Plan Patient/Family Goals Patient/Family Goals: Patient plans on returning to his home where he lives with his . Treatment Plan Speech Therapy Treatment Plan: Continue Plan of Care Treatment Duration: Sep 25, 2020 Frequency: 4 times per week (Patient will receive skilled ST 4-5x per week) Estimated Hrs Per Day: .5 hour per day Rehab Potential: Fair Barriers to Learning: Patient's CVA, other medical issues Pt/Family Agrees to Plan: Yes Safety Risks/Education Teaching Recipient: Patient Teaching Methods: Demonstration, Discussion Response to Teaching: Verbalize Understanding, Return Demonstration Education Topics Provided: Continued safety of oral intake, continued OME without ST Time Speech Therapy Time In: 10:00 Speech Therapy Time Out: 10:30 Total Billed Time: 30 Billed Treatment Time 1, YUVAL AGUDELO Sep 25, 2020 10:18
--- NOTE | 2020-09-25 10:48 | PM&R Progress Note ---
Subjective HPI/CC On Admission Date Seen by Provider: Sep 25, 2020 Time Seen by Provider: 12:30 Subjective/Events-last exam 09/25/20: Pt complaining of right knee pain Denies any other significant issues Will check X-ray and consult orthopod for possible injections since he is flaccid on the left side and really needs the right knee to ambulate Will monitor pt closely 09/24/20: Bowels moved yesterday Reports that he just spills his urinal in bed but he is definitely incontinent Voltaren Gel will be given Participating in therapy 09/23/20: Pt had a crazy dream last night Remeron may cause that so will monitor that closely and may need to discontinue Bowels moved yesterday Incontinence is being managed by using the urinal 09/22/20: Loop recorder maintained Incontinence continues Bowels are moving well Swallowing pretty well I witnessed him actually walking with one-assist No falls 09/21/20: Patient improved No pain reported Incontinence will be managed with bladder routine 09/20/20: Saw patient in midst of bed linen change due to incontinence bladder Working with therapy No pain reported except shoulder 09/19/20: Patient a bit down in spirits today No pain No ETOH withdrawal No falls Incontinence noted 09/18/20: Improved status Gets frustrated easily Has bad days and good days Loop recorder placed so will DC Tely Incontinence noted 09/17/20: Bowels moved yesterday Incontinent a bit with bowel and bladder so will try to get on bladder emptying schedule a long with bowel regimen Was able to move and lift up his left arm with a lot of effort but was remarkable Pt improved and much better spirits today 09/16/20: Telemetry needs to be maintained until loop recorder is placed Will reach out to Dr. Walker tomorrow Incontinence is an issue so will try to work with him in the urinal positional hernadez to help him In significant denial Behavioral health consult Bowels moved yesterday Catastrophic stroke and his coping mechanism is no longer available with smoking and drinking so that is causing a significant issue 09/15/20: Bowels finally moved today Lifting left leg a bit Tolerating food intake without much dysphasia Psych evaluation will be provided because of anxiety and depression and situational grief reaction due to catastrophic stroke Pt overall is very depressed Labs are okay 09/14/20: Turn Q 2hours Refusing stool softners 09/10/20 Colace and Senna taken today 09/13/20: Advancing diet Moved left leg a bit today No function in left arm though Shower today and shave Crushing his meds with pudding since he did choke on thin liquids Advancing diet as tolerated Bowels moved two days ago Pt appears to be very chronically ill Conferred with RN Reviewed therapy notes Checked meds and labs Review of Systems General: Fatigue Musculoskeletal: leg pain Neurological: Weakness, Incoordination Objective Exam Vital Signs Vital Signs Date Time Temp Pulse Resp B/P (MAP) Pulse Ox O2 Delivery O2 Flow Rate FiO2 09/25/20 21:00 Room Air 09/25/20 17:30 36.9 73 20 111/61 (78) 97 Capillary Refill : Less Than 3 Seconds General Appearance: No Apparent Distress, WD/WN, Anxious, Chronically ill HEENT: PERRL/EOMI, Normal ENT Inspection, Pharynx Normal Neck: Full Range of Motion, Normal Inspection, Non Tender, Supple, Carotid Bruit Respiratory: Chest Non Tender, Lungs Clear, Normal Breath Sounds, No Accessory Muscle Use, No Respiratory Distress Cardiovascular: Regular Rate, Rhythm, No Edema, No Gallop, No JVD, No Murmur, Normal Peripheral Pulses Gastrointestinal: Normal Bowel Sounds, No Organomegaly, No Pulsatile Mass, Non Tender, Soft Back: Normal Inspection, No CVA Tenderness, No Vertebral Tenderness Extremity: Normal Capillary Refill, Normal Inspection, Normal Range of Motion (except left side weakness), Non Tender, No Calf Tenderness, No Pedal Edema Neurologic/Psychiatric: Alert, Oriented x3, Normal Mood/Affect, power technician II-XII Norm as Tested, Abnormal Gait, Depressed Affect, Facial Droop (left), Motor Weakness (left sided flaccidity) Skin: Normal Color, Warm/Dry Lymphatic: No Adenopathy Results/Procedures Lab Patient resulted labs reviewed. FIM Transfers Therapy Code Descriptions/Definitions Functional [place] Measure: 0=Not Assessed/NA 4=Minimal Assistance 1=Total Assistance 5=Supervision or Setup 2=Maximal Assistance 6=Modified [place] 3=Moderate Assistance 7=Complete IndependenceSCALE: Activities may be completed with or without assistive devices. 4-Rjwiekhvkc-qfnoghh completes the activity by him/herself with no assistance from a helper. 5-Set-up or Clean-up Assistance-helper sets up or cleans up; patient completes activity. [place] assists only prior to or following the activity. 4-Supervision or Touching Assistance-helper provides verbal cues and/or touching/steadying and/or contact guard assistance as patient completes activity. Assistance may be provided throughout the activity or intermittently. 3-Partial/Moderate Assistance-helper does LESS THAN HALF the effort. [place] lifts, holds or supports trunk or limbs, but provides less than half the effort. 2-Substantial/Maximal Assistance-helper does MORE THAN HALF the effort. [place] lifts or holds trunk or limbs and provides more than half the effort. 1-Hnsgtkgys-uwuaal does ALL the effort. Patient does none of the effort to complete the activity. Or, the assistance of 2 or more helpers is required for the patient to complete the activity. If activity was not attempted, code reason: 7-Patient Refused. 9-Not Applicable-not attempted and the patient did not perform the activity before the current illness, exacerbation or injury. 10-Not Attempted due to Environmental Limitations-(lack of equipment, weather restraints, etc.). 88-Not Attempted due to Medical Conditions or Safety Concerns. Roll Left to Right (QC): 3 Sit to Lying (QC): 3 Sit to Stand (QC): 3 Chair/Tiy-vp-Hewbu Xfer(QC): 3 Car Transfer (QC): 2 Gait Training Does the Patient Walk?: Yes Distance: 75'x2 Walk 10 feet (QC): 3 Walk 50 ft with 2 Turns(QC): 3 Walk 150 ft (QC): 88 Walking 10ft/uneven surface-QC: 88 Gait Persons Needed: 1 Gait Assistive Device: Walker Steffen Wheelchair Training Does the Pt Use a Wheelchair?: Yes Distance: 150' Wheel 50 ft with 2 turns (QC): 5 Wheel 150 ft (QC): 5 Type of Wheelchair: Manual Stair Training 1 Step (curb) (QC): 88 4 Steps (QC): 88 12 Steps (QC): 88 Balance Picking up an Object (QC): 88 ADL-Treatment Eating (QC): 5 (set up assistance, pt reports being able to use utensils, bring food to mouth, and eat.) Oral Hygiene (QC): 5 Shower/Bathe Self (QC): 3 (Min A sponge bath. ) Upper Body Dressing (QC): 4 Lower Body Dressing (QC): 3 On/Off Footwear (QC): 1 (total assist to don shoes.) Toileting Hygiene (QC): 1 (assist x2 for hygiene and clothing management) Toilet Transfer (QC): 3 (Mod A SPT from bed to BSC, and Mod A SPT from BSC to w/c.) Assessment/Plan Assessment and Plan Assess & Plan/Chief Complaint Assessment: Catastrophic CVA with left sided weakness Smoker COPD HTN Gout Neuropathy CRI Alcoholism Depression Anxiety Plan: IRF protocol Pain meds Baclofen Home meds Ativan for etoh withdrawal symptoms 09/12/20: Dysphagia screening Monitor for return of function left weakness 09/13/20: Left leg function a bit today Shower today Monitor closely 09/14/20: BM regimen Turn Q 2hours IRF protocol 09/15/20: Monitor BP Fall risk Monitor dysphagia and aspiration risk 09/16/20: Nicotine patch Monitor aspiration 09/17/20: Left arm improving dramatically No pain reported Improved status 09/18/20: Improved status Loop recorder DC Tely 09/19/20: Monitor closely Loop recorder site is less tender now Fall risk incontinence care 09/20/20: Incontinence care Monitor bowels Therapy to intensify 09/21/20: Monitor incontinence 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 to decrease junior database administrator burden 09/22/20: PT OT ST Incontinence 09/23/20: Monitor incontinence Monitor dreams may need to DC Remeron 09/24/20: Monitor incontinence Urinal spilling will need close monitoring 09/25/20: Right knee eval by Dr Huang team Check xrays (1) Acute CVA (cerebrovascular accident) Status: Acute (2) Left-sided weakness Status: Acute (3) Gout (4) Alcoholism Status: Chronic (5) Ulcer of great toe Status: Acute (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
--- NOTE | 2020-09-25 10:48 | Occupational Ther Daily Note ---
OT Current Status-Daily Note Subjective Pt reports soreness in R knee, he feels like it may be swollen. Pt requests sponge bath, stating he wants to shower tomorrow before the weekend. Mental Status/Objective Patient Orientation: Person, Place, Time, Situation ADL-Treatment Therapy Code Descriptions/Definitions Functional [place] Measure: 0=Not Assessed/NA 4=Minimal Assistance 1=Total Assistance 5=Supervision or Setup 2=Maximal Assistance 6=Modified [place] 3=Moderate Assistance 7=Complete IndependenceSCALE: Activities may be completed with or without assistive devices. 8-Kyclztknth-pjiliqf completes the activity by him/herself with no assistance from a helper. 5-Set-up or Clean-up Assistance-helper sets up or cleans up; patient completes activity. [place] assists only prior to or following the activity. 4-Supervision or Touching Assistance-helper provides verbal cues and/or touching/steadying and/or contact guard assistance as patient completes activity. Assistance may be provided throughout the activity or intermittently. 3-Partial/Moderate Assistance-helper does LESS THAN HALF the effort. [place] lifts, holds or supports trunk or limbs, but provides less than half the effort. 2-Substantial/Maximal Assistance-helper does MORE THAN HALF the effort. [place] lifts or holds trunk or limbs and provides more than half the effort. 4-Ccnbpuaoi-xoxzmv does ALL the effort. Patient does none of the effort to complete the activity. Or, the assistance of 2 or more helpers is required for the patient to complete the activity. If activity was not attempted, code reason: 7-Patient Refused. 9-Not Applicable-not attempted and the patient did not perform the activity before the current illness, exacerbation or injury. 10-Not Attempted due to Environmental Limitations-(lack of equipment, weather restraints, etc.). 88-Not Attempted due to Medical Conditions or Safety Concerns. Oral Hygiene (QC): 5 (set up at tray table) Shower/Bathe Self (QC): 3 (Mod A standing balance as pt washed buttocks. Pt able to wash/dry all other parts seated, with min verbal cues for sequencing/techniques. Pt used long handled sponge to wash RUE.) Upper Body Dressing (QC): 4 (min verbal cues to don/doff pan puller shirt.) Lower Body Dressing (QC): 3 (Min A with task. Pt required mod A in stand at sherrie-walker to manage pants up/down. pt able to doff over feet, and treat onto feet, min A for pant hike on L side. ) On/Off Footwear: 4 (Pt able to doff/don socks/shoes using figure 4 method. ) Other Treatment Pt seated in recliner, agreeable to OT tx with focus on ADLs. Pt completed sponge bath and dressing at recliner level. Pt required mod A in stands at hemiwalker in order to wash buttocks and manage pants. Pt able to wash/dry other parts in sitting, with min verbal cues to recall techniques to wash LEs and to wash RUE using long handled sponge. Pt able to don shirt with min verbal cues to recall hemiplegic dressing techniques. Pt completed lower body dressing using figure 4 method, without AE. OT replaced pt's shoe laces with adaptive elastic laces with pt's consent. Pt then able to complete footwear with SBA, using figure 4 method. Pt brushes teeth at tray table with set up assistance. Pt indicates he feels better about his progress in today's therapy session. Pt agreeable to completing shower tomorrow. Post OT tx, pt seated in recliner, call light in reach and all needs met. Education OT Patient Education: Correct positioning, Modified ADL techniques, Progress toward Goal/Update tx plan, Purpose of tx/functional activities Teaching Recipient: Patient Teaching Methods: Discussion Response to Teaching: Verbalize Understanding OT Physics Technical Officer Goals Custodial Goals Time Frame: Oct 03, 2020 Eating (QC): 6 Oral Hygiene (QC): 6 Toileting Hygiene (QC): 4 Shower/Bathe Self (QC): 4 Upper Body Dressing (QC): 6 Lower Body Dressing (QC): 4 On/Off Footwear (QC): 4 Additional Goals: 1-Demonstrate ADL Tasks, 2-Verbalize Understanding, 3-Im proveStrength/Francesca 1=Demonstrate adherence to instructed precautions during ADL tasks. 2=Patient will verbalize/demonstrate understanding of assistive devices/modifications for ADL. 3=Patient will improve strength/tolerance for activity to enable patient to perform ADL's. OT Education/Plan Problem List/Assessment Assessment: Decreased Activ Tolerance, Decreased UE Strength, Impaired Funct Balance, Impaired I ADL's, Impaired Self-Care Skills, Restricted Funct UE ROM Discharge Recommendations Plan/Recommendations: Continue POC Treatment Plan/Plan of Care Patient would benefit from OT for education, treatment and training to promote independence in ADL's, mobility, safety and/or upper extremity function for ADL's. Plan of Care: ADL Retraining, Functional Mobility, Group Exercise/Act as Ind, UE Funct Exercise/Act, UE Neuromus Re-Ed/Coord Treatment Duration: Oct 03, 2020 Frequency: At least 5 of 7 days/Wk (IRF) Estimated Hrs Per Day: 1.5 hours per day Agreement: Yes Rehab Potential: Fair Time/GCodes Start Time: 10:30 Stop Time: 11:45 Total Time Billed (hr/min): 75 Billed Treatment Time 1, ADL 5 (75') WILFREDO CORLEY OT Sep 25, 2020 10:48
--- NOTE | 2020-09-25 12:54 | NUR ---
"RD ASSESSMENT PMHx: severe ETOHism; COPD; emphysema; pneumonia; HTN; renal failure; chronic diarrhea; gout; PT INTERACTION: Pt was awake and pleasant during nutrition follow-up. Pt states he has been eating well since last assessment. Note avg PO intake 96% x4d, per chart review. Pt states no issues with nausea, vomiting, constipation, or diarrhea since last assessment. Note last BM was 09/25, and pt currently on bowel regimen of colace BID, senna BID, and miralax BID, per chart review. ABNORMAL NUTRITION-RELATED LAB VALUES LOW: HIGH: BUN 26; AST 49 Est. kcal needs: 6102-7933 kcal | 20-25 kcal/kg Est. Pro needs: 72-90 g Pro | 0.8-1.0 g Pro/kg PES STATEMENT: Given current appetite and PO intake, no nutrition diagnosis at this time (NO-1.1). INTERVENTION: Continue with current diet order of Regular diet. Will continue to follow and reassess as pt needs, intake, and status change. Anais Larsen, MS RD LD"
--- NOTE | 2020-09-25 14:10 | NUR ---
CM/SS PATIENT CARE CONFERENCE Reviewed Summary with patient and left for him to read at his leisure. He had no questions, document signed and charted. Patient/spouse understand his next review will be October 01. Discharge planning conversation with patient and including spouse Steffany by phone. Scheduled Steffany for observation/training/education with team September 29 at 1000. Notified house painting instructor, Therapy Slabber, and [facility]U /Jordana and KENNEDI/RosemarySteffany to be approved for visit due to Covid no-visitor protocols. Patient continues to express he wants to do better and be more independent. He did note specific improvements in his abilities to dress himself. The team is aware of his strong desire to be able to manage a urinal and avoid incontinency. A ramp has been discussed each week, patient and spouse aware of rental options. DME: Anticipate wheelchair and FWW, perhaps dressing stick and sock aid.
--- NOTE | 2020-09-25 14:16 | Diagnostic Imaging Report ---
INDICATION: Right knee pain. TIME OF EXAM: 01:57 p.m. TECHNIQUE: Three views of the right knee were obtained. FINDINGS: There is medial and patellofemoral compartmental degenerative change with joint space narrowing and marginal spurring. There is spurring of the tibial spines. No fracture, dislocation, or effusion is seen. IMPRESSION: Degenerative changes. No acute bony abnormality is detected. Dictated by: Dictated on workstation # [id number]
--- NOTE | 2020-09-25 14:45 | Physical Therapy Daily Note ---
PT Daily Note-Current Subjective Patient in recliner pre tx, agrees to PT, no complaints of pain at rest but does have pain in right knee with weight bearing. Appearance Patient in recliner post tx with nurse call,phone, tray, all needs met. Mental Status Patient Orientation: Person, Place, Situation Transfers SCALE: Activities may be completed with or without assistive devices. 0-Dtggxzslkz-klmudlm completes the activity by him/herself with no assistance from a helper. 5-Set-up or Clean-up Assistance-helper sets up or cleans up; patient completes activity. [place] assists only prior to or following the activity. 4-Supervision or Touching Assistance-helper provides verbal cues and/or touching/steadying and/or contact guard assistance as patient completes act ivity. Assistance may be provided throughout the activity or intermittently. 3-Partial/Moderate Assistance-helper does LESS THAN HALF the effort. [place] lifts, holds or supports trunk or limbs, but provides less than half the effort. 2-Substantial/Maximal Assistance-helper does MORE THAN HALF the effort. [place] lifts or holds trunk or limbs and provides more than half the effort. 7-Grxhjwufb-twgkub does ALL the effort. Patient does none of the effort to complete the activity. Or, the assistance of 2 or more helpers is required for the patient to complete the activity. If activity was not attempted, code reason: 7-Patient Refused. 9-Not Applicable-not attempted and the patient did not perform the activity before the current illness, exacerbation or injury. 10-Not Attempted due to Environmental Limitations-(lack of equipment, weather restraints, etc.). 88-Not Attempted due to Medical Conditions or Safety Concerns. Sit to Stand (QC): 3 Chair/Scn-qx-Rmitc Xfer(QC): 3 Weight Bearing Full Weight Bearing Full Weight Bearing Gait Training Distance: 75'x2 Walk 10 feet (QC): 3 Walk 50 ft with 2 Turns(QC): 3 Gait Assistive Device: Walker Steffen Min assist with balance and weight shifting, improved from this morning. Treatments transfers, ambulation Assessment Current Status: Fair Progress improved balance from this morning PT Short Term Goals Short Term Goals Time Frame: Sep 18, 2020 Roll Left & Right: 6 Sit to lyin Lying to sitting on side of be: 3 Sit to stand: 3 Chair/ovs-wi-qkrgq transfer: 3 Toilet transfer: 3 Walk 10 feet: 3 Wheel 50ft w/2 turns: 4 Wheel 150 feet: 4 PT Handle Lathe Operator Goals Retirement Goals PT Retirement Goals Time Frame: Oct 02, 2020 Roll Left & Right (QC): 6 Sit to Lying (QC): 6 Lying-Sitting on Side/Bed(QC): 6 Sit to Stand (QC): 4 Chair/Wjk-ad-Rlpxz Xfer(QC): 4 Toilet Transfer (QC): 4 Car Transfer (QC): 4 Does the Patient Walk: No and Walking Goal IS indicated Walk 10 feet (QC): 4 Walk 50ft with 2 Turns (QC): 4 Walk 150 ft (QC): 4 Walking 10ft on Uneven Surface: 4 1 Step (curb) (QC): 3 4 Steps (QC): 3 12 Steps (QC): 88 Picking up an Object (QC): 4 Wheel 50 feet with 2 turns (QC: 6 Wheel 150 feet: 6 PT Plan Problem List Problem List: Activity Tolerance, Functional Strength, Safety, Balance, Gait, Transfer, Bed Mobility, ROM Treatment/Plan Treatment Plan: Continue Plan of Care Treatment Plan: Bed Mobility, Education, Functional Activity Francesca, Functional Strength, Group Therapy, Gait, Safety, Therapeutic Exercise, Transfers Treatment Duration: Sep 25, 2020 Frequency: At least 5 of 7 days/Wk (IRF) Estimated Hrs Per Day: 1.5 hours per day Patient and/or Family Agrees t: Yes Safety Risks/Education Patient Education: Gait Training, Transfer Techniques, Correct Positioning, Safety Issues Teaching Recipient: Patient Teaching Methods: Demonstration, Discussion Response to Teaching: Reinforcement Needed Time/GCodes Time In: 1410 Time Out: 1425 Total Billed Treatment Time: 15 Total Billed Treatment 1 visit GT 15' KRISTINE HAWK PT Sep 25, 2020 14:45
[2020-09-25] MEDS: CALCIUM CARBONATE 500 MG (TUMS) TAB.CHEW PO PRN (15:47)
[2020-09-25 17:30] VITALS: BP 111/61
--- NOTE | 2020-09-25 20:25 | CONSULTATION REPORT ---
DATE OF SERVICE: REASON FOR CONSULTATION: Right knee pain. HISTORY OF PRESENT ILLNESS: The patient is a 59-year-old gentleman who sustained a cerebrovascular accident on 09/09/2020. He is a left sided hemiparetic subsequent to this. He reports difficulty with ambulation. currently because of right knee pain and swelling. He is obviously having to favor his left side and the right knee is taking more of the load. He reports he had swelling in his knee off and on since childhood. He denies any recent injuries. PHYSICAL EXAMINATION: Right knee demonstrates moderate effusions, tender along his medial joint line. He has patellofemoral crepitus and pain with patellar loading. No varus valgus laxity. Negative anterior and posterior drawer. There is no erythema or warmth. RADIOGRAPHS: Reveal moderate medial and patellofemoral joint space narrowing. CLINICAL IMPRESSION: Right knee osteoarthritis with flare secondary to overuse. PLAN: After discussion of options with the patient, he elected to proceed with an intra-articular injection. This was performed under sterile conditions with 3 mL of lidocaine and 80 mg of Depo-Medrol. We will see him as an outpatient as needed. Thank you for the consultation. Job ID: [id number] DocumentID: [id number] Dictated Date: 09/25/2020 16:57:54 Overhead Crane Technician Date: 09/25/2020 20:24:57 Dictated By: PARVEEN HARTMANN MD
[2020-09-25] MEDS: LORazepam 0.5 MG (ATIVAN) TABLET PO SCH (22:24)
[2020-09-25] MEDS: MIRTAZAPINE 15 MG (REMERON) TAB PO SCH (22:25)
[2020-09-26 06:00] VITALS: BP 126/62
[2020-09-26] MEDS: MULTIVIT W/MINERALS TAB (THERAGRAN M) PO SCH (06:35)
[2020-09-26] MEDS: KCL 10 MEQ TAB (MICRO K) PO SCH (06:35)
[2020-09-26] MEDS: THIAMINE 100 MG (VITAMIN B-1) TAB PO SCH (06:35)
--- NOTE | 2020-09-26 08:55 | Physical Therapy Daily Note ---
PT Daily Note-Current Subjective Patient in bed pre tx, agrees to PT, has 5/10 pain in right knee. Patient had a shot in his right knee yesterday to decrease inflammation and pain, he says it has helped some but still has significant pain. Patient needs dressed and does so with max assist. Appearance Patient in recliner post tx with nurse call,phone, tray, all needs met. Mental Status Patient Orientation: Person, Place, Situation Transfers SCALE: Activities may be completed with or without assistive devices. 8-Euloydtuhy-hfyzvgi completes the activity by him/herself with no assistance from a helper. 5-Set-up or Clean-up Assistance-helper sets up or cleans up; patient completes activity. [place] assists only prior to or following the activity. 4-Supervision or Touching Assistance-helper provides verbal cues and/or touching/steadying and/or contact guard assistance as patient completes activity. Assistance may be provided throughout the activity or intermittently. 3-Partial/Moderate Assistance-helper does LESS THAN HALF the effort. [place] lifts, holds or supports trunk or limbs, but provides less than half the effort. 2-Substantial/Maximal Assistance-helper does MORE THAN HALF the effort. [place] lifts or holds trunk or limbs and provides more than half the effort. 4-Rmtqekivi-beznqs does ALL the effort. Patient does none of the effort to complete the activity. Or, the assistance of 2 or more helpers is required for the patient to complete the activity. If activity was not attempted, code reason: 7-Patient Refused. 9-Not Applicable-not attempted and the patient did not perform the activity before the current illness, exacerbation or injury. 10-Not Attempted due to Environmental Limitations-(lack of equipment, weather restraints, etc.). 88-Not Attempted due to Medical Conditions or Safety Concerns. Roll Left & Right (QC): 3 Sit to Lying (QC): 3 Lying to Sitting/Side of Bed(Q: 3 Sit to Stand (QC): 3 Chair/Bko-bl-Oryol Xfer(QC): 3 more difficulty with transfers due to right knee pain Weight Bearing Full Weight Bearing Full Weight Bearing Wheelchair Training Does the Pt Use a Wheelchair?: Yes Wheel 50 ft with 2 turns (QC): 3 Wheel 150 ft (QC): 3 Type of Wheelchair: Manual 200'x2 Exercises Supine Ex: Ankle pumps, Quad Set, Glut sets, Heel Slides (AAROM), Short Arc Quads (AAROM), Straight leg raise (AAROM), Hip abd/add (AAROM) Supine Reps: 20 NuStep Minutes: 15 NuStep Workload: 3 (less resistance due to right knee pain) Treatments bed mobility and transfers, dressing, WC mobility, functional strengthening Assessment Current Status: Fair Progress slowly improving functional mobility but knee pain has caused a decline today PT Short Term Goals Short Term Goals Time Frame: Sep 18, 2020 Roll Left & Right: 6 Sit to lyin Lying to sitting on side of be: 3 Sit to stand: 3 Chair/qzi-kl-jfzca transfer: 3 Toilet transfer: 3 Walk 10 feet: 3 Wheel 50ft w/2 turns: 4 Wheel 150 feet: 4 PT Skilled Nursing Goals Skilled Nursing Goals PT Voltage Regulator Assembler Goals Time Frame: Oct 02, 2020 Roll Left & Right (QC): 6 Sit to Lying (QC): 6 Lying-Sitting on Side/Bed(QC): 6 Sit to Stand (QC): 4 Chair/Xam-fh-Ztdbe Xfer(QC): 4 Toilet Transfer (QC): 4 Car Transfer (QC): 4 Does the Patient Walk: No and Walking Goal IS indicated Walk 10 feet (QC): 4 Walk 50ft with 2 Turns (QC): 4 Walk 150 ft (QC): 4 Walking 10ft on Uneven Surface: 4 1 Step (curb) (QC): 3 4 Steps (QC): 3 12 Steps (QC): 88 Picking up an Object (QC): 4 Wheel 50 feet with 2 turns (QC: 6 Wheel 150 feet: 6 PT Plan Problem List Problem List: Activity Tolerance, Functional Strength, Safety, Balance, Gait, Transfer, Bed Mobility, ROM Treatment/Plan Treatment Plan: Continue Plan of Care Treatment Plan: Bed Mobility, Education, Functional Activity Francesca, Functional Strength, Group Therapy, Gait, Safety, Therapeutic Exercise, Transfers Treatment Duration: Sep 25, 2020 Frequency: At least 5 of 7 days/Wk (IRF) Estimated Hrs Per Day: 1.5 hours per day Patient and/or Family Agrees t: Yes Safety Risks/Education Patient Education: Transfer Techniques, Correct Positioning, W/C Management, Safety Issues Teaching Recipient: Patient Teaching Methods: Demonstration, Discussion Response to Teaching: Reinforcement Needed Time/GCodes Time In: 0800 Time Out: 0900 Total Billed Treatment Time: 60 Total Billed Treatment 1 visit EX 30' FA 30' KRISTINE HAWK PT Sep 26, 2020 08:55
[2020-09-26] MEDS: ASPIRIN E.C. 325 MG (ECOTRIN) TABLET PO SCH (09:04)
[2020-09-26] MEDS: NICOTINE 14 MG (NICODERM) PATCH TD SCH (09:04)
[2020-09-26] MEDS: FOLIC ACID 1 MG TAB PO SCH (09:05)
[2020-09-26] MEDS: MAGNESIUM OXIDE (MAG-OX)400 MG TAB PO SCH ×2 (09:05→18:01)
[2020-09-26] MEDS: amLODIPine 5 MG (NORVASC) TAB PO SCH (09:05)
[2020-09-26] MEDS: polyethylene glycoL POWDER 17 GM (MIRALAX) PACK PO SCH ×2 (09:05→22:17)
[2020-09-26] MEDS: DOCUSATE SODIUM 10 MG/ML 10 ML UDC (COLACE) NG SCH ×2 (09:05→22:16)
[2020-09-26] MEDS: ATENOLOL 25 MG (TENORMIN) TAB PO SCH (09:05)
[2020-09-26] MEDS: SENNA W/DOCUSATE (SENOKOT S) TABLET PO SCH ×2 (09:05→22:17)
[2020-09-26] MEDS: NICOTINE PATCH REMOVAL TP SCH (09:05)
--- NOTE | 2020-09-26 11:05 | Occupational Ther Daily Note ---
OT Current Status-Daily Note Subjective Pt seated in recliner, agreeable to OT tx. Pt feels like his legs aren't moving as good today. ADL-Treatment Therapy Code Descriptions/Definitions Functional [place] Measure: 0=Not Assessed/NA 4=Minimal Assistance 1=Total Assistance 5=Supervision or Setup 2=Maximal Assistance 6=Modified [place] 3=Moderate Assistance 7=Complete IndependenceSCALE: Activities may be completed with or without assistive devices. 6-Yofaduzups-gqefaeh completes the activity by him/herself with no assistance from a helper. 5-Set-up or Clean-up Assistance-helper sets up or cleans up; patient completes activity. [place] assists only prior to or following the activity. 4-Supervision or Touching Assistance-helper provides verbal cues and/or touching/steadying and/or contact guard assistance as patient completes activity. Assistance may be provided throughout the activity or intermittently. 3-Partial/Moderate Assistance-helper does LESS THAN HALF the effort. [place] lifts, holds or supports trunk or limbs, but provides less than half the effort. 2-Substantial/Maximal Assistance-helper does MORE THAN HALF the effort. [place] lifts or holds trunk or limbs and provides more than half the effort. 1-Zliqqgxwg-uiunbp does ALL the effort. Patient does none of the effort to complete the activity. Or, the assistance of 2 or more helpers is required for the patient to complete the activity. If activity was not attempted, code reason: 7-Patient Refused. 9-Not Applicable-not attempted and the patient did not perform the activity before the current illness, exacerbation or injury. 10-Not Attempted due to Environmental Limitations-(lack of equipment, weather restraints, etc.). 88-Not Attempted due to Medical Conditions or Safety Concerns. Shower/Bathe Self (QC): 4 (SBA, pt washed/dried all parts seated on SC. 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 Mod A standing balance at sherrie-walker. Min A for pant hike on R side.) On/Off Footwear: 4 (Moderate cues to don/doff shoes/socks.) Toileting Hygiene (QC): 1 (Pt required assistance managing clothing down/up, and assistance with hygiene) Toilet Transfer (QC): 2 (Max A, pt had poor carry over of stand pivot transfer between w/c and toilet. Max verbal cues with transfer.) Other Treatment Pt seated in recliner, completed SPT from recliner to w/c on R side. Pt taken into the bathroom where he asked to use the toilet. OT set up for stand pivot transfer, pt had poor carryover of stand pivot transfer between w/c and toilet, requiring max verbal cues and multiple sit to stands. OT then placed BSC over toilet so pt hand arm rests to assist with transfer, pt SPT from w/c to BSC over toilet. Pt completed toileting, requiring assistance with hygiene as he leaned forward. Pt doffed lower body clothing, transferring back to w/c. Pt positioned for transfer between w/c and NE, pt then completed SPT using grab bars with mod A. Pt completed showering, washing/drying all parts with SBA, then transferred back to w/c to don clothes. Pt sat at sink to comb his hair independently, then transferred from w/c to recliner via SPT. Once at recliner, pt donned shoes. Post OT tx, pt seated in recliner, call light in reach and all needs met. Education OT Patient Education: Correct positioning, Energy conservation, Modified ADL techniques, Progress toward Goal/Update tx plan, Purpose of tx/functional activities, Safety issues, Transfer techniques Teaching Recipient: Patient Teaching Methods: Discussion Response to Teaching: Verbalize Understanding OT Custodial Goals Custodial Goals Time Frame: Oct 03, 2020 Eating (QC): 6 Oral Hygiene (QC): 6 Toileting Hygiene (QC): 4 Shower/Bathe Self (QC): 4 Upper Body Dressing (QC): 6 Lower Body Dressing (QC): 4 On/Off Footwear (QC): 4 Additional Goals: 1-Demonstrate ADL Tasks, 2-Verbalize Understanding, 3- ImproveStrength/Francesca 1=Demonstrate adherence to instructed precautions during ADL tasks. 2=Patient will verbalize/demonstrate understanding of assistive devices/modifications for ADL. 3=Patient will improve strength/tolerance for activity to enable patient to perform ADL's. OT Education/Plan Problem List/Assessment Assessment: Decreased Activ Tolerance, Decreased UE Strength, Impaired Funct Balance, Impaired I ADL's, Impaired Self-Care Skills, Restricted Funct UE ROM Discharge Recommendations Plan/Recommendations: Continue POC Treatment Plan/Plan of Care Patient would benefit from OT for education, treatment and training to promote independence in ADL's, mobility, safety and/or upper extremity function for ADL's. Plan of Care: ADL Retraining, Functional Mobility, Group Exercise/Act as Ind, UE Funct Exercise/Act, UE Neuromus Re-Ed/Coord Treatment Duration: Oct 03, 2020 Frequency: At least 5 of 7 days/Wk (IRF) Estimated Hrs Per Day: 1.5 hours per day Agreement: Yes Rehab Potential: Fair Time/GCodes Start Time: 10:30 Stop Time: 12:00 Total Time Billed (hr/min): 90 Billed Treatment Time 1, ADL 6 WILFREDO CORLEY OT Sep 26, 2020 11:05
--- NOTE | 2020-09-26 12:28 | PM&R Progress Note ---
Subjective HPI/CC On Admission Date Seen by Provider: Sep 26, 2020 Time Seen by Provider: 12:30 Subjective/Events-last exam 09/26/20: Right knee about the same since knee infection No falls Incontinence continues Monitoring closely 09/25/20: Pt complaining of right knee pain Denies any other significant issues Will check X-ray and consult orthopod for possible injections since he is flaccid on the left side and really needs the right knee to ambulate Will monitor pt closely 09/24/20: Bowels moved yesterday Reports that he just spills his urinal in bed but he is definitely incontinent Voltaren Gel will be given Participating in therapy 09/23/20: Pt had a crazy dream last night Remeron may cause that so will monitor that closely and may need to discontinue Bowels moved yesterday Incontinence is being managed by using the urinal 09/22/20: Loop recorder maintained Incontinence continues Bowels are moving well Swallowing pretty well I witnessed him actually walking with one-assist No falls 09/21/20: Patient improved No pain reported Incontinence will be managed with bladder routine 09/20/20: Saw patient in midst of bed linen change due to incontinence bladder Working with therapy No pain reported except shoulder 09/19/20: Patient a bit down in spirits today No pain No ETOH withdrawal No falls Incontinence noted 09/18/20: Improved status Gets frustrated easily Has bad days and good days Loop recorder placed so will DC Tely Incontinence noted 09/17/20: Bowels moved yesterday Incontinent a bit with bowel and bladder so will try to get on bladder emptying schedule a long with bowel regimen Was able to move and lift up his left arm with a lot of effort but was remarkable Pt improved and much better spirits today 09/16/20: Telemetry needs to be maintained until loop recorder is placed Will reach out to Dr. Walker tomorrow Incontinence is an issue so will try to work with him in the urinal positional hernadez to help him In significant denial Behavioral health consult Bowels moved yesterday Catastrophic stroke and his coping mechanism is no longer available with smoking and drinking so that is causing a significant issue 09/15/20: Bowels finally moved today Lifting left leg a bit Tolerating food intake without much dysphasia Psych evaluation will be provided because of anxiety and depression and situational grief reaction due to catastrophic stroke Pt overall is very depressed Labs are okay 09/14/20: Turn Q 2hours Refusing stool softners BM 09/10/20 Colace and Senna taken today 09/13/20: Advancing diet Moved left leg a bit today No function in left arm though Shower today and shave Crushing his meds with pudding since he did choke on thin liquids Advancing diet as tolerated Bowels moved two days ago Pt appears to be very chronically ill Conferred with RN Reviewed therapy notes Checked meds and labs Review of Systems General: Fatigue, Malaise Neurological: Weakness, Incoordination Objective Exam Vital Signs Vital Signs Date Time Temp Pulse Resp B/P (MAP) Pulse Ox O2 Delivery O2 Flow Rate FiO2 09/27/20 05:09 36.4 75 16 135/71 (92) 97 Room Air Capillary Refill : Less Than 3 Seconds General Appearance: No Apparent Distress, WD/WN, Anxious, Chronically ill HEENT: PERRL/EOMI, Normal ENT Inspection, Pharynx Normal Neck: Full Range of Motion, Normal Inspection, Non Tender, Supple, Carotid Bruit Respiratory: Chest Non Tender, Lungs Clear, Normal Breath Sounds, No Accessory Muscle Use, No Respiratory Distress Cardiovascular: Regular Rate, Rhythm, No Edema, No Gallop, No JVD, No Murmur, Normal Peripheral Pulses Gastrointestinal: Normal Bowel Sounds, No Organomegaly, No Pulsatile Mass, Non Tender, Soft Back: Normal Inspection, No CVA Tenderness, No Vertebral Tenderness Extremity: Normal Capillary Refill, Normal Inspection, Normal Range of Motion (except left side weakness), Non Tender, No Calf Tenderness, No Pedal Edema Neurologic/Psychiatric: Alert, Oriented x3, Normal Mood/Affect, librarian helper II-XII Norm as Tested, Abnormal Gait, Depressed Affect, Facial Droop (left), Motor Weakness (left sided flaccidity) Skin: Normal Color, Warm/Dry Lymphatic: No Adenopathy Results/Procedures Lab Patient resulted labs reviewed. FIM Transfers Therapy Code Descriptions/Definitions Functional [place] Measure: 0=Not Assessed/NA 4=Minimal Assistance 1=Total Assistance 5=Supervision or Setup 2=Maximal Assistance 6=Modified [place] 3=Moderate Assistance 7=Complete IndependenceSCALE: Activities may be completed with or without assistive devices. 1-Ysfluuoymx-igyovmo completes the activity by him/herself with no assistance from a helper. 5-Set-up or Clean-up Assistance-helper sets up or cleans up; patient completes activity. [place] assists only prior to or following the activity. 4-Supervision or Touching Assistance-helper provides verbal cues and/or touching/steadying and/or contact guard assistance as patient completes activity. Assistance may be provided throughout the activity or intermittently. 3-Partial/Moderate Assistance-helper does LESS THAN HALF the effort. [place] lifts, holds or supports trunk or limbs, but provides less than half the effort. 2-Substantial/Maximal Assistance-helper does MORE THAN HALF the effort. [place] lifts or holds trunk or limbs and provides more than half the effort. 9-Yjwhivezx-hxrwwz does ALL the effort. Patient does none of the effort to complete the activity. Or, the assistance of 2 or more helpers is required for the patient to complete the activity. If activity was not attempted, code reason: 7-Patient Refused. 9-Not Applicable-not attempted and the patient did not perform the activity before the current illness, exacerbation or injury. 10-Not Attempted due to Environmental Limitations-(lack of equipment, weather restraints, etc.). 88-Not Attempted due to Medical Conditions or Safety Concerns. Roll Left to Right (QC): 3 Sit to Lying (QC): 3 Sit to Stand (QC): 3 Chair/Tuw-vg-Zcdzx Xfer(QC): 3 Car Transfer (QC): 2 Gait Training Does the Patient Walk?: Yes Distance: 75'x2 Walk 10 feet (QC): 3 Walk 50 ft with 2 Turns(QC): 3 Walk 150 ft (QC): 88 Walking 10ft/uneven surface-QC: 88 Gait Persons Needed: 1 Gait Assistive Device: Walker Steffen Wheelchair Training Does the Pt Use a Wheelchair?: Yes Distance: 150' Wheel 50 ft with 2 turns (QC): 3 Wheel 150 ft (QC): 3 Type of Wheelchair: Manual Stair Training 1 Step (curb) (QC): 88 4 Steps (QC): 88 12 Steps (QC): 88 Balance Picking up an Object (QC): 88 ADL-Treatment Eating (QC): 5 (set up assistance, pt reports being able to use utensils, bring food to mouth, and eat.) Oral Hygiene (QC): 5 (set up at tray table) Shower/Bathe Self (QC): 4 (SBA, pt washed/dried all parts seated on SC. Min verbal cues with task.) Upper Body Dressing (QC): 4 (SBA, pt able to doff/don boat puller shirt, no verbal cues required.) Lower Body Dressing (QC): 3 (Pt required moderate cues to doff/don lower body clothes. Mod A standing balance at steffen-walker. Min A for pant hike on R side.) On/Off Footwear (QC): 4 (Moderate cues to don/doff shoes/socks.) Toileting Hygiene (QC): 1 (Pt required assistance managing clothing down/up, and assistance with hygiene) Toilet Transfer (QC): 2 (Max A, pt had poor carry over of stand pivot transfer between w/c and toilet. Max verbal cues with transfer.) Assessment/Plan Assessment and Plan Assess & Plan/Chief Complaint Assessment: Catastrophic CVA with left sided weakness Smoker COPD HTN Gout Neuropathy CRI Alcoholism Depression Anxiety Plan: IRF protocol Pain meds Baclofen Home meds Ativan for etoh withdrawal symptoms 09/12/20: Dysphagia screening Monitor for return of function left weakness 09/13/20: Left leg function a bit today Shower today Monitor closely 09/14/20: BM regimen Turn Q 2hours IRF protocol 09/15/20: Monitor BP Fall risk Monitor dysphagia and aspiration risk 09/16/20: Nicotine patch Monitor aspiration 09/17/20: Left arm improving dramatically No pain reported Improved status 09/18/20: Improved status Loop recorder DC Tely 09/19/20: Monitor closely Loop recorder site is less tender now Fall risk incontinence care 09/20/20: Incontinence care Monitor bowels Therapy to intensify 09/21/20: Monitor incontinence 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 to decrease nutrition and dietetics instructor burden 09/22/20: PT OT ST Incontinence 09/23/20: Monitor incontinence Monitor dreams may need to DC Remeron 09/24/20: Monitor incontinence Urinal spilling will need close monitoring 09/25/20: Right knee eval by Dr Huang team Check xrays 09/26/20: Monitor right knee pain Continue aggressive therapy (1) Acute CVA (cerebrovascular accident) Status: Acute (2) Left-sided weakness Status: Acute (3) Gout (4) Alcoholism Status: Chronic (5) Ulcer of great toe Status: Acute (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
--- NOTE | 2020-09-26 15:03 | Physical Therapy Daily Note ---
PT Daily Note-Current Subjective Patient in recliner pre tx, agrees to PT, no complaints of pain at rest. Appearance Patient in recliner post tx with nurse call, phone, tray, all needs met. Mental Status Patient Orientation: Person, Place, Situation, Normal For Age Transfers SCALE: Activities may be completed with or without assistive devices. 3-Rsizwavznr-geuvkig completes the activity by him/herself with no assistance from a helper. 5-Set-up or Clean-up Assistance-helper sets up or cleans up; patient completes activity. [place] assists only prior to or following the activity. 4-Supervision or Touching Assistance-helper provides verbal cues and/or touching/steadying and/or contact guard assistance as patient completes activity. Assistance may be provided throughout the activity or intermittently. 3-Partial/Moderate Assistance-helper does LESS THAN HALF the effort. Prim lift s, holds or supports trunk or limbs, but provides less than half the effort. 2-Substantial/Maximal Assistance-helper does MORE THAN HALF the effort. Prim lifts or holds trunk or limbs and provides more than half the effort. 2-Psueixpzf-yxqsrs does ALL the effort. Patient does none of the effort to complete the activity. Or, the assistance of 2 or more helpers is required for the patient to complete the activity. If activity was not attempted, code reason: 7-Patient Refused. 9-Not Applicable-not attempted and the patient did not perform the activity before the current illness, exacerbation or injury. 10-Not Attempted due to Environmental Limitations-(lack of equipment, weather restraints, etc.). 88-Not Attempted due to Medical Conditions or Safety Concerns. Sit to Stand (QC): 3 Chair/Uvt-ct-Rardl Xfer(QC): 3 Weight Bearing Full Weight Bearing Full Weight Bearing Wheelchair Training Wheel 50 ft with 2 turns (QC): 3 Wheel 150 ft (QC): 3 150'x2 Exercises NuStep Minutes: 15 NuStep Workload: 3 (lower intensity due to right knee swelling and pain) Treatments transfers, WC mobility, LE exercise Assessment Current Status: Poor Progress no ambulation today due to right knee swelling and pain PT Short Term Goals Short Term Goals Time Frame: Sep 18, 2020 Roll Left & Right: 6 Sit to lyin Lying to sitting on side of be: 3 Sit to stand: 3 Chair/ehr-zr-yrnvk transfer: 3 Toilet transfer: 3 Walk 10 feet: 3 Wheel 50ft w/2 turns: 4 Wheel 150 feet: 4 PT Licensed Nuclear Operator Goals Licensed Nuclear Operator Goals PT Licensed Nuclear Operator Goals Time Frame: Oct 02, 2020 Roll Left & Right (QC): 6 Sit to Lying (QC): 6 Lying-Sitting on Side/Bed(QC): 6 Sit to Stand (QC): 4 Chair/Cvw-wk-Sypqj Xfer(QC): 4 Toilet Transfer (QC): 4 Car Transfer (QC): 4 Does the Patient Walk: No and Walking Goal IS indicated Walk 10 feet (QC): 4 Walk 50ft with 2 Turns (QC): 4 Walk 150 ft (QC): 4 Walking 10ft on Uneven Surface: 4 1 Step (curb) (QC): 3 4 Steps (QC): 3 12 Steps (QC): 88 Picking up an Object (QC): 4 Wheel 50 feet with 2 turns (QC: 6 Wheel 150 feet: 6 PT Plan Problem List Problem List: Activity Tolerance, Functional Strength, Safety, Balance, Gait, Transfer, Bed Mobility, ROM Treatment/Plan Treatment Plan: Continue Plan of Care Treatment Plan: Bed Mobility, Education, Functional Activity Francesca, Functional Strength, Group Therapy, Gait, Safety, Therapeutic Exercise, Transfers Treatment Duration: Sep 25, 2020 Frequency: At least 5 of 7 days/Wk (IRF) Estimated Hrs Per Day: 1.5 hours per day Patient and/or Family Agrees t: Yes Safety Risks/Education Patient Education: Transfer Techniques, Correct Positioning, Safety Issues Teaching Recipient: Patient Teaching Methods: Demonstration, Discussion Response to Teaching: Reinforcement Needed Time/GCodes Time In: 1430 Time Out: 1500 Total Billed Treatment Time: 30 Total Billed Treatment 1 visit FA 15' EX 15' KRISTINE HAWK PT Sep 26, 2020 15:03
[2020-09-26 17:04] VITALS: BP 118/67
[2020-09-26] MEDS: MIRTAZAPINE 15 MG (REMERON) TAB PO SCH (22:16)
[2020-09-26] MEDS: LORazepam 0.5 MG (ATIVAN) TABLET PO SCH (22:16)
[2020-09-27 05:09] VITALS: BP 135/71
[2020-09-27] MEDS: THIAMINE 100 MG (VITAMIN B-1) TAB PO SCH (06:25)
[2020-09-27] MEDS: KCL 10 MEQ TAB (MICRO K) PO SCH (06:25)
[2020-09-27] MEDS: MULTIVIT W/MINERALS TAB (THERAGRAN M) PO SCH (06:25)
--- NOTE | 2020-09-27 07:02 | PM&R Progress Note ---
Subjective HPI/CC On Admission Date Seen by Provider: Sep 27, 2020 Time Seen by Provider: 12:30 Subjective/Events-last exam 09/27/20: Incontinence discussed Right knee pain reported is improved Voltaren gel maintained 09/26/20: Right knee about the same since knee infection No falls Incontinence continues Monitoring closely 09/25/20: Pt complaining of right knee pain Denies any other significant issues Will check X-ray and consult orthopod for possible injections since he is flaccid on the left side and really needs the right knee to ambulate Will monitor pt closely 09/24/20: Bowels moved yesterday Reports that he just spills his urinal in bed but he is definitely incontinent Voltaren Gel will be given Participating in therapy 09/23/20: Pt had a crazy dream last night Remeron may cause that so will monitor that closely and may need to discontinue Bowels moved yesterday Incontinence is being managed by using the urinal 09/22/20: Loop recorder maintained Incontinence continues Bowels are moving well Swallowing pretty well I witnessed him actually walking with one-assist No falls 09/21/20: Patient improved No pain reported Incontinence will be managed with bladder routine 09/20/20: Saw patient in midst of bed linen change due to incontinence bladder Working with therapy No pain reported except shoulder 09/19/20: Patient a bit down in spirits today No pain No ETOH withdrawal No falls Incontinence noted 09/18/20: Improved status Gets frustrated easily Has bad days and good days Loop recorder placed so will DC Tely Incontinence noted 09/17/20: Bowels moved yesterday Incontinent a bit with bowel and bladder so will try to get on bladder emptying schedule a long with bowel regimen Was able to move and lift up his left arm with a lot of effort but was remarkable Pt improved and much better spirits today 09/16/20: Telemetry needs to be maintained until loop recorder is placed Will reach out to Dr. Walker tomorrow Incontinence is an issue so will try to work with him in the urinal positional hernadez to help him In significant denial Behavioral health consult Bowels moved yesterday Catastrophic stroke and his coping mechanism is no longer available with smoking and drinking so that is causing a significant issue 09/15/20: Bowels finally moved today Lifting left leg a bit Tolerating food intake without much dysphasia Psych evaluation will be provided because of anxiety and depression and situational grief reaction due to catastrophic stroke Pt overall is very depressed Labs are okay 09/14/20: Turn Q 2hours Refusing stool softners BM 09/10/20 Colace and Senna taken today 09/13/20: Advancing diet Moved left leg a bit today No function in left arm though Shower today and shave Crushing his meds with pudding since he did choke on thin liquids Advancing diet as tolerated Bowels moved two days ago Pt appears to be very chronically ill Conferred with RN Reviewed therapy notes Checked meds and labs Review of Systems General: Fatigue Musculoskeletal: leg pain Neurological: Weakness, Incoordination Objective Exam Vital Signs Vital Signs Date Time Temp Pulse Resp B/P (MAP) Pulse Ox O2 Delivery O2 Flow Rate FiO2 09/27/20 17:59 36.3 74 18 104/58 (73) 96 Room Air Capillary Refill : Less Than 3 Seconds General Appearance: No Apparent Distress, WD/WN, Anxious, Chronically ill HEENT: PERRL/EOMI, Normal ENT Inspection, Pharynx Normal Neck: Full Range of Motion, Normal Inspection, Non Tender, Supple, Carotid Bruit Respiratory: Chest Non Tender, Lungs Clear, Normal Breath Sounds, No Accessory Muscle Use, No Respiratory Distress Cardiovascular: Regular Rate, Rhythm, No Edema, No Gallop, No JVD, No Murmur, Normal Peripheral Pulses Gastrointestinal: Normal Bowel Sounds, No Organomegaly, No Pulsatile Mass, Non Tender, Soft Back: Normal Inspection, No CVA Tenderness, No Vertebral Tenderness Extremity: Normal Capillary Refill, Normal Inspection, Normal Range of Motion (except left side weakness), Non Tender, No Calf Tenderness, No Pedal Edema Neurologic/Psychiatric: Alert, Oriented x3, Normal Mood/Affect, butcher fish II-XII Norm as Tested, Abnormal Gait, Depressed Affect, Facial Droop (left), Motor Weakness (left sided flaccidity) Skin: Normal Color, Warm/Dry Lymphatic: No Adenopathy Results/Procedures Lab Patient resulted labs reviewed. FIM Transfers Therapy Code Descriptions/Definitions Functional [place] Measure: 0=Not Assessed/NA 4=Minimal Assistance 1=Total Assistance 5=Supervision or Setup 2=Maximal Assistance 6=Modified [place] 3=Moderate Assistance 7=Complete IndependenceSCALE: Activities may be completed with or without assistive devices. 3-Tbznsjktiv-dfzyvnt completes the activity by him/herself with no assistance from a helper. 5-Set-up or Clean-up Assistance-helper sets up or cleans up; patient completes activity. [place] assists only prior to or following the activity. 4-Supervision or Touching Assistance-helper provides verbal cues and/or touching/steadying and/or contact guard assistance as patient completes activity. Assistance may be provided throughout the activity or intermittently. 3-Partial/Moderate Assistance-helper does LESS THAN HALF the effort. [place] lifts, holds or supports trunk or limbs, but provides less than half the effort. 2-Substantial/Maximal Assistance-helper does MORE THAN HALF the effort. [place] lifts or holds trunk or limbs and provides more than half the effort. 5-Jcdrytzlq-qdhzla does ALL the effort. Patient does none of the effort to complete the activity. Or, the assistance of 2 or more helpers is required for the patient to complete the activity. If activity was not attempted, code reason: 7-Patient Refused. 9-Not Applicable-not attempted and the patient did not perform the activity bef ore the current illness, exacerbation or injury. 10-Not Attempted due to Environmental Limitations-(lack of equipment, weather r estraints, etc.). 88-Not Attempted due to Medical Conditions or Safety Concerns. Roll Left to Right (QC): 3 Sit to Lying (QC): 3 Sit to Stand (QC): 3 Chair/Wci-kv-Ijczb Xfer(QC): 3 Car Transfer (QC): 2 Gait Training Does the Patient Walk?: Yes Distance: 75'x2 Walk 10 feet (QC): 3 Walk 50 ft with 2 Turns(QC): 3 Walk 150 ft (QC): 88 Walking 10ft/uneven surface-QC: 88 Gait Persons Needed: 1 Gait Assistive Device: Walker Ste[place] Wheelchair Training Does the Pt Use a Wheelchair?: Yes Distance: 150' Wheel 50 ft with 2 turns (QC): 3 Wheel 150 ft (QC): 3 Type of Wheelchair: Manual Stair Training 1 Step (curb) (QC): 88 4 Steps (QC): 88 12 Steps (QC): 88 Balance Picking up an Object (QC): 88 ADL-Treatment Eating (QC): 5 (set up assistance, pt reports being able to use utensils, bring food to mouth, and eat.) Oral Hygiene (QC): 5 (set up at tray table) Shower/Bathe Self (QC): 4 (SBA, pt washed/dried all parts seated on SC. Min verbal cues with task.) Upper Body Dressing (QC): 4 (SBA, pt able to doff/don clod puller shirt, no verbal cues required.) Lower Body Dressing (QC): 3 (Pt required moderate cues to doff/don lower body clothes. Mod A standing balance at steffen-walker. Min A for pant hike on R side.) On/Off Footwear (QC): 4 (Moderate cues to don/doff shoes/socks.) Toileting Hygiene (QC): 1 (Pt required assistance managing clothing down/up, an d assistance with hygiene) Toilet Transfer (QC): 2 (Max A, pt had poor carry over of stand pivot transfer between w/c and toilet. Max verbal cues with transfer.) Assessment/Plan Assessment and Plan Assess & Plan/Chief Complaint Assessment: Catastrophic CVA with left sided weakness Smoker COPD HTN Gout Neuropathy CRI Alcoholism Depression Anxiety Plan: IRF protocol Pain meds Baclofen Home meds Ativan for etoh withdrawal symptoms 09/12/20: Dysphagia screening Monitor for return of function left weakness 09/13/20: Left leg function a bit today Shower today Monitor closely 09/14/20: BM regimen Turn Q 2hours IRF protocol 09/15/20: Monitor BP Fall risk Monitor dysphagia and aspiration risk 09/16/20: Nicotine patch Monitor aspiration 09/17/20: Left arm improving dramatically No pain reported Improved status 09/18/20: Improved status Loop recorder DC Tely 09/19/20: Monitor closely Loop recorder site is less tender now Fall risk incontinence care 09/20/20: Incontinence care Monitor bowels Therapy to intensify 09/21/20: Monitor incontinence 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 to 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 law 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 09/22/20: PT OT ST Incontinence 09/23/20: Monitor incontinence Monitor dreams may need to DC Remeron 09/24/20: Monitor incontinence Urinal spilling will need close monitoring 09/25/20: Right knee eval by Dr Huang team Check xrays 09/26/20: Monitor right knee pain Continue aggressive therapy 09/27/20: Incontinence care Right knee pain management (1) Acute CVA (cerebrovascular accident) Status: Acute (2) Left-sided weakness Status: Acute (3) Gout (4) Alcoholism Status: Chronic (5) Ulcer of great toe Status: Acute (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
[2020-09-27 08:05] VITALS: BP 139/65
[2020-09-27] MEDS: NICOTINE 14 MG (NICODERM) PATCH TD SCH (08:06)
[2020-09-27] MEDS: amLODIPine 5 MG (NORVASC) TAB PO SCH (08:06)
[2020-09-27] MEDS: ASPIRIN E.C. 325 MG (ECOTRIN) TABLET PO SCH (08:06)
[2020-09-27] MEDS: FOLIC ACID 1 MG TAB PO SCH (08:06)
[2020-09-27] MEDS: ATENOLOL 25 MG (TENORMIN) TAB PO SCH (08:06)
[2020-09-27] MEDS: ACETAMINOPHEN 500 MG TAB (TYLENOL) PO PRN (08:06)
[2020-09-27] MEDS: NICOTINE PATCH REMOVAL TP SCH (08:08)
[2020-09-27] MEDS: MAGNESIUM OXIDE (MAG-OX)400 MG TAB PO SCH ×2 (08:08→17:42)
[2020-09-27] MEDS: polyethylene glycoL POWDER 17 GM (MIRALAX) PACK PO SCH ×2 (09:00→22:03)
[2020-09-27] MEDS: SENNA W/DOCUSATE (SENOKOT S) TABLET PO SCH ×2 (09:00→22:04)
[2020-09-27] MEDS: DOCUSATE SODIUM 10 MG/ML 10 ML UDC (COLACE) NG SCH ×2 (09:00→22:03)
--- NOTE | 2020-09-27 11:30 | Physical Therapy Daily Note ---
PT Daily Note-Current Subjective Pt in bed upon arrival; needs assistance getting cleaned up. Pt agrees to SURGEON'S ASSISTANT assisting. Pain Numeric Pain Scale: 0-No Pain Location: No Pain Reported Mental Status Patient Orientation: Person, Place, Time, Situation Transfers SCALE: Activities may be completed with or without assistive devices. 7-Lhjuwjafdv-qlupqbq completes the activity by him/herself with no assistance from a helper. 5-Set-up or Clean-up Assistance-helper sets up or cleans up; patient completes activity. [place] assists only prior to or following the activity. 4-Supervision or Touching Assistance-helper provides verbal cues and/or touching/steadying and/or contact guard assistance as patient completes acti vity. Assistance may be provided throughout the activity or intermittently. 3-Partial/Moderate Assistance-helper does LESS THAN HALF the effort. [place] lifts, holds or supports trunk or limbs, but provides less than half the effort. 2-Substantial/Maximal Assistance-helper does MORE THAN HALF the effort. [place] lifts or holds trunk or limbs and provides more than half the effort. 9-Rhyjcorlf-doohpq does ALL the effort. Patient does none of the effort to complete the activity. Or, the assistance of 2 or more helpers is required for the patient to complete the activity. If activity was not attempted, code reason: 7-Patient Refused. 9-Not Applicable-not attempted and the patient did not perform the activity before the current illness, exacerbation or injury. 10-Not Attempted due to Environmental Limitations-(lack of equipment, weather restraints, etc.). 88-Not Attempted due to Medical Conditions or Safety Concerns. Roll Left & Right (QC): 3 Lying to Sitting/Side of Bed(Q: 4 Sit to Stand (QC): 4 Chair/Rdo-th-Sesnl Xfer(QC): 4 Weight Bearing Full Weight Bearing Full Weight Bearing Gait Training Does the Patient Walk?: Yes Distance: 4' Gait Assistive Device: Walker Steffen Pt unsteady during transfers from EOB to chair. SURGEON'S ASSISTANT CGA. Exercises Seated Therapy Exercises: Ankle pumps, Long arc quads, Hip flexion, Kicking activity, Hip abd/add Seated Reps: 15 (reps each) Treatments Pt completes bed mobility w/ ModA. RN in room to assist w/ cleaning pt up. Pt encouraged to complete pericare. Pt completes bridge to assist w/ donning pants. Pt supine to sit w/ CGA. Pt sit<>stands w/ CGA and transfers to chair w/ CGA using steffen walker. VC's given for proper hand placement w/ return to sit; pt "flopped" when sitting down. Pt in chair w/ bedside table and call light w/in reach and all needs met, at end of tx. Assessment Current Status: Fair Progress Pt requires reinforcement from Nursing Staff to call when pt needs assistance. PT Short Term Goals Short Term Goals Time Frame: Sep 18, 2020 Roll Left & Right: 6 Sit to lyin Lying to sitting on side of be: 3 Sit to stand: 3 Chair/qiw-uo-tvmmk transfer: 3 Toilet transfer: 3 Walk 10 feet: 3 Wheel 50ft w/2 turns: 4 Wheel 150 feet: 4 PT Senior Care Goals Hydraulic Operator Goals PT Senior Care Goals Time Frame: Oct 02, 2020 Roll Left & Right (QC): 6 Sit to Lying (QC): 6 Lying-Sitting on Side/Bed(QC): 6 Sit to Stand (QC): 4 Chair/Roi-hi-Ysnae Xfer(QC): 4 Toilet Transfer (QC): 4 Car Transfer (QC): 4 Does the Patient Walk: No and Walking Goal IS indicated Walk 10 feet (QC): 4 Walk 50ft with 2 Turns (QC): 4 Walk 150 ft (QC): 4 Walking 10ft on Uneven Surface: 4 1 Step (curb) (QC): 3 4 Steps (QC): 3 12 Steps (QC): 88 Picking up an Object (QC): 4 Wheel 50 feet with 2 turns (QC: 6 Wheel 150 feet: 6 PT Plan Problem List Problem List: Activity Tolerance, Functional Strength, Safety, Balance, Gait, Transfer, Bed Mobility Treatment/Plan Treatment Plan: Continue Plan of Care Treatment Plan: Bed Mobility, Education, Functional Activity Francesca, Functional Strength, Group Therapy, Gait, Safety, Therapeutic Exercise, Transfers Treatment Duration: Sep 25, 2020 Frequency: At least 5 of 7 days/Wk (IRF) Estimated Hrs Per Day: 1.5 hours per day Patient and/or Family Agrees t: Yes Safety Risks/Education Patient Education: Correct Positioning, Safety Issues Teaching Recipient: Patient Teaching Methods: Discussion Response to Teaching: Verbalize Understanding, Reinforcement Needed Time/GCodes Time In: 0933 Time Out: 1004 Total Billed Treatment Time: 31 Total Billed Treatment 1, FA (16m), Ex (15m) MEREDITH BRANDT SURGEON'S ASSISTANT Sep 27, 2020 11:30
[2020-09-27] MEDS: DICLOFENAC 1% GEL 100 GM (VOLTAREN) TUBE TOP SCH ×3 (14:27→22:03)
[2020-09-27 17:59] VITALS: BP 104/58
[2020-09-27] MEDS: MIRTAZAPINE 15 MG (REMERON) TAB PO SCH (22:02)
[2020-09-27] MEDS: LORazepam 0.5 MG (ATIVAN) TABLET PO SCH (22:03)
[2020-09-28 05:07] VITALS: BP 113/54
[2020-09-28] MEDS: KCL 10 MEQ TAB (MICRO K) PO SCH (06:33)
[2020-09-28] MEDS: THIAMINE 100 MG (VITAMIN B-1) TAB PO SCH (06:33)
[2020-09-28] MEDS: MULTIVIT W/MINERALS TAB (THERAGRAN M) PO SCH (06:33)
[2020-09-28 08:43] VITALS: BP 111/58
[2020-09-28] MEDS: MAGNESIUM OXIDE (MAG-OX)400 MG TAB PO SCH ×2 (08:44→17:08)
[2020-09-28] MEDS: DICLOFENAC 1% GEL 100 GM (VOLTAREN) TUBE TOP SCH ×4 (08:44→22:30)
[2020-09-28] MEDS: FOLIC ACID 1 MG TAB PO SCH (08:44)
[2020-09-28] MEDS: ASPIRIN E.C. 325 MG (ECOTRIN) TABLET PO SCH (08:44)
[2020-09-28] MEDS: ATENOLOL 25 MG (TENORMIN) TAB PO SCH (08:44)
[2020-09-28] MEDS: ACETAMINOPHEN 500 MG TAB (TYLENOL) PO PRN (08:44)
[2020-09-28] MEDS: amLODIPine 5 MG (NORVASC) TAB PO SCH (08:44)
[2020-09-28] MEDS: NICOTINE 14 MG (NICODERM) PATCH TD SCH (08:45)
[2020-09-28] MEDS: NICOTINE PATCH REMOVAL TP SCH (08:45)
[2020-09-28] MEDS: DOCUSATE SODIUM 10 MG/ML 10 ML UDC (COLACE) NG SCH ×2 (09:19→20:59)
[2020-09-28] MEDS: polyethylene glycoL POWDER 17 GM (MIRALAX) PACK PO SCH ×2 (09:19→20:59)
[2020-09-28] MEDS: SENNA W/DOCUSATE (SENOKOT S) TABLET PO SCH ×2 (09:19→20:59)
--- NOTE | 2020-09-28 11:28 | PM&R Progress Note ---
Subjective HPI/CC On Admission Date Seen by Provider: Sep 28, 2020 Time Seen by Provider: 14:00 Subjective/Events-last exam 09/28/20: BM today Toileting improved Bladder training every 2 hours going well 09/27/20: Incontinence discussed Right knee pain reported is improved Voltaren gel maintained 09/26/20: Right knee about the same since knee infection No falls Incontinence continues Monitoring closely 09/25/20: Pt complaining of right knee pain Denies any other significant issues Will check X-ray and consult orthopod for possible injections since he is flaccid on the left side and really needs the right knee to ambulate Will monitor pt closely 09/24/20: Bowels moved yesterday Reports that he just spills his urinal in bed but he is definitely incontinent Voltaren Gel will be given Participating in therapy 09/23/20: Pt had a crazy dream last night Remeron may cause that so will monitor that closely and may need to discontinue Bowels moved yesterday Incontinence is being managed by using the urinal 09/22/20: Loop recorder maintained Incontinence continues Bowels are moving well Swallowing pretty well I witnessed him actually walking with one-assist No falls 09/21/20: Patient improved No pain reported Incontinence will be managed with bladder routine 09/20/20: Saw patient in midst of bed linen change due to incontinence bladder Working with therapy No pain reported except shoulder 09/19/20: Patient a bit down in spirits today No pain No ETOH withdrawal No falls Incontinence noted 09/18/20: Improved status Gets frustrated easily Has bad days and good days Loop recorder placed so will DC Tely Incontinence noted 09/17/20: Bowels moved yesterday Incontinent a bit with bowel and bladder so will try to get on bladder emptying schedule a long with bowel regimen Was able to move and lift up his left arm with a lot of effort but was remarkable Pt improved and much better spirits today 09/16/20: Telemetry needs to be maintained until loop recorder is placed Will reach out to Dr. Walker tomorrow Incontinence is an issue so will try to work with him in the urinal positional hernadez to help him In significant denial Behavioral health consult Bowels moved yesterday Catastrophic stroke and his coping mechanism is no longer available with smoking and drinking so that is causing a significant issue 09/15/20: Bowels finally moved today Lifting left leg a bit Tolerating food intake without much dysphasia Psych evaluation will be provided because of anxiety and depression and situational grief reaction due to catastrophic stroke Pt overall is very depressed Labs are okay 09/14/20: Turn Q 2hours Refusing stool softners BM 09/10/20 Colace and Senna taken today 09/13/20: Advancing diet Moved left leg a bit today No function in left arm though Shower today and shave Crushing his meds with pudding since he did choke on thin liquids Advancing diet as tolerated Bowels moved two days ago Pt appears to be very chronically ill Conferred with RN Reviewed therapy notes Checked meds and labs Review of Systems General: Fatigue Neurological: Weakness, Incoordination Objective Exam Vital Signs Vital Signs Date Time Temp Pulse Resp B/P (MAP) Pulse Ox O2 Delivery O2 Flow Rate FiO2 09/28/20 17:01 36.6 54 18 117/60 (79) 95 Room Air Capillary Refill : Less Than 3 Seconds General Appearance: No Apparent Distress, WD/WN, Anxious, Chronically ill HEENT: PERRL/EOMI, Normal ENT Inspection, Pharynx Normal Neck: Full Range of Motion, Normal Inspection, Non Tender, Supple, Carotid Bruit Respiratory: Chest Non Tender, Lungs Clear, Normal Breath Sounds, No Accessory Muscle Use, No Respiratory Distress Cardiovascular: Regular Rate, Rhythm, No Edema, No Gallop, No JVD, No Murmur, Normal Peripheral Pulses Gastrointestinal: Normal Bowel Sounds, No Organomegaly, No Pulsatile Mass, Non Tender, Soft Back: Normal Inspection, No CVA Tenderness, No Vertebral Tenderness Extremity: Normal Capillary Refill, Normal Inspection, Normal Range of Motion (except left side weakness), Non Tender, No Calf Tenderness, No Pedal Edema Neurologic/Psychiatric: Alert, Oriented x3, Normal Mood/Affect, systems software designer II-XII Norm as Tested, Abnormal Gait, Depressed Affect, Facial Droop (left), Motor Weakness (left sided flaccidity) Skin: Normal Color, Warm/Dry Lymphatic: No Adenopathy Results/Procedures Lab Patient resulted labs reviewed. FIM Transfers Therapy Code Descriptions/Definitions Functional [place] Measure: 0=Not Assessed/NA 4=Minimal Assistance 1=Total Assistance 5=Supervision or Setup 2=Maximal Assistance 6=Modified [place] 3=Moderate Assistance 7=Complete IndependenceSCALE: Activities may be completed with or without assistive devices. 1-Vllwxigfew-ynorssu completes the activity by him/herself with no assistance from a helper. 5-Set-up or Clean-up Assistance-helper sets up or cleans up; patient completes activity. [place] assists only prior to or following the activity. 4-Supervision or Touching Assistance-helper provides verbal cues and/or lino shamar/steadying and/or contact guard assistance as patient completes activity. Assistance may be provided throughout the activity or intermittently. 3-Partial/Moderate Assistance-helper does LESS THAN HALF the effort. [place] lifts, holds or supports trunk or limbs, but provides less than half the effort. 2-Substantial/Maximal Assistance-helper does MORE THAN HALF the effort. [place] lifts or holds trunk or limbs and provides more than half the effort. 5-Fwgpceipd-rtssly does ALL the effort. Patient does none of the effort to complete the activity. Or, the assistance of 2 or more helpers is required for the patient to complete the activity. If activity was not attempted, code reason: 7-Patient Refused. 9-Not Applicable-not attempted and the patient did not perform the activity before the current illness, exacerbation or injury. 10-Not Attempted due to Environmental Limitations-(lack of equipment, weather restraints, etc.). 88-Not Attempted due to Medical Conditions or Safety Concerns. Roll Left to Right (QC): 3 Sit to Lying (QC): 3 Sit to Stand (QC): 4 Chair/Gtm-wp-Wfvcv Xfer(QC): 4 Car Transfer (QC): 2 Gait Training Does the Patient Walk?: Yes Distance: 4' Walk 10 feet (QC): 3 Walk 50 ft with 2 Turns(QC): 3 Walk 150 ft (QC): 88 Walking 10ft/uneven surface-QC: 88 Gait Persons Needed: 1 Gait Assistive Device: Walker Steffen Wheelchair Training Does the Pt Use a Wheelchair?: Yes Distance: 150' Wheel 50 ft with 2 turns (QC): 3 Wheel 150 ft (QC): 3 Type of Wheelchair: Manual Stair Training 1 Step (curb) (QC): 88 4 Steps (QC): 88 12 Steps (QC): 88 Balance Picking up an Object (QC): 88 ADL-Treatment Eating (QC): 5 (set up assistance, pt reports being able to use utensils, bring food to mouth, and eat.) Oral Hygiene (QC): 5 (set up at tray table) Shower/Bathe Self (QC): 4 (SBA, pt washed/dried all parts seated on SC. Min verbal cues with task.) Upper Body Dressing (QC): 4 (SBA, pt able to doff/don pull through hooker shirt, no verbal cues required.) Lower Body Dressing (QC): 3 (Pt required moderate cues to doff/don lower body clothes. Mod A standing balance at steffen-walker. Min A for pant hike on R side.) On/Off Footwear (QC): 4 (Moderate cues to don/doff shoes/socks.) Toileting Hygiene (QC): 1 (Pt required assistance managing clothing down/up, and assistance with hygiene) Toilet Transfer (QC): 2 (Max A, pt had poor carry over of stand pivot transfer between w/c and toilet. Max verbal cues with transfer.) Assessment/Plan Assessment and Plan Assess & Plan/Chief Complaint Assessment: Catastrophic CVA with left sided weakness Smoker COPD HTN Gout Neuropathy CRI Alcoholism Depression Anxiety Plan: IRF protocol Pain meds Baclofen Home meds Ativan for etoh withdrawal symptoms 09/12/20: Dysphagia screening Monitor for return of function left weakness 09/13/20: Left leg function a bit today Shower today Monitor closely 09/14/20: BM regimen Turn Q 2hours IRF protocol 09/15/20: Monitor BP Fall risk Monitor dysphagia and aspiration risk 09/16/20: Nicotine patch Monitor aspiration 09/17/20: Left arm improving dramatically No pain reported Improved status 09/18/20: Improved status Loop recorder DC Tely 09/19/20: Monitor closely Loop recorder site is less tender now Fall risk incontinence care 09/20/20: Incontinence care Monitor bowels Therapy to intensify 09/21/20: Monitor incontinence 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 to decrease utility bagger burden 09/22/20: PT OT ST Incontinence 09/23/20: Monitor incontinence Monitor dreams may need to DC Remeron 09/24/20: Monitor incontinence Urinal spilling will need close monitoring 09/25/20: Right knee eval by Dr Huang team Check xrays 09/26/20: Monitor right knee pain Continue aggressive therapy 09/27/20: Incontinence care Right knee pain management 09/28/20: Bladder training Check labs in am (1) Acute CVA (cerebrovascular accident) Status: Acute (2) Left-sided weakness Status: Acute (3) Gout (4) Alcoholism Status: Chronic (5) Ulcer of great toe Status: Acute (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
[2020-09-28 17:01] VITALS: BP 117/60
[2020-09-28] MEDS: MIRTAZAPINE 15 MG (REMERON) TAB PO SCH (22:30)
[2020-09-28] MEDS: LORazepam 0.5 MG (ATIVAN) TABLET PO SCH (22:30)
[2020-09-29 05:10] VITALS: BP 130/71
--- NOTE | 2020-09-29 05:46 | PM&R Progress Note ---
Subjective HPI/CC On Admission Date Seen by Provider: Sep 29, 2020 Time Seen by Provider: 09:00 Subjective/Events-last exam 09/29/20: DC planning Family training today Incontinence management Doing pretty well Bowels are moving Overall feels like he is making progress 09/28/20: BM today Toileting improved Bladder training every 2 hours going well 09/27/20: Incontinence discussed Right knee pain reported is improved Voltaren gel maintained 09/26/20: Right knee about the same since knee infection No falls Incontinence continues Monitoring closely 09/25/20: Pt complaining of right knee pain Denies any other significant issues Will check X-ray and consult orthopod for possible injections since he is flaccid on the left side and really needs the right knee to ambulate Will monitor pt closely 09/24/20: Bowels moved yesterday Reports that he just spills his urinal in bed but he is definitely incontinent Voltaren Gel will be given Participating in therapy 09/23/20: Pt had a crazy dream last night Remeron may cause that so will monitor that closely and may need to discontinue Bowels moved yesterday Incontinence is being managed by using the urinal 09/22/20: Loop recorder maintained Incontinence continues Bowels are moving well Swallowing pretty well I witnessed him actually walking with one-assist No falls 09/21/20: Patient improved No pain reported Incontinence will be managed with bladder routine 09/20/20: Saw patient in midst of bed linen change due to incontinence bladder Working with therapy No pain reported except shoulder 09/19/20: Patient a bit down in spirits today No pain No ETOH withdrawal No falls Incontinence noted 09/18/20: Improved status Gets frustrated easily Has bad days and good days Loop recorder placed so will DC Tely Incontinence noted 09/17/20: Bowels moved yesterday Incontinent a bit with bowel and bladder so will try to get on bladder emptying schedule a long with bowel regimen Was able to move and lift up his left arm with a lot of effort but was remarkable Pt improved and much better spirits today 09/16/20: Telemetry needs to be maintained until loop recorder is placed Will reach out to Dr. Walker tomorrow Incontinence is an issue so will try to work with him in the urinal positional hernadez to help him In significant denial Behavioral health consult Bowels moved yesterday Catastrophic stroke and his coping mechanism is no longer available with smoking and drinking so that is causing a significant issue 09/15/20: Bowels finally moved today Lifting left leg a bit Tolerating food intake without much dysphasia Psych evaluation will be provided because of anxiety and depression and situational grief reaction due to catastrophic stroke Pt overall is very depressed Labs are okay 09/14/20: Turn Q 2hours Refusing stool softners BM 09/10/20 Colace and Senna taken today 09/13/20: Advancing diet Moved left leg a bit today No function in left arm though Shower today and shave Crushing his meds with pudding since he did choke on thin liquids Advancing diet as tolerated Bowels moved two days ago Pt appears to be very chronically ill Conferred with RN Reviewed therapy notes Checked meds and labs Review of Systems Neurological: Weakness, Incoordination Objective Exam Vital Signs Vital Signs Date Time Temp Pulse Resp B/P (MAP) Pulse Ox O2 Delivery O2 Flow Rate FiO2 09/29/20 20:30 98 Room Air 09/29/20 17:53 36.2 74 20 103/69 (80) Capillary Refill : Less Than 3 Seconds General Appearance: No Apparent Distress, WD/WN, Anxious, Chronically ill HEENT: PERRL/EOMI, Normal ENT Inspection, Pharynx Normal Neck: Full Range of Motion, Normal Inspection, Non Tender, Supple, Carotid Bruit Respiratory: Chest Non Tender, Lungs Clear, Normal Breath Sounds, No Accessory Muscle Use, No Respiratory Distress Cardiovascular: Regular Rate, Rhythm, No Edema, No Gallop, No JVD, No Murmur, N ormal Peripheral Pulses Gastrointestinal: Normal Bowel Sounds, No Organomegaly, No Pulsatile Mass, Non Tender, Soft Back: Normal Inspection, No CVA Tenderness, No Vertebral Tenderness Extremity: Normal Capillary Refill, Normal Inspection, Normal Range of Motion (except left side weakness), Non Tender, No Calf Tenderness, No Pedal Edema Neurologic/Psychiatric: Alert, Oriented x3, Normal Mood/Affect, lab engineer II-XII Norm as Tested, Abnormal Gait, Depressed Affect, Facial Droop (left), Motor Weakness (left sided flaccidity) Skin: Normal Color, Warm/Dry Lymphatic: No Adenopathy Results/Procedures Lab Laboratory Tests 09/29/20 06:04 Patient resulted labs reviewed. FIM Transfers Therapy Code Descriptions/Definitions Functional [place] Measure: 0=Not Assessed/NA 4=Minimal Assistance 1=Total Assistance 5=Supervision or Setup 2=Maximal Assistance 6=Modified [place] 3=Moderate Assistance 7=Complete IndependenceSCALE: Activities may be completed with or without assistive devices. 0-Dlbayendhz-mulpvwn completes the activity by him/herself with no assistance from a helper. 5-Set-up or Clean-up Assistance-helper sets up or cleans up; patient completes activity. [place] assists only prior to or following the activity. 4-Supervision or Touching Assistance-helper provides verbal cues and/or to uching/steadying and/or contact guard assistance as patient completes activity. Assistance may be provided throughout the activity or intermittently. 3-Partial/Moderate Assistance-helper does LESS THAN HALF the effort. [place] lifts, holds or supports trunk or limbs, but provides less than half the effort. 2-Substantial/Maximal Assistance-helper does MORE THAN HALF the effort. [place] lifts or holds trunk or limbs and provides more than half the effort. 3-Xpdkpaics-pboisw does ALL the effort. Patient does none of the effort to complete the activity. Or, the assistance of 2 or more helpers is required for the patient to complete the activity. If activity was not attempted, code reason: 7-Patient Refused. 9-Not Applicable-not attempted and the patient did not perform the activity before the current illness, exacerbation or injury. 10-Not Attempted due to Environmental Limitations-(lack of equipment, weather restraints, etc.). 88-Not Attempted due to Medical Conditions or Safety Concerns. Roll Left to Right (QC): 3 Sit to Lying (QC): 3 Sit to Stand (QC): 4 Chair/Shh-kt-Fxqhv Xfer(QC): 4 Car Transfer (QC): 2 Gait Training Does the Patient Walk?: Yes Distance: 4' Walk 10 feet (QC): 3 Walk 50 ft with 2 Turns(QC): 3 Walk 150 ft (QC): 88 Walking 10ft/uneven surface-QC: 88 Gait Persons Needed: 1 Gait Assistive Device: Walker Steffen Wheelchair Training Does the Pt Use a Wheelchair?: Yes Distance: 150' Wheel 50 ft with 2 turns (QC): 3 Wheel 150 ft (QC): 3 Type of Wheelchair: Manual Stair Training 1 Step (curb) (QC): 88 4 Steps (QC): 88 12 Steps (QC): 88 Balance Picking up an Object (QC): 88 ADL-Treatment Eating (QC): 5 (set up assistance, pt reports being able to use utensils, bring food to mouth, and eat.) Oral Hygiene (QC): 5 (set up at tray table) Shower/Bathe Self (QC): 4 (SBA, pt washed/dried all parts seated on SC. Min verbal cues with task.) Upper Body Dressing (QC): 4 (SBA, pt able to doff/don plant puller shirt, no verbal cues required.) Lower Body Dressing (QC): 3 (Pt required moderate cues to doff/don lower body clothes. Mod A standing balance at steffen-walker. Min A for pant hike on R side.) On/Off Footwear (QC): 4 (Moderate cues to don/doff shoes/socks.) Toileting Hygiene (QC): 1 (Pt required assistance managing clothing down/up, and assistance with hygiene) Toilet Transfer (QC): 2 (Max A, pt had poor carry over of stand pivot transfer between w/c and toilet. Max verbal cues with transfer.) Assessment/Plan Assessment and Plan Assess & Plan/Chief Complaint Assessment: Catastrophic CVA with left sided weakness Smoker COPD HTN Gout Neuropathy CRI Alcoholism Depression Anxiety Plan: IRF protocol Pain meds Baclofen Home meds Ativan for etoh withdrawal symptoms 09/12/20: Dysphagia screening Monitor for return of function left weakness 09/13/20: Left leg function a bit today Shower today Monitor closely 09/14/20: BM regimen Turn Q 2hours IRF protocol 09/15/20: Monitor BP Fall risk Monitor dysphagia and aspiration risk 09/16/20: Nicotine patch Monitor aspiration 09/17/20: Left arm improving dramatically No pain reported Improved status 09/18/20: Improved status Loop recorder DC Tely 09/19/20: Monitor closely Loop recorder site is less tender now Fall risk incontinence care 09/20/20: Incontinence care Monitor bowels Therapy to intensify 09/21/20: Monitor incontinence 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 to decrease exhibit cleaner burden 09/22/20: PT OT ST Incontinence 09/23/20: Monitor incontinence Monitor dreams may need to DC Remeron 11/18/20: Monitor incontinence Urinal spilling will need close monitoring 09/25/20: Right knee eval by Dr Huang team Check xrays 09/26/20: Monitor right knee pain Continue aggressive therapy 09/27/20: Incontinence care Right knee pain management 09/28/20: Bladder training Check labs in am 09/29/20: Labs stable IRF protocol Education for today (1) Acute CVA (cerebrovascular accident) Status: Acute (2) Left-sided weakness Status: Acute (3) Gout (4) Alcoholism Status: Chronic (5) Ulcer of great toe Status: Acute (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
[2020-09-29 06:22] LABS: BASOPHILS # (AUTO) 0.1 10^3/uL (0.0-0.1); BASOPHILS % (AUTO) 1 % (0-10); EOSINOPHILS # (AUTO) 0.5 10^3/uL (0.0-0.3); EOSINOPHILS % (AUTO) 6 % (0-10); HEMATOCRIT 46 % (40-54); HEMOGLOBIN 15.7 g/dL (13.3-17.7); LYMPHOCYTES # (AUTO) 2.2 10^3/uL (1.0-4.0); LYMPHOCYTES % (AUTO) 26 % (12-44); MEAN CORPUSCULAR HEMOGLOBIN 38 pg (25-34); MEAN CORPUSCULAR HGB CONC 34 g/dL (32-36); MEAN CORPUSCULAR VOLUME 112 fL (80-99); MEAN PLATELET VOLUME 10.3 fL (9.0-12.2); MONOCYTES # (AUTO) 0.9 10^3/uL (0.0-1.0); MONOCYTES % (AUTO) 10 % (0-12); NEUTROPHILS % (AUTO) 58 % (42-75); PLATELET COUNT 257 10^3/uL (130-400); WHITE BLOOD COUNT 8.7 10^3/uL (4.3-11.0)
[2020-09-29 06:29] LABS: ALBUMIN 3.8 GM/DL (3.2-4.5); CHLORIDE 106 MMOL/L (98-107); POTASSIUM 4.2 MMOL/L (3.6-5.0); SODIUM 140 MMOL/L (135-145)
[2020-09-29 06:31] LABS: CALCIUM 8.8 MG/DL (8.5-10.1)
[2020-09-29 06:32] LABS: GLUCOSE 94 MG/DL (70-105); TOTAL PROTEIN 6.7 GM/DL (6.4-8.2)
[2020-09-29 06:33] LABS: CARBON DIOXIDE 24 MMOL/L (21-32)
[2020-09-29 06:34] LABS: BILIRUBIN,TOTAL 0.5 MG/DL (0.1-1.0)
[2020-09-29 06:35] LABS: ALKALINE PHOSPHATASE 131 U/L (40-136); CREATININE SERUM 0.92 MG/DL (0.60-1.30); GFR ESTIMATED > 60
[2020-09-29 06:37] LABS: BUN/CREATININE RATIO 23
[2020-09-29 06:38] LABS: ALANINE AMINOTRANSFERASE 53 U/L (0-55)
[2020-09-29] MEDS: KCL 10 MEQ TAB (MICRO K) PO SCH (06:44)
[2020-09-29] MEDS: THIAMINE 100 MG (VITAMIN B-1) TAB PO SCH (06:44)
[2020-09-29] MEDS: MULTIVIT W/MINERALS TAB (THERAGRAN M) PO SCH (06:44)
[2020-09-29] MEDS: amLODIPine 5 MG (NORVASC) TAB PO SCH (08:31)
[2020-09-29] MEDS: ASPIRIN E.C. 325 MG (ECOTRIN) TABLET PO SCH (08:31)
[2020-09-29] MEDS: ATENOLOL 25 MG (TENORMIN) TAB PO SCH (08:31)
[2020-09-29] MEDS: FOLIC ACID 1 MG TAB PO SCH (08:31)
[2020-09-29] MEDS: MAGNESIUM OXIDE (MAG-OX)400 MG TAB PO SCH ×2 (08:31→17:29)
[2020-09-29] MEDS: polyethylene glycoL POWDER 17 GM (MIRALAX) PACK PO SCH ×2 (08:32→22:10)
[2020-09-29] MEDS: SENNA W/DOCUSATE (SENOKOT S) TABLET PO SCH ×2 (08:32→22:10)
[2020-09-29] MEDS: NICOTINE 14 MG (NICODERM) PATCH TD SCH (08:32)
[2020-09-29] MEDS: DOCUSATE SODIUM 10 MG/ML 10 ML UDC (COLACE) NG SCH ×2 (08:32→22:05)
[2020-09-29] MEDS: NICOTINE PATCH REMOVAL TP SCH (08:33)
[2020-09-29] MEDS: DICLOFENAC 1% GEL 100 GM (VOLTAREN) TUBE TOP SCH ×4 (08:33→22:20)
--- NOTE | 2020-09-29 11:02 | Occupational Ther Daily Note ---
OT Current Status-Daily Note Subjective Pt laying in bed, agreeable to OT tx with focus on ADLS, then cotreat with PT for family training. ADL-Treatment Therapy Code Descriptions/Definitions Functional [place] Measure: 0=Not Assessed/NA 4=Minimal Assistance 1=Total Assistance 5=Supervision or Setup 2=Maximal Assistance 6=Modified [place] 3=Moderate Assistance 7=Complete IndependenceSCALE: Activities may be completed with or without assistive devices. 1-Wplanetqzj-krjceit completes the activity by him/herself with no assistance from a helper. 5-Set-up or Clean-up Assistance-helper sets up or cleans up; patient completes activity. [place] assists only prior to or following the activity. 4-Supervision or Touching Assistance-helper provides verbal cues and/or touching/steadying and/or contact guard assistance as patient completes activity. Assistance may be provided throughout the activity or intermittently. 3-Partial/Moderate Assistance-helper does LESS THAN HALF the effort. [place] lifts, holds or supports trunk or limbs, but provides less than half the effort. 2-Substantial/Maximal Assistance-helper does MORE THAN HALF the effort. [place] lifts or holds trunk or limbs and provides more than half the effort. 7-Fzawxonrt-afftqo does ALL the effort. Patient does none of the effort to complete the activity. Or, the assistance of 2 or more helpers is required for the patient to complete the activity. If activity was not attempted, code reason: 7-Patient Refused. 9-Not Applicable-not attempted and the patient did not perform the activity before the current illness, exacerbation or injury. 10-Not Attempted due to Environmental Limitations-(lack of equipment, weather restraints, etc.). 88-Not Attempted due to Medical Conditions or Safety Concerns. Upper Body Dressing (QC): 3 (Min A with donning shirt due to shirt getting stuck on pt's L shoulder.) Lower Body Dressing (QC): 3 (Min A with pant hike, and min A standing balance. Pt required moderate verbal cues with task.) Other Treatment [id number] OT tx: Pt transferred supine to sit EOB with Min A. Pt then donned shirt and pants at EOB. [id number] OT/PT cotreat due to skill of 2 clinicians required which a rn rehab could not perform to coordinate UE/LEs and to safely train pt's in functional transfers/mobility/ADLs. OT focused on UE placement, ADLs, and cues for sequencing and safety while PT focused on functional mobility, LE placement, and gross overall movements. Pt taken to therapy gym via w/c. Pt's educated on SPT from w/c to/from EOB, and with supine<>sit transfers. Pt able to demo understanding of transfers with pt. Pt's educated on how to safely ambulate with pt using sherrie-walker, pt's demo'd understanding. Pt taken to large shower area where pt and educated on bath bench, they verbalize understanding. He then returned to his room, where his was educated on ways to help pt with donning/doffing clothes and hemiplegic dressing techniques, pt and verbalize understanding. Pt's states no concerns/questions after tx. Pt completed SPT from w/c to recliner. Post cotreat, pt seated in recliner, call light in reach and all needs met. Education OT Patient Education: Correct positioning, Modified ADL techniques, Progress toward Goal/Update tx plan, Purpose of tx/functional activities Teaching Recipient: Patient, Significant Other Teaching Methods: Demonstration, Discussion Response to Teaching: Verbalize Understanding, Return Demonstration OT Crab Backer Goals Assisted Goals Time Frame: Oct 03, 2020 Eating (QC): 6 Oral Hygiene (QC): 6 Toileting Hygiene (QC): 4 Shower/Bathe Self (QC): 4 Upper Body Dressing (QC): 6 Lower Body Dressing (QC): 4 On/Off Footwear (QC): 4 Additional Goals: 1-Demonstrate ADL Tasks, 2-Verbalize Understanding, 3-ImproveStrength/Francesca 1=Demonstrate adherence to instructed precautions during ADL tasks. 2=Patient will verbalize/demonstrate understanding of assistive devices/modifications for ADL. 3=Patient will improve strength/tolerance for activity to enable patient to perform ADL's. OT Education/Plan Problem List/Assessment Assessment: Decreased Activ Tolerance, Decreased UE Strength, Impaired Funct Balance, Impaired I ADL's, Impaired Self-Care Skills Discharge Recommendations Plan/Recommendations: Continue POC Treatment Plan/Plan of Care Patient would benefit from OT for education, treatment and training to promote independence in ADL's, mobility, safety and/or upper extremity function for ADL's. Plan of Care: ADL Retraining, Functional Mobility, Group Exercise/Act as Ind, UE Funct Exercise/Act, UE Neuromus Re-Ed/Coord Treatment Duration: Oct 03, 2020 Frequency: At least 5 of 7 days/Wk (IRF) Estimated Hrs Per Day: 1.5 hours per day Agreement: Yes Rehab Potential: Fair Time/GCodes Start Time: 09:45 Stop Time: 11:00 Total Time Billed (hr/min): 75 Billed Treatment Time 1, ADL (15'), FA 4 (60') WILFREDO CORLEY OT Sep 29, 2020 11:02
--- NOTE | 2020-09-29 12:34 | Physical Therapy Daily Note ---
PT Daily Note-Current Subjective Patient sitting EOB pre tx, agrees to PT, has no complaints of pain at rest. Will be co-treating with OT due to poor patient mobility, strength, endurance, balance, will be performing family education with his . Appearance Patient in recliner post tx with nurse call, phone, tray, all needs met. Mental Status Patient Orientation: Person, Place, Situation Transfers SCALE: Activities may be completed with or without assistive devices. 9-Ywfinrjztr-dsynwmw completes the activity by him/herself with no assistance from a helper. 5-Set-up or Clean-up Assistance-helper sets up or cleans up; patient completes activity. [place] assists only prior to or following the activity. 4-Supervision or Touching Assistance-helper provides verbal cues and/or touching/steadying and/or contact guard assistance as patient completes activity. Assistance may be provided throughout the activity or intermittently. 3-Partial/Moderate Assistance-helper does LESS THAN HALF the effort. [place] lift s, holds or supports trunk or limbs, but provides less than half the effort. 2-Substantial/Maximal Assistance-helper does MORE THAN HALF the effort. [place] lifts or holds trunk or limbs and provides more than half the effort. 5-Vcmwbjkcn-yjttxq does ALL the effort. Patient does none of the effort to complete the activity. Or, the assistance of 2 or more helpers is required for the patient to complete the activity. If activity was not attempted, code reason: 7-Patient Refused. 9-Not Applicable-not attempted and the patient did not perform the activity before the current illness, exacerbation or injury. 10-Not Attempted due to Environmental Limitations-(lack of equipment, weather restraints, etc.). 88-Not Attempted due to Medical Conditions or Safety Concerns. Roll Left & Right (QC): 3 Sit to Lying (QC): 4 Lying to Sitting/Side of Bed(Q: 3 Sit to Stand (QC): 4 Chair/Zcs-zm-Wanzv Xfer(QC): 3 Toilet Transfer (QC): 3 performed supine <-> sit, sit <-> stand and stand pivot transfers to both sides with first demonstration and instruction from PT and then on her own with cues for safety from PT. was able to do it on her own. Weight Bearing Full Weight Bearing Full Weight Bearing Gait Training Does the Patient Walk?: Yes Distance: 20' Walk 10 feet (QC): 3 Gait Persons Needed: 1 Gait Assistive Device: Walker Steffen Patient ambulated about 10' with PT and then the next 10' with , cues for safety. Wheelchair Training Does the Pt Use a Wheelchair?: Yes Wheel 50 ft with 2 turns (QC): 4 Wheel 150 ft (QC): 4 Type of Wheelchair: Manual 150'x2 Treatments educated on functional mobility with patient and she performed it and guarded on the correct side. appeared very nervous but was competent. Also performed dressing with OT. OT assisted with UE positioning and safety during tx. Assessment Current Status: Fair Progress slowly improving functional mobility PT Short Term Goals Short Term Goals Time Frame: Sep 18, 2020 Roll Left & Right: 6 Sit to lyin Lying to sitting on side of be: 3 Sit to stand: 3 Chair/qoe-iq-aklut transfer: 3 Toilet transfer: 3 Walk 10 feet: 3 Wheel 50ft w/2 turns: 4 Wheel 150 feet: 4 PT Track Repair Person Goals Alf Goals PT Alf Goals Time Frame: Oct 02, 2020 Roll Left & Right (QC): 6 Sit to Lying (QC): 6 Lying-Sitting on Side/Bed(QC): 6 Sit to Stand (QC): 4 Chair/Fyk-bb-Wrlba Xfer(QC): 4 Toilet Transfer (QC): 4 Car Transfer (QC): 4 Does the Patient Walk: No and Walking Goal IS indicated Walk 10 feet (QC): 4 Walk 50ft with 2 Turns (QC): 4 Walk 150 ft (QC): 4 Walking 10ft on Uneven Surface: 4 1 Step (curb) (QC): 3 4 Steps (QC): 3 12 Steps (QC): 88 Picking up an Object (QC): 4 Wheel 50 feet with 2 turns (QC: 6 Wheel 150 feet: 6 PT Plan Problem List Problem List: Activity Tolerance, Functional Strength, Safety, Balance, Gait, Transfer, Bed Mobility, ROM Treatment/Plan Treatment Plan: Continue Plan of Care Treatment Plan: Bed Mobility, Education, Functional Activity Francesca, Functional Strength, Group Therapy, Gait, Safety, Therapeutic Exercise, Transfers Treatment Duration: Sep 25, 2020 Frequency: At least 5 of 7 days/Wk (IRF) Estimated Hrs Per Day: 1.5 hours per day Patient and/or Family Agrees t: Yes Safety Risks/Education Patient Education: Gait Training, Transfer Techniques, Correct Positioning, W/C Management, Safety Issues Teaching Recipient: Patient Teaching Methods: Demonstration, Discussion Response to Teaching: Reinforcement Needed Time/GCodes Time In: 1000 Time Out: 1100 Total Billed Treatment Time: 60 Total Billed Treatment 1 visit FA 60' co-treated with OT for 60' KRISTINE HAWK PT Sep 29, 2020 12:34
--- NOTE | 2020-09-29 13:57 | Physical Therapy Daily Note ---
PT Daily Note-Current Subjective Patient in recliner pre tx, agrees to PT, has no complaints of pain at rest, has unrated right knee pain with ambulation. Appearance Patient in recliner post tx with nurse call, phone, tray, all needs met. Mental Status Patient Orientation: Person, Place, Situation, Normal For Age Transfers SCALE: Activities may be completed with or without assistive devices. 0-Aviufxzvxm-vbnramn completes the activity by him/herself with no assistance from a helper. 5-Set-up or Clean-up Assistance-helper sets up or cleans up; patient completes activity. [place] assists only prior to or following the activity. 4-Supervision or Touching Assistance-helper provides verbal cues and/or touching/steadying and/or contact guard assistance as patient completes activity. Assistance may be provided throughout the activity or intermittently. 3-Partial/Moderate Assistance-helper does LESS THAN HALF the effort. [place] lifts, holds or supports trunk or limbs, but provides less than half the effort. 2-Substantial/Maximal Assistance-helper does MORE THAN HALF the effort. [place] lifts or holds trunk or limbs and provides more than half the effort. 8-Ddyfzoqjf-rxmany does ALL the effort. Patient does none of the effort to complete the activity. Or, the assistance of 2 or more helpers is required for the patient to complete the activity. If activity was not attempted, code reason: 7-Patient Refused. 9-Not Applicable-not attempted and the patient did not perform the activity before the current illness, exacerbation or injury. 10-Not Attempted due to Environmental Limitations-(lack of equipment, weather restraints, etc.). 88-Not Attempted due to Medical Conditions or Safety Concerns. Sit to Stand (QC): 3 Chair/Yxs-dm-Ezmuh Xfer(QC): 3 Weight Bearing Full Weight Bearing Full Weight Bearing Gait Training Distance: 75'x2 Walk 10 feet (QC): 3 Walk 50 ft with 2 Turns(QC): 3 Gait Persons Needed: 1 Gait Assistive Device: Walker Steffen min assist for balance, patient is able to advance his left leg without assist, but needs occasional assist with weight shifting, making his left foot clearance easier Treatments ambulation Assessment Current Status: Fair Progress slowly improving ambulation PT Short Term Goals Short Term Goals Time Frame: Sep 18, 2020 Roll Left & Right: 6 Sit to lyin Lying to sitting on side of be: 3 Sit to stand: 3 Chair/tte-gm-afvsm transfer: 3 Toilet transfer: 3 Walk 10 feet: 3 Wheel 50ft w/2 turns: 4 Wheel 150 feet: 4 PT Group Home Goals Group Home Goals PT Net Wpf Developer Goals Time Frame: Oct 02, 2020 Roll Left & Right (QC): 6 Sit to Lying (QC): 6 Lying-Sitting on Side/Bed(QC): 6 Sit to Stand (QC): 4 Chair/Ksu-eo-Rqxwn Xfer(QC): 4 Toilet Transfer (QC): 4 Car Transfer (QC): 4 Does the Patient Walk: No and Walking Goal IS indicated Walk 10 feet (QC): 4 Walk 50ft with 2 Turns (QC): 4 Walk 150 ft (QC): 4 Walking 10ft on Uneven Surface: 4 1 Step (curb) (QC): 3 4 Steps (QC): 3 12 Steps (QC): 88 Picking up an Object (QC): 4 Wheel 50 feet with 2 turns (QC: 6 Wheel 150 feet: 6 PT Plan Problem List Problem List: Activity Tolerance, Functional Strength, Safety, Balance, Gait, Transfer, Bed Mobility, ROM Treatment/Plan Treatment Plan: Continue Plan of Care Treatment Plan: Bed Mobility, Education, Functional Activity Francesca, Functional Strength, Group Therapy, Gait, Safety, Therapeutic Exercise, Transfers Treatment Duration: Sep 25, 2020 Frequency: At least 5 of 7 days/Wk (IRF) Estimated Hrs Per Day: 1.5 hours per day Patient and/or Family Agrees t: Yes Safety Risks/Education Patient Education: Gait Training, Transfer Techniques, Correct Positioning, Safety Issues Teaching Recipient: Patient Teaching Methods: Demonstration, Discussion Response to Teaching: Reinforcement Needed Time/GCodes Time In: 1335 Time Out: 1350 Total Billed Treatment Time: 15 Total Billed Treatment 1 visit GT 15' KRISTINE HAWK PT Sep 29, 2020 13:57
[2020-09-29] MEDS: ACETAMINOPHEN 500 MG TAB (TYLENOL) PO PRN (14:26)
--- NOTE | 2020-09-29 14:35 | Speech Therapy Daily Note ---
Speech Daily Progress Note Subjective Date Seen by Provider: Sep 29, 2020 Time Seen by Provider: 00:30 Patient was sitting up in his recliner playing on his tablet. Patient voiced concerns about going home and having his care for him. Objective Patient completed q/a related to his return home, his needs and assistance available with 90% given minimal repetitions. Assessment Assessment Current Status: Good Progress Treatment Plan Continue Plan of Care Speech Short Term Goals Short Term Goals Short Term Goals 1) The patient will complete memory tasks related to her daily needs at 80% or greater with minimal cues. 2) The patient will complete safety awareness tasks related to her daily needs at 80% or greater with minimal cues. 3) The patient will complete problem solving tasks related to her daily needs at 80% or greater with minimal cues. 4) The patient will complete OME for improving speech intelligibility. Speech Standards Analyst Goals Standards Analyst Goals Patient will improve cognitive and speech abilities in order to effectively meet his daily needs with minimal assist. Speech-Plan Patient/Family Goals Patient/Family Goals: Patient plans on returning to his home where he lives with his . Treatment Plan Speech Therapy Treatment Plan: Continue Plan of Care Treatment Duration: Sep 25, 2020 Frequency: 4 times per week (Patient will receive skilled ST 4-5x per week) Estimated Hrs Per Day: .5 hour per day Rehab Potential: Fair Barriers to Learning: Patient's recent CVA and underlying medical issues. Pt/Family Agrees to Plan: Yes Safety Risks/Education Teaching Recipient: Patient Teaching Methods: Demonstration, Discussion Response to Teaching: Verbalize Understanding, Return Demonstration Education Topics Provided: Continued safety upon his return home. Time Speech Therapy Time In: 13:00 Speech Therapy Time Out: 13:30 Total Billed Time: 30 Billed Treatment Time [address] Sep 29, 2020 14:35
--- NOTE | 2020-09-29 16:05 | NUR ---
CM/SS CONCURRENT DOCUMENTATION Patient's spouse Steffany here as planned this a.m. to participate in education and training for patient's return home. Therapy team reported in the positive that Steffany was motivated and appeared able to assist patient in the home with adequate assistive devices. Discussed with Steffany and patient, again reviewed the anticipated DME. Steffany will contact [employer] about renting a ramp. Per Therapy, patient will need sherrie-walker, wheelchair, BSC, tub transfer bench. Steffany has left [facility] paperwork for completion, content writer will assist. After discussion with various team members, we will stay on course to review patient Monday 10/01 and likely set a target discharge date at that time.
[2020-09-29 17:53] VITALS: BP 103/69
[2020-09-29] MEDS: MIRTAZAPINE 15 MG (REMERON) TAB PO SCH (22:10)
[2020-09-29] MEDS: LORazepam 0.5 MG (ATIVAN) TABLET PO SCH (22:10)
[2020-09-29] MEDS: MELATONIN 3 MG TABLET PO PRN (22:10)
[2020-09-30 06:00] VITALS: BP 110/62
[2020-09-30] MEDS: MULTIVIT W/MINERALS TAB (THERAGRAN M) PO SCH (06:16)
[2020-09-30] MEDS: THIAMINE 100 MG (VITAMIN B-1) TAB PO SCH (06:16)
[2020-09-30] MEDS: KCL 10 MEQ TAB (MICRO K) PO SCH (06:16)
--- NOTE | 2020-09-30 08:35 | PM&R Progress Note ---
Subjective HPI/CC On Admission Date Seen by Provider: Sep 30, 2020 Time Seen by Provider: 08:30 Subjective/Events-last exam 09/30/20: Becoming more and more independent Pt is incontinent was very helpful yesterday during family training 09/29/20: DC planning Family training today Incontinence management Doing pretty well Bowels are moving Overall feels like he is making progress 09/28/20: BM today Toileting improved Bladder training every 2 hours going well 09/27/20: Incontinence discussed Right knee pain reported is improved Voltaren gel maintained 09/26/20: Right knee about the same since knee infection No falls Incontinence continues Monitoring closely 09/25/20: Pt complaining of right knee pain Denies any other significant issues Will check X-ray and consult orthopod for possible injections since he is flaccid on the left side and really needs the right knee to ambulate Will monitor pt closely 09/24/20: Bowels moved yesterday Reports that he just spills his urinal in bed but he is definitely incontinent Voltaren Gel will be given Participating in therapy 09/23/20: Pt had a crazy dream last night Remeron may cause that so will monitor that closely and may need to discontinue Bowels moved yesterday Incontinence is being managed by using the urinal 09/22/20: Loop recorder maintained Incontinence continues Bowels are moving well Swallowing pretty well I witnessed him actually walking with one-assist No falls 09/21/20: Patient improved No pain reported Incontinence will be managed with bladder routine 09/20/20: Saw patient in midst of bed linen change due to incontinence bladder Working with therapy No pain reported except shoulder 09/19/20: Patient a bit down in spirits today No pain No ETOH withdrawal No falls Incontinence noted 09/18/20: Improved status Gets frustrated easily Has bad days and good days Loop recorder placed so will DC Tely Incontinence noted 09/17/20: Bowels moved yesterday Incontinent a bit with bowel and bladder so will try to get on bladder emptying schedule a long with bowel regimen Was able to move and lift up his left arm with a lot of effort but was remarkable Pt improved and much better spirits today 09/16/20: Telemetry needs to be maintained until loop recorder is placed Will reach out to Dr. Walker tomorrow Incontinence is an issue so will try to work with him in the urinal positional hernadez to help him In significant denial Behavioral health consult Bowels moved yesterday Catastrophic stroke and his coping mechanism is no longer available with smoking and drinking so that is causing a significant issue 09/15/20: Bowels finally moved today Lifting left leg a bit Tolerating food intake without much dysphasia Psych evaluation will be provided because of anxiety and depression and situational grief reaction due to catastrophic stroke Pt overall is very depressed Labs are okay 09/14/20: Turn Q 2hours Refusing stool softners BM 09/10/20 Colace and Senna taken today 09/13/20: Advancing diet Moved left leg a bit today No function in left arm though Shower today and shave Crushing his meds with pudding since he did choke on thin liquids Advancing diet as tolerated Bowels moved two days ago Pt appears to be very chronically ill Conferred with RN Reviewed therapy notes Checked meds and labs Review of Systems General: Fatigue, Malaise Neurological: Weakness, Incoordination Objective Exam Vital Signs Vital Signs Date Time Temp Pulse Resp B/P (MAP) Pulse Ox O2 Delivery O2 Flow Rate FiO2 10/01/20 06:09 36.2 85 18 130/73 (92) 96 Room Air Capillary Refill : Less Than 3 Seconds General Appearance: No Apparent Distress, WD/WN, Anxious, Chronically ill HEENT: PERRL/EOMI, Normal ENT Inspection, Pharynx Normal Neck: Full Range of Motion, Normal Inspection, Non Tender, Supple, Carotid Bruit Respiratory: Chest Non Tender, Lungs Clear, Normal Breath Sounds, No Accessory Muscle Use, No Respiratory Distress Cardiovascular: Regular Rate, Rhythm, No Edema, No Gallop, No JVD, No Murmur, Normal Peripheral Pulses Gastrointestinal: Normal Bowel Sounds, No Organomegaly, No Pulsatile Mass, Non Tender, Soft Back: Normal Inspection, No CVA Tenderness, No Vertebral Tenderness Extremity: Normal Capillary Refill, Normal Inspection, Normal Range of Motion (except left side weakness), Non Tender, No Calf Tenderness, No Pedal Edema Neurologic/Psychiatric: Alert, Oriented x3, Normal Mood/Affect, audio production manager II-XII Norm as Tested, Abnormal Gait, Depressed Affect, Facial Droop (left), Motor Weakness (left sided flaccidity) Skin: Normal Color, Warm/Dry Lymphatic: No Adenopathy Results/Procedures Lab Patient resulted labs reviewed. FIM Transfers Therapy Code Descriptions/Definitions Functional [place] Measure: 0=Not Assessed/NA 4=Minimal Assistance 1=Total Assistance 5=Supervision or Setup 2=Maximal Assistance 6=Modified [place] 3=Moderate Assistance 7=Complete IndependenceSCALE: Activities may be completed with or without assistive devices. 4-Tdxatdwkth-rcvtvbk completes the activity by him/herself with no assistance from a helper. 5-Set-up or Clean-up Assistance-helper sets up or cleans up; patient completes activity. [place] assists only prior to or following the activity. 4-Supervision or Touching Assistance-helper provides verbal cues and/or touching/steadying and/or contact guard assistance as patient completes activity. Assistance may be provided throughout the activity or intermittently. 3-Partial/Moderate Assistance-helper does LESS THAN HALF the effort. [place] lifts, holds or supports trunk or limbs, but provides less than half the effort. 2-Substantial/Maximal Assistance-helper does MORE THAN HALF the effort. [place] lifts or holds trunk or limbs and provides more than half the effort. 0-Tdbapnarf-umgvwv does ALL the effort. Patient does none of the effort to complete the activity. Or, the assistance of 2 or more helpers is required for the patient to complete the activity. If activity was not attempted, code reason: 7-Patient Refused. 9-Not Applicable-not attempted and the patient did not perform the activity before the current illness, exacerbation or injury. 10-Not Attempted due to Environmental Limitations-(lack of equipment, weather restraints, etc.). 88-Not Attempted due to Medical Conditions or Safety Concerns. Roll Left to Right (QC): 3 Sit to Lying (QC): 4 Sit to Stand (QC): 3 Chair/Trw-cz-Wiksd Xfer(QC): 3 Car Transfer (QC): 2 Gait Training Does the Patient Walk?: Yes Distance: 75'x2 Walk 10 feet (QC): 3 Walk 50 ft with 2 Turns(QC): 3 Walk 150 ft (QC): 88 Walking 10ft/uneven surface-QC: 88 Gait Persons Needed: 1 Gait Assistive Device: Walker Steffen Wheelchair Training Does the Pt Use a Wheelchair?: Yes Distance: 150' Wheel 50 ft with 2 turns (QC): 4 Wheel 150 ft (QC): 4 Type of Wheelchair: Manual Stair Training 1 Step (curb) (QC): 88 4 Steps (QC): 88 12 Steps (QC): 88 Balance Picking up an Object (QC): 88 ADL-Treatment Eating (QC): 5 (set up assistance, pt reports being able to use utensils, bring food to mouth, and eat.) Oral Hygiene (QC): 5 (set up at tray table) Shower/Bathe Self (QC): 4 (SBA, pt washed/dried all parts seated on SC. Min verbal cues with task.) Upper Body Dressing (QC): 3 (Min A with donning shirt due to shirt getting stuck on pt's L shoulder.) Lower Body Dressing (QC): 3 (Min A with pant hike, and min A standing balance. Pt required moderate verbal cues with task.) On/Off Footwear (QC): 4 (Moderate cues to don/doff shoes/socks.) Toileting Hygiene (QC): 1 (Pt required assistance managing clothing down/up, and assistance with hygiene) Toilet Transfer (QC): 2 (Max A, pt had poor carry over of stand pivot transfer between w/c and toilet. Max verbal cues with transfer.) Assessment/Plan Assessment and Plan Assess & Plan/Chief Complaint Assessment: Catastrophic CVA with left sided weakness Smoker COPD HTN Gout Neuropathy CRI Alcoholism Depression Anxiety Plan: IRF protocol Pain meds Baclofen Home meds Ativan for etoh withdrawal symptoms 09/12/20: Dysphagia screening Monitor for return of function left weakness 09/13/20: Left leg function a bit today Shower today Monitor closely 09/14/20: BM regimen Turn Q 2hours IRF protocol 09/15/20: Monitor BP Fall risk Monitor dysphagia and aspiration risk 09/16/20: Nicotine patch Monitor aspiration 09/17/20: Left arm improving dramatically No pain reported Improved status 09/18/20: Improved status Loop recorder DC Tely 09/19/20: Monitor closely Loop recorder site is less tender now Fall risk incontinence care 09/20/20: Incontinence care Monitor bowels Therapy to intensify 09/21/20: Monitor incontinence 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 to decrease personnel worker burden 09/22/20: PT OT ST Incontinence 09/23/20: Monitor incontinence Monitor dreams may need to DC Remeron 09/24/20: Monitor incontinence Urinal spilling will need close monitoring 09/25/20: Right knee eval by Dr Huang team Check xrays 09/26/20: Monitor right knee pain Continue aggressive therapy 09/27/20: Incontinence care Right knee pain management 09/28/20: Bladder training Check labs in am 09/29/20: Labs stable IRF protocol Education for today 09/30/20: Incontinence management DC soon Right knee pain management (1) Acute CVA (cerebrovascular accident) Status: Acute (2) Left-sided weakness Status: Acute (3) Gout (4) Alcoholism Status: Chronic (5) Ulcer of great toe Status: Acute (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
[2020-09-30] MEDS: SENNA W/DOCUSATE (SENOKOT S) TABLET PO SCH ×2 (09:00→22:51)
[2020-09-30] MEDS: DOCUSATE SODIUM 10 MG/ML 10 ML UDC (COLACE) NG SCH ×2 (09:00→22:51)
--- NOTE | 2020-09-30 09:27 | Cardiology Progress Note ---
Subjective Date Seen by Provider: Sep 30, 2020 Time Seen by Provider: 09:26 Subjective/Events-last exam Patient with PT, no new complaints. Denies any chest pain or palpitations. Review of Systems General: No Chills, No Night Sweats, No Fatigue, No Malaise, No Appetite, No Other HEENT: No Head Aches, No Visual Changes, No Eye Pain, No Ear Pain, No Dysphasia, No Sinus Congestion, No Post Nasal Drip, No Sore Throat, No Other Pulmonary: No Dyspnea, No Cough, No Pleuritic Chest Pain, No Other Cardiovascular: No: Chest Pain, Palpitations, Orthopnea, Paroxysmal Noc. Dyspnea, Edema, Lt Headedness, Other Objective-Cardiology Exam Last Set of Vital Signs Vital Signs 09/30/20 09/30/20 06:00 09:00 Temp 36.6 Pulse 80 Resp 16 B/P (MAP) 110/62 (78) Pulse Ox 94 O2 Delivery Room Air Capillary Refill : Less Than 3 Seconds I&O Intake and Output 09/30/20 00:00 Intake Total 1520 ml Output Total 450 ml Balance 1070 ml Intake Oral 1520 ml Output Urine Total 450 ml # Voids 8 # Bowel Movements 1 General: Alert, Oriented X3, Cooperative HEENT: Atraumatic, PERRLA Neck: Supple, No JVD, No Thyromegaly Lungs: Clear to Auscultation, Normal Air Movement Heart: Regular Rate, Normal S1, Normal S2, No Murmurs Abdomen: Normal Bowel Sounds, Soft, No Tenderness, No Hepatosplenomegaly, No Masses Extremities: No Clubbing, No Cyanosis, No Edema, Normal Pulses, No Tenderness/Swelling Skin: No Rashes, No Breakdown, No Significant Lesion Neuro: Normal Speech, Other (still having left-sided weakness) Psych/Mental Status: Mental Status NL, Mood NL A/P-Cardiology Admission Diagnosis CVA HTN HLP Tobaccoism Assessment/Plan Cryptogenic CVA, recieved tPA, still having left sided weakness. 2D echo done 09/09/2020 revealed grade 1 diastolic dysfunction, EF 50-55%, PA 40-45%, CTA Head and neck showed no KASANDRA, status post loop monitor implant, doing well. Continue to monitor Hypertension, controlled, continue to monitor Hyperlipidemia, maintained on statin Tobaccoism, educated on smoking cessation ETOH use, discussed limiting alcohol intake Patient was seen and evaluated with Nina, examination performed, management plan was discussed, agree with the current scribed note, I made few changes to the note using Italic font Patient was seen and evaluated, sitting comfortably, no new complaint Loop monitor site is healing well. Continue to monitor Clinical Quality Measures DVT/VTE Risk/Contraindication: Risk Factor Score Per Nursin RFS Level Per Nursing on Admit: 4+=Very High NINA FERRARA Sep 30, 2020 9:27 am ALEXIA FAIRCHILD MD Sep 30, 2020 11:58 am
[2020-09-30] MEDS: ASPIRIN E.C. 325 MG (ECOTRIN) TABLET PO SCH (09:49)
[2020-09-30] MEDS: NICOTINE 14 MG (NICODERM) PATCH TD SCH (09:49)
[2020-09-30] MEDS: FOLIC ACID 1 MG TAB PO SCH (09:49)
[2020-09-30] MEDS: amLODIPine 5 MG (NORVASC) TAB PO SCH (09:49)
[2020-09-30] MEDS: MAGNESIUM OXIDE (MAG-OX)400 MG TAB PO SCH ×2 (09:49→17:01)
[2020-09-30] MEDS: ATENOLOL 25 MG (TENORMIN) TAB PO SCH (09:49)
[2020-09-30] MEDS: NICOTINE PATCH REMOVAL TP SCH (09:49)
[2020-09-30] MEDS: DICLOFENAC 1% GEL 100 GM (VOLTAREN) TUBE TOP SCH ×4 (09:50→22:32)
--- NOTE | 2020-09-30 09:50 | Physical Therapy Daily Note ---
PT Daily Note-Current Subjective Patient in recliner pre tx, agrees to PT, has no complaints of pain. Appearance Patient in recliner post tx with nurse call, phone, tray, all needs met. Mental Status Patient Orientation: Person, Place, Situation, Normal For Age Transfers SCALE: Activities may be completed with or without assistive devices. 1-Lllxixdhcx-phqybee completes the activity by him/herself with no assistance from a helper. 5-Set-up or Clean-up Assistance-helper sets up or cleans up; patient completes activity. [place] assists only prior to or following the activity. 4-Supervision or Touching Assistance-helper provides verbal cues and/or touching/steadying and/or contact guard assistance as patient completes activity. Assistance may be provided throughout the activity or intermittently. 3-Partial/Moderate Assistance-helper does LESS THAN HALF the effort. [place] lifts, holds or supports trunk or limbs, but provides less than half the effort. 2-Substantial/Maximal Assistance-helper does MORE THAN HALF the effort. [place] lifts or holds trunk or limbs and provides more than half the effort. 5-Pjbjbfvzs-vfktwz does ALL the effort. Patient does none of the effort to complete the activity. Or, the assistance of 2 or more helpers is required for the patient to complete the activity. If activity was not attempted, code reason: 7-Patient Refused. 9-Not Applicable-not attempted and the patient did not perform the activity before the current illness, exacerbation or injury. 10-Not Attempted due to Environmental Limitations-(lack of equipment, weather restraints, etc.). 88-Not Attempted due to Medical Conditions or Safety Concerns. Sit to Stand (QC): 3 Chair/Mes-yp-Kfbld Xfer(QC): 3 Car Transfer (QC): 3 Patient is almost CGA with sit to stand and transfers to the right side Weight Bearing Full Weight Bearing Full Weight Bearing Gait Training Distance: 150', 75'x2 Walk 10 feet (QC): 3 Walk 50 ft with 2 Turns(QC): 3 Walk 150 ft (QC): 3 Gait Persons Needed: 1 Gait Assistive Device: Walker Steffen occasional assist with balance Exercises LAQ alternating for 5 min NuStep Minutes: 15 NuStep Workload: 4 Treatments transfers, ambulation, functional strengthening Assessment Current Status: Fair Progress improving balance with ambulation and endurance PT Short Term Goals Short Term Goals Time Frame: Sep 18, 2020 Roll Left & Right: 6 Sit to lyin Lying to sitting on side of be: 3 Sit to stand: 3 Chair/buo-il-hyvvm transfer: 3 Toilet transfer: 3 Walk 10 feet: 3 Wheel 50ft w/2 turns: 4 Wheel 150 feet: 4 PT Senior Care Goals Liquid Yeast Supervisor Goals PT Liquid Yeast Supervisor Goals Time Frame: Oct 02, 2020 Roll Left & Right (QC): 6 Sit to Lying (QC): 6 Lying-Sitting on Side/Bed(QC): 6 Sit to Stand (QC): 4 Chair/Oit-zd-Ffhqz Xfer(QC): 4 Toilet Transfer (QC): 4 Car Transfer (QC): 4 Does the Patient Walk: No and Walking Goal IS indicated Walk 10 feet (QC): 4 Walk 50ft with 2 Turns (QC): 4 Walk 150 ft (QC): 4 Walking 10ft on Uneven Surface: 4 1 Step (curb) (QC): 3 4 Steps (QC): 3 12 Steps (QC): 88 Picking up an Object (QC): 4 Wheel 50 feet with 2 turns (QC: 6 Wheel 150 feet: 6 PT Plan Problem List Problem List: Activity Tolerance, Functional Strength, Safety, Balance, Gait, Transfer, Bed Mobility, ROM Treatment/Plan Treatment Plan: Continue Plan of Care Treatment Plan: Bed Mobility, Education, Functional Activity Francesca, Functional Strength, Group Therapy, Gait, Safety, Therapeutic Exercise, Transfers Treatment Duration: Sep 25, 2020 Frequency: At least 5 of 7 days/Wk (IRF) Estimated Hrs Per Day: 1.5 hours per day Patient and/or Family Agrees t: Yes Safety Risks/Education Patient Education: Gait Training, Transfer Techniques, Correct Positioning, Safety Issues Teaching Recipient: Patient Teaching Methods: Demonstration, Discussion Response to Teaching: Reinforcement Needed Time/GCodes Time In: 0900 Time Out: 1000 Total Billed Treatment Time: 60 Total Billed Treatment 1 visit EX 20' FA 40' KRISTINE HAWK PT Sep 30, 2020 09:50
[2020-09-30] MEDS: polyethylene glycoL POWDER 17 GM (MIRALAX) PACK PO SCH ×2 (10:04→22:51)
--- NOTE | 2020-09-30 11:28 | Occupational Ther Daily Note ---
OT Current Status-Daily Note Subjective Pt agreeable to OT Tx with focus on UE exercises. Mental Status/Objective Patient Orientation: Person, Place, Time, Situation ADL-Treatment Therapy Code Descriptions/Definitions Functional [place] Measure: 0=Not Assessed/NA 4=Minimal Assistance 1=Total Assistance 5=Supervision or Setup 2=Maximal Assistance 6=Modified [place] 3=Moderate Assistance 7=Complete IndependenceSCALE: Activities may be completed with or without assistive devices. 7-Irhsdorhkz-olfrdgp completes the activity by him/herself with no assistance from a helper. 5-Set-up or Clean-up Assistance-helper sets up or cleans up; patient completes activity. [place] assists only prior to or following the activity. 4-Supervision or Touching Assistance-helper provides verbal cues and/or touching/steadying and/or contact guard assistance as patient completes activity. Assistance may be provided throughout the activity or intermittently. 3-Partial/Moderate Assistance-helper does LESS THAN HALF the effort. [place] lifts, holds or supports trunk or limbs, but provides less than half the effort. 2-Substantial/Maximal Assistance-helper does MORE THAN HALF the effort. [place] lifts or holds trunk or limbs and provides more than half the effort. 8-Wjlagfkdq-xnvesi does ALL the effort. Patient does none of the effort to complete the activity. Or, the assistance of 2 or more helpers is required for the patient to complete the activity. If activity was not attempted, code reason: 7-Patient Refused. 9-Not Applicable-not attempted and the patient did not perform the activity bef ore the current illness, exacerbation or injury. 10-Not Attempted due to Environmental Limitations-(lack of equipment, weather r estraints, etc.). 88-Not Attempted due to Medical Conditions or Safety Concerns. Oral Hygiene (QC): 6 (Pt able to complete independently at tray table.) Other Treatment Pt seated in recliner, agreeable to OT Tx. Pt states he would like to shower tomorrow, but focus on UEs today. Pt brushed teeth at tray table, then transferred from recliner to w/c, SPT,min A. OT Tx focus on neuromuscular reeducation of LUE. Pt completed 2x10 reps of towel slides in flexion and sca ption at table. He required assistance with moving his arm forward, he was then able to pull it back towards his body. Pt completed 2x10 reps of scapular elevation and retraction. Pt expresses frustration with his arm movement, OT educated pt on typical progression post CVA, he verbalized understanding. Pt then completed x5 reps towel slides of elbow flexion, with facilitation of t apping at the biceps muscle. Pt required rest breaks between each exercise. Pt self-propelled w/c back to his room, transferring from w/c to recliner via SPT towards L side, min A. Post OT tx, pt seated in recliner, call light in reach and all needs met. Education OT Patient Education: Correct positioning, Energy conservation, Modified ADL techniques, Progress toward Goal/Update tx plan, Purpose of tx/functional activities, Safety issues, Transfer techniques Teaching Recipient: Patient Teaching Methods: Discussion Response to Teaching: Verbalize Understanding OT [place] Goals Senior Care Goals Time Frame: Oct 03, 2020 Eating (QC): 6 Oral Hygiene (QC): 6 Toileting Hygiene (QC): 4 Shower/Bathe Self (QC): 4 Upper Body Dressing (QC): 6 Lower Body Dressing (QC): 4 On/Off Footwear (QC): 4 Additional Goals: 1-Demonstrate ADL Tasks, 2-Verbalize Understanding, 3- ImproveStrength/Francesca 1=Demonstrate adherence to instructed precautions during ADL tasks. 2=Patient will verbalize/demonstrate understanding of assistive devices/modifications for ADL. 3=Patient will improve strength/tolerance for activity to enable patient to perform ADL's. OT Education/Plan Problem List/Assessment Assessment: Decreased Activ Tolerance, Decreased UE Strength, Impaired Funct Balance, Impaired I ADL's, Impaired Self-Care Skills Discharge Recommendations Plan/Recommendations: Continue POC Treatment Plan/Plan of Care Patient would benefit from OT for education, treatment and training to promote independence in ADL's, mobility, safety and/or upper extremity function for ADL's. Plan of Care: ADL Retraining, Functional Mobility, Group Exercise/Act as Ind, UE Funct Exercise/Act, UE Neuromus Re-Ed/Coord Treatment Duration: Oct 03, 2020 Frequency: At least 5 of 7 days/Wk (IRF) Estimated Hrs Per Day: 1.5 hours per day Agreement: Yes Rehab Potential: Fair Time/GCodes Start Time: 10:00 Stop Time: 11:15 Total Time Billed (hr/min): 75 Billed Treatment Time 1, ADL (15'), FA 4 (60') WILFREDO CORLEY OT Sep 30, 2020 11:28
--- NOTE | 2020-09-30 13:50 | NUR ---
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 Explored patient's experiences with health and other situations outside his control. Transition Manager encouraged positive coping through reflection and validation of expressed determination and self-patience. The patient states his source of strength is his hope and goal of regaining the physical strength and ability lost as the result of his stroke. He expressed appreciation for Transition Manager listening and said he felt this released some stress.
--- NOTE | 2020-09-30 14:00 | Physical Therapy Daily Note ---
PT Daily Note-Current Subjective Patient in recliner pre tx, agrees to PT, has no complaints of pain. Appearance Patient in recliner post tx with nurse call, phone, tray, all needs met. Mental Status Patient Orientation: Normal For Age Transfers SCALE: Activities may be completed with or without assistive devices. 5-Qklgmckqiy-pzczqtv completes the activity by him/herself with no assistance from a helper. 5-Set-up or Clean-up Assistance-helper sets up or cleans up; patient completes activity. [place] assists only prior to or following the activity. 4-Supervision or Touching Assistance-helper provides verbal cues and/or touching/steadying and/or contact guard assistance as patient completes activity. Assistance may be provided throughout the activity or intermittently. 3-Partial/Moderate Assistance-helper does LESS THAN HALF the effort. [place] lifts, holds or supports trunk or limbs, but provides less than half the effort. 2-Substantial/Maximal Assistance-helper does MORE THAN HALF the effort. [place] l ifts or holds trunk or limbs and provides more than half the effort. 6-Ojhjtxcju-fzaynh does ALL the effort. Patient does none of the effort to complete the activity. Or, the assistance of 2 or more helpers is required for the patient to complete the activity. If activity was not attempted, code reason: 7-Patient Refused. 9-Not Applicable-not attempted and the patient did not perform the activity before the current illness, exacerbation or injury. 10-Not Attempted due to Environmental Limitations-(lack of equipment, weather restraints, etc.). 88-Not Attempted due to Medical Conditions or Safety Concerns. Sit to Stand (QC): 4 Chair/Fyj-rs-Klcou Xfer(QC): 4 Weight Bearing Full Weight Bearing Full Weight Bearing Gait Training Distance: 75'x2 Walk 10 feet (QC): 4 Walk 50 ft with 2 Turns(QC): 4 Gait Persons Needed: 1 Gait Assistive Device: Walker Steffen some steadying but no full LOB Treatments ambulation transfers Assessment Current Status: Fair Progress improving ambulation, less knee pain PT Short Term Goals Short Term Goals Time Frame: Sep 18, 2020 Roll Left & Right: 6 Sit to lyin Lying to sitting on side of be: 3 Sit to stand: 3 Chair/jfe-fd-ojinn transfer: 3 Toilet transfer: 3 Walk 10 feet: 3 Wheel 50ft w/2 turns: 4 Wheel 150 feet: 4 PT Custodial Goals Science Technicians Goals PT Science Technicians Goals Time Frame: Oct 02, 2020 Roll Left & Right (QC): 6 Sit to Lying (QC): 6 Lying-Sitting on Side/Bed(QC): 6 Sit to Stand (QC): 4 Chair/Ksz-ek-Jcbph Xfer(QC): 4 Toilet Transfer (QC): 4 Car Transfer (QC): 4 Does the Patient Walk: No and Walking Goal IS indicated Walk 10 feet (QC): 4 Walk 50ft with 2 Turns (QC): 4 Walk 150 ft (QC): 4 Walking 10ft on Uneven Surface: 4 1 Step (curb) (QC): 3 4 Steps (QC): 3 12 Steps (QC): 88 Picking up an Object (QC): 4 Wheel 50 feet with 2 turns (QC: 6 Wheel 150 feet: 6 PT Plan Problem List Problem List: Activity Tolerance, Functional Strength, Safety, Balance, Gait, Transfer, Bed Mobility, ROM Treatment/Plan Treatment Plan: Continue Plan of Care Treatment Plan: Bed Mobility, Education, Functional Activity Francesca, Functional Strength, Group Therapy, Gait, Safety, Therapeutic Exercise, Transfers Treatment Duration: Sep 25, 2020 Frequency: At least 5 of 7 days/Wk (IRF) Estimated Hrs Per Day: 1.5 hours per day Patient and/or Family Agrees t: Yes Safety Risks/Education Patient Education: Gait Training, Transfer Techniques, Correct Positioning, Safety Issues Teaching Recipient: Patient Teaching Methods: Demonstration, Discussion Response to Teaching: Reinforcement Needed Time/GCodes Time In: 1345 Time Out: 1400 Total Billed Treatment Time: 15 Total Billed Treatment 1 visit GT 15' KRISTINE HAWK PT Sep 30, 2020 14:00
--- NOTE | 2020-09-30 15:05 | Speech Therapy Daily Note ---
Speech Daily Progress Note Subjective Date Seen by Provider: Sep 30, 2020 Time Seen by Provider: 00:30 Patient was resting in his recliner after dressing himself. Objective Patient completed safety awareness questions related to his return home and needs at 90%. Assessment Assessment Current Status: Good Progress Treatment Plan Continue Plan of Care Speech Short Term Goals Short Term Goals Short Term Goals 1) The patient will complete memory tasks related to her daily needs at 80% or greater with minimal cues. 2) The patient will complete safety awareness tasks related to her daily needs at 80% or greater with minimal cues. 3) The patient will complete problem solving tasks related to her daily needs at 80% or greater with minimal cues. 4) The patient will complete OME for improving speech intelligibility. Speech Shelter Goals Supervisor Lens Generating Goals Patient will improve cognitive and speech abilities in order to effectively meet his daily needs with minimal assist. Speech-Plan Patient/Family Goals Patient/Family Goals: Patient plans on returning to his home where he lives with his . Treatment Plan Speech Therapy Treatment Plan: Continue Plan of Care Treatment Duration: Sep 25, 2020 Frequency: 4 times per week (Patient will receive skilled ST 4-5x per week) Estimated Hrs Per Day: .5 hour per day Rehab Potential: Fair Barriers to Learning: Patient's recent CVA deficits Pt/Family Agrees to Plan: Yes Safety Risks/Education Teaching Recipient: Patient Teaching Methods: Demonstration, Discussion Response to Teaching: Verbalize Understanding, Return Demonstration Education Topics Provided: Continued safety during ADL's Time Speech Therapy Time In: 08:30 Speech Therapy Time Out: 09:00 Total Billed Time: 30 Billed Treatment Time 1, YUVAL Flores Sep 30, 2020 15:05
--- NOTE | 2020-09-30 16:46 | NUR ---
CM/SS CONCURRENT DOCUMENTATION Spouse explored ramps with [facility] and they do not have any long enough. They recommended [employer] who have ramps available on [employer] and she will pursue through them. Patient target discharge anticipated early next week.
[2020-09-30] MEDS: ACETAMINOPHEN 500 MG TAB (TYLENOL) PO PRN (17:05)
[2020-09-30 18:00] VITALS: BP 117/74
[2020-09-30] MEDS: LORazepam 0.5 MG (ATIVAN) TABLET PO SCH (22:31)
[2020-09-30] MEDS: MIRTAZAPINE 15 MG (REMERON) TAB PO SCH (22:31)
[2020-09-30] MEDS: MELATONIN 3 MG TABLET PO PRN (22:31)
[2020-10-01 06:09] VITALS: BP 130/73
[2020-10-01] MEDS: THIAMINE 100 MG (VITAMIN B-1) TAB PO SCH (06:20)
[2020-10-01] MEDS: MULTIVIT W/MINERALS TAB (THERAGRAN M) PO SCH (06:20)
[2020-10-01] MEDS: KCL 10 MEQ TAB (MICRO K) PO SCH (06:20)
--- NOTE | 2020-10-01 07:10 | PM&R Progress Note ---
Subjective HPI/CC On Admission Date Seen by Provider: Oct 01, 2020 Time Seen by Provider: 09:30 Subjective/Events-last exam 10/01/20: Knee pain continues and he talks about it constantly Allopurinol will be restarted at 100mg twice a day but he has been off that of February of 2019 per my office charts and there has not been any refills, he thought it was gout and it is definitely not gout. He received a steroid injection in the knee by orthopedics and currently it does not appear to be gout DC plan for next week 09/30/20: Becoming more and more independent Pt is incontinent was very helpful yesterday during family training 09/29/20: DC planning Family training today Incontinence management Doing pretty well Bowels are moving Overall feels like he is making progress 09/28/20: BM today Toileting improved Bladder training every 2 hours going well 09/27/20: Incontinence discussed Right knee pain reported is improved Voltaren gel maintained 09/26/20: Right knee about the same since knee infection No falls Incontinence continues Monitoring closely 09/25/20: Pt complaining of right knee pain Denies any other significant issues Will check X-ray and consult orthopod for possible injections since he is flaccid on the left side and really needs the right knee to ambulate Will monitor pt closely 09/24/20: Bowels moved yesterday Reports that he just spills his urinal in bed but he is definitely incontinent Voltaren Gel will be given Participating in therapy 09/23/20: Pt had a crazy dream last night Remeron may cause that so will monitor that closely and may need to discontinue Bowels moved yesterday Incontinence is being managed by using the urinal 09/22/20: Loop recorder maintained Incontinence continues Bowels are moving well Swallowing pretty well I witnessed him actually walking with one-assist No falls 09/21/20: Patient improved No pain reported Incontinence will be managed with bladder routine 09/20/20: Saw patient in midst of bed linen change due to incontinence bladder Working with therapy No pain reported except shoulder 09/19/20: Patient a bit down in spirits today No pain No ETOH withdrawal No falls Incontinence noted 09/18/20: Improved status Gets frustrated easily Has bad days and good days Loop recorder placed so will DC Tely Incontinence noted 09/17/20: Bowels moved yesterday Incontinent a bit with bowel and bladder so will try to get on bladder emptying schedule a long with bowel regimen Was able to move and lift up his left arm with a lot of effort but was remarkable Pt improved and much better spirits today 09/16/20: Telemetry needs to be maintained until loop recorder is placed Will reach out to Dr. Walker tomorrow Incontinence is an issue so will try to work with him in the urinal positional hernadez to help him In significant denial Behavioral health consult Bowels moved yesterday Catastrophic stroke and his coping mechanism is no longer available with smoking and drinking so that is causing a significant issue 09/15/20: Bowels finally moved today Lifting left leg a bit Tolerating food intake without much dysphasia Psych evaluation will be provided because of anxiety and depression and situational grief reaction due to catastrophic stroke Pt overall is very depressed Labs are okay 09/14/20: Turn Q 2hours Refusing stool softners BM 09/10/20 Colace and Senna taken today 09/13/20: Advancing diet Moved left leg a bit today No function in left arm though Shower today and shave Crushing his meds with pudding since he did choke on thin liquids Advancing diet as tolerated Bowels moved two days ago Pt appears to be very chronically ill Conferred with RN Reviewed therapy notes Checked meds and labs Review of Systems Genitourinary: Incontinence Musculoskeletal: leg pain Neurological: Weakness, Incoordination Objective Exam Vital Signs Vital Signs Date Time Temp Pulse Resp B/P (MAP) Pulse Ox O2 Delivery O2 Flow Rate FiO2 10/01/20 20:20 Room Air 10/01/20 18:51 36.6 66 16 110/64 (79) 98 Capillary Refill : Less Than 3 Seconds General Appearance: No Apparent Distress, WD/WN, Anxious, Chronically ill HEENT: PERRL/EOMI, Normal ENT Inspection, Pharynx Normal Neck: Full Range of Motion, Normal Inspection, Non Tender, Supple, Carotid Bruit Respiratory: Chest Non Tender, Lungs Clear, Normal Breath Sounds, No Accessory Muscle Use, No Respiratory Distress Cardiovascular: Regular Rate, Rhythm, No Edema, No Gallop, No JVD, No Murmur, Normal Peripheral Pulses Gastrointestinal: Normal Bowel Sounds, No Organomegaly, No Pulsatile Mass, Non Tender, Soft Back: Normal Inspection, No CVA Tenderness, No Vertebral Tenderness Extremity: Normal Capillary Refill, Normal Inspection, Normal Range of Motion (except left side weakness), Non Tender, No Calf Tenderness, No Pedal Edema Neurologic/Psychiatric: Alert, Oriented x3, Normal Mood/Affect, track dresser II-XII Norm as Tested, Abnormal Gait, Depressed Affect, Facial Droop (left), Motor Weakness (left sided flaccidity) Skin: Normal Color, Warm/Dry Lymphatic: No Adenopathy Results/Procedures Lab Patient resulted labs reviewed. FIM Transfers Therapy Code Descriptions/Definitions Functional [place] Measure: 0=Not Assessed/NA 4=Minimal Assistance 1=Total Assistance 5=Supervision or Setup 2=Maximal Assistance 6=Modified [place] 3=Moderate Assistance 7=Complete IndependenceSCALE: Activities may be completed with or without assistive devices. 2-Wmfrnyfseg-tysnkxy completes the activity by him/herself with no assistance from a helper. 5-Set-up or Clean-up Assistance-helper sets up or cleans up; patient completes activity. [place] assists only prior to or following the activity. 4-Supervision or Touching Assistance-helper provides verbal cues and/or touching/steadying and/or contact guard assistance as patient completes activity. Assistance may be provided throughout the activity or intermittently. 3-Partial/Moderate Assistance-helper does LESS THAN HALF the effort. [place] lifts, holds or supports trunk or limbs, but provides less than half the effort. 2-Substantial/Maximal Assistance-helper does MORE THAN HALF the effort. [place] lifts or holds trunk or limbs and provides more than half the effort. 4-Nzbuazfjk-oulqqt does ALL the effort. Patient does none of the effort to complete the activity. Or, the assistance of 2 or more helpers is required for the patient to complete the activity. If activity was not attempted, code reason: 7-Patient Refused. 9-Not Applicable-not attempted and the patient did not perform the activity before the current illness, exacerbation or injury. 10-Not Attempted due to Environmental Limitations-(lack of equipment, weather restraints, etc.). 88-Not Attempted due to Medical Conditions or Safety Concerns. Roll Left to Right (QC): 3 Sit to Lying (QC): 4 Sit to Stand (QC): 4 Chair/Wba-bu-Adrrl Xfer(QC): 4 Car Transfer (QC): 3 Gait Training Distance: 75'x2 Walk 10 feet (QC): 4 Walk 50 ft with 2 Turns(QC): 4 Walk 150 ft (QC): 3 Walking 10ft/uneven surface-QC: 88 Gait Persons Needed: 1 Gait Assistive Device: Walker Steffen Wheelchair Training Distance: 150' Wheel 50 ft with 2 turns (QC): 4 Wheel 150 ft (QC): 4 Stair Training 1 Step (curb) (QC): 88 4 Steps (QC): 88 12 Steps (QC): 88 Balance Picking up an Object (QC): 88 ADL-Treatment Eating (QC): 5 (set up assistance, pt reports being able to use utensils, bring food to mouth, and eat.) Oral Hygiene (QC): 6 (Pt able to complete independently at tray table.) Shower/Bathe Self (QC): 4 (SBA, pt washed/dried all parts seated on SC. Min verbal cues with task.) Upper Body Dressing (QC): 3 (Min A with donning shirt due to shirt getting stuck on pt's L shoulder.) Lower Body Dressing (QC): 3 (Min A with pant hike, and min A standing balance. Pt required moderate verbal cues with task.) On/Off Footwear (QC): 4 (Moderate cues to don/doff shoes/socks.) Toileting Hygiene (QC): 1 (Pt required assistance managing clothing down/up, and assistance with hygiene) Toilet Transfer (QC): 2 (Max A, pt had poor carry over of stand pivot transfer between w/c and toilet. Max verbal cues with transfer.) Assessment/Plan Assessment and Plan Assess & Plan/Chief Complaint Assessment: Catastrophic CVA with left sided weakness Smoker COPD HTN Gout Neuropathy CRI Alcoholism Depression Anxiety Plan: IRF protocol Pain meds Baclofen Home meds Ativan for etoh withdrawal symptoms 09/12/20: Dysphagia screening Monitor for return of function left weakness 09/13/20: Left leg function a bit today Shower today Monitor closely 09/14/20: BM regimen Turn Q 2hours IRF protocol 09/15/20: Monitor BP Fall risk Monitor dysphagia and aspiration risk 09/16/20: Nicotine patch Monitor aspiration 09/17/20: Left arm improving dramatically No pain reported Improved status 09/18/20: Improved status Loop recorder DC Tely 09/19/20: Monitor closely Loop recorder site is less tender now Fall risk incontinence care 09/20/20: Incontinence care Monitor bowels Therapy to intensify 09/21/20: Monitor incontinence 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 to decrease tap grinder burden 09/22/20: PT OT ST Incontinence 09/23/20: Monitor incontinence Monitor dreams may need to DC Remeron 09/24/20: Monitor incontinence Urinal spilling will need close monitoring 09/25/20: Right knee eval by Dr Huang team Check xrays 09/26/20: Monitor right knee pain Continue aggressive therapy 09/27/20: Incontinence care Right knee pain management 09/28/20: Bladder training Check labs in am 09/29/20: Labs stable IRF protocol Education for today 09/30/20: Incontinence management DC soon Right knee pain management 10/01/20: Allopurinol restarted at his request Right knee pain does not appear to be gout (1) Acute CVA (cerebrovascular accident) Status: Acute (2) Left-sided weakness Status: Acute (3) Gout (4) Alcoholism Status: Chronic (5) Ulcer of great toe Status: Acute (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
[2020-10-01] MEDS: ASPIRIN E.C. 325 MG (ECOTRIN) TABLET PO SCH (08:08)
[2020-10-01] MEDS: MAGNESIUM OXIDE (MAG-OX)400 MG TAB PO SCH ×2 (08:08→17:36)
[2020-10-01] MEDS: ATENOLOL 25 MG (TENORMIN) TAB PO SCH (08:08)
[2020-10-01] MEDS: amLODIPine 5 MG (NORVASC) TAB PO SCH (08:08)
[2020-10-01] MEDS: FOLIC ACID 1 MG TAB PO SCH (08:08)
[2020-10-01] MEDS: NICOTINE 14 MG (NICODERM) PATCH TD SCH (08:09)
[2020-10-01] MEDS: ACETAMINOPHEN 500 MG TAB (TYLENOL) PO PRN ×2 (08:09→13:38)
[2020-10-01] MEDS: DOCUSATE SODIUM 10 MG/ML 10 ML UDC (COLACE) NG SCH ×2 (08:10→19:59)
[2020-10-01] MEDS: DICLOFENAC 1% GEL 100 GM (VOLTAREN) TUBE TOP SCH ×4 (08:10→22:30)
[2020-10-01] MEDS: polyethylene glycoL POWDER 17 GM (MIRALAX) PACK PO SCH ×2 (08:10→19:59)
[2020-10-01] MEDS: SENNA W/DOCUSATE (SENOKOT S) TABLET PO SCH ×2 (08:10→19:59)
[2020-10-01 08:11] VITALS: BP 112/61
[2020-10-01] MEDS: NICOTINE PATCH REMOVAL TP SCH (09:06)
--- NOTE | 2020-10-01 09:10 | Cardiology Progress Note ---
Subjective Date Seen by Provider: Oct 01, 2020 Time Seen by Provider: 08:20 Subjective/Events-last exam Patient with PT, no new complaints. Denies any chest pain or dyspnea. Review of Systems General: No Chills, No Night Sweats, No Fatigue, No Malaise, No Appetite, No Other HEENT: No Head Aches, No Visual Changes, No Eye Pain, No Ear Pain, No Dysphasia, No Sinus Congestion, No Post Nasal Drip, No Sore Throat, No Other Pulmonary: No Dyspnea, No Cough, No Pleuritic Chest Pain, No Other Cardiovascular: No: Chest Pain, Palpitations, Orthopnea, Paroxysmal Noc. Dyspnea, Edema, Lt Headedness, Other Objective-Cardiology Exam Last Set of Vital Signs Vital Signs 10/01/20 10/01/20 10/01/20 06:09 08:11 08:55 Temp 36.2 Pulse 81 Resp 18 B/P (MAP) 112/61 (78) Pulse Ox 96 O2 Delivery Room Air Capillary Refill : Less Than 3 Seconds I&O Intake and Output 10/01/20 00:00 Intake Total 1300 ml Output Total 725 ml Balance 575 ml Intake Oral 1300 ml Output Urine Total 725 ml # Voids 3 # Urine Diapers 1 General: Alert, Oriented X3, Cooperative HEENT: Atraumatic, PERRLA Neck: Supple, No JVD, No Thyromegaly Lungs: Clear to Auscultation, Normal Air Movement Heart: Regular Rate, Normal S1, Normal S2, No Murmurs Abdomen: Normal Bowel Sounds, Soft, No Tenderness, No Hepatosplenomegaly, No Masses Extremities: No Clubbing, No Cyanosis, No Edema, Normal Pulses, No Tenderness/Swelling Skin: No Rashes, No Breakdown, No Significant Lesion Neuro: Normal Speech, Other (still having left-sided weakness) Psych/Mental Status: Mental Status NL, Mood NL A/P-Cardiology Admission Diagnosis CVA HTN HLP Tobaccoism Assessment/Plan Cryptogenic CVA, recieved tPA, still having left sided weakness. 2D echo done 09/09/2020 revealed grade 1 diastolic dysfunction, EF 50-55%, PA 40-45%, CTA Head and neck showed no KASANDRA, status post loop monitor implant, doing well. Continue to monitor Hypertension, controlled, continue to monitor Hyperlipidemia, maintained on statin Tobaccoism, educated on smoking cessation ETOH use, discussed limiting alcohol intake Patient was seen and evaluated with Nina, examination performed, management plan was discussed, agree with the current scribed note, I made few changes to the note using Italic font Continue to monitor blood pressure, no changes are recommended Clinical Quality Measures DVT/VTE Risk/Contraindication: Risk Factor Score Per Nursin RFS Level Per Nursing on Admit: 4+=Very High NINA FERRARA Oct 01, 2020 09:10 ALEXIA FAIRCHILD MD Oct 01, 2020 14:18
--- NOTE | 2020-10-01 09:25 | Occupational Ther Daily Note ---
OT Current Status-Daily Note Subjective Pt laying in bed, agreeable to OT tx with focus on ADLS Mental Status/Objective Patient Orientation: Person, Place, Time, Situation ADL-Treatment Therapy Code Descriptions/Definitions Functional [place] Measure: 0=Not Assessed/NA 4=Minimal Assistance 1=Total Assistance 5=Supervision or Setup 2=Maximal Assistance 6=Modified [place] 3=Moderate Assistance 7=Complete IndependenceSCALE: Activities may be completed with or without assistive devices. 6-Btakiqmodw-dateprq completes the activity by him/herself with no assistance from a helper. 5-Set-up or Clean-up Assistance-helper sets up or cleans up; patient completes activity. [place] assists only prior to or following the activity. 4-Supervision or Touching Assistance-helper provides verbal cues and/or touching/steadying and/or contact guard assistance as patient completes activity. Assistance may be provided throughout the activity or intermittently. 3-Partial/Moderate Assistance-helper does LESS THAN HALF the effort. [place] lifts, holds or supports trunk or limbs, but provides less than half the effort. 2-Substantial/Maximal Assistance-helper does MORE THAN HALF the effort. [place] lifts or holds trunk or limbs and provides more than half the effort. 6-Jahtpgssv-xttyjg does ALL the effort. Patient does none of the effort to com plete the activity. Or, the assistance of 2 or more helpers is required for the patient to complete the activity. If activity was not attempted, code reason: 7-Patient Refused. 9-Not Applicable-not attempted and the patient did not perform the activity before the current illness, exacerbation or injury. 10-Not Attempted due to Environmental Limitations-(lack of equipment, weather restraints, etc.). 88-Not Attempted due to Medical Conditions or Safety Concerns. Eating (QC): 6 (Pt reports independence with task.) Oral Hygiene (QC): 6 (Pt completed independently seated at sink.) Shower/Bathe Self (QC): 4 (Pt able to wash/dry all parts seated on SC. Min verbal cues for techniques to dry lower legs/feet.) Upper Body Dressing (QC): 4 (SBA, pt able to doff/emiliano puller through shirt.) Lower Body Dressing (QC): 3 (Pt able to thread BLEs into pants, with min verbal cues. Pt required min A with standing balance at sherrie-walker as he performed pant hike.) On/Off Footwear: 4 (SBA. Pt required moderate cues to doff gripper socks, min verbal cues to don.) Toileting Hygiene (QC): 5 (clean up of urinal) Other Treatment Pt laying in bed, transferred supine to sit EOB with SBA. Pt then completed SPT with min A to w/c, taken into bathroom, completed min A SPT from w/c to SC. Pt completed showering/drying, then performed SPT back to w/c where he completed dressing. Pt sat at sink to brush his teeth, comb his hair, and use electric razor independently. Pt taken back to recliner, SPT from w/c to recliner with Min A. Post OT tx, pt seated in recliner, call light in reach and all needs met. Education OT Patient Education: Correct positioning, Modified ADL techniques, Progress toward Goal/Update tx plan, Purpose of tx/functional activities Teaching Recipient: Patient Teaching Methods: Discussion Response to Teaching: Verbalize Understanding OT Halfway Goals Upper Inspector Goals Time Frame: Oct 03, 2020 Eating (QC): 6 Oral Hygiene (QC): 6 Toileting Hygiene (QC): 4 Shower/Bathe Self (QC): 4 Upper Body Dressing (QC): 6 Lower Body Dressing (QC): 4 On/Off Footwear (QC): 4 Additional Goals: 1-Demonstrate ADL Tasks, 2-Verbalize Understanding, 3- ImproveStrength/Francesca 1=Demonstrate adherence to instructed precautions during ADL tasks. 2=Patient will verbalize/demonstrate understanding of assistive devices/modifications for ADL. 3=Patient will improve strength/tolerance for activity to enable patient to perform ADL's. OT Education/Plan Problem List/Assessment Assessment: Decreased Activ Tolerance, Decreased UE Strength, Impaired Funct Balance, Impaired I ADL's, Impaired Self-Care Skills, Restricted Funct UE ROM Discharge Recommendations Plan/Recommendations: Continue POC Treatment Plan/Plan of Care Patient would benefit from OT for education, treatment and training to promote independence in ADL's, mobility, safety and/or upper extremity function for ADL's. Plan of Care: ADL Retraining, Functional Mobility, Group Exercise/Act as Ind, UE Funct Exercise/Act, UE Neuromus Re-Ed/Coord Treatment Duration: Oct 03, 2020 Frequency: At least 5 of 7 days/Wk (IRF) Estimated Hrs Per Day: 1.5 hours per day Agreement: Yes Rehab Potential: Fair Time/GCodes Start Time: 08:00 Stop Time: 09:15 Total Time Billed (hr/min): 75 Billed Treatment Time 1, ADL 5 WILFREDO CORLEY OT Oct 01, 2020 09:25
--- NOTE | 2020-10-01 11:10 | Physical Therapy Daily Note ---
PT Daily Note-Current Subjective Pt. just off phone with tryng to arrange a ramp etc and think about home plans Pain Numeric Pain Scale: 5-Moderate Pain Location: Right Location Body Site: Knee Pain Description: Ache Comment: pt. questions if his pain is gouty and if he should be back on allopurinal, Mental Status Patient Orientation: Normal For Age Attachments: Other-See Comments (mask) Transfers SCALE: Activities may be completed with or without assistive devices. 5-Ssvgoyjvsw-beximbm completes the activity by him/herself with no assistance from a helper. 5-Set-up or Clean-up Assistance-helper sets up or cleans up; patient completes activity. [place] assists only prior to or following the activity. 4-Supervision or Touching Assistance-helper provides verbal cues and/or touching/steadying and/or contact guard assistance as patient completes activity. Assistance may be provided throughout the activity or intermittently. 3-Partial/Moderate Assistance-helper does LESS THAN HALF the effort. [place] lifts, holds or supports trunk or limbs, but provides less than half the effort. 2-Substantial/Maximal Assistance-helper does MORE THAN HALF the effort. [place] lifts or holds trunk or limbs and provides more than half the effort. 8-Jqgrqncuf-yrlynn does ALL the effort. Patient does none of the effort to complete the activity. Or, the assistance of 2 or more helpers is required for the patient to complete the activity. If activity was not attempted, code reason: 7-Patient Refused. 9-Not Applicable-not attempted and the patient did not perform the activity before the current illness, exacerbation or injury. 10-Not Attempted due to Environmental Limitations-(lack of equipment, weather restraints, etc.). 88-Not Attempted due to Medical Conditions or Safety Concerns. Roll Left & Right (QC): 6 Sit to Lying (QC): 6 Lying to Sitting/Side of Bed(Q: 4 Sit to Stand (QC): 4 Chair/Okq-eq-Tzvin Xfer(QC): 4 Rx with emphasis on TRFs in out w/c to left and right simulating home situation and managing w/c as if he were alone, pt. needs min assist to manage toward left TRFs Weight Bearing Full Weight Bearing Full Weight Bearing Wheelchair Training Does the Pt Use a Wheelchair?: Yes Wheel 50 ft with 2 turns (QC): 4 Type of Wheelchair: Manual brakes bilat with effort Exercises Supine Ex: Bridging, Rolling, Straight leg raise, Hip abd/add Supine Reps: 15 Assessment Current Status: Good Progress w/c mob likely home mode of transport when alone, TRFs to left near patent, toward right requires min to mod assist PT Short Term Goals Short Term Goals Time Frame: Sep 18, 2020 Roll Left & Right: 6 Sit to lyin Lying to sitting on side of be: 3 Sit to stand: 3 Chair/zte-aw-lpvyu transfer: 3 Toilet transfer: 3 Walk 10 feet: 3 Wheel 50ft w/2 turns: 4 Wheel 150 feet: 4 PT Half-Way Goals Half-Way Goals PT Half-Way Goals Time Frame: Oct 02, 2020 Roll Left & Right (QC): 6 Sit to Lying (QC): 6 Lying-Sitting on Side/Bed(QC): 6 Sit to Stand (QC): 4 Chair/Hbx-gv-Vkwvr Xfer(QC): 4 Toilet Transfer (QC): 4 Car Transfer (QC): 4 Does the Patient Walk: No and Walking Goal IS indicated Walk 10 feet (QC): 4 Walk 50ft with 2 Turns (QC): 4 Walk 150 ft (QC): 4 Walking 10ft on Uneven Surface: 4 1 Step (curb) (QC): 3 4 Steps (QC): 3 12 Steps (QC): 88 Picking up an Object (QC): 4 Wheel 50 feet with 2 turns (QC: 6 Wheel 150 feet: 6 PT Plan Treatment/Plan Treatment Plan: Continue Plan of Care Treatment Plan: Bed Mobility, Education, Functional Activity Francesca, Functional Strength, Group Therapy, Gait, Safety, Therapeutic Exercise, Transfers Treatment Duration: Sep 25, 2020 Frequency: At least 5 of 7 days/Wk (IRF) Estimated Hrs Per Day: 1.5 hours per day Patient and/or Family Agrees t: Yes Safety Risks/Education Patient Education: Transfer Techniques, Correct Positioning, W/C Management, Disease Process, Safety Issues Teaching Recipient: Patient Teaching Methods: Demonstration, Discussion Response to Teaching: Verbalize Understanding, Return Demonstration, Reinforcement Needed Time/GCodes Time In: 1000 Time Out: 1100 Total Billed Treatment Time: 60 Total Billed Treatment 1,WC25,FA35 KYMBERLY SANCHEZ CRYPTOZOOLOGIST Oct 01, 2020 11:10
[2020-10-01] MEDS: ALLOPURINOL 100 MG (ZYLOPRIM) TAB PO SCH ×2 (11:11→17:36)
--- NOTE | 2020-10-01 11:12 | Speech Therapy Daily Note ---
Speech Daily Progress Note Subjective Date Seen by Provider: Oct 01, 2020 Time Seen by Provider: 00:30 Patient was sitting up in his recliner following his OT session and a shower. Objective Patient completed a series of OME at 90%. Patient continues to have some mild droop on the left side of his face. Patient's speech is clear. Assessment Assessment Current Status: Good Progress Treatment Plan Continue Plan of Care Speech Short Term Goals Short Term Goals Short Term Goals 1) The patient will complete memory tasks related to her daily needs at 80% or greater with minimal cues. 2) The patient will complete safety awareness tasks related to her daily needs at 80% or greater with minimal cues. 3) The patient will complete problem solving tasks related to her daily needs at 80% or greater with minimal cues. 4) The patient will complete OME for improving speech intelligibility. Speech Apprentice Embalmer Goals Apprentice Embalmer Goals Patient will improve cognitive and speech abilities in order to effectively meet his daily needs with minimal assist. Speech-Plan Patient/Family Goals Patient/Family Goals: Patient plans on returning to his home where he lives with his . Treatment Plan Speech Therapy Treatment Plan: Continue Plan of Care Treatment Duration: Sep 25, 2020 Frequency: 4 times per week (Patient will receive skilled ST 4-5x per week) Estimated Hrs Per Day: .5 hour per day Rehab Potential: Fair Barriers to Learning: Patient's recent CVA, previous illness Pt/Family Agrees to Plan: Yes Safety Risks/Education Teaching Recipient: Patient Teaching Methods: Demonstration, Discussion Response to Teaching: Verbalize Understanding, Return Demonstration Education Topics Provided: Continued safety and communication Time Speech Therapy Time In: 09:30 Speech Therapy Time Out: 10:00 Total Billed Time: 30 Billed Treatment Time 1AN[address] ST Oct 01, 2020 11:12
--- NOTE | 2020-10-01 13:51 | Physical Therapy Daily Note ---
PT Daily Note-Current Subjective Pt. up in recliner, agrees to rx. Pain Location: No Pain Reported Mental Status Patient Orientation: Normal For Age Transfers SCALE: Activities may be completed with or without assistive devices. 8-Czkcdfejhg-rvunvwl completes the activity by him/herself with no assistance from a helper. 5-Set-up or Clean-up Assistance-helper sets up or cleans up; patient completes activity. [place] assists only prior to or following the activity. 4-Supervision or Touching Assistance-helper provides verbal cues and/or touching/steadying and/or contact guard assistance as patient completes ac tivity. Assistance may be provided throughout the activity or intermittently. 3-Partial/Moderate Assistance-helper does LESS THAN HALF the effort. [place] lifts, holds or supports trunk or limbs, but provides less than half the effort. 2-Substantial/Maximal Assistance-helper does MORE THAN HALF the effort. [place] lifts or holds trunk or limbs and provides more than half the effort. 7-Kgxpupikb-gvfiwm does ALL the effort. Patient does none of the effort to complete the activity. Or, the assistance of 2 or more helpers is required for the patient to complete the activity. If activity was not attempted, code reason: 7-Patient Refused. 9-Not Applicable-not attempted and the patient did not perform the activity before the current illness, exacerbation or injury. 10-Not Attempted due to Environmental Limitations-(lack of equipment, weather restraints, etc.). 88-Not Attempted due to Medical Conditions or Safety Concerns. SPTs left and right in out w/c and recliner min to CGA Weight Bearing Full Weight Bearing Full Weight Bearing Gait Training Does the Patient Walk?: Yes Walk 10 feet (QC): 3 Gait Persons Needed: 1 Gait Assistive Device: Parallel Bars (and rail in hallway) 12 ft x1, 15ft x 3 with PLUMBING ENGINEER left and pt. using rail or //bar right, advancing LLE indep but slowly Assessment Current Status: Good Progress dependent for gait , w/c conts more stable mobility mode PT Short Term Goals Short Term Goals Time Frame: Sep 18, 2020 Roll Left & Right: 6 Sit to lyin Lying to sitting on side of be: 3 Sit to stand: 3 Chair/yle-pb-fomar transfer: 3 Toilet transfer: 3 Walk 10 feet: 3 Wheel 50ft w/2 turns: 4 Wheel 150 feet: 4 PT Chcf Goals Poultry Barn Manager Goals PT Poultry Barn Manager Goals Time Frame: Oct 02, 2020 Roll Left & Right (QC): 6 Sit to Lying (QC): 6 Lying-Sitting on Side/Bed(QC): 6 Sit to Stand (QC): 4 Chair/Fmp-tn-Ktbzr Xfer(QC): 4 Toilet Transfer (QC): 4 Car Transfer (QC): 4 Does the Patient Walk: No and Walking Goal IS indicated Walk 10 feet (QC): 4 Walk 50ft with 2 Turns (QC): 4 Walk 150 ft (QC): 4 Walking 10ft on Uneven Surface: 4 1 Step (curb) (QC): 3 4 Steps (QC): 3 12 Steps (QC): 88 Picking up an Object (QC): 4 Wheel 50 feet with 2 turns (QC: 6 Wheel 150 feet: 6 PT Plan Treatment/Plan Treatment Plan: Continue Plan of Care Treatment Plan: Bed Mobility, Education, Functional Activity Francesca, Functional Strength, Group Therapy, Gait, Safety, Therapeutic Exercise, Transfers Treatment Duration: Sep 25, 2020 Frequency: At least 5 of 7 days/Wk (IRF) Estimated Hrs Per Day: 1.5 hours per day Patient and/or Family Agrees t: Yes Safety Risks/Education Patient Education: Gait Training, Transfer Techniques, Correct Positioning, Disease Process, Safety Issues Teaching Recipient: Patient Teaching Methods: Demonstration, Discussion Response to Teaching: Verbalize Understanding, Return Demonstration, Reinforcement Needed Time/GCodes Time In: 1300 Time Out: 1315 Total Billed Treatment Time: 15 Total Billed Treatment 1,GT15m KYMBERLY SANCHEZ BLOCK BOLTER MULE OPERATOR Oct 01, 2020 13:51
--- NOTE | 2020-10-01 14:42 | NUR ---
"RD ASSESSMENT PMHx: severe ETOHism; COPD; emphysema; pneumonia; HTN; renal failure; chronic diarrhea; gout; PT INTERACTION: Pt was awake and pleasant during nutrition follow-up. Pt states he has been eating well since last assessment. Note avg PO intake 98% x4d, per chart review. Pt states no issues with nausea, vomiting, constipation, or diarrhea since last assessment. Note last BM was 09/29, and pt currently on bowel regimen of colace BID, senna BID, and miralax BID, per chart review. ABNORMAL NUTRITION-RELATED LAB VALUES LOW: HIGH: BUN 21; AST 42; Est. kcal needs: 2111-2015 kcal | 20-25 kcal/kg Est. Pro needs: 74-92 g Pro | 0.8-1.0 g Pro/kg PES STATEMENT: Given current PO intake, no nutrition diagnosis at this time (NO-1.1). INTERVENTION: Continue with current diet order of Regular diet. Will continue to follow and reassess as pt needs, intake, and status change. Anais Larsen MS RD LD [phone] cell"
--- NOTE | 2020-10-01 15:30 | NUR ---
Weekly Care Team Conference Discussed care team conference with patient. Team's initial recommendation was discharge home on 10/07/2020. After discussion with regarding ramp for home entry, ramp will be delivered sometime between 10/08/2020 and 10/10/2020. Once ramp is delivered and installed, patient will discharge home with his . Patient understands this and is agreeable to plan. Patient states this will "give him a couple more days to work on things." No further questions or concerns voiced by patient.
[2020-10-01 18:51] VITALS: BP 110/64
[2020-10-01] MEDS: MIRTAZAPINE 15 MG (REMERON) TAB PO SCH (22:29)
[2020-10-01] MEDS: LORazepam 0.5 MG (ATIVAN) TABLET PO SCH (22:29)
[2020-10-01] MEDS: MELATONIN 3 MG TABLET PO PRN (22:29)
--- NOTE | 2020-10-02 06:11 | PM&R Progress Note ---
Subjective HPI/CC On Admission Date Seen by Provider: Oct 02, 2020 Time Seen by Provider: 09:30 Subjective/Events-last exam 10/02/20: Restart Allopurinol but I did tell him we stopped that 02/2019 and he states he has a bottle he takes in the drawer RN reviewed bottles in his drawer and he does not take that anymore Regardless will maintain the Allopurinol BID 10/01/20: Knee pain continues and he talks about it constantly Allopurinol will be restarted at 100mg twice a day but he has been off that of February of 2019 per my office charts and there has not been any refills, he thought it was gout and it is definitely not gout. He received a steroid injection in the knee by orthopedics and currently it does not appear to be gout DC plan for next week 09/30/20: Becoming more and more independent Pt is incontinent was very helpful yesterday during family training 09/29/20: DC planning Family training today Incontinence management Doing pretty well Bowels are moving Overall feels like he is making progress 09/28/20: BM today Toileting improved Bladder training every 2 hours going well 09/27/20: Incontinence discussed Right knee pain reported is improved Voltaren gel maintained 09/26/20: Right knee about the same since knee infection No falls Incontinence continues Monitoring closely 09/25/20: Pt complaining of right knee pain Denies any other significant issues Will check X-ray and consult orthopod for possible injections since he is flaccid on the left side and really needs the right knee to ambulate Will monitor pt closely 09/24/20: Bowels moved yesterday Reports that he just spills his urinal in bed but he is definitely incontinent Voltaren Gel will be given Participating in therapy 09/23/20: Pt had a crazy dream last night Remeron may cause that so will monitor that closely and may need to discontinue Bowels moved yesterday Incontinence is being managed by using the urinal 09/22/20: Loop recorder maintained Incontinence continues Bowels are moving well Swallowing pretty well I witnessed him actually walking with one-assist No falls 09/21/20: Patient improved No pain reported Incontinence will be managed with bladder routine 09/20/20: Saw patient in midst of bed linen change due to incontinence bladder Working with therapy No pain reported except shoulder 09/19/20: Patient a bit down in spirits today No pain No ETOH withdrawal No falls Incontinence noted 09/18/20: Improved status Gets frustrated easily Has bad days and good days Loop recorder placed so will DC Tely Incontinence noted 09/17/20: Bowels moved yesterday Incontinent a bit with bowel and bladder so will try to get on bladder emptying schedule a long with bowel regimen Was able to move and lift up his left arm with a lot of effort but was remarkable Pt improved and much better spirits today 09/16/20: Telemetry needs to be maintained until loop recorder is placed Will reach out to Dr. Walker tomorrow Incontinence is an issue so will try to work with him in the urinal positional hernadez to help him In significant denial Behavioral health consult Bowels moved yesterday Catastrophic stroke and his coping mechanism is no longer available with smoking and drinking so that is causing a significant issue 09/15/20: Bowels finally moved today Lifting left leg a bit Tolerating food intake without much dysphasia Psych evaluation will be provided because of anxiety and depression and situational grief reaction due to catastrophic stroke Pt overall is very depressed Labs are okay 09/14/20: Turn Q 2hours Refusing stool softners BM 09/10/20 Colace and Senna taken today 09/13/20: Advancing diet Moved left leg a bit today No function in left arm though Shower today and shave Crushing his meds with pudding since he did choke on thin liquids Advancing diet as tolerated Bowels moved two days ago Pt appears to be very chronically ill Conferred with RN Reviewed therapy notes Checked meds and labs Review of Systems General: Fatigue, Malaise Neurological: Weakness Objective Exam Vital Signs Vital Signs Date Time Temp Pulse Resp B/P (MAP) Pulse Ox O2 Delivery O2 Flow Rate FiO2 10/02/20 17:58 36.8 88 18 121/56 (77) 95 Room Air Capillary Refill : Less Than 3 Seconds General Appearance: No Apparent Distress, WD/WN, Anxious, Chronically ill HEENT: PERRL/EOMI, Normal ENT Inspection, Pharynx Normal Neck: Full Range of Motion, Normal Inspection, Non Tender, Supple, Carotid Bruit Respiratory: Chest Non Tender, Lungs Clear, Normal Breath Sounds, No Accessory Muscle Use, No Respiratory Distress Cardiovascular: Regular Rate, Rhythm, No Edema, No Gallop, No JVD, No Murmur, Normal Peripheral Pulses Gastrointestinal: Normal Bowel Sounds, No Organomegaly, No Pulsatile Mass, Non Tender, Soft Back: Normal Inspection, No CVA Tenderness, No Vertebral Tenderness Extremity: Normal Capillary Refill, Normal Inspection, Normal Range of Motion (except left side weakness), Non Tender, No Calf Tenderness, No Pedal Edema Neurologic/Psychiatric: Alert, Oriented x3, Normal Mood/Affect, occupational health and safety officer II-XII Norm as Tested, Abnormal Gait, Depressed Affect, Facial Droop (left), Motor Weakness (left sided flaccidity) Skin: Normal Color, Warm/Dry Lymphatic: No Adenopathy Results/Procedures Lab Patient resulted labs reviewed. FIM Transfers Therapy Code Descriptions/Definitions Functional [place] Measure: 0=Not Assessed/NA 4=Minimal Assistance 1=Total Assistance 5=Supervision or Setup 2=Maximal Assistance 6=Modified [place] 3=Moderate Assistance 7=Complete IndependenceSCALE: Activities may be completed with or without assistive devices. 9-Xygubxerhn-lxxprfk completes the activity by him/herself with no assistance from a helper. 5-Set-up or Clean-up Assistance-helper sets up or cleans up; patient completes activity. [place] assists only prior to or following the activity. 4-Supervision or Touching Assistance-helper provides verbal cues and/or t ouching/steadying and/or contact guard assistance as patient completes activity. Assistance may be provided throughout the activity or intermittently. 3-Partial/Moderate Assistance-helper does LESS THAN HALF the effort. [place] lifts, holds or supports trunk or limbs, but provides less than half the effort. 2-Substantial/Maximal Assistance-helper does MORE THAN HALF the effort. [place] lifts or holds trunk or limbs and provides more than half the effort. 2-Ymuarslvs-ffjsre does ALL the effort. Patient does none of the effort to complete the activity. Or, the assistance of 2 or more helpers is required for the patient to complete the activity. If activity was not attempted, code reason: 7-Patient Refused. 9-Not Applicable-not attempted and the patient did not perform the activity before the current illness, exacerbation or injury. 10-Not Attempted due to Environmental Limitations-(lack of equipment, weather restraints, etc.). 88-Not Attempted due to Medical Conditions or Safety Concerns. Roll Left to Right (QC): 6 Sit to Lying (QC): 6 Sit to Stand (QC): 4 Chair/Mxv-wj-Zrjqd Xfer(QC): 4 Car Transfer (QC): 3 Gait Training Does the Patient Walk?: Yes Distance: 75'x2 Walk 10 feet (QC): 3 Walk 50 ft with 2 Turns(QC): 4 Walk 150 ft (QC): 3 Walking 10ft/uneven surface-QC: 88 Gait Persons Needed: 1 Gait Assistive Device: Parallel Bars (and rail in hallway) Wheelchair Training Does the Pt Use a Wheelchair?: Yes Distance: 150' Wheel 50 ft with 2 turns (QC): 4 Wheel 150 ft (QC): 4 Type of Wheelchair: Manual Stair Training 1 Step (curb) (QC): 88 4 Steps (QC): 88 12 Steps (QC): 88 Balance Picking up an Object (QC): 88 ADL-Treatment Eating (QC): 6 (Pt reports independence with task.) Oral Hygiene (QC): 6 (Pt completed independently seated at sink.) Shower/Bathe Self (QC): 4 (Pt able to wash/dry all parts seated on SC. Min verbal cues for techniques to dry lower legs/feet.) Upper Body Dressing (QC): 4 (SBA, pt able to doff/emiliano rack puller shirt.) Lower Body Dressing (QC): 3 (Pt able to thread BLEs into pants, with min verbal cues. Pt required min A with standing balance at sherrie-walker as he performed pant hike.) On/Off Footwear (QC): 4 (SBA. Pt required moderate cues to doff gripper socks, min verbal cues to don.) Toileting Hygiene (QC): 5 (clean up of urinal) Toilet Transfer (QC): 2 (Max A, pt had poor carry over of stand pivot transfer between w/c and toilet. Max verbal cues with transfer.) Assessment/Plan Assessment and Plan Assess & Plan/Chief Complaint Assessment: Catastrophic CVA with left sided weakness Smoker COPD HTN Gout Neuropathy CRI Alcoholism Depression Anxiety Plan: IRF protocol Pain meds Baclofen Home meds Ativan for etoh withdrawal symptoms 09/12/20: Dysphagia screening Monitor for return of function left weakness 09/13/20: Left leg function a bit today Shower today Monitor closely 09/14/20: BM regimen Turn Q 2hours IRF protocol 09/15/20: Monitor BP Fall risk Monitor dysphagia and aspiration risk 09/16/20: Nicotine patch Monitor aspiration 09/17/20: Left arm improving dramatically No pain reported Improved status 09/18/20: Improved status Loop recorder DC Tely 09/19/20: Monitor closely Loop recorder site is less tender now Fall risk incontinence care 09/20/20: Incontinence care Monitor bowels Therapy to intensify 09/21/20: Monitor incontinence 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 to decrease assistant drafter burden 09/22/20: PT OT ST Incontinence 09/23/20: Monitor incontinence Monitor dreams may need to DC Remeron 09/24/20: Monitor incontinence Urinal spilling will need close monitoring 09/25/20: Right knee eval by Dr Huang team Check xrays 09/26/20: Monitor right knee pain Continue aggressive therapy 09/27/20: Incontinence care Right knee pain management 09/28/20: Bladder training Check labs in am 09/29/20: Labs stable IRF protocol Education for today 09/30/20: Incontinence management DC soon Right knee pain management 10/01/20: Allopurinol restarted at his request Right knee pain does not appear to be gout 10/02/20: Monitor incontinence (1) Acute CVA (cerebrovascular accident) Status: Acute (2) Left-sided weakness Status: Acute (3) Gout (4) Alcoholism Status: Chronic (5) Ulcer of great toe Status: Acute (6) 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
[2020-10-02] MEDS: MULTIVIT W/MINERALS TAB (THERAGRAN M) PO SCH (06:15)
[2020-10-02] MEDS: THIAMINE 100 MG (VITAMIN B-1) TAB PO SCH (06:15)
[2020-10-02] MEDS: KCL 10 MEQ TAB (MICRO K) PO SCH (06:15)
[2020-10-02] MEDS: ACETAMINOPHEN 500 MG TAB (TYLENOL) PO PRN (06:19)
[2020-10-02 06:23] VITALS: BP 124/66
[2020-10-02] MEDS: DICLOFENAC 1% GEL 100 GM (VOLTAREN) TUBE TOP SCH ×4 (08:15→22:28)
[2020-10-02] MEDS: ASPIRIN E.C. 325 MG (ECOTRIN) TABLET PO SCH (08:21)
[2020-10-02] MEDS: FOLIC ACID 1 MG TAB PO SCH (08:21)
[2020-10-02] MEDS: ALLOPURINOL 100 MG (ZYLOPRIM) TAB PO SCH ×2 (08:21→18:33)
[2020-10-02] MEDS: amLODIPine 5 MG (NORVASC) TAB PO SCH (08:21)
[2020-10-02] MEDS: NICOTINE 14 MG (NICODERM) PATCH TD SCH (08:21)
[2020-10-02] MEDS: NICOTINE PATCH REMOVAL TP SCH (08:22)
[2020-10-02] MEDS: DOCUSATE SODIUM 10 MG/ML 10 ML UDC (COLACE) NG SCH ×2 (08:22→21:09)
[2020-10-02] MEDS: SENNA W/DOCUSATE (SENOKOT S) TABLET PO SCH ×2 (08:22→21:09)
[2020-10-02] MEDS: MAGNESIUM OXIDE (MAG-OX)400 MG TAB PO SCH ×2 (08:22→18:33)
[2020-10-02] MEDS: polyethylene glycoL POWDER 17 GM (MIRALAX) PACK PO SCH ×2 (08:22→21:09)
[2020-10-02] MEDS: ATENOLOL 25 MG (TENORMIN) TAB PO SCH (08:22)
--- NOTE | 2020-10-02 10:05 | Occupational Ther Daily Note ---
OT Current Status-Daily Note Subjective Pt alert/ oriented. EOB upon arrival. Pt denies pain. OT individual tx. Mental Status/Objective Patient Orientation: Normal For Age ADL-Treatment Therapy Code Descriptions/Definitions Functional [place] Measure: 0=Not Assessed/NA 4=Minimal Assistance 1=Total Assistance 5=Supervision or Setup 2=Maximal Assistance 6=Modified [place] 3=Moderate Assistance 7=Complete IndependenceSCALE: Activities may be completed with or without assistive devices. 1-Fpgcwxhuao-clliftt completes the activity by him/herself with no assistance from a helper. 5-Set-up or Clean-up Assistance-helper sets up or cleans up; patient completes activity. [place] assists only prior to or following the activity. 4-Supervision or Touching Assistance-helper provides verbal cues and/or touching/steadying and/or contact guard assistance as patient completes activity. Assistance may be provided throughout the activity or intermittently. 3-Partial/Moderate Assistance-helper does LESS THAN HALF the effort. [place] lifts, holds or supports trunk or limbs, but provides less than half the effort. 2-Substantial/Maximal Assistance-helper does MORE THAN HALF the effort. [place] lifts or holds trunk or limbs and provides more than half the effort. 9-Bgaviwigd-bzbhra does ALL the effort. Patient does none of the effort to com plete the activity. Or, the assistance of 2 or more helpers is required for the patient to complete the activity. If activity was not attempted, code reason: 7-Patient Refused. 9-Not Applicable-not attempted and the patient did not perform the activity before the current illness, exacerbation or injury. 10-Not Attempted due to Environmental Limitations-(lack of equipment, weather restraints, etc.). 88-Not Attempted due to Medical Conditions or Safety Concerns. Eating (QC): 6 Shower/Bathe Self (QC): 7 Upper Body Dressing (QC): 7 Lower Body Dressing (QC): 7 Toileting Hygiene (QC): 7 Other Treatment Pt eats remainder of breakfast. Requests gym time. Pt sit to stand with min A and transfers to w/c to strong side with min A. Pt propels to gym IND. Pt at parallel bars, completes standing/ reaching/ balance activity with RUE. Pt requires min A-CGA throughout stance. Pt able to stand without RUE support for a high of 25 seconds. No LOB throughout, though CGA for safety. pt able to reach all areas including crossing midline to L side, R side pants/ side and sits with control. Pt returns to recliner, CGA with SPT. Pt is educated on adaptive technique/ donning pants in bed with bridging technique to decrease help at home. Pt agrees, states may try. Pt increases in strength/ motor control through session. Pt denies needs, call light in reach. Education OT Patient Education: Correct positioning, Exercise program, Home exercise program, Modified ADL techniques, Purpose of tx/functional activities, Safety issues, Transfer techniques Teaching Recipient: Patient Teaching Methods: Demonstration, Discussion Response to Teaching: Verbalize Understanding, Return Demonstration OT Film Drying Machine Operator Goals Film Drying Machine Operator Goals Time Frame: Oct 03, 2020 Eating (QC): 6 Oral Hygiene (QC): 6 Toileting Hygiene (QC): 4 Shower/Bathe Self (QC): 4 Upper Body Dressing (QC): 6 Lower Body Dressing (QC): 4 On/Off Footwear (QC): 4 Additional Goals: 1-Demonstrate ADL Tasks, 2-Verbalize Understanding, 3- ImproveStrength/Francesca 1=Demonstrate adherence to instructed precautions during ADL tasks. 2=Patient will verbalize/demonstrate understanding of assistive devices/modifications for ADL. 3=Patient will improve strength/tolerance for activity to enable patient to perform ADL's. OT Education/Plan Problem List/Assessment Assessment: Decreased Activ Tolerance, Decreased UE Strength, Dependent Transfers, Impaired Coordination, Impaired Funct Balance, Impaired I ADL's, Impaired Self-Care Skills, Restricted Funct UE ROM Discharge Recommendations Plan/Recommendations: Continue POC Therapy Discharge Recommendati: Home & Family, Post Acute OT Treatment Plan/Plan of Care Treatment,Training & Education: Yes Patient would benefit from OT for education, treatment and training to promote independence in ADL's, mobility, safety and/or upper extremity function for ADL's. Plan of Care: ADL Retraining, Functional Mobility, Group Exercise/Act as Ind, UE Funct Exercise/Act, UE Neuromus Re-Ed/Coord Treatment Duration: Oct 03, 2020 Frequency: At least 5 of 7 days/Wk (IRF) Estimated Hrs Per Day: 1.5 hours per day Agreement: Yes Rehab Potential: Fair Time/GCodes Start Time: 07:00 Stop Time: 08:00 Total Time Billed (hr/min): 60 Billed Treatment Time 1, ADL (15), NM 3 (45)= 60 CHANG MILLER OTR Oct 02, 2020 10:05
--- NOTE | 2020-10-02 12:25 | Therapy Group Daily Note ---
Therapy Daily Group Note Patient Education Topic Home Safety, Exercises Exercises LE Seated Exercise, Stretching, UE Exercise Session Ratio (pt:therapist): 4:1 Goal of Session: Home Safety Strategies Home safety education; Functional strengthening for improved functional mobility Goal Met for this Session: Yes Pt Benefit of Group: Contributions to Others, Increased Functional Safety Pt enjoyed visiting with others and interacted appropriately. Enjoyed the laughter and company Masks worn and social distancing practiced. Other/Notes Pt expressed that this will all be new to him and he feels he will figure alot out when he gets home. Seemed to appreciate the information and interacted well. Start Time: 11:00 Stop Time: 12:00 Total Billed Treatment Time: 60 Total Billed Treatment visit GRP 60 SUNIL STEELE PT Oct 02, 2020 12:25
--- NOTE | 2020-10-02 12:32 | Physical Therapy Daily Note ---
PT Daily Note-Current Subjective Pt. in bedside chair and agrees to therapy. States he is tired today, up at 4:30 this morning. Mental Status Patient Orientation: Person, Place, Time, Situation Transfers SCALE: Activities may be completed with or without assistive devices. 9-Rvfecnzcgi-ezsandb completes the activity by him/herself with no assistance from a helper. 5-Set-up or Clean-up Assistance-helper sets up or cleans up; patient completes activity. [place] assists only prior to or following the activity. 4-Supervision or Touching Assistance-helper provides verbal cues and/or touching/steadying and/or contact guard assistance as patient completes acti vity. Assistance may be provided throughout the activity or intermittently. 3-Partial/Moderate Assistance-helper does LESS THAN HALF the effort. [place] lifts, holds or supports trunk or limbs, but provides less than half the effort. 2-Substantial/Maximal Assistance-helper does MORE THAN HALF the effort. [place] lifts or holds trunk or limbs and provides more than half the effort. 5-Uezizimxy-medgjm does ALL the effort. Patient does none of the effort to complete the activity. Or, the assistance of 2 or more helpers is required for the patient to complete the activity. If activity was not attempted, code reason: 7-Patient Refused. 9-Not Applicable-not attempted and the patient did not perform the activity before the current illness, exacerbation or injury. 10-Not Attempted due to Environmental Limitations-(lack of equipment, weather restraints, etc.). 88-Not Attempted due to Medical Conditions or Safety Concerns. Sit to Stand (QC): 3 min-mod A with transfers, often dependent on surface height and arm rests Weight Bearing Full Weight Bearing Full Weight Bearing Gait Training Does the Patient Walk?: Yes Distance: 4 x 60 ft Walk 10 feet (QC): 4 Gait Persons Needed: 1 Gait Assistive Device: Walker Steffen Exercises Seated Therapy Exercises: Ankle pumps, Long arc quads, Hip flexion NuStep Minutes: 15 NuStep Workload: 4 Treatments gait training, LE exercise Assessment Current Status: Good Progress Pt. fatigues with ambulation and had 1 minor balance deficit requiring min A from therapist to correct during gait. He is min-mod A with sit to stand transfers, dependent on surface height and level of fatigue. Pt. returned to bedside chair post session, call light and all needs met. PT Short Term Goals Short Term Goals Time Frame: Sep 18, 2020 Roll Left & Right: 6 Sit to lyin Lying to sitting on side of be: 3 Sit to stand: 3 Chair/kyk-gn-airer transfer: 3 Toilet transfer: 3 Walk 10 feet: 3 Wheel 50ft w/2 turns: 4 Wheel 150 feet: 4 PT Long-Term Goals Long-Term Goals PT Steward/Stewardess Lounge Goals Time Frame: Oct 02, 2020 Roll Left & Right (QC): 6 Sit to Lying (QC): 6 Lying-Sitting on Side/Bed(QC): 6 Sit to Stand (QC): 4 Chair/Uzt-et-Ezwnc Xfer(QC): 4 Toilet Transfer (QC): 4 Car Transfer (QC): 4 Does the Patient Walk: No and Walking Goal IS indicated Walk 10 feet (QC): 4 Walk 50ft with 2 Turns (QC): 4 Walk 150 ft (QC): 4 Walking 10ft on Uneven Surface: 4 1 Step (curb) (QC): 3 4 Steps (QC): 3 12 Steps (QC): 88 Picking up an Object (QC): 4 Wheel 50 feet with 2 turns (QC: 6 Wheel 150 feet: 6 PT Plan Treatment/Plan Treatment Plan: Continue Plan of Care Treatment Plan: Bed Mobility, Education, Functional Activity Francesca, Functional Strength, Group Therapy, Gait, Safety, Therapeutic Exercise, Transfers Treatment Duration: Sep 25, 2020 Frequency: At least 5 of 7 days/Wk (IRF) Estimated Hrs Per Day: 1.5 hours per day Patient and/or Family Agrees t: Yes Time/GCodes Time In: 900 Time Out: 1000 Total Billed Treatment Time: 60 Total Billed Treatment 1, GT 35', Ex 25' SOTERO CARMONA PT Oct 02, 2020 12:32
[2020-10-02 17:58] VITALS: BP 121/56
[2020-10-02] MEDS: LORazepam 0.5 MG (ATIVAN) TABLET PO SCH (22:27)
[2020-10-02] MEDS: MIRTAZAPINE 15 MG (REMERON) TAB PO SCH (22:27)
[2020-10-03 05:22] VITALS: BP 127/58
[2020-10-03] MEDS: THIAMINE 100 MG (VITAMIN B-1) TAB PO SCH (06:09)
[2020-10-03] MEDS: KCL 10 MEQ TAB (MICRO K) PO SCH (06:09)
[2020-10-03] MEDS: MULTIVIT W/MINERALS TAB (THERAGRAN M) PO SCH (06:09)
--- NOTE | 2020-10-03 07:07 | PM&R Progress Note ---
Subjective HPI/CC On Admission Date Seen by Provider: Oct 03, 2020 Time Seen by Provider: 13:00 Subjective/Events-last exam 10/03/20: No major issues Incontinency of bladder continues BM++ 10/02/20: Restart Allopurinol but I did tell him we stopped that 02/2019 and he states he has a bottle he takes in the drawer RN reviewed bottles in his drawer and he does not take that anymore Regardless will maintain the Allopurinol BID 10/01/20: Knee pain continues and he talks about it constantly Allopurinol will be restarted at 100mg twice a day but he has been off that of February of 2019 per my office charts and there has not been any refills, he thought it was gout and it is definitely not gout. He received a steroid injection in the knee by orthopedics and currently it does not appear to be gout DC plan for next week 09/30/20: Becoming more and more independent Pt is incontinent was very helpful yesterday during family training 09/29/20: DC planning Family training today Incontinence management Doing pretty well Bowels are moving Overall feels like he is making progress 09/28/20: BM today Toileting improved Bladder training every 2 hours going well 09/27/20: Incontinence discussed Right knee pain reported is improved Voltaren gel maintained 09/26/20: Right knee about the same since knee infection No falls Incontinence continues Monitoring closely 09/25/20: Pt complaining of right knee pain Denies any other significant issues Will check X-ray and consult orthopod for possible injections since he is flaccid on the left side and really needs the right knee to ambulate Will monitor pt closely 09/24/20: Bowels moved yesterday Reports that he just spills his urinal in bed but he is definitely incontinent Voltaren Gel will be given Participating in therapy 09/23/20: Pt had a crazy dream last night Remeron may cause that so will monitor that closely and may need to discontinue Bowels moved yesterday Incontinence is being managed by using the urinal 09/22/20: Loop recorder maintained Incontinence continues Bowels are moving well Swallowing pretty well I witnessed him actually walking with one-assist No falls 09/21/20: Patient improved No pain reported Incontinence will be managed with bladder routine 09/20/20: Saw patient in midst of bed linen change due to incontinence bladder Working with therapy No pain reported except shoulder 09/19/20: Patient a bit down in spirits today No pain No ETOH withdrawal No falls Incontinence noted 09/18/20: Improved status Gets frustrated easily Has bad days and good days Loop recorder placed so will DC Tely Incontinence noted 09/17/20: Bowels moved yesterday Incontinent a bit with bowel and bladder so will try to get on bladder emptying schedule a long with bowel regimen Was able to move and lift up his left arm with a lot of effort but was remarkable Pt improved and much better spirits today 09/16/20: Telemetry needs to be maintained until loop recorder is placed Will reach out to Dr. Walker tomorrow Incontinence is an issue so will try to work with him in the urinal positional hernadez to help him In significant denial Behavioral health consult Bowels moved yesterday Catastrophic stroke and his coping mechanism is no longer available with smoking and drinking so that is causing a significant issue 09/15/20: Bowels finally moved today Lifting left leg a bit Tolerating food intake without much dysphasia Psych evaluation will be provided because of anxiety and depression and situational grief reaction due to catastrophic stroke Pt overall is very depressed Labs are okay 09/14/20: Turn Q 2hours Refusing stool softners BM 09/10/20 Colace and Senna taken today 09/13/20: Advancing diet Moved left leg a bit today No function in left arm though Shower today and shave Crushing his meds with pudding since he did choke on thin liquids Advancing diet as tolerated Bowels moved two days ago Pt appears to be very chronically ill Conferred with RN Reviewed therapy notes Checked meds and labs Review of Systems Neurological: Weakness, Incoordination Objective Exam Vital Signs Vital Signs Date Time Temp Pulse Resp B/P (MAP) Pulse Ox O2 Delivery O2 Flow Rate FiO2 10/04/20 06:05 36.6 81 18 126/63 (84) 94 Room Air Capillary Refill : Less Than 3 Seconds General Appearance: No Apparent Distress, WD/WN, Anxious, Chronically ill HEENT: PERRL/EOMI, Normal ENT Inspection, Pharynx Normal Neck: Full Range of Motion, Normal Inspection, Non Tender, Supple, Carotid Bruit Respiratory: Chest Non Tender, Lungs Clear, Normal Breath Sounds, No Accessory Muscle Use, No Respiratory Distress Cardiovascular: Regular Rate, Rhythm, No Edema, No Gallop, No JVD, No Murmur, Normal Peripheral Pulses Gastrointestinal: Normal Bowel Sounds, No Organomegaly, No Pulsatile Mass, Non Tender, Soft Back: Normal Inspection, No CVA Tenderness, No Vertebral Tenderness Extremity: Normal Capillary Refill, Normal Inspection, Normal Range of Motion (except left side weakness), Non Tender, No Calf Tenderness, No Pedal Edema Neurologic/Psychiatric: Alert, Oriented x3, Normal Mood/Affect, outpatient case manager II-XII Norm as Tested, Abnormal Gait, Depressed Affect, Facial Droop (left), Motor Weakness (left sided flaccidity) Skin: Normal Color, Warm/Dry Lymphatic: No Adenopathy Results/Procedures Lab Patient resulted labs reviewed. FIM Transfers Therapy Code Descriptions/Definitions Functional [place] Measure: 0=Not Assessed/NA 4=Minimal Assistance 1=Total Assistance 5=Supervision or Setup 2=Maximal Assistance 6=Modified [place] 3=Moderate Assistance 7=Complete IndependenceSCALE: Activities may be completed with or without assistive devices. 9-Fkkewaityb-yrrxict completes the activity by him/herself with no assistance from a helper. 5-Set-up or Clean-up Assistance-helper sets up or cleans up; patient completes activity. [place] assists only prior to or following the activity. 4-Supervision or Touching Assistance-helper provides verbal cues and/or touching/steadying and/or contact guard assistance as patient completes activity. Assistance may be provided throughout the activity or intermittently. 3-Partial/Moderate Assistance-helper does LESS THAN HALF the effort. [place] lifts, holds or supports trunk or limbs, but provides less than half the effort. 2-Substantial/Maximal Assistance-helper does MORE THAN HALF the effort. [place] lifts or holds trunk or limbs and provides more than half the effort. 9-Gljvlefnw-duucvb does ALL the effort. Patient does none of the effort to complete the activity. Or, the assistance of 2 or more helpers is required for the patient to complete the activity. If activity was not attempted, code reason: 7-Patient Refused. 9-Not Applicable-not attempted and the patient did not perform the activity before the current illness, exacerbation or injury. 10-Not Attempted due to Environmental Limitations-(lack of equipment, weather restraints, etc.). 88-Not Attempted due to Medical Conditions or Safety Concerns. Roll Left to Right (QC): 6 Sit to Lying (QC): 6 Sit to Stand (QC): 3 Chair/Exj-hl-Sbnmz Xfer(QC): 4 Car Transfer (QC): 3 Gait Training Does the Patient Walk?: Yes Distance: 4 x 60 ft Walk 10 feet (QC): 4 Walk 50 ft with 2 Turns(QC): 4 Walk 150 ft (QC): 3 Walking 10ft/uneven surface-QC: 88 Gait Persons Needed: 1 Gait Assistive Device: Walker Steffen Wheelchair Training Does the Pt Use a Wheelchair?: Yes Distance: 150' Wheel 50 ft with 2 turns (QC): 4 Wheel 150 ft (QC): 4 Type of Wheelchair: Manual Stair Training 1 Step (curb) (QC): 88 4 Steps (QC): 88 12 Steps (QC): 88 Balance Picking up an Object (QC): 88 ADL-Treatment Eating (QC): 6 Oral Hygiene (QC): 6 (Pt completed independently seated at sink.) Shower/Bathe Self (QC): 7 Upper Body Dressing (QC): 7 Lower Body Dressing (QC): 7 On/Off Footwear (QC): 4 (SBA. Pt required moderate cues to doff gripper socks, min verbal cues to don.) Toileting Hygiene (QC): 7 Toilet Transfer (QC): 2 (Max A, pt had poor carry over of stand pivot transfer between w/c and toilet. Max verbal cues with transfer.) Assessment/Plan Assessment and Plan Assess & Plan/Chief Complaint Assessment: Catastrophic CVA with left sided weakness Smoker COPD HTN Gout Neuropathy CRI Alcoholism Depression Anxiety Plan: IRF protocol Pain meds Baclofen Home meds Ativan for etoh withdrawal symptoms 09/12/20: Dysphagia screening Monitor for return of function left weakness 09/13/20: Left leg function a bit today Shower today Monitor closely 09/14/20: BM regimen Turn Q 2hours IRF protocol 09/15/20: Monitor BP Fall risk Monitor dysphagia and aspiration risk 09/16/20: Nicotine patch Monitor aspiration 09/17/20: Left arm improving dramatically No pain reported Improved status 09/18/20: Improved status Loop recorder DC Tely 09/19/20: Monitor closely Loop recorder site is less tender now Fall risk incontinence care 09/20/20: Incontinence care Monitor bowels Therapy to intensify 09/21/20: Monitor incontinence 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 to decrease systems specialist burden 09/22/20: PT OT ST Incontinence 09/23/20: Monitor incontinence Monitor dreams may need to DC Remeron 09/24/20: Monitor incontinence Urinal spilling will need close monitoring 09/25/20: Right knee eval by Dr Huang team Check xrays 09/26/20: Monitor right knee pain Continue aggressive therapy 09/27/20: Incontinence care Right knee pain management 09/28/20: Bladder training Check labs in am 09/29/20: Labs stable IRF protocol Education for today 09/30/20: Incontinence management DC soon Right knee pain management 10/01/20: Allopurinol restarted at his request Right knee pain does not appear to be gout 10/02/20: Monitor incontinence 10/03/20: Right knee pain improved Incontinence management (1) Acute CVA (cerebrovascular accident) Status: Acute (2) Left-sided weakness Status: Acute (3) Gout (4) Alcoholism Status: Chronic (5) Ulcer of great toe Status: Acute (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
[2020-10-03] MEDS: MAGNESIUM OXIDE (MAG-OX)400 MG TAB PO SCH ×2 (08:56→17:17)
[2020-10-03] MEDS: amLODIPine 5 MG (NORVASC) TAB PO SCH (08:56)
[2020-10-03] MEDS: NICOTINE 14 MG (NICODERM) PATCH TD SCH (08:56)
[2020-10-03] MEDS: SENNA W/DOCUSATE (SENOKOT S) TABLET PO SCH ×2 (08:56→21:28)
[2020-10-03] MEDS: DICLOFENAC 1% GEL 100 GM (VOLTAREN) TUBE TOP SCH ×4 (08:56→21:27)
[2020-10-03] MEDS: ASPIRIN E.C. 325 MG (ECOTRIN) TABLET PO SCH (08:56)
[2020-10-03] MEDS: FOLIC ACID 1 MG TAB PO SCH (08:56)
[2020-10-03] MEDS: ATENOLOL 25 MG (TENORMIN) TAB PO SCH (08:56)
[2020-10-03] MEDS: ALLOPURINOL 100 MG (ZYLOPRIM) TAB PO SCH ×2 (08:56→17:17)
[2020-10-03] MEDS: DOCUSATE SODIUM 10 MG/ML 10 ML UDC (COLACE) NG SCH ×2 (08:56→21:27)
[2020-10-03] MEDS: NICOTINE PATCH REMOVAL TP SCH (08:58)
[2020-10-03] MEDS: polyethylene glycoL POWDER 17 GM (MIRALAX) PACK PO SCH ×2 (08:58→21:27)
--- NOTE | 2020-10-03 10:25 | Physical Therapy Daily Note ---
PT Daily Note-Current Subjective Patient in recliner pre tx, agrees to PT, has no complaints of pain, will be co- treating with OT due to poor patient mobility, strength, endurance, left hemiparesis, the need to coordinate UE and LE during activity. Appearance Patient in recliner post tx with nurse call, phone, tray, all needs met. Mental Status Patient Orientation: Person, Place, Situation, Normal For Age Transfers SCALE: Activities may be completed with or without assistive devices. 7-Sdgqewklxh-yutqnoq completes the activity by him/herself with no assistance from a helper. 5-Set-up or Clean-up Assistance-helper sets up or cleans up; patient completes activity. [place] assists only prior to or following the activity. 4-Supervision or Touching Assistance-helper provides verbal cues and/or touching/steadying and/or contact guard assistance as patient completes activity. Assistance may be provided throughout the activity or intermittently. 3-Partial/Moderate Assistance-helper does LESS THAN HALF the effort. [place] lifts, holds or supports trunk or limbs, but provides less than half the effort. 2-Substantial/Maximal Assistance-helper does MORE THAN HALF the effort. [place] lifts or holds trunk or limbs and provides more than half the effort. 3-Zebfudeva-nkdbie does ALL the effort. Patient does none of the effort to complete the activity. Or, the assistance of 2 or more helpers is required for the patient to complete the activity. If activity was not attempted, code reason: 7-Patient Refused. 9-Not Applicable-not attempted and the patient did not perform the activity before the current illness, exacerbation or injury. 10-Not Attempted due to Environmental Limitations-(lack of equipment, weather restraints, etc.). 88-Not Attempted due to Medical Conditions or Safety Concerns. Sit to Stand (QC): 3 Chair/Rqs-uf-Djcze Xfer(QC): 3 Patient sit to stand and ambulate 10' into bathroom to shower bench, shower (standing several times for cleaning and dressing), transfer to , propel to therapy gym 150' SBA, standing balance activity hitting balloon, ambulate in hallway x2 for 20' using handrail [facility], back to room and transfer to recliner. Weight Bearing Full Weight Bearing Full Weight Bearing Treatments PT performed transfers, ambulation, mobility, standing balance activity, positioning and standing during bathing and dressing, OT performed bathing and dressing, UE positioning and safety during activity, standing balance activity. Assessment Current Status: Fair Progress improving standing balance PT Short Term Goals Short Term Goals Time Frame: Sep 18, 2020 Roll Left & Right: 6 Sit to lyin Lying to sitting on side of be: 3 Sit to stand: 3 Chair/mxq-us-pwxin transfer: 3 Toilet transfer: 3 Walk 10 feet: 3 Wheel 50ft w/2 turns: 4 Wheel 150 feet: 4 PT Director Of Intercollegiate Athletics Goals Director Of Intercollegiate Athletics Goals PT Nursing Home Goals Time Frame: Oct 02, 2020 Roll Left & Right (QC): 6 Sit to Lying (QC): 6 Lying-Sitting on Side/Bed(QC): 6 Sit to Stand (QC): 4 Chair/Iny-pt-Lvtdn Xfer(QC): 4 Toilet Transfer (QC): 4 Car Transfer (QC): 4 Does the Patient Walk: No and Walking Goal IS indicated Walk 10 feet (QC): 4 Walk 50ft with 2 Turns (QC): 4 Walk 150 ft (QC): 4 Walking 10ft on Uneven Surface: 4 1 Step (curb) (QC): 3 4 Steps (QC): 3 12 Steps (QC): 88 Picking up an Object (QC): 4 Wheel 50 feet with 2 turns (QC: 6 Wheel 150 feet: 6 PT Plan Problem List Problem List: Activity Tolerance, Functional Strength, Safety, Balance, Gait, Transfer, Bed Mobility, ROM Treatment/Plan Treatment Plan: Continue Plan of Care Treatment Plan: Bed Mobility, Education, Functional Activity Francesca, Functional Strength, Group Therapy, Gait, Safety, Therapeutic Exercise, Transfers Treatment Duration: Sep 25, 2020 Frequency: At least 5 of 7 days/Wk (IRF) Estimated Hrs Per Day: 1.5 hours per day Patient and/or Family Agrees t: Yes Safety Risks/Education Patient Education: Gait Training, Transfer Techniques, Correct Positioning, W/C Management, Safety Issues Teaching Recipient: Patient Teaching Methods: Demonstration, Discussion Response to Teaching: Reinforcement Needed Time/GCodes Time In: 0900 Time Out: 1015 Total Billed Treatment Time: 75 Total Billed Treatment 1 visit NM 15' FA 60' KRISTINE HAWK PT Oct 03, 2020 10:25
--- NOTE | 2020-10-03 11:48 | Occupational Ther Daily Note ---
OT Current Status-Daily Note Subjective Pt seated in recliner, agreeable to OT. Mental Status/Objective Patient Orientation: Person, Place, Time, Situation ADL-Treatment Therapy Code Descriptions/Definitions Functional [place] Measure: 0=Not Assessed/NA 4=Minimal Assistance 1=Total Assistance 5=Supervision or Setup 2=Maximal Assistance 6=Modified [place] 3=Moderate Assistance 7=Complete IndependenceSCALE: Activities may be completed with or without assistive devices. 8-Vzptdfhxkl-gwparkh completes the activity by him/herself with no assistance from a helper. 5-Set-up or Clean-up Assistance-helper sets up or cleans up; patient completes activity. [place] assists only prior to or following the activity. 4-Supervision or Touching Assistance-helper provides verbal cues and/or touching/steadying and/or contact guard assistance as patient completes activity. Assistance may be provided throughout the activity or intermittently. 3-Partial/Moderate Assistance-helper does LESS THAN HALF the effort. [place] lifts, holds or supports trunk or limbs, but provides less than half the effort. 2-Substantial/Maximal Assistance-helper does MORE THAN HALF the effort. [place] lifts or holds trunk or limbs and provides more than half the effort. 0-Acgjvvbxs-repzke does ALL the effort. Patient does none of the effort to complete the activity. Or, the assistance of 2 or more helpers is required for the patient to complete the activity. If activity was not attempted, code reason: 7-Patient Refused. 9-Not Applicable-not attempted and the patient did not perform the activity before the current illness, exacerbation or injury. 10-Not Attempted due to Environmental Limitations-(lack of equipment, weather restraints, etc.). 88-Not Attempted due to Medical Conditions or Safety Concerns. Shower/Bathe Self (QC): 4 (SBA, pt able to wash/dry all parts seated on SC.) Other Treatment OT/PT cotreat due to skill of 2 clinicians required that a rehabilitation therapist could not perform in order to coordinate UE/LEs with tasks, focus on dynamic standing balance while reaching, and due to pt's limitations in strength and functional mobility. OT focused on ADLs, UE placement, cues for sequencing and safety, and dynamic reaching task while PT focused on transfers, LE placement, gross overall movements, and dynamic standing balance. Pt ambulated into restroom using sherrie- walker, transferring to ID. Pt doffed clothes, then completed showering. OT assisted pt with donning clothes so tx could focus on dynamic standing, thus no QC scores given for dressing tasks. Pt transferred to w/c, and taken to therapy gym. In order to focus on dynamic standing balance, pt stood with PT at sherrie- walker as OT hit balloon back and forth with pt, all planes using RUE. Pt able to complete task x3 trials, seated rest breaks between. Pt then taken to retana way, ambulating x2 for 20' using handrail CGA. Pt self-propelled w/c back to his room, transferring to recliner. Post OT/PT tx, pt seated in recliner, call light in reach and all needs met. Education OT Patient Education: Correct positioning, Energy conservation, Modified ADL techniques, Progress toward Goal/Update tx plan, Purpose of tx/functional activities, Safety issues Teaching Recipient: Patient Teaching Methods: Discussion Response to Teaching: Verbalize Understanding OT Client Experience Manager Goals [facility]sp Goals Time Frame: Oct 03, 2020 Eating (QC): 6 Oral Hygiene (QC): 6 Toileting Hygiene (QC): 4 Shower/Bathe Self (QC): 4 Upper Body Dressing (QC): 6 Lower Body Dressing (QC): 4 On/Off Footwear (QC): 4 Additional Goals: 1-Demonstrate ADL Tasks, 2-Verbalize Understanding, 3- ImproveStrength/Francesca 1=Demonstrate adherence to instructed precautions during ADL tasks. 2=Patient will verbalize/demonstrate understanding of assistive devices/modifications for ADL. 3=Patient will improve strength/tolerance for activity to enable patient to perform ADL's. OT Education/Plan Problem List/Assessment Assessment: Decreased Activ Tolerance, Decreased UE Strength, Impaired Funct Balance, Impaired I ADL's, Impaired Self-Care Skills, Restricted Funct UE ROM Discharge Recommendations Plan/Recommendations: Continue POC Treatment Plan/Plan of Care Patient would benefit from OT for education, treatment and training to promote independence in ADL's, mobility, safety and/or upper extremity function for ADL's. Plan of Care: ADL Retraining, Functional Mobility, Group Exercise/Act as Ind, UE Funct Exercise/Act, UE Neuromus Re-Ed/Coord Treatment Duration: Oct 03, 2020 Frequency: At least 5 of 7 days/Wk (IRF) Estimated Hrs Per Day: 1.5 hours per day Agreement: Yes Rehab Potential: Fair Time/GCodes Start Time: 09:00 Stop Time: 10:15 Total Time Billed (hr/min): 75 Billed Treatment Time OT/PT cotreat x75' 1, ADL 3 (25'), FA 2 (30') WILFREDO CORLEY OT Oct 03, 2020 11:48
--- NOTE | 2020-10-03 13:34 | Speech Therapy Daily Note ---
Speech Daily Progress Note Subjective Date Seen by Provider: Oct 03, 2020 Time Seen by Provider: 00:30 Patient was sitting up in his recliner playing on his I-pad. Objective Patient completed simple fill in the blank sentences presented verbally with 95% given minimum cues/repetitions. Assessment Assessment Current Status: Good Progress Treatment Plan Continue Plan of Care Speech Short Term Goals Short Term Goals Short Term Goals 1) The patient will complete memory tasks related to her daily needs at 80% or greater with minimal cues. 2) The patient will complete safety awareness tasks related to her daily needs at 80% or greater with minimal cues. 3) The patient will complete problem solving tasks related to her daily needs at 80% or greater with minimal cues. 4) The patient will complete OME for improving speech intelligibility. Speech Group Home Goals Group Home Goals Patient will improve cognitive and speech abilities in order to effectively meet his daily needs with minimal assist. Speech-Plan Patient/Family Goals Patient/Family Goals: Patient plans on returning to his home where he lives with his . Treatment Plan Speech Therapy Treatment Plan: Continue Plan of Care Treatment Duration: Oct 10, 2020 Frequency: 4 times per week (Patient will receive skilled ST 4-5x per week) Estimated Hrs Per Day: .5 hour per day Rehab Potential: Fair Barriers to Learning: Patient's recent CVA Pt/Family Agrees to Plan: Yes Safety Risks/Education Teaching Recipient: Patient Teaching Methods: Demonstration, Discussion Response to Teaching: Verbalize Understanding, Return Demonstration Education Topics Provided: Safety within his room and upon his return home Time Speech Therapy Time In: 10:30 Speech Therapy Time Out: 11:00 Total Billed Time: 30 Billed Treatment Time 1, YUVAL Flores Oct 03, 2020 13:34
[2020-10-03 16:09] VITALS: BP 138/69
--- NOTE | 2020-10-03 19:15 | NUR ---
Bedside report received from SANDEEP UMAÑA, assume care of pt
[2020-10-03] MEDS: MIRTAZAPINE 15 MG (REMERON) TAB PO SCH (21:24)
[2020-10-03] MEDS: LORazepam 0.5 MG (ATIVAN) TABLET PO SCH (21:24)
--- NOTE | 2020-10-03 21:27 | NUR ---
Pt refused Colace, Miralax & Senokot, stating had stool today, up in recliner on lap top
[2020-10-04 06:05] VITALS: BP 126/63
[2020-10-04] MEDS: THIAMINE 100 MG (VITAMIN B-1) TAB PO SCH (06:52)
[2020-10-04] MEDS: MULTIVIT W/MINERALS TAB (THERAGRAN M) PO SCH (06:52)
[2020-10-04] MEDS: KCL 10 MEQ TAB (MICRO K) PO SCH (06:52)
[2020-10-04] MEDS: SENNA W/DOCUSATE (SENOKOT S) TABLET PO SCH ×2 (08:40→21:29)
[2020-10-04] MEDS: NICOTINE PATCH REMOVAL TP SCH (08:41)
[2020-10-04] MEDS: ATENOLOL 25 MG (TENORMIN) TAB PO SCH (08:41)
[2020-10-04] MEDS: ALLOPURINOL 100 MG (ZYLOPRIM) TAB PO SCH ×2 (08:41→17:05)
[2020-10-04] MEDS: FOLIC ACID 1 MG TAB PO SCH (08:41)
[2020-10-04] MEDS: MAGNESIUM OXIDE (MAG-OX)400 MG TAB PO SCH ×2 (08:41→17:04)
[2020-10-04] MEDS: amLODIPine 5 MG (NORVASC) TAB PO SCH (08:42)
[2020-10-04] MEDS: NICOTINE 14 MG (NICODERM) PATCH TD SCH (08:42)
[2020-10-04] MEDS: polyethylene glycoL POWDER 17 GM (MIRALAX) PACK PO SCH ×2 (08:42→21:29)
[2020-10-04] MEDS: DICLOFENAC 1% GEL 100 GM (VOLTAREN) TUBE TOP SCH ×4 (08:42→21:30)
[2020-10-04] MEDS: DOCUSATE SODIUM 10 MG/ML 10 ML UDC (COLACE) NG SCH ×2 (08:42→21:29)
[2020-10-04] MEDS: ASPIRIN E.C. 325 MG (ECOTRIN) TABLET PO SCH (08:56)
--- NOTE | 2020-10-04 10:42 | Physical Therapy Daily Note ---
PT Daily Note-Current Subjective Pt is in the chair and ready for PT. Mental Status Patient Orientation: Person, Place, Time, Situation Transfers SCALE: Activities may be completed with or without assistive devices. 9-Hqmzcuazqb-qqczidk completes the activity by him/herself with no assistance from a helper. 5-Set-up or Clean-up Assistance-helper sets up or cleans up; patient completes activity. [place] assists only prior to or following the activity. 4-Supervision or Touching Assistance-helper provides verbal cues and/or touchin g/steadying and/or contact guard assistance as patient completes activity. Assistance may be provided throughout the activity or intermittently. 3-Partial/Moderate Assistance-helper does LESS THAN HALF the effort. [place] lifts, holds or supports trunk or limbs, but provides less than half the effort. 2-Substantial/Maximal Assistance-helper does MORE THAN HALF the effort. [place] lifts or holds trunk or limbs and provides more than half the effort. 1-Srqzqnlic-lepwfi does ALL the effort. Patient does none of the effort to complete the activity. Or, the assistance of 2 or more helpers is required for the patient to complete the activity. If activity was not attempted, code reason: 7-Patient Refused. 9-Not Applicable-not attempted and the patient did not perform the activity before the current illness, exacerbation or injury. 10-Not Attempted due to Environmental Limitations-(lack of equipment, weather restraints, etc.). 88-Not Attempted due to Medical Conditions or Safety Concerns. Sit to Stand (QC): 5 Weight Bearing Full Weight Bearing Full Weight Bearing Gait Training Does the Patient Walk?: Yes Distance: 20ft x4 Walk 10 feet (QC): 4 Gait Assistive Device: Parallel Bars Ambulation in parallel bars today due to no assistance available. Pt worked on foot placement with turning. Exercises Standin way Ex=Flex, Abd, Ext Standing Reps: 10 Assessment Current Status: Good Progress Pt showed good stability with standing exercises and gait. No signs of instability. PT Short Term Goals Short Term Goals Time Frame: Sep 18, 2020 Roll Left & Right: 6 Sit to lyin Lying to sitting on side of be: 3 Sit to stand: 3 Chair/qxs-jr-cruja transfer: 3 Toilet transfer: 3 Walk 10 feet: 3 Wheel 50ft w/2 turns: 4 Wheel 150 feet: 4 PT Surveillance Inspector Goals Surveillance Inspector Goals PT Jail Goals Time Frame: Oct 02, 2020 Roll Left & Right (QC): 6 Sit to Lying (QC): 6 Lying-Sitting on Side/Bed(QC): 6 Sit to Stand (QC): 4 Chair/Rbt-sx-Gqheq Xfer(QC): 4 Toilet Transfer (QC): 4 Car Transfer (QC): 4 Does the Patient Walk: No and Walking Goal IS indicated Walk 10 feet (QC): 4 Walk 50ft with 2 Turns (QC): 4 Walk 150 ft (QC): 4 Walking 10ft on Uneven Surface: 4 1 Step (curb) (QC): 3 4 Steps (QC): 3 12 Steps (QC): 88 Picking up an Object (QC): 4 Wheel 50 feet with 2 turns (QC: 6 Wheel 150 feet: 6 PT Plan Treatment/Plan Treatment Plan: Continue Plan of Care Treatment Plan: Bed Mobility, Education, Functional Activity Francesca, Functional Strength, Group Therapy, Gait, Safety, Therapeutic Exercise, Transfers Treatment Duration: Sep 25, 2020 Frequency: At least 5 of 7 days/Wk (IRF) Estimated Hrs Per Day: 1.5 hours per day Patient and/or Family Agrees t: Yes Time/GCodes Time In: 0955 Time Out: 1025 Total Billed Treatment Time: 30 Total Billed Treatment 1, gt x2 (30) JULIO HERNANDEZ PT Oct 04, 2020 10:42
--- NOTE | 2020-10-04 14:00 | PM&R Progress Note ---
Subjective HPI/CC On Admission Date Seen by Provider: Oct 04, 2020 Time Seen by Provider: 14:00 Subjective/Events-last exam 10/04/20: BM 10/03 Doing well Wants to go home 10/03/20: No major issues Incontinency of bladder continues BM++ 10/02/20: Restart Allopurinol but I did tell him we stopped that 02/2019 and he states he has a bottle he takes in the drawer RN reviewed bottles in his drawer and he does not take that anymore Regardless will maintain the Allopurinol BID 10/01/20: Knee pain continues and he talks about it constantly Allopurinol will be restarted at 100mg twice a day but he has been off that of February of 2019 per my office charts and there has not been any refills, he thought it was gout and it is definitely not gout. He received a steroid injection in the knee by orthopedics and currently it does not appear to be gout DC plan for next week 09/30/20: Becoming more and more independent Pt is incontinent was very helpful yesterday during family training 09/29/20: DC planning Family training today Incontinence management Doing pretty well Bowels are moving Overall feels like he is making progress 09/28/20: BM today Toileting improved Bladder training every 2 hours going well 09/27/20: Incontinence discussed Right knee pain reported is improved Voltaren gel maintained 09/26/20: Right knee about the same since knee infection No falls Incontinence continues Monitoring closely 09/25/20: Pt complaining of right knee pain Denies any other significant issues Will check X-ray and consult orthopod for possible injections since he is flaccid on the left side and really needs the right knee to ambulate Will monitor pt closely 09/24/20: Bowels moved yesterday Reports that he just spills his urinal in bed but he is definitely incontinent Voltaren Gel will be given Participating in therapy 09/23/20: Pt had a crazy dream last night Remeron may cause that so will monitor that closely and may need to discontinue Bowels moved yesterday Incontinence is being managed by using the urinal 09/22/20: Loop recorder maintained Incontinence continues Bowels are moving well Swallowing pretty well I witnessed him actually walking with one-assist No falls 09/21/20: Patient improved No pain reported Incontinence will be managed with bladder routine 09/20/20: Saw patient in midst of bed linen change due to incontinence bladder Working with therapy No pain reported except shoulder 09/19/20: Patient a bit down in spirits today No pain No ETOH withdrawal No falls Incontinence noted 09/18/20: Improved status Gets frustrated easily Has bad days and good days Loop recorder placed so will DC Tely Incontinence noted 09/17/20: Bowels moved yesterday Incontinent a bit with bowel and bladder so will try to get on bladder emptying schedule a long with bowel regimen Was able to move and lift up his left arm with a lot of effort but was remarkable Pt improved and much better spirits today 09/16/20: Telemetry needs to be maintained until loop recorder is placed Will reach out to Dr. Walker tomorrow Incontinence is an issue so will try to work with him in the urinal positional hernadez to help him In significant denial Behavioral health consult Bowels moved yesterday Catastrophic stroke and his coping mechanism is no longer available with smoking and drinking so that is causing a significant issue 09/15/20: Bowels finally moved today Lifting left leg a bit Tolerating food intake without much dysphasia Psych evaluation will be provided because of anxiety and depression and situational grief reaction due to catastrophic stroke Pt overall is very depressed Labs are okay 09/14/20: Turn Q 2hours Refusing stool softners BM 09/10/20 Colace and Senna taken today 09/13/20: Advancing diet Moved left leg a bit today No function in left arm though Shower today and shave Crushing his meds with pudding since he did choke on thin liquids Advancing diet as tolerated Bowels moved two days ago Pt appears to be very chronically ill Conferred with RN Reviewed therapy notes Checked meds and labs Review of Systems Neurological: Weakness, Incoordination Objective Exam Vital Signs Vital Signs Date Time Temp Pulse Resp B/P (MAP) Pulse Ox O2 Delivery O2 Flow Rate FiO2 10/04/20 09:00 Room Air 10/04/20 06:05 36.6 81 18 126/63 (84) 94 Capillary Refill : Less Than 3 Seconds General Appearance: No Apparent Distress, WD/WN, Anxious, Chronically ill HEENT: PERRL/EOMI, Normal ENT Inspection, Pharynx Normal Neck: Full Range of Motion, Normal Inspection, Non Tender, Supple, Carotid Bruit Respiratory: Chest Non Tender, Lungs Clear, Normal Breath Sounds, No Accessory Muscle Use, No Respiratory Distress Cardiovascular: Regular Rate, Rhythm, No Edema, No Gallop, No JVD, No Murmur, Normal Peripheral Pulses Gastrointestinal: Normal Bowel Sounds, No Organomegaly, No Pulsatile Mass, Non Tender, Soft Back: Normal Inspection, No CVA Tenderness, No Vertebral Tenderness Extremity: Normal Capillary Refill, Normal Inspection, Normal Range of Motion (except left side weakness), Non Tender, No Calf Tenderness, No Pedal Edema Neurologic/Psychiatric: Alert, Oriented x3, Normal Mood/Affect, 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 FIM Transfers Therapy Code Descriptions/Definitions Functional [place] Measure: 0=Not Assessed/NA 4=Minimal Assistance 1=Total Assistance 5=Supervision or Setup 2=Maximal Assistance 6=Modified [place] 3=Moderate Assistance 7=Complete IndependenceSCALE: Activities may be completed with or without assistive devices. 2-Tvvtmbsjob-tuvatlo completes the activity by him/herself with no assistance fr om a helper. 5-Set-up or Clean-up Assistance-helper sets up or cleans up; patient completes activity. [place] assists only prior to or following the activity. 4-Supervision or Touching Assistance-helper provides verbal cues and/or touching/steadying and/or contact guard assistance as patient completes activity. Assistance may be provided throughout the activity or intermittently. 3-Partial/Moderate Assistance-helper does LESS THAN HALF the effort. [place] lifts, holds or supports trunk or limbs, but provides less than half the effort. 2-Substantial/Maximal Assistance-helper does MORE THAN HALF the effort. [place] lifts or holds trunk or limbs and provides more than half the effort. 3-Hzvbqtwiv-vvwqfe does ALL the effort. Patient does none of the effort to complete the activity. Or, the assistance of 2 or more helpers is required for the patient to complete the activity. If activity was not attempted, code reason: 7-Patient Refused. 9-Not Applicable-not attempted and the patient did not perform the activity before the current illness, exacerbation or injury. 10-Not Attempted due to Environmental Limitations-(lack of equipment, weather restraints, etc.). 88-Not Attempted due to Medical Conditions or Safety Concerns. Roll Left to Right (QC): 6 Sit to Lying (QC): 6 Sit to Stand (QC): 5 Chair/Lxs-ht-Wermh Xfer(QC): 3 Car Transfer (QC): 3 Gait Training Does the Patient Walk?: Yes Distance: 20ft x4 Walk 10 feet (QC): 4 Walk 50 ft with 2 Turns(QC): 4 Walk 150 ft (QC): 3 Walking 10ft/uneven surface-QC: 88 Gait Persons Needed: 1 Gait Assistive Device: Parallel Bars Wheelchair Training Does the Pt Use a Wheelchair?: Yes Distance: 150' Wheel 50 ft with 2 turns (QC): 4 Wheel 150 ft (QC): 4 Type of Wheelchair: Manual Stair Training 1 Step (curb) (QC): 88 4 Steps (QC): 88 12 Steps (QC): 88 Balance Picking up an Object (QC): 88 ADL-Treatment Eating (QC): 6 Oral Hygiene (QC): 6 (Pt completed independently seated at sink.) Shower/Bathe Self (QC): 4 (SBA, pt able to wash/dry all parts seated on SC.) Upper Body Dressing (QC): 7 Lower Body Dressing (QC): 7 On/Off Footwear (QC): 4 (SBA. Pt required moderate cues to doff gripper socks, min verbal cues to don.) Toileting Hygiene (QC): 7 Toilet Transfer (QC): 2 (Max A, pt had poor carry over of stand pivot transfer between w/c and toilet. Max verbal cues with transfer.) Assessment/Plan Assessment and Plan Assess & Plan/Chief Complaint Assessment: Catastrophic CVA with left sided weakness Smoker COPD HTN Gout Neuropathy CRI Alcoholism Depression Anxiety Plan: IRF protocol Pain meds Baclofen Home meds Ativan for etoh withdrawal symptoms 09/12/20: Dysphagia screening Monitor for return of function left weakness 09/13/20: Left leg function a bit today Shower today Monitor closely 09/14/20: BM regimen Turn Q 2hours IRF protocol 09/15/20: Monitor BP Fall risk Monitor dysphagia and aspiration risk 09/16/20: Nicotine patch Monitor aspiration 09/17/20: Left arm improving dramatically No pain reported Improved status 09/18/20: Improved status Loop recorder DC Tely 09/19/20: Monitor closely Loop recorder site is less tender now Fall risk incontinence care 09/20/20: Incontinence care Monitor bowels Therapy to intensify 09/21/20: Monitor incontinence 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 to decrease replacer burden 09/22/20: PT OT ST Incontinence 09/23/20: Monitor incontinence Monitor dreams may need to DC Remeron 09/24/20: Monitor incontinence Urinal spilling will need close monitoring 09/25/20: Right knee eval by Dr Huang team Check xrays 09/26/20: Monitor right knee pain Continue aggressive therapy 09/27/20: Incontinence care Right knee pain management 09/28/20: Bladder training Check labs in am 09/29/20: Labs stable IRF protocol Education for today 09/30/20: Incontinence management DC soon Right knee pain management 10/01/20: Allopurinol restarted at his request Right knee pain does not appear to be gout 10/02/20: Monitor incontinence 10/03/20: Right knee pain improved Incontinence management 10/04/20: BM regimen Incontinence (1) Acute CVA (cerebrovascular accident) Status: Acute (2) Left-sided weakness Status: Acute (3) Gout (4) Alcoholism Status: Chronic (5) Ulcer of great toe Status: Acute (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
[2020-10-04 16:48] VITALS: BP 138/78
--- NOTE | 2020-10-04 19:14 | NUR ---
Bedside report received from MUSA UMAÑA, assume care of pt
[2020-10-04] MEDS: MIRTAZAPINE 15 MG (REMERON) TAB PO SCH (21:25)
[2020-10-04] MEDS: LORazepam 0.5 MG (ATIVAN) TABLET PO SCH (21:25)
--- NOTE | 2020-10-04 21:25 | NUR ---
Pt refused Colace, Miralax & Senokot, takes pills well one at a time sitting up straight, remains up in the recliner watching tv
[2020-10-05 06:17] VITALS: BP 97/49
[2020-10-05] MEDS: KCL 10 MEQ TAB (MICRO K) PO SCH (06:18)
[2020-10-05] MEDS: THIAMINE 100 MG (VITAMIN B-1) TAB PO SCH (06:18)
[2020-10-05] MEDS: MULTIVIT W/MINERALS TAB (THERAGRAN M) PO SCH (06:18)
--- NOTE | 2020-10-05 07:32 | PM&R Progress Note ---
Subjective HPI/CC On Admission Date Seen by Provider: Oct 05, 2020 Time Seen by Provider: 12:30 Subjective/Events-last exam 10/05/20: Walked well today DC soon Monitored closely 10/04/20: BM 10/03 Doing well Wants to go home 10/03/20: No major issues Incontinency of bladder continues BM++ 10/02/20: Restart Allopurinol but I did tell him we stopped that 02/2019 and he states he has a bottle he takes in the drawer RN reviewed bottles in his drawer and he does not take that anymore Regardless will maintain the Allopurinol BID 10/01/20: Knee pain continues and he talks about it constantly Allopurinol will be restarted at 100mg twice a day but he has been off that of February of 2019 per my office charts and there has not been any refills, he thought it was gout and it is definitely not gout. He received a steroid injection in the knee by orthopedics and currently it does not appear to be gout DC plan for next week 09/30/20: Becoming more and more independent Pt is incontinent was very helpful yesterday during family training 09/29/20: DC planning Family training today Incontinence management Doing pretty well Bowels are moving Overall feels like he is making progress 09/28/20: BM today Toileting improved Bladder training every 2 hours going well 09/27/20: Incontinence discussed Right knee pain reported is improved Voltaren gel maintained 09/26/20: Right knee about the same since knee infection No falls Incontinence continues Monitoring closely 09/25/20: Pt complaining of right knee pain Denies any other significant issues Will check X-ray and consult orthopod for possible injections since he is flaccid on the left side and really needs the right knee to ambulate Will monitor pt closely 09/24/20: Bowels moved yesterday Reports that he just spills his urinal in bed but he is definitely incontinent Voltaren Gel will be given Participating in therapy 09/23/20: Pt had a crazy dream last night Remeron may cause that so will monitor that closely and may need to discontinue Bowels moved yesterday Incontinence is being managed by using the urinal 09/22/20: Loop recorder maintained Incontinence continues Bowels are moving well Swallowing pretty well I witnessed him actually walking with one-assist No falls 09/21/20: Patient improved No pain reported Incontinence will be managed with bladder routine 09/20/20: Saw patient in midst of bed linen change due to incontinence bladder Working with therapy No pain reported except shoulder 09/19/20: Patient a bit down in spirits today No pain No ETOH withdrawal No falls Incontinence noted 09/18/20: Improved status Gets frustrated easily Has bad days and good days Loop recorder placed so will DC Tely Incontinence noted 09/17/20: Bowels moved yesterday Incontinent a bit with bowel and bladder so will try to get on bladder emptying schedule a long with bowel regimen Was able to move and lift up his left arm with a lot of effort but was remarkable Pt improved and much better spirits today 09/16/20: Telemetry needs to be maintained until loop recorder is placed Will reach out to Dr. Walker tomorrow Incontinence is an issue so will try to work with him in the urinal positional hernadez to help him In significant denial Behavioral health consult Bowels moved yesterday Catastrophic stroke and his coping mechanism is no longer available with smoking and drinking so that is causing a significant issue 09/15/20: Bowels finally moved today Lifting left leg a bit Tolerating food intake without much dysphasia Psych evaluation will be provided because of anxiety and depression and situa tional grief reaction due to catastrophic stroke Pt overall is very depressed Labs are okay 09/14/20: Turn Q 2hours Refusing stool softners BM 09/10/20 Colace and Senna taken today 09/13/20: Advancing diet Moved left leg a bit today No function in left arm though Shower today and shave Crushing his meds with pudding since he did choke on thin liquids Advancing diet as tolerated Bowels moved two days ago Pt appears to be very chronically ill Conferred with RN Reviewed therapy notes Checked meds and labs Review of Systems Neurological: Weakness, Incoordination Objective Exam Vital Signs Vital Signs Date Time Temp Pulse Resp B/P (MAP) Pulse Ox O2 Delivery O2 Flow Rate FiO2 10/05/20 09:00 Room Air 10/05/20 08:29 122/59 (80) 10/05/20 06:17 36.0 79 16 93 Capillary Refill : Less Than 3 Seconds General Appearance: No Apparent Distress, WD/WN, Anxious, Chronically ill HEENT: PERRL/EOMI, Normal ENT Inspection, Pharynx Normal Neck: Full Range of Motion, Normal Inspection, Non Tender, Supple, Carotid Bruit Respiratory: Chest Non Tender, Lungs Clear, Normal Breath Sounds, No Accessory Muscle Use, No Respiratory Distress Cardiovascular: Regular Rate, Rhythm, No Edema, No Gallop, No JVD, No Murmur, Normal Peripheral Pulses Gastrointestinal: Normal Bowel Sounds, No Organomegaly, No Pulsatile Mass, Non Tender, Soft Back: Normal Inspection, No CVA Tenderness, No Vertebral Tenderness Extremity: Normal Capillary Refill, Normal Inspection, Normal Range of Motion (except left side weakness), Non Tender, No Calf Tenderness, No Pedal Edema Neurologic/Psychiatric: Alert, Oriented x3, Normal 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 FIM Transfers Therapy Code Descriptions/Definitions Functional [place] Measure: 0=Not Assessed/NA 4=Minimal Assistance 1=Total Assistance 5=Supervision or Setup 2=Maximal Assistance 6=Modified [place] 3=Moderate Assistance 7=Complete IndependenceSCALE: Activities may be completed with or without assistive devices. 5-Jayjleaxwh-ujtvgbf completes the activity by him/herself with no assistance from a helper. 5-Set-up or Clean-up Assistance-helper sets up or cleans up; patient completes activity. [place] assists only prior to or following the activity. 4-Supervision or Touching Assistance-helper provides verbal cues and/or touching/steadying and/or contact guard assistance as patient completes activity. Assistance may be provided throughout the activity or intermittently. 3-Partial/Moderate Assistance-helper does LESS THAN HALF the effort. [place] lifts, holds or supports trunk or limbs, but provides less than half the effort. 2-Substantial/Maximal Assistance-helper does MORE THAN HALF the effort. [place] lifts or holds trunk or limbs and provides more than half the effort. 1-Bctceqmbh-thodwo does ALL the effort. Patient does none of the effort to complete the activity. Or, the assistance of 2 or more helpers is required for the patient to complete the activity. If activity was not attempted, code reason: 7-Patient Refused. 9-Not Applicable-not attempted and the patient did not perform the activity before the current illness, exacerbation or injury. 10-Not Attempted due to Environmental Limitations-(lack of equipment, weather restraints, etc.). 88-Not Attempted due to Medical Conditions or Safety Concerns. Roll Left to Right (QC): 6 Sit to Lying (QC): 6 Sit to Stand (QC): 5 Chair/Ktw-fi-Cmkkz Xfer(QC): 3 Car Transfer (QC): 3 Gait Training Does the Patient Walk?: Yes Distance: 20ft x4 Walk 10 feet (QC): 4 Walk 50 ft with 2 Turns(QC): 4 Walk 150 ft (QC): 3 Walking 10ft/uneven surface-QC: 88 Gait Persons Needed: 1 Gait Assistive Device: Parallel Bars Wheelchair Training Does the Pt Use a Wheelchair?: Yes Distance: 150' Wheel 50 ft with 2 turns (QC): 4 Wheel 150 ft (QC): 4 Type of Wheelchair: Manual Stair Training 1 Step (curb) (QC): 88 4 Steps (QC): 88 12 Steps (QC): 88 Balance Picking up an Object (QC): 88 ADL-Treatment Eating (QC): 6 Oral Hygiene (QC): 6 (Pt completed independently seated at sink.) Shower/Bathe Self (QC): 4 (SBA, pt able to wash/dry all parts seated on SC.) Upper Body Dressing (QC): 7 Lower Body Dressing (QC): 7 On/Off Footwear (QC): 4 (SBA. Pt required moderate cues to doff gripper socks, min verbal cues to don.) Toileting Hygiene (QC): 7 Toilet Transfer (QC): 2 (Max A, pt had poor carry over of stand pivot transfer between w/c and toilet. Max verbal cues with transfer.) Assessment/Plan Assessment and Plan Assess & Plan/Chief Complaint Assessment: Catastrophic CVA with left sided weakness Smoker COPD HTN Gout Neuropathy CRI Alcoholism Depression Anxiety Plan: IRF protocol Pain meds Baclofen Home meds Ativan for etoh withdrawal symptoms 09/12/20: Dysphagia screening Monitor for return of function left weakness 09/13/20: Left leg function a bit today Shower today Monitor closely 09/14/20: BM regimen Turn Q 2hours IRF protocol 09/15/20: Monitor BP Fall risk Monitor dysphagia and aspiration risk 09/16/20: Nicotine patch Monitor aspiration 09/17/20: Left arm improving dramatically No pain reported Improved status 09/18/20: Improved status Loop recorder DC Tely 09/19/20: Monitor closely Loop recorder site is less tender now Fall risk incontinence care 09/20/20: Incontinence care Monitor bowels Therapy to intensify 09/21/20: Monitor incontinence 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 09/22/20: PT OT ST Incontinence 09/23/20: Monitor incontinence Monitor dreams may need to DC Remeron 09/24/20: Monitor incontinence Urinal spilling will need close monitoring 09/25/20: Right knee eval by Dr Huang team Check xrays 09/26/20: Monitor right knee pain Continue aggressive therapy 09/27/20: Incontinence care Right knee pain management 09/28/20: Bladder training Check labs in am 09/29/20: Labs stable IRF protocol Education for today 09/30/20: Incontinence management DC soon Right knee pain management 10/01/20: Allopurinol restarted at his request Right knee pain does not appear to be gout 10/02/20: Monitor incontinence 10/03/20: Right knee pain improved Incontinence management 10/04/20: BM regimen Incontinence 10/05/20: Check labs in am DC soon (1) Acute CVA (cerebrovascular accident) Status: Acute (2) Left-sided weakness Status: Acute (3) Gout (4) Alcoholism Status: Chronic (5) Ulcer of great toe Status: Acute (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
[2020-10-05] MEDS: ASPIRIN E.C. 325 MG (ECOTRIN) TABLET PO SCH (08:28)
[2020-10-05] MEDS: amLODIPine 5 MG (NORVASC) TAB PO SCH (08:28)
[2020-10-05] MEDS: ATENOLOL 25 MG (TENORMIN) TAB PO SCH (08:28)
[2020-10-05] MEDS: MAGNESIUM OXIDE (MAG-OX)400 MG TAB PO SCH ×2 (08:28→18:30)
[2020-10-05] MEDS: FOLIC ACID 1 MG TAB PO SCH (08:28)
[2020-10-05] MEDS: NICOTINE 14 MG (NICODERM) PATCH TD SCH (08:28)
[2020-10-05] MEDS: ALLOPURINOL 100 MG (ZYLOPRIM) TAB PO SCH ×2 (08:28→18:30)
[2020-10-05] MEDS: polyethylene glycoL POWDER 17 GM (MIRALAX) PACK PO SCH ×2 (08:28→21:57)
[2020-10-05] MEDS: SENNA W/DOCUSATE (SENOKOT S) TABLET PO SCH ×2 (08:28→21:57)
[2020-10-05 08:29] VITALS: BP 122/59
[2020-10-05] MEDS: NICOTINE PATCH REMOVAL TP SCH (08:29)
[2020-10-05] MEDS: DICLOFENAC 1% GEL 100 GM (VOLTAREN) TUBE TOP SCH ×4 (08:29→21:55)
[2020-10-05] MEDS: DOCUSATE SODIUM 10 MG/ML 10 ML UDC (COLACE) NG SCH ×2 (08:29→21:57)
[2020-10-05 18:00] VITALS: BP 115/68
--- NOTE | 2020-10-05 19:25 | NUR ---
Bedside report received from MUSA UMAÑA, assume care of pt
[2020-10-05] MEDS: LORazepam 0.5 MG (ATIVAN) TABLET PO SCH (21:53)
[2020-10-05] MEDS: MIRTAZAPINE 15 MG (REMERON) TAB PO SCH (21:53)
--- NOTE | 2020-10-05 21:53 | NUR ---
pt states had 3 stools tonight, refused Colace, Miralax & Senokot, remains up in the chair
[2020-10-06 05:33] LABS: BASOPHILS # (AUTO) 0.1 10^3/uL (0.0-0.1); BASOPHILS % (AUTO) 1 % (0-10); EOSINOPHILS # (AUTO) 0.5 10^3/uL (0.0-0.3); EOSINOPHILS % (AUTO) 6 % (0-10); HEMATOCRIT 45 % (40-54); LYMPHOCYTES # (AUTO) 2.3 10^3/uL (1.0-4.0); LYMPHOCYTES % (AUTO) 26 % (12-44); MEAN CORPUSCULAR HEMOGLOBIN 37 pg (25-34); MEAN CORPUSCULAR HGB CONC 33 g/dL (32-36); MEAN CORPUSCULAR VOLUME 111 fL (80-99); MEAN PLATELET VOLUME 10.3 fL (9.0-12.2); MONOCYTES # (AUTO) 0.8 10^3/uL (0.0-1.0); MONOCYTES % (AUTO) 9 % (0-12); NEUTROPHILS # (AUTO) 4.9 10^3/uL (1.8-7.8); NEUTROPHILS % (AUTO) 57 % (42-75); PLATELET COUNT 209 10^3/uL (130-400); WHITE BLOOD COUNT 8.5 10^3/uL (4.3-11.0)
[2020-10-06 05:37] LABS: ALBUMIN 3.7 GM/DL (3.2-4.5); CHLORIDE 106 MMOL/L (98-107); POTASSIUM 4.1 MMOL/L (3.6-5.0); SODIUM 139 MMOL/L (135-145)
[2020-10-06 05:39] LABS: CALCIUM 8.7 MG/DL (8.5-10.1)
[2020-10-06 05:40] LABS: GLUCOSE 103 MG/DL (70-105); TOTAL PROTEIN 6.4 GM/DL (6.4-8.2)
[2020-10-06 05:41] LABS: CARBON DIOXIDE 21 MMOL/L (21-32)
[2020-10-06 05:42] LABS: BILIRUBIN,TOTAL 0.6 MG/DL (0.1-1.0)
[2020-10-06 05:43] LABS: ALKALINE PHOSPHATASE 136 U/L (40-136); CREATININE SERUM 0.79 MG/DL (0.60-1.30); GFR ESTIMATED > 60
[2020-10-06 05:44] LABS: BUN/CREATININE RATIO 25
[2020-10-06 05:46] LABS: ALANINE AMINOTRANSFERASE 72 U/L (0-55)
[2020-10-06 05:50] VITALS: BP 117/57
[2020-10-06] MEDS: MULTIVIT W/MINERALS TAB (THERAGRAN M) PO SCH (06:12)
[2020-10-06] MEDS: THIAMINE 100 MG (VITAMIN B-1) TAB PO SCH (06:12)
[2020-10-06] MEDS: KCL 10 MEQ TAB (MICRO K) PO SCH (06:12)
[2020-10-06] MEDS: ASPIRIN E.C. 325 MG (ECOTRIN) TABLET PO SCH (07:57)
[2020-10-06] MEDS: MAGNESIUM OXIDE (MAG-OX)400 MG TAB PO SCH ×2 (07:58→18:49)
[2020-10-06] MEDS: ALLOPURINOL 100 MG (ZYLOPRIM) TAB PO SCH ×2 (07:58→18:49)
[2020-10-06] MEDS: NICOTINE PATCH REMOVAL TP SCH (07:58)
[2020-10-06] MEDS: ATENOLOL 25 MG (TENORMIN) TAB PO SCH (07:58)
[2020-10-06] MEDS: amLODIPine 5 MG (NORVASC) TAB PO SCH (07:58)
[2020-10-06] MEDS: FOLIC ACID 1 MG TAB PO SCH (07:58)
[2020-10-06] MEDS: NICOTINE 14 MG (NICODERM) PATCH TD SCH (07:58)
[2020-10-06] MEDS: DOCUSATE SODIUM 10 MG/ML 10 ML UDC (COLACE) NG SCH (07:58)
[2020-10-06] MEDS: polyethylene glycoL POWDER 17 GM (MIRALAX) PACK PO SCH (07:59)
[2020-10-06] MEDS: DICLOFENAC 1% GEL 100 GM (VOLTAREN) TUBE TOP SCH ×4 (08:00→22:06)
[2020-10-06] MEDS: SENNA W/DOCUSATE (SENOKOT S) TABLET PO SCH (08:00)
--- NOTE | 2020-10-06 08:22 | PM&R Progress Note ---
Subjective HPI/CC On Admission Date Seen by Provider: Oct 06, 2020 Time Seen by Provider: 08:30 Subjective/Events-last exam 10/06/20: No fecal incontinence No urinary incontinence Using the urinal pretty well Ramp will be built and then he will discharge 10/05/20: Walked well today DC soon Monitored closely 10/04/20: BM 10/03 Doing well Wants to go home 10/03/20: No major issues Incontinency of bladder continues BM++ 10/02/20: Restart Allopurinol but I did tell him we stopped that 02/2019 and he states he has a bottle he takes in the drawer RN reviewed bottles in his drawer and he does not take that anymore Regardless will maintain the Allopurinol BID 10/01/20: Knee pain continues and he talks about it constantly Allopurinol will be restarted at 100mg twice a day but he has been off that of February of 2019 per my office charts and there has not been any refills, he thought it was gout and it is definitely not gout. He received a steroid injection in the knee by orthopedics and currently it does not appear to be gout DC plan for next week 09/30/20: Becoming more and more independent Pt is incontinent was very helpful yesterday during family training 09/29/20: DC planning Family training today Incontinence management Doing pretty well Bowels are moving Overall feels like he is making progress 09/28/20: BM today Toileting improved Bladder training every 2 hours going well 09/27/20: Incontinence discussed Right knee pain reported is improved Voltaren gel maintained 09/26/20: Right knee about the same since knee infection No falls Incontinence continues Monitoring closely 09/25/20: Pt complaining of right knee pain Denies any other significant issues Will check X-ray and consult orthopod for possible injections since he is flaccid on the left side and really needs the right knee to ambulate Will monitor pt closely 09/24/20: Bowels moved yesterday Reports that he just spills his urinal in bed but he is definitely incontinent Voltaren Gel will be given Participating in therapy 09/23/20: Pt had a crazy dream last night Remeron may cause that so will monitor that closely and may need to discontinue Bowels moved yesterday Incontinence is being managed by using the urinal 09/22/20: Loop recorder maintained Incontinence continues Bowels are moving well Swallowing pretty well I witnessed him actually walking with one-assist No falls 09/21/20: Patient improved No pain reported Incontinence will be managed with bladder routine 09/20/20: Saw patient in midst of bed linen change due to incontinence bladder Working with therapy No pain reported except shoulder 09/19/20: Patient a bit down in spirits today No pain No ETOH withdrawal No falls Incontinence noted 09/18/20: Improved status Gets frustrated easily Has bad days and good days Loop recorder placed so will DC Tely Incontinence noted 09/17/20: Bowels moved yesterday Incontinent a bit with bowel and bladder so will try to get on bladder emptying schedule a long with bowel regimen Was able to move and lift up his left arm with a lot of effort but was remarkable Pt improved and much better spirits today 09/16/20: Telemetry needs to be maintained until loop recorder is placed Will reach out to Dr. Walker tomorrow Incontinence is an issue so will try to work with him in the urinal positional hernadez to help him In significant denial Behavioral health consult Bowels moved yesterday Catastrophic stroke and his coping mechanism is no longer available with smoking and drinking so that is causing a significant issue 09/15/20: Bowels finally moved today Lifting left leg a bit Tolerating food intake without much dysphasia Psych evaluation will be provided because of anxiety and depression and situational grief reaction due to catastrophic stroke Pt overall is very depressed Labs are okay 09/14/20: Turn Q 2hours Refusing stool softners BM 09/10/20 Colace and Senna taken today 09/13/20: Advancing diet Moved left leg a bit today No function in left arm though Shower today and shave Crushing his meds with pudding since he did choke on thin liquids Advancing diet as tolerated Bowels moved two days ago Pt appears to be very chronically ill Conferred with RN Reviewed therapy notes Checked meds and labs Review of Systems General: Fatigue, Malaise Neurological: Weakness, Incoordination Objective Exam Vital Signs Vital Signs Date Time Temp Pulse Resp B/P (MAP) Pulse Ox O2 Delivery O2 Flow Rate FiO2 10/06/20 20:30 Room Air 10/06/20 18:51 36.8 75 16 123/58 (79) 94 Capillary Refill : Less Than 3 Seconds General Appearance: No Apparent Distress, WD/WN, Anxious, Chronically ill HEENT: PERRL/EOMI, Normal ENT Inspection, Pharynx Normal Neck: Full Range of Motion, Normal Inspection, Non Tender, Supple, Carotid Bruit Respiratory: Chest Non Tender, Lungs Clear, Normal Breath Sounds, No Accessory Muscle Use, No Respiratory Distress Cardiovascular: Regular Rate, Rhythm, No Edema, No Gallop, No JVD, No Murmur, Normal Peripheral Pulses Gastrointestinal: Normal Bowel Sounds, No Organomegaly, No Pulsatile Mass, Non Tender, Soft Back: Normal Inspection, No CVA Tenderness, No Vertebral Tenderness Extremity: Normal Capillary Refill, Normal Inspection, Normal Range of Motion (except left side weakness), Non Tender, No Calf Tenderness, No Pedal Edema Neurologic/Psychiatric: Alert, Oriented x3, Normal 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 FIM Transfers Therapy Code Descriptions/Definitions Functional [place] Measure: 0=Not Assessed/NA 4=Minimal Assistance 1=Total Assistance 5=Supervision or Setup 2=Maximal Assistance 6=Modified [place] 3=Moderate Assistance 7=Complete IndependenceSCALE: Activities may be completed with or without assistive devices. 2-Lxkbsjfjhk-zfsavrh completes the activity by him/herself with no assistance from a helper. 5-Set-up or Clean-up Assistance-helper sets up or cleans up; patient completes activity. [place] assists only prior to or following the activity. 4-Supervision or Touching Assistance-helper provides verbal cues and/or touching/steadying and/or contact guard assistance as patient completes activity. Assistance may be provided throughout the activity or intermittently. 3-Partial/Moderate Assistance-helper does LESS THAN HALF the effort. [place] lifts, holds or supports trunk or limbs, but provides less than half the effort. 2-Substantial/Maximal Assistance-helper does MORE THAN HALF the effort. [place] lifts or holds trunk or limbs and provides more than half the effort. 9-Sflmqajom-xgtjlf does ALL the effort. Patient does none of the effort to complete the activity. Or, the assistance of 2 or more helpers is required for the patient to complete the activity. If activity was not attempted, code reason: 7-Patient Refused. 9-Not Applicable-not attempted and the patient did not perform the activity be fore the current illness, exacerbation or injury. 10-Not Attempted due to Environmental Limitations-(lack of equipment, weather restraints, etc.). 88-Not Attempted due to Medical Conditions or Safety Concerns. Roll Left to Right (QC): 6 Sit to Lying (QC): 6 Sit to Stand (QC): 5 Chair/Yca-qk-Yozox Xfer(QC): 3 Car Transfer (QC): 3 Gait Training Does the Patient Walk?: Yes Distance: 20ft x4 Walk 10 feet (QC): 4 Walk 50 ft with 2 Turns(QC): 4 Walk 150 ft (QC): 3 Walking 10ft/uneven surface-QC: 88 Gait Persons Needed: 1 Gait Assistive Device: Parallel Bars Wheelchair Training Does the Pt Use a Wheelchair?: Yes Distance: 150' Wheel 50 ft with 2 turns (QC): 4 Wheel 150 ft (QC): 4 Type of Wheelchair: Manual Stair Training 1 Step (curb) (QC): 88 4 Steps (QC): 88 12 Steps (QC): 88 Balance Picking up an Object (QC): 88 ADL-Treatment Eating (QC): 6 Oral Hygiene (QC): 6 (Pt completed independently seated at sink.) Shower/Bathe Self (QC): 4 (SBA, pt able to wash/dry all parts seated on SC.) Upper Body Dressing (QC): 7 Lower Body Dressing (QC): 7 On/Off Footwear (QC): 4 (SBA. Pt required moderate cues to doff gripper socks, min verbal cues to don.) Toileting Hygiene (QC): 7 Toilet Transfer (QC): 2 (Max A, pt had poor carry over of stand pivot transfer between w/c and toilet. Max verbal cues with transfer.) Assessment/Plan Assessment and Plan Assess & Plan/Chief Complaint Assessment: Catastrophic CVA with left sided weakness Smoker COPD HTN Gout Neuropathy CRI Alcoholism Depression Anxiety Plan: IRF protocol Pain meds Baclofen Home meds Ativan for etoh withdrawal symptoms 09/12/20: Dysphagia screening Monitor for return of function left weakness 09/13/20: Left leg function a bit today Shower today Monitor closely 09/14/20: BM regimen Turn Q 2hours IRF protocol 09/15/20: Monitor BP Fall risk Monitor dysphagia and aspiration risk 09/16/20: Nicotine patch Monitor aspiration 09/17/20: Left arm improving dramatically No pain reported Improved status 09/18/20: Improved status Loop recorder DC Tely 09/19/20: Monitor closely Loop recorder site is less tender now Fall risk incontinence care 09/20/20: Incontinence care Monitor bowels Therapy to intensify 09/21/20: Monitor incontinence 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 09/22/20: PT OT ST Incontinence 09/23/20: Monitor incontinence Monitor dreams may need to DC Remeron 09/24/20: Monitor incontinence Urinal spilling will need close monitoring 09/25/20: Right knee eval by Dr Huang team Check xrays 09/26/20: Monitor right knee pain Continue aggressive therapy 09/27/20: Incontinence care Right knee pain management 09/28/20: Bladder training Check labs in am 09/29/20: Labs stable IRF protocol Education for today 09/30/20: Incontinence management DC soon Right knee pain management 10/01/20: Allopurinol restarted at his request Right knee pain does not appear to be gout 10/02/20: Monitor incontinence 10/03/20: Right knee pain improved Incontinence management 10/04/20: BM regimen Incontinence 10/05/20: Check labs in am DC soon 10/06/20: Incontinence improved Monitor BP Hold laxatives (1) Acute CVA (cerebrovascular accident) Status: Acute (2) Left-sided weakness Status: Acute (3) Gout (4) Alcoholism Status: Chronic (5) Ulcer of great toe Status: Acute (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
[2020-10-06] MEDS ORDERED: DOCUSATE SODIUM 10 MG/ML 10 ML UDC (COLACE) NG PRN (08:38)
--- NOTE | 2020-10-06 08:43 | Cardiology Progress Note ---
Subjective Date Seen by Provider: Oct 06, 2020 Time Seen by Provider: 08:43 Subjective/Events-last exam Patient is with PT. No new complaints. Denies any chest pain or palpitations. Review of Systems General: No Chills, No Night Sweats, No Fatigue, No Malaise, No Appetite, No Other HEENT: No Head Aches, No Visual Changes, No Eye Pain, No Ear Pain, No Dysphasia, No Sinus Congestion, No Post Nasal Drip, No Sore Throat, No Other Pulmonary: No Dyspnea, No Cough, No Pleuritic Chest Pain, No Other Cardiovascular: No: Chest Pain, Palpitations, Orthopnea, Paroxysmal Noc. Dyspnea, Edema, Lt Headedness, Other Objective-Cardiology Exam Last Set of Vital Signs Vital Signs 10/06/20 10/06/20 05:50 07:00 Temp 36.4 Pulse 69 Resp 20 B/P (MAP) 117/57 (77) Pulse Ox 95 O2 Delivery Room Air Capillary Refill : Less Than 3 Seconds I&O Intake and Output 10/06/20 00:00 Intake Total 1680 ml Output Total 1300 ml Balance 380 ml Intake Oral 1680 ml Output Urine Total 1300 ml # Voids 1 # Bowel Movements 2 General: Alert, Oriented X3, Cooperative HEENT: Atraumatic, PERRLA Neck: Supple, No JVD, No Thyromegaly Lungs: Clear to Auscultation, Normal Air Movement Heart: Regular Rate, Normal S1, Normal S2, No Murmurs Abdomen: Normal Bowel Sounds, Soft, No Tenderness, No Hepatosplenomegaly, No Masses Extremities: No Clubbing, No Cyanosis, No Edema, Normal Pulses, No Tenderness/Swelling Skin: No Rashes, No Breakdown, No Significant Lesion Neuro: Normal Speech, Other (still having left-sided weakness) Psych/Mental Status: Mental Status NL, Mood NL Results Lab Laboratory Tests 10/06/20 05:09 A/P-Cardiology Admission Diagnosis CVA HTN HLP Tobaccoism Assessment/Plan Cryptogenic CVA, recieved tPA, still having left sided weakness. 2D echo done 09/09/2020 revealed grade 1 diastolic dysfunction, EF 50-55%, PA 40-45%, CTA Head and neck showed no KASANDRA, status post loop monitor implant, doing well. Continue to monitor Hypertension, controlled, continue to monitor Hyperlipidemia, maintained on statin Tobaccoism, educated on smoking cessation ETOH use, discussed limiting alcohol intake Patient was seen and evaluated with Nina, examination performed, management plan was discussed, agree with the current scribed note, I made few changes to the note using Italic font Patient was seen at bedside sitting down comfortably, no new complaint Loop recorder implanted. Continue to monitor rhythm Clinical Quality Measures DVT/VTE Risk/Contraindication: Risk Factor Score Per Nursin RFS Level Per Nursing on Admit: 4+=Very High NINA FERRARA Oct 06, 2020 08:43 ALEXIA FAIRCHILD MD Oct 06, 2020 12:18
--- NOTE | 2020-10-06 09:20 | Occupational Ther Daily Note ---
OT Current Status-Daily Note Subjective Pt agreeable to OT tx, pt requests sponge bath today, stating he would prefer to shower tomorrow. Mental Status/Objective Patient Orientation: Person, Place, Time, Situation ADL-Treatment Therapy Code Descriptions/Definitions Functional [place] Measure: 0=Not Assessed/NA 4=Minimal Assistance 1=Total Assistance 5=Supervision or Setup 2=Maximal Assistance 6=Modified [place] 3=Moderate Assistance 7=Complete IndependenceSCALE: Activities may be completed with or without assistive devices. 7-Vmxnwoepwk-fymzzon completes the activity by him/herself with no assistance from a helper. 5-Set-up or Clean-up Assistance-helper sets up or cleans up; patient completes activity. [place] assists only prior to or following the activity. 4-Supervision or Touching Assistance-helper provides verbal cues and/or touching/steadying and/or contact guard assistance as patient completes activity. Assistance may be provided throughout the activity or intermittently. 3-Partial/Moderate Assistance-helper does LESS THAN HALF the effort. Rose lifts, holds or supports trunk or limbs, but provides less than half the effort. 2-Substantial/Maximal Assistance-helper does MORE THAN HALF the effort. [place] lifts or holds trunk or limbs and provides more than half the effort. 3-Sbibugdct-hvnscu does ALL the effort. Patient does none of the effort to complete the activity. Or, the assistance of 2 or more helpers is required for the patient to complete the activity. If activity was not attempted, code reason: 7-Patient Refused. 9-Not Applicable-not attempted and the patient did not perform the activity before the current illness, exacerbation or injury. 10-Not Attempted due to Environmental Limitations-(lack of equipment, weather restraints, etc.). 88-Not Attempted due to Medical Conditions or Safety Concerns. Oral Hygiene (QC): 6 (IND seated at recliner.) Shower/Bathe Self (QC): 4 (CGA in stand as pt performed pericare and washed buttocks. Pt able to wash all other parts in sitting with min cues for sequencing.) Upper Body Dressing (QC): 4 (SBA, pt able to doff shirt without cues, SBA for donning in order to recall hemiplegic dressing techniques.) Lower Body Dressing (QC): 3 (Min A, pt able to doff pants standing at [facility] with min A, pt attempted to balance on 1 foot as he stepped out of the pants, requiring cue to sit down before taking pants off of feet. Pt then able to thread BLEs and manage up, min A with L side of pants at waist.) On/Off Footwear: 4 (SBA, min verbal cues to recall sequencing of task using dycem and figure 4 method.) Toileting Hygiene (QC): 3 (Pt stood at [facility], managed pants down with CGA. Pt able to complete hygiene standing at [facility] with min A balance. Pt complete pant hike, min A with L side at hip level due to band twisting.) Toilet Transfer (QC): 4 (CGA on/off toilet) Other Treatment [facility] medicine provided by the nurse, he debated about showering vs sponge bath today. Pt required increased time with making decision due to taking pills one at a time and unable to make a decision while taking pills. Pt decided to take a sponge bath today and shower tomorrow. OT gathered ADL supplies for pt. Pt completed sponge bath and dressing at [facility]. OT talking with pt throughout task providing distraction, pt then required increased time to problem solve and sequence hemiplegic dressing techniques from previous sessions. CGA in stand at [facility] as pt managed clothing. Pt then indicates he does not like the BSC over the toilet. OT removed BSC, and pt ambulated into the restroom using [facility] with CGA, then transferred onto toilet. Pt completed toileting, then stood at [facility] with CGA as pt managed hygiene and pants. Pt returned to [facility] using [facility] with CGA. OT provided pt with fingernail file, educating him on using dycem in order to hold file. Pt demo's ability to file nails independently. Post OT tx, pt seated in recliner, call light in reach and all needs met. Education OT Patient Education: Correct positioning, Energy conservation, Exercise program, Modified ADL techniques, Progress toward Goal/Update tx plan, Purpose of tx/functional activities, Safety issues, Transfer techniques Teaching Recipient: Patient Teaching Methods: Discussion Response to Teaching: Verbalize Understanding OT Machinery Dismantler Goals Machinery Dismantler Goals Time Frame: Oct 03, 2020 Eating (QC): 6 Oral Hygiene (QC): 6 Toileting Hygiene (QC): 4 Shower/Bathe Self (QC): 4 Upper Body Dressing (QC): 6 Lower Body Dressing (QC): 4 On/Off Footwear (QC): 4 Additional Goals: 1-Demonstrate ADL Tasks, 2-Verbalize Understanding, 3- ImproveStrength/Francesca 1=Demonstrate adherence to instructed precautions during ADL tasks. 2=Patient will verbalize/demonstrate understanding of assistive devic es/modifications for ADL. 3=Patient will improve strength/tolerance for activity to enable patient to perform ADL's. OT Education/Plan Problem List/Assessment Assessment: Decreased Activ Tolerance, Decreased UE Strength, Impaired Funct Balance, Impaired I ADL's, Impaired Self-Care Skills, Restricted Funct UE ROM Discharge Recommendations Plan/Recommendations: Continue POC Treatment Plan/Plan of Care Patient would benefit from OT for education, treatment and training to promote independence in ADL's, mobility, safety and/or upper extremity function for ADL's. Plan of Care: ADL Retraining, Functional Mobility, Group Exercise/Act as Ind, U E Funct Exercise/Act, UE Neuromus Re-Ed/Coord Treatment Duration: Oct 03, 2020 Frequency: At least 5 of 7 days/Wk (IRF) Estimated Hrs Per Day: 1.5 hours per day Agreement: Yes Rehab Potential: Fair Time/GCodes Start Time: 08:00 Stop Time: 09:15 Total Time Billed (hr/min): 75 Billed Treatment Time 1, ADL 5 WILFREDO CORLEY OT Oct 06, 2020 09:20
--- NOTE | 2020-10-06 10:53 | Physical Therapy Daily Note ---
PT Daily Note-Current Subjective Patient in recliner pre tx, agrees to PT, has no complaints of pain. Appearance Patient in recliner post tx with nurse call, phone, tray, all needs met. Mental Status Patient Orientation: Person, Place, Situation, Normal For Age Transfers SCALE: Activities may be completed with or without assistive devices. 5-Owlnurazdm-jybiamk completes the activity by him/herself with no assistance from a helper. 5-Set-up or Clean-up Assistance-helper sets up or cleans up; patient completes activity. [place] assists only prior to or following the activity. 4-Supervision or Touching Assistance-helper provides verbal cues and/or touching/steadying and/or contact guard assistance as patient completes activity. Assistance may be provided throughout the activity or intermittently. 3-Partial/Moderate Assistance-helper does LESS THAN HALF the effort. [place] lifts, holds or supports trunk or limbs, but provides less than half the effort. 2-Substantial/Maximal Assistance-helper does MORE THAN HALF the effort. [place] lifts or holds trunk or limbs and provides more than half the effort. 9-Vfobvdher-owzfhj does ALL the effort. Patient does none of the effort to complete the activity. Or, the assistance of 2 or more helpers is required for the patient to complete the activity. If activity was not attempted, code reason: 7-Patient Refused. 9-Not Applicable-not attempted and the patient did not perform the activity before the current illness, exacerbation or injury. 10-Not Attempted due to Environmental Limitations-(lack of equipment, weather restraints, etc.). 88-Not Attempted due to Medical Conditions or Safety Concerns. Sit to Stand (QC): 4 Chair/Kmq-mr-Jrjiz Xfer(QC): 3 Occasional steadying assist during transfers Weight Bearing Full Weight Bearing Full Weight Bearing Gait Training Distance: 75'x4 Walk 10 feet (QC): 4 Walk 50 ft with 2 Turns(QC): 4 Gait Assistive Device: Walker Steffen occasional steadying assist, better weight shifting and step through Exercises LAQ alternating for 5 min NuStep Minutes: 15 NuStep Workload: 4 Treatments transfers, ambulation, LE strengthening Assessment Current Status: Fair Progress improved balance PT Short Term Goals Short Term Goals Time Frame: Sep 18, 2020 Roll Left & Right: 6 Sit to lyin Lying to sitting on side of be: 3 Sit to stand: 3 Chair/vff-xc-psyhf transfer: 3 Toilet transfer: 3 Walk 10 feet: 3 Wheel 50ft w/2 turns: 4 Wheel 150 feet: 4 PT Longterm Goals Longterm Goals PT Illuminating Engineer Goals Time Frame: Oct 02, 2020 Roll Left & Right (QC): 6 Sit to Lying (QC): 6 Lying-Sitting on Side/Bed(QC): 6 Sit to Stand (QC): 4 Chair/Xew-er-Stbgi Xfer(QC): 4 Toilet Transfer (QC): 4 Car Transfer (QC): 4 Does the Patient Walk: No and Walking Goal IS indicated Walk 10 feet (QC): 4 Walk 50ft with 2 Turns (QC): 4 Walk 150 ft (QC): 4 Walking 10ft on Uneven Surface: 4 1 Step (curb) (QC): 3 4 Steps (QC): 3 12 Steps (QC): 88 Picking up an Object (QC): 4 Wheel 50 feet with 2 turns (QC: 6 Wheel 150 feet: 6 PT Plan Problem List Problem List: Activity Tolerance, Functional Strength, Safety, Balance, Gait, Transfer, Bed Mobility, ROM Treatment/Plan Treatment Plan: Continue Plan of Care Treatment Plan: Bed Mobility, Education, Functional Activity Francesca, Functional Strength, Group Therapy, Gait, Safety, Therapeutic Exercise, Transfers Treatment Duration: Sep 25, 2020 Frequency: At least 5 of 7 days/Wk (IRF) Estimated Hrs Per Day: 1.5 hours per day Patient and/or Family Agrees t: Yes Safety Risks/Education Patient Education: Gait Training, Transfer Techniques, Correct Positioning, Safety Issues Teaching Recipient: Patient Teaching Methods: Demonstration, Discussion Response to Teaching: Reinforcement Needed Time/GCodes Time In: 1000 Time Out: 1100 Total Billed Treatment Time: 60 Total Billed Treatment 1 visit EX 20' FA 40' KRISTINE HAWK PT Oct 06, 2020 10:53
--- NOTE | 2020-10-06 11:08 | NUR ---
CM/SS CONCURRENT DOCUMENTATION Completed FMLA paperwork on patient's behalf and returned to [employer], copy to spouse Steffany. DME: The ramp has been delivered to patient's home, spouse Steffany is unpacking. Will need wheelchair and sherrie-walker, shower/bath AE per therapy recommendations. HHC: RN PT OT to be coordinated with agency in network with patient's insurance.
--- NOTE | 2020-10-06 12:50 | Speech Therapy Daily Note ---
Speech Daily Progress Note Subjective Date Seen by Provider: Oct 06, 2020 Time Seen by Provider: 00:30 Patient was sitting in his recliner playing on his tablet when I entered his room. Objective Patient completed a series of pictures "what's missing?" with 90% word finding given 10% verbal and/or visual cuing. Assessment Assessment Current Status: Good Progress Treatment Plan Continue Plan of Care Speech Short Term Goals Short Term Goals Short Term Goals 1) The patient will complete memory tasks related to her daily needs at 80% or greater with minimal cues. 2) The patient will complete safety awareness tasks related to her daily needs at 80% or greater with minimal cues. 3) The patient will complete problem solving tasks related to her daily needs at 80% or greater with minimal cues. 4) The patient will complete OME for improving speech intelligibility. Speech Fpc Goals Dishroom Attendant Goals Patient will improve cognitive and speech abilities in order to effectively meet his daily needs with minimal assist. Speech-Plan Patient/Family Goals Patient/Family Goals: Patient plans on returning to his home where he lives with his . Treatment Plan Speech Therapy Treatment Plan: Continue Plan of Care Treatment Duration: Oct 10, 2020 Frequency: 4 times per week (Patient will receive skilled ST 4-5x per week) Estimated Hrs Per Day: .5 hour per day Rehab Potential: Fair Barriers to Learning: Patient's recent CVA, other recorded medical issues Pt/Family Agrees to Plan: Yes Safety Risks/Education Teaching Recipient: Patient Teaching Methods: Demonstration, Discussion Response to Teaching: Verbalize Understanding, Return Demonstration Education Topics Provided: Continued safety within his room, communication of wants/needs Time Speech Therapy Time In: 11:30 Speech Therapy Time Out: 12:00 Total Billed Time: 30 Billed Treatment Time 1AN[address] Oct 06, 2020 12:50
--- NOTE | 2020-10-06 14:20 | Physical Therapy Daily Note ---
PT Daily Note-Current Subjective Patient in recliner pre tx, agrees to PT, has no complaints of pain. Appearance Patient in recliner post tx with nurse call, phone, tray, all needs met. Mental Status Patient Orientation: Person, Place, Situation, Normal For Age Transfers SCALE: Activities may be completed with or without assistive devices. 3-Trtdfjoybx-glaybkf completes the activity by him/herself with no assistance from a helper. 5-Set-up or Clean-up Assistance-helper sets up or cleans up; patient completes activity. [place] assists only prior to or following the activity. 4-Supervision or Touching Assistance-helper provides verbal cues and/or touching/steadying and/or contact guard assistance as patient completes activity. Assistance may be provided throughout the activity or intermittently. 3-Partial/Moderate Assistance-helper does LESS THAN HALF the effort. [place] lifts, holds or supports trunk or limbs, but provides less than half the effort. 2-Substantial/Maximal Assistance-helper does MORE THAN HALF the effort. [place] lifts or holds trunk or limbs and provides more than half the effort. 2-Cgmvcfqxu-lzyoko does ALL the effort. Patient does none of the effort to complete the activity. Or, the assistance of 2 or more helpers is required for the patient to complete the activity. If activity was not attempted, code reason: 7-Patient Refused. 9-Not Applicable-not attempted and the patient did not perform the activity before the current illness, exacerbation or injury. 10-Not Attempted due to Environmental Limitations-(lack of equipment, weather restraints, etc.). 88-Not Attempted due to Medical Conditions or Safety Concerns. Sit to Stand (QC): 4 Chair/Gyh-ik-Pmuyz Xfer(QC): 4 CGA/steadying assist Weight Bearing Full Weight Bearing Full Weight Bearing Gait Training Distance: 75'x2 Walk 10 feet (QC): 4 Walk 50 ft with 2 Turns(QC): 4 Gait Persons Needed: 1 Gait Assistive Device: Walker Steffen slow ambulation, steadying assist, no LOB, better step through and foot clearance Treatments ambulation Assessment Current Status: Fair Progress improving ambulation and standing balance PT Short Term Goals Short Term Goals Time Frame: Sep 18, 2020 Roll Left & Right: 6 Sit to lyin Lying to sitting on side of be: 3 Sit to stand: 3 Chair/alb-cm-twvwm transfer: 3 Toilet transfer: 3 Walk 10 feet: 3 Wheel 50ft w/2 turns: 4 Wheel 150 feet: 4 PT Powder Worker Goals Powder Worker Goals PT Longterm Goals Time Frame: Oct 02, 2020 Roll Left & Right (QC): 6 Sit to Lying (QC): 6 Lying-Sitting on Side/Bed(QC): 6 Sit to Stand (QC): 4 Chair/Tsl-ia-Lfcse Xfer(QC): 4 Toilet Transfer (QC): 4 Car Transfer (QC): 4 Does the Patient Walk: No and Walking Goal IS indicated Walk 10 feet (QC): 4 Walk 50ft with 2 Turns (QC): 4 Walk 150 ft (QC): 4 Walking 10ft on Uneven Surface: 4 1 Step (curb) (QC): 3 4 Steps (QC): 3 12 Steps (QC): 88 Picking up an Object (QC): 4 Wheel 50 feet with 2 turns (QC: 6 Wheel 150 feet: 6 PT Plan Problem List Problem List: Activity Tolerance, Functional Strength, Safety, Balance, Gait, Transfer, Bed Mobility, ROM Treatment/Plan Treatment Plan: Continue Plan of Care Treatment Plan: Bed Mobility, Education, Functional Activity Francesca, Functional Strength, Group Therapy, Gait, Safety, Therapeutic Exercise, Transfers Treatment Duration: Sep 25, 2020 Frequency: At least 5 of 7 days/Wk (IRF) Estimated Hrs Per Day: 1.5 hours per day Patient and/or Family Agrees t: Yes Safety Risks/Education Patient Education: Gait Training, Transfer Techniques, Correct Positioning, Safety Issues Teaching Recipient: Patient Teaching Methods: Demonstration, Discussion Response to Teaching: Reinforcement Needed Time/GCodes Time In: 1315 Time Out: 1330 Total Billed Treatment Time: 15 Total Billed Treatment 1 visit GT 15' KRISTINE HAWK PT Oct 06, 2020 14:20
[2020-10-06 18:51] VITALS: BP 123/58
[2020-10-06] MEDS: MIRTAZAPINE 15 MG (REMERON) TAB PO SCH (22:04)
[2020-10-06] MEDS: MELATONIN 3 MG TABLET PO PRN (22:04)
[2020-10-06] MEDS: LORazepam 0.5 MG (ATIVAN) TABLET PO SCH (22:05)
[2020-10-07] MEDS: THIAMINE 100 MG (VITAMIN B-1) TAB PO SCH (06:12)
[2020-10-07] MEDS: KCL 10 MEQ TAB (MICRO K) PO SCH (06:12)
[2020-10-07] MEDS: MULTIVIT W/MINERALS TAB (THERAGRAN M) PO SCH (06:12)
[2020-10-07 06:39] VITALS: BP 130/73
--- NOTE | 2020-10-07 08:27 | Occupational Ther Daily Note ---
OT Current Status-Daily Note Subjective Pt states his ramp was delivered yesterday, and he is ready to discharge home. Mental Status/Objective Patient Orientation: Person, Place, Time, Situation ADL-Treatment Therapy Code Descriptions/Definitions Functional [place] Measure: 0=Not Assessed/NA 4=Minimal Assistance 1=Total Assistance 5=Supervision or Setup 2=Maximal Assistance 6=Modified [place] 3=Moderate Assistance 7=Complete IndependenceSCALE: Activities may be completed with or without assistive devices. 9-Gxrxqdnvlj-gbjbwec completes the activity by him/herself with no assistance from a helper. 5-Set-up or Clean-up Assistance-helper sets up or cleans up; patient completes activity. [place] assists only prior to or following the activity. 4-Supervision or Touching Assistance-helper provides verbal cues and/or touching /steadying and/or contact guard assistance as patient completes activity. Assistance may be provided throughout the activity or intermittently. 3-Partial/Moderate Assistance-helper does LESS THAN HALF the effort. [place] lifts, holds or supports trunk or limbs, but provides less than half the effort. 2-Substantial/Maximal Assistance-helper does MORE THAN HALF the effort. [place] lifts or holds trunk or limbs and provides more than half the effort. 0-Liacitucz-gjzhek does ALL the effort. Patient does none of the effort to complete the activity. Or, the assistance of 2 or more helpers is required for the patient to complete the activity. If activity was not attempted, code reason: 7-Patient Refused. 9-Not Applicable-not attempted and the patient did not perform the activity before the current illness, exacerbation or injury. 10-Not Attempted due to Environmental Limitations-(lack of equipment, weather restraints, etc.). 88-Not Attempted due to Medical Conditions or Safety Concerns. Eating (QC): 6 (Pt indicates he is able to use utensils, cut food, bring food to mouth, chew/swallow without difficulty.) Oral Hygiene (QC): 6 (IND seated at sink.) Shower/Bathe Self (QC): 4 (CGA in stand at [facility] as pt washed/dried buttocks. Pt able to wash/dry all otherparst seated on SC) Upper Body Dressing (QC): 4 (SBA, pt able to don/doff test puller shirt.) Lower Body Dressing (QC): 4 (CGA in stand at hemiwalker, pt able to thread legs into pants, and manage pants up/down.) On/Off Footwear: 4 (SBA, pt able to doff/emiliano gripper socks using dycem and figure 4 method.) Toileting Hygiene (QC): 4 (CGA in standing, pt able to manage pants and perform hygiene. ) Toilet Transfer (QC): 4 (CGA on/off toilet.) Other Treatment Pt seated in recliner, agreeable to OT tx with focus on ADLs. Pt transferred sit to stand with CGA, then ambulated into restroom and onto toilet using hemiwalker, CGA. Pt completed toileting, then used hemiwalker to transfer to shower chair. Pt completed showering and dressing at [place], then transferred to w/c to complete oral care at [facility]. Pt returned to recliner, CGA using hemiwalker. Post OT tx, pt seated in recliner, call light in reach and all needs met. Education OT Patient Education: Correct positioning, Energy conservation, Modified ADL techniques, Progress toward Goal/Update tx plan, Purpose of tx/functional activities Teaching Recipient: Patient Teaching Methods: Discussion Response to Teaching: Verbalize Understanding OT Intermediate Goals Director Field Services Goals Time Frame: Oct 03, 2020 Eating (QC): 6 Oral Hygiene (QC): 6 Toileting Hygiene (QC): 4 Shower/Bathe Self (QC): 4 Upper Body Dressing (QC): 6 Lower Body Dressing (QC): 4 On/Off Footwear (QC): 4 Additional Goals: 1-Demonstrate ADL Tasks, 2-Verbalize Understanding, 3- ImproveStrength/Francesca 1=Demonstrate adherence to instructed precautions during ADL tasks. 2=Patient will verbalize/demonstrate understanding of assistive devices/modif ications for ADL. 3=Patient will improve strength/tolerance for activity to enable patient to perform ADL's. OT Education/Plan Problem List/Assessment Assessment: Decreased Activ Tolerance, Decreased UE Strength, Impaired Funct Balance, Impaired I ADL's, Impaired Self-Care Skills Discharge Recommendations Plan/Recommendations: Continue POC Treatment Plan/Plan of Care Patient would benefit from OT for education, treatment and training to promote independence in ADL's, mobility, safety and/or upper extremity function for ADL's. Plan of Care: ADL Retraining, Functional Mobility, Group Exercise/Act as Ind, UE Funct Exercise/Act, UE Neuromus Re-Ed/Coord Treatment Duration: Oct 03, 2020 Frequency: At least 5 of 7 days/Wk (IRF) Estimated Hrs Per Day: 1.5 hours per day Agreement: Yes Rehab Potential: Fair Time/GCodes Start Time: 08:00 Stop Time: 09:15 Total Time Billed (hr/min): 75 Billed Treatment Time 1, ADL 5 WILFREDO CORLEY OT Oct 07, 2020 08:27
--- NOTE | 2020-10-07 08:52 | PM&R Progress Note ---
Subjective HPI/CC On Admission Date Seen by Provider: Oct 07, 2020 Time Seen by Provider: 08:30 Subjective/Events-last exam 10/07/20: Incontinence varies but seems like he is doing much better DC once the ramp is built Overall doing pretty well except the wound on his right toe is back opened up a gain so consulted Dr. Christie 10/06/20: No fecal incontinence No urinary incontinence Using the urinal pretty well Ramp will be built and then he will discharge 10/05/20: Walked well today DC soon Monitored closely 10/04/20: BM 10/03 Doing well Wants to go home 10/03/20: No major issues Incontinency of bladder continues BM++ 10/02/20: Restart Allopurinol but I did tell him we stopped that 02/2019 and he states he has a bottle he takes in the drawer RN reviewed bottles in his drawer and he does not take that anymore Regardless will maintain the Allopurinol BID 10/01/20: Knee pain continues and he talks about it constantly Allopurinol will be restarted at 100mg twice a day but he has been off that of February of 2019 per my office charts and there has not been any refills, he thought it was gout and it is definitely not gout. He received a steroid injection in the knee by orthopedics and currently it does not appear to be gout DC plan for next week 09/30/20: Becoming more and more independent Pt is incontinent was very helpful yesterday during family training 09/29/20: DC planning Family training today Incontinence management Doing pretty well Bowels are moving Overall feels like he is making progress 09/28/20: BM today Toileting improved Bladder training every 2 hours going well 09/27/20: Incontinence discussed Right knee pain reported is improved Voltaren gel maintained 09/26/20: Right knee about the same since knee infection No falls Incontinence continues Monitoring closely 09/25/20: Pt complaining of right knee pain Denies any other significant issues Will check X-ray and consult orthopod for possible injections since he is flaccid on the left side and really needs the right knee to ambulate Will monitor pt closely 09/24/20: Bowels moved yesterday Reports that he just spills his urinal in bed but he is definitely incontinent Voltaren Gel will be given Participating in therapy 09/23/20: Pt had a crazy dream last night Remeron may cause that so will monitor that closely and may need to discontinue Bowels moved yesterday Incontinence is being managed by using the urinal 09/22/20: Loop recorder maintained Incontinence continues Bowels are moving well Swallowing pretty well I witnessed him actually walking with one-assist No falls 09/21/20: Patient improved No pain reported Incontinence will be managed with bladder routine 09/20/20: Saw patient in midst of bed linen change due to incontinence bladder Working with therapy No pain reported except shoulder 09/19/20: Patient a bit down in spirits today No pain No ETOH withdrawal No falls Incontinence noted 09/18/20: Improved status Gets frustrated easily Has bad days and good days Loop recorder placed so will DC Tely Incontinence noted 09/17/20: Bowels moved yesterday Incontinent a bit with bowel and bladder so will try to get on bladder emptying schedule a long with bowel regimen Was able to move and lift up his left arm with a lot of effort but was remarkable Pt improved and much better spirits today 09/16/20: Telemetry needs to be maintained until loop recorder is placed Will reach out to Dr. Walker tomorrow Incontinence is an issue so will try to work with him in the urinal positional hernadez to help him In significant denial Behavioral health consult Bowels moved yesterday Catastrophic stroke and his coping mechanism is no longer available with smoking and drinking so that is causing a significant issue 09/15/20: Bowels finally moved today Lifting left leg a bit Tolerating food intake without much dysphasia Psych evaluation will be provided because of anxiety and depression and situational grief reaction due to catastrophic stroke Pt overall is very depressed Labs are okay 09/14/20: Turn Q 2hours Refusing stool softners BM 09/10/20 Colace and Senna taken today 09/13/20: Advancing diet Moved left leg a bit today No function in left arm though Shower today and shave Crushing his meds with pudding since he did choke on thin liquids Advancing diet as tolerated Bowels moved two days ago Pt appears to be very chronically ill Conferred with RN Reviewed therapy notes Checked meds and labs Review of Systems General: Fatigue, Malaise Objective Exam Vital Signs Vital Signs Date Time Temp Pulse Resp B/P (MAP) Pulse Ox O2 Delivery O2 Flow Rate FiO2 10/07/20 20:30 Room Air 10/07/20 15:15 36.6 74 16 110/55 (73) 96 Capillary Refill : Less Than 3 Seconds General Appearance: No Apparent Distress, WD/WN, Anxious, Chronically ill HEENT: PERRL/EOMI, Normal ENT Inspection, Pharynx Normal Neck: Full Range of Motion, Normal Inspection, Non Tender, Supple, Carotid Bruit Respiratory: Chest Non Tender, Lungs Clear, Normal Breath Sounds, No Accessory Muscle Use, No Respiratory Distress Cardiovascular: Regular Rate, Rhythm, No Edema, No Gallop, No JVD, No Murmur, Normal Peripheral Pulses Gastrointestinal: Normal Bowel Sounds, No Organomegaly, No Pulsatile Mass, Non Tender, Soft Back: Normal Inspection, No CVA Tenderness, No Vertebral Tenderness Extremity: Normal Capillary Refill, Normal Inspection, Normal Range of Motion (except left side weakness), Non Tender, No Calf Tenderness, No Pedal Edema Neurologic/Psychiatric: Alert, Oriented x3, Normal Mood/Affect, telephone appointment clerk II-XII Norm as Tested, Abnormal Gait, Depressed Affect, Facial Droop (left), Motor Weakness (left sided flaccidity) Skin: Normal Color, Warm/Dry Lymphatic: No Adenopathy Results/Procedures Lab Patient resulted labs reviewed. FIM Transfers Therapy Code Descriptions/Definitions Functional [place] Measure: 0=Not Assessed/NA 4=Minimal Assistance 1=Total Assistance 5=Supervision or Setup 2=Maximal Assistance 6=Modified [place] 3=Moderate Assistance 7=Complete IndependenceSCALE: Activities may be completed with or without assistive devices. 9-Mbeijsgwxa-knojnzz completes the activity by him/herself with no assistance from a helper. 5-Set-up or Clean-up Assistance-helper sets up or cleans up; patient completes activity. [place] assists only prior to or following the activity. 4-Supervision or Touching Assistance-helper provides verbal cues and/or touching/steadying and/or contact guard assistance as patient completes activity. Assistance may be provided throughout the activity or intermittently. 3-Partial/Moderate Assistance-helper does LESS THAN HALF the effort. [place] lifts, holds or supports trunk or limbs, but provides less than half the effort. 2-Substantial/Maximal Assistance-helper does MORE THAN HALF the effort. [place] lifts or holds trunk or limbs and provides more than half the effort. 2-Vxczclwcy-wfitwe does ALL the effort. Patient does none of the effort to complete the activity. Or, the assistance of 2 or more helpers is required for the patient to complete the activity. If activity was not attempted, code reason: 7-Patient Refused. 9-Not Applicable-not attempted and the patient did not perform the activity before the current illness, exacerbation or injury. 10-Not Attempted due to Environmental Limitations-(lack of equipment, weather restraints, etc.). 88-Not Attempted due to Medical Conditions or Safety Concerns. Roll Left to Right (QC): 6 Sit to Lying (QC): 6 Sit to Stand (QC): 4 Chair/Bnt-gn-Coith Xfer(QC): 4 Car Transfer (QC): 3 Gait Training Distance: 75'x2 Walk 10 feet (QC): 4 Walk 50 ft with 2 Turns(QC): 4 Walk 150 ft (QC): 3 Walking 10ft/uneven surface-QC: 88 Gait Persons Needed: 1 Gait Assistive Device: Walker Steffen Wheelchair Training Distance: 150' Wheel 50 ft with 2 turns (QC): 4 Wheel 150 ft (QC): 4 Stair Training 1 Step (curb) (QC): 88 4 Steps (QC): 88 12 Steps (QC): 88 Balance Picking up an Object (QC): 88 ADL-Treatment Eating (QC): 6 (Pt indicates he is able to use utensils, cut food, bring food to mouth, chew/swallow without difficulty.) Oral Hygiene (QC): 6 (IND seated at sink.) Shower/Bathe Self (QC): 4 (CGA in stand as pt performed pericare and washed buttocks. Pt able to wash all other parts in sitting with min cues for sequencing.) Upper Body Dressing (QC): 4 (SBA, pt able to doff shirt without cues, SBA for donning in order to recall hemiplegic dressing techniques.) Lower Body Dressing (QC): 3 (Min A, pt able to doff pants standing at hemiwalker with min A, pt attempted to balance on 1 foot as he stepped out of the pants, requiring cue to sit down before taking pants off of feet. Pt then able to thread BLEs and manage up, min A with L side of pants at waist.) On/Off Footwear (QC): 4 (SBA, min verbal cues to recall sequencing of task using dycem and figure 4 method.) Toileting Hygiene (QC): 4 (CGA in standing, pt able to manage pants and perform hygiene. ) Toilet Transfer (QC): 4 (CGA on/off toilet.) Assessment/Plan Assessment and Plan Assess & Plan/Chief Complaint Assessment: Catastrophic CVA with left sided weakness Smoker COPD HTN Gout Neuropathy CRI Alcoholism Depression Anxiety Plan: IRF protocol Pain meds Baclofen Home meds Ativan for etoh withdrawal symptoms 09/12/20: Dysphagia screening Monitor for return of function left weakness 09/13/20: Left leg function a bit today Shower today Monitor closely 09/14/20: BM regimen Turn Q 2hours IRF protocol 09/15/20: Monitor BP Fall risk Monitor dysphagia and aspiration risk 09/16/20: Nicotine patch Monitor aspiration 09/17/20: Left arm improving dramatically No pain reported Improved status 09/18/20: Improved status Loop recorder DC Tely 09/19/20: Monitor closely Loop recorder site is less tender now Fall risk incontinence care 09/20/20: Incontinence care Monitor bowels Therapy to intensify 09/21/20: Monitor incontinence 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 to decrease psychiatric aide instructor burden 09/22/20: PT OT ST Incontinence 09/23/20: Monitor incontinence Monitor dreams may need to DC Remeron 09/24/20: Monitor incontinence Urinal spilling will need close monitoring 09/25/20: Right knee eval by Dr Huang team Check xrays 09/26/20: Monitor right knee pain Continue aggressive therapy 09/27/20: Incontinence care Right knee pain management 09/28/20: Bladder training Check labs in am 09/29/20: Labs stable IRF protocol Education for today 09/30/20: Incontinence management DC soon Right knee pain management 10/01/20: Allopurinol restarted at his request Right knee pain does not appear to be gout 10/02/20: Monitor incontinence 10/03/20: Right knee pain improved Incontinence management 10/04/20: BM regimen Incontinence 10/05/20: Check labs in am DC soon 10/06/20: Incontinence improved Monitor BP Hold laxatives 10/07/20: Ramp being built Monitor closely Wound care to toe (1) Acute CVA (cerebrovascular accident) Status: Acute (2) Left-sided weakness Status: Acute (3) Gout (4) Alcoholism Status: Chronic (5) Ulcer of great toe Status: Acute (6) tPA 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
[2020-10-07] MEDS: FOLIC ACID 1 MG TAB PO SCH (09:13)
[2020-10-07] MEDS: ALLOPURINOL 100 MG (ZYLOPRIM) TAB PO SCH ×2 (09:13→17:46)
[2020-10-07] MEDS: ATENOLOL 25 MG (TENORMIN) TAB PO SCH (09:13)
[2020-10-07] MEDS: MAGNESIUM OXIDE (MAG-OX)400 MG TAB PO SCH ×2 (09:13→17:46)
[2020-10-07] MEDS: NICOTINE 14 MG (NICODERM) PATCH TD SCH (09:14)
[2020-10-07] MEDS: amLODIPine 5 MG (NORVASC) TAB PO SCH (09:14)
[2020-10-07] MEDS: ASPIRIN E.C. 325 MG (ECOTRIN) TABLET PO SCH (09:23)
[2020-10-07] MEDS: NICOTINE PATCH REMOVAL TP SCH (09:24)
[2020-10-07] MEDS: DICLOFENAC 1% GEL 100 GM (VOLTAREN) TUBE TOP SCH ×4 (09:25→22:23)
--- NOTE | 2020-10-07 10:25 | NUR ---
DR. GOEL INFORMED OF WOUND CARE CONSULT FOR RIGHT GREAT TOE WOUND. WILL SEE PATIENT LATER THIS AFTERNOON.
--- NOTE | 2020-10-07 10:50 | Physical Therapy Daily Note ---
PT Daily Note-Current Subjective Patient in recliner pre tx, agrees to PT, has no complaints of pain. Appearance Patient in recliner post tx with nurse call, phone, tray, all needs met. Mental Status Patient Orientation: Normal For Age Transfers SCALE: Activities may be completed with or without assistive devices. 9-Yqcukexccg-ljfprjb completes the activity by him/herself with no assistance from a helper. 5-Set-up or Clean-up Assistance-helper sets up or cleans up; patient completes activity. [place] assists only prior to or following the activity. 4-Supervision or Touching Assistance-helper provides verbal cues and/or touching/steadying and/or contact guard assistance as patient completes activity. Assistance may be provided throughout the activity or intermittently. 3-Partial/Moderate Assistance-helper does LESS THAN HALF the effort. [place] lifts, holds or supports trunk or limbs, but provides less than half the effort. 2-Substantial/Maximal Assistance-helper does MORE THAN HALF the effort. [place] lifts or holds trunk or limbs and provides more than half the effort. 3-Zypyfmtfo-thtxsv does ALL the effort. Patient does none of the effort to complete the activity. Or, the assistance of 2 or more helpers is required for the patient to complete the activity. If activity was not attempted, code reason: 7-Patient Refused. 9-Not Applicable-not attempted and the patient did not perform the activity before the current illness, exacerbation or injury. 10-Not Attempted due to Environmental Limitations-(lack of equipment, weather restraints, etc.). 88-Not Attempted due to Medical Conditions or Safety Concerns. Sit to Stand (QC): 4 Chair/Ego-ke-Kseom Xfer(QC): 4 CGA Weight Bearing Full Weight Bearing Full Weight Bearing Gait Training Distance: 150'x2 Walk 10 feet (QC): 4 Walk 50 ft with 2 Turns(QC): 4 Walk 150 ft (QC): 4 Gait Persons Needed: 1 Gait Assistive Device: Walker Steffen CGA, slow ambulation, improving step through on the left side Stair Training Stair Training: Handrails/: 1 handrail #of Steps: 4 1 Step (curb) (QC): 4 4 Steps (QC): 4 Stairs: Pattern: Step to CGA, cues for step placement, some steadying Exercises Standing: Step-ups Standing Reps: 10 NuStep Minutes: 15 NuStep Workload: 5 Treatments transfers, ambulation, stair training, LE strengthening Assessment Current Status: Fair Progress improving balance and LLE strength, patient CGA with ambulation but still requires some steadying PT Short Term Goals Short Term Goals Time Frame: Sep 18, 2020 Roll Left & Right: 6 Sit to lyin Lying to sitting on side of be: 3 Sit to stand: 3 Chair/aau-pc-rmgfy transfer: 3 Toilet transfer: 3 Walk 10 feet: 3 Wheel 50ft w/2 turns: 4 Wheel 150 feet: 4 PT Bingo Checker Goals Bingo Checker Goals PT Usp Goals Time Frame: Oct 02, 2020 Roll Left & Right (QC): 6 Sit to Lying (QC): 6 Lying-Sitting on Side/Bed(QC): 6 Sit to Stand (QC): 4 Chair/Zbq-gj-Cjrod Xfer(QC): 4 Toilet Transfer (QC): 4 Car Transfer (QC): 4 Does the Patient Walk: No and Walking Goal IS indicated Walk 10 feet (QC): 4 Walk 50ft with 2 Turns (QC): 4 Walk 150 ft (QC): 4 Walking 10ft on Uneven Surface: 4 1 Step (curb) (QC): 3 4 Steps (QC): 3 12 Steps (QC): 88 Picking up an Object (QC): 4 Wheel 50 feet with 2 turns (QC: 6 Wheel 150 feet: 6 PT Plan Problem List Problem List: Activity Tolerance, Functional Strength, Safety, Balance, Gait, Transfer, Bed Mobility, ROM Treatment/Plan Treatment Plan: Continue Plan of Care Treatment Plan: Bed Mobility, Education, Functional Activity Francesca, Functional Strength, Group Therapy, Gait, Safety, Therapeutic Exercise, Transfers Treatment Duration: Sep 25, 2020 Frequency: At least 5 of 7 days/Wk (IRF) Estimated Hrs Per Day: 1.5 hours per day Patient and/or Family Agrees t: Yes Safety Risks/Education Patient Education: Gait Training, Transfer Techniques, Steps, Correct Positioning, Safety Issues Teaching Recipient: Patient Teaching Methods: Demonstration, Discussion Response to Teaching: Reinforcement Needed Time/GCodes Time In: 1000 Time Out: 1100 Total Billed Treatment Time: 60 Total Billed Treatment 1 visit EX 20' FA 40' KRISTINE HAWK PT Oct 07, 2020 10:50
--- NOTE | 2020-10-07 12:48 | NUR ---
CM/SS DISCHARGE PLANNING HHC: Referral completed with patient/spouse preferred agency, [facility]. Patient has commercial insurance not accepted by alternate/closest agency. DME: Wheelchair and Steffen-walker ordered through [facility] on behalf of patient. Agency processing pre-authorization through commercial insurance. Spouse has ordered tub transfer bench and stool riser/BSC, tracking for delivery anticipated .
--- NOTE | 2020-10-07 13:16 | Speech Therapy Daily Note ---
Speech Daily Progress Note Subjective Date Seen by Provider: Oct 07, 2020 Time Seen by Provider: 00:30 Patient was sitting in his recliner following his lunch. Objective Patient completed a series of intermediate level of memory questions at 90% with minimal cues. Assessment Assessment Current Status: Good Progress Treatment Plan Continue Plan of Care Speech Short Term Goals Short Term Goals Short Term Goals 1) The patient will complete memory tasks related to her daily needs at 80% or greater with minimal cues. 2) The patient will complete safety awareness tasks related to her daily needs at 80% or greater with minimal cues. 3) The patient will complete problem solving tasks related to her daily needs at 80% or greater with minimal cues. 4) The patient will complete OME for improving speech intelligibility. Speech Concrete Paving Machine Operator Goals Concrete Paving Machine Operator Goals Patient will improve cognitive and speech abilities in order to effectively meet his daily needs with minimal assist. Speech-Plan Patient/Family Goals Patient/Family Goals: Patient is scheduled to return to his home on 10/09/2020. Treatment Plan Speech Therapy Treatment Plan: Continue Plan of Care Treatment Duration: Oct 10, 2020 Frequency: 4 times per week (Patient will receive skilled ST 4-5x per week) Estimated Hrs Per Day: .5 hour per day Rehab Potential: Fair Barriers to Learning: Patient's recent CVa and previous health issues. Pt/Family Agrees to Plan: Yes Safety Risks/Education Teaching Recipient: Patient Teaching Methods: Demonstration, Discussion Response to Teaching: Verbalize Understanding, Return Demonstration Education Topics Provided: Continued safety upon his return home Time Speech Therapy Time In: 13:00 Speech Therapy Time Out: 13:30 Total Billed Time: 30 Billed Treatment Time 1, YUVAL Flores Oct 07, 2020 13:16
--- NOTE | 2020-10-07 14:14 | Physical Therapy Daily Note ---
PT Daily Note-Current Subjective Patient in recliner pre tx, agrees to PT, has no complaints of pain. Appearance Patient in recliner post tx with nurse call, phone, tray, all needs met. Mental Status Patient Orientation: Person, Place, Situation, Normal For Age Transfers SCALE: Activities may be completed with or without assistive devices. 0-Prsebgrzsc-tuwitfp completes the activity by him/herself with no assistance from a helper. 5-Set-up or Clean-up Assistance-helper sets up or cleans up; patient completes activity. [place] assists only prior to or following the activity. 4-Supervision or Touching Assistance-helper provides verbal cues and/or touching/steadying and/or contact guard assistance as patient completes activity. Assistance may be provided throughout the activity or intermittently. 3-Partial/Moderate Assistance-helper does LESS THAN HALF the effort. [place] lifts, holds or supports trunk or limbs, but provides less than half the effort. 2-Substantial/Maximal Assistance-helper does MORE THAN HALF the effort. [place] lifts or holds trunk or limbs and provides more than half the effort. 0-Utthdqkuj-nbilih does ALL the effort. Patient does none of the effort to complete the activity. Or, the assistance of 2 or more helpers is required for the patient to complete the activity. If activity was not attempted, code reason: 7-Patient Refused. 9-Not Applicable-not attempted and the patient did not perform the activity before the current illness, exacerbation or injury. 10-Not Attempted due to Environmental Limitations-(lack of equipment, weather restraints, etc.). 88-Not Attempted due to Medical Conditions or Safety Concerns. Sit to Stand (QC): 4 Chair/Wqe-tc-Kkbda Xfer(QC): 4 CGA Weight Bearing Full Weight Bearing Full Weight Bearing Gait Training Distance: 150'x2 Walk 10 feet (QC): 4 Walk 50 ft with 2 Turns(QC): 4 Walk 150 ft (QC): 4 Gait Persons Needed: 1 Gait Assistive Device: Walker Steffen Slow, had more difficulty with stepping with left leg but still no LOB, was CGA the whole time, has unsteadiness though but is able to recover himself Treatments ambulation Assessment Current Status: Fair Progress improving general mobility PT Short Term Goals Short Term Goals Time Frame: Sep 18, 2020 Roll Left & Right: 6 Sit to lyin Lying to sitting on side of be: 3 Sit to stand: 3 Chair/hle-cc-jpnow transfer: 3 Toilet transfer: 3 Walk 10 feet: 3 Wheel 50ft w/2 turns: 4 Wheel 150 feet: 4 PT Fill Plant Operator Goals Penitentiary Goals PT Fill Plant Operator Goals Time Frame: Oct 02, 2020 Roll Left & Right (QC): 6 Sit to Lying (QC): 6 Lying-Sitting on Side/Bed(QC): 6 Sit to Stand (QC): 4 Chair/Ght-tq-Wevmw Xfer(QC): 4 Toilet Transfer (QC): 4 Car Transfer (QC): 4 Does the Patient Walk: No and Walking Goal IS indicated Walk 10 feet (QC): 4 Walk 50ft with 2 Turns (QC): 4 Walk 150 ft (QC): 4 Walking 10ft on Uneven Surface: 4 1 Step (curb) (QC): 3 4 Steps (QC): 3 12 Steps (QC): 88 Picking up an Object (QC): 4 Wheel 50 feet with 2 turns (QC: 6 Wheel 150 feet: 6 PT Plan Problem List Problem List: Activity Tolerance, Functional Strength, Safety, Balance, Gait, Transfer, Bed Mobility, ROM Treatment/Plan Treatment Plan: Continue Plan of Care Treatment Plan: Bed Mobility, Education, Functional Activity Francesca, Functional Strength, Group Therapy, Gait, Safety, Therapeutic Exercise, Transfers Treatment Duration: Sep 25, 2020 Frequency: At least 5 of 7 days/Wk (IRF) Estimated Hrs Per Day: 1.5 hours per day Patient and/or Family Agrees t: Yes Safety Risks/Education Patient Education: Gait Training, Transfer Techniques, Correct Positioning, Safety Issues Teaching Recipient: Patient Teaching Methods: Demonstration, Discussion Response to Teaching: Reinforcement Needed Time/GCodes Time In: 1345 Time Out: 1400 Total Billed Treatment Time: 15 Total Billed Treatment 1 visit GT 15' KRISTINE HAWK PT Oct 07, 2020 14:14
--- NOTE | 2020-10-07 14:30 | Progress Note - Cardiology ---
Cardiology SOAP Progress Note Subjective: Sitting up in recliner at the bedside. No c/o CP, palpitations or dyspnea. Objective: I&O/Vital Signs 10/07/20 10/07/20 10/07/20 06:39 10:06 15:15 Temp 36.4 36.6 Pulse 90 74 Resp 16 16 B/P (MAP) 130/73 (92) 110/55 (73) Pulse Ox 95 96 O2 Delivery Room Air Room Air Room Air 10/07/20 00:00 Intake Total 900 ml Output Total 450 ml Balance 450 ml Weight (Pounds): 220 Weight (Ounces): 8.8 Weight (Calculated Kilograms): [id number] Constitutional: AAO x 3, well-developed, well-nourished Respiratory: No accessory muscle use, No respiratory distress; chest is bilaterally symmetric, lungs clear to auscultation Cardiovascular: regular rate-rhythm; No JVD; S1 and S2 Gastrointestional: No tender; soft, audible bowel sounds Extremities: no lower extremity edema bilateral Neurologic/Psychiatric: other (left sided hemiparesis) Skin: No rash on exposed areas, No ulcerations on exposed areas Results/Procedures: Labs Laboratory Tests 10/06/20 05:09 A/P: Assessment: Cryptogenic CVA, recieved tPA, still having left sided weakness. 2D echo done 09/09/2020 revealed grade 1 diastolic dysfunction, EF 50-55%, PA 40- 45%, per Dr. Walker CTA Head and neck showed no carotid artery stenosis S/P ILR implant per Dr. Walker Hypertension Hyperlipidemia, maintained on statin Tobaccoism, educated on smoking cessation ETOH use, advise cessation Plan: Continue current cardiac regimen We have reviewed Dr. Walker's progress notes KAREN GAITAN Oct 07, 2020 14:30
[2020-10-07 15:15] VITALS: BP 110/55
--- NOTE | 2020-10-07 16:29 | Progress Note - Cardiology ---
Cardiology SOAP Progress Note Subjective: No cp or palp or syncope or shortness of breath at rest Gen weakness and malaise present Objective: I&O/Vital Signs 10/07/20 10/07/20 10/07/20 06:39 10:06 15:15 Temp 36.4 36.6 Pulse 90 74 Resp 16 16 B/P (MAP) 130/73 (92) 110/55 (73) Pulse Ox 95 96 O2 Delivery Room Air Room Air Room Air 10/07/20 00:00 Intake Total 900 ml Output Total 450 ml Balance 450 ml Weight (Pounds): 220 Weight (Ounces): 8.8 Weight (Calculated Kilograms): 100.568700 Constitutional: AAO x 3, well-developed, well-nourished Respiratory: No accessory muscle use, No respiratory distress; chest is bilaterally symmetric, lungs clear to auscultation Cardiovascular: regular rate-rhythm; No JVD; S1 and S2 Gastrointestional: No tender; soft, audible bowel sounds Extremities: no lower extremity edema bilateral Neurologic/Psychiatric: other (left sided hemiparesis) Skin: No rash on exposed areas, No ulcerations on exposed areas A/P: Assessment: Cryptogenic CVA, recieved tPA, still having left sided weakness. 2D echo done 09/09/2020 revealed grade 1 diastolic dysfunction, EF 50-55%, PA 40- 45%, per Dr. Walker CTA Head and neck showed no carotid artery stenosis S/P ILR implant per Dr. Walker Hypertension Hyperlipidemia, maintained on statin Tobaccoism, educated on smoking cessation ETOH use, advise cessation Plan: Continue current cardiac regimen We have reviewed Dr. Walker's progress notes JOHN MILLER MD FACP FAC CCDS Oct 07, 2020 16:29
--- NOTE | 2020-10-07 17:50 | NUR ---
DR. GOEL HERE TO SEE PATIENT. NEW ORDERS TO PAINT RIGHT GREAT TOE WITH BETADINE AND LEAVE [facility]HAN.
--- NOTE | 2020-10-07 18:25 | Wound Care Assessment ---
Wound Care Assessment Date Seen by Provider: Oct 07, 2020 Time Seen by Provider: 17:20 Chief Complaint Callus R great toe. HPI The patient is a 59 year old male with recent stroke, L sided weakness, and recurrence of R great toe callus/ulcer as ambulation is improving. The callus appears stable at this time, will paint with Betadine, and follow-up in [facility]ound [facility]. Smoking Status: Current Everyday Smoker Recreational Drug Use: No Alcohol Use: Regular Use Review of Systems Pulmonary: No Dyspnea Cardiovascular: No: Chest Pain Exam Vital Signs Date Time Temp Pulse Resp B/P (MAP) Pulse Ox O2 Delivery O2 Flow Rate FiO2 10/07/20 18:08 Room Air 10/07/20 15:15 36.6 74 16 110/55 (73) 96 Capillary Refill : Less Than 3 Seconds General Appearance: no apparent distress Extremities: other (R great toe -- 1.2 x 1.5 x 0.1 cm callus with eschar. No drainage.) Assessment/Plan/Dx 1. R great toe callus with eschar. 2. L sideed weakness, post CVA. 3. Plan: [place] with Betadine. PARVEEN GOEL MD Oct 07, 2020 18:25
[2020-10-07] MEDS: MELATONIN 3 MG TABLET PO PRN (22:22)
[2020-10-07] MEDS: LORazepam 0.5 MG (ATIVAN) TABLET PO SCH (22:22)
[2020-10-07] MEDS: MIRTAZAPINE 15 MG (REMERON) TAB PO SCH (22:22)
--- NOTE | 2020-10-08 05:57 | PM&R Progress Note ---
Subjective HPI/CC On Admission Date Seen by Provider: Oct 08, 2020 Time Seen by Provider: 09:00 Subjective/Events-last exam 10/08/20: DC Plan for tomorrow Shahnaz recommended painting the toe with Betadine Overall doing pretty well Ready for DC 10/07/20: Incontinence varies but seems like he is doing much better DC once the ramp is built Overall doing pretty well except the wound on his right toe is back opened up again so consulted Dr. Christie 10/06/20: No fecal incontinence No urinary incontinence Using the urinal pretty well Ramp will be built and then he will discharge 10/05/20: Walked well today DC soon Monitored closely 10/04/20: BM 10/03 Doing well Wants to go home 10/03/20: No major issues Incontinency of bladder continues BM++ 10/02/20: Restart Allopurinol but I did tell him we stopped that 02/2019 and he states he has a bottle he takes in the drawer RN reviewed bottles in his drawer and he does not take that anymore Regardless will maintain the Allopurinol BID 10/01/20: Knee pain continues and he talks about it constantly Allopurinol will be restarted at 100mg twice a day but he has been off that of February of 2019 per my office charts and there has not been any refills, he thought it was gout and it is definitely not gout. He received a steroid injection in the knee by orthopedics and currently it does not appear to be gout DC plan for next week 09/30/20: Becoming more and more independent Pt is incontinent was very helpful yesterday during family training 09/29/20: DC planning Family training today Incontinence management Doing pretty well Bowels are moving Overall feels like he is making progress 09/28/20: BM today Toileting improved Bladder training every 2 hours going well 09/27/20: Incontinence discussed Right knee pain reported is improved Voltaren gel maintained 09/26/20: Right knee about the same since knee infection No falls Incontinence continues Monitoring closely 09/25/20: Pt complaining of right knee pain Denies any other significant issues Will check X-ray and consult orthopod for possible injections since he is flaccid on the left side and really needs the right knee to ambulate Will monitor pt closely 09/24/20: Bowels moved yesterday Reports that he just spills his urinal in bed but he is definitely incontinent Voltaren Gel will be given Participating in therapy 09/23/20: Pt had a crazy dream last night Remeron may cause that so will monitor that closely and may need to discontinue Bowels moved yesterday Incontinence is being managed by using the urinal 09/22/20: Loop recorder maintained Incontinence continues Bowels are moving well Swallowing pretty well I witnessed him actually walking with one-assist No falls 09/21/20: Patient improved No pain reported Incontinence will be managed with bladder routine 09/20/20: Saw patient in midst of bed linen change due to incontinence bladder Working with therapy No pain reported except shoulder 09/19/20: Patient a bit down in spirits today No pain No ETOH withdrawal No falls Incontinence noted 09/18/20: Improved status Gets frustrated easily Has bad days and good days Loop recorder placed so will DC Tely Incontinence noted 09/17/20: Bowels moved yesterday Incontinent a bit with bowel and bladder so will try to get on bladder emptying schedule a long with bowel regimen Was able to move and lift up his left arm with a lot of effort but was remarkable Pt improved and much better spirits today 09/16/20: Telemetry needs to be maintained until loop recorder is placed Will reach out to Dr. Walker tomorrow Incontinence is an issue so will try to work with him in the urinal positional hernadez to help him In significant denial Behavioral health consult Bowels moved yesterday Catastrophic stroke and his coping mechanism is no longer available with smoking and drinking so that is causing a significant issue 09/15/20: Bowels finally moved today Lifting left leg a bit Tolerating food intake without much dysphasia Psych evaluation will be provided because of anxiety and depression and situational grief reaction due to catastrophic stroke Pt overall is very depressed Labs are okay 09/14/20: Turn Q 2hours Refusing stool softners BM 09/10/20 Colace and Senna taken today 09/13/20: Advancing diet Moved left leg a bit today No function in left arm though Shower today and shave Crushing his meds with pudding since he did choke on thin liquids Advancing diet as tolerated Bowels moved two days ago Pt appears to be very chronically ill Conferred with RN Reviewed therapy notes Checked meds and labs Review of Systems General: Fatigue, Malaise Neurological: Weakness, Incoordination Objective Exam Vital Signs Vital Signs Date Time Temp Pulse Resp B/P (MAP) Pulse Ox O2 Delivery O2 Flow Rate FiO2 10/08/20 17:40 36.3 72 18 118/59 (78) 99 Room Air Capillary Refill : Less Than 3 Seconds General Appearance: No Apparent Distress, WD/WN, Anxious, Chronically ill HEENT: PERRL/EOMI, Normal ENT Inspection, Pharynx Normal Neck: Full Range of Motion, Normal Inspection, Non Tender, Supple, Carotid Bruit Respiratory: Chest Non Tender, Lungs Clear, Normal Breath Sounds, No Accessory Muscle Use, No Respiratory Distress Cardiovascular: Regular Rate, Rhythm, No Edema, No Gallop, No JVD, No Murmur, Normal Peripheral Pulses Gastrointestinal: Normal Bowel Sounds, No Organomegaly, No Pulsatile Mass, Non Tender, Soft Back: Normal Inspection, No CVA Tenderness, No Vertebral Tenderness Extremity: Normal Capillary Refill, Normal Inspection, Normal Range of Motion (except left side weakness), Non Tender, No Calf Tenderness, No Pedal Edema Neurologic/Psychiatric: Alert, Oriented x3, Normal Mood/Affect, manager metal II-XII Norm as Tested, Abnormal Gait, Depressed Affect, Facial Droop (left), Motor Weakness (left sided flaccidity) Skin: Normal Color, Warm/Dry Lymphatic: No Adenopathy Results/Procedures Lab Patient resulted labs reviewed. FIM Transfers Therapy Code Descriptions/Definitions Functional [place] Measure: 0=Not Assessed/NA 4=Minimal Assistance 1=Total Assistance 5=Supervision or Setup 2=Maximal Assistance 6=Modified [place] 3=Moderate Assistance 7=Complete IndependenceSCALE: Activities may be completed with or without assistive devices. 3-Hzfxrjmede-osnbvvn completes the activity by him/herself with no assistance from a helper. 5-Set-up or Clean-up Assistance-helper sets up or cleans up; patient completes activity. [place] assists only prior to or following the activity. 4-Supervision or Touching Assistance-helper provides verbal cues and/or touching/steadying and/or contact guard assistance as patient completes activity. Assistance may be provided throughout the activity or intermittently. 3-Partial/Moderate Assistance-helper does LESS THAN HALF the effort. [place] lifts, holds or supports trunk or limbs, but provides less than half the effort. 2-Substantial/Maximal Assistance-helper does MORE THAN HALF the effort. [place] lifts or holds trunk or limbs and provides more than half the effort. 3-Hthydstnw-cnkltc does ALL the effort. Patient does none of the effort to complete the activity. Or, the assistance of 2 or more helpers is required for the patient to complete the activity. If activity was not attempted, code reason: 7-Patient Refused. 9-Not Applicable-not attempted and the patient did not perform the activity before the current illness, exacerbation or injury. 10-Not Attempted due to Environmental Limitations-(lack of equipment, weather restraints, etc.). 88-Not Attempted due to Medical Conditions or Safety Concerns. Roll Left to Right (QC): 6 Sit to Lying (QC): 6 Sit to Stand (QC): 4 Chair/Bsv-tz-Rqgqh Xfer(QC): 4 Car Transfer (QC): 3 Gait Training Distance: 150'x2 Walk 10 feet (QC): 4 Walk 50 ft with 2 Turns(QC): 4 Walk 150 ft (QC): 4 Walking 10ft/uneven surface-QC: 88 Gait Persons Needed: 1 Gait Assistive Device: Walker Steffen Wheelchair Training Distance: 150' Wheel 50 ft with 2 turns (QC): 4 Wheel 150 ft (QC): 4 Stair Training Stair Training: Handrails/: 1 handrail #of Steps: 4 1 Step (curb) (QC): 4 4 Steps (QC): 4 12 Steps (QC): 88 Stairs: Pattern: Step to Balance Picking up an Object (QC): 88 ADL-Treatment Eating (QC): 6 (Pt indicates he is able to use utensils, cut food, bring food to mouth, chew/swallow without difficulty.) Oral Hygiene (QC): 6 (IND seated at sink.) Shower/Bathe Self (QC): 4 (CGA in stand at [facility] as pt washed/dried buttocks. Pt able to wash/dry all otherparst seated on MT) Upper Body Dressing (QC): 4 (SBA, pt able to don/doff lung puller shirt.) Lower Body Dressing (QC): 4 (CGA in stand at [facility], pt able to thread legs into pants, and manage pants up/down.) On/Off Footwear (QC): 4 (SBA, pt able to doff/emiliano gripper socks using dycem and figure 4 method.) Toileting Hygiene (QC): 4 (CGA in standing, pt able to manage pants and perform hygiene. ) Toilet Transfer (QC): 4 (CGA on/off toilet.) Assessment/Plan Assessment and Plan Assess & Plan/Chief Complaint Assessment: Catastrophic CVA with left sided weakness Smoker COPD HTN Gout Neuropathy CRI Alcoholism Depression Anxiety Plan: IRF protocol Pain meds Baclofen Home meds Ativan for etoh withdrawal symptoms 09/12/20: Dysphagia screening Monitor for return of function left weakness 09/13/20: Left leg function a bit today Shower today Monitor closely 09/14/20: BM regimen Turn Q 2hours IRF protocol 09/15/20: Monitor BP Fall risk Monitor dysphagia and aspiration risk 09/16/20: Nicotine patch Monitor aspiration 09/17/20: Left arm improving dramatically No pain reported Improved status 09/18/20: Improved status Loop recorder DC Tely 09/19/20: Monitor closely Loop recorder site is less tender now Fall risk incontinence care 09/20/20: Incontinence care Monitor bowels Therapy to intensify 09/21/20: Monitor incontinence 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 to 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 09/22/20: PT OT ST Incontinence 09/23/20: Monitor incontinence Monitor dreams may need to DC Remeron 09/24/20: Monitor incontinence Urinal spilling will need close monitoring 09/25/20: Right knee eval by Dr Huang team Check xrays 09/26/20: Monitor right knee pain Continue aggressive therapy 09/27/20: Incontinence care Right knee pain management 09/28/20: Bladder training Check labs in am 09/29/20: Labs stable IRF protocol Education for today 09/30/20: Incontinence management DC soon Right knee pain management 10/01/20: Allopurinol restarted at his request Right knee pain does not appear to be gout 10/02/20: Monitor incontinence 10/03/20: Right knee pain improved Incontinence management 10/04/20: BM regimen Incontinence 10/05/20: Check labs in am DC soon 10/06/20: Incontinence improved Monitor BP Hold laxatives 10/07/20: Ramp being built Monitor closely Wound care to toe 10/08/20: DC tomorrow (1) Acute CVA (cerebrovascular accident) Status: Acute (2) Left-sided weakness Status: Acute (3) Gout (4) Alcoholism Status: Chronic (5) Ulcer of great toe Status: Acute (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
[2020-10-08] MEDS: KCL 10 MEQ TAB (MICRO K) PO SCH (06:23)
[2020-10-08] MEDS: MULTIVIT W/MINERALS TAB (THERAGRAN M) PO SCH (06:23)
[2020-10-08] MEDS: THIAMINE 100 MG (VITAMIN B-1) TAB PO SCH (06:23)
[2020-10-08 06:37] VITALS: BP 115/58
--- NOTE | 2020-10-08 08:42 | Occupational Ther Daily Note ---
OT Current Status-Daily Note Subjective Pt seated in recliner, agreeable to OT tx. Pt disappointed he was not able to leave today, as his ramp had been delivered Tuesday and he thought he would be able to go home as soon as the ramp was delivered. Mental Status/Objective Patient Orientation: Person, Place, Time, Situation ADL-Treatment Therapy Code Descriptions/Definitions Functional [place] Measure: 0=Not Assessed/NA 4=Minimal Assistance 1=Total Assistance 5=Supervision or Setup 2=Maximal Assistance 6=Modified [place] 3=Moderate Assistance 7=Complete IndependenceSCALE: Activities may be completed with or without assistive devices. 6-Ulptcjofhp-nkntjsv completes the activity by him/herself with no assistance from a helper. 5-Set-up or Clean-up Assistance-helper sets up or cleans up; patient completes activity. [place] assists only prior to or following the activity. 4-Supervision or Touching Assistance-helper provides verbal cues and/or touching /steadying and/or contact guard assistance as patient completes activity. Assistance may be provided throughout the activity or intermittently. 3-Partial/Moderate Assistance-helper does LESS THAN HALF the effort. [place] lifts, holds or supports trunk or limbs, but provides less than half the effort. 2-Substantial/Maximal Assistance-helper does MORE THAN HALF the effort. [place] lifts or holds trunk or limbs and provides more than half the effort. 7-Oumjkkbbp-myphlw does ALL the effort. Patient does none of the effort to complete the activity. Or, the assistance of 2 or more helpers is required for the patient to complete the activity. If activity was not attempted, code reason: 7-Patient Refused. 9-Not Applicable-not attempted and the patient did not perform the activity before the current illness, exacerbation or injury. 10-Not Attempted due to Environmental Limitations-(lack of equipment, weather restraints, etc.). 88-Not Attempted due to Medical Conditions or Safety Concerns. Eating (QC): 6 (based on clincial judgement and pt report, pt is independent with feeding.) Oral Hygiene (QC): 6 (IND seated at sink.) Shower/Bathe Self (QC): 4 (CGA in stand to wash/dry buttocks. Pt able to wash/dry all other parts seated on SC.) Upper Body Dressing (QC): 5 (set up) Lower Body Dressing (QC): 4 (CGA in stand at [facility] for pant hike. ) On/Off Footwear: 4 (SBA, pt able to doff/emiliano gripper socks.) Toileting Hygiene (QC): 4 (CGA in stand at [facility] for clothing management and hygiene.) Toilet Transfer (QC): 4 (CGA on/off toilet.) Other Treatment Pt seated in recliner, agreeable to OT tx. Pt used hemiwalker to ambulate into restroom and onto toilet with CGA. Pt completed toileting and doffed lower body clothing. Pt attempted to take legs out of pants while standing, requiring verbal instruction to sit down before taking pants off of feet for safety. Pt indicates he thought it was okay since he had the hemiwalker, OT educated pt on safety with task, he verbalized understanding. After toileting,he used hemiwalker to transfer to shower chair, CGA. Pt completed showering at [place], with CGA in stand to wash/dry buttocks. Pt then transferred to w/c to complete dressing, CGA in stand at [facility] for clothing management. Pt sat at sink to brush hair and teeth independently. Hemiwalker to recliner, CGA. Post OT tx, pt seated in recliner, call light in reach and all needs met. Education OT Patient Education: Correct positioning, Modified ADL techniques, Progress toward Goal/Update tx plan, Purpose of tx/functional activities, Safety issues Teaching Recipient: Patient Teaching Methods: Discussion Response to Teaching: Verbalize Understanding OT Fdc Goals Fdc Goals Time Frame: Oct 03, 2020 Eating (QC): 6 Oral Hygiene (QC): 6 Toileting Hygiene (QC): 4 Shower/Bathe Self (QC): 4 Upper Body Dressing (QC): 6 Lower Body Dressing (QC): 4 On/Off Footwear (QC): 4 Additional Goals: 1-Demonstrate ADL Tasks, 2-Verbalize Understanding, 3- ImproveStrength/Francesca 1=Demonstrate adherence to instructed precautions during ADL tasks. 2=Patient will verbalize/demonstrate understanding of assistive devices/modifications for ADL. 3=Patient will improve strength/tolerance for activity to enable patient to perform ADL's. OT Education/Plan Problem List/Assessment Assessment: Decreased Activ Tolerance, Decreased UE Strength, Impaired Funct Balance, Impaired I ADL's, Impaired Self-Care Skills Discharge Recommendations Plan/Recommendations: Continue POC Treatment Plan/Plan of Care Patient would benefit from OT for education, treatment and training to promote independence in ADL's, mobility, safety and/or upper extremity function for ADL's. Plan of Care: ADL Retraining, Functional Mobility, Group Exercise/Act as Ind, UE Funct Exercise/Act, UE Neuromus Re-Ed/Coord Treatment Duration: Oct 03, 2020 Frequency: At least 5 of 7 days/Wk (IRF) Estimated Hrs Per Day: 1.5 hours per day Agreement: Yes Rehab Potential: Fair Time/GCodes Start Time: 08:00 Stop Time: 09:15 Total Time Billed (hr/min): 75 Billed Treatment Time 1, ADL 5 WILFREDO CORLEY OT Oct 08, 2020 08:42
[2020-10-08] MEDS: ALLOPURINOL 100 MG (ZYLOPRIM) TAB PO SCH ×2 (09:23→17:47)
[2020-10-08] MEDS: amLODIPine 5 MG (NORVASC) TAB PO SCH (09:23)
[2020-10-08] MEDS: MAGNESIUM OXIDE (MAG-OX)400 MG TAB PO SCH ×2 (09:23→17:48)
[2020-10-08] MEDS: ATENOLOL 25 MG (TENORMIN) TAB PO SCH (09:23)
[2020-10-08] MEDS: ASPIRIN E.C. 325 MG (ECOTRIN) TABLET PO SCH (09:23)
[2020-10-08] MEDS: FOLIC ACID 1 MG TAB PO SCH (09:23)
[2020-10-08] MEDS: NICOTINE 14 MG (NICODERM) PATCH TD SCH (09:24)
--- NOTE | 2020-10-08 09:29 | Speech Therapy Daily Note ---
Speech Daily Progress Note Subjective Date Seen by Provider: Oct 08, 2020 Time Seen by Provider: 00:45 Patient states he was anxious to be returning to his home tomorrow. Objective Patient completed a series of sentence/phrase completion exercises with 90% given 10% verbal cues. Patient also completed a series of questions related to his return home tomorrow. Assessment Assessment Current Status: Good Progress Treatment Plan Discontinue ST, Goals Met Speech Short Term Goals Short Term Goals Short Term Goals 1) The patient will complete memory tasks related to her daily needs at 80% or greater with minimal cues. 2) The patient will complete safety awareness tasks related to her daily needs at 80% or greater with minimal cues. 3) The patient will complete problem solving tasks related to her daily needs at 80% or greater with minimal cues. 4) The patient will complete OME for improving speech intelligibility. Speech Traverse Rod Assembler Goals Fpc Goals Patient will improve cognitive and speech abilities in order to effectively meet his daily needs with minimal assist. Speech-Plan Patient/Family Goals Patient/Family Goals: Patient is returning home tomorrow where he lives with his . Treatment Plan Speech Therapy Treatment Plan: Discontinue ST, Goals Met Treatment Duration: Oct 10, 2020 Frequency: 4 times per week (Patient will receive skilled ST 4-5x per week) Estimated Hrs Per Day: .5 hour per day Rehab Potential: Fair Barriers to Learning: Affects of recent CVA, although mostly resolved with exception to a slight droop on the left side of his face. Pt/Family Agrees to Plan: Yes Safety Risks/Education Teaching Recipient: Patient Teaching Methods: Demonstration, Discussion Response to Teaching: Verbalize Understanding, Return Demonstration Education Topics Provided: Continued speech OME at home and safety of oral intake Time Speech Therapy Time In: 11:00 Speech Therapy Time Out: 11:30 Total Billed Time: 29 Billed Treatment Time 1, SLTS No 13:30 to 13:45 15 minutes, SLTS QUALITY CODES: EXPRESSION OF IDEAS/WANTS: 4 UNDERSTANDING VERBAL CONTENT: 4 BRIEF INTERVIEW MENTAL STATUS: YES REPETITION OF 3 WORDS: 3 TEMPORAL ORIENTATION:; YEAR: CORRECT, MONTH: CORRECT, DAY: CORRECT RECALL SOCK: YES, COLOR: YES, BED: YES MEMORY/RECALL ABILITY YUVAL BROOKS Oct 08, 2020 09:29
[2020-10-08] MEDS: NICOTINE PATCH REMOVAL TP SCH (10:05)
[2020-10-08] MEDS: DICLOFENAC 1% GEL 100 GM (VOLTAREN) TUBE TOP SCH ×4 (10:08→22:27)
[2020-10-08] MEDS: POVIDONE (BETADINE) 10% SOLN 240 ML BTL TOP SCH (10:09)
--- NOTE | 2020-10-08 10:13 | Physical Therapy Daily Note ---
PT Daily Note-Current Subjective Pt sitting in recliner upon arrival. Pt agrees to PT. Pain Numeric Pain Scale: 4 Location: Right Location Body Site: Foot Pain Description: Ache Comment: Pt reports Neuropathy pain in R foot Mental Status Patient Orientation: Person, Place, Situation Transfers SCALE: Activities may be completed with or without assistive devices. 5-Xfazofgnqu-sexxyog completes the activity by him/herself with no assistance from a helper. 5-Set-up or Clean-up Assistance-helper sets up or cleans up; patient completes activity. [place] assists only prior to or following the activity. 4-Supervision or Touching Assistance-helper provides verbal cues and/or touching/steadying and/or contact guard assistance as patient completes activity. Assistance may be provided throughout the activity or intermittently. 3-Partial/Moderate Assistance-helper does LESS THAN HALF the effort. [place] lifts, holds or supports trunk or limbs, but provides less than half the effort. 2-Substantial/Maximal Assistance-helper does MORE THAN HALF the effort. [place] lifts or holds trunk or limbs and provides more than half the effort. 8-Muuaccenw-afpqgz does ALL the effort. Patient does none of the effort to complete the activity. Or, the assistance of 2 or more helpers is required for the patient to complete the activity. If activity was not attempted, code reason: 7-Patient Refused. 9-Not Applicable-not attempted and the patient did not perform the activity before the current illness, exacerbation or injury. 10-Not Attempted due to Environmental Limitations-(lack of equipment, weather restraints, etc.). 88-Not Attempted due to Medical Conditions or Safety Concerns. Sit to Stand (QC): 4 Chair/Gmg-zm-Tgzeu Xfer(QC): 4 CGA for TF, pt completes the work though. Weight Bearing Full Weight Bearing Full Weight Bearing Gait Training Does the Patient Walk?: Yes Distance: 125' x2 Walk 10 feet (QC): 4 Walk 50 ft with 2 Turns(QC): 4 Walk 150 ft (QC): 4 Walking 10ft/uneven surface-QC: 4 Gait Persons Needed: 1 Gait Assistive Device: Walker Steffen FUEL CELL BINDER is CGA for safety but pt has no LOB. Wheelchair Training Does the Pt Use a Wheelchair?: No Stair Training Stair Training: Handrails/: 1 handrail #of Steps: 4 1 Step (curb) (QC): 4 4 Steps (QC): 4 12 Steps (QC): 9 Stairs: Pattern: Step to Pt is to fatigued to complete more than 4 steps. Balance Picking up an Object (QC): 6 Special Test Comments Pt can complete with edge baster but not safe w/o one. Pt is aware and knows she will need one. Treatments Pt completes QC scoring items listed above. Pt returns to room at end of tx to rest in recliner. All needs met, call light in hand. Pt will complete QC scoring for bed mobility in afternoon session. Assessment Current Status: Good Progress Pt is less impulsive but still has moments of impulsivity. Pt has gained strength and improved muscle control. PT Short Term Goals Short Term Goals Time Frame: Sep 18, 2020 Roll Left & Right: 6 Sit to lyin Lying to sitting on side of be: 3 Sit to stand: 3 Chair/duf-ky-arsdl transfer: 3 Toilet transfer: 3 Walk 10 feet: 3 Wheel 50ft w/2 turns: 4 Wheel 150 feet: 4 PT Table Top Tile Setter Goals Intermediate Goals PT Table Top Tile Setter Goals Time Frame: Oct 02, 2020 Roll Left & Right (QC): 6 Sit to Lying (QC): 6 Lying-Sitting on Side/Bed(QC): 6 Sit to Stand (QC): 4 Chair/Sab-fn-Jviqp Xfer(QC): 4 Toilet Transfer (QC): 4 Car Transfer (QC): 4 Does the Patient Walk: No and Walking Goal IS indicated Walk 10 feet (QC): 4 Walk 50ft with 2 Turns (QC): 4 Walk 150 ft (QC): 4 Walking 10ft on Uneven Surface: 4 1 Step (curb) (QC): 3 4 Steps (QC): 3 12 Steps (QC): 88 Picking up an Object (QC): 4 Wheel 50 feet with 2 turns (QC: 6 Wheel 150 feet: 6 PT Plan Problem List Problem List: Activity Tolerance, Functional Strength Treatment/Plan Treatment Plan: Continue Plan of Care Treatment Plan: Bed Mobility, Education, Functional Activity Francesca, Functional Strength, Group Therapy, Gait, Safety, Therapeutic Exercise, Transfers Treatment Duration: Sep 25, 2020 Frequency: At least 5 of 7 days/Wk (IRF) Estimated Hrs Per Day: 1.5 hours per day Patient and/or Family Agrees t: Yes Safety Risks/Education Patient Education: Gait Training, Transfer Techniques, Steps, Correct Positioning, Safety Issues Teaching Recipient: Patient Teaching Methods: Discussion Response to Teaching: Verbalize Understanding Time/GCodes Time In: 915 Time Out: 1000 Total Billed Treatment Time: 45 Total Billed Treatment 1, GT (15m) & FA x2 (30m) ANAHY ENCARNACION FUEL CELL BINDER Oct 08, 2020 10:13
--- NOTE | 2020-10-08 14:50 | Physical Therapy Daily Note ---
PT Daily Note-Current Subjective Pt sitting in recliner upon arrival. Pt agrees to PT. Pt will finish bed mobility QC scoring for DC tomorrow. Pain Location: No Pain Reported Mental Status Patient Orientation: Person, Place, Situation Transfers SCALE: Activities may be completed with or without assistive devices. 8-Bvlovpvazt-aehyesq completes the activity by him/herself with no assistance from a helper. 5-Set-up or Clean-up Assistance-helper sets up or cleans up; patient completes activity. [place] assists only prior to or following the activity. 4-Supervision or Touching Assistance-helper provides verbal cues and/or touching/steadying and/or contact guard assistance as patient completes activity. Assistance may be provided throughout the activity or intermittently. 3-Partial/Moderate Assistance-helper does LESS THAN HALF the effort. [place] lifts, holds or supports trunk or limbs, but provides less than half the effort. 2-Substantial/Maximal Assistance-helper does MORE THAN HALF the effort. [place] lifts or holds trunk or limbs and provides more than half the effort. 0-Crcydneox-vyjyxp does ALL the effort. Patient does none of the effort to complete the activity. Or, the assistance of 2 or more helpers is required for the patient to complete the activity. If activity was not attempted, code reason: 7-Patient Refused. 9-Not Applicable-not attempted and the patient did not perform the activity before the current illness, exacerbation or injury. 10-Not Attempted due to Environmental Limitations-(lack of equipment, weather restraints, etc.). 88-Not Attempted due to Medical Conditions or Safety Concerns. Roll Left & Right (QC): 6 Sit to Lying (QC): 6 Lying to Sitting/Side of Bed(Q: 6 Sit to Stand (QC): 5 Pt uses side of bed mattress to pull on for bed mobility. Weight Bearing Full Weight Bearing Full Weight Bearing Treatments TF from sitting to standing then completes bed mobility before returning to recliner to rest at end of tx. All needs met, call light in hand. Assessment Current Status: Good Progress Pt is anticipating DC tomorrow and was given HEP for Supine & Seated EX to take with him. PT Short Term Goals Short Term Goals Time Frame: Sep 18, 2020 Roll Left & Right: 6 Sit to lyin Lying to sitting on side of be: 3 Sit to stand: 3 Chair/kpj-mu-ojobp transfer: 3 Toilet transfer: 3 Walk 10 feet: 3 Wheel 50ft w/2 turns: 4 Wheel 150 feet: 4 PT Mcc Goals Power Crane Operator Goals PT Mcc Goals Time Frame: Oct 02, 2020 Roll Left & Right (QC): 6 Sit to Lying (QC): 6 Lying-Sitting on Side/Bed(QC): 6 Sit to Stand (QC): 4 Chair/Fnj-po-Oklhe Xfer(QC): 4 Toilet Transfer (QC): 4 Car Transfer (QC): 4 Does the Patient Walk: No and Walking Goal IS indicated Walk 10 feet (QC): 4 Walk 50ft with 2 Turns (QC): 4 Walk 150 ft (QC): 4 Walking 10ft on Uneven Surface: 4 1 Step (curb) (QC): 3 4 Steps (QC): 3 12 Steps (QC): 88 Picking up an Object (QC): 4 Wheel 50 feet with 2 turns (QC: 6 Wheel 150 feet: 6 PT Plan Problem List Problem List: Activity Tolerance, Functional Strength Treatment/Plan Treatment Plan: Continue Plan of Care Treatment Plan: Bed Mobility, Education, Functional Activity Francesca, Functional Strength, Group Therapy, Gait, Safety, Therapeutic Exercise, Transfers Treatment Duration: Sep 25, 2020 Frequency: At least 5 of 7 days/Wk (IRF) Estimated Hrs Per Day: 1.5 hours per day Patient and/or Family Agrees t: Yes Safety Risks/Education Patient Education: Transfer Techniques, Issued Written HEP, Correct Positioning, Safety Issues Teaching Recipient: Patient Teaching Methods: Discussion Response to Teaching: Verbalize Understanding Time/GCodes Time In: 1305 Time Out: 1320 Total Billed Treatment Time: 15 Total Billed Treatment 1, NONA (15m) ANAHY ENCARNACION PTA Oct 08, 2020 14:50
--- NOTE | 2020-10-08 15:17 | Progress Note - Cardiology ---
Cardiology SOAP Progress Note Subjective: No cp or palp or syncope No shortness of breath at rest Gen malaise No n/v/d Objective: I&O/Vital Signs 10/08/20 10/08/20 06:37 09:00 Temp 36.1 Pulse 82 Resp 16 B/P (MAP) 115/58 (77) Pulse Ox 95 O2 Delivery Room Air Room Air 10/08/20 00:00 Intake Total 740 ml Output Total 850 ml Balance -110 ml Weight (Pounds): 220 Weight (Ounces): 8.8 Weight (Calculated Kilograms): 100.893225 Constitutional: AAO x 3, well-developed, well-nourished Respiratory: No accessory muscle use, No respiratory distress; chest is bilate rally symmetric, lungs clear to auscultation Cardiovascular: regular rate-rhythm; No JVD; S1 and S2 Gastrointestional: No tender; soft, audible bowel sounds Extremities: no lower extremity edema bilateral Neurologic/Psychiatric: other (left sided hemiparesis) Skin: No rash on exposed areas, No ulcerations on exposed areas A/P: Assessment: Cryptogenic CVA, recieved tPA, still having left sided weakness. 2D echo done 09/09/2020 revealed grade 1 diastolic dysfunction, EF 50-55%, PA 40- 45%, per Dr. Walker CTA Head and neck showed no carotid artery stenosis S/P ILR implant per Dr. Walker Hypertension Hyperlipidemia, maintained on statin Tobaccoism, educated on smoking cessation ETOH use, advise cessation Plan: Continue current cardiac regimen Monitor labs from time to time JOHN MILLER MD FACP [facility] Oct 08, 2020 15:17
--- NOTE | 2020-10-08 16:11 | NUR ---
CM/SS PATIENT CARE CONFERENCE and FINAL DISCHARGE PLANNING Reviewed Summary with patient and with spouse by phone. Both are in agreement to stay on target for discharge tomorrow, October 09, mid-morning. HHC: Will finalize with [facility], they are ready to provide services for RN PT OT. DME: Garry Gil/Bam continues to pursue pre-authorization with patient's commercial insurance for wheelchair and sherrie-walker. Per team members, patient can be sent home with AVCP equipment if necessary and our HH agency can return them to us. Steffany has ramp, tub transfer bench, still waiting on BSC with a tracking drop off of Tuesday. Steffany stated she would get a BSC even if she had to buy another one just to avoid patient disappointment. She is checking through [employer] to see if they can get a loaner. Patient is excited to return home as is his spouse. As a team, we are diligently working to avoid any further delays in his departure due to the mental aspect of potential disappointment.
[2020-10-08 17:40] VITALS: BP 118/59
[2020-10-08] MEDS ORDERED: ASPI325T32 PO (19:38)
[2020-10-08] MEDS ORDERED: NICO1PAT38 TD (19:38)
[2020-10-08] MEDS ORDERED: MAGN400T7 PO (19:38)
[2020-10-08] MEDS ORDERED: ATOR80TA76 PO (19:38)
[2020-10-08] MEDS ORDERED: BACL10TA PO (19:38)
[2020-10-08] MEDS ORDERED: ALLO100T PO (19:38)
[2020-10-08] MEDS ORDERED: MULT1TAB63 PO (19:38)
[2020-10-08] MEDS ORDERED: MIRT-47 PO (19:38)
[2020-10-08] MEDS ORDERED: AMLO-250 PO (19:38)
--- NOTE | 2020-10-08 21:19 | D/C HH Face to Face Order ---
D/C Face to Face Orders Reconcile Patient Problems Problems Reviewed?: Yes Instructions for Patient Via [facility], Patient Instructions/FollowUp: Dr Martínez 2 weeks Physician to follow Patient: Mauricio Discharge Diet for Home: No Restrictions Patient Problems: CVA Patient Data-Allergies,Ht & Wt Patient Allergies: Coded Allergies: No Known Drug Allergies (Unverified , 05/24/19) Height (Feet): 6 Height (Inches): 2.00 Weight (Pounds): 220 Weight (Ounces): 8.8 Home Health Need/Face to Face Date of Face to Face: Oct 08, 2020 Clinical Findings: Instability, Muscle weakness, Unsteady gait, Non-healing wound I have seen Pt hfcx-hb-mjro: Yes Discharged To: Home Diagnosis/Conditions: CVA Patient is Homebound due to: Angel fall risk due to instabilty, Muscle weakness Homebound Status Due to the above stated illness, injury or surgical procedure (medical condition or diagnosis) and associated clinical findings, the patient is homebound because of his/her inability to leave home except with aid of a supportive device and/or person AND leaving the home requires a considerable and taxing effort or is medically contraindicated. Pt req the following assistanc: Walker, Wheelchair Home Health Nursing Orders Home Health Services Order: Nursing Services, Computer Installer-Evaluate & Treat, Physical Therapy-Evaluate & Treat Certify Stmt I certify that this patient is under my care and that I, a nurse practitioner or a physician; a equity sales assistant working with me, had a face to face encounter that - meets the physician face to face encounter requirements with this patient as dated. HARDY MARTÍNEZ DO Oct 08, 2020 21:19
[2020-10-08] MEDS: MELATONIN 3 MG TABLET PO PRN (22:26)
[2020-10-08] MEDS: MIRTAZAPINE 15 MG (REMERON) TAB PO SCH (22:26)
[2020-10-08] MEDS: LORazepam 0.5 MG (ATIVAN) TABLET PO SCH (22:27)
[2020-10-09] MEDS: KCL 10 MEQ TAB (MICRO K) PO SCH (06:54)
[2020-10-09] MEDS: MULTIVIT W/MINERALS TAB (THERAGRAN M) PO SCH (06:54)
[2020-10-09] MEDS: THIAMINE 100 MG (VITAMIN B-1) TAB PO SCH (06:54)
[2020-10-09 06:56] VITALS: BP 118/62
[2020-10-09] MEDS: MAGNESIUM OXIDE (MAG-OX)400 MG TAB PO SCH (09:18)
[2020-10-09] MEDS: amLODIPine 5 MG (NORVASC) TAB PO SCH (09:18)
[2020-10-09] MEDS: ASPIRIN E.C. 325 MG (ECOTRIN) TABLET PO SCH (09:18)
[2020-10-09] MEDS: ATENOLOL 25 MG (TENORMIN) TAB PO SCH (09:18)
[2020-10-09] MEDS: ALLOPURINOL 100 MG (ZYLOPRIM) TAB PO SCH (09:18)
[2020-10-09] MEDS: FOLIC ACID 1 MG TAB PO SCH (09:18)
[2020-10-09] MEDS: NICOTINE PATCH REMOVAL TP SCH (09:20)
[2020-10-09] MEDS: POVIDONE (BETADINE) 10% SOLN 240 ML BTL TOP SCH (09:21)
[2020-10-09] MEDS: NICOTINE 14 MG (NICODERM) PATCH TD SCH (09:21)
[2020-10-09 11:15] VITALS: BP 118/62
--- NOTE | 2020-10-09 11:15 | NUR ---
RAFAKENJI Mckeon II demonstrates understanding of discharge instructions and accurately returns instructions upon questioning. Copy of Post-Discharge Instructions given to PT. RAFAKENJI Mckeon II is able to manage continuing needs after discharge WITH ASSISTANCE OF HOME HEALTH PT/OT AND W/C AND WALKER/CANE SENT HOME WITH PT. UNTIL HIS CAB BE DELIVERED TO HIS HOUSE. Patients belongings returned to PT. Patient discharged from [facility] on 10/09/20 at 11:15. KENJI CRAIG SOTO left floor via W/C, accompanied by STAFF AND PER AUTO.
--- NOTE | 2020-10-09 12:48 | Discharge Summary ---
Diagnosis/Chief Complaint Date of Admission Sep 11, 2020 at 09:41 Date of Discharge Oct 09, 2020 at 11:15 Discharge Date: Oct 09, 2020 Discharge Diagnosis Assessment: Catastrophic CVA with left sided weakness Smoker COPD HTN Gout Neuropathy CRI Alcoholism Depression Anxiety Plan: IRF protocol Pain meds Baclofen Home meds Ativan for etoh withdrawal symptoms 09/12/20: Dysphagia screening Monitor for return of function left weakness 09/13/20: Left leg function a bit today Shower today Monitor closely 09/14/20: BM regimen Turn Q 2hours IRF protocol 09/15/20: Monitor BP Fall risk Monitor dysphagia and aspiration risk 09/16/20: Nicotine patch Monitor aspiration 09/17/20: Left arm improving dramatically No pain reported Improved status 09/18/20: Improved status Loop recorder DC Tely 09/19/20: Monitor closely Loop recorder site is less tender now Fall risk incontinence care 09/20/20: Incontinence care Monitor bowels Therapy to intensify 09/21/20: Monitor incontinence 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 to decrease stack matcher burden 09/22/20: PT OT ST Incontinence 09/23/20: Monitor incontinence Monitor dreams may need to DC Remeron 09/24/20: Monitor incontinence Urinal spilling will need close monitoring 09/25/20: Right knee eval by Dr Huang team Check xrays 09/26/20: Monitor right knee pain Continue aggressive therapy 09/27/20: Incontinence care Right knee pain management 09/28/20: Bladder training Check labs in am 09/29/20: Labs stable IRF protocol Education for today 09/30/20: Incontinence management DC soon Right knee pain management 10/01/20: Allopurinol restarted at his request Right knee pain does not appear to be gout 10/02/20: Monitor incontinence 10/03/20: Right knee pain improved Incontinence management 10/04/20: BM regimen Incontinence 10/05/20: Check labs in am DC soon 10/06/20: Incontinence improved Monitor BP Hold laxatives 10/07/20: Ramp being built Monitor closely Wound care to toe 10/08/20: DC tomorrow (1) Acute CVA (cerebrovascular accident) Status: Acute (2) Left-sided weakness Status: Acute (3) Gout (4) Alcoholism Status: Chronic (5) Ulcer of great toe Status: Acute (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 (7) Hypertension Status: Chronic (8) Neuropathy Status: Chronic (9) Anxiety Status: Chronic (10) COPD (chronic obstructive pulmonary disease) (11) Smoker Status: Chronic Discharge Summary Discharge Physical Examination Allergies: Coded Allergies: No Known Drug Allergies (Unverified , 05/24/19) Vitals & I&Os Vital Signs Date Time Temp Pulse Resp B/P (MAP) Pulse Ox O2 Delivery O2 Flow Rate FiO2 10/09/20 11:15 36.2 56 20 118/62 98 Room Air Hospital Course Was the Problem List Reviewed?: Yes Hospital course: Patient had a very lengthy hospital course for over 1 month after a catastrophic stroke with left-sided weakness impairing significant activities of daily living. He had no decompensation during the hospital stay. [place] catheter was ultimately discontinued and he was able to void normally with Dr. Rodriguez consultation. Bowel regimen maintained with good resolution. Loop recorder was placed to evaluate the source of the cryptogenic stroke. Labs remained stable as did his lungs. Great toe required wound care consult Dr. Christie who is very familiar with him and only conservative management was required. Patient progressed and was able to walk with assistance and a [employer] four-wheel walker in addition to wheelchair mobility. Right knee was injected with steroid by Ortho due to flareup and degenerative arthritis due to overcompensation on the right side. Overall he did very well was able to be discharged home with his who works from home and will have close follow-up with me along with home care. Labs (last 24 hrs) Laboratory Tests 09/11/20 20:46: Glucometer 99 09/12/20 05:24: White Blood Count 8.3, Red Blood Count 4.11L, Hemoglobin 16.2, Hematocrit 46, Mean Corpuscular Volume 111H, Mean Corpuscular Hemoglobin 39H, Mean Corpuscular Hemoglobin Concent 36, Red Cell Distribution Width 13.6, Platelet Count 171, Mean Platelet Volume 10.6, Immature Granulocyte % (Auto) 0, Neutrophils (%) (Auto) 69, Lymphocytes (%) (Auto) 18, Monocytes (%) (Auto) 9, Eosinophils (%) (Auto) 3, Basophils (%) (Auto) 0, Neutrophils # (Auto) 5.7, Lymphocytes # (Auto) 1.5, Monocytes # (Auto) 0.7, Eosinophils # (Auto) 0.3, Basophils # (Auto) 0.0, Immature Granulocyte # (Auto) 0.0, Sodium Level 137, Potassium Level 3.1L, Chloride Level 104, Carbon Dioxide Level 22, Anion Gap 11, Blood Urea Nitrogen 10, Creatinine 0.61, Estimat Glomerular Filtration Rate > 60, BUN/Creatinine Ratio 16, Glucose Level 95, Calcium Level 8.3L, Corrected Calcium 8.7, Total Bilirubin 1.5H, Aspartate Amino Transf (AST/SGOT) 27, Alanine Aminotransferase (ALT/SGPT) 22, Alkaline Phosphatase 113, Total Protein 6.0L, Albumin 3.5 09/15/20 05:40: White Blood Count 9.0, Red Blood Count 4.08L, Hemoglobin 15.9, Hematocrit 46, Mean Corpuscular Volume 112H, Mean Corpuscular Hemoglobin 39H, Mean Corpuscular Hemoglobin Concent 35, Red Cell Distribution Width 13.3, Platelet Count 206, Mean Platelet Volume 10.5, Immature Granulocyte % (Auto) 0, Neutrophils (%) (Auto) 65, Lymphocytes (%) (Auto) 18, Monocytes (%) (Auto) 11, Eosinophils (%) (Auto) 5, Basophils (%) (Auto) 1, Neutrophils # (Auto) 5.8, Lymphocytes # (Auto) 1.6, Monocytes # (Auto) 1.0, Eosinophils # (Auto) 0.5H, Basophils # (Auto) 0.1, Immature Granulocyte # (Auto) 0.0, Sodium Level 138, Potassium Level 3.6, Chloride Level 103, Carbon Dioxide Level 22, Anion Gap 13, Blood Urea Nitrogen 15, Creatinine 0.75, Estimat Glomerular Filtration Rate > 60, BUN/Creatinine Ratio 20, Glucose Level 101, Calcium Level 8.5, Corrected Calcium 8.8, Total Bilirubin 1.0, Aspartate Amino Transf (AST/SGOT) 47H, Alanine Aminotransferase (ALT/SGPT) 35, Alkaline Phosphatase 109, Total Protein 6.2L, Albumin 3.6 09/22/20 04:40: White Blood Count 10.1, Red Blood Count 4.17L, Hemoglobin 16.0, Hematocrit 47, Mean Corpuscular Volume 113H, Mean Corpuscular Hemoglobin 38H, Mean Corpuscular Hemoglobin Concent 34, Red Cell Distribution Width 13.5, Platelet Count 292, Mean Platelet Volume 10.6, Immature Granulocyte % (Auto) 0, Neutrophils (%) (Auto) 62, Lymphocytes (%) (Auto) 21, Monocytes (%) (Auto) 11, Eosinophils (%) (Auto) 5, Basophils (%) (Auto) 1, Neutrophils # (Auto) 6.3, Lymphocytes # (Auto) 2.2, Monocytes # (Auto) 1.1H, Eosinophils # (Auto) 0.5H, Basophils # (Auto) 0.1, Immature Granulocyte # (Auto) 0.0, Sodium Level 137, Potassium Level 4.5, Chloride Level 104, Carbon Dioxide Level 20L, Anion Gap 13, Blood Urea Nitrogen 26H, Creatinine 0.85, Estimat Glomerular Filtration Rate > 60, BUN/Creatinine Ratio 31, Glucose Level 103, Calcium Level 9.3, Corrected Calcium 9.4, Total B ilirubin 0.6, Aspartate Amino Transf (AST/SGOT) 49H, Alanine Aminotransferase (ALT/SGPT) 55, Alkaline Phosphatase 128, Total Protein 7.0, Albumin 3.9 09/29/20 06:04: White Blood Count 8.7, Red Blood Count 4.12L, Hemoglobin 15.7, Hematocrit 46, Mean Corpuscular Volume 112H, Mean Corpuscular Hemoglobin 38H, Mean Corpuscular Hemoglobin Concent 34, Red Cell Distribution Width 13.4, Platelet Count 257, Mean Platelet Volume 10.3, Immature Granulocyte % (Auto) 0, Neutrophils (%) (Auto) 58, Lymphocytes (%) (Auto) 26, Monocytes (%) (Auto) 10, Eosinophils (%) (Auto) 6, Basophils (%) (Auto) 1, Neutrophils # (Auto) 5.0, Lymphocytes # (Auto) 2.2, Monocytes # (Auto) 0.9, Eosinophils # (Auto) 0.5H, Basophils # (Auto) 0.1, Immature Granulocyte # (Auto) 0.0, Sodium Level 140, Potassium Level 4.2, Chloride Level 106, Carbon Dioxide Level 24, Anion Gap 10, Blood Urea Nitrogen 21H, Creatinine 0.92, Estimat Glomerular Filtration Rate > 60, BUN/Creatinine Ratio 23, Glucose Level 94, Calcium Level 8.8, Corrected Calcium 9.0, Total Bilirubin 0.5, Aspartate Amino Transf (AST/SGOT) 42H, Alanine Aminotransferase (ALT/SGPT) 53, Alkaline Phosphatase 131, Total Protein 6.7, Albumin 3.8 10/06/20 05:09: White Blood Count 8.5, Red Blood Count 4.04L, Hemoglobin 15.0, Hematocrit 45, Mean Corpuscular Volume 111H, Mean Corpuscular Hemoglobin 37H, Mean Corpuscular Hemoglobin Concent 33, Red Cell Distribution Width 13.5, Platelet Count 209, Mean Platelet Volume 10.3, Immature Granulocyte % (Auto) 0, Neutrophils (%) (Auto) 57, Lymphocytes (%) (Auto) 26, Monocytes (%) (Auto) 9, Eosinophils (%) (Auto) 6, Basophils (%) (Auto) 1, Neutrophils # (Auto) 4.9, Lymphocytes # (Auto) 2.3, Monocytes # (Auto) 0.8, Eosinophils # (Auto) 0.5H, Basophils # (Auto) 0.1, Immature Granulocyte # (Auto) 0.0, Sodium Level 139, Potassium Level 4.1, Chloride Level 106, Carbon Dioxide Level 21, Anion Gap 12, Blood Urea Nitrogen 20H, Creatinine 0.79, Estimat Glomerular Filtration Rate > 60, BUN/Creatinine Ratio 25, Glucose Level 103, Calcium Level 8.7, Corrected Calcium 8.9, Total Bilirubin 0.6, Aspartate Amino Transf (AST/SGOT) 48H, Alanine Aminotransferase (ALT/SGPT) 72H, Alkaline Phosphatase 136, Total Protein 6.4, Albumin 3.7 Pending Labs Laboratory Tests 09/11/20 20:46: Glucometer 99 09/12/20 05:24: White Blood Count 8.3, Red Blood Count 4.11, Hemoglobin 16.2, Hematocrit 46, Mean Corpuscular Volume 111, Mean Corpuscular Hemoglobin 39, Mean Corpuscular Hemoglobin Concent 36, Red Cell Distribution Width 13.6, Platelet Count 171, Mean Platelet Volume 10.6, Immature Granulocyte % (Auto) 0, Neutrophils (%) (Auto) 69, Lymphocytes (%) (Auto) 18, Monocytes (%) (Auto) 9, Eosinophils (%) (Auto) 3, Basophils (%) (Auto) 0, Neutrophils # (Auto) 5.7, Lymphocytes # (Auto) 1.5, Monocytes # (Auto) 0.7, Eosinophils # (Auto) 0.3, Basophils # (Auto) 0.0, Immature Granulocyte # (Auto) 0.0, Sodium Level 137, Potassium Level 3.1, Chloride Level 104, Carbon Dioxide Level 22, Anion Gap 11, Blood Urea Nitrogen 10, Creatinine 0.61, Estimat Glomerular Filtration Rate > 60, BUN/Creatinine Ra mitchel 16, Glucose Level 95, Calcium Level 8.3, Corrected Calcium 8.7, Total Bilirubin 1.5, Aspartate Amino Transf (AST/SGOT) 27, Alanine Aminotransferase (ALT/SGPT) 22, Alkaline Phosphatase 113, Total Protein 6.0, Albumin 3.5 09/15/20 05:40: White Blood Count 9.0, Red Blood Count 4.08, Hemoglobin 15.9, Hematocrit 46, Mean Corpuscular Volume 112, Mean Corpuscular Hemoglobin 39, Mean Corpuscular Hemoglobin Concent 35, Red Cell Distribution Width 13.3, Platelet Count 206, Mean Platelet Volume 10.5, Immature Granulocyte % (Auto) 0, Neutrophils (%) (Auto) 65, Lymphocytes (%) (Auto) 18, Monocytes (%) (Auto) 11, Eosinophils (%) (Auto) 5, Basophils (%) (Auto) 1, Neutrophils # (Auto) 5.8, Lymphocytes # (Auto) 1.6, Monocytes # (Auto) 1.0, Eosinophils # (Auto) 0.5, Basophils # (Auto) 0.1, Immature Granulocyte # (Auto) 0.0, Sodium Level 138, Potassium Level 3.6, Chloride Level 103, Carbon Dioxide Level 22, Anion Gap 13, Blood Urea Nitrogen 15, Creatinine 0.75, Estimat Glomerular Filtration Rate > 60, BUN/Creatinine Ratio 20, Glucose Level 101, Calcium Level 8.5, Corrected Calcium 8.8, Total Bilirubin 1.0, Aspartate Amino Transf (AST/SGOT) 47, Alanine Aminotransferase (ALT/SGPT) 35, Alkaline Phosphatase 109, Total Protein 6.2, Albumin 3.6 09/22/20 04:40: White Blood Count 10.1, Red Blood Count 4.17, Hemoglobin 16.0, Hematocrit 47, Mean Corpuscular Volume 113, Mean Corpuscular Hemoglobin 38, Mean Corpuscular Hemoglobin Concent 34, Red Cell Distribution Width 13.5, Platelet Count 292, Mean Platelet Volume 10.6, Immature Granulocyte % (Auto) 0, Neutrophils (%) (Auto) 62, Lymphocytes (%) (Auto) 21, Monocytes (%) (Auto) 11, Eosinophils (%) (Auto) 5, Basophils (%) (Auto) 1, Neutrophils # (Auto) 6.3, Lymphocytes # (Auto) 2.2, Monocytes # (Auto) 1.1, Eosinophils # (Auto) 0.5, Basophils # (Auto) 0.1, Immature Granulocyte # (Auto) 0.0, Sodium Level 137, Potassium Level 4.5, Chloride Level 104, Carbon Dioxide Level 20, Anion Gap 13, Blood Urea Nitrogen 26, Creatinine 0.85, Estimat Glomerular Filtration Rate > 60, BUN/Creatinine Ratio 31, Glucose Level 103, Calcium Level 9.3, Corrected Calcium 9.4, Total Bilirubin 0.6, Aspartate Amino Transf (AST/SGOT) 49, Alanine Aminotransferase (ALT/SGPT) 55, Alkaline Phosphatase 128, Total Protein 7.0, Albumin 3.9 09/29/20 06:04: White Blood Count 8.7, Red Blood Count 4.12, Hemoglobin 15.7, Hematocrit 46, Mean Corpuscular Volume 112, Mean Corpuscular Hemoglobin 38, Mean Corpuscular Hemoglobin Concent 34, Red Cell Distribution Width 13.4, Platelet Count 257, Mean Platelet Volume 10.3, Immature Granulocyte % (Auto) 0, Neutrophils (%) (Auto) 58, Lymphocytes (%) (Auto) 26, Monocytes (%) (Auto) 10, Eosinophils (%) (Auto) 6, Basophils (%) (Auto) 1, Neutrophils # (Auto) 5.0, Lymphocytes # (Auto) 2.2, Monocytes # (Auto) 0.9, Eosinophils # (Auto) 0.5, Basophils # (Auto) 0.1, Immature Granulocyte # (Auto) 0.0, Sodium Level 140, Potassium Level 4.2, Chloride Level 106, Carbon Dioxide Level 24, Anion Gap 10, Blood Urea Nitrogen 21, Creatinine 0.92, Estimat Glomerular Filtration Rate > 60, BUN/Creatinine Ratio 23, Glucose Level 94, Calcium Level 8.8, Corrected Calcium 9.0, Total B ilirubin 0.5, Aspartate Amino Transf (AST/SGOT) 42, Alanine Aminotransferase (ALT/SGPT) 53, Alkaline Phosphatase 131, Total Protein 6.7, Albumin 3.8 10/06/20 05:09: White Blood Count 8.5, Red Blood Count 4.04, Hemoglobin 15.0, Hematocrit 45, Mean Corpuscular Volume 111, Mean Corpuscular Hemoglobin 37, Mean Corpuscular Hemoglobin Concent 33, Red Cell Distribution Width 13.5, Platelet Count 209, Mean Platelet Volume 10.3, Immature Granulocyte % (Auto) 0, Neutrophils (%) (Auto) 57, Lymphocytes (%) (Auto) 26, Monocytes (%) (Auto) 9, Eosinophils (%) (Auto) 6, Basophils (%) (Auto) 1, Neutrophils # (Auto) 4.9, Lymphocytes # (Auto) 2.3, Monocytes # (Auto) 0.8, Eosinophils # (Auto) 0.5, Basophils # (Auto) 0.1, Immature Granulocyte # (Auto) 0.0, Sodium Level 139, Potassium Level 4.1, Chloride Level 106, Carbon Dioxide Level 21, Anion Gap 12, Blood Urea Nitrogen 20, Creatinine 0.79, Estimat Glomerular Filtration Rate > 60, BUN/Creatinine Ratio 25, Glucose Level 103, Calcium Level 8.7, Corrected Calcium 8.9, Total Bilirubin 0.6, Aspartate Amino Transf (AST/SGOT) 48, Alanine Aminotransferase (ALT/SGPT) 72, Alkaline Phosphatase 136, Total Protein 6.4, Albumin 3.7 Discussion & Recommendations The patient has a mobility limitation that significantly impairs his/her ability to do one or more mobility-related activities of daily living in the home. The patient's mobility imitation can not be helped solely with a cane or walker. The patient has enough room inside their residence for a wheelchair. The patient can safely use a wheelchair on their own or with the help of a caregiver. Discharge Home Medications: Active Scripts Active Allopurinol 100 Mg Tablet 100 Mg PO BIDPC Thera-M Tablet (Multivits,Ca,Minerals/Iron/FA) 1 Each Tablet 1 Ea PO DAILY@0700 Magnesium Oxide 400 Mg Tablet 400 Mg PO BID WITH MEALS Mirtazapine 15 Mg Tab.rapdis 15 Mg PO HS Aspirin EC (Aspirin) 325 Mg Tablet.dr 325 Mg PO DAILY Nicoderm Cq (Nicotine) 1 Each Patch.td24 14 Mg TD DAILY@0900 Baclofen 10 Mg Tablet 10 Mg PO Q4HR PRN Atorvastatin Calcium 80 Mg Tablet 80 Mg PO DAILY Amlodipine Besylate 5 Mg Tablet 5 Mg PO DAILY Reported Opcon-A Eye Drops (Naphazoline HCl/Pheniramine) 15 Ml Drops 2 Drops OU QID PRN Atenolol 25 Mg Tablet 25 Mg PO DAILY Ativan (Lorazepam) 0.5 Mg Tablet 0.5 Mg PO BID PRN K-Tab ER (Potassium Chloride) 10 Meq Tablet.er 10 Meq PO DAILY Instructions to patient/family Please see electronic discharge instructions given to patient. 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
--- NOTE | 2020-10-09 13:26 | NUR ---
CM/SS DISCHARGE Patient discharged to home, he has been hospitalized since 09/09/20 and very excited to return to his and pet dog. HHC: [facility] RN PT OT DME: Patient was sent home with unit sherrie-walker and wheelchair with cushion. Garry has his equipment which will be delivered to his home as soon as required orders and supportive progress notes re DME are provided to them. Goal is to finalize all transactions tomorrow, [facility] PT staff will return our two assistive devices to the unit. Multiple communications with Garry, spouse, patient, and unit RN for finalization of departure.
--- NOTE | 2020-10-09 14:41 | Therapy Team Discharge Summary ---
Therapy Discharge Summary Discharge Recommendations Date of Discharge Oct 09, 2020 at 11:15 Occupational Therapy Pt admitted to ARU s/p CVA. At PLOF, pt was independent with all ADLS and func tional mobility without AD/AE. Upon evaluation, pt required set up assist with feeding and oral care, total assist showering, mod A upper body dressing, total assist lower body dressing, max A footwear, and total assist toileting. OT txs focus on increasing functional use and neuromuscular reeducation of LUE, increasing independence with ADLS and increasing independence with functional mobility. At discharge, pt was independent with eating and oral care, required CGA showering, set up assist upper body dressing, CGA lower body dressing, SBA footwear, and CGA toileting. AE recommendations include tub transfer bench. Pt made functional progress towards goals, meeting all goals except upper body dressing goal. Pt is discharging from facility on this date, d/c from OT at this time. Decreased Activ Tolerance, Decreased UE Strength, Impaired Funct Balance, Impaired I ADL's, Impaired Self-Care Skills PT Rental Counter Clerk Goals Senior Living Goals PT Senior Living Goals Time Frame: Oct 02, 2020 Roll Left to Right (QC): 6 Sit to Lying (QC): 6 Lying-Sitting on Side/Bed(QC): 6 Sit to Stand (QC): 4 Chair/Uco-sw-Qejmp Xfer(QC): 4 Car Transfer (QC): 4 Does the Patient Walk: No and Walking Goal IS indicated Walk 10 feet (QC): 4 Walk 10ft-Uneven Surface(QC): 4 Walk 50ft with 2 Turns (QC): 4 Walk 150 ft (QC): 4 Wheel 50 feet with 2 turns (QC: 6 1 Step (curb) (QC): 3 4 Steps (QC): 3 12 Steps (QC): 88 Picking up an Object (QC): 4 OT Senior Living Goals Senior Living Goals Time Frame: Oct 03, 2020 Eating (QC): 6 (met) Oral Hygiene (QC): 6 (met) Shower/Bathe Self (QC): 4 (met, CGA) Upper Body Dressing (QC): 6 (not met, set up) Lower Body Dressing (QC): 4 (met, CGA) On/Off Footwear (QC): 4 (met, SBA) Toileting Hygiene (QC): 4 (met, CGA) Toilet/Commode Transfer (QC): 4 (met, CGA) Additional Goals: 1-Demonstrate ADL Tasks, 2-Verbalize Understanding, 3- ImproveStrength/Francesca 1=Demonstrate adherence to instructed precautions during ADL tasks. 2=Patient will verbalize/demonstrate understanding of assistive devices/modifications for ADL. 3=Patient will improve strength/tolerance for activity to enable patient to perform ADL's. Speech Rental Counter Clerk Goals Rental Counter Clerk Goals Patient will improve cognitive and speech abilities in order to effectively meet his daily needs with minimal assist. WILFREDO CORLEY OT Oct 09, 2020 14:41
--- NOTE | 2020-10-09 14:53 | Therapy Team Discharge Summary ---
Therapy Discharge Summary Discharge Recommendations Date of Discharge Oct 09, 2020 at 11:15 Physical Therapy Patient came to rehab following a CVA. Upon evalutation patient performed bed mobility and supine <-> sit min assist, sit <-> stand min assist, transfers max assist, WC 150' with min assist. Patient has been performing bed mobility and transfer training, balance and endurance training, functional strengthening, stair training, gait training, and education. Patient has made fair progress and has met all of his mcfp goals. Now, patient performs bed mobility and supine <-> sit with independence, sit <-> stand with setup, transfers and car transfer with CGA, ambulates 150' with a hemiwalker with CGA (including 50' with at least 2 turns of 90 degrees and 10' over an uneven surface), can cotton picking machine operator an object from the floor with independence (using a it web development consultant), and can go up and down 4 steps using 1 handrail with CGA. Patient has been discharged from this facility today and will be discharged from PT at this time. Occupational Therapy Decreased Activ Tolerance, Decreased UE Strength, Impaired Funct Balance, Impaired I ADL's, Impaired Self-Care Skills PT Fpc Goals Fpc Goals PT Fpc Goals Time Frame: Oct 02, 2020 Roll Left to Right (QC): 6 Sit to Lying (QC): 6 Lying-Sitting on Side/Bed(QC): 6 Sit to Stand (QC): 4 Chair/Nnr-qm-Bcjlf Xfer(QC): 4 Car Transfer (QC): 4 Does the Patient Walk: No and Walking Goal IS indicated Walk 10 feet (QC): 4 Walk 10ft-Uneven Surface(QC): 4 Walk 50ft with 2 Turns (QC): 4 Walk 150 ft (QC): 4 Wheel 50 feet with 2 turns (QC: 6 1 Step (curb) (QC): 3 4 Steps (QC): 3 12 Steps (QC): 88 Picking up an Object (QC): 4 OT Fpc Goals Fpc Goals Time Frame: Oct 03, 2020 Eating (QC): 6 (met) Oral Hygiene (QC): 6 (met) Shower/Bathe Self (QC): 4 (met, CGA) Upper Body Dressing (QC): 6 (not met, set up) Lower Body Dressing (QC): 4 (met, CGA) On/Off Footwear (QC): 4 (met, SBA) Toileting Hygiene (QC): 4 (met, CGA) Toilet/Commode Transfer (QC): 4 (met, CGA) Additional Goals: 1-Demonstrate ADL Tasks, 2-Verbalize Understanding, 3- ImproveStrength/Francesca 1=Demonstrate adherence to instructed precautions during ADL tasks. 2=Patient will verbalize/demonstrate understanding of assistive devices/modifications for ADL. 3=Patient will improve strength/tolerance for activity to enable patient to perform ADL's. Speech Fpc Goals Account Associate Goals Patient will improve cognitive and speech abilities in order to effectively meet his daily needs with minimal assist. KRISTINE HAWK PT Oct 09, 2020 14:53
== END 2020-10-09 11:15 | disposition home health service (06) | DRG 57 ==
PROVIDERS: ADMIT Internal Medicine; ATTEND Internal Medicine
DX: I69.354 Hemiplegia and hemiparesis following cerebral infarction affecting left non-dominant side (principal); I69.392 Facial weakness following cerebral infarction; J43.9 Emphysema, unspecified; I12.9 Hypertensive chronic kidney disease with stage 1 through stage 4 chronic kidney disease, or unspecified chronic kidney disease; N18.9 Chronic kidney disease, unspecified; K58.0 Irritable bowel syndrome with diarrhea; F41.9 Anxiety disorder, unspecified; F32.9 Major depressive disorder, single episode, unspecified; M10.9 Gout, unspecified; F10.20 Alcohol dependence, uncomplicated; G62.9 Polyneuropathy, unspecified; L97.519 Non-pressure chronic ulcer of other part of right foot with unspecified severity; F17.210 Nicotine dependence, cigarettes, uncomplicated; R32 Unspecified urinary incontinence; R15.9 Full incontinence of feces; M17.11 Unilateral primary osteoarthritis, right knee; E78.5 Hyperlipidemia, unspecified
CPT/HCPCS: 36415; 73562; 80053; 82962; 85025; 85027

== ENCOUNTER → 2020-09-17 | Day surgery (SDC) | payer BC ==
[~2020-09-17] MED LIST changes: -ALPRAZolam 0.25 MG (XANAX) TAB PO PRN; +ASPI325T32 PO; +BACL10TA PO; -BISACODYL 10 MG SUPP (DULCOLAX) PR PRN; -DOCUSATE SODIUM 100 MG (COLACE) CAP PO PRN; -DOCUSATE SODIUM 100 MG (COLACE) CAP PO SCH; -FLEET ENEMA ADULT 1 EA BTL PR PRN; -LACTULOSE SYRUP 10GM/15ML (ENULOSE) 30ML UDC PO PRN; -LOPERAMIDE 2 MG (IMODIUM) TABLET PO PRN; +MAGN400T7 PO; +MIRT-47 PO; +MULT1TAB63 PO; +NICO1PAT38 TD; -ONDANSETRON 4 MG (ZOFRAN) ORAL DISSOLVE TAB PO PRN; -diphenhydrAMINE 25 MG TAB (BENADRYL) PO PRN; -guaiFENesin/CODEINE (ROBITUSSIN AC) 10ML UDC PO PRN
== END ==
LOC: CATH 13:50
PROVIDERS: ATTEND Internal Medicine Cardiovascular Disease
DX: G45.9 Transient cerebral ischemic attack, unspecified (principal); I10 Essential (primary) hypertension; E78.5 Hyperlipidemia, unspecified; F17.210 Nicotine dependence, cigarettes, uncomplicated; Z79.899 Other long term (current) drug therapy
CPT/HCPCS: 33285; C1764

== ENCOUNTER → 2020-10-15 | Outpatient (CLI) | payer BC | LOC: WOUNDCARE 09:16 | PROVIDERS: ATTEND Surgery | DX: L84 Corns and callosities (principal); G60.8 Other hereditary and idiopathic neuropathies; I69.852 Hemiplegia and hemiparesis following other cerebrovascular disease affecting left dominant side | CPT/HCPCS: 99213 ==

== ENCOUNTER → 2020-10-23 | Outpatient (CLI) | payer BC | LOC: WOUNDCARE 10:29 | PROVIDERS: ATTEND Surgery | DX: L84 Corns and callosities (principal); G60.8 Other hereditary and idiopathic neuropathies; I69.952 Hemiplegia and hemiparesis following unspecified cerebrovascular disease affecting left dominant side | CPT/HCPCS: 99212 ==

== ENCOUNTER 2021-02-09 13:06 | Outpatient (RCR) | payer BC | END 2021-02-10 | disposition home or self-care (01) | PROVIDERS: ATTEND Internal Medicine | DX: I69.359 Hemiplegia and hemiparesis following cerebral infarction affecting unspecified side (principal); F10.20 Alcohol dependence, uncomplicated; Z72.0 Tobacco use ==

== ENCOUNTER → 2021-03-31 | Outpatient (CLI) | payer BC | LOC: WOUNDCARE 13:22 | PROVIDERS: ATTEND Surgery | DX: L97.522 Non-pressure chronic ulcer of other part of left foot with fat layer exposed (principal); I63.541 Cerebral infarction due to unspecified occlusion or stenosis of right cerebellar artery; S91.202A Unspecified open wound of left great toe with damage to nail, initial encounter | CPT/HCPCS: 99213 ==

== ENCOUNTER → 2021-04-14 | Outpatient (CLI) | payer BC | LOC: WOUNDCARE 12:52 | PROVIDERS: ATTEND Surgery | DX: I87.323 Chronic venous hypertension (idiopathic) with inflammation of bilateral lower extremity (principal); L97.522 Non-pressure chronic ulcer of other part of left foot with fat layer exposed; I63.541 Cerebral infarction due to unspecified occlusion or stenosis of right cerebellar artery | CPT/HCPCS: 99212 ==

== ENCOUNTER 2021-05-11 14:21 | Outpatient (RCR) | payer BC | END 2021-05-13 | disposition home or self-care (01) | PROVIDERS: ATTEND Internal Medicine | DX: I69.359 Hemiplegia and hemiparesis following cerebral infarction affecting unspecified side (principal) ==

== ENCOUNTER 2021-07-07 13:00 | Outpatient (RCR) | payer BC | END 2021-07-07 15:19 | disposition home or self-care (01) | PROVIDERS: ATTEND Internal Medicine | DX: I69.352 Hemiplegia and hemiparesis following cerebral infarction affecting left dominant side (principal); I10 Essential (primary) hypertension; G62.9 Polyneuropathy, unspecified; F10.20 Alcohol dependence, uncomplicated; Z72.0 Tobacco use ==

== ENCOUNTER → 2021-07-20 | Outpatient (CLI) | payer BC ==
[2021-07-20 11:20] LABS: BASOPHILS # (AUTO) 0.1 10^3/uL (0.0-0.1); BASOPHILS % (AUTO) 1 % (0-10); EOSINOPHILS # (AUTO) 0.2 10^3/uL (0.0-0.3); EOSINOPHILS % (AUTO) 2 % (0-10); HEMATOCRIT 48 % (40-54); HEMOGLOBIN 16.8 g/dL (13.3-17.7); LYMPHOCYTES # (AUTO) 1.5 10^3/uL (1.0-4.0); LYMPHOCYTES % (AUTO) 17 % (12-44); MEAN CORPUSCULAR HEMOGLOBIN 35 pg (25-34); MEAN CORPUSCULAR HGB CONC 35 g/dL (32-36); MEAN CORPUSCULAR VOLUME 100 fL (80-99); MEAN PLATELET VOLUME 9.5 fL (9.0-12.2); MONOCYTES # (AUTO) 0.6 10^3/uL (0.0-1.0); MONOCYTES % (AUTO) 7 % (0-12); NEUTROPHILS # (AUTO) 6.3 10^3/uL (1.8-7.8); NEUTROPHILS % (AUTO) 73 % (42-75); PLATELET COUNT 217 10^3/uL (130-400); WHITE BLOOD COUNT 8.6 10^3/uL (4.3-11.0)
[2021-07-20 11:28] LABS: ALBUMIN 4.1 GM/DL (3.2-4.5)
[2021-07-20 11:29] LABS: POTASSIUM 3.7 MMOL/L (3.6-5.0)
[2021-07-20 11:30] LABS: CALCIUM 9.5 MG/DL (8.5-10.1)
[2021-07-20 11:31] LABS: TOTAL PROTEIN 7.8 GM/DL (6.4-8.2)
[2021-07-20 11:33] LABS: BILIRUBIN,TOTAL 1.2 MG/DL (0.1-1.0)
[2021-07-20 11:35] LABS: CREATININE SERUM 0.7 MG/DL (0.60-1.30)
== END ==
LOC: LAB 11:03
PROVIDERS: ATTEND Surgery
DX: I87.333 Chronic venous hypertension (idiopathic) with ulcer and inflammation of bilateral lower extremity (principal); I89.0 Lymphedema, not elsewhere classified; L97.212 Non-pressure chronic ulcer of right calf with fat layer exposed; L97.222 Non-pressure chronic ulcer of left calf with fat layer exposed; G60.8 Other hereditary and idiopathic neuropathies
CPT/HCPCS: 36415; 80053; 85025

== ENCOUNTER → 2021-07-20 | Outpatient (CLI) | payer BC | LOC: WOUNDCARE 09:22 | PROVIDERS: ATTEND Surgery | DX: I87.333 Chronic venous hypertension (idiopathic) with ulcer and inflammation of bilateral lower extremity (principal); I89.0 Lymphedema, not elsewhere classified; L97.211 Non-pressure chronic ulcer of right calf limited to breakdown of skin; L97.221 Non-pressure chronic ulcer of left calf limited to breakdown of skin; G60.8 Other hereditary and idiopathic neuropathies | CPT/HCPCS: 97597; 97598; G0463 ==

== ENCOUNTER → 2021-07-27 | Outpatient (CLI) | payer BC | LOC: WOUNDCARE 12:30 | PROVIDERS: ATTEND Surgery | DX: I87.333 Chronic venous hypertension (idiopathic) with ulcer and inflammation of bilateral lower extremity (principal); I96 Gangrene, not elsewhere classified; I89.0 Lymphedema, not elsewhere classified; L97.211 Non-pressure chronic ulcer of right calf limited to breakdown of skin; L97.221 Non-pressure chronic ulcer of left calf limited to breakdown of skin; G60.8 Other hereditary and idiopathic neuropathies | CPT/HCPCS: 99213 ==

== ENCOUNTER → 2021-08-03 | Outpatient (CLI) | payer BC | LOC: WOUNDCARE 12:32 | PROVIDERS: ATTEND Surgery | DX: I87.332 Chronic venous hypertension (idiopathic) with ulcer and inflammation of left lower extremity (principal); I96 Gangrene, not elsewhere classified; I89.0 Lymphedema, not elsewhere classified; L97.211 Non-pressure chronic ulcer of right calf limited to breakdown of skin; L97.221 Non-pressure chronic ulcer of left calf limited to breakdown of skin; G60.8 Other hereditary and idiopathic neuropathies | CPT/HCPCS: 29580; A6454; A6456; G0463 ==

== ENCOUNTER → 2021-08-10 | Outpatient (CLI) | payer BC | LOC: WOUNDCARE 12:30 | PROVIDERS: ATTEND Surgery | DX: I87.333 Chronic venous hypertension (idiopathic) with ulcer and inflammation of bilateral lower extremity (principal); I96 Gangrene, not elsewhere classified; I89.0 Lymphedema, not elsewhere classified; L97.211 Non-pressure chronic ulcer of right calf limited to breakdown of skin; L97.221 Non-pressure chronic ulcer of left calf limited to breakdown of skin; G60.8 Other hereditary and idiopathic neuropathies | CPT/HCPCS: 29580; A6454; A6456; G0463 ==

== ENCOUNTER → 2021-08-17 | Outpatient (CLI) | payer BC | LOC: WOUNDCARE 12:28 | PROVIDERS: ATTEND Surgery | DX: I87.333 Chronic venous hypertension (idiopathic) with ulcer and inflammation of bilateral lower extremity (principal); I89.0 Lymphedema, not elsewhere classified; L97.221 Non-pressure chronic ulcer of left calf limited to breakdown of skin; L97.211 Non-pressure chronic ulcer of right calf limited to breakdown of skin; G60.8 Other hereditary and idiopathic neuropathies | CPT/HCPCS: 99212 ==

== ENCOUNTER → 2021-09-17 | Outpatient (CLI) | payer BC | LOC: WOUNDCARE 14:01 | PROVIDERS: ATTEND Family Medicine | DX: I89.0 Lymphedema, not elsewhere classified (principal); I96 Gangrene, not elsewhere classified; G60.8 Other hereditary and idiopathic neuropathies; L97.512 Non-pressure chronic ulcer of other part of right foot with fat layer exposed; L03.115 Cellulitis of right lower limb | CPT/HCPCS: A6197; G0463; 99212 ==

== ENCOUNTER → 2021-09-24 | Outpatient (CLI) | payer BC | LOC: WOUNDCARE 12:26 | PROVIDERS: ATTEND Family Medicine | DX: I89.0 Lymphedema, not elsewhere classified (principal); I96 Gangrene, not elsewhere classified; G60.8 Other hereditary and idiopathic neuropathies; L97.512 Non-pressure chronic ulcer of other part of right foot with fat layer exposed; L03.115 Cellulitis of right lower limb; L03.116 Cellulitis of left lower limb; I87.333 Chronic venous hypertension (idiopathic) with ulcer and inflammation of bilateral lower extremity | CPT/HCPCS: 11042; 11045; A6197; G0463 ==

== ENCOUNTER → 2021-09-28 | Outpatient (CLI) | payer BC | LOC: WOUNDCARE 12:59 | PROVIDERS: ATTEND Family Medicine | DX: I89.0 Lymphedema, not elsewhere classified (principal); I96 Gangrene, not elsewhere classified; G60.8 Other hereditary and idiopathic neuropathies; L97.512 Non-pressure chronic ulcer of other part of right foot with fat layer exposed; L03.116 Cellulitis of left lower limb; L03.115 Cellulitis of right lower limb; I87.333 Chronic venous hypertension (idiopathic) with ulcer and inflammation of bilateral lower extremity; S81.812A Laceration without foreign body, left lower leg, initial encounter | CPT/HCPCS: 11042; 11045; G0463 ==

== ENCOUNTER 2021-10-06 11:22 | Outpatient (RCR) | payer BC | END 2021-10-07 | disposition home or self-care (01) | PROVIDERS: ATTEND Internal Medicine | DX: I69.352 Hemiplegia and hemiparesis following cerebral infarction affecting left dominant side (principal) ==

== ENCOUNTER → 2021-10-12 | Outpatient (CLI) | payer BC | LOC: WOUNDCARE 13:06 | PROVIDERS: ATTEND Family Medicine | DX: I89.0 Lymphedema, not elsewhere classified (principal); G60.8 Other hereditary and idiopathic neuropathies; L97.512 Non-pressure chronic ulcer of other part of right foot with fat layer exposed; I87.313 Chronic venous hypertension (idiopathic) with ulcer of bilateral lower extremity; S81.812A Laceration without foreign body, left lower leg, initial encounter | CPT/HCPCS: 11042; G0463 ==

== ENCOUNTER 2021-10-15 11:16 | Outpatient (RCR) | payer BC | END 2021-10-27 10:25 | disposition home or self-care (01) | PROVIDERS: ATTEND Internal Medicine | DX: I69.352 Hemiplegia and hemiparesis following cerebral infarction affecting left dominant side (principal); I10 Essential (primary) hypertension ==

== ENCOUNTER → 2021-10-19 | Outpatient (CLI) | payer BC | LOC: WOUNDCARE 13:10 | PROVIDERS: ATTEND Family Medicine | DX: I89.0 Lymphedema, not elsewhere classified (principal); G60.8 Other hereditary and idiopathic neuropathies; L97.512 Non-pressure chronic ulcer of other part of right foot with fat layer exposed; I87.313 Chronic venous hypertension (idiopathic) with ulcer of bilateral lower extremity; L97.321 Non-pressure chronic ulcer of left ankle limited to breakdown of skin; L03.116 Cellulitis of left lower limb; L03.115 Cellulitis of right lower limb; I96 Gangrene, not elsewhere classified | CPT/HCPCS: 11042; G0463 ==

== ENCOUNTER → 2021-10-26 | Outpatient (CLI) | payer BC | LOC: WOUNDCARE 13:10 | PROVIDERS: ATTEND Family Medicine | DX: I89.0 Lymphedema, not elsewhere classified (principal); G60.8 Other hereditary and idiopathic neuropathies; L97.512 Non-pressure chronic ulcer of other part of right foot with fat layer exposed; I87.313 Chronic venous hypertension (idiopathic) with ulcer of bilateral lower extremity; L97.321 Non-pressure chronic ulcer of left ankle limited to breakdown of skin; L03.116 Cellulitis of left lower limb; L03.115 Cellulitis of right lower limb; L97.311 Non-pressure chronic ulcer of right ankle limited to breakdown of skin; I96 Gangrene, not elsewhere classified | CPT/HCPCS: 29581; A6197; G0463 ==

== ENCOUNTER → 2021-11-02 | Outpatient (CLI) | payer BC | LOC: WOUNDCARE 13:07 | PROVIDERS: ATTEND Family Medicine | DX: I89.0 Lymphedema, not elsewhere classified (principal); G60.8 Other hereditary and idiopathic neuropathies; I87.313 Chronic venous hypertension (idiopathic) with ulcer of bilateral lower extremity; L97.311 Non-pressure chronic ulcer of right ankle limited to breakdown of skin | CPT/HCPCS: A6197; G0463; 99212 ==

== ENCOUNTER → 2021-11-09 | Outpatient (CLI) | payer BC | LOC: WOUNDCARE 13:09 | PROVIDERS: ATTEND Family Medicine | DX: I89.0 Lymphedema, not elsewhere classified (principal); G60.8 Other hereditary and idiopathic neuropathies; I87.313 Chronic venous hypertension (idiopathic) with ulcer of bilateral lower extremity; L97.311 Non-pressure chronic ulcer of right ankle limited to breakdown of skin; I96 Gangrene, not elsewhere classified | CPT/HCPCS: 29581; A6197; G0463 ==

== ENCOUNTER → 2021-11-16 | Outpatient (CLI) | payer BC | LOC: WOUNDCARE 13:23 | PROVIDERS: ATTEND Family Medicine | DX: I89.0 Lymphedema, not elsewhere classified (principal); G60.8 Other hereditary and idiopathic neuropathies; I87.313 Chronic venous hypertension (idiopathic) with ulcer of bilateral lower extremity; L97.311 Non-pressure chronic ulcer of right ankle limited to breakdown of skin | CPT/HCPCS: 29581; A6197; G0463 ==

== ENCOUNTER → 2021-11-23 | Outpatient (CLI) | payer BC | LOC: WOUNDCARE 13:04 | PROVIDERS: ATTEND Family Medicine | DX: I89.0 Lymphedema, not elsewhere classified (principal); G60.8 Other hereditary and idiopathic neuropathies; I87.333 Chronic venous hypertension (idiopathic) with ulcer and inflammation of bilateral lower extremity; L97.311 Non-pressure chronic ulcer of right ankle limited to breakdown of skin | CPT/HCPCS: 99212 ==

== ENCOUNTER 2022-01-24 14:33 | Inpatient (IN) | payer BC ==
[~2022-01-24] VITALS: Ht 183 cm; Wt 102.0 kg
[2022-01-24] MEDS ORDERED: morphine INJ 10 MG/ML 1ML (SYR OR VIAL) IVP STA ×3 (15:18→17:14)
--- NOTE | 2022-01-24 15:26 | ED Fall/Injury ---
General Chief Complaint: Trauma-Non Activation Stated Complaint: FALL/LEG PAIN Nursing Triage Note: PT BROUGHT IN BY [facility] FROM HOME WITH RIB PAIN AFTER FALL. PT STATES HES FALLEN TWICE IN THE LAST TWO DAYS. Source: patient Exam Limitations: no limitations History of Present Illness Date Seen by Provider: Jan 24, 2022 Time Seen by Provider: 15:23 Initial Comments He did no nausea to ER by [facility] with reports of left sided chest wall pain, left shoulder pain. This began after he fell last night. He states that he tripped over a blanket. He denies hitting his head. Pain is worsened by deep breathing. He does drink rum about 4 glasses per day. Occurred: yesterday Severity: moderate Injuries/Pain Location: chest (None) Context: tripped Loss of Consciousness: no loss of consciousness Associated Symptoms (Fall): Denies Symptoms Allergies and Home Medications Allergies Coded Allergies: Sulfa (Sulfonamide Antibiotics) (Verified Allergy, Unknown, 01/24/22) Uncoded Allergies: SULFA (Allergy, Unknown, 01/24/22) Patient Home Medication List Home Medication List Reviewed: Yes Allopurinol (Allopurinol) 100 Mg Tablet, 100 MG PO BIDPC Prescribed by: HARDY CAMPBELL on 10/08/201937 Amlodipine Besylate (Amlodipine Besylate) 5 Mg Tablet, 5 MG PO DAILY Prescribed by: HARDY CAMBPELL on 10/08/201937 Aspirin (Aspirin EC) 325 Mg Tablet.dr, 325 MG PO DAILY Prescribed by: HARDY CAMPBELL on 10/08/201937 Atenolol (Atenolol) 25 Mg Tablet, 25 MG PO DAILY, (Reported) Entered as Reported by: AVA BELTRÁN on 09/09/201525 Atorvastatin Calcium (Atorvastatin Calcium) 80 Mg Tablet, 80 MG PO DAILY Prescribed by: HARDY CAMPBELL on 10/08/201937 Baclofen (Baclofen) 10 Mg Tablet, 10 MG PO Q4HR PRN for MUSCLE SPASMS Prescribed by: HARDY CAMPBELL on 10/08/201937 Lorazepam (Ativan) 0.5 Mg Tablet, 0.5 MG PO BID PRN for ANXIETY, (Reported) Entered as Reported by: AVA BELTRÁN on 09/09/20 152 Magnesium Oxide (Magnesium Oxide) 400 Mg Tablet, 400 MG PO BID WITH MEALS Prescribed by: HARDY CAMPBELL on 10/08/201937 Mirtazapine (Mirtazapine) 15 Mg Tab.rapdis, 15 MG PO HS Prescribed by: HARDY CAMPBELL on 10/08/201937 Multivits,Ca,Minerals/Iron/FA (Thera-M Tablet) 1 Each Tablet, 1 EA PO DAILY@0700 Prescribed by: HARDY CAMPBELL on 10/08/201937 Naphazoline HCl/Pheniramine (Opcon-A Eye Drops) 15 Ml Drops, 2 DROPS OU QID PRN for EYE REDNESS, (Reported) Entered as Reported by: AVA BELTRÁN on 09/09/201525 Nicotine (Nicoderm Cq) 1 Each Patch.td24, 14 MG TD DAILY@0900 Prescribed by: HARDY CAMPBELL on 10/08/201937 Potassium Chloride (K-Tab ER) 10 Meq Tablet.er, 10 MEQ PO DAILY, (Reported) Entered as Reported by: AVA BELTRÁN on 09/09/201525 Review of Systems Review of Systems Constitutional: see HPI Eyes: No Symptoms Reported Ears, Nose, Mouth, Throat: no symptoms reported Respiratory: no symptoms reported Cardiovascular: no symptoms reported Genitourinary: no symptoms reported Musculoskeletal: no symptoms reported Skin: no symptoms reported Psychiatric/Neurological: No Symptoms Reported Past Hhopzjc-Vinnrk-Hkvdml Hx Patient Social History Tobacco Use?: No Smoking Status: Former Smoker Substance use?: No Alcohol Frequency: Daily Pt feels they are or have been: No Immunizations Up To Date PED Vaccines UTD: Yes Influenza Vaccine Up-to-Date: Yes; Up-to-Date First/Initial COVID19 Vaccinat: 2020 Second COVID19 Vaccination Tiburcio: 2020 Third COVID19 Vaccination Date: 2020 Seasonal Allergies Seasonal Allergies: Yes Past Medical History Surgeries: Yes (20 YEARS AGO TUMOR REMOVED ( NON CANCER ) ON BLADDER) Respiratory: No Currently Using CPAP: No Currently Using BIPAP: No Cardiac: Yes (MITRAL VALVE PROLAPSE) Hypertension Neurological: Yes Neuropathy, Stroke Sexually Transmitted Disease: No HIV/AIDS: No Genitourinary: No Renal Failure Gastrointestinal: Yes (IBS) Chronic Diarrhea, Irritable Bowel Musculoskeletal: Yes Gout Endocrine: No HEENT: Yes Hearing Impairment: Hard of Hearing Cancer: No Psychosocial: Yes (Alcohol dependence) Anxiety, Depression Integumentary: Yes (currently being treated by wound care for wound on R foot) Blood Disorders: No Adverse Reaction/Blood Tranf: No Family Medical History FH: neuropathy 19 MOTHER Mitral valve prolapse 19 MOTHER 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/Hx Physical Exam Vital Signs Vital Signs - First Documented 01/24/22 14:34 Pulse 81 Resp 16 B/P (MAP) 106/84 (91) Pulse Ox 98 O2 Delivery Room Air Capillary Refill : Less Than 3 Seconds Height, Weight, BMI Height: 6'2.00" Weight: 220lbs. 8.8oz. 100.473257lq; 27.00 BMI Method:Stated General Appearance: WD/WN, no apparent distress, other (Unkempt, covered in cat hair. Venous stasis dermatitis right ankle. His right sock has been soaked in urine. Bilateral lower extremity edema. Chronically ill, appears older than stated age) Neck: non-tender, full range of motion Cardiovascular: regular rate, rhythm, no murmur Respiratory: no respiratory distress, no accessory muscle use Gastrointestinal: normal bowel sounds, soft, tenderness (Minimal tenderness left upper abdomen, he is not sure if it is the abdomen is tender with the lower ribs) Extremities: normal range of motion, non-tender Neurologic/Psychiatric: alert, normal mood/affect, oriented x 3 [place] Coma Score Best Eye Response: (4) Open Spontaneously Best Verbal Response: (5) Oriented Best Motor Response: (6) Obeys Commands [place] Total: 15 Progress/Results/Core Measures Results/Orders Lab Results Laboratory Tests Test 01/24/22 15:20 Range/Units White Blood Count 15.9 H 4.3-11.0 10^3/uL Red Blood Count 3.18 L 4.30-5.52 10^6/uL Hemoglobin 13.0 L 13.3-17.7 g/dL Hematocrit 37 L 40-54 % Mean Corpuscular Volume 115 H 80-99 fL Mean Corpuscular Hemoglobin 41 H 25-34 pg Mean Corpuscular Hemoglobin Concent 36 32-36 g/dL Red Cell Distribution Width 13.2 10.0-14.5 % Platelet Count 257 130-400 10^3/uL Mean Platelet Volume 10.5 9.0-12.2 fL Immature Granulocyte % (Auto) 1 % Neutrophils (%) (Auto) 84 H 42-75 % Lymphocytes (%) (Auto) 9 L 12-44 % Monocytes (%) (Auto) 6 0-12 % Eosinophils (%) (Auto) 0 0-10 % Basophils (%) (Auto) 0 0-10 % Neutrophils # (Auto) 13.3 H 1.8-7.8 10^3/uL Lymphocytes # (Auto) 1.4 1.0-4.0 10^3/uL Monocytes # (Auto) 1.0 0.0-1.0 10^3/uL Eosinophils # (Auto) 0.1 0.0-0.3 10^3/uL Basophils # (Auto) 0.1 0.0-0.1 10^3/uL Immature Granulocyte # (Auto) 0.1 0.0-0.1 10^3/uL Neutrophils % (Manual) 85 % Lymphocytes % (Manual) 7 % Monocytes % (Manual) 8 % Eosinophils % (Manual) 0 % Basophils % (Manual) 0 % Band Neutrophils 0 % Macrocytosis MODERATE Prothrombin Time 13.6 12.2-14.7 SEC INR Comment 1.0 0.8-1.4 Sodium Level 138 135-145 MMOL/L Potassium Level 4.3 3.6-5.0 MMOL/L Chloride Level 104 98-107 MMOL/L Carbon Dioxide Level 16 L 21-32 MMOL/L Anion Gap 18 H 5-14 MMOL/L Blood Urea Nitrogen 10 7-18 MG/DL Creatinine 0.88 0.60-1.30 MG/DL Estimat Glomerular Filtration Rate 99 BUN/Creatinine Ratio 11 Glucose Level 152 H 70-105 MG/DL Calcium Level 8.8 8.5-10.1 MG/DL Corrected Calcium 9.3 8.5-10.1 MG/DL Total Bilirubin 1.6 H 0.1-1.0 MG/DL Aspartate Amino Transf (AST/SGOT) 95 H 5-34 U/L Alanine Aminotransferase (ALT/SGPT) 39 0-55 U/L Alkaline Phosphatase 150 H 40-136 U/L Total Protein 6.5 6.4-8.2 GM/DL Albumin 3.4 3.2-4.5 GM/DL Serum Alcohol < 10 <10 MG/DL My Orders Orders - IRIS HERNANDEZ APRN Alcohol (01/24/22 15:05) Cbc With Automated Diff (01/24/22 15:05) Comprehensive Metabolic Panel (01/24/22 15:05) Protime With Inr (01/24/22 15:05) Ct Head/Cervical Spine Wo (01/24/22 15:05) Ct Chest/Abdomen/Pelvis W (01/24/22 15:18) Morphine Injection (Morphine Injection (01/24/22 15:18) Iohexol Injection (Omnipaque 350 Mg/Ml 1 (01/24/22 15:30) Received Contrast (Hold Metformin- Contr (01/24/22 15:30) Ns (Ivpb) (Sodium Chloride 0.9% Ivpb Bag (01/24/22 15:30) Manual Differential (01/24/22 15:20) Morphine Injection (Morphine Injection (01/24/22 15:52) Morphine Injection (Morphine Injection (01/24/22 15:54) Lactated Ringers (Lr 1000 Ml Iv Solution (01/24/22 16:15) Red Cells Leukocytes Reduced (01/24/22 16:30) Type And Screen (01/24/22 16:30) Morphine Injection (Morphine Injection (01/24/22 17:14) Lorazepam Injection (Ativan Injection) (01/24/22 17:15) Ed Admission (Communication) (01/24/22 17:15) Medications Given in ED Current Medications Medications Dose Ordered Sig/Honey Route Start Time Stop Time Status Last Admin Dose Admin Iohexol 100 ml ONCE ONCE IV 01/24/22 15:30 01/24/22 15:31 DC 01/24/22 16:34 100 ML Sodium Chloride 100 ml ONCE ONCE IV 01/24/22 15:30 01/24/22 15:31 DC 01/24/22 16:35 80 ML Vital Signs/I&O 01/24/22 14:34 Pulse 81 Resp 16 B/P (MAP) 106/84 (91) Pulse Ox 98 O2 Delivery Room Air Blood Pressure Mean: 91 Departure Communication (Admissions) 1710-spoke with Dr. BALDERAS after speaking with the radiologist who called to report a grade 3 splenic laceration with a small to moderate amount of hemoperitoneum. Patient is neither tachycardic nor hypotensive. I will type and cross for 2 units of packed red cells. Spoke with Dr. BALDERAS will admit, bedrest, pain and nausea control. Impression Primary Impression: Spleen laceration Additional Impression: Alcoholism Disposition: 09 ADMITTED INPATIENT Condition: Stable Admissions Decision to Admit Reason: Admit from ER (Trauma) Decision to Admit/Date: Jan 24, 2022 Time/Decision to Admit Time: 17:11 Departure-Patient Inst. Referrals: HRADY CAMPBELL DO (PCP/Family) Primary Care Physician IRIS HERNANDEZ APRN Jan 24, 2022 15:26
[2022-01-24 15:28] LABS: BASOPHILS # (AUTO) 0.1 10^3/uL (0.0-0.1); BASOPHILS % (AUTO) 0 % (0-10); EOSINOPHILS # (AUTO) 0.1 10^3/uL (0.0-0.3); EOSINOPHILS % (AUTO) 0 % (0-10); HEMATOCRIT 37 % (40-54); LYMPHOCYTES # (AUTO) 1.4 10^3/uL (1.0-4.0); LYMPHOCYTES % (AUTO) 9 % (12-44); MEAN CORPUSCULAR HEMOGLOBIN 41 pg (25-34); MEAN CORPUSCULAR HGB CONC 36 g/dL (32-36); MEAN CORPUSCULAR VOLUME 115 fL (80-99); MEAN PLATELET VOLUME 10.5 fL (9.0-12.2); MONOCYTES % (AUTO) 6 % (0-12); NEUTROPHILS # (AUTO) 13.3 10^3/uL (1.8-7.8); NEUTROPHILS % (AUTO) 84 % (42-75); PLATELET COUNT 257 10^3/uL (130-400); WHITE BLOOD COUNT 15.9 10^3/uL (4.3-11.0)
[2022-01-24] MEDS ORDERED: NS 100 ML (IVPB) BAG IV ONE (15:30)
[2022-01-24] MEDS ORDERED: HOLD METFORMIN - RECEIVED CONTRAST 20 ML VIAL IV SCH (15:30)
[2022-01-24] MEDS ORDERED: IOHEXOL 350 MG/ML 100 ML (OMNIPAQUE 350) VIAL IV ONE (15:30)
[2022-01-24 15:38] LABS: ALBUMIN 3.4 GM/DL (3.2-4.5); CHLORIDE 104 MMOL/L (98-107); POTASSIUM 4.3 MMOL/L (3.6-5.0); SODIUM 138 MMOL/L (135-145)
[2022-01-24 15:39] LABS: CALCIUM 8.8 MG/DL (8.5-10.1)
[2022-01-24 15:40] LABS: GLUCOSE 152 MG/DL (70-105); TOTAL PROTEIN 6.5 GM/DL (6.4-8.2)
[2022-01-24 15:41] LABS: CARBON DIOXIDE 16 MMOL/L (21-32)
[2022-01-24 15:42] LABS: BILIRUBIN,TOTAL 1.6 MG/DL (0.1-1.0); PROTHROMBIN TIME PATIENT 13.6 SEC (12.2-14.7)
[2022-01-24 15:44] LABS: ALKALINE PHOSPHATASE 150 U/L (40-136); CREATININE SERUM 0.88 MG/DL (0.60-1.30); GFR ESTIMATED 99
[2022-01-24 15:45] LABS: BUN/CREATININE RATIO 11
[2022-01-24 15:47] LABS: ALANINE AMINOTRANSFERASE 39 U/L (0-55)
[2022-01-24] MEDS ORDERED: morphine INJ 10 MG/ML 1ML (SYR OR VIAL) ONE (15:54)
[2022-01-24] MEDS ORDERED: LACTATED RINGERS 1,000 ML IV SCH ×2 (16:15→17:30)
[2022-01-24 16:37] LABS: BAND NEUTROPHILS 0 %; BASOPHILS % (MANUAL) 0 %; EOSINOPHILS % (MANUAL) 0 %; LYMPHOCYTES % (MANUAL) 7 %; MONOCYTES % (MANUAL) 8 %; NEUTROPHILS % (MANUAL) 85 %
--- NOTE | 2022-01-24 16:51 | Diagnostic Imaging Report ---
PROCEDURE: CT head and CT cervical spine without contrast. TECHNIQUE: Multiple contiguous axial images were obtained through the brain and cervical spine without the use of intravenous contrast. Sagittal and coronal reformations through the cervical spine were then performed. Auto Exposure Controls were utilized during the CT exam to meet ALARA standards for radiation dose reduction. INDICATION: Fall, pain. COMPARISON: 09/10/2020 and 09/09/2020. FINDINGS: Moderate atrophy for age. Temporal evolution of a chronic lacunar infarction within the right basal ganglia. No intracranial hemorrhage. No intracranial mass, mass effect, midline shift, herniation, hydrocephalus or extra-axial fluid collection. No CT evidence of an acute ischemic infarction. The orbits are unremarkable. Calcific versus metallic density within the left frontal scalp, stable from the prior exam. The calvarium and extracalvarial soft tissues are otherwise unremarkable. The paranasal sinuses are clear besides a mucous retention cyst within the right maxillary sinus. Alignment of the cervical spine is well maintained. Alignment of the atlantooccipital joint is well maintained. Vertebral body heights are well maintained. Mild multilevel disc space height loss, greatest at T1/T2. No acute fracture or dislocation. No destructive osseous process. Scattered facet joint degenerative changes and uncovertebral joint hypertrophy. There is moderate bilateral neural foraminal stenosis at C3/C4 and C4/C5 with at least mild central canal stenosis present at C4/C5. Moderate bilateral neuroforaminal stenosis at C5/C6 with mild central canal stenosis. Additional central canal and neuroforaminal stenosis at C6/C7. No apical pneumothorax. Mild vascular calcifications. Paraspinal soft tissues are otherwise unremarkable. IMPRESSION: 1. No acute intracranial abnormality with moderate atrophy and background chronic ischemic changes, as above. 2. No acute osseous abnormality within the cervical spine with moderate multilevel degenerative changes. Dictated by: Dictated on workstation # [id number]
[2022-01-24] MEDS: LORazepam INJ 2 MG/ML (ATIVAN) VIAL IVP PRN (17:29)
[2022-01-24] MEDS ORDERED: THIAMINE 100 MG (VITAMIN B-1) TAB PO ONE (17:45)
[2022-01-24] MEDS ORDERED: D5 1/2 NS 1000 ML IV SOLUTION 1,000 ML IV PRN (17:45)
[2022-01-24] MEDS ORDERED: ACETAMINOPHEN 325 MG TABLET PO PRN (17:45)
[2022-01-24] MEDS ORDERED: LACTULOSE SYRUP 10GM/15ML (ENULOSE) 30ML UDC PO PRN (17:45)
[2022-01-24] MEDS ORDERED: FOLIC ACID 1 MG TAB PO ONE (17:45)
[2022-01-24] MEDS ORDERED: MELATONIN 3 MG TABLET PO PRN (17:45)
[2022-01-24] MEDS ORDERED: LORazepam 1 MG (ATIVAN) TAB PO PRN (17:45)
[2022-01-24] MEDS ORDERED: MULTIVIT W/MINERALS TAB (THERAGRAN M) PO ONE (17:45)
[2022-01-24] MEDS ORDERED: morphine IMMEDIATE RELEASE 15 MG TABLET PO PRN (17:45)
[2022-01-24] MEDS ORDERED: diphenhydrAMINE 25 MG TAB (BENADRYL) PO PRN (17:45)
[2022-01-24] MEDS ORDERED: PATIENT MAY USE OWN MEDS, ALL PO SCH (17:45)
[2022-01-24] MEDS ORDERED: ANTACID SUSP 30 ML UDC (MYLANTA) PO PRN (17:45)
[2022-01-24] MEDS ORDERED: diphenhydrAMINE 50 MG/ML INJ (BENADRYL) IVP PRN (17:45)
[2022-01-24] MEDS ORDERED: morphine INJ 4 MG/ML 1 ML (VIAL/SYRINGE) IV PRN (17:45)
[2022-01-24] MEDS ORDERED: MILK OF MAGNESIA 400 MG/5 ML 30 ML UDC PO PRN (17:45)
[2022-01-24] MEDS ORDERED: LORazepam INJ 2 MG/ML (ATIVAN) VIAL IM/IV PRN (17:45)
[2022-01-24] MEDS ORDERED: ONDANSETRON 4 MG (ZOFRAN) ORAL DISSOLVE TAB PO PRN (17:45)
[2022-01-24] MEDS ORDERED: LORazepam INJ 2 MG/ML (ATIVAN) VIAL IV PRN (17:45)
[2022-01-24] MEDS ORDERED: BISACODYL 10 MG SUPP (DULCOLAX) PR PRN (17:45)
[2022-01-24] MEDS ORDERED: CALCIUM CARBONATE 500 MG (TUMS) TAB.CHEW PO PRN (17:45)
[2022-01-24] MEDS ORDERED: ONDANSETRON 4 MG/2 ML (SDV) Z0FRAN IV PRN (17:45)
[2022-01-24] MEDS ORDERED: polyethylene glycoL POWDER 17 GM (MIRALAX) PACK PO PRN (17:45)
[2022-01-24] MEDS ORDERED: 1/2 NS IV SOLUTION 1,000 ML IV PRN (17:45)
--- NOTE | 2022-01-24 17:52 | Diagnostic Imaging Report ---
PROCEDURE: CT chest, abdomen, and pelvis with contrast. TECHNIQUE: Multiple contiguous axial images were obtained through the chest, abdomen, and pelvis after the administration of intravenous contrast. Auto Exposure Controls were utilized during the CT exam to meet ALARA standards for radiation dose reduction. INDICATION: 61-year-old male, fall with chest and abdominal pain. CORRELATION STUDY: CT chest 07/27/2019. FINDINGS: CT CHEST: Heart size within normal lives. No pericardial effusion. Thoracic aorta is unremarkable. No significant mediastinal hematoma. Small hiatal hernia. Lung causey are without evidence for infiltrate, effusion, pneumothorax or significant pulmonary contusion. Electronic device over the left chest. There is diffuse thin bridging throughout the thoracic spine suggesting ankylosing spondylitis. No acute appearing compression fracture. The ribs and sternum appear to be intact. CT ABDOMEN and PELVIS: There is a small laceration at the posterior aspect of the spleen. There is rather prominent subscapular hematoma with mixed densities. This area of hemorrhage measures approximately 13.4 x 9.6 x 13.0 cm. While the majority of the subcapsular hematoma is along the superior lateral aspect, there appears to be near circumferential covering of the spleen with some compression of the spleen. There is retroperitoneal extension of the blood into the left pelvis. Additionally, there is fluid along the right paracolic gutter. Small amount of perihepatic fluid is present. The liver demonstrates small cyst in the medial right lobe but is otherwise intact without acute traumatic abnormality. There is a heterogeneous appearance about the liver with suggestion of nodular contour which may be reflective of underlying chronic liver disease. Gallbladder is distended and contains multiple gallstones. No bile ductal dilatation. Pancreas and adrenal glands are unremarkable. Kidneys with probable left renal cyst otherwise unremarkable. Abdominal aorta normal in contour. A few shotty aortocaval lymph nodes. Inferior vena cava is somewhat collapsed. There is presence of blood within the pelvis. Urinary bladder decompressed with prostate gland maintained. Nondisplaced to minimally displaced left posterolateral 10th, 11th and 12th rib fractures. Diffuse bridging ossified throughout the thoracic and lumbar spine. Curvilinear sclerotic lesions of bilateral femoral heads compatible with osteonecrosis. No significant volume loss. IMPRESSION: CT CHEST: 1. Negative for acute traumatic abnormality of the chest. CT ABDOMEN and PELVIS: 1. Splenic laceration with rather sizable subcapsular hematoma. Additionally, there is presence of an abdominal and pelvic hemoperitoneum (grade 3). 2. Findings suspect for intravascular volume depletion. 3. Nondisplaced to minimally displaced left posterolateral 10th, 11th and 12th rib fractures. 4. Suspect for potential chronic liver disease. Gallbladder distention with multiple gallstones. Critical findings Telephone call made to Orient ROCÍO, Pola Holman APRN at 4:50 PM. Dictated by: Dictated on workstation # [id number]
--- NOTE | 2022-01-24 18:26 | Tele-ICU Progress Note ---
Subjective Date Seen by a Provider: Jan 24, 2022 Time Seen by a Provider: 18:00 Subjective/Events-last exam This virtual visit was conducted using real time audio/video. Thank you for asking us to see this patient for fall w splenic laceration, L sided 10-12 non displaced rib fractures. PMH: Gout, HTN, HL, CVA, neuropathy, IBS, anx., dep. SH: smoking history: former. FH: Non-contributory ROS: as in HPI PE: VSS. O2 sat 98% on RA HEENT: No obvious masses, adenopathy or JVD. Chest: clear to auscultation. CV: RRR S1 S2 No murmur or added sounds. Abd: Bowel sounds Y. : Unremarkable. [place] N. ROCK SINGER/psychiatric: Grossly intact. No obvious focal findings. Extremities1+ edema. Capillary refill < 3 seconds. Skin: unremarkable. Results: Elevated WCC 15.9, BG 152. Decreased Hb 13.0. CTC clear lung causey, Ribs 1-12 on L with non displaced rib #s, splenic laceration. . Available chart/ vitals / labs / images reviewed. Video assessment done using teleICU camera, rest of exam as per RN. A/P: Monitor for increasing oxygenation needs and/or need for intubation. Critical Care: critically ill patient. Cont. IVF, PRN narcotics. Pt typed and matched for 2 Units PRBCs. Discussed with LEEROY Hidalgo.. Asked RN to reach out to eICU if any questions or concerns later. Time spent with patient/coordination of care with other health professionals (mins): 25 Sepsis Event Evaluation Height, Weight, BMI Height: 6'2.00" Weight: 220lbs. 8.8oz. 100.060035nf; 27.00 BMI Method:Stated Exam Exam Patient acknowledged, consented, and participated in this virtual visit which was conducted using real time audio/video Vital Signs Date Time Temp Pulse Resp B/P (MAP) Pulse Ox O2 Delivery O2 Flow Rate FiO2 01/24/22 17:45 81 16 106/84 98 Room Air 01/24/22 14:34 81 16 106/84 (91) 98 Room Air Height & Weight Height: 6'2.00" Weight: 220lbs. 8.8oz. 100.035960by; 27.00 BMI Method:Stated General Appearance: No Apparent Distress Capillary Refill: Less Than 3 Seconds Peripheral Pulses: 1+ Dorsalis Pedis (R), 1+ Left Dors-Pedis (L) (See free text.) Gastrointestinal: normal bowel sounds, soft, tenderness (Minimal tenderness left upper abdomen, he is not sure if it is the abdomen is tender with the lower ribs) Results Lab Laboratory Tests 01/24/22 15:20 Assessment/Plan Assessment/Plan See free text. Critical Care: Critically Ill Patient TEE DELGADO MD Jan 24, 2022 18:26
[2022-01-24 19:01] VITALS: BP 126/88
[2022-01-24] MEDS: NS IV 1000 ML 1,000 ML IV SCH (19:01)
[2022-01-24] MEDS ORDERED: RT-ALBUTEROL/IPRATROPIUM 3 ML (DUONEB) VIAL INH PRN (19:30)
[2022-01-24] MEDS: MAGNESIUM OXIDE (MAG-OX)400 MG TAB PO SCH (20:52)
[2022-01-24] MEDS: SENNOSIDES 8.6 MG (SENOKOT) TAB PO SCH (20:53)
[2022-01-24] MEDS: DOCUSATE SODIUM 100 MG (COLACE) CAP PO SCH (20:53)
--- NOTE | 2022-01-24 21:44 | CONSULTATION REPORT ---
DATE OF SERVICE: 01/24/2022 ATTENDING PRIMARY CARE PHYSICIAN: Romana Martínez DO HISTORY OF PRESENT ILLNESS: The patient is a 61-year-old male, who was brought to [facility] Emergency Department by EMS after a same level fall that occurred the night before. He reported left chest wall pain as well as left shoulder pain. He does not report hitting his head as well as no loss of consciousness. He does drink approximately 4 alcoholic beverages on a daily basis. CT scan of the head and cervical spine did not show any abnormalities; however, CT scan of the chest, abdomen and pelvis did show a splenic laceration with subcapsular hematoma and no active blush. There are also nondisplaced posterolateral fractures of ribs 10, 11 and 12. At this time, he is awake and alert. No focal deficits with a [place] coma scale of 15. PAST MEDICAL HISTORY: Mitral valve prolapse, neuropathy, stroke, renal failure, irritable bowel syndrome, gout, alcohol dependence, hearing loss. PAST SURGICAL HISTORY: Lesion removed from the bladder, which was benign. ALLERGIES: SULFA. MEDICATIONS: Allopurinol 100 mg b.i.d., amlodipine 5 mg daily, aspirin 325 mg daily, atenolol 25 mg daily, atorvastatin 80 mg daily, baclofen 10 mg q.4 hours p.r.n., lorazepam 0.5 mg p.r.n., magnesium 400 mg b.i.d., mirtazapine 15 mg daily, nicotine patch q.24 hours, potassium 10 mEq daily. SOCIAL HISTORY: Previous smoker, drinks approximately 4 drinks daily. FAMILY HISTORY: Noncontributory. VITAL SIGNS: Blood pressure 126/88, pulse 98, respirations 13, pulse ox 97% on 2 liters nasal cannula. REVIEW OF SYSTEMS: GENERAL: A well-nourished male currently in no acute distress. He is not experiencing any shortness of breath or difficulty in breathing; however, does have some left-sided chest pain upon inspiration. No flail segments. No crepitance. HEART: Regular, no murmurs. EXTREMITIES: No lower extremity edema, negative Homans sign. No step-offs or deformities. HEENT: No scleral icterus. NECK: No cervical lymphadenopathy, no neck pain. ABDOMEN: Soft, nondistended. There is a mild pain in the left upper abdominal quadrant. SKIN: Warm, dry. LABORATORY DATA: WBC 15.9, hemoglobin 13.0, hematocrit 37, platelets 257. BUN 10, creatinine 0.88. ASSESSMENT AND PLAN: A 61-year-old male involved in a same level fall with left lateral rib fractures 10 through 12 as well as a grade II to III splenic laceration with subcapsular hematoma, no active blush or bleeding. An incidental finding on the CT scan was cholelithiasis. Due to the splenic laceration, we will admit him and continue with observation. We will monitor his hemoglobin and hematocrit and also repeat a CT scan with IV contrast tomorrow to identify any changes or any ongoing bleeding. Long-term, he will need to refrain from any strenuous activities, falls, or contact sports for the next six weeks. Job ID: [id number] DocumentID: [id number] Dictated Date: 01/24/2022 21:22:07 Acting Teacher Date: 01/24/2022 21:43:49 Dictated By: QAMAR BALDERAS MD MTDD
[2022-01-24 22:08] LABS: HEMOGLOBIN 12.1 g/dL (13.3-17.7)
[2022-01-25 04:47] LABS: BASOPHILS # (AUTO) 0.1 10^3/uL (0.0-0.1); BASOPHILS % (AUTO) 1 % (0-10); EOSINOPHILS % (AUTO) 0 % (0-10); HEMATOCRIT 31 % (40-54); HEMOGLOBIN 10.6 g/dL (13.3-17.7); LYMPHOCYTES % (AUTO) 14 % (12-44); MEAN CORPUSCULAR HEMOGLOBIN 40 pg (25-34); MEAN CORPUSCULAR HGB CONC 34 g/dL (32-36); MEAN CORPUSCULAR VOLUME 115 fL (80-99); MEAN PLATELET VOLUME 10.3 fL (9.0-12.2); MONOCYTES # (AUTO) 1.6 10^3/uL (0.0-1.0); MONOCYTES % (AUTO) 11 % (0-12); NEUTROPHILS # (AUTO) 11.1 10^3/uL (1.8-7.8); NEUTROPHILS % (AUTO) 75 % (42-75); PLATELET COUNT 210 10^3/uL (130-400); WHITE BLOOD COUNT 14.9 10^3/uL (4.3-11.0)
[2022-01-25 05:00] LABS: ALBUMIN 2.9 GM/DL (3.2-4.5); POTASSIUM 4.6 MMOL/L (3.6-5.0)
[2022-01-25 05:01] LABS: CALCIUM 8.2 MG/DL (8.5-10.1)
[2022-01-25 05:02] LABS: TOTAL PROTEIN 5.5 GM/DL (6.4-8.2)
[2022-01-25 05:04] LABS: BILIRUBIN,TOTAL 1.3 MG/DL (0.1-1.0)
[2022-01-25 05:06] LABS: CREATININE SERUM 0.93 MG/DL (0.60-1.30); PHOSPHORUS 3.6 MG/DL (2.3-4.7)
[2022-01-25 05:09] LABS: MAGNESIUM 1.4 MG/DL (1.6-2.4)
[2022-01-25] MEDS: POTASSIUM CL 10MEQ/50ML IVPB 50 ML IV SCH (06:03)
[2022-01-25] MEDS: KCL 20 MEQ TAB (K-DUR) PO SCH (06:04)
[2022-01-25] MEDS: MULTIVIT W/MINERALS TAB (THERAGRAN M) PO SCH (06:04)
[2022-01-25] MEDS: MAGNESIUM 1 GM/100 ML IVPB 100 ML IV SCH ×3 (06:04→08:13)
[2022-01-25] MEDS: THIAMINE 100 MG (VITAMIN B-1) TAB PO SCH (06:04)
[2022-01-25] MEDS: PANTOPRAZOLE 40 MG (PROTONIX) VIAL IV SCH ×2 (08:13→20:00)
[2022-01-25] MEDS: FOLIC ACID 1 MG TAB PO SCH (08:13)
[2022-01-25] MEDS: MAGNESIUM OXIDE (MAG-OX)400 MG TAB PO SCH ×2 (08:13→20:00)
[2022-01-25] MEDS: DOCUSATE SODIUM 100 MG (COLACE) CAP PO SCH ×2 (08:55→20:00)
[2022-01-25] MEDS: SENNOSIDES 8.6 MG (SENOKOT) TAB PO SCH ×2 (08:55→20:00)
[2022-01-25] MEDS ORDERED: IOHEXOL 350 MG/ML 100 ML (OMNIPAQUE 350) VIAL IV ONE (09:30)
[2022-01-25] MEDS ORDERED: HOLD METFORMIN - RECEIVED CONTRAST 20 ML VIAL IV SCH (09:30)
[2022-01-25] MEDS ORDERED: NS 100 ML (IVPB) BAG IV ONE (09:30)
--- NOTE | 2022-01-25 09:57 | Tele-ICU Progress Note ---
Subjective Date Seen by a Provider: Jan 25, 2022 Time Seen by a Provider: 08:17 Subjective/Events-last exam Video assessment done using teleICU camera, rest of exam as per RN Discussed with RN , EXAM PER RN Events overnight : Afebrile FiO2 - I/O = Drips: Pressors: , hemodynamically stable Consultants: [facility] Hospital course: (01/24) 61/M- FALL, SPLENIC LAC, RIB FX, HGB STABLE AT 13, ETOH HX. A/P grade II to III splenic laceration with subcapsular hematoma - sx consulted - repeated CT pensing - as per SX - Hb slowly trending down - follow left lateral rib fractures 10 through 12 ( no PRX on CT) - on 2 l o2 now - pain control - IS ETOH use- 1 pint a day - last 01/23 - vitamins , CIWA Lines : perip (Central Line Necessity Reviewed) [place]: void OG: Nutrition: Analgesia: Anxiety/ delirium VTE Prophylaxis: scd Stress Ulcer Prophylaxis: ppi Glycemic Control: Plans in collaboration with bedside consultants and IM MDs. Discussed with RN to reach out if any questions or concerns A total of 31 minutes of critical care time was devoted to this patient today, required to treat and/or prevent further deterioration of critical care condition ( as above) . Sepsis Event Evaluation Height, Weight, BMI Height: 6'2.00" Weight: 220lbs. 8.8oz. 100.259764po; 29.77 BMI Method:Stated Exam Exam Patient acknowledged, consented, and participated in this virtual visit which was conducted using real time audio/video Vital Signs Date Time Temp Pulse Resp B/P (MAP) Pulse Ox O2 Delivery O2 Flow Rate FiO2 01/25/22 08:00 95 Nasal Cannula 3.00 01/25/22 07:00 36.4 01/25/22 07:00 113 01/25/22 07:00 106 8 101/71 95 Nasal Cannula 2.00 01/25/22 06:00 113 10 120/79 94 Nasal Cannula 2.00 01/25/22 05:00 115 13 104/69 94 Nasal Cannula 2.00 01/25/22 04:00 97 Nasal Cannula 3.00 01/25/22 04:00 106 9 142/98 95 Nasal Cannula 2.00 01/25/22 03:00 115 10 96/72 95 Nasal Cannula 2.00 01/25/22 02:00 103 19 109/79 99 Nasal Cannula 2.00 01/25/22 01:00 101 01/25/22 01:00 105 28 94/77 98 Nasal Cannula 2.00 01/25/22 00:00 97 Nasal Cannula 3.00 01/25/22 00:00 103 24 110/66 100 Nasal Cannula 2.00 01/24/22 23:00 107 26 91/75 99 Nasal Cannula 2.00 01/24/22 22:00 113 35 134/82 96 Nasal Cannula 2.00 01/24/22 21:00 123 10 99/85 94 Nasal Cannula 2.00 01/24/22 20:00 97 Nasal Cannula 3.00 01/24/22 20:00 102 21 124/92 97 Nasal Cannula 2.00 01/24/22 19:01 101 97 01/24/22 19:00 98 01/24/22 19:00 98 26 120/79 95 Nasal Cannula 2.00 01/24/22 18:43 97 Nasal Cannula 3.00 01/24/22 18:00 101 13 126/88 97 Nasal Cannula 2.00 01/24/22 17:58 108 01/24/22 17:45 140/90 01/24/22 17:45 81 16 106/84 98 Room Air 01/24/22 14:34 81 16 106/84 (91) 98 Room Air l I & O 01/25/22 07:00 Intake Total 1400 ml Output Total 400 ml Balance 1000 ml Height & Weight Height: 6'2.00" Weight: 220lbs. 8.8oz. 100.154734as; 29.77 BMI Method:Stated General Appearance: No Apparent Distress Capillary Refill: Less Than 3 Seconds Peripheral Pulses: 1+ Dorsalis Pedis (R), 1+ Left Dors-Pedis (L) (See free text.) Gastrointestinal: normal bowel sounds, soft, tenderness (Minimal tenderness left upper abdomen, he is not sure if it is the abdomen is tender with the lower ribs) Results Lab Laboratory Tests 01/24/22 15:20 01/24/22 21:58 01/25/22 04:38 Assessment/Plan Assessment/Plan . NAZARIO SHANE MD Jan 25, 2022 09:57
[2022-01-25] MEDS ORDERED: HYDROmorphone 2 MG/ML VIAL (DILAUDID) IV PRN (10:00)
[2022-01-25] MEDS ORDERED: NS IV 1000 ML 1,000 ML IV SCH (10:15)
[2022-01-25] MEDS ORDERED: MGX400T PO (10:15)
[2022-01-25] MEDS ORDERED: IBUP200C11 PO (10:15)
[2022-01-25] MEDS ORDERED: BACL10TA PO (10:15)
[2022-01-25] MEDS ORDERED: ACET-2267 PO (10:15)
[2022-01-25] MEDS ORDERED: POTA-160 PO (10:16)
--- NOTE | 2022-01-25 10:25 | Physical Therapy Progress Note ---
Therapy Progress Note Patient on Hold per RN due to possible surgical intervention. Will continue to monitor patient status and initiate treatment when patient is medically stable. JENNA OWUSU PT Jan 25, 2022 10:25
--- NOTE | 2022-01-25 10:41 | Diagnostic Imaging Report ---
EXAMINATION: CT abdomen and pelvis with and without intravenous contrast. TECHNIQUE: Precontrast acquisitions were acquired through the abdomen and pelvis. Multiple contiguous axial images were obtained through the abdomen and pelvis after the administration of intravenous contrast. All CT scans use one or more of the following dose optimizing techniques: automated exposure control, MA and/or KvP adjustment based on patient size and exam type or iterative reconstruction. HISTORY: Splenic laceration. COMPARISON: 01/24/2022. FINDINGS: Lung bases: Trace bilateral pleural effusions with adjacent atelectasis or consolidation in the lung bases. Solid organs: Diffuse hypoattenuation of the liver which can be seen with hepatic steatosis. Cholelithiasis with likely vicarious excretion of contrast. There is no biliary ductal dilation. Pancreas is normal. Stable size and appearance of a left perisplenic hematoma measuring up to 13.7 x 10.0 cm. Stable appearance of the splenic laceration measuring up to 2 cm. Adrenal glands are normal. A left renal cyst is present and requires no followup. Nonobstructing bilateral renal calculi measuring up to 0.9 cm. No hydronephrosis. Bowel: The stomach and small bowel are normal without obstruction. There is diffuse wall thickening and fatty appearance of the colon wall which may be secondary to chronic inflammation. Peritoneum: There is redemonstrated hyperdense fluid within the upper abdomen and pelvis, compatible with blood products. No suspicious lymphadenopathy. Vasculature: Calcification of the aorta without aneurysm. Musculoskeletal: Degenerative changes of the spine without suspicious osseous lesion or compression fracture. Redemonstrated left rib fractures. Pelvis: The prostate gland is normal. The urinary bladder is normal. IMPRESSION: 1. Stable left perisplenic hematoma and laceration. 2. Persistent hyperdense fluid within the abdomen and pelvis, likely blood products. 3. Hepatic steatosis. 4. Bilateral pleural effusions with adjacent atelectasis or consolidation. Dictated by: Dictated on workstation # [id number]
[2022-01-25 10:54] LABS: HEMOGLOBIN 9.4 g/dL (13.3-17.7)
--- NOTE | 2022-01-25 11:23 | Occupational Therapy Eval ---
OT Evaluation-General/PLF Medical Diagnosis Admission Date Jan 24, 2022 at 17:16 Medical Diagnosis: spleen laceration Onset Date: Jan 24, 2022 Therapy Diagnosis Therapy Diagnosis: decreased ADL status, decreased coordination Height/Weight Height (Feet): 6 Height (Inches): 2.00 Weight (Pounds): 220 Weight (Ounces): 8.8 Precautions Precautions/Isolations: Fall Prevention, Standard Precautions Referral Physician: Mauricio Referral Reason: Evaluation/Treatment Medical History Pertinent Medical History: Alcoholism, HTN, Neuropathy Additional Medical History mitral valve prolapse, neuropathy, CVA, renal failure, IBS, GOUT, alcohol dependence (4 glasses of rum a day) Current History EMS from home wtih rib pain after fall, pt has fallen twice in the last 2 days. Xray revealed Left 10-12 rib fxs. Imaging also revealed spleen laceration. Social History Home: Single Level Current Living Status: Spouse Entry Into Home: Ramp, Stairs With Railing Steps Into Home: 2 ADL-Prior Level of Function SCALE: Activities may be completed with or without assistive devices. 7-Zafmpfxjso-ycrlwlb completes the activity by him/herself with no assistance f rom a helper. 5-Set-up or Clean-up Assistance-helper sets up or cleans up; patient completes activity. Dousman assists only prior to or following the activity. 4-Supervision or Touching Assistance-helper provides verbal cues and/or touching/steadying and/or contact guard assistance as patient completes activity. Assistance may be provided throughout the activity or intermittently. 3-Partial/Moderate Assistance-helper does LESS THAN HALF the effort. Dousman lifts, holds or supports trunk or limbs, but provides less than half the effort. 2-Substantial/Maximal Assistance-helper does MORE THAN HALF the effort. Dousman lifts or holds trunk or limbs and provides more than half the effort. 9-Uualfzqay-tsjfup does ALL the effort. Patient does none of the effort to complete the activity. Or, the assistance of 2 or more helpers is required for the patient to complete the activity. If activity was not attempted, code reason: 7-Patient Refused. 9-Not Applicable-not attempted and the patient did not perform the activity before the current illness, exacerbation or injury. 10-Not Attempted due to Environmental Limitations-(lack of equipment, weather restraints, etc.). 88-Not Attempted due to Medical Conditions or Safety Concerns. ADL PLOF Comments Pt reports IND with ADLs and functional mobility. He has no used any AD recently, and is able to complete self care tasks independently. Pt has a tub/shower with a SC and GBS. Self Care: Independent Functional Cognition: Independent DME/Equipment: Bath Chair, Grab Bars, Tub/Shower OT Current Status Subjective Pt in bed, present. Pt's nurse states pt OK to be seen at bed level, as pt may be having surgical intervention for spleen laceration. Mental Status/Objective Patient Orientation: Person, Place, Time, Situation Attachments: IV, Oxygen Current Hand Dominance: Right Upper Extremity ROM RUE WFL LUE shoulder flexion to approx 70 degrees (reports increased pain), WFL elbow, WFL wrist, decreased finger flexion/extension. Upper Extremity Coordination decreased LUE, pt has difficulty with making full fist and difficulty fully extending fingers. Upper Extremity Sensation tingling/numbness bilateral fingertips. Upper Extremity Strength LUE not formally tested due to pain, grossly 3/5, RUE WFL. ADL-Treatment Eating (QC): 5 (Per clinical judgment, pt able to use RUE for task. Pt NPO at time of eval.) Oral Hygiene (QC): 7 Other Treatments Pt laying in bed, present. Pt and provide information about PLOF and home set up, and pt participates in UE screen. Pt educated on exercises to complete with LUE in order to increase motion, strength and coordination, he completed the following LUE: shoulder flexion (to pain tolerance) x3 reps, elbow flexion/extension x5 reps, wrist flexion/extension x5 reps, and finger flexion/extension x10 reps. Pt encouraged to perform bill board poster squeezes often, and informed pt he can grasp the bed sheets for a little resistance. OT informed pt and on OT POC including increasing coordination/functional use of LUE, and increasing safety and independence with ADLs and functional mobility after pt is able to perform OOB activities, they verbalize understanding. OT assisted pt with positioning LUE to comfort with pillow, and education to leave arm straight due to IV positioning. OT also provided pt with oral moisturizer and sponge to use due to dry mouth and NPO. Post tx, pt in bed, call light in reach and all needs met. Education OT Patient Education: Correct positioning, Energy conservation, Exercise program, Modified ADL techniques, Progress toward Goal/Update tx plan, Purpose of tx/functional activities, Rehab process Teaching Recipient: Patient Teaching Methods: Discussion Response to Teaching: Verbalize Understanding OT [facility]ci Goals Medical Insurance Collector Goals Time Frame: Feb 05, 2022 Eating (QC): 6 Oral Hygiene (QC): 6 Toileting Hygiene (QC): 4 Shower/Bathe Self (QC): 4 Upper Body Dressing (QC): 5 Lower Body Dressing (QC): 4 On/Off Footwear (QC): 4 Additional Goals: 1-Demonstrate ADL Tasks, 2-Verbalize Understanding, 3- ImproveStrength/Francesca 1=Demonstrate adherence to instructed precautions during ADL tasks. 2=Patient will verbalize/demonstrate understanding of assistive devices/modifications for ADL. 3=Patient will improve strength/tolerance for activity to enable patient to perform ADL's. OT Education/Plan Problem List/Assessment Assessment: Decreased Activ Tolerance, Decreased UE Strength, Impaired Coordination, Impaired Funct Balance, Impaired I ADL's, Impaired Self-Care Skills, Restricted Funct UE ROM Discharge Recommendations Plan/Recommendations: Continue POC Treatment Plan/Plan of Care Patient would benefit from OT for education, treatment and training to promote independence in ADL's, mobility, safety and/or upper extremity function for ADL's. Plan of Care: ADL Retraining, Functional Mobility, UE Funct Exercise/Act Treatment Duration: Feb 05, 2022 Frequency: 3 times per week (3-5 times per week) Estimated Hrs Per Day: .25 hour per day Agreement: Yes Rehab Potential: Fair Time/GCodes Start Time: 10:20 Stop Time: 10:38 Total Time Billed (hr/min): 18 Billed Treatment Time 1CHLOE ADDISON OT Jan 25, 2022 11:23
--- NOTE | 2022-01-25 11:25 | History & Physical ---
MINERVA CHIANG 01/25/22 1125: History of Present Illness History of Present Illness Reason for visit/HPI Chief Complaint: Fall/Spleen Laceration History of present illness:This is a 61 yo M who presented to the ER on 01/24 by EMS with rib pain after a same level fall hitting his left flank on a table when falling. Patient had left chest wall and left shoulder pain and pain with deep breaths. Did not hit head or lose consciousness. Drinks about 4 servings of alcohol per day. CT of head and cervical spine on 01/[address] scan of the chest, abdomen and pelvis on 01/24 did show a splenic laceration Grade 3 with subcapsular hematoma, also nondisplaced posterolateral fractures of ribs 10, 11 and 12. Patient is anemic and losing blood likely due to his spleen laceration. Hgb 13 on 01/24. Hgb 10.6 on 01/25. Patient is awake and alert when I visited. In no acute distress though he is tachycardic with HR 100-115. Abdomen appears distended, and he reports that the rib pain is better than on admission but still present, 05/16. Dr. Solis, has been consulted. Date of Admission Jan 24, 2022 at 17:16 Date Seen by a Provider: Jan 25, 2022 Time Seen by a Provider: 08:27 I consulted on this patient on 01/25/22 11:25 Attending Physician Romana Campbell DO Admitting Physician Romana Campbell DO Consult Allergies and Home Medications Allergies Coded Allergies: Sulfa (Sulfonamide Antibiotics) (Verified Allergy, Unknown, 01/24/22) Uncoded Allergies: SULFA (Allergy, Unknown, 01/24/22) Patient Home Medication List Acetaminophen (Tylenol Extra Strength) 500 Mg Tablet, 1,000 MG PO Q8H PRN for PAIN-MILD (1-4), (Reported) Entered as Reported by: AVA BELTRÁN on 01/25/22 1015 Last Action: Reviewed Atenolol (Atenolol) 25 Mg Tablet, 25 MG PO DAILY, (Reported) Entered as Reported by: AVA BELTRÁN on 09/09/20 1526 Last Action: Reviewed Baclofen (Baclofen) 10 Mg Tablet, 10 MG PO TID PRN for MUSCLE SPASMS, (Reported) Entered as Reported by: AVA BELTRÁN on 01/25/22 1015 Last Action: Reviewed Ibuprofen (Advil) 200 Mg Capsule, 400 MG PO Q8H PRN for PAIN-MILD (1-4), (Reported) Entered as Reported by: AVA BELTRÁN on 01/25/22 1015 Last Action: Reviewed Lorazepam (Ativan) 0.5 Mg Tablet, 0.5 MG PO BID PRN for ANXIETY, (Reported) Entered as Reported by: AVA BELTRÁN on 09/09/20 1526 Last Action: Reviewed Magnesium Oxide (Magnesium Oxide) 400 Mg Tablet, 400 MG PO DAILY, (Reported) Entered as Reported by: AVA BELTRÁN on 01/25/22 1015 Last Action: Reviewed Potassium Chloride (Klor-Con 10) 10 Meq Tablet.er, 10 MEQ PO DAILY, (Reported) Entered as Reported by: AVA BELTRÁN on 01/25/22 1016 Last Action: Reviewed Discontinued Medications Allopurinol (Allopurinol) 100 Mg Tablet, 100 MG PO BIDPC Discontinued Reason: No Longer Taking Prescribed by: ROMANA CAMPBELL on 10/08/201937 Last Action: Discontinued Amlodipine Besylate (Amlodipine Besylate) 5 Mg Tablet, 5 MG PO DAILY Discontinued Reason: No Longer Taking Prescribed by: ROMANA CAMPBELL on 10/08/201937 Last Action: Discontinued Aspirin (Aspirin EC) 325 Mg Tablet.dr, 325 MG PO DAILY Discontinued Reason: No Longer Taking Prescribed by: ROMANA CAMPBELL on 10/08/201937 Last Action: Discontinued Atorvastatin Calcium (Atorvastatin Calcium) 80 Mg Tablet, 80 MG PO DAILY Discontinued Reason: No Longer Taking Prescribed by: ROMANA CAMPBELL on 10/08/201937 Last Action: Discontinued Baclofen (Baclofen) 10 Mg Tablet, 10 MG PO Q4HR PRN for MUSCLE SPASMS Discontinued Reason: Duplicate Order Prescribed by: ROMANA CAMPBELL on 10/08/201937 Last Action: Discontinued Magnesium Oxide (Magnesium Oxide) 400 Mg Tablet, 400 MG PO BID WITH MEALS Discontinued Reason: No Longer Taking Prescribed by: ROMANA CAMPBELL on 10/08/201937 Last Action: Discontinued Mirtazapine (Mirtazapine) 15 Mg Tab.rapdis, 15 MG PO HS Discontinued Reason: No Longer Taking Prescribed by: ROMANA CAMPBELL on 10/08/201937 Last Action: Discontinued Multivits,Ca,Minerals/Iron/FA (Thera-M Tablet) 1 Each Tablet, 1 EA PO DAILY@0700 Discontinued Reason: No Longer Taking Prescribed by: ROMANA CAMPBELL on 10/08/201937 Last Action: Discontinued Naphazoline HCl/Pheniramine (Opcon-A Eye Drops) 15 Ml Drops, 2 DROPS OU QID PRN for EYE REDNESS, (Reported) Discontinued Reason: No Longer Taking Entered as Reported by: AVA BELTRÁN on 09/09/201525 Last Action: Discontinued Nicotine (Nicoderm Cq) 1 Each Patch.td24, 14 MG TD DAILY@0900 Discontinued Reason: No Longer Taking Prescribed by: ROMANA CAMPBELL on 10/08/201937 Last Action: Discontinued Potassium Chloride (K-Tab ER) 10 Meq Tablet.er, 10 MEQ PO DAILY, (Reported) Discontinued Reason: No Longer Taking Entered as Reported by: AVA BELTRÁN on 09/09/201525 Last Action: Discontinued Past Gupeazj-Mjhczw-Aqtisq Hx Patient Social History Tobacco Use?: No Smoking Status: Former Smoker Use of E-Cig and/or Vaping dev: No Substance use?: Yes Substance type: Marijuana Additional substance use comme: OCCASIONAL EDIBLES Alcohol Use?: Yes Alcohol type: Hard Liquor Additional alcohol type: RUM & COKE, HALF A GALLON ABOUT EVERY 4 DAYS Alcohol Frequency: Daily Pt feels they are or have been: No Immunizations Up To Date First/Initial COVID19 Vaccinat: 2020 Second COVID19 Vaccination Tiburcio: 2020 Tetanus Booster (TDap): Unknown Hepatitis A: No PED Vaccines UTD: Yes Seasonal Allergies Seasonal Allergies: Yes Current Status Advance Directives: No Communicates: Verbally Primary Language: Turkish Preferred Spoken Language: Turkish Is interpretation needed?: No Past Medical History Currently Using CPAP: No Currently Using BIPAP: No Hypertension Neuropathy, Stroke Sexually Transmitted Disease: No HIV/AIDS: No Renal Failure Chronic Diarrhea, Irritable Bowel Gout Hearing Impairment: Hard of Hearing Anxiety, Depression Blood Disorders: No Adverse Reaction/Blood Tranf: No Family Medical History FH: neuropathy 19 MOTHER Mitral valve prolapse 19 MOTHER 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/Hx Review of Systems Constitutional: No chills, No diaphoresis, No fever EENTM: No hearing loss, No blurred vision Respiratory: other (left chest wall pain with deep inspiration) Cardiovascular: chest pain (left chest wall pain with deep inspiration); No edema Gastrointestinal: No abdominal pain, No diarrhea, No nausea, No vomiting Genitourinary: decreased output (Patient reports having less urine output than normal); No dysuria Musculoskeletal: No muscle pain Skin: No change in color, No dryness Psychiatric/Neurological: Denies Headache, Denies Numbness, Denies Paresthesia Physical Exam Vital Signs Vital Signs - First Documented 01/24/22 01/24/22 01/25/22 14:34 18:00 07:00 Temp 36.4 Pulse 81 Resp 16 B/P (MAP) 106/84 (91) Pulse Ox 98 O2 Delivery Room Air O2 Flow Rate 2.00 Capillary Refill : Less Than 3 Seconds Height, Weight, BMI Height: 6'2.00" Weight: 220lbs. 8.8oz. [id number]; 29.77 BMI Method:Stated General Appearance: No Apparent Distress, Obese Respiratory: Lungs Clear, Normal Breath Sounds, No Accessory Muscle Use, No Respiratory Distress, Decreased Breath Sounds (Decreased breathing due to left chest wall pain, pain with deep inspiration) Cardiovascular: Regular Rate, Rhythm, No Edema Gastrointestinal: Distended, Other (decreased bowel sounds) Neurologic/Psychiatric: Alert, Oriented x3, No Motor/Sensory Deficits, Normal Mood/Affect Skin: Normal Color, Warm/Dry Assessment/Plan Assessment and Plan Assessment: Spleen laceration Grade 3 Rib 10, 11, 12 fractures Fall Anemia from splenic hematoma Left sided hemiparesis HTN Anxiety Depression Chronic Alcoholism Plan: Dr. Solis, surgery consulted monitory hemoglobin pain control Admission Diagnosis Assessment: Spleen laceration Grade 3 Rib 10, 11, 12 fractures Fall Anemia from splenic hematoma Left sided hemiparesis HTN Anxiety Depression Chronic Alcoholism Clinical Quality Measures DVT/VTE Risk/Contraindication: Contraindications-Pharm: Other *list below* Other: spleen lac with hematoma ROMANA CAMPBELL DO 01/26/22 0515: History of Present Illness History of Present Illness Reason for visit/HPI CC: Splenic laceration due to fall with rib fractures HPI: This is a 61 yr old WM, known to me from clinic for the past 17 years. He has a past medical history of alcoholism and hypertension. He suffered a catastrophic CVA 2 years ago and ultimately has become more and more disabled. He suffered a fall a few days ago, found to have severe rib pain. Finally presented to the ER and found to have a splenic laceration with hematoma and blood in his peritoneum. Dr. Solis was consulted. IV fluids initiated for mild hypotension. CT scan showed stability with hematoma but hemoglobin did drop another point. is at the bedside. He will likely require a splenectomy. Allergies and Home Medications Allergies Coded Allergies: Sulfa (Sulfonamide Antibiotics) (Verified Allergy, Unknown, 01/24/22) Uncoded Allergies: SULFA (Allergy, Unknown, 01/24/22) Patient Home Medication List Home Medication List Reviewed: Yes Acetaminophen (Tylenol Extra Strength) 500 Mg Tablet, 1,000 MG PO Q8H PRN for PAIN-MILD (1-4), (Reported) Entered as Reported by: AVA BELTRÁN on 01/25/22 1015 Last Action: Reviewed Atenolol (Atenolol) 25 Mg Tablet, 25 MG PO DAILY, (Reported) Entered as Reported by: AVA BELTRÁN on 09/09/20 1526 Last Action: Reviewed Baclofen (Baclofen) 10 Mg Tablet, 10 MG PO TID PRN for MUSCLE SPASMS, (Reported) Entered as Reported by: AVA BELTRÁN on 01/25/22 1015 Last Action: Reviewed Ibuprofen (Advil) 200 Mg Capsule, 400 MG PO Q8H PRN for PAIN-MILD (1-4), (Reported) Entered as Reported by: AVA BELTRÁN on 01/25/22 1015 Last Action: Reviewed Lorazepam (Ativan) 0.5 Mg Tablet, 0.5 MG PO BID PRN for ANXIETY, (Reported) Entered as Reported by: AVA BELTRÁN on 09/09/20 1526 Last Action: Reviewed Magnesium Oxide (Magnesium Oxide) 400 Mg Tablet, 400 MG PO DAILY, (Reported) Entered as Reported by: AVA BELTRÁN on 01/25/22 1015 Last Action: Reviewed Potassium Chloride (Klor-Con 10) 10 Meq Tablet.er, 10 MEQ PO DAILY, (Reported) Entered as Reported by: AVA BELTRÁN on 01/25/22 1016 Last Action: Reviewed Discontinued Medications Allopurinol (Allopurinol) 100 Mg Tablet, 100 MG PO BIDPC Discontinued Reason: No Longer Taking Prescribed by: ROMANA CAMPBELL on 10/08/20 193 Last Action: Discontinued Amlodipine Besylate (Amlodipine Besylate) 5 Mg Tablet, 5 MG PO DAILY Discontinued Reason: No Longer Taking Prescribed by: ROMANA CAMPBELL on 10/08/201937 Last Action: Discontinued Aspirin (Aspirin EC) 325 Mg Tablet.dr, 325 MG PO DAILY Discontinued Reason: No Longer Taking Prescribed by: ROMANA CAMPBELL on 10/08/201937 Last Action: Discontinued Atorvastatin Calcium (Atorvastatin Calcium) 80 Mg Tablet, 80 MG PO DAILY Discontinued Reason: No Longer Taking Prescribed by: ROMANA CAMPBELL on 10/08/201937 Last Action: Discontinued Baclofen (Baclofen) 10 Mg Tablet, 10 MG PO Q4HR PRN for MUSCLE SPASMS Discontinued Reason: Duplicate Order Prescribed by: ROMANA CAMPBELL on 10/08/201937 Last Action: Discontinued Magnesium Oxide (Magnesium Oxide) 400 Mg Tablet, 400 MG PO BID WITH MEALS Discontinued Reason: No Longer Taking Prescribed by: ROMANA CAMPBELL on 10/08/201937 Last Action: Discontinued Mirtazapine (Mirtazapine) 15 Mg Tab.rapdis, 15 MG PO HS Discontinued Reason: No Longer Taking Prescribed by: ROMANA CAMPBELL on 10/08/201937 Last Action: Discontinued Multivits,Ca,Minerals/Iron/FA (Thera-M Tablet) 1 Each Tablet, 1 EA PO DAILY@0700 Discontinued Reason: No Longer Taking Prescribed by: ROMANA CAMPBELL on 10/08/201937 Last Action: Discontinued Naphazoline HCl/Pheniramine (Opcon-A Eye Drops) 15 Ml Drops, 2 DROPS OU QID PRN for EYE REDNESS, (Reported) Discontinued Reason: No Longer Taking Entered as Reported by: AVA BELTRÁN on 09/09/201525 Last Action: Discontinued Nicotine (Nicoderm Cq) 1 Each Patch.td24, 14 MG TD DAILY@0900 Discontinued Reason: No Longer Taking Prescribed by: ROMANA CAMPBELL on 10/08/201937 Last Action: Discontinued Potassium Chloride (K-Tab ER) 10 Meq Tablet.er, 10 MEQ PO DAILY, (Reported) Discontinued Reason: No Longer Taking Entered as Reported by: VAA BELTRÁN on 09/09/201525 Last Action: Discontinued Past Luyglaz-Rppojl-Vmvwef Hx Patient Social History Marrital Status: Employed/Student: unemployed Smoking Status: Former Smoker Substance use?: Yes Substance type: Marijuana Alcohol Use?: Yes Alcohol type: Hard Liquor Alcohol Frequency: Daily Past Medical History COPD High Cholesterol, Hypertension Neuropathy, Stroke Arthritis, Chronic Back Pain Anxiety Family Medical History FH: neuropathy 19 MOTHER Mitral valve prolapse 19 MOTHER Review of Systems Constitutional: see HPI, weakness EENTM: no symptoms reported Respiratory: dyspnea on exertion Cardiovascular: no symptoms reported Gastrointestinal: abdominal pain, loss of appetite, nausea Genitourinary: no symptoms reported Musculoskeletal: back pain, joint pain Skin: no symptoms reported Psychiatric/Neurological: Anxiety, Depressed, Emotional Problems All Other Systems Reviewed Negative Unless Noted: Yes Physical Exam General Appearance: WD/WN, Anxious, Chronically ill, Mild Distress, Obese Eyes: Bilateral Eye Normal Inspection, Bilateral Eye PERRL, Bilateral Eye EOMI HEENT: PERRL/EOMI, Normal ENT Inspection, Pharynx Normal Neck: Full Range of Motion, Normal Inspection, Non Tender, Supple, Carotid Bruit Respiratory: Chest Non Tender, Lungs Clear, No Accessory Muscle Use, No Respiratory Distress, Decreased Breath Sounds (Decreased breathing due to left chest wall pain, pain with deep inspiration) Cardiovascular: Regular Rate, Rhythm, No Edema, No Gallop, No JVD, No Murmur, Normal Peripheral Pulses Gastrointestinal: Normal Bowel Sounds, No Organomegaly, No Pulsatile Mass, Distended, Other (decreased bowel sounds) Back: Normal Inspection, No CVA Tenderness, No Vertebral Tenderness Extremity: Normal Capillary Refill, Normal Inspection, Normal Range of Motion, Non Tender, No Calf Tenderness, No Pedal Edema Neurologic/Psychiatric: Alert, Oriented x3, No Motor/Sensory Deficits, Normal Mood/Affect Skin: Normal Color, Warm/Dry Lymphatic: No Adenopathy Assessment/Plan Assessment and Plan Assessment: Left rib fractures Fall Splenic laceration Acute blood loss anemia from splenic hematoma Alcoholism CVA with left-sided weakness COPD Hypertension Anxiety Neuropathy Plan: Monitor hemoglobin Splenectomy may be required Problems: (1) Spleen laceration Status: Acute (2) Alcoholism Status: Chronic (3) Left-sided weakness Status: Acute (4) Hypertension Status: Chronic (5) Neuropathy Status: Chronic (6) Anxiety Status: Chronic (7) Gout (8) COPD (chronic obstructive pulmonary disease) Admission Diagnosis Admission Status: Inpatient Order (span 2 midnights) Reason for Inpatient Admission: Splenic laceration Supervisory-Addendum Brief Verification & Attestation Participated in pt care: history, MDM, physical Personally performed: exam, history, MDM, supervision of care Care discussed with: Medical Student Procedures: n/a Results interpretation: Verified all documentation Verification and Attestation of Medical Student E/M Service A medical student performed and documented this service in my presence. I reviewed and verified all information documented by the medical student and made modifications to such information, when appropriate. I personally performed the physical exam and medical decision making. Romana Campbell, Jan 26, 2022,05:14 MINERVA CHIANG Jan 25, 2022 11:25 ROMANA CAMPBELL DO Jan 26, 2022 05:15
[2022-01-25] MEDS: NS IV 1000 ML 1,000 ML IV SCH (15:12)
[2022-01-25] MEDS: LORazepam INJ 2 MG/ML (ATIVAN) VIAL IVP PRN (15:21)
--- NOTE | 2022-01-25 17:17 | Progress Note ---
Standard Progress Note Progress Notes/Assess & Plan Date Seen by a Provider: Jan 25, 2022 Time Seen by a Provider: 17:00 Progress/Assessment & Plan doing better. still has some pain. repeat CT stable. Hb stable. tolerating diet. cont monitory H/H. add breathing tx. IS and ambulation. QAMAR BALDERAS MD Jan 25, 2022 17:17
[2022-01-25] MEDS: fentaNYL INJ 100 MCG/2 ML AMP IVP PRN (18:20)
[2022-01-26] MEDS: NS IV 1000 ML 1,000 ML IV SCH ×2 (03:25→21:03)
[2022-01-26] MEDS: fentaNYL INJ 100 MCG/2 ML AMP IVP PRN ×2 (03:37→09:28)
[2022-01-26 04:43] LABS: BASOPHILS # (AUTO) 0.1 10^3/uL (0.0-0.1); BASOPHILS % (AUTO) 1 % (0-10); EOSINOPHILS # (AUTO) 0.1 10^3/uL (0.0-0.3); EOSINOPHILS % (AUTO) 0 % (0-10); HEMATOCRIT 25 % (40-54); HEMOGLOBIN 8.5 g/dL (13.3-17.7); LYMPHOCYTES # (AUTO) 1.2 10^3/uL (1.0-4.0); LYMPHOCYTES % (AUTO) 10 % (12-44); MEAN CORPUSCULAR HEMOGLOBIN 40 pg (25-34); MEAN CORPUSCULAR HGB CONC 34 g/dL (32-36); MEAN CORPUSCULAR VOLUME 118 fL (80-99); MONOCYTES # (AUTO) 1.1 10^3/uL (0.0-1.0); MONOCYTES % (AUTO) 10 % (0-12); NEUTROPHILS # (AUTO) 9.4 10^3/uL (1.8-7.8); NEUTROPHILS % (AUTO) 79 % (42-75); PLATELET COUNT 166 10^3/uL (130-400); WHITE BLOOD COUNT 11.9 10^3/uL (4.3-11.0)
[2022-01-26 04:54] LABS: ALBUMIN 2.7 GM/DL (3.2-4.5); POTASSIUM 4.2 MMOL/L (3.6-5.0)
[2022-01-26 04:57] LABS: TOTAL PROTEIN 5.4 GM/DL (6.4-8.2)
[2022-01-26 04:59] LABS: BILIRUBIN,TOTAL 1.3 MG/DL (0.1-1.0)
[2022-01-26 05:00] LABS: CREATININE SERUM 0.68 MG/DL (0.60-1.30); PHOSPHORUS 2.5 MG/DL (2.3-4.7)
[2022-01-26 05:03] LABS: MAGNESIUM 1.9 MG/DL (1.6-2.4)
[2022-01-26] MEDS: MAGNESIUM 1 GM/100 ML IVPB 100 ML IV SCH (05:27)
[2022-01-26] MEDS: POTASSIUM CL 10MEQ/50ML IVPB 50 ML IV SCH (05:27)
[2022-01-26] MEDS: KCL 20 MEQ TAB (K-DUR) PO SCH (05:27)
[2022-01-26] MEDS: MULTIVIT W/MINERALS TAB (THERAGRAN M) PO SCH (06:22)
[2022-01-26] MEDS: THIAMINE 100 MG (VITAMIN B-1) TAB PO SCH (06:22)
--- NOTE | 2022-01-26 08:53 | Physical Therapy Evaluation ---
PT Evaluation-General Medical Diagnosis Admission Date Jan 24, 2022 at 17:16 Medical Diagnosis: spleen laceration Onset Date: Jan 24, 2022 Therapy Diagnosis Therapy Diagnosis: Impaired mobility, strength, Sensation, Height/Weight Height (Feet): 6 Height (Inches): 2.00 Weight (Pounds): 220 Weight (Ounces): 8.8 Precautions Precautions/Isolations: Fall Prevention, Standard Precautions, Pressure Ulcer Weight Bear Status Full Weight Bearing Full Weight Bearing Referral Physician: Mauricio Reason for Referral: Evaluation/Treatment Medical History Pertinent Medical History: Alcoholism, HTN, Neuropathy Additional Medical History R CVA Current History ER secondary to tripping over a blanket and falling Reviewed History: Yes Social History Home: Single Level Current Living Status: Spouse Entry Into Home: Ramp, Stairs With Railing PT Steps Into Home: 2 Prior Prior Level of Function SCALE: Activities may be completed with or without assistive devices. 2-Wnkuqajkyo-xwmuluu completes the activity by him/herself with no assistance from a helper. 5-Set-up or Clean-up Assistance-helper sets up or cleans up; patient completes activity. [place] assists only prior to or following the activity. 4-Supervision or Touching Assistance-helper provides verbal cues and/or touching/steadying and/or contact guard assistance as patient completes ac tivity. Assistance may be provided throughout the activity or intermittently. 3-Partial/Moderate Assistance-helper does LESS THAN HALF the effort. [place] lifts, holds or supports trunk or limbs, but provides less than half the effort. 2-Substantial/Maximal Assistance-helper does MORE THAN HALF the effort. [place] lifts or holds trunk or limbs and provides more than half the effort. 0-Higjglocu-ystpag does ALL the effort. Patient does none of the effort to complete the activity. Or, the assistance of 2 or more helpers is required for the patient to complete the activity. If activity was not attempted, code reason: 7-Patient Refused. 9-Not Applicable-not attempted and the patient did not perform the activity before the current illness, exacerbation or injury. 10-Not Attempted due to Environmental Limitations-(lack of equipment, weather restraints, etc.). 88-Not Attempted due to Medical Conditions or Safety Concerns. Bed Mobility: 6 Transfers (B,C,W/C): 6 Gait: 6 Stairs: 6 Indoor Mobility (Ambulation): Independent Stairs: Independent Prior Devices Use: None PT Evaluation-Current Subjective Patient was in bed prior to tx. Patient reports that toothache is where the most pain is located at. Pain Comment: No rating of pain verbalized. Pt complains of intense toothache ROM/Strength ROM Lower Extremities WFL Strength Lower Extremities RLE: (Hip flexion 3+/5, Knee extension 4/5, Knee flexion 4-/5, DF 5/5); LLE: (Hip flexion 3+/5, Knee extension 4/5, Knee flexion 4-/5, DF 5/5) Integumentary/Posture Integumentary Pressure sore noted on sacrum. Scabbing on dorsal side of bilateral big toe Sensory Vision: Functional Hearing: Functional Hand Dominance: Right Sensation Right Lower Extremit: Impaired Sensation Left Lower Extremity: Impaired Sensation Lower Extremities R edmondson could not feel LT. Bilateral loss of LT on feet Transfers Roll Left to Right (QC): 4 Sit to Lying (QC): 4 Lying to Sitting/Side of Bed(Q: 4 Sit to Stand (QC): 3 Chair/Bop-co-Radzt Xfer(QC): 4 Gait Does the Patient Walk?: Yes Mode of Locomotion: Walk Anticipated Mode of Locomotion: Walk Walk 10 feet (QC): 4 Walk 50 ft with 2 Turns(QC): 4 Distance: 50' Gait Assistive Device: FWW Comments/Gait Description Forward lean posture Wheelchair Training Does the Pt Use a Wheelchair?: No Type of Wheelchair: N/A Balance Sitting Static: Normal Sitting Dynamic: Normal Standing Static: Good Standing Dynamic: Fair Treatment Ambulation Assessment/Needs Patient initially showed lack of confidence to get out of bed, but was able to ambulate 50'. Patient ambulated with a FWW with CGA. Patient had a forward posture while walking. C/o rib pain but did not rate. Rehab Potential: Fair PT Cooperative Manager Goals Cooperative Manager Goals PT Cooperative Manager Goals Time Frame: Feb 09, 2022 Roll Left & Right (QC): 6 Sit to Lying (QC): 6 Lying-Sitting on Side/Bed(QC): 6 Sit to Stand (QC): 6 Chair/Hgu-wy-Cpohu Xfer(QC): 6 Toilet Transfer (QC): 6 Car Transfer (QC): 6 Walk 10 feet (QC): 6 Walk 50ft with 2 Turns (QC): 6 Walk 150 ft (QC): 6 Walking 10ft on Uneven Surface: 6 Does the Pt use WC or Scooter?: No Type: N/A Type: N/A PT Plan Problem List Problem List: Activity Tolerance, Functional Strength, Safety, Balance, Gait, Transfer Treatment/Plan Treatment Plan: Continue Plan of Care Treatment Plan: Bed Mobility, Education, Functional Activity Francesca, Functional Strength, Gait, Safety, Therapeutic Exercise, Transfers Treatment Duration: Feb 09, 2022 Frequency: 6 times per week Estimated Hrs Per Day: .25 hour per day Time/GCodes Time In: 35 Time Out: 801 Total Billed Treatment Time: 27 Total Billed Treatment 1 Visit EVModC 13 min GT 14 min' JENNA OWUSU PT Jan 26, 2022 08:53
[2022-01-26] MEDS: DOCUSATE SODIUM 100 MG (COLACE) CAP PO SCH ×2 (09:00→21:05)
[2022-01-26] MEDS: SENNOSIDES 8.6 MG (SENOKOT) TAB PO SCH ×2 (09:00→21:05)
[2022-01-26] MEDS: FOLIC ACID 1 MG TAB PO SCH (09:26)
[2022-01-26] MEDS: PANTOPRAZOLE 40 MG (PROTONIX) VIAL IV SCH (09:26)
[2022-01-26] MEDS: MAGNESIUM OXIDE (MAG-OX)400 MG TAB PO SCH ×2 (09:27→09:55)
[2022-01-26] MEDS ORDERED: LORazepam 0.5 MG (ATIVAN) TABLET PO PRN (09:45)
[2022-01-26] MEDS ORDERED: ACETAMINOPHEN 500 MG TAB (TYLENOL) PO PRN (09:45)
[2022-01-26] MEDS ORDERED: BACLOFEN 10 MG (LIORESAL) TAB PO PRN (09:45)
[2022-01-26] MEDS: KCL 10 MEQ TAB (MICRO K) PO SCH (09:56)
--- NOTE | 2022-01-26 10:12 | Tele-ICU Progress Note ---
Subjective Date Seen by a Provider: Jan 26, 2022 Time Seen by a Provider: 10:12 Subjective/Events-last exam (Tele-ICU Physician , Progress Note ) Available chart/ vitals / labs / Images reviewed Video assessment done using teleICU camera, rest of exam as per RN Discussed with RN , EXAM PER RN Events overnight : Afebrile FiO2 - 3 I/O = pos Drips: Pressors: , hemodynamically stable Consultants: sx Hospital course: (01/24) 61/M- FALL, SPLENIC LAC, RIB FX, HGB STABLE AT 13, ETOH HX. 01/26- repeated CT 01/25-Stable left perisplenic hematoma and laceration., stable HB , tachycardia A/P grade II to III splenic laceration with subcapsular hematoma - sx consulted - repeated CT 01/25-Stable left perisplenic hematoma and laceration. - Hb slowly trending down - follow -stable HB , tachycardia - withdrowal? monitor left lateral rib fractures 10 through 12 ( no PRX on CT) - on 2 l o2 now - pain control - IS ETOH use- 1 pint a day - last 01/23 - vitamins , CIWA Lines : perip (Central Line Necessity Reviewed) [place]: void OG: Nutrition: Analgesia: Anxiety/ delirium VTE Prophylaxis: scd Stress Ulcer Prophylaxis: ppi Glycemic Control: Plans in collaboration with bedside consultants and IM MDs. Discussed with RN to reach out if any questions or concerns A total of 22 minutes of critical care time was devoted to this patient today, required to treat and/or prevent further deterioration of critical care condition ( as above) . Sepsis Event Evaluation Height, Weight, BMI Height: 6'2.00" Weight: 220lbs. 8.8oz. [id number]; 29.77 BMI Method:Stated Exam Exam Patient acknowledged, consented, and participated in this virtual visit which was conducted using real time audio/video Vital Signs Date Time Temp Pulse Resp B/P (MAP) Pulse Ox O2 Delivery O2 Flow Rate FiO2 01/26/22 09:00 114 21 136/78 95 Nasal Cannula 3.00 01/26/22 08:00 113 19 142/86 92 Nasal Cannula 3.00 01/26/22 07:59 36.4 01/26/22 07:00 108 22 94 Nasal Cannula 3.00 01/26/22 07:00 98 01/26/22 06:07 102 10 114/71 93 Nasal Cannula 3.00 01/26/22 05:00 101 10 108/63 91 Nasal Cannula 3.00 01/26/22 04:00 96 Nasal Cannula 3.00 01/26/22 04:00 98 9 118/68 93 Nasal Cannula 3.00 01/26/22 03:00 103 10 114/67 92 Nasal Cannula 3.00 01/26/22 02:00 106 11 112/67 92 Nasal Cannula 3.00 01/26/22 01:00 105 11 116/61 93 Nasal Cannula 3.00 01/26/22 00:27 101 01/26/22 00:00 36.9 Nasal Cannula 3.00 01/26/22 00:00 105 11 111/61 93 Nasal Cannula 3.00 01/25/22 23:59 96 Nasal Cannula 3.00 01/25/22 23:00 105 12 94/73 95 Nasal Cannula 3.00 01/25/22 22:00 106 12 102/63 93 Nasal Cannula 3.00 01/25/22 21:00 110 12 108/63 93 Nasal Cannula 3.00 01/25/22 20:00 122 14 115/63 92 Nasal Cannula 3.00 01/25/22 20:00 96 Nasal Cannula 3.00 01/25/22 19:49 37.2 01/25/22 19:33 118 01/25/22 19:00 121 11 125/69 92 Nasal Cannula 3.00 01/25/22 18:00 123 19 104/76 92 Nasal Cannula 3.00 01/25/22 17:00 118 33 126/84 94 Nasal Cannula 3.00 01/25/22 16:00 106 11 105/62 9 Nasal Cannula 2.00 01/25/22 16:00 94 Nasal Cannula 3.00 01/25/22 15:56 37.1 01/25/22 15:00 112 13 105/63 92 Nasal Cannula 2.00 01/25/22 14:09 37.3 01/25/22 14:00 113 16 115/67 93 Nasal Cannula 2.00 01/25/22 13:00 105 11 114/62 93 Nasal Cannula 2.00 01/25/22 13:00 106 01/25/22 12:00 36.6 01/25/22 12:00 91 Nasal Cannula 3.00 01/25/22 12:00 121 17 118/78 91 Nasal Cannula 2.00 01/25/22 11:00 107 18 123/71 93 Nasal Cannula 2.00 I & O 01/26/22 06:59 Intake Total 440 ml Output Total 1250 ml Balance -810 ml Height & Weight Height: 6'2.00" Weight: 220lbs. 8.8oz. 100.542273ig; 29.77 BMI Method:Stated General Appearance: WD/WN, Anxious, Chronically ill, Mild Distress, Obese HEENT: PERRL/EOMI, Normal ENT Inspection, Pharynx Normal Neck: Full Range of Motion, Normal Inspection, Non Tender, Supple, Carotid Bruit Respiratory: Chest Non Tender, Lungs Clear, No Accessory Muscle Use, No Respiratory Distress, Decreased Breath Sounds (Decreased breathing due to left chest wall pain, pain with deep inspiration) Cardiovascular: Regular Rate, Rhythm, No Edema, No Gallop, No JVD, No Murmur, Normal Peripheral Pulses Capillary Refill: Less Than 3 Seconds Peripheral Pulses: 1+ Dorsalis Pedis (R), 1+ Left Dors-Pedis (L) (See free text.) Gastrointestinal: normal bowel sounds, soft, tenderness (Minimal tenderness left upper abdomen, he is not sure if it is the abdomen is tender with the lower ribs) Extremity: Normal Capillary Refill, Normal Inspection, Normal Range of Motion, Non Tender, No Calf Tenderness, No Pedal Edema Neurologic/Psychiatric: Alert, Oriented x3, No Motor/Sensory Deficits, Normal Mood/Affect Skin: Normal Color, Warm/Dry Lymphatic: No Adenopathy Results Lab Laboratory Tests 01/24/22 15:20 01/24/22 21:58 01/25/22 04:38 01/25/22 10:40 01/26/22 04:33 Assessment/Plan Assessment/Plan . NAZARIO SHANE MD Jan 26, 2022 10:12
--- NOTE | 2022-01-26 10:22 | Occupational Ther Daily Note ---
OT Current Status-Daily Note Subjective Pt dozing in recliner, woke to name. Pt reluctantly agrees to therapy. Pt states that his tooth hurts more then his broken ribs and ruptured spleen and does not feel like moving or standing up. JOHNSTON encourages pt to participates in therapy. Mental Status/Objective Patient Orientation: Person, Place, Time, Situation Attachments: IV, Oxygen, Telemetry ADL-Treatment Pt tolerated swishing water/toothpaste in mouth to cleanse for oral care, set up. Therapy Code Descriptions/Definitions Functional [place] Measure: 0=Not Assessed/NA 4=Minimal Assistance 1=Total Assistance 5=Supervision or Setup 2=Maximal Assistance 6=Modified [place] 3=Moderate Assistance 7=Complete IndependenceSCALE: Activities may be completed with or without assistive devices. 1-Syjpvyrwsy-vwgjfmd completes the activity by him/herself with no assistance from a helper. 5-Set-up or Clean-up Assistance-helper sets up or cleans up; patient completes activity. [place] assists only prior to or following the activity. 4-Supervision or Touching Assistance-helper provides verbal cues and/or touching/steadying and/or contact guard assistance as patient completes activi ty. Assistance may be provided throughout the activity or intermittently. 3-Partial/Moderate Assistance-helper does LESS THAN HALF the effort. [place] lifts, holds or supports trunk or limbs, but provides less than half the effort. 2-Substantial/Maximal Assistance-helper does MORE THAN HALF the effort. [place] lifts or holds trunk or limbs and provides more than half the effort. 4-Wvqlksdda-fsjpic does ALL the effort. Patient does none of the effort to complete the activity. Or, the assistance of 2 or more helpers is required for the patient to complete the activity. If activity was not attempted, code reason: 7-Patient Refused. 9-Not Applicable-not attempted and the patient did not perform the activity before the current illness, exacerbation or injury. 10-Not Attempted due to Environmental Limitations-(lack of equipment, weather restraints, etc.). 88-Not Attempted due to Medical Conditions or Safety Concerns. Oral Hygiene (QC): 5 Other Treatment AAROM for elbow flex/est, wrist flex/ext and finger flex/ext. Pt fatigues quickly with movement and is noticeably tight in hand and wrist. Pt able to straighten L fingers 1x only. Pt able to actively flex wrist with assist for wrist flexion. Pt then stated that they must of given him something because his head was fuzzy. Gentle stretch to L UE to decrease tightness completed. Pt the n positioned for comfort and L UE to increase finger extension and decrease tightness. Call light/phone in reach after therapy. While JOHNSTON was leaving pt stated "Make sure you come back and visit a couple more times before I pass." JOHNSTON encouraged pt and made sure he was comfortable and call light within reach. All needs met. OT Detention Goals Dietetic Intern Goals Time Frame: Feb 05, 2022 Eating (QC): 6 Oral Hygiene (QC): 6 Toileting Hygiene (QC): 4 Shower/Bathe Self (QC): 4 Upper Body Dressing (QC): 5 Lower Body Dressing (QC): 4 On/Off Footwear (QC): 4 Additional Goals: 1-Demonstrate ADL Tasks, 2-Verbalize Understanding, 3- ImproveStrength/Francesca 1=Demonstrate adherence to instructed precautions during ADL tasks. 2=Patient will verbalize/demonstrate understanding of assistive devices/modifications for ADL. 3=Patient will improve strength/tolerance for activity to enable patient to perform ADL's. OT Education/Plan Problem List/Assessment Assessment: Decreased Activ Tolerance, Decreased UE Strength, Impaired Cognition, Impaired Self-Care Skills, Restricted Funct UE ROM Discharge Recommendations Plan/Recommendations: Continue POC Treatment Plan/Plan of Care Patient would benefit from OT for education, treatment and training to promote independence in ADL's, mobility, safety and/or upper extremity function for ADL's. Plan of Care: ADL Retraining, Functional Mobility, UE Funct Exercise/Act Treatment Duration: Feb 05, 2022 Frequency: 3 times per week (3-5 times per week) Estimated Hrs Per Day: .25 hour per day Agreement: Yes Rehab Potential: Fair Time/GCodes Start Time: 09:50 Stop Time: 10:13 Total Time Billed (hr/min): 23 Billed Treatment Time 1 visit-ADL 1 (10 min) EX 1 (13 min) SUNIL DAMON Jan 26, 2022 10:22
--- NOTE | 2022-01-26 10:32 | Progress Note ---
[facility] 01/26/22 1032: Subjective Date Seen by a Provider: Jan 26, 2022 Time Seen by a Provider: 07:57 Subjective/Events-last exam Chief Complaint: Splenic laceration due to fall with rib fractures History of present illness: This is a 61 yr old WM well known to Dr. Campbell who is his PCP. He has a past medical history of alcoholism and hypertension. He suffered a catastrophic CVA 2 years ago and ultimately has become more and more disabled. He suffered a fall a few days ago, found to have severe rib pain. Finally presented to the ER and found to have a splenic laceration with hematoma and blood in his peritoneum. Dr. Solis was consulted. IV fluids initiated for mil d hypotension. CT scan showed stability with hematoma but hemoglobin did drop another point. is at the bedside. He will likely require a splenectomy. Subjective/Events-last exam Patient appears stable but reports that he is not feeling well. His left chest wall pain is better controlled, still has severe pain with deep inspiration. Therefore he is not taking deep breaths or using incentive spirometer often. Patient is also having issuses with his tooth pain on his left jaw, saying that his jaw pain is causing the most discomfort and trouble especially with eating. Patient has been up and walking with PT. Repeat CT on 01/25 show his left perisplenic hematoma and laceration to be stable. Hgb has decreased today to 8.5. Patient had normal heart rate overnight sleeping, tachycardic at 115 when I entered the room, vitals otherwise stable. Review of Systems General: Fatigue, Malaise HEENT: Other (Left jaw/tooth pain) Pulmonary: Dyspnea Cardiovascular: Chest Pain (left chest wall pain) Gastrointestinal: No: Nausea, Vomiting, Diarrhea Genitourinary: No Dysuria, No Incontinence Musculoskeletal: No: back pain Neurological: Other (Anxiety, depression, emotional problems) Objective Exam Last Set of Vital Signs Vital Signs Date Time Temp Pulse Resp B/P (MAP) Pulse Ox O2 Delivery O2 Flow Rate FiO2 01/26/22 09:00 114 21 136/78 95 Nasal Cannula 3.00 01/26/22 07:59 36.4 Capillary Refill : Less Than 3 Seconds I&O Intake and Output 01/26/22 00:00 Intake Total 1640 ml Output Total 1150 ml Balance 490 ml Intake Oral 1640 ml Output Urine Total 1150 ml # Voids 2 General: Alert, Oriented X3, Mild Distress Lungs: Clear to Auscultation, Normal Air Movement, Other (Decreased breathing due to left chest wall pain, pain with deep inspiration) Heart: Regular Rate, No Murmurs Abdomen: Other (Abdominal distention, decreased bowel sounds) Neuro: Normal Speech Psych/Mental Status: Mental Status NL, Mood NL (Depresison, Anxiety) Results Lab Laboratory Tests 01/25/22 10:40: Hemoglobin 9.4L, Hematocrit 27L 01/26/22 04:33: Hemoglobin 8.5L, Hematocrit 25L, White Blood Count 11.9H, Red Blood Count 2.12L, Mean Corpuscular Volume 118H, Mean Corpuscular Hemoglobin 40H, Mean Corpuscular Hemoglobin Concent 34, Red Cell Distribution Width 13.5, Platelet Count 166, Mean Platelet Volume 10.0, Immature Granulocyte % (Auto) 0, Neutrophils (%) (Auto) 79H, Lymphocytes (%) (Auto) 10L, Monocytes (%) (Auto) 10, Eosinophils (%) (Auto) 0, Basophils (%) (Auto) 1, Neutrophils # (Auto) 9.4H, Lymphocytes # (Auto) 1.2, Monocytes # (Auto) 1.1H, Eosinophils # (Auto) 0.1, Basophils # (Auto) 0.1, Immature Granulocyte # (Auto) 0.1, Sodium Level 134L, Potassium Level 4.2, Chloride Level 104, Carbon Dioxide Level 20L, Anion Gap 10, Blood Urea Nitrogen 15, Creatinine 0.68, Estimat Glomerular Filtration Rate 107, BUN/Creatinine Ratio 22, Glucose Level 113H, Calcium Level 8.0L, Corrected Calcium 9.0, Phosphorus Level 2.5, Magnesium Level 1.9, Total Bilirubin 1.3H, Aspartate Amino Transf (AST/SGOT) 42H, Alanine Aminotransferase (ALT/SGPT) 23, Alkaline Phosphatase 107, Total Protein 5.4L, Albumin 2.7L Assessment/Plan Assessment/Plan Assess & Plan/Chief Complaint Assessment: Left rib fractures Fall Splenic laceration Acute blood loss anemia from splenic hematoma Alcoholism CVA with left-sided weakness COPD Hypertension Anxiety Neuropathy Plan: Monitor hemoglobin Splenectomy may be required 01/26/2022: CT showed stable left perisplenic hematoma and laceration Monitor hemoglobin Appreciate Dr. Solis Consult oral surgery Clinical Quality Measures Admission Status Admission Dx Assessment: Spleen laceration Grade 3 Rib 10, 11, 12 fractures Fall Anemia from splenic hematoma Left sided hemiparesis HTN Anxiety Depression Chronic Alcoholism DVT/VTE Risk/Contraindication: Contraindications-Pharm: Other *list below* Other: spleen lac with hematoma ROMANA CAMPBELL DO 01/27/22 0523: Subjective Subjective/Events-last exam Pt is doing well Reached out to anesthesia to see if left rib pain block can be initiated for rib fractures Dr. Slade will see him for the tooth evaluation that causes a cut to his tongue Moving down to 4th floor In-patient rehab consult Review of Systems General: Fatigue, Malaise Pulmonary: Dyspnea Cardiovascular: Chest Pain (left chest wall pain) Objective Exam General: Alert, Oriented X3, Cooperative, No Acute Distress Lungs: Clear to Auscultation, Normal Air Movement Heart: Regular Rate, Normal S1, Normal S2, No Murmurs Psych/Mental Status: Mental Status NL, Mood NL Assessment/Plan Assessment/Plan Assess & Plan/Chief Complaint Consult anesthesia for left rib fracture pain block Consult Dr. Slade Monitor hemoglobin Supervisory-Addendum Brief Verification & Attestation Participated in pt care: history, MDM, physical Personally performed: exam, history, MDM, supervision of care Care discussed with: Medical Student Procedures: n/a Results interpretation: Verified all documentation Verification and Attestation of Medical Student E/M Service A medical student performed and documented this service in my presence. I reviewed and verified all information documented by the medical student and made modifications to such information, when appropriate. I personally performed the physical exam and medical decision making. Romana Campbell Jan 27, 2022,05:22 MINERVA CHIANG Jan 26, 2022 10:32 ROMANA CAMPBELL DO Jan 27, 2022 05:23
--- NOTE | 2022-01-26 13:30 | Progress Note ---
Standard Progress Note Progress Notes/Assess & Plan Date Seen by a Provider: Jan 26, 2022 Time Seen by a Provider: 13:00 Progress/Assessment & Plan I talked with pt at length regarding his anesthesia options for rib fx pain control. Both rib block and thoracic epidural were discussed and the ri sks/benefits of both. Pt advised he thought he pain was fairly well managed with what he was already receiving. Pain from his tooth ache is worse than his rib fx pain. Pt advised he would hold off and continue with current treatment. I advised to have us contacted if his wishes changed,and we could re evaluate his pain at that time. Final Diagnosis Rib fractures LA WILLARD CRNA Jan 26, 2022 13:30
[2022-01-26 16:00] VITALS: BP 120/70
--- NOTE | 2022-01-26 18:51 | Progress Note ---
Subjective Date Seen by a Provider: Jan 26, 2022 Time Seen by a Provider: 18:00 Subjective/Events-last exam doing ok. currently up in chair. reports more rib pain. tolerating diet with rate limiting factor being a bad tooth. no fever/chills. decrease hb however may be dilutional. will continue to monitor. Objective Exam Vital Signs Date Time Temp Pulse Resp B/P (MAP) Pulse Ox O2 Delivery O2 Flow Rate FiO2 01/26/22 16:00 37.3 108 20 120/70 (87) 98 Nasal Cannula 3.00 01/26/22 15:41 36.2 102 24 117/65 99 Nasal Cannula 4.00 01/26/22 11:00 90 28 95/60 100 Nasal Cannula 3.00 01/26/22 10:00 112 25 105/67 97 Nasal Cannula 3.00 01/26/22 09:00 114 21 136/78 95 Nasal Cannula 3.00 01/26/22 08:00 113 19 142/86 92 Nasal Cannula 3.00 01/26/22 08:00 96 Nasal Cannula 3.00 01/26/22 07:59 36.4 01/26/22 07:00 108 22 94 Nasal Cannula 3.00 01/26/22 07:00 98 01/26/22 06:07 102 10 114/71 93 Nasal Cannula 3.00 01/26/22 05:00 101 10 108/63 91 Nasal Cannula 3.00 01/26/22 04:00 96 Nasal Cannula 3.00 01/26/22 04:00 98 9 118/68 93 Nasal Cannula 3.00 01/26/22 03:00 103 10 114/67 92 Nasal Cannula 3.00 01/26/22 02:00 106 11 112/67 92 Nasal Cannula 3.00 01/26/22 01:00 105 11 116/61 93 Nasal Cannula 3.00 01/26/22 00:27 101 01/26/22 00:00 36.9 Nasal Cannula 3.00 01/26/22 00:00 105 11 111/61 93 Nasal Cannula 3.00 01/25/22 23:59 96 Nasal Cannula 3.00 01/25/22 23:00 105 12 94/73 95 Nasal Cannula 3.00 01/25/22 22:00 106 12 102/63 93 Nasal Cannula 3.00 01/25/22 21:00 110 12 108/63 93 Nasal Cannula 3.00 01/25/22 20:00 122 14 115/63 92 Nasal Cannula 3.00 01/25/22 20:00 96 Nasal Cannula 3.00 01/25/22 19:49 37.2 01/25/22 19:33 118 01/25/22 19:00 121 11 125/69 92 Nasal Cannula 3.00 I & O 01/26/22 07:00 Intake Total 440 ml Output Total 1250 ml Balance -810 ml Capillary Refill : Less Than 3 Seconds General Appearance: No Apparent Distress HEENT: PERRL/EOMI Neck: Full Range of Motion Respiratory: Chest Non Tender, Decreased Breath Sounds Cardiovascular: Regular Rate, Rhythm Gastrointestinal: normal bowel sounds, soft, tenderness Extremity: Normal Capillary Refill Neurologic/Psychiatric: Alert, Oriented x3 Skin: Normal Color Lymphatic: No Adenopathy Results Lab Laboratory Tests 01/26/22 04:33: White Blood Count 11.9H, Red Blood Count 2.12L, Hemoglobin 8.5L, Hematocrit 25L, Mean Corpuscular Volume 118H, Mean Corpuscular Hemoglobin 40H, Mean Corpuscular Hemoglobin Concent 34, Red Cell Distribution Width 13.5, Platelet Count 166, Mean Platelet Volume 10.0, Immature Granulocyte % (Auto) 0, Neutrophils (%) (Auto) 79H, Lymphocytes (%) (Auto) 10L, Monocytes (%) (Auto) 10, Eosinophils (%) (Auto) 0, Basophils (%) (Auto) 1, Neutrophils # (Auto) 9.4H, Lymphocytes # (Auto) 1.2, Monocytes # (Auto) 1.1H, Eosinophils # (Auto) 0.1, Basophils # (Auto) 0.1, Immature Granulocyte # (Auto) 0.1, Sodium Level 134L, Potassium Level 4.2, Chloride Level 104, Carbon Dioxide Level 20L, Anion Gap 10, Blood Urea Nitrogen 15, Creatinine 0.68, Estimat Glomerular Filtration Rate 107, BUN/Creatinine Ratio 22, Glucose Level 113H, Calcium Level 8.0L, Corrected Calcium 9.0, Phosphorus Level 2.5, Magnesium Level 1.9, Total Bilirubin 1.3H, Aspartate Amino Transf (AST/SGOT) 42H, Alanine Aminotransferase (ALT/SGPT) 23, Alkaline Phosphatase 107, Total Protein 5.4L, Albumin 2.7L Assessment/Plan Assessment/Plan Assess & Plan/Chief Complaint same level fall with left rib fx 10-12 and splenic injury. increase ambulation. IS and breathing tx. pain control. continue to monitor Hb. Clinical Quality Measures DVT/VTE Risk/Contraindication: Contraindications-Pharm: Other *list below* Other: spleen lac with hematoma QAMAR BALDERAS MD Jan 26, 2022 18:51
[2022-01-26 20:20] VITALS: BP 107/78
[2022-01-27 00:05] VITALS: BP 110/59
[2022-01-27 04:00] VITALS: BP 107/75
[2022-01-27 05:42] LABS: BASOPHILS % (AUTO) 0 % (0-10); EOSINOPHILS # (AUTO) 0.1 10^3/uL (0.0-0.3); EOSINOPHILS % (AUTO) 1 % (0-10); HEMATOCRIT 24 % (40-54); HEMOGLOBIN 8.2 g/dL (13.3-17.7); LYMPHOCYTES # (AUTO) 1.2 10^3/uL (1.0-4.0); LYMPHOCYTES % (AUTO) 13 % (12-44); MEAN CORPUSCULAR HEMOGLOBIN 40 pg (25-34); MEAN CORPUSCULAR HGB CONC 34 g/dL (32-36); MEAN CORPUSCULAR VOLUME 118 fL (80-99); MONOCYTES % (AUTO) 10 % (0-12); NEUTROPHILS # (AUTO) 7.4 10^3/uL (1.8-7.8); NEUTROPHILS % (AUTO) 76 % (42-75); PLATELET COUNT 170 10^3/uL (130-400); WHITE BLOOD COUNT 9.8 10^3/uL (4.3-11.0)
[2022-01-27 05:55] LABS: ALBUMIN 2.7 GM/DL (3.2-4.5); POTASSIUM 3.8 MMOL/L (3.6-5.0)
[2022-01-27 05:56] LABS: CALCIUM 7.9 MG/DL (8.5-10.1)
[2022-01-27 05:58] LABS: TOTAL PROTEIN 5.2 GM/DL (6.4-8.2)
[2022-01-27 05:59] LABS: BILIRUBIN,TOTAL 1.3 MG/DL (0.1-1.0)
[2022-01-27] MEDS: MAGNESIUM OXIDE (MAG-OX)400 MG TAB PO SCH (06:00)
[2022-01-27] MEDS: THIAMINE 100 MG (VITAMIN B-1) TAB PO SCH (06:00)
[2022-01-27] MEDS: KCL 10 MEQ TAB (MICRO K) PO SCH (06:00)
[2022-01-27] MEDS: MULTIVIT W/MINERALS TAB (THERAGRAN M) PO SCH (06:00)
[2022-01-27 06:01] LABS: CREATININE SERUM 0.58 MG/DL (0.60-1.30)
[2022-01-27 06:04] LABS: MAGNESIUM 1.8 MG/DL (1.6-2.4)
[2022-01-27 07:45] VITALS: BP 114/73
[2022-01-27] MEDS: FOLIC ACID 1 MG TAB PO SCH (08:09)
[2022-01-27] MEDS: PANTOPRAZOLE 40 MG (PROTONIX) TAB PO SCH (08:10)
--- NOTE | 2022-01-27 10:09 | Occupational Ther Daily Note ---
OT Current Status-Daily Note Subjective Pt alert, lying in bed. Visitor present in room. Pt talking about it being his time and it doesn't matter what he does because he is going to pass soon. Visitor and JOHNSTON encouraged pt to participate in therapy, pt continued to decline. Then asked what he was supposed to do and JOHNSTON stated that he needed to get up in the chair. Pt joking that the brenda caroer had visited him already today, pt acknowledge that he was joking about this. Mental Status/Objective Patient Orientation: Person, Place, Time, Situation Attachments: IV, Oxygen (1L) ADL-Treatment Therapy Code Descriptions/Definitions Functional [place] Measure: 0=Not Assessed/NA 4=Minimal Assistance 1=Total Assistance 5=Supervision or Setup 2=Maximal Assistance 6=Modified [place] 3=Moderate Assistance 7=Complete IndependenceSCALE: Activities may be completed with or without assistive devices. 1-Swrtcvznnk-rmczxhh completes the activity by him/herself with no assistance from a helper. 5-Set-up or Clean-up Assistance-helper sets up or cleans up; patient completes activity. [place] assists only prior to or following the activity. 4-Supervision or Touching Assistance-helper provides verbal cues and/or touching/steadying and/or contact guard assistance as patient completes activity. Assistance may be provided throughout the activity or intermittently. 3-Partial/Moderate Assistance-helper does LESS THAN HALF the effort. [place] lifts, holds or supports trunk or limbs, but provides less than half the effort. 2-Substantial/Maximal Assistance-helper does MORE THAN HALF the effort. [place] lifts or holds trunk or limbs and provides more than half the effort. 7-Dlhzvqfis-akvodi does ALL the effort. Patient does none of the effort to complete the activity. Or, the assistance of 2 or more helpers is required for the patient to complete the activity. If activity was not attempted, code reason: 7-Patient Refused. 9-Not Applicable-not attempted and the patient did not perform the activity before the current illness, exacerbation or injury. 10-Not Attempted due to Environmental Limitations-(lack of equipment, weather restraints, etc.). 88-Not Attempted due to Medical Conditions or Safety Concerns. Oral Hygiene (QC): 5 (Set up for oral care, swishing water and using oral sponge for mouth due to pain in L tooth.) Pt c/o not feeling feet and worried about falling because of this. L hand increasing in strength, demonstrates stronger finger extension today. Other Treatment Min A for supine to EOB. CGA to SPT from EOB to recliner. Pt made comfortable in recliner. Call light/phone in reach, all needs met at end of session. OT [facility] Goals [facility] Goals Time Frame: Feb 05, 2022 Eating (QC): 6 Oral Hygiene (QC): 6 Toileting Hygiene (QC): 4 Shower/Bathe Self (QC): 4 Upper Body Dressing (QC): 5 Lower Body Dressing (QC): 4 On/Off Footwear (QC): 4 Additional Goals: 1-Demonstrate ADL Tasks, 2-Verbalize Understanding, 3-ImproveStrength/Francesca 1=Demonstrate adherence to instructed precautions during ADL tasks. 2=Patient will verbalize/demonstrate understanding of assistive devices/modifications for ADL. 3=Patient will improve strength/tolerance for activity to enable patient to perform ADL's. OT Education/Plan Problem List/Assessment Assessment: Decreased Activ Tolerance, Decreased UE Strength, Impaired Bed Mobility, Impaired Self-Care Skills Discharge Recommendations Plan/Recommendations: Continue POC Treatment Plan/Plan of Care Patient would benefit from OT for education, treatment and training to promote independence in ADL's, mobility, safety and/or upper extremity function for ADL's. Plan of Care: ADL Retraining, Functional Mobility, UE Funct Exercise/Act Treatment Duration: Feb 05, 2022 Frequency: 3 times per week (3-5 times per week) Estimated Hrs Per Day: .25 hour per day Agreement: Yes Rehab Potential: Fair Time/GCodes Start Time: 09:35 Stop Time: 10:02 Total Time Billed (hr/min): 27 Billed Treatment Time 1 visit-FA 1 (19 min) ADL 1 (8 min) SUNIL DAMON Jan 27, 2022 10:09
[2022-01-27] MEDS: DOCUSATE SODIUM 100 MG (COLACE) CAP PO SCH ×2 (10:38→21:04)
[2022-01-27] MEDS: SENNOSIDES 8.6 MG (SENOKOT) TAB PO SCH ×2 (10:38→21:04)
[2022-01-27] MEDS ORDERED: IRON SUCROSE 200 MG/10 ML (VENOFER) VIAL IV SCH (10:45)
[2022-01-27] MEDS ORDERED: CYANOCOBALAMIN INJ 1000 MCG/ML IM ONE (10:45)
[2022-01-27 11:32] VITALS: BP 116/70
--- NOTE | 2022-01-27 11:33 | Progress Note ---
[facility] 01/27/22 1133: Subjective Date Seen by a Provider: Jan 27, 2022 Time Seen by a Provider: 08:42 Subjective/Events-last exam Chief Complaint: Splenic laceration due to fall with rib fractures History of present illness: This is a 61 yr old WM well known to Dr. Campbell who is his PCP. He has a past medical history of alcoholism and hypertension. He suffered a catastrophic CVA 2 years ago and ultimately has become more and more disabled. He suffered a fall a few days ago, found to have severe rib pain. Finally presented to the ER and found to have a splenic laceration with hematoma and blood in his peritoneum. Dr. Solis was consulted. IV fluids initiated for mil d hypotension. CT scan showed stability with hematoma but hemoglobin did drop another point. is at the bedside. He will likely require a splenectomy. Subjective/Events-last exam Patient reports that he is not quite sure how he is doing, overall is okay. Hemoglobin down to 8.2 today from 8.5 yesterday but is decreasing at a much slower rate and stabilizing. Patient has not been using incentive spirometer. Is getting up and working on ambulation. Reports that his left chest wall pain is improving and not as noticeable with deep inspiration. Patient declined the rib block by anesthesia. Dr. Slade has visited the patient concerning his tooth/jaw pain. Review of Systems General: Fatigue, Malaise HEENT: No Head Aches, No Visual Changes Pulmonary: Dyspnea Cardiovascular: No: Chest Pain, Palpitations Gastrointestinal: No: Nausea, Vomiting, Diarrhea Musculoskeletal: No: back pain Neurological: No: Weakness, Numbness, Confusion Objective Exam Last Set of Vital Signs Vital Signs Date Time Temp Pulse Resp B/P (MAP) Pulse Ox O2 Delivery O2 Flow Rate FiO2 01/27/22 10:38 37.1 01/27/22 07:45 86 20 114/73 (87) 97 Nasal Cannula 3.00 Capillary Refill : Less Than 3 Seconds I&O Intake and Output 01/27/22 00:00 Intake Total 480 ml Output Total 1000 ml Balance -520 ml Intake Oral 480 ml Output Urine Total 1000 ml General: Alert, Oriented X3 Lungs: Clear to Auscultation, Normal Air Movement Heart: Regular Rate Psych/Mental Status: Mental Status NL, Mood NL Results Lab Laboratory Tests 01/27/22 05:00: 01/27/22 05:25: White Blood Count 9.8, Red Blood Count 2.03L, Hemoglobin 8.2L, Hematocrit 24L, Mean Corpuscular Volume 118H, Mean Corpuscular Hemoglobin 40H, Mean Corpuscular Hemoglobin Concent 34, Red Cell Distribution Width 13.3, Platelet Count 170, Mean Platelet Volume 10.0, Immature Granulocyte % (Auto) 1, Neutrophils (%) (Auto) 76H, Lymphocytes (%) (Auto) 13, Monocytes (%) (Auto) 10, Eosinophils (%) (Auto) 1, Basophils (%) (Auto) 0, Neutrophils # (Auto) 7.4, Lymphocytes # (Auto) 1.2, Monocytes # (Auto) 1.0, Eosinophils # (Auto) 0.1, Basophils # (Auto) 0.0, Immature Granulocyte # (Auto) 0.1, Sodium Level 135, Potassium Level 3.8, Chloride Level 105, Carbon Dioxide Level 21, Anion Gap 9, Blood Urea Nitrogen 14, Creatinine 0.58L, Estimat Glomerular Filtration Rate 112, BUN/Creatinine Ratio 24, Glucose Level 109H, Calcium Level 7.9L, Corrected Calcium 8.9, Magnesium Level 1.8, Total Bilirubin 1.3H, Aspartate Amino Transf (AST/SGOT) 38H , Alanine Aminotransferase (ALT/SGPT) 20, Alkaline Phosphatase 93, Total Protein 5.2L, Albumin 2.7L Assessment/Plan Assessment/Plan Assess & Plan/Chief Complaint Assessment: Left rib fractures Fall Splenic laceration Acute blood loss anemia from splenic hematoma Alcoholism CVA with left-sided weakness COPD Hypertension Anxiety Neuropathy Plan: Monitor hemoglobin Splenectomy may be required 01/26/2022: Consult anesthesia for left rib fracture pain block Consult Dr. Slade Monitor hemoglobin 01/27/2022: Monitor hemoglobin Supportive Care PT, OT Inpatient rehab Clinical Quality Measures Admission Status Admission Dx Assessment: Spleen laceration Grade 3 Rib 10, 11, 12 fractures Fall Anemia from splenic hematoma Left sided hemiparesis HTN Anxiety Depression Chronic Alcoholism DVT/VTE Risk/Contraindication: Contraindications-Pharm: Other *list below* Other: spleen lac with hematoma ROMANA CAMPBELL DO 01/28/22 0524: Subjective Subjective/Events-last exam Pt is doing a little better Hemoglobin is 8.2 Feels like he needs to be end of life and I had a long in depth conversation with him and he understood that he needed to participate and work on recovery. We clarified all that. In-patient rehab referral Review of Systems General: Fatigue, Malaise Neurological: Weakness Objective Exam General: Alert, Oriented X3, Cooperative, No Acute Distress Lungs: Clear to Auscultation, Normal Air Movement Heart: Regular Rate, Normal S1, Normal S2, No Murmurs Neuro: Other (Left-sided weakness) Psych/Mental Status: Mental Status NL, Mood NL Assessment/Plan Assessment/Plan Assess & Plan/Chief Complaint Supportive care Continue aggressive recovery Inpatient rehab Supervisory-Addendum Brief Verification & Attestation Participated in pt care: history, MDM, physical Personally performed: exam, history, MDM, supervision of care Care discussed with: Medical Student Procedures: n/a Results interpretation: Verified all documentation Verification and Attestation of Medical Student E/M Service A medical student performed and documented this service in my presence. I reviewed and verified all information documented by the medical student and made modifications to such information, when appropriate. I personally performed the physical exam and medical decision making. Romana Campbell, Jan 28, 2022,05:22 MINERVA CHIANG Jan 27, 2022 11:33 ROMANA CAMPBELL DO Jan 28, 2022 05:24
--- NOTE | 2022-01-27 12:05 | Physical Therapy Daily Note ---
PT Daily Note-Current Subjective Pt up in chair. Pt reluctant to participate. "I am real nervous about getting up. I am pretty loopy. I don't want to fall." Pt did not rate pain. "He just gave me pain medication. It is real low." Pt c/o dealing with bad teeth and is scheduled to have teeth extracted this evening. Mental Status Patient Orientation: Person, Place, Situation Attachments: Oxygen Transfers SCALE: Activities may be completed with or without assistive devices. 2-Nwhxwqztwe-tgejlst completes the activity by him/herself with no assistance from a helper. 5-Set-up or Clean-up Assistance-helper sets up or cleans up; patient completes activity. [place] assists only prior to or following the activity. 4-Supervision or Touching Assistance-helper provides verbal cues and/or touching/steadying and/or contact guard assistance as patient completes activity. Assistance may be provided throughout the activity or intermittently. 3-Partial/Moderate Assistance-helper does LESS THAN HALF the effort. [place] lifts, holds or supports trunk or limbs, but provides less than half the effort. 2-Substantial/Maximal Assistance-helper does MORE THAN HALF the effort. [place] lifts or holds trunk or limbs and provides more than half the effort. 5-Kknmryggj-baywax does ALL the effort. Patient does none of the effort to complete the activity. Or, the assistance of 2 or more helpers is required for the patient to complete the activity. If activity was not attempted, code reason: 7-Patient Refused. 9-Not Applicable-not attempted and the patient did not perform the activity before the current illness, exacerbation or injury. 10-Not Attempted due to Environmental Limitations-(lack of equipment, weather restraints, etc.). 88-Not Attempted due to Medical Conditions or Safety Concerns. Pt SBA from bedside chair. Weight Bearing Full Weight Bearing Full Weight Bearing Gait Training Gait Assistive Device: None Pt held onto this therapists arm for support. Pt amb with short shuffling steps due to fear of falling. Pt amb x 60ft. Exercises Seated Therapy Exercises: Ankle pumps, Long arc quads, Hip abd/add Seated Reps: 15 Assessment Current Status: Fair Progress Pt apprehensive and guarded throughout ambulation training. Pt was steady but held a firm youth advocate on this therapists arm. Pt would benefit from continued therapy to improve mobility and restore PLOF. Pt back to recliner with (B) LE elevated on pillow and call light in lap. Pt O2 insitu. PT Lower In Supervisor Goals Custodial Goals PT Lower In Supervisor Goals Time Frame: Feb 09, 2022 Roll Left & Right (QC): 6 Sit to Lying (QC): 6 Lying-Sitting on Side/Bed(QC): 6 Sit to Stand (QC): 6 Chair/Qze-oy-Jjtbi Xfer(QC): 6 Toilet Transfer (QC): 6 Car Transfer (QC): 6 Walk 10 feet (QC): 6 Walk 50ft with 2 Turns (QC): 6 Walk 150 ft (QC): 6 Walking 10ft on Uneven Surface: 6 Does the Pt use WC or Scooter?: No Type: N/A Type: N/A PT Plan Treatment/Plan Treatment Plan: Continue Plan of Care Treatment Plan: Bed Mobility, Education, Functional Activity Francesca, Functional Strength, Gait, Safety, Therapeutic Exercise, Transfers Treatment Duration: Feb 09, 2022 Frequency: 6 times per week Estimated Hrs Per Day: .25 hour per day Time/GCodes Time In: 1115 Time Out: 1145 Total Billed Treatment Time: 30 Total Billed Treatment 1, Ex x 10', Gait x 20' FABIANA KNIGHT CPTA Jan 27, 2022 12:05
[2022-01-27] MEDS: RT-ALBUTEROL/IPRATROPIUM 3 ML (DUONEB) VIAL INH SCH ×3 (14:32→21:19)
[2022-01-27 16:00] VITALS: BP 110/65
--- NOTE | 2022-01-27 17:09 | Progress Note ---
Subjective Date Seen by a Provider: Jan 27, 2022 Time Seen by a Provider: 17:00 Subjective/Events-last exam doing better. pain improved. still has tooth pain issues. dr. obando to see. has not had a BM in greater than 3 days. hb relatively stable. Objective Exam Vital Signs Date Time Temp Pulse Resp B/P (MAP) Pulse Ox O2 Delivery O2 Flow Rate FiO2 01/27/22 16:00 36.5 125 18 110/65 (80) 93 Room Air 01/27/22 14:38 92 Room Air 01/27/22 11:32 36.1 119 18 116/70 (85) 93 Nasal Cannula 1.00 01/27/22 10:38 37.1 01/27/22 07:45 37.1 86 20 114/73 (87) 97 Nasal Cannula 3.00 01/27/22 07:00 94 Nasal Cannula 1.00 01/27/22 04:00 37.2 104 22 107/75 (86) 96 Nasal Cannula 3.00 01/27/22 03:46 37.2 01/27/22 00:05 37.2 107 18 110/59 (76) 98 Nasal Cannula 4.00 01/26/22 20:20 37.1 109 20 107/78 (88) 96 Nasal Cannula 4.00 01/26/22 20:00 96 Nasal Cannula 3.00 I & O 01/27/22 07:00 Intake Total 920 ml Output Total 1200 ml Balance -280 ml Capillary Refill : Less Than 3 Seconds General Appearance: No Apparent Distress HEENT: PERRL/EOMI Neck: Full Range of Motion Respiratory: Decreased Breath Sounds Cardiovascular: Regular Rate, Rhythm Gastrointestinal: soft, distended Extremity: Normal Capillary Refill Neurologic/Psychiatric: Alert, Oriented x3 Skin: Normal Color Lymphatic: No Adenopathy Results Lab Laboratory Tests 01/27/22 05:00: 01/27/22 05:25: White Blood Count 9.8, Red Blood Count 2.03L, Hemoglobin 8.2L, Hematocrit 24L, Mean Corpuscular Volume 118H, Mean Corpuscular Hemoglobin 40H, Mean Corpuscular Hemoglobin Concent 34, Red Cell Distribution Width 13.3, Platelet Count 170, Mean Platelet Volume 10.0, Immature Granulocyte % (Auto) 1, Neutrophils (%) (Auto) 76H, Lymphocytes (%) (Auto) 13, Monocytes (%) (Auto) 10, Eosinophils (%) (Auto) 1, Basophils (%) (Auto) 0, Neutrophils # (Auto) 7.4, Lymphocytes # (Auto) 1.2, Monocytes # (Auto) 1.0, Eosinophils # (Auto) 0.1, Basophils # (Auto) 0.0, Immature Granulocyte # (Auto) 0.1, Sodium Level 135, Potassium Level 3.8, Chloride Level 105, Carbon Dioxide Level 21, Anion Gap 9, Blood Urea Nitrogen 14, Creatinine 0.58L, Estimat Glomerular Filtration Rate 112, BUN/Creatinine Ratio 24, Glucose Level 109H, Calcium Level 7.9L, Corrected Calcium 8.9, Magnesium Level 1.8, Total Bilirubin 1.3H, Aspartate Amino Transf (AST/SGOT) 38H , Alanine Aminotransferase (ALT/SGPT) 20, Alkaline Phosphatase 93, Total Protein 5.2L, Albumin 2.7L Assessment/Plan Assessment/Plan Assess & Plan/Chief Complaint same level fall with left rib fx 10-12 and splenic injury. increase ambulation. IS and breathing tx. pain control. continue to monitor Hb. start reglan in addition to miralax to stimulate bowel fxn. dr. Obando to see about tooth pain issue. Clinical Quality Measures DVT/VTE Risk/Contraindication: Contraindications-Pharm: Other *list below* Other: spleen lac with hematoma QAMAR BALDERAS MD Jan 27, 2022 17:09
[2022-01-27] MEDS: METOCLOPRAMIDE INJ 10 MG/2 ML (REGLAN) IVP SCH ×2 (18:07→23:40)
[2022-01-27 19:44] VITALS: BP 116/75
[2022-01-27 21:18] LABS: HEMOGLOBIN 10.2 g/dL (13.3-17.7)
[2022-01-27] MEDS: HYDROcodone/APAP 7.5 MG/325 MG (LORTAB, LORCET PLUS) TABLET PO PRN (23:45)
[2022-01-28] VITALS: BP 121/67
[2022-01-28 04:00] VITALS: BP 129/72
[2022-01-28] MEDS: KCL 10 MEQ TAB (MICRO K) PO SCH (05:33)
[2022-01-28] MEDS: MAGNESIUM OXIDE (MAG-OX)400 MG TAB PO SCH (05:33)
[2022-01-28] MEDS: METOCLOPRAMIDE INJ 10 MG/2 ML (REGLAN) IVP SCH (05:33)
[2022-01-28] MEDS: MULTIVIT W/MINERALS TAB (THERAGRAN M) PO SCH (05:33)
[2022-01-28 05:42] LABS: BASOPHILS % (AUTO) 0 % (0-10); EOSINOPHILS # (AUTO) 0.1 10^3/uL (0.0-0.3); EOSINOPHILS % (AUTO) 1 % (0-10); HEMATOCRIT 25 % (40-54); HEMOGLOBIN 8.6 g/dL (13.3-17.7); LYMPHOCYTES # (AUTO) 1.2 10^3/uL (1.0-4.0); LYMPHOCYTES % (AUTO) 11 % (12-44); MEAN CORPUSCULAR HEMOGLOBIN 40 pg (25-34); MEAN CORPUSCULAR HGB CONC 35 g/dL (32-36); MEAN CORPUSCULAR VOLUME 115 fL (80-99); MEAN PLATELET VOLUME 9.7 fL (9.0-12.2); MONOCYTES # (AUTO) 1.2 10^3/uL (0.0-1.0); MONOCYTES % (AUTO) 11 % (0-12); NEUTROPHILS # (AUTO) 8.1 10^3/uL (1.8-7.8); NEUTROPHILS % (AUTO) 76 % (42-75); PLATELET COUNT 207 10^3/uL (130-400); WHITE BLOOD COUNT 10.7 10^3/uL (4.3-11.0)
[2022-01-28 05:48] LABS: ALBUMIN 2.7 GM/DL (3.2-4.5); POTASSIUM 3.7 MMOL/L (3.6-5.0)
[2022-01-28 05:49] LABS: CALCIUM 8.2 MG/DL (8.5-10.1)
[2022-01-28 05:51] LABS: TOTAL PROTEIN 5.5 GM/DL (6.4-8.2)
[2022-01-28 05:52] LABS: BILIRUBIN,TOTAL 1.4 MG/DL (0.1-1.0)
[2022-01-28 05:54] LABS: CREATININE SERUM 0.63 MG/DL (0.60-1.30)
--- NOTE | 2022-01-28 06:05 | Progress Note ---
Subjective Date Seen by a Provider: Jan 28, 2022 Objective Exam Last Set of Vital Signs Vital Signs Date Time Temp Pulse Resp B/P (MAP) Pulse Ox O2 Delivery O2 Flow Rate FiO2 01/28/22 00:15 37.5 01/28/22 00:00 117 20 121/67 (85) 95 Room Air 01/27/22 21:19 1.00 Capillary Refill : Less Than 3 Seconds I&O Intake and Output 01/28/22 00:00 Intake Total 1280 ml Output Total 800 ml Balance 480 ml Intake Oral 1280 ml Output Urine Total 800 ml # Voids 3 Results Lab Laboratory Tests 01/27/22 21:11: Hemoglobin 10.2#L, Hematocrit 29L 01/28/22 05:12: Sodium Level 133L, Potassium Level 3.7, Chloride Level 101, Carbon Dioxide Level 22, Anion Gap 10, Blood Urea Nitrogen 14, Creatinine 0.63, Estimat Glomerular Filtration Rate 110, BUN/Creatinine Ratio 22, Glucose Level 104, Calcium Level 8.2L, Corrected Calcium 9.2, Total Bilirubin 1.4H, Aspartate Amino Transf (AST/SGOT) 37H, Alanine Aminotransferase (ALT/SGPT) 20, Alkaline Phosphatase 88, Total Protein 5.5L, Albumin 2.7L 01/28/22 05:28: Hemoglobin 8.6L, Hematocrit 25L, White Blood Count 10.7, Red Blood Count 2.15L, Mean Corpuscular Volume 115H, Mean Corpuscular Hemoglobin 40H, Mean Corpuscular Hemoglobin Concent 35, Red Cell Distribution Width 13.6, Platelet Count 207, Mean Platelet Volume 9.7, Immature Granulocyte % (Auto) 0, Neutrophils (%) (Auto) 76H, Lymphocytes (%) (Auto) 11L, Monocytes (%) (Auto) 11, Eosinophils (%) (Auto) 1, Basophils (%) (Auto) 0, Neutrophils # (Auto) 8.1H, Lymphocytes # (Auto) 1.2, Monocytes # (Auto) 1.2H, Eosinophils # (Auto) 0.1, Basophils # (A uto) 0.0, Immature Granulocyte # (Auto) 0.0 Assessment/Plan Assessment/Plan Assess & Plan/Chief Complaint Supportive care Continue aggressive recovery Inpatient rehab Diagnosis/Problems Diagnosis/Problems (1) Spleen laceration Status: Acute (2) Alcoholism Status: Chronic (3) Left-sided weakness Status: Acute (4) Hypertension Status: Chronic (5) Neuropathy Status: Chronic (6) Anxiety Status: Chronic (7) Gout (8) COPD (chronic obstructive pulmonary disease) Clinical Quality Measures Admission Status Admission Dx Assessment: Left rib fractures Fall Splenic laceration Acute blood loss anemia from splenic hematoma Alcoholism CVA with left-sided weakness COPD Hypertension Anxiety Neuropathy Plan: Monitor hemoglobin Splenectomy may be required DVT/VTE Risk/Contraindication: Contraindications-Pharm: Other *list below* Other: spleen lac with hematoma HARDY CAMPBELL DO Jan 28, 2022 06:05
[2022-01-28] MEDS: RT-ALBUTEROL/IPRATROPIUM 3 ML (DUONEB) VIAL INH SCH (06:40)
[2022-01-28 08:00] VITALS: BP 131/75
[2022-01-28] MEDS: DOCUSATE SODIUM 100 MG (COLACE) CAP PO SCH (08:39)
[2022-01-28] MEDS: SENNOSIDES 8.6 MG (SENOKOT) TAB PO SCH (08:39)
[2022-01-28] MEDS: FOLIC ACID 1 MG TAB PO SCH (08:39)
[2022-01-28] MEDS: PANTOPRAZOLE 40 MG (PROTONIX) TAB PO SCH (08:39)
[2022-01-28] MEDS: HYDROcodone/APAP 7.5 MG/325 MG (LORTAB, LORCET PLUS) TABLET PO PRN (09:35)
--- NOTE | 2022-01-28 10:11 | Discharge Summary ---
Diagnosis/Chief Complaint Date of Admission Jan 24, 2022 at 17:16 Date of Discharge Discharge Date: Jan 28, 2022 Discharge Diagnosis Assessment: Spleen laceration Grade 3 Rib 10, 11, 12 fractures Fall Anemia from splenic hematoma Left sided hemiparesis HTN Anxiety Depression Chronic Alcoholism Tachycardia sinus type but consulting Dr. Walker Plan: Aggressive rehab Reason Hospital Visit CC: Splenic laceration due to fall with rib fractures HPI: This is a 61 yr old WM, known to me from clinic for the past 17 years. He has a past medical history of alcoholism and hypertension. He suffered a catastrophic CVA 2 years ago and ultimately has become more and more disabled. He suffered a fall a few days ago, found to have severe rib pain. Finally presented to the ER and found to have a splenic laceration with hematoma and blood in his peritoneum. Dr. Balderas was consulted. IV fluids initiated for mild hypotension. CT scan showed stability with hematoma but hemoglobin did drop another point. is at the bedside. He will likely require a splenectomy. Discharge Summary Discharge Physical Examination Allergies: Coded Allergies: Sulfa (Sulfonamide Antibiotics) (Verified Allergy, Unknown, 01/24/22) Uncoded Allergies: SULFA (Allergy, Unknown, 01/24/22) Vitals & I&Os Vital Signs Date Time Temp Pulse Resp B/P (MAP) Pulse Ox O2 Delivery O2 Flow Rate FiO2 01/28/22 08:47 94 Nasal Cannula 2.00 01/28/22 08:00 37.2 121 18 131/75 (93) General Appearance: Alert, Oriented X3, Cooperative Respiratory: Clear to Auscultation Cardiovascular: Regular Rate Hospital Course Was the Problem List Reviewed?: Yes Patient had a brief hospital course after he was admitted for left-sided rib fractures which caused splenic laceration with hematoma and acute blood loss anemia. He did not require splenectomy. Alcoholism has been a continued issue but no alcohol withdrawal noted. Left-sided weakness from stroke 2 years ago will require inpatient rehab due to continued weakness and high risk for falls. Dr. BALDERAS managing everything conservatively patient was deemed stable to go to inpatient rehab. Labs (last 24 hrs) Laboratory Tests 01/24/22 15:20: White Blood Count 15.9H, Red Blood Count 3.18L, Hemoglobin 13.0L, Hematocrit 37L , Mean Corpuscular Volume 115H, Mean Corpuscular Hemoglobin 41H, Mean Corpuscular Hemoglobin Concent 36, Red Cell Distribution Width 13.2, Platelet Count 257, Mean Platelet Volume 10.5, Immature Granulocyte % (Auto) 1, N eutrophils (%) (Auto) 84H, Lymphocytes (%) (Auto) 9L, Monocytes (%) (Auto) 6, Eosinophils (%) (Auto) 0, Basophils (%) (Auto) 0, Neutrophils # (Auto) 13.3H, Lymphocytes # (Auto) 1.4, Monocytes # (Auto) 1.0, Eosinophils # (Auto) 0.1, Basophils # (Auto) 0.1, Immature Granulocyte # (Auto) 0.1, Neutrophils % (Manual) 85, Lymphocytes % (Manual) 7, Monocytes % (Manual) 8, Eosinophils % (Manual) 0, Basophils % (Manual) 0, Band Neutrophils 0, Macrocytosis MODERATE, Prothrombin Time 13.6, INR Comment 1.0, Sodium Level 138, Potassium Level 4.3, Chloride Level 104, Carbon Dioxide Level 16L, Anion Gap 18H, Blood Urea Nitrogen 10, Creatinine 0.88, Estimat Glomerular Filtration Rate 99, BUN/Creatinine Ratio 11, Glucose Level 152H, Calcium Level 8.8, Corrected Calcium 9.3, Total Bilirubin 1.6H, Aspartate Amino Transf (AST/SGOT) 95H, Alanine Aminotransferase (ALT/SGPT) 39, Alkaline Phosphatase 150H, Total Protein 6.5, Albumin 3.4, Serum Alcohol < 10 01/24/22 21:58: Hemoglobin 12.1L, Hematocrit 35L 01/25/22 04:38: White Blood Count 14.9H, Red Blood Count 2.68L, Hemoglobin 10.6L, Hematocrit 31L , Mean Corpuscular Volume 115H, Mean Corpuscular Hemoglobin 40H, Mean Corpuscular Hemoglobin Concent 34, Red Cell Distribution Width 13.3, Platelet Count 210, Mean Platelet Volume 10.3, Immature Granulocyte % (Auto) 0, Neutrophils (%) (Auto) 75, Lymphocytes (%) (Auto) 14, Monocytes (%) (Auto) 11, Eosinophils (%) (Auto) 0, Basophils (%) (Auto) 1, Neutrophils # (Auto) 11.1H, Lymphocytes # (Auto) 2.0, Monocytes # (Auto) 1.6H, Eosinophils # (Auto) 0.0, Basophils # (Auto) 0.1, Immature Granulocyte # (Auto) 0.1, Sodium Level 136, Potassium Level 4.6, Chloride Level 104, Carbon Dioxide Level 19L, Anion Gap 13, Blood Urea Nitrogen 15, Creatinine 0.93, Estimat Glomerular Filtration Rate 95, BUN/Creatinine Ratio 16, Glucose Level 124H, Calcium Level 8.2L, Corrected Calcium 9.1, Total Bilirubin 1.3H, Aspartate Amino Transf (AST/SGOT) 56H, Alanine Aminotransferase (ALT/SGPT) 30, Alkaline Phosphatase 128, Total Protein 5.5L, Albumin 2.9L, Phosphorus Level 3.6, Magnesium Level 1.4L 01/25/22 10:40: Hemoglobin 9.4L, Hematocrit 27L 01/26/22 04:33: White Blood Count 11.9H, Red Blood Count 2.12L, Hemoglobin 8.5L, Hematocrit 25L, Mean Corpuscular Volume 118H, Mean Corpuscular Hemoglobin 40H, Mean Corpuscular Hemoglobin Concent 34, Red Cell Distribution Width 13.5, Platelet Count 166, Mean Platelet Volume 10.0, Immature Granulocyte % (Auto) 0, Neutrophils (%) (Auto) 79H, Lymphocytes (%) (Auto) 10L, Monocytes (%) (Auto) 10, Eosinophils (%) (Auto) 0, Basophils (%) (Auto) 1, Neutrophils # (Auto) 9.4H, Lymphocytes # (Auto) 1.2, Monocytes # (Auto) 1.1H, Eosinophils # (Auto) 0.1, Basophils # (Auto) 0.1, Immature Granulocyte # (Auto) 0.1, Sodium Level 134L, Potassium Level 4.2, Chloride Level 104, Carbon Dioxide Level 20L, Anion Gap 10, Blood Urea Nitrogen 15, Creatinine 0.68, Estimat Glomerular Filtration Rate 107, BUN/Creatinine Ratio 22, Glucose Level 113H, Calcium Level 8.0L, Corrected Calcium 9.0, Phosphorus Level 2.5, Magnesium Level 1.9, Total Bilirubin 1.3H, Aspartate Amino Transf (AST/SGOT) 42H, Alanine Aminotransferase (ALT/SGPT) 23, Alkaline Phosphatase 107, Total Protein 5.4L, Albumin 2.7L 01/27/22 05:00: Iron Level 25L 01/27/22 05:25: White Blood Count 9.8, Red Blood Count 2.03L, Hemoglobin 8.2L, Hematocrit 24L, Mean Corpuscular Volume 118H, Mean Corpuscular Hemoglobin 40H, Mean Corpuscular Hemoglobin Concent 34, Red Cell Distribution Width 13.3, Platelet Count 170, Mean Platelet Volume 10.0, Immature Granulocyte % (Auto) 1, Neutrophils (%) (Auto) 76H, Lymphocytes (%) (Auto) 13, Monocytes (%) (Auto) 10, Eosinophils (%) (Auto) 1, Basophils (%) (Auto) 0, Neutrophils # (Auto) 7.4, Lymphocytes # (Auto) 1.2, Monocytes # (Auto) 1.0, Eosinophils # (Auto) 0.1, Basophils # (Auto) 0.0, Immature Granulocyte # (Auto) 0.1, Sodium Level 135, Potassium Level 3.8, Chloride Level 105, Carbon Dioxide Level 21, Anion Gap 9, Blood Urea Nitrogen 14, Creatinine 0.58L, Estimat Glomerular Filtration Rate 112, BUN/Creatinine Ratio 24, Glucose Level 109H, Calcium Level 7.9L, Corrected Calcium 8.9, Magnesium Level 1.8, Total Bilirubin 1.3H, Aspartate Amino Transf (AST/SGOT) 38H , Alanine Aminotransferase (ALT/SGPT) 20, Alkaline Phosphatase 93, Total Protein 5.2L, Albumin 2.7L 01/27/22 21:11: Hemoglobin 10.2#L, Hematocrit 29L 01/28/22 05:12: Sodium Level 133L, Potassium Level 3.7, Chloride Level 101, Carbon Dioxide Level 22, Anion Gap 10, Blood Urea Nitrogen 14, Creatinine 0.63, Estimat Glomerular Filtration Rate 110, BUN/Creatinine Ratio 22, Glucose Level 104, Calcium Level 8.2L, Corrected Calcium 9.2, Total Bilirubin 1.4H, Aspartate Amino Transf (AST/SGOT) 37H, Alanine Aminotransferase (ALT/SGPT) 20, Alkaline Phosphatase 88, Total Protein 5.5L, Albumin 2.7L 01/28/22 05:28: White Blood Count 10.7, Red Blood Count 2.15L, Hemoglobin 8.6L, Hematocrit 25L, Mean Corpuscular Volume 115H, Mean Corpuscular Hemoglobin 40H, Mean Corpuscular Hemoglobin Concent 35, Red Cell Distribution Width 13.6, Platelet Count 207, Mean Platelet Volume 9.7, Immature Granulocyte % (Auto) 0, Neutrophils (%) (Auto) 76H, Lymphocytes (%) (Auto) 11L, Monocytes (%) (Auto) 11, Eosinophils (%) (Auto) 1, Basophils (%) (Auto) 0, Neutrophils # (Auto) 8.1H, Lymphocytes # (Auto) 1.2, Monocytes # (Auto) 1.2H, Eosinophils # (Auto) 0.1, Basophils # (Auto) 0.0, Immature Granulocyte # (Auto) 0.0, Magnesium Level 1.7 Pending Labs Laboratory Tests 01/24/22 15:20: White Blood Count 15.9, Red Blood Count 3.18, Hemoglobin 13.0, Hematocrit 37, Mean Corpuscular Volume 115, Mean Corpuscular Hemoglobin 41, Mean Corpuscular Hemoglobin Concent 36, Red Cell Distribution Width 13.2, Platelet Count 257, Mean Platelet Volume 10.5, Immature Granulocyte % (Auto) 1, Neutrophils (%) (Auto) 84, Lymphocytes (%) (Auto) 9, Monocytes (%) (Auto) 6, Eosinophils (%) (Auto) 0, Basophils (%) (Auto) 0, Neutrophils # (Auto) 13.3, Lymphocytes # (Auto) 1.4, Monocytes # (Auto) 1.0, Eosinophils # (Auto) 0.1, Basophils # (Auto) 0.1, Immature Granulocyte # (Auto) 0.1, Neutrophils % (Manual) 85, Lymphocytes % (Manual) 7, Monocytes % (Manual) 8, Eosinophils % (Manual) 0, Basophils % (Manual) 0, Band Neutrophils 0, Macrocytosis MODERATE, Prothrombin Time 13.6, INR Comment 1.0, Sodium Level 138, Potassium Level 4.3, Chloride Level 104, Carbon Dioxide Level 16, Anion Gap 18, Blood Urea Nitrogen 10, Creatinine 0.88, Estimat Glomerular Filtration Rate 99, BUN/Creatinine Ratio 11, Glucose Level 152, Calcium Level 8.8, Corrected Calcium 9.3, Total Bilirubin 1.6, Aspartate Amino Transf (AST/SGOT) 95, Alanine Aminotransferase (ALT/SGPT) 39, Alkaline Phosphatase 150, Total Protein 6.5, Albumin 3.4, Serum Alcohol < 10 01/24/22 21:58: Hemoglobin 12.1, Hematocrit 35 01/25/22 04:38: White Blood Count 14.9, Red Blood Count 2.68, Hemoglobin 10.6, Hematocrit 31, Mean Corpuscular Volume 115, Mean Corpuscular Hemoglobin 40, Mean Corpuscular Hemoglobin Concent 34, Red Cell Distribution Width 13.3, Platelet Count 210, Mean Platelet Volume 10.3, Immature Granulocyte % (Auto) 0, Neutrophils (%) (Auto) 75, Lymphocytes (%) (Auto) 14, Monocytes (%) (Auto) 11, Eosinophils (%) (Auto) 0, Basophils (%) (Auto) 1, Neutrophils # (Auto) 11.1, Lymphocytes # (Auto) 2.0, Monocytes # (Auto) 1.6, Eosinophils # (Auto) 0.0, Basophils # (Auto) 0.1, Immature Granulocyte # (Auto) 0.1, Sodium Level 136, Potassium Level 4.6, Chloride Level 104, Carbon Dioxide Level 19, Anion Gap 13, Blood Urea Nitrogen 15, Creatinine 0.93, Estimat Glomerular Filtration Rate 95, BUN/Creatinine Ratio 16, Glucose Level 124, Calcium Level 8.2, Corrected Calcium 9.1, Total Bilirubin 1.3, Aspartate Amino Transf (AST/SGOT) 56, Alanine Aminotransferase (ALT/SGPT) 30, Alkaline Phosphatase 128, Total Protein 5.5, Albumin 2.9, Phosphorus Level 3.6, Magnesium Level 1.4 01/25/22 10:40: Hemoglobin 9.4, Hematocrit 27 01/26/22 04:33: White Blood Count 11.9, Red Blood Count 2.12, Hemoglobin 8.5, Hematocrit 25, Mean Corpuscular Volume 118, Mean Corpuscular Hemoglobin 40, Mean Corpuscular Hemoglobin Concent 34, Red Cell Distribution Width 13.5, Platelet Count 166, Mean Platelet Volume 10.0, Immature Granulocyte % (Auto) 0, Neutrophils (%) (Auto) 79, Lymphocytes (%) (Auto) 10, Monocytes (%) (Auto) 10, Eosinophils (%) (Auto) 0, Basophils (%) (Auto) 1, Neutrophils # (Auto) 9.4, Lymphocytes # (Auto) 1.2, Monocytes # (Auto) 1.1, Eosinophils # (Auto) 0.1, Basophils # (Auto) 0.1, Immature Granulocyte # (Auto) 0.1, Sodium Level 134, Potassium Level 4.2, Chloride Level 104, Carbon Dioxide Level 20, Anion Gap 10, Blood Urea Nitrogen 15, Creatinine 0.68, Estimat Glomerular Filtration Rate 107, BUN/Creatinine Ratio 22, Glucose Level 113, Calcium Level 8.0, Corrected Calcium 9.0, Phosphorus Level 2.5, Magnesium Level 1.9, Total Bilirubin 1.3, Aspartate Amino Transf (AST/SGOT) 42, Alanine Aminotransferase (ALT/SGPT) 23, Alkaline Phosphatase 107, Total Protein 5.4, Albumin 2.7 01/27/22 05:00: Iron Level 25 01/27/22 05:25: White Blood Count 9.8, Red Blood Count 2.03, Hemoglobin 8.2, Hematocrit 24, Mean Corpuscular Volume 118, Mean Corpuscular Hemoglobin 40, Mean Corpuscular Hemoglobin Concent 34, Red Cell Distribution Width 13.3, Platelet Count 170, Mean Platelet Volume 10.0, Immature Granulocyte % (Auto) 1, Neutrophils (%) (Auto) 76, Lymphocytes (%) (Auto) 13, Monocytes (%) (Auto) 10, Eosinophils (%) (Auto) 1, Basophils (%) (Auto) 0, Neutrophils # (Auto) 7.4, Lymphocytes # (Auto) 1.2, Monocytes # (Auto) 1.0, Eosinophils # (Auto) 0.1, Basophils # (Auto) 0.0, Immature Granulocyte # (Auto) 0.1, Sodium Level 135, Potassium Level 3.8, Chloride Level 105, Carbon Dioxide Level 21, Anion Gap 9, Blood Urea Nitrogen 14, Creatinine 0.58, Estimat Glomerular Filtration Rate 112, BUN/Creatinine Ratio 24, Glucose Level 109, Calcium Level 7.9, Corrected Calcium 8.9, Magnesium Level 1.8, Total Bilirubin 1.3, Aspartate Amino Transf (AST/SGOT) 38, Alanine Aminotransferase (ALT/SGPT) 20, Alkaline Phosphatase 93, Total Protein 5.2, Albumin 2.7 01/27/22 21:11: Hemoglobin 10.2, Hematocrit 29 01/28/22 05:12: Sodium Level 133, Potassium Level 3.7, Chloride Level 101, Carbon Dioxide Level 22, Anion Gap 10, Blood Urea Nitrogen 14, Creatinine 0.63, Estimat Glomerular Filtration Rate 110, BUN/Creatinine Ratio 22, Glucose Level 104, Calcium Level 8.2, Corrected Calcium 9.2, Total Bilirubin 1.4, Aspartate Amino Transf (AST/SGOT) 37, Alanine Aminotransferase (ALT/SGPT) 20, Alkaline Phosphatase 88, Total Protein 5.5, Albumin 2.7 01/28/22 05:28: White Blood Count 10.7, Red Blood Count 2.15, Hemoglobin 8.6, Hematocrit 25, Mean Corpuscular Volume 115, Mean Corpuscular Hemoglobin 40, Mean Corpuscular Hemoglobin Concent 35, Red Cell Distribution Width 13.6, Platelet Count 207, Mean Platelet Volume 9.7, Immature Granulocyte % (Auto) 0, Neutrophils (%) (Auto) 76, Lymphocytes (%) (Auto) 11, Monocytes (%) (Auto) 11, Eosinophils (%) (Auto) 1, Basophils (%) (Auto) 0, Neutrophils # (Auto) 8.1, Lymphocytes # (Auto) 1.2, Monocytes # (Auto) 1.2, Eosinophils # (Auto) 0.1, Basophils # (Auto) 0.0, Immature Granulocyte # (Auto) 0.0, Magnesium Level 1.7 Discharge Home Medications: Active Scripts Active Reported Klor-Con 10 (Potassium Chloride) 10 Meq Tablet.er 10 Meq PO DAILY Tylenol Extra Strength (Acetaminophen) 500 Mg Tablet 1,000 Mg PO Q8H PRN Advil (Ibuprofen) 200 Mg Capsule 400 Mg PO Q8H PRN Baclofen 10 Mg Tablet 10 Mg PO TID PRN Magnesium Oxide 400 Mg Tablet 400 Mg PO DAILY Atenolol 25 Mg Tablet 25 Mg PO DAILY Ativan (Lorazepam) 0.5 Mg Tablet 0.5 Mg PO BID PRN Instructions to patient/family Please see electronic discharge instructions given to patient. Diagnosis/Problems Diagnosis/Problems (1) Spleen laceration Status: Acute (2) Alcoholism Status: Chronic (3) Left-sided weakness Status: Acute (4) Hypertension Status: Chronic (5) Neuropathy Status: Chronic (6) Anxiety Status: Chronic (7) Gout (8) COPD (chronic obstructive pulmonary disease) Clinical Quality Measures DVT/VTE Risk/Contraindication: Contraindications-Pharm: Other *list below* Other: spleen lac with hematoma HARDY CAMPBELL DO Jan 28, 2022 10:11
== END 2022-01-28 10:29 | DRG 815 ==
LOC: EDUNIT# 14:33 → ER 14:34 → ICU 17:16 → ER 17:47 → 4TH 01-26 11:35
PROVIDERS: ADMIT Internal Medicine; ATTEND Internal Medicine
DX: S36.039A Unspecified laceration of spleen, initial encounter (principal); S22.42XA Multiple fractures of ribs, left side, initial encounter for closed fracture; D62 Acute posthemorrhagic anemia; I69.954 Hemiplegia and hemiparesis following unspecified cerebrovascular disease affecting left non-dominant side; S36.029A Unspecified contusion of spleen, initial encounter; W18.30XA Fall on same level, unspecified, initial encounter; I10 Essential (primary) hypertension; I95.9 Hypotension, unspecified; F10.20 Alcohol dependence, uncomplicated; J44.9 Chronic obstructive pulmonary disease, unspecified; F41.9 Anxiety disorder, unspecified; G62.9 Polyneuropathy, unspecified; M10.9 Gout, unspecified; F32.A Depression, unspecified; K58.9 Irritable bowel syndrome, unspecified; Z79.82 Long term (current) use of aspirin; Z87.891 Personal history of nicotine dependence
CPT/HCPCS: 36415; 70450; 71260; 72125; 74177; 74178; 80053; 80320; 83540; 83735; 84100; 85007; 85014; 85018; 85025; 85027; 85610; 86850; 86900; 86901; 86920; 94640; 94760; 96374; 96375; 96376

== ENCOUNTER 2022-01-28 09:40 | Inpatient (IN) | payer BC ==
[~2022-01-28] VITALS: Ht 183 cm; Wt 104.3 kg
[~2022-01-28 09:40] MED LIST changes: +ACET-2267 PO; +IBUP200C11 PO; +MGX400T PO; +POTA-160 PO
[2022-01-28] MEDS ORDERED: ACETAMINOPHEN 325 MG TABLET PO PRN ×2 (10:15→11:45)
[2022-01-28] MEDS ORDERED: diphenhydrAMINE 25 MG TAB (BENADRYL) PO PRN ×2 (10:15→11:45)
[2022-01-28] MEDS ORDERED: DOCUSATE SODIUM 100 MG (COLACE) CAP PO PRN (10:15)
[2022-01-28] MEDS ORDERED: MELATONIN 3 MG TABLET PO PRN (10:15)
[2022-01-28] MEDS ORDERED: LACTULOSE SYRUP 10GM/15ML (ENULOSE) 30ML UDC PO PRN (10:15)
[2022-01-28] MEDS ORDERED: ONDANSETRON 4 MG (ZOFRAN) ORAL DISSOLVE TAB PO PRN ×2 (10:15→11:45)
[2022-01-28] MEDS ORDERED: CALCIUM CARBONATE 500 MG (TUMS) TAB.CHEW PO PRN ×2 (10:15→11:45)
[2022-01-28] MEDS ORDERED: FLEET ENEMA ADULT 1 EA BTL PR PRN (10:15)
[2022-01-28] MEDS ORDERED: guaiFENesin/CODEINE (ROBITUSSIN AC) 10ML UDC PO PRN (10:15)
[2022-01-28] MEDS ORDERED: ALPRAZolam 0.25 MG (XANAX) TAB PO PRN (10:15)
[2022-01-28] MEDS ORDERED: LOPERAMIDE 2 MG (IMODIUM) TABLET PO PRN (10:15)
[2022-01-28] MEDS ORDERED: BISACODYL 10 MG SUPP (DULCOLAX) PR PRN ×2 (10:15→11:45)
[2022-01-28 10:45] VITALS: BP 128/63
[2022-01-28] MEDS ORDERED: MILK OF MAGNESIA 400 MG/5 ML 30 ML UDC PO PRN (11:45)
[2022-01-28] MEDS ORDERED: ONDANSETRON 4 MG/2 ML (SDV) Z0FRAN IV PRN (11:45)
[2022-01-28] MEDS ORDERED: LORazepam 0.5 MG (ATIVAN) TABLET PO PRN (11:45)
[2022-01-28] MEDS ORDERED: ANTACID SUSP 30 ML UDC (MYLANTA) PO PRN (11:45)
[2022-01-28] MEDS ORDERED: fentaNYL INJ 100 MCG/2 ML AMP IVP PRN (11:45)
[2022-01-28] MEDS ORDERED: ACETAMINOPHEN 500 MG TAB (TYLENOL) PO PRN (11:45)
[2022-01-28] MEDS ORDERED: diphenhydrAMINE 50 MG/ML INJ (BENADRYL) IVP PRN (11:45)
[2022-01-28] MEDS ORDERED: polyethylene glycoL POWDER 17 GM (MIRALAX) PACK PO PRN (11:45)
--- NOTE | 2022-01-28 11:45 | Physical Therapy Evaluation ---
PT Evaluation-General Medical Diagnosis Admission Date Jan 28, 2022 at 10:54 Medical Diagnosis: Spleen laceration Onset Date: Jan 24, 2022 Therapy Diagnosis Therapy Diagnosis: Impaired mobility, strength, activity tolerance Height/Weight Height (Feet): 6 Height (Inches): 2.00 Weight (Pounds): 220 Weight (Ounces): 8.8 Precautions Precautions/Isolations: Fall Prevention, Standard Precautions Weight Bear Status Full Weight Bearing Full Weight Bearing Referral Physician: Mauricio Reason for Referral: Evaluation/Treatment Medical History Pertinent Medical History: Alcoholism, CVA, HTN, Neuropathy Additional Medical History s/p fall at home resulting in multiple rib fractures and spleenic lac. Current History Transfer to ARU Reviewed History: Yes Social History Home: Single Level Current Living Status: Spouse Entry Into Home: Ramp, Stairs Without Railing PT Steps Into Home: 3 Prior Prior Level of Function SCALE: Activities may be completed with or without assistive devices. 0-Hssdttkkda-gvwslme completes the activity by him/herself with no assistance from a helper. 5-Set-up or Clean-up Assistance-helper sets up or cleans up; patient completes activity. [place] assists only prior to or following the activity. 4-Supervision or Touching Assistance-helper provides verbal cues and/or touching/steadying and/or contact guard assistance as patient completes activity. Assistance may be provided throughout the activity or intermittently. 3-Partial/Moderate Assistance-helper does LESS THAN HALF the effort. [place] lifts, holds or supports trunk or limbs, but provides less than half the effort. 2-Substantial/Maximal Assistance-helper does MORE THAN HALF the effort. [place] lifts or holds trunk or limbs and provides more than half the effort. 3-Csfpopyxb-zfzpge does ALL the effort. Patient does none of the effort to complete the activity. Or, the assistance of 2 or more helpers is required for the patient to complete the activity. If activity was not attempted, code reason: 7-Patient Refused. 9-Not Applicable-not attempted and the patient did not perform the activity before the current illness, exacerbation or injury. 10-Not Attempted due to Environmental Limitations-(lack of equipment, weather restraints, etc.). 88-Not Attempted due to Medical Conditions or Safety Concerns. Bed Mobility: 6 Transfers (B,C,W/C): 6 Gait: 6 Stairs: 6 Indoor Mobility (Ambulation): Independent Stairs: Independent Prior Devices Use: None Prior Device Use: Cane and FWW PT Evaluation-Current Subjective Patient reports that teeth feel better, but has more pain on the right side of his jaw. Patient still complains of L rib pain secondary to fracture. Pain Numeric Pain Scale: 0-No Pain Location: No Pain Reported Objective Patient Orientation: Person, Place, Time, Situation Attachments: Oxygen ROM/Strength ROM Lower Extremities WFL Strength Lower Extremities Grossly left 3-/5. Grossly R 4-/5 Integumentary/Posture Bowel Incontinence: No Bladder Incontinence: No Neuromuscular (Tone, Coordination, Reflexes) Intact Sensory Vision: Functional Hearing: Functional Sensation Right Lower Extremit: Impaired Sensation Left Lower Extremity: Impaired Transfers Roll Left & Right (QC): 2 Sit to Lying (QC): 3 Lying to Sitting/Side of Bed(Q: 2 Sit to Stand (QC): 4 Chair/Cot-qy-Mfyan Xfer(QC): 4 (CGA) Toilet Transfer (QC): 4 (CGA) Car Transfer (QC): 4 (CGA) Gait Does the Patient Walk?: Yes Mode of Locomotion: Walk Anticipated Mode of Locomotion: Walk Walk 10 feet (QC): 4 Walk 50 ft with 2 Turns(QC): 4 Walk 150 ft (QC): 4 Walking 10ft/uneven surface-QC: 4 Distance: 250'x1 100'x2 Gait Assistive Device: FWW Comments/Gait Description Patient required sitting recovery periods due to SOA, and elevated HR. Wheelchair Training Does the Pt Use a Wheelchair?: No Wheel 50 ft with 2 turns (QC): 9 Wheel 150 ft (QC): 9 Type of Wheelchair: N/A Stairs 1 Step (curb) (QC): 4 4 Steps (QC): 4 12 Steps (QC): 88 Balance Sitting Static: Normal Sitting Dynamic: Fair Standing Static: Good Standing Dynamic: Fair Picking up an Object (QC): 88 (Due to pt diminished balance, unsafe to perform at this time.) Treatment Pelvic Tilts 2x10, SAQ 2x10, SLR 2x10, Heel slides 1x10, Glute bridges 1x10 Assessment/Needs Patients SpO2 remained above 94% after first bout of walking, and at the end of treatment. Patient required several recovery periods with Functional activities, and LE exercises. Patient HR elevates with activity to 140's. Rehab Potential: Fair PT Senior Care Goals Senior Care Goals PT Senior Care Goals Time Frame: Feb 25, 2022 Roll Left & Right (QC): 6 Sit to Lying (QC): 6 Lying-Sitting on Side/Bed(QC): 6 Sit to Stand (QC): 6 Chair/Asc-cm-Rraak Xfer(QC): 6 Toilet Transfer (QC): 6 Car Transfer (QC): 6 Does the Patient Walk: Yes Walk 10 feet (QC): 6 Walk 50ft with 2 Turns (QC): 6 Walk 150 ft (QC): 6 Walking 10ft on Uneven Surface: 6 1 Step (curb) (QC): 6 4 Steps (QC): 6 12 Steps (QC): 6 Picking up an Object (QC): 6 Does the Pt use WC or Scooter?: No Wheel 50 feet with 2 turns (QC: 9 Type: N/A Wheel 150 feet: 9 Type: N/A PT Plan Problem List Problem List: Activity Tolerance, Functional Strength, Safety, Balance, Gait, Transfer, ROM Treatment/Plan Treatment Plan: Continue Plan of Care Treatment Plan: Bed Mobility, Concurrent Therapy, Education, Functional Acti vity Francesca, Functional Strength, Group Therapy, Gait, Safety, Therapeutic Exercise, Transfers Treatment Duration: Feb 25, 2022 Frequency: At least 5 of 7 days/Wk (IRF) Estimated Hrs Per Day: 1.5 hours per day Patient and/or Family Agrees t: Yes Safety Risks/Education Patient Education: Transfer Techniques, Reviewed Precautions, Correct Positioning, Disease Process, Safety Issues Teaching Recipient: Patient Teaching Methods: Discussion Response to Teaching: Verbalize Understanding Time/GCodes Time In: 1030 Time Out: 1140 Total Billed Treatment Time: 70 Total Billed Treatment 1 Visit EV low 10 min GT 20min FA 17min EX x 2 23min JENNA OWUSU PT Jan 28, 2022 11:45
--- NOTE | 2022-01-28 11:46 | PM&R Post Admission Assessment ---
PM&R HP Date of Visit: Jan 28, 2022 Time of Visit: 12:00 History of Present Illness Chief complaint: Debility following left rib fractures and splenic laceration with worsened left-sided weakness from prior stroke History of present illness: This is a 61-year-old white male clinic patient of mine with a past medical history of alcoholism and anxiety with previous CVA with residual left-sided weakness who presented to the inpatient rehab in need of recovery from fall which resulted in left-sided rib fractures and splenic laceration with hematoma and acute blood loss anemia. He did not require a splenectomy or transfusion. He is currently having sinus tachycardia of [address] Walker has been consulted I restarted his atenolol and will monitor patient closely. Alcoholism is a constant issue and highly recommended cessation as I always have. CC: Debility from splenic laceration secondary to rib fractures from fall HPI: 61yo WM with history of alcoholism, HTN, and CVA (2019) presents to inpatient rehab for debility from splenic laceration secondary to rib fractures from fall. On 01/24/22, went to ER after fall hitting left flank on table without LOC or head contusion. CT showed grade 3 splenic laceration with subcapsular hematoma and L rib 10,11, and [address] Solis for possible splenectomy. On 01/28, patient is admitted to inpatient rehab for PT, OT and will continue to monitor hemoglobin. PMH: Alcoholism, CVA, HTN, Neuropathy, COPD, Anxiety, Depression, Renal Failure, Chronic Diarrhea, IBS, Gout Allergies: Sulfa drugs (swelling) Meds: Acetaminophen (Tylenol Extra Strength) 500 Mg Tablet, 1,000 MG PO Q8H PRN for PAIN-MILD (1-4) Atenolol (Atenolol) 25 Mg Tablet, 25 MG PO DAILY Baclofen (Baclofen) 10 Mg Tablet, 10 MG PO TID PRN for MUSCLE SPASMS Ibuprofen (Advil) 200 Mg Capsule, 400 MG PO Q8H PRN for PAIN-MILD (1-4) Lorazepam (Ativan) 0.5 Mg Tablet, 0.5 MG PO BID PRN for ANXIETY Magnesium Oxide (Magnesium Oxide) 400 Mg Tablet, 400 MG PO DAILY Potassium Chloride (Klor-Con 10) 10 Meq Tablet.er, 10 MEQ PO DAILY FH: Mother (Neuropathy, Mitral valve prolapse) SH: Former smoker, Marijuana use, Drinks alcohol daily about gallon of Rum and Coke every 4 days ROS: Constitutional: No chills, No fever; malaise, weakness EENTM: No ear pain, No blurred vision, No eye pain, No throat pain Respiratory: No cough, No dyspnea on exertion, No hemoptysis Cardiovascular: No chest pain, No edema, No palpitations Gastrointestinal: No constipation, No diarrhea, No nausea, No vomiting Genitourinary: No dysuria, No frequency, No incontinence Musculoskeletal: No back pain, No neck pain Skin: No lesions, No lumps, No rash Psychiatric/Neurological: Anxiety; Denies Headache, Denies Numbness, Denies Tingling Exam: Vital Signs 01/28/22 10:45 Temp 37.2 Pulse 140 Resp 96 B/P (MAP) 128/63 (84) Pulse Ox 2 O2 Delivery Nasal Cannula O2 Flow Rate 2.00 General Appearance: No Apparent Distress, Anxious, Chronically ill, Obese HEENT: PERRL/EOMI, TMs Normal, Normal ENT Inspection, Pharynx Normal Neck: Full Range of Motion, Normal Inspection, Non Tender, Supple Respiratory: Chest Non Tender, Lungs Clear, Normal Breath Sounds, No Respiratory Distress Cardiovascular: Regular Rate, Rhythm, No Edema, No Murmur Gastrointestinal: Normal Bowel Sounds, Soft, Tenderness (LUQ) Back: Normal Inspection Extremity: Normal Inspection, Normal Range of Motion Neurologic/Psychiatric: Alert, Oriented x3, Normal Mood/Affect Skin: Normal Color, Warm/Dry Assessment: Left rib fractures Splenic laceration Acute blood loss anemia from splenic hematoma Alcoholism CVA with left-sided weakness COPD Hypertension Anxiety Neuropathy Falls Plan: 01/28/2022: Aggressive inpatient rehab Monitor hemoglobin Supportive Care Surgery, Dr. Solis following, splenectomy may be required BLAYNE HOLLINS 24, 2022 13:47 Past Lftphfl-Igpojq-Eswoeh Hx Past Med/Social Hx: Reviewed Nursing Past Med/Soc Hx, Reviewed and Corrections made Patient Social History Marrital Status: Employed/Student: unemployed Alcohol Beverage of Choice: Rum Smoking Status: Former Smoker Type Used: Cigarettes Recent Hopitalizations: No Immunizations Up To Date Pediatric: Yes Seasonal Allergies Seasonal Allergies: Yes Past Medical History Respiratory: COPD, Emphysema, Pneumonia Currently Using CPAP: No Currently Using BIPAP: No Cardiac: High Cholesterol, Hypertension Neurological: Neuropathy, Stroke Sexually Transmitted Disease: No HIV/AIDS: No Genitourinary: Renal Failure Gastrointestinal: Chronic Diarrhea, Irritable Bowel Musculoskeletal: Arthritis, Chronic Back Pain Hearing Impairment: Hard of Hearing Psychosocial: Anxiety History of Blood Disorders: No Adverse Reaction to Blood Miller: No Family History FH: neuropathy 19 MOTHER Mitral valve prolapse 19 MOTHER 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/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 PM&R Allergy/Meds/Data Review Allergies Coded Allergies: Sulfa (Sulfonamide Antibiotics) (Verified Allergy, Unknown, 01/24/22) Uncoded Allergies: SULFA (Allergy, Unknown, 01/24/22) Home Medications Scheduled Atenolol (Atenolol), 25 MG PO DAILY, (Reported) Magnesium Oxide (Magnesium Oxide), 400 MG PO DAILY, (Reported) Potassium Chloride (Klor-Con 10), 10 MEQ PO DAILY, (Reported) Scheduled PRN Acetaminophen (Tylenol Extra Strength), 1,000 MG PO Q8H PRN for PAIN-MILD (1-4), (Reported) Baclofen (Baclofen), 10 MG PO TID PRN for MUSCLE SPASMS, (Reported) Ibuprofen (Advil), 400 MG PO Q8H PRN for PAIN-MILD (1-4), (Reported) Lorazepam (Ativan), 0.5 MG PO BID PRN for ANXIETY, (Reported) Discontinued Medications Allopurinol (Allopurinol), 100 MG PO BIDPC Discontinued Reason: No Longer Taking Amlodipine Besylate (Amlodipine Besylate), 5 MG PO DAILY Discontinued Reason: No Longer Taking Aspirin (Aspirin EC), 325 MG PO DAILY Discontinued Reason: No Longer Taking Atorvastatin Calcium (Atorvastatin Calcium), 80 MG PO DAILY Discontinued Reason: No Longer Taking Baclofen (Baclofen), 10 MG PO Q4HR PRN for MUSCLE SPASMS Discontinued Reason: Duplicate Order Magnesium Oxide (Magnesium Oxide), 400 MG PO BID WITH MEALS Discontinued Reason: No Longer Taking Mirtazapine (Mirtazapine), 15 MG PO HS Discontinued Reason: No Longer Taking Multivits,Ca,Minerals/Iron/FA (Thera-M Tablet), 1 EA PO DAILY@0700 Discontinued Reason: No Longer Taking Naphazoline HCl/Pheniramine (Opcon-A Eye Drops), 2 DROPS OU QID PRN for EYE REDNESS, (Reported) Discontinued Reason: No Longer Taking Nicotine (Nicoderm Cq), 14 MG TD DAILY@0900 Discontinued Reason: No Longer Taking Potassium Chloride (K-Tab ER), 10 MEQ PO DAILY, (Reported) Discontinued Reason: No Longer Taking Current Medications Current Medications Reviewed Review of Systems Constitutional: see HPI, malaise, weakness EENTM: no symptoms reported Respiratory: no symptoms reported Cardiovascular: palpitations Gastrointestinal: abdominal pain, loss of appetite, nausea Genitourinary: no symptoms reported Musculoskeletal: back pain, joint pain Skin: no symptoms reported Psychiatric/Neurological: Anxiety, Depressed All Other Systems Reviewed Negative Unless Noted: Yes Physical Exam Physical Exam Vital Signs Capillary Refill : Height, Weight, BMI Height: 6'2.00" Weight: 220lbs. 8.8oz. [id number]; 30.45 BMI Method:Stated General Appearance: WD/WN, Anxious, Chronically ill, Mild Distress Eyes: Bilateral Eye Normal Inspection, Bilateral Eye PERRL HEENT: PERRL/EOMI, Normal ENT Inspection, Pharynx Normal Neck: Full Range of Motion, Normal Inspection, Non Tender, Supple, Carotid Bruit Respiratory: Chest Non Tender, Lungs Clear, Normal Breath Sounds, No Accessory Muscle Use, No Respiratory Distress Cardiovascular: No Edema, No Gallop, No JVD, No Murmur, Normal Peripheral Pulses, Tachycardia Gastrointestinal: Normal Bowel Sounds, No Organomegaly, No Pulsatile Mass, Non Tender, Soft Back: Normal Inspection, No CVA Tenderness, No Vertebral Tenderness Extremity: Normal Capillary Refill, Normal Inspection, Normal Range of Motion, Non Tender, No Calf Tenderness, No Pedal Edema Neurologic/Psychiatric: Alert, Oriented x3, Normal 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/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, 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 Norm as Tested, Motor Weakness (Left-sided weakness upper extremity > lower extremity) Skin: Normal Color, Warm/Dry Lymphatic: No Adenopathy PM&R Medical Assessment & Plan REHAB/MEDICAL ASSESSMENT AND PLAN: REHAB IMPAIRMENT GROUP: Debility from worsening left-sided weakness from prior CVA ETIOLOGIC DIAGNOSIS: Debility from worsening left-sided weakness from prior CVA The comorbidities that impact the patients function and/or functional outcome by: Prior CVA with left-sided weakness, alcoholism, anxiety, depression REHAB PLAN: The patient is being admitted to our comprehensive inpatient rehabilitation facility and can tolerate the intensity of service consisting of at least: 180 minutes of therapy a day, 5 out of 7 days a week Rehab treatment will consist of: PT and OT will focus on regaining function with rib fractures and splenectomy and worsening weakness from CVA residual le ft-sided weakness The patient/family has a good understanding of our discharge process and will benefit from an interdisciplinary inpatient rehabilitation program. The patient has potential to make improvement and is in need of at least two of the followi ng multidisciplinary therapies including but not limited to physical, occupational, speech, and prosthetics and orthotics. Additionally the patient will need services from respiratory, nutritional services, wound care, psychology, etc. (Customize this to each patient). Given the patients complex condition and risk of further medical complications, rehabilitation services cannot be safely or effectively provided at a lower level of care such as a senior living facility. BARRIERS TO DISCHARGE: Alcoholism with anxiety ESTIMATED LOS: 7 days DISPOSITION: Home RELEVANT CHANGES SINCE PREADMISSION SCREENING: I have compared the patients medical and functional status at the time of the preadmission screening and there are: no changes PROGNOSIS: Fair REHABILITATION GOALS: 1. PT and OT will focus on regaining function with rib fractures and splenectomy and worsening weakness from CVA residual left-sided weakness All the above goals were reviewed with the patient and he/she is in agreement. By signing this document, I acknowledge that I have personally performed a full physical examination on this patient within 24 hours of admission to this inpatient rehabilitation facility and have determined the patient to be able to tolerate the above course of treatment at an intensive level for a reasonable period of time. I will be completing a detailed individualized Plan of Care for this patient by day #4 of the patients stay based upon the Preadmission Screen, the Post-Admission Evaluation, and the therapy evaluations. Admission Dx/Comorbidities: (1) Left-sided weakness Status: Acute ICD Codes: R53.1 - Weakness (2) Spleen laceration Status: Acute ICD Codes: S36.039A - Unspecified laceration of spleen, initial encounter (3) Hypertension Status: Chronic ICD Codes: I10 - Essential (primary) hypertension (4) Neuropathy Status: Chronic ICD Codes: G62.9 - Polyneuropathy, unspecified (5) Anxiety Status: Chronic ICD Codes: F41.9 - Anxiety disorder, unspecified (6) Gout ICD Codes: M10.9 - Gout, unspecified (7) COPD (chronic obstructive pulmonary disease) ICD Codes: J44.9 - Chronic obstructive pulmonary disease, unspecified (8) Alcoholism Status: Chronic ICD Codes: F10.20 - Alcohol dependence, uncomplicated Assessment/Plan Assessment and Plan Assess & Plan/Chief Complaint Assessment: Debility following fall with left-sided rib fractures and splenic laceration Prior CVA with worsening left-sided weakness Multiple falls at home recently Alcoholism Anxiety Tachycardia Acute blood loss anemia Gout COPD Plan: Aggressive rehab Supportive care Monitor heart rate HARDY CAMPBELL DO Jan 28, 2022 11:46
[2022-01-28] MEDS: METOCLOPRAMIDE INJ 10 MG/2 ML (REGLAN) IVP SCH ×2 (12:00→16:46)
--- NOTE | 2022-01-28 12:10 | Occupational Therapy Eval ---
OT Evaluation-General/PLF Medical Diagnosis Admission Date Jan 28, 2022 at 10:54 Medical Diagnosis: Spleen laceration Onset Date: Jan 24, 2022 Therapy Diagnosis Therapy Diagnosis: decreased ADL status, impaired functional use LUE Height/Weight Height (Feet): 6 Height (Inches): 2.00 Weight (Pounds): 220 Weight (Ounces): 8.8 Precautions Precautions/Isolations: Fall Prevention, Standard Precautions Referral Physician: Mauricio Referral Reason: Evaluation/Treatment Medical History Pertinent Medical History: Alcoholism, CVA, HTN, Neuropathy Additional Medical History mitral valve prolapse, neuropathy, CVA, renal failure, IBS, GOUT, alcohol dependence (4 glasses of rum a day) Current History EMS from home wtih rib pain after fall, pt has fallen twice in the last 2 days. Xray revealed Left 10-12 rib fxs. Imaging also revealed spleen laceration. Pt transferred to ARU 01/28/22 for continued skilled therapy and medication management. Social History Home: Single Level Current Living Status: Spouse Entry Into Home: Ramp, Stairs Without Railing Steps Into Home: 2 ADL-Prior Level of Function SCALE: Activities may be completed with or without assistive devices. 8-Mwzlehfkop-cgsdkug completes the activity by him/herself with no assistance from a helper. 5-Set-up or Clean-up Assistance-helper sets up or cleans up; patient completes activity. [place] assists only prior to or following the activity. 4-Supervision or Touching Assistance-helper provides verbal cues and/or touching/steadying and/or contact guard assistance as patient completes activity. Assistance may be provided throughout the activity or intermittently. 3-Partial/Moderate Assistance-helper does LESS THAN HALF the effort. [place] lifts, holds or supports trunk or limbs, but provides less than half the effort. 2-Substantial/Maximal Assistance-helper does MORE THAN HALF the effort. [place] lifts or holds trunk or limbs and provides more than half the effort. 5-Nfsdibipd-isoogx does ALL the effort. Patient does none of the effort to complete the activity. Or, the assistance of 2 or more helpers is required for the patient to complete the activity. If activity was not attempted, code reason: 7-Patient Refused. 9-Not Applicable-not attempted and the patient did not perform the activity before the current illness, exacerbation or injury. 10-Not Attempted due to Environmental Limitations-(lack of equipment, weather restraints, etc.). 88-Not Attempted due to Medical Conditions or Safety Concerns. ADL PLOF Comments Pt reports IND with ADLs and functional mobility. He has no used any AD recently, and is able to complete self care tasks independently. Pt has a tub/shower with a SC and GBS. DME/Equipment: Bath Chair, Grab Bars, Tub/Shower DME/Equipment Comments owns walker, cane and w/c. OT Current Status Subjective Pt seated in recliner post PT tx. Pt states he doesn't remember working this hard the last time he was here. Mental Status/Objective Patient Orientation: Person, Place, Time, Situation Attachments: Oxygen Current Hand Dominance: Right Upper Extremity ROM RUE WFL LUE decreased. Shoulder flexion AROM to approx 40 degrees (limited by pain), WFL at elbow and wrist. Slightly decreased finger flexion/extension but functional. Upper Extremity Coordination Decreased LUE fine motor coordination Upper Extremity Sensation Tingling/numbness reported bilateral fingertips Upper Extremity Strength not formally tested due to rib pain with movements. ADL-Treatment Eating (QC): 7 Oral Hygiene (QC): 7 Shower/Bathe Self (QC): 7 Upper Body Dressing (QC): 7 Lower Body Dressing (QC): 7 On/Off Footwear (QC): 7 Toileting Hygiene (QC): 7 Other Treatments Pt seated upright in recliner, agreeable to OT evaluation. Pt provided information about PLOF and home set up, and participated in UE screen. Pt hyperverbal during session, requiring redirection. Pt instructed on POC with JOHNSTON returning this afternoon for continued tx, he verbalized understanding. Post tx, pt in recliner, call light in reach and all needs met. Education OT Patient Education: Correct positioning, Energy conservation, Modified ADL techniques, Progress toward Goal/Update tx plan, Purpose of tx/functional activities, Rehab process Teaching Recipient: Patient Teaching Methods: Discussion Response to Teaching: Verbalize Understanding OT Short Term Goals Short Term Goals Time Frame: Feb 16, 2022 Toileting hygiene: 4 Shower/bathe self: 4 Lower body dressin Putting on/taking off footwear: 4 OT Rv Repairer Goals Rv Repairer Goals Time Frame: Feb 26, 2022 Eating (QC): 6 Oral Hygiene (QC): 6 Toileting Hygiene (QC): 6 Shower/Bathe Self (QC): 6 Upper Body Dressing (QC): 6 Lower Body Dressing (QC): 6 On/Off Footwear (QC): 6 Additional Goals: 1-Demonstrate ADL Tasks, 2-Verbalize Understanding, 3- ImproveStrength/Francesca 1=Demonstrate adherence to instructed precautions during ADL tasks. 2=Patient will verbalize/demonstrate understanding of assistive devices/modifications for ADL. 3=Patient will improve strength/tolerance for activity to enable patient to perform ADL's. OT Education/Plan Problem List/Assessment Assessment: Decreased Activ Tolerance, Decreased UE Strength, Impaired Coordination, Impaired Funct Balance, Impaired I ADL's, Impaired Self-Care Skills, Restricted Funct UE ROM Discharge Recommendations Plan/Recommendations: Continue POC Treatment Plan/Plan of Care Patient would benefit from OT for education, treatment and training to promote independence in ADL's, mobility, safety and/or upper extremity function for ADL's. Plan of Care: ADL Retraining, Functional Mobility, Group Exercise/Act as Ind, UE Funct Exercise/Act, UE Neuromus Re-Ed/Coord Treatment Duration: Feb 26, 2022 Frequency: At least 5 of 7 days/Wk (IRF) Estimated Hrs Per Day: 1.5 hours per day Rehab Potential: Fair Time/GCodes Start Time: 11:40 Stop Time: 12:00 Total Time Billed (hr/min): 20 Billed Treatment Time 1CHLOE ADDISON OT Jan 28, 2022 12:10
--- NOTE | 2022-01-28 12:45 | ST Cognitive Linguistic Eval ---
Speech Evaluation-General Medical Diagnosis Spleen laceration Onset Date: Jan 24, 2022 Therapy Diagnosis Therapy Diagnosis: Intact Cognitive Linguistic Skills Precautions Precautions: Fall Precautions/Isolations: Fall Prevention, Standard Precautions Referral Referring Physician: Dr. Romana Martínez Reason for Referral: Evaluation/Treatment Medical History Pertinent Medical History: Alcoholism, CVA, HTN, Neuropathy Current History The patient is a 61 year old male with a past medical history of alcoholism, HTN , and CVA (2019), who presents to the inpatient rehabilitation facility for debility and splenic laceration secondary to rib fractures (s/p fall). Reviewed History: Yes Social History Current Living Status: Spouse Speech PLF-Current Status Prior Level of Function The patient reported independence with his ADL's prior to his most recent stroke. The patient denied novel concerns or difficulties with his speech, language, cognition, or swallowing. Subjective The patient was seated upright in a recliner, awake and alert upon entrance to his room by the clinician. The patient greeted the clinician appropriately and was agreeable to participation in the cognitive linguistic evaluation. Language Eval: Auditory Comprehends Simple Yes/No Ques: Functional Indent/Objects Multiple Garcia: Functional Ident/Pics in Multiple Garcia: Functional Follows 1-Step Commands: Functional Follows Complex Directions: Functional Follows General Conversations: Functional Language Eval: Verbal Language Completes Spontaneous Greeting: Functional Produces Auto, Serial Info: Functional Imitates Simple Words/Phrases: Functional Word Finding: Functional Requests Basic Needs: Functional States Basic Personal Info: Functional Expresses Complex Ideas: Functional Language Evaluation: Reading Follows Simple Written Direct: Functional Language Evaluation: Writing Writes to Simple Dictation: Functional Objective Cognitive Domain Attention: WNL Memory: WNL Problem Solving: Functional Executive Functions: WNL Visuospatial Skills: WNL Clock Drawing Severity Rating: WNL Objective Formal/Standardized Tests [facility] Mental Status Exam (UMS) Results The patient demonstrated a result of +29/30 correlating to neurocognitive skills within normal limits. Oral Motor/Speech Production The patient displays left labial weakness secondary to a prior stroke. The weakness impacts articulatory precision however the patient remains 100% intelligible in known and unknown contexts. Apraxia of speech is not present. Impression The patient demonstrated neurocognitive skills within normal limits. Skilled speech pathology services are not warranted at this time. Speech Patient Assess Expression of Ideas/Wants: Expression (4) Understanding Verbal Content: Understands (4) Brief Interview-Mental Status: No(pt is rarely/never understood) Repetition of Three Words: Three (3) Temporal Orientation: Year: Correct (3) Temporal Orientation: Month: Accurate within 5 days(2) Temporal Orientation: Day: Correct (1) Recall : Wear to say "Sock": Yes, no cue required (2) Recall : Color: Yes, no cue required (2) Recall : Bed: Yes, no cue required (2) Memory/Recall Ability: Current season, Staff names and faces, That he or she is in a hsp/hsp unit Speech-Plan Treatment Plan Speech Therapy Treatment Plan: Discontinue ST Frequency: 1 time per week Estimated Hrs Per Day: .5 hour per day Rehab Potential: Fair Pt/Family Agrees to Plan: Yes Safety Risks/Education Teaching Recipient: Patient Teaching Methods: Discussion Response to Teaching: Verbalize Understanding Education Topics Provided: Results, Recommendations, Plan of Care Time Speech Therapy Time In: 12:00 Speech Therapy Time Out: 12:30 Total Billed Time: 30 Billed Treatment Time 1, ANIA CAZARES ELIZABETH Jan 28, 2022 12:45
[2022-01-28] MEDS: ATENOLOL 50 MG (TENORMIN) TAB PO SCH (13:01)
[2022-01-28] MEDS: HYDROcodone/APAP 7.5 MG/325 MG (LORTAB, LORCET PLUS) TABLET PO PRN (13:01)
--- NOTE | 2022-01-28 13:10 | Occupational Ther Daily Note ---
OT Current Status-Daily Note Subjective Pt alert, sitting in recliner. Pt agrees to therapy. No c/o pain at this time. Mental Status/Objective Patient Orientation: Person, Place, Time, Situation Attachments: IV, Oxygen (2L), Telemetry ADL-Treatment Pt set up for eating. Pt agrees to shower. SBA to ambulate to bathroom using FWW with SBA. CGA for transfer to shower bench. Sitting on shower bench, pt able to cleanse all areas except buttocks/veronica area which pt cleanses in standing with CGA for safety. After set up, pt able to don/doff shirt by self. Pt able to thread L foot into pants then assist to thread R foot, pt pulls up B LE and hikes pants over hips in standing with CGA for safety. 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 Sitting at sink completes oral care independently. After therapy, pt sitting in recliner with call light/phone in reach. All needs met. Therapy Code Descriptions/Definitions Functional Mayes Measure: 0=Not Assessed/NA 4=Minimal Assistance 1=Total Assistance 5=Supervision or Setup 2=Maximal Assistance 6=Modified Mayes 3=Moderate Assistance 7=Complete IndependenceSCALE: Activities may be completed with or without assistive devices. 4-Lrortuhfjf-adlxaud completes the activity by him/herself with no assistance from a helper. 5-Set-up or Clean-up Assistance-helper sets up or cleans up; patient completes activity. [place] assists only prior to or following the activity. 4-Supervision or Touching Assistance-helper provides verbal cues and/or touching/steadying and/or contact guard assistance as patient completes activity. Assistance may be provided throughout the activity or intermittently. 3-Partial/Moderate Assistance-helper does LESS THAN HALF the effort. [place] lifts, holds or supports trunk or limbs, but provides less than half the effort. 2-Substantial/Maximal Assistance-helper does MORE THAN HALF the effort. [place] lifts or holds trunk or limbs and provides more than half the effort. 4-Howpzfaqh-zieczz does ALL the effort. Patient does none of the effort to complete the activity. Or, the assistance of 2 or more helpers is required for the patient to complete the activity. If activity was not attempted, code reason: 7-Patient Refused. 9-Not Applicable-not attempted and the patient did not perform the activity before the current illness, exacerbation or injury. 10-Not Attempted due to Environmental Limitations-(lack of equipment, weather restraints, etc.). 88-Not Attempted due to Medical Conditions or Safety Concerns. Eating (QC): 5 Oral Hygiene (QC): 6 Bathing Location: L Arm, R Arm, L Upper Leg, R Upper Leg, L Lower Leg (includin g foot), R Lower Leg (including foot), Chest, Abdomen, Buttocks, Perineal Area Shower/Bathe Self (QC): 4 Upper Body Dressing (QC): 5 Lower Body Dressing (QC): 3 On/Off Footwear: 2 (mod A) Toileting Hygiene (QC): 4 (per clinical judgment, pt able to complete with CGA.) Toilet Transfer (QC): 4 (per clinical judgment, SBA for safety.) OT Short Term Goals Short Term Goals Time Frame: Feb 16, 2022 Toileting hygiene: 4 Shower/bathe self: 4 Lower body dressin Putting on/taking off footwear: 4 OT [facility] Goals Director Equipment Goals Time Frame: Feb 26, 2022 Eating (QC): 6 Oral Hygiene (QC): 6 Toileting Hygiene (QC): 6 Shower/Bathe Self (QC): 6 Upper Body Dressing (QC): 6 Lower Body Dressing (QC): 6 On/Off Footwear (QC): 6 Additional Goals: 1-Demonstrate ADL Tasks, 2-Verbalize Understanding, 3- ImproveStrength/Francesca 1=Demonstrate adherence to instructed precautions during ADL tasks. 2=Patient will verbalize/demonstrate understanding of assistive devices/modifications for ADL. 3=Patient will improve strength/tolerance for activity to enable patient to perform ADL's. OT Education/Plan Problem List/Assessment Assessment: Decreased Activ Tolerance, Decreased UE Strength, Impaired Self- Care Skills, Restricted Funct UE ROM Discharge Recommendations Plan/Recommendations: Continue POC Treatment Plan/Plan of Care Patient would benefit from OT for education, treatment and training to promote independence in ADL's, mobility, safety and/or upper extremity function for ADL's. Plan of Care: ADL Retraining, Functional Mobility, Group Exercise/Act as Ind, UE Funct Exercise/Act, UE Neuromus Re-Ed/Coord Treatment Duration: Feb 26, 2022 Frequency: At least 5 of 7 days/Wk (IRF) Estimated Hrs Per Day: 1.5 hours per day Rehab Potential: Fair Time/GCodes Start Time: 13:05 Stop Time: 14:10 Total Time Billed (hr/min): 65 Billed Treatment Time 1 visit-ADL 4 (65 min) SUNIL DAMON Jan 28, 2022 13:10
--- NOTE | 2022-01-28 13:37 | Consultation-Cardiology ---
HPI-Cardiology Cardiology Consultation Date of Consultation 01/28/22 Date of Admission Time Seen by Provider: 12:45 Indication: Tachycardia HPI Patient is a 61 year old male with a history of CVA, HTN, HLD, and alcohol dependence that is currently at [facility] inpatient rehab facility. Four days ago, on 01/24/2022, patient came to [facility] ER after falling onto his coffee table and landing on his left ribs. Patient states that he got up in the middle of the night to go get a snack from the kitchen. He tripped over a blanket that was on the floor and landed directly onto his left lower ribs. Patient was found to have a splenic laceration with perisplenic hematoma,abdominal and pelivc hemoperitoneum, nondisplaced to minimally non-displaced posterolateral 10-12th rib fractures on the left, and bilateral pleural effusions with adjacent atelectasis or consolidation. Patient has also been noted to have tachycardia. Patient was treated with conservative management and transferred to inpatient rehab today, 01/28/22. Patient states that prior to the fall he was not having any chest pain, shortness of breath, headache, dizziness, light-headedness, or palpitations. Home Medications & Allergies Allergies: Coded Allergies: Sulfa (Sulfonamide Antibiotics) (Verified Allergy, Unknown, 01/24/22) Uncoded Allergies: SULFA (Allergy, Unknown, 01/24/22) Home Medication List Reviewed: Yes OIN-Vufonx-Agcqux Hx Patient Social History Marital Status: Employed/Student: retired Recreational Drug Use: No Smoking Status: Former Smoker Former smoker/When Quit: Jan 05, 2021 Type Used: Cigarettes Recent Hopitalizations: No Have you traveled recently?: No Alcohol Use?: No (states quit 6 months ago) Past Medical History Cryptogenic stroke Hypertension Hyperlipidemia Gout Neuropathy Atrial Fibrillation Family Medical History Significant Family History: Cancer (grandfather), COPD (grandfather), Diabetes (maternal grandmother), Hypertension, Psychiatric Problems (father-alzheimers), Vascular Disease (neuropathy; mother), 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/Hx Family History: FH: neuropathy 19 MOTHER Mitral valve prolapse 19 MOTHER Review of Systems-General Review of Systems Constitutional: see HPI; No diaphoresis, No dizziness; weakness EENTM: see HPI, dental problems (tooth pain); No blurred vision, No vision loss Respiratory: see HPI, cough, dyspnea on exertion, short of breath Cardiovascular: see HPI; No chest pain, No edema, No palpitations, No syncope Gastrointestinal: LUQ, see HPI; No nausea, No vomiting Genitourinary: see HPI; No dysuria, No frequency Musculoskeletal: see HPI, other (Left lower rib pain, pain with inspiration) Skin: no symptoms reported, see HPI Psychiatric/Neurological: Anxiety; Denies Headache; Pre-Existing Deficit (left side paresis post CVA) Physical Exam Physical Exam Vital Signs Vital Signs - First Documented 01/28/22 10:45 Temp 37.2 Pulse 140 Resp 96 B/P (MAP) 128/63 (84) Pulse Ox 2 O2 Delivery Nasal Cannula O2 Flow Rate 2.00 Capillary Refill : Height, Weight, BMI Height: 6'2.00" Weight: 220lbs. 8.8oz. [id number]; 30.45 BMI Method:Stated General Appearance: No Apparent Distress, WD/WN Eyes: Bilateral Eye Normal Inspection, Bilateral Eye PERRL, Bilateral Eye EOMI HEENT: PERRL/EOMI Neck: Normal Inspection, Non Tender, Supple Respiratory: No Accessory Muscle Use, No Respiratory Distress, Decreased Breath Sounds Cardiovascular: No Murmur, Normal Peripheral Pulses, Tachycardia Gastrointestinal: Non Tender, Soft, Other (LUQ pain to palpation over site of rib/splenic injury) Rectal: Deferred Back: Normal Inspection, No CVA Tenderness, No Vertebral Tenderness Extremity: Non Tender, No Calf Tenderness, Pedal Edema, Other (discoloration from distal 1/3 of tibia down) Neurologic/Psychiatric: Alert, Oriented x3, Normal Mood/Affect Skin: Normal Color, Warm/Dry Lymphatic: No Adenopathy A/P-Cardiology Admission Diagnosis Sinus Tachycardia Splenic laceration with perisplenic hematoma Abdominal and pelvic hemoperitoneum History of CVA Assessment/Plan Sinus Tachycardia of undetermined etiology Underlying etiology could be Hypoxia vs Anemia vs Septic vs thyroid causes Patient's hemoglobin down to 8.6 from 10.2 yesterday. Patient also has hemoperitoneum which is a nidus for potential bacterial infection. Plan on continuing to monitor patient's hemoglobin, CBC, CXR, and telemetry. Will also order a TSH to rule out/in hypo/hyperthyroidism In the meantime, will restart patient's atenolol to attempt rate control. Splenic laceration with perisplenic hematoma and hemoperitoneum Continue with conservative management per general surgery Continue to hold Aspirin Non-displaced left 10-12th left rib fracture Conservative management PT/OT Continue with IS until patient is able to better expand chest wall Hypertension Patient is maintained at home on amlodipine 5 and atenolol 25, currently managed by medical team Hyperlipidemia Patient is maintained at home on atorvastatin 80, currently managed by medical team History of CVA , Cryptogenic stroke. Patient maintained at home on aspirin, currently holding due to splenic laceration Continue to monitor telemetry History of loop monitor implantation done for cryptogenic stroke. We will continue to monitor and interpret rhythm Alcoholism Patient currently on CIWA protocol, managed by medical team Thank you for allowing us to participate in the management of Mr. Vu Supervisory-Addendum Brief Verification & Attestation Participated in pt care: history, MDM, physical Personally performed: exam, history, MDM, supervision of care Care discussed with: Medical Student Procedures: n/a Results interpretation: Verified all documentation Verification and Attestation of Medical Student E/M Service A medical student performed and documented this service in my presence. I reviewed and verified all information documented by the medical student and made modifications to such information, when appropriate. I personally performed the physical exam and medical decision making. Alexia Walker Jan 28, 2022,15:24 STELLA DELGADO Jan 28, 2022 13:37 ALEXIA WALKER MD Jan 28, 2022 14:19
--- NOTE | 2022-01-28 13:47 | Progress Note ---
BLAYNE HOLLINS 01/28/22 1347: Progress Note CC: Debility from splenic laceration secondary to rib fractures from fall HPI: 61yo WM with history of alcoholism, HTN, and CVA (2019) presents to inpatient rehab for debility from splenic laceration secondary to rib fractures from fall. On 01/24/22, went to ER after fall hitting left flank on table without LOC or head contusion. CT showed grade 3 splenic laceration with subcapsular hematoma and L rib 10,11, and [address] Solis for possible splenectomy. On 01/28, patient is admitted to inpatient rehab for PT, OT and will continue to monitor hemoglobin. PMH: Alcoholism, CVA, HTN, Neuropathy, COPD, Anxiety, Depression, Renal Failure, Chronic Diarrhea, IBS, Gout Allergies: Sulfa drugs (swelling) Meds: Acetaminophen (Tylenol Extra Strength) 500 Mg Tablet, 1,000 MG PO Q8H PRN for PAIN-MILD (1-4) Atenolol (Atenolol) 25 Mg Tablet, 25 MG PO DAILY Baclofen (Baclofen) 10 Mg Tablet, 10 MG PO TID PRN for MUSCLE SPASMS Ibuprofen (Advil) 200 Mg Capsule, 400 MG PO Q8H PRN for PAIN-MILD (1-4) Lorazepam (Ativan) 0.5 Mg Tablet, 0.5 MG PO BID PRN for ANXIETY Magnesium Oxide (Magnesium Oxide) 400 Mg Tablet, 400 MG PO DAILY Potassium Chloride (Klor-Con 10) 10 Meq Tablet.er, 10 MEQ PO DAILY FH: Mother (Neuropathy, Mitral valve prolapse) SH: Former smoker, Marijuana use, Drinks alcohol daily about gallon of Rum and Coke every 4 days ROS: Constitutional: No chills, No fever; malaise, weakness EENTM: No ear pain, No blurred vision, No eye pain, No throat pain Respiratory: No cough, No dyspnea on exertion, No hemoptysis Cardiovascular: No chest pain, No edema, No palpitations Gastrointestinal: No constipation, No diarrhea, No nausea, No vomiting Genitourinary: No dysuria, No frequency, No incontinence Musculoskeletal: No back pain, No neck pain Skin: No lesions, No lumps, No rash Psychiatric/Neurological: Anxiety; Denies Headache, Denies Numbness, Denies Tingling Exam: Vital Signs 01/28/22 10:45 Temp 37.2 Pulse 140 Resp 96 B/P (MAP) 128/63 (84) Pulse Ox 2 O2 Delivery Nasal Cannula O2 Flow Rate 2.00 General Appearance: No Apparent Distress, Anxious, Chronically ill, Obese HEENT: PERRL/EOMI, TMs Normal, Normal ENT Inspection, Pharynx Normal Neck: Full Range of Motion, Normal Inspection, Non Tender, Supple Respiratory: Chest Non Tender, Lungs Clear, Normal Breath Sounds, No Respiratory Distress Cardiovascular: Regular Rate, Rhythm, No Edema, No Murmur Gastrointestinal: Normal Bowel Sounds, Soft, Tenderness (LUQ) Back: Normal Inspection Extremity: Normal Inspection, Normal Range of Motion Neurologic/Psychiatric: Alert, Oriented x3, Normal Mood/Affect Skin: Normal Color, Warm/Dry Assessment: Left rib fractures Splenic laceration Acute blood loss anemia from splenic hematoma Alcoholism CVA with left-sided weakness COPD Hypertension Anxiety Neuropathy Falls Plan: 01/28/2022: Aggressive inpatient rehab Monitor hemoglobin Supportive Care Surgery, Dr. Solis following, splenectomy may be required ROMANA CAMPBELL DO 01/29/22 0543: Supervisory-Addendum Brief Verification & Attestation Participated in pt care: history, MDM, physical Personally performed: exam, history, MDM, supervision of care Care discussed with: Medical Student Procedures: n/a Results interpretation: Verified all documentation Verification and Attestation of Medical Student E/M Service A medical student performed and documented this service in my presence. I reviewed and verified all information documented by the medical student and made modifications to such information, when appropriate. I personally performed the physical exam and medical decision making. Romana Campbell Jan 29, 2022,05:43 BLAYNE HOLLINS Jan 28, 2022 13:47 ROMANA CAMPBELL DO Jan 29, 2022 05:43
[2022-01-28] MEDS: RT-ALBUTEROL/IPRATROPIUM 3 ML (DUONEB) VIAL INH SCH ×2 (14:47→22:10)
--- NOTE | 2022-01-28 15:05 | Progress Note ---
Subjective Date Seen by a Provider: Jan 28, 2022 Time Seen by a Provider: 15:00 Subjective/Events-last exam s/p same level fall with left rib fx 10-12 and grade 2-3 splenic laceration treated conservatively with no continued or recurrent bleed. doing well. tolerating diet. pain controlled. Objective Exam Vital Signs Date Time Temp Pulse Resp B/P (MAP) Pulse Ox O2 Delivery O2 Flow Rate FiO2 01/28/22 14:49 94 Nasal Cannula 2.00 01/28/22 10:45 37.2 140 96 128/63 (84) 2 Nasal Cannula 2.00 Capillary Refill : General Appearance: No Apparent Distress HEENT: PERRL/EOMI Neck: Full Range of Motion Respiratory: Lungs Clear Cardiovascular: Regular Rate, Rhythm Gastrointestinal: normal bowel sounds, soft, tenderness Extremity: Normal Capillary Refill Neurologic/Psychiatric: Alert, Oriented x3 Skin: Normal Color Lymphatic: No Adenopathy Results Lab Laboratory Tests 01/28/22 14:25: Assessment/Plan Assessment/Plan Assess & Plan/Chief Complaint s/p same level fall with left rib fx 10-12 and grade 2-3 splenic laceration treated conservatively with no continued or recurrent bleed. diet as tolerated. PT/OT and activity as tolerated. no heavy straining/contact activities for 6 weeks. QAMAR BALDERAS MD Jan 28, 2022 15:05
[2022-01-28 19:51] VITALS: BP 98/55
[2022-01-28 20:30] VITALS: BP 114/71
[2022-01-28] MEDS: SENNA W/DOCUSATE (SENOKOT S) TABLET PO SCH (20:56)
[2022-01-28] MEDS: DOCUSATE SODIUM 100 MG (COLACE) CAP PO SCH (20:56)
[2022-01-28] MEDS: polyethylene glycoL POWDER 17 GM (MIRALAX) PACK PO SCH (20:56)
[2022-01-28] MEDS: SENNOSIDES 8.6 MG (SENOKOT) TAB PO SCH (20:56)
[2022-01-28] MEDS ORDERED: DOCUSATE SODIUM 100 MG (COLACE) CAP PO SCH (21:00)
[2022-01-29] MEDS: METOCLOPRAMIDE INJ 10 MG/2 ML (REGLAN) IVP SCH ×5 (00:22→23:36)
[2022-01-29] MEDS: LORazepam 0.5 MG (ATIVAN) TABLET PO PRN (02:16)
[2022-01-29] MEDS: HYDROcodone/APAP 7.5 MG/325 MG (LORTAB, LORCET PLUS) TABLET PO PRN ×5 (02:19→21:00)
[2022-01-29] MEDS: MULTIVIT W/MINERALS TAB (THERAGRAN M) PO SCH (05:40)
[2022-01-29] MEDS: MAGNESIUM OXIDE (MAG-OX)400 MG TAB PO SCH (05:40)
[2022-01-29] MEDS: KCL 10 MEQ TAB (MICRO K) PO SCH (05:40)
[2022-01-29 06:01] LABS: EOSINOPHILS # (AUTO) 0.1 10^3/uL (0.0-0.3); EOSINOPHILS % (AUTO) 1 % (0-10); HEMATOCRIT 23 % (40-54); MEAN CORPUSCULAR VOLUME 118 fL (80-99)
[2022-01-29 06:03] LABS: BASOPHILS % (AUTO) 0 % (0-10); HEMOGLOBIN 7.7 g/dL (13.3-17.7); LYMPHOCYTES # (AUTO) 0.8 10^3/uL (1.0-4.0); LYMPHOCYTES % (AUTO) 14 % (12-44); MEAN CORPUSCULAR HEMOGLOBIN 40 pg (25-34); MEAN CORPUSCULAR HGB CONC 34 g/dL (32-36); MEAN PLATELET VOLUME 9.9 fL (9.0-12.2); MONOCYTES # (AUTO) 0.6 10^3/uL (0.0-1.0); MONOCYTES % (AUTO) 10 % (0-12); NEUTROPHILS # (AUTO) 4.6 10^3/uL (1.8-7.8); NEUTROPHILS % (AUTO) 74 % (42-75); PLATELET COUNT 56 10^3/uL (130-400); WHITE BLOOD COUNT 6.2 10^3/uL (4.3-11.0)
--- NOTE | 2022-01-29 06:03 | Individualized Plan of Care ---
Individualized Plan of Care Rehab Nursing IPOC Order Admission Date Jan 28, 2022 at 10:54 Current Orders Orders Admission Order(Inpt,Obs,Sdc) (01/28/22 10:12) Vital Signs: Per Unit Policy ( 08,16,00 (01/28/22 10:12) Juan Luo (01/28/22 10:12) Sequential Compression Device (01/28/22 10:12) Fruit Bar Maker-Inpt Rehab Con (01/28/22 10:12) Rehab Nursing Orders-Ipoc (01/28/22 10:12) Physical Therapy Rehab Orders (01/28/22 10:12) Occupational Therapy Rehab Ord (01/28/22 10:12) Speech Therapy Rehab Orders (01/28/22 10:12) Cbc With Automated Diff (01/29/22 06:00) Comprehensive Metabolic Panel (01/29/22 06:00) Precautions (Aru) (01/28/22 10:12) Weekly Weight WEEK (01/28/22 10:12) Rehab-Intensity Of Therapy (01/28/22 10:12) Initiate Admission Nursing Pro .admission (01/28/22 10:12) Alprazolam Tablet (Xanax Tablet) (01/28/22 10:15) Calcium Carbonate Chew Tablet (Antacid C (01/28/22 10:15) Diphenhydramine Tablet (Benadryl Tablet) (01/28/22 10:15) Docusate Sodium Capsule (Colace Capsule) (01/28/22 21:00) Docusate Sodium Capsule (Colace Capsule) (01/28/22 10:15) Bisacodyl Suppository (Dulcolax Supposit (01/28/22 10:15) Lactulose Oral Solution (Enulose Oral So (01/28/22 10:15) Na Phos/Na Biphos Enema (Fleet Enema Akhil (01/28/22 10:15) Guaifenesin/Codeine Syrup (Robitussin Ac (01/28/22 10:15) Loperamide Tablet (Imodium Tablet) (01/28/22 10:15) Melatonin Tablet (Melatonin Tablet) (01/28/22 10:15) Polyethylene Glycol Powder Pkt (Miralax (01/28/22 21:00) Ondansetron Oral Dissolve Tab (Zofran (01/28/22 10:15) Senna S Tablet (Senokot S Tablet) (01/28/22 21:00) Acetaminophen Tablet/Caplet (Tylenol T (01/28/22 10:15) Code/Resuscitation (01/28/22 10:12) Transfer - Bed/Room/Location (01/28/22 10:40) Incentive Spirometry (Nursing) Q2H (01/28/22 11:41) Oxygen-Administer 07,19 (01/28/22 11:41) General/Regular (01/28/22 Lunch) Acetaminophen Tablet (Tylenol Tablet) (01/28/22 11:45) Albuterol/Ipra Inhalation Soln (Duoneb I (01/28/22 14:00) Baclofen Tablet (Lioresal Tablet) (01/28/22 11:45) Diphenhydramine Injection (Benadryl Inje (01/28/22 11:45) Diphenhydramine Tablet (Benadryl Tablet) (01/28/22 11:45) Docusate Sodium Capsule (Colace Capsule) (01/28/22 21:00) Bisacodyl Suppository (Dulcolax Supposit (01/28/22 11:45) Lactulose Oral Solution (Enulose Oral So (01/28/22 11:45) Folic Acid Tablet (Folic Acid Tablet) (01/29/22 09:00) Hydrocodone/Apap 7.5/325 Tab (Lortab 7. (01/28/22 11:45) Iron Sucrose Injection (Venofer Injectio (01/30/22 09:00) Lorazepam Tablet (Ativan Tablet) (01/28/22 11:45) Magnesium Oxide Tablet (Mag Ox Tablet) (01/29/22 07:00) Melatonin Tablet (Melatonin Tablet) (01/28/22 11:45) Metoclopramide Injection (Reglan Injecti (01/28/22 12:00) Magnesium Hydroxide Oral Susp (Mom Oral (01/28/22 11:45) Polyethylene Glycol Powder Pkt (Miralax (01/28/22 11:45) Therapeutic Multivitamin Tab (Vitamins, (01/29/22 07:00) Antacid Suspension (Mylanta Suspension (01/28/22 11:45) Pantoprazole Tablet (Protonix Tablet) (01/29/22 09:00) Potassium Chloride (Tablet) (Klor Con Ta (01/29/22 07:00) Sennosides Tablet (Senokot Tablet) (01/28/22 21:00) Calcium Carbonate Chew Tablet (Antacid C (01/28/22 11:45) Acetaminophen Tablet/Caplet (Tylenol T (01/28/22 11:45) Ondansetron Injection (Zofran Injectio (01/28/22 11:45) Ondansetron Oral Dissolve Tab (Zofran (01/28/22 11:45) Fentanyl Inj (Sublimaze Injection) (01/28/22 11:45) Consult General Surgery (01/28/22 11:41) Mat Initiate Protocol (01/28/22 11:41) Oxygen Delivery Set Up (01/28/22 11:41) Svn Small Volume Nebulizer (01/28/22 11:41) Ekg Tracing (01/28/22 11:41) Consult Cardiology (01/28/22 11:41) Patient Visit (01/28/22 ) Speech Sound Lang Comp (01/28/22 ) Treat. Speech/Lang/Voice (01/28/22 ) Atenolol Tablet (Tenormin Tablet) (01/28/22 12:15) Lorazepam Tablet (Ativan Tablet) (01/28/22 12:15) Thyroid Stimulating Hormone (01/28/22 13:28) Patient Visit (01/28/22 ) Pt Eval Moderate Complexity (01/28/22 ) Gait Training, Ea 15 Min (01/28/22 ) Functional Activities, Ea 15 (01/28/22 ) Exercise Therap, Ea 15 Min (01/28/22 ) Venous Access Request Order (01/29/22 12:14) Picc Cap(S) Change Q7D (02/05/22 14:00) Picc Dressing/Securement Devic Q7D (02/05/22 14:00) Patient Visit (01/29/22 ) Functional Activities, Ea 15 (01/29/22 ) Exercise Therap, Ea 15 Min (01/29/22 ) Gait Training, Ea 15 Min (01/29/22 ) Vitamin B 12 (01/29/22 21:07) Rehab Nursing Orders: Ongoing Assess. of Cognitive Status, Ongoing Assess. of Function Status, Bladder Management, Bladder Scan, Bladder Training, Bowel Gisselle gement, Bowel Training, Disease Management & Educaiton, DVT Prophylaxis, Fall Prevention, Fluid/Electrolyte/Nutrition Mgmt, Infection Prevention, Medication Management & Education, Management of Risks & Complications, Nutrition Management, Pain Management, Patient/Family Support, Safety Management, Swallow Precautions, Weight Bearing Precaution Intensity of Therapy to be met Patient to be seen: Min.3h per day/5 of 7d PT IPOC Problem List: Activity Tolerance, Functional Strength, Safety, Balance, Gait, Transfer, ROM Treatment Plan: Continue Plan of Care Bed Mobility, Concurrent Therapy, Education, Functional Activity Francesca, Functional Strength, Group Therapy, Gait, Safety, Therapeutic Exercise, Transfers Treatment Duration: Feb 25, 2022 Frequency: At least 5 of 7 days/Wk (IRF) Estimated Hrs Per Day: 1.5 hours per day OT IPOC Problems: Decreased Activ Tolerance, Decreased UE Strength, Impaired Self-Care Skills, Restricted Funct UE ROM OT Treatment, Training and Edu: Yes Plan of Care: ADL Retraining, Functional Mobility, Group Exercise/Act as Ind, UE Funct Exercise/Act, UE Neuromus Re-Ed/Coord Treatment Duration: Feb 26, 2022 Frequency: At least 5 of 7 days/Wk (IRF) Estimated Hrs Per Day: 1.[address] IPOC Speech Therapy Treatment Plan: Discontinue ST Treatment Duration: Jan 28, 2022 Frequency: 1 time per week Estimated Hrs Per Day: .5 hour per day Fruit Bar Maker/Case Mgmt Fruit Bar Maker/Case Managemen: Discharge Planning Dietitian/Ordnance Officer Dietitian/Ordnance Officer to monitor nutritional status and make changes and/or recommendations as needed and work with speech pathology on dietary upgrades as the occur. Physician IPOC Medical Issues being managed closely and that require the 24 hour availability of a physician: Recent fall with rib fractures and splenic laceration with acute blood loss anemia with splenic hematoma will require close monitoring for any type of decompensation due to history of CVA with left-sided weakness Medical Issues: Bowel/Bladder Function, DVT Prophylaxis, Falls Precautions, Fluid/Electrolyte/Nutrition Balance, Infection Protection, Pain Management Brief Synthesis of Preadmission Screen, Post-Admission Evaluation, and Therapy Evaluations: PT and OT will focus on regaining function with assistive devices to work on left-sided weakness from CVA residual along with acute blood loss anemia with weakness Medical Prognosis: Good Anticipated Length of Stay: 7 days HARDY CAMPBELL DO Jan 29, 2022 06:03
--- NOTE | 2022-01-29 06:03 | PM&R Progress Note ---
Subjective HPI/CC On Admission Date Seen by Provider: Jan 29, 2022 Time Seen by Provider: 12:30 Subjective/Events-last exam 01/29/2022: Pt is doing pretty well Hemoglobin is 7.7 PICC line will be provided since he has poor venous access IV iron initiated Heart rate is 118 Small bowel movement yesterday, gave him all the laxatives Review of Systems General: Fatigue, Malaise Gastrointestinal: Abdominal Pain Objective Exam Vital Signs Vital Signs Date Time Temp Pulse Resp B/P (MAP) Pulse Ox O2 Delivery O2 Flow Rate FiO2 01/29/22 19:20 37.5 99 20 98/65 (76) 93 Nasal Cannula 3.00 Capillary Refill : General Appearance: WD/WN, Anxious, Chronically ill, Mild Distress HEENT: PERRL/EOMI, Normal ENT Inspection, Pharynx Normal Neck: Full Range of Motion, Normal Inspection, Non Tender, Supple, Carotid Bruit Respiratory: Chest Non Tender, Lungs Clear, Normal Breath Sounds, No Accessory Muscle Use, No Respiratory Distress Cardiovascular: No Edema, No Gallop, No JVD, No Murmur, Normal Peripheral Pulses, Tachycardia Gastrointestinal: Normal Bowel Sounds, No Organomegaly, No Pulsatile Mass, Non Tender, Soft Rectal: Deferred Back: Normal Inspection, No CVA Tenderness, No Vertebral Tenderness Extremity: Normal Capillary Refill, Normal Inspection, Normal Range of Motion, Non Tender, No Calf Tenderness, No Pedal Edema Neurologic/Psychiatric: Alert, Oriented x3, Normal Mood/Affect, ct scan special procedures technologist II-XII Norm as Tested, Motor Weakness (Left-sided weakness upper extremity > lower ex tremity) Skin: Normal Color, Warm/Dry Lymphatic: No Adenopathy Results/Procedures Lab Laboratory Tests 01/29/22 05:52 Patient resulted labs reviewed. FIM Transfers Therapy Code Descriptions/Definitions Functional [place] Measure: 0=Not Assessed/NA 4=Minimal Assistance 1=Total Assistance 5=Supervision or Setup 2=Maximal Assistance 6=Modified [place] 3=Moderate Assistance 7=Complete IndependenceSCALE: Activities may be completed with or without assistive devices. 8-Qysntnltul-lzqwgff completes the activity by him/herself with no assistance from a helper. 5-Set-up or Clean-up Assistance-helper sets up or cleans up; patient completes activity. [place] assists only prior to or following the activity. 4-Supervision or Touching Assistance-helper provides verbal cues and/or touc christian/steadying and/or contact guard assistance as patient completes activity. Assistance may be provided throughout the activity or intermittently. 3-Partial/Moderate Assistance-helper does LESS THAN HALF the effort. [place] lifts, holds or supports trunk or limbs, but provides less than half the effort. 2-Substantial/Maximal Assistance-helper does MORE THAN HALF the effort. [place] lifts or holds trunk or limbs and provides more than half the effort. 3-Gsnsddypw-uptbxg does ALL the effort. Patient does none of the effort to complete the activity. Or, the assistance of 2 or more helpers is required for the patient to complete the activity. If activity was not attempted, code reason: 7-Patient Refused. 9-Not Applicable-not attempted and the patient did not perform the activity be fore the current illness, exacerbation or injury. 10-Not Attempted due to Environmental Limitations-(lack of equipment, weather restraints, etc.). 88-Not Attempted due to Medical Conditions or Safety Concerns. Roll Left to Right (QC): 2 Sit to Lying (QC): 3 Sit to Stand (QC): 4 Chair/Fev-vz-Qmeki Xfer(QC): 4 (CGA) Car Transfer (QC): 4 (CGA) Gait Training Does the Patient Walk?: Yes Walk 10 feet (QC): 4 Walk 50 ft with 2 Turns(QC): 4 Walk 150 ft (QC): 4 Walking 10ft/uneven surface-QC: 4 Gait Assistive Device: FWW Wheelchair Training Does the Pt Use a Wheelchair?: No Wheel 50 ft with 2 turns (QC): 9 Wheel 150 ft (QC): 9 Type of Wheelchair: N/A Stair Training 1 Step (curb) (QC): 4 4 Steps (QC): 4 12 Steps (QC): 88 Balance Picking up an Object (QC): 88 (Due to pt diminished balance, unsafe to perform at this time.) ADL-Treatment Eating (QC): 5 Oral Hygiene (QC): 6 Bathing Location: L Arm, R Arm, L Upper Leg, R Upper Leg, L Lower Leg (including foot), R Lower Leg (including foot), Chest, Abdomen, Buttocks, Perineal Area Shower/Bathe Self (QC): 4 Upper Body Dressing (QC): 5 Lower Body Dressing (QC): 3 On/Off Footwear (QC): 2 (mod A) Toileting Hygiene (QC): 4 (per clinical judgment, pt able to complete with CGA.) Toilet Transfer (QC): 4 (per clinical judgment, SBA for safety.) Assessment/Plan Assessment and Plan Assess & Plan/Chief Complaint Assessment: Debility following fall with left-sided rib fractures and splenic laceration Prior CVA with worsening left-sided weakness Multiple falls at home recently Alcoholism Anxiety Tachycardia Acute blood loss anemia Gout COPD Plan: Aggressive rehab Supportive care Monitor heart rate 01/29/2022: Supportive care Monitor hemoglobin Iron infusions (1) Left-sided weakness Status: Acute (2) Spleen laceration Status: Acute (3) Hypertension Status: Chronic (4) Neuropathy Status: Chronic (5) Anxiety Status: Chronic (6) Gout (7) COPD (chronic obstructive pulmonary disease) (8) Alcoholism Status: Chronic HARDY CAMPBELL DO Jan 29, 2022 06:03
[2022-01-29 06:15] LABS: ALBUMIN 2.7 GM/DL (3.2-4.5); POTASSIUM 3.6 MMOL/L (3.6-5.0)
[2022-01-29 06:16] LABS: CALCIUM 8.1 MG/DL (8.5-10.1)
[2022-01-29 06:18] LABS: TOTAL PROTEIN 5.2 GM/DL (6.4-8.2)
[2022-01-29 06:20] LABS: BILIRUBIN,TOTAL 1.6 MG/DL (0.1-1.0)
[2022-01-29 06:21] LABS: CREATININE SERUM 0.62 MG/DL (0.60-1.30)
[2022-01-29] MEDS: RT-ALBUTEROL/IPRATROPIUM 3 ML (DUONEB) VIAL INH SCH ×3 (07:28→21:08)
[2022-01-29 07:38] VITALS: BP 105/57
[2022-01-29] MEDS: SENNA W/DOCUSATE (SENOKOT S) TABLET PO SCH ×2 (08:07→20:55)
[2022-01-29] MEDS: SENNOSIDES 8.6 MG (SENOKOT) TAB PO SCH ×2 (08:08→21:00)
[2022-01-29] MEDS: DOCUSATE SODIUM 100 MG (COLACE) CAP PO SCH ×2 (08:08→20:56)
[2022-01-29] MEDS: ATENOLOL 50 MG (TENORMIN) TAB PO SCH (08:08)
[2022-01-29] MEDS: PANTOPRAZOLE 40 MG (PROTONIX) TAB PO SCH (08:08)
[2022-01-29] MEDS: polyethylene glycoL POWDER 17 GM (MIRALAX) PACK PO SCH ×2 (08:12→20:56)
[2022-01-29] MEDS: FOLIC ACID 1 MG TAB PO SCH (08:12)
--- NOTE | 2022-01-29 08:59 | Physical Therapy Daily Note ---
PT Daily Note-Current Subjective Pt. reluctant to agree to Rx, states he was up all night and" didnt get any sleep bc lab kept poking me to get blood" c/o pain in left ribs etc at 8/10 before Rx, after Rx 5/10 Pain Numeric Pain Scale: 8 Location: No Pain Reported, Left Location Body Site: Chest (ribs/spleen) Pain Description: Pressure Mental Status Patient Orientation: Normal For Age Attachments: Oxygen (2L), Other-See Comments (telemetry) Transfers SCALE: Activities may be completed with or without assistive devices. 6-Psiuhortrg-cdqnoth completes the activity by him/herself with no assistance from a helper. 5-Set-up or Clean-up Assistance-helper sets up or cleans up; patient completes activity. [place] assists only prior to or following the activity. 4-Supervision or Touching Assistance-helper provides verbal cues and/or touching/steadying and/or contact guard assistance as patient completes activity. Assistance may be provided throughout the activity or intermittently. 3-Partial/Moderate Assistance-helper does LESS THAN HALF the effort. [place] lifts, holds or supports trunk or limbs, but provides less than half the effort. 2-Substantial/Maximal Assistance-helper does MORE THAN HALF the effort. [place] lifts or holds trunk or limbs and provides more than half the effort. 3-Gukuipiwl-nwhiqs does ALL the effort. Patient does none of the effort to complete the activity. Or, the assistance of 2 or more helpers is required for the patient to complete the activity. If activity was not attempted, code reason: 7-Patient Refused. 9-Not Applicable-not attempted and the patient did not perform the activity before the current illness, exacerbation or injury. 10-Not Attempted due to Environmental Limitations-(lack of equipment, weather restraints, etc.). 88-Not Attempted due to Medical Conditions or Safety Concerns. Roll Left & Right (QC): 4 Lying to Sitting/Side of Bed(Q: 4 Sit to Stand (QC): 6 Chair/Nsj-qz-Dwumb Xfer(QC): 4 Weight Bearing Full Weight Bearing Full Weight Bearing Gait Training Does the Patient Walk?: Yes Walk 10 feet (QC): 4 Walk 50 ft with 2 Turns(QC): 4 Gait Persons Needed: 1 Gait Assistive Device: FWW 50ftx4 FWW O2 sats >94% on 2 L O2. no LOB, c/o fatigue and some pain Exercises Supine Ex: Bridging, Ankle pumps, Quad Set, Rolling, Glut sets, Heel Slides, Short Arc Quads, Scooting, Straight leg raise, Hip abd/add Supine Reps: 15 Seated Therapy Exercises: Ankle pumps, Sit to stand, Long arc quads, Hip flexion Seated Reps: 15 Treatments up in recliner after Rx. lab present for draw Assessment Current Status: Good Progress felt better after he got up, looking forward to a nap PT Lactation Consultant Goals Lactation Consultant Goals PT Lactation Consultant Goals Time Frame: Feb 25, 2022 Roll Left & Right (QC): 6 Sit to Lying (QC): 6 Lying-Sitting on Side/Bed(QC): 6 Sit to Stand (QC): 6 Chair/Ify-uk-Khlkh Xfer(QC): 6 Toilet Transfer (QC): 6 Car Transfer (QC): 6 Does the Patient Walk: Yes Walk 10 feet (QC): 6 Walk 50ft with 2 Turns (QC): 6 Walk 150 ft (QC): 6 Walking 10ft on Uneven Surface: 6 1 Step (curb) (QC): 6 4 Steps (QC): 6 12 Steps (QC): 6 Picking up an Object (QC): 6 Does the Pt use WC or Scooter?: No Wheel 50 feet with 2 turns (QC: 9 Type: N/A Wheel 150 feet: 9 Type: N/A PT Plan Treatment/Plan Treatment Plan: Continue Plan of Care Treatment Plan: Bed Mobility, Concurrent Therapy, Education, Functional Activity Francesca, Functional Strength, Group Therapy, Gait, Safety, Therapeutic Exercise, Transfers Treatment Duration: Feb 25, 2022 Frequency: At least 5 of 7 days/Wk (IRF) Estimated Hrs Per Day: 1.5 hours per day Patient and/or Family Agrees t: Yes Safety Risks/Education Patient Education: Gait Training, Transfer Techniques, Correct Positioning, Disease Process, Safety Issues Teaching Recipient: Patient Teaching Methods: Demonstration, Discussion Response to Teaching: Verbalize Understanding, Return Demonstration, Reinforcement Needed Time/GCodes Time In: 800 Time Out: 900 Total Billed Treatment Time: 60 Total Billed Treatment 1,EX25m,FA15m,GT20m KYMBERLY SANCHEZ PTA Jan 29, 2022 08:58
--- NOTE | 2022-01-29 10:25 | Occupational Ther Daily Note ---
OT Current Status-Daily Note Subjective Pt alert, sitting in recliner. Pt c/o having too many people coming in and out last night. Pt agrees to therapy. No c/o pain. Mental Status/Objective Patient Orientation: Person, Place, Time, Situation Attachments: IV, Oxygen (2L), Telemetry ADL-Treatment Pt declines shower today but would like to have one this weekend. Pt agrees to oral care and grooming. Therapy Code Descriptions/Definitions Functional [place] Measure: 0=Not Assessed/NA 4=Minimal Assistance 1=Total Assistance 5=Supervision or Setup 2=Maximal Assistance 6=Modified [place] 3=Moderate Assistance 7=Complete IndependenceSCALE: Activities may be completed with or without assistive devices. 8-Xcxlxvwdrv-gchwmrk completes the activity by him/herself with no assistance from a helper. 5-Set-up or Clean-up Assistance-helper sets up or cleans up; patient completes activity. [place] assists only prior to or following the activity. 4-Supervision or Touching Assistance-helper provides verbal cues and/or touching/steadying and/or contact guard assistance as patient completes activity. Assistance may be provided throughout the activity or intermittently. 3-Partial/Moderate Assistance-helper does LESS THAN HALF the effort. [place] lifts, holds or supports trunk or limbs, but provides less than half the effort. 2-Substantial/Maximal Assistance-helper does MORE THAN HALF the effort. [place] lifts or holds trunk or limbs and provides more than half the effort. 6-Frsnfzolt-thxxqj does ALL the effort. Patient does none of the effort to complete the activity. Or, the assistance of 2 or more helpers is required for the patient to complete the activity. If activity was not attempted, code reason: 7-Patient Refused. 9-Not Applicable-not attempted and the patient did not perform the activity befo re the current illness, exacerbation or injury. 10-Not Attempted due to Environmental Limitations-(lack of equipment, weather re straints, etc.). 88-Not Attempted due to Medical Conditions or Safety Concerns. Oral Hygiene (QC): 6 Other Treatment Pt ambulated to therapy gym using FWW with SBA. Pt completed B UE exercises with resistance to increase strength for gross and fine motor skills. Skilled instruction given for correct technique. 1/2# hand weight for L wrist flex/ext/uln dev/rad dev 2 sets 10 reps. 2# hand weight for R wrist flex/ext/uln dev/rad dev 2 sets 10 reps. Light resistance theraband for finger ext exercises 3 sets 5 reps, pt fatigued quickly. Medium resistance theraband exercises with L UE stabilizing theraband while R UE completed movement, 1 set 10 reps. Pt given theraband for use in room. Will continue to work on e xercises for independence on HEP. Pt sitting in recliner with call light/phone in reach. All needs met in room. Left in care of SW. OT Short Term Goals Short Term Goals Time Frame: Feb 16, 2022 Toileting hygiene: 4 Shower/bathe self: 4 Lower body dressin Putting on/taking off footwear: 4 OT Heating And Ventilating Worker Goals [facility] Goals Time Frame: Feb 26, 2022 Eating (QC): 6 Oral Hygiene (QC): 6 Toileting Hygiene (QC): 6 Shower/Bathe Self (QC): 6 Upper Body Dressing (QC): 6 Lower Body Dressing (QC): 6 On/Off Footwear (QC): 6 Additional Goals: 1-Demonstrate ADL Tasks, 2-Verbalize Understanding, 3- ImproveStrength/Francesca 1=Demonstrate adherence to instructed precautions during ADL tasks. 2=Patient will verbalize/demonstrate understanding of assistive devices/modifications for ADL. 3=Patient will improve strength/tolerance for activity to enable patient to perform ADL's. OT Education/Plan Problem List/Assessment Assessment: Decreased Activ Tolerance, Decreased UE Strength, Impaired Self- Care Skills, Restricted Funct UE ROM Discharge Recommendations Plan/Recommendations: Continue POC Treatment Plan/Plan of Care Patient would benefit from OT for education, treatment and training to promote independence in ADL's, mobility, safety and/or upper extremity function for ADL's. Plan of Care: ADL Retraining, Functional Mobility, Group Exercise/Act as Ind, UE Funct Exercise/Act, UE Neuromus Re-Ed/Coord Treatment Duration: Feb 26, 2022 Frequency: At least 5 of 7 days/Wk (IRF) Estimated Hrs Per Day: 1.5 hours per day Rehab Potential: Fair Time/GCodes Start Time: 09:00 Stop Time: 10:15 Total Time Billed (hr/min): 75 Billed Treatment Time 1 visit-ADL 2 (30 min) FA 1 (10 min) EX 3 (50 min) SUNIL DAMON [facility] Jan 29, 2022 10:25
--- NOTE | 2022-01-29 11:18 | Cardiology Progress Note ---
Subjective Date Seen by Provider: Jan 29, 2022 Time Seen by Provider: 11:17 Subjective/Events-last exam Patient is in bed, feeling better, no new complaint Review of Systems General: No Chills, No Night Sweats; Fatigue, Malaise; No Appetite, No Other HEENT: No Head Aches, No Visual Changes, No Eye Pain, No Ear Pain, No Dysphasia, No Sinus Congestion, No Post Nasal Drip, No Sore Throat, No Other Pulmonary: Dyspnea; No Cough, No Pleuritic Chest Pain, No Other Cardiovascular: No: Chest Pain, Palpitations, Orthopnea, Paroxysmal Noc. Dyspnea, Edema, Lt Headedness, Other Objective-Cardiology Exam Last Set of Vital Signs Vital Signs 01/29/22 01/29/22 01/29/22 07:28 07:38 09:00 Temp 37.8 Pulse 110 Resp 16 B/P (MAP) 105/57 (73) Pulse Ox 91 O2 Delivery Room Air O2 Flow Rate 2.00 General: Alert, Oriented X3, Cooperative HEENT: Atraumatic, PERRLA Neck: Supple, No JVD, No Thyromegaly Lungs: Clear to Auscultation, Normal Air Movement Heart: Regular Rate, Normal S1, Normal S2, No Murmurs Abdomen: Normal Bowel Sounds, Soft, No Tenderness, No Hepatosplenomegaly, No Masses Extremities: No Clubbing, No Cyanosis, No Edema, Normal Pulses, No Tenderness/Swelling Skin: No Rashes, No Breakdown, No Significant Lesion Neuro: Normal Speech, Sensation Intact Psych/Mental Status: Mental Status NL, Mood NL Results Lab Laboratory Tests 01/29/22 05:52 A/P-Cardiology Admission Diagnosis Sinus Tachycardia Splenic laceration with perisplenic hematoma Abdominal and pelvic hemoperitoneum History of CVA Assessment/Plan Sinus Tachycardia of undetermined etiology Restarted on atenolol, continue to monitor heart rate and blood pressure Mild steady drop in H&H. Continue to monitor and transfuse as needed. Splenic laceration with perisplenic hematoma and hemoperitoneum Continue with conservative management per general surgery Continue to hold Aspirin Non-displaced left 10-12th left rib fracture Conservative management PT/OT Continue with IS until patient is able to better expand chest wall Hypertension Patient is maintained at home on amlodipine 5 and atenolol 25, currently managed by medical team Hyperlipidemia Patient is maintained at home on atorvastatin 80, currently managed by medical team History of CVA , Cryptogenic stroke. Patient maintained at home on aspirin, currently holding due to splenic la ceration Continue to monitor telemetry History of loop monitor implantation done for cryptogenic stroke. We will continue to monitor and interpret rhythm Alcoholism Patient currently on CIWA protocol, managed by medical team ALEXIA FAIRCHILD MD Jan 29, 2022 11:18
--- NOTE | 2022-01-29 13:20 | Occupational Ther Daily Note ---
OT Current Status-Daily Note Subjective Pt alert, sitting in recliner. Pt c/o pain with L ribs, nrsg notified and unable to give meds at this time due to not time for next dosage. JOHNSTON placed cold pack to area without any ease of pain, warm pack applied to area and decreased pain minimally. Pt agrees to therapy. Mental Status/Objective Patient Orientation: Person, Place, Time, Situation ADL-Treatment Therapy Code Descriptions/Definitions Functional [place] Measure: 0=Not Assessed/NA 4=Minimal Assistance 1=Total Assistance 5=Supervision or Setup 2=Maximal Assistance 6=Modified [place] 3=Moderate Assistance 7=Complete IndependenceSCALE: Activities may be completed with or without assistive devices. 1-Lkzavspgby-usarsls completes the activity by him/herself with no assistance from a helper. 5-Set-up or Clean-up Assistance-helper sets up or cleans up; patient completes activity. [place] assists only prior to or following the activity. 4-Supervision or Touching Assistance-helper provides verbal cues and/or touching/steadying and/or contact guard assistance as patient completes activity. Assistance may be provided throughout the activity or intermittently. 3-Partial/Moderate Assistance-helper does LESS THAN HALF the effort. [place] lifts, holds or supports trunk or limbs, but provides less than half the effort. 2-Substantial/Maximal Assistance-helper does MORE THAN HALF the effort. [place] lifts or holds trunk or limbs and provides more than half the effort. 0-Wthhhbxjt-edlosa does ALL the effort. Patient does none of the effort to complete the activity. Or, the assistance of 2 or more helpers is required for the patient to complete the activity. If activity was not attempted, code reason: 7-Patient Refused. 9-Not Applicable-not attempted and the patient did not perform the activity before the current illness, exacerbation or injury. 10-Not Attempted due to Environmental Limitations-(lack of equipment, weather restraints, etc.). 88-Not Attempted due to Medical Conditions or Safety Concerns. Other Treatment Pt completed scanning and hand eye coordination tasks to work on functional skills. Pt tolerated this treatment well in sitting. Declines any standing due to increase rib pain. After therapy, pt sitting in recliner with call light/phone in reach. All needs met in room. OT Short Term Goals Short Term Goals Time Frame: Feb 16, 2022 Toileting hygiene: 4 Shower/bathe self: 4 Lower body dressin Putting on/taking off footwear: 4 OT Registered Nurse Bone Marrow Transplant Goals Registered Nurse Bone Marrow Transplant Goals Time Frame: Feb 26, 2022 Eating (QC): 6 Oral Hygiene (QC): 6 Toileting Hygiene (QC): 6 Shower/Bathe Self (QC): 6 Upper Body Dressing (QC): 6 Lower Body Dressing (QC): 6 On/Off Footwear (QC): 6 Additional Goals: 1-Demonstrate ADL Tasks, 2-Verbalize Understanding, 3- ImproveStrength/Francesca 1=Demonstrate adherence to instructed precautions during ADL tasks. 2=Patient will verbalize/demonstrate understanding of assistive devices/modifications for ADL. 3=Patient will improve strength/tolerance for activity to enable patient to perform ADL's. OT Education/Plan Problem List/Assessment Assessment: Decreased Activ Tolerance Discharge Recommendations Plan/Recommendations: Continue POC Treatment Plan/Plan of Care Patient would benefit from OT for education, treatment and training to promote independence in ADL's, mobility, safety and/or upper extremity function for ADL's. Plan of Care: ADL Retraining, Functional Mobility, Group Exercise/Act as Ind, UE Funct Exercise/Act, UE Neuromus Re-Ed/Coord Treatment Duration: Feb 26, 2022 Frequency: At least 5 of 7 days/Wk (IRF) Estimated Hrs Per Day: 1.5 hours per day Rehab Potential: Fair Time/GCodes Start Time: 11:30 Stop Time: 11:45 Total Time Billed (hr/min): 15 Billed Treatment Time 1 visit-FA 1 (15 min) SUNIL DAMON Jan 29, 2022 13:20
--- NOTE | 2022-01-29 13:27 | Physical Therapy Daily Note ---
PT Daily Note-Current Subjective c/o pain iin ribs left 06/16. "just took a pill not long ago" Mental Status Patient Orientation: Normal For Age Attachments: Oxygen Transfers SCALE: Activities may be completed with or without assistive devices. 7-Rkunjwvluk-rxkmtqy completes the activity by him/herself with no assistance from a helper. 5-Set-up or Clean-up Assistance-helper sets up or cleans up; patient completes activity. [place] assists only prior to or following the activity. 4-Supervision or Touching Assistance-helper provides verbal cues and/or touching/steadying and/or contact guard assistance as patient completes activity. Assistance may be provided throughout the activity or intermittently. 3-Partial/Moderate Assistance-helper does LESS THAN HALF the effort. [place] lifts, holds or supports trunk or limbs, but provides less than half the effort. 2-Substantial/Maximal Assistance-helper does MORE THAN HALF the effort. [place] lifts or holds trunk or limbs and provides more than half the effort. 8-Cszaxqmmf-uechmq does ALL the effort. Patient does none of the effort to complete the activity. Or, the assistance of 2 or more helpers is required for the patient to complete the activity. If activity was not attempted, code reason: 7-Patient Refused. 9-Not Applicable-not attempted and the patient did not perform the activity before the current illness, exacerbation or injury. 10-Not Attempted due to Environmental Limitations-(lack of equipment, weather restraints, etc.). 88-Not Attempted due to Medical Conditions or Safety Concerns. sit to stand and sit to sup all SBA Weight Bearing Full Weight Bearing Full Weight Bearing Gait Training Gait Assistive Device: FWW 20 ft in room CGA FWW Exercises Supine Ex: Ankle pumps, Quad Set, Rolling, Glut sets, Heel Slides, Hip abd/add Supine Reps: 12 Treatments short gait, in to bed SBA, LE exs, positioned for comfort, warm blanket , call garnica Assessment Current Status: Good Progress PT Senior Construction Project Manager Goals Senior Construction Project Manager Goals PT Senior Construction Project Manager Goals Time Frame: Feb 25, 2022 Roll Left & Right (QC): 6 Sit to Lying (QC): 6 Lying-Sitting on Side/Bed(QC): 6 Sit to Stand (QC): 6 Chair/Pfc-we-Qvegr Xfer(QC): 6 Toilet Transfer (QC): 6 Car Transfer (QC): 6 Does the Patient Walk: Yes Walk 10 feet (QC): 6 Walk 50ft with 2 Turns (QC): 6 Walk 150 ft (QC): 6 Walking 10ft on Uneven Surface: 6 1 Step (curb) (QC): 6 4 Steps (QC): 6 12 Steps (QC): 6 Picking up an Object (QC): 6 Does the Pt use WC or Scooter?: No Wheel 50 feet with 2 turns (QC: 9 Type: N/A Wheel 150 feet: 9 Type: N/A PT Plan Treatment/Plan Treatment Plan: Continue Plan of Care Treatment Plan: Bed Mobility, Concurrent Therapy, Education, Functional Activity Francesca, Functional Strength, Group Therapy, Gait, Safety, Therapeutic Exercise, Transfers Treatment Duration: Feb 25, 2022 Frequency: At least 5 of 7 days/Wk (IRF) Estimated Hrs Per Day: 1.5 hours per day Patient and/or Family Agrees t: Yes Safety Risks/Education Patient Education: Gait Training, Transfer Techniques, Correct Positioning Time/GCodes Time In: 1300 Time Out: 1330 Total Billed Treatment Time: 30 Total Billed Treatment 1,FA15m,EX15m KYMBERLY SANCHEZ LINE WALKER Jan 29, 2022 13:27
[2022-01-29 19:20] VITALS: BP 98/65
[2022-01-29] MEDS: LACTULOSE SYRUP 10GM/15ML (ENULOSE) 30ML UDC PO PRN (21:00)
[2022-01-30] MEDS: HYDROcodone/APAP 7.5 MG/325 MG (LORTAB, LORCET PLUS) TABLET PO PRN ×5 (01:20→21:28)
--- NOTE | 2022-01-30 04:06 | PM&R Progress Note ---
Subjective HPI/CC On Admission Date Seen by Provider: Jan 30, 2022 Time Seen by Provider: 06:00 Subjective/Events-last exam 01/30/22: Patient handling things well Multiple complaints about pain issues Left rib fractures will take time to heal Checked meds and labs 01/29/2022: Pt is doing pretty well Hemoglobin is 7.7 PICC line will be provided since he has poor venous access IV iron initiated Heart rate is 118 Small bowel movement yesterday, gave him all the laxatives Review of Systems General: Fatigue, Malaise Objective Exam Vital Signs Vital Signs Date Time Temp Pulse Resp B/P (MAP) Pulse Ox O2 Delivery O2 Flow Rate FiO2 01/30/22 14:38 93 Nasal Cannula 3.00 01/30/22 07:30 37.2 116 22 111/69 (83) Capillary Refill : General Appearance: WD/WN, Anxious, Chronically ill, Mild Distress HEENT: PERRL/EOMI, Normal ENT Inspection, Pharynx Normal Neck: Full Range of Motion, Normal Inspection, Non Tender, Supple, Carotid Bruit Respiratory: Chest Non Tender, Lungs Clear, Normal Breath Sounds, No Accessory Muscle Use, No Respiratory Distress Cardiovascular: No Edema, No Gallop, No JVD, No Murmur, Normal Peripheral Pulses, Tachycardia Gastrointestinal: Normal Bowel Sounds, No Organomegaly, No Pulsatile Mass, Non Tender, Soft Rectal: Deferred Back: Normal Inspection, No CVA Tenderness, No Vertebral Tenderness Extremity: Normal Capillary Refill, Normal Inspection, Normal Range of Motion, Non Tender, No Calf Tenderness, No Pedal Edema Neurologic/Psychiatric: Alert, Oriented x3, Normal Mood/Affect, drafter geological II-XII Norm as Tested, Motor Weakness (Left-sided weakness upper extremity > lower extremity) Skin: Normal Color, Warm/Dry Lymphatic: No Adenopathy Results/Procedures Lab Patient resulted labs reviewed. FIM Transfers Therapy Code Descriptions/Definitions Functional [place] Measure: 0=Not Assessed/NA 4=Minimal Assistance 1=Total Assistance 5=Supervision or Setup 2=Maximal Assistance 6=Modified [place] 3=Moderate Assistance 7=Complete IndependenceSCALE: Activities may be completed with or without assistive devices. 0-Xbpmlwkxfd-wpxsmmk completes the activity by him/herself with no assistance from a helper. 5-Set-up or Clean-up Assistance-helper sets up or cleans up; patient completes activity. [place] assists only prior to or following the activity. 4-Supervision or Touching Assistance-helper provides verbal cues and/or touching/steadying and/or contact guard assistance as patient completes activity. Assistance may be provided throughout the activity or intermittently. 3-Partial/Moderate Assistance-helper does LESS THAN HALF the effort. [place] lifts, holds or supports trunk or limbs, but provides less than half the effort. 2-Substantial/Maximal Assistance-helper does MORE THAN HALF the effort. [place] lifts or holds trunk or limbs and provides more than half the effort. 4-Zcywgmfqr-kkmlnl does ALL the effort. Patient does none of the effort to complete the activity. Or, the assistance of 2 or more helpers is required for the patient to complete the activity. If activity was not attempted, code reason: 7-Patient Refused. 9-Not Applicable-not attempted and the patient did not perform the activity before the current illness, exacerbation or injury. 10-Not Attempted due to Environmental Limitations-(lack of equipment, weather restraints, etc.). 88-Not Attempted due to Medical Conditions or Safety Concerns. Roll Left to Right (QC): 4 Sit to Lying (QC): 3 Sit to Stand (QC): 6 Chair/Hdt-ub-Psekm Xfer(QC): 4 Car Transfer (QC): 4 (CGA) Gait Training Does the Patient Walk?: Yes Walk 10 feet (QC): 4 Walk 50 ft with 2 Turns(QC): 4 Walk 150 ft (QC): 4 Walking 10ft/uneven surface-QC: 4 Gait Persons Needed: 1 Gait Assistive Device: FWW Wheelchair Training Does the Pt Use a Wheelchair?: No Wheel 50 ft with 2 turns (QC): 9 Wheel 150 ft (QC): 9 Type of Wheelchair: N/A Stair Training 1 Step (curb) (QC): 4 4 Steps (QC): 4 12 Steps (QC): 88 Balance Picking up an Object (QC): 88 (Due to pt diminished balance, unsafe to perform at this time.) ADL-Treatment Eating (QC): 5 Oral Hygiene (QC): 6 Bathing Location: L Arm, R Arm, L Upper Leg, R Upper Leg, L Lower Leg (including foot), R Lower Leg (including foot), Chest, Abdomen, Buttocks, Perineal Area Shower/Bathe Self (QC): 4 Upper Body Dressing (QC): 5 Lower Body Dressing (QC): 3 On/Off Footwear (QC): 2 (mod A) Toileting Hygiene (QC): 4 (per clinical judgment, pt able to complete with CGA.) Toilet Transfer (QC): 4 (per clinical judgment, SBA for safety.) Assessment/Plan Assessment and Plan Assess & Plan/Chief Complaint Assessment: Debility following fall with left-sided rib fractures and splenic laceration Prior CVA with worsening left-sided weakness Multiple falls at home recently Alcoholism Anxiety Tachycardia Acute blood loss anemia Gout COPD Plan: Aggressive rehab Supportive care Monitor heart rate 01/29/2022: Supportive care Monitor hemoglobin Iron infusions 01/30/22: Pain management Monitor closely (1) Left-sided weakness Status: Acute (2) Spleen laceration Status: Acute (3) Hypertension Status: Chronic (4) Neuropathy Status: Chronic (5) Anxiety Status: Chronic (6) Gout (7) COPD (chronic obstructive pulmonary disease) (8) Alcoholism Status: Chronic HARDY CAMPBELL DO Jan 30, 2022 04:06
[2022-01-30] MEDS: MAGNESIUM OXIDE (MAG-OX)400 MG TAB PO SCH (05:09)
[2022-01-30] MEDS: MULTIVIT W/MINERALS TAB (THERAGRAN M) PO SCH (05:09)
[2022-01-30] MEDS: METOCLOPRAMIDE INJ 10 MG/2 ML (REGLAN) IVP SCH ×3 (05:10→17:19)
[2022-01-30] MEDS: CATHETER FLUSH 10 ML SYR IVP SCH ×3 (05:10→22:36)
[2022-01-30] MEDS: KCL 10 MEQ TAB (MICRO K) PO SCH (05:10)
[2022-01-30 07:30] VITALS: BP_SYST 11; BP_SYST 111; BP_DIAS 69
[2022-01-30] MEDS: ATENOLOL 50 MG (TENORMIN) TAB PO SCH (08:28)
[2022-01-30] MEDS: DOCUSATE SODIUM 100 MG (COLACE) CAP PO SCH ×2 (08:28→21:20)
[2022-01-30] MEDS: FOLIC ACID 1 MG TAB PO SCH (08:28)
[2022-01-30] MEDS: SENNOSIDES 8.6 MG (SENOKOT) TAB PO SCH ×2 (08:28→21:20)
[2022-01-30] MEDS: PANTOPRAZOLE 40 MG (PROTONIX) TAB PO SCH (08:28)
[2022-01-30] MEDS: polyethylene glycoL POWDER 17 GM (MIRALAX) PACK PO SCH ×2 (08:28→21:20)
[2022-01-30] MEDS: IRON SUCROSE 200 MG/10 ML (VENOFER) VIAL IV SCH (08:29)
[2022-01-30] MEDS: RT-ALBUTEROL/IPRATROPIUM 3 ML (DUONEB) VIAL INH SCH ×3 (09:15→21:05)
[2022-01-30] MEDS: SENNA W/DOCUSATE (SENOKOT S) TABLET PO SCH ×2 (09:31→21:20)
--- NOTE | 2022-01-30 11:06 | Physical Therapy Daily Note ---
PT Daily Note-Current Subjective Pt in bed upon arrival and agrees to PT. Pt reports his ribs are hurting a little bit but does not rate. Pt c/o stomach ache and reports he thinks he needs to use the BR when in therapy gym. Mental Status Patient Orientation: Person, Place, Time, Normal For Age Attachments: Oxygen Transfers SCALE: Activities may be completed with or without assistive devices. 2-Lfoczudsfw-zcboyim completes the activity by him/herself with no assistance from a helper. 5-Set-up or Clean-up Assistance-helper sets up or cleans up; patient completes activity. [place] assists only prior to or following the activity. 4-Supervision or Touching Assistance-helper provides verbal cues and/or touching/steadying and/or contact guard assistance as patient completes activity. Assistance may be provided throughout the activity or intermittently. 3-Partial/Moderate Assistance-helper does LESS THAN HALF the effort. [place] lifts, holds or supports trunk or limbs, but provides less than half the effort. 2-Substantial/Maximal Assistance-helper does MORE THAN HALF the effort. [place] lifts or holds trunk or limbs and provides more than half the effort. 2-Smizfmons-owrzdd does ALL the effort. Patient does none of the effort to complete the activity. Or, the assistance of 2 or more helpers is required for the patient to complete the activity. If activity was not attempted, code reason: 7-Patient Refused. 9-Not Applicable-not attempted and the patient did not perform the activity before the current illness, exacerbation or injury. 10-Not Attempted due to Environmental Limitations-(lack of equipment, weather restraints, etc.). 88-Not Attempted due to Medical Conditions or Safety Concerns. Roll Left & Right (QC): 4 Sit to Stand (QC): 5 Weight Bearing Full Weight Bearing Full Weight Bearing Gait Training Does the Patient Walk?: Yes Distance: 75' x 1 25' x 1 Walk 10 feet (QC): 5 Walk 50 ft with 2 Turns(QC): 4 Gait Persons Needed: 1 Gait Assistive Device: FWW Treatments Pt in bed upon arrival and agrees to PT. Pt amb 75' and then needs a rest break. Pt then amb to therapy gym and requires rest break. Pt then c/o stomach ache and requests to use the BR. Pt doesn't think he can walk back to the room so requests a WC. CHEMICAL PLANT MANAGER has to switch out oxygen tank. Therapist wheels pt back to room and pt TFs from [facility] to toilet in bathroom. All needs met and nurse notified that pt in BR and PT departs. Assessment Current Status: Fair Progress Pt requires verbal cues for hand and foot placement during TFs and tactile cues in order to perform standing exs correctly. Pt unable to perform exs this date d/t stomach discomfort and needing to use BR. PT Asbestos Siding Installer Goals Asbestos Siding Installer Goals PT Asbestos Siding Installer Goals Time Frame: Feb 25, 2022 Roll Left & Right (QC): 6 Sit to Lying (QC): 6 Lying-Sitting on Side/Bed(QC): 6 Sit to Stand (QC): 6 Chair/Irb-pe-Lfbcd Xfer(QC): 6 Toilet Transfer (QC): 6 Car Transfer (QC): 6 Does the Patient Walk: Yes Walk 10 feet (QC): 6 Walk 50ft with 2 Turns (QC): 6 Walk 150 ft (QC): 6 Walking 10ft on Uneven Surface: 6 1 Step (curb) (QC): 6 4 Steps (QC): 6 12 Steps (QC): 6 Picking up an Object (QC): 6 Does the Pt use WC or Scooter?: No Wheel 50 feet with 2 turns (QC: 9 Type: N/A Wheel 150 feet: 9 Type: N/A PT Plan Problem List Problem List: Activity Tolerance, Functional Strength Treatment/Plan Treatment Plan: Continue Plan of Care Treatment Plan: Bed Mobility, Concurrent Therapy, Education, Functional Activity Francesca, Functional Strength, Group Therapy, Gait, Safety, Therapeutic Exercise, Transfers Treatment Duration: Feb 25, 2022 Frequency: At least 5 of 7 days/Wk (IRF) Estimated Hrs Per Day: 1.5 hours per day Patient and/or Family Agrees t: Yes Safety Risks/Education Patient Education: Transfer Techniques Teaching Recipient: Patient Teaching Methods: Discussion Response to Teaching: Return Demonstration Time/GCodes Time In: 850 Time Out: 910 Total Billed Treatment Time: 20 Total Billed Treatment 1, GT 20min MARY ALICE SIMON CHEMICAL PLANT MANAGER Jan 30, 2022 11:06
[2022-01-30] MEDS: LORazepam 0.5 MG (ATIVAN) TABLET PO PRN (12:10)
[2022-01-30] MEDS ORDERED: MAGNESIUM CITRATE 300 ML BTL PO ONE (13:00)
[2022-01-30 19:47] VITALS: BP 101/68
[2022-01-31] MEDS: METOCLOPRAMIDE INJ 10 MG/2 ML (REGLAN) IVP SCH ×5 (00:29→23:15)
[2022-01-31] MEDS: CATHETER FLUSH 10 ML SYR IVP PRN ×2 (00:30→23:15)
[2022-01-31] MEDS: HYDROcodone/APAP 7.5 MG/325 MG (LORTAB, LORCET PLUS) TABLET PO PRN ×2 (03:19→08:01)
--- NOTE | 2022-01-31 04:35 | PM&R Progress Note ---
Subjective HPI/CC On Admission Date Seen by Provider: Jan 31, 2022 Time Seen by Provider: 06:00 Subjective/Events-last exam 01/31/2022: Patient having more abdominal distention Magnesium citrate and enema did not really result in much results Supportive care will continue Abdominal x-ray ordered showing colonic distention Dr. Ibrahim consulted may require endoscope for decompression Minimizing pain medications priority 01/30/22: Patient handling things well Multiple complaints about pain issues Left rib fractures will take time to heal Checked meds and labs 01/29/2022: Pt is doing pretty well Hemoglobin is 7.7 PICC line will be provided since he has poor venous access IV iron initiated Heart rate is 118 Small bowel movement yesterday, gave him all the laxatives Review of Systems General: Fatigue, Malaise Gastrointestinal: Abdominal Pain, Constipation Objective Exam Vital Signs Vital Signs Date Time Temp Pulse Resp B/P (MAP) Pulse Ox O2 Delivery O2 Flow Rate FiO2 01/31/22 09:30 Room Air 01/31/22 08:22 2.00 01/31/22 08:18 93 01/31/22 07:30 37.4 108 18 116/63 (80) Capillary Refill : General Appearance: WD/WN, Anxious, Chronically ill, Mild Distress HEENT: PERRL/EOMI, Normal ENT Inspection, Pharynx Normal Neck: Full Range of Motion, Normal Inspection, Non Tender, Supple, Carotid Bruit Respiratory: Chest Non Tender, Lungs Clear, Normal Breath Sounds, No Accessory Muscle Use, No Respiratory Distress Cardiovascular: No Edema, No Gallop, No JVD, No Murmur, Normal Peripheral Pulses, Tachycardia Gastrointestinal: Normal Bowel Sounds, No Organomegaly, No Pulsatile Mass, Non Tender, Soft Rectal: Deferred Back: Normal Inspection, No CVA Tenderness, No Vertebral Tenderness Extremity: Normal Capillary Refill, Normal Inspection, Normal Range of Motion, Non Tender, No Calf Tenderness, No Pedal Edema Neurologic/Psychiatric: Alert, Oriented x3, Normal Mood/Affect, continuity reader II-XII Norm as Tested, Motor Weakness (Left-sided weakness upper extremity > lower extremity) Skin: Normal Color, Warm/Dry Lymphatic: No Adenopathy Results/Procedures Lab Laboratory Tests 01/31/22 07:22 Patient resulted labs reviewed. FIM Transfers Therapy Code Descriptions/Definitions Functional [place] Measure: 0=Not Assessed/NA 4=Minimal Assistance 1=Total Assistance 5=Supervision or Setup 2=Maximal Assistance 6=Modified [place] 3=Moderate Assistance 7=Complete IndependenceSCALE: Activities may be completed with or without assistive devices. 0-Iicsshmkog-tfcllnl completes the activity by him/herself with no assistance from a helper. 5-Set-up or Clean-up Assistance-helper sets up or cleans up; patient completes activity. [place] assists only prior to or following the activity. 4-Supervision or Touching Assistance-helper provides verbal cues and/or touching/steadying and/or contact guard assistance as patient completes activit y. Assistance may be provided throughout the activity or intermittently. 3-Partial/Moderate Assistance-helper does LESS THAN HALF the effort. [place] lifts, holds or supports trunk or limbs, but provides less than half the effort. 2-Substantial/Maximal Assistance-helper does MORE THAN HALF the effort. [place] lifts or holds trunk or limbs and provides more than half the effort. 9-Qyypbrfqi-icgxuv does ALL the effort. Patient does none of the effort to complete the activity. Or, the assistance of 2 or more helpers is required for the patient to complete the activity. If activity was not attempted, code reason: 7-Patient Refused. 9-Not Applicable-not attempted and the patient did not perform the activity before the current illness, exacerbation or injury. 10-Not Attempted due to Environmental Limitations-(lack of equipment, weather restraints, etc.). 88-Not Attempted due to Medical Conditions or Safety Concerns. Roll Left to Right (QC): 4 Sit to Lying (QC): 3 Sit to Stand (QC): 5 Chair/Uah-nk-Iwcjt Xfer(QC): 4 Car Transfer (QC): 4 (CGA) Gait Training Does the Patient Walk?: Yes Distance: 75' x 1 25' x 1 Walk 10 feet (QC): 5 Walk 50 ft with 2 Turns(QC): 4 Walk 150 ft (QC): 4 Walking 10ft/uneven surface-QC: 4 Gait Persons Needed: 1 Gait Assistive Device: FWW Wheelchair Training Does the Pt Use a Wheelchair?: No Wheel 50 ft with 2 turns (QC): 9 Wheel 150 ft (QC): 9 Type of Wheelchair: N/A Stair Training 1 Step (curb) (QC): 4 4 Steps (QC): 4 12 Steps (QC): 88 Balance Picking up an Object (QC): 88 (Due to pt diminished balance, unsafe to perform at this time.) ADL-Treatment Eating (QC): 5 Oral Hygiene (QC): 6 Bathing Location: L Arm, R Arm, L Upper Leg, R Upper Leg, L Lower Leg ( including foot), R Lower Leg (including foot), Chest, Abdomen, Buttocks, Perineal Area Shower/Bathe Self (QC): 4 Upper Body Dressing (QC): 5 Lower Body Dressing (QC): 3 On/Off Footwear (QC): 2 (mod A) Toileting Hygiene (QC): 4 (per clinical judgment, pt able to complete with CGA.) Toilet Transfer (QC): 4 (per clinical judgment, SBA for safety.) Assessment/Plan Assessment and Plan Assess & Plan/Chief Complaint Assessment: Debility following fall with left-sided rib fractures and splenic laceration Prior CVA with worsening left-sided weakness Multiple falls at home recently Alcoholism Anxiety Tachycardia Acute blood loss anemia Gout COPD Colonic distention with obstipation consulted Dr. Ibrahim 01/31/2022 Plan: Aggressive rehab Supportive care Monitor heart rate 01/29/2022: Supportive care Monitor hemoglobin Iron infusions 01/30/22: Pain management Monitor closely 01/31/2022: Appreciate Dr. Ibrahim Clear liquids (1) Left-sided weakness Status: Acute (2) Spleen laceration Status: Acute (3) Hypertension Status: Chronic (4) Neuropathy Status: Chronic (5) Anxiety Status: Chronic (6) Gout (7) COPD (chronic obstructive pulmonary disease) (8) Alcoholism Status: Chronic HARDY CAMPBELL DO Jan 31, 2022 04:35
[2022-01-31] MEDS: KCL 10 MEQ TAB (MICRO K) PO SCH (06:44)
[2022-01-31] MEDS: MAGNESIUM OXIDE (MAG-OX)400 MG TAB PO SCH (06:44)
[2022-01-31] MEDS: MULTIVIT W/MINERALS TAB (THERAGRAN M) PO SCH (06:44)
[2022-01-31] MEDS: CATHETER FLUSH 10 ML SYR IVP SCH ×3 (06:47→20:23)
[2022-01-31 07:30] VITALS: BP 116/63
[2022-01-31 07:33] LABS: BASOPHILS % (AUTO) 0 % (0-10); EOSINOPHILS # (AUTO) 0.2 10^3/uL (0.0-0.3); EOSINOPHILS % (AUTO) 2 % (0-10); HEMATOCRIT 27 % (40-54); HEMOGLOBIN 9.3 g/dL (13.3-17.7); LYMPHOCYTES % (AUTO) 8 % (12-44); MEAN CORPUSCULAR HEMOGLOBIN 39 pg (25-34); MEAN CORPUSCULAR HGB CONC 34 g/dL (32-36); MEAN CORPUSCULAR VOLUME 114 fL (80-99); MEAN PLATELET VOLUME 9.5 fL (9.0-12.2); MONOCYTES # (AUTO) 1.3 10^3/uL (0.0-1.0); MONOCYTES % (AUTO) 11 % (0-12); NEUTROPHILS # (AUTO) 9.4 10^3/uL (1.8-7.8); NEUTROPHILS % (AUTO) 78 % (42-75); PLATELET COUNT 312 10^3/uL (130-400)
[2022-01-31 07:49] LABS: POTASSIUM 3.7 MMOL/L (3.6-5.0)
[2022-01-31 07:50] LABS: CALCIUM 8.7 MG/DL (8.5-10.1)
[2022-01-31 07:52] LABS: TOTAL PROTEIN 6.1 GM/DL (6.4-8.2)
[2022-01-31 07:53] LABS: BILIRUBIN,TOTAL 1.6 MG/DL (0.1-1.0)
[2022-01-31 07:55] LABS: CREATININE SERUM 0.64 MG/DL (0.60-1.30)
[2022-01-31] MEDS: LORazepam 0.5 MG (ATIVAN) TABLET PO PRN ×2 (08:01→22:06)
[2022-01-31] MEDS: polyethylene glycoL POWDER 17 GM (MIRALAX) PACK PO SCH ×2 (08:01→20:20)
--- NOTE | 2022-01-31 08:11 | Consultation - Surgery ---
GABRIELA NOLAN 01/31/22 0811: History of Present Illness History of Present Illness Patient Consulted On(ray/time) 01/31/22 08:03 Date Seen by Provider: Jan 31, 2022 Time Seen by Provider: 07:31 Reason for Visit: Tachycardia History of Present Illness Chava Vu is a 61y/o male w/ a PMH of CVA, HTN, COPD, and alcoholism who is being seen for consult due to constipation. Pt reports that he has only passed 1 small hard stool w/ some "chicken broth appearing fluid" 2 days ago and 1 watery stool yesterday. These are his only stools since being admitted to hospital on 01/24 due to a fall that caused left rib fractures and a splenic laceration. He was seen by Dr. Solis for the spleen laceration and pt reports that it was decided to treat it conservatively. He is still having some left rib pain that he rates as a 4/10 that increases when he coughs but otherwise is doing fine. Pt reports his abdomen is more distended than normal and he has a feeling of fullness. Denies any pain in abdomen. States that he is only passing small amounts of gas when he tries to use the bathroom. No episodes of flatus otherwise He received magnesium citrate and an enema yesterday which only produced the 1 light brown watery stool yesterday. Has been tried on colace, lactulose, miralax, and senna for the constipation and none have seemed to help. Denies any history of previous abdominal surgeries. Has been getting PT and is able to get up and walk. Allergies and Home Medications Allergies Coded Allergies: Sulfa (Sulfonamide Antibiotics) (Verified Allergy, Unknown, 01/24/22) Uncoded Allergies: SULFA (Allergy, Unknown, 01/24/22) Patient Home Medication List Home Medication List Reviewed: Yes Acetaminophen (Tylenol Extra Strength) 500 Mg Tablet, 1,000 MG PO Q8H PRN for PAIN-MILD (1-4), (Reported) Entered as Reported by: AVA BELTRÁN on 01/25/22 1015 Atenolol (Atenolol) 25 Mg Tablet, 25 MG PO DAILY, (Reported) Entered as Reported by: AVA BELTRÁN on 09/09/20 1526 Baclofen (Baclofen) 10 Mg Tablet, 10 MG PO TID PRN for MUSCLE SPASMS, (Reported) Entered as Reported by: AVA BELTRÁN on 01/25/22 1015 Ibuprofen (Advil) 200 Mg Capsule, 400 MG PO Q8H PRN for PAIN-MILD (1-4), ( Reported) Entered as Reported by: AVA BELTRÁN on 01/25/22 1015 Lorazepam (Ativan) 0.5 Mg Tablet, 0.5 MG PO BID PRN for ANXIETY, (Reported) Entered as Reported by: AVA BELTRÁN on 09/09/20 1526 Magnesium Oxide (Magnesium Oxide) 400 Mg Tablet, 400 MG PO DAILY, (Reported) Entered as Reported by: AVA BELTRÁN on 01/25/22 1015 Potassium Chloride (Klor-Con 10) 10 Meq Tablet.er, 10 MEQ PO DAILY, (Reported) Entered as Reported by: AVA BELTRÁN on 01/25/22 1016 Discontinued Medications Allopurinol (Allopurinol) 100 Mg Tablet, 100 MG PO BIDPC Discontinued Reason: No Longer Taking Prescribed by: HARDY CAMPBELL on 10/08/201937 Amlodipine Besylate (Amlodipine Besylate) 5 Mg Tablet, 5 MG PO DAILY Discontinued Reason: No Longer Taking Prescribed by: HARDY CAMPBELL on 10/08/201937 Aspirin (Aspirin EC) 325 Mg Tablet.dr, 325 MG PO DAILY Discontinued Reason: No Longer Taking Prescribed by: HARDY CAMPBELL on 10/08/201937 Atorvastatin Calcium (Atorvastatin Calcium) 80 Mg Tablet, 80 MG PO DAILY Discontinued Reason: No Longer Taking Prescribed by: HARDY CAMPBELL on 10/08/201937 Baclofen (Baclofen) 10 Mg Tablet, 10 MG PO Q4HR PRN for MUSCLE SPASMS Discontinued Reason: Duplicate Order Prescribed by: HARDY CAMPBELL on 10/08/201937 Magnesium Oxide (Magnesium Oxide) 400 Mg Tablet, 400 MG PO BID WITH MEALS Discontinued Reason: No Longer Taking Prescribed by: HARDY CAMPBELL on 10/08/201937 Mirtazapine (Mirtazapine) 15 Mg Tab.rapdis, 15 MG PO HS Discontinued Reason: No Longer Taking Prescribed by: HARDY CAMPBELL on 10/08/201937 Multivits,Ca,Minerals/Iron/FA (Thera-M Tablet) 1 Each Tablet, 1 EA PO DAILY@0700 Discontinued Reason: No Longer Taking Prescribed by: HARDY CAMPBELL on 10/08/201937 Naphazoline HCl/Pheniramine (Opcon-A Eye Drops) 15 Ml Drops, 2 DROPS OU QID PRN for EYE REDNESS, (Reported) Discontinued Reason: No Longer Taking Entered as Reported by: AVA BELTRÁN on 09/09/20 1526 Nicotine (Nicoderm Cq) 1 Each Patch.td24, 14 MG TD DAILY@0900 Discontinued Reason: No Longer Taking Prescribed by: HARDY CAMPBELL on 10/08/201937 Potassium Chloride (K-Tab ER) 10 Meq Tablet.er, 10 MEQ PO DAILY, (Reported) Discontinued Reason: No Longer Taking Entered as Reported by: AVA BELTRÁN on 09/09/20 152 Past Rvkkkjc-Jtzgjs-Xxcvwf Hx Patient Social History Smoking Status: Former Smoker Type Used: Cigarettes Recent Hopitalizations: No Alcohol Use?: No (states quit 6 months ago) Have you traveled recently?: No Immunizations Up To Date PED Vaccines UTD: Yes Seasonal Allergies Seasonal Allergies: Yes Surgeries History of Surgeries: Yes (20 YEARS AGO TUMOR REMOVED ( NON CANCER ) ON BLADDER) Respiratory History of Respiratory Disorde: No Respiratory Disorders: COPD Cardiovascular History of Cardiac Disorders: Yes (MITRAL VALVE PROLAPSE) Cardiac Disorders: High Cholesterol, Hypertension Neurological History of Neurological Disord: Yes Neurological Disorders: Neuropathy, Stroke Reproductive System Sexually Transmitted Disease: No HIV/AIDS: No Genitourinary History of Genitourinary Disor: No Genitourinary Disorders: Renal Failure Gastrointestinal History of Gastrointestinal Di: Yes (IBS) Gastrointestinal Disorders: Chronic Diarrhea, Irritable Bowel Musculoskeletal History of Musculoskeletal Dis: Yes Musculoskeletal Disorders: Arthritis, Chronic Back Pain Endocrine History of Endocrine Disorders: No HEENT History of HEENT Disorders: Yes Hearing Impairment: Hard of Hearing Cancer History of Cancer: No Psychosocial History of Psychiatric Problem: Yes (Alcohol dependence) Behavioral Health Disorders: Anxiety Integumentary History of Skin or Integumenta: Yes (currently being treated by wound care for wound on R foot) Blood Transfusions History of Blood Disorders: No Adverse Reaction to a Blood Tr: No Family Medical History Significant Family History: Cancer (grandfather), COPD (grandfather), Diabetes (maternal grandmother), Hypertension, Psychiatric Problems (father-alzheimers), Vascular Disease (neuropathy; mother), 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/Hx Family Medial History: FH: neuropathy 19 MOTHER Mitral valve prolapse 19 MOTHER Review of Systems-General Constitutional: No chills, No fever EENTM: No blurred vision, No double vision, No eye pain Respiratory: No cough; short of breath Cardiovascular: No chest pain, No palpitations Gastrointestinal: No abdominal pain; constipation; No nausea, No vomiting Genitourinary: No decreased output, No dysuria, No frequency Musculoskeletal: No back pain; muscle weakness (left side (chronic due to CVA)) Psychiatric/Neurological: Denies Headache; Numbness (chronic in fingers and toes) Physical Exam-General Problems Physical Exam Vital Signs Vital Signs - First Documented 01/28/22 10:45 Temp 37.2 Pulse 140 Resp 96 B/P (MAP) 128/63 (84) Pulse Ox 2 O2 Delivery Nasal Cannula O2 Flow Rate 2.00 Capillary Refill : General Appearance: WD/WN, no apparent distress Neck: non-tender, supple Respiratory: normal breath sounds, no respiratory distress, no accessory muscle use Cardiovascular: regular rate, rhythm, no JVD Gastrointestinal: abnormal bowel sounds (increased), distended, tenderness (diffuse w/ deep palpitation) Extremities: non-tender, no calf tenderness, normal capillary refill Neurologic/Psychiatric: alert, oriented x 3, motor weakness (left side) Skin: normal color, warm/dry Lymphatic: no adenopathy Data Review Labs Laboratory Tests 01/31/22 07:22: White Blood Count 12.0H, Red Blood Count 2.36L, Hemoglobin 9.3#L, Hematocrit 27L , Mean Corpuscular Volume 114H, Mean Corpuscular Hemoglobin 39H, Mean Corpuscular Hemoglobin Concent 34, Red Cell Distribution Width 13.8, Platelet Count 312, Mean Platelet Volume 9.5, Immature Granulocyte % (Auto) 1, Neutrophils (%) (Auto) 78H, Lymphocytes (%) (Auto) 8L, Monocytes (%) (Auto) 11, Eosinophils (%) (Auto) 2, Basophils (%) (Auto) 0, Neutrophils # (Auto) 9.4H, Lymphocytes # (Auto) 1.0, Monocytes # (Auto) 1.3H, Eosinophils # (Auto) 0.2, Basophils # (Auto) 0.0, Immature Granulocyte # (Auto) 0.1, Sodium Level 134L, Potassium Level 3.7, Chloride Level 99, Carbon Dioxide Level 27, Anion Gap 8, Blood Urea Nitrogen 14, Creatinine 0.64, Estimat Glomerular Filtration Rate 109, BUN/Creatinine Ratio 22, Glucose Level 116H, Calcium Level 8.7, Corrected Calcium 9.5, Total Bilirubin 1.6H, Aspartate Amino Transf (AST/SGOT) 33, Alanine Aminotransferase (ALT/SGPT) 18, Alkaline Phosphatase 95, Total Protein 6.1L, Albumin 3.0L Assessment/Plan Assessment/Plan Assessment/Plan Constipation S/p same level fall with left rib fx 10-12 and grade 2-3 splenic laceration treated conservatively Prior CVA with worsening left-sided weakness Alcoholism Anxiety Acute blood loss anemia Gout COPD Abdominal XR ordered this AM, awaiting results, continue medications for constipation, started on clear diet today Anemia improved today at 9.3, was 7.7 on 01/29, Continue to monitor Continue PT and ambulation Followed by ASAF Hernandez DO 01/31/22 1409: History of Present Illness History of Present Illness History of Present Illness Consult requested by Dr. Campbell for abdominal distention. Patient is a 61-year-old male with recent fall causing left rib fractures and a splenic laceration. Patient was treated conservatively. Patient is now in rehab. Began having more abdominal distention and fullness feeling throughout his entire abdomen. His passing very minimal flatus. No significant bowel movement recently. Minimal tenderness diffusely of his abdomen but primarily in the left upper quadrant where the rib fractures are present. Patient is currently on clear liquid diet. He had abdominal x-ray which demonstrated colonic distention. Patient and his family state that he has been taking fairly regular pain medications. Denies any nausea vomiting fever sweats chills or chest pain. Does have occasional shortness of breath when he starts to ambulate. Allergies and Home Medications Allergies Coded Allergies: Sulfa (Sulfonamide Antibiotics) (Verified Allergy, Unknown, 01/24/22) Uncoded Allergies: SULFA (Allergy, Unknown, 01/24/22) Patient Home Medication List Home Medication List Reviewed: Yes Acetaminophen (Tylenol Extra Strength) 500 Mg Tablet, 1,000 MG PO Q8H PRN for PAIN-MILD (1-4), (Reported) Entered as Reported by: AVA BELTRÁN on 01/25/22 1015 Atenolol (Atenolol) 25 Mg Tablet, 25 MG PO DAILY, (Reported) Entered as Reported by: AVA BELTRÁN on 09/09/20 1526 Baclofen (Baclofen) 10 Mg Tablet, 10 MG PO TID PRN for MUSCLE SPASMS, (Reported) Entered as Reported by: AVA BELTRÁN on 01/25/22 1015 Ibuprofen (Advil) 200 Mg Capsule, 400 MG PO Q8H PRN for PAIN-MILD (1-4), (Reported) Entered as Reported by: AVA BELTRÁN on 01/25/22 1015 Lorazepam (Ativan) 0.5 Mg Tablet, 0.5 MG PO BID PRN for ANXIETY, (Reported) Entered as Reported by: AVA BELTRÁN on 09/09/20 1526 Magnesium Oxide (Magnesium Oxide) 400 Mg Tablet, 400 MG PO DAILY, (Reported) Entered as Reported by: AVA BELTRÁN on 01/25/22 1015 Potassium Chloride (Klor-Con 10) 10 Meq Tablet.er, 10 MEQ PO DAILY, (Reported) Entered as Reported by: AVA BELTRÁN on 01/25/22 1016 Discontinued Medications Allopurinol (Allopurinol) 100 Mg Tablet, 100 MG PO BIDPC Discontinued Reason: No Longer Taking Prescribed by: HARDY CAMPBELL on 10/08/201937 Amlodipine Besylate (Amlodipine Besylate) 5 Mg Tablet, 5 MG PO DAILY Discontinued Reason: No Longer Taking Prescribed by: HARDY CAMPBELL on 10/08/201937 Aspirin (Aspirin EC) 325 Mg Tablet.dr, 325 MG PO DAILY Discontinued Reason: No Longer Taking Prescribed by: HARDY CAMPBELL on 10/08/201937 Atorvastatin Calcium (Atorvastatin Calcium) 80 Mg Tablet, 80 MG PO DAILY Discontinued Reason: No Longer Taking Prescribed by: HARDY CAMPBELL on 10/08/201937 Baclofen (Baclofen) 10 Mg Tablet, 10 MG PO Q4HR PRN for MUSCLE SPASMS Discontinued Reason: Duplicate Order Prescribed by: HARDY CAMPBELL on 10/08/201937 Magnesium Oxide (Magnesium Oxide) 400 Mg Tablet, 400 MG PO BID WITH MEALS Discontinued Reason: No Longer Taking Prescribed by: HARDY CAMPBELL on 10/08/201937 Mirtazapine (Mirtazapine) 15 Mg Tab.rapdis, 15 MG PO HS Discontinued Reason: No Longer Taking Prescribed by: HARDY CAMPBELL on 10/08/201937 Multivits,Ca,Minerals/Iron/FA (Thera-M Tablet) 1 Each Tablet, 1 EA PO DAILY@0700 Discontinued Reason: No Longer Taking Prescribed by: HARDY CAMPBELL on 10/08/201937 Naphazoline HCl/Pheniramine (Opcon-A Eye Drops) 15 Ml Drops, 2 DROPS OU QID PRN for EYE REDNESS, (Reported) Discontinued Reason: No Longer Taking Entered as Reported by: AVA BELTRÁN on 09/09/20 152 Nicotine (Nicoderm Cq) 1 Each Patch.td24, 14 MG TD DAILY@0900 Discontinued Reason: No Longer Taking Prescribed by: HARDY CAMPBELL on 10/08/201937 Potassium Chloride (K-Tab ER) 10 Meq Tablet.er, 10 MEQ PO DAILY, (Reported) Discontinued Reason: No Longer Taking Entered as Reported by: AVA BELTRÁN on 09/09/201525 Past Pviltma-Gbloog-Gmxehl Hx Reviewed Nursing Assessment Reviewed/Agree w Nursing PMH: Yes Family Medical History Significant Family History: No Pertinent Family Hx Family Medial History: FH: neuropathy 19 MOTHER Mitral valve prolapse 19 MOTHER Review of Systems-General Constitutional: No chills, No fever EENTM: No blurred vision, No double vision, No eye pain Respiratory: No cough; short of breath Cardiovascular: No chest pain, No palpitations Gastrointestinal: abdominal pain, constipation; No nausea, No vomiting Genitourinary: No decreased output, No dysuria Musculoskeletal: No back pain, No muscle weakness (left side (chronic due to CVA)) Skin: No change in color, No change in hair/nails Psychiatric/Neurological: Denies Anxiety, Denies Depressed, Denies Emotional Problems, Denies Headache; Numbness (chronic in fingers and toes) All Other Systems Reviewed Negative Unless Noted: Yes (Negative excepted noted.) Physical Exam-General Problems Physical Exam General Appearance: WD/WN, no apparent distress HEENT: PERRL/EOMI, normal ENT inspection Neck: non-tender, supple Respiratory: chest non-tender, no respiratory distress, no accessory muscle use, other (Left chest wall tenderness) Cardiovascular: regular rate, rhythm, no JVD Gastrointestinal: distended, tenderness (diffuse w/ deep palpitation) Rectal: deferred Back: normal inspection, no vertebral tenderness Extremities: non-tender, no calf tenderness Neurologic/Psychiatric: alert, normal mood/affect, oriented x 3, motor weakness (left side) Skin: normal color, warm/dry Lymphatic: no adenopathy Assessment/Plan Assessment/Plan Assessment/Plan Abdominal distention/constipation Ileuscolonic S/p same level fall with left rib fx 10-12 and grade 2-3 splenic laceration treated conservatively Prior CVA with worsening left-sided weakness Alcoholism Anxiety Acute blood loss anemia Gout COPD Abdominal XR ordered this AM demonstrating colonic distention Currently on clear liquids continue Anemia improved today at 9.3, was 7.7 on 01/29, Continue to monitor Continue PT and ambulation Patient instructed to try to limit narcotic use and increase activity. Repeat labs in a.m. KUB in a.m. Possibly may need colonic decompression with endoscopy. Supervisory-Addendum Brief Verification & Attestation Participated in pt care: history, MDM, physical Personally performed: exam, history, MDM, supervision of care Care discussed with: Medical Student Procedures: n/a Results interpretation: Verified all documentation Verification and Attestation of Medical Student E/M Service A medical student performed and documented this service in my presence. I reviewed and verified all information documented by the medical student and made modifications to such information, when appropriate. I personally performed the physical exam and medical decision making. Asaf Tang, Jan 31, 2022,14:09 GABRIELA NOLAN Jan 31, 2022 08:11 ASAF TANG DO Jan 31, 2022 14:09
[2022-01-31] MEDS: RT-ALBUTEROL/IPRATROPIUM 3 ML (DUONEB) VIAL INH SCH ×3 (08:18→21:00)
[2022-01-31] MEDS: SENNA W/DOCUSATE (SENOKOT S) TABLET PO SCH ×2 (08:24→20:19)
[2022-01-31] MEDS: ATENOLOL 50 MG (TENORMIN) TAB PO SCH (08:24)
[2022-01-31] MEDS: DOCUSATE SODIUM 100 MG (COLACE) CAP PO SCH ×2 (08:24→20:19)
[2022-01-31] MEDS: PANTOPRAZOLE 40 MG (PROTONIX) TAB PO SCH (08:24)
[2022-01-31] MEDS: SENNOSIDES 8.6 MG (SENOKOT) TAB PO SCH ×2 (08:25→20:19)
[2022-01-31] MEDS: FOLIC ACID 1 MG TAB PO SCH (08:27)
--- NOTE | 2022-01-31 10:02 | Diagnostic Imaging Report ---
EXAMINATION: Abdomen 2 view HISTORY: Abdominal pain COMPARISON: None available. FINDINGS: There are dilated loops of large bowel. No free air. There is a left base airspace opacity in the loop recorder. IMPRESSION: 1. Dilated large bowel without free air. Dictated by: Dictated on workstation # [id number]
[2022-01-31 14:27] LABS: MAGNESIUM 2.2 MG/DL (1.6-2.4)
[2022-01-31 19:58] VITALS: BP 114/75
[2022-01-31] MEDS: MELATONIN 3 MG TABLET PO PRN (22:06)
[2022-02-01] MEDS: HYDROcodone/APAP 7.5 MG/325 MG (LORTAB, LORCET PLUS) TABLET PO PRN ×3 (02:56→21:50)
[2022-02-01] MEDS: BACLOFEN 10 MG (LIORESAL) TAB PO PRN (02:57)
--- NOTE | 2022-02-01 05:26 | PM&R Progress Note ---
Subjective HPI/CC On Admission Date Seen by Provider: Feb 01, 2022 Time Seen by Provider: 09:15 Subjective/Events-last exam 02/01/22: Pt may have endoscopy to decompress colon there is confusion between Dr Solis and call coverage Dr Ibrahim whether it is required of not Pt has excuses for everything and seems to be very detrimental in his motivation Had a long talk with the at the bedside that no indication that end of life is near but he could will himself to I recommended to grind it out and continue with therapy and work everyday to get improved and get home, out of the hospital and to quit having a poor attitude on approach Labs are within normal limits 01/31/2022: Patient having more abdominal distention Magnesium citrate and enema did not really result in much results Supportive care will continue Abdominal x-ray ordered showing colonic distention Dr. Ibrahim consulted may require endoscope for decompression Minimizing pain medications priority 01/30/22: Patient handling things well Multiple complaints about pain issues Left rib fractures will take time to heal Checked meds and labs 01/29/2022: Pt is doing pretty well Hemoglobin is 7.7 PICC line will be provided since he has poor venous access IV iron initiated Heart rate is 118 Small bowel movement yesterday, gave him all the laxatives Review of Systems General: Fatigue, Malaise Gastrointestinal: Abdominal Pain, Constipation Objective Exam Vital Signs Vital Signs Date Time Temp Pulse Resp B/P (MAP) Pulse Ox O2 Delivery O2 Flow Rate FiO2 02/01/22 22:35 Nasal Cannula 3.00 02/01/22 20:31 91 02/01/22 20:15 38.2 99 20 115/58 (77) Capillary Refill : General Appearance: WD/WN, Anxious, Chronically ill, Mild Distress HEENT: PERRL/EOMI, Normal ENT Inspection, Pharynx Normal Neck: Full Range of Motion, Normal Inspection, Non Tender, Supple, Carotid Bruit Respiratory: Chest Non Tender, Lungs Clear, Normal Breath Sounds, No Accessory Muscle Use, No Respiratory Distress Cardiovascular: No Edema, No Gallop, No JVD, No Murmur, Normal Peripheral Pulses, Tachycardia Gastrointestinal: Normal Bowel Sounds, No Organomegaly, No Pulsatile Mass, Non Tender, Soft Rectal: Deferred Back: Normal Inspection, No CVA Tenderness, No Vertebral Tenderness Extremity: Normal Capillary Refill, Normal Inspection, Normal Range of Motion, Non Tender, No Calf Tenderness, No Pedal Edema Neurologic/Psychiatric: Alert, Oriented x3, Normal Mood/Affect, golf cart 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 FIM Transfers Therapy Code Descriptions/Definitions Functional Hand Measure: 0=Not Assessed/NA 4=Minimal Assistance 1=Total Assistance 5=Supervision or Setup 2=Maximal Assistance 6=Modified Hand 3=Moderate Assistance 7=Complete IndependenceSCALE: Activities may be completed with or without assistive devices. 3-Omjtnygtka-jidxxun completes the activity by him/herself with no assistance from a helper. 5-Set-up or Clean-up Assistance-helper sets up or cleans up; patient completes activity. [place] assists only prior to or following the activity. 4-Supervision or Touching Assistance-helper provides verbal cues and/or touching/steadying and/or contact guard assistance as patient completes activity. Assistance may be provided throughout the activity or intermittently. 3-Partial/Moderate Assistance-helper does LESS THAN HALF the effort. [place] lifts, holds or supports trunk or limbs, but provides less than half the effort. 2-Substantial/Maximal Assistance-helper does MORE THAN HALF the effort. [place] lifts or holds trunk or limbs and provides more than half the effort. 8-Ttiqlrucy-ufxboc does ALL the effort. Patient does none of the effort to complete the activity. Or, the assistance of 2 or more helpers is required for the patient to complete the activity. If activity was not attempted, code reason: 7-Patient Refused. 9-Not Applicable-not attempted and the patient did not perform the activity before the current illness, exacerbation or injury. 10-Not Attempted due to Environmental Limitations-(lack of equipment, weather restraints, etc.). 88-Not Attempted due to Medical Conditions or Safety Concerns. Roll Left to Right (QC): 4 Sit to Lying (QC): 3 Sit to Stand (QC): 5 Chair/Vcj-hh-Goorg Xfer(QC): 4 Car Transfer (QC): 4 (CGA) Gait Training Does the Patient Walk?: Yes Distance: 75' x 1 25' x 1 Walk 10 feet (QC): 5 Walk 50 ft with 2 Turns(QC): 4 Walk 150 ft (QC): 4 Walking 10ft/uneven surface-QC: 4 Gait Persons Needed: 1 Gait Assistive Device: FWW Wheelchair Training Does the Pt Use a Wheelchair?: No Wheel 50 ft with 2 turns (QC): 9 Wheel 150 ft (QC): 9 Type of Wheelchair: N/A Stair Training 1 Step (curb) (QC): 4 4 Steps (QC): 4 12 Steps (QC): 88 Balance Picking up an Object (QC): 88 (Due to pt diminished balance, unsafe to perform at this time.) ADL-Treatment Eating (QC): 5 Oral Hygiene (QC): 6 Bathing Location: L Arm, R Arm, L Upper Leg, R Upper Leg, L Lower Leg (including foot), R Lower Leg (including foot), Chest, Abdomen, Buttocks, Perineal Area Shower/Bathe Self (QC): 4 Upper Body Dressing (QC): 5 Lower Body Dressing (QC): 3 On/Off Footwear (QC): 2 (mod A) Toileting Hygiene (QC): 4 (per clinical judgment, pt able to complete with CGA.) Toilet Transfer (QC): 4 (per clinical judgment, SBA for safety.) Assessment/Plan Assessment and Plan Assess & Plan/Chief Complaint Assessment: Debility following fall with left-sided rib fractures and splenic laceration Prior CVA with worsening left-sided weakness Multiple falls at home recently Alcoholism Anxiety Tachycardia Acute blood loss anemia Gout COPD Colonic distention with obstipation consulted Dr. Ibrahim 01/31/2022 Plan: Aggressive rehab Supportive care Monitor heart rate 01/29/2022: Supportive care Monitor hemoglobin Iron infusions 01/30/22: Pain management Monitor closely 01/31/2022: Appreciate Dr. Ibrahim Clear liquids 02/01/22: Colonic distention management (1) Left-sided weakness Status: Acute (2) Spleen laceration Status: Acute (3) Hypertension Status: Chronic (4) Neuropathy Status: Chronic (5) Anxiety Status: Chronic (6) Gout (7) COPD (chronic obstructive pulmonary disease) (8) Alcoholism Status: Chronic HARDY CAMPBELL DO Feb 01, 2022 05:26
[2022-02-01] MEDS: MAGNESIUM OXIDE (MAG-OX)400 MG TAB PO SCH (06:00)
[2022-02-01] MEDS: KCL 10 MEQ TAB (MICRO K) PO SCH (06:00)
[2022-02-01] MEDS: MULTIVIT W/MINERALS TAB (THERAGRAN M) PO SCH (06:00)
[2022-02-01] MEDS: METOCLOPRAMIDE INJ 10 MG/2 ML (REGLAN) IVP SCH ×3 (06:00→17:47)
[2022-02-01] MEDS: CATHETER FLUSH 10 ML SYR IVP PRN (06:09)
[2022-02-01] MEDS: CATHETER FLUSH 10 ML SYR IVP SCH ×3 (06:09→22:22)
[2022-02-01 06:19] LABS: BASOPHILS # (AUTO) 0.1 10^3/uL (0.0-0.1); BASOPHILS % (AUTO) 1 % (0-10); EOSINOPHILS # (AUTO) 0.2 10^3/uL (0.0-0.3); EOSINOPHILS % (AUTO) 2 % (0-10); HEMATOCRIT 26 % (40-54); HEMOGLOBIN 8.9 g/dL (13.3-17.7); LYMPHOCYTES % (AUTO) 10 % (12-44); MEAN CORPUSCULAR HEMOGLOBIN 39 pg (25-34); MEAN CORPUSCULAR HGB CONC 34 g/dL (32-36); MEAN CORPUSCULAR VOLUME 114 fL (80-99); MEAN PLATELET VOLUME 9.7 fL (9.0-12.2); MONOCYTES # (AUTO) 1.2 10^3/uL (0.0-1.0); MONOCYTES % (AUTO) 12 % (0-12); NEUTROPHILS # (AUTO) 7.4 10^3/uL (1.8-7.8); NEUTROPHILS % (AUTO) 75 % (42-75); PLATELET COUNT 331 10^3/uL (130-400); WHITE BLOOD COUNT 9.9 10^3/uL (4.3-11.0)
[2022-02-01 06:40] LABS: ALBUMIN 2.5 GM/DL (3.2-4.5); BILIRUBIN,TOTAL 1.2 MG/DL (0.1-1.0); CALCIUM 8.2 MG/DL (8.5-10.1); CREATININE SERUM 0.69 MG/DL (0.60-1.30); MAGNESIUM 2.1 MG/DL (1.6-2.4); PHOSPHORUS 2.9 MG/DL (2.3-4.7); POTASSIUM 3.6 MMOL/L (3.6-5.0); TOTAL PROTEIN 5.6 GM/DL (6.4-8.2)
[2022-02-01] MEDS: RT-ALBUTEROL/IPRATROPIUM 3 ML (DUONEB) VIAL INH SCH ×3 (07:05→20:31)
--- NOTE | 2022-02-01 07:06 | Progress Note - Surgery ---
GABRIELA NOLAN 02/01/22 0706: Subjective Date Seen by a Provider: Feb 01, 2022 Time Seen by a Provider: 06:47 Subjective/Events-last exam Pt reports that he has not had any bowel movements or episodes of flatus since he was seen yesterday. States that he has had the sensation that he needs to pass flatus but then nothing comes out. Says that he is not having any abdominal pain and that he just feels bloated. He reports that he went almost 24 hours w/o receiving any pain medication, took some last night due to severe rib pain. Pt got up and walked around on the floor once yesterday. Denies having any other concerns. Review of Systems General: No Chills, No Other (fever) HEENT: No Head Aches, No Visual Changes Pulmonary: Dyspnea, Cough Cardiovascular: No: Chest Pain, Palpitations Gastrointestinal: No: Nausea, Vomiting, Abdominal Pain Genitourinary: No Dysuria, No Frequency Musculoskeletal: No: neck pain, back pain Neurological: Weakness (chronic left side); No: Change in speech Objective Exam Vital Signs Date Time Temp Pulse Resp B/P (MAP) Pulse Ox O2 Delivery O2 Flow Rate FiO2 01/31/22 21:00 95 Nasal Cannula 2.00 01/31/22 20:32 Room Air 01/31/22 19:58 37.4 94 20 114/75 (88) 92 Nasal Cannula 2.00 01/31/22 09:30 Room Air 01/31/22 08:22 Nasal Cannula 2.00 01/31/22 08:18 93 Nasal Cannula 3.00 01/31/22 07:30 37.4 108 18 116/63 (80) 91 Nasal Cannula 3.00 Capillary Refill : General Appearance: No Apparent Distress, WD/WN, Anxious, Chronically ill Neck: Non Tender, Supple Respiratory: No Chest Non Tender (left lower ribs); Lungs Clear, Normal Breath Sounds, No Accessory Muscle Use, No Respiratory Distress Cardiovascular: Regular Rate, Rhythm, No Edema, No JVD, No Murmur, Normal Fina pheral Pulses Gastrointestinal: normal bowel sounds, distended, tenderness (deep palpitation LUQ) Extremity: Non Tender, No Calf Tenderness, Pedal Edema Neurologic/Psychiatric: Alert, Oriented x3, Normal Mood/Affect, Motor Weakness (Left-sided weakness upper extremity > lower extremity) Skin: Normal Color, Warm/Dry Lymphatic: No Adenopathy (cervical) Results Lab Laboratory Tests 01/31/22 07:22: White Blood Count 12.0H, Red Blood Count 2.36L, Hemoglobin 9.3#L, Hematocrit 27L , Mean Corpuscular Volume 114H, Mean Corpuscular Hemoglobin 39H, Mean Corpuscular Hemoglobin Concent 34, Red Cell Distribution Width 13.8, Platelet Count 312, Mean Platelet Volume 9.5, Immature Granulocyte % (Auto) 1, Neutrophils (%) (Auto) 78H, Lymphocytes (%) (Auto) 8L, Monocytes (%) (Auto) 11, Eosinophils (%) (Auto) 2, Basophils (%) (Auto) 0, Neutrophils # (Auto) 9.4H, Lymphocytes # (Auto) 1.0, Monocytes # (Auto) 1.3H, Eosinophils # (Auto) 0.2, Basophils # (Auto) 0.0, Immature Granulocyte # (Auto) 0.1, Sodium Level 134L, Potassium Level 3.7, Chloride Level 99, Carbon Dioxide Level 27, Anion Gap 8, Blood Urea Nitrogen 14, Creatinine 0.64, Estimat Glomerular Filtration Rate 109, BUN/Creatinine Ratio 22, Glucose Level 116H, Calcium Level 8.7, Corrected Calcium 9.5, Phosphorus Level 3.0, Magnesium Level 2.2, Total Bilirubin 1.6H, Aspartate Amino Transf (AST/SGOT) 33, Alanine Aminotransferase (ALT/SGPT) 18, Alkaline Phosphatase 95, Total Protein 6.1L, Albumin 3.0L 02/01/22 06:00: White Blood Count 9.9, Red Blood Count 2.30L, Hemoglobin 8.9L, Hematocrit 26L, Mean Corpuscular Volume 114H, Mean Corpuscular Hemoglobin 39H, Mean Corpuscular Hemoglobin Concent 34, Red Cell Distribution Width 14.2, Platelet Count 331, Mean Platelet Volume 9.7, Immature Granulocyte % (Auto) 1, Neutrophils (%) (Auto) 75, Lymphocytes (%) (Auto) 10L, Monocytes (%) (Auto) 12, Eosinophils (%) (Auto) 2, Basophils (%) (Auto) 1, Neutrophils # (Auto) 7.4, Lymphocytes # (Auto) 1.0, Monocytes # (Auto) 1.2H, Eosinophils # (Auto) 0.2, Basophils # (Auto) 0.1, Immature Granulocyte # (Auto) 0.1, Sodium Level 132L, Potassium Level 3.6, Chloride Level 99, Carbon Dioxide Level 25, Anion Gap 8, Blood Urea Nitrogen 16, Creatinine 0.69, Estimat Glomerular Filtration Rate 107, BUN/Creatinine Ratio 23, Glucose Level 104, Calcium Level 8.2L, Corrected Calcium 9.4, Phosphorus Level 2.9, Magnesium Level 2.1, Total Bilirubin 1.2H, Aspartate Amino Transf (AST/SGOT) 31, Alanine Aminotransferase (ALT/SGPT) 15, Alkaline Phosphatase 93, Total Protein 5.6L, Albumin 2.5L Assessment/Plan Assessment/Plan Assessment/Plan Abdominal distention/constipation Ileuscolonic S/p same level fall with left rib fx 10-12 and grade 2-3 splenic laceration treated conservatively Prior CVA with worsening left-sided weakness Alcoholism Anxiety Acute blood loss anemia Gout COPD Abdominal XR ordered this yesterday demonstrating colonic distention, will repeat this AM Currently on clear liquids, continue Hgb slightly decreased today at 8.9, from 9.3 yesterday, Continue to monitor Continue PT and ambulation, Patient instructed to try to limit narcotic use and increase activity again this morning Possibly may need colonic decompression with endoscopy. MOIZ IBRAHIM DO 02/01/22 1236: Subjective Subjective/Events-last exam Patient no bowel function. Abdomen still distended and uncomfortable. Still with left sided rib pain. Ambulated some. KUB this am showing colonic distention. Denies n/v fever sweats chills shortness of breath or chest pain at this time. Objective Exam General Appearance: No Apparent Distress, WD/WN, Anxious, Chronically ill HEENT: PERRL/EOMI, Normal ENT Inspection Neck: Full Range of Motion, Non Tender, Supple Respiratory: No Chest Non Tender (left lower ribs); No Accessory Muscle Use, No Respiratory Distress Cardiovascular: Regular Rate, Rhythm, No JVD Gastrointestinal: distended, tenderness (deep palpitation LUQ) Extremity: Non Tender, No Calf Tenderness Neurologic/Psychiatric: Alert, Oriented x3, Motor Weakness (Left-sided weakness upper extremity > lower extremity) Skin: Normal Color, Warm/Dry Lymphatic: No Adenopathy (cervical) Assessment/Plan Assessment/Plan Assessment/Plan Abdominal distention/constipation Ileuscolonic S/p same level fall with left rib fx 10-12 and grade 2-3 splenic laceration treated conservatively Prior CVA with worsening left-sided weakness Alcoholism Anxiety Acute blood loss anemia Gout COPD Abdominal XR ordered this yesterday demonstrating colonic distention, will repeat this AM Make NPO Hgb slightly decreased today at 8.9, from 9.3 yesterday, Continue to monitor Continue PT and ambulation, Patient instructed to try to limit narcotic use and increase activity again this morning Discussed risks and benefits of colonic decompression with colonoscopy all other indicated procedures to be done today. Supervisory-Addendum Brief Verification & Attestation Participated in pt care: history, MDM, physical Personally performed: exam, history, MDM, supervision of care Care discussed with: Medical Student Procedures: n/a Results interpretation: Verified all documentation Verification and Attestation of Medical Student E/M Service A medical student performed and documented this service in my presence. I reviewed and verified all information documented by the medical student and made modifications to such information, when appropriate. I personally performed the physical exam and medical decision making. Moiz Ibrahim, Feb 01, 2022,12:36 GABRIELA NOLAN Feb 01, 2022 07:06 MOIZ IBRAHIM DO Feb 01, 2022 12:36
[2022-02-01 07:51] VITALS: BP 91/54
[2022-02-01] MEDS: DOCUSATE SODIUM 100 MG (COLACE) CAP PO SCH ×2 (08:07→21:51)
[2022-02-01] MEDS: SENNA W/DOCUSATE (SENOKOT S) TABLET PO SCH ×2 (08:07→21:30)
[2022-02-01] MEDS: FOLIC ACID 1 MG TAB PO SCH (08:07)
[2022-02-01] MEDS: PANTOPRAZOLE 40 MG (PROTONIX) TAB PO SCH (08:07)
[2022-02-01] MEDS: SENNOSIDES 8.6 MG (SENOKOT) TAB PO SCH ×2 (08:07→21:30)
[2022-02-01] MEDS: ATENOLOL 50 MG (TENORMIN) TAB PO SCH (08:07)
[2022-02-01] MEDS: IRON SUCROSE 200 MG/10 ML (VENOFER) VIAL IV SCH (08:08)
[2022-02-01] MEDS: polyethylene glycoL POWDER 17 GM (MIRALAX) PACK PO SCH ×2 (08:08→21:30)
[2022-02-01 08:11] VITALS: BP 117/71
--- NOTE | 2022-02-01 08:20 | Diagnostic Imaging Report ---
Indication: Abdominal distention. Time Of Exam: 7:51 AM Correlation is made with abdominal radiograph from one day earlier. There continues to be gaseous distention to the colon. No definite wall thickening or pneumatosis is seen. No free air is identified. Small bowel does not appear to be appreciably dilated. IMPRESSION: Colonic gaseous distention, similar to an examination one day earlier. Dictated by: Dictated on workstation # [id number]
--- NOTE | 2022-02-01 08:23 | Cardiology Progress Note ---
Subjective Date Seen by Provider: Feb 01, 2022 Time Seen by Provider: 08:17 Subjective/Events-last exam Patient is currently having colonic ileus. Patient is being evaluated by general surgery. Patient has tried magnesium citrate and an enema with no success. Has abdominal distention with sluggish bowel sounds. Patient denies chest pain, light-headedness, dizziness, headache. Patient does have some SOB that hasn't been improving or worsening. Patients is still having pitting peripheral edema. Review of Systems General: No Chills; Fatigue HEENT: No Head Aches, No Visual Changes Pulmonary: Dyspnea; No Cough Cardiovascular: No: Chest Pain, Palpitations, Edema, Lt Headedness Gastrointestinal: Abdominal Pain, Constipation; No: Nausea, Vomiting Genitourinary: No Dysuria, No Frequency Objective-Cardiology Exam Last Set of Vital Signs Vital Signs 02/01/22 02/01/22 02/01/22 07:51 08:11 09:59 Temp 37.4 Pulse 98 Resp 18 B/P (MAP) 117/71 (86) Pulse Ox 90 O2 Delivery Room Air O2 Flow Rate 3.00 General: Alert, Oriented X3, Cooperative HEENT: Atraumatic, PERRLA Neck: Supple, No JVD, No Thyromegaly Lungs: Clear to Auscultation, Normal Air Movement Heart: Regular Rate, Normal S1, Normal S2, No Murmurs Abdomen: Other (abdominal distention, diminished bowel sounds) Extremities: Normal Pulses, Other (periperhal edema ) Skin: No Rashes, No Breakdown, No Significant Lesion Neuro: Normal Speech, Sensation Intact Psych/Mental Status: Mental Status NL, Mood NL Results Lab Laboratory Tests 02/01/22 06:00 A/P-Cardiology Admission Diagnosis Sinus Tachycardia Splenic laceration with perisplenic hematoma Abdominal and pelvic hemoperitoneum History of CVA Assessment/Plan Sinus Tachycardia of undetermined etiology Restarted on atenolol, continue to monitor heart rate and blood pressure Hemoglobin at 8.9 today, has increased over the weekend, down from 9.3 yesterday, continue to monitor Colonic ileus Patient s/p splenic laceration with perisplenic hematoma and hemoperitoneum with left rib 10-12 fx Magnesium citrate and enema unsuccessful General surgery consulted, considering endoscopic colonic decompression managed by general surgery team Splenic laceration with perisplenic hematoma and hemoperitoneum Continue with conservative management per general surgery Continue to hold Aspirin Non-displaced left 10-12th left rib fracture Conservative management PT/OT Continue with IS until patient is able to better expand chest wall Hypertension Patient is maintained at home on amlodipine 5 and atenolol 25, currently managed by medical team Hyperlipidemia Patient is maintained at home on atorvastatin 80, currently managed by medical team History of CVA , Cryptogenic stroke. Patient maintained at home on aspirin, currently holding due to splenic lac eration Continue to monitor telemetry History of loop monitor implantation done for cryptogenic stroke. We will continue to monitor and interpret rhythm Alcoholism Patient currently on CIWA protocol, managed by medical team Supervisory-Addendum Brief Verification & Attestation Participated in pt care: history, MDM, physical Personally performed: exam, history, MDM, supervision of care Care discussed with: Medical Student Procedures: n/a Results interpretation: Verified all documentation Verification and Attestation of Medical Student E/M Service A medical student performed and documented this service in my presence. I reviewed and verified all information documented by the medical student and made modifications to such information, when appropriate. I personally performed the physical exam and medical decision making. Patient was seen at bedside laying down comfortably, having significant abdominal distention Having significant peripheral edema Still having constipation at this time. Alexia Walker Feb 01, 2022,12:33 STELLA DELGADO Feb 01, 2022 08:22 ALEXIA WALKER MD Feb 01, 2022 12:34
--- NOTE | 2022-02-01 10:39 | Occupational Ther Daily Note ---
OT Current Status-Daily Note Subjective Pt alert, lying in bed. Pt agrees to therapy after encouragement. Pt very anxious about colonoscopy this afternoon and the amount of people with different information. Physician in to talk with pt and . Mental Status/Objective Patient Orientation: Person, Place, Time, Situation Attachments: IV, Oxygen ADL-Treatment Pt declines shower until after colonoscopy, tomorrow is good for pt. Pt agrees to sponge bath. After set up and verbal cues, pt able to bathe all areas except lower legs/feet. SBA in standing while pt cleanses buttocks/veronica area. Assist to don/doff socks due to distended abdomen and rib pain. Pt took increased time to complete all tasks due to pain, anxiety and unfocused. Pt ambulated to bathroom to sit at sink while completing oral care and grooming by self. Pt ambulated back to bed and required min A to lift R LE into bed and position. Call light/phone in reach at end of session. All needs met in room. Therapy Code Descriptions/Definitions Functional Andrews Measure: 0=Not Assessed/NA 4=Minimal Assistance 1=Total Assistance 5=Supervision or Setup 2=Maximal Assistance 6=Modified Andrews 3=Moderate Assistance 7=Complete IndependenceSCALE: Activities may be completed with or without assistive devices. 1-Fnwkodqiuo-esurspl completes the activity by him/herself with no assistance from a helper. 5-Set-up or Clean-up Assistance-helper sets up or cleans up; patient completes activity. [place] assists only prior to or following the activity. 4-Supervision or Touching Assistance-helper provides verbal cues and/or touching/steadying and/or contact guard assistance as patient completes activity. Assistance may be provided throughout the activity or intermittently. 3-Partial/Moderate Assistance-helper does LESS THAN HALF the effort. [place] lifts, holds or supports trunk or limbs, but provides less than half the effort. 2-Substantial/Maximal Assistance-helper does MORE THAN HALF the effort. [place] lifts or holds trunk or limbs and provides more than half the effort. 1-Hpaoccewz-lcgduv does ALL the effort. Patient does none of the effort to complete the activity. Or, the assistance of 2 or more helpers is required for the patient to complete the activity. If activity was not attempted, code reason: 7-Patient Refused. 9-Not Applicable-not attempted and the patient did not perform the activity before the current illness, exacerbation or injury. 10-Not Attempted due to Environmental Limitations-(lack of equipment, weather restraints, etc.). 88-Not Attempted due to Medical Conditions or Safety Concerns. Oral Hygiene (QC): 6 Shower/Bathe Self (QC): 3 (min A) Upper Body Dressing (QC): 3 (min A) On/Off Footwear: 2 OT Short Term Goals Short Term Goals Time Frame: Feb 16, 2022 Toileting hygiene: 4 Shower/bathe self: 4 Lower body dressin Putting on/taking off footwear: 4 OT Alf Goals Alf Goals Time Frame: Feb 26, 2022 Eating (QC): 6 Oral Hygiene (QC): 6 Toileting Hygiene (QC): 6 Shower/Bathe Self (QC): 6 Upper Body Dressing (QC): 6 Lower Body Dressing (QC): 6 On/Off Footwear (QC): 6 Additional Goals: 1-Demonstrate ADL Tasks, 2-Verbalize Understanding, 3- ImproveStrength/Francesca 1=Demonstrate adherence to instructed precautions during ADL tasks. 2=Patient will verbalize/demonstrate understanding of assistive devices/modifications for ADL. 3=Patient will improve strength/tolerance for activity to enable patient to perform ADL's. OT Education/Plan Problem List/Assessment Assessment: Decreased Activ Tolerance, Decreased UE Strength, Impaired Self- Care Skills, Restricted Funct UE ROM (L UE) Discharge Recommendations Plan/Recommendations: Continue POC Treatment Plan/Plan of Care Patient would benefit from OT for education, treatment and training to promote independence in ADL's, mobility, safety and/or upper extremity function for ADL's. Plan of Care: ADL Retraining, Functional Mobility, Group Exercise/Act as Ind, UE Funct Exercise/Act, UE Neuromus Re-Ed/Coord Treatment Duration: Feb 26, 2022 Frequency: At least 5 of 7 days/Wk (IRF) Estimated Hrs Per Day: 1.5 hours per day Rehab Potential: Fair Time/GCodes Start Time: 09:00 Stop Time: 10:30 Total Time Billed (hr/min): 90 Billed Treatment Time 1 visit-ADL 6 (90 min) SUNIL DAMON Feb 01, 2022 10:38
--- NOTE | 2022-02-01 10:45 | Progress Note ---
BLAYNE HOLLINS 02/01/22 1045: Progress Note Today patient abdomen is distended and is gaseous distention per KUB today and planned for decompressive colonoscopy today with Dr. Ibrahim. Patient NPO and minimized pain medication. ROMANA CAMPBELL DO 02/02/22 0528: Supervisory-Addendum Brief Verification & Attestation Participated in pt care: history, MDM, physical Personally performed: exam, history, MDM, supervision of care Care discussed with: Medical Student Procedures: n/a Results interpretation: Verified all documentation Verification and Attestation of Medical Student E/M Service A medical student performed and documented this service in my presence. I reviewed and verified all information documented by the medical student and made modifications to such information, when appropriate. I personally performed the physical exam and medical decision making. Romana Campbell Feb 02, 2022,05:28 BLAYNE HOLLINS Feb 01, 2022 10:45 ROMANA CAMPBELL DO Feb 02, 2022 05:28
--- NOTE | 2022-02-01 11:30 | Physical Therapy Daily Note ---
PT Daily Note-Current Subjective Patient appears more swollen in the abdominal region and still has swelling in Bilateral lower leg L>R. Patient reports that last night he was in severe pain near the rib area, but this morning his pain was a 4/10. Patient states that he was not able to move much over the weekend. Pt states he will be getting a colon oscopy at some point today. Pain Numeric Pain Scale: 4 Location Body Site: Abdomen Mental Status Patient Orientation: Person, Place, Situation Attachments: Oxygen Transfers SCALE: Activities may be completed with or without assistive devices. 4-Qnyiobtaiu-bgoqifa completes the activity by him/herself with no assistance from a helper. 5-Set-up or Clean-up Assistance-helper sets up or cleans up; patient completes activity. [place] assists only prior to or following the activity. 4-Supervision or Touching Assistance-helper provides verbal cues and/or touching/steadying and/or contact guard assistance as patient completes activity. Assistance may be provided throughout the activity or intermittently. 3-Partial/Moderate Assistance-helper does LESS THAN HALF the effort. [place] lifts, holds or supports trunk or limbs, but provides less than half the effort. 2-Substantial/Maximal Assistance-helper does MORE THAN HALF the effort. [place] lifts or holds trunk or limbs and provides more than half the effort. 6-Dsvaqrjuc-rvsxxi does ALL the effort. Patient does none of the effort to complete the activity. Or, the assistance of 2 or more helpers is required for the patient to complete the activity. If activity was not attempted, code reason: 7-Patient Refused. 9-Not Applicable-not attempted and the patient did not perform the activity before the current illness, exacerbation or injury. 10-Not Attempted due to Environmental Limitations-(lack of equipment, weather restraints, etc.). 88-Not Attempted due to Medical Conditions or Safety Concerns. Roll Left & Right (QC): 3 Sit to Lying (QC): 3 Lying to Sitting/Side of Bed(Q: 3 Sit to Stand (QC): 4 Chair/Pob-if-Dkxca Xfer(QC): 4 Weight Bearing Full Weight Bearing Full Weight Bearing Gait Training Does the Patient Walk?: Yes Distance: 100ft Walk 10 feet (QC): 4 Walk 50 ft with 2 Turns(QC): 4 Gait Assistive Device: FWW Wheelchair Training Does the Pt Use a Wheelchair?: Yes Patient required to be wheeled back due to fatigue Exercises Standing: Hamstring curls, 3 way Ex=Flex, Abd, Ext, Marching, Sit to Stand (5 reps) Standing Reps: 10 In parallel bars. Walked 5ft forward, 5ft backwards without UE support NuStep Minutes: 12 NuStep Workload: 4 Treatments LE strengthening, Functional Activity, Gait Assessment Current Status: Fair Progress Patient showed good strength with sit to stand requiring CGA, standing LE exercises, and walking as he was able to tolerate walking 100ft from room to rehab room and walk 5ft forward and 5ft backwards in parrallel bar without use of railing for support. Patient was SOB after all activities, likely secondary to abdominal swelling. Patient terminated the NuStep at 12min. Patient required to be wheeled back to room due to fatigue. PT Outside Rigger Goals Outside Rigger Goals PT Usp Goals Time Frame: Feb 25, 2022 Roll Left & Right (QC): 6 Sit to Lying (QC): 6 Lying-Sitting on Side/Bed(QC): 6 Sit to Stand (QC): 6 Chair/Yww-zs-Vcvyb Xfer(QC): 6 Toilet Transfer (QC): 6 Car Transfer (QC): 6 Does the Patient Walk: Yes Walk 10 feet (QC): 6 Walk 50ft with 2 Turns (QC): 6 Walk 150 ft (QC): 6 Walking 10ft on Uneven Surface: 6 1 Step (curb) (QC): 6 4 Steps (QC): 6 12 Steps (QC): 6 Picking up an Object (QC): 6 Does the Pt use WC or Scooter?: No Wheel 50 feet with 2 turns (QC: 9 Type: N/A Wheel 150 feet: 9 Type: N/A PT Plan Problem List Problem List: Activity Tolerance, Functional Strength, Safety, Balance, Gait, Transfer, Bed Mobility Treatment/Plan Treatment Plan: Continue Plan of Care Treatment Plan: Bed Mobility, Concurrent Therapy, Education, Functional Activity Francesca, Functional Strength, Group Therapy, Gait, Safety, Therapeutic Exercise, Transfers Treatment Duration: Feb 25, 2022 Frequency: At least 5 of 7 days/Wk (IRF) Estimated Hrs Per Day: 1.5 hours per day Patient and/or Family Agrees t: Yes Safety Risks/Education Patient Education: Gait Training, Transfer Techniques, Correct Positioning, Safety Issues Teaching Recipient: Patient Teaching Methods: Discussion Response to Teaching: Verbalize Understanding Time/GCodes Time In: 1030 Time Out: 1130 Total Billed Treatment Time: 60 Total Billed Treatment 1 visit FA 30min EX 30min KRISTINE HAWK PT Feb 01, 2022 11:29
--- NOTE | 2022-02-01 14:17 | Physical Therapy Daily Note ---
PT Daily Note-Current Subjective Patient was in bed upon entry and states they are transferring him to get a colonoscopy in 30min. Patient appears to be in a lot of pain Pain Numeric Pain Scale: 8 Location Body Site: Abdomen Mental Status Patient Orientation: Person, Place, Situation Attachments: Oxygen Transfers SCALE: Activities may be completed with or without assistive devices. 0-Tbmxhquazu-qljxaur completes the activity by him/herself with no assistance from a helper. 5-Set-up or Clean-up Assistance-helper sets up or cleans up; patient completes activity. [place] assists only prior to or following the activity. 4-Supervision or Touching Assistance-helper provides verbal cues and/or touching/steadying and/or contact guard assistance as patient completes activity. Assistance may be provided throughout the activity or intermittently. 3-Partial/Moderate Assistance-helper does LESS THAN HALF the effort. [place] lifts, holds or supports trunk or limbs, but provides less than half the effort. 2-Substantial/Maximal Assistance-helper does MORE THAN HALF the effort. [place] lifts or holds trunk or limbs and provides more than half the effort. 7-Efmpenjwz-hmnnbn does ALL the effort. Patient does none of the effort to complete the activity. Or, the assistance of 2 or more helpers is required for the patient to complete the activity. If activity was not attempted, code reason: 7-Patient Refused. 9-Not Applicable-not attempted and the patient did not perform the activity before the current illness, exacerbation or injury. 10-Not Attempted due to Environmental Limitations-(lack of equipment, weather restraints, etc.). 88-Not Attempted due to Medical Conditions or Safety Concerns. Weight Bearing Full Weight Bearing Full Weight Bearing Gait Training Does the Patient Walk?: Yes Exercises Supine Ex: Ankle pumps, Heel Slides Supine Reps: 10 Treatments LE strength, ROM Assessment Current Status: Fair Progress Patient completed 2hrs 40min out of 3hrs scheduled for today. Patient expressed that he was in too much pain with any movement, with visible grimacing, and asked to stop treatment. Patient states that he will be leaving to for his procedure in 30min. PT Lathe Scalper Operator Goals Mcc Goals PT Mcc Goals Time Frame: Feb 25, 2022 Roll Left & Right (QC): 6 Sit to Lying (QC): 6 Lying-Sitting on Side/Bed(QC): 6 Sit to Stand (QC): 6 Chair/Mtx-lj-Jbceo Xfer(QC): 6 Toilet Transfer (QC): 6 Car Transfer (QC): 6 Does the Patient Walk: Yes Walk 10 feet (QC): 6 Walk 50ft with 2 Turns (QC): 6 Walk 150 ft (QC): 6 Walking 10ft on Uneven Surface: 6 1 Step (curb) (QC): 6 4 Steps (QC): 6 12 Steps (QC): 6 Picking up an Object (QC): 6 Does the Pt use WC or Scooter?: No Wheel 50 feet with 2 turns (QC: 9 Type: N/A Wheel 150 feet: 9 Type: N/A PT Plan Problem List Problem List: Activity Tolerance, Functional Strength, Safety, Balance, Gait, Transfer, Bed Mobility, ROM Treatment/Plan Treatment Plan: Continue Plan of Care Treatment Plan: Bed Mobility, Concurrent Therapy, Education, Functional Activity Francesca, Functional Strength, Group Therapy, Gait, Safety, Therapeutic Exercise, Transfers Treatment Duration: Feb 25, 2022 Frequency: At least 5 of 7 days/Wk (IRF) Estimated Hrs Per Day: 1.5 hours per day Patient and/or Family Agrees t: Yes Safety Risks/Education Patient Education: Correct Positioning Teaching Recipient: Patient Teaching Methods: Discussion Time/GCodes Time In: 1400 Time Out: 1410 Total Billed Treatment Time: 10 Total Billed Treatment 1 visit EX 10min KRISTINE HAWK PT Feb 01, 2022 14:17
[2022-02-01 15:40] VITALS: BP 115/70
[2022-02-01 20:15] VITALS: BP 115/58
[2022-02-01] MEDS: MELATONIN 3 MG TABLET PO PRN (21:50)
[2022-02-02] MEDS: METOCLOPRAMIDE INJ 10 MG/2 ML (REGLAN) IVP SCH ×4 (00:28→17:11)
[2022-02-02] MEDS: BACLOFEN 10 MG (LIORESAL) TAB PO PRN (03:50)
--- NOTE | 2022-02-02 05:39 | PM&R Progress Note ---
Subjective HPI/CC On Admission Date Seen by Provider: Feb 02, 2022 Time Seen by Provider: 09:00 Subjective/Events-last exam 02/02/22: Patient walking pretty well Colonoscopy decompression has helped tremendously and had a large BM yesterday evening Pain is still an issue which will be until ribs heal Alcoholism has placed him at major risks the issues he is currently having previously had 02/01/22: Pt may have endoscopy to decompress colon there is confusion between Dr Solis and call coverage Dr Ibrahim whether it is required of not Pt has excuses for everything and seems to be very detrimental in his motivation Had a long talk with the at the bedside that no indication that end of life is near but he could will himself to I recommended to grind it out and continue with therapy and work everyday to get improved and get home, out of the hospital and to quit having a poor attitude on approach Labs are within normal limits 01/31/2022: Patient having more abdominal distention Magnesium citrate and enema did not really result in much results Supportive care will continue Abdominal x-ray ordered showing colonic distention Dr. Ibrahim consulted may require endoscope for decompression Minimizing pain medications priority 01/30/22: Patient handling things well Multiple complaints about pain issues Left rib fractures will take time to heal Checked meds and labs 01/29/2022: Pt is doing pretty well Hemoglobin is 7.7 PICC line will be provided since he has poor venous access IV iron initiated Heart rate is 118 Small bowel movement yesterday, gave him all the laxatives Review of Systems General: Fatigue, Malaise Gastrointestinal: Abdominal Pain Neurological: Weakness Objective Exam Vital Signs Vital Signs Date Time Temp Pulse Resp B/P (MAP) Pulse Ox O2 Delivery O2 Flow Rate FiO2 02/02/22 21:00 37.0 95 20 99/64 (76) 95 Nasal Cannula 2.50 Capillary Refill : General Appearance: WD/WN, Anxious, Chronically ill, Mild Distress HEENT: PERRL/EOMI, Normal ENT Inspection, Pharynx Normal Neck: Full Range of Motion, Normal Inspection, Non Tender, Supple, Carotid Bruit Respiratory: Chest Non Tender, Lungs Clear, Normal Breath Sounds, No Accessory Muscle Use, No Respiratory Distress Cardiovascular: No Edema, No Gallop, No JVD, No Murmur, Normal Peripheral Pulses, Tachycardia Gastrointestinal: Normal Bowel Sounds, No Organomegaly, No Pulsatile Mass, Non Tender, Soft Rectal: Deferred Back: Normal Inspection, No CVA Tenderness, No Vertebral Tenderness Extremity: Normal Capillary Refill, Normal Inspection, Normal Range of Motion, Non Tender, No Calf Tenderness, No Pedal Edema Neurologic/Psychiatric: Alert, Oriented x3, Normal Mood/Affect, criminology teacher II-XII Norm as Tested, Motor Weakness (Left-sided weakness upper extremity > lower extremity) Skin: Normal Color, Warm/Dry Lymphatic: No Adenopathy Results/Procedures Lab Patient resulted labs reviewed. FIM Transfers Therapy Code Descriptions/Definitions Functional [place] Measure: 0=Not Assessed/NA 4=Minimal Assistance 1=Total Assistance 5=Supervision or Setup 2=Maximal Assistance 6=Modified [place] 3=Moderate Assistance 7=Complete IndependenceSCALE: Activities may be completed with or without assistive devices. 6-Slamtxwhsy-sgbegie completes the activity by him/herself with no assistance from a helper. 5-Set-up or Clean-up Assistance-helper sets up or cleans up; patient completes activity. [place] assists only prior to or following the activity. 4-Supervision or Touching Assistance-helper provides verbal cues and/or touching/steadying and/or contact guard assistance as patient completes activity. Assistance may be provided throughout the activity or intermittently. 3-Partial/Moderate Assistance-helper does LESS THAN HALF the effort. [place] lifts, holds or supports trunk or limbs, but provides less than half the effort. 2-Substantial/Maximal Assistance-helper does MORE THAN HALF the effort. [place] lifts or holds trunk or limbs and provides more than half the effort. 4-Ijezppsjl-puplsi does ALL the effort. Patient does none of the effort to complete the activity. Or, the assistance of 2 or more helpers is required for the patient to complete the activity. If activity was not attempted, code reason: 7-Patient Refused. 9-Not Applicable-not attempted and the patient did not perform the activity before the current illness, exacerbation or injury. 10-Not Attempted due to Environmental Limitations-(lack of equipment, weather restraints, etc.). 88-Not Attempted due to Medical Conditions or Safety Concerns. Roll Left to Right (QC): 3 Sit to Lying (QC): 3 Sit to Stand (QC): 4 Chair/Uad-fj-Cpmxw Xfer(QC): 4 Car Transfer (QC): 4 (CGA) Gait Training Does the Patient Walk?: Yes Distance: 100ft Walk 10 feet (QC): 4 Walk 50 ft with 2 Turns(QC): 4 Walk 150 ft (QC): 4 Walking 10ft/uneven surface-QC: 4 Gait Persons Needed: 1 Gait Assistive Device: FWW Wheelchair Training Does the Pt Use a Wheelchair?: Yes Wheel 50 ft with 2 turns (QC): 9 Wheel 150 ft (QC): 9 Type of Wheelchair: N/A Stair Training 1 Step (curb) (QC): 4 4 Steps (QC): 4 12 Steps (QC): 88 Balance Picking up an Object (QC): 88 (Due to pt diminished balance, unsafe to perform at this time.) ADL-Treatment Eating (QC): 5 Oral Hygiene (QC): 6 Bathing Location: L Arm, R Arm, L Upper Leg, R Upper Leg, L Lower Leg (including foot), R Lower Leg (including foot), Chest, Abdomen, Buttocks, Perineal Area Shower/Bathe Self (QC): 3 (min A) Upper Body Dressing (QC): 3 (min A) Lower Body Dressing (QC): 3 On/Off Footwear (QC): 2 Toileting Hygiene (QC): 4 (per clinical judgment, pt able to complete with CGA.) Toilet Transfer (QC): 4 (per clinical judgment, SBA for safety.) Assessment/Plan Assessment and Plan Assess & Plan/Chief Complaint Assessment: Debility following fall with left-sided rib fractures and splenic laceration Prior CVA with worsening left-sided weakness Multiple falls at home recently Alcoholism Anxiety Tachycardia Acute blood loss anemia Gout COPD Colonic distention with obstipation consulted Dr. Ibrahim 01/31/2022 status post colonic decompression 02/01/2022 with good results and resolution of constipation Plan: Aggressive rehab Supportive care Monitor heart rate 01/29/2022: Supportive care Monitor hemoglobin Iron infusions 01/30/22: Pain management Monitor closely 01/31/2022: Appreciate Dr. Ibrahim Clear liquids 02/01/22: Colonic distention management 02/02/2022: Appreciate Dr. Ibrahim Supportive care (1) Left-sided weakness Status: Acute (2) Spleen laceration Status: Acute (3) Hypertension Status: Chronic (4) Neuropathy Status: Chronic (5) Anxiety Status: Chronic (6) Gout (7) COPD (chronic obstructive pulmonary disease) (8) Alcoholism Status: Chronic HARDY CAMPBELL DO Feb 02, 2022 05:39
[2022-02-02] MEDS: MULTIVIT W/MINERALS TAB (THERAGRAN M) PO SCH (06:16)
[2022-02-02] MEDS: CATHETER FLUSH 10 ML SYR IVP SCH ×3 (06:16→21:05)
[2022-02-02] MEDS: MAGNESIUM OXIDE (MAG-OX)400 MG TAB PO SCH (06:16)
[2022-02-02] MEDS: KCL 10 MEQ TAB (MICRO K) PO SCH (06:16)
--- NOTE | 2022-02-02 07:17 | Progress Note - Surgery ---
GABRIELA NOLAN 02/02/22 0717: Subjective Date Seen by a Provider: Feb 02, 2022 Time Seen by a Provider: 06:49 Subjective/Events-last exam Pt reports that his abdomen feels less distended today than it did yesterday before the decompressive colonoscopy. Denies any abdominal pain. He did have a BM yesterday at around 2130. States that his stool was loose and brown. Says that he has not have any episodes of flatus this morning or last night. Left rib pain is present on left. Rates the pain as a 2-3/10. Trying to limit opioid pain medication use. Reports that he is going to try to get up and walk around often today. On clear liquid diet. Denies having any other concerns. Review of Systems General: No Chills, No Night Sweats HEENT: No Head Aches, No Visual Changes Pulmonary: No Dyspnea, No Cough; Other (left lower rib pain) Cardiovascular: No: Palpitations, Lt Headedness Gastrointestinal: Diarrhea; No: Nausea, Vomiting, Abdominal Pain Genitourinary: No Dysuria, No Frequency Musculoskeletal: No: neck pain, back pain Neurological: Weakness (chronic), Numbness (chronic) Objective Exam Vital Signs Date Time Temp Pulse Resp B/P (MAP) Pulse Ox O2 Delivery O2 Flow Rate FiO2 02/01/22 22:35 Nasal Cannula 3.00 02/01/22 20:31 91 Nasal Cannula 3.00 02/01/22 20:15 38.2 99 20 115/58 (77) 91 Nasal Cannula 3.00 02/01/22 20:15 91 Nasal Cannula 3.00 02/01/22 15:40 93 18 115/70 (85) 90 Nasal Cannula 3.00 02/01/22 09:59 Room Air 02/01/22 08:11 98 18 117/71 (86) 90 Nasal Cannula 3.00 02/01/22 07:51 37.4 96 16 91/54 (66) 90 Nasal Cannula 2.00 Capillary Refill : General Appearance: No Apparent Distress, WD/WN, Chronically ill HEENT: PERRL/EOMI; No Photophobia Neck: Non Tender, Supple Respiratory: No Chest Non Tender (tender over left lower ribs); Lungs Clear, Normal Breath Sounds, No Accessory Muscle Use, No Respiratory Distress Cardiovascular: No JVD, Normal Peripheral Pulses, Tachycardia Gastrointestinal: normal bowel sounds, distended (slightly improved from yesterday), guarding (voluntary ) Extremity: No Calf Tenderness, Pedal Edema Neurologic/Psychiatric: Alert, Oriented x3, Normal Mood/Affect, Motor Weakness (Left-sided weakness upper extremity > lower extremity) Skin: Normal Color, Warm/Dry Lymphatic: No Adenopathy (cervical) Assessment/Plan Assessment/Plan Assessment/Plan Abdominal distention/constipation Ileuscolonic S/p colonoscopic decompressive 02/01 S/p same level fall with left rib fx 10-12 and grade 2-3 splenic laceration treated conservatively Prior CVA with worsening left-sided weakness Alcoholism Anxiety Acute blood loss anemia Gout COPD Abdominal XR done the last 2 days demonstrating colonic distention, will repeat this AM On clear liquid diet Continue PT and ambulation, Patient instructed to try to limit narcotic use. Emphasized to pt this morning that he needs to be ambulating often. He agreed and states that he was going to ambulate more today Continue to monitor Hgb levels ASAF IBRAHIM DO 02/02/22 1535: Subjective Subjective/Events-last exam Abdomen feels a little better, not as distended. Had loose liquid stool and passed a little gas. Increasing activity. No other new complaints. KUB showing colonic distention no free air. Denies n/v fever sweats chills shortness of breath or chest pain at this time. Objective Exam General Appearance: No Apparent Distress, WD/WN, Chronically ill HEENT: PERRL/EOMI, Normal ENT Inspection Neck: Non Tender, Supple Respiratory: No Chest Non Tender (tender over left lower ribs); Normal Breath Sounds Cardiovascular: No JVD, Tachycardia Gastrointestinal: distended (slightly improved from yesterday); No guarding (voluntary ) Extremity: No Calf Tenderness, Pedal Edema Neurologic/Psychiatric: Alert, Oriented x3, Normal Mood/Affect, Motor Weakness (Left-sided weakness upper extremity > lower extremity) Skin: Normal Color, Warm/Dry Lymphatic: No Adenopathy (cervical) Assessment/Plan Assessment/Plan Assessment/Plan Abdominal distention/constipation Ileuscolonic S/p colonoscopic decompressive 02/01 Recent same level fall with left rib fx 10-12 and grade 2-3 splenic laceration treated conservatively Prior CVA with worsening left-sided weakness Alcoholism Anxiety Acute blood loss anemia Gout COPD Abdominal XR done demonstrating colonic distention On clear liquid diet Continue PT and ambulation, Patient instructed to try to limit narcotic use. Emphasized to pt this morning that he needs to be ambulating often. He agreed and states that he was going to ambulate more today Continue to monitor Hgb levels Due to continue colonic distention will have rectal tube placed. May need decompressive colonloscopy again, if not resolve may need colectomy Supervisory-Addendum Brief Verification & Attestation Participated in pt care: history, MDM, physical Personally performed: exam, history, MDM, supervision of care Care discussed with: Medical Student Procedures: n/a Results interpretation: Verified all documentation Verification and Attestation of Medical Student E/M Service A medical student performed and documented this service in my presence. I reviewed and verified all information documented by the medical student and made modifications to such information, when appropriate. I personally performed the physical exam and medical decision making. Asaf Ibrahim, Feb 02, 2022,15:35 GABRIELA NOLAN Feb 02, 2022 07:17 ASAF IBRAHIM DO Feb 02, 2022 15:35
[2022-02-02 08:00] VITALS: BP 105/52
[2022-02-02] MEDS: RT-ALBUTEROL/IPRATROPIUM 3 ML (DUONEB) VIAL INH SCH ×3 (08:03→18:14)
--- NOTE | 2022-02-02 08:27 | Cardiology Progress Note ---
Subjective Date Seen by Provider: Feb 02, 2022 Time Seen by Provider: 08:25 Subjective/Events-last exam Patient in bed, c/o abdominal and rib pain Review of Systems General: No Chills, No Night Sweats; Fatigue, Malaise; No Appetite, No Other HEENT: No Head Aches, No Visual Changes, No Eye Pain, No Ear Pain, No Dysphasia, No Sinus Congestion, No Post Nasal Drip, No Sore Throat, No Other Pulmonary: Dyspnea; No Cough, No Pleuritic Chest Pain, No Other Cardiovascular: No: Chest Pain, Palpitations, Orthopnea, Paroxysmal Noc. Dyspnea, Edema, Lt Headedness, Other Objective-Cardiology Exam Last Set of Vital Signs Vital Signs 02/02/22 02/02/22 08:00 08:04 Temp 37.8 Pulse 105 Resp 18 B/P (MAP) 105/52 (69) Pulse Ox 90 O2 Delivery Nasal Cannula O2 Flow Rate 3.00 General: Alert, Oriented X3, Cooperative, Mild Distress HEENT: Atraumatic, PERRLA Neck: Supple, No JVD, No Thyromegaly Lungs: Clear to Auscultation, Normal Air Movement Heart: Regular Rate, Normal S1, Normal S2, No Murmurs Abdomen: Other (abdominal distention, diminished bowel sounds) Extremities: Normal Pulses, Other (periperhal edema ) Skin: No Rashes, No Breakdown, No Significant Lesion Neuro: Normal Speech, Sensation Intact Psych/Mental Status: Mental Status NL, Mood NL A/P-Cardiology Admission Diagnosis Sinus Tachycardia Splenic laceration with perisplenic hematoma Abdominal and pelvic hemoperitoneum History of CVA Assessment/Plan Sinus Tachycardia, probably secondary to hypoxemia and pain. Restarted on atenolol, continue to monitor heart rate and blood pressure Hemoglobin at 8.9 Colonic ileus Patient s/p splenic laceration with perisplenic hematoma and hemoperitoneum with left rib 10-12 fx Magnesium citrate and enema unsuccessful General surgery consulted, underwent colonic decompression yesterday managed by general surgery team Consider placing NG tube with continuous suction Splenic laceration with perisplenic hematoma and hemoperitoneum Continue with conservative management per general surgery Continue to hold Aspirin Non-displaced left 10-12th left rib fracture Conservative management PT/OT Continue with IS until patient is able to better expand chest wall Hypertension Patient is maintained at home on amlodipine 5 and atenolol 25, currently managed by medical team Hyperlipidemia Patient is maintained at home on atorvastatin 80, currently managed by medical team History of CVA , Cryptogenic stroke. Patient maintained at home on aspirin, currently holding due to splenic laceration Continue to monitor telemetry History of loop monitor implantation done for cryptogenic stroke. We will continue to monitor and interpret rhythm Alcoholism Patient currently on CIWA protocol, managed by medical team Supervisory-Addendum Brief Supervisory Addendum Participated in pt care: history, MDM, physical Personally performed: exam, history, MDM Care discussed with: AMADOR Results interpretation: Verified all documentation Notes: Patient was seen and evaluated with Deborah, examination performed, management plan was discussed, agree with the current scribed note, I made few changes to the note using Italic font DEBORAH FERRARA Feb 02, 2022 08:27 ALEXIA FAIRCHILD MD Feb 02, 2022 08:40
[2022-02-02] MEDS: FOLIC ACID 1 MG TAB PO SCH (09:15)
[2022-02-02] MEDS: PANTOPRAZOLE 40 MG (PROTONIX) TAB PO SCH (09:15)
[2022-02-02] MEDS: SENNA W/DOCUSATE (SENOKOT S) TABLET PO SCH ×2 (09:16→09:17)
[2022-02-02] MEDS: DOCUSATE SODIUM 100 MG (COLACE) CAP PO SCH ×2 (09:16→21:04)
[2022-02-02] MEDS: ATENOLOL 50 MG (TENORMIN) TAB PO SCH (09:16)
[2022-02-02] MEDS: SENNOSIDES 8.6 MG (SENOKOT) TAB PO SCH ×2 (09:17→21:04)
[2022-02-02] MEDS: polyethylene glycoL POWDER 17 GM (MIRALAX) PACK PO SCH ×2 (09:17→21:04)
[2022-02-02] MEDS: HYDROcodone/APAP 7.5 MG/325 MG (LORTAB, LORCET PLUS) TABLET PO PRN ×2 (09:30→18:23)
--- NOTE | 2022-02-02 10:01 | Physical Therapy Daily Note ---
PT Daily Note-Current Subjective Patient had just returned from x-ray, and stated that he was in a lot of pain. Patient was still compliant for therapy. Pain Numeric Pain Scale: 4 Location Body Site: Abdomen Mental Status Patient Orientation: Person, Place, Time, Situation Attachments: Oxygen Transfers SCALE: Activities may be completed with or without assistive devices. 4-Nccckcttjf-gujfvob completes the activity by him/herself with no assistance from a helper. 5-Set-up or Clean-up Assistance-helper sets up or cleans up; patient completes activity. [place] assists only prior to or following the activity. 4-Supervision or Touching Assistance-helper provides verbal cues and/or touching/steadying and/or contact guard assistance as patient completes activity. Assistance may be provided throughout the activity or intermittently. 3-Partial/Moderate Assistance-helper does LESS THAN HALF the effort. [place] lifts, holds or supports trunk or limbs, but provides less than half the effort. 2-Substantial/Maximal Assistance-helper does MORE THAN HALF the effort. [place] lifts or holds trunk or limbs and provides more than half the effort. 0-Wyplzkzcd-vmffut does ALL the effort. Patient does none of the effort to complete the activity. Or, the assistance of 2 or more helpers is required for the patient to complete the activity. If activity was not attempted, code reason: 7-Patient Refused. 9-Not Applicable-not attempted and the patient did not perform the activity before the current illness, exacerbation or injury. 10-Not Attempted due to Environmental Limitations-(lack of equipment, weather restraints, etc.). 88-Not Attempted due to Medical Conditions or Safety Concerns. Sit to Stand (QC): 4 Toilet Transfer (QC): 4 Weight Bearing Full Weight Bearing Full Weight Bearing Gait Training Does the Patient Walk?: Yes Distance: 60'x4 Walk 10 feet (QC): 5 Walk 50 ft with 2 Turns(QC): 5 Walk 150 ft (QC): 5 Gait Assistive Device: FWW Wheelchair Training Does the Pt Use a Wheelchair?: No Type of Wheelchair: N/A Treatments Ambulation Assessment Current Status: Fair Progress Patient reports that he is in a little less pain today, but still has trouble breathing due to pain. Patients O2 sats were checked mid ambulation and dropped to 85%, and recovered to 90% with rest and deep breathing techniques. Patient was motivated but only able to tolerate walking a total of 240' with multiple rest breaks. Patient was left in restroom after treatment and seemed to have a bowel movement. Patient was instructed to pull the help line when finished. PT Lamination Machine Operator Goals Lamination Machine Operator Goals PT Custodial Goals Time Frame: Feb 25, 2022 Roll Left & Right (QC): 6 Sit to Lying (QC): 6 Lying-Sitting on Side/Bed(QC): 6 Sit to Stand (QC): 6 Chair/Tcd-hx-Vavbr Xfer(QC): 6 Toilet Transfer (QC): 6 Car Transfer (QC): 6 Does the Patient Walk: Yes Walk 10 feet (QC): 6 Walk 50ft with 2 Turns (QC): 6 Walk 150 ft (QC): 6 Walking 10ft on Uneven Surface: 6 1 Step (curb) (QC): 6 4 Steps (QC): 6 12 Steps (QC): 6 Picking up an Object (QC): 6 Does the Pt use WC or Scooter?: No Wheel 50 feet with 2 turns (QC: 9 Type: N/A Wheel 150 feet: 9 Type: N/A PT Plan Problem List Problem List: Activity Tolerance, Functional Strength, Safety, Balance, Gait, Transfer, Bed Mobility Treatment/Plan Treatment Plan: Continue Plan of Care Treatment Plan: Bed Mobility, Concurrent Therapy, Education, Functional Activity Francesca, Functional Strength, Group Therapy, Gait, Safety, Therapeutic Exercise, Transfers Treatment Duration: Feb 25, 2022 Frequency: At least 5 of 7 days/Wk (IRF) Estimated Hrs Per Day: 1.5 hours per day Patient and/or Family Agrees t: Yes Safety Risks/Education Patient Education: Gait Training, Transfer Techniques, Correct Positioning, Safety Issues Teaching Recipient: Patient Teaching Methods: Demonstration, Discussion Response to Teaching: Reinforcement Needed Time/GCodes Time In: 0920 Time Out: 1000 Total Billed Treatment Time: 40 Total Billed Treatment 1 visit GT 40min KRISTINE HAWK PT Feb 02, 2022 10:01
--- NOTE | 2022-02-02 11:21 | Diagnostic Imaging Report ---
HISTORY: Constipation, abdominal distention. TECHNIQUE: Frontal views of the abdomen. COMPARISON: 02/01/2022. FINDINGS: There is diffuse colonic distention, unchanged since the prior exam. This includes fluid levels on the upright view. Gas does appear to extend to the distal sigmoid colon. No significant small bowel distention is appreciated. No large collection of free air is seen. IMPRESSION: 1. Unchanged diffuse colonic distention with air-fluid levels. Dictated by: Dictated on workstation # [id number]
--- NOTE | 2022-02-02 11:31 | Occupational Ther Daily Note ---
OT Current Status-Daily Note Subjective Pt alert, in bathroom. Pt agrees to therapy. No c/o pain only fatigue and SOA. Mental Status/Objective Patient Orientation: Person, Place, Time, Situation Attachments: IV (PICC), Oxygen (3L) ADL-Treatment Pt agrees to shower. Pt able to manipulate clothing and cleanse self during toileting with SBA for safety. Pt became SOA and required PLB then sitting d own. Pt ambulated back to recliner for rest break before completing shower. Pt ambulated to bathroom and transferred to shower with SBA using FWW. While seated on shower bench, pt able to complete all shower using LH sponge for lower body and hand held shower to rinse. After set up, pt able to don/doff shirt by self. Assist to thread pants over feet then SBA to hike over hips. Pt will need education on using lower body dressing equipment to thread clothing over feet. Assist to thread socks for donning/doffing due to increased SOA, distended abdomen and pain at ribs when bending forward. Pt educated on using sock aide after sock already applied. Pt requires assist at this time due to decreased focus from fatigue and SOA. Pt will need continued cues for efficiency when using AE though when pain and distended abdomen has decreased significantly pt will not need AE. Sitting at sink, pt able to complete oral care and grooming independently. After therapy, pt sitting in recliner with call light/phone in reach. All needs met in room. Therapy Code Descriptions/Definitions Functional [place] Measure: 0=Not Assessed/NA 4=Minimal Assistance 1=Total Assistance 5=Supervision or Setup 2=Maximal Assistance 6=Modified [place] 3=Moderate Assistance 7=Complete IndependenceSCALE: Activities may be completed with or without assistive devices. 2-Oaworsetys-umysbjp completes the activity by him/herself with no assistance from a helper. 5-Set-up or Clean-up Assistance-helper sets up or cleans up; patient completes activity. [place] assists only prior to or following the activity. 4-Supervision or Touching Assistance-helper provides verbal cues and/or touching /steadying and/or contact guard assistance as patient completes activity. Assistance may be provided throughout the activity or intermittently. 3-Partial/Moderate Assistance-helper does LESS THAN HALF the effort. [place] lifts, holds or supports trunk or limbs, but provides less than half the effort. 2-Substantial/Maximal Assistance-helper does MORE THAN HALF the effort. [place] lifts or holds trunk or limbs and provides more than half the effort. 3-Iczmbbeov-qpdflv does ALL the effort. Patient does none of the effort to complete the activity. Or, the assistance of 2 or more helpers is required for the patient to complete the activity. If activity was not attempted, code reason: 7-Patient Refused. 9-Not Applicable-not attempted and the patient did not perform the activity before the current illness, exacerbation or injury. 10-Not Attempted due to Environmental Limitations-(lack of equipment, weather restraints, etc.). 88-Not Attempted due to Medical Conditions or Safety Concerns. Oral Hygiene (QC): 6 Shower/Bathe Self (QC): 4 Upper Body Dressing (QC): 5 Lower Body Dressing (QC): 3 On/Off Footwear: 2 Toileting Hygiene (QC): 4 Toilet Transfer (QC): 4 OT Short Term Goals Short Term Goals Time Frame: Feb 16, 2022 Toileting hygiene: 4 Shower/bathe self: 4 Lower body dressin Putting on/taking off footwear: 4 OT Nursing Home Goals Nursing Home Goals Time Frame: Feb 26, 2022 Eating (QC): 6 Oral Hygiene (QC): 6 Toileting Hygiene (QC): 6 Shower/Bathe Self (QC): 6 Upper Body Dressing (QC): 6 Lower Body Dressing (QC): 6 On/Off Footwear (QC): 6 Additional Goals: 1-Demonstrate ADL Tasks, 2-Verbalize Understanding, 3- ImproveStrength/Francesca 1=Demonstrate adherence to instructed precautions during ADL tasks. 2=Patient will verbalize/demonstrate understanding of assistive d evices/modifications for ADL. 3=Patient will improve strength/tolerance for activity to enable patient to perform ADL's. OT Education/Plan Problem List/Assessment Assessment: Decreased Activ Tolerance, Decreased UE Strength, Impaired Self- Care Skills, Restricted Funct UE ROM Discharge Recommendations Plan/Recommendations: Continue POC Treatment Plan/Plan of Care Patient would benefit from OT for education, treatment and training to promote independence in ADL's, mobility, safety and/or upper extremity function for ADL's. Plan of Care: ADL Retraining, Functional Mobility, Group Exercise/Act as Ind, UE Funct Exercise/Act, UE Neuromus Re-Ed/Coord Treatment Duration: Feb 26, 2022 Frequency: At least 5 of 7 days/Wk (IRF) Estimated Hrs Per Day: 1.5 hours per day Rehab Potential: Fair Time/GCodes Start Time: 10:00 Stop Time: 11:30 Total Time Billed (hr/min): 90 Billed Treatment Time 1 visit-ADL 6 (90 min) SUNIL DAMON Feb 02, 2022 11:31
--- NOTE | 2022-02-02 13:48 | Physical Therapy Daily Note ---
PT Daily Note-Current Subjective Patient was in chair upon entry and appeared less bloated than before. Patient states that he has not really had any pain for the last 3 hours since he had a bowel movement, and able to pass a lot of air. Mental Status Patient Orientation: Person, Place, Time, Situation Attachments: Oxygen Transfers SCALE: Activities may be completed with or without assistive devices. 8-Iotstuumsd-umutvmx completes the activity by him/herself with no assistance from a helper. 5-Set-up or Clean-up Assistance-helper sets up or cleans up; patient completes activity. [place] assists only prior to or following the activity. 4-Supervision or Touching Assistance-helper provides verbal cues and/or touching/steadying and/or contact guard assistance as patient completes activity. Assistance may be provided throughout the activity or intermittently. 3-Partial/Moderate Assistance-helper does LESS THAN HALF the effort. [place] lifts, holds or supports trunk or limbs, but provides less than half the effort. 2-Substantial/Maximal Assistance-helper does MORE THAN HALF the effort. [place] lifts or holds trunk or limbs and provides more than half the effort. 1-Huvchgkfc-kqatuw does ALL the effort. Patient does none of the effort to complete the activity. Or, the assistance of 2 or more helpers is required for the patient to complete the activity. If activity was not attempted, code reason: 7-Patient Refused. 9-Not Applicable-not attempted and the patient did not perform the activity before the current illness, exacerbation or injury. 10-Not Attempted due to Environmental Limitations-(lack of equipment, weather restraints, etc.). 88-Not Attempted due to Medical Conditions or Safety Concerns. Sit to Stand (QC): 4 Weight Bearing Full Weight Bearing Full Weight Bearing Gait Training Does the Patient Walk?: Yes Distance: 4x60' Walk 10 feet (QC): 4 Walk 50 ft with 2 Turns(QC): 4 Gait Assistive Device: FWW Wheelchair Training Does the Pt Use a Wheelchair?: No Type of Wheelchair: N/A Exercises NuStep Minutes: 12 NuStep Workload: 4 Assessment Current Status: Fair Progress Patient was better able to tolerate ambulation and appeared less fatigued and SOB, althought still required two recovery periods (one to the rehab gym, and one back). Patient was also able to tolerate minimal pain doing the NuStep. PT [facility] Goals Level Vial Inside Grinder Goals PT [facility] Goals Time Frame: Feb 25, 2022 Roll Left & Right (QC): 6 Sit to Lying (QC): 6 Lying-Sitting on Side/Bed(QC): 6 Sit to Stand (QC): 6 Chair/Uuy-yt-Tnazz Xfer(QC): 6 Toilet Transfer (QC): 6 Car Transfer (QC): 6 Does the Patient Walk: Yes Walk 10 feet (QC): 6 Walk 50ft with 2 Turns (QC): 6 Walk 150 ft (QC): 6 Walking 10ft on Uneven Surface: 6 1 Step (curb) (QC): 6 4 Steps (QC): 6 12 Steps (QC): 6 Picking up an Object (QC): 6 Does the Pt use WC or Scooter?: No Wheel 50 feet with 2 turns (QC: 9 Type: N/A Wheel 150 feet: 9 Type: N/A PT Plan Problem List Problem List: Activity Tolerance, Functional Strength, Safety, Balance, Gait, Transfer Treatment/Plan Treatment Plan: Continue Plan of Care Treatment Plan: Bed Mobility, Concurrent Therapy, Education, Functional Activity Francesca, Functional Strength, Group Therapy, Gait, Safety, Therapeutic Exercise, Transfers Treatment Duration: Feb 25, 2022 Frequency: At least 5 of 7 days/Wk (IRF) Estimated Hrs Per Day: 1.5 hours per day Patient and/or Family Agrees t: Yes Safety Risks/Education Patient Education: Gait Training, Transfer Techniques, Correct Positioning, Safety Issues Teaching Methods: Discussion Response to Teaching: Verbalize Understanding Time/GCodes Time In: 1300 Time Out: 1350 Total Billed Treatment Time: 50 Total Billed Treatment 1 visit FA 18'min EX 12min GT 20' KRISTINE HAWK PT Feb 02, 2022 13:48
[2022-02-02 21:00] VITALS: BP 99/64
[2022-02-03] MEDS: HYDROcodone/APAP 7.5 MG/325 MG (LORTAB, LORCET PLUS) TABLET PO PRN ×5 (00:40→21:46)
[2022-02-03] MEDS: METOCLOPRAMIDE INJ 10 MG/2 ML (REGLAN) IVP SCH ×6 (00:40→17:24)
--- NOTE | 2022-02-03 06:07 | PM&R Progress Note ---
Subjective HPI/CC On Admission Date Seen by Provider: Feb 03, 2022 Time Seen by Provider: 09:00 Subjective/Events-last exam 02/03/2022: Patient still having abdominal issues Colonic decompression again today Unable to work with therapy as much because the abdominal distention Shortness of breath from diaphragm elevation 02/02/22: Patient walking pretty well Colonoscopy decompression has helped tremendously and had a large BM yesterday evening Pain is still an issue which will be until ribs heal Alcoholism has placed him at major risks the issues he is currently having previously had 02/01/22: Pt may have endoscopy to decompress colon there is confusion between Dr Solis and call coverage Dr Ibrahim whether it is required of not Pt has excuses for everything and seems to be very detrimental in his motivation Had a long talk with the at the bedside that no indication that end of life is near but he could will himself to I recommended to grind it out and continue with therapy and work everyday to get improved and get home, out of the hospital and to quit having a poor attitude on approach Labs are within normal limits 01/31/2022: Patient having more abdominal distention Magnesium citrate and enema did not really result in much results Supportive care will continue Abdominal x-ray ordered showing colonic distention Dr. Ibrahim consulted may require endoscope for decompression Minimizing pain medications priority 01/30/22: Patient handling things well Multiple complaints about pain issues Left rib fractures will take time to heal Checked meds and labs 01/29/2022: Pt is doing pretty well Hemoglobin is 7.7 PICC line will be provided since he has poor venous access IV iron initiated Heart rate is 118 Small bowel movement yesterday, gave him all the laxatives Review of Systems General: Fatigue, Malaise Neurological: Weakness Objective Exam Vital Signs Vital Signs Date Time Temp Pulse Resp B/P (MAP) Pulse Ox O2 Delivery O2 Flow Rate FiO2 02/03/22 20:38 94 Nasal Cannula 4.00 02/03/22 19:37 37.3 100 20 99/62 (74) Capillary Refill : General Appearance: WD/WN, Anxious, Chronically ill, Mild Distress HEENT: PERRL/EOMI, Normal ENT Inspection, Pharynx Normal Neck: Full Range of Motion, Normal Inspection, Non Tender, Supple, Carotid Bruit Respiratory: Chest Non Tender, Lungs Clear, Normal Breath Sounds, No Accessory Muscle Use, No Respiratory Distress Cardiovascular: No Edema, No Gallop, No JVD, No Murmur, Normal Peripheral Pulses, Tachycardia Gastrointestinal: Normal Bowel Sounds, No Organomegaly, No Pulsatile Mass, Non Tender, Soft Rectal: Deferred Back: Normal Inspection, No CVA Tenderness, No Vertebral Tenderness Extremity: Normal Capillary Refill, Normal Inspection, Normal Range of Motion, Non Tender, No Calf Tenderness, No Pedal Edema Neurologic/Psychiatric: Alert, Oriented x3, Normal Mood/Affect, morning caregiver II-XII Norm as Tested, Motor Weakness (Left-sided weakness upper extremity > lower extremity) Skin: Normal Color, Warm/Dry Lymphatic: No Adenopathy Results/Procedures Lab Patient resulted labs reviewed. FIM Transfers Therapy Code Descriptions/Definitions Functional [place] Measure: 0=Not Assessed/NA 4=Minimal Assistance 1=Total Assistance 5=Supervision or Setup 2=Maximal Assistance 6=Modified [place] 3=Moderate Assistance 7=Complete IndependenceSCALE: Activities may be completed with or without assistive devices. 3-Xhhypqyopi-znyyqqy completes the activity by him/herself with no assistance from a helper. 5-Set-up or Clean-up Assistance-helper sets up or cleans up; patient completes activity. [place] assists only prior to or following the activity. 4-Supervision or Touching Assistance-helper provides verbal cues and/or touching/steadying and/or contact guard assistance as patient completes activity. Assistance may be provided throughout the activity or intermittently. 3-Partial/Moderate Assistance-helper does LESS THAN HALF the effort. [place] lifts, holds or supports trunk or limbs, but provides less than half the effort. 2-Substantial/Maximal Assistance-helper does MORE THAN HALF the effort. [place] l ifts or holds trunk or limbs and provides more than half the effort. 0-Ldjiootty-ljtjhv does ALL the effort. Patient does none of the effort to complete the activity. Or, the assistance of 2 or more helpers is required for the patient to complete the activity. If activity was not attempted, code reason: 7-Patient Refused. 9-Not Applicable-not attempted and the patient did not perform the activity before the current illness, exacerbation or injury. 10-Not Attempted due to Environmental Limitations-(lack of equipment, weather restraints, etc.). 88-Not Attempted due to Medical Conditions or Safety Concerns. Roll Left to Right (QC): 3 Sit to Lying (QC): 3 Sit to Stand (QC): 4 Chair/Lbd-bz-Mscdr Xfer(QC): 4 Car Transfer (QC): 4 (CGA) Gait Training Does the Patient Walk?: Yes Distance: 4x60' Walk 10 feet (QC): 4 Walk 50 ft with 2 Turns(QC): 4 Walk 150 ft (QC): 5 Walking 10ft/uneven surface-QC: 4 Gait Persons Needed: 1 Gait Assistive Device: FWW Wheelchair Training Does the Pt Use a Wheelchair?: No Wheel 50 ft with 2 turns (QC): 9 Wheel 150 ft (QC): 9 Type of Wheelchair: N/A Stair Training 1 Step (curb) (QC): 4 4 Steps (QC): 4 12 Steps (QC): 88 Balance Picking up an Object (QC): 88 (Due to pt diminished balance, unsafe to perform at this time.) ADL-Treatment Eating (QC): 5 Oral Hygiene (QC): 6 Bathing Location: L Arm, R Arm, L Upper Leg, R Upper Leg, L Lower Leg (including foot), R Lower Leg (including foot), Chest, Abdomen, Buttocks, Pe rineal Area Shower/Bathe Self (QC): 4 Upper Body Dressing (QC): 5 Lower Body Dressing (QC): 3 On/Off Footwear (QC): 2 Toileting Hygiene (QC): 4 Toilet Transfer (QC): 4 Assessment/Plan Assessment and Plan Assess & Plan/Chief Complaint Assessment: Debility following fall with left-sided rib fractures and splenic laceration Prior CVA with worsening left-sided weakness Multiple falls at home recently Alcoholism Anxiety Tachycardia Acute blood loss anemia Gout COPD Colonic distention with obstipation consulted Dr. Ibrahim 01/31/2022 status post colonic decompression 02/01/2022 with good results and resolution of constipation but then recurred requiring another decompression on 02/03/2022 Plan: Aggressive rehab Supportive care Monitor heart rate 01/29/2022: Supportive care Monitor hemoglobin Iron infusions 01/30/22: Pain management Monitor closely 01/31/2022: Appreciate Dr. Ibrahim Clear liquids 02/01/22: Colonic distention management 02/02/2022: Appreciate Dr. Ibrahim Supportive care 02/03/2022: Colonic decompression acute Checked meds and labs (1) Left-sided weakness Status: Acute (2) Spleen laceration Status: Acute (3) Hypertension Status: Chronic (4) Neuropathy Status: Chronic (5) Anxiety Status: Chronic (6) Gout (7) COPD (chronic obstructive pulmonary disease) (8) Alcoholism Status: Chronic HARDY CAMPBELL DO Feb 03, 2022 06:07
[2022-02-03] MEDS: CATHETER FLUSH 10 ML SYR IVP SCH ×3 (06:37→20:10)
[2022-02-03] MEDS: MAGNESIUM OXIDE (MAG-OX)400 MG TAB PO SCH (06:37)
[2022-02-03] MEDS: MULTIVIT W/MINERALS TAB (THERAGRAN M) PO SCH (06:37)
[2022-02-03] MEDS: KCL 10 MEQ TAB (MICRO K) PO SCH (06:37)
[2022-02-03] MEDS: RT-ALBUTEROL/IPRATROPIUM 3 ML (DUONEB) VIAL INH SCH ×2 (07:03→20:37)
[2022-02-03 07:39] VITALS: BP 122/58
--- NOTE | 2022-02-03 07:45 | Progress Note - Surgery ---
SHAMIKA RIOS A MED STUDENT 02/03/22 0745: Subjective Date Seen by a Provider: Feb 03, 2022 Time Seen by a Provider: 07:00 Subjective/Events-last exam Pt up in chair eating breakfast this morning. Pt reports he had BM yesterday morning around 0930 and then again with rectal tube placement around 1700. Pt reports he did pass some gas with the rectal tube as well. Pt reports he is tolerating his diet well with no N/V. Pt complains of left sided rib pain, but denies abdominal pain. He reports his abdomen is still distended, but somewhat improved. Pt denies fever, chills, CP, palpitations, SOA and cough. Pt has been up with PT and OT and reports SOA on exertion, but reports he will continue to ambulate today. He has been spacing his pain medication out as he understand this is a contributing factor to his condition. Review of Systems General: No Chills, No Fatigue HEENT: No Head Aches, No Visual Changes Pulmonary: No Dyspnea, No Cough Cardiovascular: No: Chest Pain, Palpitations Gastrointestinal: No: Nausea, Vomiting, Abdominal Pain Musculoskeletal: other (left rib pain) Neurological: Weakness; No: Numbness Objective Exam Vital Signs Date Time Temp Pulse Resp B/P (MAP) Pulse Ox O2 Delivery O2 Flow Rate FiO2 02/03/22 07:03 90 Nasal Cannula 3.00 02/02/22 21:00 37.0 95 20 99/64 (76) 95 Nasal Cannula 2.50 02/02/22 20:45 Nasal Cannula 3.00 02/02/22 18:15 90 Nasal Cannula 3.00 02/02/22 09:30 Nasal Cannula 2.00 02/02/22 08:24 36.7 89 20 95 Nasal Cannula 2.50 02/02/22 08:04 90 Nasal Cannula 3.00 02/02/22 08:00 37.8 105 18 105/52 (69) 90 Nasal Cannula 3.00 Capillary Refill : General Appearance: WD/WN, Chronically ill, Obese HEENT: PERRL/EOMI, Normal ENT Inspection, Pharynx Normal Neck: Full Range of Motion, Normal Inspection, Non Tender, Supple Respiratory: Chest Non Tender, Lungs Clear, Normal Breath Sounds, No Accessory Muscle Use, No Respiratory Distress Cardiovascular: No Edema, No Gallop, No JVD, Tachycardia Gastrointestinal: non tender, abnormal bowel sounds (hypoactive bowel sounds), distended Extremity: Normal Range of Motion, Non Tender, No Calf Tenderness, Pedal Edema (2+ pitting edema bilaterally) Neurologic/Psychiatric: Alert, Oriented x3, Normal Mood/Affect, Motor Weakness (Left-sided weakness upper extremity > lower extremity) Skin: Normal Color, Warm/Dry Lymphatic: No Adenopathy Assessment/Plan Assessment/Plan Assessment/Plan Abdominal distention/constipation Ileuscolonic S/p colonoscopic decompressive 02/01 Recent same level fall with left rib fx 10-12 and grade 2-3 splenic laceration treated conservatively Prior CVA with worsening left-sided weakness Alcoholism Anxiety Acute blood loss anemia Gout COPD Abdominal XR done demonstrating colonic distention On clear liquid diet Continue PT and ambulation, Patient instructed to try to limit narcotic use. Emphasized to pt that continued ambulation and PT/OT will be of benefit to him Continue to monitor Hgb levels, repeat labs today Rectal tube placed with passage of gas and soft stool. Retry today. May need decompressive colonloscopy again, if not resolve may need colectomy ASAF IBRAHIM DO 02/03/22 1416: Subjective Subjective/Events-last exam Abdomen still distended maybe a little better he thinks. Uncomfortable pressure from distention. Passed flatus maybe once. On clear liquids. Denies n/v fever sweats chills shortness of breath or chest pain. Pain in left upper quadrant okay. Trying to avoid narcotics for pain control. Trying to increase activity. Objective Exam General Appearance: Chronically ill, Obese HEENT: PERRL/EOMI, Normal ENT Inspection Neck: Normal Inspection, Non Tender, Supple Respiratory: Chest Non Tender, No Accessory Muscle Use, No Respiratory Distress Cardiovascular: No JVD, Tachycardia Gastrointestinal: distended, tenderness (slight left upper quadrant), other Extremity: Non Tender, Pedal Edema (2+ pitting edema bilaterally) Neurologic/Psychiatric: Alert, Oriented x3, Normal Mood/Affect, Motor Weakness (Left-sided weakness upper extremity > lower extremity) Skin: Normal Color, Warm/Dry Lymphatic: No Adenopathy Assessment/Plan Assessment/Plan Assessment/Plan Abdominal distention/constipation Ileuscolonic S/p colonoscopic decompressive 02/01 Recent same level fall with left rib fx 10-12 and grade 2-3 splenic laceration treated conservatively Prior CVA with worsening left-sided weakness Alcoholism Anxiety Acute blood loss anemia Gout COPD Abdominal XR colonic distention On clear liquid diet make npo Continue PT and ambulation, Patient instructed to try to limit narcotic use. Emphasized to pt that continued ambulation and PT/OT will be of benefit to him Continue to monitor Hgb levels, repeat labs today Rectal tube placed with passage of gas and soft stool. Retry today. Since abdomen still significantly distended will plan decompressive colonloscopy again and place rectal tube, if not resolve may need colectomy Supervisory-Addendum Brief Verification & Attestation Participated in pt care: history, MDM, physical Personally performed: exam, history, MDM, supervision of care Care discussed with: Medical Student Procedures: n/a Results interpretation: Verified all documentation Verification and Attestation of Medical Student E/M Service A medical student performed and documented this service in my presence. I reviewed and verified all information documented by the medical student and made modifications to such information, when appropriate. I personally performed the physical exam and medical decision making. Asaf Ibrahim, Feb 03, 2022,11:16 SHAMIKA RIOS MED STUDENT Feb 03, 2022 07:45 ASAF IBRAHIM DO Feb 03, 2022 14:16
[2022-02-03] MEDS: FOLIC ACID 1 MG TAB PO SCH (07:51)
[2022-02-03] MEDS: SENNA W/DOCUSATE (SENOKOT S) TABLET PO SCH ×2 (07:51→20:09)
[2022-02-03] MEDS: IRON SUCROSE 200 MG/10 ML (VENOFER) VIAL IV SCH (07:51)
[2022-02-03] MEDS: polyethylene glycoL POWDER 17 GM (MIRALAX) PACK PO SCH ×2 (07:51→20:09)
[2022-02-03] MEDS: ATENOLOL 50 MG (TENORMIN) TAB PO SCH (07:52)
[2022-02-03] MEDS: PANTOPRAZOLE 40 MG (PROTONIX) TAB PO SCH (07:52)
[2022-02-03] MEDS: SENNOSIDES 8.6 MG (SENOKOT) TAB PO SCH ×2 (07:52→20:09)
[2022-02-03] MEDS: DOCUSATE SODIUM 100 MG (COLACE) CAP PO SCH ×2 (07:53→20:09)
[2022-02-03] MEDS: LORazepam 0.5 MG (ATIVAN) TABLET PO PRN (08:01)
--- NOTE | 2022-02-03 08:57 | Cardiology Progress Note ---
Subjective Date Seen by Provider: Feb 03, 2022 Time Seen by Provider: 08:56 Subjective/Events-last exam Patient is resting in his chair comfortably. Still having abdominal distention. Had a rectal tube placed yesterday for ~3 hours. Patient states otherwise he feels okay. Patient was seen at bedside, laying down comfortably, still having abdominal distention and discomfort, shortness of breath, fatigue Review of Systems HEENT: No Head Aches, No Visual Changes Pulmonary: No Cough Cardiovascular: No: Chest Pain, Palpitations Gastrointestinal: Abdominal Pain, Constipation, Other (abdominal distention) Objective-Cardiology Exam Last Set of Vital Signs Vital Signs 02/03/22 02/03/22 07:39 09:00 Temp 37.4 Pulse 101 Resp 20 B/P (MAP) 122/58 (79) Pulse Ox 90 O2 Delivery Nasal Cannula O2 Flow Rate 3.00 General: Alert, Oriented X3, Cooperative, Mild Distress HEENT: Atraumatic, PERRLA Neck: Supple, No JVD Lungs: Clear to Auscultation, Normal Air Movement Heart: Regular Rate, Normal S1, Normal S2, No Murmurs Abdomen: Other (abdominal distention, diminished bowel sounds) Extremities: Normal Pulses, Other (periperhal edema ) Skin: No Rashes, No Breakdown, No Significant Lesion Neuro: Normal Speech, Sensation Intact Psych/Mental Status: Mental Status NL, Mood NL A/P-Cardiology Admission Diagnosis Sinus Tachycardia Splenic laceration with perisplenic hematoma Abdominal and pelvic hemoperitoneum History of CVA Assessment/Plan Sinus Tachycardia, probably secondary to hypoxemia and abdominal pain. Restarted on atenolol, continue to monitor heart rate and blood pressure Hemoglobin at 8.9 at last check Colonic ileus Patient s/p splenic laceration with perisplenic hematoma and hemoperitoneum with left rib 10-12 fx Magnesium citrate and enema unsuccessful General surgery consulted, underwent colonic decompression yesterday with rectal tube placement Discussed management plan with Dr. Ibrahim, continue to monitor after placement of rectal tube. managed by general surgery team Splenic laceration with perisplenic hematoma and hemoperitoneum Continue with conservative management per general surgery Continue to hold Aspirin Non-displaced left 10-12th left rib fracture Conservative management PT/OT Continue with IS until patient is able to better expand chest wall Hypertension Patient is maintained at home on amlodipine 5 and atenolol 25, currently managed by medical team Hyperlipidemia Patient is maintained at home on atorvastatin 80, currently managed by medical team History of CVA , Cryptogenic stroke. Patient maintained at home on aspirin, currently holding due to splenic lacer ation Continue to monitor telemetry History of loop monitor implantation done for cryptogenic stroke. We will continue to monitor and interpret rhythm Hx of Alcoholism managed by medical team Supervisory-Addendum Brief Verification & Attestation Participated in pt care: history, MDM, physical Personally performed: exam, history, MDM, supervision of care Care discussed with: Medical Student Procedures: n/a Results interpretation: Verified all documentation Verification and Attestation of Medical Student E/M Service A medical student performed and documented this service in my presence. I reviewed and verified all information documented by the medical student and made modifications to such information, when appropriate. I personally performed the physical exam and medical decision making. Patient was seen at bedside, laying down comfortably, still having abdominal distention, discomfort. Had a rectal tube. Slightly better. Discussed the management along with Dr. Ibrahim His best option will be with rectal tube at this time. Continue to monitor heart rate and blood pressure. No changes from cardiology standpoint. Alexia Walker Feb 03, 2022,14:11 STELLA DELGADO Feb 03, 2022 08:57 ALEXIA WALKER MD Feb 03, 2022 14:11
--- NOTE | 2022-02-03 10:46 | Occupational Ther Daily Note ---
OT Current Status-Daily Note Subjective Pt alert, sitting in recliner when OT entered. Pt agreed to therapy. No c/o pain reported. Mental Status/Objective Patient Orientation: Person, Place, Time, Situation Attachments: IV, Oxygen ADL-Treatment Pt declined shower at this date, stated he took one yesterday. He agreed to complete sponge bath at recliner. After set up of materials required, pt able to cleanse UB, chest, abdomen, upper/lower LB in sitting. Pt cleansed veronica and buttocks in standing with CGA. Pt threaded BLE through LB dressing using dairy feed sales consultant. Pt demonstrated good technique with AE. Pt sit-stand from recliner to hike LB dressing. Pt required assist to don socks on BLE. Pt requested to use bathroom. Pt ambulated to bathroom using FWW with CGA. Pt transferred to toilet with CGA. Pt required increased time on toilet due to pt trying to make bowel movement. Pt unable to do so, and stating that he finds it hard to go when he can footsteps outside his room. Pt sit-stand from toilet to FWW with CGA. Pt ambulated to sink and sat at w/c. Pt completed oral hygiene and basic grooming task of combing hair independently while sitting in w/c. Pt SPT from w/c to recliner. Therapy Code Descriptions/Definitions Functional [place] Measure: 0=Not Assessed/NA 4=Minimal Assistance 1=Total Assistance 5=Supervision or Setup 2=Maximal Assistance 6=Modified [place] 3=Moderate Assistance 7=Complete IndependenceSCALE: Activities may be completed with or without assistive devices. 8-Jqwqjxnfty-ladhasx completes the activity by him/herself with no assistance from a helper. 5-Set-up or Clean-up Assistance-helper sets up or cleans up; patient completes activity. [place] assists only prior to or following the activity. 4-Supervision or Touching Assistance-helper provides verbal cues and/or touching/steadying and/or contact guard assistance as patient completes activity. Assistance may be provided throughout the activity or intermittently. 3-Partial/Moderate Assistance-helper does LESS THAN HALF the effort. [place] lifts, holds or supports trunk or limbs, but provides less than half the effort. 2-Substantial/Maximal Assistance-helper does MORE THAN HALF the effort. [place] lifts or holds trunk or limbs and provides more than half the effort. 8-Pcphxwpbi-qqgmej does ALL the effort. Patient does none of the effort to complete the activity. Or, the assistance of 2 or more helpers is required for the patient to complete the activity. If activity was not attempted, code reason: 7-Patient Refused. 9-Not Applicable-not attempted and the patient did not perform the activity before the current illness, exacerbation or injury. 10-Not Attempted due to Environmental Limitations-(lack of equipment, weather restraints, etc.). 88-Not Attempted due to Medical Conditions or Safety Concerns. Oral Hygiene (QC): 6 Shower/Bathe Self (QC): 4 (CGA when standing to cleanse buttocks and veronica) Lower Body Dressing (QC): 4 On/Off Footwear: 3 Toilet Transfer (QC): 4 Other Treatment Skilled instruction required of BUE exercises for correct technique. Pt participated in x2 sets of 10 reps of 3lb RUE and LUE against gravity exercises for increased BUE strength for improved independence in ADLs. Pt completed BUE exercises of elbow flexion/extension, chest press, internal/external rotation, and wrist flexion/extension. Pt demonstrated good technique and required resting break due to decreased activity tolerance. After session, pt sitting in recliner. All needs met and call light in reach. Education OT Patient Education: Energy conservation, Exercise program, Home exercise program, Modified ADL techniques, Purpose of tx/functional activities, Safety issues, Use of adapted equipment Teaching Recipient: Patient Teaching Methods: Demonstration, Discussion Response to Teaching: Verbalize Understanding, Return Demonstration OT Short Term Goals Short Term Goals Time Frame: Feb 16, 2022 Toileting hygiene: 4 Shower/bathe self: 4 Lower body dressin Putting on/taking off footwear: 4 OT Senior Care Goals Psychiatric Registered Nurse Goals Time Frame: Feb 26, 2022 Eating (QC): 6 Oral Hygiene (QC): 6 Toileting Hygiene (QC): 6 Shower/Bathe Self (QC): 6 Upper Body Dressing (QC): 6 Lower Body Dressing (QC): 6 On/Off Footwear (QC): 6 Additional Goals: 1-Demonstrate ADL Tasks, 2-Verbalize Understanding, 3- ImproveStrength/Francesca 1=Demonstrate adherence to instructed precautions during ADL tasks. 2=Patient will verbalize/demonstrate understanding of assistive devices/modifications for ADL. 3=Patient will improve strength/tolerance for activity to enable patient to perform ADL's. OT Education/Plan Problem List/Assessment Assessment: No Skilled OT Needs ID'd, Decreased Activ Tolerance, Decreased UE Strength, Impaired I ADL's, Impaired Self-Care Skills Discharge Recommendations Plan/Recommendations: Continue POC Treatment Plan/Plan of Care Patient would benefit from OT for education, treatment and training to promote independence in ADL's, mobility, safety and/or upper extremity function for ADL's. Plan of Care: ADL Retraining, Functional Mobility, Group Exercise/Act as Ind, UE Funct Exercise/Act, UE Neuromus Re-Ed/Coord Treatment Duration: Feb 26, 2022 Frequency: At least 5 of 7 days/Wk (IRF) Estimated Hrs Per Day: 1.5 hours per day Rehab Potential: Fair Time/GCodes Start Time: 09:00 Stop Time: 10:30 Total Time Billed (hr/min): 90 Billed Treatment Time 1 visit- ADL 4 (66 mins) EX 2 (24 mins) LUISANA TORRES Feb 03, 2022 10:46
--- NOTE | 2022-02-03 13:00 | Physical Therapy Daily Note ---
PT Daily Note-Current Subjective Pt sitting in recliner upon arrival. Pt agrees to Pt after some encouragement as pt is discouraged about procedure this afternoon and what that might mean for pt's recovery. PROCESSING CLERK reassures pt and Dr martínez visits with pt as well as answers questions. Pain Location: No Pain Reported Mental Status Patient Orientation: Person, Place, Time, Situation Attachments: Oxygen (4L during tx) Transfers SCALE: Activities may be completed with or without assistive devices. 8-Qrzcnppnwf-wgfcdog completes the activity by him/herself with no assistance from a helper. 5-Set-up or Clean-up Assistance-helper sets up or cleans up; patient completes activity. [place] assists only prior to or following the activity. 4-Supervision or Touching Assistance-helper provides verbal cues and/or touching/steadying and/or contact guard assistance as patient completes activity. Assistance may be provided throughout the activity or intermittently. 3-Partial/Moderate Assistance-helper does LESS THAN HALF the effort. [place] lifts, holds or supports trunk or limbs, but provides less than half the effort. 2-Substantial/Maximal Assistance-helper does MORE THAN HALF the effort. [place] lifts or holds trunk or limbs and provides more than half the effort. 7-Vxjhwcqoa-ffybal does ALL the effort. Patient does none of the effort to complete the activity. Or, the assistance of 2 or more helpers is required for the patient to complete the activity. If activity was not attempted, code reason: 7-Patient Refused. 9-Not Applicable-not attempted and the patient did not perform the activity before the current illness, exacerbation or injury. 10-Not Attempted due to Environmental Limitations-(lack of equipment, weather restraints, etc.). 88-Not Attempted due to Medical Conditions or Safety Concerns. Sit to Stand (QC): 4 Weight Bearing Full Weight Bearing Full Weight Bearing Gait Training Does the Patient Walk?: Yes Distance: 125' x2 Walk 10 feet (QC): 4 Walk 50 ft with 2 Turns(QC): 4 Gait Persons Needed: 1 Gait Assistive Device: FWW Exercises Seated Therapy Exercises: Ankle pumps, Long arc quads, Hip flexion, Hamstring Curls, Hip abd/add Seated Reps: 20 (Ex completed w & w/o re Tband resistance) NuStep Minutes: 15 NuStep Workload: 4 Treatments Pt feeling down about upcoming procedures and recovery that might take. PROCESSING CLERK reassures pt and discusses how this might relate to progress and how pt might keep a positive attitude because this is not a concrete endeavor. Dr Martínez checks on pt and reassures pt as well. Pt transfers to standing, declines need for BR and amb. in hallway. Pt uses NuStep for 15m at WL 4 then after short RB, pt completes Seated Ex with frequent RB as needed. Pt amb. in hallway then surgery staff takes over as pt prepares for afternoon procedures. Assessment Current Status: Good Progress Pt has improved ruth. of tx. Pt requires fewer rest breaks and reports decreased fatigue. PT Trade Clerk Goals Trade Clerk Goals PT Trade Clerk Goals Time Frame: Feb 25, 2022 Roll Left & Right (QC): 6 Sit to Lying (QC): 6 Lying-Sitting on Side/Bed(QC): 6 Sit to Stand (QC): 6 Chair/Szh-gg-Vlmfc Xfer(QC): 6 Toilet Transfer (QC): 6 Car Transfer (QC): 6 Does the Patient Walk: Yes Walk 10 feet (QC): 6 Walk 50ft with 2 Turns (QC): 6 Walk 150 ft (QC): 6 Walking 10ft on Uneven Surface: 6 1 Step (curb) (QC): 6 4 Steps (QC): 6 12 Steps (QC): 6 Picking up an Object (QC): 6 Does the Pt use WC or Scooter?: No Wheel 50 feet with 2 turns (QC: 9 Type: N/A Wheel 150 feet: 9 Type: N/A PT Plan Problem List Problem List: Activity Tolerance Treatment/Plan Treatment Plan: Continue Plan of Care Treatment Plan: Bed Mobility, Concurrent Therapy, Education, Functional Activity Francesca, Functional Strength, Group Therapy, Gait, Safety, Therapeutic Exercise, Transfers Treatment Duration: Feb 25, 2022 Frequency: At least 5 of 7 days/Wk (IRF) Estimated Hrs Per Day: 1.5 hours per day Patient and/or Family Agrees t: Yes Time/GCodes Time In: 1030 Time Out: 1205 Total Billed Treatment Time: 95 Total Billed Treatment 1, EX x3 (45m), GT x2 (25m) & FA (20m) ANAHY ENCARNACION PROCESSING CLERK Feb 03, 2022 13:00
--- NOTE | 2022-02-03 14:17 | Progress Note-Post Operative ---
Post-Operative Progess Note Surgeon (s)/Photo Specialist (s) Surgeon ASAF TANG DO Photo Specialist: na Pre-Operative Diagnosis colonic distention Post-Operative Diagnosis same Procedure & Operative Findings Date of Procedure 02/03/22 Procedure Performed/Findings decompressive colonoscopy c placement of rectal tube Anesthesia Type per patient accounting representative Estimated Blood Loss Estimated blood loss (mL): na Specimens/Packing Specimens Removed na ASAF TANG DO Feb 03, 2022 14:17
--- NOTE | 2022-02-03 16:39 | Diagnostic Imaging Report ---
INDICATION: Status post colonoscopy, abdominal distention. Indwelling rectal tube. COMPARISON: None. FINDINGS: Two frontal radiographic views of the abdomen were obtained. Small bowel loops are nondistended. There is no large collection of free intraperitoneal air. No unexpected extraosseous calcifications or radiopaque foreign bodies are seen. Osseous structures show no gross acute abnormalities. IMPRESSION: Nonobstructed small bowel gas pattern. Dictated by: Dictated on workstation # [id number]
[2022-02-03] MEDS: LACTULOSE SYRUP 10GM/15ML (ENULOSE) 30ML UDC PO PRN (17:43)
[2022-02-03 19:37] VITALS: BP 99/62
[2022-02-03] MEDS: BACLOFEN 10 MG (LIORESAL) TAB PO PRN (21:45)
[2022-02-04] MEDS: CATHETER FLUSH 10 ML SYR IVP PRN
[2022-02-04] MEDS: MAGNESIUM OXIDE (MAG-OX)400 MG TAB PO SCH (06:09)
[2022-02-04] MEDS: KCL 10 MEQ TAB (MICRO K) PO SCH (06:09)
[2022-02-04] MEDS: METOCLOPRAMIDE INJ 10 MG/2 ML (REGLAN) IVP SCH ×2 (06:09)
[2022-02-04] MEDS: MULTIVIT W/MINERALS TAB (THERAGRAN M) PO SCH (06:10)
[2022-02-04] MEDS: CATHETER FLUSH 10 ML SYR IVP SCH ×3 (06:10→21:49)
--- NOTE | 2022-02-04 06:43 | PM&R Progress Note ---
Subjective HPI/CC On Admission Date Seen by Provider: Feb 04, 2022 Time Seen by Provider: 11:00 Subjective/Events-last exam 02/04/2022: Patient doing a little better Clear liquids until tomorrow per Dr. Ibrahim Bowels are starting to move Pain is improved Tuesday discharge plan 02/03/2022: Patient still having abdominal issues Colonic decompression again today Unable to work with therapy as much because the abdominal distention Shortness of breath from diaphragm elevation 02/02/22: Patient walking pretty well Colonoscopy decompression has helped tremendously and had a large BM yesterday evening Pain is still an issue which will be until ribs heal Alcoholism has placed him at major risks the issues he is currently having previously had 02/01/22: Pt may have endoscopy to decompress colon there is confusion between Dr Solis and call coverage Dr Ibrahim whether it is required of not Pt has excuses for everything and seems to be very detrimental in his motivation Had a long talk with the at the bedside that no indication that end of life is near but he could will himself to I recommended to grind it out and continue with therapy and work everyday to get improved and get home, out of the hospital and to quit having a poor attitude on approach Labs are within normal limits 01/31/2022: Patient having more abdominal distention Magnesium citrate and enema did not really result in much results Supportive care will continue Abdominal x-ray ordered showing colonic distention Dr. Ibrahim consulted may require endoscope for decompression Minimizing pain medications priority 01/30/22: Patient handling things well Multiple complaints about pain issues Left rib fractures will take time to heal Checked meds and labs 01/29/2022: Pt is doing pretty well Hemoglobin is 7.7 PICC line will be provided since he has poor venous access IV iron initiated Heart rate is 118 Small bowel movement yesterday, gave him all the laxatives Review of Systems General: Fatigue, Malaise Objective Exam Vital Signs Vital Signs Date Time Temp Pulse Resp B/P (MAP) Pulse Ox O2 Delivery O2 Flow Rate FiO2 02/04/22 21:07 97 Nasal Cannula 4.00 02/04/22 19:36 37.0 94 16 96/57 (70) Capillary Refill : General Appearance: WD/WN, Anxious, Chronically ill, Mild Distress HEENT: PERRL/EOMI, Normal ENT Inspection, Pharynx Normal Neck: Full Range of Motion, Normal Inspection, Non Tender, Supple, Carotid Bruit Respiratory: Chest Non Tender, Lungs Clear, Normal Breath Sounds, No Accessory Muscle Use, No Respiratory Distress Cardiovascular: No Edema, No Gallop, No JVD, No Murmur, Normal Peripheral Pulses, Tachycardia Gastrointestinal: Normal Bowel Sounds, No Organomegaly, No Pulsatile Mass, Non Tender, Soft Rectal: Deferred Back: Normal Inspection, No CVA Tenderness, No Vertebral Tenderness Extremity: Normal Capillary Refill, Normal Inspection, Normal Range of Motion, Non Tender, No Calf Tenderness, No Pedal Edema Neurologic/Psychiatric: Alert, Oriented x3, Normal 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 FIM Transfers Therapy Code Descriptions/Definitions Functional [place] Measure: 0=Not Assessed/NA 4=Minimal Assistance 1=Total Assistance 5=Supervision or Setup 2=Maximal Assistance 6=Modified [place] 3=Moderate Assistance 7=Complete IndependenceSCALE: Activities may be completed with or without assistive devices. 1-Kyngfjozlx-lztjyyj completes the activity by him/herself with no assistance from a helper. 5-Set-up or Clean-up Assistance-helper sets up or cleans up; patient completes activity. [place] assists only prior to or following the activity. 4-Supervision or Touching Assistance-helper provides verbal cues and/or touching/steadying and/or contact guard assistance as patient completes activity. Assistance may be provided throughout the activity or intermittently. 3-Partial/Moderate Assistance-helper does LESS THAN HALF the effort. [place] lifts, holds or supports trunk or limbs, but provides less than half the effort. 2-Substantial/Maximal Assistance-helper does MORE THAN HALF the effort. [place] lifts or holds trunk or limbs and provides more than half the effort. 1-Zwajpgfql-jzbwrd does ALL the effort. Patient does none of the effort to com plete the activity. Or, the assistance of 2 or more helpers is required for the patient to complete the activity. If activity was not attempted, code reason: 7-Patient Refused. 9-Not Applicable-not attempted and the patient did not perform the activity before the current illness, exacerbation or injury. 10-Not Attempted due to Environmental Limitations-(lack of equipment, weather restraints, etc.). 88-Not Attempted due to Medical Conditions or Safety Concerns. Roll Left to Right (QC): 3 Sit to Lying (QC): 3 Sit to Stand (QC): 4 Chair/Wbl-aa-Rokrp Xfer(QC): 4 Car Transfer (QC): 4 (CGA) Gait Training Does the Patient Walk?: Yes Distance: 125' x2 Walk 10 feet (QC): 4 Walk 50 ft with 2 Turns(QC): 4 Walk 150 ft (QC): 5 Walking 10ft/uneven surface-QC: 4 Gait Persons Needed: 1 Gait Assistive Device: FWW Wheelchair Training Does the Pt Use a Wheelchair?: No Wheel 50 ft with 2 turns (QC): 9 Wheel 150 ft (QC): 9 Type of Wheelchair: N/A Stair Training 1 Step (curb) (QC): 4 4 Steps (QC): 4 12 Steps (QC): 88 Balance Picking up an Object (QC): 88 (Due to pt diminished balance, unsafe to perform at this time.) ADL-Treatment Eating (QC): 5 Oral Hygiene (QC): 6 Bathing Location: L Arm, R Arm, L Upper Leg, R Upper Leg, L Lower Leg (including foot), R Lower Leg (including foot), Chest, Abdomen, Buttocks, Perineal Area Shower/Bathe Self (QC): 4 (CGA when standing to cleanse buttocks and veronica) Upper Body Dressing (QC): 5 Lower Body Dressing (QC): 4 On/Off Footwear (QC): 3 Toileting Hygiene (QC): 4 Toilet Transfer (QC): 4 Assessment/Plan Assessment and Plan Assess & Plan/Chief Complaint Assessment: Debility following fall with left-sided rib fractures and splenic laceration Prior CVA with worsening left-sided weakness Multiple falls at home recently Alcoholism Anxiety Tachycardia Acute blood loss anemia Gout COPD Colonic distention with obstipation consulted Dr. Ibrahim 01/31/2022 status post colonic decompression 02/01/2022 with good results and resolution of constipation but then recurred requiring another decompression on 02/03/2022 Plan: Aggressive rehab Supportive care Monitor heart rate 01/29/2022: Supportive care Monitor hemoglobin Iron infusions 01/30/22: Pain management Monitor closely 01/31/2022: Appreciate Dr. Alexandria Raygoza liquids 02/01/22: Colonic distention management 02/02/2022: Appreciate Dr. Ibrahim Supportive care 02/03/2022: Colonic decompression acute Checked meds and labs 02/04/2022: Bowel regimen will continue Supportive care (1) Left-sided weakness Status: Acute (2) Spleen laceration Status: Acute (3) Hypertension Status: Chronic (4) Neuropathy Status: Chronic (5) Anxiety Status: Chronic (6) Gout (7) COPD (chronic obstructive pulmonary disease) (8) Alcoholism Status: Chronic HARDY CAMPBELL DO Feb 04, 2022 06:43
[2022-02-04] MEDS: HYDROcodone/APAP 7.5 MG/325 MG (LORTAB, LORCET PLUS) TABLET PO PRN ×4 (06:57→22:27)
--- NOTE | 2022-02-04 06:58 | Progress Note - Surgery ---
SHAMIKA RIOS A MED STUDENT 02/04/22 0657: Subjective Date Seen by a Provider: Feb 04, 2022 Time Seen by a Provider: 07:15 Subjective/Events-last exam Pt up in the chair this morning, drinking fluids with no N/V. Pt reports he passed liquid and solid stool with large amounts of flatus last night and again this morning. His left rib pain has improved, but now he feels diffuse abdominal pain that he rates a 7/10, but states that is "not that bad on the pain scale". Pt reports his abdomen does feel less distended today. Pt denies fever, chills, CP, palpitations, SOA, cough, N/V, dysuria. Pt reports he has been working with PT and OT and will continue to work with him today. KUB yesterday was taken after decompressive colonoscopy. Review of Systems General: No Chills, No Fatigue HEENT: No Head Aches, No Visual Changes Pulmonary: No Dyspnea, No Cough Cardiovascular: No: Chest Pain, Palpitations Gastrointestinal: Abdominal Pain; No: Nausea, Vomiting Genitourinary: No Dysuria, No Frequency Neurological: No: Weakness, Numbness Objective Exam Vital Signs Date Time Temp Pulse Resp B/P (MAP) Pulse Ox O2 Delivery O2 Flow Rate FiO2 02/03/22 20:38 94 Nasal Cannula 4.00 02/03/22 20:23 Nasal Cannula 4.00 02/03/22 19:37 37.3 100 20 99/62 (74) 93 Nasal Cannula 4.00 02/03/22 09:00 Nasal Cannula 3.00 02/03/22 07:39 37.4 101 20 122/58 (79) 90 Nasal Cannula 3.00 02/03/22 07:03 90 Nasal Cannula 3.00 Capillary Refill : General Appearance: WD/WN, Anxious, Chronically ill HEENT: PERRL/EOMI, Normal ENT Inspection, Pharynx Normal Neck: Full Range of Motion, Normal Inspection, Non Tender, Supple, Carotid Bruit Respiratory: Chest Non Tender, Lungs Clear, Normal Breath Sounds, No Accessory Muscle Use, No Respiratory Distress Cardiovascular: No Edema, No Gallop, No JVD, Tachycardia Gastrointestinal: distended, tenderness (slight left upper quadrant), other Extremity: Normal Range of Motion, Non Tender, No Calf Tenderness, Pedal Edema (2+pitting edema) Neurologic/Psychiatric: Alert, Oriented x3, wharf tender head II-XII Norm as Tested, Motor Weakness (Left-sided weakness upper extremity > lower extremity) Skin: Normal Color, Warm/Dry Lymphatic: No Adenopathy Assessment/Plan Assessment/Plan Assessment/Plan Abdominal distention/constipation Ileuscolonic S/p colonoscopic decompressive 02/01 Recent same level fall with left rib fx 10-12 and grade 2-3 splenic laceration treated conservatively Prior CVA with worsening left-sided weakness Alcoholism Anxiety Acute blood loss anemia Gout COPD Repeat KUB today to check for increased abdominal distension Clear liquid diet Continue PT and ambulation, Patient instructed to try to limit narcotic use. Emphasized to pt that continued ambulation and PT/OT will be of benefit to him Continue to monitor Hgb levels, repeat labs today Rectal tube placed with passage of gas and soft stool, so this was removed. Pt passing gas and stool on own. Continue to monitor. ASAF IBRAHIM DO 02/04/22 1406: Subjective Subjective/Events-last exam Abdomen less distended. Has flatus and bm. Feelig better. Rib pain improved, but feeling pain in abdomen more. Tolerating clears. Denies n/v fever sweats chills shortness of breath or chest pain at this time. Objective Exam General Appearance: No Apparent Distress, Anxious HEENT: PERRL/EOMI, Normal ENT Inspection Neck: Full Range of Motion, Non Tender Respiratory: Chest Non Tender, No Accessory Muscle Use, No Respiratory Distress Cardiovascular: No JVD, Tachycardia Gastrointestinal: distended (less), tenderness (slight left upper quadrant), other Extremity: Normal Range of Motion, Pedal Edema (2+pitting edema) Neurologic/Psychiatric: Alert, Oriented x3, Motor Weakness (Left-sided weakness upper extremity > lower extremity) Skin: Normal Color, Warm/Dry Lymphatic: No Adenopathy Assessment/Plan Assessment/Plan Assessment/Plan Abdominal distention/constipation Ileuscolonic S/p colonoscopic decompressive 02/01 Recent same level fall with left rib fx 10-12 and grade 2-3 splenic laceration treated conservatively Prior CVA with worsening left-sided weakness Alcoholism Anxiety Acute blood loss anemia Gout COPD Clear liquid diet if continues to improve plan advancing tomorrow. Continue PT and ambulation, Patient instructed to try to limit narcotic use. Emphasized to pt that continued ambulation and PT/OT will be of benefit to him Continue to monitor Hgb levels, repeat labs today Rectal tube placed with passage of gas and soft stool, so this was removed. Pt passing gas and stool on own. Continue to monitor. Supervisory-Addendum Brief Verification & Attestation Participated in pt care: history, MDM, physical Personally performed: exam, history, MDM, supervision of care Care discussed with: Medical Student Procedures: n/a Results interpretation: Verified all documentation Verification and Attestation of Medical Student E/M Service A medical student performed and documented this service in my presence. I reviewed and verified all information documented by the medical student and made modifications to such information, when appropriate. I personally performed the physical exam and medical decision making. Asaf Ibrahim, Feb 04, 2022,14:06 SHAMIKA RIOS MED STUDENT Feb 04, 2022 06:57 ASAF IBRAHIM DO Feb 04, 2022 14:06
[2022-02-04] MEDS: RT-ALBUTEROL/IPRATROPIUM 3 ML (DUONEB) VIAL INH SCH ×3 (07:07→21:07)
[2022-02-04] MEDS: polyethylene glycoL POWDER 17 GM (MIRALAX) PACK PO SCH (07:23)
[2022-02-04] MEDS: ATENOLOL 50 MG (TENORMIN) TAB PO SCH (07:23)
[2022-02-04] MEDS: FOLIC ACID 1 MG TAB PO SCH (07:24)
[2022-02-04] MEDS: DOCUSATE SODIUM 100 MG (COLACE) CAP PO SCH (07:24)
[2022-02-04] MEDS: PANTOPRAZOLE 40 MG (PROTONIX) TAB PO SCH (07:24)
[2022-02-04] MEDS: SENNOSIDES 8.6 MG (SENOKOT) TAB PO SCH (07:24)
[2022-02-04] MEDS: SENNA W/DOCUSATE (SENOKOT S) TABLET PO SCH (07:25)
[2022-02-04] MEDS: LORazepam 0.5 MG (ATIVAN) TABLET PO PRN (07:31)
[2022-02-04 07:41] VITALS: BP 117/73
--- NOTE | 2022-02-04 08:17 | Cardiology Progress Note ---
Subjective Date Seen by Provider: Feb 04, 2022 Time Seen by Provider: 08:16 Subjective/Events-last exam Patient was seen at bedside sitting comfortably, had a bowel movement today. Review of Systems General: No Chills, No Night Sweats, No Fatigue, No Malaise, No Appetite, No Other HEENT: No Head Aches, No Visual Changes, No Eye Pain, No Ear Pain, No Dysphasia, No Sinus Congestion, No Post Nasal Drip, No Sore Throat, No Other Pulmonary: No Dyspnea, No Cough, No Pleuritic Chest Pain, No Other Cardiovascular: No: Chest Pain, Palpitations, Orthopnea, Paroxysmal Noc. Dyspnea, Edema, Lt Headedness, Other Objective-Cardiology Exam Last Set of Vital Signs Vital Signs 02/04/22 07:41 Temp 37.6 Pulse 116 Resp 16 B/P (MAP) 117/73 (88) Pulse Ox 90 O2 Delivery Nasal Cannula O2 Flow Rate 2.00 General: Alert, Oriented X3, Cooperative, Mild Distress HEENT: Atraumatic, PERRLA Neck: Supple, No JVD Lungs: Clear to Auscultation, Normal Air Movement Heart: Regular Rate, Normal S1, Normal S2, No Murmurs Abdomen: Other (abdominal distention, diminished bowel sounds) Extremities: Normal Pulses, Other (periperhal edema ) Skin: No Rashes, No Breakdown, No Significant Lesion Neuro: Normal Speech, Sensation Intact Psych/Mental Status: Mental Status NL, Mood NL A/P-Cardiology Admission Diagnosis Sinus Tachycardia Splenic laceration with perisplenic hematoma Abdominal and pelvic hemoperitoneum History of CVA Assessment/Plan Sinus Tachycardia, probably secondary to hypoxemia and abdominal pain. Restarted on atenolol, continue to monitor heart rate and blood pressure Hemoglobin at 8.9 at last check Colonic ileus Patient s/p splenic laceration with perisplenic hematoma and hemoperitoneum with left rib 10-12 fx Magnesium citrate and enema unsuccessful General surgery consulted, underwent colonic decompression twice and rectal tube placement. Had bowel movement and feeling better, had another KUB today. Report to follow. Splenic laceration with perisplenic hematoma and hemoperitoneum Continue with conservative management per general surgery Continue to hold Aspirin Non-displaced left 10-12th left rib fracture Conservative management PT/OT Continue with IS until patient is able to better expand chest wall Hypertension Patient is maintained at home on amlodipine 5 and atenolol 25, currently managed by medical team Hyperlipidemia Patient is maintained at home on atorvastatin 80, currently managed by medical team History of CVA , Cryptogenic stroke. Patient maintained at home on aspirin, currently holding due to splenic laceration Continue to monitor telemetry History of loop monitor implantation done for cryptogenic stroke. We will c yelenainue to monitor and interpret rhythm Hx of Alcoholism managed by medical team ALEXIA FAIRCHILD MD Feb 04, 2022 08:17
--- NOTE | 2022-02-04 08:20 | Diagnostic Imaging Report ---
Indication: Abdominal distention and increasing shortness of breath. Time of Exam: 7:40 AM Correlation is made with prior radiograph from one day earlier. No free air is identified. The bowel gas pattern appears similar to yesterday's exam. There is some mild prominence of small and large bowel loops, nonspecific. No significant bowel wall thickening or pneumatosis is seen. No pathologic calcifications are seen. There does appear to be some consolidation in the left lung base as well as a moderate left basilar effusion. IMPRESSION: Continued nonspecific bowel gas pattern with mild prominence to the small and large bowel loops, perhaps on the basis of ileus. Dictated by: Dictated on workstation # [id number]
--- NOTE | 2022-02-04 09:05 | Physical Therapy Daily Note ---
PT Daily Note-Current Subjective Pt. states it is hard to explain but he feels he has had some relief in his stomach but still has pain at a level he cant describe. Agrees to Rx with encouragement. Pain Comment: has abdominal pain but cant rate Mental Status Patient Orientation: Normal For Age Attachments: Oxygen (4L) Transfers SCALE: Activities may be completed with or without assistive devices. 1-Ajadenusbd-uxusxai completes the activity by him/herself with no assistance from a helper. 5-Set-up or Clean-up Assistance-helper sets up or cleans up; patient completes activity. [place] assists only prior to or following the activity. 4-Supervision or Touching Assistance-helper provides verbal cues and/or touching /steadying and/or contact guard assistance as patient completes activity. Assistance may be provided throughout the activity or intermittently. 3-Partial/Moderate Assistance-helper does LESS THAN HALF the effort. [place] lifts, holds or supports trunk or limbs, but provides less than half the effort. 2-Substantial/Maximal Assistance-helper does MORE THAN HALF the effort. [place] lifts or holds trunk or limbs and provides more than half the effort. 9-Xrsxfhvpv-fzrwsj does ALL the effort. Patient does none of the effort to complete the activity. Or, the assistance of 2 or more helpers is required for the patient to complete the activity. If activity was not attempted, code reason: 7-Patient Refused. 9-Not Applicable-not attempted and the patient did not perform the activity before the current illness, exacerbation or injury. 10-Not Attempted due to Environmental Limitations-(lack of equipment, weather restraints, etc.). 88-Not Attempted due to Medical Conditions or Safety Concerns. Roll Left & Right (QC): 6 Sit to Lying (QC): 6 Lying to Sitting/Side of Bed(Q: 6 Sit to Stand (QC): 6 Chair/Une-hj-Pzljj Xfer(QC): 6 pt. needed instruction for rolling to right to push up with right forearm to sitting. Pt shares he does not like to lay flat so he only did this briefly Weight Bearing Full Weight Bearing Full Weight Bearing Gait Training Does the Patient Walk?: Yes Walk 10 feet (QC): 4 Walk 50 ft with 2 Turns(QC): 4 Gait Persons Needed: 1 Gait Assistive Device: FWW pt. needed assist and reminders to use L hand on walker and hold on to it purposefully. pt. c/o fatigue with gait and asked to rest sitting, walked 50 ft x 2, 75 ft x 1 FWW CGA, no LOB but does have noted antalgia secondary to Hx CVA etc Exercises Seated Therapy Exercises: Ankle pumps, Sit to stand, Long arc quads, Hip flexion, Hip abd/add Seated Reps: 15 NuStep Minutes: 10 NuStep Workload: 4 Assessment Current Status: Good Progress Pt. is limited by the discomfort in his abdomen, pt. had some relief from yesterdays procedure, pt. still requires rest breaks , overall improvement PT Senior Care Goals Senior Care Goals PT Senior Care Goals Time Frame: Feb 25, 2022 Roll Left & Right (QC): 6 Sit to Lying (QC): 6 Lying-Sitting on Side/Bed(QC): 6 Sit to Stand (QC): 6 Chair/Qah-ld-Dlbmx Xfer(QC): 6 Toilet Transfer (QC): 6 Car Transfer (QC): 6 Does the Patient Walk: Yes Walk 10 feet (QC): 6 Walk 50ft with 2 Turns (QC): 6 Walk 150 ft (QC): 6 Walking 10ft on Uneven Surface: 6 1 Step (curb) (QC): 6 4 Steps (QC): 6 12 Steps (QC): 6 Picking up an Object (QC): 6 Does the Pt use WC or Scooter?: No Wheel 50 feet with 2 turns (QC: 9 Type: N/A Wheel 150 feet: 9 Type: N/A PT Plan Treatment/Plan Treatment Plan: Continue Plan of Care Treatment Plan: Bed Mobility, Concurrent Therapy, Education, Functional Activity Francesca, Functional Strength, Group Therapy, Gait, Safety, Therapeutic Exercise, Transfers Treatment Duration: Feb 25, 2022 Frequency: At least 5 of 7 days/Wk (IRF) Estimated Hrs Per Day: 1.5 hours per day Patient and/or Family Agrees t: Yes Safety Risks/Education Patient Education: Gait Training, Transfer Techniques, Correct Positioning, Disease Process, Safety Issues Teaching Recipient: Patient Teaching Methods: Demonstration, Discussion Response to Teaching: Verbalize Understanding, Return Demonstration, Reinforcement Needed Time/GCodes Time In: 800 Time Out: 900 Total Billed Treatment Time: 60 Total Billed Treatment 1,ex 30m,gt 30m KYMBERLY SANCHEZ REMOTE RECRUITER Feb 04, 2022 09:05
--- NOTE | 2022-02-04 10:46 | Occupational Ther Daily Note ---
OT Current Status-Daily Note Subjective Pt alert, sitting in recliner. Pt agrees to therapy. Pt c/o pain around abdomen and chest, does not rate. Mental Status/Objective Patient Orientation: Person, Place, Time, Situation Attachments: IV (PICC), Oxygen (4L) ADL-Treatment Pt agrees to shower. Pt doffs L sock by self then uses dressing stick to doff R sock. Pt ambulates to bathroom and transfers into shower with SBA for safety. Sitting on shower bench, pt completes shower independently using grabbars, hand held shower and LH sponge. After set up, pt able to don shirt by self. Pt able to use figure 4 tech to thread L LE into pants then uses dialysis equipment technician to thread R LE, pulls up legs then stands to hike pants over hips with SBA for safety. Sitting at sink, pt completes oral care independently. Pt attempts to don L sock using figure 4 tech, unable to complete. Pt educated on sock aid, [place]ON placed sock on sock aide and verbally instructed while pt used sock aide to don socks. Pt then ambulated back to recliner. Made pt comfortable in recliner at end of session with call light/phone in reach. SW present in room. Therapy Code Descriptions/Definitions Functional [place] Measure: 0=Not Assessed/NA 4=Minimal Assistance 1=Total Assistance 5=Supervision or Setup 2=Maximal Assistance 6=Modified [place] 3=Moderate Assistance 7=Complete IndependenceSCALE: Activities may be completed with or without assistive devices. 6-Zzaxcrfozb-lpaxgfe completes the activity by him/herself with no assistance from a helper. 5-Set-up or Clean-up Assistance-helper sets up or cleans up; patient completes activity. [place] assists only prior to or following the activity. 4-Supervision or Touching Assistance-helper provides verbal cues and/or touching/steadying and/or contact guard assistance as patient completes activi ty. Assistance may be provided throughout the activity or intermittently. 3-Partial/Moderate Assistance-helper does LESS THAN HALF the effort. [place] lifts, holds or supports trunk or limbs, but provides less than half the effort. 2-Substantial/Maximal Assistance-helper does MORE THAN HALF the effort. [place] lifts or holds trunk or limbs and provides more than half the effort. 0-Uavsbahyy-rmfggv does ALL the effort. Patient does none of the effort to complete the activity. Or, the assistance of 2 or more helpers is required for the patient to complete the activity. If activity was not attempted, code reason: 7-Patient Refused. 9-Not Applicable-not attempted and the patient did not perform the activity before the current illness, exacerbation or injury. 10-Not Attempted due to Environmental Limitations-(lack of equipment, weather restraints, etc.). 88-Not Attempted due to Medical Conditions or Safety Concerns. Oral Hygiene (QC): 6 Shower/Bathe Self (QC): 6 Upper Body Dressing (QC): 5 Lower Body Dressing (QC): 4 On/Off Footwear: 3 Pt requires increased time to complete all tasks due to increased fatigue and needing longer recovery times. OT Short Term Goals Short Term Goals Time Frame: Feb 16, 2022 Toileting hygiene: 4 Shower/bathe self: 4 Lower body dressin Putting on/taking off footwear: 4 OT Assisted Goals Girl Friday Goals Time Frame: Feb 26, 2022 Eating (QC): 6 Oral Hygiene (QC): 6 Toileting Hygiene (QC): 6 Shower/Bathe Self (QC): 6 Upper Body Dressing (QC): 6 Lower Body Dressing (QC): 6 On/Off Footwear (QC): 6 Additional Goals: 1-Demonstrate ADL Tasks, 2-Verbalize Understanding, 3- ImproveStrength/Francesca 1=Demonstrate adherence to instructed precautions during ADL tasks. 2=Patient will verbalize/demonstrate understanding of assistive devices/modifications for ADL. 3=Patient will improve strength/tolerance for activity to enable patient to perform ADL's. OT Education/Plan Problem List/Assessment Assessment: Decreased Activ Tolerance, Decreased UE Strength, Impaired Self- Care Skills, Restricted Funct UE ROM Discharge Recommendations Plan/Recommendations: Continue POC Treatment Plan/Plan of Care Patient would benefit from OT for education, treatment and training to promote independence in ADL's, mobility, safety and/or upper extremity function for ADL's. Plan of Care: ADL Retraining, Functional Mobility, Group Exercise/Act as Ind, UE Funct Exercise/Act, UE Neuromus Re-Ed/Coord Treatment Duration: Feb 26, 2022 Frequency: At least 5 of 7 days/Wk (IRF) Estimated Hrs Per Day: 1.5 hours per day Rehab Potential: Fair Time/GCodes Start Time: 09:00 Stop Time: 10:30 Total Time Billed (hr/min): 90 Billed Treatment Time 1 visit-ADL 6 (90 min) SUNIL DAMON Feb 04, 2022 10:46
--- NOTE | 2022-02-04 12:04 | Physical Therapy Daily Note ---
PT Daily Note-Current Subjective Upon arrival pt was reclined in recliner. Pt agrees to PT. Pt request if EX can be done seated. Pt performs and completes seated EX. Pain Comment: Pt says he has discomfort but does not rate Mental Status Patient Orientation: Normal For Age Attachments: Oxygen (4) Transfers SCALE: Activities may be completed with or without assistive devices. 8-Tnqyawizep-iippqpo completes the activity by him/herself with no assistance from a helper. 5-Set-up or Clean-up Assistance-helper sets up or cleans up; patient completes activity. [place] assists only prior to or following the activity. 4-Supervision or Touching Assistance-helper provides verbal cues and/or touching/steadying and/or contact guard assistance as patient completes activity. Assistance may be provided throughout the activity or intermittently. 3-Partial/Moderate Assistance-helper does LESS THAN HALF the effort. [place] lifts, holds or supports trunk or limbs, but provides less than half the effort. 2-Substantial/Maximal Assistance-helper does MORE THAN HALF the effort. [place] lifts or holds trunk or limbs and provides more than half the effort. 4-[place]-lyg[place]g does ALL the effort. Patient does none of the effort to com plete the activity. Or, the assistance of 2 or more helpers is required for the patient to complete the activity. If activity was not attempted, code reason: 7-Patient Refused. 9-Not Applicable-not attempted and the patient did not perform the activity before the current illness, exacerbation or injury. 10-Not Attempted due to Environmental Limitations-(lack of equipment, weather restraints, etc.). 88-Not Attempted due to Medical Conditions or Safety Concerns. Sit to stand from chair to toilet SBA. Weight Bearing Full Weight Bearing Full Weight Bearing Gait Training Does the Patient Walk?: Yes Gait Assistive Device: FWW 12' x2. To BR and back, pt walk with extended O2 tubing with assistance from PANEL BUILDER, to manage tubing safely. Exercises Seated Therapy Exercises: Ankle pumps, Sit to stand (x 2), Long arc quads, Hip flexion, Hamstring Curls, Hip abd/add Seated Reps: 20 Assessment Current Status: Good Progress PT Correction Goals Smudger Goals PT Smudger Goals Time Frame: Feb 25, 2022 Roll Left & Right (QC): 6 Sit to Lying (QC): 6 Lying-Sitting on Side/Bed(QC): 6 Sit to Stand (QC): 6 Chair/Jep-bw-Fgsfw Xfer(QC): 6 Toilet Transfer (QC): 6 Car Transfer (QC): 6 Does the Patient Walk: Yes Walk 10 feet (QC): 6 Walk 50ft with 2 Turns (QC): 6 Walk 150 ft (QC): 6 Walking 10ft on Uneven Surface: 6 1 Step (curb) (QC): 6 4 Steps (QC): 6 12 Steps (QC): 6 Picking up an Object (QC): 6 Does the Pt use WC or Scooter?: No Wheel 50 feet with 2 turns (QC: 9 Type: N/A Wheel 150 feet: 9 Type: N/A PT Plan Treatment/Plan Treatment Plan: Continue Plan of Care Treatment Plan: Bed Mobility, Concurrent Therapy, Education, Functional Activity Francesca, Functional Strength, Group Therapy, Gait, Safety, Therapeutic Exercise, Transfers Treatment Duration: Feb 25, 2022 Frequency: At least 5 of 7 days/Wk (IRF) Estimated Hrs Per Day: 1.5 hours per day Patient and/or Family Agrees t: Yes Safety Risks/Education Patient Education: Gait Training, Correct Positioning Teaching Recipient: Patient Teaching Methods: Discussion Response to Teaching: Return Demonstration, Reinforcement Needed Time/GCodes Time In: 1100 Time Out: 1130 Total Billed Treatment Time: 30 Total Billed Treatment 1, EX 20, FA 10. INES HADDAD PTA Feb 04, 2022 12:04
[2022-02-04] MEDS ORDERED: LIDOCAINE 2% VISCOUS 15 ML UDC PO PRN (18:00)
[2022-02-04 19:36] VITALS: BP 96/57
[2022-02-04] MEDS: BACLOFEN 10 MG (LIORESAL) TAB PO PRN (22:27)
[2022-02-05] MEDS: MULTIVIT W/MINERALS TAB (THERAGRAN M) PO SCH (06:08)
[2022-02-05] MEDS: MAGNESIUM OXIDE (MAG-OX)400 MG TAB PO SCH (06:09)
[2022-02-05] MEDS: KCL 10 MEQ TAB (MICRO K) PO SCH (06:09)
[2022-02-05] MEDS: CATHETER FLUSH 10 ML SYR IVP SCH ×3 (06:09→21:58)
[2022-02-05] MEDS: HYDROcodone/APAP 7.5 MG/325 MG (LORTAB, LORCET PLUS) TABLET PO PRN ×2 (06:15→19:44)
--- NOTE | 2022-02-05 06:24 | PM&R Progress Note ---
Subjective HPI/CC On Admission Date Seen by Provider: Feb 05, 2022 Time Seen by Provider: 12:30 Subjective/Events-last exam 02/05/2022: Bowel movements are improved Overall he is moving around really well Still distended Clear liquids will remain per Dr. Ibrahim Still at risk for total colectomy 02/04/2022: Patient doing a little better Clear liquids until tomorrow per Dr. Ibrahim Bowels are starting to move Pain is improved Tuesday discharge plan 02/03/2022: Patient still having abdominal issues Colonic decompression again today Unable to work with therapy as much because the abdominal distention Shortness of breath from diaphragm elevation 02/02/22: Patient walking pretty well Colonoscopy decompression has helped tremendously and had a large BM yesterday evening Pain is still an issue which will be until ribs heal Alcoholism has placed him at major risks the issues he is currently having previously had 02/01/22: Pt may have endoscopy to decompress colon there is confusion between Dr Solis and call coverage Dr Ibrahim whether it is required of not Pt has excuses for everything and seems to be very detrimental in his motivation Had a long talk with the at the bedside that no indication that end of life is near but he could will himself to I recommended to grind it out and continue with therapy and work everyday to get improved and get home, out of the hospital and to quit having a poor attitude on approach Labs are within normal limits 01/31/2022: Patient having more abdominal distention Magnesium citrate and enema did not really result in much results Supportive care will continue Abdominal x-ray ordered showing colonic distention Dr. Ibrahim consulted may require endoscope for decompression Minimizing pain medications priority 01/30/22: Patient handling things well Multiple complaints about pain issues Left rib fractures will take time to heal Checked meds and labs 01/29/2022: Pt is doing pretty well Hemoglobin is 7.7 PICC line will be provided since he has poor venous access IV iron initiated Heart rate is 118 Small bowel movement yesterday, gave him all the laxatives Review of Systems General: Fatigue, Malaise Neurological: Weakness Objective Exam Vital Signs Vital Signs Date Time Temp Pulse Resp B/P (MAP) Pulse Ox O2 Delivery O2 Flow Rate FiO2 02/05/22 21:28 95 Nasal Cannula 4.00 02/05/22 19:51 37.0 101 20 106/62 (77) Capillary Refill : General Appearance: WD/WN, Anxious, Chronically ill, Mild Distress HEENT: PERRL/EOMI, Normal ENT Inspection, Pharynx Normal Neck: Full Range of Motion, Normal Inspection, Non Tender, Supple, Carotid Bruit Respiratory: Chest Non Tender, Lungs Clear, Normal Breath Sounds, No Accessory Muscle Use, No Respiratory Distress Cardiovascular: No Edema, No Gallop, No JVD, No Murmur, Normal Peripheral Pulses, Tachycardia Gastrointestinal: Normal Bowel Sounds, No Organomegaly, No Pulsatile Mass, Non Tender, Soft Rectal: Deferred Back: Normal Inspection, No CVA Tenderness, No Vertebral Tenderness Extremity: Normal Capillary Refill, Normal Inspection, Normal Range of Motion, Non Tender, No Calf Tenderness, No Pedal Edema Neurologic/Psychiatric: Alert, Oriented x3, Normal Mood/Affect, scoop driver II-XII Norm as Tested, Motor Weakness (Left-sided weakness upper extremity > lower extremity) Skin: Normal Color, Warm/Dry Lymphatic: No Adenopathy Results/Procedures Lab Laboratory Tests 02/06/22 05:15 Patient resulted labs reviewed. FIM Transfers Therapy Code Descriptions/Definitions Functional [place] Measure: 0=Not Assessed/NA 4=Minimal Assistance 1=Total Assistance 5=Supervision or Setup 2=Maximal Assistance 6=Modified [place] 3=Moderate Assistance 7=Complete IndependenceSCALE: Activities may be completed with or without assistive devices. 6-Gtcyofwcsy-ycywlfw completes the activity by him/herself with no assistance from a helper. 5-Set-up or Clean-up Assistance-helper sets up or cleans up; patient completes activity. [place] assists only prior to or following the activity. 4-Supervision or Touching Assistance-helper provides verbal cues and/or lino shamar/steadying and/or contact guard assistance as patient completes activity. Assistance may be provided throughout the activity or intermittently. 3-Partial/Moderate Assistance-helper does LESS THAN HALF the effort. [place] lifts, holds or supports trunk or limbs, but provides less than half the effort. 2-Substantial/Maximal Assistance-helper does MORE THAN HALF the effort. [place] lifts or holds trunk or limbs and provides more than half the effort. 0-Equrzgtho-oxqsae does ALL the effort. Patient does none of the effort to complete the activity. Or, the assistance of 2 or more helpers is required for the patient to complete the activity. If activity was not attempted, code reason: 7-Patient Refused. 9-Not Applicable-not attempted and the patient did not perform the activity b efore the current illness, exacerbation or injury. 10-Not Attempted due to Environmental Limitations-(lack of equipment, weather restraints, etc.). 88-Not Attempted due to Medical Conditions or Safety Concerns. Roll Left to Right (QC): 6 Sit to Lying (QC): 6 Sit to Stand (QC): 6 Chair/Yvd-ku-Rkioj Xfer(QC): 6 Car Transfer (QC): 4 (CGA) Gait Training Does the Patient Walk?: Yes Distance: 125' x2 Walk 10 feet (QC): 4 Walk 50 ft with 2 Turns(QC): 4 Walk 150 ft (QC): 5 Walking 10ft/uneven surface-QC: 4 Gait Persons Needed: 1 Gait Assistive Device: FWW Wheelchair Training Does the Pt Use a Wheelchair?: No Wheel 50 ft with 2 turns (QC): 9 Wheel 150 ft (QC): 9 Type of Wheelchair: N/A Stair Training 1 Step (curb) (QC): 4 4 Steps (QC): 4 12 Steps (QC): 88 Balance Picking up an Object (QC): 88 (Due to pt diminished balance, unsafe to perform at this time.) ADL-Treatment Eating (QC): 5 Oral Hygiene (QC): 6 Bathing Location: L Arm, R Arm, L Upper Leg, R Upper Leg, L Lower Leg (including foot), R Lower Leg (including foot), Chest, Abdomen, Buttocks, Perineal Area Shower/Bathe Self (QC): 6 Upper Body Dressing (QC): 5 Lower Body Dressing (QC): 4 On/Off Footwear (QC): 3 Toileting Hygiene (QC): 4 Toilet Transfer (QC): 4 Assessment/Plan Assessment and Plan Assess & Plan/Chief Complaint Assessment: Debility following fall with left-sided rib fractures and splenic laceration Prior CVA with worsening left-sided weakness Multiple falls at home recently Alcoholism Anxiety Tachycardia Acute blood loss anemia Gout COPD Colonic distention with obstipation consulted Dr. Ibrahim 01/31/2022 status post colonic decompression 02/01/2022 with good results and resolution of constipation but then recurred requiring another decompression on 02/03/2022 Plan: Aggressive rehab Supportive care Monitor heart rate 01/29/2022: Supportive care Monitor hemoglobin Iron infusions 01/30/22: Pain management Monitor closely 01/31/2022: Appreciate Dr. Ibrahim Clear liquids 02/01/22: Colonic distention management 02/02/2022: Appreciate Dr. Ibrahim Supportive care 02/03/2022: Colonic decompression acute Checked meds and labs 02/04/2022: Bowel regimen will continue Supportive care 02/05/2022: Supportive care Bowel regimen (1) Left-sided weakness Status: Acute (2) Spleen laceration Status: Acute (3) Hypertension Status: Chronic (4) Neuropathy Status: Chronic (5) Anxiety Status: Chronic (6) Gout (7) COPD (chronic obstructive pulmonary disease) (8) Alcoholism Status: Chronic HARDY CAMPBELL DO Feb 05, 2022 06:23
[2022-02-05 07:28] VITALS: BP 115/57
[2022-02-05] MEDS: ATENOLOL 50 MG (TENORMIN) TAB PO SCH (08:39)
[2022-02-05] MEDS: IRON SUCROSE 200 MG/10 ML (VENOFER) VIAL IV SCH (08:39)
[2022-02-05] MEDS: PANTOPRAZOLE 40 MG (PROTONIX) TAB PO SCH (08:39)
[2022-02-05] MEDS: FOLIC ACID 1 MG TAB PO SCH (08:40)
[2022-02-05] MEDS: LORazepam 0.5 MG (ATIVAN) TABLET PO PRN (08:44)
--- NOTE | 2022-02-05 09:05 | Physical Therapy Daily Note ---
PT Daily Note-Current Subjective Pt. agrees to Rx , on toilet upon entering room, states he is struggling a little bit more today. Pt. asks if he can have his ativan, nurse consulted.Pt. states he has a O2 concentrator at home but he has not used it . Pain Numeric Pain Scale: 4 Location: Left Location Body Site: Chest (ribs) Pain Description: Ache Appearance conts with hard swollen tummy, pt. audibly grunting while active as if distressed Mental Status Patient Orientation: Normal For Age Attachments: Oxygen (4L ) Transfers SCALE: Activities may be completed with or without assistive devices. 3-Yzwiswtijr-feorjql completes the activity by him/herself with no assistance from a helper. 5-Set-up or Clean-up Assistance-helper sets up or cleans up; patient completes activity. [place] assists only prior to or following the activity. 4-Supervision or Touching Assistance-helper provides verbal cues and/or touching/steadying and/or contact guard assistance as patient completes activity. Assistance may be provided throughout the activity or intermittently. 3-Partial/Moderate Assistance-helper does LESS THAN HALF the effort. [place] lifts, holds or supports trunk or limbs, but provides less than half the effort. 2-Substantial/Maximal Assistance-helper does MORE THAN HALF the effort. [place] lifts or holds trunk or limbs and provides more than half the effort. 4-Bqilpssiy-gofota does ALL the effort. Patient does none of the effort to complete the activity. Or, the assistance of 2 or more helpers is required for the patient to complete the activity. If activity was not attempted, code reason: 7-Patient Refused. 9-Not Applicable-not attempted and the patient did not perform the activity before the current illness, exacerbation or injury. 10-Not Attempted due to Environmental Limitations-(lack of equipment, weather restraints, etc.). 88-Not Attempted due to Medical Conditions or Safety Concerns. Sit to Stand (QC): 4 Chair/Enc-zu-Ybqqq Xfer(QC): 4 Toilet Transfer (QC): 4 Weight Bearing Full Weight Bearing Full Weight Bearing Gait Training Does the Patient Walk?: Yes Gait Persons Needed: 1 Gait Assistive Device: FWW pt. ambulated about room as he is SOB and did not want to wear mask etc, also having some increased anxiety. pt. was instructed in safe use of extended O2 tube about his room ,walking 25 ft x 4 with noted dyspnea and O2 sats at 89 and 90% on 4L . HR 120 , with rest pts sats reaching 92% and HR90 Exercises Seated Therapy Exercises: Ankle pumps, Sit to stand, Long arc quads, Hip flexion, Hip abd/add Seated Reps: 12 (x2) Treatments toileted for BM with some assist for clean up, pt. more SOB with stance. Assessment Current Status: Fair Progress SOB this date, increased HR, decreased O2 sats with activity PT [facility] Goals Double Head Machine Operator Goals PT [facility] Goals Time Frame: Feb 25, 2022 Roll Left & Right (QC): 6 Sit to Lying (QC): 6 Lying-Sitting on Side/Bed(QC): 6 Sit to Stand (QC): 6 Chair/Pdn-tp-Nbrfg Xfer(QC): 6 Toilet Transfer (QC): 6 Car Transfer (QC): 6 Does the Patient Walk: Yes Walk 10 feet (QC): 6 Walk 50ft with 2 Turns (QC): 6 Walk 150 ft (QC): 6 Walking 10ft on Uneven Surface: 6 1 Step (curb) (QC): 6 4 Steps (QC): 6 12 Steps (QC): 6 Picking up an Object (QC): 6 Does the Pt use WC or Scooter?: No Wheel 50 feet with 2 turns (QC: 9 Type: N/A Wheel 150 feet: 9 Type: N/A PT Plan Treatment/Plan Treatment Plan: Continue Plan of Care Treatment Plan: Bed Mobility, Concurrent Therapy, Education, Functional Activity Francesca, Functional Strength, Group Therapy, Gait, Safety, Therapeutic Exercise, Transfers Treatment Duration: Feb 25, 2022 Frequency: At least 5 of 7 days/Wk (IRF) Estimated Hrs Per Day: 1.5 hours per day Patient and/or Family Agrees t: Yes Safety Risks/Education Patient Education: Gait Training, Transfer Techniques, Correct Positioning, Disease Process, Safety Issues Teaching Recipient: Patient Teaching Methods: Demonstration, Discussion Response to Teaching: Verbalize Understanding, Return Demonstration, Reinforcement Needed emphasis on education about use of extended O2 tubing simulating home situation Time/GCodes Time In: 800 Time Out: 900 Total Billed Treatment Time: 60 Total Billed Treatment 1,GT25m,FA15m,EX20m KYMBERLY SANCHEZ TRANSPORTATION WORKER Feb 05, 2022 09:05
[2022-02-05] MEDS: RT-ALBUTEROL/IPRATROPIUM 3 ML (DUONEB) VIAL INH SCH ×3 (09:16→21:28)
--- NOTE | 2022-02-05 09:54 | Progress Note - Surgery ---
SHAMIKA RIOS A MED STUDENT 02/05/22 0954: Subjective Date Seen by a Provider: Feb 05, 2022 Time Seen by a Provider: 10:15 Subjective/Events-last exam Pt up in chair after receiving a bath this morning. Pt reports his pain is currently 4/10 and he is feeling better since taking a shower. Pt reports he had a liquid and solid BM with large amount of gas this morning. Pt is requesting his diet to be advanced so he can have oatmeal. Pt denies fever, chills, SOA, cough, CP, palpitations, N/V, dysuria. Review of Systems General: No Chills, No Fatigue HEENT: No Head Aches, No Visual Changes Pulmonary: No Dyspnea, No Cough Cardiovascular: No: Chest Pain, Palpitations Gastrointestinal: Abdominal Pain; No: Nausea, Vomiting Genitourinary: No Dysuria, No Frequency Neurological: Weakness (Left sided) Objective Exam Vital Signs Date Time Temp Pulse Resp B/P (MAP) Pulse Ox O2 Delivery O2 Flow Rate FiO2 02/05/22 09:16 91 Nasal Cannula 4.00 02/05/22 07:28 37.6 100 16 115/57 (76) 91 Nasal Cannula 4.00 02/04/22 21:07 97 Nasal Cannula 4.00 02/04/22 20:12 Nasal Cannula 3.00 02/04/22 19:36 37.0 94 16 96/57 (70) 95 Nasal Cannula 4.00 02/04/22 14:26 98 Nasal Cannula 4.00 Capillary Refill : General Appearance: No Apparent Distress, WD/WN, Chronically ill HEENT: PERRL/EOMI, Normal ENT Inspection, Pharynx Normal Neck: Full Range of Motion, Normal Inspection, Non Tender, Supple Respiratory: Chest Non Tender, Lungs Clear, Normal Breath Sounds, No Accessory Muscle Use, No Respiratory Distress Cardiovascular: No Edema, No JVD, Tachycardia Gastrointestinal: distended (improved since yesterday), tenderness (diffuse mild tenderness to palpation), other Extremity: Normal Capillary Refill, Normal Inspection, Normal Range of Motion, Non Tender, No Calf Tenderness, No Pedal Edema Neurologic/Psychiatric: Alert, Oriented x3, Normal Mood/Affect, photo intern II-XII Norm as Tested, Motor Weakness (Left-sided weakness upper extremity > lower extremity) Skin: Normal Color, Warm/Dry Lymphatic: No Adenopathy Assessment/Plan Assessment/Plan Assessment/Plan Abdominal distention/constipation Ileuscolonic S/p colonoscopic decompressive 02/01 Recent same level fall with left rib fx 10-12 and grade 2-3 splenic laceration treated conservatively Prior CVA with worsening left-sided weakness Alcoholism Anxiety Acute blood loss anemia Gout COPD Advance to soft diet Continue PT and ambulation, Patient instructed to try to limit narcotic use. Emphasized to pt that continued ambulation and PT/OT will be of benefit to him Pt passing gas and stool on own. Hold laxatives and stool softeners as these could contribute to perforation ASAF IBRAHIM DO 02/05/221935: Subjective Subjective/Events-last exam Paitent passing flatus and bm. Abdomen still distended but not as bad he feels. Abodminal discomfort 02/14. Patient ambulating some about 3 times per day. Tolerating clears. Denies n/v fever sweats chills shortness of breath or chest pain at this time. Objective Exam General Appearance: No Apparent Distress, WD/WN, Chronically ill HEENT: PERRL/EOMI, Normal ENT Inspection Neck: Normal Inspection, Supple Respiratory: Chest Non Tender, No Accessory Muscle Use, No Respiratory Distress Cardiovascular: Regular Rate, Rhythm, No JVD Gastrointestinal: distended (slightly less), tenderness (diffuse minimal tenderness to palpation) Extremity: Normal Inspection, Non Tender Neurologic/Psychiatric: Alert, Oriented x3, Normal Mood/Affect, Motor Weakness (Left-sided weakness upper extremity > lower extremity) Skin: Normal Color, Warm/Dry Lymphatic: No Adenopathy Assessment/Plan Assessment/Plan Assessment/Plan Abdominal distention/constipation Ileuscolonic S/p colonoscopic decompressive 02/01 Recent same level fall with left rib fx 10-12 and grade 2-3 splenic laceration treated conservatively Prior CVA with worsening left-sided weakness Alcoholism Anxiety Acute blood loss anemia Gout COPD Still distended will keep on clears and likely advance tomorrow. Continue PT and ambulation, Patient instructed to try to limit narcotic use. Emphasized to pt that continued ambulation and PT/OT will be of benefit to him Pt passing gas and stool on own. I feel if he increases activity he will continue to improve. If doesn't will need colectomy. Hold laxatives and stool softeners as these could contribute to perforation Consider Neostigmine Supervisory-Addendum Brief Verification & Attestation Participated in pt care: history, MDM, physical Personally performed: exam, history, MDM, supervision of care Care discussed with: Medical Student Procedures: n/a Results interpretation: Verified all documentation Verification and Attestation of Medical Student E/M Service A medical student performed and documented this service in my presence. I reviewed and verified all information documented by the medical student and made modifications to such information, when appropriate. I personally performed the physical exam and medical decision making. Asaf Ibrahim, Feb 05, 2022,19:36 SHAMIKA RIOS MED STUDENT Feb 05, 2022 09:54 ASAF IBRAHIM DO Feb 05, 2022 19:36
--- NOTE | 2022-02-05 10:30 | Occupational Ther Daily Note ---
OT Current Status-Daily Note Subjective Pt alert, sitting in recliner. Pt agrees to therapy. Pt states that he is having difficulties with breathing and that if he could just blow his nose he would be able to breath better. Mental Status/Objective Patient Orientation: Person, Place, Time, Situation Attachments: IV (PICC) ADL-Treatment Pt agrees to shower. Pt doffs L sock by self then uses dressing stick to doff R sock. Pt ambulates to bathroom and transfers into shower with SBA for safety. Sitting on shower bench, pt completes shower independently using grabbars, hand held shower and LH sponge. After set up, pt able to don shirt by self. Pt able to use figure 4 tech to thread L LE into pants then uses product developer to thread R LE, pulls up legs then stands to hike pants over hips with SBA for safety. Sitting at sink, pt completes oral care independently. Pt takes increased time to complete all tasks due to SOA and lengthy recovery breaks. Pt able to blow nose and dislodge enough to make breathing easier at this time. After therapy, pt sitting in recliner with call light/phone in reach. All needs met in room. Therapy Code Descriptions/Definitions Functional [place] Measure: 0=Not Assessed/NA 4=Minimal Assistance 1=Total Assistance 5=Supervision or Setup 2=Maximal Assistance 6=Modified [place] 3=Moderate Assistance 7=Complete IndependenceSCALE: Activities may be completed with or without assistive devices. 5-Vegrmtqeal-nzeiwzs completes the activity by him/herself with no assistance from a helper. 5-Set-up or Clean-up Assistance-helper sets up or cleans up; patient completes activity. [place] assists only prior to or following the activity. 4-Supervision or Touching Assistance-helper provides verbal cues and/or touching/steadying and/or contact guard assistance as patient completes activ ity. Assistance may be provided throughout the activity or intermittently. 3-Partial/Moderate Assistance-helper does LESS THAN HALF the effort. [place] lifts, holds or supports trunk or limbs, but provides less than half the effort. 2-Substantial/Maximal Assistance-helper does MORE THAN HALF the effort. [place] lifts or holds trunk or limbs and provides more than half the effort. 2-Hispbehfz-vukfom does ALL the effort. Patient does none of the effort to complete the activity. Or, the assistance of 2 or more helpers is required for the patient to complete the activity. If activity was not attempted, code reason: 7-Patient Refused. 9-Not Applicable-not attempted and the patient did not perform the activity before the current illness, exacerbation or injury. 10-Not Attempted due to Environmental Limitations-(lack of equipment, weather restraints, etc.). 88-Not Attempted due to Medical Conditions or Safety Concerns. Oral Hygiene (QC): 6 Shower/Bathe Self (QC): 6 Upper Body Dressing (QC): 5 Lower Body Dressing (QC): 4 OT Short Term Goals Short Term Goals Time Frame: Feb 16, 2022 Toileting hygiene: 4 Shower/bathe self: 4 Lower body dressin Putting on/taking off footwear: 4 OT Psychologist Educational Goals Care Home Goals Time Frame: Feb 26, 2022 Eating (QC): 6 Oral Hygiene (QC): 6 Toileting Hygiene (QC): 6 Shower/Bathe Self (QC): 6 Upper Body Dressing (QC): 6 Lower Body Dressing (QC): 6 On/Off Footwear (QC): 6 Additional Goals: 1-Demonstrate ADL Tasks, 2-Verbalize Understanding, 3- ImproveStrength/Francesca 1=Demonstrate adherence to instructed precautions during ADL tasks. 2=Patient will verbalize/demonstrate understanding of assistive devices/modifications for ADL. 3=Patient will improve strength/tolerance for activity to enable patient to perform ADL's. OT Education/Plan Problem List/Assessment Assessment: Decreased Activ Tolerance, Decreased UE Strength, Impaired Self- Care Skills, Restricted Funct UE ROM Discharge Recommendations Plan/Recommendations: Continue POC Treatment Plan/Plan of Care Patient would benefit from OT for education, treatment and training to promote independence in ADL's, mobility, safety and/or upper extremity function for ADL's. Plan of Care: ADL Retraining, Functional Mobility, Group Exercise/Act as Ind, UE Funct Exercise/Act, UE Neuromus Re-Ed/Coord Treatment Duration: Feb 26, 2022 Frequency: At least 5 of 7 days/Wk (IRF) Estimated Hrs Per Day: 1.5 hours per day Rehab Potential: Fair Time/GCodes Start Time: 09:00 Stop Time: 10:30 Total Time Billed (hr/min): 90 Billed Treatment Time 1 visit-ADL 6 (90 min) SUNIL DAMON Feb 05, 2022 10:30
--- NOTE | 2022-02-05 10:49 | Cardiology Progress Note ---
Subjective Date Seen by Provider: Feb 05, 2022 Time Seen by Provider: 10:47 Subjective/Events-last exam Patient was seen at bedside, sitting comfortably, feeling significantly better, still having mild abdominal distention but overall reporting significant improvement Review of Systems General: No Chills, No Night Sweats, No Fatigue, No Malaise, No Appetite, No Other HEENT: No Head Aches, No Visual Changes, No Eye Pain, No Ear Pain, No Dysphasia, No Sinus Congestion, No Post Nasal Drip, No Sore Throat, No Other Pulmonary: No Dyspnea, No Cough, No Pleuritic Chest Pain, No Other Cardiovascular: No: Chest Pain, Palpitations, Orthopnea, Paroxysmal Noc. Dyspnea, Edema, Lt Headedness, Other Objective-Cardiology Exam Last Set of Vital Signs Vital Signs 02/05/22 02/05/22 07:28 09:16 Temp 37.6 Pulse 100 Resp 16 B/P (MAP) 115/57 (76) Pulse Ox 91 O2 Delivery Nasal Cannula O2 Flow Rate 4.00 General: Alert, Oriented X3, Cooperative, Mild Distress HEENT: Atraumatic, PERRLA Neck: Supple, No JVD Lungs: Clear to Auscultation, Normal Air Movement Heart: Regular Rate, Normal S1, Normal S2, No Murmurs Abdomen: Normal Bowel Sounds, No Tenderness Extremities: Normal Pulses, Other (periperhal edema ) Skin: No Rashes, No Breakdown, No Significant Lesion Neuro: Normal Speech, Sensation Intact Psych/Mental Status: Mental Status NL, Mood NL A/P-Cardiology Admission Diagnosis Sinus Tachycardia Splenic laceration with perisplenic hematoma Abdominal and pelvic hemoperitoneum History of CVA Assessment/Plan Sinus Tachycardia, better at this time Continue on atenolol, continue to monitor heart rate. Colonic ileus Patient s/p splenic laceration with perisplenic hematoma and hemoperitoneum with left rib 10-12 fx Magnesium citrate and enema unsuccessful General surgery consulted, underwent colonic decompression twice and rectal tube placement. Patient had multiple bowel movement yesterday and today and reporting significant improvement in his symptoms KUB showed improvement. Managed by Dr. Ibrahim Splenic laceration with perisplenic hematoma and hemoperitoneum Continue with conservative management per general surgery Continue to hold Aspirin Non-displaced left 10-12th left rib fracture Conservative management PT/OT Continue with IS until patient is able to better expand chest wall Hypertension Patient is maintained at home on amlodipine 5 and atenolol 25, currently managed by medical team Hyperlipidemia Patient is maintained at home on atorvastatin 80, currently managed by medical team History of CVA , Cryptogenic stroke. Patient maintained at home on aspirin, currently holding due to splenic laceration Continue to monitor telemetry History of loop monitor implantation done for cryptogenic stroke. We will continue to monitor and interpret rhythm Hx of Alcoholism managed by medical team ALEXIA AFIRCHILD MD Feb 05, 2022 10:49
--- NOTE | 2022-02-05 11:44 | Physical Therapy Daily Note ---
PT Daily Note-Current Subjective Upon arrival Pt was seated in recliner. Pt was ready for PT . Pain Location Body Site: Abdomen (Pt reports discomfort, but doesn't rate.) Mental Status Patient Orientation: Normal For Age Attachments: Oxygen (4L) Transfers SCALE: Activities may be completed with or without assistive devices. 7-Urptihbmrw-bxrwimw completes the activity by him/herself with no assistance from a helper. 5-Set-up or Clean-up Assistance-helper sets up or cleans up; patient completes activity. [place] assists only prior to or following the activity. 4-Supervision or Touching Assistance-helper provides verbal cues and/or touching/steadying and/or contact guard assistance as patient completes activity. Assistance may be provided throughout the activity or intermittently. 3-Partial/Moderate Assistance-helper does LESS THAN HALF the effort. [place] lifts, holds or supports trunk or limbs, but provides less than half the effort. 2-Substantial/Maximal Assistance-helper does MORE THAN HALF the effort. [place] lifts or holds trunk or limbs and provides more than half the effort. 6-Rziphfgzi-sdstwo does ALL the effort. Patient does none of the effort to complete the activity. Or, the assistance of 2 or more helpers is required for the patient to complete the activity. If activity was not attempted, code reason: 7-Patient Refused. 9-Not Applicable-not attempted and the patient did not perform the activity before the current illness, exacerbation or injury. 10-Not Attempted due to Environmental Limitations-(lack of equipment, weather restraints, etc.). 88-Not Attempted due to Medical Conditions or Safety Concerns. CGA/ SBA for all transfers. Weight Bearing Full Weight Bearing Full Weight Bearing Gait Training Distance: chair to door 16' x2, door to gym 60'x2 Walk 10 feet (QC): 4 Walk 50 ft with 2 Turns(QC): 4 Gait Persons Needed: 1 Gait Assistive Device: FWW Pt simulated what it might be like with the O2 tubing at home, and how to safely manage the tubing while ambulating and transferring. Exercises NuStep Minutes: 12 NuStep Workload: 1 Treatments Pt's O2 sats were greater than 90% throughout tx on 4L. Nustep, GT with extended O2 tubing. Assessment Current Status: Good Progress Pt tolerated tx very well. Pts O2 sats remained reamined greater than 90 % throughout tx. PT Alf Goals Tax Manager Public Goals PT Tax Manager Public Goals Time Frame: Feb 25, 2022 Roll Left & Right (QC): 6 Sit to Lying (QC): 6 Lying-Sitting on Side/Bed(QC): 6 Sit to Stand (QC): 6 Chair/Fym-fy-Kisgm Xfer(QC): 6 Toilet Transfer (QC): 6 Car Transfer (QC): 6 Does the Patient Walk: Yes Walk 10 feet (QC): 6 Walk 50ft with 2 Turns (QC): 6 Walk 150 ft (QC): 6 Walking 10ft on Uneven Surface: 6 1 Step (curb) (QC): 6 4 Steps (QC): 6 12 Steps (QC): 6 Picking up an Object (QC): 6 Does the Pt use WC or Scooter?: No Wheel 50 feet with 2 turns (QC: 9 Type: N/A Wheel 150 feet: 9 Type: N/A PT Plan Problem List Problem List: Activity Tolerance Treatment/Plan Treatment Plan: Continue Plan of Care Treatment Plan: Bed Mobility, Concurrent Therapy, Education, Functional Activity Francesca, Functional Strength, Group Therapy, Gait, Safety, Therapeutic Exercise, Transfers Treatment Duration: Feb 25, 2022 Frequency: At least 5 of 7 days/Wk (IRF) Estimated Hrs Per Day: 1.5 hours per day Patient and/or Family Agrees t: Yes Safety Risks/Education Patient Education: Gait Training, Transfer Techniques, Correct Positioning, Safety Issues Teaching Recipient: Patient Teaching Methods: Demonstration, Discussion Response to Teaching: Verbalize Understanding, Return Demonstration Time/GCodes Time In: 1100 Time Out: 1130 Total Billed Treatment Time: 30 Total Billed Treatment 1,EX 15, GT 15. KYMBERLY SANCHEZ INFORMATION DELIVERY ANALYST Feb 05, 2022 11:44
[2022-02-05 19:51] VITALS: BP 106/62
[2022-02-05] MEDS: BACLOFEN 10 MG (LIORESAL) TAB PO PRN (21:25)
[2022-02-06] MEDS: HYDROcodone/APAP 7.5 MG/325 MG (LORTAB, LORCET PLUS) TABLET PO PRN ×4 (03:15→20:20)
[2022-02-06 05:31] LABS: HEMATOCRIT 27 % (40-54); HEMOGLOBIN 9.1 g/dL (13.3-17.7); MEAN CORPUSCULAR HEMOGLOBIN 37 pg (25-34); MEAN CORPUSCULAR HGB CONC 33 g/dL (32-36); MEAN CORPUSCULAR VOLUME 111 fL (80-99); MEAN PLATELET VOLUME 9.5 fL (9.0-12.2); PLATELET COUNT 367 10^3/uL (130-400); WHITE BLOOD COUNT 10.6 10^3/uL (4.3-11.0)
[2022-02-06 05:42] LABS: POTASSIUM 2.9 MMOL/L (3.6-5.0)
[2022-02-06 05:47] LABS: CREATININE SERUM 0.56 MG/DL (0.60-1.30)
[2022-02-06 05:50] LABS: MAGNESIUM 1.8 MG/DL (1.6-2.4)
[2022-02-06] MEDS: MULTIVIT W/MINERALS TAB (THERAGRAN M) PO SCH (06:57)
[2022-02-06] MEDS: KCL 10 MEQ TAB (MICRO K) PO SCH (06:57)
[2022-02-06] MEDS: CATHETER FLUSH 10 ML SYR IVP SCH ×3 (06:57→22:23)
[2022-02-06] MEDS: MAGNESIUM OXIDE (MAG-OX)400 MG TAB PO SCH (06:57)
[2022-02-06] MEDS: RT-ALBUTEROL/IPRATROPIUM 3 ML (DUONEB) VIAL INH SCH ×3 (07:11→22:00)
--- NOTE | 2022-02-06 07:41 | PM&R Progress Note ---
Subjective HPI/CC On Admission Date Seen by Provider: Feb 06, 2022 Time Seen by Provider: 12:30 Subjective/Events-last exam 02/06/2022: Patient doing very well Still having dental issues Will call Dr. Puri office on Tuesday to get an appointment JERAMIE upon discharge Soft diet ordered by Dr. Ibrahim No pain reported 02/05/2022: Bowel movements are improved Overall he is moving around really well Still distended Clear liquids will remain per Dr. Ibrahim Still at risk for total colectomy 02/04/2022: Patient doing a little better Clear liquids until tomorrow per Dr. Ibrahim Bowels are starting to move Pain is improved Tuesday discharge plan 02/03/2022: Patient still having abdominal issues Colonic decompression again today Unable to work with therapy as much because the abdominal distention Shortness of breath from diaphragm elevation 02/02/22: Patient walking pretty well Colonoscopy decompression has helped tremendously and had a large BM yesterday evening Pain is still an issue which will be until ribs heal Alcoholism has placed him at major risks the issues he is currently having previously had 02/01/22: Pt may have endoscopy to decompress colon there is confusion between Dr Solis and call coverage Dr Ibrahim whether it is required of not Pt has excuses for everything and seems to be very detrimental in his motivation Had a long talk with the at the bedside that no indication that end of life is near but he could will himself to I recommended to grind it out and continue with therapy and work everyday to get improved and get home, out of the hospital and to quit having a poor attitude on approach Labs are within normal limits 01/31/2022: Patient having more abdominal distention Magnesium citrate and enema did not really result in much results Supportive care will continue Abdominal x-ray ordered showing colonic distention Dr. Ibrahim consulted may require endoscope for decompression Minimizing pain medications priority 01/30/22: Patient handling things well Multiple complaints about pain issues Left rib fractures will take time to heal Checked meds and labs 01/29/2022: Pt is doing pretty well Hemoglobin is 7.7 PICC line will be provided since he has poor venous access IV iron initiated Heart rate is 118 Small bowel movement yesterday, gave him all the laxatives Review of Systems General: Fatigue, Malaise Objective Exam Vital Signs Vital Signs Date Time Temp Pulse Resp B/P (MAP) Pulse Ox O2 Delivery O2 Flow Rate FiO2 02/06/22 22:00 94 Nasal Cannula 4.00 02/06/22 20:00 37.1 88 18 107/87 (94) Capillary Refill : General Appearance: WD/WN, Anxious, Chronically ill, Mild Distress HEENT: PERRL/EOMI, Normal ENT Inspection, Pharynx Normal Neck: Full Range of Motion, Normal Inspection, Non Tender, Supple, Carotid Bruit Respiratory: Chest Non Tender, Lungs Clear, Normal Breath Sounds, No Accessory Muscle Use, No Respiratory Distress Cardiovascular: No Edema, No Gallop, No JVD, No Murmur, Normal Peripheral Pulses, Tachycardia Gastrointestinal: Normal Bowel Sounds, No Organomegaly, No Pulsatile Mass, Non Tender, Soft Rectal: Deferred Back: Normal Inspection, No CVA Tenderness, No Vertebral Tenderness Extremity: Normal Capillary Refill, Normal Inspection, Normal Range of Motion, Non Tender, No Calf Tenderness, No Pedal Edema Neurologic/Psychiatric: Alert, Oriented x3, Normal Mood/Affect, electric transfer operator II-XII Norm as Tested, Motor Weakness (Left-sided weakness upper extremity > lower extremity) Skin: Normal Color, Warm/Dry Lymphatic: No Adenopathy Results/Procedures Lab Patient resulted labs reviewed. FIM Transfers Therapy Code Descriptions/Definitions Functional [place] Measure: 0=Not Assessed/NA 4=Minimal Assistance 1=Total Assistance 5=Supervision or Setup 2=Maximal Assistance 6=Modified [place] 3=Moderate Assistance 7=Complete IndependenceSCALE: Activities may be completed with or without assistive devices. 0-Xhyfvtguig-abrsupg completes the activity by him/herself with no assistance from a helper. 5-Set-up or Clean-up Assistance-helper sets up or cleans up; patient completes activity. [place] assists only prior to or following the activity. 4-Supervision or Touching Assistance-helper provides verbal cues and/or touching/steadying and/or contact guard assistance as patient completes activity. Assistance may be provided throughout the activity or intermittently. 3-Partial/Moderate Assistance-helper does LESS THAN HALF the effort. [place] lifts, holds or supports trunk or limbs, but provides less than half the effort. 2-Substantial/Maximal Assistance-helper does MORE THAN HALF the effort. [place] lifts or holds trunk or limbs and provides more than half the effort. 8-Tslpzmeri-qtcgzv does ALL the effort. Patient does none of the effort to complete the activity. Or, the assistance of 2 or more helpers is required for the patient to complete the activity. If activity was not attempted, code reason: 7-Patient Refused. 9-Not Applicable-not attempted and the patient did not perform the activity before the current illness, exacerbation or injury. 10-Not Attempted due to Environmental Limitations-(lack of equipment, weather restraints, etc.). 88-Not Attempted due to Medical Conditions or Safety Concerns. Roll Left to Right (QC): 6 Sit to Lying (QC): 6 Sit to Stand (QC): 4 Chair/Tmf-ik-Lwvod Xfer(QC): 4 Car Transfer (QC): 4 (CGA) Gait Training Does the Patient Walk?: Yes Distance: chair to door 16' x2, door to gym 60'x2 Walk 10 feet (QC): 4 Walk 50 ft with 2 Turns(QC): 4 Walk 150 ft (QC): 5 Walking 10ft/uneven surface-QC: 4 Gait Persons Needed: 1 Gait Assistive Device: FWW Wheelchair Training Does the Pt Use a Wheelchair?: No Wheel 50 ft with 2 turns (QC): 9 Wheel 150 ft (QC): 9 Type of Wheelchair: N/A Stair Training 1 Step (curb) (QC): 4 4 Steps (QC): 4 12 Steps (QC): 88 Balance Picking up an Object (QC): 88 (Due to pt diminished balance, unsafe to perform at this time.) ADL-Treatment Eating (QC): 5 Oral Hygiene (QC): 6 Bathing Location: L Arm, R Arm, L Upper Leg, R Upper Leg, L Lower Leg (including foot), R Lower Leg (including foot), Chest, Abdomen, Buttocks, Perineal Area Shower/Bathe Self (QC): 6 Upper Body Dressing (QC): 5 Lower Body Dressing (QC): 4 On/Off Footwear (QC): 3 Toileting Hygiene (QC): 4 Toilet Transfer (QC): 4 Assessment/Plan Assessment and Plan Assess & Plan/Chief Complaint Assessment: Debility following fall with left-sided rib fractures and splenic laceration Prior CVA with worsening left-sided weakness Multiple falls at home recently Alcoholism Anxiety Tachycardia Acute blood loss anemia Gout COPD Colonic distention with obstipation consulted Dr. Ibrahim 01/31/2022 status post colonic decompression 02/01/2022 with good results and resolution of constipation but then recurred requiring another decompression on 02/03/2022 now resolved Plan: Aggressive rehab Supportive care Monitor heart rate 01/29/2022: Supportive care Monitor hemoglobin Iron infusions 01/30/22: Pain management Monitor closely 01/31/2022: Appreciate Dr. Ibrahim Clear liquids 02/01/22: Colonic distention management 02/02/2022: Appreciate Dr. Ibrahim Supportive care 02/03/2022: Colonic decompression acute Checked meds and labs 02/04/2022: Bowel regimen will continue Supportive care 02/05/2022: Supportive care Bowel regimen 02/06/2022: Supportive care Advance diet (1) Left-sided weakness Status: Acute (2) Spleen laceration Status: Acute (3) Hypertension Status: Chronic (4) Neuropathy Status: Chronic (5) Anxiety Status: Chronic (6) Gout (7) COPD (chronic obstructive pulmonary disease) (8) Alcoholism Status: Chronic HARDY CAMPBELL DO Feb 06, 2022 07:41
[2022-02-06] MEDS: FOLIC ACID 1 MG TAB PO SCH (07:54)
[2022-02-06] MEDS: ATENOLOL 50 MG (TENORMIN) TAB PO SCH (07:54)
[2022-02-06] MEDS: PANTOPRAZOLE 40 MG (PROTONIX) TAB PO SCH (07:54)
[2022-02-06 07:55] VITALS: BP 100/52
[2022-02-06] MEDS: LORazepam 0.5 MG (ATIVAN) TABLET PO PRN ×2 (08:06→23:18)
--- NOTE | 2022-02-06 08:55 | Physical Therapy Daily Note ---
PT Daily Note-Current Subjective Pt reports that he has been up 3x to walk since he was last seen with therapy yesterday. Mild rib and abdominal pain noted with supine to sit. Pain Numeric Pain Scale: 3 Location Body Site: Abdomen Pain Description: Ache, Dull Comment: Secondary pain in (L) ribs, 3/10 pain rating Mental Status Patient Orientation: Person, Place, Time, Situation Attachments: Oxygen Transfers SCALE: Activities may be completed with or without assistive devices. 8-Rivgtwligs-locgrcv completes the activity by him/herself with no assistance from a helper. 5-Set-up or Clean-up Assistance-helper sets up or cleans up; patient completes activity. [place] assists only prior to or following the activity. 4-Supervision or Touching Assistance-helper provides verbal cues and/or touching/steadying and/or contact guard assistance as patient completes activity. Assistance may be provided throughout the activity or intermittently. 3-Partial/Moderate Assistance-helper does LESS THAN HALF the effort. [place] li fts, holds or supports trunk or limbs, but provides less than half the effort. 2-Substantial/Maximal Assistance-helper does MORE THAN HALF the effort. [place] lifts or holds trunk or limbs and provides more than half the effort. 9-Kskmapiuw-easmcg does ALL the effort. Patient does none of the effort to complete the activity. Or, the assistance of 2 or more helpers is required for the patient to complete the activity. If activity was not attempted, code reason: 7-Patient Refused. 9-Not Applicable-not attempted and the patient did not perform the activity before the current illness, exacerbation or injury. 10-Not Attempted due to Environmental Limitations-(lack of equipment, weather restraints, etc.). 88-Not Attempted due to Medical Conditions or Safety Concerns. Roll Left & Right (QC): 5 Sit to Lying (QC): 5 Lying to Sitting/Side of Bed(Q: 5 Sit to Stand (QC): 5 Chair/Xbs-fw-Lrlvo Xfer(QC): 5 Toilet Transfer (QC): 5 Weight Bearing Full Weight Bearing Full Weight Bearing Gait Training Does the Patient Walk?: Yes Distance: 80ft, 100ft Walk 10 feet (QC): 6 Walk 50 ft with 2 Turns(QC): 6 Gait Persons Needed: 1 Gait Assistive Device: FWW Exercises Supine Ex: LE Protocol Supine Reps: 15 Assessment Current Status: Good Progress Pt was more (I) with bed mobility, transfer, and ambulation. Limited by dyspnea. PT Usp Goals Product Support Engineer Goals PT Product Support Engineer Goals Time Frame: Feb 25, 2022 Roll Left & Right (QC): 6 Sit to Lying (QC): 6 Lying-Sitting on Side/Bed(QC): 6 Sit to Stand (QC): 6 Chair/Ymy-kw-Ozrwj Xfer(QC): 6 Toilet Transfer (QC): 6 Car Transfer (QC): 6 Does the Patient Walk: Yes Walk 10 feet (QC): 6 Walk 50ft with 2 Turns (QC): 6 Walk 150 ft (QC): 6 Walking 10ft on Uneven Surface: 6 1 Step (curb) (QC): 6 4 Steps (QC): 6 12 Steps (QC): 6 Picking up an Object (QC): 6 Does the Pt use WC or Scooter?: No Wheel 50 feet with 2 turns (QC: 9 Type: N/A Wheel 150 feet: 9 Type: N/A PT Plan Treatment/Plan Treatment Plan: Continue Plan of Care Treatment Plan: Bed Mobility, Concurrent Therapy, Education, Functional Activity Francesca, Functional Strength, Group Therapy, Gait, Safety, Therapeutic Exercise, Transfers Treatment Duration: Feb 25, 2022 Frequency: At least 5 of 7 days/Wk (IRF) Estimated Hrs Per Day: 1.5 hours per day Patient and/or Family Agrees t: Yes Time/GCodes Time In: 0810 Time Out: 0840 Total Billed Treatment Time: 30 Total Billed Treatment 1, ex, 10, gt 20 JULIO HERNANDEZ PT Feb 06, 2022 08:54
--- NOTE | 2022-02-06 09:30 | Diagnostic Imaging Report ---
INDICATION: Abdominal pain and distention. COMPARISON: 02/04/2022. DISCUSSION: Supine and upright views of the abdomen were obtained. Left pleural effusion with left lung base opacities and air bronchograms are stable. Trace right pleural effusion is noted. No pneumatosis or pneumoperitoneum. There are large and small bowel gas filled loops again noted throughout the abdomen diffusely, again likely a mild ileus. No constipation. No high-grade obstruction. Avascular necrosis is again noted within the bilateral femoral heads. IMPRESSION: Stable mild gaseous distention of the large and small bowel, likely ileus. Dictated by: Dictated on workstation # [id number]
--- NOTE | 2022-02-06 10:59 | Progress Note - Surgery ---
Subjective Date Seen by a Provider: Feb 06, 2022 Time Seen by a Provider: 10:37 Subjective/Events-last exam Passing flatus. Ambulating. Tolerating clears. Abdomen less distended. No new complaints. Potassium down. kub gaseous distention of bowel. Objective Exam Vital Signs Date Time Temp Pulse Resp B/P (MAP) Pulse Ox O2 Delivery O2 Flow Rate FiO2 02/06/22 07:55 37.1 97 18 100/52 (68) 97 Nasal Cannula 3.00 02/06/22 07:18 93 Nasal Cannula 4.00 02/05/22 21:28 95 Nasal Cannula 4.00 02/05/22 21:25 97 Nasal Cannula 3.00 02/05/22 19:51 37.0 101 20 106/62 (77) 97 Nasal Cannula 4.00 02/05/22 15:44 95 Nasal Cannula 4.00 Capillary Refill : General Appearance: No Apparent Distress, Anxious, Chronically ill HEENT: PERRL/EOMI, Normal ENT Inspection, Pharynx Normal Neck: Full Range of Motion, Normal Inspection, Non Tender Respiratory: Chest Non Tender, No Accessory Muscle Use, No Respiratory Distress Cardiovascular: No JVD, Normal Peripheral Pulses, Tachycardia Gastrointestinal: distended (less); No tenderness Extremity: Normal Capillary Refill, Normal Range of Motion, Non Tender, No Calf Tenderness, Pedal Edema (slight) Neurologic/Psychiatric: Alert, Oriented x3, Normal Mood/Affect, Motor Weakness (Left-sided weakness upper extremity > lower extremity) Skin: Normal Color, Warm/Dry Lymphatic: No Adenopathy Results Lab Laboratory Tests 02/06/22 05:15: White Blood Count 10.6, Red Blood Count 2.48L, Hemoglobin 9.1L, Hematocrit 27L, Mean Corpuscular Volume 111H, Mean Corpuscular Hemoglobin 37H, Mean Corpuscular Hemoglobin Concent 33, Red Cell Distribution Width 15.2H, Platelet Count 367, Mean Platelet Volume 9.5, Sodium Level 137, Potassium Level 2.9L, Chloride Level 102, Carbon Dioxide Level 23, Anion Gap 12, Blood Urea Nitrogen 8, Creatinine 0.56L, Estimat Glomerular Filtration Rate 114, BUN/Creatinine Ratio 14, Glucose Level 105, Calcium Level 8.0L, Magnesium Level 1.8 Assessment/Plan Assessment/Plan Assessment/Plan Abdominal distention/constipation Ileuscolonic S/p colonoscopic decompressive 3/28 Recent same level fall with left rib fx 10-12 and grade 2-3 splenic laceration treated conservatively Prior CVA with worsening left-sided weakness Alcoholism Anxiety Acute blood loss anemia Gout COPD Less distended and passing more flatus, will advance to soft diet Continue PT and ambulation, Patient instructed to try to limit narcotic use. Emphasized to pt that continued ambulation and PT/OT will be of benefit to him Pt passing gas and stool on own. I feel if he increases activity he will continue to improve. If doesn't will need colectomy. Hold laxatives and stool softeners as these could contribute to perforation ASAF TANG DO Feb 06, 2022 10:59
[2022-02-06] MEDS ORDERED: NS IV 500 ML 500 ML IV ONE (11:30)
[2022-02-06] MEDS ORDERED: NS IV 500 ML 500 ML ONE (11:32)
[2022-02-06] MEDS: POTASSIUM CL 10MEQ/50ML IVPB 50 ML IV SCH ×3 (11:35→13:37)
[2022-02-06 20:00] VITALS: BP 107/87
[2022-02-07] MEDS: HYDROcodone/APAP 7.5 MG/325 MG (LORTAB, LORCET PLUS) TABLET PO PRN ×4 (03:23→20:13)
[2022-02-07] MEDS: KCL 10 MEQ TAB (MICRO K) PO SCH (06:37)
[2022-02-07] MEDS: MAGNESIUM OXIDE (MAG-OX)400 MG TAB PO SCH (06:37)
[2022-02-07] MEDS: MULTIVIT W/MINERALS TAB (THERAGRAN M) PO SCH (06:37)
[2022-02-07] MEDS: CATHETER FLUSH 10 ML SYR IVP SCH ×3 (06:39→22:01)
--- NOTE | 2022-02-07 06:56 | PM&R Progress Note ---
Subjective HPI/CC On Admission Date Seen by Provider: Feb 07, 2022 Time Seen by Provider: 13:00 Subjective/Events-last exam 02/07/2022: Patient needs dentist appointment this week Discharge plan for Tuesday Bowels not moving today Laxatives given as scheduled No other concerns 02/06/2022: Patient doing very well Still having dental issues Will call Dr. Puri office on Tuesday to get an appointment JERAMIE upon discharge Soft diet ordered by Dr. Ibrahim No pain reported 02/05/2022: Bowel movements are improved Overall he is moving around really well Still distended Clear liquids will remain per Dr. Ibrahim Still at risk for total colectomy 02/04/2022: Patient doing a little better Clear liquids until tomorrow per Dr. Ibrahim Bowels are starting to move Pain is improved Tuesday discharge plan 02/03/2022: Patient still having abdominal issues Colonic decompression again today Unable to work with therapy as much because the abdominal distention Shortness of breath from diaphragm elevation 02/02/22: Patient walking pretty well Colonoscopy decompression has helped tremendously and had a large BM yesterday evening Pain is still an issue which will be until ribs heal Alcoholism has placed him at major risks the issues he is currently having previously had 02/01/22: Pt may have endoscopy to decompress colon there is confusion between Dr Solis and call coverage Dr Ibrahim whether it is required of not Pt has excuses for everything and seems to be very detrimental in his motivation Had a long talk with the at the bedside that no indication that end of life is near but he could will himself to I recommended to grind it out and continue with therapy and work everyday to get improved and get home, out of the hospital and to quit having a poor attitude on approach Labs are within normal limits 01/31/2022: Patient having more abdominal distention Magnesium citrate and enema did not really result in much results Supportive care will continue Abdominal x-ray ordered showing colonic distention Dr. Ibrahim consulted may require endoscope for decompression Minimizing pain medications priority 01/30/22: Patient handling things well Multiple complaints about pain issues Left rib fractures will take time to heal Checked meds and labs 01/29/2022: Pt is doing pretty well Hemoglobin is 7.7 PICC line will be provided since he has poor venous access IV iron initiated Heart rate is 118 Small bowel movement yesterday, gave him all the laxatives Review of Systems General: Fatigue, Malaise Objective Exam Vital Signs Vital Signs Date Time Temp Pulse Resp B/P (MAP) Pulse Ox O2 Delivery O2 Flow Rate FiO2 02/07/22 21:00 Nasal Cannula 3.00 02/07/22 20:00 37.2 94 20 114/61 (78) 97 Capillary Refill : General Appearance: WD/WN, Anxious, Chronically ill, Mild Distress HEENT: PERRL/EOMI, Normal ENT Inspection, Pharynx Normal Neck: Full Range of Motion, Normal Inspection, Non Tender, Supple, Carotid Bruit Respiratory: Chest Non Tender, Lungs Clear, Normal Breath Sounds, No Accessory Muscle Use, No Respiratory Distress Cardiovascular: No Edema, No Gallop, No JVD, No Murmur, Normal Peripheral Pulses, Tachycardia Gastrointestinal: Normal Bowel Sounds, No Organomegaly, No Pulsatile Mass, Non Tender, Soft Rectal: Deferred Back: Normal Inspection, No CVA Tenderness, No Vertebral Tenderness Extremity: Normal Capillary Refill, Normal Inspection, Normal Range of Motion, Non Tender, No Calf Tenderness, No Pedal Edema Neurologic/Psychiatric: Alert, Oriented x3, Normal Mood/Affect, blindstitch lining feller II-XII Norm as Tested, Motor Weakness (Left-sided weakness upper extremity > lower e xtremity) Skin: Normal Color, Warm/Dry Lymphatic: No Adenopathy Results/Procedures Lab Laboratory Tests 02/07/22 12:30 Patient resulted labs reviewed. FIM Transfers Therapy Code Descriptions/Definitions Functional [place] Measure: 0=Not Assessed/NA 4=Minimal Assistance 1=Total Assistance 5=Supervision or Setup 2=Maximal Assistance 6=Modified [place] 3=Moderate Assistance 7=Complete IndependenceSCALE: Activities may be completed with or without assistive devices. 2-Inwusxswye-qpffrdq completes the activity by him/herself with no assistance from a helper. 5-Set-up or Clean-up Assistance-helper sets up or cleans up; patient completes activity. [place] assists only prior to or following the activity. 4-Supervision or Touching Assistance-helper provides verbal cues and/or touc christian/steadying and/or contact guard assistance as patient completes activity. Assistance may be provided throughout the activity or intermittently. 3-Partial/Moderate Assistance-helper does LESS THAN HALF the effort. [place] lifts, holds or supports trunk or limbs, but provides less than half the effort. 2-Substantial/Maximal Assistance-helper does MORE THAN HALF the effort. [place] lifts or holds trunk or limbs and provides more than half the effort. 6-Hhjelqusq-owogsu does ALL the effort. Patient does none of the effort to complete the activity. Or, the assistance of 2 or more helpers is required for the patient to complete the activity. If activity was not attempted, code reason: 7-Patient Refused. 9-Not Applicable-not attempted and the patient did not perform the activity be fore the current illness, exacerbation or injury. 10-Not Attempted due to Environmental Limitations-(lack of equipment, weather restraints, etc.). 88-Not Attempted due to Medical Conditions or Safety Concerns. Roll Left to Right (QC): 5 Sit to Lying (QC): 5 Sit to Stand (QC): 5 Chair/Jqy-vb-Dvrwy Xfer(QC): 5 Car Transfer (QC): 4 (CGA) Gait Training Does the Patient Walk?: Yes Distance: 80ft, 100ft Walk 10 feet (QC): 6 Walk 50 ft with 2 Turns(QC): 6 Walk 150 ft (QC): 5 Walking 10ft/uneven surface-QC: 4 Gait Persons Needed: 1 Gait Assistive Device: FWW Wheelchair Training Does the Pt Use a Wheelchair?: No Wheel 50 ft with 2 turns (QC): 9 Wheel 150 ft (QC): 9 Type of Wheelchair: N/A Stair Training 1 Step (curb) (QC): 4 4 Steps (QC): 4 12 Steps (QC): 88 Balance Picking up an Object (QC): 88 (Due to pt diminished balance, unsafe to perform at this time.) ADL-Treatment Eating (QC): 5 Oral Hygiene (QC): 6 Bathing Location: L Arm, R Arm, L Upper Leg, R Upper Leg, L Lower Leg (including foot), R Lower Leg (including foot), Chest, Abdomen, Buttocks, Perineal Area Shower/Bathe Self (QC): 6 Upper Body Dressing (QC): 5 Lower Body Dressing (QC): 4 On/Off Footwear (QC): 3 Toileting Hygiene (QC): 4 Toilet Transfer (QC): 4 Assessment/Plan Assessment and Plan Assess & Plan/Chief Complaint Assessment: Debility following fall with left-sided rib fractures and splenic laceration Prior CVA with worsening left-sided weakness Multiple falls at home recently Alcoholism Anxiety Tachycardia Acute blood loss anemia Gout COPD Colonic distention with obstipation consulted Dr. Ibrahim 01/31/2022 status post colonic decompression 02/01/2022 with good results and resolution of constipation but then recurred requiring another decompression on 02/03/2022 now resolved Plan: Aggressive rehab Supportive care Monitor heart rate 01/29/2022: Supportive care Monitor hemoglobin Iron infusions 01/30/22: Pain management Monitor closely 01/31/2022: Appreciate Dr. Ibrahim Clear liquids 02/01/22: Colonic distention management 02/02/2022: Appreciate Dr. Ibrahim Supportive care 02/03/2022: Colonic decompression acute Checked meds and labs 02/04/2022: Bowel regimen will continue Supportive care 02/05/2022: Supportive care Bowel regimen 02/06/2022: Supportive care Advance diet 02/07/2022: Supportive care Needs dental appointment this week (1) Left-sided weakness Status: Acute (2) Spleen laceration Status: Acute (3) Hypertension Status: Chronic (4) Neuropathy Status: Chronic (5) Anxiety Status: Chronic (6) Gout (7) COPD (chronic obstructive pulmonary disease) (8) Alcoholism Status: Chronic HARDY CAMPBELL DO Feb 07, 2022 06:56
[2022-02-07] MEDS: PANTOPRAZOLE 40 MG (PROTONIX) TAB PO SCH (07:16)
[2022-02-07] MEDS: FOLIC ACID 1 MG TAB PO SCH (07:16)
[2022-02-07] MEDS: ATENOLOL 50 MG (TENORMIN) TAB PO SCH (07:16)
[2022-02-07] MEDS: LORazepam 0.5 MG (ATIVAN) TABLET PO PRN (07:17)
[2022-02-07] MEDS: IRON SUCROSE 200 MG/10 ML (VENOFER) VIAL IV SCH (07:17)
[2022-02-07 07:46] VITALS: BP 125/63
[2022-02-07] MEDS: RT-ALBUTEROL/IPRATROPIUM 3 ML (DUONEB) VIAL INH SCH ×3 (08:09→19:18)
--- NOTE | 2022-02-07 09:53 | Diagnostic Imaging Report ---
INDICATION: Followup abdominal distention. EXAMINATION: Abdomen on 02/07/2022. COMPARISON: 02/06/2022. FINDINGS: There is scattered air and stool throughout the colon to the rectosigmoid. There are no dilated loops of bowel. There is no free air. Minimal prominence of the transverse colon is noted with findings of mild constipation. There are degenerative changes in the hips. IMPRESSION: Nonspecific nonobstructed bowel gas pattern with findings of mild constipation. Dictated by: Dictated on workstation # [id number]
[2022-02-07 12:35] LABS: HEMATOCRIT 31 % (40-54); HEMOGLOBIN 10.2 g/dL (13.3-17.7); MEAN CORPUSCULAR HEMOGLOBIN 36 pg (25-34); MEAN CORPUSCULAR HGB CONC 33 g/dL (32-36); MEAN CORPUSCULAR VOLUME 111 fL (80-99); MEAN PLATELET VOLUME 9.6 fL (9.0-12.2); PLATELET COUNT 422 10^3/uL (130-400); WHITE BLOOD COUNT 11.1 10^3/uL (4.3-11.0)
--- NOTE | 2022-02-07 12:42 | Progress Note - Surgery ---
Subjective Date Seen by a Provider: Feb 07, 2022 Time Seen by a Provider: 12:37 Subjective/Events-last exam Passing flatus. Tolerating diet. Abdomen feeling okay. Denies any other complaints. Ambulating. Denies n/v fever sweats chills shortness of breath or chest pain. Objective Exam Vital Signs Date Time Temp Pulse Resp B/P (MAP) Pulse Ox O2 Delivery O2 Flow Rate FiO2 02/07/22 08:35 94 Nasal Cannula 3.00 02/07/22 08:12 96 Nasal Cannula 4.00 02/07/22 07:46 36.8 101 18 125/63 (83) 95 Nasal Cannula 3.00 02/06/22 22:00 94 Nasal Cannula 4.00 02/06/22 20:22 96 Nasal Cannula 3.00 02/06/22 20:00 37.1 88 18 107/87 (94) 96 Nasal Cannula 3.00 I & O 02/07/22 07:00 Intake Total 650 ml Balance 650 ml Capillary Refill : General Appearance: No Apparent Distress, WD/WN, Anxious, Chronically ill HEENT: PERRL/EOMI, Normal ENT Inspection, Pharynx Normal Neck: Full Range of Motion, Normal Inspection, Non Tender, Supple Respiratory: Chest Non Tender, No Accessory Muscle Use, No Respiratory Distress Cardiovascular: Regular Rate, Rhythm, No Edema, No Gallop, No JVD, No Murmur, Normal Peripheral Pulses Gastrointestinal: distended (less); No tenderness Extremity: Normal Inspection, Non Tender, Pedal Edema Neurologic/Psychiatric: Alert, Oriented x3, Normal Mood/Affect, Motor Weakness (Left-sided weakness upper extremity > lower extremity) Skin: Normal Color, Warm/Dry Lymphatic: No Adenopathy Results Lab Laboratory Tests 02/07/22 12:30: Assessment/Plan Assessment/Plan Assessment/Plan Abdominal distention/constipation Ileuscolonic S/p colonoscopic decompressive 02/01 Recent same level fall with left rib fx 10-12 and grade 2-3 splenic laceration treated conservatively Prior CVA with worsening left-sided weakness Alcoholism Anxiety Acute blood loss anemia Gout COPD hypokalemia replaced k recheck labs Less distended and passing more flatus, advanced to soft diet yesterday Continue PT and ambulation, Patient instructed to try to limit narcotic use. Emphasized to pt that continued ambulation and PT/OT will be of benefit to him Pt passing gas and stool on own. I feel if he increases activity he will continue to improve. If doesn't will need colectomy. Hold laxatives and stool softeners as these could contribute to perforation ASAF TANG DO Feb 07, 2022 12:42
[2022-02-07 12:51] LABS: CALCIUM 8.4 MG/DL (8.5-10.1); CREATININE SERUM 0.6 MG/DL (0.60-1.30); POTASSIUM 3.5 MMOL/L (3.6-5.0)
[2022-02-07] MEDS ORDERED: GLYCERIN ADULT SUPPOSITORY PR ONE (17:15)
[2022-02-07 20:00] VITALS: BP 114/61
[2022-02-08] MEDS: HYDROcodone/APAP 7.5 MG/325 MG (LORTAB, LORCET PLUS) TABLET PO PRN ×3 (02:47→17:10)
[2022-02-08 05:57] LABS: BASOPHILS # (AUTO) 0.1 10^3/uL (0.0-0.1); BASOPHILS % (AUTO) 1 % (0-10); EOSINOPHILS # (AUTO) 0.4 10^3/uL (0.0-0.3); EOSINOPHILS % (AUTO) 4 % (0-10); HEMATOCRIT 28 % (40-54); HEMOGLOBIN 9.2 g/dL (13.3-17.7); LYMPHOCYTES # (AUTO) 1.4 10^3/uL (1.0-4.0); LYMPHOCYTES % (AUTO) 13 % (12-44); MEAN CORPUSCULAR HEMOGLOBIN 37 pg (25-34); MEAN CORPUSCULAR HGB CONC 33 g/dL (32-36); MEAN CORPUSCULAR VOLUME 112 fL (80-99); MEAN PLATELET VOLUME 9.7 fL (9.0-12.2); MONOCYTES # (AUTO) 0.9 10^3/uL (0.0-1.0); MONOCYTES % (AUTO) 8 % (0-12); NEUTROPHILS # (AUTO) 7.8 10^3/uL (1.8-7.8); NEUTROPHILS % (AUTO) 74 % (42-75); PLATELET COUNT 361 10^3/uL (130-400); WHITE BLOOD COUNT 10.6 10^3/uL (4.3-11.0)
[2022-02-08 06:15] LABS: ALBUMIN 2.2 GM/DL (3.2-4.5); POTASSIUM 3.5 MMOL/L (3.6-5.0)
[2022-02-08 06:16] LABS: CALCIUM 8.2 MG/DL (8.5-10.1)
[2022-02-08 06:17] LABS: TOTAL PROTEIN 5.8 GM/DL (6.4-8.2)
[2022-02-08 06:21] LABS: CREATININE SERUM 0.6 MG/DL (0.60-1.30)
--- NOTE | 2022-02-08 06:25 | PM&R Progress Note ---
Subjective HPI/CC On Admission Date Seen by Provider: Feb 08, 2022 Time Seen by Provider: 09:00 Subjective/Events-last exam 02/08/2022: Pt is doing pretty well Seen in the shower Dentist appointment will be made as an outpatient Mag Citrate was given by Dr. Ibrahim Changing pain meds to q 8 hours Magnesium level will be checked 02/07/2022: Patient needs dentist appointment this week Discharge plan for Tuesday Bowels not moving today Laxatives given as scheduled No other concerns 02/06/2022: Patient doing very well Still having dental issues Will call Dr. Puri office on Tuesday to get an appointment JERAMIE upon discharge Soft diet ordered by Dr. Ibrahim No pain reported 02/05/2022: Bowel movements are improved Overall he is moving around really well Still distended Clear liquids will remain per Dr. Ibrahim Still at risk for total colectomy 02/04/2022: Patient doing a little better Clear liquids until tomorrow per Dr. Ibrahim Bowels are starting to move Pain is improved Tuesday discharge plan 02/03/2022: Patient still having abdominal issues Colonic decompression again today Unable to work with therapy as much because the abdominal distention Shortness of breath from diaphragm elevation 02/02/22: Patient walking pretty well Colonoscopy decompression has helped tremendously and had a large BM yesterday evening Pain is still an issue which will be until ribs heal Alcoholism has placed him at major risks the issues he is currently having previously had 02/01/22: Pt may have endoscopy to decompress colon there is confusion between Dr Solis and call coverage Dr Ibrahim whether it is required of not Pt has excuses for everything and seems to be very detrimental in his motivation Had a long talk with the at the bedside that no indication that end of life is near but he could will himself to I recommended to grind it out and continue with therapy and work everyday to get improved and get home, out of the hospital and to quit having a poor attitude on approach Labs are within normal limits 01/31/2022: Patient having more abdominal distention Magnesium citrate and enema did not really result in much results Supportive care will continue Abdominal x-ray ordered showing colonic distention Dr. Ibrahim consulted may require endoscope for decompression Minimizing pain medications priority 01/30/22: Patient handling things well Multiple complaints about pain issues Left rib fractures will take time to heal Checked meds and labs 01/29/2022: Pt is doing pretty well Hemoglobin is 7.7 PICC line will be provided since he has poor venous access IV iron initiated Heart rate is 118 Small bowel movement yesterday, gave him all the laxatives Review of Systems General: Fatigue, Malaise Gastrointestinal: Abdominal Pain, Constipation Objective Exam Vital Signs Vital Signs Date Time Temp Pulse Resp B/P (MAP) Pulse Ox O2 Delivery O2 Flow Rate FiO2 02/08/22 21:08 98 Nasal Cannula 3.00 02/08/22 20:19 37.5 98 18 103/57 (72) Capillary Refill : General Appearance: No Apparent Distress, WD/WN, Anxious, Chronically ill HEENT: PERRL/EOMI, Normal ENT Inspection, Pharynx Normal Neck: Full Range of Motion, Normal Inspection, Non Tender, Supple, Carotid Bruit Respiratory: Chest Non Tender, Lungs Clear, Normal Breath Sounds, No Accessory Muscle Use, No Respiratory Distress Cardiovascular: No Edema, No Gallop, No JVD, No Murmur, Normal Peripheral Puls es, Tachycardia Gastrointestinal: Normal Bowel Sounds, No Organomegaly, No Pulsatile Mass, Non Tender, Soft Rectal: Deferred Back: Normal Inspection, No CVA Tenderness, No Vertebral Tenderness Extremity: Normal Capillary Refill, Normal Inspection, Normal Range of Motion, Non Tender, No Calf Tenderness, No Pedal Edema Neurologic/Psychiatric: Alert, Oriented x3, Normal 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 FIM Transfers Therapy Code Descriptions/Definitions Functional [place] Measure: 0=Not Assessed/NA 4=Minimal Assistance 1=Total Assistance 5=Supervision or Setup 2=Maximal Assistance 6=Modified [place] 3=Moderate Assistance 7=Complete IndependenceSCALE: Activities may be completed with or without assistive devices. 4-Hwqvejdmeo-hyqnpln completes the activity by him/herself with no assistance from a helper. 5-Set-up or Clean-up Assistance-helper sets up or cleans up; patient completes activity. [place] assists only prior to or following the activity. 4-Supervision or Touching Assistance-helper provides verbal cues and/or touching/steadying and/or contact guard assistance as patient completes activity. Assistance may be provided throughout the activity or intermittently. 3-Partial/Moderate Assistance-helper does LESS THAN HALF the effort. [place] lifts, holds or supports trunk or limbs, but provides less than half the effort. 2-Substantial/Maximal Assistance-helper does MORE THAN HALF the effort. [place] lifts or holds trunk or limbs and provides more than half the effort. 0-Ixntqjwmz-kkonqp does ALL the effort. Patient does none of the effort to complete the activity. Or, the assistance of 2 or more helpers is required for the patient to complete the activity. If activity was not attempted, code reason: 7-Patient Refused. 9-Not Applicable-not attempted and the patient did not perform the activity before the current illness, exacerbation or injury. 10-Not Attempted due to Environmental Limitations-(lack of equipment, weather restraints, etc.). 88-Not Attempted due to Medical Conditions or Safety Concerns. Roll Left to Right (QC): 5 Sit to Lying (QC): 5 Sit to Stand (QC): 5 Chair/Mii-sc-Plnih Xfer(QC): 5 Car Transfer (QC): 4 (CGA) Gait Training Does the Patient Walk?: Yes Distance: 80ft, 100ft Walk 10 feet (QC): 6 Walk 50 ft with 2 Turns(QC): 6 Walk 150 ft (QC): 5 Walking 10ft/uneven surface-QC: 4 Gait Persons Needed: 1 Gait Assistive Device: FWW Wheelchair Training Does the Pt Use a Wheelchair?: No Wheel 50 ft with 2 turns (QC): 9 Wheel 150 ft (QC): 9 Type of Wheelchair: N/A Stair Training 1 Step (curb) (QC): 4 4 Steps (QC): 4 12 Steps (QC): 88 Balance Picking up an Object (QC): 88 (Due to pt diminished balance, unsafe to perform at this time.) ADL-Treatment Eating (QC): 5 Oral Hygiene (QC): 6 Bathing Location: L Arm, R Arm, L Upper Leg, R Upper Leg, L Lower Leg (including foot), R Lower Leg (including foot), Chest, Abdomen, Buttocks, Perineal Area Shower/Bathe Self (QC): 6 Upper Body Dressing (QC): 5 Lower Body Dressing (QC): 4 On/Off Footwear (QC): 3 Toileting Hygiene (QC): 4 Toilet Transfer (QC): 4 Assessment/Plan Assessment and Plan Assess & Plan/Chief Complaint Assessment: Debility following fall with left-sided rib fractures and splenic laceration Prior CVA with worsening left-sided weakness Multiple falls at home recently Alcoholism Anxiety Tachycardia Acute blood loss anemia Gout COPD Colonic distention with obstipation consulted Dr. Ibrahim 01/31/2022 status post colonic decompression 02/01/2022 with good results and resolution of constipation but then recurred requiring another decompression on 02/03/2022 now resolved but then recurred due to continued use of pain medication on too frequent basis causing narcotic bowel Plan: Aggressive rehab Supportive care Monitor heart rate 01/29/2022: Supportive care Monitor hemoglobin Iron infusions 01/30/22: Pain management Monitor closely 01/31/2022: Appreciate Dr. Ibrahim Clear liquids 02/01/22: Colonic distention management 02/02/2022: Appreciate Dr. Ibrahim Supportive care 02/03/2022: Colonic decompression acute Checked meds and labs 02/04/2022: Bowel regimen will continue Supportive care 02/05/2022: Supportive care Bowel regimen 02/06/2022: Supportive care Advance diet 02/07/2022: Supportive care Needs dental appointment this week 02/08/2022: Monitor bowel function Discharge delay until bowels move (1) Left-sided weakness Status: Acute (2) Spleen laceration Status: Acute (3) Hypertension Status: Chronic (4) Neuropathy Status: Chronic (5) Anxiety Status: Chronic (6) Gout (7) COPD (chronic obstructive pulmonary disease) (8) Alcoholism Status: Chronic HARDY CAMPBELL DO Feb 08, 2022 06:25
[2022-02-08 06:28] LABS: BILIRUBIN,TOTAL 0.9 MG/DL (0.1-1.0)
[2022-02-08] MEDS: MULTIVIT W/MINERALS TAB (THERAGRAN M) PO SCH (06:36)
[2022-02-08] MEDS: MAGNESIUM OXIDE (MAG-OX)400 MG TAB PO SCH (06:36)
[2022-02-08] MEDS: KCL 10 MEQ TAB (MICRO K) PO SCH (06:36)
[2022-02-08] MEDS: CATHETER FLUSH 10 ML SYR IVP SCH ×3 (06:45→20:19)
--- NOTE | 2022-02-08 07:15 | Progress Note - Surgery ---
SHAMIKA RIOS A MED STUDENT 02/08/22 0715: Subjective Date Seen by a Provider: Feb 08, 2022 Time Seen by a Provider: 07:00 Subjective/Events-last exam Pt up in chair this morning eating clear liquid breakfast. Pt reports he felt epigastric abdominal pain over the weekend and had some constipation. Pt reports feeling discouraged because he had to go from soft diet to clear liquid d/t this pain and constipation, but he understands its necessary. Yesterday a suppository was placed and the pt had a medium soft formed stool and the abdominal pain lessened. Pt confirms passing gas. Pt denies fever, chills, CP, palpitations, N/V. Review of Systems General: No Chills, No Fatigue HEENT: No Head Aches, No Visual Changes Pulmonary: No Dyspnea, No Cough Cardiovascular: No: Chest Pain, Palpitations Gastrointestinal: Abdominal Pain, Constipation; No: Nausea, Vomiting Genitourinary: No Dysuria, No Frequency Neurological: No: Weakness, Numbness Objective Exam Vital Signs Date Time Temp Pulse Resp B/P (MAP) Pulse Ox O2 Delivery O2 Flow Rate FiO2 02/07/22 21:00 Nasal Cannula 3.00 02/07/22 20:00 37.2 94 20 114/61 (78) 97 Nasal Cannula 3.00 02/07/22 19:21 99 Nasal Cannula 3.00 02/07/22 08:35 94 Nasal Cannula 3.00 02/07/22 08:12 96 Nasal Cannula 4.00 02/07/22 07:46 36.8 101 18 125/63 (83) 95 Nasal Cannula 3.00 Capillary Refill : General Appearance: No Apparent Distress, WD/WN, Chronically ill HEENT: PERRL/EOMI, Normal ENT Inspection, Pharynx Normal Neck: Full Range of Motion, Normal Inspection, Non Tender, Supple Respiratory: Chest Non Tender, Lungs Clear, Normal Breath Sounds, No Accessory Muscle Use, No Respiratory Distress Cardiovascular: No JVD, Tachycardia Gastrointestinal: abnormal bowel sounds (hypoactive bowel sounds), distended; No tenderness Extremity: Normal Capillary Refill, Normal Inspection, Normal Range of Motion, Non Tender, No Calf Tenderness, Pedal Edema (3+pitting edema) Neurologic/Psychiatric: Alert, Oriented x3, Normal 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, 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, Motor Weakness (Left-sided weakness upper extremity > lower extremity) Skin: Normal Color, Warm/Dry Lymphatic: No Adenopathy Results Lab Laboratory Tests 02/07/22 12:30: White Blood Count 11.1H, Red Blood Count 2.80L, Hemoglobin 10.2L, Hematocrit 31L , Mean Corpuscular Volume 111H, Mean Corpuscular Hemoglobin 36H, Mean Corpuscular Hemoglobin Concent 33, Red Cell Distribution Width 15.3H, Platelet Count 422H, Mean Platelet Volume 9.6, Sodium Level 138, Potassium Level 3.5L, Chloride Level 102, Carbon Dioxide Level 22, Anion Gap 14, Blood Urea Nitrogen 8, Creatinine 0.60, Estimat Glomerular Filtration Rate 111, BUN/Creatinine Ratio 13, Glucose Level 107H, Calcium Level 8.4L 02/08/22 05:40: White Blood Count 10.6, Red Blood Count 2.52L, Hemoglobin 9.2L, Hematocrit 28L, Mean Corpuscular Volume 112H, Mean Corpuscular Hemoglobin 37H, Mean Corpuscular Hemoglobin Concent 33, Red Cell Distribution Width 15.2H, Platelet Count 361, Mean Platelet Volume 9.7, Sodium Level 138, Potassium Level 3.5L, Chloride Level 104, Carbon Dioxide Level 22, Anion Gap 12, Blood Urea Nitrogen 8, Creatinine 0.60, Estimat Glomerular Filtration Rate 111, BUN/Creatinine Ratio 13, Glucose Level 98, Calcium Level 8.2L, Immature Granulocyte % (Auto) 1, Neutrophils (%) (Auto) 74, Lymphocytes (%) (Auto) 13, Monocytes (%) (Auto) 8, Eosinophils (%) (Auto) 4, Basophils (%) (Auto) 1, Neutrophils # (Auto) 7.8, Lymphocytes # (Auto) 1.4, Monocytes # (Auto) 0.9, Eosinophils # (Auto) 0.4H, Basophils # (Auto) 0.1, Immature Granulocyte # (Auto) 0.1, Corrected Calcium 9.6, Total Bilirubin 0.9, Aspartate Amino Transf (AST/SGOT) 42H, Alanine Aminotransferase (ALT/SGPT) 16, Alkaline Phosphatase 107, Total Protein 5.8L, Albumin 2.2L Assessment/Plan Assessment/Plan Assessment/Plan Abdominal distention/constipation Ileuscolonic S/p colonoscopic decompressive 02/01 Recent same level fall with left rib fx 10-12 and grade 2-3 splenic laceration treated conservatively Prior CVA with worsening left-sided weakness Alcoholism Anxiety Acute blood loss anemia Gout COPD hypokalemia replaced k, stable at 3.5 Less distended and passing more flatus, had some constipation, so went back to clear liquid diet and had successful BM with suppository placement KUB on 02/06 showed no constipation, 4/3 showed constipation Continue PT and ambulation, Patient instructed to try to limit narcotic use. Emphasized to pt that continued ambulation and PT/OT will be of benefit to him Pt passing gas and stool on own. I feel if he increases activity he will continue to improve. If doesn't will need colectomy. Restart colace, senna and miralax to help with constipation ASAF IBRAHIM DO 02/08/22 1253: Subjective Subjective/Events-last exam Suppository helped have stool. Still feels constipated. Passing flatus. Still distended. On clears. Denies n/v fever sweats chills shortness of breath or chest pain. Objective Exam General Appearance: No Apparent Distress, Chronically ill HEENT: PERRL/EOMI, Normal ENT Inspection Neck: Normal Inspection Respiratory: Chest Non Tender, No Accessory Muscle Use, No Respiratory Distress Gastrointestinal: non tender, distended Extremity: Normal Inspection, Non Tender, Pedal Edema (3+pitting edema) Neurologic/Psychiatric: Alert, Oriented x3 Skin: Normal Color, Warm/Dry Lymphatic: No Adenopathy Assessment/Plan Assessment/Plan Assessment/Plan Abdominal distention/constipation Ileuscolonic S/p colonoscopic decompressive 02/01 Recent same level fall with left rib fx 10-12 and grade 2-3 splenic laceration treated conservatively Prior CVA with worsening left-sided weakness Alcoholism Anxiety Acute blood loss anemia Gout COPD hypokalemia replaced k, stable at 3.5 Less distended and passing more flatus, had some constipation, so went back to clear liquid diet and had successful BM with suppository placement KUB on 02/06 showed no constipation, 4/3 showed constipation Continue PT and ambulation, Patient instructed to try to limit narcotic use. Emphasized to pt that continued ambulation and PT/OT will be of benefit to him Pt passing gas and stool on own. I feel if he increases activity he will continue to improve. If doesn't will need colectomy. Will give bottle of mac citrate to help with constipation. Supervisory-Addendum Brief Verification & Attestation Participated in pt care: history, MDM, physical Personally performed: exam, history, MDM, supervision of care Care discussed with: Medical Student Procedures: n/a Results interpretation: Verified all documentation Verification and Attestation of Medical Student E/M Service A medical student performed and documented this service in my presence. I reviewed and verified all information documented by the medical student and made modifications to such information, when appropriate. I personally performed the physical exam and medical decision making. Asaf Ibrahim, Feb 08, 2022,12:53 SHAMIKA RIOS MED STUDENT Feb 08, 2022 07:15 ASAF IBRAHIM DO Feb 08, 2022 12:53
[2022-02-08] MEDS: RT-ALBUTEROL/IPRATROPIUM 3 ML (DUONEB) VIAL INH SCH ×3 (07:30→21:08)
[2022-02-08 07:44] VITALS: BP 116/59
--- NOTE | 2022-02-08 08:32 | Cardiology Progress Note ---
Subjective Date Seen by Provider: Feb 08, 2022 Time Seen by Provider: 08:30 Subjective/Events-last exam Patient sitting up in chair, denies any chest pain, states abdominal pain improving and able to pass gas. Review of Systems General: No Chills, No Night Sweats, No Fatigue, No Malaise, No Appetite, No Other HEENT: No Head Aches, No Visual Changes, No Eye Pain, No Ear Pain, No Dysphasia, No Sinus Congestion, No Post Nasal Drip, No Sore Throat, No Other Pulmonary: No Dyspnea, No Cough, No Pleuritic Chest Pain, No Other Cardiovascular: No: Chest Pain, Palpitations, Orthopnea, Paroxysmal Noc. Dyspnea, Edema, Lt Headedness, Other Objective-Cardiology Exam Last Set of Vital Signs Vital Signs 02/08/22 02/08/22 07:44 09:00 Temp 36.8 Pulse 100 Resp 20 B/P (MAP) 116/59 (78) Pulse Ox 94 O2 Delivery Nasal Cannula O2 Flow Rate 3.00 General: Alert, Oriented X3, Cooperative, Mild Distress HEENT: Atraumatic, PERRLA Neck: Supple, No JVD Lungs: Clear to Auscultation, Normal Air Movement Heart: Regular Rate, Normal S1, Normal S2, No Murmurs Abdomen: Normal Bowel Sounds, No Tenderness Extremities: Normal Pulses, Other (periperhal edema ) Skin: No Rashes, No Breakdown, No Significant Lesion Neuro: Normal Speech, Sensation Intact Psych/Mental Status: Mental Status NL, Mood NL Results Lab Laboratory Tests 02/07/22 12:30 02/08/22 05:40 A/P-Cardiology Admission Diagnosis Sinus Tachycardia Splenic laceration with perisplenic hematoma Abdominal and pelvic hemoperitoneum History of CVA Assessment/Plan Sinus Tachycardia, continue on atenolol, continue to monitor heart rate. Colonic ileus Patient s/p splenic laceration with perisplenic hematoma and hemoperitoneum with left rib 10-12 fx Magnesium citrate and enema unsuccessful General surgery consulted, underwent colonic decompression twice and rectal tube placement. KUB showed improvement. Currently on liquid diet. Managed by Dr. Ibrahim Splenic laceration with perisplenic hematoma and hemoperitoneum Continue with conservative management per general surgery Continue to hold Aspirin Non-displaced left 10-12th left rib fracture, continue with conservative stewart gement Hypertension, controlled, maintained at home on amlodipine 5 and atenolol 25, currently managed by medical team Hyperlipidemia, maintained at home on atorvastatin 80, currently managed by de dical team History of CVA , Cryptogenic stroke. Patient maintained at home on aspirin, currently holding due to splenic laceration Continue to monitor telemetry History of loop monitor implantation done for cryptogenic stroke. We will continue to monitor and interpret rhythm Hx of Alcoholism managed by medical team Supervisory-Addendum Brief Supervisory Addendum Participated in pt care: history, MDM, physical Personally performed: exam, history, MDM Care discussed with: AMADOR Results interpretation: Verified all documentation Notes: Patient was seen and evaluated with Nina, examination performed, management plan was discussed, agree with the current scribed note, I made few changes to the note using Italic font Patient was seen at bedside, denied any chest pain, feeling better Had a bowel movement last night, hyperactive bowels Continue on current medications and monitor NINA FERRARA Feb 08, 2022 08:32 ALEXIA FAIRCHILD MD Feb 08, 2022 09:42
[2022-02-08] MEDS: PANTOPRAZOLE 40 MG (PROTONIX) TAB PO SCH (08:36)
[2022-02-08] MEDS: FOLIC ACID 1 MG TAB PO SCH (08:36)
[2022-02-08] MEDS: ATENOLOL 50 MG (TENORMIN) TAB PO SCH (08:36)
[2022-02-08] MEDS ORDERED: MAGNESIUM CITRATE 300 ML BTL PO NR (09:29)
--- NOTE | 2022-02-08 10:45 | Occupational Ther Daily Note ---
OT Current Status-Daily Note Subjective Pt alert, sitting in recliner. Pt agrees to therapy. Pt anxious about pain meds schedule. No c/o pain at this time. Mental Status/Objective Patient Orientation: Person, Place, Time, Situation Attachments: IV (PICC), Oxygen (4L) ADL-Treatment Pt agrees to shower. Pt doffs R/L sock by self. Pt ambulates to bathroom and transfers into shower with SBA for safety. Sitting on shower bench, pt completes shower independently using grabbars, hand held shower and LH sponge. After set up, pt able to don shirt by self. Pt able to use figure 4 tech to thread L LE into pants then reaches down to foot thread R LE, pulls up legs then stands to hike pants over hips. Sitting at sink, pt completes oral care independently. Pt takes increased time to complete all tasks due to SOA and lengthy recovery breaks. After therapy, pt sitting in recliner with call light/phone in reach. All needs met in room. Therapy Code Descriptions/Definitions Functional [place] Measure: 0=Not Assessed/NA 4=Minimal Assistance 1=Total Assistance 5=Supervision or Setup 2=Maximal Assistance 6=Modified [place] 3=Moderate Assistance 7=Complete IndependenceSCALE: Activities may be completed with or without assistive devices. 9-Pcdvrgvwhc-oslvifu completes the activity by him/herself with no assistance from a helper. 5-Set-up or Clean-up Assistance-helper sets up or cleans up; patient completes activity. [place] assists only prior to or following the activity. 4-Supervision or Touching Assistance-helper provides verbal cues and/or touching/steadying and/or contact guard assistance as patient completes activity. Assistance may be provided throughout the activity or intermittently. 3-Partial/Moderate Assistance-helper does LESS THAN HALF the effort. [place] lifts, holds or supports trunk or limbs, but provides less than half the effort. 2-Substantial/Maximal Assistance-helper does MORE THAN HALF the effort. [place] lifts or holds trunk or limbs and provides more than half the effort. 5-Lvrtjayti-rieiju does ALL the effort. Patient does none of the effort to complete the activity. Or, the assistance of 2 or more helpers is required for the patient to complete the activity. If activity was not attempted, code reason: 7-Patient Refused. 9-Not Applicable-not attempted and the patient did not perform the activity before the current illness, exacerbation or injury. 10-Not Attempted due to Environmental Limitations-(lack of equipment, weather restraints, etc.). 88-Not Attempted due to Medical Conditions or Safety Concerns. Eating (QC): 6 (Per clinical judgment.) Oral Hygiene (QC): 6 Shower/Bathe Self (QC): 6 Upper Body Dressing (QC): 5 Lower Body Dressing (QC): 5 On/Off Footwear: 3 (Due to increased swelling pt required assist to don L sock, pt donned R sock by self.) Toileting Hygiene (QC): 6 (per clinical judgment, pt able to complete by self.) Toilet Transfer (QC): 6 (per clinical judgment) OT Short Term Goals Short Term Goals Time Frame: Feb 16, 2022 Toileting hygiene: 4 Shower/bathe self: 4 Lower body dressin Putting on/taking off footwear: 4 OT Diagnostics Tech Goals Shelter Goals Time Frame: Feb 26, 2022 Eating (QC): 6 Oral Hygiene (QC): 6 Toileting Hygiene (QC): 6 Shower/Bathe Self (QC): 6 Upper Body Dressing (QC): 6 Lower Body Dressing (QC): 6 On/Off Footwear (QC): 6 Additional Goals: 1-Demonstrate ADL Tasks, 2-Verbalize Understanding, 3- ImproveStrength/Francesca 1=Demonstrate adherence to instructed precautions during ADL tasks. 2=Patient will verbalize/demonstrate understanding of assistive devices/modifications for ADL. 3=Patient will improve strength/tolerance for activity to enable patient to perform ADL's. OT Education/Plan Problem List/Assessment Assessment: Decreased Activ Tolerance, Impaired Self-Care Skills, Restricted Funct UE ROM Discharge Recommendations Plan/Recommendations: Continue POC Treatment Plan/Plan of Care Patient would benefit from OT for education, treatment and training to promote independence in ADL's, mobility, safety and/or upper extremity function for ADL's. Plan of Care: ADL Retraining, Functional Mobility, Group Exercise/Act as Ind, UE Funct Exercise/Act, UE Neuromus Re-Ed/Coord Treatment Duration: Feb 26, 2022 Frequency: At least 5 of 7 days/Wk (IRF) Estimated Hrs Per Day: 1.5 hours per day Rehab Potential: Fair Time/GCodes Start Time: 09:00 Stop Time: 10:30 Total Time Billed (hr/min): 90 Billed Treatment Time 1 visit-ADL 6 (90 min) SUNIL DAMON Feb 08, 2022 10:45
--- NOTE | 2022-02-08 12:08 | Physical Therapy Daily Note ---
PT Daily Note-Current Subjective Pt sitting in recliner upon arrival. Pt agrees to PT. Pain Location Body Site: Abdomen Pain Description: Ache Comment: Pt has abdominal desention. Mental Status Patient Orientation: Person, Place, Time, Situation Attachments: Oxygen (3L ) Transfers SCALE: Activities may be completed with or without assistive devices. 4-Syfbitzpjj-ayfyovm completes the activity by him/herself with no assistance from a helper. 5-Set-up or Clean-up Assistance-helper sets up or cleans up; patient completes activity. [place] assists only prior to or following the activity. 4-Supervision or Touching Assistance-helper provides verbal cues and/or touchi ng/steadying and/or contact guard assistance as patient completes activity. Assistance may be provided throughout the activity or intermittently. 3-Partial/Moderate Assistance-helper does LESS THAN HALF the effort. [place] lifts, holds or supports trunk or limbs, but provides less than half the effort. 2-Substantial/Maximal Assistance-helper does MORE THAN HALF the effort. [place] lifts or holds trunk or limbs and provides more than half the effort. 0-Rakqfhhmr-pjrymq does ALL the effort. Patient does none of the effort to complete the activity. Or, the assistance of 2 or more helpers is required for the patient to complete the activity. If activity was not attempted, code reason: 7-Patient Refused. 9-Not Applicable-not attempted and the patient did not perform the activity before the current illness, exacerbation or injury. 10-Not Attempted due to Environmental Limitations-(lack of equipment, weather restraints, etc.). 88-Not Attempted due to Medical Conditions or Safety Concerns. Roll Left & Right (QC): 6 Sit to Lying (QC): 6 Lying to Sitting/Side of Bed(Q: 6 Sit to Stand (QC): 5 Chair/Vlm-wv-Wnjvq Xfer(QC): 5 Toilet Transfer (QC): 5 Weight Bearing Full Weight Bearing Full Weight Bearing Gait Training Does the Patient Walk?: Yes Distance: 150' x2, 60' Walk 10 feet (QC): 5 Walk 50 ft with 2 Turns(QC): 5 Walk 150 ft (QC): 5 Walking 10ft/uneven surface-QC: 5 Gait Persons Needed: 1 Gait Assistive Device: FWW Wheelchair Training Does the Pt Use a Wheelchair?: No Stair Training Stair Training: Handrails/: 2 handrails #of Steps: 4 1 Step (curb) (QC): 5 4 Steps (QC): 5 12 Steps (QC): 7 Stairs: Pattern: Step to Balance Picking up an Object (QC): 88 Special Test Comments Not tested due to abdominal swelling and discomfort. Exercises NuStep Minutes: 15 NuStep Workload: 4 Treatments ([id number]) Pt completed QC scoring items listed above. Pt takes RB as needed for fatigue and SOA. Pt uses NuStep for 15m at WL 4. Pt returns to room to rest, uses BR and eat lunch. All needs met, call light in hand. ([id number]) Pt finishes QC scoring items including car transfer and bed mobility. Pt resting in recliner at end of tx. All needs met, call light in hand. Assessment Current Status: Good Progress Pt demonstrates some difficulty managing O2 line and often finds himself wound in O2 line. Pt improves in afternoon tx and multiple times self corrects which direction he is turning to prevent getting wound in O2 line. 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 Fpc Goals PT Fpc Goals Time Frame: Feb 25, 2022 Roll Left & Right (QC): 6 Sit to Lying (QC): 6 Lying-Sitting on Side/Bed(QC): 6 Sit to Stand (QC): 6 Chair/Nwh-do-Garua Xfer(QC): 6 Toilet Transfer (QC): 6 Car Transfer (QC): 6 Does the Patient Walk: Yes Walk 10 feet (QC): 6 Walk 50ft with 2 Turns (QC): 6 Walk 150 ft (QC): 6 Walking 10ft on Uneven Surface: 6 1 Step (curb) (QC): 6 4 Steps (QC): 6 12 Steps (QC): 6 Picking up an Object (QC): 6 Does the Pt use WC or Scooter?: No Wheel 50 feet with 2 turns (QC: 9 Type: N/A Wheel 150 feet: 9 Type: N/A PT Plan Problem List Problem List: Activity Tolerance, Safety Treatment/Plan Treatment Plan: Continue Plan of Care Treatment Plan: Bed Mobility, Concurrent Therapy, Education, Functional Activity Francesca, Functional Strength, Group Therapy, Gait, Safety, Therapeutic Exercise, Transfers Treatment Duration: Feb 25, 2022 Frequency: At least 5 of 7 days/Wk (IRF) Estimated Hrs Per Day: 1.5 hours per day Patient and/or Family Agrees t: Yes Safety Risks/Education Patient Education: Correct Positioning, Safety Issues Teaching Recipient: Patient Teaching Methods: Discussion Response to Teaching: Verbalize Understanding Time/GCodes Time In: 1100 Time Out: 1200 Total Billed Treatment Time: 60 Total Billed Treatment ([id number]) 1, GT (15m), EX (15m) & FA x2 (30m) ([id number]) 1, FA x2 (30m) ANAHY ENCARNACION DUCT INSTALLER Feb 08, 2022 12:08
[2022-02-08 20:19] VITALS: BP 103/57
[2022-02-09] MEDS: HYDROcodone/APAP 7.5 MG/325 MG (LORTAB, LORCET PLUS) TABLET PO PRN ×3 (01:48→20:30)
[2022-02-09] MEDS: MAGNESIUM OXIDE (MAG-OX)400 MG TAB PO SCH (05:33)
[2022-02-09] MEDS: MULTIVIT W/MINERALS TAB (THERAGRAN M) PO SCH (05:33)
[2022-02-09] MEDS: KCL 10 MEQ TAB (MICRO K) PO SCH (05:33)
[2022-02-09] MEDS: CATHETER FLUSH 10 ML SYR IVP SCH ×3 (05:33→20:31)
--- NOTE | 2022-02-09 05:54 | PM&R Progress Note ---
Subjective HPI/CC On Admission Date Seen by Provider: Feb 09, 2022 Time Seen by Provider: 09:00 Subjective/Events-last exam 02/09/2022: Pt is doing dramatically better Mag Citrate cleared out and evacuated the bowels Minimal pain medication taken No home oxygen needed Discharge planned for tomorrow 02/08/2022: Pt is doing pretty well Seen in the shower Dentist appointment will be made as an outpatient Mag Citrate was given by Dr. Ibrahim Changing pain meds to q 8 hours Magnesium level will be checked 02/07/2022: Patient needs dentist appointment this week Discharge plan for Tuesday Bowels not moving today Laxatives given as scheduled No other concerns 02/06/2022: Patient doing very well Still having dental issues Will call Dr. Puri office on Tuesday to get an appointment JERAMIE upon discharge Soft diet ordered by Dr. Ibrahim No pain reported 02/05/2022: Bowel movements are improved Overall he is moving around really well Still distended Clear liquids will remain per Dr. Ibrahim Still at risk for total colectomy 02/04/2022: Patient doing a little better Clear liquids until tomorrow per Dr. Ibrahim Bowels are starting to move Pain is improved Tuesday discharge plan 02/03/2022: Patient still having abdominal issues Colonic decompression again today Unable to work with therapy as much because the abdominal distention Shortness of breath from diaphragm elevation 02/02/22: Patient walking pretty well Colonoscopy decompression has helped tremendously and had a large BM yesterday evening Pain is still an issue which will be until ribs heal Alcoholism has placed him at major risks the issues he is currently having previously had 02/01/22: Pt may have endoscopy to decompress colon there is confusion between Dr Solis and call coverage Dr Ibrahim whether it is required of not Pt has excuses for everything and seems to be very detrimental in his motivation Had a long talk with the at the bedside that no indication that end of life is near but he could will himself to I recommended to grind it out and continue with therapy and work everyday to get improved and get home, out of the hospital and to quit having a poor attitude on approach Labs are within normal limits 01/31/2022: Patient having more abdominal distention Magnesium citrate and enema did not really result in much results Supportive care will continue Abdominal x-ray ordered showing colonic distention Dr. bIrahim consulted may require endoscope for decompression Minimizing pain medications priority 01/30/22: Patient handling things well Multiple complaints about pain issues Left rib fractures will take time to heal Checked meds and labs 01/29/2022: Pt is doing pretty well Hemoglobin is 7.7 PICC line will be provided since he has poor venous access IV iron initiated Heart rate is 118 Small bowel movement yesterday, gave him all the laxatives Review of Systems General: Fatigue, Malaise Objective Exam Vital Signs Vital Signs Date Time Temp Pulse Resp B/P (MAP) Pulse Ox O2 Delivery O2 Flow Rate FiO2 02/09/22 21:00 94 Room Air 02/09/22 19:34 37.8 93 16 104/71 (82) 02/09/22 14:35 0.00 Capillary Refill : General Appearance: No Apparent Distress, WD/WN, Anxious, Chronically ill HEENT: PERRL/EOMI, Normal ENT Inspection, Pharynx Normal Neck: Full Range of Motion, Normal Inspection, Non Tender, Supple, Carotid Br uit Respiratory: Chest Non Tender, Lungs Clear, Normal Breath Sounds, No Accessory Muscle Use, No Respiratory Distress Cardiovascular: No Edema, No Gallop, No JVD, No Murmur, Normal Peripheral Pulses, Tachycardia Gastrointestinal: Normal Bowel Sounds, No Organomegaly, No Pulsatile Mass, Non Tender, Soft Rectal: Deferred Back: Normal Inspection, No CVA Tenderness, No Vertebral Tenderness Extremity: Normal Capillary Refill, Normal Inspection, Normal Range of Motion, Non Tender, No Calf Tenderness, No Pedal Edema Neurologic/Psychiatric: Alert, Oriented x3, Normal 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 FIM Transfers Therapy Code Descriptions/Definitions Functional [place] Measure: 0=Not Assessed/NA 4=Minimal Assistance 1=Total Assistance 5=Supervision or Setup 2=Maximal Assistance 6=Modified [place] 3=Moderate Assistance 7=Complete IndependenceSCALE: Activities may be completed with or without assistive devices. 7-Bzxoujdmpe-stqedzu completes the activity by him/herself with no assistance from a helper. 5-Set-up or Clean-up Assistance-helper sets up or cleans up; patient completes activity. [place] assists only prior to or following the activity. 4-Supervision or Touching Assistance-helper provides verbal cues and/or touchi ng/steadying and/or contact guard assistance as patient completes activity. Assistance may be provided throughout the activity or intermittently. 3-Partial/Moderate Assistance-helper does LESS THAN HALF the effort. [place] lifts, holds or supports trunk or limbs, but provides less than half the effort. 2-Substantial/Maximal Assistance-helper does MORE THAN HALF the effort. [place] lifts or holds trunk or limbs and provides more than half the effort. 7-Fohwnihcp-hcyzkp does ALL the effort. Patient does none of the effort to complete the activity. Or, the assistance of 2 or more helpers is required for the patient to complete the activity. If activity was not attempted, code reason: 7-Patient Refused. 9-Not Applicable-not attempted and the patient did not perform the activity before the current illness, exacerbation or injury. 10-Not Attempted due to Environmental Limitations-(lack of equipment, weather restraints, etc.). 88-Not Attempted due to Medical Conditions or Safety Concerns. Roll Left to Right (QC): 6 Sit to Lying (QC): 6 Sit to Stand (QC): 5 Chair/Msu-hn-Sspoi Xfer(QC): 5 Car Transfer (QC): 4 (CGA) Gait Training Does the Patient Walk?: Yes Distance: 150' x2, 60' Walk 10 feet (QC): 5 Walk 50 ft with 2 Turns(QC): 5 Walk 150 ft (QC): 5 Walking 10ft/uneven surface-QC: 5 Gait Persons Needed: 1 Gait Assistive Device: FWW Wheelchair Training Does the Pt Use a Wheelchair?: No Wheel 50 ft with 2 turns (QC): 9 Wheel 150 ft (QC): 9 Type of Wheelchair: N/A Stair Training Stair Training: Handrails/: 2 handrails #of Steps: 4 1 Step (curb) (QC): 5 4 Steps (QC): 5 12 Steps (QC): 7 Stairs: Pattern: Step to Balance Picking up an Object (QC): 88 ADL-Treatment Eating (QC): 6 (Per clinical judgment.) Oral Hygiene (QC): 6 Bathing Location: L Arm, R Arm, L Upper Leg, R Upper Leg, L Lower Leg (including foot), R Lower Leg (including foot), Chest, Abdomen, Buttocks, Perineal Area Shower/Bathe Self (QC): 6 Upper Body Dressing (QC): 5 Lower Body Dressing (QC): 5 On/Off Footwear (QC): 3 (Due to increased swelling pt required assist to don L sock, pt donned R sock by self.) Toileting Hygiene (QC): 6 (per clinical judgment, pt able to complete by self.) Toilet Transfer (QC): 6 (per clinical judgment) Assessment/Plan Assessment and Plan Assess & Plan/Chief Complaint Assessment: Debility following fall with left-sided rib fractures and splenic laceration Prior CVA with worsening left-sided weakness Multiple falls at home recently Alcoholism Anxiety Tachycardia Acute blood loss anemia Gout COPD Colonic distention with obstipation consulted Dr. Ibrahim 01/31/2022 status post colonic decompression 02/01/2022 with good results and resolution of constipation but then recurred requiring another decompression on 02/03/2022 now resolved but then recurred due to continued use of pain medication on too frequent basis causing narcotic bowel Plan: Aggressive rehab Supportive care Monitor heart rate 01/29/2022: Supportive care Monitor hemoglobin Iron infusions 01/30/22: Pain management Monitor closely 01/31/2022: Appreciate Dr. Ibrahim Clear liquids 02/01/22: Colonic distention management 02/02/2022: Appreciate Dr. Ibrahim Supportive care 02/03/2022: Colonic decompression acute Checked meds and labs 02/04/2022: Bowel regimen will continue Supportive care 02/05/2022: Supportive care Bowel regimen 02/06/2022: Supportive care Advance diet 02/07/2022: Supportive care Needs dental appointment this week 02/08/2022: Monitor bowel function Discharge delay until bowels move 02/09/2022: Discharge planning Dr. Ibrahim to check abdomen tomorrow (1) Left-sided weakness Status: Acute (2) Spleen laceration Status: Acute (3) Hypertension Status: Chronic (4) Neuropathy Status: Chronic (5) Anxiety Status: Chronic (6) Gout (7) COPD (chronic obstructive pulmonary disease) (8) Alcoholism Status: Chronic HARDY CAMPBELL DO Feb 09, 2022 05:54
--- NOTE | 2022-02-09 07:46 | Progress Note - Surgery ---
SHAMIKA RIOS A MED STUDENT 02/09/22 0746: Subjective Date Seen by a Provider: Feb 09, 2022 Time Seen by a Provider: 07:15 Subjective/Events-last exam Pt up in chair this morning, reports he is feeling better. Pt reports he had three semi solid BMs last night and is passing gas. Pt is discouraged because today was his discharge date, but that has been put on hold d/t GI issues. Pt denies fever, chills, CP, palpitations, N/V, dysuria. Review of Systems General: No Chills, No Fatigue HEENT: No Head Aches, No Visual Changes Pulmonary: No Dyspnea, No Cough Cardiovascular: No: Chest Pain, Palpitations Gastrointestinal: Abdominal Pain; No: Nausea, Vomiting Genitourinary: No Dysuria, No Frequency Neurological: No: Weakness, Numbness Objective Exam Vital Signs Date Time Temp Pulse Resp B/P (MAP) Pulse Ox O2 Delivery O2 Flow Rate FiO2 02/08/22 21:08 98 Nasal Cannula 3.00 02/08/22 20:23 Nasal Cannula 3.00 02/08/22 20:19 37.5 98 18 103/57 (72) 96 Nasal Cannula 3.00 02/08/22 14:19 97 Nasal Cannula 3.00 02/08/22 09:00 94 Nasal Cannula 3.00 02/08/22 07:44 36.8 100 20 116/59 (78) 97 Nasal Cannula 3.00 Capillary Refill : General Appearance: No Apparent Distress, WD/WN, Chronically ill HEENT: PERRL/EOMI, Normal ENT Inspection, Pharynx Normal Neck: Full Range of Motion, Normal Inspection, Non Tender, Supple Respiratory: Chest Non Tender, Lungs Clear, Normal Breath Sounds, No Accessory Muscle Use, No Respiratory Distress Cardiovascular: No Edema, No Gallop, No Murmur, Tachycardia Gastrointestinal: non tender, distended (improved) Extremity: Normal Capillary Refill, Normal Range of Motion, Non Tender, No Calf Tenderness, Pedal Edema (3+ pitting) Neurologic/Psychiatric: Alert, Oriented x3, Normal 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, 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 Emphasized to pt that continued ambulation and PT/OT will be of benefit to him Pt passing gas and stool on own. I feel if he increases activity he will continue to improve. If doesn't will need colectomy. Repeat KUB today Mag citrate resulted in three BMs yesterday, hold this for now Restart senna and colace Advance to soft diet ASAF IBRAHIM DO 02/10/22 1300: Subjective Subjective/Events-last exam Feeling better. Having bowel function. Still with some pain but improving. Tolerating clear diet. Denies n/v fever sweats chills shortness of breath or chest pain. Objective Exam General Appearance: No Apparent Distress, Chronically ill HEENT: PERRL/EOMI, Normal ENT Inspection Neck: Normal Inspection, Non Tender Respiratory: Chest Non Tender, No Accessory Muscle Use, No Respiratory Distress Cardiovascular: No JVD, Tachycardia Gastrointestinal: non tender, distended (improved) Extremity: Non Tender, Pedal Edema (3+ pitting) Neurologic/Psychiatric: Alert, Oriented x3, Normal Mood/Affect, Motor Weakness (Left-sided weakness upper extremity > lower extremity) Skin: Normal Color, Warm/Dry Lymphatic: No Adenopathy Assessment/Plan Assessment/Plan Assessment/Plan Abdominal distention/constipation Ileuscolonic S/p colonoscopic decompressive 02/01 Recent same level fall with left rib fx 10-12 and grade 2-3 splenic laceration treated conservatively Prior CVA with worsening left-sided weakness Alcoholism Anxiety Acute blood loss anemia Gout COPD hypokalemia Continue PT and ambulation, Patient instructed to try to limit narcotic use. Emphasized to pt that continued ambulation and PT/OT will be of benefit to him Pt passing gas and stool on own. I feel if he increases activity he will continue to improve. If doesn't will need colectomy. Repeat KUB tomorrow Mag citrate resulted in three BMs yesterday, Mag citrate today Restart bowel regimen Advance to soft diet Supervisory-Addendum Brief Verification & Attestation Participated in pt care: history, MDM, physical Personally performed: exam, history, MDM, supervision of care Care discussed with: Medical Student Procedures: n/a Results interpretation: Verified all documentation Verification and Attestation of Medical Student E/M Service A medical student performed and documented this service in my presence. I reviewed and verified all information documented by the medical student and made modifications to such information, when appropriate. I personally performed the physical exam and medical decision making. Asaf Ibrahim, Feb 09, 2022,12:59 SHAMIKA RIOS MED STUDENT Feb 09, 2022 07:46 ASAF IBRAHIM DO Feb 10, 2022 13:00
[2022-02-09 07:53] VITALS: BP 109/55
--- NOTE | 2022-02-09 08:21 | Cardiology Progress Note ---
Subjective Date Seen by Provider: Feb 09, 2022 Time Seen by Provider: 08:05 Subjective/Events-last exam Patient sitting up in chair, no new complaints. Reports passing gas Objective-Cardiology Exam Last Set of Vital Signs Vital Signs 02/09/22 02/09/22 07:53 09:11 Temp 36.3 Pulse 99 Resp 16 B/P (MAP) 109/55 (73) Pulse Ox 94 O2 Delivery Nasal Cannula O2 Flow Rate 3.00 General: Alert, Oriented X3, Cooperative, Mild Distress HEENT: Atraumatic, PERRLA Neck: Supple, No JVD Lungs: Clear to Auscultation, Normal Air Movement Heart: Regular Rate, Normal S1, Normal S2, No Murmurs Abdomen: Normal Bowel Sounds, No Tenderness Extremities: Normal Pulses, Other (periperhal edema ) Skin: No Rashes, No Breakdown, No Significant Lesion Neuro: Normal Speech, Sensation Intact Psych/Mental Status: Mental Status NL, Mood NL A/P-Cardiology Admission Diagnosis Sinus Tachycardia Splenic laceration with perisplenic hematoma Abdominal and pelvic hemoperitoneum History of CVA Assessment/Plan Sinus Tachycardia, continue on atenolol, continue to monitor heart rate. Colonic ileus Patient s/p splenic laceration with perisplenic hematoma and hemoperitoneum with left rib 10-12 fx Magnesium citrate and enema unsuccessful General surgery consulted, underwent colonic decompression twice and rectal tube placement. KUB showed improvement. Currently on liquid diet. Managed by Dr. Ibrahim Splenic laceration with perisplenic hematoma and hemoperitoneum Continue with conservative management per general surgery Continue to hold Aspirin Non-displaced left 10-12th left rib fracture, continue with conservative management Hypertension, controlled, continue to monitor Hyperlipidemia, maintained at home on atorvastatin 80, currently managed by medical team History of CVA , Cryptogenic stroke. Patient maintained at home on aspirin, currently holding due to splenic lacer ation Continue to monitor telemetry History of loop monitor implantation done for cryptogenic stroke. We will continue to monitor and interpret rhythm Hx of Alcoholism managed by medical team Supervisory-Addendum Brief Supervisory Addendum Participated in pt care: history, MDM, physical Personally performed: exam, history, MDM Care discussed with: AMADOR Results interpretation: Verified all documentation Notes: Patient was seen and evaluated with Deborah, examination performed, management plan was discussed, agree with the current scribed note, I made few changes to the note using Italic font Patient was seen at bedside, sitting comfortably Reporting that he had a bowel movement yesterday, passing gas Feeling better, concerned about advancing his diet. Heart rate is better. Continue to monitor DEBORAH FERRARA Feb 09, 2022 08:21 ALEXIA FAIRCHILD MD Feb 09, 2022 10:00
[2022-02-09] MEDS: FOLIC ACID 1 MG TAB PO SCH (08:35)
[2022-02-09] MEDS: PANTOPRAZOLE 40 MG (PROTONIX) TAB PO SCH (08:36)
[2022-02-09] MEDS: ATENOLOL 50 MG (TENORMIN) TAB PO SCH (08:36)
--- NOTE | 2022-02-09 10:26 | Occupational Ther Daily Note ---
OT Current Status-Daily Note Subjective Pt alert, sitting in recliner. Pt agrees to therapy. No c/o pain. Mental Status/Objective Patient Orientation: Person, Place, Time, Situation Attachments: IV See Respiratory notes for O2 testing, pt able to stay above 90% during activity on room air. ADL-Treatment Therapy Code Descriptions/Definitions Functional [place] Measure: 0=Not Assessed/NA 4=Minimal Assistance 1=Total Assistance 5=Supervision or Setup 2=Maximal Assistance 6=Modified [place] 3=Moderate Assistance 7=Complete IndependenceSCALE: Activities may be completed with or without assistive devices. 3-Jswijtzwre-zbyveyd completes the activity by him/herself with no assistance from a helper. 5-Set-up or Clean-up Assistance-helper sets up or cleans up; patient completes activity. [place] assists only prior to or following the activity. 4-Supervision or Touching Assistance-helper provides verbal cues and/or touching/steadying and/or contact guard assistance as patient completes activity. Assistance may be provided throughout the activity or intermittently. 3-Partial/Moderate Assistance-helper does LESS THAN HALF the effort. [place] lifts, holds or supports trunk or limbs, but provides less than half the effort. 2-Substantial/Maximal Assistance-helper does MORE THAN HALF the effort. [place] lifts or holds trunk or limbs and provides more than half the effort. 9-Mufwzujil-ipjajg does ALL the effort. Patient does none of the effort to complete the activity. Or, the assistance of 2 or more helpers is required for the patient to complete the activity. If activity was not attempted, code reason: 7-Patient Refused. 9-Not Applicable-not attempted and the patient did not perform the activity before the current illness, exacerbation or injury. 10-Not Attempted due to Environmental Limitations-(lack of equipment, weather restraints, etc.). 88-Not Attempted due to Medical Conditions or Safety Concerns. Oral Hygiene (QC): 6 (Standing at sink, pt able to complete by self.) On/Off Footwear: 6 (Pt able to don/doff sock by self with increased time.) Other Treatment Pt ambulated to therapy gym. Completed B UE exercises to increase strength, activity tolerance and AROM of L UE. Arm bike completed at 15 david resistance for 10 min. Pt then completed resistive clothes pins by taking off of cone (holding cone with one hand, taking off with other hand) and placing on dowel rods then reversing sequence,1x each hand. 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 Keeping fingers and wrist in extension, pt placed palm on sponge then pressed down to work on over all strength on L UE, 15 reps. After therapy, pt sitting in recliner with call light/phone in reach. All need met in room. OT Short Term Goals Short Term Goals Time Frame: Feb 16, 2022 Toileting hygiene: 4 Shower/bathe self: 4 Lower body dressin Putting on/taking off footwear: 4 OT Reconsignment Clerk Goals Shelter Goals Time Frame: Feb 26, 2022 Eating (QC): 6 Oral Hygiene (QC): 6 Toileting Hygiene (QC): 6 Shower/Bathe Self (QC): 6 Upper Body Dressing (QC): 6 Lower Body Dressing (QC): 6 On/Off Footwear (QC): 6 Additional Goals: 1-Demonstrate ADL Tasks, 2-Verbalize Understanding, 3- ImproveStrength/Francesca 1=Demonstrate adherence to instructed precautions during ADL tasks. 2=Patient will verbalize/demonstrate understanding of assistive devices/modifications for ADL. 3=Patient will improve strength/tolerance for activity to enable patient to perform ADL's. OT Education/Plan Problem List/Assessment Assessment: Decreased Activ Tolerance, Decreased UE Strength, Impaired Self- Care Skills, Restricted Funct UE ROM Discharge Recommendations Plan/Recommendations: Continue POC Treatment Plan/Plan of Care Patient would benefit from OT for education, treatment and training to promote independence in ADL's, mobility, safety and/or upper extremity function for ADL's. Plan of Care: ADL Retraining, Functional Mobility, Group Exercise/Act as Ind, UE Funct Exercise/Act, UE Neuromus Re-Ed/Coord Treatment Duration: Feb 26, 2022 Frequency: At least 5 of 7 days/Wk (IRF) Estimated Hrs Per Day: 1.5 hours per day Rehab Potential: Fair Time/GCodes Start Time: 09:00 Stop Time: 10:00 Total Time Billed (hr/min): 60 Billed Treatment Time 1 visit-ADL 1 (15 min) EX 3 (45 min) SUNIL DAMON Feb 09, 2022 10:26
[2022-02-09] MEDS: RT-ALBUTEROL/IPRATROPIUM 3 ML (DUONEB) VIAL INH SCH ×3 (10:56→20:05)
--- NOTE | 2022-02-09 12:16 | Physical Therapy Daily Note ---
PT Daily Note-Current Subjective Pt sitting in recliner in room upon arrival. Pt agrees to PT. Pain Location: No Pain Reported Mental Status Patient Orientation: Person, Place, Time, Situation Transfers SCALE: Activities may be completed with or without assistive devices. 4-Scgquopusc-hmbrgqy completes the activity by him/herself with no assistance from a helper. 5-Set-up or Clean-up Assistance-helper sets up or cleans up; patient completes activity. [place] assists only prior to or following the activity. 4-Supervision or Touching Assistance-helper provides verbal cues and/or touching/steadying and/or contact guard assistance as patient completes activity. Assistance may be provided throughout the activity or intermittently. 3-Partial/Moderate Assistance-helper does LESS THAN HALF the effort. [place] lifts, holds or supports trunk or limbs, but provides less than half the effort. 2-Substantial/Maximal Assistance-helper does MORE THAN HALF the effort. [place] lifts or holds trunk or limbs and provides more than half the effort. 5-Byjsoylds-kjpdsm does ALL the effort. Patient does none of the effort to c omplete the activity. Or, the assistance of 2 or more helpers is required for the patient to complete the activity. If activity was not attempted, code reason: 7-Patient Refused. 9-Not Applicable-not attempted and the patient did not perform the activity before the current illness, exacerbation or injury. 10-Not Attempted due to Environmental Limitations-(lack of equipment, weather restraints, etc.). 88-Not Attempted due to Medical Conditions or Safety Concerns. Sit to Stand (QC): 5 Weight Bearing Full Weight Bearing Full Weight Bearing Gait Training Does the Patient Walk?: Yes Distance: 100' x2, 150' Walk 10 feet (QC): 5 Walk 50 ft with 2 Turns(QC): 5 Walk 150 ft (QC): 5 Gait Assistive Device: FWW Exercises Seated Therapy Exercises: Ankle pumps, Long arc quads, Hip flexion, Glut set Seated Reps: 15 NuStep Minutes: 15 NuStep Workload: 4 Treatments Pt TF to standing and amb. in hallway. Pt uses NuStep for 15m at WL 4 then after short RB, pt completes Seated Ex. Pt returns to room at en dof tx with all needs met. Resting in recliner with call light in hand. Assessment Current Status: Good Progress Pt is gaining strength as well as mobility. 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 Alf Goals PT Alf Goals Time Frame: Feb 25, 2022 Roll Left & Right (QC): 6 Sit to Lying (QC): 6 Lying-Sitting on Side/Bed(QC): 6 Sit to Stand (QC): 6 Chair/Pbw-zh-Kyazo Xfer(QC): 6 Toilet Transfer (QC): 6 Car Transfer (QC): 6 Does the Patient Walk: Yes Walk 10 feet (QC): 6 Walk 50ft with 2 Turns (QC): 6 Walk 150 ft (QC): 6 Walking 10ft on Uneven Surface: 6 1 Step (curb) (QC): 6 4 Steps (QC): 6 12 Steps (QC): 6 Picking up an Object (QC): 6 Does the Pt use WC or Scooter?: No Wheel 50 feet with 2 turns (QC: 9 Type: N/A Wheel 150 feet: 9 Type: N/A PT Plan Problem List Problem List: Activity Tolerance Treatment/Plan Treatment Plan: Continue Plan of Care Treatment Plan: Bed Mobility, Concurrent Therapy, Education, Functional Activity Francesca, Functional Strength, Group Therapy, Gait, Safety, Therapeutic Exercise, Transfers Treatment Duration: Feb 25, 2022 Frequency: At least 5 of 7 days/Wk (IRF) Estimated Hrs Per Day: 1.5 hours per day Patient and/or Family Agrees t: Yes Time/GCodes Time In: 1100 Time Out: 1200 Total Billed Treatment Time: 60 Total Billed Treatment 1, GT x2 (30m) & EX x2 (30m) ANAHY ENCARNACION SHIP FITTER Feb 09, 2022 12:16
--- NOTE | 2022-02-09 13:31 | Occupational Ther Daily Note ---
OT Current Status-Daily Note Subjective Pt was in the bathroom upon arrival, and then transferred to recliner to begin therapy. Pt agreed to tx. Mental Status/Objective Patient Orientation: Person, Place, Time ADL-Treatment Pt began tx in bathroom and completed toilet hygiene and toilet transfer, independent. Therapy Code Descriptions/Definitions Functional [place] Measure: 0=Not Assessed/NA 4=Minimal Assistance 1=Total Assistance 5=Supervision or Setup 2=Maximal Assistance 6=Modified [place] 3=Moderate Assistance 7=Complete IndependenceSCALE: Activities may be completed with or without assistive devices. 3-Dbprplxfki-nasghez completes the activity by him/herself with no assistance from a helper. 5-Set-up or Clean-up Assistance-helper sets up or cleans up; patient completes activity. [place] assists only prior to or following the activity. 4-Supervision or Touching Assistance-helper provides verbal cues and/or touching/steadying and/or contact guard assistance as patient completes activity. Assistance may be provided throughout the activity or intermittently. 3-Partial/Moderate Assistance-helper does LESS THAN HALF the effort. [place] lifts, holds or supports trunk or limbs, but provides less than half the effort. 2-Substantial/Maximal Assistance-helper does MORE THAN HALF the effort. [place] lifts or holds trunk or limbs and provides more than half the effort. 5-Fcevqqapc-djmncm does ALL the effort. Patient does none of the effort to complete the activity. Or, the assistance of 2 or more helpers is required for the patient to complete the activity. If activity was not attempted, code reason: 7-Patient Refused. 9-Not Applicable-not attempted and the patient did not perform the activity before the current illness, exacerbation or injury. 10-Not Attempted due to Environmental Limitations-(lack of equipment, weather restraints, etc.). 88-Not Attempted due to Medical Conditions or Safety Concerns. Toileting Hygiene (QC): 6 Toilet Transfer (QC): 6 Other Treatment Pt completed red theraband exercise to increase strength in BUE. Skilled instructions for correct technique, required verbal and physical cues to complete correctly. HEP given for theraband exercises, 4 exercises 2 sets 10 reps. Pt completed yellow theraband hand extension strengthening exercise on LUE, 1 set 10 reps. After session, pt sitting in recliner with call light/phone in reach. All needs met. Education OT Patient Education: Home exercise program Teaching Recipient: Patient Teaching Methods: Demonstration, Handout OT Short Term Goals Short Term Goals Time Frame: Feb 16, 2022 Toileting hygiene: 4 Shower/bathe self: 4 Lower body dressin Putting on/taking off footwear: 4 OT Rv Repairer Goals Mcc Goals Time Frame: Feb 26, 2022 Eating (QC): 6 (met) Oral Hygiene (QC): 6 (met) Toileting Hygiene (QC): 6 (met) Shower/Bathe Self (QC): 6 (met) Upper Body Dressing (QC): 6 (not met) Lower Body Dressing (QC): 6 (not et) On/Off Footwear (QC): 6 (not met) Additional Goals: 1-Demonstrate ADL Tasks, 2-Verbalize Understanding, 3- ImproveStrength/Francesca 1=Demonstrate adherence to instructed precautions during ADL tasks. 2=Patient will verbalize/demonstrate understanding of assistive devices/modifications for ADL. 3=Patient will improve strength/tolerance for activity to enable patient to perform ADL's. OT Education/Plan Problem List/Assessment Assessment: Decreased Activ Tolerance, Decreased UE Strength Discharge Recommendations Plan/Recommendations: Continue POC Treatment Plan/Plan of Care Patient would benefit from OT for education, treatment and training to promote independence in ADL's, mobility, safety and/or upper extremity function for AD L's. Plan of Care: ADL Retraining, Functional Mobility, Group Exercise/Act as Ind, UE Funct Exercise/Act, UE Neuromus Re-Ed/Coord Treatment Duration: Feb 26, 2022 Frequency: At least 5 of 7 days/Wk (IRF) Estimated Hrs Per Day: 1.5 hours per day Rehab Potential: Fair Time/GCodes Start Time: 13:00 Stop Time: 13:30 Total Time Billed (hr/min): 30 Billed Treatment Time 1 visit- 1 EX (20 min) 1 ADL (10 min) SUNIL DAMON Feb 09, 2022 13:31
--- NOTE | 2022-02-09 14:04 | Physical Therapy Daily Note ---
PT Daily Note-Current Subjective Pt sitting in recliner upon arrival. Pt reports fatigued this afternoon. Pt agrees to EX in room. Pain Location: Left Location Body Site: Side Pain Description: Ache Comment: Reported but not rated Mental Status Patient Orientation: Person, Place, Situation Transfers SCALE: Activities may be completed with or without assistive devices. 7-Ndbvxgxknh-dsycsdx completes the activity by him/herself with no assistance from a helper. 5-Set-up or Clean-up Assistance-helper sets up or cleans up; patient completes activity. [place] assists only prior to or following the activity. 4-Supervision or Touching Assistance-helper provides verbal cues and/or touching/steadying and/or contact guard assistance as patient completes activity. Assistance may be provided throughout the activity or intermittently. 3-Partial/Moderate Assistance-helper does LESS THAN HALF the effort. [place] lift s, holds or supports trunk or limbs, but provides less than half the effort. 2-Substantial/Maximal Assistance-helper does MORE THAN HALF the effort. [place] lifts or holds trunk or limbs and provides more than half the effort. 2-Ymqhdzhaz-zqbzpm does ALL the effort. Patient does none of the effort to complete the activity. Or, the assistance of 2 or more helpers is required for the patient to complete the activity. If activity was not attempted, code reason: 7-Patient Refused. 9-Not Applicable-not attempted and the patient did not perform the activity before the current illness, exacerbation or injury. 10-Not Attempted due to Environmental Limitations-(lack of equipment, weather restraints, etc.). 88-Not Attempted due to Medical Conditions or Safety Concerns. Sit to Stand (QC): 5 Weight Bearing Full Weight Bearing Full Weight Bearing Exercises Seated Therapy Exercises: Ankle pumps, Long arc quads, Hip flexion, Hip abd/add, Glut set Seated Reps: 15 Treatments Pt completes Seated Ex at recliner with a couple RB as needed. Pt rests in recliner at end of tx. All needs met, call light in hand. Assessment Current Status: Good Progress Pt fatigues and needs RB. PT [facility] Goals Shirt Line Operator Goals PT Shirt Line Operator Goals Time Frame: Feb 25, 2022 Roll Left & Right (QC): 6 Sit to Lying (QC): 6 Lying-Sitting on Side/Bed(QC): 6 Sit to Stand (QC): 6 Chair/Fmh-sk-Ydfiw Xfer(QC): 6 Toilet Transfer (QC): 6 Car Transfer (QC): 6 Does the Patient Walk: Yes Walk 10 feet (QC): 6 Walk 50ft with 2 Turns (QC): 6 Walk 150 ft (QC): 6 Walking 10ft on Uneven Surface: 6 1 Step (curb) (QC): 6 4 Steps (QC): 6 12 Steps (QC): 6 Picking up an Object (QC): 6 Does the Pt use WC or Scooter?: No Wheel 50 feet with 2 turns (QC: 9 Type: N/A Wheel 150 feet: 9 Type: N/A PT Plan Problem List Problem List: Activity Tolerance Treatment/Plan Treatment Plan: Continue Plan of Care Treatment Plan: Bed Mobility, Concurrent Therapy, Education, Functional Activity Francesca, Functional Strength, Group Therapy, Gait, Safety, Therapeutic Exercise, Transfers Treatment Duration: Feb 25, 2022 Frequency: At least 5 of 7 days/Wk (IRF) Estimated Hrs Per Day: 1.5 hours per day Patient and/or Family Agrees t: Yes Time/GCodes Time In: 1330 Time Out: 1400 Total Billed Treatment Time: 30 Total Billed Treatment 1, EX x2 (30m) ANAHY ENCARNACION ELECTRICAL WORKER Feb 09, 2022 14:04
[2022-02-09] MEDS ORDERED: MAGNESIUM CITRATE 300 ML BTL PO ONE (16:30)
[2022-02-09] MEDS: LACTULOSE SYRUP 10GM/15ML (ENULOSE) 30ML UDC PO PRN (17:52)
[2022-02-09 19:34] VITALS: BP 104/71
[2022-02-09] MEDS: polyethylene glycoL POWDER 17 GM (MIRALAX) PACK PO SCH (20:29)
[2022-02-10] MEDS: HYDROcodone/APAP 7.5 MG/325 MG (LORTAB, LORCET PLUS) TABLET PO PRN ×2 (04:49→14:44)
[2022-02-10] MEDS: MULTIVIT W/MINERALS TAB (THERAGRAN M) PO SCH (06:36)
[2022-02-10] MEDS: CATHETER FLUSH 10 ML SYR IVP SCH (06:36)
[2022-02-10] MEDS: KCL 10 MEQ TAB (MICRO K) PO SCH (06:36)
[2022-02-10] MEDS: MAGNESIUM OXIDE (MAG-OX)400 MG TAB PO SCH (06:36)
--- NOTE | 2022-02-10 07:09 | PM&R Progress Note ---
Subjective HPI/CC On Admission Date Seen by Provider: Feb 10, 2022 Subjective/Events-last exam 02/09/2022: Pt is doing dramatically better Mag Citrate cleared out and evacuated the bowels Minimal pain medication taken No home oxygen needed Discharge planned for tomorrow 02/08/2022: Pt is doing pretty well Seen in the shower Dentist appointment will be made as an outpatient Mag Citrate was given by Dr. Ibrahim Changing pain meds to q 8 hours Magnesium level will be checked 02/07/2022: Patient needs dentist appointment this week Discharge plan for Tuesday Bowels not moving today Laxatives given as scheduled No other concerns 02/06/2022: Patient doing very well Still having dental issues Will call Dr. Puri office on Tuesday to get an appointment JERAMIE upon discharge Soft diet ordered by Dr. Ibrahim No pain reported 02/05/2022: Bowel movements are improved Overall he is moving around really well Still distended Clear liquids will remain per Dr. Ibrahim Still at risk for total colectomy 02/04/2022: Patient doing a little better Clear liquids until tomorrow per Dr. Ibrahim Bowels are starting to move Pain is improved Tuesday discharge plan 02/03/2022: Patient still having abdominal issues Colonic decompression again today Unable to work with therapy as much because the abdominal distention Shortness of breath from diaphragm elevation 02/02/22: Patient walking pretty well Colonoscopy decompression has helped tremendously and had a large BM yesterday evening Pain is still an issue which will be until ribs heal Alcoholism has placed him at major risks the issues he is currently having previously had 02/01/22: Pt may have endoscopy to decompress colon there is confusion between Dr Solis and call coverage Dr Ibrahim whether it is required of not Pt has excuses for everything and seems to be very detrimental in his motivation Had a long talk with the at the bedside that no indication that end of life is near but he could will himself to I recommended to grind it out and continue with therapy and work everyday to get improved and get home, out of the hospital and to quit having a poor attitude on approach Labs are within normal limits 01/31/2022: Patient having more abdominal distention Magnesium citrate and enema did not really result in much results Supportive care will continue Abdominal x-ray ordered showing colonic distention Dr. Ibrahim consulted may require endoscope for decompression Minimizing pain medications priority 01/30/22: Patient handling things well Multiple complaints about pain issues Left rib fractures will take time to heal Checked meds and labs 01/29/2022: Pt is doing pretty well Hemoglobin is 7.7 PICC line will be provided since he has poor venous access IV iron initiated Heart rate is 118 Small bowel movement yesterday, gave him all the laxatives Objective Exam Vital Signs Vital Signs Date Time Temp Pulse Resp B/P (MAP) Pulse Ox O2 Delivery O2 Flow Rate FiO2 02/10/22 08:27 Room Air 02/10/22 07:55 37.4 110 16 110/58 (75) 92 02/09/22 14:35 0.00 Capillary Refill : General Appearance: No Apparent Distress, WD/WN, Anxious, Chronically ill HEENT: PERRL/EOMI, Normal ENT Inspection, Pharynx Normal Neck: Full Range of Motion, Normal Inspection, Non Tender, Supple, Carotid Br uit Respiratory: Chest Non Tender, Lungs Clear, Normal Breath Sounds, No Accessory Muscle Use, No Respiratory Distress Cardiovascular: No Edema, No Gallop, No JVD, No Murmur, Normal Peripheral Pulses, Tachycardia Gastrointestinal: Normal Bowel Sounds, No Organomegaly, No Pulsatile Mass, Non Tender, Soft Rectal: Deferred Back: Normal Inspection, No CVA Tenderness, No Vertebral Tenderness Extremity: Normal Capillary Refill, Normal Inspection, Normal Range of Motion, Non Tender, No Calf Tenderness, No Pedal Edema Neurologic/Psychiatric: Alert, Oriented x3, Normal 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 FIM Transfers Therapy Code Descriptions/Definitions Functional [place] Measure: 0=Not Assessed/NA 4=Minimal Assistance 1=Total Assistance 5=Supervision or Setup 2=Maximal Assistance 6=Modified [place] 3=Moderate Assistance 7=Complete IndependenceSCALE: Activities may be completed with or without assistive devices. 7-Hxlgkqekvp-tsbnqti completes the activity by him/herself with no assistance from a helper. 5-Set-up or Clean-up Assistance-helper sets up or cleans up; patient completes activity. [place] assists only prior to or following the activity. 4-Supervision or Touching Assistance-helper provides verbal cues and/or touchi ng/steadying and/or contact guard assistance as patient completes activity. Assistance may be provided throughout the activity or intermittently. 3-Partial/Moderate Assistance-helper does LESS THAN HALF the effort. [place] lifts, holds or supports trunk or limbs, but provides less than half the effort. 2-Substantial/Maximal Assistance-helper does MORE THAN HALF the effort. [place] lifts or holds trunk or limbs and provides more than half the effort. 4-Gbveaxijr-hucyyu does ALL the effort. Patient does none of the effort to complete the activity. Or, the assistance of 2 or more helpers is required for the patient to complete the activity. If activity was not attempted, code reason: 7-Patient Refused. 9-Not Applicable-not attempted and the patient did not perform the activity before the current illness, exacerbation or injury. 10-Not Attempted due to Environmental Limitations-(lack of equipment, weather restraints, etc.). 88-Not Attempted due to Medical Conditions or Safety Concerns. Roll Left to Right (QC): 6 Sit to Lying (QC): 6 Sit to Stand (QC): 5 Chair/Myp-fd-Yietn Xfer(QC): 5 Car Transfer (QC): 4 (CGA) Gait Training Does the Patient Walk?: Yes Distance: 100' x2, 150' Walk 10 feet (QC): 5 Walk 50 ft with 2 Turns(QC): 5 Walk 150 ft (QC): 5 Walking 10ft/uneven surface-QC: 5 Gait Persons Needed: 1 Gait Assistive Device: FWW Wheelchair Training Does the Pt Use a Wheelchair?: No Wheel 50 ft with 2 turns (QC): 9 Wheel 150 ft (QC): 9 Type of Wheelchair: N/A Stair Training Stair Training: Handrails/: 2 handrails #of Steps: 4 1 Step (curb) (QC): 5 4 Steps (QC): 5 12 Steps (QC): 7 Stairs: Pattern: Step to Balance Picking up an Object (QC): 88 ADL-Treatment Eating (QC): 6 (Per clinical judgment.) Oral Hygiene (QC): 6 (Standing at sink, pt able to complete by self.) Bathing Location: L Arm, R Arm, L Upper Leg, R Upper Leg, L Lower Leg (including foot), R Lower Leg (including foot), Chest, Abdomen, Buttocks, Perineal Area Shower/Bathe Self (QC): 6 Upper Body Dressing (QC): 5 Lower Body Dressing (QC): 5 On/Off Footwear (QC): 6 (Pt able to don/doff sock by self with increased time.) Toileting Hygiene (QC): 6 Toilet Transfer (QC): 6 Assessment/Plan Assessment and Plan Assess & Plan/Chief Complaint Assessment: Debility following fall with left-sided rib fractures and splenic laceration Prior CVA with worsening left-sided weakness Multiple falls at home recently Alcoholism Anxiety Tachycardia Acute blood loss anemia Gout COPD Colonic distention with obstipation consulted Dr. Ibrahim 01/31/2022 status post colonic decompression 02/01/2022 with good results and resolution of constipation but then recurred requiring another decompression on 02/03/2022 now resolved but then recurred due to continued use of pain medication on too frequent basis causing narcotic bowel Plan: Aggressive rehab Supportive care Monitor heart rate 01/29/2022: Supportive care Monitor hemoglobin Iron infusions 01/30/22: Pain management Monitor closely 01/31/2022: Appreciate Dr. Ibrahim Clear liquids 02/01/22: Colonic distention management 02/02/2022: Appreciate Dr. Ibrahim Supportive care 02/03/2022: Colonic decompression acute Checked meds and labs 02/04/2022: Bowel regimen will continue Supportive care 02/05/2022: Supportive care Bowel regimen 02/06/2022: Supportive care Advance diet 02/07/2022: Supportive care Needs dental appointment this week 02/08/2022: Monitor bowel function Discharge delay until bowels move 02/09/2022: Discharge planning Dr. Ibrahim to check abdomen tomorrow (1) Left-sided weakness Status: Acute (2) Spleen laceration Status: Acute (3) Hypertension Status: Chronic (4) Neuropathy Status: Chronic (5) Anxiety Status: Chronic (6) Gout (7) COPD (chronic obstructive pulmonary disease) (8) Alcoholism Status: Chronic HARDY CAMPBELL DO Feb 10, 2022 07:09
[2022-02-10] MEDS: RT-ALBUTEROL/IPRATROPIUM 3 ML (DUONEB) VIAL INH SCH (07:17)
--- NOTE | 2022-02-10 07:27 | Progress Note - Surgery ---
SHAMIKA RIOS A MED STUDENT 02/10/22 0727: Subjective Date Seen by a Provider: Feb 10, 2022 Time Seen by a Provider: 07:15 Subjective/Events-last exam Pt up in chair, reports feeling discouraged this morning. Pt states he is tolerating soft diet, but not eating as much as he used to. Pt confirmed passing gas and stool this morning. Pt states his abdomen is about the same size as it was prior to admission, but maybe a little firmer. Pt denies fever, chills, SOA, cough, CP, N/V, dysuria. Pt is eager to get home. Review of Systems General: No Chills, No Fatigue HEENT: No Head Aches, No Visual Changes Pulmonary: No Dyspnea, No Cough Cardiovascular: No: Chest Pain, Palpitations Gastrointestinal: Abdominal Pain; No: Nausea, Vomiting Genitourinary: No Dysuria, No Frequency Musculoskeletal: back pain (left sided rib pain, improved) Neurological: No: Weakness, Numbness Objective Exam Vital Signs Date Time Temp Pulse Resp B/P (MAP) Pulse Ox O2 Delivery O2 Flow Rate FiO2 02/10/22 07:17 93 Room Air 02/09/22 21:00 94 Room Air 02/09/22 20:05 93 Room Air 02/09/22 19:34 37.8 93 16 104/71 (82) 96 Room Air 02/09/22 14:35 95 Room Air 0.00 02/09/22 10:56 96 Room Air 0.00 02/09/22 09:11 94 Nasal Cannula 3.00 02/09/22 08:19 98 Nasal Cannula 3.00 02/09/22 08:19 Room Air 0.00 02/09/22 07:53 36.3 99 16 109/55 (73) 97 Nasal Cannula 3.00 Capillary Refill : General Appearance: No Apparent Distress, WD/WN, Chronically ill HEENT: PERRL/EOMI, Normal ENT Inspection, Pharynx Normal Neck: Full Range of Motion, Normal Inspection, Non Tender, Supple, Carotid Bruit Respiratory: Chest Non Tender, Lungs Clear, Normal Breath Sounds, No Accessory Muscle Use, No Respiratory Distress Cardiovascular: No Edema, No Gallop, No JVD, No Murmur, Normal Peripheral Pulses, Tachycardia Gastrointestinal: non tender, distended (improved) Extremity: Normal Capillary Refill, Normal Inspection, Normal Range of Motion, Non Tender, No Calf Tenderness, Pedal Edema (3+ pitting) Neurologic/Psychiatric: Alert, Oriented x3, Normal Mood/Affect, contract preparer II-XII Norm as Tested, Motor Weakness (Left-sided weakness upper extremity > lower extremity) Skin: Normal Color, Warm/Dry Lymphatic: No Adenopathy Assessment/Plan Assessment/Plan Assessment/Plan Abdominal distention/constipation Ileuscolonic S/p colonoscopic decompressive 02/01 Recent same level fall with left rib fx 10-12 and grade 2-3 splenic laceration treated conservatively Prior CVA with worsening left-sided weakness Alcoholism Anxiety Acute blood loss anemia Gout COPD hypokalemia Continue PT and ambulation, Patient instructed to try to limit narcotic use. Emphasized to pt that continued ambulation and PT/OT will be of benefit to him Pt passing gas and stool on own. I feel if he increases activity he will continue to improve. If doesn't will need colectomy. Repeat KUB today Consider discharge home with home health as pt is tolerating soft diet ASAF IBRAHIM DO 02/10/22 1303: Subjective Subjective/Events-last exam Tolerating soft diet. Having bowel function. No significant pain. Patient has no new complaints. Denies n/v fever sweats chills shortness of breath or chest pain. KUB showing no acute abnormality. Objective Exam General Appearance: No Apparent Distress, Chronically ill HEENT: PERRL/EOMI, Normal ENT Inspection Neck: Normal Inspection, Non Tender Respiratory: Chest Non Tender, No Accessory Muscle Use Cardiovascular: Regular Rate, Rhythm, No JVD Gastrointestinal: non tender, distended (slight) Extremity: Normal Inspection, Pedal Edema (3+ pitting) Neurologic/Psychiatric: Alert, Oriented x3, Normal Mood/Affect Skin: Normal Color, Warm/Dry Lymphatic: No Adenopathy Assessment/Plan Assessment/Plan Assessment/Plan Abdominal distention/constipation Ileuscolonic S/p colonoscopic decompressive 02/01 Recent same level fall with left rib fx 10-12 and grade 2-3 splenic laceration treated conservatively Prior CVA with worsening left-sided weakness Alcoholism Anxiety Acute blood loss anemia Gout COPD hypokalemia Continue PT and ambulation, Patient instructed to try to limit narcotic use. Emphasized to pt that continued ambulation and PT/OT will be of benefit to him Pt passing gas and stool on own. I feel if he increases activity he will continue to improve. If doesn't will need colectomy. Repeat KUB today showing no acute abnormality Keep on bowel regimen. Tolerating diet. Consider discharge home with home health as pt is tolerating soft diet and bowel function. Patient understands that bowels/condition can change would avoid narcotic use and continue on bowel regimen. If change in condition he understands would be seen at that time. Supervisory-Addendum Brief Verification & Attestation Participated in pt care: history, MDM, physical Personally performed: exam, history, MDM, supervision of care Care discussed with: Medical Student Procedures: n/a Results interpretation: Verified all documentation Verification and Attestation of Medical Student E/M Service A medical student performed and documented this service in my presence. I reviewed and verified all information documented by the medical student and made modifications to such information, when appropriate. I personally performed the physical exam and medical decision making. Asaf Ibrahim, Feb 10, 2022,13:03 SHAMIKA RIOS MED STUDENT Feb 10, 2022 07:27 ASAF IBRAHIM DO Feb 10, 2022 13:03
[2022-02-10 07:55] VITALS: BP 110/58
[2022-02-10] MEDS: ATENOLOL 50 MG (TENORMIN) TAB PO SCH (07:56)
[2022-02-10] MEDS: FOLIC ACID 1 MG TAB PO SCH (07:56)
[2022-02-10] MEDS: PANTOPRAZOLE 40 MG (PROTONIX) TAB PO SCH (07:56)
[2022-02-10] MEDS: polyethylene glycoL POWDER 17 GM (MIRALAX) PACK PO SCH (09:00)
--- NOTE | 2022-02-10 09:10 | Cardiology Progress Note ---
Subjective Date Seen by Provider: Feb 10, 2022 Time Seen by Provider: 08:10 Subjective/Events-last exam Patient is sitting up in chair, no new complaints. Review of Systems General: No Chills, No Night Sweats; Fatigue, Malaise; No Appetite, No Other HEENT: No Head Aches, No Visual Changes, No Eye Pain, No Ear Pain, No Dysphasia, No Sinus Congestion, No Post Nasal Drip, No Sore Throat, No Other Pulmonary: No Dyspnea, No Cough, No Pleuritic Chest Pain, No Other Objective-Cardiology Exam Last Set of Vital Signs Vital Signs 02/09/22 02/10/22 02/10/22 14:35 07:55 08:27 Temp 37.4 Pulse 110 Resp 16 B/P (MAP) 110/58 (75) Pulse Ox 92 O2 Delivery Room Air O2 Flow Rate 0.00 General: Alert, Oriented X3, Cooperative, Mild Distress HEENT: Atraumatic, PERRLA Neck: Supple, No JVD Lungs: Clear to Auscultation, Normal Air Movement Heart: Regular Rate, Normal S1, Normal S2, No Murmurs Abdomen: Normal Bowel Sounds, No Tenderness Extremities: Normal Pulses, Other (periperhal edema ) Skin: No Rashes, No Breakdown, No Significant Lesion Neuro: Normal Speech, Sensation Intact Psych/Mental Status: Mental Status NL, Mood NL A/P-Cardiology Admission Diagnosis Sinus Tachycardia Splenic laceration with perisplenic hematoma Abdominal and pelvic hemoperitoneum History of CVA Assessment/Plan Sinus Tachycardia, continue on atenolol, continue to monitor heart rate. Colonic ileus Patient s/p splenic laceration with perisplenic hematoma and hemoperitoneum with left rib 10-12 fx Magnesium citrate and enema unsuccessful General surgery consulted, underwent colonic decompression twice and rectal tube placement. KUB showed improvement. Currently on liquid diet. Managed by Dr. Ibrahim Splenic laceration with perisplenic hematoma and hemoperitoneum Continue with conservative management per general surgery Continue to hold Aspirin Non-displaced left 10-12th left rib fracture, continue with conservative managem ent Hypertension, controlled, continue to monitor Hyperlipidemia, maintained at home on atorvastatin 80, currently managed by medical team History of CVA , Cryptogenic stroke. Patient maintained at home on aspirin, currently holding due to splenic lace ration Continue to monitor telemetry History of loop monitor implantation done for cryptogenic stroke. We will continue to monitor and interpret rhythm Hx of Alcoholism managed by medical team Supervisory-Addendum Brief Supervisory Addendum Participated in pt care: history, MDM, physical Personally performed: exam, history, MDM Care discussed with: AMADOR Results interpretation: Verified all documentation Notes: Patient was seen and evaluated with Deborah, examination performed, management plan was discussed, agree with the current scribed note, I made few changes to the note using Italic font Patient was seen during physical therapy session, doing better Having bowel movement, reporting improvement in his symptoms Heart rate is better Cardiac status is stable at this time. Continue to monitor DEBORAH FERRARA Feb 10, 2022 09:10 ALEXIA FAIRCHILD MD Feb 10, 2022 12:16
--- NOTE | 2022-02-10 10:35 | Occupational Ther Daily Note ---
OT Current Status-Daily Note Subjective Pt alert, sitting in recliner. Unsure of discharge today. Pt agrees to therapy. No c/o pain, only discomfort with edema. Mental Status/Objective Patient Orientation: Person, Place, Time, Situation Attachments: IV (PICC) ADL-Treatment Pt able to transfer and complete toileting independently. Pt agrees to shower. Pt doffs R/L sock by self. Pt ambulates to bathroom and transfers into shower with SBA for safety. Sitting on shower bench, pt completes shower independently using grabbars, hand held shower and LH sponge. Pt able to retrieved clothing and don shirt by self. Pt able to use figure 4 tech to thread L LE into pants then reaches down to foot thread R LE, pulls up legs then stands to hike pants over hips. Footwear independent with increased time. Pt is inconsistent with footwear due to fluctuating edema and abdominal distention. Sitting at sink, pt completes oral care independently. Pt takes increased time to complete all tasks due to SOA and lengthy recovery breaks. After therapy, pt sitting in recliner with call light/phone in reach. All needs met in room. Therapy Code Descriptions/Definitions Functional [place] Measure: 0=Not Assessed/NA 4=Minimal Assistance 1=Total Assistance 5=Supervision or Setup 2=Maximal Assistance 6=Modified [place] 3=Moderate Assistance 7=Complete IndependenceSCALE: Activities may be completed with or without assistive devices. 2-Eowbuseqzf-izynskl completes the activity by him/herself with no assistance from a helper. 5-Set-up or Clean-up Assistance-helper sets up or cleans up; patient completes activity. [place] assists only prior to or following the activity. 4-Supervision or Touching Assistance-helper provides verbal cues and/or touching/steadying and/or contact guard assistance as patient completes activi ty. Assistance may be provided throughout the activity or intermittently. 3-Partial/Moderate Assistance-helper does LESS THAN HALF the effort. [place] lifts, holds or supports trunk or limbs, but provides less than half the effort. 2-Substantial/Maximal Assistance-helper does MORE THAN HALF the effort. [place] lifts or holds trunk or limbs and provides more than half the effort. 6-Utqtdglov-xiyper does ALL the effort. Patient does none of the effort to complete the activity. Or, the assistance of 2 or more helpers is required for the patient to complete the activity. If activity was not attempted, code reason: 7-Patient Refused. 9-Not Applicable-not attempted and the patient did not perform the activity before the current illness, exacerbation or injury. 10-Not Attempted due to Environmental Limitations-(lack of equipment, weather restraints, etc.). 88-Not Attempted due to Medical Conditions or Safety Concerns. Eating (QC): 6 Oral Hygiene (QC): 6 Shower/Bathe Self (QC): 6 Upper Body Dressing (QC): 6 Lower Body Dressing (QC): 6 On/Off Footwear: 6 Toileting Hygiene (QC): 6 Toilet Transfer (QC): 6 OT Short Term Goals Short Term Goals Time Frame: Feb 16, 2022 Toileting hygiene: 4 Shower/bathe self: 4 Lower body dressin Putting on/taking off footwear: 4 OT Nuclear Operations Specialist Goals Fdc Goals Time Frame: Feb 26, 2022 Eating (QC): 6 (met) Oral Hygiene (QC): 6 (met) Toileting Hygiene (QC): 6 (met) Shower/Bathe Self (QC): 6 (met) Upper Body Dressing (QC): 6 (met) Lower Body Dressing (QC): 6 (met) On/Off Footwear (QC): 6 (met) Additional Goals: 1-Demonstrate ADL Tasks, 2-Verbalize Understanding, 3-ImproveStrength/Francesca 1=Demonstrate adherence to instructed precautions during ADL tasks. 2=Patient will verbalize/demonstrate understanding of assistive devices/modifications for ADL. 3=Patient will improve strength/tolerance for activity to enable patient to perform ADL's. OT Education/Plan Problem List/Assessment Assessment: Decreased Activ Tolerance, Impaired Self-Care Skills, Restricted Funct UE ROM Discharge Recommendations Plan/Recommendations: Continue POC Treatment Plan/Plan of Care Patient would benefit from OT for education, treatment and training to promote independence in ADL's, mobility, safety and/or upper extremity function for ADL's. Plan of Care: ADL Retraining, Functional Mobility, Group Exercise/Act as Ind, UE Funct Exercise/Act, UE Neuromus Re-Ed/Coord Treatment Duration: Feb 26, 2022 Frequency: At least 5 of 7 days/Wk (IRF) Estimated Hrs Per Day: 1.5 hours per day Rehab Potential: Fair Time/GCodes Start Time: 09:00 Stop Time: 10:30 Total Time Billed (hr/min): 90 Billed Treatment Time 1 visit-ADL 5 (70 min) EX 1 (20 min) SUNIL DAMON Feb 10, 2022 10:34
--- NOTE | 2022-02-10 11:18 | Diagnostic Imaging Report ---
INDICATION: Ileus. TIME OF EXAM: 10:14 a.m. FINDINGS: No free air is identified. Bowel gas pattern is nonobstructed. No pathologic calcifications are seen. IMPRESSION: No acute abnormality is detected. Dictated by: Dictated on workstation # [id number]
[2022-02-10] MEDS ORDERED: BACL10TA PO ×2 (11:45)
[2022-02-10] MEDS ORDERED: MULT-1137 PO ×2 (11:45)
[2022-02-10] MEDS ORDERED: FOLI1TAB33 PO ×2 (11:45)
[2022-02-10] MEDS ORDERED: PANT40TA52 PO ×2 (11:45)
[2022-02-10] MEDS ORDERED: POLY17PO54 PO ×2 (11:45)
[2022-02-10] MEDS ORDERED: HYDR-34 PO ×2 (11:45)
[2022-02-10] MEDS ORDERED: BISA10SU8 PR ×2 (11:45)
--- NOTE | 2022-02-10 11:47 | Discharge Summary ---
Diagnosis/Chief Complaint Date of Admission Jan 28, 2022 at 10:54 Date of Discharge Discharge Date: Feb 10, 2022 Discharge Diagnosis Assessment: Debility following fall with left-sided rib fractures and splenic laceration Prior CVA with worsening left-sided weakness Multiple falls at home recently Alcoholism Anxiety Tachycardia Acute blood loss anemia Gout COPD Colonic distention with obstipation consulted Dr. Ibrahim 01/31/2022 status post colonic decompression 02/01/2022 with good results and resolution of constipation but then recurred requiring another decompression on 02/03/2022 now resolved but then recurred due to continued use of pain medication on too frequent basis causing narcotic bowel Plan: Aggressive rehab Supportive care Monitor heart rate 01/29/2022: Supportive care Monitor hemoglobin Iron infusions 01/30/22: Pain management Monitor closely 01/31/2022: Appreciate Dr. Ibrahim Clear liquids 02/01/22: Colonic distention management 02/02/2022: Appreciate Dr. Ibrahim Supportive care 02/03/2022: Colonic decompression acute Checked meds and labs 02/04/2022: Bowel regimen will continue Supportive care 02/05/2022: Supportive care Bowel regimen 02/06/2022: Supportive care Advance diet 02/07/2022: Supportive care Needs dental appointment this week 02/08/2022: Monitor bowel function Discharge delay until bowels move 02/09/2022: Discharge planning Dr. Ibrahim to check abdomen tomorrow (1) Left-sided weakness Status: Acute (2) Spleen laceration Status: Acute (3) Hypertension Status: Chronic (4) Neuropathy Status: Chronic (5) Anxiety Status: Chronic (6) Gout (7) COPD (chronic obstructive pulmonary disease) (8) Alcoholism Status: Chronic Discharge Summary Discharge Physical Examination Allergies: Coded Allergies: Sulfa (Sulfonamide Antibiotics) (Verified Allergy, Unknown, 01/24/22) Uncoded Allergies: SULFA (Allergy, Unknown, 01/24/22) Vitals & I&Os Vital Signs Date Time Temp Pulse Resp B/P (MAP) Pulse Ox O2 Delivery O2 Flow Rate FiO2 02/10/22 16:37 37.4 110 16 110/58 92 Room Air 0.00 General Appearance: Alert, Oriented X3, Cooperative Respiratory: Clear to Auscultation Cardiovascular: Regular Rate Psych/Mental Status: Mental Status NL Hospital Course Was the Problem List Reviewed?: Yes Pt had a lengthy 14 day hospital course after splenic laceration from a fall and multiple left sided rib fractures. He was moved from med surg to in-patient rehab and tolerated everything pretty well. Required a lot of pain medication. Tried to maintain bowel regimen to prevent narcotic bowel but that was not successful. That required two separate colonoscopy decompressions by Dr. Ibrahim and an aggressive laxative regimen that he will continue at home. Overall seems to be doing very well although bowel issues may return if he gets home and continues on his pain medication. I did preparole counseling aide him in depth regarding that. He will see me in two weeks. Labs (last 24 hrs) Laboratory Tests 01/28/22 14:25: Thyroid Stimulating Hormone (TSH) 4.85 01/29/22 05:52: White Blood Count 6.2, Red Blood Count 1.94L, Hemoglobin 7.7L, Hematocrit 23L, Mean Corpuscular Volume 118H, Mean Corpuscular Hemoglobin 40H, Mean Corpuscular Hemoglobin Concent 34, Red Cell Distribution Width 13.3, Platelet Count 56L, Mean Platelet Volume 9.9, Immature Granulocyte % (Auto) 1, Neutrophils (%) (Auto) 74, Lymphocytes (%) (Auto) 14, Monocytes (%) (Auto) 10, Eosinophils (%) (Auto) 1, Basophils (%) (Auto) 0, Neutrophils # (Auto) 4.6, Lymphocytes # (Auto) 0.8L, Monocytes # (Auto) 0.6, Eosinophils # (Auto) 0.1, Basophils # (Auto) 0.0, Immature Granulocyte # (Auto) 0.0, Percent Immature Platelet Fraction 2.1, Sodiu m Level 132L, Potassium Level 3.6, Chloride Level 100, Carbon Dioxide Level 20L, Anion Gap 12, Blood Urea Nitrogen 14, Creatinine 0.62, Estimat Glomerular Filtration Rate 110, BUN/Creatinine Ratio 23, Glucose Level 108H, Calcium Level 8.1L, Corrected Calcium 9.1, Total Bilirubin 1.6H, Aspartate Amino Transf (AST/SGOT) 32, Alanine Aminotransferase (ALT/SGPT) 17, Alkaline Phosphatase 82, Total Protein 5.2L, Albumin 2.7L 01/29/22 08:50: Vitamin B12 Level 1301H 01/31/22 07:22: White Blood Count 12.0H, Red Blood Count 2.36L, Hemoglobin 9.3#L, Hematocrit 27L , Mean Corpuscular Volume 114H, Mean Corpuscular Hemoglobin 39H, Mean Corpuscular Hemoglobin Concent 34, Red Cell Distribution Width 13.8, Platelet Count 312, Mean Platelet Volume 9.5, Immature Granulocyte % (Auto) 1, Neutrophils (%) (Auto) 78H, Lymphocytes (%) (Auto) 8L, Monocytes (%) (Auto) 11, Eosinophils (%) (Auto) 2, Basophils (%) (Auto) 0, Neutrophils # (Auto) 9.4H, Lymphocytes # (Auto) 1.0, Monocytes # (Auto) 1.3H, Eosinophils # (Auto) 0.2, Basophils # (Auto) 0.0, Immature Granulocyte # (Auto) 0.1, Sodium Level 134L, Potassium Level 3.7, Chloride Level 99, Carbon Dioxide Level 27, Anion Gap 8, Blood Urea Nitrogen 14, Creatinine 0.64, Estimat Glomerular Filtration Rate 109, BUN/Creatinine Ratio 22, Glucose Level 116H, Calcium Level 8.7, Corrected Calcium 9.5, Total Bilirubin 1.6H, Aspartate Amino Transf (AST/SGOT) 33, Alanine Aminotransferase (ALT/SGPT) 18, Alkaline Phosphatase 95, Total Protein 6.1L, Albumin 3.0L, Phosphorus Level 3.0, Magnesium Level 2.2 02/01/22 06:00: White Blood Count 9.9, Red Blood Count 2.30L, Hemoglobin 8.9L, Hematocrit 26L, Mean Corpuscular Volume 114H, Mean Corpuscular Hemoglobin 39H, Mean Corpuscular Hemoglobin Concent 34, Red Cell Distribution Width 14.2, Platelet Count 331, Mean Platelet Volume 9.7, Immature Granulocyte % (Auto) 1, Neutrophils (%) (Auto) 75, Lymphocytes (%) (Auto) 10L, Monocytes (%) (Auto) 12, Eosinophils (%) (Auto) 2, Basophils (%) (Auto) 1, Neutrophils # (Auto) 7.4, Lymphocytes # (Auto) 1.0, Monocytes # (Auto) 1.2H, Eosinophils # (Auto) 0.2, Basophils # (Auto) 0.1, Immature Granulocyte # (Auto) 0.1, Sodium Level 132L, Potassium Level 3.6, Chloride Level 99, Carbon Dioxide Level 25, Anion Gap 8, Blood Urea Nitrogen 16, Creatinine 0.69, Estimat Glomerular Filtration Rate 107, BUN/Creatinine Ratio 23, Glucose Level 104, Calcium Level 8.2L, Corrected Calcium 9.4, Phosphorus Level 2.9, Magnesium Level 2.1, Total Bilirubin 1.2H, Aspartate Amino Transf (AST/SGOT) 31, Alanine Aminotransferase (ALT/SGPT) 15, Alkaline Phosphatase 93, Total Protein 5.6L, Albumin 2.5L 02/06/22 05:15: White Blood Count 10.6, Red Blood Count 2.48L, Hemoglobin 9.1L, Hematocrit 27L, Mean Corpuscular Volume 111H, Mean Corpuscular Hemoglobin 37H, Mean Corpuscular Hemoglobin Concent 33, Red Cell Distribution Width 15.2H, Platelet Count 367, Mean Platelet Volume 9.5, Sodium Level 137, Potassium Level 2.9L, Chloride Level 102, Carbon Dioxide Level 23, Anion Gap 12, Blood Urea Nitrogen 8, Creatinine 0.56L, Estimat Glomerular Filtration Rate 114, BUN/Creatinine Ratio 14, Glucose Level 105, Calcium Level 8.0L, Magnesium Level 1.8 02/07/22 12:30: White Blood Count 11.1H, Red Blood Count 2.80L, Hemoglobin 10.2L, Hematocrit 31L , Mean Corpuscular Volume 111H, Mean Corpuscular Hemoglobin 36H, Mean Corpuscular Hemoglobin Concent 33, Red Cell Distribution Width 15.3H, Platelet Count 422H, Mean Platelet Volume 9.6, Sodium Level 138, Potassium Level 3.5L, Chloride Level 102, Carbon Dioxide Level 22, Anion Gap 14, Blood Urea Nitrogen 8, Creatinine 0.60, Estimat Glomerular Filtration Rate 111, BUN/Creatinine Ratio 13, Glucose Level 107H, Calcium Level 8.4L 02/08/22 05:40: White Blood Count 10.6, Red Blood Count 2.52L, Hemoglobin 9.2L, Hematocrit 28L, Mean Corpuscular Volume 112H, Mean Corpuscular Hemoglobin 37H, Mean Corpuscular Hemoglobin Concent 33, Red Cell Distribution Width 15.2H, Platelet Count 361, Mean Platelet Volume 9.7, Immature Granulocyte % (Auto) 1, Neutrophils (%) (Auto) 74, Lymphocytes (%) (Auto) 13, Monocytes (%) (Auto) 8, Eosinophils (%) (Auto) 4, Basophils (%) (Auto) 1, Neutrophils # (Auto) 7.8, Lymphocytes # (Auto) 1.4, Monocytes # (Auto) 0.9, Eosinophils # (Auto) 0.4H, Basophils # (Auto) 0.1, Immature Granulocyte # (Auto) 0.1, Sodium Level 138, Potassium Level 3.5L, Chloride Level 104, Carbon Dioxide Level 22, Anion Gap 12, Blood Urea Nitrogen 8, Creatinine 0.60, Estimat Glomerular Filtration Rate 111, BUN/Creatinine Ratio 13, Glucose Level 98, Calcium Level 8.2L, Corrected Calcium 9.6, Magnesium Level 1.7, Total Bilirubin 0.9, Aspartate Amino Transf (AST/SGOT) 42H, Alanine Aminotransferase (ALT/SGPT) 16, Alkaline Phosphatase 107, Total Protein 5.8L, Albumin 2.2L Pending Labs Laboratory Tests 01/28/22 14:25: Thyroid Stimulating Hormone (TSH) 4.85 01/29/22 05:52: White Blood Count 6.2, Red Blood Count 1.94, Hemoglobin 7.7, Hematocrit 23, Mean Corpuscular Volume 118, Mean Corpuscular Hemoglobin 40, Mean Corpuscular Hemoglobin Concent 34, Red Cell Distribution Width 13.3, Platelet Count 56, Mean Platelet Volume 9.9, Immature Granulocyte % (Auto) 1, Neutrophils (%) (Auto) 74, Lymphocytes (%) (Auto) 14, Monocytes (%) (Auto) 10, Eosinophils (%) (Auto) 1, Basophils (%) (Auto) 0, Neutrophils # (Auto) 4.6, Lymphocytes # (Auto) 0.8, Monocytes # (Auto) 0.6, Eosinophils # (Auto) 0.1, Basophils # (Auto) 0.0, Immature Granulocyte # (Auto) 0.0, Percent Immature Platelet Fraction 2.1, Sodium Level 132, Potassium Level 3.6, Chloride Level 100, Carbon Dioxide Level 20, Anion Gap 12, Blood Urea Nitrogen 14, Creatinine 0.62, Estimat Glomerular Filtration Rate 110, BUN/Creatinine Ratio 23, Glucose Level 108, Calcium Level 8.1, Corrected Calcium 9.1, Total Bilirubin 1.6, Aspartate Amino Transf (AST/SGOT) 32, Alanine Aminotransferase (ALT/SGPT) 17, Alkaline Phosphatase 82, Total Protein 5.2, Albumin 2.7 01/29/22 08:50: Vitamin B12 Level 1301 01/31/22 07:22: White Blood Count 12.0, Red Blood Count 2.36, Hemoglobin 9.3, Hematocrit 27, Mean Corpuscular Volume 114, Mean Corpuscular Hemoglobin 39, Mean Corpuscular Hemoglobin Concent 34, Red Cell Distribution Width 13.8, Platelet Count 312, Mean Platelet Volume 9.5, Immature Granulocyte % (Auto) 1, Neutrophils (%) (Auto) 78, Lymphocytes (%) (Auto) 8, Monocytes (%) (Auto) 11, Eosinophils (%) (Auto) 2, Basophils (%) (Auto) 0, Neutrophils # (Auto) 9.4, Lymphocytes # (Auto) 1.0, Monocytes # (Auto) 1.3, Eosinophils # (Auto) 0.2, Basophils # (Auto) 0.0, Immature Granulocyte # (Auto) 0.1, Sodium Level 134, Potassium Level 3.7, Chloride Level 99, Carbon Dioxide Level 27, Anion Gap 8, Blood Urea Nitrogen 14, Creatinine 0.64, Estimat Glomerular Filtration Rate 109, BUN/Creatinine Ratio 22, Glucose Level 116, Calcium Level 8.7, Corrected Calcium 9.5, Total Bilirubin 1.6, Aspartate Amino Transf (AST/SGOT) 33, Alanine Aminotransferase (ALT/SGPT) 18, Alkaline Phosphatase 95, Total Protein 6.1, Albumin 3.0, Phosphorus Level 3.0, Magnesium Level 2.2 02/01/22 06:00: White Blood Count 9.9, Red Blood Count 2.30, Hemoglobin 8.9, Hematocrit 26, Mean Corpuscular Volume 114, Mean Corpuscular Hemoglobin 39, Mean Corpuscular Hemoglobin Concent 34, Red Cell Distribution Width 14.2, Platelet Count 331, Nazia n Platelet Volume 9.7, Immature Granulocyte % (Auto) 1, Neutrophils (%) (Auto) 75, Lymphocytes (%) (Auto) 10, Monocytes (%) (Auto) 12, Eosinophils (%) (Auto) 2, Basophils (%) (Auto) 1, Neutrophils # (Auto) 7.4, Lymphocytes # (Auto) 1.0, Monocytes # (Auto) 1.2, Eosinophils # (Auto) 0.2, Basophils # (Auto) 0.1, Immature Granulocyte # (Auto) 0.1, Sodium Level 132, Potassium Level 3.6, Chloride Level 99, Carbon Dioxide Level 25, Anion Gap 8, Blood Urea Nitrogen 16, Creatinine 0.69, Estimat Glomerular Filtration Rate 107, BUN/Creatinine Ratio 23, Glucose Level 104, Calcium Level 8.2, Corrected Calcium 9.4, Phosphorus Level 2.9, Magnesium Level 2.1, Total Bilirubin 1.2, Aspartate Amino Transf (AST/SGOT) 31, Alanine Aminotransferase (ALT/SGPT) 15, Alkaline Phosphatase 93, Total Protein 5.6, Albumin 2.5 02/06/22 05:15: White Blood Count 10.6, Red Blood Count 2.48, Hemoglobin 9.1, Hematocrit 27, Mean Corpuscular Volume 111, Mean Corpuscular Hemoglobin 37, Mean Corpuscular Hemoglobin Concent 33, Red Cell Distribution Width 15.2, Platelet Count 367, Mean Platelet Volume 9.5, Sodium Level 137, Potassium Level 2.9, Chloride Level 102, Carbon Dioxide Level 23, Anion Gap 12, Blood Urea Nitrogen 8, Creatinine 0.56, Estimat Glomerular Filtration Rate 114, BUN/Creatinine Ratio 14, Glucose Level 105, Calcium Level 8.0, Magnesium Level 1.8 02/07/22 12:30: White Blood Count 11.1, Red Blood Count 2.80, Hemoglobin 10.2, Hematocrit 31, Mean Corpuscular Volume 111, Mean Corpuscular Hemoglobin 36, Mean Corpuscular Hemoglobin Concent 33, Red Cell Distribution Width 15.3, Platelet Count 422, Mean Platelet Volume 9.6, Sodium Level 138, Potassium Level 3.5, Chloride Level 102, Carbon Dioxide Level 22, Anion Gap 14, Blood Urea Nitrogen 8, Creatinine 0.60, Estimat Glomerular Filtration Rate 111, BUN/Creatinine Ratio 13, Glucose Level 107, Calcium Level 8.4 02/08/22 05:40: White Blood Count 10.6, Red Blood Count 2.52, Hemoglobin 9.2, Hematocrit 28, Mean Corpuscular Volume 112, Mean Corpuscular Hemoglobin 37, Mean Corpuscular Hemoglobin Concent 33, Red Cell Distribution Width 15.2, Platelet Count 361, Mean Platelet Volume 9.7, Immature Granulocyte % (Auto) 1, Neutrophils (%) (Auto) 74, Lymphocytes (%) (Auto) 13, Monocytes (%) (Auto) 8, Eosinophils (%) (Auto) 4, Basophils (%) (Auto) 1, Neutrophils # (Auto) 7.8, Lymphocytes # (Auto) 1.4, Monocytes # (Auto) 0.9, Eosinophils # (Auto) 0.4, Basophils # (Auto) 0.1, Immature Granulocyte # (Auto) 0.1, Sodium Level 138, Potassium Level 3.5, Chloride Level 104, Carbon Dioxide Level 22, Anion Gap 12, Blood Urea Nitrogen 8, Creatinine 0.60, Estimat Glomerular Filtration Rate 111, BUN/Creatinine Ratio 13, Glucose Level 98, Calcium Level 8.2, Corrected Calcium 9.6, Magnesium Level 1.7, Total Bilirubin 0.9, Aspartate Amino Transf (AST/SGOT) 42, Alanine Aminotransferase (ALT/SGPT) 16, Alkaline Phosphatase 107, Total Protein 5.8, Alb umin 2.2 Discharge Home Medications: Active Scripts Active Tab-A-Francesco Multivit with Iron (Multivitamin/Iron/Folic Acid) 1 Each Tablet 1 Ea PO DAILY@0700 Folic Acid 1 Mg Tablet 1 Mg PO DAILY Pantoprazole Sodium 40 Mg Tablet.dr 40 Mg PO DAILY Bisacodyl 10 Mg Supp.rect 10 Mg GA DAILY PRN Polyethylene Glycol 3350 17 Gm Powd.pack 17 Gm PO BID HYDROcodone/APAP 7.5/325 TAB (Acetaminophen/Hydrocodone Bitart) 1 Ea Tablet 1 Ea PO Q8HR PRN Baclofen 10 Mg Tablet 10 Mg PO TID PRN Reported Klor-Con 10 (Potassium Chloride) 10 Meq Tablet.er 10 Meq PO DAILY Tylenol Extra Strength (Acetaminophen) 500 Mg Tablet 1,000 Mg PO Q8H PRN Advil (Ibuprofen) 200 Mg Capsule 400 Mg PO Q8H PRN Magnesium Oxide 400 Mg Tablet 400 Mg PO DAILY Atenolol 25 Mg Tablet 25 Mg PO DAILY Ativan (Lorazepam) 0.5 Mg Tablet 0.5 Mg PO BID PRN Instructions to patient/family Please see electronic discharge instructions given to patient. Diagnosis/Problems Diagnosis/Problems (1) Left-sided weakness Status: Acute (2) Spleen laceration Status: Acute (3) Hypertension Status: Chronic (4) Neuropathy Status: Chronic (5) Anxiety Status: Chronic (6) Gout (7) COPD (chronic obstructive pulmonary disease) (8) Alcoholism Status: Chronic HARDY CAMPBELL DO Feb 10, 2022 11:47
--- NOTE | 2022-02-10 11:49 | D/C HH Face to Face Order ---
D/C Face to Face Orders Reconcile Patient Problems Problems Reviewed?: Yes Instructions for Patient [facility] Home Health Patient Instructions/FollowUp: Dr Martínez 2 weeks Physician to follow Patient: Mauricio Discharge Diet for Home: No Restrictions Patient Problems: Splenic laceration Narcotic bowel Patient Data-Allergies,Ht & Wt Patient Allergies: Coded Allergies: Sulfa (Sulfonamide Antibiotics) (Verified Allergy, Unknown, 01/24/22) Uncoded Allergies: SULFA (Allergy, Unknown, 01/24/22) Height (Feet): 6 Height (Inches): 2.00 Weight (Pounds): 220 Weight (Ounces): 8.8 Home Health Need/Face to Face Date of Face to Face: Feb 10, 2022 Clinical Findings: Generalized weakness and fatigue, Instability, Muscle weakness I have seen Pt [id number]: Yes Discharged To: Home Diagnosis/Conditions: Splenic lac Patient is Homebound due to: Angel fall risk due to instabilty, Muscle weakness, Pain w/ambulation Homebound Status Due to the above stated illness, injury or surgical procedure (medical condition or diagnosis) and associated clinical findings, the patient is homebound because of his/her inability to leave home except with aid of a supportive device and/or person AND leaving the home requires a considerable and taxing effort or is medically contraindicated. Pt req the following assistanc: Walker Home Health Nursing Orders Home Health Services Order: Nursing Services, [employer] Plant Construction Worker-Evaluate & Treat, Physical Therapy-Evaluate & Treat Home Health Infusion Therapy Line Start Date: Jan 29, 2022 Certify Stmt I certify that this patient is under my care and that I, a nurse practitioner or a physician; a construction project assistant working with me, had a face to face encounter that - meets the physician face to face encounter requirements with this patient as dated. HARDY MARTÍNEZ DO Feb 10, 2022 11:49
--- NOTE | 2022-02-10 11:53 | Physical Therapy Daily Note ---
PT Daily Note-Current Subjective Upon arrival, pt was seated in recliner playing a game. Pt was ready for PT. Pt reported some discomfort in ribs, but stated that they were getting better. Pain Comment: Pt reported pain, but not rated Mental Status Patient Orientation: Normal For Age Transfers SCALE: Activities may be completed with or without assistive devices. 5-Cvsqkairts-kmldidp completes the activity by him/herself with no assistance from a helper. 5-Set-up or Clean-up Assistance-helper sets up or cleans up; patient completes activity. Onyx assists only prior to or following the activity. 4-Supervision or Touching Assistance-helper provides verbal cues and/or touching/steadying and/or contact guard assistance as patient completes activity. Assistance may be provided throughout the activity or intermittently. 3-Partial/Moderate Assistance-helper does LESS THAN HALF the effort. Onyx lifts, holds or supports trunk or limbs, but provides less than half the effort. 2-Substantial/Maximal Assistance-helper does MORE THAN HALF the effort. Onyx lifts or holds trunk or limbs and provides more than half the effort. 5-Ubsjqbqdv-deqers does ALL the effort. Patient does none of the effort to complete the activity. Or, the assistance of 2 or more helpers is required for the patient to complete the activity. If activity was not attempted, code reason: 7-Patient Refused. 9-Not Applicable-not attempted and the patient did not perform the activity before the current illness, exacerbation or injury. 10-Not Attempted due to Environmental Limitations-(lack of equipment, weather restraints, etc.). 88-Not Attempted due to Medical Conditions or Safety Concerns. Sit to Stand (QC): 6 Weight Bearing Full Weight Bearing Full Weight Bearing Gait Training Does the Patient Walk?: Yes Distance: 260' Walk 10 feet (QC): 6 Walk 50 ft with 2 Turns(QC): 6 Walk 150 ft (QC): 6 Gait Assistive Device: FWW Activity tolerance is poor. Needs frequent rest break. Exercises NuStep Minutes: 15 Treatments Pt requested that we focus on his indurance, and improve his activity tolerance. Pt required frequent rest breaks during ambulation. During tx session doctor came to check on pt. Assessment Current Status: Good Progress Pt would benefit from increasing his activity tolerance in time. PT Toll Relief Operator Goals Long-Term Goals PT Toll Relief Operator Goals Time Frame: Feb 25, 2022 Roll Left & Right (QC): 6 Sit to Lying (QC): 6 Lying-Sitting on Side/Bed(QC): 6 Sit to Stand (QC): 6 Chair/Xst-tl-Evnxq Xfer(QC): 6 Toilet Transfer (QC): 6 Car Transfer (QC): 6 Does the Patient Walk: Yes Walk 10 feet (QC): 6 Walk 50ft with 2 Turns (QC): 6 Walk 150 ft (QC): 6 Walking 10ft on Uneven Surface: 6 1 Step (curb) (QC): 6 4 Steps (QC): 6 12 Steps (QC): 6 Picking up an Object (QC): 6 Does the Pt use WC or Scooter?: No Wheel 50 feet with 2 turns (QC: 9 Type: N/A Wheel 150 feet: 9 Type: N/A PT Plan Problem List Problem List: Activity Tolerance, Functional Strength, Gait Treatment/Plan Treatment Plan: Continue Plan of Care Treatment Plan: Bed Mobility, Concurrent Therapy, Education, Functional Activity Francesca, Functional Strength, Group Therapy, Gait, Safety, Therapeutic Exercise, Transfers Treatment Duration: Feb 25, 2022 Frequency: At least 5 of 7 days/Wk (IRF) Estimated Hrs Per Day: 1.5 hours per day Patient and/or Family Agrees t: Yes Time/GCodes Time In: 1030 Time Out: 1145 Total Billed Treatment Time: 75 Total Billed Treatment 1, GT 4, EX 1 INES HADDAD EXECUTIVE SALES ASSISTANT Feb 10, 2022 11:53
[2022-02-10 16:37] VITALS: BP 110/58
--- NOTE | 2022-02-11 07:48 | Therapy Team Discharge Summary ---
Therapy Discharge Summary Discharge Recommendations Date of Discharge Feb 10, 2022 at 16:10 Physical Therapy Roll Left to Right (QC): 6 Sit to Lying (QC): 6 Lying to Sitting/Side of Bed(Q: 6 Sit to Stand (QC): 6 Chair/Hht-bg-Mdcpo Xfer(QC): 5 Toilet Transfer (QC): 3 Car Transfer (QC): 4 (CGA) Does the Patient Walk: Yes Mode of Locomotion: Walk Anticipated Mode of Locomotion: Walk Walk 10 feet (QC): 6 Walk 50 ft with 2 Turns(QC): 6 Walk 150 ft (QC): 6 Walking 10ft on uneven surface: 5 Distance: 250'x1 100'x2 Gait Assistive Device: FWW Does the Pt Use a Wheelchair: No Wheel 50 ft with 2 turns (QC): 9 Wheel 150 ft (QC): 9 Type of Wheelchair: N/A #of Steps: 4 1 Step (curb) (QC): 5 4 Steps (QC): 5 12 Steps (QC): 7 Balance Sitting Static: Normal Balance Sitting Dynamic: Fair Balance-Standing Static: Good Picking up an Object (QC): 88 Occupational Therapy Pt admitted to ARU with spleen laceration. At [facility], pt was independent with ADLs and functional mobility, without AD. Upon initial evaluation, pt required set up assistance with eating, independent oral care, CGA showering, set up upper body dressing, min A lower body dressing, mod A footwear and CGA toileting. OT tx focused on increasing BUE strength and activity tolerance, and increasing independence and safety with ADLs and functional mobility. Pt made good progress towards goals, meeting all LTGs.Pt discharged from facility, d/c from OT. Decreased Activ Tolerance, Impaired Self-Care Skills, Restricted Funct UE ROM Eating (QC): 6 Oral Hygiene (QC): 6 Shower/Bathe Self (QC): 6 Upper Body Dressing (QC): 6 Lower Body Dressing (QC): 6 On/Off Footwear (QC): 6 Toileting Hygiene (QC): 6 PT Correction Goals Correction Goals PT Correction Goals Time Frame: Feb 25, 2022 Roll Left to Right (QC): 6 Sit to Lying (QC): 6 Lying-Sitting on Side/Bed(QC): 6 Sit to Stand (QC): 6 Chair/Uhi-hj-Cypfu Xfer(QC): 6 Car Transfer (QC): 6 Does the Patient Walk: Yes Walk 10 feet (QC): 6 Walk 10ft-Uneven Surface(QC): 6 Walk 50ft with 2 Turns (QC): 6 Walk 150 ft (QC): 6 Does the Pt use WC or Scooter?: No Wheel 50 feet with 2 turns (QC: 9 1 Step (curb) (QC): 6 4 Steps (QC): 6 12 Steps (QC): 6 Picking up an Object (QC): 6 OT Correction Goals Correction Goals Time Frame: Feb 26, 2022 Eating (QC): 6 (met) Oral Hygiene (QC): 6 (met) Shower/Bathe Self (QC): 6 (met) Upper Body Dressing (QC): 6 (met) Lower Body Dressing (QC): 6 (met) On/Off Footwear (QC): 6 (met) Toileting Hygiene (QC): 6 (met) Toilet/Commode Transfer (QC): 6 Additional Goals: 1-Demonstrate ADL Tasks, 2-Verbalize Understanding, 3- ImproveStrength/Francesca 1=Demonstrate adherence to instructed precautions during ADL tasks. 2=Patient will verbalize/demonstrate understanding of assistive devices/modif ications for ADL. 3=Patient will improve strength/tolerance for activity to enable patient to perform ADL's. WILFREDO CORLEY OT Feb 11, 2022 07:48
--- NOTE | 2022-02-11 13:25 | Therapy Team Discharge Summary ---
Therapy Discharge Summary Discharge Recommendations Date of Discharge Feb 10, 2022 at 16:10 Physical Therapy Patient came to rehab post spleen laceration and abdominal surgery. Upon evaluation patient performed rolling with max assist, supine to sit max assist, sit to supine mod assist, sit <-> stand and transfers CGA, car transfer CGA, ambulated 250' with a rolling walker with CGA (including 50' with at least 2 turns of 90 degrees and 10' over an uneven surface), and went up and down 4 steps using 2 handrails with CGA. Patient has been performing bed mobility and transfer training, balance and endurance training ,functional strengthening, stair training, gait training, and education. 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 Now, patient performs rolling and supine <-> sit with independence, sit <-> stand and transfers with setup, car transfer CGA, ambulates over 150' with a rolling walker with setup (including 50' with at least 2 turns of 90 degrees and 10' over an uneven surface), and went up and down 4 steps using 2 handrails with SBA. Patient has been discharged from this facility and will be discharged from PT at this time. Roll Left to Right (QC): 6 Sit to Lying (QC): 6 Lying to Sitting/Side of Bed(Q: 6 Sit to Stand (QC): 6 Chair/Hgr-jy-Kvntf Xfer(QC): 5 Toilet Transfer (QC): 3 Car Transfer (QC): 4 (CGA) Does the Patient Walk: Yes Mode of Locomotion: Walk Anticipated Mode of Locomotion: Walk Walk 10 feet (QC): 6 Walk 50 ft with 2 Turns(QC): 6 Walk 150 ft (QC): 6 Walking 10ft on uneven surface: 5 Distance: 250'x1 100'x2 Gait Assistive Device: FWW Does the Pt Use a Wheelchair: No Wheel 50 ft with 2 turns (QC): 9 Wheel 150 ft (QC): 9 Type of Wheelchair: N/A #of Steps: 4 1 Step (curb) (QC): 5 4 Steps (QC): 5 12 Steps (QC): 7 Balance Sitting Static: Normal Balance Sitting Dynamic: Fair Balance-Standing Static: Good Picking up an Object (QC): 88 Occupational Therapy Decreased Activ Tolerance, Impaired Self-Care Skills, Restricted Funct UE ROM Eating (QC): 6 Oral Hygiene (QC): 6 Shower/Bathe Self (QC): 6 Upper Body Dressing (QC): 6 Lower Body Dressing (QC): 6 On/Off Footwear (QC): 6 Toileting Hygiene (QC): 6 PT Armature Straightener Goals Armature Straightener Goals PT Armature Straightener Goals Time Frame: Feb 25, 2022 Roll Left to Right (QC): 6 Sit to Lying (QC): 6 Lying-Sitting on Side/Bed(QC): 6 Sit to Stand (QC): 6 Chair/Zsw-cd-Vunil Xfer(QC): 6 Car Transfer (QC): 6 Does the Patient Walk: Yes Walk 10 feet (QC): 6 Walk 10ft-Uneven Surface(QC): 6 Walk 50ft with 2 Turns (QC): 6 Walk 150 ft (QC): 6 Does the Pt use WC or Scooter?: No Wheel 50 feet with 2 turns (QC: 9 1 Step (curb) (QC): 6 4 Steps (QC): 6 12 Steps (QC): 6 Picking up an Object (QC): 6 OT Longterm Goals Longterm Goals Time Frame: Feb 26, 2022 Eating (QC): 6 (met) Oral Hygiene (QC): 6 (met) Shower/Bathe Self (QC): 6 (met) Upper Body Dressing (QC): 6 (met) Lower Body Dressing (QC): 6 (met) On/Off Footwear (QC): 6 (met) Toileting Hygiene (QC): 6 (met) Toilet/Commode Transfer (QC): 6 Additional Goals: 1-Demonstrate ADL Tasks, 2-Verbalize Understanding, 3- ImproveStrength/Francesca 1=Demonstrate adherence to instructed precautions during ADL tasks. 2=Patient will verbalize/demonstrate understanding of assistive devices/modifications for ADL. 3=Patient will improve strength/tolerance for activity to enable patient to perform ADL's. KRISTINE HAWK PT Feb 11, 2022 13:25
== END 2022-02-10 16:10 | disposition home health service (06) | DRG 949 ==
PROVIDERS: ADMIT Internal Medicine; ATTEND Internal Medicine
DX: S36.039D Unspecified laceration of spleen, subsequent encounter (principal); I69.354 Hemiplegia and hemiparesis following cerebral infarction affecting left non-dominant side; D62 Acute posthemorrhagic anemia; K56.7 Ileus, unspecified; S22.42XD Multiple fractures of ribs, left side, subsequent encounter for fracture with routine healing; F10.20 Alcohol dependence, uncomplicated; R00.0 Tachycardia, unspecified; K58.1 Irritable bowel syndrome with constipation; Z91.81 History of falling; F41.9 Anxiety disorder, unspecified; I10 Essential (primary) hypertension; G62.9 Polyneuropathy, unspecified; J43.9 Emphysema, unspecified; F32.A Depression, unspecified; K58.0 Irritable bowel syndrome with diarrhea; E87.6 Hypokalemia; E78.00 Pure hypercholesterolemia, unspecified; M10.9 Gout, unspecified; Z87.891 Personal history of nicotine dependence; Z88.2 Allergy status to sulfonamides; Z82.49 Family history of ischemic heart disease and other diseases of the circulatory system; Z82.0 Family history of epilepsy and other diseases of the nervous system; W19.XXXD Unspecified fall, subsequent encounter
CPT/HCPCS: 36415; 36569; 74018; 74019; 76937; 80048; 80053; 82607; 83735; 84100; 84443; 85025; 85027; 93005; 94640; 94760; 94761

== ENCOUNTER 2022-02-01 10:28 | Day surgery (SDC) | payer BC ==
[2022-02-01] MEDS ORDERED: LACTATED RINGERS 1,000 ML IV STA (13:25)
[2022-02-01] MEDS ORDERED: MIDAZOLAM 2 MG/2 ML (VERSED) VIAL ONE (14:36)
[2022-02-01] MEDS ORDERED: PROPOFOL INJECTION 50 ML IV ONE (14:37)
--- NOTE | 2022-02-01 15:16 | Anesthesia-General Post-Op ---
MAC Patient Condition Mental Status/LOC: Same as Preop Cardiovascular: Satisfactory Nausea/Vomiting: Absent Respiratory: Satisfactory Pain: Controlled Complications: Absent Post Op Complications Complications None Follow Up Care/Instructions Patient Instructions None needed. Anesthesiology Discharge Order Discharge Order Patient is doing well, no complaints, stable vital signs, no apparent adverse anesthesia problems. No complications reported per nursing. INES CABRERA CRNA Feb 01, 2022 15:16
[2022-02-01 15:18] VITALS: BP 108/64
--- NOTE | 2022-02-02 18:14 | OPERATIVE REPORT ---
DATE OF SERVICE: 02/01/2022 PREOPERATIVE DIAGNOSIS: Colonic distention. POSTOPERATIVE DIAGNOSIS: Colonic distention. PROCEDURE PERFORMED: Decompressive colonoscopy. SURGEON: Asaf Ibrahim DO. ANESTHESIA: Per CUTTING AND PRINTING MACHINE OPERATOR. ESTIMATED BLOOD LOSS: None. COMPLICATIONS: None. INDICATIONS FOR PROCEDURE: The patient is a 61-year-old male with a significantly distended colon. He understands the risks and benefits of the procedure and wishes to proceed. Consent was signed in the chart. DESCRIPTION OF PROCEDURE: The patient was taken to the endoscopy suite and placed in a left lateral recumbent position. Timeout was performed. Digital rectal exam was performed. No palpable polyps, masses or ulcerations. Scope was inserted in the rectum and advanced all the way to the cecum with minimal difficulty. The colon was moderately distended throughout the entire colon. Once in the cecum, the scope was then slowly retracted suctioning air and decompressing the colon until completely removed. The patient's abdomen is significantly less distended. No other gross pathology noted; however, poor prep present. RECOMMENDATIONS: The patient is to increase activity. May need a rectal tube placed if it started to become or may also need a repeat decompressive colonoscopy. If no resolution, the patient may need a colectomy. Job ID: [id number] DocumentID: [id number] Dictated Date: 02/02/2022 15:05:45 Stator Plate Washer Date: 02/02/2022 18:13:41 Dictated By: ASAF IBRAHIM DO
== END 2022-02-01 15:21 | disposition home or self-care (01) ==
LOC: ENDO 10:28
PROVIDERS: ATTEND Surgery
DX: K63.89 Other specified diseases of intestine (principal); K59.00 Constipation, unspecified; R14.0 Abdominal distension (gaseous); K56.7 Ileus, unspecified; D62 Acute posthemorrhagic anemia; M10.9 Gout, unspecified; J44.9 Chronic obstructive pulmonary disease, unspecified; S22.42XD Multiple fractures of ribs, left side, subsequent encounter for fracture with routine healing; F10.20 Alcohol dependence, uncomplicated; F41.9 Anxiety disorder, unspecified; Z79.899 Other long term (current) drug therapy; Z91.81 History of falling

== ENCOUNTER 2022-02-03 11:26 | Day surgery (SDC) | payer BC ==
[2022-02-03] MEDS ORDERED: LACTATED RINGERS 1,000 ML IV ONE (12:12)
[2022-02-03] MEDS ORDERED: PROPOFOL INJECTION 50 ML IV ONE (12:18)
[2022-02-03] MEDS ORDERED: LACTATED RINGERS 1,000 ML IV STA (12:32)
[2022-02-03 12:40] VITALS: BP 86/52
[2022-02-03 12:45] VITALS: BP 104/69
--- NOTE | 2022-02-03 14:03 | Anesthesia-General Post-Op ---
MAC Patient Condition Mental Status/LOC: Same as Preop Cardiovascular: Satisfactory Nausea/Vomiting: Absent Respiratory: Satisfactory Pain: Controlled Complications: Absent Post Op Complications Complications None Follow Up Care/Instructions Patient Instructions None needed. Anesthesiology Discharge Order Discharge Order Patient is doing well, no complaints, stable vital signs, no apparent adverse anesthesia problems. No complications reported per nursing. WYATT BAIG CRNA Feb 03, 2022 14:03
--- NOTE | 2022-02-04 00:13 | OPERATIVE REPORT ---
DATE OF SERVICE: 02/03/2022 PREOPERATIVE DIAGNOSIS: Colonic distention. POSTOPERATIVE DIAGNOSIS: Colonic distention. PROCEDURE: Decompressive colonoscopy with placement of rectal tube. SURGEON: Asaf Ibrahim DO ANESTHESIA: Per [facility]OSP[facility]NSH[facility]. ESTIMATED BLOOD LOSS: None. COMPLICATIONS: None. INDICATIONS: The patient is a 61-year-old male in rehab with colonic distention. He has already had previous colonic distention with decompressive colonoscopy. We tried rectal tube placement yesterday, but was only left in for a short period of time. The patient understands risks and benefits of procedure and wishes to proceed. Consent was signed in the chart. DESCRIPTION OF PROCEDURE: The patient was taken to the endoscopy suite, placed in left lateral recumbent position. Timeout was performed. Digital rectal exam was performed. No palpable polyps, masses or ulcerations. Scope was inserted in the rectum and advanced all the way to the cecum without difficulty. Throughout the colon was distended. Scope was then slowly retracted back suctioning decompressing the entire length of the colon afterwards. His abdomen was significantly decreased compared to where it was initially. The Flexi-Seal rectal tube was then inserted in the rectum. The balloon was inflated and this was assessed with possible further decompression. Job ID: [id number] DocumentID: [id number] Dictated Date: 02/03/2022 14:27:13 Collection Supervisor Date: 02/03/2022 18:21:27 Dictated By: ASAF IBRAHIM DO
[2022-02-10] MEDS ORDERED: POLY17PO54 PO (11:45)
[2022-02-10] MEDS ORDERED: FOLI1TAB33 PO (11:45)
[2022-02-10] MEDS ORDERED: BACL10TA PO (11:45)
[2022-02-10] MEDS ORDERED: BISA10SU8 PR (11:45)
[2022-02-10] MEDS ORDERED: PANT40TA52 PO (11:45)
[2022-02-10] MEDS ORDERED: HYDR-34 PO (11:45)
[2022-02-10] MEDS ORDERED: MULT-1137 PO (11:45)
== END 2022-02-03 12:45 | disposition home or self-care (01) ==
LOC: ENDO 11:26
PROVIDERS: ATTEND Surgery
DX: K63.89 Other specified diseases of intestine (principal); K56.7 Ileus, unspecified; D62 Acute posthemorrhagic anemia; M10.9 Gout, unspecified; J44.9 Chronic obstructive pulmonary disease, unspecified; S22.42XA Multiple fractures of ribs, left side, initial encounter for closed fracture; S36.039A Unspecified laceration of spleen, initial encounter; F41.9 Anxiety disorder, unspecified; F10.20 Alcohol dependence, uncomplicated; Z91.81 History of falling

== ENCOUNTER → 2022-05-20 | Outpatient (CLI) | payer BC ==
[~2022-05-20] MED LIST changes: +BISA10SU8 PR; +FOLI1TAB33 PO; +HYDR-34 PO; +MULT-1137 PO; +PANT40TA52 PO; +POLY17PO54 PO
--- NOTE | 2022-05-20 12:40 | Diagnostic Imaging Report ---
INDICATION: Left elbow pain. TIME OF EXAM: 10:49 AM 3 views of the left elbow were obtained. FINDINGS: There are degenerative changes present. No fracture is seen. There are prominent anterior and posterior fat pad suggestive of joint effusion. This can be seen with an occult fracture. IMPRESSION: Joint effusion. Findings are concerning for occult fracture. Dedicated radius head views may be useful for further evaluation. Dictated by: Dictated on workstation # [id number]
--- NOTE | 2022-05-20 12:42 | Diagnostic Imaging Report ---
INDICATION: Fall. TIME OF EXAM: 10:51 AM 3 views left wrist were obtained. There appears to be a fracture involving the tip of the ulnar styloid. Distal radius appears intact. Carpal bones and metacarpals are intact. There is generalized demineralization and degenerative change. IMPRESSION: Ulnar styloid fracture. No other abnormality is seen. Dictated by: Dictated on workstation # [id number]
--- NOTE | 2022-05-20 12:47 | Diagnostic Imaging Report ---
Indication: Left forearm injury AP and lateral views of left forearm show no acute fracture or dislocation. IMPRESSION: Unremarkable left forearm. Dictated by: Dictated on workstation # [id number]
== END ==
LOC: RAD 10:25
PROVIDERS: ATTEND Internal Medicine
DX: S52.612A Displaced fracture of left ulna styloid process, initial encounter for closed fracture (principal); W19.XXXA Unspecified fall, initial encounter
CPT/HCPCS: 73080; 73090; 73110

== ENCOUNTER → 2022-06-01 | Outpatient (CLI) | payer BC | LOC: ORTHO 08:57 | PROVIDERS: ATTEND Orthopaedic Surgery | DX: S52.611A Displaced fracture of right ulna styloid process, initial encounter for closed fracture (principal); X58.XXXA Exposure to other specified factors, initial encounter | CPT/HCPCS: 99203 ==

== ENCOUNTER → 2022-07-01 | Outpatient (CLI) | payer BC ==
--- NOTE | 2022-07-01 14:46 | Diagnostic Imaging Report ---
INDICATION: Follow-up left wrist fracture. TIME OF EXAM: 9:42 a.m. COMPARISON: Correlation is made with prior radiograph from 05/20/2022. FINDINGS: There is some healing of the ulnar styloid fracture with blurring of the fracture line. Distal radius is intact. Carpus and metacarpals are intact. There is generalized demineralization. IMPRESSION: Healing ulnar styloid fracture. Dictated by: Dictated on workstation # [id number]
== END ==
LOC: ORTHO 09:18
PROVIDERS: ATTEND Orthopaedic Surgery
DX: Z47.89 Encounter for other orthopedic aftercare (principal); S52.612D Displaced fracture of left ulna styloid process, subsequent encounter for closed fracture with routine healing; X58.XXXD Exposure to other specified factors, subsequent encounter
CPT/HCPCS: 73110; G0463; 99213

== ENCOUNTER → 2022-07-07 | Outpatient (RCR) | payer BC | END | disposition home or self-care (01) | PROVIDERS: ATTEND Internal Medicine | DX: I69.334 Monoplegia of upper limb following cerebral infarction affecting left non-dominant side (principal); I10 Essential (primary) hypertension ==

== ENCOUNTER 2022-08-05 10:24 | Outpatient (RCR) | payer BC | END 2022-08-06 | disposition home or self-care (01) | PROVIDERS: ATTEND Internal Medicine | DX: I69.334 Monoplegia of upper limb following cerebral infarction affecting left non-dominant side (principal); M79.602 Pain in left arm; I10 Essential (primary) hypertension ==

== ENCOUNTER 2022-08-25 12:44 | Outpatient (RCR) | payer BC | END 2022-09-06 | disposition home or self-care (01) | PROVIDERS: ATTEND Internal Medicine | DX: I69.334 Monoplegia of upper limb following cerebral infarction affecting left non-dominant side (principal); M79.602 Pain in left arm; I10 Essential (primary) hypertension ==

== ENCOUNTER → 2022-08-31 | Outpatient (CLI) | payer BC ==
--- NOTE | 2022-08-31 10:33 | Diagnostic Imaging Report ---
INDICATION: PAIN OF LEFT KNEE JOINT TECHNIQUE: 4 views of the left knee CORRELATION STUDY: None FINDINGS: Moderate joint space narrowing medial compartment with marginal osteophyte formation. Lateral compartment better maintained. Articular surface appears smooth. Prominent spur like formation superior and inferior pole of the patella. Small suprapatellar joint effusion. IMPRESSION: 1. Negative for acute bony abnormality of the knee. Mild to moderate multicompartment degenerative changes left knee. Most pronounced at the medial and patellofemoral compartments. Dictated by: Dictated on workstation # [id number]
== END ==
LOC: ORTHO 09:39
PROVIDERS: ATTEND Orthopaedic Surgery
DX: M17.12 Unilateral primary osteoarthritis, left knee (principal)
CPT/HCPCS: 20610; 73564; G0463

== ENCOUNTER 2022-09-11 15:02 | Emergency (ER) | payer BC ==
[~2022-09-11] VITALS: Ht 187.9 cm; Wt 104.3 kg
[2022-09-11 15:54] LABS: BASOPHILS # (AUTO) 0.1 10^3/uL (0.0-0.1); BASOPHILS % (AUTO) 1 % (0-10); EOSINOPHILS % (AUTO) 0 % (0-10); HEMATOCRIT 43 % (40-54); HEMOGLOBIN 14.5 g/dL (13.3-17.7); LYMPHOCYTES # (AUTO) 1.5 X 10^3 (1.0-4.0); LYMPHOCYTES % (AUTO) 14 % (12-44); MEAN CORPUSCULAR HEMOGLOBIN 36 pg (25-34); MEAN CORPUSCULAR HGB CONC 34 g/dL (32-36); MEAN CORPUSCULAR VOLUME 104 fL (80-99); MEAN PLATELET VOLUME 9.4 fL (9.0-12.2); MONOCYTES # (AUTO) 0.8 X 10^3 (0.0-1.0); MONOCYTES % (AUTO) 7 % (0-12); NEUTROPHILS # (AUTO) 8.1 X 10^3 (1.8-7.8); NEUTROPHILS % (AUTO) 78 % (42-75); PLATELET COUNT 240 10^3/uL (130-400); WHITE BLOOD COUNT 10.4 10^3/uL (4.3-11.0)
[2022-09-11 15:58] LABS: ALBUMIN 3.5 GM/DL (3.2-4.5); POTASSIUM 3.8 MMOL/L (3.6-5.0)
[2022-09-11 15:59] LABS: CALCIUM 9.1 MG/DL (8.5-10.1)
[2022-09-11 16:01] LABS: TOTAL PROTEIN 7.4 GM/DL (6.4-8.2)
[2022-09-11 16:02] LABS: BILIRUBIN,TOTAL 1.5 MG/DL (0.1-1.0)
[2022-09-11 16:04] LABS: CREATININE SERUM 0.83 MG/DL (0.60-1.30)
[2022-09-11 16:24] LABS: BILIRUBIN,URINE NEGATIVE (NEGATIVE); CLARITY,URINE CLOUDY; COLOR,URINE YELLOW; GLUCOSE, URINE (UA) NEGATIVE (NEGATIVE); KETONES,URINE NEGATIVE (NEGATIVE); LEUKOCYTE ESTERASE ,URINE NEGATIVE (NEGATIVE); NITRITE,URINE NEGATIVE (NEGATIVE); PROTEIN,URINE NEGATIVE (NEGATIVE)
[2022-09-11 16:29] LABS: SMEAR SCAN COMMENT YES
[2022-09-11 16:35] LABS: BACTERIA,URINE NEGATIVE /HPF; SQUAMOUS EPITHELIAL CELL,UR 0-2 /HPF; WBC,URINE RARE /HPF
[2022-09-11 16:36] LABS: HYALINE CASTS, URINE RARE /LPF
--- NOTE | 2022-09-11 16:49 | ED General ---
General Chief Complaint: General Problems/Pain Stated Complaint: RETAINING FLUID Nursing Triage Note: CONCERNED ABOUT EXTRA FLUID RETENTION FOR THE LAST 3 DAYS AND STATES THE LASIX DOESNT SEEM TO BE HELPING. Source of Information: Patient, Family Exam Limitations: No Limitations History of Present Illness Date Seen by Provider: Sep 11, 2022 Time Seen by Provider: 15:30 Initial Comments Patient is a 61-year-old male status post stroke with left-sided resultant hemiparesis who presents to the emergency room with a chief complaint of increased swelling in his hands and legs. Patient is on Lasix 40 mg every other day per his primary care physician. He states he has been taking it daily recently. He is primarily sedentary although he can get up and move around/walk with assistance. He reports that he is drinking alcohol daily. He has a longstanding history of chronic alcohol use/abuse. He does state that he is quite depressed, he cannot find joleen and any activities of daily living. 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 His and mother are at the bedside. He is not on an antidepressant. He denies shortness of breath, orthopnea. No chest pain. No abdominal pain, nausea, vomiting or diarrhea. His appetite has been "okay". No problems with urination. All other review of systems reviewed and negative except as stated Timing/Duration: 2-3 Days Severity: Moderate Associated Systoms: Denies Symptoms Allergies and Home Medications Allergies Coded Allergies: Sulfa (Sulfonamide Antibiotics) (Verified Allergy, Unknown, 09/11/22) Uncoded Allergies: SULFA (Allergy, Unknown, 01/24/22) Patient Home Medication List Home Medication List Reviewed: Yes Acetaminophen (Tylenol Extra Strength) 500 Mg Tablet, 1,000 MG PO Q8H PRN for PAIN-MILD (1-4), (Reported) Entered as Reported by: AVA BELTRÁN on 01/25/22 1015 Atenolol (Atenolol) 25 Mg Tablet, 25 MG PO DAILY, (Reported) Entered as Reported by: AVA BELTRÁN on 09/09/20 1526 Baclofen (Baclofen) 10 Mg Tablet, 10 MG PO TID PRN for MUSCLE SPASMS Prescribed by: HARDY CAMPBELL on 02/10/22 1145 Bisacodyl (Bisacodyl) 10 Mg Supp.rect, 10 MG ID DAILY PRN for CONSTIPATION-3RD LINE Prescribed by: HARDY CAMPBELL on 02/10/22 1145 Folic Acid (Folic Acid) 1 Mg Tablet, 1 MG PO DAILY Prescribed by: AHRDY CAMPBELL on 02/10/22 1145 Hydrocodone Bit/Acetaminophen (HYDROcodone/APAP 7.5/325 TAB) 1 Ea Tablet, 1 EA PO Q8HR PRN for PAIN-MODERATE (5-7) Prescribed by: HARDY CAMPBELL on 02/10/22 1146 Ibuprofen (Advil) 200 Mg Capsule, 400 MG PO Q8H PRN for PAIN-MILD (1-4), (Reported) Entered as Reported by: AVA BELTRÁN on 01/25/22 1015 Lorazepam (Ativan) 0.5 Mg Tablet, 0.5 MG PO BID PRN for ANXIETY, (Reported) Entered as Reported by: AVA BELTRÁN on 09/09/20 1526 Magnesium Oxide (Magnesium Oxide) 400 Mg Tablet, 400 MG PO DAILY, (Reported) Entered as Reported by: AVA BELTRÁN on 01/25/22 1015 Multivitamin/Iron/Folic Acid (Tab-A-Francesco Multivit with Iron) 1 Each Tablet, 1 EA PO DAILY@0700 Prescribed by: HARDY CAMPBELL on 02/10/22 1145 Pantoprazole Sodium (Pantoprazole Sodium) 40 Mg Tablet.dr, 40 MG PO DAILY Prescribed by: HARDY CAMPBELL on 02/10/22 1145 Polyethylene Glycol 3350 (Polyethylene Glycol 3350) 17 Gm Powd.pack, 17 GM PO BID Prescribed by: HARDY CAMPBELL on 02/10/22 1145 Potassium Chloride (Klor-Con 10) 10 Meq Tablet.er, 10 MEQ PO DAILY, (Reported) Entered as Reported by: AVA BELTRÁN on 01/25/22 1016 Review of Systems Review of Systems Constitutional: see HPI EENTM: no symptoms reported Respiratory: no symptoms reported; No cough, No wheezing Cardiovascular: no symptoms reported (and hands); No chest pain; edema Gastrointestinal: no symptoms reported Genitourinary: no symptoms reported Musculoskeletal: no symptoms reported Skin: no symptoms reported Psychiatric/Neurological: Depressed, Other (endorses daily alcohol use; no SI/HI) Hematologic/Lymphatic: No Symptoms Reported All Other Systems Reviewed Negative Unless Noted: Yes Past Vmscaft-Yethwg-Neicuz Hx Patient Social History Tobacco Use?: No Substance use?: No Alcohol Use?: Yes Alcohol type: Hard Liquor Alcohol Frequency: Daily Immunizations Up To Date PED Vaccines UTD: Yes Influenza Vaccine Up-to-Date: No; Not Current First/Initial COVID19 Vaccinat: 2020 Second COVID19 Vaccination Tiburcio: 2020 Third COVID19 Vaccination Date: 2020 Seasonal Allergies Seasonal Allergies: Yes Past Medical History Surgery/Hospitalization HX: HTN, AFIB, CARDIAC STENTS, ANX/DEP, ETOH, STROKE- L SIDE WKNS, LIVER?-HEP B?, PVD, NEUROPATHY, BENIGN TUMOR ON BLADDER. Surgeries: Yes (20 YEARS AGO TUMOR REMOVED ( NON CANCER ) ON BLADDER) Respiratory: No COPD Currently Using CPAP: No Currently Using BIPAP: No Cardiac: Yes (MITRAL VALVE PROLAPSE) High Cholesterol, Hypertension Neurological: Yes Neuropathy, Stroke Sexually Transmitted Disease: No HIV/AIDS: No Genitourinary: No Renal Failure Gastrointestinal: Yes (IBS) Chronic Diarrhea, Irritable Bowel Musculoskeletal: Yes Arthritis, Chronic Back Pain Endocrine: No HEENT: Yes Hearing Impairment: Hard of Hearing Cancer: No Psychosocial: Yes (Alcohol dependence) Anxiety Integumentary: Yes (currently being treated by wound care for wound on R foot) Blood Disorders: No Adverse Reaction/Blood Tranf: No Family Medical History FH: neuropathy 19 MOTHER Mitral valve prolapse 19 MOTHER No Pertinent Family Hx Physical Exam Vital Signs Vital Signs - First Documented 09/11/22 15:10 Temp 37.1 Pulse 81 Resp 18 B/P (MAP) 152/81 (104) Pulse Ox 97 O2 Delivery Room Air Capillary Refill : Less Than 3 Seconds Height, Weight, BMI Height: 6'2.00" Weight: 220lbs. 8.8oz. [id number]; 29.00 BMI Method:Stated General Appearance: No Apparent Distress, WD/WN Eyes: Bilateral Eye Normal Inspection, Bilateral Eye PERRL, Bilateral Eye EOMI HEENT: PERRL/EOMI Neck: Normal Inspection Respiratory: Lungs Clear, Normal Breath Sounds, No Accessory Muscle Use, No Respiratory Distress Cardiovascular: Regular Rate, Rhythm Gastrointestinal: Non Tender, Soft, Other (obese) Extremity: Normal Range of Motion, Pedal Edema (3+) Neurologic/Psychiatric: Alert, Oriented x3, Depressed Affect, Other (residula weakness left sided from prior ischemic stroke) Skin: Warm/Dry Progress/Results/Core Measures Suspected Sepsis SIRS Temperature: Pulse: 81 Respiratory Rate: 18 Laboratory Tests 09/11/22 15:35: White Blood Count 10.4 Blood Pressure 152 /81 Mean: 104 Laboratory Tests 09/11/22 15:35: Creatinine 0.83, Platelet Count 240, Total Bilirubin 1.5H Results/Orders Lab Results Laboratory Tests Test 09/11/22 15:35 09/11/22 16:14 Range/Units White Blood Count 10.4 4.3-11.0 10^3/uL Red Blood Count 4.08 L 4.30-5.52 10^6/uL Hemoglobin 14.5 13.3-17.7 g/dL Hematocrit 43 40-54 % Mean Corpuscular Volume 104 H 80-99 fL Mean Corpuscular Hemoglobin 36 H 25-34 pg Mean Corpuscular Hemoglobin Concent 34 32-36 g/dL Red Cell Distribution Width 13.5 10.0-14.5 % Platelet Count 240 130-400 10^3/uL Mean Platelet Volume 9.4 9.0-12.2 fL Immature Granulocyte % (Auto) 0 % Neutrophils (%) (Auto) 78 H 42-75 % Lymphocytes (%) (Auto) 14 12-44 % Monocytes (%) (Auto) 7 0-12 % Eosinophils (%) (Auto) 0 0-10 % Basophils (%) (Auto) 1 0-10 % Neutrophils # (Auto) 8.1 H 1.8-7.8 X 10^3 Lymphocytes # (Auto) 1.5 1.0-4.0 X 10^3 Monocytes # (Auto) 0.8 0.0-1.0 X 10^3 Eosinophils # (Auto) 0.0 0.0-0.3 10^3/uL Basophils # (Auto) 0.1 0.0-0.1 10^3/uL Immature Granulocyte # (Auto) 0.0 0.0-0.1 10^3/uL Sodium Level 139 135-145 MMOL/L Potassium Level 3.8 3.6-5.0 MMOL/L Chloride Level 100 98-107 MMOL/L Carbon Dioxide Level 25 21-32 MMOL/L Anion Gap 14 5-14 MMOL/L Blood Urea Nitrogen 11 7-18 MG/DL Creatinine 0.83 0.60-1.30 MG/DL Estimat Glomerular Filtration Rate 101 BUN/Creatinine Ratio 13 Glucose Level 108 H 70-105 MG/DL Calcium Level 9.1 8.5-10.1 MG/DL Corrected Calcium 9.5 8.5-10.1 MG/DL Total Bilirubin 1.5 H 0.1-1.0 MG/DL Aspartate Amino Transf (AST/SGOT) 104 H 5-34 U/L Alanine Aminotransferase (ALT/SGPT) 34 0-55 U/L Alkaline Phosphatase 177 H 40-136 U/L Total Protein 7.4 6.4-8.2 GM/DL Albumin 3.5 3.2-4.5 GM/DL Smear Scan YES Urine Color YELLOW Urine Clarity CLOUDY Urine pH 6.0 5-9 Urine Specific [place] 1.015 L 1.016-1.022 Urine Protein NEGATIVE NEGATIVE Urine Glucose (UA) NEGATIVE NEGATIVE Urine Ketones NEGATIVE NEGATIVE Urine Nitrite NEGATIVE NEGATIVE Urine Bilirubin NEGATIVE NEGATIVE Urine Urobilinogen 1.0 < = 1.0 MG/DL Urine Leukocyte Esterase NEGATIVE NEGATIVE Urine RBC (Auto) NEGATIVE NEGATIVE Urine RBC NONE /HPF Urine WBC RARE /HPF Urine Squamous Epithelial Cells 0-2 /HPF Urine Crystals NONE /LPF Urine Bacteria NEGATIVE /HPF Urine Casts PRESENT /LPF Urine Hyaline Casts RARE /LPF Urine Mucus NEGATIVE /LPF Urine Culture Indicated NO My Orders Orders - MICHAELLE LÓPEZ MD Cbc With Automated Diff (09/11/22 15:45) Comprehensive Metabolic Panel (09/11/22 15:45) Ua Culture If Indicated (09/11/22 15:45) Ed Iv/Invasive Line Start (09/11/22 15:45) Vital Signs/I&O 09/11/22 09/11/22 15:10 17:18 Temp 37.1 36.3 Pulse 81 79 Resp 18 18 B/P (MAP) 152/81 (104) 152/79 Pulse Ox 97 97 O2 Delivery Room Air Room Air Capillary Refill : Less Than 3 Seconds Blood Pressure Mean: 104 Departure Impression Primary Impression: Edema Qualified Codes: R60.9 - Edema, unspecified Disposition: 01 HOME, SELF-CARE Condition: Stable Departure-Patient Inst. Decision time for Depature: 16:47 Referrals: HARDY CAMPBELL DO (PCP/Family) Primary Care Physician Patient Instructions: Low Salt Diet, Swelling Add. Discharge Instructions: Take your Lasix early in the day every day for the next 3 days. Continue your potassium as prescribed. Please call Dr. Campbell's office on Tuesday for a follow-up appointment next week. If you develop worsening swelling especially with shortness of breath, coughing up bloody sputum, chest pain please come back to the emergency department for reevaluation. Try and avoid excessive salt in your diet because this will cause you to retain extra fluid. Try and cut back on your alcohol intake. Return to the emergency department for any other new, concerning or emergent complaints. Copy Copies To 1: HARDY CAMPBELL KATHRYN M MD Sep 11, 2022 16:49
[2022-09-11 17:18] VITALS: BP 152/79
== END 2022-09-11 17:18 | disposition home or self-care (01) ==
LOC: EDUNIT# 15:02 → ER 15:06
DX: R60.9 Edema, unspecified (principal)
CPT/HCPCS: 36415; 80053; 81000; 85025; 99282

== ENCOUNTER 2022-10-04 10:58 | Outpatient (RCR) | payer BC | END 2022-10-06 | disposition home or self-care (01) | PROVIDERS: ATTEND Internal Medicine | DX: I69.354 Hemiplegia and hemiparesis following cerebral infarction affecting left non-dominant side (principal); M79.602 Pain in left arm; I10 Essential (primary) hypertension ==

== ENCOUNTER 2022-10-15 11:19 | Outpatient (RCR) | payer BC | END 2022-10-15 12:05 | disposition home or self-care (01) | PROVIDERS: ATTEND Internal Medicine | DX: I69.30 Unspecified sequelae of cerebral infarction (principal); M79.602 Pain in left arm; I10 Essential (primary) hypertension; R63.1 Polydipsia ==

== ENCOUNTER → 2022-10-21 | Outpatient (CLI) | payer BC | LOC: WOUNDCARE 13:28 | PROVIDERS: ATTEND Family Medicine | DX: S81.812A Laceration without foreign body, left lower leg, initial encounter (principal); W55.03XA Scratched by cat, initial encounter; I89.0 Lymphedema, not elsewhere classified; I87.332 Chronic venous hypertension (idiopathic) with ulcer and inflammation of left lower extremity; G90.09 Other idiopathic peripheral autonomic neuropathy; G81.94 Hemiplegia, unspecified affecting left nondominant side | CPT/HCPCS: 87070; 87205; A6197; G0463; 87077; 99213 ==

== ENCOUNTER → 2022-11-04 | Outpatient (CLI) | payer BC | LOC: WOUNDCARE 12:30 | PROVIDERS: ATTEND Family Medicine | DX: S81.812A Laceration without foreign body, left lower leg, initial encounter (principal); W55.03XA Scratched by cat, initial encounter; I89.0 Lymphedema, not elsewhere classified; I87.332 Chronic venous hypertension (idiopathic) with ulcer and inflammation of left lower extremity; G90.09 Other idiopathic peripheral autonomic neuropathy; G81.94 Hemiplegia, unspecified affecting left nondominant side | CPT/HCPCS: 11042; G0463 ==

== ENCOUNTER → 2022-11-20 | Outpatient (CLI) | payer BC ==
--- NOTE | 2022-11-20 12:58 | Diagnostic Imaging Report ---
INDICATION: Pneumonia, congestive heart failure, followup. TECHNIQUE: Two view chest 12:53 PM CORRELATION STUDY: 09/11/2020 FINDINGS: Combination of effusions along with the consolidation with atelectasis or infiltrate left lung base. Right lung generally clear. Heart size, mediastinum and vasculature within normal limits. Loop recorder device has been placed projecting over the left hilum anteriorly. IMPRESSION: 1. Development of a small to moderate left pleural effusion with atelectasis, infiltrate or edema at left lung base. Dictated by: Dictated on workstation # [id number]
[2022-11-20 13:06] LABS: BASOPHILS # (AUTO) 0.1 10^3/uL (0.0-0.1); BASOPHILS % (AUTO) 1 % (0-10); EOSINOPHILS % (AUTO) 0 % (0-10); HEMATOCRIT 38 % (40-54); HEMOGLOBIN 13.1 g/dL (13.3-17.7); LYMPHOCYTES # (AUTO) 1.5 10^3/uL (1.0-4.0); LYMPHOCYTES % (AUTO) 11 % (12-44); MEAN CORPUSCULAR HEMOGLOBIN 37 pg (25-34); MEAN CORPUSCULAR HGB CONC 35 g/dL (32-36); MEAN CORPUSCULAR VOLUME 105 fL (80-99); MEAN PLATELET VOLUME 9.7 fL (9.0-12.2); MONOCYTES # (AUTO) 0.9 10^3/uL (0.0-1.0); MONOCYTES % (AUTO) 6 % (0-12); NEUTROPHILS # (AUTO) 10.8 10^3/uL (1.8-7.8); NEUTROPHILS % (AUTO) 81 % (42-75); PLATELET COUNT 245 10^3/uL (130-400); WHITE BLOOD COUNT 13.3 10^3/uL (4.3-11.0)
[2022-11-20 13:43] LABS: ALBUMIN 3.3 GM/DL (3.2-4.5); BILIRUBIN,TOTAL 1.6 MG/DL (0.1-1.0); CALCIUM 8.3 MG/DL (8.5-10.1); CREATININE SERUM 0.81 MG/DL (0.60-1.30); POTASSIUM 3.3 MMOL/L (3.6-5.0); TOTAL PROTEIN 6.6 GM/DL (6.4-8.2)
== END ==
LOC: LAB 12:30
PROVIDERS: ATTEND Registered Nurse Critical Care Medicine
DX: J90 Pleural effusion, not elsewhere classified (principal); J98.11 Atelectasis
CPT/HCPCS: 36415; 71046; 80053; 83880; 85025

== ENCOUNTER 2022-12-06 09:19 | Inpatient (IN) | payer BC ==
[~2022-12-06] VITALS: Ht 188 cm; Wt 100.0 kg
[2022-12-06 09:47] LABS: BASOPHILS # (AUTO) 0.1 10^3/uL (0.0-0.1); BASOPHILS % (AUTO) 0 % (0-10); EOSINOPHILS # (AUTO) 0.1 10^3/uL (0.0-0.3); EOSINOPHILS % (AUTO) 1 % (0-10); HEMATOCRIT 35 % (40-54); HEMOGLOBIN 12.1 g/dL (13.3-17.7); LYMPHOCYTES # (AUTO) 1.3 10^3/uL (1.0-4.0); LYMPHOCYTES % (AUTO) 10 % (12-44); MEAN CORPUSCULAR HEMOGLOBIN 36 pg (25-34); MEAN CORPUSCULAR HGB CONC 35 g/dL (32-36); MEAN CORPUSCULAR VOLUME 102 fL (80-99); MEAN PLATELET VOLUME 9.7 fL (9.0-12.2); MONOCYTES # (AUTO) 0.8 10^3/uL (0.0-1.0); MONOCYTES % (AUTO) 6 % (0-12); NEUTROPHILS # (AUTO) 10.6 10^3/uL (1.8-7.8); NEUTROPHILS % (AUTO) 82 % (42-75); PLATELET COUNT 153 10^3/uL (130-400); WHITE BLOOD COUNT 12.9 10^3/uL (4.3-11.0)
--- NOTE | 2022-12-06 09:53 | ED General ---
General Chief Complaint: General Problems/Pain Stated Complaint: WEAKNESS Nursing Triage Note: PT TO [facility] BY [facility] WITH C/O WEAKNESS ONGOING FOR APPROX 1 MO. PT STATES HE WAS DX WITH PNEUMONIA AT URGENT CARE ABOUT A MONTH AGO BUT HAS HAD INCREASED WEAKNESS SINCE Source of Information: Patient Exam Limitations: No Limitations History of Present Illness Date Seen by Provider: Dec 06, 2022 Time Seen by Provider: 09:21 Initial Comments This is 62-year-old gentleman presents to the emergency room via EMS with primary complaint of lower extremity edema and debility. He is unable to walk down the stairs today. He does not feel he is having an emergent life- threatening problem but could not get out of the home. He therefore decided to activate EMS to bring him to the hospital for evaluation. He has had worsening lower extremity edema recently despite using diuretic therapy. He denies any history of heart failure or liver failure. He does drink alcohol in a quantity of approximately 4 to 5 glasses of rum and Pepsi per day. He does express desire and knowledge that he needs to quit drinking. He reports being treated for pneumonia twice in recent weeks. He reports short-term improvement but is getting weak during the process. He reports an uncomfortable feeling in his chest when he takes a deep breath. He denies any current fever or cough. His primary care provider is Dr. Campbell and his gate tender is Dr. Walker. In reviewing his medication filling record, it is noted that he has been on 3 different rounds of oral antibiotics since October 25. There was prior documentation of coronary stents and atrial fibrillation and nursing triage recalled information. Patient denies history of these conditions, and I could not find any evidence of them in review of cardiac notes in his chart. Allergies and Home Medications Allergies Coded Allergies: Sulfa (Sulfonamide Antibiotics) (Verified Allergy, Unknown, 09/11/22) Uncoded Allergies: SULFA (Allergy, Unknown, 01/24/22) Patient Home Medication List Home Medication List Reviewed: Yes Albuterol Sulfate (Proventil Hfa) 6.7 Gm Hfa.aer.ad, 1 PUFF PO Q6H PRN for SHORTNESS OF BREATH, (Reported) Entered as Reported by: AIXA TAYLOR on 12/06/22 5493 Last Action: Held Albuterol Sulfate (Albuterol Sulfate) 2.5 Mg/3 Ml (0.083 %) Vial.neb, 1 VIAL PO BID PRN for SHORTNESS OF BREATH, (Reported) Entered as Reported by: AIXA TAYLOR on 12/06/22 1336 Last Action: Held Atenolol (Atenolol) 25 Mg Tablet, 25 MG PO DAILY, (Reported) Entered as Reported by: AVA BELTRÁN on 09/09/20 1526 Last Action: Continued Folic Acid (Folic Acid) 1 Mg Tablet, 1 MG PO DAILY, (Reported) Entered as Reported by: AIXA TAYLOR on 12/06/22 1337 Last Action: Continued Furosemide (Furosemide) 40 Mg Tablet, 40 MG PO DAILY PRN for FLUID RETENTION, (Reported) Entered as Reported by: AIXA TAYLOR on 12/06/22 1336 Last Action: Held Ibuprofen (Advil) 200 Mg Capsule, 400 MG PO Q8H PRN for PAIN-MILD (1-4), (Reported) Entered as Reported by: AVA BELTRÁN on 01/25/22 1015 Last Action: Held Lorazepam (Ativan) 0.5 Mg Tablet, 0.5 MG PO BID PRN for ANXIETY, (Reported) Entered as Reported by: AVA BELTRÁN on 09/09/20 1526 Last Action: Held Magnesium Oxide (Magnesium Oxide) 400 Mg Tablet, 400 MG PO DAILY, (Reported) Entered as Reported by: AVA BELTRÁN on 01/25/22 1015 Last Action: Continued Multivitamin (Multi-Vitamin Daily) 1 Each Tablet, 1 EACH PO DAILY, (Reported) Entered as Reported by: AIXA TAYLOR on 12/06/22 1338 Last Action: Held Pantoprazole Sodium (Pantoprazole Sodium) 40 Mg Tablet.dr, 40 MG PO DAILY, (Reported) Entered as Reported by: AIXA TAYLOR on 12/06/22 1334 Last Action: Continued Potassium Chloride (Klor-Con 10) 10 Meq Tablet.er, 10 MEQ PO DAILY, (Reported) Entered as Reported by: AVA BELTRÁN on 01/25/22 1016 Last Action: Continued Review of Systems Review of Systems Constitutional: see HPI, weakness (Debility) EENTM: no symptoms reported Respiratory: see HPI Cardiovascular: see HPI, edema Gastrointestinal: no symptoms reported Genitourinary: no symptoms reported Musculoskeletal: see HPI Skin: other (Sacral decubitus ulcers) Psychiatric/Neurological: No Symptoms Reported Hematologic/Lymphatic: No Symptoms Reported Immunological/Allergic: no symptoms reported Past Swipdmd-Ecqwhn-Lbtnbp Hx Patient Social History Tobacco Use?: No Smoking Status: Former Smoker Substance use?: No Alcohol Use?: Yes Alcohol type: Hard Liquor Alcohol Frequency: Daily Pt feels they are or have been: No Immunizations Up To Date PED Vaccines UTD: Yes Influenza Vaccine Up-to-Date: No; Not Current First/Initial COVID19 Vaccinat: 2020 Second COVID19 Vaccination Tiburcio: 2020 Third COVID19 Vaccination Date: 2020 Seasonal Allergies Seasonal Allergies: Yes Past Medical History Surgery/Hospitalization HX: HTN, ANX/DEP, ETOH, STROKE- L SIDE WKNS, LIVER?-HEP B?, PVD, NEUROPATHY, BENIGN TUMOR ON BLADDER. Surgeries: Yes (20 YEARS AGO TUMOR REMOVED ( NON CANCER ) ON BLADDER) Respiratory: Yes COPD Currently Using CPAP: No Currently Using BIPAP: No Cardiac: Yes (MITRAL VALVE PROLAPSE) Chronic Edema/Swelling, High Cholesterol, Hypertension Neurological: Yes Neuropathy, Stroke (With left-sided weakness) Sexually Transmitted Disease: No HIV/AIDS: No Genitourinary: Yes Renal Failure Gastrointestinal: Yes (IBS) Chronic Diarrhea, Irritable Bowel Musculoskeletal: Yes Arthritis, Chronic Back Pain Endocrine: No HEENT: Yes Hearing Impairment: Hard of Hearing Cancer: No Psychosocial: Yes (Alcohol dependence) Anxiety Integumentary: Yes (currently being treated by wound care for wound on R foot) Blood Disorders: No Adverse Reaction/Blood Tranf: No Family Medical History FH: neuropathy 19 MOTHER Mitral valve prolapse 19 MOTHER No Pertinent Family Hx Physical Exam Vital Signs Vital Signs - First Documented 12/06/22 09:20 Temp 36.0 Pulse 99 Resp 20 B/P (MAP) 136/78 (97) Capillary Refill : Height, Weight, BMI Height: 6'2.00" Weight: 220lbs. 8.8oz. 100.804342qy; 29.00 BMI Method:Stated General Appearance: No Apparent Distress, WD/WN HEENT: PERRL/EOMI, Normal ENT Inspection, Other (Mucous membranes moist) Neck: Normal Inspection; No JVD Respiratory: Lungs Clear, No Accessory Muscle Use; No Crackles; Decreased Breath Sounds (Diminished in bases); No Wheezing Cardiovascular: No JVD, No Murmur, Tachycardia (Mild tachycardia with regular rhythm) Gastrointestinal: Non Tender, Soft Extremity: Pedal Edema, Swelling (Severe pitting lower extremity edema equal bilaterally with generalized inflammatory changes to the skin) Neurologic/Psychiatric: Alert, Oriented x3, No Motor/Sensory Deficits, Normal Mood/Affect Skin: Normal Color, Warm/Dry, Erythema (As above), Other (Erythema and skin breakdown of the sacral area and gluteal cleft) Progress/Results/Core Measures Suspected Sepsis SIRS Temperature: Pulse: 99 Respiratory Rate: 20 Laboratory Tests 12/06/22 09:38: White Blood Count 12.9H Blood Pressure 136 /78 Mean: 97 Laboratory Tests 12/06/22 09:38: Creatinine 0.71, INR Comment 1.0, Platelet Count 153, Total Bilirubin 1.8H Results/Orders Lab Results Laboratory Tests Test 12/06/22 09:38 Range/Units White Blood Count 12.9 H 4.3-11.0 10^3/uL Red Blood Count 3.41 L 4.30-5.52 10^6/uL Hemoglobin 12.1 L 13.3-17.7 g/dL Hematocrit 35 L 40-54 % Mean Corpuscular Volume 102 H 80-99 fL Mean Corpuscular Hemoglobin 36 H 25-34 pg Mean Corpuscular Hemoglobin Concent 35 32-36 g/dL Red Cell Distribution Width 13.2 10.0-14.5 % Platelet Count 153 130-400 10^3/uL Mean Platelet Volume 9.7 9.0-12.2 fL Immature Granulocyte % (Auto) 1 % Neutrophils (%) (Auto) 82 H 42-75 % Lymphocytes (%) (Auto) 10 L 12-44 % Monocytes (%) (Auto) 6 0-12 % Eosinophils (%) (Auto) 1 0-10 % Basophils (%) (Auto) 0 0-10 % Neutrophils # (Auto) 10.6 H 1.8-7.8 10^3/uL Lymphocytes # (Auto) 1.3 1.0-4.0 10^3/uL Monocytes # (Auto) 0.8 0.0-1.0 10^3/uL Eosinophils # (Auto) 0.1 0.0-0.3 10^3/uL Basophils # (Auto) 0.1 0.0-0.1 10^3/uL Immature Granulocyte # (Auto) 0.1 0.0-0.1 10^3/uL Prothrombin Time 13.2 12.2-14.7 SEC INR Comment 1.0 0.8-1.4 Sodium Level 135 135-145 MMOL/L Potassium Level 4.2 3.6-5.0 MMOL/L Chloride Level 97 L 98-107 MMOL/L Carbon Dioxide Level 22 21-32 MMOL/L Anion Gap 16 H 5-14 MMOL/L Blood Urea Nitrogen 10 7-18 MG/DL Creatinine 0.71 0.60-1.30 MG/DL Estimat Glomerular Filtration Rate 105 BUN/Creatinine Ratio 14 Glucose Level 118 H 70-105 MG/DL Calcium Level 8.7 8.5-10.1 MG/DL Corrected Calcium 9.3 8.5-10.1 MG/DL Magnesium Level 1.5 L 1.6-2.4 MG/DL Total Bilirubin 1.8 H 0.1-1.0 MG/DL Aspartate Amino Transf (AST/SGOT) 40 H 5-34 U/L Alanine Aminotransferase (ALT/SGPT) 22 0-55 U/L Alkaline Phosphatase 150 H 40-136 U/L C-Reactive Protein High Sensitivity 5.28 H 0.00-0.50 MG/DL B-Type Natriuretic Peptide 98.3 <100.0 PG/ML Total Protein 6.3 L 6.4-8.2 GM/DL Albumin 3.2 3.2-4.5 GM/DL Serum Alcohol < 10 <10 MG/DL My Orders Orders - EVANGELISTA CUADRA MD Alcohol (12/06/22 09:37) Cbc With Automated Diff (12/06/22 09:37) Comprehensive Metabolic Panel (12/06/22 09:37) Hs C Reactive Protein (12/06/22 09:37) Magnesium (12/06/22 09:37) Protime With Inr (12/06/22 09:37) Ed Iv/Invasive Line Start (12/06/22 09:37) Monitor-Rhythm Ecg Trace Only (12/06/22 09:37) Chest 1 View, Ap/Pa Only (12/06/22 09:37) Bnp [place] (12/06/22 09:37) Blood Culture (12/06/22 11:40) Sputum Culture (12/06/22 11:40) Urinalysis (12/06/22 11:40) Urine Culture (12/06/22 11:40) Vital Signs Adult Sepsis Patie Q15M (12/06/22 11:40) Remove Rings In Anticipation O (12/06/22 11:40) Lactic Acid Analyzer (12/06/22 11:40) Ct Chest W (12/06/22 11:40) Meropenem (Merrem 1000 Mg) (12/06/22 11:45) [place] Screen Physician Request (12/06/22 11:40) Hydrocodone/Apap 5/325 Tablet (Lortab 5 (12/06/22 11:45) Ed Admission (Communication) (12/06/22 11:46) Medications Given in ED Vital Signs/I&O 12/06/22 09:20 Temp 36.0 Pulse 99 Resp 20 B/P (MAP) 136/78 (97) Capillary Refill : Blood Pressure Mean: 97 Progress Note : Time: 12:18 Progress Note After patient was interviewed and examined, labs were obtained. Review of labs noted pertinent abnormalities including leukocytosis, mildly elevated CRP, and mild hypomagnesemia. Chest x-ray revealed consolidation/infiltrate in the left lower lung. Patient is now being treated for persistent pneumonia. Broad- spectrum antibiotics are being administered, starting with meropenem. I discussed the case with Dr. Campbell, his primary care provider and admitting physician. She requested an MRSA nasal swab for screening and a CT of the chest with contrast for further evaluation of this persistent unresolving pneumonia/infiltrate. Meropenem is being administered in the ER along with oral magnesium. Blood cultures and lactic acid were being drawn prior to antibiotic administration. I discussed CODE STATUS with the patient and he requests a DO NOT RESUSCITATE after we discussed risks and benefits of resuscitation efforts and intubation. Patient was given hydrocodone to treat soreness from decubitus ulcers near the sacrum and gluteal cleft. CT of the chest is pending at this time. Diagnostic Imaging Diagonstic Imaging: Xray Plain Films/CT/US/NM/MRI: chest Comments Chest x-ray viewed by me and report reviewed. See report below: NAME: [facility] REC#: [id number] PT STATUS: REG ER : 1960 PHYSICIAN: EVANGELISTA CUADRA MD ADMIT DATE: 12/06/22/ER Signed Date of Exam:12/06/22 CHEST 1 VIEW, AP/PA ONLY INDICATION: Chest discomfort. AP view of chest obtained with comparison made study of 11/20/2022 There is continued left basilar atelectasis and/or pneumonitis blunting left costophrenic sulcus. Left anterior chest wall loop recorder is again noted. Right lung is clear and well expanded. IMPRESSION: Continued left basilar atelectasis and/or pneumonitis with associated left pleural fluid and/or thickening. Dictated by: Dictated on workstation # [id number] Dict: 12/06/22 1026 Trans: 12/06/22 1052 [id number] Interpreted by: AGUSTIN NEWBERRY MD Electronically signed by: AGUSTIN NEWBERRY MD 12/06/22 105 Diagonstic Imaging: CT Plain Films/CT/US/NM/MRI: chest Comments CT chest viewed by me and report below reviewed. NAME: [facility] REC#: [id number] PT STATUS: ADM IN : 1960 PHYSICIAN: EVANGELISTA CUADRA MD ADMIT DATE: 12/06/22 Signed Date of Exam:12/06/22 CT CHEST W PROCEDURE: CT chest with contrast only. TECHNIQUE: Multiple contiguous axial images were obtained through the chest after administration of intravenous contrast. Auto Exposure Controls were utilized during the CT exam to meet ALARA standards for radiation dose reduction. INDICATION: Lower respiratory infection, shortness of breath. FINDINGS: There is atelectasis at the left lung base with an effusion present that layers out to a depth of 2 cm. There are no endobronchial lesions seen. The right lung is clear. There are no pathologically enlarged hilar or mediastinal lymph nodes. IMPRESSION: Left basilar atelectasis with a left pleural effusion. The consolidation includes a small part of the left upper lobe and left lower lobe. Dictated by: Dictated on workstation # [id number] Dict: 12/06/22 1325 Trans: 12/06/22 1451 [id number] Interpreted by: DIDIER QUINTERO MD Electronically signed by: DIDIER QUINTERO MD 12/06/22 1451 Departure Communication (Admissions) Time/Spoke to Admitting Phy: 11:40 Dr. Campbell Impression Primary Impression: Left lower lobe pneumonia Qualified Codes: J18.9 - Pneumonia, unspecified organism Additional Impressions: Debility Peripheral edema Alcohol dependence Qualified Codes: F10.29 - Alcohol dependence with unspecified alcohol- induced disorder Sacral decubitus ulcer Qualified Codes: L89.159 - Pressure ulcer of sacral region, unspecified stage Hypomagnesemia Disposition: ADMITTED INPATIENT Condition: Improved Admissions Decision to Admit Reason: Admit from ER (General) Decision to Admit/Date: Dec 06, 2022 Time/Decision to Admit Time: 11:40 Departure-Patient Inst. Referrals: HARDY CAMPBELL DO (PCP/Family) Primary Care Physician EVANGELISTA CUADRA MD Dec 06, 2022 09:53
[2022-12-06 10:05] LABS: ALANINE AMINOTRANSFERASE 22 U/L (0-55); ALBUMIN 3.2 GM/DL (3.2-4.5); ALKALINE PHOSPHATASE 150 U/L (40-136); BILIRUBIN,TOTAL 1.8 MG/DL (0.1-1.0); BUN/CREATININE RATIO 14; CALCIUM 8.7 MG/DL (8.5-10.1); CARBON DIOXIDE 22 MMOL/L (21-32); CHLORIDE 97 MMOL/L (98-107); CREATININE SERUM 0.71 MG/DL (0.60-1.30); GFR ESTIMATED 105; GLUCOSE 118 MG/DL (70-105); MAGNESIUM 1.5 MG/DL (1.6-2.4); POTASSIUM 4.2 MMOL/L (3.6-5.0); SODIUM 135 MMOL/L (135-145); TOTAL PROTEIN 6.3 GM/DL (6.4-8.2)
[2022-12-06 10:06] LABS: PROTHROMBIN TIME PATIENT 13.2 SEC (12.2-14.7)
--- NOTE | 2022-12-06 10:38 | Diagnostic Imaging Report ---
INDICATION: Chest discomfort. AP view of chest obtained with comparison made study of 11/20/2022 There is continued left basilar atelectasis and/or pneumonitis blunting left costophrenic sulcus. Left anterior chest wall loop recorder is again noted. Right lung is clear and well expanded. IMPRESSION: Continued left basilar atelectasis and/or pneumonitis with associated left pleural fluid and/or thickening. Dictated by: Dictated on workstation # [id number]
[2022-12-06] MEDS ORDERED: HYDROcodone/APAP 5 MG/325 MG (LORTAB) TAB PO ONE (11:45)
[2022-12-06] MEDS ORDERED: MEROPENEM 1,000 MG in NS (IVPB) 100 ML IV ONE (11:45)
[2022-12-06] MEDS ORDERED: NS 100 ML (IVPB) BAG IV ONE (12:00)
[2022-12-06] MEDS ORDERED: IOHEXOL 350 MG/ML 100 ML (OMNIPAQUE 350) VIAL IV ONE (12:00)
[2022-12-06] MEDS ORDERED: MAGNESIUM OXIDE (MAG-OX)400 MG TAB ONE (12:10)
[2022-12-06 12:12] LABS: BILIRUBIN,URINE NEGATIVE (NEGATIVE); CLARITY,URINE CLEAR; COLOR,URINE YELLOW; GLUCOSE, URINE (UA) NEGATIVE (NEGATIVE); KETONES,URINE NEGATIVE (NEGATIVE); LEUKOCYTE ESTERASE ,URINE NEGATIVE (NEGATIVE); NITRITE,URINE NEGATIVE (NEGATIVE); PROTEIN,URINE NEGATIVE (NEGATIVE)
[2022-12-06] MEDS ORDERED: MAGNESIUM OXIDE (MAG-OX)400 MG TAB PO ONE (12:15)
[2022-12-06 12:24] LABS: BACTERIA,URINE NEGATIVE /HPF; SQUAMOUS EPITHELIAL CELL,UR RARE /HPF; WBC,URINE RARE /HPF
[2022-12-06] MEDS ORDERED: polyethylene glycoL POWDER 17 GM (MIRALAX) PACK PO PRN (13:00)
[2022-12-06] MEDS ORDERED: ANTACID SUSP 30 ML UDC (MYLANTA) PO PRN ×2 (13:00)
[2022-12-06] MEDS ORDERED: BISACODYL 10 MG SUPP (DULCOLAX) PR PRN (13:00)
[2022-12-06] MEDS ORDERED: LACTULOSE SYRUP 10GM/15ML (ENULOSE) 30ML UDC PO PRN (13:00)
[2022-12-06] MEDS ORDERED: 1/2 NS IV SOLUTION 1,000 ML IV PRN (13:00)
[2022-12-06] MEDS ORDERED: MILK OF MAGNESIA 400 MG/5 ML 30 ML UDC PO PRN (13:00)
[2022-12-06] MEDS ORDERED: D5 1/2 NS 1000 ML IV SOLUTION 1,000 ML IV PRN (13:00)
[2022-12-06] MEDS ORDERED: diphenhydrAMINE 50 MG/ML INJ (BENADRYL) IVP PRN (13:00)
[2022-12-06] MEDS ORDERED: ONDANSETRON 4 MG (ZOFRAN) ORAL DISSOLVE TAB PO PRN (13:00)
[2022-12-06] MEDS ORDERED: ONDANSETRON 4 MG (ZOFRAN) ORAL DISSOLVE TAB SL PRN (13:00)
[2022-12-06] MEDS ORDERED: LORazepam INJ 2 MG/ML (ATIVAN) VIAL IV PRN (13:00)
[2022-12-06] MEDS ORDERED: MELATONIN 3 MG TABLET PO PRN (13:00)
[2022-12-06] MEDS ORDERED: PHARMACY TO DOSE IV SCH (13:00)
[2022-12-06] MEDS ORDERED: LORazepam INJ 2 MG/ML (ATIVAN) VIAL IM/IV PRN (13:00)
[2022-12-06] MEDS ORDERED: ONDANSETRON 4 MG/2 ML (SDV) Z0FRAN IV PRN ×2 (13:00)
[2022-12-06] MEDS ORDERED: HYDROmorphone 2 MG/ML VIAL (DILAUDID) IV PRN (13:00)
[2022-12-06] MEDS ORDERED: SENNA W/DOCUSATE (SENOKOT S) TABLET PO PRN (13:00)
[2022-12-06] MEDS ORDERED: diphenhydrAMINE 25 MG TAB (BENADRYL) PO PRN (13:00)
[2022-12-06] MEDS ORDERED: ACETAMINOPHEN 325 MG TABLET PO PRN (13:00)
[2022-12-06] MEDS ORDERED: CALCIUM CARBONATE 500 MG (TUMS) TAB.CHEW PO PRN (13:00)
--- NOTE | 2022-12-06 13:24 | History & Physical ---
BRIA PLEITEZ 12/06/22 1324: History of Present Illness History of Present Illness Reason for visit/HPI Mk Vu II, 65 yo M with a past medical history of neuropathy, CVA, and alcohol use disorder among other chronic health conditions, is admitted after presenting to [facility] with a chief complaint of weakness and tightness in his chest. Patient reports he was diagnosed with pneumonia in mid-October at Urgent Care. He has been seen there twice within the past two months. On his first visit, he was given amoxicillin-clavulanate. Later he was prescribed doxycycline, levofloxacin, dexamethasone, and an albuterol inhaler. States he received multiple antibiotic injections. Reports that he does not have trouble breathing, but that when he inhales deeply, there is a tightness in his chest which "takes his breath away". States he has been producing some white phlegm. Denies cough or fevers. His has gotten progressively weaker over time. This morning he was able to independently ambulate to the restroom at home, however he was unable to walk down the few stairs at his home, so EMS was called. He is able to stand from a sitting position, however he has some trouble due to weakness in his left arm from former CVA. Patient was told at Urgent Care that he had fluid on his heart and has a future office appointment scheduled with Dr. Walker. Chava reports pain in his legs from neuropathy. He has sores on his bottom. The swelling in his legs and feet tend to resolve with elevation. He is a former smoker and quit 3 years ago. He admits to daily alcohol use of multiple rum and pepsi drinks. Date of Admission Dec 06, 2022 at 11:47 Date Seen by a Provider: Dec 06, 2022 Time Seen by a Provider: 12:23 I consulted on this patient on 12/06/22 13:06 Attending Physician Romana Campbell DO Admitting Physician Admitting Physician: Romana Campbell DO Attending Physician: Romana Campbell DO Consult Allergies and Home Medications Allergies Coded Allergies: Sulfa (Sulfonamide Antibiotics) (Verified Allergy, Unknown, 09/11/22) Uncoded Allergies: SULFA (Allergy, Unknown, 01/24/22) Patient Home Medication List Home Medication List Reviewed: Yes Albuterol Sulfate (Proventil Hfa) 6.7 Gm Hfa.aer.ad, 1 PUFF PO Q6H PRN for SHORTNESS OF BREATH, (Reported) Entered as Reported by: AIXA TAYLOR on 12/06/22 1335 Last Action: Held Albuterol Sulfate (Albuterol Sulfate) 2.5 Mg/3 Ml (0.083 %) Vial.neb, 1 VIAL PO BID PRN for SHORTNESS OF BREATH, (Reported) Entered as Reported by: AIXA TAYLOR on 12/06/22 1336 Last Action: Held Atenolol (Atenolol) 25 Mg Tablet, 25 MG PO DAILY, (Reported) Entered as Reported by: AVA BELTRÁN on 09/09/20 1526 Last Action: Continued Folic Acid (Folic Acid) 1 Mg Tablet, 1 MG PO DAILY, (Reported) Entered as Reported by: AIXA TAYLOR on 12/06/22 1337 Last Action: Continued Furosemide (Furosemide) 40 Mg Tablet, 40 MG PO DAILY PRN for FLUID RETENTION, (Reported) Entered as Reported by: AIXA TAYLOR on 12/06/22 1336 Last Action: Held Ibuprofen (Advil) 200 Mg Capsule, 400 MG PO Q8H PRN for PAIN-MILD (1-4), (Reported) Entered as Reported by: AVA EBLTRÁN on 01/25/22 1015 Last Action: Held Lorazepam (Ativan) 0.5 Mg Tablet, 0.5 MG PO BID PRN for ANXIETY, (Reported) Entered as Reported by: AVA BELTRÁN on 09/09/20 1526 Last Action: Held Magnesium Oxide (Magnesium Oxide) 400 Mg Tablet, 400 MG PO DAILY, (Reported) Entered as Reported by: AVA BELTRÁN on 01/25/22 1015 Last Action: Continued Multivitamin (Multi-Vitamin Daily) 1 Each Tablet, 1 EACH PO DAILY, (Reported) Entered as Reported by: AIAX TAYLOR on 12/06/22 1338 Last Action: Held Pantoprazole Sodium (Pantoprazole Sodium) 40 Mg Tablet.dr, 40 MG PO DAILY, (Re ported) Entered as Reported by: AIXA TAYLOR on 12/06/22 1334 Last Action: Continued Potassium Chloride (Klor-Con 10) 10 Meq Tablet.er, 10 MEQ PO DAILY, (Reported) Entered as Reported by: AVA BELTRÁN on 3/21/22 1016 Last Action: Continued Past Fanjrmr-Lguyyx-Eyrfjs Hx Patient Social History Marrital Status: Tobacco Use?: No Smoking Status: Former Smoker Smokeless Tobacco Frequency: Former User Substance use?: No Alcohol Use?: Yes Alcohol type: Hard Liquor Alcohol Frequency: Daily Pt feels they are or have been: No Immunizations Up To Date First/Initial COVID19 Vaccinat: 2020 Second COVID19 Vaccination Tiburcio: 2020 Tetanus Booster (TDap): Unknown Hepatitis A: No PED Vaccines UTD: Yes Seasonal Allergies Seasonal Allergies: Yes Current Status Communicates: Verbally Primary Language: Sudanese Preferred Spoken Language: Sudanese Past Medical History COPD Currently Using CPAP: No Currently Using BIPAP: No Chronic Edema/Swelling, High Cholesterol, Hypertension Neuropathy, Stroke (With left-sided weakness) Sexually Transmitted Disease: No HIV/AIDS: No Renal Failure Chronic Diarrhea, Irritable Bowel Arthritis, Chronic Back Pain Hearing Impairment: Hard of Hearing Anxiety Blood Disorders: No Adverse Reaction/Blood Tranf: No Family Medical History FH: neuropathy 19 MOTHER Mitral valve prolapse 19 MOTHER No Pertinent Family Hx, Heart Disease (Afib in mother and heart disease in brothers) Review of Systems Constitutional: No fever; weakness EENTM: hearing loss Respiratory: No cough; phlegm; No short of breath Cardiovascular: No chest pain Gastrointestinal: No abdominal pain, No nausea, No vomiting Skin: change in color (redness in legs) Psychiatric/Neurological: Anxiety Physical Exam Vital Signs Vital Signs - First Documented 12/06/22 09:20 Temp 36.0 Pulse 99 Resp 20 B/P (MAP) 136/78 (97) Capillary Refill : Height, Weight, BMI Height: 6'2.00" Weight: 220lbs. 8.8oz. [id number]; 29.00 BMI Method:Stated General Appearance: No Apparent Distress, Obese Eyes: Bilateral Eye PERRL, Bilateral Eye EOMI HEENT: PERRL/EOMI, Moist Mucous Membranes; No Scleral Icterus (L), No Scleral Icterus (R) Neck: Full Range of Motion, Non Tender, Supple Respiratory: Lungs Clear, Normal Breath Sounds; No Crackles, No Wheezing Cardiovascular: Regular Rate, Rhythm, No Edema, No Murmur Gastrointestinal: Normal Bowel Sounds, Non Tender, Soft, Distended; No Guarding Rectal: Deferred Back: No Vertebral Tenderness Extremity: Pedal Edema, Swelling Neurologic/Psychiatric: Alert, Oriented x3, caser up II-XII Norm as Tested Skin: Warm/Dry, Erythema (bilateral legs) Lymphatic: No Adenopathy ROMANA CAMPBELL DO 12/07/22 0524: Allergies and Home Medications Allergies Coded Allergies: Sulfa (Sulfonamide Antibiotics) (Verified Allergy, Unknown, 09/11/22) Uncoded Allergies: SULFA (Allergy, Unknown, 01/24/22) Patient Home Medication List Home Medication List Reviewed: Yes Albuterol Sulfate (Proventil Hfa) 6.7 Gm Hfa.aer.ad, 1 PUFF PO Q6H PRN for SHORTNESS OF BREATH, (Reported) Entered as Reported by: AIXA TAYLOR on 12/06/22 133 Last Action: Held Albuterol Sulfate (Albuterol Sulfate) 2.5 Mg/3 Ml (0.083 %) Vial.neb, 1 VIAL PO BID PRN for SHORTNESS OF BREATH, (Reported) Entered as Reported by: AIXA TAYLOR on 12/06/22 133 Last Action: Held Atenolol (Atenolol) 25 Mg Tablet, 25 MG PO DAILY, (Reported) Entered as Reported by: AVA BELTRÁN on 09/09/20 1526 Last Action: Continued Folic Acid (Folic Acid) 1 Mg Tablet, 1 MG PO DAILY, (Reported) Entered as Reported by: AIXA TAYLOR on 12/06/22 1337 Last Action: Continued Furosemide (Furosemide) 40 Mg Tablet, 40 MG PO DAILY PRN for FLUID RETENTION, (Reported) Entered as Reported by: AIXA TAYLOR on 12/06/22 133 Last Action: Held Ibuprofen (Advil) 200 Mg Capsule, 400 MG PO Q8H PRN for PAIN-MILD (1-4), (Reported) Entered as Reported by: AVA BELTRÁN on 01/25/22 1015 Last Action: Held Lorazepam (Ativan) 0.5 Mg Tablet, 0.5 MG PO BID PRN for ANXIETY, (Reported) Entered as Reported by: AVA BELTRÁN on 09/09/20 1526 Last Action: Held Magnesium Oxide (Magnesium Oxide) 400 Mg Tablet, 400 MG PO DAILY, (Reported) Entered as Reported by: AVA BELTRÁN on 01/25/22 1015 Last Action: Continued Multivitamin (Multi-Vitamin Daily) 1 Each Tablet, 1 EACH PO DAILY, (Reported) Entered as Reported by: AIXA TAYLOR on 12/06/22 1338 Last Action: Held Pantoprazole Sodium (Pantoprazole Sodium) 40 Mg Tablet.dr, 40 MG PO DAILY, (Reported) Entered as Reported by: AIXA TAYLOR on 12/06/22 1334 Last Action: Continued Potassium Chloride (Klor-Con 10) 10 Meq Tablet.er, 10 MEQ PO DAILY, (Reported) Entered as Reported by: AVA BELTRÁN on 01/25/22 1016 Last Action: Continued Past Yuvgybm-Rwlcrq-Qbsbql Hx Patient Social History Marrital Status: Employed/Student: unemployed Smoking Status: Former Smoker Past Medical History High Cholesterol, Hypertension Stroke Bladder Infection Family Medical History FH: neuropathy 19 MOTHER Mitral valve prolapse 19 MOTHER Review of Systems Constitutional: see HPI Physical Exam General Appearance: WD/WN, Anxious, Chronically ill, Mild Distress Respiratory: No Accessory Muscle Use, No Respiratory Distress, Decreased Breath Sounds, Rales Cardiovascular: Regular Rate, Rhythm Assessment/Plan Assessment and Plan Assessment: Pneumonia failed 4 outpatient treatments from Urgent Care in past 6 weeks Elevated lactic acidosis not due to sepsis but due to alcoholic liver disease Remote hx of left-sided rib fractures and splenic laceration Prior CVA with left-sided weakness Multiple falls at home chronic Alcoholism Anxiety Tachycardia Gout COPD Former smoker Edema positional type Poor protein status causing third-spacing Pain: Broad spectrum abx Home meds Gentle IVF Stop LA since alcoholic liver disease is the cause Problems: (1) Left lower lobe pneumonia Status: Acute Qualifiers: Qualified Codes: J18.9 - Pneumonia, unspecified organism (2) Debility Status: Acute (3) Sacral decubitus ulcer Status: Acute Qualifiers: Qualified Codes: L89.159 - Pressure ulcer of sacral region, unspecified stage (4) Peripheral edema Status: Acute Admission Diagnosis Admission Status: Inpatient Order (span 2 midnights) Reason for Inpatient Admission: recurrent pna Supervisory-Addendum Brief Verification & Attestation Participated in pt care: history, MDM, physical Personally performed: exam, history, MDM, supervision of care Care discussed with: Medical Student Procedures: n/a Results interpretation: Verified all documentation Verification and Attestation of Medical Student E/M Service A medical student performed and documented this service in my presence. I reviewed and verified all information documented by the medical student and made modifications to such information, when appropriate. I personally performed the physical exam and medical decision making. Romana Campbell, Dec 07, 2022,05:24 BRIA PLEITEZ Dec 06, 2022 13:24 ROMANA CAMPBELL DO Dec 07, 2022 05:24
--- NOTE | 2022-12-06 13:29 | Diagnostic Imaging Report ---
PROCEDURE: CT chest with contrast only. TECHNIQUE: Multiple contiguous axial images were obtained through the chest after administration of intravenous contrast. Auto Exposure Controls were utilized during the CT exam to meet ALARA standards for radiation dose reduction. INDICATION: Lower respiratory infection, shortness of breath. FINDINGS: There is atelectasis at the left lung base with an effusion present that layers out to a depth of 2 cm. There are no endobronchial lesions seen. The right lung is clear. There are no pathologically enlarged hilar or mediastinal lymph nodes. IMPRESSION: Left basilar atelectasis with a left pleural effusion. The consolidation includes a small part of the left upper lobe and left lower lobe. Dictated by: Dictated on workstation # [id number]
[2022-12-06] MEDS ORDERED: PANT40TA52 PO (13:34)
[2022-12-06] MEDS ORDERED: RT-ALBUINH PO (13:35)
[2022-12-06] MEDS ORDERED: ALBU2.5V4 PO (13:36)
[2022-12-06] MEDS ORDERED: FURO40TA4 PO (13:36)
[2022-12-06] MEDS ORDERED: FOLI1TAB33 PO (13:37)
[2022-12-06] MEDS ORDERED: MULT-974 PO (13:38)
[2022-12-06] MEDS ORDERED: MEROPENEM 500 MG in NS (IVPB) 100 ML IV SCH (14:00)
[2022-12-06] MEDS ORDERED: VANCOMYCIN 2000 MG/NS 500 ML IVPB IV ONE ×2 (14:00)
[2022-12-06 14:08] VITALS: BP 120/58
[2022-12-06 14:35] VITALS: BP 120/58
--- NOTE | 2022-12-06 14:50 | Wound Care Assessment ---
Wound Care Assessment Date Seen by Provider: Dec 06, 2022 Time Seen by Provider: 14:44 Chief Complaint Stage 1 pressure injury sacrum HPI This pleasant 62 year old gentleman is well known to my outpatient practice for chronic lymphedema related ulcers of LE. He has no such wound today but was recently diagnosed with pneumonia. Since that time he has had increased immobility and is with pressure injury to sacrum. He has been using barrier ointment with improvement. He is morbidly obese and also with left sided hemiplegia from past CVA. This limits his mobility. He does also have a h/o ETOH abuse. Plan for today is continued use of barrier ointment and addition of bordered foam dressings. Past Medical History: Admits Heart Disease Smoking Status: Former Smoker Recreational Drug Use: No Alcohol Use: Regular Use (4-5 rum and pepsi daily) Review of Systems General: Fatigue, Other (Obesity) Pulmonary: Dyspnea, Cough Cardiovascular: Edema Neurological: Weakness, Numbness Exam Vital Signs Date Time Temp Pulse Resp B/P (MAP) Pulse Ox O2 Delivery O2 Flow Rate FiO2 12/06/22 14:35 36.7 93 94 21 12/06/22 14:08 18 120/58 (78) Room Air Capillary Refill : General Appearance: no apparent distress, obese HEENT: other (adequate hearing) Neck: full range of motion Cardiovascular: other (2+ edema b/l LE) Respiratory: no respiratory distress Extremities: normal range of motion, pedal edema Neurologic/Psychiatric: alert, normal mood/affect, oriented x 3 Skin Problem Location: other (sacrum) Wound assessment: Hyperpigmentation of skin with crusting to buttock. No open areas noted on exam today and no weeping. Non-blanching erythema. Results Laboratory Tests 12/06/22 09:38: White Blood Count 12.9H, Red Blood Count 3.41L, Hemoglobin 12.1L, Hematocrit 35L , Mean Corpuscular Volume 102H, Mean Corpuscular Hemoglobin 36H, Mean Corpuscular Hemoglobin Concent 35, Red Cell Distribution Width 13.2, Platelet Count 153, Mean Platelet Volume 9.7, Immature Granulocyte % (Auto) 1, Neutrophils (%) (Auto) 82H, Lymphocytes (%) (Auto) 10L, Monocytes (%) (Auto) 6, Eosinophils (%) (Auto) 1, Basophils (%) (Auto) 0, Neutrophils # (Auto) 10.6H, Lymphocytes # (Auto) 1.3, Monocytes # (Auto) 0.8, Eosinophils # (Auto) 0.1, Basophils # (Auto) 0.1, Immature Granulocyte # (Auto) 0.1, Prothrombin Time 13.2, INR Comment 1.0, Sodium Level 135, Potassium Level 4.2, Chloride Level 97L , Carbon Dioxide Level 22, Anion Gap 16H, Blood Urea Nitrogen 10, Creatinine 0 .71, Estimat Glomerular Filtration Rate 105, BUN/Creatinine Ratio 14, Glucose Level 118H, Calcium Level 8.7, Corrected Calcium 9.3, Magnesium Level 1.5L, Total Bilirubin 1.8H, Aspartate Amino Transf (AST/SGOT) 40H, Alanine Aminotransferase (ALT/SGPT) 22, Alkaline Phosphatase 150H, C-Reactive Protein High Sensitivity 5.28H, B-Type Natriuretic Peptide 98.3, Total Protein 6.3L, Albumin 3.2, Serum Alcohol < 10 12/06/22 12:00: Urine Color YELLOW, Urine Clarity CLEAR, Urine pH 6.0, Urine Specific Desmet 1.010L, Urine Protein NEGATIVE, Urine Glucose (UA) NEGATIVE, Urine Ketones NEGATIVE, Urine Nitrite NEGATIVE, Urine Bilirubin NEGATIVE, Urine Urobilinogen 0.2, Urine Leukocyte Esterase NEGATIVE, Urine RBC (Auto) NEGATIVE, Urine RBC NONE, Urine WBC RARE, Urine Squamous Epithelial Cells RARE, Urine Crystals NONE, Urine Bacteria NEGATIVE, Urine Casts NONE, Urine Mucus NEGATIVE, Urine Culture Indicated CULTURE PENDING, Lactic Acid Level 4.63*H Assessment/Plan/Dx Assessment: 1. Stage 1 pressure injury sacrum 2. L. hemiplegia with resulting immobility 3. Generalized weakness from pneumonia 4. Morbid obesity 5. ETOH use Plan: 1. Cleanse daily. Apply thick layer of barrier ointment 2. Allveyn bordered foam dressing to be changed qd and prn 3. Frequent positional changes recommended TONG THOMAS MD Dec 06, 2022 14:50
[2022-12-06] MEDS ORDERED: RT-ALBUTEROL SULF 2.5 MG/3 ML PRE-MIX VIAL ONE (15:29)
[2022-12-06] MEDS ORDERED: RT-IPRATROPIUM (ATROVENT) 0.5MG/2.5ML AMP IH ONE (15:29)
[2022-12-06 15:30] VITALS: BP 120/59
[2022-12-06 16:00] VITALS: BP 120/58
[2022-12-06] MEDS: NS IV 1000 ML 1,000 ML IV SCH (16:36)
[2022-12-06] MEDS: MEROPENEM 500 MG in NS (IVPB) 100 ML IV SCH ×2 (18:08→23:08)
[2022-12-06 19:00] VITALS: BP 113/57
[2022-12-06] MEDS: RT-ALBUTEROL SULF 2.5 MG/3 ML PRE-MIX VIAL INH SCH ×2 (19:12→22:37)
[2022-12-06] MEDS: RT-IPRATROPIUM (ATROVENT) 0.5MG/2.5ML AMP IH SCH ×2 (19:12→22:37)
[2022-12-06] MEDS: SENNOSIDES 8.6 MG (SENOKOT) TAB PO SCH (19:44)
[2022-12-06] MEDS: DOCUSATE SODIUM 100 MG (COLACE) CAP PO SCH (19:44)
[2022-12-06] MEDS: MAGNESIUM OXIDE (MAG-OX)400 MG TAB PO SCH (19:45)
[2022-12-06] MEDS: LORazepam 1 MG (ATIVAN) TAB PO PRN ×2 (21:13→23:33)
[2022-12-06 23:25] VITALS: BP 106/64
[2022-12-07] VITALS (8 sets, daily range): BP systolic 107–145; BP diastolic 60–87
[2022-12-07] MEDS ORDERED: VANCOMYCIN 1500 MG/NS 500 ML IVPB IV SCH ×2 (02:00)
[2022-12-07] MEDS: RT-IPRATROPIUM (ATROVENT) 0.5MG/2.5ML AMP IH SCH ×4 (02:43→22:07)
[2022-12-07] MEDS: RT-ALBUTEROL SULF 2.5 MG/3 ML PRE-MIX VIAL INH SCH ×4 (02:43→22:07)
[2022-12-07] MEDS: MULTIVIT W/MINERALS TAB (THERAGRAN M) PO SCH (05:13)
[2022-12-07] MEDS: THIAMINE 100 MG (VITAMIN B-1) TAB PO SCH (05:13)
[2022-12-07] MEDS: PANTOPRAZOLE 40 MG (PROTONIX) TAB PO SCH (05:13)
[2022-12-07 05:25] LABS: HEMOGLOBIN 10.2 g/dL (13.3-17.7)
[2022-12-07 05:26] LABS: MEAN PLATELET VOLUME 9.7 fL (9.0-12.2); WHITE BLOOD COUNT 11.4 10^3/uL (4.3-11.0)
[2022-12-07 05:46] LABS: ALBUMIN 2.6 GM/DL (3.2-4.5); BILIRUBIN,TOTAL 1.3 MG/DL (0.1-1.0); CREATININE SERUM 0.68 MG/DL (0.60-1.30); POTASSIUM 3.8 MMOL/L (3.6-5.0); TOTAL PROTEIN 5.1 GM/DL (6.4-8.2)
[2022-12-07] MEDS ORDERED: FOLIC ACID 1 MG TAB PO SCH (09:00)
[2022-12-07] MEDS: ATENOLOL 25 MG (TENORMIN) TAB PO SCH (09:23)
[2022-12-07] MEDS: MAGNESIUM OXIDE (MAG-OX)400 MG TAB PO SCH ×3 (09:23→20:37)
[2022-12-07] MEDS: KCL 10 MEQ TAB (MICRO K) PO SCH (09:23)
[2022-12-07] MEDS: SENNOSIDES 8.6 MG (SENOKOT) TAB PO SCH ×3 (09:23→19:50)
[2022-12-07] MEDS: DOCUSATE SODIUM 100 MG (COLACE) CAP PO SCH ×3 (09:23→19:50)
[2022-12-07] MEDS: FOLIC ACID 1 MG TAB PO SCH (09:24)
[2022-12-07] MEDS: NS IV 1000 ML 1,000 ML IV SCH ×2 (09:26→16:29)
--- NOTE | 2022-12-07 11:15 | Physical Therapy Evaluation ---
PT Evaluation-General Medical Diagnosis Admission Date Dec 06, 2022 at 11:47 Medical Diagnosis: LLL pneumonia Onset Date: Dec 06, 2022 Therapy Diagnosis Therapy Diagnosis: generalized weakness/debility Height/Weight Height (Feet): 6 Height (Inches): 2.00 Weight (Pounds): 220 Weight (Ounces): 8.8 Precautions Precautions/Isolations: Fall Prevention, Standard Precautions Referral Physician: Mauricio Reason for Referral: Evaluation/Treatment Medical History Pertinent Medical History: Alcoholism, COPD, CVA, HTN, Neuropathy, PVD, Renal Insufficiency Current History EMS from home due to progressive weakness Reviewed History: Yes Social History Home: Single Level Current Living Status: Spouse Prior Prior Level of Function SCALE: Activities may be completed with or without assistive devices. 7-Svotaeysll-cptfsoy completes the activity by him/herself with no assistance from a helper. 5-Set-up or Clean-up Assistance-helper sets up or cleans up; patient completes activity. [place] assists only prior to or following the activity. 4-Supervision or Touching Assistance-helper provides verbal cues and/or touching/steadying and/or contact guard assistance as patient completes activity. Assistance may be provided throughout the activity or intermittently. 3-Partial/Moderate Assistance-helper does LESS THAN HALF the effort. [place] lifts, holds or supports trunk or limbs, but provides less than half the effort. 2-Substantial/Maximal Assistance-helper does MORE THAN HALF the effort. [place] lifts or holds trunk or limbs and provides more than half the effort. 2-Agvqzxlnz-ynczqz does ALL the effort. Patient does none of the effort to complete the activity. Or, the assistance of 2 or more helpers is required for the patient to complete the activity. If activity was not attempted, code reason: 7-Patient Refused. 9-Not Applicable-not attempted and the patient did not perform the activity before the current illness, exacerbation or injury. 10-Not Attempted due to Environmental Limitations-(lack of equipment, weather restraints, etc.). 88-Not Attempted due to Medical Conditions or Safety Concerns. Bed Mobility: 6 Transfers (B,C,W/C): 6 Gait: 6 Indoor Mobility (Ambulation): Independent Prior Devices Use: Walker PT Evaluation-Current Subjective Patient reports bowel and urine incontinence. Agrees to PT and up to commode. Objective Patient Orientation: Person, Time, Situation ROM/Strength ROM Lower Extremities bilateral LE WFL Strength Lower Extremities right LE 3/5 grossly all planes/left LE 3-/5 grossly all planes with noted tone Integumentary/Posture Integumentary refer to nursing notes Bowel Incontinence: Yes Bladder Incontinence: Yes Posture slightly kyphotic Neuromuscular (Tone, Coordination, Reflexes) severely diminished coordination due to old CVA and weakness Sensory Vision: Functional Hearing: Functional Sensation Right Lower Extremit: Impaired Sensation Left Lower Extremity: Impaired Transfers Lying to Sitting/Side of Bed(Q: 2 Sit to Stand (QC): 2 Chair/Jdg-va-Tdpjz Xfer(QC): 2 Toilet Transfer (QC): 2 Gait Mode of Locomotion: Walk Anticipated Mode of Locomotion: Walk Walk 10 feet (QC): 88 Walk 50 ft with 2 Turns(QC): 88 Walk 150 ft (QC): 88 Distance: 3 steps to turn Gait Assistive Device: FWW Comments/Gait Description difficulty with left LE movement due to weakness Balance Sitting Static: Fair Sitting Dynamic: Fair Standing Static: Poor Standing Dynamic: Poor Assessment/Needs Patient will benefit from skilled PT to address functional strength and mobility to improve current LOF to safely return to home at maximum LOF. Rehab Potential: Fair PT Chlorobutadiene Scrubber Operator Goals Intermediate Goals PT Intermediate Goals Time Frame: Dec 25, 2022 Roll Left & Right (QC): 4 Sit to Lying (QC): 4 Lying-Sitting on Side/Bed(QC): 4 Sit to Stand (QC): 4 Chair/Mbw-nf-Oxfco Xfer(QC): 4 Toilet Transfer (QC): 4 Walk 10 feet (QC): 4 Walk 50ft with 2 Turns (QC): 4 PT Plan Problem List Problem List: Activity Tolerance, Functional Strength, Safety, Balance, Gait, Transfer, Bed Mobility Treatment/Plan Treatment Plan: Continue Plan of Care Treatment Plan: Bed Mobility, Education, Functional Activity Francesca, Functional Strength, Gait, Safety, Therapeutic Exercise, Transfers Treatment Duration: Dec 25, 2022 Frequency: 6 times per week Estimated Hrs Per Day: .25 hour per day Patient and/or Family Agrees t: Yes Time Time In: 1050 Time Out: 1104 DATE: Dec 07, 2022 Total Billed Treatment Time: 14 Total Billed Treatment 1 visit [facility] 14 min JENNA OWUSU PT Dec 07, 2022 11:15
[2022-12-07] MEDS ORDERED: LIDOCAINE/EPI 1%-1:100,000 (XYLOCAINE) 30ML ONE (11:47)
[2022-12-07] MEDS ORDERED: HEParin (CENTRAL IV FLUSH) 500 UNIT/5 ML SYR ONE (11:47)
[2022-12-07] MEDS ORDERED: 0.9% SODIUM CHLORIDE PF INJ 20 ML VIAL ONE (11:47)
--- NOTE | 2022-12-07 11:58 | Progress Note ---
BRIA PLEITEZ Maddie 12/07/22 1158: Subjective Date Seen by a Provider: Dec 07, 2022 Time Seen by a Provider: 08:52 Subjective/Events-last exam Patient is a 62 yo M admitted for lower lobe pneumonia. This morning he is alert, oriented and eating breakfast in bed. His chief complaint today is frus tration with multiple attempts at blood draws and IV access. Prior to interview, an attempt at placing a PICC line failed. Reports he now has pain in his arms and is concerned that his right arm, which is his good arm, might get injured. He is agreeable to port placement. He has pain and swelling in his legs which is chronic. He is being seen by wound care to manage his sacral pressure injury. States that he is breathing okay. He has been having bowel movements every day, however his most recent was diarrhea which is new from yesterday. He has asked to consult with Dr. Ortiz for knee. Review of Systems General: No Chills; Fatigue HEENT: No Dysphasia, No Sore Throat Pulmonary: No Dyspnea, No Cough Cardiovascular: No: Chest Pain, Palpitations Gastrointestinal: Diarrhea; No: Nausea, Vomiting, Abdominal Pain Genitourinary: No Dysuria Musculoskeletal: arm pain (recently stick for PICC line), leg pain (chronic swelling) Neurological: Weakness; No: Confusion Focused Exam Lactate Level 12/06/22 12:00: Lactic Acid Level 4.63*H 12/06/22 15:05: Lactic Acid Level 4.26*H 12/06/22 17:15: Lactic Acid Level 5.10*H Objective Exam Last Set of Vital Signs Vital Signs Date Time Temp Pulse Resp B/P (MAP) Pulse Ox O2 Delivery O2 Flow Rate FiO2 12/07/22 07:42 36.9 117 18 137/64 (88) 95 Room Air 12/07/22 02:43 0.00 12/06/22 14:35 21 Capillary Refill : I&O Intake and Output 12/07/22 00:00 Intake Total 600 ml Output Total 450 ml Balance 150 ml Intake Oral 500 ml IV Total 100 ml Output Urine Total 450 ml # Voids 2 # Bowel Movements 1 Daily Weight Change No General: Alert, Oriented X3 HEENT: PERRLA, EOMI Neck: Supple, No Thyromegaly Lungs: Clear to Auscultation, Normal Air Movement Heart: Regular Rate, Normal S1, Normal S2 Abdomen: Normal Bowel Sounds, No Tenderness, Other (Distended) Extremities: Normal Pulses, No Tenderness/Swelling Neuro: Normal Speech Other physical findings Sacral pressure injury Results Lab Laboratory Tests 12/06/22 12:00: Urine Color YELLOW, Urine Clarity CLEAR, Urine pH 6.0, Urine Specific [place] 1.010L, Urine Protein NEGATIVE, Urine Glucose (UA) NEGATIVE, Urine Ketones NEGATIVE, Urine Nitrite NEGATIVE, Urine Bilirubin NEGATIVE, Urine Urobilinogen 0.2, Urine Leukocyte Esterase NEGATIVE, Urine RBC (Auto) NEGATIVE, Urine RBC NONE, Urine WBC RARE, Urine Squamous Epithelial Cells RARE, Urine Crystals NONE, Urine Bacteria NEGATIVE, Urine Casts NONE, Urine Mucus NEGATIVE, Urine Culture Indicated CULTURE PENDING, Lactic Acid Level 4.63*H 12/06/22 15:05: Lactic Acid Level 4.26*H 12/06/22 17:15: Lactic Acid Level 5.10*H 12/06/22 17:16: Glucometer 134H 12/06/22 23:29: Glucometer 132H 12/07/22 05:16: White Blood Count 11.4H, Red Blood Count 2.90L, Hemoglobin 10.2L, Hematocrit 31L , Mean Corpuscular Volume 105H, Mean Corpuscular Hemoglobin 35H, Mean Corpuscular Hemoglobin Concent 33, Red Cell Distribution Width 13.3, Platelet Count 135, Mean Platelet Volume 9.7, Percent Immature Platelet Fraction 1.8, Sodium Level 137, Potassium Level 3.8, Chloride Level 102, Carbon Dioxide Level 21, Anion Gap 14, Blood Urea Nitrogen 11, Creatinine 0.68, Estimat Glomerular Filtration Rate 106, BUN/Creatinine Ratio 16, Glucose Level 115H, Calcium Level 8.0L, Corrected Calcium 9.1, Total Bilirubin 1.3H, Aspartate Amino Transf (AST/SGOT) 30, Alanine Aminotransferase (ALT/SGPT) 18, Alkaline Phosphatase 126, Total Protein 5.1L, Albumin 2.6L 12/07/22 05:40: Glucometer 107 Microbiology 12/06/22 MRSA Screen - Final, Complete MRSA not isolated 12/06/22 Urine Culture - Preliminary, Resulted Staph, Coag Neg ([employer]) Meds Patient is on meropenum and vancomycin Radiology NAME: KENJI CRAIG [facility] REC#: [id number] PT STATUS: REG ER : 1960 PHYSICIAN: EVANGELISTA CUADRA MD ADMIT DATE: 12/06/22/ER Signed Date of Exam:12/06/22 CHEST 1 VIEW, AP/PA ONLY INDICATION: Chest discomfort. AP view of chest obtained with comparison made study of 11/20/2022 There is continued left basilar atelectasis and/or pneumonitis blunting left costophrenic sulcus. Left anterior chest wall loop recorder is again noted. Right lung is clear and well expanded. IMPRESSION: Continued left basilar atelectasis and/or pneumonitis with associated left pleural fluid and/or thickening. Dictated by: Dictated on workstation # [id number] Dict: 12/06/22 1026 Trans: 12/06/22 1052 [id number] Interpreted by: AGUSTIN NEWBERRY MD Electronically signed by: AGUSTIN NEWBERRY MD 12/06/22 1052 NAME: KENJI CRAIG Mike [facility] REC#: [id number] PT STATUS: ADM IN : 1960 PHYSICIAN: EVANGELISTA CUADRA MD ADMIT DATE: 12/06/22/4TH Signed Date of Exam:12/06/22 CT CHEST W PROCEDURE: CT chest with contrast only. TECHNIQUE: Multiple contiguous axial images were obtained through the chest after administration of intravenous contrast. Auto Exposure Controls were utilized during the CT exam to meet ALARA standards for radiation dose reduction. INDICATION: Lower respiratory infection, shortness of breath. FINDINGS: There is atelectasis at the left lung base with an effusion present that layers out to a depth of 2 cm. There are no endobronchial lesions seen. The right lung is clear. There are no pathologically enlarged hilar or mediastinal lymph nodes. IMPRESSION: Left basilar atelectasis with a left pleural effusion. The consolidation includes a small part of the left upper lobe and left lower lobe. Dictated by: Dictated on workstation # [id number] Dict: 12/06/22 1325 Trans: 12/06/22 1451 [id number] Interpreted by: DIDIER QUINTERO MD Electronically signed by: DIDIER QUINTERO MD 12/06/22 1451 Assessment/Plan Assessment/Plan Assess & Plan/Chief Complaint Assessment: Pneumonia failed 4 outpatient treatments from Urgent Care in past 6 weeks Elevated lactic acidosis not due to sepsis but due to alcoholic liver disease Remote hx of left-sided rib fractures and splenic laceration Prior CVA with left-sided weakness Multiple falls at home chronic Alcoholism Anxiety Tachycardia Gout COPD Former smoker Edema positional type Poor protein status causing third-spacing Plan: Continue broad spectrum abx Home meds Obtain vascular access with port placement, consult Dr. Solis Stool sample testing for C. diff, r/o due to patient's diarrhea and long-term use of abx Start PT/OT to improve mobility and weakness Gentle IVF Stop LA since alcoholic liver disease is the cause ROMANA CAMPBELL DO 12/07/221942: Subjective Subjective/Events-last exam Port will be placed due to roasterman issue with IV placement Review of Systems General: Fatigue, Malaise Objective Exam General: Alert, Oriented X3, Cooperative, No Acute Distress Lungs: Clear to Auscultation Heart: Regular Rate Psych/Mental Status: Mental Status NL, Mood NL Assessment/Plan Assessment/Plan Assess & Plan/Chief Complaint Port placement IV abx Monitor closely Supervisory-Addendum Brief Verification & Attestation Participated in pt care: history, MDM, physical Personally performed: exam, history, MDM, supervision of care Care discussed with: Medical Student Procedures: n/a Results interpretation: Verified all documentation Verification and Attestation of Medical Student E/M Service A medical student performed and documented this service in my presence. I reviewed and verified all information documented by the medical student and made modifications to such information, when appropriate. I personally performed the physical exam and medical decision making. Romana Campbell, Dec 07, 2022,19:42 BRIA PLEITEZ Dec 07, 2022 11:58 ROMANA CAMPBELL DO Dec 07, 2022 19:43
--- NOTE | 2022-12-07 13:04 | Consultation - Ortho ---
Consult - Ortho Subjective Date of Exam 12/07/22 Chief Complaint left knee pain HPI/Events since last exam known to me from clinic, requesting left knee injection Medical, Surgical History - Social History - Family History - Review of Systems - Allergies: Coded Allergies: Sulfa (Sulfonamide Antibiotics) (Verified Allergy, Unknown, 09/11/22) Uncoded Allergies: SULFA (Allergy, Unknown, 01/24/22) Home Meds Reported Medications Multivitamin (Multi-Vitamin Daily) 1 Each Tablet, 1 EACH PO DAILY, TAB 12/06/22 Folic Acid (Folic Acid) 1 Mg Tablet, 1 MG PO DAILY 12/06/22 Furosemide (Furosemide) 40 Mg Tablet, 40 MG PO DAILY PRN for FLUID RETENTION 12/06/22 Albuterol Sulfate (Albuterol Sulfate) 2.5 Mg/3 Ml (0.083 %) Vial.neb, 1 VIAL PO BID PRN for SHORTNESS OF BREATH 12/06/22 Albuterol Sulfate (Proventil Hfa) 6.7 Gm Hfa.aer.ad, 1 PUFF PO Q6H PRN for SHORTNESS OF BREATH 12/06/22 Pantoprazole Sodium (Pantoprazole Sodium) 40 Mg Tablet.dr, 40 MG PO DAILY 12/06/22 Potassium Chloride (Klor-Con 10) 10 Meq Tablet.er, 10 MEQ PO DAILY, TAB 01/25/22 Ibuprofen (Advil) 200 Mg Capsule, 400 MG PO Q8H PRN for PAIN-MILD (1-4), CAP 01/25/22 Magnesium Oxide (Magnesium Oxide) 400 Mg Tablet, 400 MG PO DAILY, TAB 01/25/22 Atenolol (Atenolol) 25 Mg Tablet, 25 MG PO DAILY, TAB 09/09/20 Lorazepam (Ativan) 0.5 Mg Tablet, 0.5 MG PO BID PRN for ANXIETY, TAB 09/09/20 Objective Exam Left Knee, prepped with alcohol, 80 mg of kenalog delivered intra-articularly, site dressed with bandaid Vital Signs Vital Signs Date Time Temp Pulse Resp B/P (MAP) Pulse Ox O2 Delivery O2 Flow Rate FiO2 12/07/22 11:33 37.0 112 18 135/66 (89) 93 Room Air 12/07/22 10:32 37.0 115 18 135/60 (85) 95 Room Air 12/07/22 07:42 36.9 117 18 137/64 (88) 95 Room Air 12/07/22 07:01 106 12/07/22 07:00 95 Room Air 12/07/22 03:35 37.1 115 18 145/75 (98) 94 Room Air 12/07/22 02:43 97 Room Air 0.00 12/07/22 01:00 114 12/06/22 23:25 37.4 120 18 106/64 (78) 92 Room Air 12/06/22 22:37 94 Room Air 0.00 12/06/22 20:00 Room Air 12/06/22 19:12 97 Room Air 0.00 12/06/22 19:00 37.0 107 18 113/57 (75) 95 Room Air 12/06/22 19:00 107 12/06/22 17:51 104 12/06/22 16:00 36.7 93 18 120/58 (78) 99 Room Air 0.00 12/06/22 16:00 36.7 93 18 120/58 99 Room Air 0.00 12/06/22 15:52 99 Room Air 12/06/22 15:30 37.2 100 18 120/59 (79) 98 Room Air 12/06/22 14:35 36.7 93 94 21 12/06/22 14:08 36.7 93 18 120/58 (78) 97 Room Air 12/06/22 14:00 Room Air 0.00 I & O 12/07/22 07:00 Intake Total 800 ml Output Total 450 ml Balance 350 ml Lab Results Laboratory Tests 12/06/22 15:05: Lactic Acid Level 4.26*H 12/06/22 17:15: Lactic Acid Level 5.10*H 12/06/22 17:16: Glucometer 134H 12/06/22 23:29: Glucometer 132H 12/07/22 05:16: White Blood Count 11.4H, Red Blood Count 2.90L, Hemoglobin 10.2L, Hematocrit 31L , Mean Corpuscular Volume 105H, Mean Corpuscular Hemoglobin 35H, Mean Corpuscular Hemoglobin Concent 33, Red Cell Distribution Width 13.3, Platelet Count 135, Mean Platelet Volume 9.7, Percent Immature Platelet Fraction 1.8, Sodium Level 137, Potassium Level 3.8, Chloride Level 102, Carbon Dioxide Level 21, Anion Gap 14, Blood Urea Nitrogen 11, Creatinine 0.68, Estimat Glomerular Filtration Rate 106, BUN/Creatinine Ratio 16, Glucose Level 115H, Calcium Level 8.0L, Corrected Calcium 9.1, Total Bilirubin 1.3H, Aspartate Amino Transf (AST/SGOT) 30, Alanine Aminotransferase (ALT/SGPT) 18, Alkaline Phosphatase 126, Total Protein 5.1L, Albumin 2.6L 12/07/22 05:40: Glucometer 107 12/07/22 12:40: Glucometer 146H Microbiology 12/07/22 C. difficile GDH Antigen & Toxins - Final, Complete 12/06/22 MRSA Screen - Final, Complete MRSA not isolated 12/06/22 Urine Culture - Preliminary, Resulted Staph, Coag Neg (CHECKER DU[employer] GROUNDS) Assessment and Plan Assessment Left Knee Primary Osteoarthritis Problem List Left Knee Primary Osteoarthritis Plan Injected Final Diagonsis Left Knee Primary Osteoarthritis Level of the visit: Level 3 (injection only) INES WILBURN MD Dec 07, 2022 13:04
--- NOTE | 2022-12-07 13:36 | Occupational Therapy Eval ---
OT Evaluation-General/PLF Medical Diagnosis Admission Date Dec 06, 2022 at 11:47 Medical Diagnosis: LLL pneumonia Onset Date: Dec 06, 2022 Therapy Diagnosis Therapy Diagnosis: debility/ weakness, need for assistance w/ personal care Height/Weight Height (Feet): 6 Height (Inches): 2.00 Weight (Pounds): 220 Weight (Ounces): 8.8 Precautions Precautions/Isolations: Fall Prevention, Standard Precautions Comments video monitor Weight Bear Status Weight Bearing Restriction: Weight Bearing/Tolerated Referral Physician: Mauricio Referral Reason: Activity Tolerance, Self Care, Evaluation/Treatment, Strengthening/ROM Medical History Pertinent Medical History: Alcoholism, COPD, CVA, HTN, Neuropathy, PVD, Renal Insufficiency Additional Medical History LUE weakness and atrophy post history of CVA, low back pain, edema, IBS Current History EMS from home due to progressive weakness, inability to ambulate, manage stairs into home and transfer in/out of lift recliner Reviewed History: Yes Social History Home: Single Level Current Living Status: Spouse Steps Into Home: 2 ADL-Prior Level of Function SCALE: Activities may be completed with or without assistive devices. 1-[id number]-[id number] completes the activity by him/herself with no assistance from a helper. 5-Set-up or Clean-up Assistance-helper sets up or cleans up; patient completes activity. [place] assists only prior to or following the activity. 4-Supervision or Touching Assistance-helper provides verbal cues and/or touching/steadying and/or contact guard assistance as patient completes activity. Assistance may be provided throughout the activity or intermittently. 3-Partial/Moderate Assistance-helper does LESS THAN HALF the effort. [place] lifts, holds or supports trunk or limbs, but provides less than half the effort. 2-Substantial/Maximal Assistance-helper does MORE THAN HALF the effort. [place] lifts or holds trunk or limbs and provides more than half the effort. 8-Xlrwikqgx-yscpkc does ALL the effort. Patient does none of the effort to complete the activity. Or, the assistance of 2 or more helpers is required for the patient to complete the activity. If activity was not attempted, code reason: 7-Patient Refused. 9-Not Applicable-not attempted and the patient did not perform the activity before the current illness, exacerbation or injury. 10-Not Attempted due to Environmental Limitations-(lack of equipment, weather restraints, etc.). 88-Not Attempted due to Medical Conditions or Safety Concerns. ADL PLOF Comments per patient report is able to perform ADLs normally independently, however cycles with needs for assistance Self Care: Independent Functional Cognition: Independent DME/Equipment Comments Per patient report, has lift recliner chair, walker, WC, GBs and a shower seat Drive Self: No OT Current Status Subjective Laying supine in bed w/ BLEs elevated w/ bolster, SCDs off and at FOB. Pt reports "I can't move and I need to pee" Pain Numeric Pain Scale: 0-No Pain Mental Status/Objective Patient Orientation: Person, Place, Time, Situation Patient reports he cannot move and needs to urinate, however PT evaluation completed just prior to OT arrival and Pt transferred w/ PT Max assist for transfers from bed to [facility], Asked patient to explain can not move as disability or that his movements is monitored and he should not get out of bed alone. He reports he cannot move Current Glasses/Contacts: Yes Upper Extremity ROM RUE WFLS, LUE chronic impaired d/t old CVA, PROM / AAROM elbow , shoulder and wrist completed w/ OT w/o pain Upper Extremity Coordination RUE WFLS, LUE FMC/GMC impaired Upper Extremity Strength RUE +3/5, LUE +2/5 grossly Edema: edema throughout, abdomen distended ADL-Treatment ADL-Current Patient reports he has performed ADLs independently at home. Today patient has transferred to [facility] w/ therapy and currently patient refuses to transfer to [facility] stating he can't move. OT provided education and encouragement to participate as patient agrees to sit EOB and use urinal Eating (QC): 88 (NPO for access port surgery) Oral Hygiene (QC): 88 Shower/Bathe Self (QC): 88 Upper Body Dressing (QC): 2 Lower Body Dressing (QC): 7 (patient refuses) On/Off Footwear (QC): 7 (refuses to perform, sits EOB) Toileting Hygiene (QC): 7 (refuses) Patient performed bed mobility QR2 rolling, side lying to sit w/ bed adjusted to assist QR2 max assist to return to bed, required assist to place urinal in position, unsuccessful urination reported to nurse. Pt is NPO, OT observed full mug of water on tray table, pt reports mother was a visitor, OT clarified w/ RN NPO status as mug removed and education provided. Bed mobility performed to allow position of bolster under LES w/ B feet offloaded Other Treatments Extensive education for therapy setting and goals, education for delia light, visual monitor, ROM in bed and NPO Education OT Patient Education: Correct positioning, Disease process, Exercise program, Modified ADL techniques, Progress toward Goal/Update tx plan, Purpose of tx/functional activities, Reviewed precautions, Rehab process, Safety issues, Transfer techniques, Use of adapted equipment Teaching Recipient: Patient Teaching Methods: Demonstration, Discussion Response to Teaching: Verbalize Understanding, Reinforcement Needed OT Group Home Goals Group Home Goals Time Frame: Dec 18, 2022 Eating (QC): 6 Oral Hygiene (QC): 6 Toileting Hygiene (QC): 6 Shower/Bathe Self (QC): 5 Upper Body Dressing (QC): 6 Lower Body Dressing (QC): 6 On/Off Footwear (QC): 6 1=Demonstrate adherence to instructed precautions during ADL tasks. 2=Patient will verbalize/demonstrate understanding of assistive devices/modifications for ADL. 3=Patient will improve strength/tolerance for activity to enable patient to perform ADL's. OT Education/Plan Problem List/Assessment Assessment: Decreased Activ Tolerance, Decreased Safety Aware, Decreased UE Strength, Dependent Transfers, Edema, Impaired Bed Mobility, Impaired Cognition, Impaired Coordination, Impaired Funct Balance, Impaired Self-Care Skills, Restricted Funct UE ROM Discharge Recommendations Plan/Recommendations: Continue POC Therapy Discharge Recommendati: Post Acute OT Comment ARU, Inpatient, SNF, home w/ 24 hour care, HH and outpatient education provided as patient reports, I don't want to be here, I have tried this before it doesn't work Treatment Plan/Plan of Care Patient would benefit from OT for education, treatment and training to promote independence in ADL's, mobility, safety and/or upper extremity function for ADL's. Plan of Care: ADL Retraining, Cognitive Retraining, Functional Mobility, Group Exercise/Act as Ind, UE Funct Exercise/Act, UE Neuromus Re-Ed/Coord Treatment Duration: Dec 18, 2022 Frequency: 3 times per week (3-5 times/week) Estimated Hrs Per Day: .25 hour per day Agreement: Yes Rehab Potential: Fair Time Start Time: 13:07 Stop Time: 13:27 DATE: Dec 07, 2022 Total Time Billed (hr/min): 20 Billed Treatment Time 1 visit EVM 20 min SIMRAN ADAMS OT Dec 07, 2022 13:36
--- NOTE | 2022-12-07 16:10 | Progress Note-Pre Operative ---
Pre-Operative Progress Note Date of Available H&P: Dec 07, 2022 Date H&P Reviewed: Dec 07, 2022 Time H&P Reviewed: 16:00 History & Physical: No changes noted Pre-Operative Diagnosis: pneumonia with poor peripheral venous circulation QAMAR BALDERAS MD Dec 07, 2022 16:10
[2022-12-07] MEDS: MEROPENEM 500 MG in NS (IVPB) 100 ML IV SCH ×2 (16:28→22:32)
--- NOTE | 2022-12-07 16:30 | CONSULTATION REPORT ---
DATE OF SERVICE: 12/07/2022 ATTENDING PHYSICIAN: Dr. Martínez. HISTORY OF PRESENT ILLNESS: The patient is a 62-year-old male known to us. We have done multiple previous procedures on him in the past. He presented to the Emergency Department with bilateral lower extremity edema, weakness and generalized debility. He does have number of medical problems including neuropathy, COPD, mitral valve prolapse and chronic bilateral lower extremity edema. This patient also does have a previous history of smoking as well as currently does drink alcohol on a daily basis. The patient was found to have a left sided pneumonia and is being treated with IV antibiotics. He has very poor peripheral circulation and has been difficult to maintain any IV access. The patient will require a Groshong implantable catheter for continued IV access. However, due to his number of medical problems and continued care, he will require more long-term IV access for continued infusions of medications as well as frequent blood draws. PAST MEDICAL HISTORY: Hypertension, hypercholesterolemia, bilateral lower extremity edema, COPD, history of TIA, irritable bowel syndrome. PAST SURGICAL HISTORY: Removal of bladder tumor, which was benign. ALLERGIES: SULFA. MEDICATIONS: Albuterol inhaler 1 puff q.6 hours p.r.n., albuterol breathing treatments b.i.d. p.r.n., atenolol 25 mg daily, folic acid 1 mg daily, furosemide 40 mg daily, lorazepam 0.5 mg b.i.d. p.r.n., Protonix 40 mg daily, potassium 10 mEq daily. SOCIAL HISTORY: Previous smoked, does drink approximately 4 drinks on a daily basis. FAMILY HISTORY: Mother, diabetes, neuropathy, mitral valve prolapse. VITAL SIGNS: Temperature 37.5, blood pressure 143/87, pulse 104, respirations 20, pulse ox 92% on room air. REVIEW OF SYSTEMS: A well-nourished male, currently in no acute distress. He is not experiencing any shortness of breath or difficulty breathing. No chest pain, palpitations or diaphoresis. No nausea or vomiting, no diarrhea or constipation. He is having intermittent cough. Does not report any sputum production. No fever or chills. No recent inadvertent weight loss. All other review of systems negative. PHYSICAL EXAMINATION: CHEST: Scattered expiratory wheezes bilaterally with distant breath sounds. CARDIAC: Regular, no murmurs. EXTREMITIES: A +1/3 bilateral lower extremity edema. Negative Homans sign. HEENT: No scleral icterus. No cervical lymphadenopathy. GASTROINTESTINAL: Abdomen is soft, nontender, nondistended. SKIN: Warm and dry. LABORATORY DATA: WBC 11.4, hemoglobin 10.2, hematocrit 31, platelets 135. BUN 11, creatinine 0.68. ASSESSMENT AND PLAN: A 62-year-old male with left sided pneumonia and history of COPD as well as number of other medical problems including hypertension, hypercholesterolemia with frequent hospital admissions and poor peripheral venous circulation and will require long-term access, which would encompass a Groshong implantable catheter, which we will schedule on this admission. Job ID: [id number] DocumentID: [id number] Dictated Date: 12/07/2022 16:09:45 Calender Worker Helper Date: 12/07/2022 16:28:00 Dictated By: QAMAR BALDERAS MD
[2022-12-07] MEDS: LORazepam 1 MG (ATIVAN) TAB PO PRN (20:37)
[2022-12-08] VITALS (10 sets, daily range): BP systolic 120–153; BP diastolic 64–85
[2022-12-08] MEDS: RT-ALBUTEROL SULF 2.5 MG/3 ML PRE-MIX VIAL INH SCH ×5 (02:13→22:59)
[2022-12-08] MEDS: RT-IPRATROPIUM (ATROVENT) 0.5MG/2.5ML AMP IH SCH ×6 (02:13→22:59)
[2022-12-08] MEDS: MEROPENEM 500 MG in NS (IVPB) 100 ML IV SCH ×4 (04:42→21:11)
[2022-12-08] MEDS: THIAMINE 100 MG (VITAMIN B-1) TAB PO SCH (05:02)
[2022-12-08] MEDS: MULTIVIT W/MINERALS TAB (THERAGRAN M) PO SCH (05:02)
[2022-12-08] MEDS: PANTOPRAZOLE 40 MG (PROTONIX) TAB PO SCH (05:02)
[2022-12-08 05:48] LABS: HEMATOCRIT 32 % (40-54); HEMOGLOBIN 10.5 g/dL (13.3-17.7); MEAN CORPUSCULAR HEMOGLOBIN 35 pg (25-34); MEAN CORPUSCULAR HGB CONC 33 g/dL (32-36); MEAN CORPUSCULAR VOLUME 104 fL (80-99); MEAN PLATELET VOLUME 9.6 fL (9.0-12.2); PLATELET COUNT 142 10^3/uL (130-400); WHITE BLOOD COUNT 12.2 10^3/uL (4.3-11.0)
[2022-12-08 06:00] LABS: ALBUMIN 2.9 GM/DL (3.2-4.5); POTASSIUM 3.7 MMOL/L (3.6-5.0)
[2022-12-08 06:01] LABS: CALCIUM 8.2 MG/DL (8.5-10.1)
[2022-12-08 06:02] LABS: TOTAL PROTEIN 5.6 GM/DL (6.4-8.2)
[2022-12-08 06:04] LABS: BILIRUBIN,TOTAL 0.8 MG/DL (0.1-1.0)
[2022-12-08 06:06] LABS: CREATININE SERUM 0.61 MG/DL (0.60-1.30)
[2022-12-08] MEDS: DOCUSATE SODIUM 100 MG (COLACE) CAP PO SCH ×2 (09:20→19:09)
[2022-12-08] MEDS: FOLIC ACID 1 MG TAB PO SCH (09:22)
[2022-12-08] MEDS: KCL 10 MEQ TAB (MICRO K) PO SCH (09:23)
[2022-12-08] MEDS: MAGNESIUM OXIDE (MAG-OX)400 MG TAB PO SCH ×3 (09:23→19:33)
[2022-12-08] MEDS: SENNOSIDES 8.6 MG (SENOKOT) TAB PO SCH ×2 (09:23→19:09)
[2022-12-08] MEDS: ATENOLOL 25 MG (TENORMIN) TAB PO SCH (09:27)
[2022-12-08] MEDS: NS IV 1000 ML 1,000 ML IV SCH (10:05)
--- NOTE | 2022-12-08 10:14 | Physical Therapy Daily Note ---
PT Daily Note-Current Subjective Patient in bed pre tx, agrees to PT with a little encouragement, has unrated pain in both legs. Pain Section J - Health Conditions 1. Rarely or not at all 2. Occasionally 3. Frequently 4. Almost constantly 8. Unable to answer Pain Effect on Sleep: 3 Pain Interference with Therapy: 3 Pain Interference w/Day-to-Day: 3 Appearance Patient in recliner post tx with nurse call, phone, tray, all needs met, has OT still in room. Mental Status Patient Orientation: Person, Place, Situation Attachments: IV Transfers SCALE: Activities may be completed with or without assistive devices. 9-Urhlfgxere-chbfuts completes the activity by him/herself with no assistance from a helper. 5-Set-up or Clean-up Assistance-helper sets up or cleans up; patient completes activity. [place] assists only prior to or following the activity. 4-Supervision or Touching Assistance-helper provides verbal cues and/or touching/steadying and/or contact guard assistance as patient completes activity. Assistance may be provided throughout the activity or intermittently. 3-Partial/Moderate Assistance-helper does LESS THAN HALF the effort. [place] lifts, holds or supports trunk or limbs, but provides less than half the effort. 2-Substantial/Maximal Assistance-helper does MORE THAN HALF the effort. [place] lifts or holds trunk or limbs and provides more than half the effort. 5-Bukretzkl-djpifn does ALL the effort. Patient does none of the effort to complete the activity. Or, the assistance of 2 or more helpers is required for the patient to complete the activity. If activity was not attempted, code reason: 7-Patient Refused. 9-Not Applicable-not attempted and the patient did not perform the activity before the current illness, exacerbation or injury. 10-Not Attempted due to Environmental Limitations-(lack of equipment, weather restraints, etc.). 88-Not Attempted due to Medical Conditions or Safety Concerns. Roll Left & Right (QC): 4 Lying to Sitting/Side of Bed(Q: 3 Sit to Stand (QC): 4 Chair/Zey-ag-Xjncv Xfer(QC): 3 Patient needed min assist to sit to the side of the bed, he was able to stand using a rolling walker and elevated bed with CGA but was not able to transfer to the recliner. Mod assist stand pivot transfer to recliner. Exercises Seated Therapy Exercises: Ankle pumps, Long arc quads Seated Reps: 20 Treatments bed mobility and transfers, LE exercise Assessment Current Status: Fair Progress improved transfer PT Manager [employer]commerce Goals Manager Ecommerce Goals PT Manager [employer] Goals Time Frame: Dec 25, 2022 Roll Left & Right (QC): 4 Sit to Lying (QC): 4 Lying-Sitting on Side/Bed(QC): 4 Sit to Stand (QC): 4 Chair/Rie-bx-Zukei Xfer(QC): 4 Toilet Transfer (QC): 4 Walk 10 feet (QC): 4 Walk 50ft with 2 Turns (QC): 4 PT Plan Problem List Problem List: Activity Tolerance, Functional Strength, Safety, Balance, Gait, Transfer, Bed Mobility, ROM Treatment/Plan Treatment Plan: Continue Plan of Care Treatment Plan: Bed Mobility, Education, Functional Activity Francesca, Functional Strength, Gait, Safety, Therapeutic Exercise, Transfers Treatment Duration: Dec 25, 2022 Frequency: 6 times per week Estimated Hrs Per Day: .25 hour per day Patient and/or Family Agrees t: Yes Safety Risks/Education Patient Education: Transfer Techniques, Correct Positioning, Safety Issues Teaching Recipient: Patient Teaching Methods: Demonstration, Discussion Response to Teaching: Reinforcement Needed Time Time In: 928 Time Out: 939 DATE: Dec 08, 2022 Total Billed Treatment Time: 11 Total Billed Treatment 1 visit FA 11' KRISTINE HAWK PT Dec 08, 2022 10:14
--- NOTE | 2022-12-08 10:34 | Progress Note ---
BRIA PLEITEZ Maddie 12/08/22 1034: Subjective Date Seen by a Provider: Dec 08, 2022 Time Seen by a Provider: 08:02 Subjective/Events-last exam Patient is a 62 yo M admitted for lower lobe pneumonia. He is laying in bed this morning and resting quietly. His biggest concern today is that he cannot walk and is afraid of falling. Chava has only been out of bed once to use the commode next to his bed, during which he required assistance. He is still very weak. The swelling in his leg has drastically declined as he is elevating them with a foam wedge. He is also concerned about the amount of diarrhea he is passing. Notes he has probably had 8-9 bowels movements in the last two days. His stool sample for C. diff was negative. He is worried about eating due to the diarrhea, however he is currently NPO and will be having a port placement with Dr. Solis today. Patient denies any pain and states the nurses have told him the pressure wound on his bottom is healing. Notes his left knee is feeling better since kenalog injection yesterday with Dr. Ortiz. States his breathing has been doing better. He has been using his incentive spirometer and Vibrapep. Review of Systems General: No Chills, No Night Sweats; Appetite (good appetite) HEENT: No Head Aches, No Post Nasal Drip Pulmonary: No Dyspnea (is using incentive spirometer and Vibrapep), No Cough Cardiovascular: No: Chest Pain, Palpitations, Lt Headedness Gastrointestinal: Diarrhea; No: Nausea, Vomiting, Abdominal Pain Genitourinary: No Dysuria, No Hematuria Musculoskeletal: arm pain (residual from multiple IV access attempts), leg pain (chronic neuropathy) Neurological: Weakness; No: Numbness, Confusion Focused Exam Lactate Level 12/06/22 12:00: Lactic Acid Level 4.63*H 12/06/22 15:05: Lactic Acid Level 4.26*H 12/06/22 17:15: Lactic Acid Level 5.10*H Objective Exam Last Set of Vital Signs Vital Signs Date Time Temp Pulse Resp B/P (MAP) Pulse Ox O2 Delivery O2 Flow Rate FiO2 12/08/22 07:42 36.2 109 18 141/77 (98) 95 Room Air 12/08/22 03:24 0.00 0.00 12/06/22 14:35 21 Capillary Refill : I&O Intake and Output 12/08/22 00:00 Intake Total 1780 ml Output Total 400 ml Balance 1380 ml Intake Oral 780 ml IV Total 1000 ml Output Urine Total 400 ml # Voids 1 # Bowel Movements 3 General: Alert, Oriented X3, Cooperative, No Acute Distress HEENT: PERRLA, EOMI Neck: Supple Lungs: Clear to Auscultation, Normal Air Movement Heart: Normal S1, Normal S2, No Murmurs, Other (slight tachycardia) Abdomen: Normal Bowel Sounds, No Tenderness, Other (distended) Extremities: No Edema, Normal Pulses (dorsalis pedis and radial), No Tenderness/Swelling Skin: Other (Bilateral ecchymoses on forearms) Neuro: Normal Speech, Sensation Intact Psych/Mental Status: Mental Status NL Results Lab Laboratory Tests 12/07/22 12:40: Glucometer 146H 12/07/22 17:29: Glucometer 166H 12/07/22 23:43: Glucometer 143H 12/08/22 05:30: White Blood Count 12.2H, Red Blood Count 3.03L, Hemoglobin 10.5L, Hematocrit 32L , Mean Corpuscular Volume 104H, Mean Corpuscular Hemoglobin 35H, Mean Corpuscular Hemoglobin Concent 33, Red Cell Distribution Width 12.9, Platelet Count 142, Mean Platelet Volume 9.6, Sodium Level 135, Potassium Level 3.7, Chloride Level 103, Carbon Dioxide Level 21, Anion Gap 11, Blood Urea Nitrogen 11, Creatinine 0.61, Estimat Glomerular Filtration Rate 110, BUN/Creatinine Ratio 18, Glucose Level 149H, Calcium Level 8.2L, Corrected Calcium 9.1, Total Bilirubin 0.8, Aspartate Amino Transf (AST/SGOT) 28, Alanine Aminotransferase (ALT/SGPT) 19, Alkaline Phosphatase 137H, Total Protein 5.6L, Albumin 2.9L 12/08/22 05:39: Glucometer 135H Microbiology 12/07/22 C. difficile GDH Antigen & Toxins - Final, Complete 12/06/22 Blood Culture - Preliminary, Resulted No growth 12/06/22 MRSA Screen - Final, Complete MRSA not isolated 12/06/22 Urine Culture - Final, Complete Staph, Coag Neg (PATIENT SAFETY MANAGER) See Comments Meds Finished Vancomycin and is continuing meropenum Assessment/Plan Assessment/Plan Assess & Plan/Chief Complaint Assessment: Pneumonia failed 4 outpatient treatments from Urgent Care in past 6 weeks Elevated lactic acidosis not due to sepsis but due to alcoholic liver disease Remote hx of left-sided rib fractures and splenic laceration Prior CVA with left-sided weakness Multiple falls at home chronic Alcoholism Anxiety Tachycardia Gout COPD Former smoker Edema positional type Poor protein status causing third-spacing Plan: Continue broad spectrum abx Home meds Scheduled vascular access with port placement with Dr. Solis Continue PT/OT, initiate transfer to Inpatient Rehab for closer attention to building strength and endurance Gentle IVF Stop LA since alcoholic liver disease is the cause ROMANA CAMPBELL DO 12/09/22 0501: Objective Exam General: Alert, Oriented X3, Cooperative, No Acute Distress Lungs: Clear to Auscultation, Normal Air Movement Heart: Regular Rate, Normal S1, Normal S2, No Murmurs Psych/Mental Status: Mental Status NL, Mood NL Assessment/Plan Assessment/Plan Assess & Plan/Chief Complaint Appreciate Dr Ortiz and Dr Solis IRF hopefully tomorrow Supervisory-Addendum Brief Verification & Attestation Participated in pt care: history, MDM, physical Personally performed: exam, history, MDM, supervision of care Care discussed with: Medical Student Procedures: n/a Results interpretation: Verified all documentation Verification and Attestation of Medical Student E/M Service A medical student performed and documented this service in my presence. I reviewed and verified all information documented by the medical student and made modifications to such information, when appropriate. I personally performed the physical exam and medical decision making. Romana Campbell, Dec 09, 2022,05:00 BRIA PLEITEZ Dec 08, 2022 10:34 ROMANA CAMPBELL DO Dec 09, 2022 05:01
--- NOTE | 2022-12-08 11:28 | Occupational Ther Daily Note ---
OT Current Status-Daily Note Subjective Sitting on side of bed on arrival, agreeable to therapy and working toward goals to return home Mental Status/Objective Patient Orientation: Person, Place, Time, Situation Attachments: IV ADL-Treatment Therapy Code Descriptions/Definitions Functional [place]ain Measure: 0=Not Assessed/NA 4=Minimal Assistance 1=Total Assistance 5=Supervision or Setup 2=Maximal Assistance 6=Modified Swain 3=Moderate Assistance 7=Complete IndependenceSCALE: Activities may be completed with or without assistive devices. 4-Yrgtnnqcji-ijauohl completes the activity by him/herself with no assistance from a helper. 5-Set-up or Clean-up Assistance-helper sets up or cleans up; patient completes activity. [place] assists only prior to or following the activity. 4-Supervision or Touching Assistance-helper provides verbal cues and/or touching/steadying and/or contact guard assistance as patient completes activity. Assistance may be provided throughout the activity or intermittently. 3-Partial/Moderate Assistance-helper does LESS THAN HALF the effort. [place] lifts, holds or supports trunk or limbs, but provides less than half the effort. 2-Substantial/Maximal Assistance-helper does MORE THAN HALF the effort. [place] lifts or holds trunk or limbs and provides more than half the effort. 7-Imjpxdmva-eroffc does ALL the effort. Patient does none of the effort to complete the activity. Or, the assistance of 2 or more helpers is required for the patient to complete the activity. If activity was not attempted, code reason: 7-Patient Refused. 9-Not Applicable-not attempted and the patient did not perform the activity before the current illness, exacerbation or injury. 10-Not Attempted due to Environmental Limitations-(lack of equipment, weather restraints, etc.). 88-Not Attempted due to Medical Conditions or Safety Concerns. Eating (QC): 88 (NPO) Oral Hygiene (QC): 88 (NPO) Shower/Bathe Self (QC): 7 (declined sponge bathing) Lower Body Dressing (QC): 1 On/Off Footwear: 2 Toileting Hygiene (QC): 1 Toilet Transfer (QC): 1 Other Treatment Performed exercise to increase endurance to tolerate next level of rehab Education OT Patient Education: Disease process, Energy conservation, Exercise program, Modified ADL techniques, Progress toward Goal/Update tx plan, Purpose of tx/functional activities, Reviewed precautions, Rehab process, Safety issues, Transfer techniques, Use of adapted equipment Teaching Recipient: Patient Teaching Methods: Demonstration, Discussion Response to Teaching: Verbalize Understanding, Return Demonstration, Reinforcement Needed OT Records Technician Goals Correction Goals Time Frame: Dec 18, 2022 Eating (QC): 6 Oral Hygiene (QC): 6 Toileting Hygiene (QC): 6 Shower/Bathe Self (QC): 5 Upper Body Dressing (QC): 6 Lower Body Dressing (QC): 6 On/Off Footwear (QC): 6 1=Demonstrate adherence to instructed precautions during ADL tasks. 2=Patient will verbalize/demonstrate understanding of assistive devices/modifications for ADL. 3=Patient will improve strength/tolerance for activity to enable patient to perform ADL's. OT Education/Plan Problem List/Assessment Assessment: Decreased Activ Tolerance, Decreased Safety Aware, Decreased UE Strength, Dependent Transfers, Edema, Impaired Bed Mobility, Impaired Cognition, Impaired Coordination, Impaired Funct Balance, Impaired Self-Care Skills, Restricted Funct UE ROM Discharge Recommendations Plan/Recommendations: Continue POC Therapy Discharge Recommendati: Post Acute OT Treatment Plan/Plan of Care Treatment,Training & Education: Yes Patient would benefit from OT for education, treatment and training to promote independence in ADL's, mobility, safety and/or upper extremity function for ADL's. Plan of Care: ADL Retraining, Cognitive Retraining, Functional Mobility, Group Exercise/Act as Ind, UE Funct Exercise/Act, UE Neuromus Re-Ed/Coord Treatment Duration: Dec 18, 2022 Frequency: 3 times per week (3-5 times/week) Estimated Hrs Per Day: .25 hour per day Agreement: Yes Rehab Potential: Fair Patient remains in recliner w/ blanket on lap, tray table in reach w/ call light, all needs met Time Start Time: 09:35 Stop Time: 09:53 DATE: Dec 08, 2022 Total Time Billed (hr/min): 20 Billed Treatment Time 1 visit EX 1 20 min SIMRAN ADAMS OT Dec 08, 2022 11:28
[2022-12-08] MEDS ORDERED: 0.9% SODIUM CHLORIDE PF INJ 20 ML VIAL ONE (12:53)
[2022-12-08] MEDS ORDERED: BUP/EPI 0.5% 1:200,000 (SENSORCAINE) 30 ML VIAL ONE ×2 (12:53→12:55)
[2022-12-08] MEDS ORDERED: HEParin (CENTRAL IV FLUSH) 500 UNIT/5 ML SYR ONE (12:53)
[2022-12-08] MEDS ORDERED: TROUGH ORDER-PHARMACY XX ONE (13:00)
[2022-12-08] MEDS ORDERED: PROPOFOL INJECTION 50 ML IV ONE (14:18)
[2022-12-08] MEDS ORDERED: MIDAZOLAM 2 MG/2 ML (VERSED) VIAL ONE (14:18)
--- NOTE | 2022-12-08 14:49 | Anesthesia-General Post-Op ---
MAC Patient Condition Mental Status/LOC: Same as Preop Cardiovascular: Satisfactory Nausea/Vomiting: Absent Respiratory: Satisfactory Pain: Controlled Complications: Absent Post Op Complications Complications None Follow Up Care/Instructions Patient Instructions None needed. Anesthesiology Discharge Order Discharge Order Patient is doing well, no complaints, stable vital signs, no apparent adverse anesthesia problems. No complications reported per nursing. JAMES MONROY CRNA Dec 08, 2022 14:49
--- NOTE | 2022-12-08 14:56 | Progress Note-Post Operative ---
Post-Operative Progess Note Surgeon (s)/Senior Bi Developer (s) Surgeon QAMAR BALDERAS MD Senior Bi Developer: none Pre-Operative Diagnosis pneumonia with poor peripheral venous circulation Post-Operative Diagnosis same Procedure & Operative Findings Date of Procedure 12/08/22 Procedure Performed/Findings placement groshong implantable cath under flouroscopy. Anesthesia Type mac with local Estimated Blood Loss Estimated blood loss (mL): mininum Specimens/Packing Specimens Removed none QAMAR BALDERAS MD Dec 08, 2022 14:56
--- NOTE | 2022-12-08 15:33 | Diagnostic Imaging Report ---
Indication: Groshong placement. Time of Exam: 3:09 PM Correlation is made with prior chest from 12/06/2022. Left chest wall port has been placed with the tip at the SVC right atrial junction. The heart is enlarged. Lungs are clear. No pneumothorax is seen. There is cardiac loop recorder overlying the mid left chest. Impression: Port placement, as described. Dictated by: Dictated on workstation # [id number]
[2022-12-08] MEDS: LORazepam 1 MG (ATIVAN) TAB PO PRN (18:55)
[2022-12-09] VITALS (8 sets, daily range): BP systolic 99–165; BP diastolic 58–96
--- NOTE | 2022-12-09 00:08 | OPERATIVE REPORT ---
DATE OF SERVICE: 12/08/2022 ATTENDING PRIMARY CARE PHYSICIAN: Romana Martínez DO PREOPERATIVE DIAGNOSES: Left lung pneumonia, chronic obstructive pulmonary disease with poor peripheral venous circulation. POSTOPERATIVE DIAGNOSES: Left lung pneumonia, chronic obstructive pulmonary disease with poor peripheral venous circulation. PROCEDURE: Placement of left subclavian Groshong implantable catheter under fluoroscopy. SURGEON: Qamar Balderas MD ANESTHESIA: Monitored anesthesia care with local. ESTIMATED BLOOD LOSS: Minimal. FINDINGS: Catheter tip at superior vena caval -- right atrial junction. DISPOSITION: The patient tolerated the procedure well. INDICATIONS: The patient is a 62-year-old male known to us. We have done multiple previous procedures on him in the past. He presented to the Emergency Department with bilateral lower extremity edema, weakness and generalized debility. He does have a number of medical problems including neuropathy, COPD, mitral valve prolapse as well as chronic bilateral lower extremity edema. He also does have a previous history of smoking as well as currently drinks alcohol on a daily basis. He was found to have a left sided pneumonia and being treated with IV antibiotics. He has very poor peripheral venous circulation and then it has been difficult to maintain any IV access for continued therapy. The patient will require Groshong implantable catheter for continued IV access; however, due to his number of medical problems and frequent admissions and need for IV access, we will proceed with placement of a Groshong implantable catheter. DESCRIPTION OF PROCEDURE: The patient was brought to the operating room, laid supine on the table. After adequate IV pain and sedative medications and general endotracheal intubation, the chest and neck were prepped and draped in standard surgical fashion. 1% lidocaine with epinephrine was then used to anesthetize the overlying skin in the left subclavian region and the left subclavian vein was cannulated withdrawing of venous blood. Guidewire was then inserted under fluoroscopy. The cannulating needle removed and a skin incision was made using a #15 blade. The dilator and sheath were then placed over the guidewire. The dilator and guidewire were then removed and the Groshong catheter placed through the sheath until the catheter tip was at the superior vena caval -- right atrial junction under fluoroscopy. The sheath was then removed. The inner wire within the catheter was then removed. Catheter cut down to size and a port placed onto the catheter. The chest reservoir was then created by creating a plane between the subcutaneous fat and the anterior pectoralis fascia using blunt dissection as well as electrocautery with visualization of good hemostasis. The port was then placed into the reservoir and sutured to the anterior pectoralis fascia using interrupted 3-0 Vicryl suture. The subcutaneous tissue was then reapproximated with the same suture and the skin was closed using 4-0 Monocryl running subcuticular suture. Wound was then cleaned and covered with Dermabond. The port was also accessed withdrawing of venous blood and heparinized saline pushed in without any resistance. The patient tolerated the procedure well. We will get a post-procedure chest x-ray once confirmation of placement, the port may be used at any time. Job ID: [id number] DocumentID: [id number] Dictated Date: 12/08/2022 15:02:08 Truck Spotter Date: 12/08/2022 23:18:00 Dictated By: QAMAR BALDERAS MD
[2022-12-09] MEDS: MEROPENEM 500 MG in NS (IVPB) 100 ML IV SCH ×4 (03:21→21:59)
[2022-12-09] MEDS: RT-IPRATROPIUM (ATROVENT) 0.5MG/2.5ML AMP IH SCH ×4 (04:09→19:35)
[2022-12-09] MEDS: RT-ALBUTEROL SULF 2.5 MG/3 ML PRE-MIX VIAL INH SCH ×4 (04:10→19:35)
[2022-12-09 05:22] LABS: HEMATOCRIT 32 % (40-54); HEMOGLOBIN 10.6 g/dL (13.3-17.7); MEAN CORPUSCULAR HEMOGLOBIN 35 pg (25-34); MEAN CORPUSCULAR HGB CONC 33 g/dL (32-36); MEAN CORPUSCULAR VOLUME 104 fL (80-99); MEAN PLATELET VOLUME 9.1 fL (9.0-12.2); PLATELET COUNT 149 10^3/uL (130-400); WHITE BLOOD COUNT 11.9 10^3/uL (4.3-11.0)
[2022-12-09 05:47] LABS: ALBUMIN 2.9 GM/DL (3.2-4.5); POTASSIUM 3.5 MMOL/L (3.6-5.0)
[2022-12-09 05:48] LABS: CALCIUM 8.4 MG/DL (8.5-10.1)
[2022-12-09 05:50] LABS: TOTAL PROTEIN 5.6 GM/DL (6.4-8.2)
[2022-12-09 05:51] LABS: BILIRUBIN,TOTAL 0.7 MG/DL (0.1-1.0)
[2022-12-09 05:53] LABS: CREATININE SERUM 0.65 MG/DL (0.60-1.30)
[2022-12-09] MEDS: MULTIVIT W/MINERALS TAB (THERAGRAN M) PO SCH (06:10)
[2022-12-09] MEDS: PANTOPRAZOLE 40 MG (PROTONIX) TAB PO SCH (06:10)
[2022-12-09] MEDS: THIAMINE 100 MG (VITAMIN B-1) TAB PO SCH (06:11)
[2022-12-09] MEDS: NS IV 1000 ML 1,000 ML IV SCH ×2 (06:11→21:23)
[2022-12-09] MEDS: KCL 10 MEQ TAB (MICRO K) PO SCH (08:33)
[2022-12-09] MEDS: ATENOLOL 25 MG (TENORMIN) TAB PO SCH (08:34)
[2022-12-09] MEDS: MAGNESIUM OXIDE (MAG-OX)400 MG TAB PO SCH ×2 (08:34→08:39)
[2022-12-09] MEDS: DOCUSATE SODIUM 100 MG (COLACE) CAP PO SCH ×2 (08:38→19:33)
[2022-12-09] MEDS: FOLIC ACID 1 MG TAB PO SCH (08:38)
[2022-12-09] MEDS: SENNOSIDES 8.6 MG (SENOKOT) TAB PO SCH ×2 (08:40→19:33)
[2022-12-09] MEDS: PSYLLIUM POWDER (METAMUCIL) 5.8 GM PACKET PO SCH (08:40)
--- NOTE | 2022-12-09 10:36 | Physical Therapy Daily Note ---
PT Daily Note-Current Subjective Patient states he has a severe CORMIER. Agrees to PT but refuses to attempt to stand. Pain Section J - Health Conditions 1. Rarely or not at all 2. Occasionally 3. Frequently 4. Almost constantly 8. Unable to answer Pain Effect on Sleep: 3 Pain Interference with Therapy: 3 Pain Interference w/Day-to-Day: 3 Mental Status Patient Orientation: Normal For Age Transfers SCALE: Activities may be completed with or without assistive devices. 6-Zdevztnlhm-hbdhddx completes the activity by him/herself with no assistance from a helper. 5-Set-up or Clean-up Assistance-helper sets up or cleans up; patient completes activity. [place] assists only prior to or following the activity. 4-Supervision or Touching Assistance-helper provides verbal cues and/or touching/steadying and/or contact guard assistance as patient completes activity. Assistance may be provided throughout the activity or intermittently. 3-Partial/Moderate Assistance-helper does LESS THAN HALF the effort. [place] lifts, holds or supports trunk or limbs, but provides less than half the effort. 2-Substantial/Maximal Assistance-helper does MORE THAN HALF the effort. [place] lifts or holds trunk or limbs and provides more than half the effort. 4-Hdmgycoxe-ytndet does ALL the effort. Patient does none of the effort to complete the activity. Or, the assistance of 2 or more helpers is required for the patient to complete the activity. If activity was not attempted, code reason: 7-Patient Refused. 9-Not Applicable-not attempted and the patient did not perform the activity before the current illness, exacerbation or injury. 10-Not Attempted due to Environmental Limitations-(lack of equipment, weather restraints, etc.). 88-Not Attempted due to Medical Conditions or Safety Concerns. Lying to Sitting/Side of Bed(Q: 3 Sit to Stand (QC): 7 Exercises Supine Ex: Ankle pumps, Quad Set, Heel Slides, Straight leg raise Supine Reps: 15 Seated Therapy Exercises: Ankle pumps, Long arc quads, Hip flexion Seated Reps: 15 (x 2 sets) Assessment Patient remains seated EOB with RN notified. Patient tolerated treatment well. Patient voices frustration with how he feels mentally and physically. PT e ducated patient to discuss this with physician. Increase activity as tolerated by patient. PT Golf Course Patroller Goals Golf Course Patroller Goals PT Mcc Goals Time Frame: Dec 25, 2022 Roll Left & Right (QC): 4 Sit to Lying (QC): 4 Lying-Sitting on Side/Bed(QC): 4 Sit to Stand (QC): 4 Chair/Tsi-mv-Nfxnp Xfer(QC): 4 Toilet Transfer (QC): 4 Walk 10 feet (QC): 4 Walk 50ft with 2 Turns (QC): 4 PT Plan Treatment/Plan Treatment Plan: Continue Plan of Care Treatment Plan: Bed Mobility, Education, Functional Activity Francesca, Functional Strength, Gait, Safety, Therapeutic Exercise, Transfers Treatment Duration: Dec 25, 2022 Frequency: 6 times per week Estimated Hrs Per Day: .25 hour per day Patient and/or Family Agrees t: Yes Time Time In: 945 Time Out: 1011 DATE: Dec 09, 2022 Total Billed Treatment Time: 26 Total Billed Treatment 1 visit EX x 2 26 min JENNA OWUSU PT Dec 09, 2022 10:36
--- NOTE | 2022-12-09 13:30 | Progress Note ---
BRIA PLEITEZ 12/09/22 1330: Subjective Date Seen by a Provider: Dec 09, 2022 Time Seen by a Provider: 08:43 Subjective/Events-last exam Chava Vu is a 62 yo M with a past medical history of CVA, neuropathy, mitral valve prolapse, chronic diarrhea, and alcohol dependence arrived to the ER via EMS on 12/06/22 for generalized weakness. Per ED report: "This is 62-year-old gentleman presents to the emergency room via EMS with primary complaint of lower extremity edema and debility. He is unable to walk down the stairs today. He does not feel he is having an emergent life- threatening problem but could not get out of the home. He therefore decided to activate EMS to bring him to the hospital for evaluation. He has had worsening lower extremity edema recently despite using diuretic therapy. He denies any history of heart failure or liver failure. He does drink alcohol in a quantity of approximately 4 to 5 glasses of rum and Pepsi per day. He does express desire and knowledge that he needs to quit drinking. He reports being treated f or pneumonia twice in recent weeks. He reports short-term improvement but is getting weak during the process. He reports an uncomfortable feeling in his chest when he takes a deep breath. He denies any current fever or cough. His primary care provider is Dr. Campbell and his real estate leasing agent is Dr. Walker. In reviewing his medication filling record, it is noted that he has been on 3 different rounds of oral antibiotics since October 25. There was prior documentation of coronary stents and atrial fibrillation and nursing triage recalled information. Patient denies history of these conditions, and I could not find any evidence of them in review of cardiac notes in his chart. Dr. Campbell requested an MRSA nasal swab for screening and a CT of the chest with contrast for further evaluation of this persistent unresolving pneumonia/infiltrate. Meropenem is being administered in the ER along with oral magnesium. Blood cultures and lactic acid were being drawn prior to antibiotic administration. I discussed CODE STATUS with the patient and he requests a DO NOT RESUSCITATE after we discussed risks and benefits of resuscitation efforts and intubation. Patient was given hydrocodone to treat soreness from decubitus ulcers near the sacrum and gluteal cleft." During his hospital stay, he failed palcement of a PICC line and subsequently underwent Port placement with Dr. Solis on 12/08/22. He has produced copious amounts of diarrhea which has been treated with Metamucil. C. diff screening was negative and he is still having daily bowel movements. His sacral pressure injury has been managed by wound care and the patient reports it has been doing better according to his nurses. He received a left knee injection from Dr. Ortiz on 12/07/22. Bilateral legs were very swollen at time of arrival but this has resolved with use of a foam wedge to elevate them. He has been using his incentive spirometer and Vibrapep and reports his breathing alright. Notes he has been getting up more phlegm. Today he is resting in bed comfortably. He states that he has not been ambulating and that he is unable to walk. He was out of bed once to use the commode during which time he felt that he would fall. States he feels uncomfortable being assisted by staff members who are small than him because they will not be able to help him move and he could very easily have a fall. Reports he feel miserable, grumpy, and depressed today. He also has a headache which is unusual. There is pain in his legs (chronic) and left shoulder (port placement). There is no swelling in his legs and they are wrapped with sequential compression devices. Mentions he had two bowel movements last night and thinks they were diarrhea. He is agreeable to being moved to Inpatient Rehab for closer assistance in building strength and endurance for mobility. Review of Systems General: No Chills, No Night Sweats; Fatigue HEENT: Head Aches; No Post Nasal Drip, No Sore Throat Pulmonary: No Dyspnea, No Cough Cardiovascular: Palpitations, Other (tachycardia); No: Chest Pain Gastrointestinal: Diarrhea; No: Nausea, Vomiting, Abdominal Pain, Constipation Genitourinary: No Dysuria, No Hematuria Musculoskeletal: shoulder pain (left shoulder hurting from port placement), leg pain (chronic) Neurological: Weakness; No: Numbness, Confusion Focused Exam Lactate Level 12/06/22 15:05: Lactic Acid Level 4.26*H 12/06/22 17:15: Lactic Acid Level 5.10*H Objective Exam Last Set of Vital Signs Vital Signs Date Time Temp Pulse Resp B/P (MAP) Pulse Ox O2 Delivery O2 Flow Rate FiO2 12/09/22 11:43 36.7 100 18 138/70 (92) 94 Room Air 12/09/22 01:44 21 12/08/22 15:15 2.00 Capillary Refill : I&O Intake and Output 12/09/22 00:00 Intake Total 550 ml Output Total 875 ml Balance -325 ml Intake Oral 550 ml Output Urine Total 875 ml # Bowel Movements 2 General: Alert, Oriented X3, Cooperative, No Acute Distress HEENT: PERRLA, EOMI Neck: Supple Lungs: Clear to Auscultation, Normal Air Movement Heart: Normal S1, Normal S2, Other (tachycardia) Abdomen: Normal Bowel Sounds, Soft, No Tenderness, Other (Distended) Extremities: No Edema, Normal Pulses Skin: No Breakdown (sacral decubitus ulcer present), Other (large contusions on bilateal forearm) Neuro: Normal Speech, Strength at 5/5 X4 Ext Results Lab Laboratory Tests 12/08/22 17:16: Glucometer 126H 12/08/22 23:08: Glucometer 111H 12/09/22 05:02: White Blood Count 11.9H, Red Blood Count 3.05L, Hemoglobin 10.6L, Hematocrit 32L , Mean Corpuscular Volume 104H, Mean Corpuscular Hemoglobin 35H, Mean Corpuscular Hemoglobin Concent 33, Red Cell Distribution Width 13.5, Platelet Count 149, Mean Platelet Volume 9.1, Sodium Level 139, Potassium Level 3.5L, Chloride Level 105, Carbon Dioxide Level 22, Anion Gap 12, Blood Urea Nitrogen 14, Creatinine 0.65, Estimat Glomerular Filtration Rate 108, BUN/Creatinine Ratio 22, Glucose Level 110H, Calcium Level 8.4L, Corrected Calcium 9.3, Total Bilirubin 0.7, Aspartate Amino Transf (AST/SGOT) 29, Alanine Aminotransferase (ALT/SGPT) 19, Alkaline Phosphatase 124, Total Protein 5.6L, Albumin 2.9L 12/09/22 11:24: Glucometer 103 Microbiology 12/07/22 C. difficile GDH Antigen & Toxins - Final, Complete 12/06/22 Blood Culture - Preliminary, Resulted No growth 12/06/22 MRSA Screen - Final, Complete MRSA not isolated 12/06/22 Urine Culture - Final, Complete Staph, Coag Neg (LEVEL VIAL CURVATURE GAUGER) See Comments Assessment/Plan Assessment/Plan Assess & Plan/Chief Complaint Assessment: Pneumonia failed 4 outpatient treatments from Urgent Care in past 6 weeks Elevated lactic acidosis not due to sepsis but due to alcoholic liver disease Remote hx of left-sided rib fractures and splenic laceration Prior CVA with left-sided weakness Multiple falls at home chronic Alcoholism Anxiety Tachycardia Gout COPD Former smoker Edema positional type Poor protein status causing third-spacing Plan: Continue PT/OT, initiate transfer to Inpatient Rehab for closer attention to building strength and endurance Continue broad spectrum abx Home meds Gentle IVF Stop LA since alcoholic liver disease is the cause ROMANA CAMPBELL DO 12/10/22 0525: Supervisory-Addendum Brief Verification & Attestation Participated in pt care: history, MDM, physical Personally performed: exam, history, MDM, supervision of care Care discussed with: Medical Student Procedures: n/a Results interpretation: Verified all documentation Verification and Attestation of Medical Student E/M Service A medical student performed and documented this service in my presence. I reviewed and verified all information documented by the medical student and made modifications to such information, when appropriate. I personally performed the physical exam and medical decision making. Romana Campbell, Dec 10, 2022,05:24 BRIA PLEITEZ Dec 09, 2022 13:30 ROMANA CAMPBELL DO Dec 10, 2022 05:25
--- NOTE | 2022-12-09 15:00 | Occupational Ther Daily Note ---
OT Current Status-Daily Note Subjective Supine in bed, resistive to transfer w/ OT, RN and student present for transfer Mental Status/Objective Patient Orientation: Person, Place, Time, Situation Attachments: Other-See Comments ([facility] port completed 12/08/22 right side) ADL-Treatment Therapy Code Descriptions/Definitions Functional [place] Measure: 0=Not Assessed/NA 4=Minimal Assistance 1=Total Assistance 5=Supervision or Setup 2=Maximal Assistance 6=Modified [place] 3=Moderate Assistance 7=Complete IndependenceSCALE: Activities may be completed with or without assistive devices. 4-Elgooonslk-jpafmvq completes the activity by him/herself with no assistance from a helper. 5-Set-up or Clean-up Assistance-helper sets up or cleans up; patient completes activity. [place] assists only prior to or following the activity. 4-Supervision or Touching Assistance-helper provides verbal cues and/or touching/steadying and/or contact guard assistance as patient completes activity. Assistance may be provided throughout the activity or intermittently. 3-Partial/Moderate Assistance-helper does LESS THAN HALF the effort. [place] lifts, holds or supports trunk or limbs, but provides less than half the effort. 2-Substantial/Maximal Assistance-helper does MORE THAN HALF the effort. [place] lifts or holds trunk or limbs and provides more than half the effort. 5-Fqntnvquh-moiqbr does ALL the effort. Patient does none of the effort to complete the activity. Or, the assistance of 2 or more helpers is required for the patient to complete the activity. If activity was not attempted, code reason: 7-Patient Refused. 9-Not Applicable-not attempted and the patient did not perform the activity before the current illness, exacerbation or injury. 10-Not Attempted due to Environmental Limitations-(lack of equipment, weather restraints, etc.). 88-Not Attempted due to Medical Conditions or Safety Concerns. Eating (QC): 6 Oral Hygiene (QC): 5 Shower/Bathe Self (QC): 88 Upper Body Dressing (QC): 4 Lower Body Dressing (QC): 1 On/Off Footwear: 2 Toileting Hygiene (QC): 1 Toilet Transfer (QC): 1 Other Treatment BUE ther ex, AAROM LUE 10x3 flexion, abduction. Arm rest chair pushups w/ mirrored demonstration Education OT Patient Education: Correct positioning, Exercise program, Modified ADL techniques, Progress toward Goal/Update tx plan, Purpose of tx/functional activities, Reviewed precautions, Rehab process, Safety issues, Transfer techniques, Use of adapted equipment Teaching Recipient: Patient Teaching Methods: Demonstration, Discussion Response to Teaching: Verbalize Understanding, Return Demonstration, Reinforcement Needed OT Detention Goals Bath Steward Goals Time Frame: Dec 18, 2022 Eating (QC): 6 Oral Hygiene (QC): 6 Toileting Hygiene (QC): 6 Shower/Bathe Self (QC): 5 Upper Body Dressing (QC): 6 Lower Body Dressing (QC): 6 On/Off Footwear (QC): 6 1=Demonstrate adherence to instructed precautions during ADL tasks. 2=Patient will verbalize/demonstrate understanding of assistive devices/modifications for ADL. 3=Patient will improve strength/tolerance for activity to enable patient to perform ADL's. OT Education/Plan Problem List/Assessment Assessment: Decreased Activ Tolerance, Decreased UE Strength, Dependent Transfers, Impaired Bed Mobility, Impaired Cognition, Impaired Coordination, Impaired Funct Balance, Impaired Self-Care Skills, Restricted Funct UE ROM Discharge Recommendations Plan/Recommendations: Continue POC Therapy Discharge Recommendati: Post Acute OT Treatment Plan/Plan of Care Treatment,Training & Education: Yes Patient would benefit from OT for education, treatment and training to promote independence in ADL's, mobility, safety and/or upper extremity function for ADL's. Plan of Care: ADL Retraining, Cognitive Retraining, Functional Mobility, Group Exercise/Act as Ind, UE Funct Exercise/Act, UE Neuromus Re-Ed/Coord Treatment Duration: Dec 18, 2022 Frequency: 3 times per week (3-5 times/week) Estimated Hrs Per Day: .25 hour per day Agreement: Yes Rehab Potential: Fair remains up in chair w/ tray table over elevated BLES and call light in reach, all needs met Time Start Time: 14:20 Stop Time: 14:44 DATE: Dec 09, 2022 Total Time Billed (hr/min): 24 Billed Treatment Time 1 visit EX 2 24 min SIMRAN ADAMS OT Dec 09, 2022 15:00
[2022-12-09] MEDS: LORazepam 1 MG (ATIVAN) TAB PO PRN (16:50)
[2022-12-09] MEDS ORDERED: METOCLOPRAMIDE INJ 10 MG/2 ML (REGLAN) ONE (21:56)
[2022-12-09] MEDS: METOCLOPRAMIDE INJ 10 MG/2 ML (REGLAN) IVP SCH (21:59)
[2022-12-09] MEDS ORDERED: fentaNYL INJ 100 MCG/2 ML AMP IVP PRN (22:00)
[2022-12-10] MEDS: RT-IPRATROPIUM (ATROVENT) 0.5MG/2.5ML AMP IH SCH ×2 (02:41→08:00)
[2022-12-10] MEDS: RT-ALBUTEROL SULF 2.5 MG/3 ML PRE-MIX VIAL INH SCH ×2 (02:41→08:00)
[2022-12-10 03:00] VITALS: BP 141/76
[2022-12-10] MEDS: MEROPENEM 500 MG in NS (IVPB) 100 ML IV SCH ×2 (04:11→09:35)
[2022-12-10] MEDS: PANTOPRAZOLE 40 MG (PROTONIX) TAB PO SCH (05:43)
[2022-12-10] MEDS: MULTIVIT W/MINERALS TAB (THERAGRAN M) PO SCH (05:43)
[2022-12-10 06:12] LABS: HEMATOCRIT 32 % (40-54); HEMOGLOBIN 10.6 g/dL (13.3-17.7); MEAN CORPUSCULAR HEMOGLOBIN 35 pg (25-34); MEAN CORPUSCULAR HGB CONC 33 g/dL (32-36); MEAN CORPUSCULAR VOLUME 105 fL (80-99); MEAN PLATELET VOLUME 9.2 fL (9.0-12.2); PLATELET COUNT 147 10^3/uL (130-400); WHITE BLOOD COUNT 11.1 10^3/uL (4.3-11.0)
[2022-12-10 06:26] LABS: ALBUMIN 2.7 GM/DL (3.2-4.5); BILIRUBIN,TOTAL 0.9 MG/DL (0.1-1.0); CALCIUM 8.3 MG/DL (8.5-10.1); CREATININE SERUM 0.6 MG/DL (0.60-1.30); POTASSIUM 3.9 MMOL/L (3.6-5.0); TOTAL PROTEIN 5.3 GM/DL (6.4-8.2)
[2022-12-10 07:58] VITALS: BP 134/69
[2022-12-10] MEDS: METOCLOPRAMIDE INJ 10 MG/2 ML (REGLAN) IVP SCH (08:52)
[2022-12-10] MEDS: MAGNESIUM OXIDE (MAG-OX)400 MG TAB PO SCH (08:52)
[2022-12-10] MEDS: KCL 10 MEQ TAB (MICRO K) PO SCH (08:53)
[2022-12-10] MEDS: SENNOSIDES 8.6 MG (SENOKOT) TAB PO SCH (08:53)
[2022-12-10] MEDS: DOCUSATE SODIUM 100 MG (COLACE) CAP PO SCH (08:53)
[2022-12-10] MEDS: PSYLLIUM POWDER (METAMUCIL) 5.8 GM PACKET PO SCH (08:53)
[2022-12-10] MEDS: ATENOLOL 25 MG (TENORMIN) TAB PO SCH (08:53)
[2022-12-10] MEDS: FOLIC ACID 1 MG TAB PO SCH (08:53)
--- NOTE | 2022-12-10 11:19 | Occupational Ther Daily Note ---
OT Current Status-Daily Note Subjective Supine in bed Pain Numeric Pain Scale: 3 Location Body Site: Abdomen Pain Description: Pressure Mental Status/Objective Patient Orientation: Person, Place, Time, Situation Attachments: IV x ray of abdomen to access for GI blockage ADL-Treatment ADLs, functional ther ex performed to BUE, focus LUE ROM Therapy Code Descriptions/Definitions Functional [place] Measure: 0=Not Assessed/NA 4=Minimal Assistance 1=Total Assistance 5=Supervision or Setup 2=Maximal Assistance 6=Modified [place] 3=Moderate Assistance 7=Complete IndependenceSCALE: Activities may be completed with or without assistive devices. 3-Tkbnphadqm-ikfkxxh completes the activity by him/herself with no assistance from a helper. 5-Set-up or Clean-up Assistance-helper sets up or cleans up; patient completes activity. [place] assists only prior to or following the activity. 4-Supervision or Touching Assistance-helper provides verbal cues and/or touching/steadying and/or contact guard assistance as patient completes activity. Assistance may be provided throughout the activity or intermittently. 3-Partial/Moderate Assistance-helper does LESS THAN HALF the effort. [place] lifts, holds or supports trunk or limbs, but provides less than half the effort. 2-Substantial/Maximal Assistance-helper does MORE THAN HALF the effort. [place] lifts or holds trunk or limbs and provides more than half the effort. 6-Jowihlsoe-gqoiej does ALL the effort. Patient does none of the effort to complete the activity. Or, the assistance of 2 or more helpers is required for the patient to complete the activity. If activity was not attempted, code reason: 7-Patient Refused. 9-Not Applicable-not attempted and the patient did not perform the activity before the current illness, exacerbation or injury. 10-Not Attempted due to Environmental Limitations-(lack of equipment, weather restraints, etc.). 88-Not Attempted due to Medical Conditions or Safety Concerns. Eating (QC): 6 Oral Hygiene (QC): 3 Shower/Bathe Self (QC): 88 Upper Body Dressing (QC): 3 Lower Body Dressing (QC): 1 On/Off Footwear: 1 Toileting Hygiene (QC): 1 Toilet Transfer (QC): 2 Other Treatment AROM LUE, resistive exercises RUE to promote ADLs and transfers Education OT Patient Education: Disease process, Home exercise program, Progress toward Goal/Update tx plan, Purpose of tx/functional activities, Reviewed precautions, Rehab process, Safety issues, Transfer techniques, Use of adapted equipment Teaching Recipient: Patient Teaching Methods: Demonstration, Discussion Response to Teaching: Verbalize Understanding, Return Demonstration, Reinforcement Needed OT Care Home Goals Hand Tapper Goals Time Frame: Dec 18, 2022 Eating (QC): 6 Oral Hygiene (QC): 6 Toileting Hygiene (QC): 6 Shower/Bathe Self (QC): 5 Upper Body Dressing (QC): 6 Lower Body Dressing (QC): 6 On/Off Footwear (QC): 6 1=Demonstrate adherence to instructed precautions during ADL tasks. 2=Patient will verbalize/demonstrate understanding of assistive devices/modifi cations for ADL. 3=Patient will improve strength/tolerance for activity to enable patient to perform ADL's. OT Education/Plan Problem List/Assessment Assessment: Decreased Activ Tolerance, Decreased Safety Aware, Decreased UE Strength, Impaired Bed Mobility, Impaired Coordination, Impaired Funct Balance, Impaired Self-Care Skills Discharge Recommendations Plan/Recommendations: Continue POC Therapy Discharge Recommendati: Post Acute OT Treatment Plan/Plan of Care Treatment,Training & Education: Yes Patient would benefit from OT for education, treatment and training to promote independence in ADL's, mobility, safety and/or upper extremity function for ADL's. Plan of Care: ADL Retraining, Cognitive Retraining, Functional Mobility, Group Exercise/Act as Ind, UE Funct Exercise/Act, UE Neuromus Re-Ed/Coord Treatment Duration: Dec 18, 2022 Frequency: 3 times per week (3-5 times/week) Estimated Hrs Per Day: .25 hour per day Agreement: Yes Rehab Potential: Fair Remain in bed w/ MAIL HANDLER at bedside Time Start Time: 11:10 Stop Time: 11:25 DATE: Dec 10, 2022 Total Time Billed (hr/min): 15 Billed Treatment Time 1 visit ADL 1 15min SIMRAN ADAMS OT Dec 10, 2022 11:19
[2022-12-10 11:33] VITALS: BP 160/91
--- NOTE | 2022-12-10 14:52 | Diagnostic Imaging Report ---
Indication: Abdominal distention Abdominal film obtained at 0933 a.m. There is distention of large and small bowel loops with prominent stool in the colon. The findings may represent ileus. IMPRESSION: Distention of large and small bowel loops with prominent stool in the colon. Findings may represent ileus or early obstruction. Consider follow-up as clinically warranted. Dictated by: Dictated on workstation # [id number]
== END 2022-12-10 11:58 | DRG 194 ==
LOC: EDUNIT# 09:19 → ER 09:20 → 4TH 11:47
PROVIDERS: ADMIT Internal Medicine; ATTEND Internal Medicine
PROC: 3E023NZ Introduction of Analgesics, Hypnotics, Sedatives into Muscle, Percutaneous Approach (ICD-10-PCS; 2022-12-07)
PROC: 02HV33Z Insertion of Infusion Device into Superior Vena Cava, Percutaneous Approach (ICD-10-PCS; principal; 2022-12-08 14:16)
DX: J18.9 Pneumonia, unspecified organism (principal); E87.20 Acidosis, unspecified; J44.0 Chronic obstructive pulmonary disease with (acute) lower respiratory infection; I69.354 Hemiplegia and hemiparesis following cerebral infarction affecting left non-dominant side; Z87.891 Personal history of nicotine dependence; I10 Essential (primary) hypertension; F41.9 Anxiety disorder, unspecified; F32.A Depression, unspecified; I73.9 Peripheral vascular disease, unspecified; G62.9 Polyneuropathy, unspecified; E78.00 Pure hypercholesterolemia, unspecified; K58.9 Irritable bowel syndrome, unspecified; M19.90 Unspecified osteoarthritis, unspecified site; G89.29 Other chronic pain; M54.9 Dorsalgia, unspecified; F10.20 Alcohol dependence, uncomplicated; L89.159 Pressure ulcer of sacral region, unspecified stage; E83.42 Hypomagnesemia; Z79.899 Other long term (current) drug therapy; R00.0 Tachycardia, unspecified; M10.9 Gout, unspecified; E66.01 Morbid (severe) obesity due to excess calories; M17.12 Unilateral primary osteoarthritis, left knee; Z68.28 Body mass index [BMI] 28.0-28.9, adult
CPT/HCPCS: 36415; 71045; 71260; 74018; 76000; 80053; 80320; 81000; 82947; 83605; 83735; 83880; 85025; 85027; 85610; 86141; 87040; 87081; 87088; 87324; 87449; 93041; 94640; 94664; 94760

== ENCOUNTER 2022-12-10 09:23 | Inpatient (IN) | payer BC ==
[~2022-12-10] VITALS: Ht 188 cm; Wt 108.3 kg
[~2022-12-10 09:23] MED LIST changes: +ALBU2.5V4 PO; +FURO40TA4 PO; +MULT-974 PO; +RT-ALBUINH PO
--- NOTE | 2022-12-10 11:28 | PM&R Post Admission Assessment ---
PM&R HP Date of Visit: Dec 10, 2022 Time of Visit: 12:00 History of Present Illness CC: Debility following PNA and ileus with worsened function from remote CVA with left sided weakness along with alcoholism HPI: See below from med-surg admit notes. Patient is past the alcohol withdrawal situation so will transfer to ARU and DC Telemetry and utilize his new port for IV access to complete abx. Ileus is an issue and Dr Solis is monitoring. Chava Vu is a 62 yo M with a past medical history of CVA, neuropathy, mitral valve prolapse, chronic diarrhea, and alcohol dependence arrived to the ER via EMS on 12/06/22 for generalized weakness. He was admitted with Left Lower Lobar Pneumonia. Per ED report: "This is 62-year-old gentleman presents to the emergency room via EMS with primary complaint of lower extremity edema and debility. He is unable to walk down the stairs today. He does not feel he is having an emergent life- threatening problem but could not get out of the home. He therefore decided to activate EMS to bring him to the hospital for evaluation. He has had worsening lower extremity edema recently despite using diuretic therapy. He denies any history of heart failure or liver failure. He does drink alcohol in a quantity of approximately 4 to 5 glasses of rum and Pepsi per day. He does express desire and knowledge that he needs to quit drinking. He reports being treated for pneumonia twice in recent weeks. He reports short-term improvement but is getting weak during the process. He reports an uncomfortable feeling in his chest when he takes a deep breath. He denies any current fever or cough. His primary care provider is Dr. Campbell and his pharmaceutical operator is Dr. Walker. In re viewing his medication filling record, it is noted that he has been on 3 different rounds of oral antibiotics since October 25. There was prior documentation of coronary stents and atrial fibrillation and nursing triage recalled information. Patient denies history of these conditions, and I could not find any evidence of them in review of cardiac notes in his chart. Dr. Campbell requested an MRSA nasal swab for screening and a CT of the chest with contrast for further evaluation of this persistent unresolving pneumonia/infiltrate. Meropenem is being administered in the ER along with oral magnesium. Blood cultures and lactic acid were being drawn prior to antibiotic administration. I discussed CODE STATUS with the patient and he requests a DO NOT RESUSCITATE after we discussed risks and benefits of resuscitation efforts and intubation. Patient was given hydrocodone to treat soreness from decubitus ulcers near the sacrum and gluteal cleft." During his hospital course: "He failed placement of a PICC line and subsequently underwent Port placement with Dr. Solis on 12/08/22. He had produced copious amounts of diarrhea which had been treated with Metamucil. C. diff screening was negative. Had a sacral pressure injury managed by wound care and the patient reported it had been doing better according to his nurses. He received a left knee injection from Dr. Ortiz on 12/07/22. Bilateral legs were very swollen at time of arrival but this has resolved with use of a foam wedge to elevate them. He has been using his inc entive spirometer and Vibrapep and reports his breathing alright. Notes he has been getting up more phlegm. He states that he has not been ambulating and that he is unable to walk. He was out of bed once to use the commode during which time he felt that he would fall. States he feels uncomfortable being assisted by staff members who are small than him because they will not be able to help him move and he could very easily have a fall. Reports he feel miserable, grumpy, and depressed today. He also has a he adache which is unusual. There is pain in his legs (chronic) and left shoulder (port placement). There is no swelling in his legs and they are wrapped with sequential compression devices. Mentions he had two bowel movements last night and thinks they were diarrhea. He is agreeable to being moved to Inpatient Rehab for closer assistance in building strength and endurance for mobility." Today the patient is laying comfortably in bed. He has been in a very grim mood, stating he feels like, "this is the end." Last night, he was complaining of abdominal pain and distention. He was found to have hypoactive bowel sounds. Dr. Solis was consulted and abdominal x-ray completed on 12/10/22. Patient was also started on Reglan and prn Fentanyl. Reports his last bowel movement was two nights ago. He is voiding but needs assistance with urinal. Not really eating because he does not have an appetite. He has been agreeable to PT/OT but refuses to walk. States that he has been transferred with assistance to the recliner in his room. Reports his headache remains from yesterday. His legs are not swollen and he has been breathing okay. BRIA PLEITEZ Past Gxbnmga-Heptbx-Xteggy Hx Past Med/Social Hx: Reviewed Nursing Past Med/Soc Hx, Reviewed and Corrections made Patient Social History Marrital Status: Employed/Student: retired Alcohol Use: Regular Use Alcohol Beverage of Choice: Rum Smoking Status: Former Smoker Type Used: Cigarettes Recent Hopitalizations: No Immunizations Up To Date Pediatric: Yes Seasonal Allergies Seasonal Allergies: Yes Past Medical History Respiratory: COPD, Emphysema, Pneumonia Currently Using CPAP: No Currently Using BIPAP: No Cardiac: High Cholesterol, Hypertension Neurological: Stroke Sexually Transmitted Disease: No HIV/AIDS: No Genitourinary: Bladder Infection Gastrointestinal: Chronic Diarrhea, Irritable Bowel Musculoskeletal: Arthritis, Chronic Back Pain Hearing Impairment: Hard of Hearing Psychosocial: Anxiety History of Blood Disorders: No Adverse Reaction to Blood Miller: No Family History FH: neuropathy 19 MOTHER Mitral valve prolapse 19 MOTHER No Pertinent Family Hx, Heart Disease 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 PM&R Allergy/Meds/Data Review Allergies Coded Allergies: Sulfa (Sulfonamide Antibiotics) (Verified Allergy, Unknown, 09/11/22) Uncoded Allergies: SULFA (Allergy, Unknown, 01/24/22) Home Medications Scheduled Atenolol (Atenolol), 25 MG PO DAILY, (Reported) Folic Acid (Folic Acid), 1 MG PO DAILY, (Reported) Magnesium Oxide (Magnesium Oxide), 400 MG PO DAILY, (Reported) Multivitamin (Multi-Vitamin Daily), 1 EACH PO DAILY, (Reported) Pantoprazole Sodium (Pantoprazole Sodium), 40 MG PO DAILY, (Reported) Potassium Chloride (Klor-Con 10), 10 MEQ PO DAILY, (Reported) Scheduled PRN Albuterol Sulfate (Proventil Hfa), 1 PUFF PO Q6H PRN for SHORTNESS OF BREATH, (Reported) Albuterol Sulfate (Albuterol Sulfate), 1 VIAL PO BID PRN for SHORTNESS OF BREATH, (Reported) Furosemide (Furosemide), 40 MG PO DAILY PRN for FLUID RETENTION, (Reported) Ibuprofen (Advil), 400 MG PO Q8H PRN for PAIN-MILD (1-4), (Reported) Lorazepam (Ativan), 0.5 MG PO BID PRN for ANXIETY, (Reported) Current Medications Current Medications Reviewed Review of Systems Constitutional: see HPI EENTM: no symptoms reported Respiratory: no symptoms reported Cardiovascular: no symptoms reported Gastrointestinal: abdominal pain, constipation, nausea, vomiting Genitourinary: no symptoms reported Musculoskeletal: no symptoms reported Skin: no symptoms reported Psychiatric/Neurological: No Symptoms Reported All Other Systems Reviewed Negative Unless Noted: Yes Physical Exam Physical Exam Vital Signs Capillary Refill : Height, Weight, BMI Height: 6'2.00" Weight: 220lbs. 8.8oz. 100.250797dn; 29.00 BMI Method:Stated General Appearance: No Apparent Distress, WD/WN, Anxious, Chronically ill Eyes: Bilateral Eye Normal Inspection, Bilateral Eye PERRL HEENT: PERRL/EOMI, Normal ENT Inspection, Pharynx Normal Neck: Full Range of Motion, Normal Inspection, Non Tender, Supple, Carotid Bruit Respiratory: Chest Non Tender, Lungs Clear, No Accessory Muscle Use, No Respiratory Distress, Decreased Breath Sounds Cardiovascular: Regular Rate, Rhythm, No Edema, No Gallop, No JVD, No Murmur, Normal Peripheral Pulses Gastrointestinal: Normal Bowel Sounds, No Organomegaly, No Pulsatile Mass, Non Tender, Soft Back: Normal Inspection, No CVA Tenderness, No Vertebral Tenderness, Decreased Range of Motion (left) Extremity: Normal Capillary Refill, Normal Inspection, Normal Range of Motion, Non Tender, No Calf Tenderness, No Pedal Edema Neurologic/Psychiatric: Alert, Oriented x3, sewing machine attachment tester II-XII Norm as Tested, Abnormal Gait, Depressed Affect, Motor Weakness (left sided weakness) Skin: Normal Color, Warm/Dry Lymphatic: No Adenopathy PM&R Medical Assessment & Plan REHAB/MEDICAL ASSESSMENT AND PLAN: REHAB IMPAIRMENT GROUP: PNA and debility ETIOLOGIC DIAGNOSIS: PNA and debility The comorbidities that impact the patients function and/or functional outcome by: remote CVA with left sided weakness, lower extremity edema, recurrent PNA, former smoker, alcoholism with continued use REHAB PLAN: The patient is being admitted to our comprehensive inpatient rehabilitation facility and can tolerate the intensity of service consisting of at least: 180 minutes of therapy a day, 5 out of 7 days a week Rehab treatment will consist of: PT OT will focus on regaining function with use of AD in order to gain stamina and ambulation in order to return home to independent living The patient/family has a good understanding of our discharge process and will benefit from an interdisciplinary inpatient rehabilitation program. The patient has potential to make improvement and is in need of at least two of the following multidisciplinary therapies including but not limited to physical, occupational, speech, and prosthetics and orthotics. Additionally the patient will need services from respiratory, nutritional services, wound care, psychology, etc. (Customize this to each patient). Given the patients complex condition and risk of further medical complications, rehabilitation services cannot be safely or effectively provided at a lower level of care such as a penitentiary facility. BARRIERS TO DISCHARGE: Left sided weakness along with alcoholism ESTIMATED LOS: 10 days DISPOSITION: Home RELEVANT CHANGES SINCE PREADMISSION SCREENING: I have compared the patients medical and functional status at the time of the preadmission screening and there are: no changes PROGNOSIS: Fair REHABILITATION GOALS: 1.PT OT will focus on regaining function with use of AD in order to gain stamina and ambulation in order to return home to independent living All the above goals were reviewed with the patient and he/she is in agreement. By signing this document, I acknowledge that I have personally performed a full physical examination on this patient within 24 hours of admission to this inpatient rehabilitation facility and have determined the patient to be able to tolerate the above course of treatment at an intensive level for a reasonable period of time. I will be completing a detailed individualized Plan of Care for this patient by day #4 of the patients stay based upon the Preadmission Screen, the Post-Admission Evaluation, and the therapy evaluations. Admission Dx/Comorbidities: (1) Debility Status: Acute ICD Codes: R53.81 - Other malaise (2) Left lower lobe pneumonia Status: Acute ICD Codes: J18.9 - Pneumonia, unspecified organism (3) Sacral decubitus ulcer Status: Acute ICD Codes: L89.159 - Pressure ulcer of sacral region, unspecified stage (4) Alcohol dependence Status: Acute ICD Codes: F10.20 - Alcohol dependence, uncomplicated (5) Colon distention ICD Codes: K63.89 - Other specified diseases of intestine (6) Left-sided weakness Status: Acute ICD Codes: R53.1 - Weakness (7) Hypertension Status: Chronic ICD Codes: I10 - Essential (primary) hypertension (8) Neuropathy Status: Chronic ICD Codes: G62.9 - Polyneuropathy, unspecified (9) Anxiety Status: Chronic ICD Codes: F41.9 - Anxiety disorder, unspecified (10) Gout ICD Codes: M10.9 - Gout, unspecified (11) COPD (chronic obstructive pulmonary disease) ICD Codes: J44.9 - Chronic obstructive pulmonary disease, unspecified Assessment/Plan Assessment and Plan Assess & Plan/Chief Complaint Assessment: Debility Pneumonia failed 4 outpatient treatments from Urgent Care in past 6 weeks Ileus Elevated lactic acidosis not due to sepsis but due to alcoholic liver disease Remote hx of left-sided rib fractures and splenic laceration Prior CVA with left-sided weakness Multiple falls at home chronic Alcoholism Anxiety Tachycardia Gout COPD Former smoker Edema positional type Poor protein status causing third-spacing Neuropathy Plan: Pain control Monitor closely Lovenox Ambulate HARDY CAMPBELL DO Dec 10, 2022 11:28
[2022-12-10] MEDS ORDERED: ONDANSETRON 4 MG (ZOFRAN) ORAL DISSOLVE TAB PO PRN (11:30)
[2022-12-10] MEDS ORDERED: FLEET ENEMA ADULT 1 EA BTL PR PRN (11:30)
[2022-12-10] MEDS ORDERED: LACTULOSE SYRUP 10GM/15ML (ENULOSE) 30ML UDC PO PRN ×2 (11:30→13:00)
[2022-12-10] MEDS ORDERED: DOCUSATE SODIUM 100 MG (COLACE) CAP PO PRN (11:30)
[2022-12-10] MEDS ORDERED: diphenhydrAMINE 25 MG TAB (BENADRYL) PO PRN ×2 (11:30→13:00)
[2022-12-10] MEDS ORDERED: LOPERAMIDE 2 MG (IMODIUM) TABLET PO PRN (11:30)
[2022-12-10] MEDS ORDERED: ALPRAZolam 0.25 MG (XANAX) TAB PO PRN (11:30)
[2022-12-10] MEDS ORDERED: MELATONIN 3 MG TABLET PO PRN (11:30)
[2022-12-10] MEDS ORDERED: ACETAMINOPHEN 325 MG TABLET PO PRN ×2 (11:30→13:00)
[2022-12-10] MEDS ORDERED: CALCIUM CARBONATE 500 MG (TUMS) TAB.CHEW PO PRN (11:30)
[2022-12-10] MEDS ORDERED: BISACODYL 10 MG SUPP (DULCOLAX) PR PRN (11:30)
[2022-12-10] MEDS ORDERED: guaiFENesin/CODEINE (ROBITUSSIN AC) 10ML UDC PO PRN (11:30)
[2022-12-10 11:45] VITALS: BP 116/76
--- NOTE | 2022-12-10 12:06 | Occupational Therapy Eval ---
OT Evaluation-General/PLF Medical Diagnosis Admission Date Medical Diagnosis: pna; debility Onset Date: Dec 06, 2022 Therapy Diagnosis Therapy Diagnosis: decreased ADL status Height/Weight Height (Feet): 6 Height (Inches): 2.00 Weight (Pounds): 220 Weight (Ounces): 8.8 Referral Physician: Mauricio Garza Reason: Evaluation/Treatment Medical History Pertinent Medical History: Alcoholism, COPD, CVA, HTN, Neuropathy, PVD, Renal Insufficiency Additional Medical History neuropathy, CVA (L side weakness), ETOH abuse, anxiety, irritable bowel Current History ED 12/06/22 with c/o weakness and tightness in chest, difficulty ambulating at home. Transfer to ARU 12/10/22. Social History Home: Single Level Current Living Status: Spouse Entry Into Home: Ramp, Stairs Without Railing Steps Into Home: 2 ADL-Prior Level of Function SCALE: Activities may be completed with or without assistive devices. 4-Lamghyxccd-kccopra completes the activity by him/herself with no assistance from a helper. 5-Set-up or Clean-up Assistance-helper sets up or cleans up; patient completes activity. [place] assists only prior to or following the activity. 4-Supervision or Touching Assistance-helper provides verbal cues and/or touching/steadying and/or contact guard assistance as patient completes activity. Assistance may be provided throughout the activity or intermittently. 3-Partial/Moderate Assistance-helper does LESS THAN HALF the effort. [place] lifts, holds or supports trunk or limbs, but provides less than half the effort. 2-Substantial/Maximal Assistance-helper does MORE THAN HALF the effort. [place] lifts or holds trunk or limbs and provides more than half the effort. 0-Hotyovqtg-egmkit does ALL the effort. Patient does none of the effort to complete the activity. Or, the assistance of 2 or more helpers is required for the patient to complete the activity. If activity was not attempted, code reason: 7-Patient Refused. 9-Not Applicable-not attempted and the patient did not perform the activity before the current illness, exacerbation or injury. 10-Not Attempted due to Environmental Limitations-(lack of equipment, weather restraints, etc.). 88-Not Attempted due to Medical Conditions or Safety Concerns. ADL PLOF Comments Pt reports he is primarily independent with ADLs and functional mobility at PLOF, no AD. He occasionally needs assistance with self care tasks. He has a tub/shower, SC, GBs. Self Care: Independent Functional Cognition: Independent DME/Equipment: Bath Chair, Grab Bars, Tub/Shower OT Current Status Subjective Pt agreeable to OT Tx. Mental Status/Objective Patient Orientation: Person, Place, Time, Situation Attachments: IV Current Hand Dominance: Right Upper Extremity ROM RUE WFL, LUE decreased. Shoulder flexion to approx 20 degrees AROM, WFL at elbow/fingers with increased time. Upper Extremity Coordination Decreased LUE from previous CVA Upper Extremity Sensation Decreased LUE from previous CVA, pt reports this is his baseline. No new changes noted Upper Extremity Strength RUE grossly 3+/5, LUE grossly 2/5 ADL-Treatment Eating (QC): 5 Oral Hygiene (QC): 4 (SBA) Shower/Bathe Self (QC): 1 (2 person assist required in stand for washing/drying buttocks.) Upper Body Dressing (QC): 3 (mod A with overhead shirt.) Lower Body Dressing (QC): 1 (2 person assist required. Assist all parts.) On/Off Footwear (QC): 1 (total assist) Toileting Hygiene (QC): 1 (2 person assist required for pant hike. Assist all parts.) Other Treatments Pt agreeable to OT evaluation, followed by cotreat. OT/PT cotreat due to skill of 2 clinicians required which a rehabilitator could not perform in order to learning coordinator rdinate UE/LEs, decrease fall risk, and due to pt's limitations in strength, activity tolerance, mobility/transfers, and fear of falling. OT focused on UE placement, cues for sequencing and safety and ADLs, PT focused on LE placement, gross overall movement, transfers and mobility. Pt attempted w/c mobility using R UE/LE, but unable to propel w/c forward. Pt taken to his room, requests to stay up in w/c due to fear of falling with transfers and not wanting to transfer to bed/recliner at this time. Pt completed ADLs. Post tx, pt in w/c, call light in reach and all needs met. SBA rolling, min A Supine to/from sit, max A Sit to/from stand, max A car transfer. Cues required for safety and positioning, unable to take steps at this time. Total assist w/c mobility. Education OT Patient Education: Correct positioning, Energy conservation, Exercise program, Modified ADL techniques, Progress toward Goal/Update tx plan, Purpose of tx/functional activities, Rehab process Teaching Recipient: Patient Teaching Methods: Discussion Response to Teaching: Verbalize Understanding BIMS CAM BIMS Expression of Ideas and Wants: Without Difficulty Understanding Verbal Content: Understands Brief Interview/Mental Status: Yes IRF RODDY BIMS: IRF RODDY BIMS Response (Comments) Value Repitition of Three Words Three 3 Recalls Socks Yes, No Cue Required 2 Recalls Blue Yes, No Cue Required 2 Recalls Bed Yes, No Cue Required 2 Year Correct 3 Month Accurate Within 5 Days 2 Day Correct 1 Total 15 [address] Ass[address] Mental [address] No CAM Mental Status Change/Baseline: 0 Inattention: 0 Disorganized thinkin Altered level of consciousness: 0 OT Short Term Goals Short Term Goals Time Frame: Dec 24, 2022 Toileting hygiene: 4 Shower/bathe self: 4 Upper body dressin Lower body dressin Putting on/taking off footwear: 3 OT Breakfast Manager Goals Breakfast Manager Goals Time Frame: Jan 07, 2023 Eating (QC): 6 Oral Hygiene (QC): 6 Toileting Hygiene (QC): 6 Shower/Bathe Self (QC): 6 Upper Body Dressing (QC): 6 Lower Body Dressing (QC): 6 On/Off Footwear (QC): 6 Additional Goals: 1-Demonstrate ADL Tasks, 2-Verbalize Understanding, 3- ImproveStrength/Francesca 1=Demonstrate adherence to instructed precautions during ADL tasks. 2=Patient will verbalize/demonstrate understanding of assistive devices/modifications for ADL. 3=Patient will improve strength/tolerance for activity to enable patient to perform ADL's. OT Education/Plan Problem List/Assessment Assessment: Decreased Activ Tolerance, Decreased UE Strength, Impaired Funct Balance, Impaired I ADL's, Impaired Self-Care Skills, Restricted Funct UE ROM Discharge Recommendations Plan/Recommendations: Continue POC Treatment Plan/Plan of Care Patient would benefit from OT for education, treatment and training to promote independence in ADL's, mobility, safety and/or upper extremity function for ADL's. Plan of Care: ADL Retraining, Functional Mobility, Group Exercise/Act as Ind, UE Funct Exercise/Act Treatment Duration: Jan 07, 2023 Frequency: At least 5 of 7 days/Wk (IRF) Estimated Hrs Per Day: 1.5 hours per day Agreement: Yes Rehab Potential: Fair Time Start Time: 11:45 Stop Time: 12:10 DATE: Dec 10, 2022 Total Time Billed (hr/min): 25 Billed Treatment Time OT eval x10' ([id number]), Cotreat x15 ([id number]) 1, EVM (10'), FA (15') WILFREDO CORLEY OT Dec 10, 2022 12:06
--- NOTE | 2022-12-10 12:40 | Physical Therapy Evaluation ---
PT Evaluation-General Medical Diagnosis Admission Date Dec 10, 2022 at 11:50 Medical Diagnosis: pna; debility Onset Date: Dec 06, 2022 Therapy Diagnosis Therapy Diagnosis: impaired mobility Height/Weight Height (Feet): 6 Height (Inches): 2.00 Weight (Pounds): 220 Weight (Ounces): 8.8 Referral Physician: Romana Martínez DO Reason for Referral: Evaluation/Treatment Medical History Pertinent Medical History: Alcoholism, COPD, CVA, HTN, Neuropathy, PVD, Renal Insufficiency Social History Home: Single Level Current Living Status: Spouse Entry Into Home: Ramp, Stairs Without Railing PT Steps Into Home: 2 Prior Prior Level of Function SCALE: Activities may be completed with or without assistive devices. 6-Ehikdyomqp-jvcwoxb completes the activity by him/herself with no assistance from a helper. 5-Set-up or Clean-up Assistance-helper sets up or cleans up; patient completes activity. [place] assists only prior to or following the activity. 4-Supervision or Touching Assistance-helper provides verbal cues and/or touching/steadying and/or contact guard assistance as patient completes activity. Assistance may be provided throughout the activity or intermittently. 3-Partial/Moderate Assistance-helper does LESS THAN HALF the effort. [place] lifts, holds or supports trunk or limbs, but provides less than half the effort. 2-Substantial/Maximal Assistance-helper does MORE THAN HALF the effort. [place] lifts or holds trunk or limbs and provides more than half the effort. 5-Wnblbxhqu-dwizns does ALL the effort. Patient does none of the effort to complete the activity. Or, the assistance of 2 or more helpers is required for the patient to complete the activity. If activity was not attempted, code reason: 7-Patient Refused. 9-Not Applicable-not attempted and the patient did not perform the activity before the current illness, exacerbation or injury. 10-Not Attempted due to Environmental Limitations-(lack of equipment, weather restraints, etc.). 88-Not Attempted due to Medical Conditions or Safety Concerns. Bed Mobility: 6 Transfers (B,C,W/C): 6 Gait: 6 Indoor Mobility (Ambulation): Independent Prior Devices Use: Walker PT Evaluation-Current Subjective Patient in bed pre tx, agrees to PT, has no pain at rest but significant pain in left knee with weight bearing. Will be co-treating with OT for part of tx due t o poor patient mobility, strength, endurance, severe debility, coordinate UE and LE during activity, safety and reduce risk of falls. Pain Section J - Health Conditions 1. Rarely or not at all 2. Occasionally 3. Frequently 4. Almost constantly 8. Unable to answer Pain Effect on Sleep: 3 Pain Interference with Therapy: 3 Pain Interference w/Day-to-Day: 3 Pt/Family Goals to be independent at home Objective Patient Orientation: Person, Place, Situation Attachments: IV ROM/Strength ROM Lower Extremities WNL Strength Lower Extremities RLE grossly 3/5, LLE grossly 3-/5 Sensory Vision: Functional Hearing: Functional Hand Dominance: Right Sensation Right Lower Extremit: Impaired Sensation Left Lower Extremity: Impaired Transfers Roll Left & Right (QC): 4 Sit to Lying (QC): 3 Lying to Sitting/Side of Bed(Q: 3 Sit to Stand (QC): 2 Chair/Enw-xn-Mvxmv Xfer(QC): 2 Toilet Transfer (QC): 2 Car Transfer (QC): 2 Patient performs rolling with SBA, supine <-> sit min assist, sit <-> stand and transfers max assist, car transfer max assist. Patient needs cues for positioning and safety, pain in left knee. Patient attempted to take steps during transfer to but could not. Gait Walk 10 feet (QC): 88 Walk 50 ft with 2 Turns(QC): 88 Walk 150 ft (QC): 88 Walking 10ft/uneven surface-QC: 88 Wheelchair Training Does the Pt Use a Wheelchair?: Yes Wheel 50 ft with 2 turns (QC): 1 Wheel 150 ft (QC): 1 Type of Wheelchair: Manual Patient is dependent for WC mobility, attempted to propel WC with right arm and leg but could not get enough traction with right foot to steer. Stairs 1 Step (curb) (QC): 88 4 Steps (QC): 88 12 Steps (QC): 88 Balance Sitting Static: Normal Sitting Dynamic: Normal Standing Static: Poor Standing Dynamic: Poor Picking up an Object (QC): 88 Treatment Patient also performed some dressing. PT performed bed mobility and transfers, WC mobility, OT performed UE positioning and safety during activity, dressing. Assessment/Needs Patient has impaired mobility, strength, endurance. Patient needs max assist for transfers, cannot ambulate at this time. Rehab Potential: Guarded PT Short Term Goals Short Term Goals Time Frame: Dec 17, 2022 Sit to lyin Lying to sitting on side of be: 4 Sit to stand: 3 (mod assist) Chair/xnz-zp-ymwyl transfer: 3 (mod assist) Walk 10 feet: 3 PT Usp Goals Edge Dyer Goals PT Edge Dyer Goals Time Frame: Dec 24, 2022 Roll Left to Right (QC): 6 Sit to Lying (QC): 6 Lying-Sitting on Side/Bed(QC): 6 Sit to Stand (QC): 4 (CGA) Chair/Xbd-nj-Onmch Xfer(QC): 4 (CGA) Toilet/Commode Transfer (QC): 4 (CGA) Car Transfer (QC): 3 (Diana) Walk 10 feet (QC): 4 (CGA) Walk 10ft-Uneven Surface(QC): 4 (CA) Walk 50ft with 2 Turns (QC): 4 (CGA) Walk 150 ft (QC): 88 Wheel 50 feet with 2 turns (QC: 4 (SBA) Wheel 150 feet: 4 (SBA) 1 Step (curb) (QC): 88 4 Steps (QC): 88 12 Steps (QC): 88 Picking up an Object (QC): 4 (CGA using a light fixture servicer) PT Plan Problem List Problem List: Activity Tolerance, Functional Strength, Safety, Balance, Gait, Transfer, Bed Mobility, ROM Treatment/Plan Treatment Plan: Continue Plan of Care Treatment Plan: Bed Mobility, Education, Functional Activity Francesca, Functional Strength, Group Therapy, Gait, Safety, Therapeutic Exercise, Transfers Treatment Duration: Dec 24, 2022 Frequency: At least 5 of 7 days/Wk (IRF) Estimated Hrs Per Day: 1.5 hours per day Patient and/or Family Agrees t: Yes Safety Risks/Education Patient Education: Transfer Techniques, Correct Positioning, W/C Management, Safety Issues Teaching Recipient: Patient Teaching Methods: Demonstration, Discussion Response to Teaching: Reinforcement Needed Discharge Recommendations Plan Patient will perform bed mobility and transfer training, balance and endurance training, functional strengthening, gait training, and education, to improve functional mobility and independence at home. Therapy Discharge Recommendati: Scheduled Assistance, Home & Family, Post Acute PT Time Time In: 1130 Time Out: 1210 DATE: Dec 10, 2022 Total Billed Treatment Time: 30 Total Billed Treatment 1 visit EVM 15' FA 15' PT eval from [id number], OT eval from [id number], co-treat from [id number] KRISTINE HAWK PT Dec 10, 2022 12:39
[2022-12-10] MEDS ORDERED: ONDANSETRON 4 MG/2 ML (SDV) Z0FRAN IV PRN (13:00)
[2022-12-10] MEDS ORDERED: ANTACID SUSP 30 ML UDC (MYLANTA) PO PRN (13:00)
[2022-12-10] MEDS ORDERED: MILK OF MAGNESIA 400 MG/5 ML 30 ML UDC PO PRN (13:00)
[2022-12-10] MEDS ORDERED: SENNA W/DOCUSATE (SENOKOT S) TABLET PO PRN (13:00)
[2022-12-10] MEDS ORDERED: polyethylene glycoL POWDER 17 GM (MIRALAX) PACK PO PRN (13:00)
[2022-12-10] MEDS ORDERED: LORazepam INJ 2 MG/ML (ATIVAN) VIAL IM/IV PRN (13:00)
[2022-12-10] MEDS ORDERED: ONDANSETRON 4 MG (ZOFRAN) ORAL DISSOLVE TAB SL PRN (13:00)
--- NOTE | 2022-12-10 13:09 | Progress Note ---
BRIA PLEITEZ 12/10/22 1309: Progress Note Chava Vu is a 62 yo M with a past medical history of CVA, neuropathy, mitral valve prolapse, chronic diarrhea, and alcohol dependence arrived to the ER via EMS on 12/06/22 for generalized weakness. He was admitted with Left Lower Lobar Pneumonia. Per ED report: "This is 62-year-old gentleman presents to the emergency room via EMS with primary complaint of lower extremity edema and debility. He is unable to walk down the stairs today. He does not feel he is having an emergent life- threatening problem but could not get out of the home. He therefore decided to activate EMS to bring him to the hospital for evaluation. He has had worsening lower extremity edema recently despite using diuretic therapy. He denies any history of heart failure or liver failure. He does drink alcohol in a quantity of approximately 4 to 5 glasses of rum and Pepsi per day. He does express desire and knowledge that he needs to quit drinking. He reports being treated for pneumonia twice in recent weeks. He reports short-term improvement but is getting weak during the process. He reports an uncomfortable feeling in his chest when he takes a deep breath. He denies any current fever or cough. His primary care provider is Dr. Campbell and his application manager is Dr. Walker. In reviewing his medication filling record, it is noted that he has been on 3 different rounds of oral antibiotics since October 25. There was prior documentation of coronary stents and atrial fibrillation and nursing triage recalled information. Patient denies history of these conditions, and I could not find any evidence of them in review of cardiac notes in his chart. Dr. Campbell requested an MRSA nasal swab for screening and a CT of the chest with contrast for further evaluation of this persistent unresolving pneumonia/infiltrate. Meropenem is being administered in the ER along with oral magnesium. Blood cultures and lactic acid were being drawn prior to antibiotic administration. I discussed CODE STATUS with the patient and he requests a DO NOT RESUSCITATE after we discussed risks and benefits of resuscitation efforts and intubation. Patient was given hydrocodone to treat soreness from decubitus ulcers near the sacrum and gluteal cleft." During his hospital course: "He failed placement of a PICC line and subsequently underwent Port placement iris Solis on 12/08/22. He had produced copious amounts of diarrhea which had been treated with Metamucil. C. diff screening was negative. Had a sacral pressure injury managed by wound care and the patient reported it had been doing better according to his nurses. He received a left knee injection from Dr. Ortiz on 12/07/22. Bilateral legs were very swollen at time of arrival but this has resolved with use of a foam wedge to elevate them. He has been using his incentive spirometer and Vibrapep and reports his breathing alright. Notes he has been getting up more phlegm. He states that he has not been ambulating and that he is unable to walk. He was out of bed once to use the commode during which time he felt that he would fall. States he feels uncomfortable being assisted by staff members who are small than him because they will not be able to help him move and he could very easily have a fall. Reports he feel miserable, grumpy, and depressed today. He also has a headache which is unusual. There is pain in his legs (chronic) and left shoulder (port placement). There is no swelling in his legs and they are wrapped with sequential compression devices. Mentions he had two bowel movements last night and thinks they were diarrhea. He is agreeable to being moved to Inpatient Rehab for closer assistance in building strength and endurance for mobility." Today the patient is laying comfortably in bed. He has been in a very grim mood, stating he feels like, "this is the end." Last night, he was complaining of abdominal pain and distention. He was found to have hypoactive bowel sounds. Dr. Solis was consulted and abdominal x-ray completed on 12/10/22. Patient was also started on Reglan and prn Fentanyl. Reports his last bowel movement was two nights ago. He is voiding but needs assistance with urinal. Not really eating because he does not have an appetite. He has been agreeable to PT/OT but refuses to walk. States that he has been transferred with assistance to the recliner in his room. Reports his headache remains from yesterday. His legs are not swollen and he has been breathing okay. ROMANA CAMPBELL DO 12/10/22 [id number]: Supervisory-Addendum Brief Verification & Attestation Participated in pt care: history, MDM, physical Personally performed: exam, history, MDM, supervision of care Care discussed with: Medical Student Procedures: n/a Results interpretation: Verified all documentation Verification and Attestation of Medical Student E/M Service A medical student performed and documented this service in my presence. I reviewed and verified all information documented by the medical student and made modifications to such information, when appropriate. I personally performed the physical exam and medical decision making. Romana Campbell, Dec 10, 2022,17:06 BRIA PLEITEZ Dec 10, 2022 13:09 ROMANA CAMPBELL DO Dec 10, 2022 17:06
--- NOTE | 2022-12-10 14:46 | ST Cognitive Linguistic Eval ---
Speech Evaluation-General Medical Diagnosis PNA; Debility Onset Date: Dec 06, 2022 Therapy Diagnosis Therapy Diagnosis: Intact (Baseline) Cognitive Skills Precautions Precautions: Fall, Pressure Ulcer Precautions/Isolations: Fall Prevention, Standard Precautions, Pressure Ulcer Referral Referring Physician: Dr. Martínez Reason for Referral: Evaluation/Treatment Medical History Pertinent Medical History: Alcoholism, COPD, CVA, HTN, Neuropathy, PVD, Renal Insufficiency Reviewed History: Yes Social History Current Living Status: Spouse Speech PLF-Current Status Prior Level of Function The patient denied concerns or difficulties with his current speech, language or cognition. Subjective The patient was seated upright in his wheelchair upon entrance to his room by the clinician. The patient greeted the clinician appropriately and was agreeable to participation in the cognitive linguistic evaluation. Language Eval: Auditory Comprehends Simple Yes/No Ques: Functional Indent/Objects Multiple Garcia: Functional Follows 1-Step Commands: Functional Follows General Conversations: Functional Language Eval: Verbal Language Completes Spontaneous Greeting: Functional Produces Auto, Serial Info: Functional Word Finding: Functional Requests Basic Needs: Functional States Basic Personal Info: Functional Language Evaluation: Reading Follows Simple Written Direct: Functional Language Evaluation: Writing Writes to Simple Dictation: Functional Cognitive Patient Orientation The patient demonstrated independent orientation to self, location, month, day of the week, date and year. Objective Cognitive Domain Attention: WNL Memory: WNL Problem Solving: Functional Executive Functions: WNL Visuospatial Skills: WNL Composite Severity Rating: WNL Clock Drawing Severity Rating: WNL Objective Formal/Standardized Tests [facility] Mental Status Exam (UMS) Results The patient demonstrated a result of +29/30 on the SLUMS which correlates to cognitive linguistic skills within normal limits. Oral Motor/Speech Production The patient does not display dysarthria or apraxia of speech at this time. The patient is 100% intelligible in known and unknown contexts. Impression The patient demonstrated cognitive linguistic skills within normal limits and at baseline. The patient participated in the SLUMS approximately one year prior during his ARU stay with identical findings (+29/30). Skilled speech pathology services are not warranted at this time. Speech-Plan Treatment Plan Speech Therapy Treatment Plan: Discontinue ST Treatment Duration: Dec 10, 2022 Frequency: 1 time per week Estimated Hrs Per Day: .25 hour per day Rehab Potential: Guarded Safety Risks/Education Teaching Recipient: Patient Teaching Methods: Discussion Response to Teaching: Verbalize Understanding Education Topics Provided: Results, Recommendations, Plan of Care Time Speech Therapy Time In: 12:10 Speech Therapy Time Out: 12:30 DATE: Dec 10, 2022 Total Billed Time: 20 Billed Treatment Time 1, ANIA CAZARES ELIZ[facility] ST Dec 10, 2022 14:46
--- NOTE | 2022-12-10 14:54 | Physical Therapy Daily Note ---
PT Daily Note-Current Subjective Pt. and present in room, pt. expresses that he is discouraged. This ICE GUARD INSPECTOR encouraging him as it has not been that long ago that he was able to stand and walk. After co Rx with OT pt. very encouraged after standing x 5 and SPT w/c to bed. Pain Numeric Pain Scale: 5-Moderate Pain Location: Left Location Body Site: Knee Pain Description: Ache Section J - Health Conditions 1. Rarely or not at all 2. Occasionally 3. Frequently 4. Almost constantly 8. Unable to answer Pain Effect on Sleep: 3 Pain Interference with Therapy: 3 Pain Interference w/Day-to-Day: 3 Appearance swollen tight abdomen Mental Status Patient Orientation: Normal For Age Attachments: IV Transfers SCALE: Activities may be completed with or without assistive devices. 0-Uogzaibqxw-wnchepo completes the activity by him/herself with no assistance from a helper. 5-Set-up or Clean-up Assistance-helper sets up or cleans up; patient completes activity. [place] assists only prior to or following the activity. 4-Supervision or Touching Assistance-helper provides verbal cues and/or touching/steadying and/or contact guard assistance as patient completes activity. Assistance may be provided throughout the activity or intermittently. 3-Partial/Moderate Assistance-helper does LESS THAN HALF the effort. [place] lifts, holds or supports trunk or limbs, but provides less than half the effort. 2-Substantial/Maximal Assistance-helper does MORE THAN HALF the effort. [place] lifts or holds trunk or limbs and provides more than half the effort. 8-Nilqzrgtw-fgxeak does ALL the effort. Patient does none of the effort to complete the activity. Or, the assistance of 2 or more helpers is required for the patient to complete the activity. If activity was not attempted, code reason: 7-Patient Refused. 9-Not Applicable-not attempted and the patient did not perform the activity before the current illness, exacerbation or injury. 10-Not Attempted due to Environmental Limitations-(lack of equipment, weather restraints, etc.). 88-Not Attempted due to Medical Conditions or Safety Concerns. Roll Left & Right (QC): 4 Sit to Lying (QC): 3 Sit to Stand (QC): 3 pt. in w/c with PT OT conferring regarding proper w/c height to accomodate sit to stand as well as situation. Pt. able to pull up using bilat UEs at raised bed level with bed rail up, pt. pulling up x 4 with min to mod assist of 2, pt. stood x 4 approx 1 m each then fatigued or had pain in left knee that caused him to sit. for SPT w/c to bed pt. was // to bed with R side next to bed, pt. able to again use bilat UEs on bed rail to stand with min to mod asst of 2 , however SPT to bed required mod asst of one, sit to sup required mod asst. Treatments co Rx with OT secondary to severe weakness and max dependence for TRFs and mobility. PT OT coordinating for partial bathing , dressing and modifying seating situation with approx 5 inches of height. pt. performed "pull up "style sit to stands and parallel SPT to bed. Assessment Current Status: Good Progress gave good effort, more encouraged after Rx. PT Short Term Goals Short Term Goals Time Frame: Dec 17, 2022 Sit to lyin Lying to sitting on side of be: 4 Sit to stand: 3 (mod assist) Chair/kew-gc-psrpz transfer: 3 (mod assist) Walk 10 feet: 3 PT Skilled Nursing Goals Instrument Repairer Helper Goals PT Skilled Nursing Goals Time Frame: Dec 24, 2022 Roll Left & Right (QC): 6 Sit to Lying (QC): 6 Lying-Sitting on Side/Bed(QC): 6 Sit to Stand (QC): 4 (CGA) Chair/Pwo-lz-Lhlql Xfer(QC): 4 (CGA) Toilet Transfer (QC): 4 (CGA) Car Transfer (QC): 3 (Diana) Does the Patient Walk: No and Walking Goal IS indicated Walk 10 feet (QC): 4 (CGA) Walk 50ft with 2 Turns (QC): 4 (CGA) Walk 150 ft (QC): 88 Walking 10ft on Uneven Surface: 4 (CA) 1 Step (curb) (QC): 88 4 Steps (QC): 88 12 Steps (QC): 88 Picking up an Object (QC): 4 (CGA using a childcare worker) Wheel 50 feet with 2 turns (QC: 4 (SBA) Wheel 150 feet: 4 (SBA) PT Plan Treatment/Plan Treatment Plan: Continue Plan of Care Treatment Plan: Bed Mobility, Education, Functional Activity Francesca, Functional Strength, Group Therapy, Gait, Safety, Therapeutic Exercise, Transfers Treatment Duration: Dec 24, 2022 Frequency: At least 5 of 7 days/Wk (IRF) Estimated Hrs Per Day: 1.5 hours per day Patient and/or Family Agrees t: Yes Safety Risks/Education Patient Education: Transfer Techniques, Correct Positioning, Disease Process, Safety Issues Teaching Recipient: Patient Teaching Methods: Demonstration, Discussion Response to Teaching: Verbalize Understanding, Return Demonstration, Reinforcement Needed Time Time In: 1400 Time Out: 1450 DATE: Dec 10, 2022 Total Billed Treatment Time: 50 Total Billed Treatment 1,FA50m, (co Rx w OT 1410 to 1450 (40m)) KYMBERLY SANCHEZ ICE GUARD INSPECTOR Dec 10, 2022 14:54
--- NOTE | 2022-12-10 15:17 | Occupational Ther Daily Note ---
OT Current Status-Daily Note Subjective Pt agreeable to OT tx. Mental Status/Objective Patient Orientation: Normal For Age ADL-Treatment Therapy Code Descriptions/Definitions Functional [place] Measure: 0=Not Assessed/NA 4=Minimal Assistance 1=Total Assistance 5=Supervision or Setup 2=Maximal Assistance 6=Modified [place] 3=Moderate Assistance 7=Complete IndependenceSCALE: Activities may be completed with or without assistive devices. 5-Kyi[place]wn-pocpydf completes the activity by him/herself with no assistance from a helper. 5-Set-up or Clean-up Assistance-helper sets up or cleans up; patient completes activity. [place] assists only prior to or following the activity. 4-Supervision or Touching Assistance-helper provides verbal cues and/or touching/steadying and/or contact guard assistance as patient completes activity . Assistance may be provided throughout the activity or intermittently. 3-Partial/Moderate Assistance-helper does LESS THAN HALF the effort. [place] lifts, holds or supports trunk or limbs, but provides less than half the effort. 2-Substantial/Maximal Assistance-helper does MORE THAN HALF the effort. [place] lifts or holds trunk or limbs and provides more than half the effort. 4-Tafptcmzo-xfketz does ALL the effort. Patient does none of the effort to complete the activity. Or, the assistance of 2 or more helpers is required for the patient to complete the activity. If activity was not attempted, code reason: 7-Patient Refused. 9-Not Applicable-not attempted and the patient did not perform the activity before the current illness, exacerbation or injury. 10-Not Attempted due to Environmental Limitations-(lack of equipment, weather restraints, etc.). 88-Not Attempted due to Medical Conditions or Safety Concerns. Other Treatment [id number]: OT/PT cotreat and due to skill of 2 clinicians required that a rehabilitation services aide could not perform in order to coordinate UE/LEs, decrease fall risk, and due to pt's limitations in strength, activity tolerance, mobility/transfers, and fear of falling. OT focused on ADLs, cues for sequencing and safety and UE placement, PT focused on LE placement, gross overall movement, transfers and mobility. Pt completed sponge bath and dressing at w/c, utilizing bed rail during sit to stands to perform posterior hygiene. Pt expresses fear of falling and distended abdomen limiting pt's ability to reach forwards towards feet for LE dressing and footwear. Pt completed several sit to stand transfers using bed rail and support placed in w/c to increase seat height (min-mod A). Pt performed SPT from w/c to bed (mod A), using bed rail. Sit to supine mod A. End of cotreat. [id number]: OT tx. Pt expressed increased difficulty with IADLs at home, difficu lty getting things in/out of washer/dryer, and cleaning up pet food when it spills on the floor. Pt has had increased difficulty with ADLS and IADLs over the last couple of weeks due to his pneumonia. OT educated pt on adaptive techniques for problems pt listed, he verbalized understanding. OT educated pt on various community resources such as grocery delivery vs grocery bulk picker, he verbalized understanding. Pt positioned to comfort. Post tx, pt in bed, call light in reach and all need met. OT Short Term Goals Short Term Goals Time Frame: Dec 24, 2022 Toileting hygiene: 4 Shower/bathe self: 4 Upper body dressin Lower body dressin Putting on/taking off footwear: 3 OT Promotions Assistant Sales Marketing Goals Usp Goals Time Frame: Jan 07, 2023 Acute change in mental status: 0 Inattention: 0 Disorganized thinkin Altered level of consciousness: 0 Eating (QC): 6 Oral Hygiene (QC): 6 Toileting Hygiene (QC): 6 Shower/Bathe Self (QC): 6 Upper Body Dressing (QC): 6 Lower Body Dressing (QC): 6 On/Off Footwear (QC): 6 Additional Goals: 1-Demonstrate ADL Tasks, 2-Verbalize Understanding, 3- ImproveStrength/Francesca 1=Demonstrate adherence to instructed precautions during ADL tasks. 2=Patient will verbalize/demonstrate understanding of assistive devices/modifications for ADL. 3=Patient will improve strength/tolerance for activity to enable patient to perform ADL's. OT Education/Plan Problem List/Assessment Assessment: Decreased Activ Tolerance, Decreased UE Strength, Impaired Funct Balance, Impaired I ADL's, Impaired Self-Care Skills, Restricted Funct UE ROM Discharge Recommendations Plan/Recommendations: Continue POC Treatment Plan/Plan of Care Patient would benefit from OT for education, treatment and training to promote independence in ADL's, mobility, safety and/or upper extremity function for ADL's. Plan of Care: ADL Retraining, Functional Mobility, Group Exercise/Act as Ind, UE Funct Exercise/Act Treatment Duration: Jan 07, 2023 Frequency: At least 5 of 7 days/Wk (IRF) Estimated Hrs Per Day: 1.5 hours per day Agreement: Yes Rehab Potential: Guarded Time Start Time: 14:10 Stop Time: 15:05 DATE: Dec 10, 2022 Total Time Billed (hr/min): 55 Billed Treatment Time cotreat x40 ([id number]), OT tx x15 ([id number]) 1, ADL 4 (55') WILFREDO CORLEY OT Dec 10, 2022 15:17
[2022-12-10] MEDS: NS IV 1000 ML 1,000 ML IV SCH (15:42)
[2022-12-10] MEDS: MEROPENEM 500 MG in NS (IVPB) 100 ML IV SCH ×2 (15:42→20:20)
[2022-12-10] MEDS: DICYCLOMINE 10 MG (BENTYL) CAP PO SCH (17:55)
[2022-12-10] MEDS: METOCLOPRAMIDE INJ 10 MG/2 ML (REGLAN) IVP SCH ×2 (17:56→20:58)
[2022-12-10] MEDS: BISACODYL 10 MG SUPP (DULCOLAX) PR PRN (18:01)
[2022-12-10] MEDS: ENOXAPARIN 40 MG/0.4 ML (LOVENOX) SYR SC SCH (18:03)
[2022-12-10] MEDS: RT-IPRATROPIUM (ATROVENT) 0.5MG/2.5ML AMP IH SCH ×2 (18:39→21:41)
[2022-12-10] MEDS: RT-ALBUTEROL SULF 2.5 MG/3 ML PRE-MIX VIAL INH SCH ×2 (18:39→21:41)
[2022-12-10 20:00] VITALS: BP_SYST 132; BP_SYST 151; BP_DIAS 63; BP_DIAS 76
[2022-12-10] MEDS: DOCUSATE SODIUM 100 MG (COLACE) CAP PO SCH (20:00)
[2022-12-10] MEDS: SENNOSIDES 8.6 MG (SENOKOT) TAB PO SCH (20:00)
[2022-12-10] MEDS: polyethylene glycoL POWDER 17 GM (MIRALAX) PACK PO SCH (20:00)
[2022-12-10] MEDS: LORazepam 0.5 MG (ATIVAN) TABLET PO PRN (20:20)
[2022-12-10] MEDS ORDERED: SENNA W/DOCUSATE (SENOKOT S) TABLET PO SCH (21:00)
[2022-12-10] MEDS ORDERED: METOCLOPRAMIDE INJ 10 MG/2 ML (REGLAN) IVP SCH (21:00)
[2022-12-10] MEDS ORDERED: DOCUSATE SODIUM 100 MG (COLACE) CAP PO SCH (21:00)
[2022-12-11] MEDS: MELATONIN 3 MG TABLET PO PRN (00:17)
[2022-12-11] MEDS: LORazepam 0.5 MG (ATIVAN) TABLET PO PRN ×3 (00:17→20:11)
[2022-12-11] MEDS: DICYCLOMINE 10 MG (BENTYL) CAP PO SCH ×5 (00:17→23:43)
[2022-12-11] MEDS: MEROPENEM 500 MG in NS (IVPB) 100 ML IV SCH ×4 (02:15→20:15)
[2022-12-11] MEDS: NS IV 1000 ML 1,000 ML IV SCH ×2 (04:30→08:29)
[2022-12-11] MEDS: KCL 10 MEQ TAB (MICRO K) PO SCH (06:05)
[2022-12-11] MEDS: PANTOPRAZOLE 40 MG (PROTONIX) TAB PO SCH (06:05)
[2022-12-11] MEDS: MULTIVIT W/MINERALS TAB (THERAGRAN M) PO SCH (06:06)
[2022-12-11 06:12] LABS: BASOPHILS % (AUTO) 0 % (0-10); HEMOGLOBIN 10.2 g/dL (13.3-17.7); MEAN CORPUSCULAR VOLUME 105 fL (80-99)
[2022-12-11 06:14] LABS: EOSINOPHILS # (AUTO) 0.2 10^3/uL (0.0-0.3); EOSINOPHILS % (AUTO) 2 % (0-10); HEMATOCRIT 30 % (40-54); LYMPHOCYTES # (AUTO) 0.9 10^3/uL (1.0-4.0); LYMPHOCYTES % (AUTO) 10 % (12-44); MEAN CORPUSCULAR HEMOGLOBIN 36 pg (25-34); MEAN CORPUSCULAR HGB CONC 34 g/dL (32-36); MEAN PLATELET VOLUME 10.3 fL (9.0-12.2); MONOCYTES # (AUTO) 0.8 10^3/uL (0.0-1.0); MONOCYTES % (AUTO) 8 % (0-12); NEUTROPHILS # (AUTO) 7.1 10^3/uL (1.8-7.8); NEUTROPHILS % (AUTO) 78 % (42-75); PLATELET COUNT 125 10^3/uL (130-400)
--- NOTE | 2022-12-11 06:37 | PM&R Progress Note ---
Subjective HPI/CC On Admission Date Seen by Provider: Dec 11, 2022 Time Seen by Provider: 12:00 Subjective/Events-last exam 12/11/2022: Ileus remains Abdomen is taut Patient really cannot walk well Overall very declined Will continue antibiotics for 1 more day Supportive care will continue Review of Systems General: Fatigue, Malaise Cardiovascular: Edema Gastrointestinal: Nausea, Abdominal Pain Objective Exam Vital Signs Vital Signs Date Time Temp Pulse Resp B/P (MAP) Pulse Ox O2 Delivery O2 Flow Rate FiO2 12/11/22 08:48 Room Air 12/11/22 07:48 90 12/11/22 07:11 36.6 102 20 154/86 (108) Capillary Refill : General Appearance: No Apparent Distress, WD/WN, Anxious, Chronically ill HEENT: PERRL/EOMI, Normal ENT Inspection, Pharynx Normal Neck: Full Range of Motion, Normal Inspection, Non Tender, Supple, Carotid Bruit Respiratory: Chest Non Tender, Lungs Clear, No Accessory Muscle Use, No Respiratory Distress, Decreased Breath Sounds Cardiovascular: Regular Rate, Rhythm, No Edema, No Gallop, No JVD, No Murmur, Normal Peripheral Pulses Gastrointestinal: Normal Bowel Sounds, No Organomegaly, No Pulsatile Mass, Non Tender, Soft Back: Normal Inspection, No CVA Tenderness, No Vertebral Tenderness, Decreased Range of Motion (left) Extremity: Normal Capillary Refill, Normal Inspection, Normal Range of Motion, Non Tender, No Calf Tenderness, No Pedal Edema Neurologic/Psychiatric: Alert, Oriented x3, corn sheller operator II-XII Norm as Tested, Abnormal Gait, Depressed Affect, Motor Weakness (left sided weakness) Skin: Normal Color, Warm/Dry Lymphatic: No Adenopathy Results/Procedures Lab Laboratory Tests 12/11/22 06:00 12/11/22 06:35 Patient resulted labs reviewed. FIM Transfers Therapy Code Descriptions/Definitions Functional [place] Measure: 0=Not Assessed/NA 4=Minimal Assistance 1=Total Assistance 5=Supervision or Setup 2=Maximal Assistance 6=Modified [place] 3=Moderate Assistance 7=Complete IndependenceSCALE: Activities may be completed with or without assistive devices. 0-Gswwbijxxu-acbomly completes the activity by him/herself with no assistance from a helper. 5-Set-up or Clean-up Assistance-helper sets up or cleans up; patient completes activity. [place] assists only prior to or following the activity. 4-Supervision or Touching Assistance-helper provides verbal cues and/or touching/steadying and/or contact guard assistance as patient completes activity. Assistance may be provided throughout the activity or intermittently. 3-Partial/Moderate Assistance-helper does LESS THAN HALF the effort. [place] lifts, holds or supports trunk or limbs, but provides less than half the effort. 2-Substantial/Maximal Assistance-helper does MORE THAN HALF the effort. [place] lifts or holds trunk or limbs and provides more than half the effort. 1-Xvfbsnnop-olvoqk does ALL the effort. Patient does none of the effort to complete the activity. Or, the assistance of 2 or more helpers is required for the patient to complete the activity. If activity was not attempted, code reason: 7-Patient Refused. 9-Not Applicable-not attempted and the patient did not perform the activity before the current illness, exacerbation or injury. 10-Not Attempted due to Environmental Limitations-(lack of equipment, weather restraints, etc.). 88-Not Attempted due to Medical Conditions or Safety Concerns. Roll Left to Right (QC): 4 Sit to Lying (QC): 3 Sit to Stand (QC): 3 Chair/Cws-kq-Aprnt Xfer(QC): 2 Car Transfer (QC): 2 Gait Training Walk 10 feet (QC): 88 Walk 50 ft with 2 Turns(QC): 88 Walk 150 ft (QC): 88 Walking 10ft/uneven surface-QC: 88 Wheelchair Training Does the Pt Use a Wheelchair?: Yes Wheel 50 ft with 2 turns (QC): 1 Wheel 150 ft (QC): 1 Type of Wheelchair: Manual Stair Training 1 Step (curb) (QC): 88 4 Steps (QC): 88 12 Steps (QC): 88 Balance Picking up an Object (QC): 88 ADL-Treatment Eating (QC): 5 Oral Hygiene (QC): 4 (SBA) Shower/Bathe Self (QC): 1 (2 person assist required in stand for washing/drying buttocks.) Upper Body Dressing (QC): 3 (mod A with overhead shirt.) Lower Body Dressing (QC): 1 (2 person assist required. Assist all parts.) On/Off Footwear (QC): 1 (total assist) Toileting Hygiene (QC): 1 (2 person assist required for pant hike. Assist all parts.) Assessment/Plan Assessment and Plan Assess & Plan/Chief Complaint Assessment: Debility Pneumonia failed 4 outpatient treatments from Urgent Care in past 6 weeks Ileus Elevated lactic acidosis not due to sepsis but due to alcoholic liver disease Remote hx of left-sided rib fractures and splenic laceration Prior CVA with left-sided weakness Multiple falls at home chronic Alcoholism Anxiety Tachycardia Gout COPD Former smoker Edema positional type Poor protein status causing third-spacing Neuropathy Plan: Pain control Monitor closely Lovenox Ambulate 12/11/2022: Hep-Lock IV fluid Complete antibiotics (1) Debility Status: Acute (2) Left lower lobe pneumonia Status: Acute (3) Sacral decubitus ulcer Status: Acute (4) Alcohol dependence Status: Acute (5) Colon distention (6) Left-sided weakness Status: Acute (7) Hypertension Status: Chronic (8) Neuropathy Status: Chronic (9) Anxiety Status: Chronic (10) Gout (11) COPD (chronic obstructive pulmonary disease) HARDY CAMPBELL DO Dec 11, 2022 06:37
--- NOTE | 2022-12-11 06:37 | Individualized Plan of Care ---
Individualized Plan of Care Rehab Nursing IPOC Order Admission Date Dec 10, 2022 at 11:50 Current Orders Orders Admission Order(Inpt,Obs,Sdc) (12/10/22 11:23) Vital Signs: Per Unit Policy ( 08,16,00 (12/10/22 11:23) Juan Luo (12/10/22 11:23) Sequential Compression Device (12/10/22 11:23) Petroleum Engineering Teacher-Inpt Rehab Con (12/10/22 11:23) Rehab Nursing Orders-Ipoc (12/10/22 11:23) Physical Therapy Rehab Orders (12/10/22 11:23) Occupational Therapy Rehab Ord (12/10/22 11:23) Speech Therapy Rehab Orders (12/10/22:23) Cbc With Automated Diff (12/11/22 06:00) Comprehensive Metabolic Panel (12/11/22 06:00) Precautions (Aru) (12/10/22 11:23) Weekly Weight WEEK (12/10/22:23) Rehab-Intensity Of Therapy (12/10/22 11:23) Initiate Admission Nursing Pro .admission (12/10/22 11:23) Alprazolam Tablet (Xanax Tablet) (12/10/22 11:30) Calcium Carbonate Chew Tablet (Antacid C (12/10/22 11:30) Diphenhydramine Tablet (Benadryl Tablet) (12/10/22 11:30) Docusate Sodium Capsule (Colace Capsule) (12/10/22 21:00) Docusate Sodium Capsule (Colace Capsule) (12/10/22 11:30) Bisacodyl Suppository (Dulcolax Supposit (12/10/22 11:30) Lactulose Oral Solution (Enulose Oral So (12/10/22 11:30) Na Phos/Na Biphos Enema (Fleet Enema Akhil (12/10/22 11:30) Guaifenesin/Codeine Syrup (Robitussin Ac (12/10/22 11:30) Loperamide Tablet (Imodium Tablet) (12/10/22 11:30) Melatonin Tablet (Melatonin Tablet) (12/10/22 11:30) Polyethylene Glycol Powder Pkt (Miralax (12/10/22 21:00) Ondansetron Oral Dissolve Tab (Zofran (12/10/22 11:30) Senna S Tablet (Senokot S Tablet) (12/10/22 21:00) Acetaminophen Tablet/Caplet (Tylenol T (12/10/22 11:30) Initiate Admission Nursing Pro .admission (12/10/22 11:23) Admission Arrival Bed Request (12/10/22 11:48) Dressing Order (Intervention) DAILY PRN (12/10/22 12:45) Incentive Spirometry (Nursing) Q2H (12/10/22 12:45) Juan Luo (12/10/22 12:45) General/Regular (12/10/22 Lunch) Atenolol Tablet (Tenormin Tablet) (12/11/22 09:00) Diphenhydramine Tablet (Benadryl Tablet) (12/10/22 13:00) Docusate Sodium Capsule (Colace Capsule) (12/10/22 21:00) Bisacodyl Suppository (Dulcolax Supposit (12/10/22 13:00) Lactulose Oral Solution (Enulose Oral So (12/10/22 13:00) Folic Acid Tablet (Folic Acid Tablet) (12/11/22 09:00) Ipratropium 0.02% Neb Solution (Atrovent (12/10/22 15:00) Lorazepam Injection (Ativan Injection) (12/10/22 13:00) Antacid Suspension (Mylanta Suspension (12/10/22 13:00) Magnesium Oxide Tablet (Mag Ox Tablet) (12/11/22 09:00) Melatonin Tablet (Melatonin Tablet) (12/10/22 13:00) Meropenem (Merrem 500 Mg) (12/10/22 14:00) Metoclopramide Injection (Reglan Injecti (12/10/22 21:00) Magnesium Hydroxide Oral Susp (Mom Oral (12/10/22 13:00) Polyethylene Glycol Powder Pkt (Miralax (12/10/22 13:00) Therapeutic Multivitamin Tab (Vitamins, (12/11/22 07:00) Ns Iv 1000 Ml (Sodium Chloride 0.9%) (12/10/22 13:00) Ondansetron Oral Dissolve Tab (Zofran (12/10/22 13:00) Pantoprazole Tablet (Protonix Tablet) (12/11/22 07:00) Potassium Chloride (Tablet) (Klor Con Ta (12/11/22 07:00) Psyllium Powder (Metamucil Powder) (12/11/22 09:00) Sennosides Tablet (Senokot Tablet) (12/10/22 21:00) Senna S Tablet (Senokot S Tablet) (12/10/22 13:00) Calcium Carbonate Chew Tablet (Antacid C (12/10/22 13:00) Acetaminophen Tablet/Caplet (Tylenol T (12/10/22 13:00) Ondansetron Injection (Zofran Injectio (12/10/22 13:00) Fentanyl Inj (Sublimaze Injection) (12/10/22 13:00) Oxycodone Immediate Rel Tablet (Oxyir Ta (12/10/22 13:00) Consult Wound Care Physician (12/10/22 12:45) Incentive Spirometry Initial (12/10/22 12:45) Mat Initiate Protocol (12/10/22 12:45) Albuterol Pre-Mix Nebs (Rt) (Proventil (12/10/22 15:00) Consult General Surgery (12/10/22 12:45) Svn Small Volume Nebulizer (12/10/22 12:45) Incentive Spirometry (Nursing) Q2H (12/10/22 12:45) Svn Small Volume Nebulizer (12/10/22 12:45) Lorazepam Tablet (Ativan Tablet) (12/10/22 12:45) Patient Visit (12/10/22 ) Speech Sound Lang Comp (12/10/22 ) Treat. Speech/Lang/Voice (12/10/22 ) Patient Visit (12/10/22 ) Functional Activities, Ea 15 (12/10/22 ) Patient Visit (12/10/22 ) Pt Eval Moderate Complexity (12/10/22 ) Functional Activities, Ea 15 (12/10/22 ) Metoclopramide Injection (Reglan Injecti (12/10/22 17:00) Dicyclomine Capsule (Bentyl Capsule) (12/10/22 18:00) Clear Liquid (12/10/22 Dinner) Abdomen, Flat & Upright/Decub (12/11/22 06:00) Code/Resuscitation (12/10/22 16:44) Enoxaparin Injection (Lovenox Injection) (12/10/22 18:00) Patient Visit (12/11/22 ) Functional Activities, Ea 15 (12/11/22 ) Rehab Nursing Orders: Ongoing Assess. of Function Status, Bladder Management, Bladder Scan, Bladder Training, Bowel Management, Bowel Training, Disease Management & Educaiton, DVT Prophylaxis, Fall Prevention, Fluid/Electrolyte/Nutrition Mgmt, Infection Prevention, Medication Management & Education, Management of Risks & Complications, Management of Skin Intergrity, Nutrition Management, Pain Management, Patient/Family Support, Safety Management Intensity of Therapy to be met Patient to be seen: Min.3h per day/5 of 7d PT IPOC Problem List: Activity Tolerance, Functional Strength, Safety, Balance, Gait, Transfer, Bed Mobility, ROM Treatment Plan: Continue Plan of Care Bed Mobility, Education, Functional Activity Francesca, Functional Strength, Group Therapy, Gait, Safety, Therapeutic Exercise, Transfers Treatment Duration: Dec 24, 2022 Frequency: At least 5 of 7 days/Wk (IRF) Estimated Hrs Per Day: 1.5 hours per day OT IPOC Problems: Decreased Activ Tolerance, Decreased UE Strength, Impaired Funct Balance, Impaired I ADL's, Impaired Self-Care Skills, Restricted Funct UE ROM OT Treatment, Training and Edu: Yes Plan of Care: ADL Retraining, Functional Mobility, Group Exercise/Act as Ind, UE Funct Exercise/Act Treatment Duration: Jan 07, 2023 Frequency: At least 5 of 7 days/Wk (IRF) Estimated Hrs Per Day: 1.[address] IPOC Speech Therapy Treatment Plan: Discontinue ST Treatment Duration: Dec 10, 2022 Frequency: 1 time per week Estimated Hrs Per Day: .25 hour per day Petroleum Engineering Teacher/Case Mgmt Petroleum Engineering Teacher/Case Managemen: Discharge Planning Dietitian/Material Scheduler Dietitian/Material Scheduler to monitor nutritional status and make changes and/or recommendations as needed and work with speech pathology on dietary upgrades as the occur. Physician IPOC Medical Issues being managed closely and that require the 24 hour availability of a physician: Recent recurrent pneumonia with alcoholism and continued abdominal issues including ileus will require close monitoring to decrease chance of decompe nsation. Medical Issues: Bowel/Bladder Function, DVT Prophylaxis, Falls Precautions, Fluid/Electrolyte/Nutrition Balance, Infection Protection, Pain Management, Wound Care Brief Synthesis of Preadmission Screen, Post-Admission Evaluation, and Therapy Evaluations: PT and OT will focus on regaining function and increased strength while gaining stamina with use of assistive devices in order to return back home to independent living. Medical Prognosis: Fair Anticipated Length of Stay: 10 days HARDY CAMPBELL DO Dec 11, 2022 06:37
[2022-12-11 07:11] VITALS: BP 154/86
[2022-12-11 07:14] LABS: ALBUMIN 2.4 GM/DL (3.2-4.5); BILIRUBIN,TOTAL 1.1 MG/DL (0.1-1.0); CALCIUM 7.9 MG/DL (8.5-10.1); CREATININE SERUM 0.57 MG/DL (0.60-1.30); TOTAL PROTEIN 5.3 GM/DL (6.4-8.2)
[2022-12-11] MEDS: RT-ALBUTEROL SULF 2.5 MG/3 ML PRE-MIX VIAL INH SCH ×3 (07:48→21:35)
[2022-12-11] MEDS ORDERED: PSYLLIUM POWDER (METAMUCIL) 5.8 GM PACKET PO SCH (09:00)
--- NOTE | 2022-12-11 09:26 | Progress Note - Surgery ---
GAGE ZARCO 12/11/22 0926: Subjective Date Seen by a Provider: Dec 11, 2022 Time Seen by a Provider: 09:17 Subjective/Events-last exam Our patient is a 62 year old M who was admitted to the hospital for bilateral pneumonia. He states that he lost a great deal of strength after his hospital stay for pneumonia and is now in rehab as a result of his hospitalization. He states that he has experienced an episode of fecal incontinence this morning that was almost entirely liquid. Last night he had a BM that was a mix of solid and liquid, no blood. He states that he feels like his stomach is heavily distended but denies abdominal pain. He denies urinary symptoms (dysuria and f requency), nausea, vomiting, lightheadedness, chest pain, or trouble breathing. He indicates intermittent headache. He has been up and ambulating with assistance. Review of Systems General: Chills (Intermittent); No Night Sweats; Fatigue HEENT: Head Aches (Intermittent) Pulmonary: No Dyspnea, No Cough Cardiovascular: No: Chest Pain, Palpitations, Lt Headedness Gastrointestinal: Constipation; No: Nausea, Vomiting, Abdominal Pain Genitourinary: No Dysuria, No Frequency Neurological: Weakness (Generalized full-body weakness), Numbness (Related to peripheral neuropathy) Objective Exam Vital Signs Date Time Temp Pulse Resp B/P (MAP) Pulse Ox O2 Delivery O2 Flow Rate FiO2 12/11/22 07:48 90 Room Air 12/11/22 07:11 36.6 102 20 154/86 (108) 92 Room Air 12/10/22 21:41 91 Room Air 12/10/22 20:30 92 Room Air 12/10/22 20:30 92 Room Air 12/10/22 20:00 36.9 102 18 151/76 (101) 92 Room Air 12/10/22 16:11 Room Air 12/10/22 12:44 106 12/10/22 11:45 36.5 109 20 116/76 (89) 94 Room Air I & O 12/11/22 07:00 Intake Total 1200 ml Output Total 100 ml Balance 1100 ml Capillary Refill : General Appearance: No Apparent Distress, WD/WN HEENT: PERRL/EOMI; No Scleral Icterus (L), No Scleral Icterus (R) Neck: Full Range of Motion, Normal Inspection, Non Tender, Supple; No Carotid Bruit, No Lymphadenopathy (L), No Lymphadenopathy (R), No Thyromegaly Respiratory: Chest Non Tender, Lungs Clear, No Accessory Muscle Use, No Respiratory Distress Cardiovascular: Regular Rate, Rhythm, No Gallop, No Murmur, Normal Peripheral Pulses Peripheral Pulses: 2+ Radial Pulses (R), 2+ Radial Pulses (L) Gastrointestinal: distended; No guarding, No rebound; tenderness (tenderness to deep palpation in upper right quadrant), hernia (small umbilical hernia), other Extremity: Normal Capillary Refill, No Pedal Edema, Calf Tenderness (Bilateral), Other (Chronic venous stasis changes present in bilateral shins and feet) Neurologic/Psychiatric: Alert, Oriented x3, 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 Norm as Tested Skin: Warm/Dry, Other (Widespread bruising) Lymphatic: No Adenopathy Results Lab Laboratory Tests 12/11/22 06:00: White Blood Count 9.0, Red Blood Count 2.86L, Hemoglobin 10.2L, Hematocrit 30L, Mean Corpuscular Volume 105H, Mean Corpuscular Hemoglobin 36H, Mean Corpuscular Hemoglobin Concent 34, Red Cell Distribution Width 14.2, Platelet Count 125L, Mean Platelet Volume 10.3, Immature Granulocyte % (Auto) 1, Neutrophils (%) (Auto) 78H, Lymphocytes (%) (Auto) 10L, Monocytes (%) (Auto) 8, Eosinophils (%) (Auto) 2, Basophils (%) (Auto) 0, Neutrophils # (Auto) 7.1, Lymphocytes # (Auto) 0.9L, Monocytes # (Auto) 0.8, Eosinophils # (Auto) 0.2, Basophils # (Auto) 0.0, Immature Granulocyte # (Auto) 0.1, Percent Immature Platelet Fraction 3.1 12/11/22 06:35: Sodium Level 135, Potassium Level 5.0, Chloride Level 106, Carbon Dioxide Level 20L, Anion Gap 9, Blood Urea Nitrogen 11, Creatinine 0.57L, Estimat Glomerular Filtration Rate 112, BUN/Creatinine Ratio 19, Glucose Level 103, Calcium Level 7.9L, Corrected Calcium 9.2, Total Bilirubin 1.1H, Aspartate Amino Transf (AST/SGOT) 44H, Alanine Aminotransferase (ALT/SGPT) 18, Alkaline Phosphatase 101, Total Protein 5.3L, Albumin 2.4L Assessment/Plan Assessment/Plan Assessment/Plan Bilateral pneumonia Abdominal distension Constipation S/P port placement day 3 COPD Hypertension Hypercholesterolemia Generalized weakness Alcohol Dependence Continue physical therapy, increase ambulation Continue pain management Continue home meds for COPD Continue stool softeners X-ray for signs of bowel obstruction and remaining lung infiltrates Continue home meds for hypertension and hypercholesterolemia Possible referral to counseling at discharge for alcohol dependence. BOBO GUTIÉRREZ 12/11/22 1233: Subjective Time Seen by a Provider: 11:03 Subjective/Events-last exam Pt seen and examined, no new complaints. He state his abdomen is distended, but not has bad as it has been. He did have a liquid BM; "which was more of an accident". Review of Systems General: Chills (Intermittent); No Night Sweats; Fatigue HEENT: Head Aches (Intermittent) Pulmonary: No Dyspnea, No Cough Cardiovascular: No: Chest Pain, Palpitations Gastrointestinal: Constipation; No: Nausea, Vomiting, Abdominal Pain Genitourinary: No Dysuria, No Frequency Neurological: Weakness (Generalized full-body weakness), Numbness (Related to peripheral neuropathy) Objective Exam General Appearance: No Apparent Distress, Obese HEENT: PERRL/EOMI Respiratory: Chest Non Tender, Lungs Clear, Normal Breath Sounds, No Accessory Muscle Use Cardiovascular: Regular Rate, Rhythm, No Murmur Gastrointestinal: distended; No guarding, No rebound; tenderness (tenderness to deep palpation in upper right quadrant), hernia (small umbilical hernia) Extremity: Normal Capillary Refill, No Pedal Edema, Calf Tenderness (Bilateral), Other (Chronic venous stasis changes present in bilateral shins and feet) Neurologic/Psychiatric: Alert, Oriented x3 Skin: Warm/Dry, Other (Widespread bruising, especially on his arms) Assessment/Plan Assessment/Plan Assessment/Plan Bilateral pneumonia Abdominal distension - possibly due to narcotic bowel Constipation S/P port placement day 3 COPD Hypertension Hypercholesterolemia Generalized weakness Alcohol Dependence Continue physical therapy, increase ambulation Continue pain management Continue home meds for COPD Continue stool softeners X-ray for signs of bowel obstruction and remaining lung infiltrates Continue home meds for hypertension and hypercholesterolemia Possible referral to counseling at discharge for alcohol dependence. Supervisory-Addendum Brief Verification & Attestation Participated in pt care: history, MDM, physical Personally performed: exam, history, MDM, supervision of care Care discussed with: Medical Student Procedures: n/a Verification and Attestation of Medical Student E/M Service A medical student performed and documented this service. I then reviewed and verified all information documented by the medical student and made modifications to such information, when appropriate. I personally performed a physical exam, medical decision making and then discussed any differences between the notes and made revisions as necessary to create one note. Bobo Gutiérrez , 12/11/22 , 12:33 GAGE ZARCO Dec 11, 2022 09:26 BOBO GUTIÉRREZ DO Dec 11, 2022 12:33
--- NOTE | 2022-12-11 09:42 | Diagnostic Imaging Report ---
INDICATION: Abdominal distention. TECHNIQUE/COMPARISON: An abdominal film was obtained at 9:04 AM and is compared to yesterday. FINDINGS: Distention of colonic loops is again noted with a similar appearance to the prior study. There is mild distention of small bowel loops. IMPRESSION: Stable appearance of distended bowel loops compared to the prior study of yesterday. The findings may represent an ileus or early obstruction. Consider continued followup as clinically warranted. Dictated by: Dictated on workstation # [id number]
[2022-12-11] MEDS: METOCLOPRAMIDE INJ 10 MG/2 ML (REGLAN) IVP SCH ×4 (09:51→20:11)
--- NOTE | 2022-12-11 10:02 | Physical Therapy Daily Note ---
PT Daily Note-Current Subjective Pt. initially in bed and c/o he has soiled the bed and needs cleaned up , this BAKELITE MOLDER suggesting pt. sit up on edge of bed then stand to be cleaned then TRF SPT to w/c. Nurse present for assist. see full Rx s below Pain Numeric Pain Scale: 4 Location: Left Location Body Site: Knee Pain Description: Ache Section J - Health Conditions 1. Rarely or not at all 2. Occasionally 3. Frequently 4. Almost constantly 8. Unable to answer Pain Effect on Sleep: 3 Pain Interference with Therapy: 3 Pain Interference w/Day-to-Day: 3 Appearance edema in abdomen conts Mental Status Patient Orientation: Normal For Age Attachments: IV Transfers SCALE: Activities may be completed with or without assistive devices. 8-Tgehloqdyi-qkmifzx completes the activity by him/herself with no assistance from a helper. 5-Set-up or Clean-up Assistance-helper sets up or cleans up; patient completes activity. [place] assists only prior to or following the activity. 4-Supervision or Touching Assistance-helper provides verbal cues and/or touching/steadying and/or contact guard assistance as patient completes activity. Assistance may be provided throughout the activity or intermittently. 3-Partial/Moderate Assistance-helper does LESS THAN HALF the effort. [place] lifts, holds or supports trunk or limbs, but provides less than half the effort. 2-Substantial/Maximal Assistance-helper does MORE THAN HALF the effort. [place] lifts or holds trunk or limbs and provides more than half the effort. 7-Cbhxqlpij-fsadpu does ALL the effort. Patient does none of the effort to complete the activity. Or, the assistance of 2 or more helpers is required for the patient to complete the activity. If activity was not attempted, code reason: 7-Patient Refused. 9-Not Applicable-not attempted and the patient did not perform the activity before the current illness, exacerbation or injury. 10-Not Attempted due to Environmental Limitations-(lack of equipment, weather restraints, etc.). 88-Not Attempted due to Medical Conditions or Safety Concerns. Roll Left & Right (QC): 6 Sit to Lying (QC): 4 Lying to Sitting/Side of Bed(Q: 6 Sit to Stand (QC): 3 Chair/Viq-jg-Jhdks Xfer(QC): 3 Toilet Transfer (QC): 3 pt. seen at 3 different Rx periods today, 1st Rx. pt. in bed rolled to side and sat with cues only, pt. stood with bed raised using FWW x 4 to attempt clean up , pt. then having diarrhea, pt.sat and rested and then with assist mod 2 was SPT to BSC at his bedside. Pt. was left to complete toileting. 2nd Rx: sit to stand from BSC using raised bed height and rail up for pt. to stand with min asst only, stood 1-2 mins for clean up and pants up then BSC was moved and replaced with w/c. pt. sat in w/c and was instructed in moving it about to accomodate the bed and other things in room. pt. was left with all needs met, nursing present, 3rd Rx: pt. needed to TRF back to bed as XR here and testing needs done in bed . w/c was positioned parallel to bed with bed raised slightly and pt. using BUEs to pull on bed rail for SPT with mod asst required , mod asst of 1 for LEs into bed. pt. with nursing and XR for positioning etc. Wheelchair Training Does the Pt Use a Wheelchair?: Yes Type of Wheelchair: Manual Treatments bed mob, sit to stands, SPTs,TRFs, positioning, as told above Assessment Current Status: Good Progress pt. has negative tone and is resistive at times to attempt mobility himself but with instruction and encouragement pt. surprised himself PT Short Term Goals Short Term Goals Time Frame: Dec 17, 2022 Sit to lyin Lying to sitting on side of be: 4 Sit to stand: 3 (mod assist) Chair/eyb-it-sacwg transfer: 3 (mod assist) Walk 10 feet: 3 PT Longterm Goals Longterm Goals PT Longterm Goals Time Frame: Dec 24, 2022 Roll Left & Right (QC): 6 Sit to Lying (QC): 6 Lying-Sitting on Side/Bed(QC): 6 Sit to Stand (QC): 4 (CGA) Chair/Gxo-zd-Jtuni Xfer(QC): 4 (CGA) Toilet Transfer (QC): 4 (CGA) Car Transfer (QC): 3 (Diana) Does the Patient Walk: No and Walking Goal IS indicated Walk 10 feet (QC): 4 (CGA) Walk 50ft with 2 Turns (QC): 4 (CGA) Walk 150 ft (QC): 88 Walking 10ft on Uneven Surface: 4 (CA) 1 Step (curb) (QC): 88 4 Steps (QC): 88 12 Steps (QC): 88 Picking up an Object (QC): 4 (CGA using a damage adjuster) Wheel 50 feet with 2 turns (QC: 4 (SBA) Wheel 150 feet: 4 (SBA) PT Plan Treatment/Plan Treatment Plan: Continue Plan of Care Treatment Plan: Bed Mobility, Education, Functional Activity Francesca, Functional Strength, Group Therapy, Gait, Safety, Therapeutic Exercise, Transfers Treatment Duration: Dec 24, 2022 Frequency: At least 5 of 7 days/Wk (IRF) Estimated Hrs Per Day: 1.5 hours per day Patient and/or Family Agrees t: Yes Safety Risks/Education Patient Education: Transfer Techniques, Correct Positioning, W/C Management, Sa fety Issues Teaching Recipient: Patient Teaching Methods: Demonstration, Discussion Response to Teaching: Verbalize Understanding, Return Demonstration, Reinforcement Needed Time Time In: 800 (835, 900) Time Out: 820 DATE: Dec 11, 2022 (out 845 and 910) Total Billed Treatment Time: 40 (3 Rx s at 40 m total) Total Billed Treatment 1x3, FA 40m KYMBERLY SANCHEZ BAKELITE MOLDER Dec 11, 2022 10:02
[2022-12-11] MEDS: ATENOLOL 25 MG (TENORMIN) TAB PO SCH (10:13)
[2022-12-11] MEDS: FOLIC ACID 1 MG TAB PO SCH (10:13)
[2022-12-11] MEDS: MAGNESIUM OXIDE (MAG-OX)400 MG TAB PO SCH (10:13)
[2022-12-11] MEDS: DOCUSATE SODIUM 100 MG (COLACE) CAP PO SCH ×2 (10:16→20:13)
[2022-12-11] MEDS: SENNOSIDES 8.6 MG (SENOKOT) TAB PO SCH ×2 (10:16→20:13)
[2022-12-11] MEDS: polyethylene glycoL POWDER 17 GM (MIRALAX) PACK PO SCH ×2 (10:16→20:15)
[2022-12-11] MEDS: RT-IPRATROPIUM (ATROVENT) 0.5MG/2.5ML AMP IH SCH (15:33)
[2022-12-11] MEDS: ENOXAPARIN 40 MG/0.4 ML (LOVENOX) SYR SC SCH (17:22)
[2022-12-11] MEDS: MICONAZOLE 2% POWDER (DESENEX AF) 90 GM TOP SCH (20:13)
[2022-12-11 21:39] VITALS: BP 154/86
[2022-12-11] MEDS: fentaNYL INJ 100 MCG/2 ML AMP IVP PRN (21:54)
[2022-12-11] MEDS ORDERED: RT-ALBUTEROL SULF 2.5 MG/3 ML PRE-MIX VIAL INH PRN (23:00)
[2022-12-12] MEDS: MEROPENEM 500 MG in NS (IVPB) 100 ML IV SCH ×2 (02:23→08:29)
[2022-12-12] MEDS: PANTOPRAZOLE 40 MG (PROTONIX) TAB PO SCH (06:18)
[2022-12-12] MEDS: DICYCLOMINE 10 MG (BENTYL) CAP PO SCH ×3 (06:18→17:48)
[2022-12-12] MEDS: MULTIVIT W/MINERALS TAB (THERAGRAN M) PO SCH (06:18)
[2022-12-12] MEDS: KCL 10 MEQ TAB (MICRO K) PO SCH (06:18)
[2022-12-12] MEDS ORDERED: RT-ALBUTEROL SULF 2.5 MG/3 ML PRE-MIX VIAL INH SCH (07:00)
[2022-12-12 07:16] VITALS: BP 129/83
[2022-12-12] MEDS: RT-ALBUTEROL SULF 2.5 MG/3 ML PRE-MIX VIAL INH SCH ×2 (07:40→20:22)
--- NOTE | 2022-12-12 07:42 | PM&R Progress Note ---
Subjective HPI/CC On Admission Date Seen by Provider: Dec 12, 2022 Time Seen by Provider: 12:00 Subjective/Events-last exam 12/12/2022: Had a long conversation about alcoholism and complications Ileus still remains Loose stools noted Discontinue the fentanyl IV since narcotics are causing the ileus to become worse Patient may need nursing facility I did update him on this fact because he just thinks that he will just remain in a wheelchair but he cannot possibly take care of his ADLs in the level he is at right now 12/11/2022: Ileus remains Abdomen is taut Patient really cannot walk well Overall very declined Will continue antibiotics for 1 more day Supportive care will continue Review of Systems General: Fatigue, Malaise Gastrointestinal: Abdominal Pain Objective Exam Vital Signs Vital Signs Date Time Temp Pulse Resp B/P (MAP) Pulse Ox O2 Delivery O2 Flow Rate FiO2 12/12/22 07:16 37.0 87 18 129/83 (98) 92 Room Air 12/11/22 21:39 21 12/11/22 21:35 0.00 Capillary Refill : General Appearance: No Apparent Distress, WD/WN, Anxious, Chronically ill HEENT: PERRL/EOMI, Normal ENT Inspection, Pharynx Normal Neck: Full Range of Motion, Normal Inspection, Non Tender, Supple, Carotid Bruit Respiratory: Chest Non Tender, Lungs Clear, No Accessory Muscle Use, No Respiratory Distress, Decreased Breath Sounds Cardiovascular: Regular Rate, Rhythm, No Edema, No Gallop, No JVD, No Murmur, Normal Peripheral Pulses Gastrointestinal: Normal Bowel Sounds, No Organomegaly, No Pulsatile Mass, Non Tender, Soft Back: Normal Inspection, No CVA Tenderness, No Vertebral Tenderness, Decreased Range of Motion (left) Extremity: Normal Capillary Refill, Normal Inspection, Normal Range of Motion, Non Tender, No Calf Tenderness, No Pedal Edema Neurologic/Psychiatric: Alert, Oriented x3, 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 FIM Transfers Therapy Code Descriptions/Definitions Functional [place] Measure: 0=Not Assessed/NA 4=Minimal Assistance 1=Total Assistance 5=Supervision or Setup 2=Maximal Assistance 6=Modified [place] 3=Moderate Assistance 7=Complete IndependenceSCALE: Activities may be completed with or without assistive devices. 6-Vnlsmbizmk-rpmajjv completes the activity by him/herself with no assistance from a helper. 5-Set-up or Clean-up Assistance-helper sets up or cleans up; patient completes activity. [place] assists only prior to or following the activity. 4-Supervision or Touching Assistance-helper provides verbal cues and/or touching/steadying and/or contact guard assistance as patient completes act ivity. Assistance may be provided throughout the activity or intermittently. 3-Partial/Moderate Assistance-helper does LESS THAN HALF the effort. [place] lifts, holds or supports trunk or limbs, but provides less than half the effort. 2-Substantial/Maximal Assistance-helper does MORE THAN HALF the effort. [place] lifts or holds trunk or limbs and provides more than half the effort. 7-Nbxnatyqs-ojbdug does ALL the effort. Patient does none of the effort to complete the activity. Or, the assistance of 2 or more helpers is required for the patient to complete the activity. If activity was not attempted, code reason: 7-Patient Refused. 9-Not Applicable-not attempted and the patient did not perform the activity before the current illness, exacerbation or injury. 10-Not Attempted due to Environmental Limitations-(lack of equipment, weather restraints, etc.). 88-Not Attempted due to Medical Conditions or Safety Concerns. Roll Left to Right (QC): 6 Sit to Lying (QC): 4 Sit to Stand (QC): 3 Chair/Rrr-dc-Vorlc Xfer(QC): 3 Car Transfer (QC): 2 Gait Training Walk 10 feet (QC): 88 Walk 50 ft with 2 Turns(QC): 88 Walk 150 ft (QC): 88 Walking 10ft/uneven surface-QC: 88 Wheelchair Training Does the Pt Use a Wheelchair?: Yes Wheel 50 ft with 2 turns (QC): 1 Wheel 150 ft (QC): 1 Type of Wheelchair: Manual Stair Training 1 Step (curb) (QC): 88 4 Steps (QC): 88 12 Steps (QC): 88 Balance Picking up an Object (QC): 88 ADL-Treatment Eating (QC): 5 Oral Hygiene (QC): 4 (SBA) Shower/Bathe Self (QC): 1 (2 person assist required in stand for washing/drying buttocks.) Upper Body Dressing (QC): 3 (mod A with overhead shirt.) Lower Body Dressing (QC): 1 (2 person assist required. Assist all parts.) On/Off Footwear (QC): 1 (total assist) Toileting Hygiene (QC): 1 (2 person assist required for pant hike. Assist all parts.) Assessment/Plan Assessment and Plan Assess & Plan/Chief Complaint Assessment: Debility Pneumonia failed 4 outpatient treatments from Urgent Care in past 6 weeks- completed meropenem on 12/12/2022 Ileus Elevated lactic acidosis not due to sepsis but due to alcoholic liver disease Remote hx of left-sided rib fractures and splenic laceration Prior CVA with left-sided weakness Multiple falls at home chronic Alcoholism Anxiety Tachycardia Gout COPD Former smoker Edema positional type Poor protein status causing third-spacing Neuropathy Plan: Pain control Monitor closely Lovenox Ambulate 12/11/2022: Hep-Lock IV fluid Complete antibiotics 12/12/2022: Ileus management DC fentanyl Minimize oxycodone (1) Debility Status: Acute (2) Left lower lobe pneumonia Status: Acute (3) Sacral decubitus ulcer Status: Acute (4) Alcohol dependence Status: Acute (5) Colon distention (6) Left-sided weakness Status: Acute (7) Hypertension Status: Chronic (8) Neuropathy Status: Chronic (9) Anxiety Status: Chronic (10) Gout (11) COPD (chronic obstructive pulmonary disease) HARDY CAMPBELL DO Dec 12, 2022 07:42
[2022-12-12] MEDS: MAGNESIUM OXIDE (MAG-OX)400 MG TAB PO SCH (08:28)
[2022-12-12] MEDS: METOCLOPRAMIDE INJ 10 MG/2 ML (REGLAN) IVP SCH ×4 (08:28→20:24)
[2022-12-12] MEDS: DOCUSATE SODIUM 100 MG (COLACE) CAP PO SCH ×2 (08:28→20:26)
[2022-12-12] MEDS: ATENOLOL 25 MG (TENORMIN) TAB PO SCH (08:28)
[2022-12-12] MEDS: FOLIC ACID 1 MG TAB PO SCH (08:28)
[2022-12-12] MEDS: MICONAZOLE 2% POWDER (DESENEX AF) 90 GM TOP SCH ×2 (08:29→20:28)
[2022-12-12] MEDS: polyethylene glycoL POWDER 17 GM (MIRALAX) PACK PO SCH ×2 (08:29→20:26)
[2022-12-12] MEDS: SENNOSIDES 8.6 MG (SENOKOT) TAB PO SCH ×2 (08:44→20:27)
--- NOTE | 2022-12-12 09:20 | Progress Note - Surgery ---
GAGE ZARCO 12/12/2220: Subjective Date Seen by a Provider: Dec 12, 2022 Time Seen by a Provider: 09:10 Subjective/Events-last exam Patient is a 62 yo M s/p port placement day 4. On 12/06 admitted for LLL pneumonia. Today he indicates abdominal pain in RUQ and LUQ, 6/10, fairly constant pressure. Feels as distended as he was yesterday. He states that he has begun ambulating with assistance from PT, but only a few steps at a time. He is consistently having 2 BM a day, generally using a suppository in the evening. He denies nausea, vomiting, chest pain, palpitations, cough, and headache. He indicates tingling and numbness in his fingers and toes, intermittent SOB. Review of Systems General: No Chills, No Night Sweats; Fatigue HEENT: No Head Aches, No Visual Changes Pulmonary: Dyspnea (Intermittent SOB); No Cough Cardiovascular: No: Chest Pain, Palpitations, Lt Headedness Gastrointestinal: Abdominal Pain, Diarrhea (Every stool is mostly liquid for the past two days, goes twice a day, generally uses a suppository for one of these two bowel movements); No: Nausea, Vomiting Genitourinary: No Dysuria, No Frequency Neurological: Weakness, Numbness; No: Confusion Focused Exam Sepsis Stage: Ruled Out (Patient is not tachypneic, tachycardic, temperature is within normal range, as is white count.) Reason for ruling out sepsis: Patient does not meet SIRS criteria for sepsis diagnosis Objective Exam Vital Signs Date Time Temp Pulse Resp B/P (MAP) Pulse Ox O2 Delivery O2 Flow Rate FiO2 12/12/22 07:16 37.0 87 18 129/83 (98) 92 Room Air 12/11/22 21:39 36.8 88 92 21 12/11/22 21:35 92 Room Air 0.00 12/11/22 20:00 Room Air 12/11/22 19:05 36.8 95 16 94 Room Air 12/11/22 15:33 90 Room Air I & O 12/12/22 07:00 Intake Total 990 ml Output Total 750 ml Balance 240 ml Capillary Refill : General Appearance: No Apparent Distress, WD/WN HEENT: PERRL/EOMI, Moist Mucous Membranes; No Scleral Icterus (L), No Scleral Icterus (R) Neck: Non Tender, Supple; No Lymphadenopathy (L), No Lymphadenopathy (R), No Thyromegaly Respiratory: Chest Non Tender, No Accessory Muscle Use, No Respiratory Distress; No Crackles, No Wheezing Cardiovascular: Regular Rate, Rhythm, No Gallop, No Murmur, Normal Peripheral Pulses Peripheral Pulses: 2+ Radial Pulses (R), 2+ Radial Pulses (L) Gastrointestinal: distended; No guarding, No rebound; tenderness (tenderness to deep palpation in upper right quadrant), hernia (small umbilical hernia) Extremity: Normal Capillary Refill, Non Tender, Calf Tenderness; No Pedal Edema; Other (Chronic venous stasis changes in lower legs bilaterally) Neurologic/Psychiatric: Alert, Oriented x3, cash applications coordinator II-XII Norm as Tested, Motor Weakness (left sided weakness) Skin: Warm/Dry, Ecchymosis (On arms and legs), Other (Chronic venous stasis changes in lower legs bilaterally) Lymphatic: No Axilla Node Tender (L), No Axilla Node Tender (R) Results Meds See medications list Radiology Date of Exam:12/11/22 ABDOMEN, FLAT & UPRIGHT/DECUB INDICATION: Abdominal distention. TECHNIQUE/COMPARISON: An abdominal film was obtained at 9:04 AM and is compared to yesterday. FINDINGS: Distention of colonic loops is again noted with a similar appearance to the prior study. There is mild distention of small bowel loops. IMPRESSION: Stable appearance of distended bowel loops compared to the prior study of yesterday. The findings may represent an ileus or early obstruction. Consider continued followup as clinically warranted. Dictated by: Dictated on workstation # [id number] Dict: 12/11/22 0934 Trans: 12/11/22 1049 [id number] Interpreted by: AMADOR CANO MD Electronically signed by: AMADOR CANO MD 12/11/22 1049 Assessment/Plan Assessment/Plan Assessment/Plan Bilateral pneumonia Abdominal distension - possibly due to narcotic bowel Constipation - resolved S/P port placement day 4 COPD Hypertension Hypercholesterolemia Generalized weakness Alcohol Dependence Continue physical therapy, increase ambulation Continue pain management Continue home meds for COPD Continue stool softeners X-ray showed stable appearance of distended bowel loops in relation to the study the day before. Radiology indicates that the findings may represent an ileus or early obstruction. Continue home meds for hypertension and hypercholesterolemia Possible referral to counseling at discharge for alcohol dependence. BOBO GUTIÉRREZ DO 12/12/22 1334: Subjective Time Seen by a Provider: 12:56 Subjective/Events-last exam Pt seen and examined, states he is better now but was having some pain this am. He did have 2 liquid BMs, but still feels distended. Review of Systems General: Fatigue Pulmonary: Dyspnea (Intermittent SOB); No Cough Cardiovascular: No: Chest Pain, Palpitations Gastrointestinal: Abdominal Pain, Diarrhea (Every stool is mostly liquid for the past two days, goes twice a day, generally uses a suppository for one of these two bowel movements); No: Nausea, Vomiting Neurological: Weakness, Numbness Objective Exam General Appearance: No Apparent Distress, Obese HEENT: Moist Mucous Membranes Respiratory: Chest Non Tender, Lungs Clear, No Accessory Muscle Use, No Respiratory Distress Cardiovascular: Regular Rate, Rhythm, No Murmur Gastrointestinal: distended; No guarding, No rebound; tenderness (tenderness to deep palpation in upper right quadrant), hernia (small umbilical hernia) Extremity: Calf Tenderness, Other (Chronic venous stasis changes in lower legs bilaterally) Neurologic/Psychiatric: Alert, Oriented x3, Motor Weakness (left sided weakness) Skin: Warm/Dry, Ecchymosis (On arms and legs) Assessment/Plan Assessment/Plan Assessment/Plan [place] - possibly due to narcotic bowel Bilateral pneumonia S/P port placement day 4 COPD Hypertension Hypercholesterolemia Generalized weakness Alcohol Dependence Continue physical therapy, increase ambulation Continue pain management Continue home meds for COPD Continue stool softeners I reviewed the X-ray myself and his large intestine is very distended, it looks more like an [place]'s. His abdomen is also very distended, firm and almost tympanitic. My concern is this may not get better and he may need removal of non-functioning large intestine. Hopefully, it will get better and we can wait a little bit longer to see if it resolves on its own. Supervisory-Addendum Brief Verification & Attestation Participated in pt care: history, MDM, physical Personally performed: exam, history, MDM, supervision of care Care discussed with: Medical Student Procedures: n/a Verification and Attestation of Medical Student E/M Service A medical student performed and documented this service. I then reviewed and verified all information documented by the medical student and made modifications to such information, when appropriate. I personally performed a physical exam, medical decision making and then discussed any differences between the notes and made revisions as necessary to create one note. Bobo Gutiérrez , 12/12/22 , 13:34 GAGE ZARCO Dec 12, 2022 09:20 BOBO GUTIÉRREZ DO Dec 12, 2022 13:34
[2022-12-12] MEDS: fentaNYL INJ 100 MCG/2 ML AMP IVP PRN (10:52)
[2022-12-12] MEDS: BISACODYL 10 MG SUPP (DULCOLAX) PR PRN (11:38)
[2022-12-12] MEDS: ENOXAPARIN 40 MG/0.4 ML (LOVENOX) SYR SC SCH (17:49)
[2022-12-12 19:42] VITALS: BP 127/63
[2022-12-13] MEDS: DICYCLOMINE 10 MG (BENTYL) CAP PO SCH ×4 (00:38→17:40)
--- NOTE | 2022-12-13 05:14 | PM&R Progress Note ---
Subjective HPI/CC On Admission Date Seen by Provider: Dec 13, 2022 Time Seen by Provider: 08:30 Subjective/Events-last exam 12/13/2022: Doing a bit better Abdominal distention is still an issue Every time he is hospitalized he has the ileus issue Minimizing narcotics which drives the ileus 12/12/2022: Had a long conversation about alcoholism and complications Ileus still remains Loose stools noted Discontinue the fentanyl IV since narcotics are causing the ileus to become worse Patient may need nursing facility I did update him on this fact because he just thinks that he will just remain in a wheelchair but he cannot possibly take care of his ADLs in the level he is at right now 12/11/2022: Ileus remains Abdomen is taut Patient really cannot walk well Overall very declined Will continue antibiotics for 1 more day Supportive care will continue Review of Systems General: Fatigue, Malaise Objective Exam Vital Signs Vital Signs Date Time Temp Pulse Resp B/P (MAP) Pulse Ox O2 Delivery O2 Flow Rate FiO2 12/13/22 21:01 95 Room Air 12/13/22 19:40 36.7 103 16 125/75 (92) 12/11/22 21:39 21 12/11/22 21:35 0.00 Capillary Refill : General Appearance: No Apparent Distress, Obese HEENT: Moist Mucous Membranes Neck: Full Range of Motion, Normal Inspection, Non Tender, Supple, Carotid Bruit Respiratory: Chest Non Tender, Lungs Clear, No Accessory Muscle Use, No Respiratory Distress Cardiovascular: Regular Rate, Rhythm, No Murmur Gastrointestinal: Normal Bowel Sounds, No Organomegaly, No Pulsatile Mass, Distended, Tenderness Back: Normal Inspection, No CVA Tenderness, No Vertebral Tenderness, Decreased Range of Motion (left) Extremity: Calf Tenderness, Other (Chronic venous stasis changes in lower legs bilaterally) Neurologic/Psychiatric: Alert, Oriented x3, Motor Weakness (left sided weakness) Skin: Warm/Dry, Ecchymosis (On arms and legs) Lymphatic: No Adenopathy Results/Procedures Lab Laboratory Tests 12/13/22 05:05 Patient resulted labs reviewed. FIM Transfers Therapy Code Descriptions/Definitions Functional [place] Measure: 0=Not Assessed/NA 4=Minimal Assistance 1=Total Assistance 5=Supervision or Setup 2=Maximal Assistance 6=Modified [place] 3=Moderate Assistance 7=Complete IndependenceSCALE: Activities may be completed with or without assistive devices. 0-Nwzxjddhct-urrzjmf completes the activity by him/herself with no assistance from a helper. 5-Set-up or Clean-up Assistance-helper sets up or cleans up; patient completes activity. [place] assists only prior to or following the activity. 4-Supervision or Touching Assistance-helper provides verbal cues and/or touching/steadying and/or contact guard assistance as patient completes ac tivity. Assistance may be provided throughout the activity or intermittently. 3-Partial/Moderate Assistance-helper does LESS THAN HALF the effort. [place] lifts, holds or supports trunk or limbs, but provides less than half the effort. 2-Substantial/Maximal Assistance-helper does MORE THAN HALF the effort. [place] lifts or holds trunk or limbs and provides more than half the effort. 9-Abrsfonvk-wzuwow does ALL the effort. Patient does none of the effort to complete the activity. Or, the assistance of 2 or more helpers is required for the patient to complete the activity. If activity was not attempted, code reason: 7-Patient Refused. 9-Not Applicable-not attempted and the patient did not perform the activity before the current illness, exacerbation or injury. 10-Not Attempted due to Environmental Limitations-(lack of equipment, weather restraints, etc.). 88-Not Attempted due to Medical Conditions or Safety Concerns. Roll Left to Right (QC): 6 Sit to Lying (QC): 4 Sit to Stand (QC): 3 Chair/Mka-yb-Tvhce Xfer(QC): 3 Car Transfer (QC): 2 Gait Training Walk 10 feet (QC): 88 Walk 50 ft with 2 Turns(QC): 88 Walk 150 ft (QC): 88 Walking 10ft/uneven surface-QC: 88 Wheelchair Training Does the Pt Use a Wheelchair?: Yes Wheel 50 ft with 2 turns (QC): 1 Wheel 150 ft (QC): 1 Type of Wheelchair: Manual Stair Training 1 Step (curb) (QC): 88 4 Steps (QC): 88 12 Steps (QC): 88 Balance Picking up an Object (QC): 88 ADL-Treatment Eating (QC): 5 Oral Hygiene (QC): 4 (SBA) Shower/Bathe Self (QC): 1 (2 person assist required in stand for washing/drying buttocks.) Upper Body Dressing (QC): 3 (mod A with overhead shirt.) Lower Body Dressing (QC): 1 (2 person assist required. Assist all parts.) On/Off Footwear (QC): 1 (total assist) Toileting Hygiene (QC): 1 (2 person assist required for pant hike. Assist all parts.) Assessment/Plan Assessment and Plan Assess & Plan/Chief Complaint Assessment: Debility Pneumonia failed 4 outpatient treatments from Urgent Care in past 6 weeks- completed meropenem on 12/12/2022 Ileus Elevated lactic acidosis not due to sepsis but due to alcoholic liver disease Remote hx of left-sided rib fractures and splenic laceration Prior CVA with left-sided weakness Multiple falls at home chronic Alcoholism Anxiety Tachycardia Gout COPD Former smoker Edema positional type Poor protein status causing third-spacing Neuropathy Plan: Pain control Monitor closely Lovenox Ambulate 12/11/2022: Hep-Lock IV fluid Complete antibiotics 12/12/2022: Ileus management DC fentanyl Minimize oxycodone 12/13/2022: Minimize narcs (1) Debility Status: Acute (2) Left lower lobe pneumonia Status: Acute (3) Sacral decubitus ulcer Status: Acute (4) Alcohol dependence Status: Acute (5) Colon distention (6) Left-sided weakness Status: Acute (7) Hypertension Status: Chronic (8) Neuropathy Status: Chronic (9) Anxiety Status: Chronic (10) Gout (11) COPD (chronic obstructive pulmonary disease) HARDY CAMPBELL DO Dec 13, 2022 05:14
[2022-12-13 05:27] LABS: BASOPHILS % (AUTO) 0 % (0-10); EOSINOPHILS # (AUTO) 0.2 10^3/uL (0.0-0.3); EOSINOPHILS % (AUTO) 2 % (0-10); HEMATOCRIT 31 % (40-54); HEMOGLOBIN 10.6 g/dL (13.3-17.7); LYMPHOCYTES # (AUTO) 1.1 10^3/uL (1.0-4.0); LYMPHOCYTES % (AUTO) 12 % (12-44); MEAN CORPUSCULAR HEMOGLOBIN 35 pg (25-34); MEAN CORPUSCULAR HGB CONC 34 g/dL (32-36); MEAN CORPUSCULAR VOLUME 102 fL (80-99); MEAN PLATELET VOLUME 9.4 fL (9.0-12.2); MONOCYTES # (AUTO) 0.8 10^3/uL (0.0-1.0); MONOCYTES % (AUTO) 9 % (0-12); NEUTROPHILS # (AUTO) 6.9 10^3/uL (1.8-7.8); NEUTROPHILS % (AUTO) 76 % (42-75); PLATELET COUNT 209 10^3/uL (130-400); WHITE BLOOD COUNT 9.1 10^3/uL (4.3-11.0)
[2022-12-13 05:48] LABS: ALBUMIN 2.5 GM/DL (3.2-4.5); BILIRUBIN,TOTAL 1.2 MG/DL (0.1-1.0); CALCIUM 8.1 MG/DL (8.5-10.1); CREATININE SERUM 0.57 MG/DL (0.60-1.30); POTASSIUM 3.3 MMOL/L (3.6-5.0); TOTAL PROTEIN 5.2 GM/DL (6.4-8.2)
[2022-12-13] MEDS: MULTIVIT W/MINERALS TAB (THERAGRAN M) PO SCH (06:36)
[2022-12-13] MEDS: PANTOPRAZOLE 40 MG (PROTONIX) TAB PO SCH (06:36)
[2022-12-13] MEDS: KCL 10 MEQ TAB (MICRO K) PO SCH ×4 (06:36→17:39)
[2022-12-13 07:40] VITALS: BP 144/78
[2022-12-13] MEDS: METOCLOPRAMIDE INJ 10 MG/2 ML (REGLAN) IVP SCH ×4 (08:29→20:49)
[2022-12-13] MEDS: MAGNESIUM OXIDE (MAG-OX)400 MG TAB PO SCH (08:29)
[2022-12-13] MEDS: FOLIC ACID 1 MG TAB PO SCH (08:29)
[2022-12-13] MEDS: ATENOLOL 25 MG (TENORMIN) TAB PO SCH (08:29)
[2022-12-13] MEDS: DOCUSATE SODIUM 100 MG (COLACE) CAP PO SCH ×2 (08:31→20:56)
[2022-12-13] MEDS: SENNOSIDES 8.6 MG (SENOKOT) TAB PO SCH ×2 (08:37→20:56)
[2022-12-13] MEDS: polyethylene glycoL POWDER 17 GM (MIRALAX) PACK PO SCH ×2 (08:37→20:56)
[2022-12-13] MEDS: RT-ALBUTEROL SULF 2.5 MG/3 ML PRE-MIX VIAL INH SCH ×3 (09:48→21:01)
--- NOTE | 2022-12-13 10:00 | Occupational Ther Daily Note ---
OT Current Status-Daily Note Subjective Pt alert, lying in bed. Pt very anxious and negative about medical state and his overall function. Pt agrees to therapy. Mental Status/Objective Patient Orientation: Person, Place, Time, Situation Attachments: IV ADL-Treatment Pt agrees to shower. HOB elevated and min A for supine to EOB. Pt highly anxious about standing, requires 2 person assist for safety, assistance is mod A for SPT from EOB to BSC. Pt incontinent of bowel. Pt sitting on BSC, assist to stand and 2nd person assist to cleanse. 2nd person switched BSC for rolling shower chair. Pt completed shower sitting on rolling shower chair with cutout and set up for washing then assist to dry buttocks and feet. Due to bowel incontinence and decreased mobility, pt continues to wear hospital gown. After setup, pt able to complete oral care. Max A for footwear. Pt demonstrates ability for set up with upper body dressing. After session, pt sitting in recliner with call light/phone in reach. All needs met in room. Therapy Code Descriptions/Definitions Functional [place] Measure: 0=Not Assessed/NA 4=Minimal Assistance 1=Total Assistance 5=Supervision or Setup 2=Maximal Assistance 6=Modified [place] 3=Moderate Assistance 7=Complete IndependenceSCALE: Activities may be completed with or without assistive devices. 6-Zfhejycnaq-neixrii completes the activity by him/herself with no assistance from a helper. 5-Set-up or Clean-up Assistance-helper sets up or cleans up; patient completes activity. [place] assists only prior to or following the activity. 4-Supervision or Touching Assistance-helper provides verbal cues and/or touching/steadying and/or contact guard assistance as patient completes activity. Assistance may be provided throughout the activity or intermittently. 3-Partial/Moderate Assistance-helper does LESS THAN HALF the effort. [place] lifts, holds or supports trunk or limbs, but provides less than half the effort. 2-Substantial/Maximal Assistance-helper does MORE THAN HALF the effort. [place] lifts or holds trunk or limbs and provides more than half the effort. 7-Vhqzbnsai-hhsobd does ALL the effort. Patient does none of the effort to complete the activity. Or, the assistance of 2 or more helpers is required for the patient to complete the activity. If activity was not attempted, code reason: 7-Patient Refused. 9-Not Applicable-not attempted and the patient did not perform the activity before the current illness, exacerbation or injury. 10-Not Attempted due to Environmental Limitations-(lack of equipment, weather restraints, etc.). 88-Not Attempted due to Medical Conditions or Safety Concerns. Oral Hygiene (QC): 5 Shower/Bathe Self (QC): 3 Upper Body Dressing (QC): 5 On/Off Footwear: 2 Toileting Hygiene (QC): 1 Toilet Transfer (QC): 1 OT Short Term Goals Short Term Goals Time Frame: Dec 24, 2022 Toileting hygiene: 4 Shower/bathe self: 4 Upper body dressin Lower body dressin Putting on/taking off footwear: 3 OT Long-Term Goals Long-Term Goals Time Frame: Jan 07, 2023 Acute change in mental status: 0 Inattention: 0 Disorganized thinkin Altered level of consciousness: 0 Eating (QC): 6 Oral Hygiene (QC): 6 Toileting Hygiene (QC): 6 Shower/Bathe Self (QC): 6 Upper Body Dressing (QC): 6 Lower Body Dressing (QC): 6 On/Off Footwear (QC): 6 Additional Goals: 1-Demonstrate ADL Tasks, 2-Verbalize Understanding, 3-Improve Strength/Francesca 1=Demonstrate adherence to instructed precautions during ADL tasks. 2=Patient will verbalize/demonstrate understanding of assistive devices/modifications for ADL. 3=Patient will improve strength/tolerance for activity to enable patient to pe rform ADL's. OT Education/Plan Problem List/Assessment Assessment: Decreased Activ Tolerance, Decreased Safety Aware, Dependent Transfers, Impaired Bed Mobility, Impaired Coordination, Impaired Funct Balance, Impaired Self-Care Skills, Restricted Funct UE ROM Discharge Recommendations Plan/Recommendations: Continue POC Treatment Plan/Plan of Care Patient would benefit from OT for education, treatment and training to promote independence in ADL's, mobility, safety and/or upper extremity function for ADL's. Plan of Care: ADL Retraining, Functional Mobility, Group Exercise/Act as Ind, UE Funct Exercise/Act Treatment Duration: Jan 07, 2023 Frequency: At least 5 of 7 days/Wk (IRF) Estimated Hrs Per Day: 1.5 hours per day Agreement: Yes Rehab Potential: Guarded Time Start Time: 08:30 Stop Time: 10:00 DATE: Dec 13, 2022 Total Time Billed (hr/min): 90 Billed Treatment Time 1 visit-ADL 6 (90 min) SUNIL DAMON Dec 13, 2022 09:59
[2022-12-13] MEDS: MICONAZOLE 2% POWDER (DESENEX AF) 90 GM TOP SCH ×2 (10:20→20:57)
--- NOTE | 2022-12-13 11:56 | Physical Therapy Daily Note ---
PT Daily Note-Current Subjective Patient sitting in chair upon PT arrival, agreeable to treatment. Expresses that he is very scared of falling. Also reports pain at 5/10 in abdomen and displays significantly distended abdomen. Nurse notified. Pain Section J - Health Conditions 1. Rarely or not at all 2. Occasionally 3. Frequently 4. Almost constantly 8. Unable to answer Pain Effect on Sleep: 3 Pain Interference with Therapy: 3 Pain Interference w/Day-to-Day: 3 Mental Status Patient Orientation: Person, Place, Time, Situation Transfers SCALE: Activities may be completed with or without assistive devices. 3-Pdyydssgqt-vmzkpsq completes the activity by him/herself with no assistance from a helper. 5-Set-up or Clean-up Assistance-helper sets up or cleans up; patient completes activity. [place] assists only prior to or following the activity. 4-Supervision or Touching Assistance-helper provides verbal cues and/or touching/steadying and/or contact guard assistance as patient completes activity. Assistance may be provided throughout the activity or intermittently. 3-Partial/Moderate Assistance-helper does LESS THAN HALF the effort. [place] lifts, holds or supports trunk or limbs, but provides less than half the effort. 2-Substantial/Maximal Assistance-helper does MORE THAN HALF the effort. [place] lifts or holds trunk or limbs and provides more than half the effort. 9-Aahmdcpai-elvgcv does ALL the effort. Patient does none of the effort to comp lete the activity. Or, the assistance of 2 or more helpers is required for the patient to complete the activity. If activity was not attempted, code reason: 7-Patient Refused. 9-Not Applicable-not attempted and the patient did not perform the activity before the current illness, exacerbation or injury. 10-Not Attempted due to Environmental Limitations-(lack of equipment, weather restraints, etc.). 88-Not Attempted due to Medical Conditions or Safety Concerns. Sit to Stand (QC): 3 Chair/Ggi-mb-Fxhdo Xfer(QC): 3 Toilet Transfer (QC): 2 Gait Training Does the Patient Walk?: No and Walking Goal IS indicated Wheelchair Training Does the Pt Use a Wheelchair?: Yes Wheel 50 ft with 2 turns (QC): 4 Type of Wheelchair: Manual 80 feet with min A and frequent verbal cues Exercises Seated Therapy Exercises: Ankle pumps, Long arc quads, Hip flexion, Hamstring Curls, Hip abd/add Seated Reps: 20 Assessment Current Status: Fair Progress Patient tolerate treatment fair. Reports frequent diarrhea since yesterday and is concerned with leaving the room. Patient performs all transfers with mod A, except toilet, requires max A. Patient performs LE therapeutic exercise as listed above while sitting in recliner. Patient requires mod A for stand and pivot with FWW to the w/c. Patient wheeled into the BR and requires max A for transfer to the toilet. Patient requires total A for cleaning as his left UE cannot safely assist with support or cleaning. Patient propels w/c with right UE and LEs 50 feet, 50 feet to the gym with min A. Patient performs standing in the parallel bars x 3 for 45 seconds, 45 seconds and 60 seconds. Patient propels w/c 80 feet with min A and verbal cues. Patient performs stand pivot transfer to the chair with FWW, with mod A. Patient in chair post treatment with all needs met, nursing notified and call light in hand. PT Short Term Goals Short Term Goals Time Frame: Dec 17, 2022 Sit to lyin Lying to sitting on side of be: 4 Sit to stand: 3 (mod assist) Chair/ecd-og-sfxoq transfer: 3 (mod assist) Walk 10 feet: 3 PT Milk Hauler Goals Milk Hauler Goals PT Intermediate Goals Time Frame: Dec 24, 2022 Roll Left & Right (QC): 6 Sit to Lying (QC): 6 Lying-Sitting on Side/Bed(QC): 6 Sit to Stand (QC): 4 (CGA) Chair/Cks-tx-Dksdd Xfer(QC): 4 (CGA) Toilet Transfer (QC): 4 (CGA) Car Transfer (QC): 3 ([place]) Does the Patient Walk: No and Walking Goal IS indicated Walk 10 feet (QC): 4 (CGA) Walk 50ft with 2 Turns (QC): 4 (CGA) Walk 150 ft (QC): 88 Walking 10ft on Uneven Surface: 4 (CA) 1 Step (curb) (QC): 88 4 Steps (QC): 88 12 Steps (QC): 88 Picking up an Object (QC): 4 (CGA using a tear down worker) Wheel 50 feet with 2 turns (QC: 4 (SBA) Wheel 150 feet: 4 (SBA) PT Plan Treatment/Plan Treatment Plan: Continue Plan of Care Treatment Plan: Bed Mobility, Education, Functional Activity Francesca, Functional Strength, Group Therapy, Gait, Safety, Therapeutic Exercise, Transfers Treatment Duration: Dec 24, 2022 Frequency: At least 5 of 7 days/Wk (IRF) Estimated Hrs Per Day: 1.5 hours per day Patient and/or Family Agrees t: Yes Safety Risks/Education Patient Education: Transfer Techniques, W/C Management Teaching Recipient: Patient Teaching Methods: Demonstration, Discussion Response to Teaching: Reinforcement Needed Time Time In: 1030 Time Out: 1200 DATE: Dec 13, 2022 Total Billed Treatment Time: 90 Total Billed Treatment Visit, FA (2), Ex (2), W/C (2) FELICIA COPELAND PT Dec 13, 2022 11:56
--- NOTE | 2022-12-13 13:52 | Wound Care Assessment ---
Wound Care Assessment Date Seen by Provider: Dec 13, 2022 Time Seen by Provider: 13:48 Chief Complaint Sacral pressure and MASD changes HPI This pleasant gentleman is well known to my outpatient clinic. Chava was admitted to the hospital recently for left lower lobe pneumonia and generalized weakness. He continues with debility. He has a h/o CVA with L. sided hemiplegia and venous HTN with chronic lymphedema. He does also have a h/o ETOH overuse complicating his healing as well. Chava notes that since he became ill he has been much less mobile (contributing to his sacral skin changes). He has no open areas currently. Will continue current dressings. Past Medical History: Admits Heart Disease Smoking Status: Former Smoker Alcohol Use: Regular Use Review of Systems General: Fatigue Neurological: Weakness Exam Vital Signs Date Time Temp Pulse Resp B/P (MAP) Pulse Ox O2 Delivery O2 Flow Rate FiO2 12/13/22 09:48 94 Room Air 12/13/22 07:40 36.8 105 18 144/78 (100) 12/11/22 21:39 21 12/11/22 21:35 0.00 Capillary Refill : General Appearance: no apparent distress, obese HEENT: other (normal hearing) Neck: full range of motion Cardiovascular: other (2+ edema b/l LE) Respiratory: no respiratory distress, no accessory muscle use Extremities: non-tender, inflammation, pedal edema Neurologic/Psychiatric: alert, normal mood/affect, oriented x 3 Skin Problem Location: other (sacrum) There is no open wound. Non-blanchable erythema to sacral region. Results Laboratory Tests 12/13/22 05:05: White Blood Count 9.1, Red Blood Count 3.01L, Hemoglobin 10.6L, Hematocrit 31L, Mean Corpuscular Volume 102H, Mean Corpuscular Hemoglobin 35H, Mean Corpuscular Hemoglobin Concent 34, Red Cell Distribution Width 13.5, Platelet Count 209, Mean Platelet Volume 9.4, Immature Granulocyte % (Auto) 0, Neutrophils (%) (Auto) 76H, Lymphocytes (%) (Auto) 12, Monocytes (%) (Auto) 9, Eosinophils (%) (Auto) 2, Basophils (%) (Auto) 0, Neutrophils # (Auto) 6.9, Lymphocytes # (Auto) 1.1, Monocytes # (Auto) 0.8, Eosinophils # (Auto) 0.2, Basophils # (Auto) 0.0, Immature Granulocyte # (Auto) 0.0, Sodium Level 135, Potassium Level 3.3L, Chloride Level 104, Carbon Dioxide Level 21, Anion Gap 10, Blood Urea Nitrogen 11, Creatinine 0.57L, Estimat Glomerular Filtration Rate 112, BUN/Creatinine Ratio 19, Glucose Level 102, Calcium Level 8.1L, Corrected Calcium 9.3, Total Bilirubin 1.2H, Aspartate Amino Transf (AST/SGOT) 25, Alanine Aminotransferase (ALT/SGPT) 11, Alkaline Phosphatase 102, Total Protein 5.2L, Albumin 2.5L Assessment/Plan/Dx Assessment: 1. Stage 1 pressure injury sacrum 2. L. hemiplegia with resulting immobility 3. Generalized weakness from pneumonia 4. Morbid obesity 5. ETOH use Plan: 1. Cleanse daily. Apply thick layer of barrier ointment 2. Allveyn bordered foam dressing to be changed bid and prn 3. Frequent positional changes recommended TONG THOMAS MD Dec 13, 2022 13:51
[2022-12-13] MEDS: ENOXAPARIN 40 MG/0.4 ML (LOVENOX) SYR SC SCH (17:36)
[2022-12-13 19:40] VITALS: BP 125/75
[2022-12-14] MEDS: DICYCLOMINE 10 MG (BENTYL) CAP PO SCH ×4 (00:08→18:10)
--- NOTE | 2022-12-14 05:46 | PM&R Progress Note ---
Subjective HPI/CC On Admission Date Seen by Provider: Dec 14, 2022 Time Seen by Provider: 09:00 Subjective/Events-last exam 12/14/2022: Improved overall Feels like he is getting on track Was tearful yesterday Ileus seems to be improved 12/13/2022: Doing a bit better Abdominal distention is still an issue Every time he is hospitalized he has the ileus issue Minimizing narcotics which drives the ileus 12/12/2022: Had a long conversation about alcoholism and complications Ileus still remains Loose stools noted Discontinue the fentanyl IV since narcotics are causing the ileus to become worse Patient may need nursing facility I did update him on this fact because he just thinks that he will just remain in a wheelchair but he cannot possibly take care of his ADLs in the level he is at right now 12/11/2022: Ileus remains Abdomen is taut Patient really cannot walk well Overall very declined Will continue antibiotics for 1 more day Supportive care will continue Review of Systems General: Fatigue, Malaise Gastrointestinal: Abdominal Pain Objective Exam Vital Signs Vital Signs Date Time Temp Pulse Resp B/P (MAP) Pulse Ox O2 Delivery O2 Flow Rate FiO2 12/14/22 20:10 Room Air 12/14/22 20:00 36.6 110 20 123/56 (78) 91 12/11/22 21:39 21 12/11/22 21:35 0.00 Capillary Refill : General Appearance: No Apparent Distress, Obese HEENT: Moist Mucous Membranes Neck: Full Range of Motion, Normal Inspection, Non Tender, Supple, Carotid Bruit Respiratory: Chest Non Tender, Lungs Clear, No Accessory Muscle Use, No Respiratory Distress Cardiovascular: Regular Rate, Rhythm, No Murmur Gastrointestinal: Normal Bowel Sounds, No Organomegaly, No Pulsatile Mass, Distended, Tenderness Back: Normal Inspection, No CVA Tenderness, No Vertebral Tenderness, Decreased Range of Motion (left) Extremity: Calf Tenderness, Other (Chronic venous stasis changes in lower legs bilaterally) Neurologic/Psychiatric: Alert, Oriented x3, Motor Weakness (left sided weakness) Skin: Warm/Dry, Ecchymosis (On arms and legs) Lymphatic: No Adenopathy Results/Procedures Lab Patient resulted labs reviewed. FIM Transfers Therapy Code Descriptions/Definitions Functional [place] Measure: 0=Not Assessed/NA 4=Minimal Assistance 1=Total Assistance 5=Supervision or Setup 2=Maximal Assistance 6=Modified [place] 3=Moderate Assistance 7=Complete IndependenceSCALE: Activities may be completed with or without assistive devices. 4-Qudphnssjn-gnmqcyb completes the activity by him/herself with no assistance from a helper. 5-Set-up or Clean-up Assistance-helper sets up or cleans up; patient completes activity. [place] assists only prior to or following the activity. 4-Supervision or Touching Assistance-helper provides verbal cues and/or touching/steadying and/or contact guard assistance as patient completes activity. Assistance may be provided throughout the activity or intermittently. 3-Partial/Moderate Assistance-helper does LESS THAN HALF the effort. [place] lifts, holds or supports trunk or limbs, but provides less than half the effort. 2-Substantial/Maximal Assistance-helper does MORE THAN HALF the effort. [place] lifts or holds trunk or limbs and provides more than half the effort. 2-Negdupses-cjosof does ALL the effort. Patient does none of the effort to complete the activity. Or, the assistance of 2 or more helpers is required for the patient to complete the activity. If activity was not attempted, code reason: 7-Patient Refused. 9-Not Applicable-not attempted and the patient did not perform the activity before the current illness, exacerbation or injury. 10-Not Attempted due to Environmental Limitations-(lack of equipment, weather restraints, etc.). 88-Not Attempted due to Medical Conditions or Safety Concerns. Roll Left to Right (QC): 6 Sit to Lying (QC): 4 Sit to Stand (QC): 3 Chair/Pbw-cp-Tfvfm Xfer(QC): 3 Car Transfer (QC): 2 Gait Training Does the Patient Walk?: No and Walking Goal IS indicated Walk 10 feet (QC): 88 Walk 50 ft with 2 Turns(QC): 88 Walk 150 ft (QC): 88 Walking 10ft/uneven surface-QC: 88 Wheelchair Training Does the Pt Use a Wheelchair?: Yes Wheel 50 ft with 2 turns (QC): 4 Wheel 150 ft (QC): 1 Type of Wheelchair: Manual Stair Training 1 Step (curb) (QC): 88 4 Steps (QC): 88 12 Steps (QC): 88 Balance Picking up an Object (QC): 88 ADL-Treatment Eating (QC): 5 Oral Hygiene (QC): 5 Shower/Bathe Self (QC): 3 Upper Body Dressing (QC): 5 Lower Body Dressing (QC): 1 (2 person assist required. Assist all parts.) On/Off Footwear (QC): 2 Toileting Hygiene (QC): 1 Toilet Transfer (QC): 1 Assessment/Plan Assessment and Plan Assess & Plan/Chief Complaint Assessment: Debility Pneumonia failed 4 outpatient treatments from Urgent Care in past 6 weeks- completed meropenem on 12/12/2022 Ileus Elevated lactic acidosis not due to sepsis but due to alcoholic liver disease Remote hx of left-sided rib fractures and splenic laceration Prior CVA with left-sided weakness Multiple falls at home chronic Alcoholism Anxiety Tachycardia Gout COPD Former smoker Edema positional type Poor protein status causing third-spacing Neuropathy Plan: Pain control Monitor closely Lovenox Ambulate 12/11/2022: Hep-Lock IV fluid Complete antibiotics 12/12/2022: Ileus management DC fentanyl Minimize oxycodone 12/13/2022: Minimize narcs 12/14/2022: Improved overall (1) Debility Status: Acute (2) Left lower lobe pneumonia Status: Acute (3) Sacral decubitus ulcer Status: Acute (4) Alcohol dependence Status: Acute (5) Colon distention (6) Left-sided weakness Status: Acute (7) Hypertension Status: Chronic (8) Neuropathy Status: Chronic (9) Anxiety Status: Chronic (10) Gout (11) COPD (chronic obstructive pulmonary disease) HARDY CAMPBELL DO Dec 14, 2022 05:46
[2022-12-14] MEDS: PANTOPRAZOLE 40 MG (PROTONIX) TAB PO SCH (06:26)
[2022-12-14] MEDS: MULTIVIT W/MINERALS TAB (THERAGRAN M) PO SCH (06:26)
[2022-12-14] MEDS: RT-ALBUTEROL SULF 2.5 MG/3 ML PRE-MIX VIAL INH SCH ×3 (07:28→19:21)
[2022-12-14 07:33] VITALS: BP 139/84
[2022-12-14] MEDS: MAGNESIUM OXIDE (MAG-OX)400 MG TAB PO SCH (07:57)
[2022-12-14] MEDS: ATENOLOL 25 MG (TENORMIN) TAB PO SCH (07:57)
[2022-12-14] MEDS: FOLIC ACID 1 MG TAB PO SCH (07:57)
[2022-12-14] MEDS: KCL 10 MEQ TAB (MICRO K) PO SCH ×3 (07:57→18:10)
--- NOTE | 2022-12-14 08:56 | Physical Therapy Daily Note ---
PT Daily Note-Current Subjective Patient in WC pre tx, agrees to PT, has unrated abdominal pain. Will be co- treating with OT due to poor patient mobility, strength, endurance, severe debility, coordinate UE and LE during activity, safety and reduce risk of falls. Pain Section J - Health Conditions 1. Rarely or not at all 2. Occasionally 3. Frequently 4. Almost constantly 8. Unable to answer Pain Effect on Sleep: 3 Pain Interference with Therapy: 3 Pain Interference w/Day-to-Day: 3 Appearance Patient in recliner post tx with nurse call, phone, tray, all needs met, legs elevated and on wedge for pressure relief and to elevate legs further. Mental Status Patient Orientation: Person, Place, Situation Transfers SCALE: Activities may be completed with or without assistive devices. 2-Zlyntjbyrr-gzmyonr completes the activity by him/herself with no assistance from a helper. 5-Set-up or Clean-up Assistance-helper sets up or cleans up; patient completes activity. [place] assists only prior to or following the activity. 4-Supervision or Touching Assistance-helper provides verbal cues and/or touching/steadying and/or contact guard assistance as patient completes activity. Assistance may be provided throughout the activity or intermittently. 3-Partial/Moderate Assistance-helper does LESS THAN HALF the effort. [place] lifts, holds or supports trunk or limbs, but provides less than half the effort. 2-Substantial/Maximal Assistance-helper does MORE THAN HALF the effort. [place] lifts or holds trunk or limbs and provides more than half the effort. 6-Xdoakanuz-wellhi does ALL the effort. Patient does none of the effort to complete the activity. Or, the assistance of 2 or more helpers is required for the patient to complete the activity. If activity was not attempted, code reason: 7-Patient Refused. 9-Not Applicable-not attempted and the patient did not perform the activity before the current illness, exacerbation or injury. 10-Not Attempted due to Environmental Limitations-(lack of equipment, weather restraints, etc.). 88-Not Attempted due to Medical Conditions or Safety Concerns. Sit to Stand (QC): 3 Chair/Cde-xo-Cznbb Xfer(QC): 3 Toilet Transfer (QC): 3 Patient brushed teeth at sink. After getting back to his room, patient needs to have a BM, mod assist transfer to toilet and back, OT assists with wiping and managing brief. Gait Training Distance: 2'x3 Gait Assistive Device: Parallel Bars min assist to process safety management engineer parallel bars, was able to take a few very short steps each time, fatigued easily Wheelchair Training Does the Pt Use a Wheelchair?: Yes Wheel 50 ft with 2 turns (QC): 3 Type of Wheelchair: Manual 100'x2, min assist, needed several rest breaks Treatments PT performed transfers, toileting, standing, ambulation, WC mobility, OT performed toileting, ADL's, UE positioning and safety with activity Assessment Current Status: Fair Progress improved transfers PT Short Term Goals Short Term Goals Time Frame: Dec 17, 2022 Sit to lyin Lying to sitting on side of be: 4 Sit to stand: 3 (mod assist) Chair/kwr-px-qvjtu transfer: 3 (mod assist) Walk 10 feet: 3 PT Detention Goals Detention Goals PT Detention Goals Time Frame: Dec 24, 2022 Roll Left & Right (QC): 6 Sit to Lying (QC): 6 Lying-Sitting on Side/Bed(QC): 6 Sit to Stand (QC): 4 (CGA) Chair/Tbu-zl-Hzhuw Xfer(QC): 4 (CGA) Toilet Transfer (QC): 4 (CGA) Car Transfer (QC): 3 (Diana) Does the Patient Walk: No and Walking Goal IS indicated Walk 10 feet (QC): 4 (CGA) Walk 50ft with 2 Turns (QC): 4 (CGA) Walk 150 ft (QC): 88 Walking 10ft on Uneven Surface: 4 (CA) 1 Step (curb) (QC): 88 4 Steps (QC): 88 12 Steps (QC): 88 Picking up an Object (QC): 4 (CGA using a insurance specialist) Wheel 50 feet with 2 turns (QC: 4 (SBA) Wheel 150 feet: 4 (SBA) PT Plan Problem List Problem List: Activity Tolerance, Functional Strength, Safety, Balance, Gait, Transfer, Bed Mobility, ROM Treatment/Plan Treatment Plan: Continue Plan of Care Treatment Plan: Bed Mobility, Education, Functional Activity Francesca, Functional Strength, Group Therapy, Gait, Safety, Therapeutic Exercise, Transfers Treatment Duration: Dec 24, 2022 Frequency: At least 5 of 7 days/Wk (IRF) Estimated Hrs Per Day: 1.5 hours per day Patient and/or Family Agrees t: Yes Safety Risks/Education Patient Education: Gait Training, Transfer Techniques, Correct Positioning, W/C Management, Safety Issues Teaching Recipient: Patient Teaching Methods: Demonstration, Discussion Response to Teaching: Reinforcement Needed Time Time In: 0800 Time Out: 0900 DATE: Dec 14, 2022 Total Billed Treatment Time: 60 Total Billed Treatment 1 visit FA 60' co-treated for 60' KRISTINE HAWK PT Dec 14, 2022 08:55
--- NOTE | 2022-12-14 09:01 | Occupational Ther Daily Note ---
OT Current Status-Daily Note Subjective Pt alert, lying in bed. Pt agrees to therapy. Pt continues to be anxious and negative about moving and progress. Therapeutic listening and encouragement provided by JOHNSTON. Pt c/o R side abdominal pain, nrsg brought pain meds. Co- treat with PT ([id number]), skills of 2 clinicians required to decrease fall ri sk, increase overall mobility and positioning B LE/UE with mobility. PT focusing on transfers, standing and ambulation while OT focusing on B UE placement, ADLs and assisting with mobility. Mental Status/Objective Patient Orientation: Person, Place, Time, Situation Attachments: IV ADL-Treatment Independent with eating. Min A for supine to EOB. Pt requested to use BSC, incontinent of bowel in bed when sitting EOB. Assist x1 in front of pt, assist 2nd person in back of pt for EOB to BSC transfer, this type of transfer for all toilet and w/c transfer. Amount of assistance depends on pt's confidence in staff and himself during transfers. Assist x2 for toileting. Pt sat at sink, to complete oral care and grooming independently. Therapy Code Descriptions/Definitions Functional [place] Measure: 0=Not Assessed/NA 4=Minimal Assistance 1=Total Assistance 5=Supervision or Setup 2=Maximal Assistance 6=Modified [place] 3=Moderate Assistance 7=Complete IndependenceSCALE: Activities may be completed with or without assistive devices. 4-Qlrzxwkusn-esmqrfo completes the activity by him/herself with no assistance from a helper. 5-Set-up or Clean-up Assistance-helper sets up or cleans up; patient completes activity. [place] assists only prior to or following the activity. 4-Supervision or Touching Assistance-helper provides verbal cues and/or touching/steadying and/or contact guard assistance as patient completes activity. Assistance may be provided throughout the activity or intermittently. 3-Partial/Moderate Assistance-helper does LESS THAN HALF the effort. [place] lifts, holds or supports trunk or limbs, but provides less than half the effort. 2-Substantial/Maximal Assistance-helper does MORE THAN HALF the effort. [place] lifts or holds trunk or limbs and provides more than half the effort. 7-Gtyfaxppt-ujtpyu does ALL the effort. Patient does none of the effort to complete the activity. Or, the assistance of 2 or more helpers is required for the patient to complete the activity. If activity was not attempted, code reason: 7-Patient Refused. 9-Not Applicable-not attempted and the patient did not perform the activity before the current illness, exacerbation or injury. 10-Not Attempted due to Environmental Limitations-(lack of equipment, weather restraints, etc.). 88-Not Attempted due to Medical Conditions or Safety Concerns. Eating (QC): 6 Oral Hygiene (QC): 6 Lower Body Dressing (QC): 1 (Assist to thread feet then assist to stand while 2nd person hikes pants) On/Off Footwear: 2 Toileting Hygiene (QC): 1 Toilet Transfer (QC): 1 Other Treatment See PT notes for ambulation progress in parallel bars. Min A for w/c mobility. After therapy, pt sitting in recliner with call light/phone in reach. All needs met in room. OT Short Term Goals Short Term Goals Time Frame: Dec 24, 2022 Toileting hygiene: 4 Shower/bathe self: 4 Upper body dressin Lower body dressin Putting on/taking off footwear: 3 OT Chcf Goals Career Law Clerk Goals Time Frame: Jan 07, 2023 Acute change in mental status: 0 Inattention: 0 Disorganized thinkin Altered level of consciousness: 0 Eating (QC): 6 Oral Hygiene (QC): 6 Toileting Hygiene (QC): 6 Shower/Bathe Self (QC): 6 Upper Body Dressing (QC): 6 Lower Body Dressing (QC): 6 On/Off Footwear (QC): 6 Additional Goals: 1-Demonstrate ADL Tasks, 2-Verbalize Understanding, 3- ImproveStrength/Francesca 1=Demonstrate adherence to instructed precautions during ADL tasks. 2=Patient will verbalize/demonstrate understanding of assistive devices/modifications for ADL. 3=Patient will improve strength/tolerance for activity to enable patient to perform ADL's. OT Education/Plan Problem List/Assessment Assessment: Decreased Activ Tolerance, Decreased Safety Aware, Decreased UE Strength, Dependent Transfers, Impaired Bed Mobility, Impaired Funct Balance, Impaired Self-Care Skills, Restricted Funct UE ROM Discharge Recommendations Plan/Recommendations: Continue POC Treatment Plan/Plan of Care Patient would benefit from OT for education, treatment and training to promote independence in ADL's, mobility, safety and/or upper extremity function for ADL's. Plan of Care: ADL Retraining, Functional Mobility, Group Exercise/Act as Ind, UE Funct Exercise/Act Treatment Duration: Jan 07, 2023 Frequency: At least 5 of 7 days/Wk (IRF) Estimated Hrs Per Day: 1.5 hours per day Agreement: Yes Rehab Potential: Guarded Time Start Time: 07:30 Stop Time: 09:00 DATE: Dec 14, 2022 Total Time Billed (hr/min): 90 Billed Treatment Time 1 visit-ADL 3 (45 min) FA 3 (45 min) co-treat with PT [id number], individual [id number] SUNIL DAMON Dec 14, 2022 09:01
[2022-12-14] MEDS: METOCLOPRAMIDE INJ 10 MG/2 ML (REGLAN) IVP SCH ×4 (09:02→21:23)
[2022-12-14] MEDS: MICONAZOLE 2% POWDER (DESENEX AF) 90 GM TOP SCH ×2 (09:05→21:24)
[2022-12-14] MEDS: DOCUSATE SODIUM 100 MG (COLACE) CAP PO SCH ×2 (09:09→21:53)
[2022-12-14] MEDS: polyethylene glycoL POWDER 17 GM (MIRALAX) PACK PO SCH ×2 (09:09→21:24)
[2022-12-14] MEDS: SENNOSIDES 8.6 MG (SENOKOT) TAB PO SCH ×2 (09:09→21:53)
--- NOTE | 2022-12-14 11:00 | Physical Therapy Daily Note ---
PT Daily Note-Current Subjective Patient in recliner pre tx, agrees to PT, has no complaints of pain at rest. Pain Section J - Health Conditions 1. Rarely or not at all 2. Occasionally 3. Frequently 4. Almost constantly 8. Unable to answer Pain Effect on Sleep: 3 Pain Interference with Therapy: 3 Pain Interference w/Day-to-Day: 3 Appearance Patient in recliner post tx with nurse call, phone, tray, all needs met. Mental Status Patient Orientation: Person, Place, Situation Transfers SCALE: Activities may be completed with or without assistive devices. 1-Zsilepconu-suhcwmq completes the activity by him/herself with no assistance from a helper. 5-Set-up or Clean-up Assistance-helper sets up or cleans up; patient completes activity. [place] assists only prior to or following the activity. 4-Supervision or Touching Assistance-helper provides verbal cues and/or touching/steadying and/or contact guard assistance as patient completes activity. Assistance may be provided throughout the activity or intermittently. 3-Partial/Moderate Assistance-helper does LESS THAN HALF the effort. [place] lifts, holds or supports trunk or limbs, but provides less than half the effort. 2-Substantial/Maximal Assistance-helper does MORE THAN HALF the effort. [place] lifts or holds trunk or limbs and provides more than half the effort. 6-Twmpucwze-irhfft does ALL the effort. Patient does none of the effort to complete the activity. Or, the assistance of 2 or more helpers is required for the patient to complete the activity. If activity was not attempted, code reason: 7-Patient Refused. 9-Not Applicable-not attempted and the patient did not perform the activity before the current illness, exacerbation or injury. 10-Not Attempted due to Environmental Limitations-(lack of equipment, weather restraints, etc.). 88-Not Attempted due to Medical Conditions or Safety Concerns. Exercises Supine Ex: Ankle pumps, Quad Set, Glut sets, Heel Slides (2 sets of 10), Short Arc Quads, Straight leg raise (2 sets of 10) Supine Reps: 20 (done in recliner with legs elevated) Seated Therapy Exercises: Ankle pumps, Long arc quads, Hip abd/add (with ball and RTB) Seated Reps: 20 Treatments LE ROM Assessment Current Status: Fair Progress Patient needed frequent rest breaks due to fatigue. PT Short Term Goals Short Term Goals Time Frame: Dec 17, 2022 Sit to lyin Lying to sitting on side of be: 4 Sit to stand: 3 (mod assist) Chair/dbo-dz-uhhfj transfer: 3 (mod assist) Walk 10 feet: 3 PT Retirement Goals Retirement Goals PT Retirement Goals Time Frame: Dec 24, 2022 Roll Left & Right (QC): 6 Sit to Lying (QC): 6 Lying-Sitting on Side/Bed(QC): 6 Sit to Stand (QC): 4 (CGA) Chair/Djw-wf-Zfcxg Xfer(QC): 4 (CGA) Toilet Transfer (QC): 4 (CGA) Car Transfer (QC): 3 (Diana) Does the Patient Walk: No and Walking Goal IS indicated Walk 10 feet (QC): 4 (CGA) Walk 50ft with 2 Turns (QC): 4 (CGA) Walk 150 ft (QC): 88 Walking 10ft on Uneven Surface: 4 (CA) 1 Step (curb) (QC): 88 4 Steps (QC): 88 12 Steps (QC): 88 Picking up an Object (QC): 4 (CGA using a keno terminal operator) Wheel 50 feet with 2 turns (QC: 4 (SBA) Wheel 150 feet: 4 (SBA) PT Plan Problem List Problem List: Activity Tolerance, Functional Strength, Safety, Balance, Gait, Transfer, Bed Mobility, ROM Treatment/Plan Treatment Plan: Continue Plan of Care Treatment Plan: Bed Mobility, Education, Functional Activity Francesca, Functional Strength, Group Therapy, Gait, Safety, Therapeutic Exercise, Transfers Treatment Duration: Dec 24, 2022 Frequency: At least 5 of 7 days/Wk (IRF) Estimated Hrs Per Day: 1.5 hours per day Patient and/or Family Agrees t: Yes Safety Risks/Education Patient Education: Correct Positioning, Safety Issues Teaching Recipient: Patient Teaching Methods: Demonstration, Discussion Response to Teaching: Reinforcement Needed Time Time In: 1030 Time Out: 1100 DATE: Dec 14, 2022 Total Billed Treatment Time: 30 Total Billed Treatment 1 visit EX 30' KRISTINE HAWK PT Dec 14, 2022 11:00
[2022-12-14] MEDS: BISACODYL 10 MG SUPP (DULCOLAX) PR PRN (14:49)
[2022-12-14] MEDS: FUROSEMIDE 40 MG (LASIX) TAB PO PRN (14:49)
[2022-12-14 14:59] VITALS: BP 139/84
--- NOTE | 2022-12-14 17:41 | Diagnostic Imaging Report ---
INDICATION: Ileus. TIME OF EXAM: 04:25 p.m. FINDINGS: No free air is identified. There is moderate gaseous distention to the stomach. There are some distended small and large bowel loops as well in the central abdomen. Bowel gas pattern appears nonspecific at this time. No wall thickening or pneumatosis is identified. IMPRESSION: There appear to be some gaseous distended bowel loops, similar to examination from three days earlier. Dictated by: Dictated on workstation # [id number]
[2022-12-14] MEDS: ENOXAPARIN 40 MG/0.4 ML (LOVENOX) SYR SC SCH (18:11)
[2022-12-14 20:00] VITALS: BP 123/56
--- NOTE | 2022-12-14 20:09 | Progress Note ---
Subjective Date Seen by a Provider: Dec 14, 2022 Time Seen by a Provider: 13:00 Subjective/Events-last exam doing ok. still very weak and only able to transfer to chair. abd distention but having small BM's and flatus. states abd distention improving. Objective Exam Vital Signs Date Time Temp Pulse Resp B/P (MAP) Pulse Ox O2 Delivery O2 Flow Rate FiO2 12/14/22 19:23 92 Room Air 12/14/22 14:59 36.4 99 93 12/14/22 14:57 93 Room Air 12/14/22 09:00 Room Air 12/14/22 07:33 36.4 99 20 139/84 (102) 93 Room Air 12/13/22 21:01 95 Room Air 12/13/22 20:10 Room Air I & O 12/14/22 07:00 Intake Total 840 ml Output Total 700 ml Balance 140 ml Capillary Refill : General Appearance: No Apparent Distress HEENT: PERRL/EOMI Neck: Full Range of Motion Respiratory: Chest Non Tender, Decreased Breath Sounds, Rhonci, Wheezing Cardiovascular: Regular Rate, Rhythm Gastrointestinal: normal bowel sounds, soft, distended Extremity: Normal Capillary Refill Neurologic/Psychiatric: Alert, Oriented x3 Skin: Normal Color Lymphatic: No Adenopathy Assessment/Plan Assessment/Plan Assess & Plan/Chief Complaint pneumonia, generalized debility, ileus vs. narcotic bowel. cont rehab therapy. continue PO cathartics and suppositories. add reglan until significant BM's and decreased abd distention. QAMAR BALDERAS MD Dec 14, 2022 20:09
[2022-12-14] MEDS: LORazepam 0.5 MG (ATIVAN) TABLET PO PRN (21:24)
[2022-12-14] MEDS: MELATONIN 3 MG TABLET PO PRN (21:24)
[2022-12-15] MEDS: DICYCLOMINE 10 MG (BENTYL) CAP PO SCH ×4 (02:22→17:53)
--- NOTE | 2022-12-15 06:46 | PM&R Progress Note ---
Subjective HPI/CC On Admission Date Seen by Provider: Dec 15, 2022 Time Seen by Provider: 09:00 Subjective/Events-last exam 12/15/2022: Ileus still present Slowly getting better More upbeat today Edema improved with RIGOBERTO wraps 12/14/2022: Improved overall Feels like he is getting on track Was tearful yesterday Ileus seems to be improved 12/13/2022: Doing a bit better Abdominal distention is still an issue Every time he is hospitalized he has the ileus issue Minimizing narcotics which drives the ileus 12/12/2022: Had a long conversation about alcoholism and complications Ileus still remains Loose stools noted Discontinue the fentanyl IV since narcotics are causing the ileus to become worse Patient may need nursing facility I did update him on this fact because he just thinks that he will just remain in a wheelchair but he cannot possibly take care of his ADLs in the level he is at right now 12/11/2022: Ileus remains Abdomen is taut Patient really cannot walk well Overall very declined Will continue antibiotics for 1 more day Supportive care will continue Review of Systems General: Fatigue, Malaise Objective Exam Vital Signs Vital Signs Date Time Temp Pulse Resp B/P (MAP) Pulse Ox O2 Delivery O2 Flow Rate FiO2 12/15/22 21:04 94 Room Air 12/15/22 20:00 36.3 95 22 116/70 (85) 12/11/22 21:39 21 12/11/22 21:35 0.00 Capillary Refill : General Appearance: No Apparent Distress, Obese HEENT: Moist Mucous Membranes Neck: Full Range of Motion, Normal Inspection, Non Tender, Supple, Carotid Bruit Respiratory: Chest Non Tender, Lungs Clear, No Accessory Muscle Use, No Respiratory Distress Cardiovascular: Regular Rate, Rhythm, No Murmur Gastrointestinal: Normal Bowel Sounds, No Organomegaly, No Pulsatile Mass, Distended, Tenderness Back: Normal Inspection, No CVA Tenderness, No Vertebral Tenderness, Decreased Range of Motion (left) Extremity: Calf Tenderness, Other (Chronic venous stasis changes in lower legs bilaterally) Neurologic/Psychiatric: Alert, Oriented x3, Motor Weakness (left sided weakness) Skin: Warm/Dry, Ecchymosis (On arms and legs) Lymphatic: No Adenopathy Results/Procedures Lab Laboratory Tests 12/15/22 07:00 Patient resulted labs reviewed. FIM Transfers Therapy Code Descriptions/Definitions Functional [place] Measure: 0=Not Assessed/NA 4=Minimal Assistance 1=Total Assistance 5=Supervision or Setup 2=Maximal Assistance 6=Modified [place] 3=Moderate Assistance 7=Complete IndependenceSCALE: Activities may be completed with or without assistive devices. 6-Nerjgqttno-dopbnap completes the activity by him/herself with no assistance from a helper. 5-Set-up or Clean-up Assistance-helper sets up or cleans up; patient completes activity. [place] assists only prior to or following the activity. 4-Supervision or Touching Assistance-helper provides verbal cues and/or touching/steadying and/or contact guard assistance as patient completes activity. Assistance may be provided throughout the activity or intermittently. 3-Partial/Moderate Assistance-helper does LESS THAN HALF the effort. [place] lifts, holds or supports trunk or limbs, but provides less than half the effort. 2-Substantial/Maximal Assistance-helper does MORE THAN HALF the effort. [place] lifts or holds trunk or limbs and provides more than half the effort. 2-Qislegdut-wzgqax does ALL the effort. Patient does none of the effort to complete the activity. Or, the assistance of 2 or more helpers is required for the patient to complete the activity. If activity was not attempted, code reason: 7-Patient Refused. 9-Not Applicable-not attempted and the patient did not perform the activity before the current illness, exacerbation or injury. 10-Not Attempted due to Environmental Limitations-(lack of equipment, weather restraints, etc.). 88-Not Attempted due to Medical Conditions or Safety Concerns. Roll Left to Right (QC): 6 Sit to Lying (QC): 4 Sit to Stand (QC): 3 Chair/Qub-lp-Xhcej Xfer(QC): 3 Car Transfer (QC): 2 Gait Training Does the Patient Walk?: No and Walking Goal IS indicated Distance: 2'x3 Walk 10 feet (QC): 88 Walk 50 ft with 2 Turns(QC): 88 Walk 150 ft (QC): 88 Walking 10ft/uneven surface-QC: 88 Gait Assistive Device: Parallel Bars Wheelchair Training Does the Pt Use a Wheelchair?: Yes Wheel 50 ft with 2 turns (QC): 3 Wheel 150 ft (QC): 1 Type of Wheelchair: Manual Stair Training 1 Step (curb) (QC): 88 4 Steps (QC): 88 12 Steps (QC): 88 Balance Picking up an Object (QC): 88 ADL-Treatment Eating (QC): 6 Oral Hygiene (QC): 6 Shower/Bathe Self (QC): 3 Upper Body Dressing (QC): 5 Lower Body Dressing (QC): 1 (Assist to thread feet then assist to stand while 2nd person hikes pants) On/Off Footwear (QC): 2 Toileting Hygiene (QC): 1 Toilet Transfer (QC): 1 Assessment/Plan Assessment and Plan Assess & Plan/Chief Complaint Assessment: Debility Pneumonia failed 4 outpatient treatments from Urgent Care in past 6 weeks- completed meropenem on 12/12/2022 Ileus Elevated lactic acidosis not due to sepsis but due to alcoholic liver disease Remote hx of left-sided rib fractures and splenic laceration Prior CVA with left-sided weakness Multiple falls at home chronic Alcoholism Anxiety Tachycardia Gout COPD Former smoker Edema positional type Poor protein status causing third-spacing Neuropathy Plan: Pain control Monitor closely Lovenox Ambulate 12/11/2022: Hep-Lock IV fluid Complete antibiotics 12/12/2022: Ileus management DC fentanyl Minimize oxycodone 12/13/2022: Minimize narcs 12/14/2022: Improved overall 12/15/2022: A bit improved today Alcohol cessation counseled (1) Debility Status: Acute (2) Left lower lobe pneumonia Status: Acute (3) Sacral decubitus ulcer Status: Acute (4) Alcohol dependence Status: Acute (5) Colon distention (6) Left-sided weakness Status: Acute (7) Hypertension Status: Chronic (8) Neuropathy Status: Chronic (9) Anxiety Status: Chronic (10) Gout (11) COPD (chronic obstructive pulmonary disease) HARDY CAMPBELL DO Dec 15, 2022 06:46
[2022-12-15] MEDS: MULTIVIT W/MINERALS TAB (THERAGRAN M) PO SCH (06:53)
[2022-12-15] MEDS: PANTOPRAZOLE 40 MG (PROTONIX) TAB PO SCH (06:53)
[2022-12-15 07:13] LABS: BASOPHILS % (AUTO) 0 % (0-10); EOSINOPHILS # (AUTO) 0.2 10^3/uL (0.0-0.3); EOSINOPHILS % (AUTO) 2 % (0-10); HEMATOCRIT 29 % (40-54); HEMOGLOBIN 9.6 g/dL (13.3-17.7); LYMPHOCYTES # (AUTO) 1.4 10^3/uL (1.0-4.0); LYMPHOCYTES % (AUTO) 16 % (12-44); MEAN CORPUSCULAR HEMOGLOBIN 34 pg (25-34); MEAN CORPUSCULAR HGB CONC 33 g/dL (32-36); MEAN CORPUSCULAR VOLUME 103 fL (80-99); MEAN PLATELET VOLUME 9.5 fL (9.0-12.2); MONOCYTES # (AUTO) 0.8 10^3/uL (0.0-1.0); MONOCYTES % (AUTO) 9 % (0-12); NEUTROPHILS # (AUTO) 6.3 10^3/uL (1.8-7.8); NEUTROPHILS % (AUTO) 72 % (42-75); PLATELET COUNT 259 10^3/uL (130-400); WHITE BLOOD COUNT 8.8 10^3/uL (4.3-11.0)
[2022-12-15 07:26] VITALS: BP 123/77
[2022-12-15 07:34] LABS: ALBUMIN 2.5 GM/DL (3.2-4.5); POTASSIUM 3.3 MMOL/L (3.6-5.0)
[2022-12-15 07:36] LABS: TOTAL PROTEIN 5.1 GM/DL (6.4-8.2)
[2022-12-15 07:40] LABS: CREATININE SERUM 0.59 MG/DL (0.60-1.30)
[2022-12-15] MEDS: RT-ALBUTEROL SULF 2.5 MG/3 ML PRE-MIX VIAL INH SCH ×2 (07:52→21:04)
[2022-12-15] MEDS: FOLIC ACID 1 MG TAB PO SCH (07:56)
[2022-12-15] MEDS: SENNOSIDES 8.6 MG (SENOKOT) TAB PO SCH ×2 (07:56→21:15)
[2022-12-15] MEDS: ATENOLOL 25 MG (TENORMIN) TAB PO SCH (07:56)
[2022-12-15] MEDS: DOCUSATE SODIUM 100 MG (COLACE) CAP PO SCH ×2 (07:56→21:15)
[2022-12-15] MEDS: FUROSEMIDE 40 MG (LASIX) TAB PO PRN (07:57)
[2022-12-15] MEDS: KCL 10 MEQ TAB (MICRO K) PO SCH ×3 (07:57→17:53)
[2022-12-15] MEDS: MAGNESIUM OXIDE (MAG-OX)400 MG TAB PO SCH (07:57)
--- NOTE | 2022-12-15 09:00 | Physical Therapy Daily Note ---
PT Daily Note-Current Subjective Pt. agrees to Rx with co Rx OT for bathing, dressing and w/c mobility and gait in // bars. Pt. c/o pain in abdomen but does not rate. Pt. states he does note that he is stronger today during gait and TRFs Pain Section J - Health Conditions 1. Rarely or not at all 2. Occasionally 3. Frequently 4. Almost constantly 8. Unable to answer Pain Effect on Sleep: 3 Pain Interference with Therapy: 3 Pain Interference w/Day-to-Day: 3 Mental Status Patient Orientation: Normal For Age Transfers SCALE: Activities may be completed with or without assistive devices. 0-Gzmckqswnf-wtnlknq completes the activity by him/herself with no assistance from a helper. 5-Set-up or Clean-up Assistance-helper sets up or cleans up; patient completes activity. [place] assists only prior to or following the activity. 4-Supervision or Touching Assistance-helper provides verbal cues and/or touching/steadying and/or contact guard assistance as patient completes activity. Assistance may be provided throughout the activity or intermittently. 3-Partial/Moderate Assistance-helper does LESS THAN HALF the effort. [place] lifts, holds or supports trunk or limbs, but provides less than half the effort. 2-Substantial/Maximal Assistance-helper does MORE THAN HALF the effort. [place] lifts or holds trunk or limbs and provides more than half the effort. 4-Mqunogqng-hzzhiu does ALL the effort. Patient does none of the effort to complete the activity. Or, the assistance of 2 or more helpers is required for the patient to complete the activity. If activity was not attempted, code reason: 7-Patient Refused. 9-Not Applicable-not attempted and the patient did not perform the activity before the current illness, exacerbation or injury. 10-Not Attempted due to Environmental Limitations-(lack of equipment, weather restraints, etc.). 88-Not Attempted due to Medical Conditions or Safety Concerns. Sit to Stand (QC): 3 (pt. used pull up technique vs push up from chair arm . this offers more leverage) TRFs sit to stand with pt. using pull up to stand technique 80% of time which required min to CGA, SPTs toward pts right with 90degree angle utilized and pt essentially pushing up from w/c arm rest with right hand ,then reaching for opposing arm rest of recliner to pull himself into recliner with mod to min assist. pt. c/o pain in left knee with wt bearing and this influences pts stability. Gait Training Does the Patient Walk?: Yes Walk 10 feet (QC): 4 Gait Assistive Device: Parallel Bars 8 ft x 3 in // bars with w/c to follow, CGA and instruction throughout with pt. clearing the floor each step with improved gait pattern vs 2-07. Wheelchair Training Does the Pt Use a Wheelchair?: Yes Wheel 50 ft with 2 turns (QC): 4 Type of Wheelchair: Manual pt. requires assist to brake w/c 30% of time Treatments PT PT co Rx secondary to need for coordinated skilled Rx for complex TRFs and U&L extremity confab for TRFs and gait. pt. showered, dressed, TRFd multiple trials in different fashions, ambulated in // bars and did w/c mobility Assessment Current Status: Good Progress pr. requires reassurance that he is safe and that he can accomplish goals. PT Short Term Goals Short Term Goals Time Frame: Dec 17, 2022 Sit to lyin Lying to sitting on side of be: 4 Sit to stand: 3 (mod assist) Chair/jwl-yh-rqpij transfer: 3 (mod assist) Walk 10 feet: 3 PT Shelter Goals Proc Tech Goals PT Proc Tech Goals Time Frame: Dec 24, 2022 Roll Left & Right (QC): 6 Sit to Lying (QC): 6 Lying-Sitting on Side/Bed(QC): 6 Sit to Stand (QC): 4 (CGA) Chair/Lsh-sr-Kbsgx Xfer(QC): 4 (CGA) Toilet Transfer (QC): 4 (CGA) Car Transfer (QC): 3 (Diana) Does the Patient Walk: No and Walking Goal IS indicated Walk 10 feet (QC): 4 (CGA) Walk 50ft with 2 Turns (QC): 4 (CGA) Walk 150 ft (QC): 88 Walking 10ft on Uneven Surface: 4 (CA) 1 Step (curb) (QC): 88 4 Steps (QC): 88 12 Steps (QC): 88 Picking up an Object (QC): 4 (CGA using a cardiovascular tech) Wheel 50 feet with 2 turns (QC: 4 (SBA) Wheel 150 feet: 4 (SBA) PT Plan Treatment/Plan Treatment Plan: Continue Plan of Care Treatment Plan: Bed Mobility, Education, Functional Activity Francesca, Functional Strength, Group Therapy, Gait, Safety, Therapeutic Exercise, Transfers Treatment Duration: Dec 24, 2022 Frequency: At least 5 of 7 days/Wk (IRF) Estimated Hrs Per Day: 1.5 hours per day Patient and/or Family Agrees t: Yes Safety Risks/Education Patient Education: Gait Training, Transfer Techniques, Correct Positioning, W/C Management, Disease Process, Safety Issues Teaching Recipient: Patient Teaching Methods: Demonstration, Discussion Response to Teaching: Verbalize Understanding, Return Demonstration, Reinforcement Needed Time Time In: 800 Time Out: 900 DATE: Dec 15, 2022 Total Billed Treatment Time: 60 Total Billed Treatment 1,FA35m,GT15m,WC10m ( PT OT co Rx 60m) KYMBERLY SANCHEZ PLUMBING ENGINEERING DRAFTSPERSON Dec 15, 2022 09:00
--- NOTE | 2022-12-15 09:00 | Occupational Ther Daily Note ---
OT Current Status-Daily Note Subjective Pt alert, lying in bed. Pt agrees to therapy. Pt continues to be anxious and negative about medical issues. Therapeutic listening and encouragement provided by JOHNSTON. Pt c/o R side abdominal pain, nrsg brought pain meds. Co-treat with PT ([id number]), skills of 2 clinicians required to decrease fall risk, increase overall mobility and positioning B LE/UE with mobility. PT focusing on transfers, standing and ambulation while OT focusing on B UE placement, ADLs and assisting with mobility. Mental Status/Objective Patient Orientation: Person, Place, Time, Situation Attachments: IV ADL-Treatment Pt agrees to shower. Independent with eating. SBA for supine to EOB. Mod A for transfers with 1 person in front assisting with transfer while 2nd person behind for safety. Pt requested to try BSC. Assist x2 for transfer and hygiene. Assist x2 for safety with BSC to rolling shower chair transfer. Pt completed shower sitting 100% of the time in rolling shower chair with cut out using grabbars and hand held shower. Pt unable to bend forward to complete lower leg/feet hygiene/dressing. Independent with oral care. Assist x2 for safety to complete lower body dressing. Max A for footwear. Therapy Code Descriptions/Definitions Functional [place] Measure: 0=Not Assessed/NA 4=Minimal Assistance 1=Total Assistance 5=Supervision or Setup 2=Maximal Assistance 6=Modified [place] 3=Moderate Assistance 7=Complete IndependenceSCALE: Activities may be completed with or without assistive devices. 1-Eoxqqnwkag-ncclwek completes the activity by him/herself with no assistance from a helper. 5-Set-up or Clean-up Assistance-helper sets up or cleans up; patient completes activity. [place] assists only prior to or following the activity. 4-Supervision or Touching Assistance-helper provides verbal cues and/or touching/steadying and/or contact guard assistance as patient completes activity. Assistance may be provided throughout the activity or intermittently. 3-Partial/Moderate Assistance-helper does LESS THAN HALF the effort. [place] lifts, holds or supports trunk or limbs, but provides less than half the effort. 2-Substantial/Maximal Assistance-helper does MORE THAN HALF the effort. [place] lifts or holds trunk or limbs and provides more than half the effort. 3-[place]-lexopy does ALL the effort. Patient does none of the effort to complete the activity. Or, the assistance of 2 or more helpers is required for the patient to complete the activity. If activity was not attempted, code reason: 7-Patient Refused. 9-Not Applicable-not attempted and the patient did not perform the activity before the current illness, exacerbation or injury. 10-Not Attempted due to Environmental Limitations-(lack of equipment, weather restraints, etc.). 88-Not Attempted due to Medical Conditions or Safety Concerns. Eating (QC): 6 Oral Hygiene (QC): 6 Shower/Bathe Self (QC): 4 Lower Body Dressing (QC): 1 On/Off Footwear: 2 Toileting Hygiene (QC): 1 Toilet Transfer (QC): 1 Other Treatment Pt progressing with ambulation in parallel bars, ambulated 2x's full length of parallel bars. See PT notes for assistance needed on parallel bars. After session, pt sitting in recliner with call light/phone in reach. All needs met in room. OT Short Term Goals Short Term Goals Time Frame: Dec 24, 2022 Toileting hygiene: 4 Shower/bathe self: 4 Upper body dressin Lower body dressin Putting on/taking off footwear: 3 OT Earthmoving Plant Operator Goals [facility] Goals Time Frame: Jan 07, 2023 Acute change in mental status: 0 Inattention: 0 Disorganized thinkin Altered level of consciousness: 0 Eating (QC): 6 Oral Hygiene (QC): 6 Toileting Hygiene (QC): 6 Shower/Bathe Self (QC): 6 Upper Body Dressing (QC): 6 Lower Body Dressing (QC): 6 On/Off Footwear (QC): 6 Additional Goals: 1-Demonstrate ADL Tasks, 2-Verbalize Understanding, 3- ImproveStrength/Francesca 1=Demonstrate adherence to instructed precautions during ADL tasks. 2=Patient will verbalize/demonstrate understanding of assistive devices/modifications for ADL. 3=Patient will improve strength/tolerance for activity to enable patient to perform ADL's. OT Education/Plan Problem List/Assessment Assessment: Decreased Activ Tolerance, Decreased UE Strength, Dependent Transfers, Impaired Self-Care Skills, Restricted Funct UE ROM Discharge Recommendations Plan/Recommendations: Continue POC Treatment Plan/Plan of Care Patient would benefit from OT for education, treatment and training to promote independence in ADL's, mobility, safety and/or upper extremity function for ADL's. Plan of Care: ADL Retraining, Functional Mobility, Group Exercise/Act as Ind, UE Funct Exercise/Act Treatment Duration: Jan 07, 2023 Frequency: At least 5 of 7 days/Wk (IRF) Estimated Hrs Per Day: 1.5 hours per day Agreement: Yes Rehab Potential: Guarded Time Start Time: 07:30 Stop Time: 09:00 DATE: Dec 15, 2022 Total Time Billed (hr/min): 90 Billed Treatment Time 1 visit-ADL 4 (60 min) FA 2 (30 min) individual [id number], co-treat with PT [id number] SUNIL DAMON Dec 15, 2022 09:00
[2022-12-15] MEDS: METOCLOPRAMIDE INJ 10 MG/2 ML (REGLAN) IVP SCH ×4 (09:20→21:16)
[2022-12-15] MEDS: MICONAZOLE 2% POWDER (DESENEX AF) 90 GM TOP SCH ×2 (09:25→21:16)
[2022-12-15] MEDS: polyethylene glycoL POWDER 17 GM (MIRALAX) PACK PO SCH ×2 (09:40→21:16)
--- NOTE | 2022-12-15 11:57 | Physical Therapy Daily Note ---
PT Daily Note-Current Subjective Pt. up in recliner, agrees to Rx, conts c/o uncomfortable abdomen, tight and full, after passing gas and a small watery BM pt. felt his abdomen felt a slight bit improved Pain Numeric Pain Scale: 5-Moderate Pain Location: Medial Location Body Site: Abdomen Pain Description: Pressure Section J - Health Conditions 1. Rarely or not at all 2. Occasionally 3. Frequently 4. Almost constantly 8. Unable to answer Pain Effect on Sleep: 1 Pain Interference with Therapy: 2 Pain Interference w/Day-to-Day: 2 Mental Status Patient Orientation: Normal For Age Transfers SCALE: Activities may be completed with or without assistive devices. 1-Yzgfqcjjtw-ksdzsdi completes the activity by him/herself with no assistance from a helper. 5-Set-up or Clean-up Assistance-helper sets up or cleans up; patient completes activity. [place] assists only prior to or following the activity. 4-Supervision or Touching Assistance-helper provides verbal cues and/or touching/steadying and/or contact guard assistance as patient completes activity. Assistance may be provided throughout the activity or intermittently. 3-Partial/Moderate Assistance-helper does LESS THAN HALF the effort. [place] lifts, holds or supports trunk or limbs, but provides less than half the effort. 2-Substantial/Maximal Assistance-helper does MORE THAN HALF the effort. [place] lifts or holds trunk or limbs and provides more than half the effort. 5-Yggwmlbbx-hmqhcc does ALL the effort. Patient does none of the effort to complete the activity. Or, the assistance of 2 or more helpers is required for the patient to complete the activity. If activity was not attempted, code reason: 7-Patient Refused. 9-Not Applicable-not attempted and the patient did not perform the activity before the current illness, exacerbation or injury. 10-Not Attempted due to Environmental Limitations-(lack of equipment, weather restraints, etc.). 88-Not Attempted due to Medical Conditions or Safety Concerns. Sit to Stand (QC): 4 sit to stands x 4 from recliner with chair slightly elevated. Pt has lift chair at home Gait Training Gait Assistive Device: FWW pt. took 5 steps forward and 5 steps back with FWW after sit to stands at lift chair, CGA for gait Exercises Supine Ex: Bridging, Ankle pumps, Quad Set, Glut sets, Heel Slides, Scooting (up in flat positioned lift chair), Straight leg raise, Hip abd/add Supine Reps: 12 Seated Therapy Exercises: Ankle pumps, Sit to stand, Long arc quads, Hip flexion Seated Reps: 10 Treatments supine and sit LE ex, sit to stands x 5 with chair slightly elevated, pregait and 5 to steps with FWW, pt. had small loose BM , briefs changed an max asst to cleanse pt and emiliano brief Assessment Current Status: Good Progress improved sit to stand pushing from arms of chair, gait initiation improved PT Short Term Goals Short Term Goals Time Frame: Dec 17, 2022 Sit to lyin Lying to sitting on side of be: 4 Sit to stand: 3 (mod assist) Chair/cph-jd-htnsg transfer: 3 (mod assist) Walk 10 feet: 3 PT Senior Living Goals Network Liaison Goals PT Network Liaison Goals Time Frame: Dec 24, 2022 Roll Left & Right (QC): 6 Sit to Lying (QC): 6 Lying-Sitting on Side/Bed(QC): 6 Sit to Stand (QC): 4 (CGA) Chair/Tvc-do-Xsrgc Xfer(QC): 4 (CGA) Toilet Transfer (QC): 4 (CGA) Car Transfer (QC): 3 (Diana) Does the Patient Walk: No and Walking Goal IS indicated Walk 10 feet (QC): 4 (CGA) Walk 50ft with 2 Turns (QC): 4 (CGA) Walk 150 ft (QC): 88 Walking 10ft on Uneven Surface: 4 (CA) 1 Step (curb) (QC): 88 4 Steps (QC): 88 12 Steps (QC): 88 Picking up an Object (QC): 4 (CGA using a biological technician) Wheel 50 feet with 2 turns (QC: 4 (SBA) Wheel 150 feet: 4 (SBA) PT Plan Treatment/Plan Treatment Plan: Continue Plan of Care Treatment Plan: Bed Mobility, Education, Functional Activity Francesca, Functional Strength, Group Therapy, Gait, Safety, Therapeutic Exercise, Transfers Treatment Duration: Dec 24, 2022 Frequency: At least 5 of 7 days/Wk (IRF) Estimated Hrs Per Day: 1.5 hours per day Patient and/or Family Agrees t: Yes Safety Risks/Education Patient Education: Gait Training, Transfer Techniques, Correct Positioning, Safety Issues Teaching Recipient: Patient Teaching Methods: Demonstration, Discussion Response to Teaching: Verbalize Understanding, Return Demonstration, Skip nforcement Needed Time Time In: 1130 Time Out: 1200 DATE: Dec 15, 2022 Total Billed Treatment Time: 30 Total Billed Treatment 1,FA20m,EX10m KYMBERLY SANCHEZ LIFE MANAGEMENT TEACHER Dec 15, 2022 11:57
--- NOTE | 2022-12-15 16:23 | Progress Note ---
Subjective Date Seen by a Provider: Dec 15, 2022 Time Seen by a Provider: 16:00 Subjective/Events-last exam doing better today. did have multiple BM's yesterday and today and much less abd distention. tolerating diet. Objective Exam Vital Signs Date Time Temp Pulse Resp B/P (MAP) Pulse Ox O2 Delivery O2 Flow Rate FiO2 12/15/22 09:55 Room Air 12/15/22 07:26 36.8 99 22 123/77 (92) 90 Room Air 12/14/22 20:10 Room Air 12/14/22 20:00 36.6 110 20 123/56 (78) 91 Room Air 12/14/22 19:23 92 Room Air I & O 12/15/22 07:00 Intake Total 1680 ml Output Total 1250 ml Balance 430 ml Capillary Refill : General Appearance: No Apparent Distress HEENT: PERRL/EOMI Neck: Full Range of Motion Respiratory: Lungs Clear, Rhonci, Wheezing Cardiovascular: Regular Rate, Rhythm Gastrointestinal: normal bowel sounds, soft Extremity: Normal Capillary Refill Neurologic/Psychiatric: Alert, Oriented x3 Skin: Normal Color Lymphatic: No Adenopathy Results Lab Laboratory Tests 12/15/22 07:00: White Blood Count 8.8, Red Blood Count 2.80L, Hemoglobin 9.6L, Hematocrit 29L, Mean Corpuscular Volume 103H, Mean Corpuscular Hemoglobin 34, Mean Corpuscular Hemoglobin Concent 33, Red Cell Distribution Width 13.4, Platelet Count 259, Mean Platelet Volume 9.5, Immature Granulocyte % (Auto) 1, Neutrophils (%) (Auto) 72, Lymphocytes (%) (Auto) 16, Monocytes (%) (Auto) 9, Eosinophils (%) (Auto) 2, Basophils (%) (Auto) 0, Neutrophils # (Auto) 6.3, Lymphocytes # (Auto) 1.4, Monocytes # (Auto) 0.8, Eosinophils # (Auto) 0.2, Basophils # (Auto) 0.0, Immature Granulocyte # (Auto) 0.0, Sodium Level 136, Potassium Level 3.3L, Chloride Level 104, Carbon Dioxide Level 22, Anion Gap 10, Blood Urea Nitrogen 10, Creatinine 0.59L, Estimat Glomerular Filtration Rate 111, BUN/Creatinine Ratio 17, Glucose Level 102, Calcium Level 8.0L, Corrected Calcium 9.2, Total Bilirubin 1.0, Aspartate Amino Transf (AST/SGOT) 28, Alanine Aminotransferase (ALT/SGPT) 15, Alkaline Phosphatase 95, Total Protein 5.1L, Albumin 2.5L Assessment/Plan Assessment/Plan Assess & Plan/Chief Complaint pneumonia, generalized debility, ileus vs. narcotic bowel. cont rehab therapy. continue PO cathartics and suppositories. add reglan until significant BM's and decreased abd distention. has had multiple BM's and has less abd distention. may d/c reglan at anytime. QAMAR BALDERAS MD Dec 15, 2022 16:22
[2022-12-15] MEDS: ENOXAPARIN 40 MG/0.4 ML (LOVENOX) SYR SC SCH (17:52)
[2022-12-15 20:00] VITALS: BP 116/70
[2022-12-15] MEDS: LORazepam 0.5 MG (ATIVAN) TABLET PO PRN (21:15)
[2022-12-15] MEDS: MELATONIN 3 MG TABLET PO PRN (21:15)
[2022-12-16] MEDS: DICYCLOMINE 10 MG (BENTYL) CAP PO SCH ×5 (01:03→22:55)
--- NOTE | 2022-12-16 06:02 | PM&R Progress Note ---
Subjective HPI/CC On Admission Date Seen by Provider: Dec 16, 2022 Time Seen by Provider: 10:00 Subjective/Events-last exam 12/16/2022: Patient improving a bit every day Legs wrapped More gas passed Abdomen is less taut BM+ 12/15/2022: Ileus still present Slowly getting better More upbeat today Edema improved with RIGOBERTO wraps 12/14/2022: Improved overall Feels like he is getting on track Was tearful yesterday Ileus seems to be improved 12/13/2022: Doing a bit better Abdominal distention is still an issue Every time he is hospitalized he has the ileus issue Minimizing narcotics which drives the ileus 12/12/2022: Had a long conversation about alcoholism and complications Ileus still remains Loose stools noted Discontinue the fentanyl IV since narcotics are causing the ileus to become worse Patient may need nursing facility I did update him on this fact because he just thinks that he will just remain in a wheelchair but he cannot possibly take care of his ADLs in the level he is at right now 12/11/2022: Ileus remains Abdomen is taut Patient really cannot walk well Overall very declined Will continue antibiotics for 1 more day Supportive care will continue Review of Systems General: Fatigue, Malaise Objective Exam Vital Signs Vital Signs Date Time Temp Pulse Resp B/P (MAP) Pulse Ox O2 Delivery O2 Flow Rate FiO2 12/16/22 21:30 93 Room Air 12/16/22 20:00 36.7 88 18 130/62 (84) 12/11/22 21:39 21 12/11/22 21:35 0.00 Capillary Refill : General Appearance: No Apparent Distress, Obese HEENT: Moist Mucous Membranes Neck: Full Range of Motion, Normal Inspection, Non Tender, Supple, Carotid Bruit Respiratory: Chest Non Tender, Lungs Clear, No Accessory Muscle Use, No Respiratory Distress Cardiovascular: Regular Rate, Rhythm, No Murmur Gastrointestinal: Normal Bowel Sounds, No Organomegaly, No Pulsatile Mass, Distended, Tenderness Back: Normal Inspection, No CVA Tenderness, No Vertebral Tenderness, Decreased Range of Motion (left) Extremity: Calf Tenderness, Other (Chronic venous stasis changes in lower legs bilaterally) Neurologic/Psychiatric: Alert, Oriented x3, Motor Weakness (left sided weakness) Skin: Warm/Dry, Ecchymosis (On arms and legs) Lymphatic: No Adenopathy Results/Procedures Lab Patient resulted labs reviewed. FIM Transfers Therapy Code Descriptions/Definitions Functional [place] Measure: 0=Not Assessed/NA 4=Minimal Assistance 1=Total Assistance 5=Supervision or Setup 2=Maximal Assistance 6=Modified [place] 3=Moderate Assistance 7=Complete IndependenceSCALE: Activities may be completed with or without assistive devices. 4-Iwsnydgmzv-abwdigz completes the activity by him/herself with no assistance from a helper. 5-Set-up or Clean-up Assistance-helper sets up or cleans up; patient completes activity. [place] assists only prior to or following the activity. 4-Supervision or Touching Assistance-helper provides verbal cues and/or touching/steadying and/or contact guard assistance as patient completes activity. Assistance may be provided throughout the activity or intermittently. 3-Partial/Moderate Assistance-helper does LESS THAN HALF the effort. [place] lifts, holds or supports trunk or limbs, but provides less than half the effort. 2-Substantial/Maximal Assistance-helper does MORE THAN HALF the effort. [place] lifts or holds trunk or limbs and provides more than half the effort. 5-Dumaykcri-qwrxnt does ALL the effort. Patient does none of the effort to complete the activity. Or, the assistance of 2 or more helpers is required for the patient to complete the activity. If activity was not attempted, code reason: 7-Patient Refused. 9-Not Applicable-not attempted and the patient did not perform the activity before the current illness, exacerbation or injury. 10-Not Attempted due to Environmental Limitations-(lack of equipment, weather restraints, etc.). 88-Not Attempted due to Medical Conditions or Safety Concerns. Roll Left to Right (QC): 6 Sit to Lying (QC): 4 Sit to Stand (QC): 4 Chair/Xlp-hn-Cabga Xfer(QC): 3 Car Transfer (QC): 2 Gait Training Does the Patient Walk?: Yes Distance: 2'x3 Walk 10 feet (QC): 4 Walk 50 ft with 2 Turns(QC): 88 Walk 150 ft (QC): 88 Walking 10ft/uneven surface-QC: 88 Gait Assistive Device: FWW Wheelchair Training Does the Pt Use a Wheelchair?: Yes Wheel 50 ft with 2 turns (QC): 4 Wheel 150 ft (QC): 1 Type of Wheelchair: Manual Stair Training 1 Step (curb) (QC): 88 4 Steps (QC): 88 12 Steps (QC): 88 Balance Picking up an Object (QC): 88 ADL-Treatment Eating (QC): 6 Oral Hygiene (QC): 6 Shower/Bathe Self (QC): 4 Upper Body Dressing (QC): 5 Lower Body Dressing (QC): 1 On/Off Footwear (QC): 2 Toileting Hygiene (QC): 1 Toilet Transfer (QC): 1 Assessment/Plan Assessment and Plan Assess & Plan/Chief Complaint Assessment: Debility Pneumonia failed 4 outpatient treatments from Urgent Care in past 6 weeks- completed meropenem on 12/12/2022 Ileus Elevated lactic acidosis not due to sepsis but due to alcoholic liver disease Remote hx of left-sided rib fractures and splenic laceration Prior CVA with left-sided weakness Multiple falls at home chronic Alcoholism Anxiety Tachycardia Gout COPD Former smoker Edema positional type Poor protein status causing third-spacing Neuropathy Plan: Pain control Monitor closely Lovenox Ambulate 12/11/2022: Hep-Lock IV fluid Complete antibiotics 12/12/2022: Ileus management DC fentanyl Minimize oxycodone 12/13/2022: Minimize narcs 12/14/2022: Improved overall 12/15/2022: A bit improved today Alcohol cessation counseled 12/16/2022: Improving (1) Debility Status: Acute (2) Left lower lobe pneumonia Status: Acute (3) Sacral decubitus ulcer Status: Acute (4) Alcohol dependence Status: Acute (5) Colon distention (6) Left-sided weakness Status: Acute (7) Hypertension Status: Chronic (8) Neuropathy Status: Chronic (9) Anxiety Status: Chronic (10) Gout (11) COPD (chronic obstructive pulmonary disease) HARDY CAMPBELL DO Dec 16, 2022 06:02
[2022-12-16] MEDS: PANTOPRAZOLE 40 MG (PROTONIX) TAB PO SCH (06:11)
[2022-12-16] MEDS: MULTIVIT W/MINERALS TAB (THERAGRAN M) PO SCH (06:11)
[2022-12-16] MEDS: RT-ALBUTEROL SULF 2.5 MG/3 ML PRE-MIX VIAL INH SCH ×2 (06:48→20:35)
[2022-12-16 07:52] VITALS: BP 130/80
--- NOTE | 2022-12-16 08:55 | Physical Therapy Daily Note ---
PT Daily Note-Current Subjective Patient in bed pre tx, agrees to PT, has 4/10 pain in abdomen. Pain Section J - Health Conditions 1. Rarely or not at all 2. Occasionally 3. Frequently 4. Almost constantly 8. Unable to answer Pain Effect on Sleep: 1 Pain Interference with Therapy: 2 Pain Interference w/Day-to-Day: 2 Appearance Patient in WC at bedside post tx with nurse call, phone, tray, all needs met. Mental Status Patient Orientation: Person, Place, Situation Transfers SCALE: Activities may be completed with or without assistive devices. 1-Baeuymrepo-gqcmeso completes the activity by him/herself with no assistance from a helper. 5-Set-up or Clean-up Assistance-helper sets up or cleans up; patient completes activity. [place] assists only prior to or following the activity. 4-Supervision or Touching Assistance-helper provides verbal cues and/or touching/steadying and/or contact guard assistance as patient completes activi ty. Assistance may be provided throughout the activity or intermittently. 3-Partial/Moderate Assistance-helper does LESS THAN HALF the effort. [place] lifts, holds or supports trunk or limbs, but provides less than half the effort. 2-Substantial/Maximal Assistance-helper does MORE THAN HALF the effort. [place] lifts or holds trunk or limbs and provides more than half the effort. 4-Mtcntbzmi-qgmrmg does ALL the effort. Patient does none of the effort to complete the activity. Or, the assistance of 2 or more helpers is required for the patient to complete the activity. If activity was not attempted, code reason: 7-Patient Refused. 9-Not Applicable-not attempted and the patient did not perform the activity before the current illness, exacerbation or injury. 10-Not Attempted due to Environmental Limitations-(lack of equipment, weather restraints, etc.). 88-Not Attempted due to Medical Conditions or Safety Concerns. Roll Left & Right (QC): 3 Lying to Sitting/Side of Bed(Q: 3 Sit to Stand (QC): 3 Chair/Yci-kh-Pdblg Xfer(QC): 3 mod assist for sit to stand, min assist for stand pivot transfer Gait Training Distance: 10'x2, 5' Walk 10 feet (QC): 4 Gait Persons Needed: 1 Gait Assistive Device: FWW WC follow, fatigues quickly Wheelchair Training Does the Pt Use a Wheelchair?: Yes Wheel 50 ft with 2 turns (QC): 3 Type of Wheelchair: Manual 100'x2 Exercises NuStep Minutes: 10 NuStep Workload: 4 Treatments bed mobility and transfers, ambulation, WC mobility, strengthening Assessment Current Status: Fair Progress slowly improving mobility and strength PT Short Term Goals Short Term Goals Time Frame: Dec 17, 2022 Sit to lyin Lying to sitting on side of be: 4 Sit to stand: 3 (mod assist) Chair/vih-ki-egbfc transfer: 3 (mod assist) Walk 10 feet: 3 PT [facility] Goals [facility] Goals PT [facility] Goals Time Frame: Dec 24, 2022 Roll Left & Right (QC): 6 Sit to Lying (QC): 6 Lying-Sitting on Side/Bed(QC): 6 Sit to Stand (QC): 4 (CGA) Chair/Cdc-vl-Bkpip Xfer(QC): 4 (CGA) Toilet Transfer (QC): 4 (CGA) Car Transfer (QC): 3 (Diana) Does the Patient Walk: No and Walking Goal IS indicated Walk 10 feet (QC): 4 (CGA) Walk 50ft with 2 Turns (QC): 4 (CGA) Walk 150 ft (QC): 88 Walking 10ft on Uneven Surface: 4 (CA) 1 Step (curb) (QC): 88 4 Steps (QC): 88 12 Steps (QC): 88 Picking up an Object (QC): 4 (CGA using a passport support manager) Wheel 50 feet with 2 turns (QC: 4 (SBA) Wheel 150 feet: 4 (SBA) PT Plan Problem List Problem List: Activity Tolerance, Functional Strength, Safety, Balance, Gait, Transfer, Bed Mobility, ROM Treatment/Plan Treatment Plan: Continue Plan of Care Treatment Plan: Bed Mobility, Education, Functional Activity Francesca, Functional Strength, Group Therapy, Gait, Safety, Therapeutic Exercise, Transfers Treatment Duration: Dec 24, 2022 Frequency: At least 5 of 7 days/Wk (IRF) Estimated Hrs Per Day: 1.5 hours per day Patient and/or Family Agrees t: Yes Safety Risks/Education Patient Education: Gait Training, Transfer Techniques, Correct Positioning, W/C Management, Safety Issues Teaching Recipient: Patient Teaching Methods: Demonstration, Discussion Response to Teaching: Reinforcement Needed Time Time In: 0800 Time Out: 0900 DATE: Dec 16, 2022 Total Billed Treatment Time: 60 Total Billed Treatment 1 visit EX 10' FA 50' KRISTINE HAWK PT Dec 16, 2022 08:55
[2022-12-16] MEDS: FOLIC ACID 1 MG TAB PO SCH (09:10)
[2022-12-16] MEDS: SENNOSIDES 8.6 MG (SENOKOT) TAB PO SCH ×2 (09:10→20:40)
[2022-12-16] MEDS: ATENOLOL 25 MG (TENORMIN) TAB PO SCH (09:10)
[2022-12-16] MEDS: DOCUSATE SODIUM 100 MG (COLACE) CAP PO SCH ×2 (09:10→21:36)
[2022-12-16] MEDS: MAGNESIUM OXIDE (MAG-OX)400 MG TAB PO SCH (09:11)
[2022-12-16] MEDS: KCL 10 MEQ TAB (MICRO K) PO SCH ×3 (09:11→17:59)
[2022-12-16] MEDS: polyethylene glycoL POWDER 17 GM (MIRALAX) PACK PO SCH ×2 (09:11→20:40)
[2022-12-16] MEDS: METOCLOPRAMIDE INJ 10 MG/2 ML (REGLAN) IVP SCH ×4 (09:19→21:36)
[2022-12-16] MEDS: MICONAZOLE 2% POWDER (DESENEX AF) 90 GM TOP SCH ×2 (09:29→20:06)
--- NOTE | 2022-12-16 09:55 | Physical Therapy Daily Note ---
PT Daily Note-Current Subjective Pt. agrees to therex, after Rx pt. states "Wow , that was really a work out for me" Pain Location: No Pain Reported Section J - Health Conditions 1. Rarely or not at all 2. Occasionally 3. Frequently 4. Almost constantly 8. Unable to answer Pain Effect on Sleep: 1 Pain Interference with Therapy: 2 Pain Interference w/Day-to-Day: 2 Mental Status Patient Orientation: Normal For Age Transfers SCALE: Activities may be completed with or without assistive devices. 9-Ddkqbxmfqj-lvhgwbv completes the activity by him/herself with no assistance from a helper. 5-Set-up or Clean-up Assistance-helper sets up or cleans up; patient completes activity. [place] assists only prior to or following the activity. 4-Supervision or Touching Assistance-helper provides verbal cues and/or touching/steadying and/or contact guard assistance as patient completes activity. Assistance may be provided throughout the activity or intermittently. 3-Partial/Moderate Assistance-helper does LESS THAN HALF the effort. [place] lifts, holds or supports trunk or limbs, but provides less than half the effort. 2-Substantial/Maximal Assistance-helper does MORE THAN HALF the effort. [place] lifts or holds trunk or limbs and provides more than half the effort. 3-Dxbgvkocr-gfhrkk does ALL the effort. Patient does none of the effort to complete the activity. Or, the assistance of 2 or more helpers is required for the patient to complete the activity. If activity was not attempted, code reason: 7-Patient Refused. 9-Not Applicable-not attempted and the patient did not perform the activity before the current illness, exacerbation or injury. 10-Not Attempted due to Environmental Limitations-(lack of equipment, weather restraints, etc.). 88-Not Attempted due to Medical Conditions or Safety Concerns. Roll Left & Right (QC): 4 Exercises Supine Ex: Bridging, Ankle pumps, Quad Set, Rolling, Glut sets, Lower trunk rotation, Heel Slides, Short Arc Quads, Scooting (up in bed), Straight leg raise, Hip abd/add Supine Reps: 12 (x2) Treatments bed mob rolling and scooting up in bed, Bilat LE therex as above, LEs elevated on wedge again after Rx with garnica at hand etc Assessment Current Status: Good Progress PT Short Term Goals Short Term Goals Time Frame: Dec 17, 2022 Sit to lyin Lying to sitting on side of be: 4 Sit to stand: 3 (mod assist) Chair/voh-ql-iaenf transfer: 3 (mod assist) Walk 10 feet: 3 PT Snf Goals [facility] Goals PT Snf Goals Time Frame: Dec 24, 2022 Roll Left & Right (QC): 6 Sit to Lying (QC): 6 Lying-Sitting on Side/Bed(QC): 6 Sit to Stand (QC): 4 (CGA) Chair/Nlk-ht-Invse Xfer(QC): 4 (CGA) Toilet Transfer (QC): 4 (CGA) Car Transfer (QC): 3 (Diana) Does the Patient Walk: No and Walking Goal IS indicated Walk 10 feet (QC): 4 (CGA) Walk 50ft with 2 Turns (QC): 4 (CGA) Walk 150 ft (QC): 88 Walking 10ft on Uneven Surface: 4 (CA) 1 Step (curb) (QC): 88 4 Steps (QC): 88 12 Steps (QC): 88 Picking up an Object (QC): 4 (CGA using a rewriter) Wheel 50 feet with 2 turns (QC: 4 (SBA) Wheel 150 feet: 4 (SBA) PT Plan Treatment/Plan Treatment Plan: Continue Plan of Care Treatment Plan: Bed Mobility, Education, Functional Activity Francesca, Functional Strength, Group Therapy, Gait, Safety, Therapeutic Exercise, Transfers Treatment Duration: Dec 24, 2022 Frequency: At least 5 of 7 days/Wk (IRF) Estimated Hrs Per Day: 1.5 hours per day Patient and/or Family Agrees t: Yes Safety Risks/Education Patient Education: Correct Positioning Response to Teaching: Reinforcement Needed Time Time In: 930 Time Out: 1000 DATE: Dec 16, 2022 Total Billed Treatment Time: 30 Total Billed Treatment 1,EX30m KYMBERLY SANCHEZ GAS[employer]INE [employer] OPERATOR Dec 16, 2022 09:55
--- NOTE | 2022-12-16 12:02 | Occupational Ther Daily Note ---
OT Current Status-Daily Note Subjective Pt alert, lying in bed. Pt required encouragement to participate in OT session. Pt agrees to therapy. No c/o pain, only fatigue. Mental Status/Objective Patient Orientation: Person, Place, Time, Situation Attachments: IV ADL-Treatment Pt is negative about anything he perceives is a setback. Pt also has tendencies to be impulsive with transfers and not sequence for safety, ie sitting down before turning fully, not standing upright before turning when using FWW. Min A to mod A for SPT depending on how anxious pt is with situation. Pt incontinent of bowel in bed. Nrsg and JOHNSTON cleaned pt up. Min A for supine to EOB. Using FWW, pt completes SPT from EOB to rolling shower chair, min A x2. Pt completed shower sitting on rolling shower chair using grabbars, LH sponge and hand held shower. Assist to thread hospital gown on due to pt unable to position correc tly. Max A with one person for lower body dressing. Max A for footwear. Independent sitting at sink to complete oral care. Pt continued to have BMs throughout shower. After session, pt sitting in recliner with call light/phone in reach. All needs met in room. Therapy Code Descriptions/Definitions Functional [place] Measure: 0=Not Assessed/NA 4=Minimal Assistance 1=Total Assistance 5=Supervision or Setup 2=Maximal Assistance 6=Modified [place] 3=Moderate Assistance 7=Complete IndependenceSCALE: Activities may be completed with or without assistive devices. 6-Tpaxknbhlw-gxfchae completes the activity by him/herself with no assistance from a helper. 5-Set-up or Clean-up Assistance-helper sets up or cleans up; patient completes activity. [place] assists only prior to or following the activity. 4-Supervision or Touching Assistance-helper provides verbal cues and/or touching/steadying and/or contact guard assistance as patient completes activity. Assistance may be provided throughout the activity or intermittently. 3-Partial/Moderate Assistance-helper does LESS THAN HALF the effort. [place] lifts, holds or supports trunk or limbs, but provides less than half the effort. 2-Substantial/Maximal Assistance-helper does MORE THAN HALF the effort. [place] lifts or holds trunk or limbs and provides more than half the effort. 6-Fofhmpzlq-ydmibx does ALL the effort. Patient does none of the effort to co mplete the activity. Or, the assistance of 2 or more helpers is required for the patient to complete the activity. If activity was not attempted, code reason: 7-Patient Refused. 9-Not Applicable-not attempted and the patient did not perform the activity before the current illness, exacerbation or injury. 10-Not Attempted due to Environmental Limitations-(lack of equipment, weather restraints, etc.). 88-Not Attempted due to Medical Conditions or Safety Concerns. Eating (QC): 6 Oral Hygiene (QC): 6 Shower/Bathe Self (QC): 3 (Assist to dry buttocks and lower legs/feet) Upper Body Dressing (QC): 3 (mod A) Lower Body Dressing (QC): 2 On/Off Footwear: 2 Toileting Hygiene (QC): 1 Toilet Transfer (QC): 1 OT Short Term Goals Short Term Goals Time Frame: Dec 24, 2022 Toileting hygiene: 4 Shower/bathe self: 4 Upper body dressin Lower body dressin Putting on/taking off footwear: 3 OT Quantitative Consultant Goals Quantitative Consultant Goals Time Frame: Jan 07, 2023 Acute change in mental status: 0 Inattention: 0 Disorganized thinkin Altered level of consciousness: 0 Eating (QC): 6 Oral Hygiene (QC): 6 Toileting Hygiene (QC): 6 Shower/Bathe Self (QC): 6 Upper Body Dressing (QC): 6 Lower Body Dressing (QC): 6 On/Off Footwear (QC): 6 Additional Goals: 1-Demonstrate ADL Tasks, 2-Verbalize Understanding, 3- ImproveStrength/Francesca 1=Demonstrate adherence to instructed precautions during ADL tasks. 2=Patient will verbalize/demonstrate understanding of assistive devices/modifications for ADL. 3=Patient will improve strength/tolerance for activity to enable patient to perform ADL's. OT Education/Plan Problem List/Assessment Assessment: Decreased Activ Tolerance, Decreased Safety Aware, Impaired Self- Care Skills, Restricted Funct UE ROM Discharge Recommendations Plan/Recommendations: Continue POC Treatment Plan/Plan of Care Patient would benefit from OT for education, treatment and training to promote independence in ADL's, mobility, safety and/or upper extremity function for ADL's. Plan of Care: ADL Retraining, Functional Mobility, Group Exercise/Act as Ind, UE Funct Exercise/Act Treatment Duration: Jan 07, 2023 Frequency: At least 5 of 7 days/Wk (IRF) Estimated Hrs Per Day: 1.5 hours per day Agreement: Yes Rehab Potential: Guarded Time Start Time: 10:30 Stop Time: 12:00 DATE: Dec 16, 2022 Total Time Billed (hr/min): 90 Billed Treatment Time 1 visit-ADL 6 (90 min) SUNIL DAMON Dec 16, 2022 12:02
[2022-12-16] MEDS: ENOXAPARIN 40 MG/0.4 ML (LOVENOX) SYR SC SCH (18:00)
--- NOTE | 2022-12-16 18:35 | Progress Note ---
Subjective Date Seen by a Provider: Dec 16, 2022 Time Seen by a Provider: 18:05 Subjective/Events-last exam Patient seen with Dr. Solis. Patient reports doing better today. He reports large BM this morning and continues to pass flatus. Denies any significant abdominal pain or N/V. Working with PT/OT. Tolerating clear liquid diet. Objective Exam Vital Signs Date Time Temp Pulse Resp B/P (MAP) Pulse Ox O2 Delivery O2 Flow Rate FiO2 12/16/22 09:00 Room Air 12/16/22 07:52 36.2 103 20 130/80 (97) 90 Room Air 12/16/22 06:48 89 Room Air 12/15/22 21:04 94 Room Air 12/15/22 20:10 Room Air 12/15/22 20:00 36.3 95 22 116/70 (85) 90 Room Air I & O 12/16/22 06:59 Intake Total 1430 ml Output Total 1000 ml Balance 430 ml Capillary Refill : General Appearance: No Apparent Distress, WD/WN Neck: Normal Inspection, Supple Respiratory: No Accessory Muscle Use, No Respiratory Distress Gastrointestinal: non tender, soft, distended Extremity: Normal Inspection, Normal Range of Motion Neurologic/Psychiatric: Alert, Oriented x3 Skin: Normal Color, Warm/Dry Assessment/Plan Assessment/Plan Assess & Plan/Chief Complaint A 62 year old male with pneumonia, generalized debility, ileus vs. narcotic bowel. cont rehab therapy. continue PO cathartics and suppositories. add reglan until significant BM's and decreased abd distention. has had multiple BM's and has less abd distention. may d/c reglan at anytime. Had large BM this morning - will increase diet to regular LILLIANA PIERCE APRN Dec 16, 2022 18:35
[2022-12-16 20:00] VITALS: BP 130/62
[2022-12-16] MEDS: MELATONIN 3 MG TABLET PO PRN (22:55)
[2022-12-16] MEDS: LORazepam 0.5 MG (ATIVAN) TABLET PO PRN (22:55)
[2022-12-17] MEDS: MULTIVIT W/MINERALS TAB (THERAGRAN M) PO SCH (06:01)
[2022-12-17] MEDS: MAGNESIUM OXIDE (MAG-OX)400 MG TAB PO SCH (06:01)
[2022-12-17] MEDS: DICYCLOMINE 10 MG (BENTYL) CAP PO SCH ×3 (06:01→17:33)
[2022-12-17] MEDS: PANTOPRAZOLE 40 MG (PROTONIX) TAB PO SCH (06:01)
--- NOTE | 2022-12-17 06:27 | PM&R Progress Note ---
Subjective HPI/CC On Admission Date Seen by Provider: Dec 17, 2022 Time Seen by Provider: 11:00 Subjective/Events-last exam 12/17/2022: Improved abdominal issue Passing gas No pain reported Minimized pain meds 12/16/2022: Patient improving a bit every day Legs wrapped More gas passed Abdomen is less taut BM+ 12/15/2022: Ileus still present Slowly getting better More upbeat today Edema improved with RIGOBERTO wraps 12/14/2022: Improved overall Feels like he is getting on track Was tearful yesterday Ileus seems to be improved 12/13/2022: Doing a bit better Abdominal distention is still an issue Every time he is hospitalized he has the ileus issue Minimizing narcotics which drives the ileus 12/12/2022: Had a long conversation about alcoholism and complications Ileus still remains Loose stools noted Discontinue the fentanyl IV since narcotics are causing the ileus to become worse Patient may need nursing facility I did update him on this fact because he just thinks that he will just remain in a wheelchair but he cannot possibly take care of his ADLs in the level he is at right now 12/11/2022: Ileus remains Abdomen is taut Patient really cannot walk well Overall very declined Will continue antibiotics for 1 more day Supportive care will continue Review of Systems General: Fatigue, Malaise Objective Exam Vital Signs Vital Signs Date Time Temp Pulse Resp B/P (MAP) Pulse Ox O2 Delivery O2 Flow Rate FiO2 12/17/22 21:10 Room Air 12/17/22 21:03 36.8 98 93 21 12/17/22 20:09 18 113/56 (75) Capillary Refill : General Appearance: No Apparent Distress, Obese HEENT: Moist Mucous Membranes Neck: Full Range of Motion, Normal Inspection, Non Tender, Supple, Carotid Bruit Respiratory: Chest Non Tender, Lungs Clear, No Accessory Muscle Use, No Respiratory Distress Cardiovascular: Regular Rate, Rhythm, No Murmur Gastrointestinal: Normal Bowel Sounds, No Organomegaly, No Pulsatile Mass, Distended, Tenderness Back: Normal Inspection, No CVA Tenderness, No Vertebral Tenderness, Decreased Range of Motion (left) Extremity: Calf Tenderness, Other (Chronic venous stasis changes in lower legs bilaterally) Neurologic/Psychiatric: Alert, Oriented x3, Motor Weakness (left sided weakness) Skin: Warm/Dry, Ecchymosis (On arms and legs) Lymphatic: No Adenopathy Results/Procedures Lab Patient resulted labs reviewed. FIM Transfers Therapy Code Descriptions/Definitions Functional [place] Measure: 0=Not Assessed/NA 4=Minimal Assistance 1=Total Assistance 5=Supervision or Setup 2=Maximal Assistance 6=Modified [place] 3=Moderate Assistance 7=Complete IndependenceSCALE: Activities may be completed with or without assistive devices. 1-Hllcpliavv-eupwejt completes the activity by him/herself with no assistance from a helper. 5-Set-up or Clean-up Assistance-helper sets up or cleans up; patient completes activity. [place] assists only prior to or following the activity. 4-Supervision or Touching Assistance-helper provides verbal cues and/or touching/steadying and/or contact guard assistance as patient completes activity. Assistance may be provided throughout the activity or intermittently. 3-Partial/Moderate Assistance-helper does LESS THAN HALF the effort. [place] lifts, holds or supports trunk or limbs, but provides less than half the effort. 2-Substantial/Maximal Assistance-helper does MORE THAN HALF the effort. [place] lifts or holds trunk or limbs and provides more than half the effort. 9-Dvjadcyny-odxmdu does ALL the effort. Patient does none of the effort to complete the activity. Or, the assistance of 2 or more helpers is required for the patient to complete the activity. If activity was not attempted, code reason: 7-Patient Refused. 9-Not Applicable-not attempted and the patient did not perform the activity before the current illness, exacerbation or injury. 10-Not Attempted due to Environmental Limitations-(lack of equipment, weather restraints, etc.). 88-Not Attempted due to Medical Conditions or Safety Concerns. Roll Left to Right (QC): 4 Sit to Lying (QC): 4 Sit to Stand (QC): 3 Chair/Ure-yu-Fshwz Xfer(QC): 3 Car Transfer (QC): 2 Gait Training Does the Patient Walk?: Yes Distance: 10'x2, 5' Walk 10 feet (QC): 4 Walk 50 ft with 2 Turns(QC): 88 Walk 150 ft (QC): 88 Walking 10ft/uneven surface-QC: 88 Gait Persons Needed: 1 Gait Assistive Device: FWW Wheelchair Training Does the Pt Use a Wheelchair?: Yes Wheel 50 ft with 2 turns (QC): 3 Wheel 150 ft (QC): 1 Type of Wheelchair: Manual Stair Training 1 Step (curb) (QC): 88 4 Steps (QC): 88 12 Steps (QC): 88 Balance Picking up an Object (QC): 88 ADL-Treatment Eating (QC): 6 Oral Hygiene (QC): 6 Shower/Bathe Self (QC): 3 (Assist to dry buttocks and lower legs/feet) Upper Body Dressing (QC): 3 (mod A) Lower Body Dressing (QC): 2 On/Off Footwear (QC): 2 Toileting Hygiene (QC): 1 Toilet Transfer (QC): 1 Assessment/Plan Assessment and Plan Assess & Plan/Chief Complaint Assessment: Debility Pneumonia failed 4 outpatient treatments from Urgent Care in past 6 weeks- completed meropenem on 12/12/2022 Ileus Elevated lactic acidosis not due to sepsis but due to alcoholic liver disease Remote hx of left-sided rib fractures and splenic laceration Prior CVA with left-sided weakness Multiple falls at home chronic Alcoholism Anxiety Tachycardia Gout COPD Former smoker Edema positional type Poor protein status causing third-spacing Neuropathy Plan: Pain control Monitor closely Lovenox Ambulate 12/11/2022: Hep-Lock IV fluid Complete antibiotics 12/12/2022: Ileus management DC fentanyl Minimize oxycodone 12/13/2022: Minimize narcs 12/14/2022: Improved overall 12/15/2022: A bit improved today Alcohol cessation counseled 12/16/2022: Improving 12/17/2022: Ileus improved (1) Debility Status: Acute (2) Left lower lobe pneumonia Status: Acute (3) Sacral decubitus ulcer Status: Acute (4) Alcohol dependence Status: Acute (5) Colon distention (6) Left-sided weakness Status: Acute (7) Hypertension Status: Chronic (8) Neuropathy Status: Chronic (9) Anxiety Status: Chronic (10) Gout (11) COPD (chronic obstructive pulmonary disease) HARDY CAMPBELL DO Dec 17, 2022 06:27
[2022-12-17] MEDS: RT-ALBUTEROL SULF 2.5 MG/3 ML PRE-MIX VIAL INH SCH ×2 (07:13→18:57)
[2022-12-17 07:44] VITALS: BP 133/68
[2022-12-17] MEDS: KCL 10 MEQ TAB (MICRO K) PO SCH ×3 (08:04→17:33)
[2022-12-17] MEDS: ATENOLOL 25 MG (TENORMIN) TAB PO SCH (08:04)
[2022-12-17] MEDS: FOLIC ACID 1 MG TAB PO SCH (08:04)
[2022-12-17] MEDS: METOCLOPRAMIDE INJ 10 MG/2 ML (REGLAN) IVP SCH ×4 (08:05→21:29)
[2022-12-17] MEDS: DOCUSATE SODIUM 100 MG (COLACE) CAP PO SCH ×2 (08:07→21:50)
[2022-12-17] MEDS: polyethylene glycoL POWDER 17 GM (MIRALAX) PACK PO SCH ×2 (08:07→21:50)
[2022-12-17] MEDS: SENNOSIDES 8.6 MG (SENOKOT) TAB PO SCH ×2 (08:08→21:50)
--- NOTE | 2022-12-17 08:55 | Physical Therapy Daily Note ---
PT Daily Note-Current Subjective Patient in bed pre tx, agrees to PT, has unrated pain in abdomen. Pain Section J - Health Conditions 1. Rarely or not at all 2. Occasionally 3. Frequently 4. Almost constantly 8. Unable to answer Pain Effect on Sleep: 1 Pain Interference with Therapy: 2 Pain Interference w/Day-to-Day: 2 Appearance Patient in WC at bedside post tx with nurse call, phone, tray, all needs met. Mental Status Patient Orientation: Person, Place, Situation Transfers SCALE: Activities may be completed with or without assistive devices. 1-Zgahgimbds-amyorhh completes the activity by him/herself with no assistance from a helper. 5-Set-up or Clean-up Assistance-helper sets up or cleans up; patient completes activity. [place] assists only prior to or following the activity. 4-Supervision or Touching Assistance-helper provides verbal cues and/or touching/steadying and/or contact guard assistance as patient completes act ivity. Assistance may be provided throughout the activity or intermittently. 3-Partial/Moderate Assistance-helper does LESS THAN HALF the effort. [place] lifts, holds or supports trunk or limbs, but provides less than half the effort. 2-Substantial/Maximal Assistance-helper does MORE THAN HALF the effort. [place] lifts or holds trunk or limbs and provides more than half the effort. 0-Lyykaaxev-jxtomy does ALL the effort. Patient does none of the effort to complete the activity. Or, the assistance of 2 or more helpers is required for the patient to complete the activity. If activity was not attempted, code reason: 7-Patient Refused. 9-Not Applicable-not attempted and the patient did not perform the activity before the current illness, exacerbation or injury. 10-Not Attempted due to Environmental Limitations-(lack of equipment, weather restraints, etc.). 88-Not Attempted due to Medical Conditions or Safety Concerns. Roll Left & Right (QC): 4 Lying to Sitting/Side of Bed(Q: 4 Sit to Stand (QC): 2 Chair/Des-zo-Wjnrv Xfer(QC): 2 Patient stands and has a BM all over his bed, patient is cleaned and new brief put on and transfers to . Gait Training Distance: 20', 10'x2 Walk 10 feet (QC): 4 Gait Persons Needed: 1 Gait Assistive Device: FWW follow, slow ambulation, has difficulty lifting feet. Wheelchair Training Does the Pt Use a Wheelchair?: Yes Wheel 50 ft with 2 turns (QC): 4 Type of Wheelchair: Manual 100'x2 Treatments transfers, bed mobility, ambulation, WC mobility Assessment Current Status: Poor Progress more assist needed for sit to stand today PT Short Term Goals Short Term Goals Time Frame: Dec 17, 2022 Sit to lyin Lying to sitting on side of be: 4 Sit to stand: 3 (mod assist) Chair/nxh-ek-ooggh transfer: 3 (mod assist) Walk 10 feet: 3 PT Jail Goals Teachers' Assistant Goals PT Jail Goals Time Frame: Dec 24, 2022 Roll Left & Right (QC): 6 Sit to Lying (QC): 6 Lying-Sitting on Side/Bed(QC): 6 Sit to Stand (QC): 4 (CGA) Chair/Cas-gp-Rvnol Xfer(QC): 4 (CGA) Toilet Transfer (QC): 4 (CGA) Car Transfer (QC): 3 (Diana) Does the Patient Walk: No and Walking Goal IS indicated Walk 10 feet (QC): 4 (CGA) Walk 50ft with 2 Turns (QC): 4 (CGA) Walk 150 ft (QC): 88 Walking 10ft on Uneven Surface: 4 (CA) 1 Step (curb) (QC): 88 4 Steps (QC): 88 12 Steps (QC): 88 Picking up an Object (QC): 4 (CGA using a control systems drafting officer) Wheel 50 feet with 2 turns (QC: 4 (SBA) Wheel 150 feet: 4 (SBA) PT Plan Problem List Problem List: Activity Tolerance, Functional Strength, Safety, Balance, Gait, Transfer, Bed Mobility, ROM Treatment/Plan Treatment Plan: Continue Plan of Care Treatment Plan: Bed Mobility, Education, Functional Activity Francesca, Functional Strength, Group Therapy, Gait, Safety, Therapeutic Exercise, Transfers Treatment Duration: Dec 24, 2022 Frequency: At least 5 of 7 days/Wk (IRF) Estimated Hrs Per Day: 1.5 hours per day Patient and/or Family Agrees t: Yes Safety Risks/Education Patient Education: Gait Training, Transfer Techniques, Correct Positioning, Safety Issues Teaching Recipient: Patient Teaching Methods: Demonstration, Discussion Response to Teaching: Reinforcement Needed Time Time In: 0800 Time Out: 0900 DATE: Dec 17, 2022 Total Billed Treatment Time: 60 Total Billed Treatment 1 visit FA 60' KRISTINE HAWK PT Dec 17, 2022 08:55
[2022-12-17] MEDS: MICONAZOLE 2% POWDER (DESENEX AF) 90 GM TOP SCH ×2 (09:03→21:29)
--- NOTE | 2022-12-17 09:26 | Occupational Ther Daily Note ---
OT Current Status-Daily Note Subjective Pt up in w/c following PT tx, agreeable to OT Tx. ADL-Treatment Therapy Code Descriptions/Definitions Functional [place] Measure: 0=Not Assessed/NA 4=Minimal Assistance 1=Total Assistance 5=Supervision or Setup 2=Maximal Assistance 6=Modified [place] 3=Moderate Assistance 7=Complete IndependenceSCALE: Activities may be completed with or without assistive devices. 8-Pdzerzbuoz-vwkjyle completes the activity by him/herself with no assistance f rom a helper. 5-Set-up or Clean-up Assistance-helper sets up or cleans up; patient completes activity. [place] assists only prior to or following the activity. 4-Supervision or Touching Assistance-helper provides verbal cues and/or touching/steadying and/or contact guard assistance as patient completes activity. Assistance may be provided throughout the activity or intermittently. 3-Partial/Moderate Assistance-helper does LESS THAN HALF the effort. [place] lifts, holds or supports trunk or limbs, but provides less than half the effort. 2-Substantial/Maximal Assistance-helper does MORE THAN HALF the effort. [place] lifts or holds trunk or limbs and provides more than half the effort. 5-Hdpovwjwo-xmsfld does ALL the effort. Patient does none of the effort to complete the activity. Or, the assistance of 2 or more helpers is required for the patient to complete the activity. If activity was not attempted, code reason: 7-Patient Refused. 9-Not Applicable-not attempted and the patient did not perform the activity before the current illness, exacerbation or injury. 10-Not Attempted due to Environmental Limitations-(lack of equipment, weather restraints, etc.). 88-Not Attempted due to Medical Conditions or Safety Concerns. Oral Hygiene (QC): 6 Other Treatment Pt in w/c, propelled w/c into bathroom. Pt completed grooming tasks at sink independently, washing his face and chest as well as brushing his teeth. Pt propelled w/c to therapy gym. OT Tx focused on increasing BUE strength and activity tolerance. Pt completed arm bike x15 mins, 10 watt resistance, rest breaks as needed. [place] wrap applied to L hand to assist with grasp on handle, as pt had difficulty holding onto handle during the fist few minutes of task. Pt then able to complete remaining time on arm bike with less difficulty. Pt then removed beads from moderate resistance theraputty (green) in order to increase BUE strength and activity tolerance. Pt able to remove all beads without cues. Pt returned to his room via w/c. Post tx, pt up in w/c, call light in reach and all needs met. Education OT Patient Education: Correct positioning, Energy conservation, Modified ADL techniques, Progress toward Goal/Update tx plan, Purpose of tx/functional activities, Rehab process Teaching Recipient: Patient Teaching Methods: Discussion Response to Teaching: Verbalize Understanding OT Short Term Goals Short Term Goals Time Frame: Dec 24, 2022 Toileting hygiene: 4 Shower/bathe self: 4 Upper body dressin Lower body dressin Putting on/taking off footwear: 3 OT [employer]oles[employer] Agronomist Goals Half-Way Goals Time Frame: Jan 07, 2023 Acute change in mental status: 0 Inattention: 0 Disorganized thinkin Altered level of consciousness: 0 Eating (QC): 6 Oral Hygiene (QC): 6 Toileting Hygiene (QC): 6 Shower/Bathe Self (QC): 6 Upper Body Dressing (QC): 6 Lower Body Dressing (QC): 6 On/Off Footwear (QC): 6 Additional Goals: 1-Demonstrate ADL Tasks, 2-Verbalize Understanding, 3-ImproveStrength/Francesca 1=Demonstrate adherence to instructed precautions during ADL tasks. 2=Patient will verbalize/demonstrate understanding of assistive devices/modifications for ADL. 3=Patient will improve strength/tolerance for activity to enable patient to perform ADL's. OT Education/Plan Problem List/Assessment Assessment: Decreased Activ Tolerance, Decreased Safety Aware, Decreased UE Strength, Impaired Funct Balance, Impaired I ADL's, Impaired Self-Care Skills, Restricted Funct UE ROM Discharge Recommendations Plan/Recommendations: Continue POC Treatment Plan/Plan of Care Patient would benefit from OT for education, treatment and training to promote independence in ADL's, mobility, safety and/or upper extremity function for ADL's. Plan of Care: ADL Retraining, Functional Mobility, Group Exercise/Act as Ind, UE Funct Exercise/Act Treatment Duration: Jan 07, 2023 Frequency: At least 5 of 7 days/Wk (IRF) Estimated Hrs Per Day: 1.5 hours per day Agreement: Yes Rehab Potential: Guarded Time Start Time: 09:00 Stop Time: 10:00 DATE: Dec 17, 2022 Total Time Billed (hr/min): 60 Billed Treatment Time 1, ADL (20'), EX (15'), FA 2 (25') WILFREDO CORLEY OT Dec 17, 2022 09:26
--- NOTE | 2022-12-17 10:27 | Physical Therapy Daily Note ---
PT Daily Note-Current Subjective Patient in WC at bedside pre tx, agrees to PT, voices no complaints of pain. Pain Section J - Health Conditions 1. Rarely or not at all 2. Occasionally 3. Frequently 4. Almost constantly 8. Unable to answer Pain Effect on Sleep: 1 Pain Interference with Therapy: 2 Pain Interference w/Day-to-Day: 2 Appearance Patient in in therapy gym post tx, has OT right after PT. Mental Status Patient Orientation: Person, Place, Situation Transfers SCALE: Activities may be completed with or without assistive devices. 0-Wqssmooegm-jopzgab completes the activity by him/herself with no assistance from a helper. 5-Set-up or Clean-up Assistance-helper sets up or cleans up; patient completes activity. [place] assists only prior to or following the activity. 4-Supervision or Touching Assistance-helper provides verbal cues and/or touching/steadying and/or contact guard assistance as patient completes activity. Assistance may be provided throughout the activity or intermittently. 3-Partial/Moderate Assistance-helper does LESS THAN HALF the effort. [place] lifts, holds or supports trunk or limbs, but provides less than half the effort. 2-Substantial/Maximal Assistance-helper does MORE THAN HALF the effort. [place] lifts or holds trunk or limbs and provides more than half the effort. 1-Lhaksxxvk-dysnpc does ALL the effort. Patient does none of the effort to complete the activity. Or, the assistance of 2 or more helpers is required for the patient to complete the activity. If activity was not attempted, code reason: 7-Patient Refused. 9-Not Applicable-not attempted and the patient did not perform the activity before the current illness, exacerbation or injury. 10-Not Attempted due to Environmental Limitations-(lack of equipment, weather restraints, etc.). 88-Not Attempted due to Medical Conditions or Safety Concerns. Sit to Stand (QC): 3 Patient stood at the parallel bars x3 with min assist each time. Wheelchair Training Does the Pt Use a Wheelchair?: Yes Wheel 50 ft with 2 turns (QC): 4 Type of Wheelchair: Manual 100'x3, SBA Exercises Standing: Heel/toe raises, Marching, Mini squats Standing Reps: 20 (standing at parallel bars) Treatments LE strengthening, WC mobility Assessment Current Status: Fair Progress improved sit to stand PT Short Term Goals Short Term Goals Time Frame: Dec 17, 2022 Sit to lyin Lying to sitting on side of be: 4 Sit to stand: 3 (mod assist) Chair/cop-om-mjmwo transfer: 3 (mod assist) Walk 10 feet: 3 PT Prison Goals Bottom Painter Goals PT Prison Goals Time Frame: Dec 24, 2022 Roll Left & Right (QC): 6 Sit to Lying (QC): 6 Lying-Sitting on Side/Bed(QC): 6 Sit to Stand (QC): 4 (CGA) Chair/Orc-ho-Ryupe Xfer(QC): 4 (CGA) Toilet Transfer (QC): 4 (CGA) Car Transfer (QC): 3 (Diana) Does the Patient Walk: No and Walking Goal IS indicated Walk 10 feet (QC): 4 (CGA) Walk 50ft with 2 Turns (QC): 4 (CGA) Walk 150 ft (QC): 88 Walking 10ft on Uneven Surface: 4 (CA) 1 Step (curb) (QC): 88 4 Steps (QC): 88 12 Steps (QC): 88 Picking up an Object (QC): 4 (CGA using a cloud solutions architect) Wheel 50 feet with 2 turns (QC: 4 (SBA) Wheel 150 feet: 4 (SBA) PT Plan Problem List Problem List: Activity Tolerance, Functional Strength, Safety, Balance, Gait, Transfer, Bed Mobility, ROM Treatment/Plan Treatment Plan: Continue Plan of Care Treatment Plan: Bed Mobility, Education, Functional Activity Francesca, Functional Strength, Group Therapy, Gait, Safety, Therapeutic Exercise, Transfers Treatment Duration: Dec 24, 2022 Frequency: At least 5 of 7 days/Wk (IRF) Estimated Hrs Per Day: 1.5 hours per day Patient and/or Family Agrees t: Yes Safety Risks/Education Patient Education: Correct Positioning, W/C Management, Safety Issues Teaching Recipient: Patient Teaching Methods: Demonstration, Discussion Response to Teaching: Reinforcement Needed Time Time In: 1000 Time Out: 1030 DATE: Dec 17, 2022 Total Billed Treatment Time: 30 Total Billed Treatment 1 visit EX 15' FA 15' KRISTINE HAWK PT Dec 17, 2022 10:27
--- NOTE | 2022-12-17 11:29 | Occupational Ther Daily Note ---
OT Current Status-Daily Note Subjective Pt alert, finishing up with PT. JOHNSTON took over care from PT in gym. Pt agrees to therapy. C/o fatigue. Mental Status/Objective Patient Orientation: Person, Place, Time, Situation Attachments: IV ADL-Treatment Therapy Code Descriptions/Definitions Functional [place] Measure: 0=Not Assessed/NA 4=Minimal Assistance 1=Total Assistance 5=Supervision or Setup 2=Maximal Assistance 6=Modified [place] 3=Moderate Assistance 7=Complete IndependenceSCALE: Activities may be completed with or without assistive devices. 6-Wklkjmwaku-hkaddrf completes the activity by him/herself with no assistance from a helper. 5-Set-up or Clean-up Assistance-helper sets up or cleans up; patient completes activity. [place] assists only prior to or following the activity. 4-Supervision or Touching Assistance-helper provides verbal cues and/or touching/steadying and/or contact guard assistance as patient completes activity. Assistance may be provided throughout the activity or intermittently. 3-Partial/Moderate Assistance-helper does LESS THAN HALF the effort. [place] lifts, holds or supports trunk or limbs, but provides less than half the effort. 2-Substantial/Maximal Assistance-helper does MORE THAN HALF the effort. [place] lifts or holds trunk or limbs and provides more than half the effort. 5-Aadddgywm-jyxkdw does ALL the effort. Patient does none of the effort to complete the activity. Or, the assistance of 2 or more helpers is required for the patient to complete the activity. If activity was not attempted, code reason: 7-Patient Refused. 9-Not Applicable-not attempted and the patient did not perform the activity before the current illness, exacerbation or injury. 10-Not Attempted due to Environmental Limitations-(lack of equipment, weather restraints, etc.). 88-Not Attempted due to Medical Conditions or Safety Concerns. Other Treatment Pt completed stretching and strengthening to B shldrs. Pt has decreased AROM and strength to L UE due to previous CVA. Pt does have functional movement in L UE and uses during functional tasks. Pt tolerated stretching with dowel steve and arm pulleys for 20 min. Pt then propelled w/c back to room independently using B LE's. Max A for sit to stand then min A using FWW to transfer from w/c to bed. SBA for EOB to supine. After session, pt lying in bed with call light/phone in reach. Nrsg aware of pt's position. OT Short Term Goals Short Term Goals Time Frame: Dec 24, 2022 Toileting hygiene: 4 Shower/bathe self: 4 Upper body dressin Lower body dressin Putting on/taking off footwear: 3 OT [facility] Goals [employer] Sales Consultant Goals Time Frame: Jan 07, 2023 Acute change in mental status: 0 Inattention: 0 Disorganized thinkin Altered level of consciousness: 0 Eating (QC): 6 Oral Hygiene (QC): 6 Toileting Hygiene (QC): 6 Shower/Bathe Self (QC): 6 Upper Body Dressing (QC): 6 Lower Body Dressing (QC): 6 On/Off Footwear (QC): 6 Additional Goals: 1-Demonstrate ADL Tasks, 2-Verbalize Understanding, 3-Imp roveStrength/Francesca 1=Demonstrate adherence to instructed precautions during ADL tasks. 2=Patient will verbalize/demonstrate understanding of assistive devices/modifications for ADL. 3=Patient will improve strength/tolerance for activity to enable patient to perform ADL's. OT Education/Plan Problem List/Assessment Assessment: Decreased Activ Tolerance, Decreased UE Strength, Impaired Bed Mobility, Impaired Self-Care Skills, Restricted Funct UE ROM Discharge Recommendations Plan/Recommendations: Continue POC Treatment Plan/Plan of Care Patient would benefit from OT for education, treatment and training to promote independence in ADL's, mobility, safety and/or upper extremity function for ADL's. Plan of Care: ADL Retraining, Functional Mobility, Group Exercise/Act as Ind, UE Funct Exercise/Act Treatment Duration: Jan 07, 2023 Frequency: At least 5 of 7 days/Wk (IRF) Estimated Hrs Per Day: 1.5 hours per day Agreement: Yes Rehab Potential: Guarded Time Start Time: 10:30 Stop Time: 11:00 DATE: Dec 17, 2022 Total Time Billed (hr/min): 30 Billed Treatment Time 1 visit-EX 2 (30 min) SUNIL DAMON Dec 17, 2022 11:29
[2022-12-17] MEDS: ENOXAPARIN 40 MG/0.4 ML (LOVENOX) SYR SC SCH (17:34)
[2022-12-17 20:09] VITALS: BP 113/56
[2022-12-17 21:03] VITALS: BP 113/56
[2022-12-17] MEDS: MELATONIN 3 MG TABLET PO PRN (21:29)
[2022-12-17] MEDS: LORazepam 0.5 MG (ATIVAN) TABLET PO PRN (21:29)
[2022-12-18] MEDS: DICYCLOMINE 10 MG (BENTYL) CAP PO SCH ×5 (00:49→23:25)
[2022-12-18] MEDS: LORazepam 0.5 MG (ATIVAN) TABLET PO PRN ×2 (01:36→21:42)
[2022-12-18] MEDS: MAGNESIUM OXIDE (MAG-OX)400 MG TAB PO SCH (06:05)
[2022-12-18] MEDS: PANTOPRAZOLE 40 MG (PROTONIX) TAB PO SCH (06:05)
[2022-12-18] MEDS: FUROSEMIDE 40 MG (LASIX) TAB PO PRN (06:05)
[2022-12-18] MEDS: MULTIVIT W/MINERALS TAB (THERAGRAN M) PO SCH (06:05)
[2022-12-18 08:04] VITALS: BP 126/59
[2022-12-18] MEDS: MICONAZOLE 2% POWDER (DESENEX AF) 90 GM TOP SCH ×2 (08:29→21:43)
[2022-12-18] MEDS: polyethylene glycoL POWDER 17 GM (MIRALAX) PACK PO SCH ×2 (08:29→21:43)
[2022-12-18] MEDS: FOLIC ACID 1 MG TAB PO SCH (08:29)
[2022-12-18] MEDS: DOCUSATE SODIUM 100 MG (COLACE) CAP PO SCH ×2 (08:29→21:42)
[2022-12-18] MEDS: ATENOLOL 25 MG (TENORMIN) TAB PO SCH (08:29)
[2022-12-18] MEDS: METOCLOPRAMIDE INJ 10 MG/2 ML (REGLAN) IVP SCH ×4 (08:29→21:42)
[2022-12-18] MEDS: KCL 10 MEQ TAB (MICRO K) PO SCH ×3 (08:29→17:40)
[2022-12-18] MEDS: SENNOSIDES 8.6 MG (SENOKOT) TAB PO SCH ×2 (08:29→21:42)
--- NOTE | 2022-12-18 09:04 | Physical Therapy Daily Note ---
PT Daily Note-Current Subjective Patient in bed pre tx, agrees to PT, has 3/10 pain in abdomen. Patient states he has had a lot of stool softeners and would prefer to do exercises in bed at this time. Pain Section J - Health Conditions 1. Rarely or not at all 2. Occasionally 3. Frequently 4. Almost constantly 8. Unable to answer Pain Effect on Sleep: 1 Pain Interference with Therapy: 2 Pain Interference w/Day-to-Day: 2 Appearance Patient in bed post tx with nurse call, phone, tray, all needs met. Mental Status Patient Orientation: Person, Place, Situation Transfers SCALE: Activities may be completed with or without assistive devices. 2-Jckdnfqvae-zvpgcdd completes the activity by him/herself with no assistance from a helper. 5-Set-up or Clean-up Assistance-helper sets up or cleans up; patient completes activity. [place] assists only prior to or following the activity. 4-Supervision or Touching Assistance-helper provides verbal cues and/or touching/steadying and/or contact guard assistance as patient completes activity. Assistance may be provided throughout the activity or intermittently. 3-Partial/Moderate Assistance-helper does LESS THAN HALF the effort. [place] lif ts, holds or supports trunk or limbs, but provides less than half the effort. 2-Substantial/Maximal Assistance-helper does MORE THAN HALF the effort. [place] lifts or holds trunk or limbs and provides more than half the effort. 5-Bsjosqdpu-utivmw does ALL the effort. Patient does none of the effort to complete the activity. Or, the assistance of 2 or more helpers is required for the patient to complete the activity. If activity was not attempted, code reason: 7-Patient Refused. 9-Not Applicable-not attempted and the patient did not perform the activity before the current illness, exacerbation or injury. 10-Not Attempted due to Environmental Limitations-(lack of equipment, weather restraints, etc.). 88-Not Attempted due to Medical Conditions or Safety Concerns. Exercises Supine Ex: Ankle pumps, Quad Set, Glut sets, Heel Slides, Short Arc Quads, S traight leg raise (AAROM), Hip abd/add Supine Reps: 20 Treatments LE exercise Assessment Current Status: Fair Progress improved AROM PT Short Term Goals Short Term Goals Time Frame: Dec 17, 2022 Sit to lyin Lying to sitting on side of be: 4 Sit to stand: 3 (mod assist) Chair/oil-zg-wwsiy transfer: 3 (mod assist) Walk 10 feet: 3 PT Senior Living Goals Senior Living Goals PT Senior Living Goals Time Frame: Dec 24, 2022 Roll Left & Right (QC): 6 Sit to Lying (QC): 6 Lying-Sitting on Side/Bed(QC): 6 Sit to Stand (QC): 4 (CGA) Chair/Ecm-rm-Hbckj Xfer(QC): 4 (CGA) Toilet Transfer (QC): 4 (CGA) Car Transfer (QC): 3 (Diana) Does the Patient Walk: No and Walking Goal IS indicated Walk 10 feet (QC): 4 (CGA) Walk 50ft with 2 Turns (QC): 4 (CGA) Walk 150 ft (QC): 88 Walking 10ft on Uneven Surface: 4 (CA) 1 Step (curb) (QC): 88 4 Steps (QC): 88 12 Steps (QC): 88 Picking up an Object (QC): 4 (CGA using a instrumental music teacher) Wheel 50 feet with 2 turns (QC: 4 (SBA) Wheel 150 feet: 4 (SBA) PT Plan Problem List Problem List: Activity Tolerance, Functional Strength, Safety, Balance, Gait, Transfer, Bed Mobility, ROM Treatment/Plan Treatment Plan: Continue Plan of Care Treatment Plan: Bed Mobility, Education, Functional Activity Francesca, Functional Strength, Group Therapy, Gait, Safety, Therapeutic Exercise, Transfers Treatment Duration: Dec 24, 2022 Frequency: At least 5 of 7 days/Wk (IRF) Estimated Hrs Per Day: 1.5 hours per day Patient and/or Family Agrees t: Yes Safety Risks/Education Patient Education: Correct Positioning, Safety Issues Teaching Recipient: Patient Teaching Methods: Demonstration, Discussion Response to Teaching: Reinforcement Needed Time Time In: 850 Time Out: 901 DATE: Dec 18, 2022 Total Billed Treatment Time: 11 Total Billed Treatment 1 visit EX 11' KRISTINE HAWK PT Dec 18, 2022 09:04
[2022-12-18] MEDS: RT-ALBUTEROL SULF 2.5 MG/3 ML PRE-MIX VIAL INH SCH ×2 (10:30→21:20)
--- NOTE | 2022-12-18 12:51 | PM&R Progress Note ---
Subjective HPI/CC On Admission Date Seen by Provider: Dec 18, 2022 Time Seen by Provider: 12:30 Subjective/Events-last exam 12/18/2022: Patient having very slow recovery Had a conversation with outside room and recommended speaking to SW regarding Medicare sign up to move to [place] Patient really meets criteria for Hospice if this status continues End stage alcoholism 12/17/2022: Improved abdominal issue Passing gas No pain reported Minimized pain meds 12/16/2022: Patient improving a bit every day Legs wrapped More gas passed Abdomen is less taut BM+ 12/15/2022: Ileus still present Slowly getting better More upbeat today Edema improved with RIGOBERTO wraps 12/14/2022: Improved overall Feels like he is getting on track Was tearful yesterday Ileus seems to be improved 12/13/2022: Doing a bit better Abdominal distention is still an issue Every time he is hospitalized he has the ileus issue Minimizing narcotics which drives the ileus 12/12/2022: Had a long conversation about alcoholism and complications Ileus still remains Loose stools noted Discontinue the fentanyl IV since narcotics are causing the ileus to become worse Patient may need nursing facility I did update him on this fact because he just thinks that he will just remain in a wheelchair but he cannot possibly take care of his ADLs in the level he is at right now 12/11/2022: Ileus remains Abdomen is taut Patient really cannot walk well Overall very declined Will continue antibiotics for 1 more day Supportive care will continue Review of Systems General: Fatigue, Malaise Cardiovascular: Edema Gastrointestinal: Abdominal Pain Objective Exam Vital Signs Vital Signs Date Time Temp Pulse Resp B/P (MAP) Pulse Ox O2 Delivery O2 Flow Rate FiO2 12/18/22 21:21 92 Room Air 12/18/22 19:39 37.1 97 18 126/60 (82) 12/17/22 21:03 21 Capillary Refill : General Appearance: No Apparent Distress, Obese HEENT: Moist Mucous Membranes Neck: Full Range of Motion, Normal Inspection, Non Tender, Supple, Carotid Bruit Respiratory: Chest Non Tender, Lungs Clear, No Accessory Muscle Use, No Respiratory Distress Cardiovascular: Regular Rate, Rhythm, No Murmur Gastrointestinal: Normal Bowel Sounds, No Organomegaly, No Pulsatile Mass, Distended, Tenderness Back: Normal Inspection, No CVA Tenderness, No Vertebral Tenderness, Decreased Range of Motion (left) Extremity: Calf Tenderness, Other (Chronic venous stasis changes in lower legs bilaterally) Neurologic/Psychiatric: Alert, Oriented x3, Motor Weakness (left sided weakness) Skin: Warm/Dry, Ecchymosis (On arms and legs) Lymphatic: No Adenopathy Results/Procedures Lab Patient resulted labs reviewed. FIM Transfers Therapy Code Descriptions/Definitions Functional [place] Measure: 0=Not Assessed/NA 4=Minimal Assistance 1=Total Assistance 5=Supervision or Setup 2=Maximal Assistance 6=Modified [place] 3=Moderate Assistance 7=Complete IndependenceSCALE: Activities may be completed with or without assistive devices. 4-Faqohcmycz-mkgnzvo completes the activity by him/herself with no assistance from a helper. 5-Set-up or Clean-up Assistance-helper sets up or cleans up; patient completes activity. [place] assists only prior to or following the activity. 4-Supervision or Touching Assistance-helper provides verbal cues and/or touching/steadying and/or contact guard assistance as patient completes activity. Assistance may be provided throughout the activity or intermittently. 3-Partial/Moderate Assistance-helper does LESS THAN HALF the effort. [place] lifts, holds or supports trunk or limbs, but provides less than half the effort. 2-Substantial/Maximal Assistance-helper does MORE THAN HALF the effort. [place] lifts or holds trunk or limbs and provides more than half the effort. 2-Gvisnvdkv-kedixs does ALL the effort. Patient does none of the effort to complete the activity. Or, the assistance of 2 or more helpers is required for the patient to complete the activity. If activity was not attempted, code reason: 7-Patient Refused. 9-Not Applicable-not attempted and the patient did not perform the activity before the current illness, exacerbation or injury. 10-Not Attempted due to Environmental Limitations-(lack of equipment, weather restraints, etc.). 88-Not Attempted due to Medical Conditions or Safety Concerns. Roll Left to Right (QC): 4 Sit to Lying (QC): 4 Sit to Stand (QC): 3 Chair/Snz-vq-Qwyvc Xfer(QC): 2 Car Transfer (QC): 2 Gait Training Does the Patient Walk?: Yes Distance: 20', 10'x2 Walk 10 feet (QC): 4 Walk 50 ft with 2 Turns(QC): 88 Walk 150 ft (QC): 88 Walking 10ft/uneven surface-QC: 88 Gait Persons Needed: 1 Gait Assistive Device: FWW Wheelchair Training Does the Pt Use a Wheelchair?: Yes Wheel 50 ft with 2 turns (QC): 4 Wheel 150 ft (QC): 1 Type of Wheelchair: Manual Stair Training 1 Step (curb) (QC): 88 4 Steps (QC): 88 12 Steps (QC): 88 Balance Picking up an Object (QC): 88 ADL-Treatment Eating (QC): 6 Oral Hygiene (QC): 6 Shower/Bathe Self (QC): 3 (Assist to dry buttocks and lower legs/feet) Upper Body Dressing (QC): 3 (mod A) Lower Body Dressing (QC): 2 On/Off Footwear (QC): 2 Toileting Hygiene (QC): 1 Toilet Transfer (QC): 1 Assessment/Plan Assessment and Plan Assess & Plan/Chief Complaint Assessment: Debility Pneumonia failed 4 outpatient treatments from Urgent Care in past 6 weeks- completed meropenem on 12/12/2022 Ileus Elevated lactic acidosis not due to sepsis but due to alcoholic liver disease Remote hx of left-sided rib fractures and splenic laceration Prior CVA with left-sided weakness Multiple falls at home chronic Alcoholism Anxiety Tachycardia Gout COPD Former smoker Edema positional type Poor protein status causing third-spacing Neuropathy Plan: Pain control Monitor closely Lovenox Ambulate 12/11/2022: Hep-Lock IV fluid Complete antibiotics 12/12/2022: Ileus management DC fentanyl Minimize oxycodone 12/13/2022: Minimize narcs 12/14/2022: Improved overall 12/15/2022: A bit improved today Alcohol cessation counseled 12/16/2022: Improving 12/17/2022: Ileus improved 12/18/2022: Prognosis poor May need NH at DC (1) Debility Status: Acute (2) Left lower lobe pneumonia Status: Acute (3) Sacral decubitus ulcer Status: Acute (4) Alcohol dependence Status: Acute (5) Colon distention (6) Left-sided weakness Status: Acute (7) Hypertension Status: Chronic (8) Neuropathy Status: Chronic (9) Anxiety Status: Chronic (10) Gout (11) COPD (chronic obstructive pulmonary disease) HARDY CAMPBELL DO Dec 18, 2022 12:51
[2022-12-18] MEDS: BISACODYL 10 MG SUPP (DULCOLAX) PR PRN (14:52)
[2022-12-18] MEDS: ENOXAPARIN 40 MG/0.4 ML (LOVENOX) SYR SC SCH (17:46)
[2022-12-18 19:39] VITALS: BP 126/60
[2022-12-18] MEDS: MELATONIN 3 MG TABLET PO PRN (21:42)
[2022-12-19] MEDS: PANTOPRAZOLE 40 MG (PROTONIX) TAB PO SCH (05:52)
[2022-12-19] MEDS: MAGNESIUM OXIDE (MAG-OX)400 MG TAB PO SCH (05:52)
[2022-12-19] MEDS: FUROSEMIDE 40 MG (LASIX) TAB PO PRN (05:52)
[2022-12-19] MEDS: DICYCLOMINE 10 MG (BENTYL) CAP PO SCH ×3 (05:52→17:04)
[2022-12-19] MEDS: MULTIVIT W/MINERALS TAB (THERAGRAN M) PO SCH (05:52)
[2022-12-19 07:13] VITALS: BP 128/68
--- NOTE | 2022-12-19 07:33 | PM&R Progress Note ---
Subjective HPI/CC On Admission Date Seen by Provider: Dec 19, 2022 Time Seen by Provider: 12:00 Subjective/Events-last exam 12/19/2022: Doing better Ileus improved No pain reported No pain pills for 5 days 12/18/2022: Patient having very slow recovery Had a conversation with outside room and recommended speaking to SW regarding Medicare sign up to move to [place] Patient really meets criteria for Hospice if this status continues End stage alcoholism 12/17/2022: Improved abdominal issue Passing gas No pain reported Minimized pain meds 12/16/2022: Patient improving a bit every day Legs wrapped More gas passed Abdomen is less taut BM+ 12/15/2022: Ileus still present Slowly getting better More upbeat today Edema improved with RIGOBERTO wraps 12/14/2022: Improved overall Feels like he is getting on track Was tearful yesterday Ileus seems to be improved 12/13/2022: Doing a bit better Abdominal distention is still an issue Every time he is hospitalized he has the ileus issue Minimizing narcotics which drives the ileus 12/12/2022: Had a long conversation about alcoholism and complications Ileus still remains Loose stools noted Discontinue the fentanyl IV since narcotics are causing the ileus to become worse Patient may need nursing facility I did update him on this fact because he just thinks that he will just remain in a wheelchair but he cannot possibly take care of his ADLs in the level he is at right now 12/11/2022: Ileus remains Abdomen is taut Patient really cannot walk well Overall very declined Will continue antibiotics for 1 more day Supportive care will continue Review of Systems General: Fatigue, Malaise Objective Exam Vital Signs Vital Signs Date Time Temp Pulse Resp B/P (MAP) Pulse Ox O2 Delivery O2 Flow Rate FiO2 12/19/22 08:59 96 18 97 Room Air 12/19/22 07:13 36.9 128/68 (88) 12/17/22 21:03 21 Capillary Refill : General Appearance: No Apparent Distress, Obese HEENT: Moist Mucous Membranes Neck: Full Range of Motion, Normal Inspection, Non Tender, Supple, Carotid Bruit Respiratory: Chest Non Tender, Lungs Clear, No Accessory Muscle Use, No Respiratory Distress Cardiovascular: Regular Rate, Rhythm, No Murmur Gastrointestinal: Normal Bowel Sounds, No Organomegaly, No Pulsatile Mass, D istended, Tenderness Back: Normal Inspection, No CVA Tenderness, No Vertebral Tenderness, Decreased Range of Motion (left) Extremity: Calf Tenderness, Other (Chronic venous stasis changes in lower legs bilaterally) Neurologic/Psychiatric: Alert, Oriented x3, Motor Weakness (left sided weakness) Skin: Warm/Dry, Ecchymosis (On arms and legs) Lymphatic: No Adenopathy Results/Procedures Lab Patient resulted labs reviewed. FIM Transfers Therapy Code Descriptions/Definitions Functional [place] Measure: 0=Not Assessed/NA 4=Minimal Assistance 1=Total Assistance 5=Supervision or Setup 2=Maximal Assistance 6=Modified [place] 3=Moderate Assistance 7=Complete IndependenceSCALE: Activities may be completed with or without assistive devices. 8-Nsibqfagfc-lpmduaf completes the activity by him/herself with no assistance from a helper. 5-Set-up or Clean-up Assistance-helper sets up or cleans up; patient completes activity. [place] assists only prior to or following the activity. 4-Supervision or Touching Assistance-helper provides verbal cues and/or touching/steadying and/or contact guard assistance as patient completes act ivity. Assistance may be provided throughout the activity or intermittently. 3-Partial/Moderate Assistance-helper does LESS THAN HALF the effort. [place] lifts, holds or supports trunk or limbs, but provides less than half the effort. 2-Substantial/Maximal Assistance-helper does MORE THAN HALF the effort. [place] lifts or holds trunk or limbs and provides more than half the effort. 0-Gstlicopa-dnkfku does ALL the effort. Patient does none of the effort to complete the activity. Or, the assistance of 2 or more helpers is required for the patient to complete the activity. If activity was not attempted, code reason: 7-Patient Refused. 9-Not Applicable-not attempted and the patient did not perform the activity before the current illness, exacerbation or injury. 10-Not Attempted due to Environmental Limitations-(lack of equipment, weather restraints, etc.). 88-Not Attempted due to Medical Conditions or Safety Concerns. Roll Left to Right (QC): 4 Sit to Lying (QC): 4 Sit to Stand (QC): 3 Chair/Tam-es-Xhfog Xfer(QC): 2 Car Transfer (QC): 2 Gait Training Does the Patient Walk?: Yes Distance: 20', 10'x2 Walk 10 feet (QC): 4 Walk 50 ft with 2 Turns(QC): 88 Walk 150 ft (QC): 88 Walking 10ft/uneven surface-QC: 88 Gait Persons Needed: 1 Gait Assistive Device: FWW Wheelchair Training Does the Pt Use a Wheelchair?: Yes Wheel 50 ft with 2 turns (QC): 4 Wheel 150 ft (QC): 1 Type of Wheelchair: Manual Stair Training 1 Step (curb) (QC): 88 4 Steps (QC): 88 12 Steps (QC): 88 Balance Picking up an Object (QC): 88 ADL-Treatment Eating (QC): 6 Oral Hygiene (QC): 6 Shower/Bathe Self (QC): 3 (Assist to dry buttocks and lower legs/feet) Upper Body Dressing (QC): 3 (mod A) Lower Body Dressing (QC): 2 On/Off Footwear (QC): 2 Toileting Hygiene (QC): 1 Toilet Transfer (QC): 1 Assessment/Plan Assessment and Plan Assess & Plan/Chief Complaint Assessment: Debility Pneumonia failed 4 outpatient treatments from Urgent Care in past 6 weeks- completed meropenem on 12/12/2022 Ileus Elevated lactic acidosis not due to sepsis but due to alcoholic liver disease Remote hx of left-sided rib fractures and splenic laceration Prior CVA with left-sided weakness Multiple falls at home chronic Alcoholism Anxiety Tachycardia Gout COPD Former smoker Edema positional type Poor protein status causing third-spacing Neuropathy Plan: Pain control Monitor closely Lovenox Ambulate 12/11/2022: Hep-Lock IV fluid Complete antibiotics 12/12/2022: Ileus management DC fentanyl Minimize oxycodone 12/13/2022: Minimize narcs 12/14/2022: Improved overall 12/15/2022: A bit improved today Alcohol cessation counseled 12/16/2022: Improving 12/17/2022: Ileus improved 12/18/2022: Prognosis poor May need NH at [place] 12/19/2022: Monitor closely (1) Debility Status: Acute (2) Left lower lobe pneumonia Status: Acute (3) Sacral decubitus ulcer Status: Acute (4) Alcohol dependence Status: Acute (5) Colon distention (6) Left-sided weakness Status: Acute (7) Hypertension Status: Chronic (8) Neuropathy Status: Chronic (9) Anxiety Status: Chronic (10) Gout (11) COPD (chronic obstructive pulmonary disease) HARDY CAMPBELL DO Dec 19, 2022 07:33
[2022-12-19] MEDS: RT-ALBUTEROL SULF 2.5 MG/3 ML PRE-MIX VIAL INH SCH ×2 (08:01→22:03)
[2022-12-19] MEDS: SENNOSIDES 8.6 MG (SENOKOT) TAB PO SCH ×2 (09:10→21:00)
[2022-12-19] MEDS: ATENOLOL 25 MG (TENORMIN) TAB PO SCH (09:10)
[2022-12-19] MEDS: DOCUSATE SODIUM 100 MG (COLACE) CAP PO SCH ×2 (09:10→21:00)
[2022-12-19] MEDS: FOLIC ACID 1 MG TAB PO SCH (09:10)
[2022-12-19] MEDS: KCL 10 MEQ TAB (MICRO K) PO SCH ×3 (09:10→17:04)
[2022-12-19] MEDS: METOCLOPRAMIDE INJ 10 MG/2 ML (REGLAN) IVP SCH ×4 (09:11→21:21)
[2022-12-19] MEDS: polyethylene glycoL POWDER 17 GM (MIRALAX) PACK PO SCH ×2 (09:11→21:00)
[2022-12-19] MEDS: MICONAZOLE 2% POWDER (DESENEX AF) 90 GM TOP SCH ×2 (09:11→21:21)
[2022-12-19] MEDS: CALCIUM CARBONATE 500 MG (TUMS) TAB.CHEW PO PRN (14:49)
[2022-12-19] MEDS: LORazepam 0.5 MG (ATIVAN) TABLET PO PRN ×2 (17:03→21:20)
[2022-12-19] MEDS: ENOXAPARIN 40 MG/0.4 ML (LOVENOX) SYR SC SCH (17:21)
[2022-12-19 20:00] VITALS: BP 119/59
[2022-12-19] MEDS: MELATONIN 3 MG TABLET PO PRN (21:20)
[2022-12-20 00:19] VITALS: BP 90/126
[2022-12-20] MEDS: DICYCLOMINE 10 MG (BENTYL) CAP PO SCH ×5 (00:19→23:06)
--- NOTE | 2022-12-20 05:08 | PM&R Progress Note ---
Subjective HPI/CC On Admission Date Seen by Provider: Dec 20, 2022 Time Seen by Provider: 08:30 Subjective/Events-last exam 12/20/2022: Doing better Declines NH placement Incontinence of bowel is an issue 12/19/2022: Doing better Ileus improved No pain reported No pain pills for 5 days 12/18/2022: Patient having very slow recovery Had a conversation with outside room and recommended speaking to [facility] Medicare sign up to move to [place] Patient really meets criteria for Hospice if this status continues End stage alcoholism 12/17/2022: Improved abdominal issue Passing gas No pain reported Minimized pain meds 12/16/2022: Patient improving a bit every day Legs wrapped More gas passed Abdomen is less taut BM+ 12/15/2022: Ileus still present Slowly getting better More upbeat today Edema improved with RIGOBERTO wraps 12/14/2022: Improved overall Feels like he is getting on track Was tearful yesterday Ileus seems to be improved 12/13/2022: Doing a bit better Abdominal distention is still an issue Every time he is hospitalized he has the ileus issue Minimizing narcotics which drives the ileus 12/12/2022: Had a long conversation about alcoholism and complications Ileus still remains Loose stools noted Discontinue the fentanyl IV since narcotics are causing the ileus to become worse Patient may need nursing facility I did update him on this fact because he just thinks that he will just remain in a wheelchair but he cannot possibly take care of his ADLs in the level he is at right now 12/11/2022: Ileus remains Abdomen is taut Patient really cannot walk well Overall very declined Will continue antibiotics for 1 more day Supportive care will continue Review of Systems General: Fatigue, Malaise Objective Exam Vital Signs Vital Signs Date Time Temp Pulse Resp B/P (MAP) Pulse Ox O2 Delivery O2 Flow Rate FiO2 12/20/22 22:01 94 Room Air 12/20/22 20:53 37.1 97 20 117/57 (77) 12/20/22 00:19 21 Capillary Refill : General Appearance: No Apparent Distress, Obese HEENT: Moist Mucous Membranes Neck: Full Range of Motion, Normal Inspection, Non Tender, Supple, Carotid Bruit Respiratory: Chest Non Tender, Lungs Clear, No Accessory Muscle Use, No Respiratory Distress Cardiovascular: Regular Rate, Rhythm, No Murmur Gastrointestinal: Normal Bowel Sounds, No Organomegaly, No Pulsatile Mass, Distended, Tenderness Back: Normal Inspection, No CVA Tenderness, No Vertebral Tenderness, Decreased Range of Motion (left) Extremity: Calf Tenderness, Other (Chronic venous stasis changes in lower legs bilaterally) Neurologic/Psychiatric: Alert, Oriented x3, Motor Weakness (left sided weakne ss) Skin: Warm/Dry, Ecchymosis (On arms and legs) Lymphatic: No Adenopathy Results/Procedures Lab Laboratory Tests 12/20/22 06:00 12/20/22 07:03 Patient resulted labs reviewed. FIM Transfers Therapy Code Descriptions/Definitions Functional [place] Measure: 0=Not Assessed/NA 4=Minimal Assistance 1=Total Assistance 5=Supervision or Setup 2=Maximal Assistance 6=Modified [place] 3=Moderate Assistance 7=Complete IndependenceSCALE: Activities may be completed with or without assistive devices. 8-Legkvbbcke-xyfxfgi completes the activity by him/herself with no assistance from a helper. 5-Set-up or Clean-up Assistance-helper sets up or cleans up; patient completes activity. [place] assists only prior to or following the activity. 4-Supervision or Touching Assistance-helper provides verbal cues and/or touching/steadying and/or contact guard assistance as patient completes activity. Assistance may be provided throughout the activity or intermittently. 3-Partial/Moderate Assistance-helper does LESS THAN HALF the effort. [place] lifts, holds or supports trunk or limbs, but provides less than half the effort. 2-Substantial/Maximal Assistance-helper does MORE THAN HALF the effort. [place] lifts or holds trunk or limbs and provides more than half the effort. 2-Wgmjnumpd-bqptwp does ALL the effort. Patient does none of the effort to compl ete the activity. Or, the assistance of 2 or more helpers is required for the patient to complete the activity. If activity was not attempted, code reason: 7-Patient Refused. 9-Not Applicable-not attempted and the patient did not perform the activity before the current illness, exacerbation or injury. 10-Not Attempted due to Environmental Limitations-(lack of equipment, weather restraints, etc.). 88-Not Attempted due to Medical Conditions or Safety Concerns. Roll Left to Right (QC): 4 Sit to Lying (QC): 4 Sit to Stand (QC): 3 Chair/Tuw-id-Gnorf Xfer(QC): 2 Car Transfer (QC): 2 Gait Training Does the Patient Walk?: Yes Distance: 20', 10'x2 Walk 10 feet (QC): 4 Walk 50 ft with 2 Turns(QC): 88 Walk 150 ft (QC): 88 Walking 10ft/uneven surface-QC: 88 Gait Persons Needed: 1 Gait Assistive Device: FWW Wheelchair Training Does the Pt Use a Wheelchair?: Yes Wheel 50 ft with 2 turns (QC): 4 Wheel 150 ft (QC): 1 Type of Wheelchair: Manual Stair Training 1 Step (curb) (QC): 88 4 Steps (QC): 88 12 Steps (QC): 88 Balance Picking up an Object (QC): 88 ADL-Treatment Eating (QC): 6 Oral Hygiene (QC): 6 Shower/Bathe Self (QC): 3 (Assist to dry buttocks and lower legs/feet) Upper Body Dressing (QC): 3 (mod A) Lower Body Dressing (QC): 2 On/Off Footwear (QC): 2 Toileting Hygiene (QC): 1 Toilet Transfer (QC): 1 Assessment/Plan Assessment and Plan Assess & Plan/Chief Complaint Assessment: Debility Pneumonia failed 4 outpatient treatments from Urgent Care in past 6 weeks- completed meropenem on 12/12/2022 Ileus Elevated lactic acidosis not due to sepsis but due to alcoholic liver disease Remote hx of left-sided rib fractures and splenic laceration Prior CVA with left-sided weakness Multiple falls at home chronic Alcoholism Anxiety Tachycardia Gout COPD Former smoker Edema positional type Poor protein status causing third-spacing Neuropathy Plan: Pain control Monitor closely Lovenox Ambulate 12/11/2022: Hep-Lock IV fluid Complete antibiotics 12/12/2022: Ileus management DC fentanyl Minimize oxycodone 12/13/2022: Minimize narcs 12/14/2022: Improved overall 12/15/2022: A bit improved today Alcohol cessation counseled 12/16/2022: Improving 12/17/2022: Ileus improved 12/18/2022: Prognosis poor May need NH at [place] 12/19/2022: Monitor closely 12/20/2022: Supportive care will continue (1) Debility Status: Acute (2) Left lower lobe pneumonia Status: Acute (3) Sacral decubitus ulcer Status: Acute (4) Alcohol dependence Status: Acute (5) Colon distention (6) Left-sided weakness Status: Acute (7) Hypertension Status: Chronic (8) Neuropathy Status: Chronic (9) Anxiety Status: Chronic (10) Gout (11) COPD (chronic obstructive pulmonary disease) HARDY CAMPBELL DO Dec 20, 2022 05:08
[2022-12-20] MEDS: MULTIVIT W/MINERALS TAB (THERAGRAN M) PO SCH (06:11)
[2022-12-20] MEDS: MAGNESIUM OXIDE (MAG-OX)400 MG TAB PO SCH (06:11)
[2022-12-20] MEDS: PANTOPRAZOLE 40 MG (PROTONIX) TAB PO SCH (06:11)
[2022-12-20 06:33] LABS: ALBUMIN 2.5 GM/DL (3.2-4.5); POTASSIUM 3.8 MMOL/L (3.6-5.0)
[2022-12-20 06:34] LABS: CALCIUM 8.1 MG/DL (8.5-10.1)
[2022-12-20 06:36] LABS: TOTAL PROTEIN 5.7 GM/DL (6.4-8.2)
[2022-12-20 06:38] LABS: BILIRUBIN,TOTAL 0.6 MG/DL (0.1-1.0)
[2022-12-20 06:39] LABS: CREATININE SERUM 0.63 MG/DL (0.60-1.30)
[2022-12-20] MEDS: RT-ALBUTEROL SULF 2.5 MG/3 ML PRE-MIX VIAL INH SCH ×2 (06:51→22:01)
[2022-12-20 07:19] VITALS: BP 136/69
[2022-12-20 07:20] LABS: BASOPHILS % (AUTO) 0 % (0-10); EOSINOPHILS # (AUTO) 0.1 10^3/uL (0.0-0.3); EOSINOPHILS % (AUTO) 1 % (0-10); HEMATOCRIT 37 % (40-54); HEMOGLOBIN 12.5 g/dL (13.3-17.7); LYMPHOCYTES # (AUTO) 1.2 10^3/uL (1.0-4.0); LYMPHOCYTES % (AUTO) 14 % (12-44); MEAN CORPUSCULAR HEMOGLOBIN 32 pg (25-34); MEAN CORPUSCULAR HGB CONC 34 g/dL (32-36); MEAN CORPUSCULAR VOLUME 94 fL (80-99); MEAN PLATELET VOLUME 9.8 fL (9.0-12.2); MONOCYTES # (AUTO) 0.8 10^3/uL (0.0-1.0); MONOCYTES % (AUTO) 10 % (0-12); NEUTROPHILS # (AUTO) 6.3 10^3/uL (1.8-7.8); NEUTROPHILS % (AUTO) 75 % (42-75); PLATELET COUNT 213 10^3/uL (130-400); WHITE BLOOD COUNT 8.4 10^3/uL (4.3-11.0)
[2022-12-20] MEDS: FOLIC ACID 1 MG TAB PO SCH (08:03)
[2022-12-20] MEDS: METOCLOPRAMIDE INJ 10 MG/2 ML (REGLAN) IVP SCH ×4 (08:04→20:41)
[2022-12-20] MEDS: DOCUSATE SODIUM 100 MG (COLACE) CAP PO SCH ×2 (08:04→19:40)
[2022-12-20] MEDS: ATENOLOL 25 MG (TENORMIN) TAB PO SCH (08:04)
[2022-12-20] MEDS: KCL 10 MEQ TAB (MICRO K) PO SCH ×3 (08:04→17:18)
[2022-12-20] MEDS: polyethylene glycoL POWDER 17 GM (MIRALAX) PACK PO SCH ×2 (08:05→19:40)
[2022-12-20] MEDS: SENNOSIDES 8.6 MG (SENOKOT) TAB PO SCH ×2 (08:06→19:40)
[2022-12-20] MEDS: MICONAZOLE 2% POWDER (DESENEX AF) 90 GM TOP SCH ×2 (08:08→20:42)
--- NOTE | 2022-12-20 09:29 | Physical Therapy Daily Note ---
PT Daily Note-Current Subjective Patient in bed pre tx, agrees to PT, has no complaints of pain at rest. Will be co-treating with OT due to poor patient mobility, strength, endurance, severe debility, coordinate UE and LE during activity, safety and reduce risk of falls. Pain Section J - Health Conditions 1. Rarely or not at all 2. Occasionally 3. Frequently 4. Almost constantly 8. Unable to answer Pain Effect on Sleep: 1 Pain Interference with Therapy: 2 Pain Interference w/Day-to-Day: 2 Appearance Patient in WC at bedside post tx with nurse call, phone, tray, all needs met. Mental Status Patient Orientation: Person, Place, Situation Transfers SCALE: Activities may be completed with or without assistive devices. 6-Xuwkritgva-fcifxnu completes the activity by him/herself with no assistance from a helper. 5-Set-up or Clean-up Assistance-helper sets up or cleans up; patient completes activity. [place] assists only prior to or following the activity. 4-Supervision or Touching Assistance-helper provides verbal cues and/or touching/steadying and/or contact guard assistance as patient completes activity. Assistance may be provided throughout the activity or intermittently. 3-Partial/Moderate Assistance-helper does LESS THAN HALF the effort. [place] lifts, holds or supports trunk or limbs, but provides less than half the effort. 2-Substantial/Maximal Assistance-helper does MORE THAN HALF the effort. [place] lifts or holds trunk or limbs and provides more than half the effort. 8-Bkvqbpwht-porspa does ALL the effort. Patient does none of the effort to c omplete the activity. Or, the assistance of 2 or more helpers is required for the patient to complete the activity. If activity was not attempted, code reason: 7-Patient Refused. 9-Not Applicable-not attempted and the patient did not perform the activity before the current illness, exacerbation or injury. 10-Not Attempted due to Environmental Limitations-(lack of equipment, weather restraints, etc.). 88-Not Attempted due to Medical Conditions or Safety Concerns. Roll Left & Right (QC): 4 Lying to Sitting/Side of Bed(Q: 3 Sit to Stand (QC): 3 Chair/Bft-lb-Cnzgl Xfer(QC): 3 Toilet Transfer (QC): 3 mod assist for sit to stand, min assist for stand pivot transfers. Patient sits to the side of the bed, states he should probably use the commode, transfers to commode and tries to have a BM but is unsuccessful. Patient ambulates about 5' from the commode to go into the restroom and has a BM on the floor, patient sits and everything is cleaned, he then ambulates into the restroom and onto a commode in the shower. Patient showers and dresses. Patient is then taken to therapy gym for ambulation. Gait Training Distance: 20', 30'x2 Walk 10 feet (QC): 4 Gait Assistive Device: FWW WC follow, unsteady, short steps, shaky, slow ambulation Wheelchair Training Does the Pt Use a Wheelchair?: Yes Wheel 50 ft with 2 turns (QC): 4 Type of Wheelchair: Manual 100' Treatments PT performed bed mobility and transfers, ambulation, positioning and transfers and safety during bathing and dressing and toileting, WC mobility, OT performed bathing and dressing, toileting, cleaning, UE positioning and safety during activity. Assessment Current Status: Fair Progress improving ambulation, still needs frequent rest breaks and is having incontinent bowel movements PT Short Term Goals Short Term Goals Time Frame: Dec 17, 2022 Sit to lyin Lying to sitting on side of be: 4 Sit to stand: 3 (mod assist) Chair/wev-wi-cnytu transfer: 3 (mod assist) Walk 10 feet: 3 PT Shelter Goals Glue Specialty Supervisor Goals PT Shelter Goals Time Frame: Dec 24, 2022 Roll Left & Right (QC): 6 Sit to Lying (QC): 6 Lying-Sitting on Side/Bed(QC): 6 Sit to Stand (QC): 4 (CGA) Chair/Vqk-ms-Gjatp Xfer(QC): 4 (CGA) Toilet Transfer (QC): 4 (CGA) Car Transfer (QC): 3 (Diana) Does the Patient Walk: No and Walking Goal IS indicated Walk 10 feet (QC): 4 (CGA) Walk 50ft with 2 Turns (QC): 4 (CGA) Walk 150 ft (QC): 88 Walking 10ft on Uneven Surface: 4 (CA) 1 Step (curb) (QC): 88 4 Steps (QC): 88 12 Steps (QC): 88 Picking up an Object (QC): 4 (CGA using a student ambassador) Wheel 50 feet with 2 turns (QC: 4 (SBA) Wheel 150 feet: 4 (SBA) PT Plan Problem List Problem List: Activity Tolerance, Functional Strength, Safety, Balance, Gait, Transfer, Bed Mobility, ROM Treatment/Plan Treatment Plan: Continue Plan of Care Treatment Plan: Bed Mobility, Education, Functional Activity Francesca, Functional Strength, Group Therapy, Gait, Safety, Therapeutic Exercise, Transfers Treatment Duration: Dec 24, 2022 Frequency: At least 5 of 7 days/Wk (IRF) Estimated Hrs Per Day: 1.5 hours per day Patient and/or Family Agrees t: Yes Safety Risks/Education Patient Education: Gait Training, Transfer Techniques, Correct Positioning, W/C Management, Safety Issues Teaching Recipient: Patient Teaching Methods: Demonstration, Discussion Response to Teaching: Reinforcement Needed Time Time In: 0900 Time Out: 1030 DATE: Dec 20, 2022 Total Billed Treatment Time: 90 Total Billed Treatment 1 visit FA 90' co-treated for 90' KRISTINE HAWK PT Dec 20, 2022 09:29
--- NOTE | 2022-12-20 11:13 | Occupational Ther Daily Note ---
OT Current Status-Daily Note Subjective Pt alert, lying in bed. Pt agrees to therapy. No c/o pain. [place] with PT ([id number]), skills of 2 clinicians required to decrease fall risk, increase activity tolerance and mobility. PT focusing on transfers, ambulation and mobility while OT focusing on functional mobility and ADLs. Mental Status/Objective Patient Orientation: Person, Place, Time, Situation Attachments: IV ADL-Treatment Supine to EOB, SBA. Pt sat EOB independently. Pt began to ambulate with PT using FWW to bathroom and was incontinent of bowel. Placed BSC under pt. Pt required assist to manipulate clothing and cleanse after BM. Pt ambulated to shower sitting on BSC using grabbars, hand held shower and LH sponge. Mod A for sit to stand from higher surfaces. See PT notes for assist level with ambulation and distance of ambulation. After session, pt sitting in w/c with call light/phone in reach. All needs met in room. Therapy Code Descriptions/Definitions Functional [place] Measure: 0=Not Assessed/NA 4=Minimal Assistance 1=Total Assistance 5=Supervision or Setup 2=Maximal Assistance 6=Modified [place] 3=Moderate Assistance 7=Complete IndependenceSCALE: Activities may be completed with or without assistive devices. 5-Naaintkudf-bpuvqxi completes the activity by him/herself with no assistance from a helper. 5-Set-up or Clean-up Assistance-helper sets up or cleans up; patient completes activity. [place] assists only prior to or following the activity. 4-Supervision or Touching Assistance-helper provides verbal cues and/or to uching/steadying and/or contact guard assistance as patient completes activity. Assistance may be provided throughout the activity or intermittently. 3-Partial/Moderate Assistance-helper does LESS THAN HALF the effort. [place] lifts, holds or supports trunk or limbs, but provides less than half the effort. 2-Substantial/Maximal Assistance-helper does MORE THAN HALF the effort. [place] lifts or holds trunk or limbs and provides more than half the effort. 4-Rttnfvloi-olvqju does ALL the effort. Patient does none of the effort to complete the activity. Or, the assistance of 2 or more helpers is required for the patient to complete the activity. If activity was not attempted, code reason: 7-Patient Refused. 9-Not Applicable-not attempted and the patient did not perform the activity before the current illness, exacerbation or injury. 10-Not Attempted due to Environmental Limitations-(lack of equipment, weather restraints, etc.). 88-Not Attempted due to Medical Conditions or Safety Concerns. Shower/Bathe Self (QC): 3 Upper Body Dressing (QC): 5 Lower Body Dressing (QC): 3 On/Off Footwear: 2 OT Short Term Goals Short Term Goals Time Frame: Dec 24, 2022 Toileting hygiene: 4 Shower/bathe self: 4 Upper body dressin Lower body dressin Putting on/taking off footwear: 3 OT Assisted Goals Assisted Goals Time Frame: Jan 07, 2023 Acute change in mental status: 0 Inattention: 0 Disorganized thinkin Altered level of consciousness: 0 Eating (QC): 6 Oral Hygiene (QC): 6 Toileting Hygiene (QC): 6 Shower/Bathe Self (QC): 6 Upper Body Dressing (QC): 6 Lower Body Dressing (QC): 6 On/Off Footwear (QC): 6 Additional Goals: 1-Demonstrate ADL Tasks, 2-Verbalize Understanding, 3- ImproveStrength/Francesca 1=Demonstrate adherence to instructed precautions during ADL tasks. 2=Patient will verbalize/demonstrate understanding of assistive devices/modifications for ADL. 3=Patient will improve strength/tolerance for activity to enable patient to perform ADL's. OT Education/Plan Problem List/Assessment Assessment: Decreased Activ Tolerance, Impaired Cognition, Impaired Self-Care Skills Discharge Recommendations Plan/Recommendations: Continue POC Treatment Plan/Plan of Care Patient would benefit from OT for education, treatment and training to promote independence in ADL's, mobility, safety and/or upper extremity function for ADL's. Plan of Care: ADL Retraining, Functional Mobility, Group Exercise/Act as Ind, UE Funct Exercise/Act Treatment Duration: Jan 07, 2023 Frequency: At least 5 of 7 days/Wk (IRF) Estimated Hrs Per Day: 1.5 hours per day Agreement: Yes Rehab Potential: Guarded Time Start Time: 09:00 Stop Time: 10:30 DATE: Dec 20, 2022 Total Time Billed (hr/min): 90 Billed Treatment Time 1 visit-ADL 4 (60 min) FA 2 (30 min) co-treat with PT [id number] SUNIL DAMON Dec 20, 2022 11:13
[2022-12-20] MEDS: ENOXAPARIN 40 MG/0.4 ML (LOVENOX) SYR SC SCH (17:19)
[2022-12-20] MEDS: LORazepam 0.5 MG (ATIVAN) TABLET PO PRN ×2 (19:02→23:06)
[2022-12-20] MEDS: MELATONIN 3 MG TABLET PO PRN (20:41)
[2022-12-20 20:53] VITALS: BP 117/57
[2022-12-21] MEDS: MULTIVIT W/MINERALS TAB (THERAGRAN M) PO SCH (06:24)
[2022-12-21] MEDS: MAGNESIUM OXIDE (MAG-OX)400 MG TAB PO SCH (06:24)
[2022-12-21] MEDS: DICYCLOMINE 10 MG (BENTYL) CAP PO SCH ×4 (06:24→22:47)
[2022-12-21] MEDS: PANTOPRAZOLE 40 MG (PROTONIX) TAB PO SCH (06:24)
--- NOTE | 2022-12-21 07:14 | PM&R Progress Note ---
Subjective HPI/CC On Admission Date Seen by Provider: Dec 21, 2022 Time Seen by Provider: 08:30 Subjective/Events-last exam 12/21/2022: No major issues Working with PT Stronger Always depressed and negative outlook 12/20/2022: Doing better Declines NH placement Incontinence of bowel is an issue 12/19/2022: Doing better Ileus improved No pain reported No pain pills for 5 days 12/18/2022: Patient having very slow recovery Had a conversation with outside room and recommended speaking to SW regarding Medicare sign up to move to NH Patient really meets criteria for Hospice if this status continues End stage alcoholism 12/17/2022: Improved abdominal issue Passing gas No pain reported Minimized pain meds 12/16/2022: Patient improving a bit every day Legs wrapped More gas passed Abdomen is less taut BM+ 12/15/2022: Ileus still present Slowly getting better More upbeat today Edema improved with RIGOBERTO wraps 12/14/2022: Improved overall Feels like he is getting on track Was tearful yesterday Ileus seems to be improved 12/13/2022: Doing a bit better Abdominal distention is still an issue Every time he is hospitalized he has the ileus issue Minimizing narcotics which drives the ileus 12/12/2022: Had a long conversation about alcoholism and complications Ileus still remains Loose stools noted Discontinue the fentanyl IV since narcotics are causing the ileus to become worse Patient may need nursing facility I did update him on this fact because he just thinks that he will just remain in a wheelchair but he cannot possibly take care of his ADLs in the level he is at right now 12/11/2022: Ileus remains Abdomen is taut Patient really cannot walk well Overall very declined Will continue antibiotics for 1 more day Supportive care will continue Review of Systems General: Fatigue, Malaise Objective Exam Vital Signs Vital Signs Date Time Temp Pulse Resp B/P (MAP) Pulse Ox O2 Delivery O2 Flow Rate FiO2 12/21/22 20:41 Room Air 12/21/22 20:04 37.0 97 20 122/60 (80) 90 12/20/22 00:19 21 Capillary Refill : General Appearance: No Apparent Distress, Obese HEENT: Moist Mucous Membranes Neck: Full Range of Motion, Normal Inspection, Non Tender, Supple, Carotid Bruit Respiratory: Chest Non Tender, Lungs Clear, No Accessory Muscle Use, No Respiratory Distress Cardiovascular: Regular Rate, Rhythm, No Murmur Gastrointestinal: Normal Bowel Sounds, No Organomegaly, No Pulsatile Mass, Distended, Tenderness Back: Normal Inspection, No CVA Tenderness, No Vertebral Tenderness, Decreased Range of Motion (left) Extremity: Calf Tenderness, Other (Chronic venous stasis changes in lower legs bilaterally) Neurologic/Psychiatric: Alert, Oriented x3, Motor Weakness (left sided weakness) Skin: Warm/Dry, Ecchymosis (On arms and legs) Lymphatic: No Adenopathy Results/Procedures Lab Patient resulted labs reviewed. FIM Transfers Therapy Code Descriptions/Definitions Functional [place] Measure: 0=Not Assessed/NA 4=Minimal Assistance 1=Total Assistance 5=Supervision or Setup 2=Maximal Assistance 6=Modified [place] 3=Moderate Assistance 7=Complete IndependenceSCALE: Activities may be completed with or without assistive devices. 4-Oafbcyhkbn-qlxqpjh completes the activity by him/herself with no assistance from a helper. 5-Set-up or Clean-up Assistance-helper sets up or cleans up; patient completes activity. [place] assists only prior to or following the activity. 4-Supervision or Touching Assistance-helper provides verbal cues and/or touching/steadying and/or contact guard assistance as patient completes activity. Assistance may be provided throughout the activity or intermittently. 3-Partial/Moderate Assistance-helper does LESS THAN HALF the effort. [place] lifts, holds or supports trunk or limbs, but provides less than half the effort. 2-Substantial/Maximal Assistance-helper does MORE THAN HALF the effort. [place] lifts or holds trunk or limbs and provides more than half the effort. 0-Lkmjugcro-vfwimi does ALL the effort. Patient does none of the effort to c omplete the activity. Or, the assistance of 2 or more helpers is required for the patient to complete the activity. If activity was not attempted, code reason: 7-Patient Refused. 9-Not Applicable-not attempted and the patient did not perform the activity before the current illness, exacerbation or injury. 10-Not Attempted due to Environmental Limitations-(lack of equipment, weather restraints, etc.). 88-Not Attempted due to Medical Conditions or Safety Concerns. Roll Left to Right (QC): 4 Sit to Lying (QC): 4 Sit to Stand (QC): 3 Chair/Wjp-pd-Msnwn Xfer(QC): 3 Car Transfer (QC): 2 Gait Training Does the Patient Walk?: Yes Distance: 20', 30'x2 Walk 10 feet (QC): 4 Walk 50 ft with 2 Turns(QC): 88 Walk 150 ft (QC): 88 Walking 10ft/uneven surface-QC: 88 Gait Persons Needed: 1 Gait Assistive Device: FWW Wheelchair Training Does the Pt Use a Wheelchair?: Yes Wheel 50 ft with 2 turns (QC): 4 Wheel 150 ft (QC): 1 Type of Wheelchair: Manual Stair Training 1 Step (curb) (QC): 88 4 Steps (QC): 88 12 Steps (QC): 88 Balance Picking up an Object (QC): 88 ADL-Treatment Eating (QC): 6 Oral Hygiene (QC): 6 Shower/Bathe Self (QC): 3 Upper Body Dressing (QC): 5 Lower Body Dressing (QC): 3 On/Off Footwear (QC): 2 Toileting Hygiene (QC): 1 Toilet Transfer (QC): 1 Assessment/Plan Assessment and Plan Assess & Plan/Chief Complaint Assessment: Debility Pneumonia failed 4 outpatient treatments from Urgent Care in past 6 weeks-com pleted meropenem on 12/12/2022 Ileus Elevated lactic acidosis not due to sepsis but due to alcoholic liver disease Remote hx of left-sided rib fractures and splenic laceration Prior CVA with left-sided weakness Multiple falls at home chronic Alcoholism Anxiety Tachycardia Gout COPD Former smoker Edema positional type Poor protein status causing third-spacing Neuropathy Plan: Pain control Monitor closely Lovenox Ambulate 12/11/2022: Hep-Lock IV fluid Complete antibiotics 12/12/2022: Ileus management DC fentanyl Minimize oxycodone 12/13/2022: Minimize narcs 12/14/2022: Improved overall 12/15/2022: A bit improved today Alcohol cessation counseled 12/16/2022: Improving 12/17/2022: Ileus improved 12/18/2022: Prognosis poor May need NH at DC 12/19/2022: Monitor closely 12/20/2022: Supportive care will continue 12/21/2022: DC planned soon Monitor closely Family training today (1) Debility Status: Acute (2) Left lower lobe pneumonia Status: Acute (3) Sacral decubitus ulcer Status: Acute (4) Alcohol dependence Status: Acute (5) Colon distention (6) Left-sided weakness Status: Acute (7) Hypertension Status: Chronic (8) Neuropathy Status: Chronic (9) Anxiety Status: Chronic (10) Gout (11) COPD (chronic obstructive pulmonary disease) HARDY CAMPBELL DO Dec 21, 2022 07:14
[2022-12-21 07:17] VITALS: BP 122/63
[2022-12-21] MEDS: ATENOLOL 25 MG (TENORMIN) TAB PO SCH (08:05)
[2022-12-21] MEDS: FOLIC ACID 1 MG TAB PO SCH (08:06)
[2022-12-21] MEDS: METOCLOPRAMIDE INJ 10 MG/2 ML (REGLAN) IVP SCH ×4 (08:07→20:00)
[2022-12-21] MEDS: KCL 10 MEQ TAB (MICRO K) PO SCH ×3 (08:07→17:54)
[2022-12-21] MEDS: DOCUSATE SODIUM 100 MG (COLACE) CAP PO SCH ×2 (08:08→19:28)
[2022-12-21] MEDS: polyethylene glycoL POWDER 17 GM (MIRALAX) PACK PO SCH ×2 (08:08→19:28)
[2022-12-21] MEDS: MICONAZOLE 2% POWDER (DESENEX AF) 90 GM TOP SCH ×2 (08:08→20:00)
[2022-12-21] MEDS: SENNOSIDES 8.6 MG (SENOKOT) TAB PO SCH ×2 (08:08→19:28)
--- NOTE | 2022-12-21 09:28 | Physical Therapy Daily Note ---
PT Daily Note-Current Subjective Patient in bed pre tx, agrees to PT, has no pain at rest. Will be co-treating with OT for part of tx due to poor patient mobility, strength, endurance, severe debility, coordinate UE and LE with activity, safety and reduce risk of falls, and for family training. Pain Section J - Health Conditions 1. Rarely or not at all 2. Occasionally 3. Frequently 4. Almost constantly 8. Unable to answer Pain Effect on Sleep: 1 Pain Interference with Therapy: 2 Pain Interference w/Day-to-Day: 2 Appearance Patient in WC post tx, will continue for a bit with OT. Mental Status Patient Orientation: Person, Place, Situation Transfers SCALE: Activities may be completed with or without assistive devices. 8-Tbfmwvubeq-nsmkvwm completes the activity by him/herself with no assistance from a helper. 5-Set-up or Clean-up Assistance-helper sets up or cleans up; patient completes activity. [place] assists only prior to or following the activity. 4-Supervision or Touching Assistance-helper provides verbal cues and/or touching/steadying and/or contact guard assistance as patient completes activity. Assistance may be provided throughout the activity or intermittently. 3-Partial/Moderate Assistance-helper does LESS THAN HALF the effort. [place] lifts, holds or supports trunk or limbs, but provides less than half the effort. 2-Substantial/Maximal Assistance-helper does MORE THAN HALF the effort. [place] lifts or holds trunk or limbs and provides more than half the effort. 7-Mtxcchetu-vyahln does ALL the effort. Patient does none of the effort to complete the activity. Or, the assistance of 2 or more helpers is required for the patient to complete the activity. If activity was not attempted, code reason: 7-Patient Refused. 9-Not Applicable-not attempted and the patient did not perform the activity before the current illness, exacerbation or injury. 10-Not Attempted due to Environmental Limitations-(lack of equipment, weather restraints, etc.). 88-Not Attempted due to Medical Conditions or Safety Concerns. Roll Left & Right (QC): 4 Sit to Lying (QC): 4 Lying to Sitting/Side of Bed(Q: 3 Sit to Stand (QC): 3 Chair/Qbc-sk-Arnwi Xfer(QC): 3 Toilet Transfer (QC): 3 Patient performs rolling with SBA, supine to sit min assist, sit to supine SBA, sit to stand mod assist, transfers mod assist. Patient needs to have a BM, sits to the side of the bed and transfers to commode. Patient has several BM's, when done, he stands, is wiped, and brief pulled up (total assist). Patient then stands again to get pants pulled up and puts on his own shirt. Gait Training Distance: 30'x2, 10' Walk 10 feet (QC): 4 Gait Assistive Device: FWW WC follow, very slow ambulation, CGA, unsteady but no LOB Exercises sit to stands from elevated therapy table x5, standing activity throwing metal washers (stands 8 times). was trained with bed mobility and transfers and ambulation, assisted with sit to stand and ambulation. She seemed to received instructions well. Treatments PT performed bed mobility and transfers, ambulation, strengthening, standing activity, toileting and dressing, training with with patient mobility and assist needed, OT performed standing activity, UE positioning and safety during activity. Assessment Current Status: Fair Progress slow progress, seemed pleased with his ambulation PT Short Term Goals Short Term Goals Time Frame: Dec 17, 2022 Sit to lyin Lying to sitting on side of be: 4 Sit to stand: 3 (mod assist) Chair/fxl-eu-ubhbe transfer: 3 (mod assist) Walk 10 feet: 3 PT Window Treatment Installer Goals Window Treatment Installer Goals PT Detention Goals Time Frame: Dec 24, 2022 Roll Left & Right (QC): 6 Sit to Lying (QC): 6 Lying-Sitting on Side/Bed(QC): 6 Sit to Stand (QC): 4 (CGA) Chair/Mlr-dp-Tjkgs Xfer(QC): 4 (CGA) Toilet Transfer (QC): 4 (CGA) Car Transfer (QC): 3 (Diana) Does the Patient Walk: No and Walking Goal IS indicated Walk 10 feet (QC): 4 (CGA) Walk 50ft with 2 Turns (QC): 4 (CGA) Walk 150 ft (QC): 88 Walking 10ft on Uneven Surface: 4 (CA) 1 Step (curb) (QC): 88 4 Steps (QC): 88 12 Steps (QC): 88 Picking up an Object (QC): 4 (CGA using a marketing planner) Wheel 50 feet with 2 turns (QC: 4 (SBA) Wheel 150 feet: 4 (SBA) PT Plan Problem List Problem List: Activity Tolerance, Functional Strength, Safety, Balance, Gait, Transfer, Bed Mobility, ROM Treatment/Plan Treatment Plan: Continue Plan of Care Treatment Plan: Bed Mobility, Education, Functional Activity Francesca, Functional Strength, Group Therapy, Gait, Safety, Therapeutic Exercise, Transfers Treatment Duration: Dec 24, 2022 Frequency: At least 5 of 7 days/Wk (IRF) Estimated Hrs Per Day: 1.5 hours per day Patient and/or Family Agrees t: Yes Safety Risks/Education Patient Education: Gait Training, Transfer Techniques, Correct Positioning, Safety Issues Teaching Recipient: Patient Teaching Methods: Demonstration, Discussion Response to Teaching: Reinforcement Needed Time Time In: 08 Time Out: 929 DATE: Dec 21, 2022 Total Billed Treatment Time: 90 Total Billed Treatment 1 visit FA 90' co-treated with OT from [id number] KRISTINE HAWK PT Dec 21, 2022 09:28
[2022-12-21] MEDS: RT-ALBUTEROL SULF 2.5 MG/3 ML PRE-MIX VIAL INH SCH ×2 (09:59→20:41)
--- NOTE | 2022-12-21 10:30 | Occupational Ther Daily Note ---
OT Current Status-Daily Note Subjective Pt alert, working with PT. Co-treat with PT ([id number]), skills of 2 clinicians required due to poor patient mobility, strength, endurance, severe debility, coordinate UE and LE with activity, safety and reduce risk of falls, and for family training. PT focusing on transfers, ambulation and mobility while OT focusing on functional mobility, ADLs and B UE placement during mobility. Mental Status/Objective Patient Orientation: Person, Place, Time, Situation Attachments: IV ADL-Treatment Discussion with about home routine and mobility that will be needed throughout the home. Pt has w/c at home that can be used throughout the main part of the home. Bathroom door and bathroom is too narrow to fit a w/c. Worked with pt and on propelling w/c to door then using FWW to ambulate into bathroom and transfer to toilet then back to w/c with CGA to SBA. Pt does need higher surfaces to transfer from/to. Discuss possibility of getting BSC for home, SW gave pt and information. Pt given education on using sock aide to don socks due to inability to bend over or use figure 4 to thread items over feet. After therapy, pt sitting in w/c with call light/phone in reach. All needs met in room. Therapy Code Descriptions/Definitions Functional [place] Measure: 0=Not Assessed/NA 4=Minimal Assistance 1=Total Assistance 5=Supervision or Setup 2=Maximal Assistance 6=Modified [place] 3=Moderate Assistance 7=Complete IndependenceSCALE: Activities may be completed with or without assistive devices. 8-Quuwamwebp-varhqxs completes the activity by him/herself with no assistance from a helper. 5-Set-up or Clean-up Assistance-helper sets up or cleans up; patient completes activity. [place] assists only prior to or following the activity. 4-Supervision or Touching Assistance-helper provides verbal cues and/or touching/steadying and/or contact guard assistance as patient completes activity. Assistance may be provided throughout the activity or intermittently. 3-Partial/Moderate Assistance-helper does LESS THAN HALF the effort. Center lifts, holds or supports trunk or limbs, but provides less than half the effort. 2-Substantial/Maximal Assistance-helper does MORE THAN HALF the effort. Center lifts or holds trunk or limbs and provides more than half the effort. 2-Sbpgsjiov-baqrpk does ALL the effort. Patient does none of the effort to complete the activity. Or, the assistance of 2 or more helpers is required for the patient to complete the activity. If activity was not attempted, code reason: 7-Patient Refused. 9-Not Applicable-not attempted and the patient did not perform the activity before the current illness, exacerbation or injury. 10-Not Attempted due to Environmental Limitations-(lack of equipment, weather restraints, etc.). 88-Not Attempted due to Medical Conditions or Safety Concerns. Oral Hygiene (QC): 6 (Sitting at sink) Toilet Transfer (QC): 4 Other Treatment See PT notes for ambulation and transfer progress. OT Short Term Goals Short Term Goals Time Frame: Dec 24, 2022 Toileting hygiene: 4 Shower/bathe self: 4 Upper body dressin Lower body dressin Putting on/taking off footwear: 3 OT Nursing Home Goals Technical Aide Goals Time Frame: Jan 07, 2023 Acute change in mental status: 0 Inattention: 0 Disorganized thinkin Altered level of consciousness: 0 Eating (QC): 6 Oral Hygiene (QC): 6 Toileting Hygiene (QC): 6 Shower/Bathe Self (QC): 6 Upper Body Dressing (QC): 6 Lower Body Dressing (QC): 6 On/Off Footwear (QC): 6 Additional Goals: 1-Demonstrate ADL Tasks, 2-Verbalize Understanding, 3- ImproveStrength/Francesca 1=Demonstrate adherence to instructed precautions during ADL tasks. 2=Patient will verbalize/demonstrate understanding of assistive devices/modifications for ADL. 3=Patient will improve strength/tolerance for activity to enable patient to perform ADL's. OT Education/Plan Problem List/Assessment Assessment: Decreased Activ Tolerance, Impaired Self-Care Skills Discharge Recommendations Plan/Recommendations: Continue POC Treatment Plan/Plan of Care Patient would benefit from OT for education, treatment and training to promote independence in ADL's, mobility, safety and/or upper extremity function for ADL's. Plan of Care: ADL Retraining, Functional Mobility, Group Exercise/Act as Ind, UE Funct Exercise/Act Treatment Duration: Jan 07, 2023 Frequency: At least 5 of 7 days/Wk (IRF) Estimated Hrs Per Day: 1.5 hours per day Agreement: Yes Rehab Potential: Guarded Time Start Time: 08:45 Stop Time: 10:15 DATE: Dec 21, 2022 Total Time Billed (hr/min): 90 Billed Treatment Time 1 visit-FA 3 (45 min) ADL 3 (45 min) cotreat with PT [id number], individual [id number] SUNIL DAMON Dec 21, 2022 10:30
[2022-12-21] MEDS: ENOXAPARIN 40 MG/0.4 ML (LOVENOX) SYR SC SCH (17:56)
[2022-12-21 20:04] VITALS: BP 122/60
[2022-12-21] MEDS: MELATONIN 3 MG TABLET PO PRN (22:47)
[2022-12-21] MEDS: LORazepam 0.5 MG (ATIVAN) TABLET PO PRN (22:47)
--- NOTE | 2022-12-22 05:27 | PM&R Progress Note ---
Subjective HPI/CC On Admission Date Seen by Provider: Dec 22, 2022 Time Seen by Provider: 08:30 Subjective/Events-last exam 12/22/2022: Doing much better Walking well Monitored closely No pain 12/21/2022: No major issues Working with PT Stronger Always depressed and negative outlook 12/20/2022: Doing better Declines NH placement Incontinence of bowel is an issue 12/19/2022: Doing better Ileus improved No pain reported No pain pills for 5 days 12/18/2022: Patient having very slow recovery Had a conversation with outside room and recommended speaking to SW regarding Medicare sign up to move to NH Patient really meets criteria for Hospice if this status continues End stage alcoholism 12/17/2022: Improved abdominal issue Passing gas No pain reported Minimized pain meds 12/16/2022: Patient improving a bit every day Legs wrapped More gas passed Abdomen is less taut BM+ 12/15/2022: Ileus still present Slowly getting better More upbeat today Edema improved with RIGOBERTO wraps 12/14/2022: Improved overall Feels like he is getting on track Was tearful yesterday Ileus seems to be improved 12/13/2022: Doing a bit better Abdominal distention is still an issue Every time he is hospitalized he has the ileus issue Minimizing narcotics which drives the ileus 12/12/2022: Had a long conversation about alcoholism and complications Ileus still remains Loose stools noted Discontinue the fentanyl IV since narcotics are causing the ileus to become worse Patient may need nursing facility I did update him on this fact because he just thinks that he will just remain in a wheelchair but he cannot possibly take care of his ADLs in the level he is at right now 12/11/2022: Ileus remains Abdomen is taut Patient really cannot walk well Overall very declined Will continue antibiotics for 1 more day Supportive care will continue Review of Systems General: Fatigue, Malaise Objective Exam Vital Signs Vital Signs Date Time Temp Pulse Resp B/P (MAP) Pulse Ox O2 Delivery O2 Flow Rate FiO2 12/22/22 21:36 94 Room Air 12/22/22 19:55 36.5 96 16 125/63 (83) 12/20/22 00:19 21 Capillary Refill : General Appearance: No Apparent Distress, Chronically ill, Obese HEENT: Moist Mucous Membranes Neck: Full Range of Motion, Normal Inspection, Non Tender, Supple, Carotid Bruit Respiratory: Chest Non Tender, Lungs Clear, Normal Breath Sounds, No Accessory Muscle Use, No Respiratory Distress, Decreased Breath Sounds Cardiovascular: Regular Rate, Rhythm, No Murmur Gastrointestinal: Normal Bowel Sounds, No Organomegaly, No Pulsatile Mass, Distended, Tenderness Back: Normal Inspection, No CVA Tenderness, No Vertebral Tenderness, Decreased Range of Motion (left) Extremity: Calf Tenderness, Other (Chronic venous stasis changes in lower legs bilaterally) Neurologic/Psychiatric: Alert, Oriented x3, strapper II-XII Norm as Tested, Abnormal Gait, Depressed Affect, Motor Weakness (left sided weakness) Skin: Warm/Dry, Ecchymosis (On arms and legs) Lymphatic: No Adenopathy Results/Procedures Lab Patient resulted labs reviewed. FIM Transfers Therapy Code Descriptions/Definitions Functional [place] Measure: 0=Not Assessed/NA 4=Minimal Assistance 1=Total Assistance 5=Supervision or Setup 2=Maximal Assistance 6=Modified [place] 3=Moderate Assistance 7=Complete IndependenceSCALE: Activities may be completed with or without assistive devices. 6-Mooupapyok-yhdnmbl completes the activity by him/herself with no assistance from a helper. 5-Set-up or Clean-up Assistance-helper sets up or cleans up; patient completes activity. [place] assists only prior to or following the activity. 4-Supervision or Touching Assistance-helper provides verbal cues and/or touching/steadying and/or contact guard assistance as patient completes activity. Assistance may be provided throughout the activity or intermittently. 3-Partial/Moderate Assistance-helper does LESS THAN HALF the effort. [place] lifts, holds or supports trunk or limbs, but provides less than half the effort. 2-Substantial/Maximal Assistance-helper does MORE THAN HALF the effort. [place] lifts or holds trunk or limbs and provides more than half the effort. 4-Wfbkfobrq-vobypt does ALL the effort. Patient does none of the effort to complete the activity. Or, the assistance of 2 or more helpers is required for the patient to complete the activity. If activity was not attempted, code reason: 7-Patient Refused. 9-Not Applicable-not attempted and the patient did not perform the activity before the current illness, exacerbation or injury. 10-Not Attempted due to Environmental Limitations-(lack of equipment, weather restraints, etc.). 88-Not Attempted due to Medical Conditions or Safety Concerns. Roll Left to Right (QC): 4 Sit to Lying (QC): 4 Sit to Stand (QC): 3 Chair/Ilm-kg-Hfdjh Xfer(QC): 3 Car Transfer (QC): 2 Gait Training Does the Patient Walk?: Yes Distance: 30'x2, 10' Walk 10 feet (QC): 4 Walk 50 ft with 2 Turns(QC): 88 Walk 150 ft (QC): 88 Walking 10ft/uneven surface-QC: 88 Gait Persons Needed: 1 Gait Assistive Device: FWW Wheelchair Training Does the Pt Use a Wheelchair?: Yes Wheel 50 ft with 2 turns (QC): 4 Wheel 150 ft (QC): 1 Type of Wheelchair: Manual Stair Training 1 Step (curb) (QC): 88 4 Steps (QC): 88 12 Steps (QC): 88 Balance Picking up an Object (QC): 88 ADL-Treatment Eating (QC): 6 Oral Hygiene (QC): 6 (Sitting at sink) Shower/Bathe Self (QC): 3 Upper Body Dressing (QC): 5 Lower Body Dressing (QC): 3 On/Off Footwear (QC): 2 Toileting Hygiene (QC): 1 Toilet Transfer (QC): 4 Assessment/Plan Assessment and Plan Assess & Plan/Chief Complaint Assessment: Debility Pneumonia failed 4 outpatient treatments from Urgent Care in past 6 weeks- completed meropenem on 12/12/2022 Ileus Elevated lactic acidosis not due to sepsis but due to alcoholic liver disease Remote hx of left-sided rib fractures and splenic laceration Prior CVA with left-sided weakness Multiple falls at home chronic Alcoholism Anxiety Tachycardia Gout COPD Former smoker Edema positional type Poor protein status causing third-spacing Neuropathy Plan: Pain control Monitor closely Lovenox Ambulate 12/11/2022: Hep-Lock IV fluid Complete antibiotics 12/12/2022: Ileus management DC fentanyl Minimize oxycodone 12/13/2022: Minimize narcs 12/14/2022: Improved overall 12/15/2022: A bit improved today Alcohol cessation counseled 12/16/2022: Improving 12/17/2022: Ileus improved 12/18/2022: Prognosis poor May need NH at DC 12/19/2022: Monitor closely 12/20/2022: Supportive care will continue 12/21/2022: DC planned soon Monitor closely Family training today 12/22/2022: SUE home planned for tomorrow (1) Debility Status: Acute (2) Left lower lobe pneumonia Status: Acute (3) Sacral decubitus ulcer Status: Acute (4) Alcohol dependence Status: Acute (5) Colon distention (6) Left-sided weakness Status: Acute (7) Hypertension Status: Chronic (8) Neuropathy Status: Chronic (9) Anxiety Status: Chronic (10) Gout (11) COPD (chronic obstructive pulmonary disease) HARDY CAMPBELL DO Dec 22, 2022 05:27
[2022-12-22] MEDS: PANTOPRAZOLE 40 MG (PROTONIX) TAB PO SCH (05:46)
[2022-12-22] MEDS: MULTIVIT W/MINERALS TAB (THERAGRAN M) PO SCH (05:46)
[2022-12-22] MEDS: DICYCLOMINE 10 MG (BENTYL) CAP PO SCH ×4 (05:46→23:30)
[2022-12-22] MEDS: MAGNESIUM OXIDE (MAG-OX)400 MG TAB PO SCH (05:46)
[2022-12-22] MEDS: ATENOLOL 25 MG (TENORMIN) TAB PO SCH (07:32)
[2022-12-22] MEDS: FOLIC ACID 1 MG TAB PO SCH (07:32)
[2022-12-22] MEDS: KCL 10 MEQ TAB (MICRO K) PO SCH ×3 (07:33→17:08)
[2022-12-22] MEDS: METOCLOPRAMIDE INJ 10 MG/2 ML (REGLAN) IVP SCH ×4 (07:34→20:42)
[2022-12-22 07:36] VITALS: BP 143/74
[2022-12-22] MEDS: MICONAZOLE 2% POWDER (DESENEX AF) 90 GM TOP SCH ×2 (07:52→20:43)
[2022-12-22] MEDS: polyethylene glycoL POWDER 17 GM (MIRALAX) PACK PO SCH ×2 (08:57→19:19)
[2022-12-22] MEDS: SENNOSIDES 8.6 MG (SENOKOT) TAB PO SCH ×2 (08:57→19:20)
[2022-12-22] MEDS: DOCUSATE SODIUM 100 MG (COLACE) CAP PO SCH ×2 (08:57→19:20)
[2022-12-22] MEDS: RT-ALBUTEROL SULF 2.5 MG/3 ML PRE-MIX VIAL INH SCH ×2 (09:25→21:36)
--- NOTE | 2022-12-22 09:29 | Physical Therapy Daily Note ---
PT Daily Note-Current Subjective Patient in bed pre tx, agrees to PT, voices no complaints of pain at rest. Patient states he needs to have a BM and doesn't think he will be able to make it to the commode. Pain Section J - Health Conditions 1. Rarely or not at all 2. Occasionally 3. Frequently 4. Almost constantly 8. Unable to answer Pain Effect on Sleep: 1 Pain Interference with Therapy: 2 Pain Interference w/Day-to-Day: 2 Appearance Patient in WC at bedside post tx with nurse call, phone, tray, all needs met, has OT right after PT. Mental Status Patient Orientation: Person, Place, Situation Transfers SCALE: Activities may be completed with or without assistive devices. 9-Qrkniscwgd-exqqznw completes the activity by him/herself with no assistance from a helper. 5-Set-up or Clean-up Assistance-helper sets up or cleans up; patient completes activity. [place] assists only prior to or following the activity. 4-Supervision or Touching Assistance-helper provides verbal cues and/or touching/steadying and/or contact guard assistance as patient completes activity. Assistance may be provided throughout the activity or intermittently. 3-Partial/Moderate Assistance-helper does LESS THAN HALF the effort. [place] lifts, holds or supports trunk or limbs, but provides less than half the effort. 2-Substantial/Maximal Assistance-helper does MORE THAN HALF the effort. [place] lifts or holds trunk or limbs and provides more than half the effort. 7-Mjhquhmbc-fswsuk does ALL the effort. Patient does none of the effort to complete the activity. Or, the assistance of 2 or more helpers is required for the patient to complete the activity. If activity was not attempted, code reason: 7-Patient Refused. 9-Not Applicable-not attempted and the patient did not perform the activity before the current illness, exacerbation or injury. 10-Not Attempted due to Environmental Limitations-(lack of equipment, weather restraints, etc.). 88-Not Attempted due to Medical Conditions or Safety Concerns. Roll Left & Right (QC): 4 Sit to Lying (QC): 3 Lying to Sitting/Side of Bed(Q: 4 Sit to Stand (QC): 3 Chair/Jpf-uu-Ncupy Xfer(QC): 3 Toilet Transfer (QC): 3 Car Transfer (QC): 3 Patient performs rolling with SBA, supine to sit min assist, sit to supine SBA, sit <-> stand mod assist, transfers CGA, car transfer mod assist. Patient is placed on a bedpan, when done he is cleaned and sits to the side of the bed, patient transfers to commode because he commonly has multiple BM's, however, patient doesn't have any more this time. Patient is donned with brief and pants and shoes, he stands, is cleaned and pants and brief pulled up (total assist), and transfers to . Gait Training Distance: 20'x2, 30' Walk 10 feet (QC): 4 Walk 50 ft with 2 Turns(QC): 88 Walk 150 ft (QC): 88 Walking 10ft/uneven surface-QC: 4 Gait Persons Needed: 1 Gait Assistive Device: FWW Patient can ambulate 30' with a rolling walker with CGA (including 10' over an uneven surface). Patient ambulates very slowly, is unsteady but no LOB, has poor foot clearance and step through. Wheelchair Training Does the Pt Use a Wheelchair?: Yes Wheel 50 ft with 2 turns (QC): 4 Wheel 150 ft (QC): 88 Type of Wheelchair: Manual Patient can propel a manual WC 100'x2 with SBA. Patient has a lot of difficulty propelling a manual WC due to his weakness in his left arm, he propels with his right arm and both legs, has trouble turning and fatigues very quickly. Stair Training 1 Step (curb) (QC): 88 4 Steps (QC): 88 12 Steps (QC): 88 Balance Picking up an Object (QC): 4 (CGA using an extended digester operator) Exercises Standing: Heel/toe raises, Mini squats Standing Reps: 15 NuStep Minutes: 15 NuStep Workload: 4 Treatments bed mobility and transfers, ambulation, strengthening, WC mobility Assessment Current Status: Poor Progress very slow progress, patient may have reached a plateau for now PT Short Term Goals Short Term Goals Time Frame: Dec 17, 2022 Sit to lyin Lying to sitting on side of be: 4 Sit to stand: 3 (mod assist) Chair/pkd-bl-mlxhn transfer: 3 (mod assist) Walk 10 feet: 3 PT Alf Goals Alf Goals PT Alf Goals Time Frame: Dec 24, 2022 Roll Left & Right (QC): 6 Sit to Lying (QC): 6 Lying-Sitting on Side/Bed(QC): 6 Sit to Stand (QC): 4 (CGA) Chair/Lnf-mq-Wzcko Xfer(QC): 4 (CGA) Toilet Transfer (QC): 4 (CGA) Car Transfer (QC): 3 (Diana) Does the Patient Walk: No and Walking Goal IS indicated Walk 10 feet (QC): 4 (CGA) Walk 50ft with 2 Turns (QC): 4 (CGA) Walk 150 ft (QC): 88 Walking 10ft on Uneven Surface: 4 (CA) 1 Step (curb) (QC): 88 4 Steps (QC): 88 12 Steps (QC): 88 Picking up an Object (QC): 4 (CGA using a digester operator) Wheel 50 feet with 2 turns (QC: 4 (SBA) Wheel 150 feet: 4 (SBA) PT Plan Problem List Problem List: Activity Tolerance, Functional Strength, Safety, Balance, Gait, Transfer, Bed Mobility, ROM Treatment/Plan Treatment Plan: Continue Plan of Care Treatment Plan: Bed Mobility, Education, Functional Activity Francesca, Functional Strength, Group Therapy, Gait, Safety, Therapeutic Exercise, Transfers Treatment Duration: Dec 24, 2022 Frequency: At least 5 of 7 days/Wk (IRF) Estimated Hrs Per Day: 1.5 hours per day Patient and/or Family Agrees t: Yes Safety Risks/Education Patient Education: Gait Training, Transfer Techniques, Correct Positioning, W/C Management, Safety Issues Teaching Recipient: Patient Teaching Methods: Demonstration, Discussion Response to Teaching: Reinforcement Needed Time Time In: 0800 Time Out: 30 DATE: Dec 22, 2022 Total Billed Treatment Time: 90 Total Billed Treatment 1 visit EX 20' FA 70' KRISTINE HAWK PT Dec 22, 2022 09:29
--- NOTE | 2022-12-22 09:46 | Occupational Ther Daily Note ---
OT Current Status-Daily Note Subjective Pt alert, sitting in w/c. Pt agrees to therapy. No c/o pain, only fatigue. Mental Status/Objective Patient Orientation: Person, Place, Time, Situation Attachments: IV ADL-Treatment Pt agrees to shower. Pt propels w/c into bathroom and sits at sink, to complete oral care independently. Pt ambulates using FWW from bathroom door to shower to use rolling shower chair with cuttout, close SBA for safety. Sitting 100% of the time in shower using grabbar, hand held shower and LH sponge, pt completes shower independently. Pt has BM in shower. Pt then dried all areas. Set up for upper body dressing. Transferred from shower chair to w/c using FWW with close SBA. Depending on surface height for sit to stand for the amount of assistance needed, lower increased assistance/higher surface decreased assistance. Using turner machine operator, pt able to thread lower body clothing on feet with increased time. Pt transferred to EOB to sit and hike briefs over hips by rolling side to side (min A) then to hike pants over hips pt in supine and bridged (min A). Set up of sock aide then min A to pull sock on with sock aide. Pt stated that he will not wear socks at home. Pt states that is getting BSC for use at home. Pt will need assist to hike pants over hips in standing and to cleanse buttocks after BM in standing. Pt has diffiulty offloading B UE's to complete clothing manipulation or hygiene. After therapy, pt lying in bed with call light/phone in reach. All needs met in room. Therapy Code Descriptions/Definitions Functional [place] Measure: 0=Not Assessed/NA 4=Minimal Assistance 1=Total Assistance 5=Supervision or Setup 2=Maximal Assistance 6=Modified [place] 3=Moderate Assistance 7=Complete IndependenceSCALE: Activities may be completed with or without assistive devices. 7-Iygmnmygmg-ajgnhaz completes the activity by him/herself with no assistance from a helper. 5-Set-up or Clean-up Assistance-helper sets up or cleans up; patient completes activity. [place] assists only prior to or following the activity. 4-Supervision or Touching Assistance-helper provides verbal cues and/or touching/steadying and/or contact guard assistance as patient completes activity. Assistance may be provided throughout the activity or intermittently. 3-Partial/Moderate Assistance-helper does LESS THAN HALF the effort. [place] lifts, holds or supports trunk or limbs, but provides less than half the effort. 2-Substantial/Maximal Assistance-helper does MORE THAN HALF the effort. [place] lifts or holds trunk or limbs and provides more than half the effort. 6-Ocjflzxgw-yzqmtb does ALL the effort. Patient does none of the effort to complete the activity. Or, the assistance of 2 or more helpers is required for the patient to complete the activity. If activity was not attempted, code reason: 7-Patient Refused. 9-Not Applicable-not attempted and the patient did not perform the activity before the current illness, exacerbation or injury. 10-Not Attempted due to Environmental Limitations-(lack of equipment, weather restraints, etc.). 88-Not Attempted due to Medical Conditions or Safety Concerns. Eating (QC): 6 (Pt has demonstrated ability to complete independently.) Oral Hygiene (QC): 6 Shower/Bathe Self (QC): 6 Upper Body Dressing (QC): 5 Lower Body Dressing (QC): 3 On/Off Footwear: 3 Toileting Hygiene (QC): 2 Toilet Transfer (QC): 4 BIMS CAM BIMS Expression of Ideas and Wants: Without Difficulty Understanding Verbal Content: Understands Brief Interview/Mental Status: Yes IRF RODDY BIMS: IRF RODDY BIMS Response (Comments) Value Repitition of Three Words Three 3 Recalls Socks Yes, No Cue Required 2 Recalls Blue Yes, No Cue Required 2 Recalls Bed Yes, No Cue Required 2 Year Correct 3 Month Accurate Within 5 Days 2 Day Correct 1 Total 15 Should Staff Asses[address] Mental [address] No CAM Mental Status Change/Baseline: 0 Inattention: 0 Disorganized thinkin Altered level of consciousness: 0 OT Short Term Goals Short Term Goals Time Frame: Dec 24, 2022 Toileting hygiene: 4 Shower/bathe self: 4 Upper body dressin Lower body dressin Putting on/taking off footwear: 3 OT Furnace [employer] Equipment Operator Goals Assisted Goals Time Frame: Jan 07, 2023 Acute change in mental status: 0 Inattention: 0 Disorganized thinkin Altered level of consciousness: 0 Eating (QC): 6 (met) Oral Hygiene (QC): 6 (met) Toileting Hygiene (QC): 6 (not me) Shower/Bathe Self (QC): 6 (met) Upper Body Dressing (QC): 6 (not met) Lower Body Dressing (QC): 6 (not met) On/Off Footwear (QC): 6 (not met) Additional Goals: 1-Demonstrate ADL Tasks, 2-Verbalize Understanding, 3-ImproveStrength/Francesca 1=Demonstrate adherence to instructed precautions during ADL tasks. 2=Patient will verbalize/demonstrate understanding of assistive devices/modifications for ADL. 3=Patient will improve strength/tolerance for activity to enable patient to perform ADL's. OT Education/Plan Problem List/Assessment Assessment: Decreased Activ Tolerance, Impaired Funct Balance, Impaired Self- Care Skills Discharge Recommendations Plan/Recommendations: Continue POC Treatment Plan/Plan of Care Patient would benefit from OT for education, treatment and training to promote independence in ADL's, mobility, safety and/or upper extremity function for ADL's. Plan of Care: ADL Retraining, Functional Mobility, Group Exercise/Act as Ind, UE Funct Exercise/Act Treatment Duration: Jan 07, 2023 Frequency: At least 5 of 7 days/Wk (IRF) Estimated Hrs Per Day: 1.5 hours per day Agreement: Yes Rehab Potential: Guarded Time Start Time: 09:30 Stop Time: 11:00 DATE: Dec 22, 2022 Total Time Billed (hr/min): 90 Billed Treatment Time 1 visit-ADL 6 (90 min) SUNIL DAMON Dec 22, 2022 09:46
[2022-12-22] MEDS: ENOXAPARIN 40 MG/0.4 ML (LOVENOX) SYR SC SCH (17:09)
[2022-12-22 19:55] VITALS: BP 125/63
[2022-12-22] MEDS: CALCIUM CARBONATE 500 MG (TUMS) TAB.CHEW PO PRN (22:33)
[2022-12-22] MEDS: MELATONIN 3 MG TABLET PO PRN (22:33)
[2022-12-22] MEDS: LORazepam 0.5 MG (ATIVAN) TABLET PO PRN (22:33)
[2022-12-23] MEDS ORDERED: MULT-974 PO (05:17)
[2022-12-23] MEDS ORDERED: FOLI1TAB33 PO (05:17)
[2022-12-23] MEDS ORDERED: PANT40TA52 PO (05:17)
[2022-12-23] MEDS ORDERED: POLY17PO54 PO (05:17)
[2022-12-23] MEDS ORDERED: SNN187T PO (05:17)
[2022-12-23] MEDS ORDERED: METO-310 PO (05:17)
--- NOTE | 2022-12-23 05:18 | D/C HH Face to Face Order ---
D/C HH Face to Face Orders Reconcile Patient Problems Problems Reviewed?: Yes Instructions for Patient HH Patient Instructions/FollowUp: pcp 1 week Physician to follow Patient: Mauricio Discharge Diet for Home: No Restrictions Patient Problems: Debility Alcoholism Edema Ileus severe Patient Data-Allergies,Ht & Wt Patient Allergies: Coded Allergies: Sulfa (Sulfonamide Antibiotics) (Verified Allergy, Unknown, 09/11/22) Uncoded Allergies: SULFA (Allergy, Unknown, 01/24/22) Height (Feet): 6 Height (Inches): 2.00 Weight (Pounds): 220 Weight (Ounces): 8.8 Home Health Need/Face to Face Date of Face to Face: Dec 23, 2022 Clinical Findings: Generalized weakness and fatigue, Instability, Muscle weakness, Unsteady gait I have seen Pt [id number]: Yes Discharged To: Home Diagnosis/Conditions: Debility Alcoholism Edema Ileus severe Patient is Homebound due to: Angel fall risk due to instabilty, Muscle weakness Homebound Status Due to the above stated illness, injury or surgical procedure (medical condition or diagnosis) and associated clinical findings, the patient is homebound because of his/her inability to leave home except with aid of a supportive device and/or person AND leaving the home requires a considerable and taxing effort or is medically contraindicated. Pt req the following assistanc: Walker Home Health Nursing Orders Home Health Services Order: Nursing Services, Triple Drum Operator-Evaluate & Treat, Physical Therapy-Evaluate & Treat Certify Stmt I certify that this patient is under my care and that I, a nurse practitioner or a physician; a bilingual medical assistant working with me, had a face to face encounter that - meets the physician face to face encounter requirements with this patient as dated. HARDY CAMPBELL DO Dec 23, 2022 05:18
--- NOTE | 2022-12-23 05:19 | Discharge Summary ---
Diagnosis/Chief Complaint Date of Admission Dec 10, 2022 at 11:50 Date of Discharge Discharge Date: Dec 23, 2022 Discharge Diagnosis Assessment: Debility Pneumonia failed 4 outpatient treatments from Urgent Care in past 6 weeks- completed meropenem on 12/12/2022 Ileus Elevated lactic acidosis not due to sepsis but due to alcoholic liver disease Remote hx of left-sided rib fractures and splenic laceration Prior CVA with left-sided weakness Multiple falls at home chronic Alcoholism Anxiety Tachycardia Gout COPD Former smoker Edema positional type Poor protein status causing third-spacing Neuropathy Plan: Pain control Monitor closely Lovenox Ambulate 12/11/2022: Hep-Lock IV fluid Complete antibiotics 12/12/2022: Ileus management DC fentanyl Minimize oxycodone 12/13/2022: Minimize narcs 12/14/2022: Improved overall 12/15/2022: A bit improved today Alcohol cessation counseled 12/16/2022: Improving 12/17/2022: Ileus improved 12/18/2022: Prognosis poor May need NH at DC 12/19/2022: Monitor closely 12/20/2022: Supportive care will continue 12/21/2022: DC planned soon Monitor closely Family training today 12/22/2022: DC home planned for tomorrow (1) Debility Status: Acute (2) Left lower lobe pneumonia Status: Acute (3) Sacral decubitus ulcer Status: Acute (4) Alcohol dependence Status: Acute (5) Colon distention (6) Left-sided weakness Status: Acute (7) Hypertension Status: Chronic (8) Neuropathy Status: Chronic (9) Anxiety Status: Chronic (10) Gout (11) COPD (chronic obstructive pulmonary disease) Discharge Summary Discharge Physical Examination Allergies: Coded Allergies: Sulfa (Sulfonamide Antibiotics) (Verified Allergy, Unknown, 09/11/22) Uncoded Allergies: SULFA (Allergy, Unknown, 01/24/22) Vitals & I&Os Vital Signs Date Time Temp Pulse Resp B/P (MAP) Pulse Ox O2 Delivery O2 Flow Rate FiO2 12/23/22 11:23 36.7 102 20 153/81 90 Room Air 12/23/22 07:02 21 General Appearance: Alert, Oriented X3, Cooperative Respiratory: Clear to Auscultation Cardiovascular: Regular Rate Psych/Mental Status: Mental Status NL Hospital Course Was the Problem List Reviewed?: Yes Lengthy course after he was admitted following recurrent pneumonia and extreme debility following a remote CVA with left sided weakness. Alcoholism was main source of significant decline overall and alcohol cessation was counseled in- depth with patient and his . Overall he had severe ileus requiring surgery consultation with resolution by the time he was DC. Very debilitated state but declined to go to custodial for 24/7 care. Incontinence was an issue of both bowel and bladder. Overall he was able to ambulate and improve his status to go home with and was DC. Labs (last 24 hrs) Laboratory Tests 12/11/22 06:00: White Blood Count 9.0, Red Blood Count 2.86L, Hemoglobin 10.2L, Hematocrit 30L, Mean Corpuscular Volume 105H, Mean Corpuscular Hemoglobin 36H, Mean Corpuscular Hemoglobin Concent 34, Red Cell Distribution Width 14.2, Platelet Count 125L, Mean Platelet Volume 10.3, Immature Granulocyte % (Auto) 1, Neutrophils (%) (Auto) 78H, Lymphocytes (%) (Auto) 10L, Monocytes (%) (Auto) 8, Eosinophils (%) (Auto) 2, Basophils (%) (Auto) 0, Neutrophils # (Auto) 7.1, Lymphocytes # (Auto) 0.9L, Monocytes # (Auto) 0.8, Eosinophils # (Auto) 0.2, Basophils # (Auto) 0.0, Immature Granulocyte # (Auto) 0.1, Percent Immature Platelet Fraction 3.1 12/11/22 06:35: Sodium Level 135, Potassium Level 5.0, Chloride Level 106, Carbon Dioxide Level 20L, Anion Gap 9, Blood Urea Nitrogen 11, Creatinine 0.57L, Estimat Glomerular Filtration Rate 112, BUN/Creatinine Ratio 19, Glucose Level 103, Calcium Level 7.9L, Corrected Calcium 9.2, Total Bilirubin 1.1H, Aspartate Amino Transf (AST/SGOT) 44H, Alanine Aminotransferase (ALT/SGPT) 18, Alkaline Phosphatase 101, Total Protein 5.3L, Albumin 2.4L 12/13/22 05:05: White Blood Count 9.1, Red Blood Count 3.01L, Hemoglobin 10.6L, Hematocrit 31L, Mean Corpuscular Volume 102H, Mean Corpuscular Hemoglobin 35H, Mean Corpuscular Hemoglobin Concent 34, Red Cell Distribution Width 13.5, Platelet Count 209, Mean Platelet Volume 9.4, Immature Granulocyte % (Auto) 0, Neutrophils (%) (Auto) 76H, Lymphocytes (%) (Auto) 12, Monocytes (%) (Auto) 9, Eosinophils (%) (Auto) 2, Basophils (%) (Auto) 0, Neutrophils # (Auto) 6.9, Lymphocytes # (Auto) 1.1, Monocytes # (Auto) 0.8, Eosinophils # (Auto) 0.2, Basophils # (Auto) 0.0, Immature Granulocyte # (Auto) 0.0, Sodium Level 135, Potassium Level 3.3L, Chloride Level 104, Carbon Dioxide Level 21, Anion Gap 10, Blood Urea Nitrogen 11, Creatinine 0.57L, Estimat Glomerular Filtration Rate 112, BUN/Creatinine R atio 19, Glucose Level 102, Calcium Level 8.1L, Corrected Calcium 9.3, Total Bilirubin 1.2H, Aspartate Amino Transf (AST/SGOT) 25, Alanine Aminotransferase (ALT/SGPT) 11, Alkaline Phosphatase 102, Total Protein 5.2L, Albumin 2.5L 12/15/22 07:00: White Blood Count 8.8, Red Blood Count 2.80L, Hemoglobin 9.6L, Hematocrit 29L, Mean Corpuscular Volume 103H, Mean Corpuscular Hemoglobin 34, Mean Corpuscular Hemoglobin Concent 33, Red Cell Distribution Width 13.4, Platelet Count 259, Mean Platelet Volume 9.5, Immature Granulocyte % (Auto) 1, Neutrophils (%) (Auto) 72, Lymphocytes (%) (Auto) 16, Monocytes (%) (Auto) 9, Eosinophils (%) (Auto) 2, Basophils (%) (Auto) 0, Neutrophils # (Auto) 6.3, Lymphocytes # (Auto) 1.4, Monocytes # (Auto) 0.8, Eosinophils # (Auto) 0.2, Basophils # (Auto) 0.0, Immature Granulocyte # (Auto) 0.0, Sodium Level 136, Potassium Level 3.3L, Chloride Level 104, Carbon Dioxide Level 22, Anion Gap 10, Blood Urea Nitrogen 10, Creatinine 0.59L, Estimat Glomerular Filtration Rate 111, BUN/Creatinine Ratio 17, Glucose Level 102, Calcium Level 8.0L, Corrected Calcium 9.2, Total Bilirubin 1.0, Aspartate Amino Transf (AST/SGOT) 28, Alanine Aminotransferase (ALT/SGPT) 15, Alkaline Phosphatase 95, Total Protein 5.1L, Albumin 2.5L 12/20/22 06:00: Sodium Level 138, Potassium Level 3.8, Chloride Level 106, Carbon Dioxide Level 22, Anion Gap 10, Blood Urea Nitrogen 11, Creatinine 0.63, Estimat Glomerular Filtration Rate 109, BUN/Creatinine Ratio 17, Glucose Level 98, Calcium Level 8.1L, Corrected Calcium 9.3, Total Bilirubin 0.6, Aspartate Amino Transf (AST/SGOT) 32, Alanine Aminotransferase (ALT/SGPT) 13, Alkaline Phosphatase 95, Total Protein 5.7L, Albumin 2.5L 12/20/22 07:03: White Blood Count 8.4, Red Blood Count 3.93L, Hemoglobin 12.5#L, Hematocrit 37L, Mean Corpuscular Volume 94, Mean Corpuscular Hemoglobin 32, Mean Corpuscular Hemoglobin Concent 34, Red Cell Distribution Width 12.7, Platelet Count 213, Mean Platelet Volume 9.8, Immature Granulocyte % (Auto) 1, Neutrophils (%) (Auto) 75, Lymphocytes (%) (Auto) 14, Monocytes (%) (Auto) 10, Eosinophils (%) (Auto) 1, Basophils (%) (Auto) 0, Neutrophils # (Auto) 6.3, Lymphocytes # (Auto) 1.2, Monocytes # (Auto) 0.8, Eosinophils # (Auto) 0.1, Basophils # (Auto) 0.0, Immature Granulocyte # (Auto) 0.0 Pending Labs Laboratory Tests 12/11/22 06:00: White Blood Count 9.0, Red Blood Count 2.86, Hemoglobin 10.2, Hematocrit 30, Mean Corpuscular Volume 105, Mean Corpuscular Hemoglobin 36, Mean Corpuscular Hemoglobin Concent 34, Red Cell Distribution Width 14.2, Platelet Count 125, Mean Platelet Volume 10.3, Immature Granulocyte % (Auto) 1, Neutrophils (%) (Auto) 78, Lymphocytes (%) (Auto) 10, Monocytes (%) (Auto) 8, Eosinophils (%) (Auto) 2, Basophils (%) (Auto) 0, Neutrophils # (Auto) 7.1, Lymphocytes # (Auto) 0.9, Monocytes # (Auto) 0.8, Eosinophils # (Auto) 0.2, Basophils # (Auto) 0.0, Immature Granulocyte # (Auto) 0.1, Percent Immature Platelet Fraction 3.1 12/11/22 06:35: Sodium Level 135, Potassium Level 5.0, Chloride Level 106, Carbon Dioxide Level 20, Anion Gap 9, Blood Urea Nitrogen 11, Creatinine 0.57, Estimat Glomerular Filtration Rate 112, BUN/Creatinine Ratio 19, Glucose Level 103, Calcium Level 7.9, Corrected Calcium 9.2, Total Bilirubin 1.1, Aspartate Amino Transf (AST/SGOT) 44, Alanine Aminotransferase (ALT/SGPT) 18, Alkaline Phosphatase 101, Total Protein 5.3, Albumin 2.4 12/13/22 05:05: White Blood Count 9.1, Red Blood Count 3.01, Hemoglobin 10.6, Hematocrit 31, Me an Corpuscular Volume 102, Mean Corpuscular Hemoglobin 35, Mean Corpuscular Hemoglobin Concent 34, Red Cell Distribution Width 13.5, Platelet Count 209, Mean Platelet Volume 9.4, Immature Granulocyte % (Auto) 0, Neutrophils (%) (Auto) 76, Lymphocytes (%) (Auto) 12, Monocytes (%) (Auto) 9, Eosinophils (%) (Auto) 2, Basophils (%) (Auto) 0, Neutrophils # (Auto) 6.9, Lymphocytes # (Auto) 1.1, Monocytes # (Auto) 0.8, Eosinophils # (Auto) 0.2, Basophils # (Auto) 0.0, Immature Granulocyte # (Auto) 0.0, Sodium Level 135, Potassium Level 3.3, Chloride Level 104, Carbon Dioxide Level 21, Anion Gap 10, Blood Urea Nitrogen 11, Creatinine 0.57, Estimat Glomerular Filtration Rate 112, BUN/Creatinine Ratio 19, Glucose Level 102, Calcium Level 8.1, Corrected Calcium 9.3, Total Bilirubin 1.2, Aspartate Amino Transf (AST/SGOT) 25, Alanine Aminotransferase (ALT/SGPT) 11, Alkaline Phosphatase 102, Total Protein 5.2, Albumin 2.5 12/15/22 07:00: White Blood Count 8.8, Red Blood Count 2.80, Hemoglobin 9.6, Hematocrit 29, Mean Corpuscular Volume 103, Mean Corpuscular Hemoglobin 34, Mean Corpuscular Hemoglobin Concent 33, Red Cell Distribution Width 13.4, Platelet Count 259, Mean Platelet Volume 9.5, Immature Granulocyte % (Auto) 1, Neutrophils (%) (Auto) 72, Lymphocytes (%) (Auto) 16, Monocytes (%) (Auto) 9, Eosinophils (%) (Auto) 2, Basophils (%) (Auto) 0, Neutrophils # (Auto) 6.3, Lymphocytes # (Auto) 1.4, Monocytes # (Auto) 0.8, Eosinophils # (Auto) 0.2, Basophils # (Auto) 0.0, Immature Granulocyte # (Auto) 0.0, Sodium Level 136, Potassium Level 3.3, Chloride Level 104, Carbon Dioxide Level 22, Anion Gap 10, Blood Urea Nitrogen 10, Creatinine 0.59, Estimat Glomerular Filtration Rate 111, BUN/Creatinine Ratio 17, Glucose Level 102, Calcium Level 8.0, Corrected Calcium 9.2, Total Bilirubin 1.0, Aspartate Amino Transf (AST/SGOT) 28, Alanine Aminotransferase (ALT/SGPT) 15, Alkaline Phosphatase 95, Total Protein 5.1, Albumin 2.5 12/20/22 06:00: Sodium Level 138, Potassium Level 3.8, Chloride Level 106, Carbon Dioxide Level 22, Anion Gap 10, Blood Urea Nitrogen 11, Creatinine 0.63, Estimat Glomerular Filtration Rate 109, BUN/Creatinine Ratio 17, Glucose Level 98, Calcium Level 8.1, Corrected Calcium 9.3, Total Bilirubin 0.6, Aspartate Amino Transf (A ST/SGOT) 32, Alanine Aminotransferase (ALT/SGPT) 13, Alkaline Phosphatase 95, Total Protein 5.7, Albumin 2.5 12/20/22 07:03: White Blood Count 8.4, Red Blood Count 3.93, Hemoglobin 12.5, Hematocrit 37, Mean Corpuscular Volume 94, Mean Corpuscular Hemoglobin 32, Mean Corpuscular Hemoglobin Concent 34, Red Cell Distribution Width 12.7, Platelet Count 213, Mean Platelet Volume 9.8, Immature Granulocyte % (Auto) 1, Neutrophils (%) (Auto) 75, Lymphocytes (%) (Auto) 14, Monocytes (%) (Auto) 10, Eosinophils (%) (Auto) 1, Basophils (%) (Auto) 0, Neutrophils # (Auto) 6.3, Lymphocytes # (Auto) 1.2, Monocytes # (Auto) 0.8, Eosinophils # (Auto) 0.1, Basophils # (Auto) 0.0, Immature Granulocyte # (Auto) 0.0 Discharge Home Medications: Active Scripts Active Reglan (Metoclopramide HCl) 10 Mg Tablet 10 Mg PO Q6H Polyethylene Glycol 3350 17 Gram Powd.pack 17 Gm PO BID Senna Lax (Sennosides) 8.6 Mg Tablet 8.6 Mg PO BID Multi-Vitamin Daily (Multivitamin) 1 Each Tablet 1 Each PO DAILY Folic Acid 1 Mg Tablet 1 Mg PO DAILY Pantoprazole Sodium 40 Mg Tablet.dr 40 Mg PO DAILY Reported Furosemide 40 Mg Tablet 40 Mg PO DAILY PRN Albuterol Sulfate 2.5 Mg/3 Ml (0.083 %) Vial.neb 1 Vial PO BID PRN Proventil Hfa (Albuterol Sulfate) 6.7 Gm Hfa.aer.ad 1 Puff PO Q6H PRN Klor-Con 10 (Potassium Chloride) 10 Meq Tablet.er 10 Meq PO DAILY Advil (Ibuprofen) 200 Mg Capsule 400 Mg PO Q8H PRN Magnesium Oxide 400 Mg Tablet 400 Mg PO DAILY Atenolol 25 Mg Tablet 25 Mg PO DAILY Ativan (Lorazepam) 0.5 Mg Tablet 0.5 Mg PO BID PRN Instructions to patient/family Please see electronic discharge instructions given to patient. Diagnosis/Problems Diagnosis/Problems (1) Debility Status: Acute (2) Left lower lobe pneumonia Status: Acute (3) Sacral decubitus ulcer Status: Acute (4) Alcohol dependence Status: Acute (5) Colon distention (6) Left-sided weakness Status: Acute (7) Hypertension Status: Chronic (8) Neuropathy Status: Chronic (9) Anxiety Status: Chronic (10) Gout (11) COPD (chronic obstructive pulmonary disease) HARDY CAMPBELL DO Dec 23, 2022 05:19
[2022-12-23] MEDS: MULTIVIT W/MINERALS TAB (THERAGRAN M) PO SCH (06:11)
[2022-12-23] MEDS: DICYCLOMINE 10 MG (BENTYL) CAP PO SCH (06:11)
[2022-12-23] MEDS: PANTOPRAZOLE 40 MG (PROTONIX) TAB PO SCH (06:11)
[2022-12-23] MEDS: MAGNESIUM OXIDE (MAG-OX)400 MG TAB PO SCH (06:11)
[2022-12-23 07:02] VITALS: BP 94/125
[2022-12-23 07:03] VITALS: BP 153/81
[2022-12-23] MEDS: ATENOLOL 25 MG (TENORMIN) TAB PO SCH (08:11)
[2022-12-23] MEDS: MICONAZOLE 2% POWDER (DESENEX AF) 90 GM TOP SCH (08:11)
[2022-12-23] MEDS: KCL 10 MEQ TAB (MICRO K) PO SCH (08:11)
[2022-12-23] MEDS: FOLIC ACID 1 MG TAB PO SCH (08:11)
[2022-12-23] MEDS: METOCLOPRAMIDE INJ 10 MG/2 ML (REGLAN) IVP SCH (08:13)
[2022-12-23] MEDS: polyethylene glycoL POWDER 17 GM (MIRALAX) PACK PO SCH (08:13)
[2022-12-23] MEDS: DOCUSATE SODIUM 100 MG (COLACE) CAP PO SCH (08:13)
[2022-12-23] MEDS: SENNOSIDES 8.6 MG (SENOKOT) TAB PO SCH (08:13)
--- NOTE | 2022-12-23 09:35 | Therapy Team Discharge Summary ---
Therapy Discharge Summary Discharge Recommendations Date of Discharge Physical Therapy Patient came to rehab with PNA, debility. Upon evaluation patient performs rolling with SBA, supine <-> sit min assist, sit <-> stand and transfers max assist, car transfer max assist, dependent for WC mobility, no ambulation. P [place] has been performing bed mobility and transfer training, balance and endurance training, functional strengthening, gait training, and education. Patient has made some progress but has only met his custodial goals for transfers and picking up an object from the floor. Now, patient performs rolling with SBA, supine to sit min assist, sit to supine SBA, sit <-> stand mod assist, transfers CGA, car transfer mod assist, can ambulate 30' with a rolling walker with CGA (including 10' over an uneven surface), can propel a manual WC 100'x2 with SBA, and can shrimp picker an object from the floor using a public works laborer with CGA. Patient is being discharged from this facility today and will be discharged from PT at this time. Roll Left to Right (QC): 4 Sit to Lying (QC): 3 Lying to Sitting/Side of Bed(Q: 4 Sit to Stand (QC): 3 Chair/Yic-ra-Tvvsl Xfer(QC): 3 Toilet Transfer (QC): 3 Car Transfer (QC): 3 Does the Patient Walk: Yes Walk 10 feet (QC): 4 Walk 50 ft with 2 Turns(QC): 88 Walk 150 ft (QC): 88 Walking 10ft on uneven surface: 4 Gait Assistive Device: FWW Does the Pt Use a Wheelchair: Yes Wheel 50 ft with 2 turns (QC): 4 Wheel 150 ft (QC): 88 Type of Wheelchair: Manual 1 Step (curb) (QC): 88 4 Steps (QC): 88 12 Steps (QC): 88 Balance Sitting Static: Normal Balance Sitting Dynamic: Normal Balance-Standing Static: Poor Picking up an Object (QC): 4 (CGA using an extended public works laborer) Occupational Therapy Decreased Activ Tolerance, Impaired Funct Balance, Impaired Self-Care Skills Eating (QC): 6 Oral Hygiene (QC): 6 Shower/Bathe Self (QC): 6 Upper Body Dressing (QC): 5 Lower Body Dressing (QC): 3 On/Off Footwear (QC): 3 Toileting Hygiene (QC): 2 PT Skilled Nursing Goals Programmer Analyst Goals PT Skilled Nursing Goals Time Frame: Dec 24, 2022 Roll Left to Right (QC): 6 Sit to Lying (QC): 6 Lying-Sitting on Side/Bed(QC): 6 Sit to Stand (QC): 4 (CGA) Chair/Vvb-rc-Rrtnb Xfer(QC): 4 (CGA) Toilet/Commode Transfer (QC): 4 (CGA) Car Transfer (QC): 3 (Diana) Does the Patient Walk: No and Walking Goal IS indicated Walk 10 feet (QC): 4 (CGA) Walk 10ft-Uneven Surface(QC): 4 (CA) Walk 50ft with 2 Turns (QC): 4 (CGA) Walk 150 ft (QC): 88 Wheel 50 feet with 2 turns (QC: 4 (SBA) Wheel 150 feet: 4 (SBA) 1 Step (curb) (QC): 88 4 Steps (QC): 88 12 Steps (QC): 88 Picking up an Object (QC): 4 (CGA using a public works laborer) OT Skilled Nursing Goals Programmer Analyst Goals Time Frame: Jan 07, 2023 Acute change in mental status: 0 Inattention: 0 Disorganized thinkin Altered level of consciousness: 0 Eating (QC): 6 (met) Oral Hygiene (QC): 6 (met) Toileting Hygiene (QC): 6 Shower/Bathe Self (QC): 6 Upper Body Dressing (QC): 6 Lower Body Dressing (QC): 6 On/Off Footwear (QC): 6 Additional Goals: 1-Demonstrate ADL Tasks, 2-Verbalize Understanding, 3- ImproveStrength/Francesca 1=Demonstrate adherence to instructed precautions during ADL tasks. 2=Patient will verbalize/demonstrate understanding of assistive devices/modifications for ADL. 3=Patient will improve strength/tolerance for activity to enable patient to perform ADL's. KRISTINE HAWK PT Dec 23, 2022 09:35
--- NOTE | 2022-12-23 10:57 | Therapy Team Discharge Summary ---
Therapy Discharge Summary Discharge Recommendations Date of Discharge Physical Therapy Roll Left to Right (QC): 4 Sit to Lying (QC): 3 Lying to Sitting/Side of Bed(Q: 4 Sit to Stand (QC): 3 Chair/Zwh-mc-Umdpc Xfer(QC): 3 Toilet Transfer (QC): 3 Car Transfer (QC): 3 Does the Patient Walk: Yes Walk 10 feet (QC): 4 Walk 50 ft with 2 Turns(QC): 88 Walk 150 ft (QC): 88 Walking 10ft on uneven surface: 4 Gait Assistive Device: FWW Does the Pt Use a Wheelchair: Yes Wheel 50 ft with 2 turns (QC): 4 Wheel 150 ft (QC): 88 Type of Wheelchair: Manual 1 Step (curb) (QC): 88 4 Steps (QC): 88 12 Steps (QC): 88 Balance Sitting Static: Normal Balance Sitting Dynamic: Normal Balance-Standing Static: Poor Picking up an Object (QC): 4 (CGA using an extended offal trimmer) Occupational Therapy Pt admitted to ARU with PNA and debility. At [facility], pt was independent with ADLS and functional mobility without AD. Upon initial evaluation, pt required set up with eating, SBA oral care, mod A UE dressing, and total assist with showering, LE Dressing, footwear and toileting. OT Tx focused on increasing BUE Strength and activity tolerance, and increasing safety and independence with ADLS and functional mobility. Pt made functional progress towards goals, but only attained LTG for eating and oral care. Pt discharging today home with spouse, d/c from OT. Decreased Activ Tolerance, Impaired Funct Balance, Impaired Self-Care Skills Eating (QC): 6 Oral Hygiene (QC): 6 Shower/Bathe Self (QC): 6 Upper Body Dressing (QC): 5 Lower Body Dressing (QC): 3 On/Off Footwear (QC): 3 Toileting Hygiene (QC): 2 PT Pe Teacher Goals Pe Teacher Goals PT Retirement Goals Time Frame: Dec 24, 2022 Roll Left to Right (QC): 6 Sit to Lying (QC): 6 Lying-Sitting on Side/Bed(QC): 6 Sit to Stand (QC): 4 (CGA) Chair/Cgn-cu-Boalx Xfer(QC): 4 (CGA) Toilet/Commode Transfer (QC): 4 (CGA) Car Transfer (QC): 3 (Diana) Does the Patient Walk: No and Walking Goal IS indicated Walk 10 feet (QC): 4 (CGA) Walk 10ft-Uneven Surface(QC): 4 (CA) Walk 50ft with 2 Turns (QC): 4 (CGA) Walk 150 ft (QC): 88 Wheel 50 feet with 2 turns (QC: 4 (SBA) Wheel 150 feet: 4 (SBA) 1 Step (curb) (QC): 88 4 Steps (QC): 88 12 Steps (QC): 88 Picking up an Object (QC): 4 (CGA using a offal trimmer) OT Retirement Goals Pe Teacher Goals Time Frame: Jan 07, 2023 Acute change in mental status: 0 Inattention: 0 Disorganized thinkin Altered level of consciousness: 0 Eating (QC): 6 (met) Oral Hygiene (QC): 6 (met) Toileting Hygiene (QC): 6 (not met) Shower/Bathe Self (QC): 6 (not met) Upper Body Dressing (QC): 6 (not met) Lower Body Dressing (QC): 6 (not met) On/Off Footwear (QC): 6 (not met) Additional Goals: 1-Demonstrate ADL Tasks, 2-Verbalize Understanding, 3-ImproveStrength/Francesca 1=Demonstrate adherence to instructed precautions during ADL tasks. 2=Patient will verbalize/demonstrate understanding of assistive devices/modifications for ADL. 3=Patient will improve strength/tolerance for activity to enable patient to perform ADL's. WILFREDO CORLEY OT Dec 23, 2022 10:57
[2022-12-23 11:23] VITALS: BP 153/81
== END 2022-12-23 11:15 | disposition home health service (06) | DRG 947 ==
PROVIDERS: ADMIT Internal Medicine; ATTEND Internal Medicine
DX: R53.81 Other malaise (principal); J18.9 Pneumonia, unspecified organism; K56.7 Ileus, unspecified; I69.354 Hemiplegia and hemiparesis following cerebral infarction affecting left non-dominant side; E87.20 Acidosis, unspecified; F10.20 Alcohol dependence, uncomplicated; G62.9 Polyneuropathy, unspecified; L89.151 Pressure ulcer of sacral region, stage 1; Z66 Do not resuscitate; I48.91 Unspecified atrial fibrillation; J43.9 Emphysema, unspecified; I34.1 Nonrheumatic mitral (valve) prolapse; E78.00 Pure hypercholesterolemia, unspecified; I10 Essential (primary) hypertension; K52.9 Noninfective gastroenteritis and colitis, unspecified; M19.91 Primary osteoarthritis, unspecified site; H91.90 Unspecified hearing loss, unspecified ear; M10.9 Gout, unspecified; F41.9 Anxiety disorder, unspecified; E66.01 Morbid (severe) obesity due to excess calories; R15.9 Full incontinence of feces; R32 Unspecified urinary incontinence; F32.A Depression, unspecified; R00.0 Tachycardia, unspecified; K70.9 Alcoholic liver disease, unspecified; Z68.31 Body mass index [BMI] 31.0-31.9, adult; Z95.5 Presence of coronary angioplasty implant and graft; Z91.81 History of falling; Z87.891 Personal history of nicotine dependence; Z88.2 Allergy status to sulfonamides
CPT/HCPCS: 36415; 74018; 74019; 80053; 85025; 94640; 94760

== ENCOUNTER → 2023-01-06 | Outpatient (CLI) | payer BC ==
[~2023-01-06] MED LIST changes: +METO-310 PO; +SNN187T PO
== END ==
LOC: CARD 12:38
PROVIDERS: ATTEND Internal Medicine Cardiovascular Disease
DX: I10 Essential (primary) hypertension (principal); I25.10 Atherosclerotic heart disease of native coronary artery without angina pectoris
CPT/HCPCS: 93306

== ENCOUNTER → 2023-02-09 | Outpatient (CLI) | payer BC ==
[~2023-02-09] MED LIST changes: +CATHETER FLUSH 10 ML SYR IVP PRN; +REGADENOSON 0.4 MG/5 ML SYR (LEXISCAN) IV ONE
[2023-02-09 13:05] VITALS: BP 144/91
--- NOTE | 2023-02-10 07:54 | Cardiology Stress Test Report ---
Stress Test Report Date of Procedure/Referring: Date of Procedure: Feb 10, 2023 PCP Romana Martínez DO Admitting Physician Admitting Physician: Attending Physician: Hui Walker MD Baseline Heart Rate: 80 Baseline Blood Pressure: Blood Pressure Systolic: 144 Blood Pressure Diastolic: 91 Baseline Vitals Vital Signs Date Time Temp Pulse Resp B/P (MAP) Pulse Ox O2 Delivery O2 Flow Rate FiO2 02/09/23 13:05 80 144/91 (108) Baseline EKG: Baseline EKG: NSR Summary After explaining the procedure to the patient, he signed a consent and then brought to the stress nuclear laboratory. Patient received 0.4 mg Lexiscan for stress test, ECG, heart rate and blood pressure were monitored continuously. Resting and stress dose of radio tracer were injected, imaging was acquired and reviewed in short axis, horizontal long axis and vertical long axis views. TID: 0.95 SSS: 6 SDS: 3 EF: 62 Patient tolerated Lexiscan well Extracardiac attenuation with diaphragmatic attenuation and the left arm being down affecting the quality of the images, there is decreased uptake involving the mid to apical inferior wall and inferolateral wall. Overall the stress images appeared better than the resting images. No significant ischemia or infarction noted on SPECT images Normal left ventricular size, ejection fraction 62% Copy Copies To 1: ROMAAN MARTÍNEZ BASHAR J MD Feb 10, 2023 07:54
== END ==
LOC: CARD 11:09
PROVIDERS: ATTEND Internal Medicine Cardiovascular Disease
DX: I25.10 Atherosclerotic heart disease of native coronary artery without angina pectoris (principal); I10 Essential (primary) hypertension
CPT/HCPCS: 78452; 93017

== ENCOUNTER 2023-02-10 09:52 | Outpatient (CLI) | payer BC ==
[~2023-02-10] VITALS: Ht 177.8 cm; Wt 108.3 kg
[~2023-02-10 09:52] MED LIST changes: -CATHETER FLUSH 10 ML SYR IVP PRN; -REGADENOSON 0.4 MG/5 ML SYR (LEXISCAN) IV ONE
[2023-02-10 10:26] VITALS: BP 102/62
== END 2023-02-10 10:10 | disposition home or self-care (01) ==
LOC: SDC 09:52
PROVIDERS: ATTEND Internal Medicine
DX: Z45.2 Encounter for adjustment and management of vascular access device (principal)
CPT/HCPCS: 96523

== ENCOUNTER → 2023-03-15 | Outpatient (CLI) | payer BC, MEDICARE ==
[2023-03-15 10:35] VITALS: BP 112/66
== END ==
LOC: SDC 10:28
PROVIDERS: ATTEND Internal Medicine
DX: Z45.2 Encounter for adjustment and management of vascular access device (principal)
CPT/HCPCS: 96523

== ENCOUNTER 2023-04-09 19:02 | Emergency (ER) | payer BC, MEDICARE ==
--- NOTE | 2023-04-09 19:51 | ED Cough/URI ---
General Chief Complaint: Cough/Cold/Flu Symptoms Stated Complaint: CONGESTION Source: patient, family () Exam Limitations: no limitations History of Present Illness Date Seen by Provider: Apr 09, 2023 Time Seen by Provider: 19:36 Initial Comments 62-year-old male presents to the emergency department today for chest congestion. 2 weeks ago he started to have symptoms and was seen at the urgent care. He states he went in for 3 days and Levaquin, steroid injections and started to feel better. About 3 to 4 days ago he started to have chest congestion once again. He does feel short of breath, especially with exertion. No chest pain. No fevers or chills. He feels like he needs to cough something up but is unable to do so. No sick contacts. Does have a history of COPD. He is not on chronic oxygen therapy. Does also have a history of a CVA. He quit drinking in November after he drank heavily for several years. All other systems reviewed and negative except documented per HPI. Voice recognition software was used to help create this chart Allergies and Home Medications Allergies Coded Allergies: Sulfa (Sulfonamide Antibiotics) (Verified Allergy, Unknown, 09/11/22) Uncoded Allergies: SULFA (Allergy, Unknown, 01/24/22) Patient Home Medication List Home Medication List Reviewed: Yes Albuterol Sulfate (Proventil Hfa) 6.7 Gm Hfa.aer.ad, 1 PUFF PO Q6H PRN for SHORTNESS OF BREATH, (Reported) Entered as Reported by: AIXA TAYLOR on 12/06/22 1335 Albuterol Sulfate (Albuterol Sulfate) 2.5 Mg/3 Ml (0.083 %) Vial.neb, 1 VIAL PO BID PRN for SHORTNESS OF BREATH, (Reported) Entered as Reported by: AIXA TAYLOR on 12/06/22 1336 Atenolol (Atenolol) 25 Mg Tablet, 25 MG PO DAILY, (Reported) Entered as Reported by: AVA BELTRÁN on 09/09/20 1526 Folic Acid (Folic Acid) 1 Mg Tablet, 1 MG PO DAILY Prescribed by: HARDY CAMPBELL on 12/23/22 0517 Furosemide (Furosemide) 40 Mg Tablet, 40 MG PO DAILY PRN for FLUID RETENTION, (Reported) Entered as Reported by: AIXA TAYLOR on 12/06/22 1336 Ibuprofen (Advil) 200 Mg Capsule, 400 MG PO Q8H PRN for PAIN-MILD (1-4), (Reported) Entered as Reported by: AVA BELTRÁN on 01/25/22 1015 Lorazepam (Ativan) 0.5 Mg Tablet, 0.5 MG PO BID PRN for ANXIETY, (Reported) Entered as Reported by: AVA BELTRÁN on 09/09/20 1526 Magnesium Oxide (Magnesium Oxide) 400 Mg Tablet, 400 MG PO DAILY, (Reported) Entered as Reported by: AAV BELTRÁN on 01/25/22 1015 Metoclopramide HCl (Reglan) 10 Mg Tablet, 10 MG PO Q6H Prescribed by: HARDY CAMPBELL on 12/23/22516 Multivitamin (Multi-Vitamin Daily) 1 Each Tablet, 1 EACH PO DAILY Prescribed by: HARDY CAMPBELL on 12/23/22516 Pantoprazole Sodium (Pantoprazole Sodium) 40 Mg Tablet.dr, 40 MG PO DAILY Prescribed by: HARDY CAMPBELL on 12/23/22516 Polyethylene Glycol 3350 (Polyethylene Glycol 3350) 17 Gram Powd.pack, 17 GM PO BID Prescribed by: HARDY CAMPBELL on 12/23/22516 Potassium Chloride (Klor-Con 10) 10 Meq Tablet.er, 10 MEQ PO DAILY, (Reported) Entered as Reported by: AVA BELTRÁN on 01/25/22 1016 Sennosides (Senna Lax) 8.6 Mg Tablet, 8.6 MG PO BID Prescribed by: HARDY CAMPBELL on 12/23/22516 Review of Systems Review of Systems Constitutional: see HPI Past Cucpacf-Hxyaex-Riczmi Hx Patient Social History Tobacco Use?: Yes Smoking Status: Former Smoker Use of E-Cig and/or Vaping dev: No Substance use?: No Alcohol Use?: No (Formerly drank heavily, quit in November) Immunizations Up To Date PED Vaccines UTD: Yes First/Initial COVID19 Vaccinat: 2020 Second COVID19 Vaccination Tiburcio: 2020 Third COVID19 Vaccination Date: 2020 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 "ALL OF 'EM" Seasonal Allergies Seasonal Allergies: Yes Past Medical History Surgery/Hospitalization HX: HTN, ANX/DEP, ETOH, STROKE- L SIDE WEAKNESS, PROBABLE HEPATITIS, PVD, NEUROPATHY, BENIGN TUMOR ON BLADDER, UNSURE IF HAS AFIB Surgeries: Yes (20 YEARS AGO TUMOR REMOVED ( NON CANCER ) ON BLADDER) Respiratory: Yes COPD Currently Using CPAP: No Currently Using BIPAP: No Cardiac: Yes (MITRAL VALVE PROLAPSE) High Cholesterol, Hypertension Neurological: Yes Stroke Sexually Transmitted Disease: No HIV/AIDS: No Genitourinary: Yes Bladder Infection Gastrointestinal: Yes (IBS) Chronic Diarrhea, Irritable Bowel Musculoskeletal: Yes Arthritis, Chronic Back Pain Endocrine: No HEENT: Yes Hearing Impairment: Hard of Hearing Cancer: No Psychosocial: Yes (Alcohol dependence) Anxiety Integumentary: Yes (currently being treated by wound care for wound on R foot) Blood Disorders: No Adverse Reaction/Blood Tranf: No Family Medical History FH: neuropathy 19 MOTHER Mitral valve prolapse 19 MOTHER No Pertinent Family Hx, Heart Disease Physical Exam Vital Signs - First Documented 04/09/23 19:37 Temp 36.4 Pulse 80 Resp 16 B/P (MAP) 146/84 (104) Pulse Ox 97 O2 Delivery Room Air Capillary Refill : Height: 6'2.00" Weight: 220lbs. 8.8oz. 100.516028zt; 31.54 BMI Method:Stated General Appearance: WD/WN, no apparent distress HEENT: normal ENT inspection, pharynx normal Neck: non-tender, supple Respiratory: chest non-tender, no respiratory distress, no accessory muscle use, other (Decreased breath sounds throughout without any focal adventitial sounds) Cardiovascular: regular rate, rhythm, no murmur Gastrointestinal: normal bowel sounds, non tender, soft Extremities: normal range of motion, non-tender Neurologic/Psychiatric: alert, normal mood/affect, oriented x 3 Skin: normal color, warm/dry Progress/Results/Core Measures Suspected Sepsis SIRS Temperature: Pulse: Respiratory Rate: Laboratory Tests 04/09/23 20:30: White Blood Count 13.2H Blood Pressure / Mean: Laboratory Tests 04/09/23 20:30: Creatinine 0.87, Platelet Count 262, Total Bilirubin 1.4H Results/Orders Lab Results Laboratory Tests Test 04/09/23 20:30 Range/Units White Blood Count 13.2 H 4.3-11.0 10^3/uL Red Blood Count 4.99 4.30-5.52 10^6/uL Hemoglobin 15.1 13.3-17.7 g/dL Hematocrit 44 40-54 % Mean Corpuscular Volume 89 80-99 fL Mean Corpuscular Hemoglobin 30 25-34 pg Mean Corpuscular Hemoglobin Concent 34 32-36 g/dL Red Cell Distribution Width 13.3 10.0-14.5 % Platelet Count 262 130-400 10^3/uL Mean Platelet Volume 9.4 9.0-12.2 fL Immature Granulocyte % (Auto) 0 % Neutrophils (%) (Auto) 76 H 42-75 % Lymphocytes (%) (Auto) 16 12-44 % Monocytes (%) (Auto) 6 0-12 % Eosinophils (%) (Auto) 1 0-10 % Basophils (%) (Auto) 1 0-10 % Neutrophils # (Auto) 10.0 H 1.8-7.8 10^3/uL Lymphocytes # (Auto) 2.1 1.0-4.0 10^3/uL Monocytes # (Auto) 0.8 0.0-1.0 10^3/uL Eosinophils # (Auto) 0.2 0.0-0.3 10^3/uL Basophils # (Auto) 0.1 0.0-0.1 10^3/uL Immature Granulocyte # (Auto) 0.1 0.0-0.1 10^3/uL Sodium Level 141 135-145 MMOL/L Potassium Level 3.5 L 3.6-5.0 MMOL/L Chloride Level 105 98-107 MMOL/L Carbon Dioxide Level 22 21-32 MMOL/L Anion Gap 14 5-14 MMOL/L Blood Urea Nitrogen 21 H 7-18 MG/DL Creatinine 0.87 0.60-1.30 MG/DL Estimat Glomerular Filtration Rate 99 BUN/Creatinine Ratio 24 Glucose Level 104 70-105 MG/DL Calcium Level 10.5 H 8.5-10.1 MG/DL Corrected Calcium 10.3 H 8.5-10.1 MG/DL Total Bilirubin 1.4 H 0.1-1.0 MG/DL Aspartate Amino Transf (AST/SGOT) 22 5-34 U/L Alanine Aminotransferase (ALT/SGPT) 16 0-55 U/L Alkaline Phosphatase 109 40-136 U/L Total Protein 7.8 6.4-8.2 GM/DL Albumin 4.3 3.2-4.5 GM/DL My Orders Orders - CATALINAKIRSTEN L DO Chest Pa/Lat (2 View) (6/3/23 19:49) Comprehensive Metabolic Panel (04/09/23 19:52) Cbc With Automated Diff (04/09/23 19:52) Vital Signs/I&O 04/09/23 19:37 Temp 36.4 Pulse 80 Resp 16 B/P (MAP) 146/84 (104) Pulse Ox 97 O2 Delivery Room Air Capillary Refill : Departure Communication (Admissions) Chest x-ray shows stable left pleural effusion on my read. I have independently reviewed the images no other acute abnormalities. He is afebrile, no evidence for pneumonia at this time. He is slightly helpful hypercalcemic. Advised him to increase his fluids at home. There is no evidence for cardiac cause of his symptoms at this time. Liver enzymes are normal. No evidence for emergent medical condition currently. Discharged in stable condition. Impression Primary Impression: Pleural effusion Disposition: HOME, SELF-CARE Condition: Stable Departure-Patient Inst. Referrals: HARDY CAMPBELL DO (PCP) Primary Care Physician Patient Instructions: Pleural Effusion (DC) Add. Discharge Instructions: The fluid next to your lung on the left side is stable. This is likely what is causing your symptoms however he does not large enough to drain at this time. Talk to your primary doctor about some possible diuretics which may help some. Increase your fluids at home, rest as needed. Return to the emergency department for any severe concerns All discharge instructions reviewed with patient and/or family. Voiced understanding. KIRSTEN ARNOLD DO Apr 09, 2023 19:51
--- NOTE | 2023-04-09 20:12 | Diagnostic Imaging Report ---
EXAMINATION: Chest (PA and lateral). CLINICAL INDICATION: 62-year-old male, dyspnea. COMPARISON: November 20, 2022. CT chest December 06, 2022. FINDINGS: Heart size and mediastinal contours are unchanged. There is a left-sided port catheter with tip overlying the mid SVC. There is no identified pneumothorax. There is persistent left basilar airspace consolidation and left-sided pleural effusion. This is unchanged. IMPRESSION: 1. Unchanged left pleural effusion and adjacent lung consolidation likely reflecting atelectasis correlating with prior CT chest exam. 2. No evidence of an interval acute cardiopulmonary abnormality. Dictated by: Dictated on workstation # [id number]
[2023-04-09 20:38] LABS: BASOPHILS # (AUTO) 0.1 10^3/uL (0.0-0.1); BASOPHILS % (AUTO) 1 % (0-10); EOSINOPHILS # (AUTO) 0.2 10^3/uL (0.0-0.3); EOSINOPHILS % (AUTO) 1 % (0-10); HEMATOCRIT 44 % (40-54); HEMOGLOBIN 15.1 g/dL (13.3-17.7); LYMPHOCYTES # (AUTO) 2.1 10^3/uL (1.0-4.0); LYMPHOCYTES % (AUTO) 16 % (12-44); MEAN CORPUSCULAR HEMOGLOBIN 30 pg (25-34); MEAN CORPUSCULAR HGB CONC 34 g/dL (32-36); MEAN CORPUSCULAR VOLUME 89 fL (80-99); MEAN PLATELET VOLUME 9.4 fL (9.0-12.2); MONOCYTES # (AUTO) 0.8 10^3/uL (0.0-1.0); MONOCYTES % (AUTO) 6 % (0-12); NEUTROPHILS % (AUTO) 76 % (42-75); PLATELET COUNT 262 10^3/uL (130-400); WHITE BLOOD COUNT 13.2 10^3/uL (4.3-11.0)
[2023-04-09 21:16] LABS: ALBUMIN 4.3 GM/DL (3.2-4.5); POTASSIUM 3.5 MMOL/L (3.6-5.0)
[2023-04-09 21:17] LABS: CALCIUM 10.5 MG/DL (8.5-10.1)
[2023-04-09 21:19] LABS: TOTAL PROTEIN 7.8 GM/DL (6.4-8.2)
[2023-04-09 21:20] LABS: BILIRUBIN,TOTAL 1.4 MG/DL (0.1-1.0)
[2023-04-09 21:22] LABS: CREATININE SERUM 0.87 MG/DL (0.60-1.30)
[2023-04-09 21:44] VITALS: BP 138/78
== END 2023-04-09 21:44 | disposition home or self-care (01) ==
LOC: EDUNIT# 19:02 → ER 19:05
DX: J90 Pleural effusion, not elsewhere classified (principal); Z87.891 Personal history of nicotine dependence
CPT/HCPCS: 36415; 71046; 80053; 85025

== ENCOUNTER → 2023-04-18 | Outpatient (CLI) | payer BC, MEDICARE ==
[2023-04-18 11:00] VITALS: BP 96/77
== END ==
LOC: SDC 10:47
PROVIDERS: ATTEND Internal Medicine
DX: I87.2 Venous insufficiency (chronic) (peripheral) (principal)
CPT/HCPCS: 96523

== ENCOUNTER → 2023-04-20 | Outpatient (CLI) | payer BC, MEDICARE ==
--- NOTE | 2023-04-20 09:46 | Diagnostic Imaging Report ---
EXAMINATION: Chest 2 view HISTORY: Pleural effusion COMPARISON: 04/09/2023 FINDINGS: There is an unchanged moderate left pleural effusion. A left-sided Sdq-G-omequour is present. Loop recorder is present. Heart size is normal. Right lung is clear. No pneumothorax. A rounded nodule laterally in the left lung measuring 2.8 cm is unchanged. IMPRESSION: 1. Unchanged moderate left pleural effusion with an overlying nodular opacity. Dictated by: Dictated on workstation # [id number]
--- NOTE | 2023-04-20 09:47 | Diagnostic Imaging Report ---
EXAMINATION: Chest one view right lateral decubitus. HISTORY: Pleural effusion. COMPARISON: 04/20/2023. FINDINGS: No significant change in the fluid is seen in the right lateral decubitus position. No pneumothorax. No other change is seen. IMPRESSION: 1. No significant change in the appearance of the fluid in the right lateral decubitus position. Dictated by: Dictated on workstation # [id number]
== END ==
LOC: RAD 08:55
PROVIDERS: ATTEND Internal Medicine
DX: J91.8 Pleural effusion in other conditions classified elsewhere (principal)
CPT/HCPCS: 71046

== ENCOUNTER → 2023-05-05 | Outpatient (CLI) | payer BC, MEDICARE ==
[~2023-05-05] MED LIST changes: +HOLD METFORMIN - RECEIVED CONTRAST 20 ML VIAL IV SCH; +IOHEXOL 350 MG/ML 100 ML (OMNIPAQUE 350) VIAL IV ONE; +NS 100 ML (IVPB) BAG IV ONE
--- NOTE | 2023-05-05 12:08 | Diagnostic Imaging Report ---
PROCEDURE: CT chest with contrast only. TECHNIQUE: Multiple contiguous axial images were obtained through the chest after administration of intravenous contrast. Auto Exposure Controls were utilized during the CT exam to meet ALARA standards for radiation dose reduction. INDICATION: Pulmonary neoplasm Comparison: CT of the chest on 12/06/2022, chest radiograph on 04/20/2023. FINDINGS: Unchanged moderate left pleural effusion with associated left lower lobe consolidation and nodular opacity measuring 3.1 x 1.8 cm. No new airspace opacities identified. No airway lesions identified. No lymphadenopathy within the chest. The heart is enlarged. There is fatty infiltration within the left ventricular apex. No pericardial effusion. Included views of the abdomen demonstrate a small liver cyst. Cholelithiasis. No lytic or sclerotic lesions within the thoracic spine. IMPRESSION: Unchanged moderate left pleural effusion with associated left lower lobe consolidation and nodular opacity measuring up to 3.1 cm. Dictated by: Dictated on workstation # [id number]
== END ==
LOC: RAD 09:45
PROVIDERS: ATTEND Internal Medicine
DX: J90 Pleural effusion, not elsewhere classified (principal); D14.30 Benign neoplasm of unspecified bronchus and lung; R91.1 Solitary pulmonary nodule
CPT/HCPCS: 71260

== ENCOUNTER → 2023-05-23 | Outpatient (CLI) | payer BC, MEDICARE ==
[~2023-05-23] MED LIST changes: +CATHETER FLUSH 10 ML SYR IVP PRN; -HOLD METFORMIN - RECEIVED CONTRAST 20 ML VIAL IV SCH; -IOHEXOL 350 MG/ML 100 ML (OMNIPAQUE 350) VIAL IV ONE; -NS 100 ML (IVPB) BAG IV ONE; +POTA-185 PO; -POTA10TA PO; +SENN-341 PO; -SNN187T PO
--- NOTE | 2023-05-24 14:21 | Diagnostic Imaging Report ---
Indication: Initial staging left lower lobe pulmonary nodule. Serum blood glucose level time injection is 106 mm/dL. Patient was administered 10.3 mCi F-18 FDG intravenously in the right forearm and PET imaging was performed from the top skull to mid thighs. Noncontrast CT was also performed for attenuation correction and anatomic correlation. Correlation is made with CT chest study from 05/05/2023. No prior PET imaging is available for comparison. There is symmetric activity throughout the brain. Soft tissues of the neck are unremarkable. No mediastinal or hilar hypermetabolism is identified. Small left effusion is again noted. Area of consolidation left lower lobe is again noted. No FDG avidity is seen at the area of consolidation in the left lower lobe. No concerning pulmonary parenchymal regions of hypermetabolism are detected. Physiologic activity throughout the gastrointestinal genitourinary tract of abdomen pelvis is noted. No suspicious areas of hypermetabolism are identified. IMPRESSION: Small left pleural effusion and left lower lobe consolidation, perhaps on the basis of pneumonia. No suspicious areas of hypermetabolism are identified to suggest neoplasm. Dictated by: Dictated on workstation # [id number]
== END ==
LOC: RAD 12:21
PROVIDERS: ATTEND Internal Medicine
DX: J90 Pleural effusion, not elsewhere classified (principal); J18.1 Lobar pneumonia, unspecified organism; R91.1 Solitary pulmonary nodule
CPT/HCPCS: 78815; 82947; A9552

== ENCOUNTER → 2023-06-02 | Outpatient (CLI) | payer BC, MEDICARE ==
[~2023-06-02] VITALS: Wt 91.0 kg
[~2023-06-02] MED LIST changes: -CATHETER FLUSH 10 ML SYR IVP PRN
[2023-06-02 11:00] VITALS: BP 123/72
== END ==
LOC: SDC 10:25
PROVIDERS: ATTEND Internal Medicine
DX: Z45.2 Encounter for adjustment and management of vascular access device (principal)
CPT/HCPCS: 96523

== ENCOUNTER → 2023-06-06 | Outpatient (RCR) | payer BC, MEDICARE | END | disposition home or self-care (01) | PROVIDERS: ATTEND Internal Medicine | DX: I69.359 Hemiplegia and hemiparesis following cerebral infarction affecting unspecified side (principal) ==

== ENCOUNTER 2023-07-06 10:55 | Outpatient (CLI) | payer BC, MEDICARE ==
[~2023-07-06] VITALS: Ht 188 cm; Wt 91.0 kg
[2023-07-06 11:15] VITALS: BP 123/61
== END 2023-07-06 11:00 | disposition home or self-care (01) ==
LOC: SDC 10:55
PROVIDERS: ATTEND Internal Medicine
DX: Z45.2 Encounter for adjustment and management of vascular access device (principal)
CPT/HCPCS: 96523

== ENCOUNTER → 2023-07-07 | Outpatient (RCR) | payer BC, MEDICARE | END | disposition home or self-care (01) | PROVIDERS: ATTEND Internal Medicine | DX: I69.359 Hemiplegia and hemiparesis following cerebral infarction affecting unspecified side (principal) ==

== ENCOUNTER → 2023-08-10 | Outpatient (CLI) | payer BC, MEDICARE ==
[~2023-08-10] VITALS: Ht 185 cm; Wt 91.0 kg
[2023-08-10 10:45] VITALS: BP 111/72
== END ==
LOC: SDC 10:09
PROVIDERS: ATTEND Internal Medicine
DX: I87.2 Venous insufficiency (chronic) (peripheral) (principal)
CPT/HCPCS: 96523

== ENCOUNTER 2023-09-01 08:15 | Outpatient (RCR) | payer BC, MEDICARE | END 2023-09-06 | disposition home or self-care (01) | PROVIDERS: ATTEND Internal Medicine | DX: I69.359 Hemiplegia and hemiparesis following cerebral infarction affecting unspecified side (principal); I10 Essential (primary) hypertension ==

== ENCOUNTER → 2023-09-15 | Outpatient (CLI) | payer BC, MEDICARE ==
[2023-09-15 11:00] VITALS: BP 106/74
== END ==
LOC: SDC 10:48
PROVIDERS: ATTEND Internal Medicine
DX: Z45.2 Encounter for adjustment and management of vascular access device (principal); I87.2 Venous insufficiency (chronic) (peripheral)
CPT/HCPCS: 96523

== ENCOUNTER → 2023-10-05 | Outpatient (CLI) | payer BC, MEDICARE ==
--- NOTE | 2023-10-05 16:01 | Diagnostic Imaging Report ---
INDICATION: PAIN OF LEFT SHOULDER COMPARISON: None. FINDINGS: Three views of the left shoulder were obtained. There is no fracture, dislocation, or other acute bony abnormality identified. The soft tissues appear unremarkable. No radiopaque foreign body is identified. The visualized portions of the left lung are clear. Port-A-Cath is noted. IMPRESSION: No acute fractures or dislocations of the left shoulder. Dictated by: Dictated on workstation # [id number]
== END ==
LOC: ORTHO 10:25
PROVIDERS: ATTEND Orthopaedic Surgery
DX: M25.512 Pain in left shoulder (principal)
CPT/HCPCS: 20610; 73030; G0463

== ENCOUNTER → 2023-10-06 | Outpatient (RCR) | payer BC, MEDICARE | END | disposition home or self-care (01) | PROVIDERS: ATTEND Internal Medicine | DX: I69.359 Hemiplegia and hemiparesis following cerebral infarction affecting unspecified side (principal); I10 Essential (primary) hypertension ==

== ENCOUNTER 2023-10-17 09:23 | Outpatient (RCR) | payer BC, MEDICARE ==
[2023-10-17 09:40] VITALS: BP 151/82
== END 2023-10-17 09:50 | disposition home or self-care (01) ==
LOC: SDC 09:23
PROVIDERS: ATTEND Internal Medicine
DX: I87.2 Venous insufficiency (chronic) (peripheral) (principal)
CPT/HCPCS: 96523